=== PATIENT | male | born 1945 | race Caucasian/White ===

== ENCOUNTER 2017-12-23 10:40 | Emergency (ER) | payer OTHER ==
[2017-12-23 11:23] VITALS: RESP 18; TEMP 98; O2SAT 98
--- NOTE | 2017-12-23 11:43 | C.PDOC ---
History Of Present Illness 72 y/o male with history of Alzheimer and Dementia brought to ED by brother for evaluation of rash to back developed last night. Patient states he was unable to sleep secondary to rash and denies fever, chills, sob, chest pain, nausea, vomiting or any other complaints at this time. Time Seen by Provider: 12/23/17 11:00 Chief Complaint (Nursing): Abnormal Skin Integrity History Per: Patient History/Exam Limitations: no limitations Onset/Duration Of Symptoms: Days Current Symptoms Are (Timing): Still Present Past Medical History Vital Signs: Last Vital Signs Temp 98 F 12/23/17 10:53 Pulse 110 H 12/23/17 10:53 Resp 18 12/23/17 10:53 BP 119/77 12/23/17 10:53 Pulse Ox 98 12/23/17 10:53 - Medical History PMH: Alzheimer's Disease, CHF (?more than 20 yrs ago), Emphysema Denies: Chronic Kidney Disease Family History: States: Unknown Family Hx - Social History Hx Alcohol Use: No Hx Substance Use: No - Immunization History Hx Tetanus Toxoid Vaccination: No Hx Influenza Vaccination: No Hx Pneumococcal Vaccination: No Review Of Systems Constitutional: Negative for: Fever, Chills Gastrointestinal: Negative for: Nausea, Vomiting Skin: Positive for: Rash Neurological: Negative for: Weakness, Numbness Physical Exam - Physical Exam Appears: Non-toxic, No Acute Distress Skin: Warm, Dry, Rash (large hives and urticarial rash to back) Head: Atraumatic, Normacephalic Eye(s): bilateral: Normal Inspection Tongue: Normal Appearing, No Swelling Lips: Normal Appearing, No Swelling Throat: Normal, No Erythema, No Exudate Neck: Supple Cardiovascular: Rhythm Regular Respiratory: Normal Breath Sounds, No Rales, No Wheezing Gastrointestinal/Abdominal: Soft, No Tenderness, No Guarding, No Rebound Extremity: Normal ROM, Capillary Refill (<2 seconds), No Deformity Neurological/Psych: Oriented x3, Normal Speech, Normal Cognition, Normal Motor, Normal Sensation ED Course And Treatment O2 Sat by Pulse Oximetry: 98 (RA) Pulse Ox Interpretation: Normal Disposition - Disposition Referrals: Ina Malagon MD [Medical Doctor] - Disposition: HOME/ ROUTINE Disposition Time: 12:52 Condition: STABLE Additional Instructions: Follow up with the medical doctor within 1-2 days without fail. return if worsened. 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 - Scribe Statement The provider has reviewed the documentation as recorded by the Scribphill Olmso All medical record entries made by the Elizabethibphill were at my direction and personally dictated by me. I have reviewed the chart and agree that the record accurately reflects my personal performance of the history, physical exam, medical decision making, and the department course for this patient. I have also personally directed, reviewed, and agree with the discharge instructions and disposition.
[2017-12-23 12:31] VITALS: BP 136/72; PULSE 96
== END 2017-12-23 13:10 | disposition home or self-care (01) ==
LOC: C.ER 10:40
DX: L50.9 Urticaria, unspecified (principal)

== ENCOUNTER 2018-02-05 15:37 | Emergency (ER) | payer OTHER ==
[2018-02-05 15:46] VITALS: RESP 16; O2SAT 95
--- NOTE | 2018-02-05 15:58 | C.PDOC ---
History Of Present Illness 72 yo male c/o "a pill is stuck in my throat." Pt states that he took advil 45 min ago and feels that it is stuck in his throat. Denies chest pain, sob, lip or tongue swelling, difficulty breathing, abdominal pain, vomiting, fever, or rash. Time Seen by Provider: 02/05/18 15:51 Chief Complaint (Nursing): ENT Problem History Per: Patient, Family (brother) History/Exam Limitations: no limitations Onset/Duration Of Symptoms: Mins (45 min) Current Symptoms Are (Timing): Still Present Past Medical History Vital Signs: Last Vital Signs Temp 97.7 F 02/05/18 15:45 Pulse 108 H 02/05/18 15:45 Resp 16 02/05/18 15:45 BP 113/79 02/05/18 15:45 Pulse Ox 95 02/05/18 15:45 - Medical History PMH: Alzheimer's Disease, CHF (?more than 20 yrs ago), Emphysema Denies: Chronic Kidney Disease Family History: States: Unknown Family Hx - Social History Hx Alcohol Use: No (Ex Drinker) Hx Substance Use: No - Immunization History Hx Tetanus Toxoid Vaccination: No Hx Influenza Vaccination: No Hx Pneumococcal Vaccination: No Review Of Systems Except As Marked, All Systems Reviewed And Found Negative. ENT: Positive for: Other (FB sensation in throat) Physical Exam - Physical Exam Appears: Well, Non-toxic, No Acute Distress, Chronically Ill Skin: Normal Color, Warm, Dry Head: Atraumatic, Normacephalic Eye(s): bilateral: Normal Inspection, EOMI Nose: Normal Oral Mucosa: Moist Throat: Normal, No Erythema, No Exudate, No Drooling Neck: Normal, Normal ROM, Supple Chest: Symmetrical Cardiovascular: Rhythm Regular Respiratory: Normal Breath Sounds Gastrointestinal/Abdominal: Normal Exam, Soft, No Tenderness Back: Normal Inspection Extremity: Normal ROM Neurological/Psych: Oriented x3 ED Course And Treatment O2 Sat by Pulse Oximetry: 95 Progress Note: Pt was given water and with the first sip he states that he felt the pill go down and it is not stuck anymore. He drank the rest of the water without difficulty. He states he feels much better and has no complaints. Disposition - Disposition Disposition: HOME/ ROUTINE Disposition Time: 15:55 Condition: STABLE Additional Instructions: Follow up with your doctor in 1 -2 days. Return to ER if symptoms persist or worsen Instructions: Sore Throat, Adult (DC) Forms: [employer] (Singaporean) Print Language: DANISH - Clinical Impression Clinical Impression: Sensation of foreign body in esophagus
[2018-02-05 16:11] VITALS: BP 107/73; PULSE 102; TEMP 97.8
== END 2018-02-05 16:23 | disposition home or self-care (01) ==
LOC: C.ER 15:37
DX: R19.8 Other specified symptoms and signs involving the digestive system and abdomen (principal); G30.9 Alzheimer's disease, unspecified; I50.9 Heart failure, unspecified

== ENCOUNTER 2018-02-12 20:35 | Inpatient (IN) | payer OTHER ==
[2018-02-12] MEDS ORDERED: Iohexol 240 (50 ml) PO STA (22:15)
[2018-02-12] MEDS ORDERED: Iohexol 240 (50 ml) ONE (22:40)
[2018-02-12 22:55] LABS: BASO % 0.2 % (0.0-2.0); EOS % 0.1 % (0.0-4.0); HEMOGLOBIN 13.8 g/dL (12.0-18.0); LYMPH # 0.6 K/uL (1.0-4.3); LYMPH % 4.3 % (20.0-40.0); MEAN CELL VOLUME 89.3 fL (80.0-94.0); MEAN CORPUSCULAR HEMOGLOBIN 29.6 pg (27.0-31.0); MEAN CORPUSCULAR HGB CONC 33.1 g/dL (33.0-37.0); MEAN PLATELET VOLUME 7.6 fL (7.2-11.7); MONO # 0.7 K/uL (0.0-0.8); MONO % 4.7 % (0.0-10.0); NEUT # 13.4 K/uL (1.8-7.0); NEUT % 90.7 % (50.0-75.0); NRBC % 0.1 % (0.0-2.0); PLATELET COUNT 302 K/uL (130-400); RBC 4.69 Mil/uL (4.40-5.90); RED CELL DISTRIBUTION WIDTH 14.9 % (11.5-14.5); WHITE BLOOD COUNT 14.7 K/uL (4.8-10.8)
[2018-02-12] MEDS ORDERED: Piperacillin/Tazobact 3.375 gm 100 ML IV STA (23:00)
--- NOTE | 2018-02-12 23:07 | C.PDOC ---
History Of Present Illness 72 year old male presents to the ER with a complaint of lower abdominal pain for the past 3 days associated with nausea. Patient states the symptoms were initially intermittent but have now worsened. Denies fever, vomiting, change in bowel habits, or difficulty urinating. Time Seen by Provider: 02/12/18 21:57 Chief Complaint (Nursing): Abdominal Pain History Per: Patient History/Exam Limitations: no limitations Onset/Duration Of Symptoms: Days (3), Intermittent Episodes Current Symptoms Are (Timing): Worse Location Of Pain/Discomfort: Other (Lower) Quality Of Discomfort: Unable To Describe Associated Symptoms: Nausea. denies: Fever, Vomiting, Diarrhea, Constipation, Urinary Symptoms Exacerbating Factors: None Alleviating Factors: None Recent travel outside of the [place]: No Past Medical History Reviewed: Historical Data, Nursing Documentation, Vital Signs Vital Signs: Last Vital Signs Temp 97.9 F 02/12/18 21:32 Pulse 113 H 02/12/18 21:32 Resp 19 02/12/18 21:32 BP 102/63 02/12/18 21:32 Pulse Ox 100 02/12/18 21:32 - Medical History PMH: Alzheimer's Disease, CHF (?more than 20 yrs ago), Emphysema Denies: Chronic Kidney Disease Family History: States: Unknown Family Hx - Social History Hx Alcohol Use: No (Ex Drinker) Hx Substance Use: No - Immunization History Hx Tetanus Toxoid Vaccination: No Hx Influenza Vaccination: No Hx Pneumococcal Vaccination: No Review Of Systems Constitutional: Negative for: Fever, Chills Cardiovascular: Negative for: Chest Pain, Palpitations Respiratory: Negative for: Cough, Shortness of Breath Gastrointestinal: Positive for: Nausea, Abdominal Pain. Negative for: Vomiting, Diarrhea, Constipation Genitourinary: Negative for: Other (Difficulty urinating) Neurological: Negative for: Weakness, Numbness Physical Exam - Physical Exam Appears: Non-toxic Skin: Normal Color, Warm, Dry Head: Atraumatic, Normacephalic Eye(s): bilateral: Normal Inspection Oral Mucosa: Moist Neck: Normal, Supple Chest: Symmetrical, No Tenderness Cardiovascular: Rhythm Regular Respiratory: Normal Breath Sounds, No Rales, No Rhonchi, No Wheezing Gastrointestinal/Abdominal: Soft, Tenderness (Lower, mostly midline), No Guarding, No Rebound Back: No CVA Tenderness Neurological/Psych: Oriented x3, Normal Speech ED Course And Treatment - Laboratory Results Result Diagrams: 02/12/18 22:50 02/12/18 22:50 Lab Interpretation: Abnormal (WBC 14.7 with left shift, Na 129, Cl 90, Bili 1.9 Lipase 12) O2 Sat by Pulse Oximetry: 100 (room air) Pulse Ox Interpretation: Normal Progress Note: CT abd/pel, blood work, and urinalysis ordered. Morphine, Zosyn, and Zofran ordered. Disposition - Disposition Disposition Time: 00:42 Condition: STABLE Forms: [employer] (Kittitian) - Clinical Impression Clinical Impression: Abdominal pain - Scribe Statement The provider has reviewed the documentation as recorded by the Scribe Ramírez Lozano All medical record entries made by the Scribe were at my direction and personally dictated by me. I have reviewed the chart and agree that the record accurately reflects my personal performance of the history, physical exam, medical decision making, and the department course for this patient. I have also personally directed, reviewed, and agree with the discharge instructions and disposition. Physician Patient Turnover Patient Signed Over To: Tutu Keen Handoff Comments: Pending CT
[2018-02-12 23:09] LABS: BLOOD UREA NITROGEN 6 mg/dL (9-20); CALCIUM 8.1 mg/dl (8.6-10.4); GFR NON-AFRICAN AMERICAN > 60; LIPASE 12 U/L (23-300)
[2018-02-12 23:11] LABS: ALB/GLOB RATIO 0.8 (1.0-2.1); ALT/SGPT 12 U/L (21-72); AST/SGOT 44 U/L (17-59)
[2018-02-12 23:15] LABS: LYMPHOCYTE 5 % (20-40); MONOCYTE 3 % (0-10); NEUTROPHIL 92 % (50-75); TOTAL CELLS COUNTED 100
[2018-02-12 23:16] LABS: PLATELET ESTIMATE NORMAL (NORMAL)
[2018-02-12] MEDS ORDERED: Iodixanol 320 MG/ML 100 ML BOTTLE IV ONE (23:43)
[2018-02-12 23:47] LABS: SQUAMOUS EPITHIAL < 1 /hpf (0-5); URINE AMORPHOUS SEDIMENT FEW /ul (<OCC); URINE BACTERIA RARE (<OCC); URINE BILIRUBIN NEGATIVE (NEGATIVE); URINE BLOOD NEGATIVE (NEGATIVE); URINE CLARITY Hazy (Clear); URINE COLOR Yellow (YELLOW); URINE GLUCOSE (UA) NORMAL (Normal); URINE LEUKOCYTE ESTERASE NEG Leu/uL (Negative); URINE PROTEIN 1+ mg/dL (NEGATIVE); URINE UROBILINOGEN NORMAL mg/dL (0.2-1.0)
[2018-02-12] MEDS ORDERED: Piperacillin/Tazobact 3.375 gm 100 ML IVPB ONE (23:59)
[2018-02-13] MEDS ORDERED: HYDROmorphone 1 mg/ml ISec IVP PRN (02:42)
[2018-02-13] MEDS ORDERED: Dextrose 5%/0.45% NS 1,000 ML IV SCH (02:45)
[2018-02-13] MEDS ORDERED: Dextrose 5%-0.225% NS 1,000 ML IV ONE (02:59)
--- NOTE | 2018-02-13 05:56 | CP.PCM.CON ---
History of Present Illness - History of Present Illness History of Present Illness: General surgery consult note for Dr. Boothe Consulted for possible cholecystitis HPI limited--patient poor historian Pt is a 72M with PMH of alzheimers and "prostate problem" with 3 days of lower abdominal pain who presented to the ED yesterday. Patient states pain is not associated with eating food. Did not improve with pepto-bismol. Also reports back pain. Denies any nausea, vomiting, diarrhea, fevers, chills, melena, hematochezia, dysuria, hematuria last BM was 2 days ago and was normal in color and caliber, is passing gas. PMH: alzheimers, "prostate problem", emphysema PSH: left shoulder surgery ALL: NKDA Review of Systems - Review of Systems All systems: reviewed and no additional remarkable complaints except (as per HPI) Past Patient History - Past Medical History & Family History Past Medical History?: Yes - Past Social History Smoking Status: Former Smoker - CARDIAC Hx Congestive Heart Failure: Yes (?more than 20 yrs ago) - PULMONARY Hx Emphysema: Yes - NEUROLOGICAL Hx Alzheimer's Disease: Yes - HEENT Hx HEENT Problems: No - RENAL Hx Chronic Kidney Disease: No - ENDOCRINE/METABOLIC Hx Endocrine Disorders: No - HEMATOLOGICAL/ONCOLOGICAL Hx Blood Disorders: No - INTEGUMENTARY Hx Dermatological Problems: No - MUSCULOSKELETAL/RHEUMATOLOGICAL Hx Musculoskeletal Disorders: Yes Hx Falls: Yes Hx Unsteady Gait: Yes - GASTROINTESTINAL Hx Gastrointestinal Disorders: No - GENITOURINARY/GYNECOLOGICAL Hx Genitourinary Disorders: No - PSYCHIATRIC Hx Substance Use: No - SURGICAL HISTORY Hx Surgeries: Yes Hx Orthopedic Surgery: Yes (LEFT ARM) - ANESTHESIA Hx Anesthesia: Yes Hx Anesthesia Reactions: No Hx Malignant Hyperthermia: No Meds Allergies/Adverse Reactions: Allergies Allergy/AdvReac Type Severity Reaction Status Date / Time No Known Allergies Allergy Verified 02/12/18 21:31 - Medications Medications: Current Medications Hydromorphone HCl (Dilaudid) 1 mg IVP Q4H PRN PRN Reason: Pain, moderate (4-7) Last Admin: 02/13/18 05:42 Dose: 1 mg Ceftriaxone Sodium 1 gm/ (Dextrose) 100 mls @ 50 mls/30 min IVPB DAILY VELMA; Protocol Dextrose/Sodium Chloride (Dextrose 5%/0.45% Ns 1000 Ml) 1,000 mls @ 100 mls/hr IV .Q10H VELMA Last Admin: 02/13/18 03:00 Dose: 100 mls/hr Physical Exam - Constitutional Appears: Well, Non-toxic, Agitated - Head Exam Head Exam: ATRAUMATIC, NORMOCEPHALIC - Eye Exam Eye Exam: Normal appearance. absent: Conjunctival injection, Scleral icterus - ENT Exam ENT Exam: Mucous Membranes Moist, Normal Oropharynx - Respiratory Exam Respiratory Exam: NORMAL BREATHING PATTERN. absent: Accessory Muscle Use, Respiratory Distress - Cardiovascular Exam Cardiovascular Exam: RRR - GI/Abdominal Exam GI & Abdominal Exam: Soft, Tenderness (mild tenderness to R and left of umbilicus). absent: Distended, Rebound - Extremities Exam Extremities exam: Negative for: calf tenderness, pedal edema, pedal pulses prese nt - Neurological Exam Neurological exam: Alert, Oriented x3 - Psychiatric Exam Psychiatric exam: Normal Affect, Normal Mood - Skin Skin Exam: Dry, Normal Color, Warm Results - Vital Signs Recent Vital Signs: Last Vital Signs Temp 97.9 F 02/12/18 21:32 Pulse 86 02/13/18 05:01 Resp 30 H 02/13/18 05:01 BP 105/67 02/13/18 05:01 Pulse Ox 100 02/13/18 05:01 - Labs Result Diagrams: 02/13/18 07:18 02/12/18 22:50 Labs: Laboratory Results - last 24 hr 02/12/18 02/12/18 02/12/18 22:15 22:50 22:50 WBC 14.7 H D RBC 4.69 Hgb 13.8 Hct 41.8 MCV 89.3 D MCH 29.6 MCHC 33.1 RDW 14.9 H Plt Count 302 MPV 7.6 Neut % (Auto) 90.7 H Lymph % (Auto) 4.3 L [place] % (Auto) 4.7 Eos % (Auto) 0.1 Baso % (Auto) 0.2 Neut # (Auto) 13.4 H Lymph # (Auto) 0.6 L [place] # (Auto) 0.7 Eos # (Auto) 0.0 Baso # (Auto) 0.0 Neutrophils % (Manual) 92 H Lymphocytes % (Manual) 5 L Monocytes % (Manual) 3 Platelet Estimate Normal RBC Morphology Normal Sodium 129 L Potassium 5.0 Chloride 90 L Carbon Dioxide 27 Anion Gap 16 BUN 6 L Creatinine 0.4 L Est GFR ( Amer) > 60 Est GFR (Non-Af Amer) > 60 Random Glucose 135 H Calcium 8.1 L Total Bilirubin 1.9 H AST 44 ALT 12 L D Alkaline Phosphatase 116 Total Protein 8.8 H Albumin 4.0 Globulin 4.8 H Albumin/Globulin Ratio 0.8 L Lipase 12 L Urine Color Yellow Urine Clarity Hazy Urine pH 7.0 Ur Specific [place] 1.014 Urine Protein 1+ H Urine Glucose (UA) Normal Urine Ketones Negative Urine Blood Negative Urine Nitrate Negative Urine Bilirubin Negative Urine Urobilinogen Normal Ur Leukocyte Esterase Neg Urine WBC (Auto) 3 Urine RBC (Auto) 4 H Ur Squamous Epith Cells < 1 Amorphous Sediment Few H Urine Bacteria Rare Assessment & Plan - Assessment and Plan (Free Text) Assessment: 72M with abdominal pain and cholelithiasis, possible choledocholithiasis Plan: F/U US and MRCP Trend CBC and CMP stool softeners Recommend a GI consult for possible choledocholithiasis further recommendations pending results of tests Encourage ambulation Discussed with Dr. Boothe, who agrees with above Susi Bills, PGY2
[2018-02-13 07:27] LABS: BASO # 0.1 K/uL (0.0-0.2); BASO % 0.8 % (0.0-2.0); EOS % 0.1 % (0.0-4.0); HEMOGLOBIN 12.6 g/dL (12.0-18.0); LYMPH # 0.6 K/uL (1.0-4.3); LYMPH % 4.9 % (20.0-40.0); MEAN CORPUSCULAR HEMOGLOBIN 30.3 pg (27.0-31.0); MEAN CORPUSCULAR HGB CONC 34.1 g/dL (33.0-37.0); MEAN PLATELET VOLUME 7.6 fL (7.2-11.7); MONO # 0.7 K/uL (0.0-0.8); MONO % 5.4 % (0.0-10.0); NEUT % 88.8 % (50.0-75.0); PLATELET COUNT 259 K/uL (130-400); RBC 4.14 Mil/uL (4.40-5.90); RED CELL DISTRIBUTION WIDTH 14.6 % (11.5-14.5); WHITE BLOOD COUNT 12.4 K/uL (4.8-10.8)
[2018-02-13 08:14] LABS: ALB/GLOB RATIO 0.8 (1.0-2.1); ALBUMIN 3.4 g/dL (3.5-5.0); ALT/SGPT 33 U/L (21-72); AST/SGOT 66 U/L (17-59); BILIRUBIN,DIRECT 0.4 mg/dL (0.0-0.4); BLOOD UREA NITROGEN 9 mg/dL (9-20); CALCIUM 7.8 mg/dl (8.6-10.4); GFR NON-AFRICAN AMERICAN > 60
[2018-02-13] MEDS: Sodium Chloride 0.9% 1,000 ML IV SCH ×2 (08:21→21:27)
[2018-02-13 09:12] LABS: BANDS 1 % (0-2); LYMPHOCYTE 6 % (20-40); MONOCYTE 3 % (0-10); NEUTROPHIL 90 % (50-75); PLATELET ESTIMATE NORMAL (NORMAL); TOTAL CELLS COUNTED 100
[2018-02-13] MEDS: POLYETHYLENE GLYCOL 3350 17 GM/Dose PACKET PO SCH (09:15)
[2018-02-13] MEDS ORDERED: cefTRIAXone IV 1 gm in Dextros 1 GM in Dextrose 5% In Water 50 ML IVPB SCH (10:00)
--- NOTE | 2018-02-13 11:00 | US ---
Date of service: 02/13/2018 HISTORY: abdominal pain, cholelithiasis, dilated CBD COMPARISON: No prior ultrasound available for direct comparison. TECHNIQUE: Sonographic evaluation of the right upper quadrant of the abdomen. FINDINGS: Examination markedly limited, technically difficult study. LIVER: Measures 11.8 cm in length. Echogenic liver may be seen in setting of hepatic parenchymal disease or fatty infiltration. No focal hepatic mass identified. The main portal vein appears patent with normal directional flow. No intrahepatic bile duct dilatation. GALLBLADDER: Gallstones. No gallbladder wall thickening or pericholecystic edema. Negative sonographic Lee's sign as assessed by the grid trimmer. COMMON BILE DUCT: Measures 4 mm. PANCREAS: Not well-visualized. RIGHT KIDNEY: Measures approximately 10.1 x 4.6 x 5.0 cm. No obstructing calculus or hydronephrosis identified. AORTA: Not well-visualized. IVC: Not well-visualized. OTHER FINDINGS: None . IMPRESSION: Markedly limited study. Echogenic liver may be seen in setting of hepatic parenchymal disease or fatty infiltration. Cholelithiasis.
--- NOTE | 2018-02-13 11:40 | CT ---
Date of service: 02/13/2018 PROCEDURE: CT Abdomen and Pelvis HISTORY: Abdominal pain. COMPARISON: None. TECHNIQUE: Contiguous axial images of the abdomen and pelvis performed following oral and intravenous injection of approximately 100 cc Visipaque 320. Additional 2D sagittal and coronal reformats generated. Radiation dose: Total exam DLP = 532.01 mGy-cm. This CT exam was performed using one or more of the following dose reduction techniques: Automated exposure control, adjustment of the mA and/or kV according to patient size, and/or use of iterative reconstruction technique. FINDINGS: LOWER THORAX: There are patchy ground-glass opacities and probably some concomitant atelectasis seen in both lung bases including the lingular region. Probable fibrosis and or scarring in the right middle lobe with what appears represent some paraseptal cystic changes; rule out paraseptal emphysema. No evidence of basilar pneumothorax. No significant effusion. Heart size is mildly enlarged. No significant pericardial effusion. Ascending thoracic aorta measures approximately 3.5 cm and descending thoracic aorta measures approximately 2.6 cm. Pulmonary trunk measures approximately 3.0 cm There is a small hiatal hernia with slight wall thickening of distal esophagus likely due to protrusion gastric mucosa. LIVER: Liver exhibits normal size of with mild fatty hepatic infiltration. No obvious masses collections or calcifications. GALLBLADDER AND BILE DUCTS: Gallbladder is moderately distended. Multiple intraluminal gallbladder calculi. There is dilatation of the common bile duct with what appears to represent a very tiny nonobstructing calculus at the junction of the common bile duct and pancreatic duct. PANCREAS: The pancreas is atrophic. Pancreatic duct is visible though does not appear significantly dilated. There is a small approximately 9.8 x 4.3 mm elliptical shaped low-attenuation focus within the posterior inferior aspect of the mid body of the pancreas which is partially exophytic best seen on axial series 3, image number 72 through 75. Hounsfield units in the negative low 30s suggesting fat however the possibility of volume a small cystic lesion with adjacent volume averaging not excluded. Consider follow-up pre and post-contrast MRI of the pancreas could be performed to exclude the possibility of an underlying cyst or possibly cystic neoplasm (benign and/or malignant) which cannot be excluded on this study. SPLEEN: The spleen exhibits normal size and attenuation pattern without mass collection or calcification. Suspect small splenule adjacent to the anterior inferior margin of the main body of the spleen.. ADRENALS: No adrenal lesions. KIDNEYS AND URETERS: The kidneys demonstrate symmetric nephrograms. No evidence of nephrolithiasis or hydronephrosis. No obvious renal masses or collections BLADDER: Urinary bladder is incompletely distended which in part accounts for thick-walled appearance. Muscular hypertrophy presumably contributes. Correlation with urinalysis to exclude cystitis or other intrinsic wall lesion. REPRODUCTIVE: Prostate gland measures approximately 3.3 cm in transverse dimension. APPENDIX: Normal-appearing appendix best seen on coronal sequence image number [id number] and axial series 3 image number [id number]. No periappendiceal inflammatory changes. BOWEL: Evaluation of the bowel is somewhat limited due to incomplete opacification. The stomach is distended with oral contrast material small amount of food debris and moderate amount of air. Visualized loops of small bowel exhibit relatively normal contour and caliber. No evidence of acute mechanical small bowel obstruction. Moderate amount of stool seen within the cecum and proximal ascending colon with moderate amount of air seen throughout the remaining colon. No definitive evidence of abnormal mural wall thickening. 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 PERITONEUM: Unremarkable. No fluid collection. No free air. LYMPH NODES: No significant/bulky adenopathy. VASCULATURE: Unremarkable. No aortic aneurysm. Mild aortic atherosclerotic calcification or mural plaque present. BONES: Diffuse demineralization. Chronic appearing anterior wedge buckling of the posterior cortex. Mild multilevel degenerative spondylosis of the lower thoracic and lumbar spine. OTHER FINDINGS: None. IMPRESSION: Cholelithiasis with dilatation of the common bile duct and what appears represent least 1 nonobstructing tiny calculus within the region of the junction of the common bile duct and pancreatic duct. Gallbladder is distended. Small elliptical shaped low-attenuation focus posterior inferior margin mid body of the atrophic pancreas which exhibits Hounsfield units in the -30 suggesting fat however possibility of a small cystic lesion (benign and/or malignant with surrounding volume averaging artifact cannot be completely excluded. Consider follow-up of pre and post-contrast MRI of the pancreas. The mild fatty hepatic infiltration. Moderate amount of stool seen within the cecum and proximal ascending colon suggesting mild constipation.. Ground-glass opacities and atelectasis both lung bases. Note that this report was placed in PA review folder for follow
[2018-02-13] MEDS ORDERED: Cefepime IV 1 gm in Dextrose 1 GM/50 ML BAG IVPB SCH (14:30)
--- NOTE | 2018-02-13 14:30 | CP.PCM.HP ---
History of Present Illness - History of Present Illness History of Present Illness: COMPREHENSIVE CONSULT HPI Patient is admitted for emergency room complaining of abdominal pain mostly on the lower side. In the emergency room patient had abdominal CT which showed gallstones with no evidence of cholecystitis. The ER physician also informed me that there was a CAT scan done of the chest which showed bronchopneumonia. Currently I cannot locate this study. Patient history of Alzheimers disease and full detailed history is and past history is not available apparently patient has a history of prostate problems. Patient has been having abdominal pain for the last 3 days which is increased in intensity or severity there is no definite nausea vomiting diarrhea or hematemesis or melena PAST HIST. PERSONAL HIST: Smoking. N Alcohol. N Allergy N Travel_- . FAMILY HIST : ROS : Constitutional: Negative for weight change, chills, night sweats, fatigue and usage of assist device. Eyes: Negative for redness, swelling, itching, discharge, vision changes, blurry vision, double vision, glaucoma, cataracts, Ears: Negative for hearing loss, ringing, , tinnitus, vertigo Nose: Negative for rhinorrhea, stuffiness, sniffing, itching, postnasal drip, discoloration, nasal congestion and epistaxis. Throat: Negative for throat clearing, sore throat, hoarseness, difficulty swallowing and difficulty speaking. Respiratory: Negative for cough, , sputum production, chest tightness, wheezing, pleuritic chest pain ,daytime somnolence, chronic cough, hemoptysis, snoring at night, Cardiovascular: Negative for chest pain, palpitations, orthopnea, PND, Edema of legs, leg cramps, angina, claudication, , irregular heartbeat, Neurology: Negative for irritability, muscle weakness, numbness and tingling, seizures, tremors, migraines, slurred speech, syncope, memory loss, mood changes, recurrent headaches Gastrointestinal: Negative for difficulty swallowing, diarrhea, constipation, black stools, rectal bleeding, nausea, flatulence, reflux, poor appetite, changes in bowel habits, Genitourinary: Negative for frequent urination, hematuria, discharge, incontinence, urinary retention, frequent UTI, Psychiatric: Negative for depression, anxiety/panic, suicidal tendencies, Musculoskeletal: Negative for swollen joints, back pain, , neck pain, morning stiffness of joints, . Skin: Negative for rash, ulcers, itching, dry skin and pigmented lesions. P/E: Constitutional: Appears stated age and in no apparent distress. Head: Normocephalic. Ears: External ear canals patent without inflammation. Tympanic membranes intact with normal light reflex and landmark. Eyes: Pupils are central, bilaterally equal, symmetrical and reacts to light with normal movements and no icterus or pallor. Nose: External nares are patent. Mucosa is pink Mouth-Throat: Good general appearance and condition. No post-pharyngeal/oropharyngeal erythema and tonsillar hypertrophy. Good dental hygiene. Neck-Lymphatic: Neck is supple with normal ROM, no thyromegaly, lymph nodes or masses. JVD is normal with no carotid bruit. Lungs: Clear to percussion and auscultation with bilateral normal air entry. Cardiovascular: S1 and S2 are normal with no murmurs, gallops and rub. GI Exam: No hepatomegaly. Abdomen is soft and non-tender. No Organomegaly , masses or hernias are evident and bowel sounds are normal and active. Neurology: Higher function and all cranial nerves intact, with no gross motor or sensory deficit. Superficial and deep reflexes are normal with downwards planters. No cerebellar deficit with normal gait. Musculoskeletal: No tender spots with normal curvature of the spine with no swelling or restricted ROM of the small and large joints. Extremities: Homans sign absent. Intact pulses with no pitting edema, calf tenderness or skin color changes. Skin: No rash, eruptions or abnormal skin pigmentation LAB/RADIOLOGY: ASSESMENT : Acute on chronic gallbladder disease COPD with possible respiratory infection Dementia with Alzheimers PLAN: See orders. Present on Admission - Present on Admission Any Indicators Present on Admission: No Past Patient History - Past Medical History & Family History Past Medical History?: Yes - Past Social History Smoking Status: Former Smoker - CARDIAC Hx Congestive Heart Failure: Yes (?more than 20 yrs ago) - PULMONARY Hx Emphysema: Yes - NEUROLOGICAL Hx Alzheimer's Disease: Yes - HEENT Hx HEENT Problems: No - RENAL Hx Chronic Kidney Disease: No - ENDOCRINE/METABOLIC Hx Endocrine Disorders: No - HEMATOLOGICAL/ONCOLOGICAL Hx Blood Disorders: No - INTEGUMENTARY Hx Dermatological Problems: No - MUSCULOSKELETAL/RHEUMATOLOGICAL Hx Musculoskeletal Disorders: Yes Hx Falls: Yes Hx Unsteady Gait: Yes - GASTROINTESTINAL Hx Gastrointestinal Disorders: No - GENITOURINARY/GYNECOLOGICAL Hx Genitourinary Disorders: No - PSYCHIATRIC Hx Substance Use: No - SURGICAL HISTORY Hx Surgeries: Yes Hx Orthopedic Surgery: Yes (LEFT ARM) - ANESTHESIA Hx Anesthesia: Yes Hx Anesthesia Reactions: No Hx Malignant Hyperthermia: No Meds Allergies/Adverse Reactions: Allergies Allergy/AdvReac Type Severity Reaction Status Date / Time No Known Allergies Allergy Verified 02/12/18 21:31 Results - Vital Signs Recent Vital Signs: Last Vital Signs Temp 98.4 F 02/13/18 08:30 Pulse 89 02/13/18 08:30 Resp 20 02/13/18 08:30 BP 121/72 02/13/18 08:30 Pulse Ox 96 02/13/18 08:30 - Labs Result Diagrams: 02/13/18 07:18 02/13/18 11:30 Labs: Laboratory Results - last 24 hr 02/12/18 02/12/18 02/12/18 22:15 22:50 22:50 WBC 14.7 H D RBC 4.69 Hgb 13.8 Hct 41.8 MCV 89.3 D MCH 29.6 MCHC 33.1 RDW 14.9 H Plt Count 302 MPV 7.6 Neut % (Auto) 90.7 H Lymph % (Auto) 4.3 L [place] % (Auto) 4.7 Eos % (Auto) 0.1 Baso % (Auto) 0.2 Neut # (Auto) 13.4 H Lymph # (Auto) 0.6 L [place] # (Auto) 0.7 Eos # (Auto) 0.0 Baso # (Auto) 0.0 Neutrophils % (Manual) 92 H Band Neutrophils % Lymphocytes % (Manual) 5 L Monocytes % (Manual) 3 Platelet Estimate Normal RBC Morphology Normal Sodium 129 L Potassium 5.0 Chloride 90 L Carbon Dioxide 27 Anion Gap 16 BUN 6 L Creatinine 0.4 L Est GFR ( Amer) > 60 Est GFR (Non-Af Amer) > 60 Random Glucose 135 H Calcium 8.1 L Magnesium Total Bilirubin 1.9 H Direct Bilirubin AST 44 ALT 12 L D Alkaline Phosphatase 116 Total Protein 8.8 H Albumin 4.0 Globulin 4.8 H Albumin/Globulin Ratio 0.8 L Lipase 12 L Urine Color Yellow Urine Clarity Hazy Urine pH 7.0 Ur Specific [place] 1.014 Urine Protein 1+ H Urine Glucose (UA) Normal Urine Ketones Negative Urine Blood Negative Urine Nitrate Negative Urine Bilirubin Negative Urine Urobilinogen Normal Ur Leukocyte Esterase Neg Urine WBC (Auto) 3 Urine RBC (Auto) 4 H Ur Squamous Epith Cells < 1 Amorphous Sediment Few H Urine Bacteria Rare 02/13/18 02/13/18 02/13/18 07:18 07:18 11:30 WBC 12.4 H RBC 4.14 L Hgb 12.6 Hct 36.8 MCV 89.0 MCH 30.3 MCHC 34.1 RDW 14.6 H Plt Count 259 MPV 7.6 Neut % (Auto) 88.8 H Lymph % (Auto) 4.9 L [place] % (Auto) 5.4 Eos % (Auto) 0.1 Baso % (Auto) 0.8 Neut # (Auto) 11.0 H Lymph # (Auto) 0.6 L [place] # (Auto) 0.7 Eos # (Auto) 0.0 Baso # (Auto) 0.1 Neutrophils % (Manual) 90 H Band Neutrophils % 1 Lymphocytes % (Manual) 6 L Monocytes % (Manual) 3 Platelet Estimate Normal RBC Morphology Sodium 127 L Potassium 3.4 L 3.5 L Chloride 89 L Carbon Dioxide 31 H Anion Gap 10 BUN 9 Creatinine 0.4 L Est GFR ( Amer) > 60 Est GFR (Non-Af Amer) > 60 Random Glucose 138 H Calcium 7.8 L Magnesium 1.6 Total Bilirubin 1.9 H Direct Bilirubin 0.4 AST 66 H D ALT 33 Alkaline Phosphatase 156 H D Total Protein 7.4 Albumin 3.4 L Globulin 4.0 H Albumin/Globulin Ratio 0.8 L Lipase Urine Color Urine Clarity Urine pH Ur Specific [place] Urine Protein Urine Glucose (UA) Urine Ketones Urine Blood Urine Nitrate Urine Bilirubin Urine Urobilinogen Ur Leukocyte Esterase Urine WBC (Auto) Urine RBC (Auto) Ur Squamous Epith Cells Amorphous Sediment Urine Bacteria
--- NOTE | 2018-02-13 14:33 | CP.PCM.CON ---
History of Present Illness - History of Present Illness History of Present Illness: HPI: Pt is a 72M with PMH of COPD, alzheimers and "prostate problem" with 3 days of lower abdominal pain who presented to the ED on02/13/18. Patient states pain is not associated with eating food. Did not improve with pepto-bismol. Also reports back pain. Denies any nausea, vomiting, diarrhea, fevers, chills, melena, hematochezia, dysuria, hematuria last BM was 2 days ago and was normal in color and caliber, is passing gas. Patient had leukocytosis on admission with WBC count of more than 14,000. Patient was also noted to have elevated liver function tests . On repeat testing today AST has increased to 66 with ALT of 33 and alkaline phosphatase of 156. Bilirubin is 1.9 unchanged. Patient underwent ultrasound of the gallbladder which showed fatty infiltration of the liver with cholelithiasis. CT scan of the abdomen and pelvis showed gallstones, common bile duct dilated with small stone in the distal common bile duct, possible cystic pancreatic lesion. Infectious disease consultation requested by PMD as CT scan also showed some groundglass opacities and infiltrates. Chest x-ray obtained today shows left middle lobe and left lower lobe alveolar infiltrates with small bilateral pleural effusions. Patient was empirically placed on ceftriaxone 1 g once a day. PATIENT PRESENTLY RESTING IN BED. C/O INTERMITTENT COUGH WITH NO EXPECTORATION. PATIENT DENIES ANY PREVIOUS HISTORY TB. PATIENT DENIES ANY RECENT TRAVEL. PATIENT IS VERY VAGUE ABOUT HIS HISTORY.CONTINUES TO COMPLAIN OF LOWER ABDOMINAL PAIN, MAINLY RLQ/SUPRAPUBIC. PATIENT DENIES ANY DYSURIA OR HEMATURIA. pATIENT IS VOIDING ON HIS OWN SMALL AMOUNTS OF URINE. PMH: alzheimers, "prostate problem", emphysema PSH: left shoulder surgery ALL: NKDA Review of Systems - Constitutional Constitutional: absent: Chills, Fever, Night Sweats - EENT Nose/Mouth/Throat: absent: Nasal Discharge, Mouth Lesions, Sore Throat, Neck P ain - Cardiovascular Cardiovascular: absent: Chest Pain - Respiratory Respiratory: Cough (DRY COUGH INTERMITTENTLY.), Dyspnea on Exertion. absent: Hemoptysis - Gastrointestinal Gastrointestinal: Abdominal Pain (RIGHT LOW QUADRANT AND SUPRAPUBIC.). absent: Constipation, Diarrhea, Nausea, Vomiting - Genitourinary Genitourinary: Voiding Freq/Small Amts. absent: Dysuria - Neurological Neurological: Memory Loss. absent: Headaches - Hematologic/Lymphatic Hematologic: As Per HPI. absent: Lymphadenopathy Past Patient History - Past Medical History & Family History Past Medical History?: Yes - Past Social History Smoking Status: Former Smoker - CARDIAC Hx Congestive Heart Failure: Yes (?more than 20 yrs ago) - PULMONARY Hx Emphysema: Yes - NEUROLOGICAL Hx Alzheimer's Disease: Yes - HEENT Hx HEENT Problems: No - RENAL Hx Chronic Kidney Disease: No - ENDOCRINE/METABOLIC Hx Endocrine Disorders: No - HEMATOLOGICAL/ONCOLOGICAL Hx Blood Disorders: No - INTEGUMENTARY Hx Dermatological Problems: No - MUSCULOSKELETAL/RHEUMATOLOGICAL Hx Musculoskeletal Disorders: Yes Hx Falls: Yes Hx Unsteady Gait: Yes - GASTROINTESTINAL Hx Gastrointestinal Disorders: No - GENITOURINARY/GYNECOLOGICAL Hx Genitourinary Disorders: No - PSYCHIATRIC Hx Substance Use: No - SURGICAL HISTORY Hx Surgeries: Yes Hx Orthopedic Surgery: Yes (LEFT ARM) - ANESTHESIA Hx Anesthesia: Yes Hx Anesthesia Reactions: No Hx Malignant Hyperthermia: No Meds Allergies/Adverse Reactions: Allergies Allergy/AdvReac Type Severity Reaction Status Date / Time No Known Allergies Allergy Verified 02/12/18 21:31 - Medications Medications: Current Medications Docusate Sodium (Colace) 100 mg PO BID [facility] Last Admin: 02/13/18 09:15 Dose: Not Given Sodium Chloride (Sodium Chloride 0.9%) 1,000 mls @ 100 mls/hr IV .Q10H [facility] Last Admin: 02/13/18 08:21 Dose: 100 mls/hr Potassium Chloride (Potassium Chloride 20 Meq/100 Ml) 20 meq in 100 mls @ 50 mls/hr IVPB ONCE ONE Stop: 02/13/18 15:29 Last Admin: 02/13/18 14:00 Dose: 50 mls/hr Cefepime HCl (Maxipime Iv 1 Gm Premix) 1 gm in 50 mls @ 100 mls/hr IVPB Q12H [facility]; Protocol Azithromycin 500 mg/ Sodium (Chloride) 250 mls @ 250 mls/hr IVPB DAILY [facility]; Protocol Influenza Virus Vaccine (Fluzone Quad [id number]) 60 mcg IM .ONCE ONE Stop: 02/15/18 10:01 Pneumococcal Polyvalent Vaccine (Pneumovax 23 Vaccine) 0.5 ml IM .ONCE ONE Stop: 02/15/18 10:01 Polyethylene Glycol (Miralax) 17 gm PO DAILY [facility] Last Admin: 02/13/18 09:15 Dose: Not Given Physical Exam - Constitutional Appears: No Acute Distress, Older Than Stated Age, Cachectic - Head Exam Head Exam: NORMAL INSPECTION - Eye Exam Eye Exam: EOMI, PERRL, Scleral icterus - ENT Exam ENT Exam: Normal Oropharynx - Neck Exam Neck exam: Positive for: Normal Inspection. Negative for: Lymphadenopathy - Respiratory Exam Respiratory Exam: Rhonchi (BILATERAL RHONCHI LEFT-SIDED > LEFT.), NORMAL BREATHING PATTERN - Cardiovascular Exam Cardiovascular Exam: Tachycardia, REGULAR RHYTHM, +S1, +S2 - GI/Abdominal Exam GI & Abdominal Exam: Normal Bowel Sounds, Soft (RIGHT LOW QUADRANT AND SUPR APUBIC REGION.), Tenderness. absent: Guarding (FOX SIGN ABSENT.), Mass - Extremities Exam Extremities exam: Positive for: pedal pulses present. Negative for: calf tenderness, pedal edema - Neurological Exam Neurological exam: Alert, CN II-XII Intact, Oriented x3, Reflexes Normal - Psychiatric Exam Psychiatric exam: Normal Mood - Skin Skin Exam: Normal Color, Warm Results - Vital Signs Recent Vital Signs: Last Vital Signs Temp 98.4 F 02/13/18 08:30 Pulse 89 02/13/18 08:30 Resp 20 02/13/18 08:30 BP 121/72 02/13/18 08:30 Pulse Ox 96 02/13/18 08:30 - Labs Result Diagrams: 02/13/18 07:18 02/13/18 18:36 Labs: Laboratory Results - last 24 hr 02/12/18 02/12/18 02/12/18 22:15 22:50 22:50 WBC 14.7 H D RBC 4.69 Hgb 13.8 Hct 41.8 MCV 89.3 D MCH 29.6 MCHC 33.1 RDW 14.9 H Plt Count 302 MPV 7.6 Neut % (Auto) 90.7 H Lymph % (Auto) 4.3 L [place] % (Auto) 4.7 Eos % (Auto) 0.1 Baso % (Auto) 0.2 Neut # (Auto) 13.4 H Lymph # (Auto) 0.6 L [place] # (Auto) 0.7 Eos # (Auto) 0.0 Baso # (Auto) 0.0 Neutrophils % (Manual) 92 H Band Neutrophils % Lymphocytes % (Manual) 5 L Monocytes % (Manual) 3 Platelet Estimate Normal RBC Morphology Normal Sodium 129 L Potassium 5.0 Chloride 90 L Carbon Dioxide 27 Anion Gap 16 BUN 6 L Creatinine 0.4 L Est GFR ( Amer) > 60 Est GFR (Non-Af Amer) > 60 Random Glucose 135 H Calcium 8.1 L Magnesium Total Bilirubin 1.9 H Direct Bilirubin AST 44 ALT 12 L D Alkaline Phosphatase 116 Total Protein 8.8 H Albumin 4.0 Globulin 4.8 H Albumin/Globulin Ratio 0.8 L Lipase 12 L Urine Color Yellow Urine Clarity Hazy Urine pH 7.0 Ur Specific [place] 1.014 Urine Protein 1+ H Urine Glucose (UA) Normal Urine Ketones Negative Urine Blood Negative Urine Nitrate Negative Urine Bilirubin Negative Urine Urobilinogen Normal Ur Leukocyte Esterase Neg Urine WBC (Auto) 3 Urine RBC (Auto) 4 H Ur Squamous Epith Cells < 1 Amorphous Sediment Few H Urine Bacteria Rare 02/13/18 02/13/18 02/13/18 07:18 07:18 11:30 WBC 12.4 H RBC 4.14 L Hgb 12.6 Hct 36.8 MCV 89.0 MCH 30.3 MCHC 34.1 RDW 14.6 H Plt Count 259 MPV 7.6 Neut % (Auto) 88.8 H Lymph % (Auto) 4.9 L [place] % (Auto) 5.4 Eos % (Auto) 0.1 Baso % (Auto) 0.8 Neut # (Auto) 11.0 H Lymph # (Auto) 0.6 L [place] # (Auto) 0.7 Eos # (Auto) 0.0 Baso # (Auto) 0.1 Neutrophils % (Manual) 90 H Band Neutrophils % 1 Lymphocytes % (Manual) 6 L Monocytes % (Manual) 3 Platelet Estimate Normal RBC Morphology Sodium 127 L Potassium 3.4 L 3.5 L Chloride 89 L Carbon Dioxide 31 H Anion Gap 10 BUN 9 Creatinine 0.4 L Est GFR ( Amer) > 60 Est GFR (Non-Af Amer) > 60 Random Glucose 138 H Calcium 7.8 L Magnesium 1.6 Total Bilirubin 1.9 H Direct Bilirubin 0.4 AST 66 H D ALT 33 Alkaline Phosphatase 156 H D Total Protein 7.4 Albumin 3.4 L Globulin 4.0 H Albumin/Globulin Ratio 0.8 L Lipase Urine Color Urine Clarity Urine pH Ur Specific [place] Urine Protein Urine Glucose (UA) Urine Ketones Urine Blood Urine Nitrate Urine Bilirubin Urine Urobilinogen Ur Leukocyte Esterase Urine WBC (Auto) Urine RBC (Auto) Ur Squamous Epith Cells Amorphous Sediment Urine Bacteria - Imaging and Cardiology Chest x-ray Status: Report reviewed by me (see report) Assessment & Plan (1) Pneumonia Status: Acute (2) Abdominal pain Status: Acute (3) COPD exacerbation Status: Acute (4) Cachexia Status: Acute (5) Cholelithiases Status: Acute (6) Alzheimer disease Status: Acute - Assessment and Plan (Free Text) Plan: PLAN; PANCULTURE. DC IV CEFTRIAXONE. START iv CEFEPIME 1 G EVERY 12 HOURLY 02/13/18. START iv zITHROMAX 500 MG ONCE A DAY DAILY 02/13/18 MRSA SCREEN. ATYPICAL TITERS fOLLOW-UP lftS. GIWORKUP IN PROGRESS. PULMONARY CONSULT CASE DISCUSSED WITH THE STAFF AT LENGTH. SEE ORDERS
--- NOTE | 2018-02-13 14:45 | CP.PCM.CON ---
History of Present Illness - History of Present Illness History of Present Illness: This is a 72 year old man with abdominal pain. Patient was admitted today with a three day history of LLQ pain. The pain was accompanied by nausea but not by vomiting. The pain was unrelated to meals and was not relieved with Pepto-Bismol. He further denies having diarrhea, constipation, melena and rectal bleeding. On evaluationin the ER, he was afebrile and tachycardic (HR 113). There was tenderness to palpation in the lower abdomen in the midline. The WBC count was elevated to 14,700. Liver enzymes were as follows: AST 44 (repeat 66), ALT 12 (33), ALKP 116 (156), and TBILI 1.9 (unchanged). Sonogram showed gallstones. CT scan showed gallstones, dilated CBC, small stone in the distal CBD, possible cystic pancreatic lesion. Patient had colonoscopy 03/07/2017, and two adenomatous polyps were found in the cecum. Review of Systems - Review of Systems All systems: reviewed and no additional remarkable complaints except - Constitutional Constitutional: absent: Chills, Fever - Cardiovascular Cardiovascular: absent: Chest Pain, Palpitations - Respiratory Respiratory: absent: Cough, Dyspnea - Gastrointestinal Gastrointestinal: Abdominal Pain, Nausea. absent: Constipation, Diarrhea, Dysphagia, Heartburn, Hematochezia, Melena, Vomiting - Genitourinary Genitourinary: absent: Difficulty Urinating - Neurological Neurological: absent: Numbness, Weakness Past Patient History - Past Medical History & Family History Past Medical History?: Yes - Past Social History Smoking Status: Former Smoker - CARDIAC Hx Congestive Heart Failure: Yes (?more than 20 yrs ago) - PULMONARY Hx Emphysema: Yes - NEUROLOGICAL Hx Alzheimer's Disease: Yes - HEENT Hx HEENT Problems: No - RENAL Hx Chronic Kidney Disease: No - ENDOCRINE/METABOLIC Hx Endocrine Disorders: No - HEMATOLOGICAL/ONCOLOGICAL Hx Blood Disorders: No - INTEGUMENTARY Hx Dermatological Problems: No - MUSCULOSKELETAL/RHEUMATOLOGICAL Hx Musculoskeletal Disorders: Yes Hx Falls: Yes Hx Unsteady Gait: Yes - GASTROINTESTINAL Hx Gastrointestinal Disorders: No - GENITOURINARY/GYNECOLOGICAL Hx Genitourinary Disorders: No - PSYCHIATRIC Hx Substance Use: No - SURGICAL HISTORY Hx Surgeries: Yes Hx Orthopedic Surgery: Yes (LEFT ARM) - ANESTHESIA Hx Anesthesia: Yes Hx Anesthesia Reactions: No Hx Malignant Hyperthermia: No Meds Allergies/Adverse Reactions: Allergies Allergy/AdvReac Type Severity Reaction Status Date / Time No Known Allergies Allergy Verified 02/12/18 21:31 - Medications Medications: Current Medications Docusate Sodium (Colace) 100 mg PO BID [facility] Last Admin: 02/13/18 09:15 Dose: Not Given Sodium Chloride (Sodium Chloride 0.9%) 1,000 mls @ 100 mls/hr IV .Q10H [facility] Last Admin: 02/13/18 08:21 Dose: 100 mls/hr Potassium Chloride (Potassium Chloride 20 Meq/100 Ml) 20 meq in 100 mls @ 50 mls/hr IVPB ONCE ONE Stop: 02/13/18 15:29 Last Admin: 02/13/18 14:00 Dose: 50 mls/hr Cefepime HCl (Maxipime Iv 1 Gm Premix) 1 gm in 50 mls @ 100 mls/hr IVPB Q12H [facility]; Protocol Azithromycin 500 mg/ Sodium (Chloride) 250 mls @ 250 mls/hr IVPB DAILY [facility]; Protocol Influenza Virus Vaccine (Fluzone Quad [id number]) 60 mcg IM .ONCE ONE Stop: 02/15/18 10:01 Pneumococcal Polyvalent Vaccine (Pneumovax 23 Vaccine) 0.5 ml IM .ONCE ONE Stop: 02/15/18 10:01 Polyethylene Glycol (Miralax) 17 gm PO DAILY [facility] Last Admin: 02/13/18 09:15 Dose: Not Given Physical Exam - Head Exam Head Exam: ATRAUMATIC, NORMOCEPHALIC - Eye Exam Eye Exam: EOMI, PERRL - Neck Exam Neck exam: Negative for: Lymphadenopathy, Thyromegaly - Respiratory Exam Respiratory Exam: NORMAL BREATHING PATTERN. absent: Rales, Rhonchi, Wheezes - Cardiovascular Exam Cardiovascular Exam: REGULAR RHYTHM, +S1, +S2. absent: Gallop, Rubs, Systolic Murmur - GI/Abdominal Exam GI & Abdominal Exam: Normal Bowel Sounds, Soft, Tenderness. absent: Mass, Organomegaly Additional comments: Mild tenderness to palpation in LLQ - Rectal Exam Rectal Exam: Deferred - Extremities Exam Extremities exam: Negative for: calf tenderness Results - Vital Signs Recent Vital Signs: Last Vital Signs Temp 98.4 F 02/13/18 08:30 Pulse 89 02/13/18 08:30 Resp 20 02/13/18 08:30 BP 121/72 02/13/18 08:30 Pulse Ox 96 02/13/18 08:30 - Labs Result Diagrams: 02/13/18 07:18 02/13/18 11:30 Labs: Laboratory Results - last 24 hr 02/12/18 02/12/18 02/12/18 22:15 22:50 22:50 WBC 14.7 H D RBC 4.69 Hgb 13.8 Hct 41.8 MCV 89.3 D MCH 29.6 MCHC 33.1 RDW 14.9 H Plt Count 302 MPV 7.6 Neut % (Auto) 90.7 H Lymph % (Auto) 4.3 L [place] % (Auto) 4.7 Eos % (Auto) 0.1 Baso % (Auto) 0.2 Neut # (Auto) 13.4 H Lymph # (Auto) 0.6 L [place] # (Auto) 0.7 Eos # (Auto) 0.0 Baso # (Auto) 0.0 Neutrophils % (Manual) 92 H Band Neutrophils % Lymphocytes % (Manual) 5 L Monocytes % (Manual) 3 Platelet Estimate Normal RBC Morphology Normal Sodium 129 L Potassium 5.0 Chloride 90 L Carbon Dioxide 27 Anion Gap 16 BUN 6 L Creatinine 0.4 L Est GFR ( Amer) > 60 Est GFR (Non-Af Amer) > 60 Random Glucose 135 H Calcium 8.1 L Magnesium Total Bilirubin 1.9 H Direct Bilirubin AST 44 ALT 12 L D Alkaline Phosphatase 116 Total Protein 8.8 H Albumin 4.0 Globulin 4.8 H Albumin/Globulin Ratio 0.8 L Lipase 12 L Urine Color Yellow Urine Clarity Hazy Urine pH 7.0 Ur Specific [place] 1.014 Urine Protein 1+ H Urine Glucose (UA) Normal Urine Ketones Negative Urine Blood Negative Urine Nitrate Negative Urine Bilirubin Negative Urine Urobilinogen Normal Ur Leukocyte Esterase Neg Urine WBC (Auto) 3 Urine RBC (Auto) 4 H Ur Squamous Epith Cells < 1 Amorphous Sediment Few H Urine Bacteria Rare 02/13/18 02/13/18 02/13/18 07:18 07:18 11:30 WBC 12.4 H RBC 4.14 L Hgb 12.6 Hct 36.8 MCV 89.0 MCH 30.3 MCHC 34.1 RDW 14.6 H Plt Count 259 MPV 7.6 Neut % (Auto) 88.8 H Lymph % (Auto) 4.9 L [place] % (Auto) 5.4 Eos % (Auto) 0.1 Baso % (Auto) 0.8 Neut # (Auto) 11.0 H Lymph # (Auto) 0.6 L [place] # (Auto) 0.7 Eos # (Auto) 0.0 Baso # (Auto) 0.1 Neutrophils % (Manual) 90 H Band Neutrophils % 1 Lymphocytes % (Manual) 6 L Monocytes % (Manual) 3 Platelet Estimate Normal RBC Morphology Sodium 127 L Potassium 3.4 L 3.5 L Chloride 89 L Carbon Dioxide 31 H Anion Gap 10 BUN 9 Creatinine 0.4 L Est GFR ( Amer) > 60 Est GFR (Non-Af Amer) > 60 Random Glucose 138 H Calcium 7.8 L Magnesium 1.6 Total Bilirubin 1.9 H Direct Bilirubin 0.4 AST 66 H D ALT 33 Alkaline Phosphatase 156 H D Total Protein 7.4 Albumin 3.4 L Globulin 4.0 H Albumin/Globulin Ratio 0.8 L Lipase Urine Color Urine Clarity Urine pH Ur Specific [place] Urine Protein Urine Glucose (UA) Urine Ketones Urine Blood Urine Nitrate Urine Bilirubin Urine Urobilinogen Ur Leukocyte Esterase Urine WBC (Auto) Urine RBC (Auto) Ur Squamous Epith Cells Amorphous Sediment Urine Bacteria Assessment & Plan (1) Abdominal pain Assessment and Plan: Patient clearly localizes pain to the LLQ. However, CT scan does not reveal any pathology in this area. He does have findings in the RUQ: gallstones, dilated CBD, small CBD stone, pancreatic cystic lesion. Agree with plans for MRCP. Follow liver enzymes. Will request a second opinion from the interventional endoscopist a r collections rep, Dr. Ch. Status: Acute
--- NOTE | 2018-02-13 16:14 | RAD ---
Date of service: 02/13/2018 HISTORY: pneumonia COMPARISON: 04/30/2015. TECHNIQUE: Chest PA and lateral FINDINGS: LUNGS: Chronic appearing right lower lobe atelectasis. There are also patchy interstitial infiltrate and probably alveolar-type infiltrates in the left mid to lower lung field the latter of which appear more confluent in the lower lung field. Questionable small bilateral effusions and/or pleural thickening PLEURA: As above. No pneumothorax apparent. CARDIOVASCULAR: Mild aortic atherosclerotic calcification present. Normal cardiac size. OSSEOUS STRUCTURES: No significant abnormalities. VISUALIZED UPPER ABDOMEN: Normal. OTHER FINDINGS: None. IMPRESSION: Chronic appearing right lower lobe atelectasis. There are also patchy interstitial infiltrate and probably alveolar-type infiltrates in the left mid to lower lung field the latter of which appear more confluent in the lower lung field. Questionable small bilateral effusions and/or pleural thickening
[2018-02-13] MEDS: Cefepime IV 1 gm in Dextrose 1 GM/50 ML BAG IVPB SCH (17:56)
[2018-02-13 19:02] LABS: ALB/GLOB RATIO 0.9 (1.0-2.1); ALBUMIN 3.5 g/dL (3.5-5.0); ALT/SGPT 30 U/L (21-72); AST/SGOT 47 U/L (17-59); BLOOD UREA NITROGEN 9 mg/dL (9-20); GFR NON-AFRICAN AMERICAN > 60
[2018-02-13 19:05] LABS: PROTHROMBIN TIME 21.9 SECONDS (9.7-12.2)
--- NOTE | 2018-02-13 19:15 | CP.PCM.CON ---
History of Present Illness - History of Present Illness History of Present Illness: CHART REVIEWED. PT SEEN AND EXAMINED. 72 YO HISP MALE WITH A HX COPD, DEMENTIA, ADM 02/13/18 WITH INCREASING MOD INTERMITT. LOWER ABD PAIN X 3 DAYS., +NAUSEA NO VOMITING, NO DIARRHEA. NO COUGH NO SOB. QUIT SMOKING YRS AGO. NO INHALERS. PT NONAMBULATORY. NO FURTHER HX AVAILABLE. PT CONFUSED. Review of Systems - Review of Systems All systems: reviewed and no additional remarkable complaints except - Constitutional Constitutional: Malaise - EENT Eyes: absent: Change in Vision Nose/Mouth/Throat: absent: Nasal Congestion - Cardiovascular Cardiovascular: absent: Chest Pain - Respiratory Respiratory: absent: Cough, Dyspnea - Gastrointestinal Gastrointestinal: Abdominal Pain, Nausea - Genitourinary Genitourinary: absent: Difficulty Urinating - Musculoskeletal Musculoskeletal: Atrophy - Integumentary Integumentary: absent: Rash - Neurological Neurological: Confusion - Psychiatric Psychiatric: Confusion - Endocrine Endocrine: absent: Change in Body Appearance - Hematologic/Lymphatic Hematologic: absent: Easy Bleeding Past Patient History - Past Medical History & Family History Past Medical History?: Yes Past Family History: Reviewed and not pertinent - Past Social History Smoking Status: Former Smoker Alcohol: None - CARDIAC Hx Congestive Heart Failure: Yes (?more than 20 yrs ago) - PULMONARY Hx Emphysema: Yes - NEUROLOGICAL Hx Alzheimer's Disease: Yes - HEENT Hx HEENT Problems: No - RENAL Hx Chronic Kidney Disease: No - ENDOCRINE/METABOLIC Hx Endocrine Disorders: No - HEMATOLOGICAL/ONCOLOGICAL Hx Blood Disorders: No - INTEGUMENTARY Hx Dermatological Problems: No - MUSCULOSKELETAL/RHEUMATOLOGICAL Hx Musculoskeletal Disorders: Yes Hx Falls: Yes Hx Unsteady Gait: Yes - GASTROINTESTINAL Hx Gastrointestinal Disorders: No - GENITOURINARY/GYNECOLOGICAL Hx Genitourinary Disorders: No - PSYCHIATRIC Hx Substance Use: No - SURGICAL HISTORY Hx Surgeries: Yes Hx Orthopedic Surgery: Yes (LEFT ARM) - ANESTHESIA Hx Anesthesia: Yes Hx Anesthesia Reactions: No Hx Malignant Hyperthermia: No Meds Allergies/Adverse Reactions: Allergies Allergy/AdvReac Type Severity Reaction Status Date / Time No Known Allergies Allergy Verified 02/12/18 21:31 - Medications Medications: Current Medications Docusate Sodium (Colace) 100 mg PO BID [facility] Last Admin: 02/13/18 17:12 Dose: Not Given Sodium Chloride (Sodium Chloride 0.9%) 1,000 mls @ 100 mls/hr IV .Q10H [facility] Last Admin: 02/13/18 08:21 Dose: 100 mls/hr Azithromycin 500 mg/ Sodium (Chloride) 250 mls @ 250 mls/hr IVPB DAILY [facility]; Protocol Cefepime HCl (Maxipime Iv 1 Gm Premix) 1 gm in 50 mls @ 100 mls/hr IVPB 0400,1600 [facility]; Protocol Last Admin: 02/13/18 17:56 Dose: 100 mls/hr Influenza Virus Vaccine (Fluzone Quad [id number]) 60 mcg IM .ONCE ONE Stop: 02/15/18 10:01 Morphine Sulfate (Morphine) 2 mg IVP Q6 PRN PRN Reason: Pain, severe (8-10) Last Admin: 02/13/18 17:10 Dose: 2 mg Pneumococcal Polyvalent Vaccine (Pneumovax 23 Vaccine) 0.5 ml IM .ONCE ONE Stop: 02/15/18 10:01 Polyethylene Glycol (Miralax) 17 gm PO DAILY [facility] Last Admin: 02/13/18 09:15 Dose: Not Given Physical Exam - Constitutional Appears: Cachectic, Chronically Ill - Head Exam Head Exam: ATRAUMATIC, NORMOCEPHALIC - Eye Exam Eye Exam: EOMI, Normal appearance - ENT Exam ENT Exam: Mucous Membranes Dry - Neck Exam Neck exam: Positive for: Normal Inspection - Respiratory Exam Respiratory Exam: Decreased Breath Sounds. absent: Wheezes, Respiratory D istress - Cardiovascular Exam Cardiovascular Exam: RRR, +S1, +S2 - GI/Abdominal Exam GI & Abdominal Exam: Soft - Rectal Exam Rectal Exam: Deferred - Extremities Exam Extremities exam: Negative for: calf tenderness - Back Exam Back exam: absent: CVA tenderness (L), CVA tenderness (R) - Neurological Exam Neurological exam: Alert, CN II-XII Intact Additional comments: CONFUSED. - Psychiatric Exam Psychiatric exam: Normal Mood Results - Vital Signs Recent Vital Signs: Last Vital Signs Temp 99.4 F 02/13/18 16:00 Pulse 94 H 02/13/18 16:00 Resp 20 02/13/18 16:00 BP 116/78 02/13/18 16:00 Pulse Ox 98 02/13/18 16:00 - Labs Result Diagrams: 02/24/18 06:24 02/24/18 06:24 Labs: Laboratory Results - last 24 hr 11/02/12/18 02/12/18 22:15 22:50 22:50 WBC 14.7 H D RBC 4.69 Hgb 13.8 Hct 41.8 MCV 89.3 D MCH 29.6 MCHC 33.1 RDW 14.9 H Plt Count 302 MPV 7.6 Neut % (Auto) 90.7 H Lymph % (Auto) 4.3 L [place] % (Auto) 4.7 Eos % (Auto) 0.1 Baso % (Auto) 0.2 Neut # (Auto) 13.4 H Lymph # (Auto) 0.6 L Mobile # (Auto) 0.7 Eos # (Auto) 0.0 Baso # (Auto) 0.0 Neutrophils % (Manual) 92 H Band Neutrophils % Lymphocytes % (Manual) 5 L Monocytes % (Manual) 3 Platelet Estimate Normal RBC Morphology Normal PT INR APTT Sodium 129 L Potassium 5.0 Chloride 90 L Carbon Dioxide 27 Anion Gap 16 BUN 6 L Creatinine 0.4 L Est GFR ( Amer) > 60 Est GFR (Non-Af Amer) > 60 Random Glucose 135 H Calcium 8.1 L Magnesium Total Bilirubin 1.9 H Direct Bilirubin AST 44 ALT 12 L D Alkaline Phosphatase 116 Total Protein 8.8 H Albumin 4.0 Globulin 4.8 H Albumin/Globulin Ratio 0.8 L Lipase 12 L Urine Color Yellow Urine Clarity Hazy Urine pH 7.0 Ur Specific [place] 1.014 Urine Protein 1+ H Urine Glucose (UA) Normal Urine Ketones Negative Urine Blood Negative Urine Nitrate Negative Urine Bilirubin Negative Urine Urobilinogen Normal Ur Leukocyte Esterase Neg Urine WBC (Auto) 3 Urine RBC (Auto) 4 H Ur Squamous Epith Cells < 1 Amorphous Sediment Few H Urine Bacteria Rare 02/13/18 02/13/18 02/13/18 07:18 07:18 11:30 WBC 12.4 H RBC 4.14 L Hgb 12.6 Hct 36.8 MCV 89.0 MCH 30.3 MCHC 34.1 RDW 14.6 H Plt Count 259 MPV 7.6 Neut % (Auto) 88.8 H Lymph % (Auto) 4.9 L [place] % (Auto) 5.4 Eos % (Auto) 0.1 Baso % (Auto) 0.8 Neut # (Auto) 11.0 H Lymph # (Auto) 0.6 L Mobile # (Auto) 0.7 Eos # (Auto) 0.0 Baso # (Auto) 0.1 Neutrophils % (Manual) 90 H Band Neutrophils % 1 Lymphocytes % (Manual) 6 L Monocytes % (Manual) 3 Platelet Estimate Normal RBC Morphology PT INR APTT Sodium 127 L Potassium 3.4 L 3.5 L Chloride 89 L Carbon Dioxide 31 H Anion Gap 10 BUN 9 Creatinine 0.4 L Est GFR ( Amer) > 60 Est GFR (Non-Af Amer) > 60 Random Glucose 138 H Calcium 7.8 L Magnesium 1.6 Total Bilirubin 1.9 H Direct Bilirubin 0.4 AST 66 H D ALT 33 Alkaline Phosphatase 156 H D Total Protein 7.4 Albumin 3.4 L Globulin 4.0 H Albumin/Globulin Ratio 0.8 L Lipase Urine Color Urine Clarity Urine pH Ur Specific [place] Urine Protein Urine Glucose (UA) Urine Ketones Urine Blood Urine Nitrate Urine Bilirubin Urine Urobilinogen Ur Leukocyte Esterase Urine WBC (Auto) Urine RBC (Auto) Ur Squamous Epith Cells Amorphous Sediment Urine Bacteria 02/13/18 02/13/18 18:36 18:36 WBC RBC Hgb Hct MCV MCH MCHC RDW Plt Count MPV Neut % (Auto) Lymph % (Auto) Mobile % (Auto) Eos % (Auto) Baso % (Auto) Neut # (Auto) Lymph # (Auto) Mobile # (Auto) Eos # (Auto) Baso # (Auto) Neutrophils % (Manual) Band Neutrophils % Lymphocytes % (Manual) Monocytes % (Manual) Platelet Estimate RBC Morphology PT 21.9 H INR 2.0 APTT 44 H Sodium 127 L Potassium 4.5 Chloride 89 L Carbon Dioxide 32 H Anion Gap 11 BUN 9 Creatinine 0.5 L Est GFR ( Amer) > 60 Est GFR (Non-Af Amer) > 60 Random Glucose 104 Calcium 8.0 L Magnesium Total Bilirubin 2.0 H Direct Bilirubin AST 47 ALT 30 Alkaline Phosphatase 155 H Total Protein 7.7 Albumin 3.5 Globulin 4.1 H Albumin/Globulin Ratio 0.9 L Lipase Urine Color Urine Clarity Urine pH Ur Specific [place] Urine Protein Urine Glucose (UA) Urine Ketones Urine Blood Urine Nitrate Urine Bilirubin Urine Urobilinogen Ur Leukocyte Esterase Urine WBC (Auto) Urine RBC (Auto) Ur Squamous Epith Cells Amorphous Sediment Urine Bacteria Assessment & Plan (1) Alzheimer disease Status: Acute (2) Cholelithiases Status: Acute (3) COPD exacerbation Status: Acute (4) Abdominal pain Status: Acute (5) Pneumonia Status: Acute (6) Cachexia Status: Acute - Assessment and Plan (Free Text) Assessment: 72 YO MALE WITH A HX MULT MED PROBS ADM WITH ABDOM PAIN +CHOLELITHIASIS NOTED, +CBD STONE,. +LEFT PNA. R/O SEPSIS. CXR REVIEWED. CONT EMPIRIC AB. PULM TOILET WITH NEB BD., MONITOR O2 SAT. GI W/U IN PROGRESS. GI/DVT PROPHYLAXIS. PROG POOR. DISCUSSED WITH STAFF AT LENGTH.
[2018-02-13] MEDS: Albuterol-Ipratrop 3 mg / 0.5 (3 ml) UD INH SCH (21:28)
[2018-02-14] MEDS: Albuterol-Ipratrop 3 mg / 0.5 (3 ml) UD INH SCH ×4 (01:44→20:23)
[2018-02-14] MEDS: Cefepime IV 1 gm in Dextrose 1 GM/50 ML BAG IVPB SCH ×2 (03:10→16:59)
[2018-02-14 07:20] LABS: BASO # 0.1 K/uL (0.0-0.2); BASO % 0.6 % (0.0-2.0); EOS % 0.1 % (0.0-4.0); HEMOGLOBIN 12.2 g/dL (12.0-18.0); LYMPH # 0.6 K/uL (1.0-4.3); LYMPH % 4.2 % (20.0-40.0); MEAN CELL VOLUME 89.2 fL (80.0-94.0); MEAN CORPUSCULAR HEMOGLOBIN 29.8 pg (27.0-31.0); MEAN CORPUSCULAR HGB CONC 33.4 g/dL (33.0-37.0); MONO # 0.9 K/uL (0.0-0.8); MONO % 6.2 % (0.0-10.0); NEUT # 13.4 K/uL (1.8-7.0); NEUT % 88.9 % (50.0-75.0); PLATELET COUNT 264 K/uL (130-400); RED CELL DISTRIBUTION WIDTH 14.7 % (11.5-14.5)
[2018-02-14 07:51] LABS: ALB/GLOB RATIO 0.7 (1.0-2.1); ALT/SGPT 29 U/L (21-72); AST/SGOT 36 U/L (17-59); BILIRUBIN,DIRECT 0.3 mg/dL (0.0-0.4); BLOOD UREA NITROGEN 8 mg/dL (9-20); CALCIUM 7.6 mg/dl (8.6-10.4); GFR NON-AFRICAN AMERICAN > 60
[2018-02-14 08:39] LABS: LYMPHOCYTE 7 % (20-40); MONOCYTE 6 % (0-10); NEUTROPHIL 87 % (50-75); PLATELET ESTIMATE NORMAL (NORMAL); TOTAL CELLS COUNTED 100
[2018-02-14] MEDS: Sodium Chloride 0.9% 1,000 ML IV SCH ×2 (09:00→14:00)
[2018-02-14 09:54] LABS: ERYTHROCYTE SEDIMENTATION RATE 95 mm/hr (0-15)
[2018-02-14] MEDS: POLYETHYLENE GLYCOL 3350 17 GM/Dose PACKET PO SCH (10:20)
[2018-02-14] MEDS: Azithromycin 500 MG in Sodium Chloride 0.9% 250 ML IVPB SCH (10:28)
--- NOTE | 2018-02-14 11:12 | CP.PCM.PN ---
Subjective - Date & Time of Evaluation Date of Evaluation: 02/14/18 Time of Evaluation: 09:00 - Subjective Subjective: Surgery: Dr. Boothe Pt seen and examined. No acute overnight events. Pt states he feels ok, denies abdominal pain at this time. Denies any episode of nausea/vomiting. Denies fevers/chills. Objective - Vital Signs/Intake and Output Vital Signs (last 24 hours): Temp Pulse Resp BP Pulse Ox 98.9 F 101 H 20 114/72 96 02/13/18 23:24 02/13/18 23:24 02/13/18 23:24 02/13/18 23:24 02/13/18 23:24 Intake and Output: 02/14/18 02/14/18 06:59 18:59 Intake Total 1650 Output Total 600 Balance 1050 - Medications Medications: Current Medications Albuterol/Ipratropium (Duoneb 3 Mg/0.5 Mg (3 Ml) Ud) 3 ml INH RQ6 [facility] Last Admin: 02/14/18 09:33 Dose: Not Given Docusate Sodium (Colace) 100 mg PO BID [facility] Last Admin: 02/13/18 17:12 Dose: Not Given Sodium Chloride (Sodium Chloride 0.9%) 1,000 mls @ 100 mls/hr IV .Q10H [facility] Last Admin: 02/13/18 21:27 Dose: 100 mls/hr Azithromycin 500 mg/ Sodium (Chloride) 250 mls @ 250 mls/hr IVPB DAILY [facility]; Protocol Last Admin: 02/14/18 10:28 Dose: 250 mls/hr Cefepime HCl (Maxipime Iv 1 Gm Premix) 1 gm in 50 mls @ 100 mls/hr IVPB 0400,1600 [facility]; Protocol Last Admin: 02/14/18 03:10 Dose: 100 mls/hr Influenza Virus Vaccine (Fluzone Quad [id number]) 60 mcg IM .ONCE ONE Stop: 02/15/18 10:01 Morphine Sulfate (Morphine) 2 mg IVP Q6 PRN PRN Reason: Pain, severe (8-10) Last Admin: 02/14/18 02:55 Dose: 2 mg Pneumococcal Polyvalent Vaccine (Pneumovax 23 Vaccine) 0.5 ml IM .ONCE ONE Stop: 02/15/18 10:01 Polyethylene Glycol (Miralax) 17 gm PO DAILY [facility] Last Admin: 02/13/18 09:15 Dose: Not Given - Labs Labs: 02/14/18 07:11 02/14/18 07:11 PT 21.9 SECONDS (9.7-12.2) H 02/13/18 18:36 INR 2.0 02/13/18 18:36 APTT 44 SECONDS (21-34) H 02/13/18 18:36 - Constitutional Appears: Well, No Acute Distress - Head Exam Head Exam: ATRAUMATIC, NORMOCEPHALIC - ENT Exam ENT Exam: Mucous Membranes Moist - Respiratory Exam Respiratory Exam: NORMAL BREATHING PATTERN - Cardiovascular Exam Cardiovascular Exam: RRR - GI/Abdominal Exam GI & Abdominal Exam: Soft. absent: Distended, Tenderness - Neurological Exam Neurological Exam: Alert, Awake - Skin Skin Exam: Dry, Warm Assessment and Plan - Assessment and Plan (Free Text) Assessment: 72M with cholecystitis; r/o choledocholithiasis Plan: - pt unable to tolerate MRCP & a HIDA was obtained instead - will f/u HIDA - cont to trend Tbili and other liver enzymes - plan for OR next week once choledocholithiasis ruled out - d/w Dr. Shyann Le
--- NOTE | 2018-02-14 12:43 | NM ---
Date of service: 02/14/2018 PROCEDURE: Nuclear Medicine Hepatobiliary Scan HISTORY: Gallstones, cystic duct obstruction COMPARISON: February 13, 2018. Abdominal ultrasound TECHNIQUE: 6.1 mCi of technetium 99m Mebrofenin was administered intravenously. Planar images of the abdomen were obtained at 5 min intervals to 60 mins. Delayed images were also obtained. FINDINGS: LIVER: Timely and homogeneous COMMON BILE DUCT: identified at 10 mins. GALLBLADDER: Not visible at 03:00 hours. SMALL BOWEL: Identified at 25 mins. IMPRESSION: Abnormal hepatobiliary Scan. The cystic duct is occluded, presumptive evidence for acute cholecystitis.
--- NOTE | 2018-02-14 14:17 | CP.PCM.PN ---
Subjective - Date & Time of Evaluation Date of Evaluation: 02/14/18 Time of Evaluation: 14:15 - Subjective Subjective: Patient has periods of confusion and disorientation. Patient is afebrile and vital signs are stable Review of system was not possible HIDA scan shows no gallbladder visualization suggesting acute cholecystitis. We will reach out to surgical service for further evaluation and surgery. Continue IV antibiotics for pneumonia Objective - Vital Signs/Intake and Output Vital Signs (last 24 hours): Temp Pulse Resp BP Pulse Ox 98.9 F 101 H 20 114/72 96 02/13/18 23:24 02/13/18 23:24 02/13/18 23:24 02/13/18 23:24 02/13/18 23:24 Intake and Output: 02/14/18 02/14/18 11:59 23:59 Intake Total 800 Balance 800 - Medications Medications: Current Medications Albuterol/Ipratropium (Duoneb 3 Mg/0.5 Mg (3 Ml) Ud) 3 ml INH RQ6 [facility] Last Admin: 02/14/18 09:33 Dose: Not Given Docusate Sodium (Colace) 100 mg PO BID [facility] Last Admin: 02/14/18 10:20 Dose: 100 mg Sodium Chloride (Sodium Chloride 0.9%) 1,000 mls @ 100 mls/hr IV .Q10H [facility] Last Admin: 02/14/18 09:00 Dose: 100 mls/hr Azithromycin 500 mg/ Sodium (Chloride) 250 mls @ 250 mls/hr IVPB DAILY [facility]; Protocol Last Admin: 02/14/18 10:28 Dose: 250 mls/hr Cefepime HCl (Maxipime Iv 1 Gm Premix) 1 gm in 50 mls @ 100 mls/hr IVPB 0400,1600 [facility]; Protocol Last Admin: 02/14/18 03:10 Dose: 100 mls/hr Influenza Virus Vaccine (Fluzone Quad [id number]) 60 mcg IM .ONCE ONE Stop: 02/15/18 10:01 Morphine Sulfate (Morphine) 2 mg IVP Q6 PRN PRN Reason: Pain, severe (8-10) Last Admin: 02/14/18 02:55 Dose: 2 mg Pantoprazole Sodium (Protonix Inj) 40 mg IVP DAILY [facility] Pneumococcal Polyvalent Vaccine (Pneumovax 23 Vaccine) 0.5 ml IM .ONCE ONE Stop: 02/15/18 10:01 Polyethylene Glycol (Miralax) 17 gm PO DAILY [facility] Last Admin: 02/14/18 10:20 Dose: 17 gm - Labs Labs: 02/14/18 07:11 02/14/18 07:11 PT 21.9 SECONDS (9.7-12.2) H 02/13/18 18:36 INR 2.0 02/13/18 18:36 APTT 44 SECONDS (21-34) H 02/13/18 18:36
--- NOTE | 2018-02-14 14:26 | CP.PCM.PN ---
Subjective - Date & Time of Evaluation Date of Evaluation: 02/14/18 Time of Evaluation: 14:26 - Subjective Subjective: AFEBRILE, AWAKE, FEELING BETTER. DENIES COUGH/OR SOB. STATES ABDOMINAL PAIN IS IMPROVED. HIDA SCAN NOTED -ACUTE CHOLYCYSTITIS ALL CULTURES -VE TO DATE Objective - Vital Signs/Intake and Output Vital Signs (last 24 hours): Temp Pulse Resp BP Pulse Ox 98.9 F 101 H 20 114/72 96 02/13/18 23:24 02/13/18 23:24 02/13/18 23:24 02/13/18 23:24 02/13/18 23:24 Intake and Output: 02/14/18 02/14/18 06:59 18:59 Intake Total 1650 Output Total 600 Balance 1050 - Medications Medications: Current Medications Albuterol/Ipratropium (Duoneb 3 Mg/0.5 Mg (3 Ml) Ud) 3 ml INH RQ6 [facility] Last Admin: 02/14/18 09:33 Dose: Not Given Docusate Sodium (Colace) 100 mg PO BID [facility] Last Admin: 02/14/18 10:20 Dose: 100 mg Sodium Chloride (Sodium Chloride 0.9%) 1,000 mls @ 100 mls/hr IV .Q10H [facility] Last Admin: 02/14/18 09:00 Dose: 100 mls/hr Azithromycin 500 mg/ Sodium (Chloride) 250 mls @ 250 mls/hr IVPB DAILY [facility]; Protocol Last Admin: 02/14/18 10:28 Dose: 250 mls/hr Cefepime HCl (Maxipime Iv 1 Gm Premix) 1 gm in 50 mls @ 100 mls/hr IVPB 0400,1600 [facility]; Protocol Last Admin: 02/14/18 03:10 Dose: 100 mls/hr Influenza Virus Vaccine (Fluzone Quad [id number]) 60 mcg IM .ONCE ONE Stop: 02/15/18 10:01 Morphine Sulfate (Morphine) 2 mg IVP Q6 PRN PRN Reason: Pain, severe (8-10) Last Admin: 02/14/18 02:55 Dose: 2 mg Pantoprazole Sodium (Protonix Inj) 40 mg IVP DAILY [facility] Pneumococcal Polyvalent Vaccine (Pneumovax 23 Vaccine) 0.5 ml IM .ONCE ONE Stop: 02/15/18 10:01 Polyethylene Glycol (Miralax) 17 gm PO DAILY [facility] Last Admin: 02/14/18 10:20 Dose: 17 gm - Labs Labs: 02/14/18 07:11 02/14/18 07:11 PT 21.9 SECONDS (9.7-12.2) H 02/13/18 18:36 INR 2.0 02/13/18 18:36 APTT 44 SECONDS (21-34) H 02/13/18 18:36 - Constitutional Appears: No Acute Distress, Cachectic, Chronically Ill - Head Exam Head Exam: NORMAL INSPECTION - Eye Exam Eye Exam: EOMI, PERRL - ENT Exam ENT Exam: Normal Oropharynx - Neck Exam Neck Exam: Normal Inspection - Respiratory Exam Respiratory Exam: Decreased Breath Sounds, NORMAL BREATHING PATTERN - Cardiovascular Exam Cardiovascular Exam: REGULAR RHYTHM, +S1, +S2 - GI/Abdominal Exam GI & Abdominal Exam: Soft, Tenderness (MILD TENDERNESS ON RUQ ON PALPATION.), Normal Bowel Sounds. absent: Distended, Rebound - Extremities Exam Extremities Exam: Pedal Edema (1+). absent: Calf Tenderness - Neurological Exam Neurological Exam: Alert, Awake, CN II-XII Intact, Reflexes Normal - Psychiatric Exam Psychiatric exam: Normal Mood - Skin Skin Exam: Normal Color, Warm Assessment and Plan (1) Pneumonia Status: Acute (2) Abdominal pain Status: Acute (3) COPD exacerbation Status: Acute (4) Cachexia Status: Acute (5) Cholelithiases Status: Acute (6) Alzheimer disease Status: Acute - Assessment and Plan (Free Text) Plan: CONTINUE iv CEFEPIME 1 G EVERY 12 HOURLY 02/13/18. CONTINUE iv ZITHROMAX 500 MG ONCE A DAY DAILY 02/13/18. CONTINUE PULMONARY TOILET. PER GI/SURGERY.
--- NOTE | 2018-02-14 15:12 | CP.PCM.PN ---
Subjective - Date & Time of Evaluation Date of Evaluation: 02/14/18 Time of Evaluation: 15:09 - Subjective Subjective: PT ALERT, NO DISTRESS. ROS; OTHERWISE NEG Objective - Vital Signs/Intake and Output Vital Signs (last 24 hours): Temp Pulse Resp BP Pulse Ox 98.9 F 101 H 20 114/72 96 02/13/18 23:24 02/13/18 23:24 02/13/18 23:24 02/13/18 23:24 02/13/18 23:24 Intake and Output: 02/14/18 02/14/18 06:59 18:59 Intake Total 1650 Output Total 600 Balance 1050 - Medications Medications: Current Medications Albuterol/Ipratropium (Duoneb 3 Mg/0.5 Mg (3 Ml) Ud) 3 ml INH RQ6 [facility] Last Admin: 02/14/18 09:33 Dose: Not Given Docusate Sodium (Colace) 100 mg PO BID [facility] Last Admin: 02/14/18 10:20 Dose: 100 mg Sodium Chloride (Sodium Chloride 0.9%) 1,000 mls @ 100 mls/hr IV .Q10H [facility] Last Admin: 02/14/18 14:00 Dose: Not Given Azithromycin 500 mg/ Sodium (Chloride) 250 mls @ 250 mls/hr IVPB DAILY [facility]; Protocol Last Admin: 02/14/18 10:28 Dose: 250 mls/hr Cefepime HCl (Maxipime Iv 1 Gm Premix) 1 gm in 50 mls @ 100 mls/hr IVPB 0400,1600 [facility]; Protocol Last Admin: 02/14/18 03:10 Dose: 100 mls/hr Magnesium Sulfate/Dextrose (Magnesium Sulfate 1 Gm/100 Ml D5w) 1 gm in 100 mls @ 300 mls/hr IVPB Q30M [facility] Stop: 02/14/18 15:49 Influenza Virus Vaccine (Fluzone Quad [id number]) 60 mcg IM .ONCE ONE Stop: 02/15/18 10:01 Morphine Sulfate (Morphine) 2 mg IVP Q6 PRN PRN Reason: Pain, severe (8-10) Last Admin: 02/14/18 02:55 Dose: 2 mg Pantoprazole Sodium (Protonix Inj) 40 mg IVP DAILY [facility] Last Admin: 02/14/18 14:56 Dose: 40 mg Pneumococcal Polyvalent Vaccine (Pneumovax 23 Vaccine) 0.5 ml IM .ONCE ONE Stop: 02/15/18 10:01 Polyethylene Glycol (Miralax) 17 gm PO DAILY [facility] Last Admin: 02/14/18 10:20 Dose: 17 gm - Labs Labs: 02/14/18 07:11 02/14/18 07:11 PT 21.9 SECONDS (9.7-12.2) H 02/13/18 18:36 INR 2.0 02/13/18 18:36 APTT 44 SECONDS (21-34) H 02/13/18 18:36 - Constitutional Appears: No Acute Distress, Chronically Ill - Head Exam Head Exam: ATRAUMATIC, NORMOCEPHALIC - Eye Exam Eye Exam: EOMI, Normal appearance - ENT Exam ENT Exam: Mucous Membranes Moist - Respiratory Exam Respiratory Exam: Decreased Breath Sounds. absent: Accessory Muscle Use, Wheezes - Cardiovascular Exam Cardiovascular Exam: RRR, +S1, +S2 - GI/Abdominal Exam GI & Abdominal Exam: Soft - Rectal Exam Rectal Exam: Deferred - Extremities Exam Extremities Exam: absent: Calf Tenderness, Pedal Edema - Back Exam Back Exam: absent: CVA tenderness (L), CVA tenderness (R) - Neurological Exam Neurological Exam: Alert, Awake, CN II-XII Intact Assessment and Plan (1) Alzheimer disease Status: Acute (2) Cholelithiases Status: Acute (3) COPD exacerbation Status: Acute (4) Abdominal pain Status: Acute (5) Pneumonia Status: Acute (6) Cachexia Status: Acute - Assessment and Plan (Free Text) Assessment: RESP STATUS NO SIG CHANGE., CONT PULM TOILET., NEB BD., CXR REVIEWED. MONITOR O2 SAT. CONT AB. HIDA+ NOTED, FOR SURG EVAL. ON TELEMONITOR. PROG GUARDED. DISCUSSED WITH STAFF AT LENGTH.
[2018-02-14] MEDS: Magnesium Sulfate 1 gm in D5W 1 GM/100 ML BAG IVPB SCH ×2 (16:00→16:57)
--- NOTE | 2018-02-14 18:09 | CP.PCM.PN ---
Subjective - Date & Time of Evaluation Date of Evaluation: 02/14/18 Time of Evaluation: 18:05 - Subjective Subjective: Patient denies having abdominal pain. He offers no new complaints. Objective - Vital Signs/Intake and Output Vital Signs (last 24 hours): Temp Pulse Resp BP Pulse Ox 100.0 F H 101 H 20 99/64 L 97 02/14/18 16:10 02/14/18 16:10 02/14/18 16:10 02/14/18 16:10 02/14/18 16:10 Intake and Output: 02/14/18 02/14/18 06:59 18:59 Intake Total 1650 1130 Output Total 600 Balance 1050 1130 - Medications Medications: Current Medications Albuterol/Ipratropium (Duoneb 3 Mg/0.5 Mg (3 Ml) Ud) 3 ml INH RQ6 [facility] Last Admin: 02/14/18 15:16 Dose: Not Given Docusate Sodium (Colace) 100 mg PO BID [facility] Last Admin: 02/14/18 17:00 Dose: 100 mg Sodium Chloride (Sodium Chloride 0.9%) 1,000 mls @ 100 mls/hr IV .Q10H [facility] Last Admin: 02/14/18 14:00 Dose: Not Given Azithromycin 500 mg/ Sodium (Chloride) 250 mls @ 250 mls/hr IVPB DAILY [facility]; Protocol Last Admin: 02/14/18 10:28 Dose: 250 mls/hr Cefepime HCl (Maxipime Iv 1 Gm Premix) 1 gm in 50 mls @ 100 mls/hr IVPB 0400,1 600 [facility]; Protocol Last Admin: 02/14/18 16:59 Dose: 100 mls/hr Influenza Virus Vaccine (Fluzone Quad [id number]) 60 mcg IM .ONCE ONE Stop: 02/15/18 10:01 Morphine Sulfate (Morphine) 2 mg IVP Q6 PRN PRN Reason: Pain, severe (8-10) Last Admin: 02/14/18 02:55 Dose: 2 mg Pantoprazole Sodium (Protonix Inj) 40 mg IVP DAILY [facility] Last Admin: 02/14/18 14:56 Dose: 40 mg Pneumococcal Polyvalent Vaccine (Pneumovax 23 Vaccine) 0.5 ml IM .ONCE ONE Stop: 02/15/18 10:01 Polyethylene Glycol (Miralax) 17 gm PO DAILY [facility] Last Admin: 02/14/18 10:20 Dose: 17 gm - Labs Labs: 02/14/18 07:11 02/14/18 07:11 PT 21.9 SECONDS (9.7-12.2) H 02/13/18 18:36 INR 2.0 02/13/18 18:36 APTT 44 SECONDS (21-34) H 02/13/18 18:36 - Constitutional Appears: No Acute Distress - Head Exam Head Exam: ATRAUMATIC, NORMOCEPHALIC - Eye Exam Eye Exam: EOMI, PERRL - Neck Exam Neck Exam: absent: Lymphadenopathy, Thyromegaly - Respiratory Exam Respiratory Exam: NORMAL BREATHING PATTERN. absent: Rales, Rhonchi, Wheezes - Cardiovascular Exam Cardiovascular Exam: REGULAR RHYTHM, +S1, +S2. absent: Gallop, Rubs, Murmur - GI/Abdominal Exam GI & Abdominal Exam: Soft, Normal Bowel Sounds. absent: Tenderness, Mass, Organomegaly - Rectal Exam Rectal Exam: Deferred - Extremities Exam Extremities Exam: absent: Calf Tenderness, Pedal Edema Assessment and Plan (1) Abdominal pain Assessment & Plan: Patient in no longer complaining of abdominal pain. The HIDA scan showed prompt excretion of the isotope into the CBD, and it reached the SB within 25 minutes; however, the GB was not visualized. LFTs are now within normal limits, except for the TBILI: TBILI 1.9, AST 36, ALT 29, ALKP 113. Agree with plans for cholecystectomy. Patient was not able to lie flat for MRCP, so an int raoperative cholangiogram would be helpful in documenting a CBD stone. Status: Acute
[2018-02-15] MEDS: Cefepime IV 1 gm in Dextrose 1 GM/50 ML BAG IVPB SCH ×2 (03:08→16:33)
[2018-02-15] MEDS: Sodium Chloride 0.9% 1,000 ML IV SCH ×2 (04:52→12:50)
[2018-02-15 06:37] LABS: BASO # 0.1 K/uL (0.0-0.2); BASO % 0.6 % (0.0-2.0); EOS # 0.1 K/uL (0.0-0.7); EOS % 0.8 % (0.0-4.0); HEMOGLOBIN 11.1 g/dL (12.0-18.0); LYMPH # 0.5 K/uL (1.0-4.3); MEAN CELL VOLUME 89.2 fL (80.0-94.0); MEAN CORPUSCULAR HEMOGLOBIN 29.9 pg (27.0-31.0); MEAN CORPUSCULAR HGB CONC 33.5 g/dL (33.0-37.0); MEAN PLATELET VOLUME 7.7 fL (7.2-11.7); MONO # 0.7 K/uL (0.0-0.8); MONO % 6.8 % (0.0-10.0); NEUT # 9.1 K/uL (1.8-7.0); NEUT % 86.8 % (50.0-75.0); PLATELET COUNT 258 K/uL (130-400); RBC 3.72 Mil/uL (4.40-5.90); RED CELL DISTRIBUTION WIDTH 14.6 % (11.5-14.5); WHITE BLOOD COUNT 10.5 K/uL (4.8-10.8)
[2018-02-15 07:32] LABS: ALB/GLOB RATIO 0.7 (1.0-2.1); ALBUMIN 2.6 g/dL (3.5-5.0); ALT/SGPT 22 U/L (21-72); AST/SGOT 21 U/L (17-59); BLOOD UREA NITROGEN 5 mg/dL (9-20); CALCIUM 7.4 mg/dl (8.6-10.4); GFR NON-AFRICAN AMERICAN > 60
[2018-02-15] MEDS: Albuterol-Ipratrop 3 mg / 0.5 (3 ml) UD INH SCH ×3 (07:37→22:05)
--- NOTE | 2018-02-15 08:00 | CP.PCM.PN ---
Subjective - Date & Time of Evaluation Date of Evaluation: 02/15/18 Time of Evaluation: 07:49 - Subjective Subjective: Surgery: Dr. Boothe Pt seen and examined. No acute overnight events. Pt states he feels ok and admits to some pain in his RUQ. States he's tolerating liquids, denies nausea/vomiting. Denies fevers/chills. Objective - Vital Signs/Intake and Output Vital Signs (last 24 hours): Temp Pulse Resp BP Pulse Ox 98 F 99 H 20 114/62 96 02/15/18 00:00 02/15/18 00:00 02/15/18 00:00 02/15/18 00:00 02/15/18 00:00 - Medications Medications: Current Medications Albuterol/Ipratropium (Duoneb 3 Mg/0.5 Mg (3 Ml) Ud) 3 ml INH RQ6 [facility] Last Admin: 02/15/18 07:37 Dose: Not Given Docusate Sodium (Colace) 100 mg PO BID [facility] Last Admin: 02/14/18 17:00 Dose: 100 mg Sodium Chloride (Sodium Chloride 0.9%) 1,000 mls @ 100 mls/hr IV .Q10H [facility] Last Admin: 02/15/18 04:52 Dose: 100 mls/hr Azithromycin 500 mg/ Sodium (Chloride) 250 mls @ 250 mls/hr IVPB DAILY [facility]; Protocol Last Admin: 02/14/18 10:28 Dose: 250 mls/hr Cefepime HCl (Maxipime Iv 1 Gm Premix) 1 gm in 50 mls @ 100 mls/hr IVPB 0400,1600 [facility]; Protocol Last Admin: 02/15/18 03:08 Dose: 100 mls/hr Influenza Virus Vaccine (Fluzone Quad [id number]) 60 mcg IM .ONCE ONE Stop: 02/15/18 10:01 Morphine Sulfate (Morphine) 2 mg IVP Q6 PRN PRN Reason: Pain, severe (8-10) Last Admin: 02/15/18 05:31 Dose: 2 mg Mupirocin (Bactroban Ointment) 0.25 gm TOP BID [facility] Stop: 02/22/18 10:01 Pantoprazole Sodium (Protonix Inj) 40 mg IVP DAILY [facility] Last Admin: 02/14/18 14:56 Dose: 40 mg Pneumococcal Polyvalent Vaccine (Pneumovax 23 Vaccine) 0.5 ml IM .ONCE ONE Stop: 02/15/18 10:01 Polyethylene Glycol (Miralax) 17 gm PO DAILY [facility] Last Admin: 02/14/18 10:20 Dose: 17 gm - Labs Labs: 02/15/18 06:28 02/15/18 06:28 PT 21.9 SECONDS (9.7-12.2) H 02/13/18 18:36 INR 2.0 02/13/18 18:36 APTT 44 SECONDS (21-34) H 02/13/18 18:36 - Constitutional Appears: Well, No Acute Distress - ENT Exam ENT Exam: Mucous Membranes Moist - Respiratory Exam Respiratory Exam: NORMAL BREATHING PATTERN - Cardiovascular Exam Cardiovascular Exam: Tachycardia - GI/Abdominal Exam GI & Abdominal Exam: Soft, Tenderness (RUQ). absent: Distended, Rebound - Neurological Exam Neurological Exam: Alert, Awake, Oriented x3 - Skin Skin Exam: Dry, Warm Assessment and Plan - Assessment and Plan (Free Text) Assessment: 72M with cholecystitis Plan: - plan for OR on Saturday - pt needs to be medically optimized with cardiac risk stratification - f/u nephro recs regarding hyponatremia - cont IV ABX - d/w Dr. Shyann Le
[2018-02-15 09:14] LABS: EOSINOPHIL 1 % (0-4); LYMPHOCYTE 5 % (20-40); MONOCYTE 6 % (0-10); NEUTROPHIL 88 % (50-75); TOTAL CELLS COUNTED 100
[2018-02-15 09:15] LABS: ANISOCYTOSIS SLIGHT; HYPOCHROMIC SLIGHT; LARGE PLATELETS PRESENT; PLATELET ESTIMATE NORMAL (NORMAL); POLYCHROMIC SLIGHT; TOXIC GRANULATION PRESENT
[2018-02-15] MEDS ORDERED: Pneumococcal 23-Valent Vaccine IM ONE (10:00)
[2018-02-15] MEDS ORDERED: Influenza Vaccine 60 MCG/0.5 ML SYR (3 yr & up) IM ONE (10:00)
--- NOTE | 2018-02-15 10:54 | CP.PCM.CON ---
History of Present Illness - History of Present Illness History of Present Illness: Patient seen and examined consult dictated hyponatremia multifactorial considerations include pain,abd liver path and possible volume depletion need to know home meds to obtain urine and serum studies would reduce iv saline for now Past Patient History - Past Medical History & Family History Past Medical History?: Yes - Past Social History Smoking Status: Former Smoker - CARDIAC Hx Congestive Heart Failure: Yes (?more than 20 yrs ago) - PULMONARY Hx Emphysema: Yes - NEUROLOGICAL Hx Alzheimer's Disease: Yes - HEENT Hx HEENT Problems: No - RENAL Hx Chronic Kidney Disease: No - ENDOCRINE/METABOLIC Hx Endocrine Disorders: No - HEMATOLOGICAL/ONCOLOGICAL Hx Blood Disorders: No - INTEGUMENTARY Hx Dermatological Problems: No - MUSCULOSKELETAL/RHEUMATOLOGICAL Hx Arthritis: Yes (L SH; BACK) - GASTROINTESTINAL Hx Gastrointestinal Disorders: No - GENITOURINARY/GYNECOLOGICAL Hx Genitourinary Disorders: No - PSYCHIATRIC Hx Substance Use: No - SURGICAL HISTORY Hx Surgeries: Yes Hx Orthopedic Surgery: Yes (LEFT ARM) - ANESTHESIA Hx Anesthesia: Yes Hx Anesthesia Reactions: No Hx Malignant Hyperthermia: No Meds Allergies/Adverse Reactions: Allergies Allergy/AdvReac Type Severity Reaction Status Date / Time No Known Allergies Allergy Verified 02/12/18 21:31 - Medications Medications: Current Medications Albuterol/Ipratropium (Duoneb 3 Mg/0.5 Mg (3 Ml) Ud) 3 ml INH RQ6 [facility] Last Admin: 02/15/18 07:37 Dose: Not Given Docusate Sodium (Colace) 100 mg PO BID [facility] Last Admin: 02/14/18 17:00 Dose: 100 mg Azithromycin 500 mg/ Sodium (Chloride) 250 mls @ 250 mls/hr IVPB DAILY [facility]; Protocol Last Admin: 02/14/18 10:28 Dose: 250 mls/hr Cefepime HCl (Maxipime Iv 1 Gm Premix) 1 gm in 50 mls @ 100 mls/hr IVPB 0 400,1600 [facility]; Protocol Last Admin: 02/15/18 03:08 Dose: 100 mls/hr Sodium Chloride (Sodium Chloride 0.9%) 1,000 mls @ 50 mls/hr IV .Q20H [facility] Morphine Sulfate (Morphine) 2 mg IVP Q6 PRN PRN Reason: Pain, severe (8-10) Last Admin: 02/15/18 05:31 Dose: 2 mg Mupirocin (Bactroban Ointment) 0.25 gm TOP BID [facility] Stop: 02/22/18 10:01 Pantoprazole Sodium (Protonix Inj) 40 mg IVP DAILY [facility] Last Admin: 02/14/18 14:56 Dose: 40 mg Polyethylene Glycol (Miralax) 17 gm PO DAILY [facility] Last Admin: 02/14/18 10:20 Dose: 17 gm Potassium Chloride (Potassium Chloride Oral Soln) 20 meq PO DAILY [facility] Results - Vital Signs Recent Vital Signs: Last Vital Signs Temp 98.2 F 02/15/18 08:00 Pulse 82 02/15/18 08:00 Resp 20 02/15/18 08:00 BP 105/65 02/15/18 08:00 Pulse Ox 99 02/15/18 08:00 - Labs Result Diagrams: 02/15/18 06:28 02/15/18 06:28 Labs: Laboratory Results - last 24 hr 02/14/18 02/15/18 02/15/18 06:51 06:28 06:28 WBC 10.5 RBC 3.72 L Hgb 11.1 L Hct 33.2 L MCV 89.2 MCH 29.9 MCHC 33.5 RDW 14.6 H Plt Count 258 MPV 7.7 Neut % (Auto) 86.8 H Lymph % (Auto) 5.0 L [place] % (Auto) 6.8 Eos % (Auto) 0.8 Baso % (Auto) 0.6 Neut # (Auto) 9.1 H Lymph # (Auto) 0.5 L [place] # (Auto) 0.7 Eos # (Auto) 0.1 Baso # (Auto) 0.1 Neutrophils % (Manual) 88 H Lymphocytes % (Manual) 5 L Monocytes % (Manual) 6 Eosinophils % (Manual) 1 Toxic Granulation Present Platelet Estimate Normal Large Platelets Present Polychromasia Slight Hypochromasia (manual) Slight Anisocytosis (manual) Slight Sodium 128 L Potassium 3.1 L Chloride 91 L Carbon Dioxide 28 Anion Gap 12 BUN 5 L Creatinine 0.4 L Est GFR ( Amer) > 60 Est GFR (Non-Af Amer) > 60 Random Glucose 82 Calcium 7.4 L Phosphorus 2.1 L Magnesium 1.8 Total Bilirubin 1.3 AST 21 ALT 22 Alkaline Phosphatase 96 Total Protein 6.3 Albumin 2.6 L Globulin 3.7 Albumin/Globulin Ratio 0.7 L Ur L.pneumophila Ag Negative
--- NOTE | 2018-02-15 10:58 | CP.PCM.PN ---
Subjective - Date & Time of Evaluation Date of Evaluation: 02/15/18 Time of Evaluation: 10:56 - Subjective Subjective: PT ALERT, NO SOB, NO SBD PAIN. ROS; OTHERWISE NEG Objective - Vital Signs/Intake and Output Vital Signs (last 24 hours): Temp Pulse Resp BP Pulse Ox 98.2 F 82 20 105/65 99 02/15/18 08:00 02/15/18 08:00 02/15/18 08:00 02/15/18 08:00 02/15/18 08:00 Intake and Output: 02/15/18 02/15/18 06:59 18:59 Intake Total 800 Balance 800 - Medications Medications: Current Medications Albuterol/Ipratropium (Duoneb 3 Mg/0.5 Mg (3 Ml) Ud) 3 ml INH RQ6 [facility] Last Admin: 02/15/18 07:37 Dose: Not Given Docusate Sodium (Colace) 100 mg PO BID [facility] Last Admin: 02/14/18 17:00 Dose: 100 mg Azithromycin 500 mg/ Sodium (Chloride) 250 mls @ 250 mls/hr IVPB DAILY [facility]; Protocol Last Admin: 02/14/18 10:28 Dose: 250 mls/hr Cefepime HCl (Maxipime Iv 1 Gm Premix) 1 gm in 50 mls @ 100 mls/hr IVPB 0400,1600 [facility]; Protocol Last Admin: 02/15/18 03:08 Dose: 100 mls/hr Sodium Chloride (Sodium Chloride 0.9%) 1,000 mls @ 50 mls/hr IV .Q20H [facility] Morphine Sulfate (Morphine) 2 mg IVP Q6 PRN PRN Reason: Pain, severe (8-10) Last Admin: 02/15/18 05:31 Dose: 2 mg Mupirocin (Bactroban Ointment) 0.25 gm TOP BID [facility] Stop: 02/22/18 10:01 Pantoprazole Sodium (Protonix Inj) 40 mg IVP DAILY [facility] Last Admin: 02/14/18 14:56 Dose: 40 mg Polyethylene Glycol (Miralax) 17 gm PO DAILY [facility] Last Admin: 02/14/18 10:20 Dose: 17 gm Potassium Chloride (Potassium Chloride Oral Soln) 20 meq PO DAILY [facility] - Labs Labs: 02/15/18 06:28 02/15/18 06:28 PT 21.9 SECONDS (9.7-12.2) H 02/13/18 18:36 INR 2.0 02/13/18 18:36 APTT 44 SECONDS (21-34) H 02/13/18 18:36 - Constitutional Appears: No Acute Distress, Chronically Ill - Head Exam Head Exam: ATRAUMATIC, NORMOCEPHALIC - Eye Exam Eye Exam: EOMI, Normal appearance - ENT Exam ENT Exam: Mucous Membranes Moist - Neck Exam Neck Exam: Normal Inspection - Respiratory Exam Respiratory Exam: Decreased Breath Sounds. absent: Respiratory Distress - Cardiovascular Exam Cardiovascular Exam: RRR, +S1, +S2 - GI/Abdominal Exam GI & Abdominal Exam: Soft. absent: Tenderness - Rectal Exam Rectal Exam: Deferred - Extremities Exam Extremities Exam: absent: Calf Tenderness, Pedal Edema - Back Exam Back Exam: absent: CVA tenderness (L), CVA tenderness (R) - Neurological Exam Neurological Exam: Alert, Awake, CN II-XII Intact. absent: Oriented x3 - Psychiatric Exam Psychiatric exam: Normal Mood - Skin Skin Exam: absent: Rash Assessment and Plan (1) Alzheimer disease Status: Acute (2) Cholelithiases Status: Acute (3) COPD exacerbation Status: Acute (4) Abdominal pain Status: Acute (5) Pneumonia Status: Acute (6) Cachexia Status: Acute - Assessment and Plan (Free Text) Assessment: RESP STATUS NO SIG CHANGE. CONT PULM TOILET., NEB BD, MONITOR O2 SAT. AFEBRILE ON AB. CXR REVIEWED. FOR POSS OR PER SURG. PROG GUARDED. DISCUSSED WITH STAFF AT LENGTH.
[2018-02-15] MEDS: Potassium Chloride 20 mEq/15 ml LIQ UD PO SCH ×2 (11:23→13:05)
[2018-02-15] MEDS: POLYETHYLENE GLYCOL 3350 17 GM/Dose PACKET PO SCH ×2 (11:23→13:04)
[2018-02-15] MEDS: Azithromycin 500 MG in Sodium Chloride 0.9% 250 ML IVPB SCH (12:48)
--- NOTE | 2018-02-15 14:32 | CP.PCM.PN ---
Subjective - Date & Time of Evaluation Date of Evaluation: 02/15/18 Time of Evaluation: 14:30 - Subjective Subjective: CHIEF COMPLAINTS TODAY : Patient is more alert and awake history obtained with patients relative Patient has less abdominal pain no nausea or vomiting ROS. HEENT : N. Resp : No cough, wheezing ,pleuritic CP ,or hemoptysis Cardio : No anginal CP, PND, orthopnea, palpitation GI : No abd.pain, n/v ,diarrhea or GI bleeding . [employer] : No headache, vertigo, focal deficit. Musculoskel : No joint swelling , Derm : No rash Psych : Normal affect. Ext : No swelling ,calf pain PE. Pt. is alert awake in no distress. V.S As noted in the chart Head ,ear nose,throat and eyes : Normal. Neck : Supple with normal carotids. Lungs: Clear air entry. Heart : S1 & S2 normal with S4. No murmur. Abd : Soft non tender with normal bowel sounds. Neuro : Moves all ext. with no localized deficit. Ext : No edema with intact pulses.Non tender calves Derm : No rashes or decubitus ulcer. LABS/RADIOLOGY: ASSESSMENT/PLAN : Persistent hyponatremia nephrology on board. Patient had an echocardiogram done March 2017 which showed normal left ejection fraction. Currently patient has no evidence of any CHF or any cardiac decompensation. Continue IV antibiotics and possible OR on Saturday Objective - Vital Signs/Intake and Output Vital Signs (last 24 hours): Temp Pulse Resp BP Pulse Ox 98.2 F 82 20 105/65 99 02/15/18 08:00 02/15/18 08:00 02/15/18 08:00 02/15/18 08:00 02/15/18 08:00 Intake and Output: 02/15/18 02/15/18 11:59 23:59 Intake Total 800 Balance 800 - Medications Medications: Current Medications Albuterol/Ipratropium (Duoneb 3 Mg/0.5 Mg (3 Ml) Ud) 3 ml INH RQ6 [facility] Last Admin: 02/15/18 13:18 Dose: Not Given Docusate Sodium (Colace) 100 mg PO BID [facility] Last Admin: 02/15/18 13:03 Dose: Not Given Azithromycin 500 mg/ Sodium (Chloride) 250 mls @ 250 mls/hr IVPB DAILY [facility]; Protocol Last Admin: 02/15/18 12:48 Dose: 250 mls/hr Cefepime HCl (Maxipime Iv 1 Gm Premix) 1 gm in 50 mls @ 100 mls/hr IVPB 0400,1600 [facility]; Protocol Last Admin: 02/15/18 03:08 Dose: 100 mls/hr Sodium Chloride (Sodium Chloride 0.9%) 1,000 mls @ 50 mls/hr IV .Q20H [facility] Last Admin: 02/15/18 12:50 Dose: 50 mls/hr Morphine Sulfate (Morphine) 2 mg IVP Q6 PRN PRN Reason: Pain, severe (8-10) Last Admin: 02/15/18 12:45 Dose: 2 mg Mupirocin (Bactroban Ointment) 0.25 gm TOP BID [facility] Stop: 02/22/18 10:01 Pantoprazole Sodium (Protonix Inj) 40 mg IVP DAILY [facility] Last Admin: 02/15/18 13:04 Dose: 40 mg Polyethylene Glycol (Miralax) 17 gm PO DAILY [facility] Last Admin: 02/15/18 13:04 Dose: Not Given Potassium Chloride (Potassium Chloride Oral Soln) 20 meq PO DAILY [facility] Last Admin: 02/15/18 13:05 Dose: Not Given - Labs Labs: 02/15/18 06:28 02/15/18 06:28 PT 21.9 SECONDS (9.7-12.2) H 02/13/18 18:36 INR 2.0 02/13/18 18:36 APTT 44 SECONDS (21-34) H 02/13/18 18:36
--- NOTE | 2018-02-15 14:40 | CP.PCM.PN ---
Subjective - Date & Time of Evaluation Date of Evaluation: 02/15/18 Time of Evaluation: 14:40 - Subjective Subjective: AFEBRILE, AWAKE, FEELING BETTER. DENIES COUGH/OR SOB. MILD ABDOMINAL PAIN +VE RUQ. TOLERATING LIQUIDS ROS ; UNREMARKABLE Objective - Vital Signs/Intake and Output Vital Signs (last 24 hours): Temp Pulse Resp BP Pulse Ox 98.2 F 82 20 105/65 99 02/15/18 08:00 02/15/18 08:00 02/15/18 08:00 02/15/18 08:00 02/15/18 08:00 Intake and Output: 02/15/18 02/15/18 06:59 18:59 Intake Total 800 Balance 800 - Medications Medications: Current Medications Albuterol/Ipratropium (Duoneb 3 Mg/0.5 Mg (3 Ml) Ud) 3 ml INH RQ6 [facility] Last Admin: 02/15/18 13:18 Dose: Not Given Docusate Sodium (Colace) 100 mg PO BID [facility] Last Admin: 02/15/18 13:03 Dose: Not Given Azithromycin 500 mg/ Sodium (Chloride) 250 mls @ 250 mls/hr IVPB DAILY [facility]; Protocol Last Admin: 02/15/18 12:48 Dose: 250 mls/hr Cefepime HCl (Maxipime Iv 1 Gm Premix) 1 gm in 50 mls @ 100 mls/hr IVPB 0400 ,1600 [facility]; Protocol Last Admin: 02/15/18 03:08 Dose: 100 mls/hr Sodium Chloride (Sodium Chloride 0.9%) 1,000 mls @ 50 mls/hr IV .Q20H [facility] Last Admin: 02/15/18 12:50 Dose: 50 mls/hr Morphine Sulfate (Morphine) 2 mg IVP Q6 PRN PRN Reason: Pain, severe (8-10) Last Admin: 02/15/18 12:45 Dose: 2 mg Mupirocin (Bactroban Ointment) 0.25 gm TOP BID [facility] Stop: 02/22/18 10:01 Pantoprazole Sodium (Protonix Inj) 40 mg IVP DAILY [facility] Last Admin: 02/15/18 13:04 Dose: 40 mg Polyethylene Glycol (Miralax) 17 gm PO DAILY [facility] Last Admin: 02/15/18 13:04 Dose: Not Given Potassium Chloride (Potassium Chloride Oral Soln) 20 meq PO DAILY [facility] Last Admin: 02/15/18 13:05 Dose: Not Given - Labs Labs: 02/15/18 06:28 02/15/18 06:28 PT 21.9 SECONDS (9.7-12.2) H 02/13/18 18:36 INR 2.0 02/13/18 18:36 APTT 44 SECONDS (21-34) H 02/13/18 18:36 - Constitutional Appears: No Acute Distress, Cachectic, Chronically Ill - Head Exam Head Exam: NORMAL INSPECTION - Eye Exam Eye Exam: EOMI, PERRL - ENT Exam ENT Exam: Normal Oropharynx - Neck Exam Neck Exam: Normal Inspection - Respiratory Exam Respiratory Exam: Decreased Breath Sounds, NORMAL BREATHING PATTERN - Cardiovascular Exam Cardiovascular Exam: REGULAR RHYTHM, +S1, +S2 - GI/Abdominal Exam GI & Abdominal Exam: Soft, Tenderness (MILD ON DEEP PALPATION RT FLANK.), Normal Bowel Sounds. absent: Rebound - Extremities Exam Extremities Exam: Normal Capillary Refill, Pedal Edema (1+). absent: Calf Tenderness - Neurological Exam Neurological Exam: Alert, Awake, CN II-XII Intact, Reflexes Normal - Psychiatric Exam Psychiatric exam: Normal Mood - Skin Skin Exam: Normal Color, Warm Assessment and Plan (1) Pneumonia Status: Acute (2) Abdominal pain Status: Acute (3) COPD exacerbation Status: Acute (4) Cachexia Status: Acute (5) Cholelithiases Status: Acute (6) Alzheimer disease Status: Acute - Assessment and Plan (Free Text) Plan: CONTINUE iv CEFEPIME 1 G EVERY 12 HOURLY 02/13/18. CONTINUE iv ZITHROMAX 500 MG ONCE A DAY DAILY 02/13/18. SEEN BY RENAL FOR CORRECTION OF HYPONATREMIA. CONTINUE PULMONARY TOILET. PER GI/SURGERY.
[2018-02-15 18:14] LABS: BLOOD UREA NITROGEN 5 mg/dL (9-20); CALCIUM 7.4 mg/dl (8.6-10.4); GFR NON-AFRICAN AMERICAN > 60
--- NOTE | 2018-02-15 21:39 | CON ---
DATE: 02/15/2018 ATTENDING PHYSICIAN: Cornelia Mancera MD HISTORY OF PRESENT ILLNESS: Mr. Lawler is a 72-year-old male who is being seen for hyponatremia. Mr. Lawler does not speak [place]ian and carries a diagnosis of dementia and the history is obtained both from the patient and the records. Mr. Lawler came to the emergency room on 02/13/2018 complaining of abdominal pain. A chest x-ray showed pleural effusions. The chest x-ray showed chronic-appearing left lower lobe atelectasis. There were also patchy interstitial infiltrates and probably alveolar type infiltrate in the left mid to lower lung [place] and questionable small bilateral pleural effusions. He underwent an abdominal CAT scan with contrast, which showed symmetric nephrograms with no evidence of nephrolithiasis or hydronephrosis. He did have multiple gallstones with a nonobstructing stone in the common bile duct and pancreatic duct. On 02/13/2018, his white count was 12,400, his hemoglobin 12.6, and hematocrit 36.8. His sodium was 127, potassium 3.4, chloride 89, CO2 31, BUN 9, creatinine 0.4, glucose 138, total bilirubin 1.9, AST of 66, ALT of 33, alkaline phosphatase of 156, total protein 7.4, albumin 3.4. He was treated with intravenous fluids and antibiotics. Today, his white count is 10,500. His hemoglobin is 11.1. Sodium 128, potassium 3.1, chloride 91, CO2 28, BUN 5, creatinine 0.4, calcium 7.4, phosphorus 2.1, albumin 2.6, bilirubin was 1.3. PAST MEDICAL HISTORY: His past history is not available other than he has a history of prostate problems and Alzheimer's. MEDICATIONS: There was no medication list available. PREVIOUS HOSPITALIZATIONS: Not known. ALLERGIES: THERE IS NO RECORD OF ALLERGIES. FAMILY HISTORY: Not available. SOCIAL HISTORY: He denies alcohol ingestion or smoking, although this is not confirmed. REVIEW OF SYSTEMS: At present, he denied headache, chest pain, cough, or hemoptysis. He continues to have abdominal pain. There is a question of vomiting. He denied diarrhea. He denied dysuria or gross hematuria. PHYSICAL EXAMINATION: GENERAL: He was a cachectic male, in no acute distress. VITAL SIGNS: His temperature was 98.2, it was as high as 100 last evening. His pulse was 82. His blood pressure was 105/65. NECK: There was no jugular venous distention at 30 degrees. LUNGS: The lungs revealed coarse sounds, prolonged inspiration and expiration. HEART: The heart rhythm is regular. ABDOMEN: Soft, not overly distended, with diffuse tenderness. There was no definite palpable bladder. There was no CVA tenderness or presacral edema. EXTREMITIES: He moved all his extremities on command. IMPRESSION AND PLAN: Acute cholelithiasis, interstitial pneumonia, hyponatremia; multifactorial. Considerations include both abdominal and lung pathology. Do not know his medications, although certain classes of medications can contribute to hyponatremia. Pain can also induce hyponatremia as can volume depletion. Agree with intravenous fluids, would reduce rate. Urinalysis; urine for protein, creatinine, sodium, and serum osmolality. We will continue to try to obtain further history as well as home medications and serial chemistries. Thank you for your kind referral. We will continue to follow with you. Sincerely, Lauri Montano MD
[2018-02-16] MEDS: Sodium Chloride 0.9% 1,000 ML IV SCH ×2 (00:40→06:45)
[2018-02-16] MEDS: Albuterol-Ipratrop 3 mg / 0.5 (3 ml) UD INH SCH ×4 (01:38→21:11)
[2018-02-16] MEDS: Cefepime IV 1 gm in Dextrose 1 GM/50 ML BAG IVPB SCH ×2 (04:02→16:00)
[2018-02-16 07:19] LABS: BASO % 0.3 % (0.0-2.0); EOS # 0.2 K/uL (0.0-0.7); EOS % 1.7 % (0.0-4.0); HEMOGLOBIN 11.5 g/dL (12.0-18.0); LYMPH # 0.6 K/uL (1.0-4.3); LYMPH % 6.2 % (20.0-40.0); MEAN CELL VOLUME 88.5 fL (80.0-94.0); MEAN CORPUSCULAR HEMOGLOBIN 29.5 pg (27.0-31.0); MEAN CORPUSCULAR HGB CONC 33.3 g/dL (33.0-37.0); MEAN PLATELET VOLUME 7.2 fL (7.2-11.7); MONO # 0.6 K/uL (0.0-0.8); MONO % 6.9 % (0.0-10.0); NEUT # 7.7 K/uL (1.8-7.0); NEUT % 84.9 % (50.0-75.0); PLATELET COUNT 277 K/uL (130-400); RBC 3.89 Mil/uL (4.40-5.90); RED CELL DISTRIBUTION WIDTH 14.2 % (11.5-14.5); WHITE BLOOD COUNT 9.1 K/uL (4.8-10.8)
[2018-02-16 07:50] LABS: ALB/GLOB RATIO 0.7 (1.0-2.1); ALBUMIN 2.8 g/dL (3.5-5.0); AST/SGOT 24 U/L (17-59); BLOOD UREA NITROGEN 3 mg/dL (9-20); CALCIUM 7.7 mg/dl (8.6-10.4); GFR NON-AFRICAN AMERICAN > 60
[2018-02-16 07:51] LABS: ALT/SGPT 21 U/L (21-72)
--- NOTE | 2018-02-16 08:31 | CP.PCM.PN ---
Subjective - Date & Time of Evaluation Date of Evaluation: 02/16/18 Time of Evaluation: 07:55 - Subjective Subjective: General Surgery Pt seen and examined. No acute overnight events. Feels ok but admits to mild pain in his RUQ. Tolerating liquids. Denies nausea/vomiting, fevers/chills. Objective - Vital Signs/Intake and Output Vital Signs (last 24 hours): Temp Pulse Resp BP Pulse Ox 99.7 F H 92 H 20 111/73 98 02/16/18 00:00 02/16/18 00:00 02/16/18 00:00 02/16/18 00:00 02/16/18 00:00 Intake and Output: 02/16/18 02/16/18 06:59 18:59 Intake Total 400 Output Total 350 Balance 50 - Medications Medications: Current Medications Albuterol/Ipratropium (Duoneb 3 Mg/0.5 Mg (3 Ml) Ud) 3 ml INH RQ6 [facility] Last Admin: 02/16/18 01:38 Dose: Not Given Docusate Sodium (Colace) 100 mg PO BID [facility] Last Admin: 02/15/18 17:40 Dose: Not Given Azithromycin 500 mg/ Sodium (Chloride) 250 mls @ 250 mls/hr IVPB DAILY [facility]; Protocol Last Admin: 02/15/18 12:48 Dose: 250 mls/hr Cefepime HCl (Maxipime Iv 1 Gm Premix) 1 gm in 50 mls @ 100 mls/hr IVPB 0400,1600 [facility]; Protocol Last Admin: 02/16/18 04:02 Dose: 100 mls/hr Sodium Chloride (Sodium Chloride 0.9%) 1,000 mls @ 50 mls/hr IV .Q20H [facility] Last Admin: 02/16/18 06:45 Dose: Not Given Morphine Sulfate (Morphine) 2 mg IVP Q6 PRN PRN Reason: Pain, severe (8-10) Last Admin: 02/16/18 07:40 Dose: 2 mg Mupirocin (Bactroban Ointment) 0.25 gm TOP BID [facility] Stop: 02/22/18 10:01 Last Admin: 02/15/18 18:00 Dose: 1 applic Pantoprazole Sodium (Protonix Inj) 40 mg IVP DAILY [facility] Last Admin: 02/15/18 13:04 Dose: 40 mg Polyethylene Glycol (Miralax) 17 gm PO DAILY [facility] Last Admin: 02/15/18 13:04 Dose: Not Given Potassium Chloride (Potassium Chloride Oral Soln) 20 meq PO DAILY [facility] Last Admin: 02/15/18 13:05 Dose: Not Given - Labs Labs: 02/16/18 07:05 02/16/18 07:06 PT 21.9 SECONDS (9.7-12.2) H 02/13/18 18:36 INR 2.0 02/13/18 18:36 APTT 44 SECONDS (21-34) H 02/13/18 18:36 - Constitutional Appears: Non-toxic, No Acute Distress - Head Exam Head Exam: ATRAUMATIC, NORMOCEPHALIC - Eye Exam Eye Exam: EOMI. absent: Scleral icterus - Respiratory Exam Respiratory Exam: NORMAL BREATHING PATTERN. absent: Respiratory Distress - Cardiovascular Exam Cardiovascular Exam: +S1, +S2. absent: Tachycardia - GI/Abdominal Exam GI & Abdominal Exam: Soft, Tenderness (mild in RUQ). absent: Distended, Firm, Guarding, Rigid, Rebound - Extremities Exam Extremities Exam: Normal Capillary Refill. absent: Calf Tenderness - Neurological Exam Neurological Exam: Alert, Awake - Skin Skin Exam: Dry, Warm Assessment and Plan - Assessment and Plan (Free Text) Assessment: 72M with cholecystitis Plan: - OR on Saturday - pt needs to be medically optimized with cardiac risk stratification - Nephro working up hyponatremia - Replete electrolytes PRN - cont IV ABX D/W Dr. Shyann Garcia PGY4
[2018-02-16 08:42] LABS: EOSINOPHIL 1 % (0-4); LYMPHOCYTE 6 % (20-40); MONOCYTE 6 % (0-10); NEUTROPHIL 87 % (50-75); TOTAL CELLS COUNTED 100
[2018-02-16 08:43] LABS: ANISOCYTOSIS SLIGHT; LARGE PLATELETS PRESENT; PLATELET ESTIMATE NORMAL (NORMAL)
[2018-02-16 08:44] LABS: TOXIC GRANULATION PRESENT
[2018-02-16 09:14] LABS: CREATININE, RANDOM URINE 29.1 mg/dL
[2018-02-16] MEDS ORDERED: Magnesium Sulfate 1 gm in D5W 1 GM/100 ML BAG IVPB ONE (10:07)
[2018-02-16] MEDS ORDERED: Potassium Phosphate 15 MMOLE in Sodium Chloride 0.9% 250 ML IV ONE (10:07)
[2018-02-16] MEDS: POLYETHYLENE GLYCOL 3350 17 GM/Dose PACKET PO SCH (10:47)
[2018-02-16] MEDS: Azithromycin 500 MG in Sodium Chloride 0.9% 250 ML IVPB SCH (10:54)
[2018-02-16] MEDS: Potassium Chloride 20 mEq/15 ml LIQ UD PO SCH (10:58)
--- NOTE | 2018-02-16 15:52 | CP.PCM.PN ---
Subjective - Date & Time of Evaluation Date of Evaluation: 02/16/18 Time of Evaluation: 15:51 - Subjective Subjective: Patient is still hyponatremia at 126. Urine sodium is elevated serum osmolality is low and urine also at his normal. Etiology of hyponatremia is unclear. Potassium is low by mouth potassium given. Tentative OR in a.m. if the sodium gets corrected. Objective - Vital Signs/Intake and Output Vital Signs (last 24 hours): Temp Pulse Resp BP Pulse Ox 99.1 F 86 20 96/60 L 100 02/16/18 08:29 02/16/18 08:29 02/16/18 08:29 02/16/18 08:29 02/16/18 08:29 Intake and Output: 02/16/18 02/16/18 11:59 23:59 Intake Total 400 Output Total 350 Balance 50 - Medications Medications: Current Medications Albuterol/Ipratropium (Duoneb 3 Mg/0.5 Mg (3 Ml) Ud) 3 ml INH RQ6 [facility] Last Admin: 02/16/18 13:05 Dose: Not Given Docusate Sodium (Colace) 100 mg PO BID [facility] Last Admin: 02/16/18 10:47 Dose: Not Given Azithromycin 500 mg/ Sodium (Chloride) 250 mls @ 250 mls/hr IVPB DAILY [facility]; Protocol Last Admin: 02/16/18 10:54 Dose: 250 mls/hr Cefepime HCl (Maxipime Iv 1 Gm Premix) 1 gm in 50 mls @ 100 mls/hr IVPB 0400,1600 [facility]; Protocol Last Admin: 02/16/18 04:02 Dose: 100 mls/hr Sodium Chloride (Sodium Chloride 0.9%) 1,000 mls @ 50 mls/hr IV .Q20H [facility] Last Admin: 02/16/18 06:45 Dose: Not Given Morphine Sulfate (Morphine) 2 mg IVP Q6 PRN PRN Reason: Pain, severe (8-10) Last Admin: 02/16/18 07:40 Dose: 2 mg Mupirocin (Bactroban Ointment) 0.25 gm TOP BID [facility] Stop: 02/22/18 10:01 Last Admin: 02/16/18 13:13 Dose: 1 applic Pantoprazole Sodium (Protonix Inj) 40 mg IVP DAILY [facility] Last Admin: 02/16/18 10:53 Dose: 40 mg Polyethylene Glycol (Miralax) 17 gm PO DAILY [facility] Last Admin: 02/16/18 10:47 Dose: Not Given Potassium Chloride (Potassium Chloride Oral Soln) 40 meq PO DAILY [facility] Last Admin: 02/16/18 10:58 Dose: 40 meq - Labs Labs: 02/16/18 07:05 02/16/18 07:06 PT 21.9 SECONDS (9.7-12.2) H 02/13/18 18:36 INR 2.0 02/13/18 18:36 APTT 44 SECONDS (21-34) H 02/13/18 18:36
--- NOTE | 2018-02-16 16:22 | CP.PCM.PN ---
Subjective - Date & Time of Evaluation Date of Evaluation: 02/16/18 Time of Evaluation: 16:20 - Subjective Subjective: PT ALERT, NO COUGH., NO SOB. ROS; OTHERWISE NEG. Objective - Vital Signs/Intake and Output Vital Signs (last 24 hours): Temp Pulse Resp BP Pulse Ox 98.3 F 92 H 20 107/70 98 02/16/18 16:00 02/16/18 16:00 02/16/18 16:00 02/16/18 16:00 02/16/18 16:00 Intake and Output: 02/16/18 02/16/18 06:59 18:59 Intake Total 400 Output Total 350 Balance 50 - Medications Medications: Current Medications Albuterol/Ipratropium (Duoneb 3 Mg/0.5 Mg (3 Ml) Ud) 3 ml INH RQ6 [facility] Last Admin: 02/16/18 13:05 Dose: Not Given Docusate Sodium (Colace) 100 mg PO BID [facility] Last Admin: 02/16/18 10:47 Dose: Not Given Azithromycin 500 mg/ Sodium (Chloride) 250 mls @ 250 mls/hr IVPB DAILY [facility]; Protocol Last Admin: 02/16/18 10:54 Dose: 250 mls/hr Cefepime HCl (Maxipime Iv 1 Gm Premix) 1 gm in 50 mls @ 100 mls/hr IVPB 0400,1600 [facility]; Protocol Last Admin: 02/16/18 04:02 Dose: 100 mls/hr Sodium Chloride (Sodium Chloride 0.9%) 1,000 mls @ 50 mls/hr IV .Q20H [facility] Last Admin: 02/16/18 06:45 Dose: Not Given Morphine Sulfate (Morphine) 2 mg IVP Q6 PRN PRN Reason: Pain, severe (8-10) Last Admin: 02/16/18 07:40 Dose: 2 mg Mupirocin (Bactroban Ointment) 0.25 gm TOP BID [facility] Stop: 02/22/18 10:01 Last Admin: 02/16/18 13:13 Dose: 1 applic Pantoprazole Sodium (Protonix Inj) 40 mg IVP DAILY [facility] Last Admin: 02/16/18 10:53 Dose: 40 mg Polyethylene Glycol (Miralax) 17 gm PO DAILY [facility] Last Admin: 02/16/18 10:47 Dose: Not Given Potassium Chloride (Potassium Chloride Oral Soln) 40 meq PO DAILY [facility] Last Admin: 02/16/18 10:58 Dose: 40 meq - Labs Labs: 02/16/18 07:05 02/16/18 07:06 PT 21.9 SECONDS (9.7-12.2) H 02/13/18 18:36 INR 2.0 02/13/18 18:36 APTT 44 SECONDS (21-34) H 02/13/18 18:36 - Constitutional Appears: No Acute Distress, Chronically Ill - Head Exam Head Exam: ATRAUMATIC, NORMOCEPHALIC - Eye Exam Eye Exam: EOMI, Normal appearance - ENT Exam ENT Exam: Mucous Membranes Moist - Neck Exam Neck Exam: Normal Inspection - Respiratory Exam Respiratory Exam: Decreased Breath Sounds. absent: Accessory Muscle Use, Respiratory Distress - Cardiovascular Exam Cardiovascular Exam: RRR, +S1, +S2 - GI/Abdominal Exam GI & Abdominal Exam: Soft - Rectal Exam Rectal Exam: Deferred - Extremities Exam Extremities Exam: absent: Calf Tenderness, Pedal Edema - Back Exam Back Exam: absent: CVA tenderness (L), CVA tenderness (R) - Neurological Exam Neurological Exam: Alert, Awake, CN II-XII Intact - Psychiatric Exam Psychiatric exam: Normal Mood - Skin Skin Exam: absent: Rash Assessment and Plan (1) Alzheimer disease Status: Acute (2) Cholelithiases Status: Acute (3) COPD exacerbation Status: Acute (4) Abdominal pain Status: Acute (5) Pneumonia Status: Acute (6) Cachexia Status: Acute - Assessment and Plan (Free Text) Assessment: RESP STATUS UNLABORED., CONT PULM TOILET., NEB BD., MONITOR O2 SAT. CHECK ABG PRE-OP. CXR REVIEWED. CONT AB PER ID. PROG GUARDED. DISCUSSED WITH STAFF.
[2018-02-16 17:19] LABS: ABG ALLEN TEST POS; ARTERIAL BLOOD GAS HCO3 31.5 mmol/L (21-28); ARTERIAL BLOOD GAS O2 SAT 98.9 % (95-98); ARTERIAL BLOOD GAS PCO2 58 mm/Hg (35-45); ARTERIAL BLOOD GAS PH 7.39 (7.35-7.45); ARTERIAL BLOOD GAS PO2 92 mm/Hg (80-100); ARTERIAL BLOOD GAS TCO2 36.9 mmol/L (22-28)
[2018-02-17] MEDS: Albuterol-Ipratrop 3 mg / 0.5 (3 ml) UD INH SCH ×4 (01:09→19:25)
[2018-02-17] MEDS: Sodium Chloride 0.9% 1,000 ML IV SCH ×2 (02:40→23:45)
[2018-02-17] MEDS: Cefepime IV 1 gm in Dextrose 1 GM/50 ML BAG IVPB SCH ×2 (03:58→16:25)
[2018-02-17 07:27] LABS: BASO # 0.1 K/uL (0.0-0.2); BASO % 0.8 % (0.0-2.0); EOS # 0.2 K/uL (0.0-0.7); EOS % 2.2 % (0.0-4.0); HEMOGLOBIN 11.9 g/dL (12.0-18.0); LYMPH # 0.6 K/uL (1.0-4.3); LYMPH % 7.5 % (20.0-40.0); MEAN CELL VOLUME 88.9 fL (80.0-94.0); MEAN CORPUSCULAR HEMOGLOBIN 30.1 pg (27.0-31.0); MEAN CORPUSCULAR HGB CONC 33.8 g/dL (33.0-37.0); MEAN PLATELET VOLUME 7.4 fL (7.2-11.7); MONO # 0.5 K/uL (0.0-0.8); MONO % 6.5 % (0.0-10.0); NEUT # 6.6 K/uL (1.8-7.0); NRBC % 0.2 % (0.0-2.0); PLATELET COUNT 306 K/uL (130-400); RBC 3.97 Mil/uL (4.40-5.90); RED CELL DISTRIBUTION WIDTH 13.9 % (11.5-14.5)
--- NOTE | 2018-02-17 07:45 | CON ---
DATE: 02/14/[address] Rebolledo to Dr. Mancera. SECOND OPINION CONSULTATION I was called for a second opinion consultation by Dr. Ivan. The patient is seen and fully examined on 02/14/2018. The entire chart is reviewed including but not limited to the most recent lab and radiology study results, current and the previous medication list, current and the previous medical events, allergy to medication list as well as all the available current and the previous medical records. Case discussed with the staff at length. A short handwritten consultation sheet is left in the chart at the time of my GI consultation. HISTORY OF PRESENT ILLNESS: This is a 72-year-old male who was admitted to the hospital initially with a main complaint of abdominal pain mainly in the left lower quadrant area with some discomfort of the right upper quadrant area associated with period of nausea but no reported vomiting. No reported active GI bleeding, chest pain, palpitation, chills or fever at that time. No reported active GI bleeding. With initial blood workup indicative of normal ALT, AST and alkaline phosphatase, but elevated total bilirubin to 1.9 which had been elevated since. Initial radiology study results including abdominal ultrasound and CT scan of the abdomen showed cholelithiasis, dilated common bile duct and choledocholithiasis most likely inducing mildly dilated common bile duct. The patient admitted with darker color of the urine than usual. PAST MEDICAL HISTORY: Including but not limited to hypertension, congestive heart failure, Alzheimer's disease with reported peptic ulcer disease by family statement. CURRENT MEDICATIONS: Post admission medication lists were reviewed. SOCIAL HISTORY: No known recent history of alcohol intake or cigarette smoking. FAMILY HISTORY Unknown. ALLERGY TO MEDICATION: UNKNOWN. Initial blood workup at the time of the admission showed leukocytosis of 16.7 which subsequently dropped to 12.4 after initiation of IV antibiotics.. Hemoglobin and hematocrit as well as platelet count remained normal. Creatinine was 0.4. Blood glucose level 135, calcium 8.21 with total protein , and changed it, total protein 8.8 with lipase 12 with subsequent drop of sodium and potassium. Sodium initially was 129. PHYSICAL EXAMINATION: GENERAL: A 72-year-old male, somewhat cooperative, seen with the staff in the floor, afebrile at the time he was seen by me with pulse of 106, respiratory rate 20-22, blood pressure 106/66. HEENT: Showed mildly dry oral mucoid membrane. Bilateral icteric sclerae, nasal cannula at that time. LYMPH NODE: No lymphadenitis or lymphadenopathy. LUNGS: Scattered bilateral crepitation with decreased air entry at bases. HEART: Positive S1 and S2 with increased rate. ABDOMEN: Soft with mild generalized tenderness. No mass or organomegaly. No rebound, tenderness or guarding. There is specific tenderness in the left lower quadrant area with mild tenderness on the right upper quadrant area. RECTAL: The patient refused. EXTREMITIES: Without significant edema, clubbing or cyanosis. NEUROLOGIC: No reported new neurological deficits, no new reported focal deficits. IMPRESSION: 1. Cholelithiasis. 2. Choledocholithiasis. 3. Cholecystitis with possible early stage of ascending cholangitis, less likely in this setting. 4. Past medical history as mentioned above. SUGGESTIONS: 1. Agree with your plan, agree with Dr. Ivan workup plan. 2. The patient will need initially MRCP, then, as indicated, ERCP only if the patient is stable clinically. Otherwise, lap cholecystectomy with intraoperative cholangiogram. 3. Rehydration. 4. Proton pump inhibitors IV. 5. Repeat liver function tests as well as lipase, amylase level. 6. Further recommendation to follow as per Dr. Ivan. 7. I will follow up with you only p.r.n. Thank you for letting me participate in your patient's case management. Jim Rebolledo MD
[2018-02-17 08:11] LABS: ALB/GLOB RATIO 0.8 (1.0-2.1); ALBUMIN 3.1 g/dL (3.5-5.0); ALT/SGPT 20 U/L (21-72); AST/SGOT 26 U/L (17-59); BLOOD UREA NITROGEN 3 mg/dL (9-20); CALCIUM 7.7 mg/dl (8.6-10.4); GFR NON-AFRICAN AMERICAN > 60
--- NOTE | 2018-02-17 08:30 | CP.PCM.PN ---
Subjective - Date & Time of Evaluation Date of Evaluation: 02/17/18 Time of Evaluation: 06:30 - Subjective Subjective: General Surgery Pt seen and examined. No acute events overnight. Still Hyponatremic, Still unable to reach family for consent for OR. Objective - Vital Signs/Intake and Output Vital Signs (last 24 hours): Temp Pulse Resp BP Pulse Ox 99.4 F 86 20 103/68 98 02/17/18 01:00 02/17/18 01:00 02/17/18 01:00 02/17/18 01:00 02/17/18 01:00 Intake and Output: 02/17/18 02/17/18 06:59 18:59 Intake Total 850 Output Total 300 Balance 550 - Medications Medications: Current Medications Albuterol/Ipratropium (Duoneb 3 Mg/0.5 Mg (3 Ml) Ud) 3 ml INH RQ6 [facility] Last Admin: 02/17/18 07:26 Dose: Not Given Docusate Sodium (Colace) 100 mg PO BID [facility] Last Admin: 02/16/18 18:00 Dose: Not Given Azithromycin 500 mg/ Sodium (Chloride) 250 mls @ 250 mls/hr IVPB DAILY [facility]; Protocol Last Admin: 02/16/18 10:54 Dose: 250 mls/hr Cefepime HCl (Maxipime Iv 1 Gm Premix) 1 gm in 50 mls @ 100 mls/hr IVPB 0400,1600 [facility]; Protocol Last Admin: 02/17/18 03:58 Dose: 100 mls/hr Sodium Chloride (Sodium Chloride 0.9%) 1,000 mls @ 50 mls/hr IV .Q20H [facility] Last Admin: 02/17/18 02:40 Dose: 50 mls/hr Morphine Sulfate (Morphine) 2 mg IVP Q6 PRN PRN Reason: Pain, severe (8-10) Last Admin: 02/16/18 07:40 Dose: 2 mg Mupirocin (Bactroban Ointment) 0.25 gm TOP BID [facility] Stop: 02/22/18 10:01 Last Admin: 02/16/18 18:00 Dose: 1 applic Pantoprazole Sodium (Protonix Inj) 40 mg IVP DAILY [facility] Last Admin: 02/16/18 10:53 Dose: 40 mg Polyethylene Glycol (Miralax) 17 gm PO DAILY [facility] Last Admin: 02/16/18 10:47 Dose: Not Given Potassium Chloride (Potassium Chloride Oral Soln) 40 meq PO DAILY [facility] Last Admin: 02/16/18 10:58 Dose: 40 meq - Labs Labs: 02/17/18 07:11 02/17/18 07:11 PT 21.9 SECONDS (9.7-12.2) H 02/13/18 18:36 INR 2.0 02/13/18 18:36 APTT 44 SECONDS (21-34) H 02/13/18 18:36 - Constitutional Appears: Non-toxic, No Acute Distress - Head Exam Head Exam: ATRAUMATIC, NORMOCEPHALIC - Eye Exam Eye Exam: EOMI. absent: Scleral icterus - Respiratory Exam Respiratory Exam: NORMAL BREATHING PATTERN. absent: Respiratory Distress - GI/Abdominal Exam GI & Abdominal Exam: Soft. absent: Distended, Firm, Guarding, Rigid, Tenderness, Rebound - Neurological Exam Neurological Exam: Alert, Awake - Skin Skin Exam: Dry, Warm Assessment and Plan - Assessment and Plan (Free Text) Assessment: 72M with cholecystitis Plan: - OR postponed - pt needs to be medically optimized - Nephro working on hyponatremia - Replete electrolytes PRN - cont IV ABX - Need to speak to family for consent D/W Dr. Shyann Garcia PGY4
[2018-02-17 09:10] LABS: EOSINOPHIL 4 % (0-4); LYMPHOCYTE 8 % (20-40); MONOCYTE 4 % (0-10); NEUTROPHIL 84 % (50-75); TOTAL CELLS COUNTED 100
[2018-02-17 09:11] LABS: PLATELET ESTIMATE NORMAL (NORMAL)
[2018-02-17] MEDS: POLYETHYLENE GLYCOL 3350 17 GM/Dose PACKET PO SCH (10:14)
[2018-02-17] MEDS: Azithromycin 500 MG in Sodium Chloride 0.9% 250 ML IVPB SCH (10:14)
[2018-02-17] MEDS: Potassium Chloride 20 mEq/15 ml LIQ UD PO SCH (10:55)
--- NOTE | 2018-02-17 11:48 | CP.PCM.PN ---
Subjective - Date & Time of Evaluation Date of Evaluation: 02/17/18 Time of Evaluation: 11:45 - Subjective Subjective: Same confusional state biliary scan shows possible obstruction Urine parameters consistent with SIADH Na 126 Objective - Vital Signs/Intake and Output Vital Signs (last 24 hours): Temp Pulse Resp BP Pulse Ox 98.3 F 73 20 126/79 95 02/17/18 07:00 02/17/18 07:00 02/17/18 07:00 02/17/18 07:00 02/17/18 07:00 Intake and Output: 02/17/18 02/17/18 06:59 18:59 Intake Total 850 Output Total 300 Balance 550 - Medications Medications: Current Medications Albuterol/Ipratropium (Duoneb 3 Mg/0.5 Mg (3 Ml) Ud) 3 ml INH RQ6 [facility] Last Admin: 02/17/18 07:26 Dose: Not Given Docusate Sodium (Colace) 100 mg PO BID [facility] Last Admin: 02/17/18 10:14 Dose: Not Given Azithromycin 500 mg/ Sodium (Chloride) 250 mls @ 250 mls/hr IVPB DAILY [facility]; Protocol Last Admin: 02/17/18 10:14 Dose: 250 mls/hr Cefepime HCl (Maxipime Iv 1 Gm Premix) 1 gm in 50 mls @ 100 mls/hr IVPB 0400,1600 [facility]; Protocol Last Admin: 02/17/18 03:58 Dose: 100 mls/hr Sodium Chloride (Sodium Chloride 0.9%) 1,000 mls @ 50 mls/hr IV .Q20H [facility] Last Admin: 02/17/18 02:40 Dose: 50 mls/hr Morphine Sulfate (Morphine) 2 mg IVP Q6 PRN PRN Reason: Pain, severe (8-10) Last Admin: 02/16/18 07:40 Dose: 2 mg Mupirocin (Bactroban Ointment) 0.25 gm TOP BID [facility] Stop: 02/22/18 10:01 Last Admin: 02/17/18 10:54 Dose: 1 applic Pantoprazole Sodium (Protonix Inj) 40 mg IVP DAILY [facility] Last Admin: 02/17/18 10:54 Dose: 40 mg Polyethylene Glycol (Miralax) 17 gm PO DAILY [facility] Last Admin: 02/17/18 10:14 Dose: Not Given Potassium Chloride (Potassium Chloride Oral Soln) 40 meq PO DAILY [facility] Last Admin: 02/17/18 10:55 Dose: Not Given - Labs Labs: 02/17/18 07:11 02/17/18 07:11 PT 21.9 SECONDS (9.7-12.2) H 02/13/18 18:36 INR 2.0 02/13/18 18:36 APTT 44 SECONDS (21-34) H 02/13/18 18:36 - Constitutional Appears: No Acute Distress, Chronically Ill - Head Exam Head Exam: ATRAUMATIC, NORMAL INSPECTION - Eye Exam Eye Exam: EOMI, Normal appearance - Neck Exam Neck Exam: Tenderness. absent: Normal Inspection - Cardiovascular Exam Cardiovascular Exam: REGULAR RHYTHM, +S1 - GI/Abdominal Exam GI & Abdominal Exam: Soft. absent: Tenderness - Extremities Exam Extremities Exam: Normal Inspection. absent: Tenderness - Neurological Exam Neurological Exam: Altered - Skin Skin Exam: Dry, Warm Assessment and Plan (1) Hyponatremia Status: Acute (2) Alzheimer disease Status: Acute (3) COPD exacerbation Status: Acute - Assessment and Plan (Free Text) Plan: Repeat parameters for SIADH If na drops can give tovalptan
--- NOTE | 2018-02-17 13:19 | CP.PCM.PN ---
Subjective - Date & Time of Evaluation Date of Evaluation: 02/17/18 Time of Evaluation: 13:17 - Subjective Subjective: CHIEF COMPLAINTS TODAY : Patient is more alert and awake history obtained with patients relative Patient has less abdominal pain no nausea or vomiting ROS. HEENT : N. Resp : No cough, wheezing ,pleuritic CP ,or hemoptysis Cardio : No anginal CP, PND, orthopnea, palpitation GI : No abd.pain, n/v ,diarrhea or GI bleeding . [employer] : No headache, vertigo, focal deficit. Musculoskel : No joint swelling , Derm : No rash Psych : Normal affect. Ext : No swelling ,calf pain PE. Pt. is alert awake in no distress. V.S As noted in the chart Head ,ear nose,throat and eyes : Normal. Neck : Supple with normal carotids. Lungs: Clear air entry. Heart : S1 & S2 normal with S4. No murmur. Abd : Soft non tender with normal bowel sounds. Neuro : Moves all ext. with no localized deficit. Ext : No edema with intact pulses.Non tender calves Derm : No rashes or decubitus ulcer. 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 Objective - Vital Signs/Intake and Output Vital Signs (last 24 hours): Temp Pulse Resp BP Pulse Ox 98.3 F 73 20 126/79 95 02/17/18 07:00 02/17/18 07:00 02/17/18 07:00 02/17/18 07:00 02/17/18 07:00 Intake and Output: 02/17/18 02/17/18 11:59 23:59 Intake Total 400 Output Total 300 Balance 100 - Medications Medications: Current Medications Albuterol/Ipratropium (Duoneb 3 Mg/0.5 Mg (3 Ml) Ud) 3 ml INH RQ6 [facility] Last Admin: 02/17/18 13:13 Dose: Not Given Docusate Sodium (Colace) 100 mg PO BID [facility] Last Admin: 02/17/18 10:14 Dose: Not Given Azithromycin 500 mg/ Sodium (Chloride) 250 mls @ 250 mls/hr IVPB DAILY [facility]; Protocol Last Admin: 02/17/18 10:14 Dose: 250 mls/hr Cefepime HCl (Maxipime Iv 1 Gm Premix) 1 gm in 50 mls @ 100 mls/hr IVPB 0400,1600 [facility]; Protocol Last Admin: 02/17/18 03:58 Dose: 100 mls/hr Sodium Chloride (Sodium Chloride 0.9%) 1,000 mls @ 50 mls/hr IV .Q20H [facility] Last Admin: 02/17/18 02:40 Dose: 50 mls/hr Morphine Sulfate (Morphine) 2 mg IVP Q6 PRN PRN Reason: Pain, severe (8-10) Last Admin: 02/16/18 07:40 Dose: 2 mg Mupirocin (Bactroban Ointment) 0.25 gm TOP BID [facility] Stop: 02/22/18 10:01 Last Admin: 02/17/18 10:54 Dose: 1 applic Pantoprazole Sodium (Protonix Inj) 40 mg IVP DAILY [facility] Last Admin: 02/17/18 10:54 Dose: 40 mg Polyethylene Glycol (Miralax) 17 gm PO DAILY [facility] Last Admin: 02/17/18 10:14 Dose: Not Given Potassium Chloride (Potassium Chloride Oral Soln) 40 meq PO DAILY [facility] Last Admin: 02/17/18 10:55 Dose: Not Given - Labs Labs: 02/17/18 07:11 02/17/18 07:11 PT 21.9 SECONDS (9.7-12.2) H 02/13/18 18:36 INR 2.0 02/13/18 18:36 APTT 44 SECONDS (21-34) H 02/13/18 18:36
--- NOTE | 2018-02-17 13:53 | CP.PCM.PN ---
Subjective - Date & Time of Evaluation Date of Evaluation: 02/17/18 Time of Evaluation: 13:53 - Subjective Subjective: AFEBRILE, AWAKE, FEELING BETTER. DENIES COUGH/OR SOB. MILD ABDOMINAL PAIN +VE RUQ. TOLERATING LIQUIDS ROS ; UNREMARKABLE SEEN BY RENAL AND EVENTS NOTED. SURGERY POSTPONED BECAUSE OF HYPONATREMIA Objective - Vital Signs/Intake and Output Vital Signs (last 24 hours): Temp Pulse Resp BP Pulse Ox 98.3 F 73 20 126/79 95 02/17/18 07:00 02/17/18 07:00 02/17/18 07:00 02/17/18 07:00 02/17/18 07:00 Intake and Output: 02/17/18 02/17/18 06:59 18:59 Intake Total 850 Output Total 300 Balance 550 - Medications Medications: Current Medications Albuterol/Ipratropium (Duoneb 3 Mg/0.5 Mg (3 Ml) Ud) 3 ml INH RQ6 [facility] Last Admin: 02/17/18 13:13 Dose: Not Given Docusate Sodium (Colace) 100 mg PO BID [facility] Last Admin: 02/17/18 10:14 Dose: Not Given Azithromycin 500 mg/ Sodium (Chloride) 250 mls @ 250 mls/hr IVPB DAILY [facility]; Protocol Last Admin: 02/17/18 10:14 Dose: 250 mls/hr Cefepime HCl (Maxipime Iv 1 Gm Premix) 1 gm in 50 mls @ 100 mls/hr IVPB 0400,1600 [facility]; Protocol Last Admin: 02/17/18 03:58 Dose: 100 mls/hr Sodium Chloride (Sodium Chloride 0.9%) 1,000 mls @ 50 mls/hr IV .Q20H [facility] Last Admin: 02/17/18 02:40 Dose: 50 mls/hr Morphine Sulfate (Morphine) 2 mg IVP Q6 PRN PRN Reason: Pain, severe (8-10) Last Admin: 02/16/18 07:40 Dose: 2 mg Mupirocin (Bactroban Ointment) 0.25 gm TOP BID [facility] Stop: 02/22/18 10:01 Last Admin: 02/17/18 10:54 Dose: 1 applic Pantoprazole Sodium (Protonix Inj) 40 mg IVP DAILY [facility] Last Admin: 02/17/18 10:54 Dose: 40 mg Polyethylene Glycol (Miralax) 17 gm PO DAILY [facility] Last Admin: 02/17/18 10:14 Dose: Not Given Potassium Chloride (Potassium Chloride Oral Soln) 40 meq PO DAILY [facility] Last Admin: 02/17/18 10:55 Dose: Not Given - Labs Labs: 02/17/18 07:11 02/17/18 07:11 PT 21.9 SECONDS (9.7-12.2) H 02/13/18 18:36 INR 2.0 02/13/18 18:36 APTT 44 SECONDS (21-34) H 02/13/18 18:36 - Constitutional Appears: No Acute Distress, Cachectic, Chronically Ill - Head Exam Head Exam: NORMAL INSPECTION - Eye Exam Eye Exam: EOMI, PERRL - ENT Exam ENT Exam: Normal Oropharynx - Neck Exam Neck Exam: Normal Inspection - Respiratory Exam Respiratory Exam: Rhonchi (B/L), NORMAL BREATHING PATTERN - Cardiovascular Exam Cardiovascular Exam: Irregular Rhythm, +S1, +S2 - GI/Abdominal Exam GI & Abdominal Exam: Soft, Tenderness (RUQ .), Normal Bowel Sounds. absent: Guarding, Rebound - Extremities Exam Extremities Exam: Normal Capillary Refill, Pedal Edema. absent: Calf Tenderness - Neurological Exam Neurological Exam: Alert, Awake, CN II-XII Intact, Oriented x3, Reflexes Normal - Psychiatric Exam Psychiatric exam: Normal Mood - Skin Skin Exam: Normal Color, Warm Assessment and Plan (1) Pneumonia Status: Acute (2) Abdominal pain Status: Acute (3) COPD exacerbation Status: Acute (4) Cachexia Status: Acute (5) Cholelithiases Status: Acute (6) Alzheimer disease Status: Acute - Assessment and Plan (Free Text) Plan: CONTINUE iv CEFEPIME 1 G EVERY 12 HOURLY 02/13/18. CONTINUE iv ZITHROMAX 500 MG ONCE A DAY DAILY 02/13/18. SEEN BY RENAL FOR CORRECTION OF HYPONATREMIA. AWAITING SURGERY AFTER MEDICAL STABILIZATION. CHECK 2D ECHO ORDERED BY PMD CONTINUE PULMONARY TOILET. PER GI/SURGERY.
--- NOTE | 2018-02-17 14:28 | CARD ---
APPROVED REPORT Date of service: 02/17/2018 EXAM: Two-dimensional and M-mode echocardiogram with Doppler and color Doppler. Other Information Quality : GoodRhythm : INDICATION LV Function: bradycardia 2D DIMENSIONS IVSd1.0 (0.7-1.1cm)LVDd3.8 (3.9-5.9cm) PWd1.1 (0.7-1.1cm)LA Nbdpte64 (18-58mL) LVDs2.1 (2.5-4.0cm)FS (%) 44.9 % LVEF (%)77.0 (>50%)LVEF (Galvez's)64.10 % M-Mode DIMENSIONS Left Atrium (MM)3.15 (2.5-4.0cm)IVSd1.08 (0.7-1.1cm) Aortic Root3.76 (2.2-3.7cm)LVDd3.89 (4.0-5.6cm) Aortic Cusp Exc.2.31 (1.5-2.0cm)PWd0.90 (0.7-1.1cm) FS (%) 45 %LVDs2.15 (2.0-3.8cm) LVEF (%)77 (>50%) Mitral Valve MV E Vwreqgbl17.8cm/sMV A Cqlfkgtk54.7cm/sE/A ratio0.5 TDI Lateral E' Peak V8.90cm/sMedial E' Peak V5.20cm/sE/Lateral E'5.0 E/Medial E'8.6 Tricuspid Valve TR Peak Djbqirbt888tn/sTR Peak Gr.[id number] LEFT VENTRICLE The left ventricle is normal size. There is normal left ventricular wall thickness. The left ventricular function is normal. The left ventricular ejection fraction is within the normal range. No regional wall motion abnormalities noted. The left ventricular diastolic function is normal. No left ventricle thrombus noted on this study. There is no ventricular septal defect visualized. There is no left ventricular aneurysm. There is no mass noted in the left ventricle. RIGHT VENTRICLE The right ventricle is normal size. There is normal right ventricular wall thickness. The right ventricular systolic function is normal. ATRIA The left atrium size is normal. The right atrium size is normal. The interatrial septum is intact with no evidence for an atrial septal defect. AORTIC VALVE The aortic valve is normal in structure and function. No aortic regurgitation is present. There is no aortic valvular stenosis. There is no aortic valvular vegetation. MITRAL VALVE The mitral valve is normal in structure and function. There is no evidence of mitral valve prolapse. There is no mitral valve stenosis. There is no mitral valve regurgitation noted. TRICUSPID VALVE The tricuspid valve is normal in structure and function. There is moderate tricuspid regurgitation. Right ventricular systolic pressure is estimated at 50-60 mmHg. There is no tricuspid valve prolapse or vegetation. There is no tricuspid valve stenosis. PULMONIC VALVE The pulmonary valve is normal in structure and function. There is no pulmonic valvular regurgitation. There is no pulmonic valvular stenosis. GREAT VESSELS The aortic root is normal in size. The ascending aorta is normal in size. The pulmonary artery is normal. The IVC is normal in size and collapses >50% with inspiration. PERICARDIAL EFFUSION The pericardium appears normal. There is no pleural effusion. <Conclusion> The left ventricular function is normal. The left ventricular ejection fraction is within the normal range. There is moderate tricuspid regurgitation. Right ventricular systolic pressure is estimated at 50-60 mmHg.
--- NOTE | 2018-02-17 16:50 | CP.PCM.PN ---
Subjective - Date & Time of Evaluation Date of Evaluation: 02/17/18 Time of Evaluation: 16:46 - Subjective Subjective: PT AWAKE,. WEAK., NO SOB. NO COUGH. ROS; OTHERWISE NEG. Objective - Vital Signs/Intake and Output Vital Signs (last 24 hours): Temp Pulse Resp BP Pulse Ox 97.1 F L 101 H 20 100/65 96 02/17/18 15:30 02/17/18 15:30 02/17/18 15:30 02/17/18 15:30 02/17/18 15:30 Intake and Output: 02/17/18 02/17/18 06:59 18:59 Intake Total 850 1030 Output Total 300 500 Balance 550 530 - Medications Medications: Current Medications Albuterol/Ipratropium (Duoneb 3 Mg/0.5 Mg (3 Ml) Ud) 3 ml INH RQ6 [facility] Last Admin: 02/17/18 13:13 Dose: Not Given Docusate Sodium (Colace) 100 mg PO BID [facility] Last Admin: 02/17/18 10:14 Dose: Not Given Azithromycin 500 mg/ Sodium (Chloride) 250 mls @ 250 mls/hr IVPB DAILY [facility]; Protocol Last Admin: 02/17/18 10:14 Dose: 250 mls/hr Cefepime HCl (Maxipime Iv 1 Gm Premix) 1 gm in 50 mls @ 100 mls/hr IVPB 0400,1600 [facility]; Protocol Last Admin: 02/17/18 16:25 Dose: 100 mls/hr Sodium Chloride (Sodium Chloride 0.9%) 1,000 mls @ 50 mls/hr IV .Q20H [facility] Last Admin: 02/17/18 02:40 Dose: 50 mls/hr Mupirocin (Bactroban Ointment) 0.25 gm TOP BID [facility] Stop: 02/22/18 10:01 Last Admin: 02/17/18 10:54 Dose: 1 applic Pantoprazole Sodium (Protonix Inj) 40 mg IVP DAILY [facility] Last Admin: 02/17/18 10:54 Dose: 40 mg Polyethylene Glycol (Miralax) 17 gm PO DAILY [facility] Last Admin: 02/17/18 10:14 Dose: Not Given Potassium Chloride (Potassium Chloride Oral Soln) 40 meq PO DAILY [facility] Last Admin: 02/17/18 10:55 Dose: Not Given - Labs Labs: 02/17/18 07:11 02/17/18 07:11 PT 21.9 SECONDS (9.7-12.2) H 02/13/18 18:36 INR 2.0 02/13/18 18:36 APTT 44 SECONDS (21-34) H 02/13/18 18:36 - Constitutional Appears: No Acute Distress, Confused, Chronically Ill - Head Exam Head Exam: ATRAUMATIC, NORMOCEPHALIC - Eye Exam Eye Exam: EOMI, Normal appearance - ENT Exam ENT Exam: Mucous Membranes Moist - Neck Exam Neck Exam: Normal Inspection - Respiratory Exam Respiratory Exam: Decreased Breath Sounds. absent: Accessory Muscle Use, Respiratory Distress - Cardiovascular Exam Cardiovascular Exam: RRR, +S1, +S2 - GI/Abdominal Exam GI & Abdominal Exam: Soft. absent: Tenderness - Rectal Exam Rectal Exam: Deferred - Extremities Exam Extremities Exam: absent: Calf Tenderness, Pedal Edema - Back Exam Back Exam: absent: CVA tenderness (L), CVA tenderness (R) - Neurological Exam Neurological Exam: Awake, CN II-XII Intact. absent: Oriented x3 - Psychiatric Exam Psychiatric exam: Normal Mood - Skin Skin Exam: absent: Rash Assessment and Plan (1) Alzheimer disease Status: Acute (2) Cholelithiases Status: Acute (3) COPD exacerbation Status: Acute (4) Abdominal pain Status: Acute (5) Pneumonia Status: Acute (6) Cachexia Status: Acute - Assessment and Plan (Free Text) Assessment: RESP STATUS UNLABORED., CONT PULM TOILET., AND NEB BD. ABG NOTED +CO2 RETENTION NOTED., DECREASE FIO2. MONITOR O2 SAT. CXR REVIEWED. CONT AB PER ID. GI AND SURG F/U NOTED. PROG POOR. DISCUSSED WITH STAFF AT LENGTH.
[2018-02-18] MEDS: Albuterol-Ipratrop 3 mg / 0.5 (3 ml) UD INH SCH ×4 (01:13→19:53)
[2018-02-18] MEDS: Cefepime IV 1 gm in Dextrose 1 GM/50 ML BAG IVPB SCH ×2 (04:45→16:13)
[2018-02-18] MEDS: Sodium Chloride 0.9% 1,000 ML IV SCH (04:51)
[2018-02-18 07:47] LABS: BASO # 0.1 K/uL (0.0-0.2); BASO % 1.2 % (0.0-2.0); EOS # 0.3 K/uL (0.0-0.7); HEMOGLOBIN 12.1 g/dL (12.0-18.0); LYMPH # 0.5 K/uL (1.0-4.3); MEAN CELL VOLUME 87.5 fL (80.0-94.0); MEAN CORPUSCULAR HEMOGLOBIN 29.8 pg (27.0-31.0); MEAN PLATELET VOLUME 6.9 fL (7.2-11.7); MONO # 0.5 K/uL (0.0-0.8); MONO % 6.9 % (0.0-10.0); NEUT # 5.5 K/uL (1.8-7.0); NEUT % 79.9 % (50.0-75.0); PLATELET COUNT 319 K/uL (130-400); RBC 4.05 Mil/uL (4.40-5.90); WHITE BLOOD COUNT 6.8 K/uL (4.8-10.8)
[2018-02-18 08:25] LABS: ALB/GLOB RATIO 0.8 (1.0-2.1); ALBUMIN 3.3 g/dL (3.5-5.0); ALT/SGPT 14 U/L (21-72); AST/SGOT 21 U/L (17-59); BLOOD UREA NITROGEN 3 mg/dL (9-20); CALCIUM 7.6 mg/dl (8.6-10.4); GFR NON-AFRICAN AMERICAN > 60; URIC ACID 4.5 mg/dL (3.5-8.5)
[2018-02-18 08:39] LABS: BANDS 2 % (0-2); LYMPHOCYTE 5 % (20-40); MONOCYTE 7 % (0-10); NEUTROPHIL 86 % (50-75); TOTAL CELLS COUNTED 100
--- NOTE | 2018-02-18 08:39 | CP.PCM.PN ---
Subjective - Date & Time of Evaluation Date of Evaluation: 02/18/18 Time of Evaluation: 08:25 - Subjective Subjective: General Surgery Progress Note for Dr. Boothe This 72M was seen and examined this AM at bedside. No acute events overnight. He he still complains of abdominal pain. Denies any chest pain or SOB. No fevers chills chest pain. No new complaints at this time. Objective - Vital Signs/Intake and Output Vital Signs (last 24 hours): Temp Pulse Resp BP Pulse Ox 97.3 F L 107 H 20 121/78 94 L 02/18/18 00:00 02/18/18 00:00 02/18/18 00:00 02/18/18 00:00 02/18/18 00:00 Intake and Output: 02/18/18 02/18/18 06:59 18:59 Intake Total 925 Output Total 400 Balance 525 - Medications Medications: Current Medications Albuterol/Ipratropium (Duoneb 3 Mg/0.5 Mg (3 Ml) Ud) 3 ml INH RQ6 [facility] Last Admin: 02/18/18 01:13 Dose: Not Given Docusate Sodium (Colace) 100 mg PO BID [facility] Last Admin: 02/17/18 18:24 Dose: 100 mg Azithromycin 500 mg/ Sodium (Chloride) 250 mls @ 250 mls/hr IVPB DAILY [facility]; Protocol Last Admin: 02/17/18 10:14 Dose: 250 mls/hr Cefepime HCl (Maxipime Iv 1 Gm Premix) 1 gm in 50 mls @ 100 mls/hr IVPB 0400,1600 [facility]; Protocol Last Admin: 02/18/18 04:45 Dose: 100 mls/hr Sodium Chloride (Sodium Chloride 0.9%) 1,000 mls @ 50 mls/hr IV .Q20H [facility] Last Admin: 02/18/18 04:51 Dose: 50 mls/hr Morphine Sulfate (Morphine) 2 mg IVP Q6H PRN PRN Reason: Pain, severe (8-10) Last Admin: 02/18/18 08:09 Dose: 2 mg Mupirocin (Bactroban Ointment) 0.25 gm TOP BID [facility] Stop: 02/22/18 10:01 Last Admin: 02/17/18 18:23 Dose: 1 applic Pantoprazole Sodium (Protonix Ec Tab) 40 mg PO DAILY [facility] Polyethylene Glycol (Miralax) 17 gm PO DAILY [facility] Last Admin: 02/17/18 10:14 Dose: Not Given Potassium Chloride (Potassium Chloride Oral Soln) 40 meq PO DAILY [facility] Last Admin: 02/17/18 10:55 Dose: Not Given - Labs Labs: 02/18/18 07:39 02/18/18 07:39 PT 21.9 SECONDS (9.7-12.2) H 02/13/18 18:36 INR 2.0 02/13/18 18:36 APTT 44 SECONDS (21-34) H 02/13/18 18:36 - Constitutional Appears: Non-toxic, No Acute Distress - Head Exam Head Exam: NORMAL INSPECTION - Eye Exam Eye Exam: EOMI - ENT Exam ENT Exam: Mucous Membranes Moist - Respiratory Exam Respiratory Exam: NORMAL BREATHING PATTERN - Cardiovascular Exam Cardiovascular Exam: +S1, +S2 - GI/Abdominal Exam GI & Abdominal Exam: Soft, Tenderness. absent: Guarding, Rigid - Neurological Exam Neurological Exam: Alert, Awake - Psychiatric Exam Psychiatric exam: Normal Affect, Normal Mood - Skin Skin Exam: Dry, Intact Assessment and Plan - Assessment and Plan (Free Text) Assessment: 72M with cholecystitis Plan: - OR consented - Follow up CMP - Nephro working on hyponatremia - Replete electrolytes PRN - cont IV ABX D/W Dr. Shyann Locke PGY3
[2018-02-18 08:40] LABS: PLATELET ESTIMATE NORMAL (NORMAL)
--- NOTE | 2018-02-18 08:58 | CP.PCM.PN ---
Subjective - Date & Time of Evaluation Date of Evaluation: 02/18/18 Time of Evaluation: 08:55 - Subjective Subjective: PT ALERT, NO COUGH. WEAK. ROS; OTHERWISE NEG Objective - Vital Signs/Intake and Output Vital Signs (last 24 hours): Temp Pulse Resp BP Pulse Ox 97.3 F L 107 H 20 121/78 94 L 02/18/18 00:00 02/18/18 00:00 02/18/18 00:00 02/18/18 00:00 02/18/18 00:00 Intake and Output: 02/18/18 02/18/18 06:59 18:59 Intake Total 925 Output Total 400 Balance 525 - Medications Medications: Current Medications Albuterol/Ipratropium (Duoneb 3 Mg/0.5 Mg (3 Ml) Ud) 3 ml INH RQ6 [facility] Last Admin: 02/18/18 01:13 Dose: Not Given Docusate Sodium (Colace) 100 mg PO BID [facility] Last Admin: 02/17/18 18:24 Dose: 100 mg Azithromycin 500 mg/ Sodium (Chloride) 250 mls @ 250 mls/hr IVPB DAILY [facility]; Protocol Last Admin: 02/17/18 10:14 Dose: 250 mls/hr Cefepime HCl (Maxipime Iv 1 Gm Premix) 1 gm in 50 mls @ 100 mls/hr IVPB 0400,1600 [facility]; Protocol Last Admin: 02/18/18 04:45 Dose: 100 mls/hr Sodium Chloride (Sodium Chloride 0.9%) 1,000 mls @ 50 mls/hr IV .Q20H [facility] Last Admin: 02/18/18 04:51 Dose: 50 mls/hr Morphine Sulfate (Morphine) 2 mg IVP Q6H PRN PRN Reason: Pain, severe (8-10) Last Admin: 02/18/18 08:09 Dose: 2 mg Mupirocin (Bactroban Ointment) 0.25 gm TOP BID [facility] Stop: 02/22/18 10:01 Last Admin: 02/17/18 18:23 Dose: 1 applic Pantoprazole Sodium (Protonix Ec Tab) 40 mg PO DAILY [facility] Polyethylene Glycol (Miralax) 17 gm PO DAILY [facility] Last Admin: 02/17/18 10:14 Dose: Not Given Potassium Chloride (Potassium Chloride Oral Soln) 40 meq PO DAILY [facility] Last Admin: 02/17/18 10:55 Dose: Not Given - Labs Labs: 02/18/18 07:39 02/18/18 07:39 PT 21.9 SECONDS (9.7-12.2) H 02/13/18 18:36 INR 2.0 02/13/18 18:36 APTT 44 SECONDS (21-34) H 02/13/18 18:36 - Constitutional Appears: No Acute Distress, Chronically Ill - Head Exam Head Exam: ATRAUMATIC, NORMOCEPHALIC - Eye Exam Eye Exam: EOMI, Normal appearance. absent: Scleral icterus - ENT Exam ENT Exam: Mucous Membranes Moist - Neck Exam Neck Exam: Normal Inspection - Respiratory Exam Respiratory Exam: Decreased Breath Sounds. absent: Accessory Muscle Use, Wheezes, Respiratory Distress - Cardiovascular Exam Cardiovascular Exam: RRR, +S1, +S2 - GI/Abdominal Exam GI & Abdominal Exam: Soft. absent: Tenderness - Rectal Exam Rectal Exam: Deferred - Extremities Exam Extremities Exam: absent: Calf Tenderness, Pedal Edema - Back Exam Back Exam: absent: CVA tenderness (L), CVA tenderness (R) - Neurological Exam Neurological Exam: Alert, Awake, CN II-XII Intact. absent: Oriented x3 - Skin Skin Exam: absent: Rash Assessment and Plan (1) Alzheimer disease Status: Acute (2) Cholelithiases Status: Acute (3) COPD exacerbation Status: Acute (4) Abdominal pain Status: Acute (5) Pneumonia Status: Acute (6) Cachexia Status: Acute - Assessment and Plan (Free Text) Assessment: RESP STATUS NO SIG CHANGE. CONT PULM TOILET., NEB BD., MONITOR O2 SAT, TAPER FIO 2. CXR REVIEWED. AFEBRILE ON AB. ON TELEMONITOR. PROG POOR. DISCUSSED WITH STAFF.
[2018-02-18] MEDS: Pantoprazole 40 mg EC Tab PO SCH (09:38)
[2018-02-18] MEDS: Potassium Chloride 20 mEq/15 ml LIQ UD PO SCH (09:38)
[2018-02-18] MEDS: Azithromycin 500 MG in Sodium Chloride 0.9% 250 ML IVPB SCH (09:39)
[2018-02-18] MEDS: POLYETHYLENE GLYCOL 3350 17 GM/Dose PACKET PO SCH (09:45)
[2018-02-18] MEDS ORDERED: Tolvaptan 15 MG TAB PO ONE (13:09)
--- NOTE | 2018-02-18 13:10 | CP.PCM.PN ---
Subjective - Date & Time of Evaluation Date of Evaluation: 02/18/18 Time of Evaluation: 13:09 - Subjective Subjective: plan for cholecystectomy noted, na 125 comfortable no n/v/d afebrile Objective - Vital Signs/Intake and Output Vital Signs (last 24 hours): Temp Pulse Resp BP Pulse Ox 97.3 F L 107 H 20 121/78 94 L 02/18/18 00:00 02/18/18 00:00 02/18/18 00:00 02/18/18 00:00 02/18/18 00:00 Intake and Output: 02/18/18 02/18/18 06:59 18:59 Intake Total 925 Output Total 400 Balance 525 - Medications Medications: Current Medications Albuterol/Ipratropium (Duoneb 3 Mg/0.5 Mg (3 Ml) Ud) 3 ml INH RQ6 [facility] Last Admin: 02/18/18 08:00 Dose: Not Given Docusate Sodium (Colace) 100 mg PO BID [facility] Last Admin: 02/18/18 09:44 Dose: Not Given Azithromycin 500 mg/ Sodium (Chloride) 250 mls @ 250 mls/hr IVPB DAILY [facility]; Protocol Last Admin: 02/18/18 09:39 Dose: 250 mls/hr Cefepime HCl (Maxipime Iv 1 Gm Premix) 1 gm in 50 mls @ 100 mls/hr IVPB 0400,1600 [facility]; Protocol Last Admin: 02/18/18 04:45 Dose: 100 mls/hr Morphine Sulfate (Morphine) 2 mg IVP Q6H PRN PRN Reason: Pain, severe (8-10) Last Admin: 02/18/18 08:09 Dose: 2 mg Mupirocin (Bactroban Ointment) 0.25 gm TOP BID [facility] Stop: 02/22/18 10:01 Last Admin: 02/18/18 09:41 Dose: 1 applic Pantoprazole Sodium (Protonix Ec Tab) 40 mg PO DAILY [facility] Last Admin: 02/18/18 09:38 Dose: 40 mg Polyethylene Glycol (Miralax) 17 gm PO DAILY [facility] Last Admin: 02/18/18 09:45 Dose: Not Given Potassium Chloride (Potassium Chloride Oral Soln) 40 meq PO DAILY [facility] Last Admin: 02/18/18 09:38 Dose: 40 meq Tolvaptan (Samsca) 15 mg PO ONCE ONE Stop: 02/18/18 13:10 - Labs Labs: 02/18/18 07:39 02/18/18 07:39 PT 21.9 SECONDS (9.7-12.2) H 02/13/18 18:36 INR 2.0 02/13/18 18:36 APTT 44 SECONDS (21-34) H 02/13/18 18:36 - Constitutional Appears: Non-toxic, No Acute Distress, Cachectic, Chronically Ill - Head Exam Head Exam: NORMAL INSPECTION - Eye Exam Eye Exam: Normal appearance, PERRL - ENT Exam ENT Exam: Mucous Membranes Moist, Normal Exam - Neck Exam Neck Exam: Full ROM, Normal Inspection - Respiratory Exam Respiratory Exam: Clear to Ausculation Bilateral, NORMAL BREATHING PATTERN - Cardiovascular Exam Cardiovascular Exam: REGULAR RHYTHM, RRR - GI/Abdominal Exam GI & Abdominal Exam: Distended, Soft - Extremities Exam Extremities Exam: Full ROM, Normal Inspection - Neurological Exam Neurological Exam: Alert, Awake - Psychiatric Exam Psychiatric exam: Normal Affect, Normal Mood - Skin Skin Exam: Dry, Intact Assessment and Plan (1) Abdominal pain Status: Acute (2) Cholecystitis Status: Acute (3) Hyponatremia Status: Acute - Assessment and Plan (Free Text) Assessment: siadh dc iv saline one dose of tolvaptan today repeat chem sara am
--- NOTE | 2018-02-18 14:01 | PQF ---
PROVIDER RESPONSE TEXT: Provider was unable to determine a response for this query. REVIEWER QUERY TEXT: Clarification of Clinical Diagnostic Findings Please clarify documentation or clinical relevance for the clinical / diagnostic findings or whether those are insignificant or unable to be further specified. The patient's Clinical Indicators include: Na 129?127 IV Fluids .9 ns @100 cc/hr Query created by: Jazz Hensley on 02/14/2018 4:27 PM Electronically signed by: Cornelia Mancera MD 02/18/2018 1:59 PM
--- NOTE | 2018-02-18 14:07 | CP.PCM.PN ---
Subjective - Date & Time of Evaluation Date of Evaluation: 02/18/18 Time of Evaluation: 14:06 - Subjective Subjective: CHIEF COMPLAINTS TODAY : Patient has less abdominal pain no nausea or vomiting ROS. HEENT : N. Resp : No cough, wheezing ,pleuritic CP ,or hemoptysis Cardio : No anginal CP, PND, orthopnea, palpitation GI : No abd.pain, n/v ,diarrhea or GI bleeding . 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 Musculoskel : No joint swelling , Derm : No rash Psych : Normal affect. Ext : No swelling ,calf pain PE. Pt. is alert awake in no distress. V.S As noted in the chart Head ,ear nose,throat and eyes : Normal. Neck : Supple with normal carotids. Lungs: Clear air entry. Heart : S1 & S2 normal with S4. No murmur. Abd : Soft non tender with normal bowel sounds. Neuro : Moves all ext. with no localized deficit. Ext : No edema with intact pulses.Non tender calves Derm : No rashes or decubitus ulcer. 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, fluid restriction Tolvaptan added as the sodium is still low Objective - Vital Signs/Intake and Output Vital Signs (last 24 hours): Temp Pulse Resp BP Pulse Ox 97.3 F L 107 H 20 121/78 94 L 02/18/18 00:00 02/18/18 00:00 02/18/18 00:00 02/18/18 00:00 02/18/18 00:00 - Medications Medications: Current Medications Albuterol/Ipratropium (Duoneb 3 Mg/0.5 Mg (3 Ml) Ud) 3 ml INH RQ6 [facility] Last Admin: 02/18/18 13:28 Dose: Not Given Docusate Sodium (Colace) 100 mg PO BID [facility] Last Admin: 02/18/18 09:44 Dose: Not Given Azithromycin 500 mg/ Sodium (Chloride) 250 mls @ 250 mls/hr IVPB DAILY [facility]; Protocol Last Admin: 02/18/18 09:39 Dose: 250 mls/hr Cefepime HCl (Maxipime Iv 1 Gm Premix) 1 gm in 50 mls @ 100 mls/hr IVPB 0400,1600 [facility]; Protocol Last Admin: 02/18/18 04:45 Dose: 100 mls/hr Morphine Sulfate (Morphine) 2 mg IVP Q6H PRN PRN Reason: Pain, severe (8-10) Last Admin: 02/18/18 08:09 Dose: 2 mg Mupirocin (Bactroban Ointment) 0.25 gm TOP BID [facility] Stop: 02/22/18 10:01 Last Admin: 02/18/18 09:41 Dose: 1 applic Pantoprazole Sodium (Protonix Ec Tab) 40 mg PO DAILY [facility] Last Admin: 02/18/18 09:38 Dose: 40 mg Polyethylene Glycol (Miralax) 17 gm PO DAILY [facility] Last Admin: 02/18/18 09:45 Dose: Not Given Potassium Chloride (Potassium Chloride Oral Soln) 40 meq PO DAILY [facility] Last Admin: 02/18/18 09:38 Dose: 40 meq - Labs Labs: 02/18/18 07:39 02/18/18 07:39 PT 21.9 SECONDS (9.7-12.2) H 02/13/18 18:36 INR 2.0 02/13/18 18:36 APTT 44 SECONDS (21-34) H 02/13/18 18:36
--- NOTE | 2018-02-18 23:49 | CP.PCM.PN ---
Subjective - Date & Time of Evaluation Date of Evaluation: 02/18/18 Time of Evaluation: 23:49 - Subjective Subjective: AFEBRILE, AWAKE, DENIES COUGH/OR SOB. MILD ABDOMINAL PAIN +VE RUQ. TOLERATING LIQUIDS ROS ; UNREMARKABLE labs ; hyponatremic NA 125 SEC SIADH TOLVAPTIN ADDED BY NEPHROLOGY. Objective - Vital Signs/Intake and Output Vital Signs (last 24 hours): Temp Pulse Resp BP Pulse Ox 97.4 F L 61 20 101/63 95 02/18/18 16:00 02/18/18 16:00 02/18/18 16:00 02/18/18 16:00 02/18/18 16:00 Intake and Output: 02/18/18 02/19/18 18:59 06:59 Intake Total 400 550 Output Total 550 Balance 400 0 - Medications Medications: Current Medications Albuterol/Ipratropium (Duoneb 3 Mg/0.5 Mg (3 Ml) Ud) 3 ml INH RQ6 [facility] Last Admin: 02/18/18 19:53 Dose: Not Given Docusate Sodium (Colace) 100 mg PO BID [facility] Last Admin: 02/18/18 17:55 Dose: 100 mg Azithromycin 500 mg/ Sodium (Chloride) 250 mls @ 250 mls/hr IVPB DAILY [facility]; Protocol Last Admin: 02/18/18 09:39 Dose: 250 mls/hr Cefepime HCl (Maxipime Iv 1 Gm Premix) 1 gm in 50 mls @ 100 mls/hr IVPB 0400,1600 [facility]; Protocol Last Admin: 02/18/18 16:13 Dose: 100 mls/hr Morphine Sulfate (Morphine) 2 mg IVP Q6H PRN PRN Reason: Pain, severe (8-10) Last Admin: 02/18/18 08:09 Dose: 2 mg Mupirocin (Bactroban Ointment) 0.25 gm TOP BID [facility] Stop: 02/22/18 10:01 Last Admin: 02/18/18 17:55 Dose: 1 applic Pantoprazole Sodium (Protonix Ec Tab) 40 mg PO DAILY [facility] Last Admin: 02/18/18 09:38 Dose: 40 mg Polyethylene Glycol (Miralax) 17 gm PO DAILY [facility] Last Admin: 02/18/18 09:45 Dose: Not Given Potassium Chloride (Potassium Chloride Oral Soln) 40 meq PO DAILY [facility] Last Admin: 02/18/18 09:38 Dose: 40 meq - Labs Labs: 02/18/18 07:39 02/18/18 07:39 PT 21.9 SECONDS (9.7-12.2) H 02/13/18 18:36 INR 2.0 02/13/18 18:36 APTT 44 SECONDS (21-34) H 02/13/18 18:36 - Constitutional Appears: No Acute Distress, Cachectic, Chronically Ill - Head Exam Head Exam: NORMAL INSPECTION, NORMOCEPHALIC - Eye Exam Eye Exam: EOMI, PERRL - ENT Exam ENT Exam: Normal Oropharynx - Neck Exam Neck Exam: Normal Inspection - Respiratory Exam Respiratory Exam: Decreased Breath Sounds - Cardiovascular Exam Cardiovascular Exam: Irregular Rhythm, +S1, +S2 - GI/Abdominal Exam GI & Abdominal Exam: Soft, Tenderness (MILD TENDERNESS ON PALPATION RUQ.), Normal Bowel Sounds - Extremities Exam Extremities Exam: Normal Capillary Refill, Pedal Edema. absent: Calf Tenderness - Neurological Exam Neurological Exam: Awake, CN II-XII Intact, Oriented x3, Reflexes Normal - Psychiatric Exam Psychiatric exam: Normal Mood - Skin Skin Exam: Normal Color, Warm Assessment and Plan (1) Pneumonia Status: Acute (2) Abdominal pain Status: Acute (3) COPD exacerbation Status: Acute (4) Cachexia Status: Acute (5) Cholelithiases Status: Acute (6) Alzheimer disease Status: Acute - Assessment and Plan (Free Text) Plan: CONTINUE iv CEFEPIME 1 G EVERY 12 HOURLY 02/13/18. CONTINUE iv ZITHROMAX 500 MG ONCE A DAY DAILY 02/13/18. SEEN BY RENAL FOR CORRECTION OF HYPONATREMIA. AWAITING SURGERY AFTER MEDICAL STABILIZATION. CONTINUE PULMONARY TOILET. PER GI/SURGERY.
[2018-02-19] MEDS: Cefepime IV 1 gm in Dextrose 1 GM/50 ML BAG IVPB SCH ×2 (04:59→17:00)
[2018-02-19] MEDS: Albuterol-Ipratrop 3 mg / 0.5 (3 ml) UD INH SCH ×3 (07:10→19:54)
[2018-02-19 07:32] LABS: BASO # 0.1 K/uL (0.0-0.2); BASO % 1.1 % (0.0-2.0); EOS # 0.2 K/uL (0.0-0.7); EOS % 2.6 % (0.0-4.0); HEMOGLOBIN 13.1 g/dL (12.0-18.0); LYMPH # 0.6 K/uL (1.0-4.3); LYMPH % 7.9 % (20.0-40.0); MEAN CELL VOLUME 88.2 fL (80.0-94.0); MEAN CORPUSCULAR HEMOGLOBIN 29.6 pg (27.0-31.0); MEAN CORPUSCULAR HGB CONC 33.6 g/dL (33.0-37.0); MEAN PLATELET VOLUME 7.2 fL (7.2-11.7); MONO # 0.5 K/uL (0.0-0.8); MONO % 6.6 % (0.0-10.0); NEUT # 5.9 K/uL (1.8-7.0); NEUT % 81.8 % (50.0-75.0); PLATELET COUNT 343 K/uL (130-400); RBC 4.44 Mil/uL (4.40-5.90); RED CELL DISTRIBUTION WIDTH 14.4 % (11.5-14.5); WHITE BLOOD COUNT 7.2 K/uL (4.8-10.8)
[2018-02-19 07:52] LABS: ALB/GLOB RATIO 0.7 (1.0-2.1); ALBUMIN 3.2 g/dL (3.5-5.0); ALT/SGPT 18 U/L (21-72); AST/SGOT 21 U/L (17-59); BLOOD UREA NITROGEN 6 mg/dL (9-20); GFR NON-AFRICAN AMERICAN > 60
[2018-02-19 08:40] LABS: EOSINOPHIL 3 % (0-4); LYMPHOCYTE 9 % (20-40); MONOCYTE 7 % (0-10); NEUTROPHIL 81 % (50-75); TOTAL CELLS COUNTED 100
[2018-02-19 08:41] LABS: PLATELET ESTIMATE NORMAL (NORMAL)
[2018-02-19] MEDS: Azithromycin 500 MG in Sodium Chloride 0.9% 250 ML IVPB SCH (09:22)
[2018-02-19] MEDS: Pantoprazole 40 mg EC Tab PO SCH (09:23)
[2018-02-19] MEDS: Potassium Chloride 20 mEq/15 ml LIQ UD PO SCH (09:27)
[2018-02-19] MEDS: POLYETHYLENE GLYCOL 3350 17 GM/Dose PACKET PO SCH (09:27)
--- NOTE | 2018-02-19 09:46 | CP.PCM.PN ---
<Alo Reyes - Last Filed: 02/19/18 09:43> Subjective - Date & Time of Evaluation Date of Evaluation: 02/19/18 Time of Evaluation: 09:43 - Subjective Subjective: PT AWAKE., NO COUGH. ROS; OTHERWISE NEG. Objective - Vital Signs/Intake and Output Vital Signs (last 24 hours): Temp Pulse Resp BP Pulse Ox 97.7 F 106 H 20 98/64 L 96 02/19/18 07:47 02/19/18 07:47 02/19/18 07:47 02/19/18 07:47 02/19/18 07:47 Intake and Output: 02/19/18 02/19/18 06:59 18:59 Intake Total 550 Output Total 550 Balance 0 - Medications Medications: Current Medications Albuterol/Ipratropium (Duoneb 3 Mg/0.5 Mg (3 Ml) Ud) 3 ml INH RQ6 [facility] Last Admin: 02/18/18 19:53 Dose: Not Given Docusate Sodium (Colace) 100 mg PO BID [facility] Last Admin: 02/19/18 09:23 Dose: 100 mg Azithromycin 500 mg/ Sodium (Chloride) 250 mls @ 250 mls/hr IVPB DAILY [facility]; Protocol Last Admin: 02/19/18 09:22 Dose: 250 mls/hr Cefepime HCl (Maxipime Iv 1 Gm Premix) 1 gm in 50 mls @ 100 mls/hr IVPB 0400,1600 [facility]; Protocol Last Admin: 02/19/18 04:59 Dose: 100 mls/hr Morphine Sulfate (Morphine) 2 mg IVP Q6H PRN PRN Reason: Pain, severe (8-10) Last Admin: 02/18/18 08:09 Dose: 2 mg Mupirocin (Bactroban Ointment) 0.25 gm TOP BID [facility] Stop: 02/22/18 10:01 Last Admin: 02/19/18 09:27 Dose: Not Given Pantoprazole Sodium (Protonix Ec Tab) 40 mg PO DAILY [facility] Last Admin: 02/19/18 09:23 Dose: 40 mg Polyethylene Glycol (Miralax) 17 gm PO DAILY [facility] Last Admin: 02/19/18 09:27 Dose: Not Given Potassium Chloride (Potassium Chloride Oral Soln) 40 meq PO DAILY [facility] Last Admin: 02/19/18 09:27 Dose: Not Given - Labs Labs: 02/19/18 07:23 02/19/18 07:23 PT 21.9 SECONDS (9.7-12.2) H 02/13/18 18:36 INR 2.0 02/13/18 18:36 APTT 44 SECONDS (21-34) H 02/13/18 18:36 - Constitutional Appears: No Acute Distress, Confused, Chronically Ill - Head Exam Head Exam: ATRAUMATIC, NORMOCEPHALIC - Eye Exam Eye Exam: EOMI, Normal appearance - ENT Exam ENT Exam: Mucous Membranes Dry - Neck Exam Neck Exam: Normal Inspection - Respiratory Exam Respiratory Exam: Decreased Breath Sounds. absent: Accessory Muscle Use, Respiratory Distress - Cardiovascular Exam Cardiovascular Exam: RRR, +S1, +S2 - GI/Abdominal Exam GI & Abdominal Exam: Soft - Rectal Exam Rectal Exam: Deferred - Extremities Exam Extremities Exam: absent: Calf Tenderness, Pedal Edema - Back Exam Back Exam: absent: CVA tenderness (L), CVA tenderness (R) - Neurological Exam Neurological Exam: Alert, Awake, CN II-XII Intact. absent: Oriented x3 - Skin Skin Exam: absent: Rash Assessment and Plan (1) Alzheimer disease Status: Acute (2) Cholelithiases Status: Acute (3) COPD exacerbation Status: Acute (4) Abdominal pain Status: Acute (5) Pneumonia Status: Acute (6) Cachexia Status: Acute - Assessment and Plan (Free Text) Assessment: RESP STATUS NO SIG CHANGE., CONT PULM TOILET., NEB BD., MONITOR O2 SAT. CXR REVIEWED. TOLERATING PO LIQ. RENAL F/U NOTED. PROG POOR. DISCUSSED WITH STAFF. <Rehan Dasilva - Last Filed: 02/19/18 23:56> Objective - Vital Signs/Intake and Output Vital Signs (last 24 hours): Temp Pulse Resp BP Pulse Ox 97.6 F 101 H 20 99/56 L 95 02/19/18 16:00 02/19/18 16:00 02/19/18 16:00 02/19/18 16:00 02/19/18 16:00 Intake and Output: 02/19/18 02/20/18 18:59 06:59 Intake Total 600 Output Total 450 Balance 150 - Medications Medications: Current Medications Albuterol/Ipratropium (Duoneb 3 Mg/0.5 Mg (3 Ml) Ud) 3 ml INH RQ6 [facility] Last Admin: 02/19/18 19:54 Dose: Not Given Docusate Sodium (Colace) 100 mg PO BID [facility] Last Admin: 02/19/18 18:03 Dose: Not Given Azithromycin 500 mg/ Sodium (Chloride) 250 mls @ 250 mls/hr IVPB DAILY [facility]; Protocol Last Admin: 02/19/18 09:22 Dose: 250 mls/hr Cefepime HCl (Maxipime Iv 1 Gm Premix) 1 gm in 50 mls @ 100 mls/hr IVPB 0400,1600 [facility]; Protocol Last Admin: 02/19/18 17:00 Dose: 100 mls/hr Morphine Sulfate (Morphine) 2 mg IVP Q6H PRN PRN Reason: Pain, severe (8-10) Last Admin: 02/18/18 08:09 Dose: 2 mg Mupirocin (Bactroban Ointment) 0.25 gm TOP BID [facility] Stop: 02/22/18 10:01 Last Admin: 02/19/18 18:02 Dose: Not Given Pantoprazole Sodium (Protonix Ec Tab) 40 mg PO DAILY [facility] Last Admin: 02/19/18 09:23 Dose: 40 mg Polyethylene Glycol (Miralax) 17 gm PO DAILY [facility] Last Admin: 02/19/18 09:27 Dose: Not Given Potassium Chloride (Potassium Chloride Oral Soln) 40 meq PO DAILY [facility] Last Admin: 02/19/18 09:27 Dose: Not Given - Labs Labs: 02/19/18 07:23 02/19/18 07:23 PT 21.9 SECONDS (9.7-12.2) H 02/13/18 18:36 INR 2.0 02/13/18 18:36 APTT 44 SECONDS (21-34) H 02/13/18 18:36 Assessment and Plan (1) Pneumonia Status: Acute (2) Abdominal pain Status: Acute (3) COPD exacerbation Status: Acute (4) Cachexia Status: Acute (5) Cholelithiases Status: Acute (6) Alzheimer disease Status: Acute
[2018-02-19] MEDS ORDERED: Tolvaptan 15 MG TAB PO ONE (13:35)
--- NOTE | 2018-02-19 13:35 | CP.PCM.PN ---
Subjective - Date & Time of Evaluation Date of Evaluation: 02/19/18 Time of Evaluation: 13:32 - Subjective Subjective: no acute distress uncooperative with questions wants to go home ROS cannot be obtained due to clinical condition Objective - Vital Signs/Intake and Output Vital Signs (last 24 hours): Temp Pulse Resp BP Pulse Ox 97.7 F 106 H 20 98/64 L 96 02/19/18 07:47 02/19/18 07:47 02/19/18 07:47 02/19/18 07:47 02/19/18 07:47 Intake and Output: 02/19/18 02/19/18 06:59 18:59 Intake Total 550 Output Total 550 Balance 0 - Medications Medications: Current Medications Albuterol/Ipratropium (Duoneb 3 Mg/0.5 Mg (3 Ml) Ud) 3 ml INH RQ6 [facility] Last Admin: 02/19/18 07:10 Dose: Not Given Docusate Sodium (Colace) 100 mg PO BID [facility] Last Admin: 02/19/18 09:23 Dose: 100 mg Azithromycin 500 mg/ Sodium (Chloride) 250 mls @ 250 mls/hr IVPB DAILY [facility]; Protocol Last Admin: 02/19/18 09:22 Dose: 250 mls/hr Cefepime HCl (Maxipime Iv 1 Gm Premix) 1 gm in 50 mls @ 100 mls/hr IVPB 0400,1600 [facility]; Protocol Last Admin: 02/19/18 04:59 Dose: 100 mls/hr Morphine Sulfate (Morphine) 2 mg IVP Q6H PRN PRN Reason: Pain, severe (8-10) Last Admin: 02/18/18 08:09 Dose: 2 mg Mupirocin (Bactroban Ointment) 0.25 gm TOP BID [facility] Stop: 02/22/18 10:01 Last Admin: 02/19/18 09:27 Dose: Not Given Pantoprazole Sodium (Protonix Ec Tab) 40 mg PO DAILY [facility] Last Admin: 02/19/18 09:23 Dose: 40 mg Polyethylene Glycol (Miralax) 17 gm PO DAILY [facility] Last Admin: 02/19/18 09:27 Dose: Not Given Potassium Chloride (Potassium Chloride Oral Soln) 40 meq PO DAILY [facility] Last Admin: 02/19/18 09:27 Dose: Not Given - Labs Labs: 02/19/18 07:23 02/19/18 07:23 PT 21.9 SECONDS (9.7-12.2) H 02/13/18 18:36 INR 2.0 02/13/18 18:36 APTT 44 SECONDS (21-34) H 02/13/18 18:36 - Constitutional Appears: Confused, Chronically Ill - Head Exam Head Exam: ATRAUMATIC - Eye Exam Eye Exam: EOMI - ENT Exam ENT Exam: Mucous Membranes Moist - Neck Exam Neck Exam: Full ROM. absent: Lymphadenopathy - Respiratory Exam Respiratory Exam: NORMAL BREATHING PATTERN. absent: Accessory Muscle Use - Cardiovascular Exam Cardiovascular Exam: REGULAR RHYTHM. absent: Rubs - GI/Abdominal Exam GI & Abdominal Exam: Tenderness. absent: Rebound - Neurological Exam Neurological Exam: Alert. absent: Oriented x3 Assessment and Plan - Assessment and Plan (Free Text) Assessment: chronic hyponatremia, some improvement with tolvaptan for possible cholecystectomy tomorrow will redose tolvaptan in attempt to medically optimize for surgery
--- NOTE | 2018-02-19 14:15 | CP.PCM.PN ---
Subjective - Date & Time of Evaluation Date of Evaluation: 02/19/18 Time of Evaluation: 14:15 - Subjective Subjective: CHIEF COMPLAINTS TODAY : Patient has less abdominal pain no nausea or vomiting ROS. HEENT : N. Resp : No cough, wheezing ,pleuritic CP ,or hemoptysis Cardio : No anginal CP, PND, orthopnea, palpitation GI : No abd.pain, n/v ,diarrhea or GI bleeding . [employer] : No headache, vertigo, focal deficit. Musculoskel : No joint swelling , Derm : No rash Psych : Normal affect. Ext : No swelling ,calf pain PE. Pt. is alert awake in no distress. V.S As noted in the chart Head ,ear nose,throat and eyes : Normal. Neck : Supple with normal carotids. Lungs: Clear air entry. Heart : S1 & S2 normal with S4. No murmur. Abd : Soft non tender with normal bowel sounds. Neuro : Moves all ext. with no localized deficit. Ext : No edema with intact pulses.Non tender calves Derm : No rashes or decubitus ulcer. 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, fluid restriction Tolvaptan added as the sodium is still low Objective - Vital Signs/Intake and Output Vital Signs (last 24 hours): Temp Pulse Resp BP Pulse Ox 97.7 F 106 H 20 98/64 L 96 02/19/18 07:47 02/19/18 07:47 02/19/18 07:47 02/19/18 07:47 02/19/18 07:47 - Medications Medications: Current Medications Albuterol/Ipratropium (Duoneb 3 Mg/0.5 Mg (3 Ml) Ud) 3 ml INH RQ6 [facility] Last Admin: 02/19/18 07:10 Dose: Not Given Docusate Sodium (Colace) 100 mg PO BID [facility] Last Admin: 02/19/18 09:23 Dose: 100 mg Azithromycin 500 mg/ Sodium (Chloride) 250 mls @ 250 mls/hr IVPB DAILY [facility]; Protocol Last Admin: 02/19/18 09:22 Dose: 250 mls/hr Cefepime HCl (Maxipime Iv 1 Gm Premix) 1 gm in 50 mls @ 100 mls/hr IVPB 0400,1600 [facility]; Protocol Last Admin: 02/19/18 04:59 Dose: 100 mls/hr Morphine Sulfate (Morphine) 2 mg IVP Q6H PRN PRN Reason: Pain, severe (8-10) Last Admin: 02/18/18 08:09 Dose: 2 mg Mupirocin (Bactroban Ointment) 0.25 gm TOP BID [facility] Stop: 02/22/18 10:01 Last Admin: 02/19/18 09:27 Dose: Not Given Pantoprazole Sodium (Protonix Ec Tab) 40 mg PO DAILY [facility] Last Admin: 02/19/18 09:23 Dose: 40 mg Polyethylene Glycol (Miralax) 17 gm PO DAILY [facility] Last Admin: 02/19/18 09:27 Dose: Not Given Potassium Chloride (Potassium Chloride Oral Soln) 40 meq PO DAILY [facility] Last Admin: 02/19/18 09:27 Dose: Not Given - Labs Labs: 02/19/18 07:23 02/19/18 07:23 PT 21.9 SECONDS (9.7-12.2) H 02/13/18 18:36 INR 2.0 02/13/18 18:36 APTT 44 SECONDS (21-34) H 02/13/18 18:36
--- NOTE | 2018-02-19 14:21 | CP.PCM.PN ---
Subjective - Date & Time of Evaluation Date of Evaluation: 02/19/18 Time of Evaluation: 09:55 - Subjective Subjective: General Surgery Pt seen and examined. NAEO. Hyponatremia with some improvement. Planning for OR tomorrow. Objective - Vital Signs/Intake and Output Vital Signs (last 24 hours): Temp Pulse Resp BP Pulse Ox 97.7 F 106 H 20 98/64 L 96 02/19/18 07:47 02/19/18 07:47 02/19/18 07:47 02/19/18 07:47 02/19/18 07:47 Intake and Output: 02/19/18 02/19/18 06:59 18:59 Intake Total 550 Output Total 550 Balance 0 - Medications Medications: Current Medications Albuterol/Ipratropium (Duoneb 3 Mg/0.5 Mg (3 Ml) Ud) 3 ml INH RQ6 [facility] Last Admin: 02/19/18 07:10 Dose: Not Given Docusate Sodium (Colace) 100 mg PO BID [facility] Last Admin: 02/19/18 09:23 Dose: 100 mg Azithromycin 500 mg/ Sodium (Chloride) 250 mls @ 250 mls/hr IVPB DAILY [facility]; Protocol Last Admin: 02/19/18 09:22 Dose: 250 mls/hr Cefepime HCl (Maxipime Iv 1 Gm Premix) 1 gm in 50 mls @ 100 mls/hr IVPB 040 0,1600 [facility]; Protocol Last Admin: 02/19/18 04:59 Dose: 100 mls/hr Morphine Sulfate (Morphine) 2 mg IVP Q6H PRN PRN Reason: Pain, severe (8-10) Last Admin: 02/18/18 08:09 Dose: 2 mg Mupirocin (Bactroban Ointment) 0.25 gm TOP BID [facility] Stop: 02/22/18 10:01 Last Admin: 02/19/18 09:27 Dose: Not Given Pantoprazole Sodium (Protonix Ec Tab) 40 mg PO DAILY [facility] Last Admin: 02/19/18 09:23 Dose: 40 mg Polyethylene Glycol (Miralax) 17 gm PO DAILY [facility] Last Admin: 02/19/18 09:27 Dose: Not Given Potassium Chloride (Potassium Chloride Oral Soln) 40 meq PO DAILY [facility] Last Admin: 02/19/18 09:27 Dose: Not Given - Labs Labs: 02/19/18 07:23 02/19/18 07:23 PT 21.9 SECONDS (9.7-12.2) H 02/13/18 18:36 INR 2.0 02/13/18 18:36 APTT 44 SECONDS (21-34) H 02/13/18 18:36 - Constitutional Appears: Non-toxic, No Acute Distress - Head Exam Head Exam: ATRAUMATIC, NORMOCEPHALIC - Eye Exam Eye Exam: EOMI. absent: Scleral icterus - Respiratory Exam Respiratory Exam: NORMAL BREATHING PATTERN. absent: Respiratory Distress - GI/Abdominal Exam GI & Abdominal Exam: Soft. absent: Distended, Firm, Guarding, Rigid, Tenderness, Rebound - Extremities Exam Extremities Exam: absent: Calf Tenderness, Pedal Edema - Neurological Exam Neurological Exam: Alert, Awake - Skin Skin Exam: Dry, Warm Assessment and Plan - Assessment and Plan (Free Text) Assessment: 72M with cholecystitis Plan: - OR 12:30. Consented - Follow up CMP - Nephro working on hyponatremia - Replete electrolytes PRN - cont IV ABX D/W Dr. Shyann Garcia PGY4
--- NOTE | 2018-02-19 22:45 | CP.PCM.PN ---
Subjective - Date & Time of Evaluation Date of Evaluation: 02/19/18 Time of Evaluation: 22:45 - Subjective Subjective: AFERILE, NO ACUTE EVENTS OVERNIGHT DENIES COUGH OR SHORTNESS OF BREATH. TOLERATING iv ANTIBIOTICS. PATIENT TENTATIVELY SCHEDULED FOR SURGERY IF CLEARED BY RENAL/ AND MEDICALLY OPTIMIZED. Objective - Vital Signs/Intake and Output Vital Signs (last 24 hours): Temp Pulse Resp BP Pulse Ox 97.6 F 101 H 20 99/56 L 95 02/19/18 16:00 02/19/18 16:00 02/19/18 16:00 02/19/18 16:00 02/19/18 16:00 - Medications Medications: Current Medications Albuterol/Ipratropium (Duoneb 3 Mg/0.5 Mg (3 Ml) Ud) 3 ml INH RQ6 [facility] Last Admin: 02/19/18 19:54 Dose: Not Given Docusate Sodium (Colace) 100 mg PO BID [facility] Last Admin: 02/19/18 18:03 Dose: Not Given Azithromycin 500 mg/ Sodium (Chloride) 250 mls @ 250 mls/hr IVPB DAILY [facility]; Protocol Last Admin: 02/19/18 09:22 Dose: 250 mls/hr Cefepime HCl (Maxipime Iv 1 Gm Premix) 1 gm in 50 mls @ 100 mls/hr IVPB 0400,1600 [facility]; Protocol Last Admin: 02/19/18 17:00 Dose: 100 mls/hr Morphine Sulfate (Morphine) 2 mg IVP Q6H PRN PRN Reason: Pain, severe (8-10) Last Admin: 02/18/18 08:09 Dose: 2 mg Mupirocin (Bactroban Ointment) 0.25 gm TOP BID [facility] Stop: 02/22/18 10:01 Last Admin: 02/19/18 18:02 Dose: Not Given Pantoprazole Sodium (Protonix Ec Tab) 40 mg PO DAILY [facility] Last Admin: 02/19/18 09:23 Dose: 40 mg Polyethylene Glycol (Miralax) 17 gm PO DAILY [facility] Last Admin: 02/19/18 09:27 Dose: Not Given Potassium Chloride (Potassium Chloride Oral Soln) 40 meq PO DAILY [facility] Last Admin: 02/19/18 09:27 Dose: Not Given - Labs Labs: 02/19/18 07:23 12/05/18 07:23 PT 21.9 SECONDS (9.7-12.2) H 02/13/18 18:36 INR 2.0 02/13/18 18:36 APTT 44 SECONDS (21-34) H 02/13/18 18:36 - Constitutional Appears: No Acute Distress, Cachectic, Chronically Ill - Head Exam Head Exam: NORMAL INSPECTION - Eye Exam Eye Exam: EOMI, PERRL - ENT Exam ENT Exam: Normal Oropharynx - Neck Exam Neck Exam: Normal Inspection - Respiratory Exam Respiratory Exam: Decreased Breath Sounds, Rhonchi (OCCASIONAL RHONCHI BILATERALLY.), NORMAL BREATHING PATTERN - Cardiovascular Exam Cardiovascular Exam: REGULAR RHYTHM, +S1, +S2 - GI/Abdominal Exam GI & Abdominal Exam: Soft, Normal Bowel Sounds. absent: Guarding - Extremities Exam Extremities Exam: Normal Capillary Refill. absent: Calf Tenderness, Pedal Edema - Neurological Exam Neurological Exam: Awake (CONFUSED AT TIMES, DOES NOT VERBALIZE MUCH ? DEMENTIA.), CN II-XII Intact - Psychiatric Exam Psychiatric exam: Normal Mood - Skin Skin Exam: Dry, Normal Color, Warm Assessment and Plan (1) Abdominal pain Status: Acute (2) Pneumonia Status: Acute (3) COPD exacerbation Status: Acute (4) Cholelithiases Status: Acute (5) Cachexia Status: Acute (6) Alzheimer disease Status: Acute - Assessment and Plan (Free Text) Plan: CONTINUE iv CEFEPIME 1 G EVERY 12 HOURLY 02/13/18. CONTINUE iv ZITHROMAX 500 MG ONCE A DAY DAILY 02/13/18. SEEN BY RENAL FOR CORRECTION OF HYPONATREMIA. AWAITING SURGERY AFTER MEDICAL STABILIZATION. CONTINUE PULMONARY TOILET. CASE DISCUSSED WITH CAMI/ AND STAFF.
[2018-02-20] MEDS: Albuterol-Ipratrop 3 mg / 0.5 (3 ml) UD INH SCH ×3 (01:20→14:10)
[2018-02-20] MEDS: Cefepime IV 1 gm in Dextrose 1 GM/50 ML BAG IVPB SCH ×2 (04:30→19:03)
[2018-02-20 07:12] LABS: BASO # 0.1 K/uL (0.0-0.2); BASO % 0.7 % (0.0-2.0); EOS # 0.2 K/uL (0.0-0.7); EOS % 2.7 % (0.0-4.0); HEMOGLOBIN 13.5 g/dL (12.0-18.0); LYMPH # 0.8 K/uL (1.0-4.3); LYMPH % 10.9 % (20.0-40.0); MEAN CORPUSCULAR HEMOGLOBIN 30.5 pg (27.0-31.0); MEAN CORPUSCULAR HGB CONC 33.7 g/dL (33.0-37.0); MEAN PLATELET VOLUME 7.1 fL (7.2-11.7); MONO # 0.5 K/uL (0.0-0.8); MONO % 6.8 % (0.0-10.0); NEUT # 5.6 K/uL (1.8-7.0); NEUT % 78.9 % (50.0-75.0); RBC 4.42 Mil/uL (4.40-5.90); RED CELL DISTRIBUTION WIDTH 14.3 % (11.5-14.5)
[2018-02-20 07:25] LABS: MEAN CELL VOLUME 90.6 fL (80.0-94.0)
[2018-02-20 07:53] LABS: ALB/GLOB RATIO 0.7 (1.0-2.1); ALBUMIN 3.2 g/dL (3.5-5.0); ALT/SGPT 17 U/L (21-72); AST/SGOT 26 U/L (17-59); BLOOD UREA NITROGEN 5 mg/dL (9-20); CALCIUM 8.3 mg/dl (8.6-10.4); GFR NON-AFRICAN AMERICAN > 60
--- NOTE | 2018-02-20 09:37 | CP.PCM.PN ---
Subjective - Date & Time of Evaluation Date of Evaluation: 02/20/18 Time of Evaluation: 09:34 - Subjective Subjective: For choleycystectomy soon Given tovalptan- Na increased to 132 lytes acceptable for OR Same confusional state Would continue relative po fluid restriction post surgery Objective - Vital Signs/Intake and Output Vital Signs (last 24 hours): Temp Pulse Resp BP Pulse Ox 98.1 F 106 H 20 108/75 93 L 02/20/18 07:00 02/20/18 07:00 02/20/18 07:00 02/20/18 07:00 02/20/18 07:00 Intake and Output: 02/20/18 02/20/18 06:59 18:59 Intake Total 600 Output Total 450 Balance 150 - Medications Medications: Current Medications Albuterol/Ipratropium (Duoneb 3 Mg/0.5 Mg (3 Ml) Ud) 3 ml INH RQ6 [facility] Last Admin: 02/20/18 08:25 Dose: Not Given Docusate Sodium (Colace) 100 mg PO BID [facility] Last Admin: 02/19/18 18:03 Dose: Not Given Azithromycin 500 mg/ Sodium (Chloride) 250 mls @ 250 mls/hr IVPB DAILY [facility]; Protocol Last Admin: 02/19/18 09:22 Dose: 250 mls/hr Cefepime HCl (Maxipime Iv 1 Gm Premix) 1 gm in 50 mls @ 100 mls/hr IVPB 0400,1600 [facility]; Protocol Last Admin: 02/20/18 04:30 Dose: 100 mls/hr Morphine Sulfate (Morphine) 2 mg IVP Q6H PRN PRN Reason: Pain, severe (8-10) Last Admin: 02/20/18 02:15 Dose: 2 mg Mupirocin (Bactroban Ointment) 0.25 gm TOP BID [facility] Stop: 02/22/18 10:01 Last Admin: 02/19/18 18:02 Dose: Not Given Pantoprazole Sodium (Protonix Ec Tab) 40 mg PO DAILY [facility] Last Admin: 02/19/18 09:23 Dose: 40 mg Polyethylene Glycol (Miralax) 17 gm PO DAILY [facility] Last Admin: 02/19/18 09:27 Dose: Not Given Potassium Chloride (Potassium Chloride Oral Soln) 40 meq PO DAILY [facility] Last Admin: 02/19/18 09:27 Dose: Not Given - Labs Labs: 02/20/18 06:58 02/20/18 06:58 PT 21.9 SECONDS (9.7-12.2) H 02/13/18 18:36 INR 2.0 02/13/18 18:36 APTT 44 SECONDS (21-34) H 02/13/18 18:36 - Constitutional Appears: No Acute Distress, Confused, Chronically Ill - Head Exam Head Exam: ATRAUMATIC, NORMAL INSPECTION - Eye Exam Eye Exam: EOMI, Normal appearance - Neck Exam Neck Exam: Normal Inspection. absent: Tenderness - Respiratory Exam Respiratory Exam: Clear to Ausculation Bilateral, NORMAL BREATHING PATTERN - Cardiovascular Exam Cardiovascular Exam: REGULAR RHYTHM, +S1 - GI/Abdominal Exam GI & Abdominal Exam: Soft. absent: Tenderness - Extremities Exam Extremities Exam: Normal Inspection. absent: Tenderness - Neurological Exam Neurological Exam: Awake, CN II-XII Intact - Skin Skin Exam: Dry, Warm Assessment and Plan (1) Hyponatremia Status: Acute (2) Alzheimer disease Status: Acute (3) COPD exacerbation Status: Acute (4) SIADH (syndrome of inappropriate ADH production) Status: Acute - Assessment and Plan (Free Text) Assessment: Na improved Renal status stable for choleycystectomy Plan: Follow up lytes post OR For choleycystectomy today
[2018-02-20] MEDS: POLYETHYLENE GLYCOL 3350 17 GM/Dose PACKET PO SCH (10:11)
[2018-02-20] MEDS: Pantoprazole 40 mg EC Tab PO SCH (10:12)
[2018-02-20] MEDS: Potassium Chloride 20 mEq/15 ml LIQ UD PO SCH (10:12)
[2018-02-20] MEDS: Azithromycin 500 MG in Sodium Chloride 0.9% 250 ML IVPB SCH (10:37)
[2018-02-20] MEDS ORDERED: Bupivacaine-Epi 0.5%-1:200,000 PF Inj ONE (12:34)
[2018-02-20] MEDS ORDERED: Iohexol 240 (50 ml) ONE (12:34)
--- NOTE | 2018-02-20 13:43 | CP.PCM.PN ---
Subjective - Date & Time of Evaluation Date of Evaluation: 02/20/18 Time of Evaluation: 13:40 - Subjective Subjective: General Surgery Progress Note for Dr. Boothe Pt seen and examined this AM at bedside. No acute events overnight. No new complaints. Clinically no change from before. Patient taken to OR for lap phill on the table he was tachypnic saturating in low 90's on room air. ABG was drawn showed PCO2 48 PO2 50 was determined unsafe to undergo anesthesia. The case was canceled. Objective - Vital Signs/Intake and Output Vital Signs (last 24 hours): Temp Pulse Resp BP Pulse Ox 98.1 F 106 H 20 108/75 93 L 02/20/18 07:00 02/20/18 07:00 02/20/18 07:00 02/20/18 07:00 02/20/18 07:00 Intake and Output: 02/20/18 02/20/18 06:59 18:59 Intake Total 600 Output Total 450 Balance 150 - Medications Medications: Current Medications Albuterol/Ipratropium (Duoneb 3 Mg/0.5 Mg (3 Ml) Ud) 3 ml INH RQ6 [facility] Last Admin: 02/20/18 08:25 Dose: Not Given Docusate Sodium (Colace) 100 mg PO BID [facility] Last Admin: 02/20/18 10:12 Dose: Not Given Azithromycin 500 mg/ Sodium (Chloride) 250 mls @ 250 mls/hr IVPB DAILY [facility]; Protocol Last Admin: 02/20/18 10:37 Dose: 250 mls/hr Cefepime HCl (Maxipime Iv 1 Gm Premix) 1 gm in 50 mls @ 100 mls/hr IVPB 0400,1600 [facility]; Protocol Last Admin: 02/20/18 04:30 Dose: 100 mls/hr Morphine Sulfate (Morphine) 2 mg IVP Q6H PRN PRN Reason: Pain, severe (8-10) Last Admin: 02/20/18 02:15 Dose: 2 mg Mupirocin (Bactroban Ointment) 0.25 gm TOP BID [facility] Stop: 02/22/18 10:01 Last Admin: 02/20/18 10:11 Dose: Not Given Pantoprazole Sodium (Protonix Ec Tab) 40 mg PO DAILY [facility] Last Admin: 02/20/18 10:12 Dose: Not Given Polyethylene Glycol (Miralax) 17 gm PO DAILY [facility] Last Admin: 02/20/18 10:11 Dose: Not Given Potassium Chloride (Potassium Chloride Oral Soln) 40 meq PO DAILY [facility] Last Admin: 02/20/18 10:12 Dose: Not Given - Labs Labs: 02/20/18 06:58 02/20/18 06:58 PT 21.9 SECONDS (9.7-12.2) H 02/13/18 18:36 INR 2.0 02/13/18 18:36 APTT 44 SECONDS (21-34) H 02/13/18 18:36 - Constitutional Appears: Non-toxic, No Acute Distress - Head Exam Head Exam: ATRAUMATIC, NORMOCEPHALIC - Eye Exam Eye Exam: EOMI - ENT Exam ENT Exam: Mucous Membranes Dry - Respiratory Exam Respiratory Exam: absent: Respiratory Distress - Cardiovascular Exam Cardiovascular Exam: Tachycardia - GI/Abdominal Exam GI & Abdominal Exam: Soft, Tenderness. absent: Firm, Guarding, Rigid - Neurological Exam Neurological Exam: Alert, Awake - Psychiatric Exam Psychiatric exam: Normal Affect, Normal Mood - Skin Skin Exam: Dry, Intact Assessment and Plan - Assessment and Plan (Free Text) Assessment: 72M with acute cholecystitis with CHF, Emphysema Patient unstable for OR Recommend IR cholecystostomy tube Recommend continued medical management If patient requires further surgical evaluation please call the surgical attendant call pager D/W Dr. Boothe [phone]
--- NOTE | 2018-02-20 13:52 | CP.PCM.PN ---
Subjective - Date & Time of Evaluation Date of Evaluation: 02/20/18 Time of Evaluation: 13:51 - Subjective Subjective: Patient is scheduled for OR for cholecystectomy today. Sodium is normalized to 132. Patient is medically cleared with acceptable risk. Objective - Vital Signs/Intake and Output Vital Signs (last 24 hours): Temp Pulse Resp BP Pulse Ox 98.1 F 106 H 20 108/75 93 L 02/20/18 07:00 02/20/18 07:00 02/20/18 07:00 02/20/18 07:00 02/20/18 07:00 Intake and Output: 02/20/18 02/20/18 11:59 23:59 Intake Total 100 Balance 100 - Medications Medications: Current Medications Albuterol/Ipratropium (Duoneb 3 Mg/0.5 Mg (3 Ml) Ud) 3 ml INH RQ6 [facility] Last Admin: 02/20/18 08:25 Dose: Not Given Docusate Sodium (Colace) 100 mg PO BID [facility] Last Admin: 02/20/18 10:12 Dose: Not Given Azithromycin 500 mg/ Sodium (Chloride) 250 mls @ 250 mls/hr IVPB DAILY [facility]; Protocol Last Admin: 02/20/18 10:37 Dose: 250 mls/hr Cefepime HCl (Maxipime Iv 1 Gm Premix) 1 gm in 50 mls @ 100 mls/hr IVPB 0400,1600 [facility]; Protocol Last Admin: 02/20/18 04:30 Dose: 100 mls/hr Morphine Sulfate (Morphine) 2 mg IVP Q6H PRN PRN Reason: Pain, severe (8-10) Last Admin: 02/20/18 02:15 Dose: 2 mg Mupirocin (Bactroban Ointment) 0.25 gm TOP BID [facility] Stop: 02/22/18 10:01 Last Admin: 02/20/18 10:11 Dose: Not Given Pantoprazole Sodium (Protonix Ec Tab) 40 mg PO DAILY [facility] Last Admin: 02/20/18 10:12 Dose: Not Given Polyethylene Glycol (Miralax) 17 gm PO DAILY [facility] Last Admin: 02/20/18 10:11 Dose: Not Given Potassium Chloride (Potassium Chloride Oral Soln) 40 meq PO DAILY [facility] Last Admin: 02/20/18 10:12 Dose: Not Given - Labs Labs: 02/20/18 06:58 02/20/18 06:58 PT 21.9 SECONDS (9.7-12.2) H 02/13/18 18:36 INR 2.0 02/13/18 18:36 APTT 44 SECONDS (21-34) H 02/13/18 18:36
--- NOTE | 2018-02-20 14:23 | CP.PCM.PN ---
Subjective - Date & Time of Evaluation Date of Evaluation: 02/20/18 Time of Evaluation: 14:00 - Subjective Subjective: 72 yom with multiple medical problems, was brought to the OR for a lap phill. It was noticed that patient was tachypneic and appeared to be in respiratory distress, room air saturation was 90, tachycardic as well to 116. Patient has CXR findings of pneumonia has been getting iv antibiotics for it, ABG was drawn, worsening from previous one. Case was discussed with Dr Boothe if it is an emergency we will do it and leave patient intubated postop. As per Dr Boothe patient is improving from the surgical perspective, LFTs are going down. Call was given to Dr Mancera who suggested to call Dr Reyes, case discussed Dr Reyes agrees with postponing the case because of worsening pulmonary function/hypoxia. Patient will be placed in ICU overnight, start on BIPAP in Pacu 02/20 , Dr Reyes, ID, Dr Boothe and PMD will follow the patient. Objective - Vital Signs/Intake and Output Vital Signs (last 24 hours): Temp Pulse Resp BP Pulse Ox 98.1 F 106 H 20 108/75 93 L 02/20/18 07:00 02/20/18 07:00 02/20/18 07:00 02/20/18 07:00 02/20/18 07:00 Intake and Output: 02/20/18 02/20/18 06:59 18:59 Intake Total 600 100 Output Total 450 Balance 150 100 - Medications Medications: Current Medications Albuterol/Ipratropium (Duoneb 3 Mg/0.5 Mg (3 Ml) Ud) 3 ml INH RQ6 [facility] Last Admin: 02/20/18 08:25 Dose: Not Given Docusate Sodium (Colace) 100 mg PO BID [facility] Last Admin: 02/20/18 10:12 Dose: Not Given Azithromycin 500 mg/ Sodium (Chloride) 250 mls @ 250 mls/hr IVPB DAILY [facility]; Protocol Last Admin: 02/20/18 10:37 Dose: 250 mls/hr Cefepime HCl (Maxipime Iv 1 Gm Premix) 1 gm in 50 mls @ 100 mls/hr IVPB 0400,1600 [facility]; Protocol Last Admin: 02/20/18 04:30 Dose: 100 mls/hr Morphine Sulfate (Morphine) 2 mg IVP Q6H PRN PRN Reason: Pain, severe (8-10) Last Admin: 02/20/18 02:15 Dose: 2 mg Mupirocin (Bactroban Ointment) 0.25 gm TOP BID [facility] Stop: 02/22/18 10:01 Last Admin: 02/20/18 10:11 Dose: Not Given Pantoprazole Sodium (Protonix Ec Tab) 40 mg PO DAILY [facility] Last Admin: 02/20/18 10:12 Dose: Not Given Polyethylene Glycol (Miralax) 17 gm PO DAILY [facility] Last Admin: 02/20/18 10:11 Dose: Not Given Potassium Chloride (Potassium Chloride Oral Soln) 40 meq PO DAILY [facility] Last Admin: 02/20/18 10:12 Dose: Not Given - Labs Labs: 02/20/18 06:58 02/20/18 06:58 PT 21.9 SECONDS (9.7-12.2) H 02/13/18 18:36 INR 2.0 02/13/18 18:36 APTT 44 SECONDS (21-34) H 02/13/18 18:36
[2018-02-20 16:47] LABS: B-TYPE NATRIURETIC PEPTIDE 158 pg/mL (0-900)
--- NOTE | 2018-02-20 17:29 | CT ---
Date of service: 02/20/2018 PROCEDURE: CT Chest without contrast HISTORY: aspiration ? nodules COMPARISON: 02/13/2018 two-view chest 04/30/2015 single-view chest TECHNIQUE: Contiguous axial images were obtained through the chest without intravenous contrast enhancement. Sagittal and coronal reconstructions were performed. Radiation dose: Total exam DLP = 418.7 mGy-cm. This CT exam was performed using one or more of the following dose reduction techniques: Automated exposure control, adjustment of the mA and/or kV according to patient size, and/or use of iterative reconstruction technique. FINDINGS: LUNGS: Underlying interstitial lung disease a finding seen on prior study chest radiographs Alveolar changes basilar segment right lower lobe. Airspace disease primarily affecting the left lower lobe and lingula. MEDIASTINUM: Aneurysmal dilatation of the ascending aorta 3.5 cm. Non aneurysmal, tortuous descending thoracic aorta. Atherosclerotic calcifications identified primarily aortic arch. Cardiomegaly. No evidence of acute, significant cardiovascular disease. Dilated main pulmonary artery consistent with pulmonary arterial hypertension. No lymphadenopathy. No aortic atherosclerotic calcification. PLEURA: No pleural fluid. No pneumothorax. BONES: No fracture. No destructive lesion. UPPER ABDOMEN: Cholelithiasis without CT evidence of acute cholecystitis. OTHER FINDINGS: None. IMPRESSION: Bilateral infiltrates primarily affecting lower lobes left greater than right. Additional benign and/or incidental findings described above.
--- NOTE | 2018-02-20 17:51 | CP.PCM.CON ---
<Art Braxton - Last Filed: 02/20/18 18:35> History of Present Illness - History of Present Illness History of Present Illness: PGY-1 ICU Consult note for Dr. Gian Amaya Patient is a 72M with PMHx of alzheimers and "prostate problem" presenting with lower abdominal pain. Patient was diagnosed with cholecystitis and was scheduled for a lap phill on 02/20. Patient was brought into the OR and was tachypneic and appeared to be in respiratory distress with O2 saturation of 90% and tachycardic . Patient has CXR findings of pneumonia has been getting iv antibiotics for it, ABG was drawn, worsening from previous one. Patient admitted to ICU for worsening pulmonary function and hypoxia. PMHx: alzheimers, "prostate problem", emphysema PSHx: left shoulder surgery ALL: NKDA Review of Systems - Review of Systems All systems: reviewed and no additional remarkable complaints except Past Patient History - Past Medical History & Family History Past Medical History?: Yes - Past Social History Smoking Status: Former Smoker - CARDIAC Hx Congestive Heart Failure: Yes (?more than 20 yrs ago) - PULMONARY Hx Emphysema: Yes - NEUROLOGICAL Hx Alzheimer's Disease: Yes - HEENT Hx HEENT Problems: No - RENAL Hx Chronic Kidney Disease: No - ENDOCRINE/METABOLIC Hx Endocrine Disorders: No - HEMATOLOGICAL/ONCOLOGICAL Hx Blood Disorders: No - INTEGUMENTARY Hx Dermatological Problems: No - MUSCULOSKELETAL/RHEUMATOLOGICAL Hx Arthritis: Yes (L SH; BACK) - GASTROINTESTINAL Hx Gastrointestinal Disorders: No - GENITOURINARY/GYNECOLOGICAL Hx Genitourinary Disorders: No - PSYCHIATRIC Hx Substance Use: No - SURGICAL HISTORY Hx Surgeries: Yes Hx Orthopedic Surgery: Yes (LEFT ARM) - ANESTHESIA Hx Anesthesia: Yes Hx Anesthesia Reactions: No Hx Malignant Hyperthermia: No Meds Allergies/Adverse Reactions: Allergies Allergy/AdvReac Type Severity Reaction Status Date / Time No Known Allergies Allergy Verified 02/12/18 21:31 - Medications Medications: Current Medications Albuterol/Ipratropium (Duoneb 3 Mg/0.5 Mg (3 Ml) Ud) 3 ml INH RQ6 [facility] Last Admin: 02/20/18 14:10 Dose: 3 ml Docusate Sodium (Colace) 100 mg PO BID [facility] Last Admin: 02/20/18 10:12 Dose: Not Given Azithromycin 500 mg/ Sodium (Chloride) 250 mls @ 250 mls/hr IVPB DAILY [facility]; Protocol Last Admin: 02/20/18 10:37 Dose: 250 mls/hr Cefepime HCl (Maxipime Iv 1 Gm Premix) 1 gm in 50 mls @ 100 mls/hr IVPB 0400,1600 [facility]; Protocol Last Admin: 02/20/18 04:30 Dose: 100 mls/hr Mupirocin (Bactroban Ointment) 0.25 gm TOP BID [facility] Stop: 02/22/18 10:01 Last Admin: 02/20/18 10:11 Dose: Not Given Pantoprazole Sodium (Protonix Ec Tab) 40 mg PO DAILY [facility] Last Admin: 02/20/18 10:12 Dose: Not Given Polyethylene Glycol (Miralax) 17 gm PO DAILY [facility] Last Admin: 02/20/18 10:11 Dose: Not Given Potassium Chloride (Potassium Chloride Oral Soln) 40 meq PO DAILY [facility] Last Admin: 02/20/18 10:12 Dose: Not Given Physical Exam - Constitutional Appears: Non-toxic, No Acute Distress - Head Exam Head Exam: ATRAUMATIC, NORMOCEPHALIC - Eye Exam Eye Exam: EOMI, Normal appearance - ENT Exam ENT Exam: Mucous Membranes Dry - Respiratory Exam Respiratory Exam: Rhonchi. absent: Accessory Muscle Use, Decreased Breath Sounds, Rales, Wheezes, Respiratory Distress - Cardiovascular Exam Cardiovascular Exam: Tachycardia, +S1, +S2. absent: Gallop, Rubs, Systolic Murmur - GI/Abdominal Exam GI & Abdominal Exam: Normal Bowel Sounds, Soft. absent: Tenderness - Extremities Exam Extremities exam: Positive for: normal inspection. Negative for: calf tenderness - Neurological Exam Neurological exam: Alert, CN II-XII Intact, Oriented x3 - Psychiatric Exam Psychiatric exam: Normal Affect, Normal Mood - Skin Skin Exam: Dry, Intact, Normal Color, Warm Results - Vital Signs Recent Vital Signs: Last Vital Signs Temp 97.6 F 02/20/18 15:30 Pulse 117 H 02/20/18 15:30 Resp 22 02/20/18 15:30 BP 103/70 02/20/18 15:30 Pulse Ox 93 L 02/20/18 15:30 - Labs Result Diagrams: 02/20/18 06:58 02/20/18 06:58 Labs: Laboratory Results - last 24 hr 02/20/18 02/20/18 02/20/18 06:58 06:58 06:58 WBC 7.0 RBC 4.42 Hgb 13.5 Hct 40.1 MCV 90.6 D MCH 30.5 MCHC 33.7 RDW 14.3 Plt Count 356 MPV 7.1 L Neut % (Auto) 78.9 H Lymph % (Auto) 10.9 L Bowie % (Auto) 6.8 Eos % (Auto) 2.7 Baso % (Auto) 0.7 Neut # (Auto) 5.6 Lymph # (Auto) 0.8 L Bowie # (Auto) 0.5 Eos # (Auto) 0.2 Baso # (Auto) 0.1 Sodium 132 Potassium 4.0 Chloride 88 L Carbon Dioxide 34 H Anion Gap 13 BUN 5 L Creatinine 0.4 L Est GFR ( Amer) > 60 Est GFR (Non-Af Amer) > 60 Random Glucose 115 H Calcium 8.3 L Total Bilirubin 0.5 AST 26 ALT 17 L Alkaline Phosphatase 89 Troponin I NT-Pro-B Natriuret Pep Total Protein 7.6 Albumin 3.2 L Globulin 4.4 H Albumin/Globulin Ratio 0.7 L Procalcitonin Blood Type O POSITIVE Antibody Screen Negative 02/20/18 02/20/18 15:49 15:49 WBC RBC Hgb Hct MCV MCH MCHC RDW Plt Count MPV Neut % (Auto) Lymph % (Auto) Bowie % (Auto) Eos % (Auto) Baso % (Auto) Neut # (Auto) Lymph # (Auto) Bowie # (Auto) Eos # (Auto) Baso # (Auto) Sodium Potassium Chloride Carbon Dioxide Anion Gap BUN Creatinine Est GFR ( Amer) Est GFR (Non-Af Amer) Random Glucose Calcium Total Bilirubin AST ALT Alkaline Phosphatase Troponin I < 0.0120 NT-Pro-B Natriuret Pep 158 Total Protein Albumin Globulin Albumin/Globulin Ratio Procalcitonin 0.14 L Blood Type Antibody Screen Assessment & Plan - Assessment and Plan (Free Text) Assessment: Patient is a 72M with PMHx of alzheimers and "prostate problem" presenting with cholecystitis. Patient admitted to ICU for worsening pulmonary function and hypoxia. Plan: Neuro: - Patient is AAO X 3 Cardiovascular: - Echo (02/17): LVEF 77%, LV with normal function - No acute issues Pulm: Respiratory distress - CXR (02/13): Chronic appearing right lower lobe atelectasis. There are also patchy interstitial infiltrate and probably alveolar-type infiltrates in the left mid to lower lung field the latter of which appear more confluent in the lower lung field. Questionable small bilateral effusions and/or pleural thickening. - Chest CT (02/20): Bilateral infiltrates primarily affecting lower lobes left greater than right. - Pulmonology consulted, Dr. Reyes - Torri Q6 Possible PNA - Azithromycin 500mg IV QD (Started on 02/14) - Cefepime 1g IV Q12 (Started on 02/13) - Procalcitonin: 0.14 - M. pneumoniae IgM: WNL GI: Cholecystitis - CT Abd/pelvis (02/13): Cholelithiasis with dilatation of the common bile duct and what appears represent least 1 nonobstructing tiny calculus within the region of the junction of the common bile duct and pancreatic duct. Gallbladder is distended. - HIDA scan showed scute cholecystitis - Abd ultrasound (02/13): Echogenic liver may be seen in setting of hepatic parenchymal disease or fatty infiltration. - GI consulted, Dr. Ch - Surgery consulted, Dr. Boothe Constipation: - Colace 100mg PO BID - Miralax daily Renal: Hyponatremia - Improving - Nephrology consulted, Dr. Ewing - Continue to monitor Hypokalemia - Potassium chloride 40mEq PO QD - Continue to monitor Prophylaxis: - Heparin 5000 units SC Q8 - Protonix 40mg PO QD Case discussed with Dr. Gian Braxton, PGY-1 <Hailey Amaya - Last Filed: 02/21/18 16:25> Meds - Medications Medications: Current Medications Al Hydrox/Mg Hydrox/Simethicone (Maalox Plus 30 Ml) 30 ml PO Q6H PRN PRN Reason: Indigestion / Heartburn Albuterol/Ipratropium (Duoneb 3 Mg/0.5 Mg (3 Ml) Ud) 3 ml INH RQ6 [facility] Last Admin: 02/21/18 13:35 Dose: Not Given Docusate Sodium (Colace) 100 mg PO BID [facility] Last Admin: 02/21/18 10:30 Dose: 100 mg Heparin Sodium (Porcine) (Heparin) 5,000 units SC Q8 [facility] Last Admin: 02/21/18 05:14 Dose: 5,000 units Azithromycin 500 mg/ Sodium (Chloride) 250 mls @ 250 mls/hr IVPB DAILY [facility]; Protocol Last Admin: 02/21/18 10:30 Dose: 250 mls/hr Cefepime HCl (Maxipime Iv 1 Gm Premix) 1 gm in 50 mls @ 100 mls/hr IVPB 0400,1600 [facility]; Protocol Last Admin: 02/21/18 04:30 Dose: 100 mls/hr Mupirocin (Bactroban Ointment) 0.25 gm TOP BID [facility] Stop: 02/22/18 10:01 Last Admin: 02/21/18 10:30 Dose: 1 applic Pantoprazole Sodium (Protonix Ec Tab) 40 mg PO DAILY [facility] Last Admin: 02/21/18 10:30 Dose: 40 mg Polyethylene Glycol (Miralax) 17 gm PO DAILY [facility] Last Admin: 02/21/18 10:30 Dose: 17 gm Potassium Chloride (Potassium Chloride Oral Soln) 40 meq PO DAILY [facility] Last Admin: 02/21/18 10:30 Dose: 40 meq Results - Vital Signs Recent Vital Signs: Last Vital Signs Temp 98.9 F 02/21/18 04:00 Pulse 94 H 02/21/18 13:30 Resp 26 H 02/21/18 13:30 BP 127/71 02/21/18 08:21 Pulse Ox 95 02/21/18 12:20 - Labs Result Diagrams: 02/21/18 06:22 02/21/18 06:22 Labs: Laboratory Results - last 24 hr 02/20/18 02/20/18 02/21/18 15:49 15:49 06:22 WBC 8.0 RBC 4.55 Hgb 13.6 Hct 41.0 MCV 90.0 MCH 29.9 MCHC 33.3 RDW 14.1 Plt Count 414 H MPV 7.1 L Neut % (Auto) 80.5 H Lymph % (Auto) 10.6 L Bowie % (Auto) 7.2 Eos % (Auto) 1.2 Baso % (Auto) 0.5 Neut # (Auto) 6.4 Lymph # (Auto) 0.8 L Bowie # (Auto) 0.6 Eos # (Auto) 0.1 Baso # (Auto) 0.0 Sodium Potassium Chloride Carbon Dioxide Anion Gap BUN Creatinine Est GFR ( Amer) Est GFR (Non-Af Amer) Random Glucose Calcium Phosphorus Magnesium Total Bilirubin AST ALT Alkaline Phosphatase Troponin I < 0.0120 NT-Pro-B Natriuret Pep 158 Total Protein Albumin Globulin Albumin/Globulin Ratio Procalcitonin 0.14 L 02/21/18 06:22 WBC RBC Hgb Hct MCV MCH MCHC RDW Plt Count MPV Neut % (Auto) Lymph % (Auto) Bowie % (Auto) Eos % (Auto) Baso % (Auto) Neut # (Auto) Lymph # (Auto) Bowie # (Auto) Eos # (Auto) Baso # (Auto) Sodium 129 L Potassium 4.4 Chloride 85 L Carbon Dioxide 36 H Anion Gap 12 BUN 6 L Creatinine 0.4 L Est GFR ( Amer) > 60 Est GFR (Non-Af Amer) > 60 Random Glucose 106 Calcium 8.2 L Phosphorus 3.0 Magnesium 1.8 Total Bilirubin 0.6 AST 26 ALT 16 L Alkaline Phosphatase 115 Troponin I NT-Pro-B Natriuret Pep Total Protein 8.1 Albumin 3.5 Globulin 4.6 H Albumin/Globulin Ratio 0.7 L Procalcitonin Assessment & Plan - Assessment and Plan (Free Text) Plan: Patient seen and examined at bedside. Patient has underlying lung disease with chronic CO2 retention. Patient saturating 93% on room air. Patient denies any abdominal pain. PAtient wants to eat food and would like to be discharged home. -ICU consulted for underlying chronic lung disorder. -Avoid fluid overloaded -continue to monitor Oxygenation -Pulmonary physical therapy -PAtient will benefit from Bi-pap at night; however, patient has refused. -PAtient has underlying pulmonary HTN: avoid fluid loverloaded states and oxygen supplementaation to keep spo2 >(2 -abdominal pain: resolved, tolerating oral diet-transient billary disorder resovled, no increase in T.billis -Patient at risk of CAD, continue antiplatelet, asa and statins to help reduce risk of CAD. Patient remains hemodynamically stable and good mentation and chronic underlying pulompnary insufficieny - Date & Time Date: 02/20/18 Time: 19:00
[2018-02-20] MEDS ORDERED: Alum-Mag Hydrox-Simethicone Susp (30 mL) PO PRN (17:57)
--- NOTE | 2018-02-20 19:25 | CP.PCM.PN ---
Subjective - Date & Time of Evaluation Date of Evaluation: 02/20/18 Time of Evaluation: 19:22 - Subjective Subjective: PT ALERT, NO DISTRESS. DENIES SOB. REFUSING BIPAP. S/P EPISODE RESP DISTRESS AND HYPOXIA IN OR, CASE CANCELLED. ROS; OTHERWISE NEG. Objective - Vital Signs/Intake and Output Vital Signs (last 24 hours): Temp Pulse Resp BP Pulse Ox 98.6 F 119 H 32 H 103/70 95 02/20/18 17:55 02/20/18 18:40 02/20/18 18:40 02/20/18 15:30 02/20/18 18:40 Intake and Output: 02/20/18 02/21/18 18:59 06:59 Intake Total 400 Output Total 200 Balance 200 - Medications Medications: Current Medications Al Hydrox/Mg Hydrox/Simethicone (Maalox Plus 30 Ml) 30 ml PO Q6H PRN PRN Reason: Indigestion / Heartburn Albuterol/Ipratropium (Duoneb 3 Mg/0.5 Mg (3 Ml) Ud) 3 ml INH RQ6 [facility] Last Admin: 02/20/18 14:10 Dose: 3 ml Docusate Sodium (Colace) 100 mg PO BID [facility] Last Admin: 02/20/18 19:02 Dose: 100 mg Heparin Sodium (Porcine) (Heparin) 5,000 units SC Q8 [facility] Azithromycin 500 mg/ Sodium (Chloride) 250 mls @ 250 mls/hr IVPB DAILY [facility]; Protocol Last Admin: 02/20/18 10:37 Dose: 250 mls/hr Cefepime HCl (Maxipime Iv 1 Gm Premix) 1 gm in 50 mls @ 100 mls/hr IVPB 0400,1600 [facility]; Protocol Last Admin: 02/20/18 19:03 Dose: Not Given Mupirocin (Bactroban Ointment) 0.25 gm TOP BID [facility] Stop: 02/22/18 10:01 Last Admin: 02/20/18 19:02 Dose: 1 applic Pantoprazole Sodium (Protonix Ec Tab) 40 mg PO DAILY [facility] Last Admin: 02/20/18 10:12 Dose: Not Given Polyethylene Glycol (Miralax) 17 gm PO DAILY [facility] Last Admin: 02/20/18 10:11 Dose: Not Given Potassium Chloride (Potassium Chloride Oral Soln) 40 meq PO DAILY [facility] Last Admin: 02/20/18 10:12 Dose: Not Given - Labs Labs: 02/20/18 06:58 02/20/18 06:58 PT 21.9 SECONDS (9.7-12.2) H 02/13/18 18:36 INR 2.0 02/13/18 18:36 APTT 44 SECONDS (21-34) H 02/13/18 18:36 - Constitutional Appears: No Acute Distress, Chronically Ill - Head Exam Head Exam: ATRAUMATIC, NORMOCEPHALIC - Eye Exam Eye Exam: EOMI, Normal appearance - ENT Exam ENT Exam: Mucous Membranes Moist - Neck Exam Neck Exam: Normal Inspection - Respiratory Exam Respiratory Exam: Decreased Breath Sounds, Rhonchi. absent: Respiratory Distress - Cardiovascular Exam Cardiovascular Exam: RRR, +S1, +S2 - GI/Abdominal Exam GI & Abdominal Exam: Soft, Tenderness - Rectal Exam Rectal Exam: Deferred - Extremities Exam Extremities Exam: absent: Calf Tenderness, Pedal Edema - Back Exam Back Exam: absent: CVA tenderness (L), CVA tenderness (R) - Neurological Exam Neurological Exam: Alert, Awake, CN II-XII Intact. absent: Oriented x3 - Skin Skin Exam: absent: Rash Assessment and Plan (1) Alzheimer disease Status: Acute (2) Cholelithiases Status: Acute (3) COPD exacerbation Status: Acute (4) Abdominal pain Status: Acute (5) Pneumonia Status: Acute (6) Cachexia Status: Acute (7) Respiratory failure Status: Acute - Assessment and Plan (Free Text) Assessment: RESP STATUS IMPROVING, ABG NOTED, WORSENING HYPOXIA IN OR PRE-OP, CASE CANCELLED. CONT NEB BD., BIPAP SUPPORT., CT CHEST REVIEWED. CONT AB PER ID. PO DIET PER SURG. PROG POOR. DISCUSSED WITH STAFF AT LENGTH AND ANESTHESIOLOGIST.
--- NOTE | 2018-02-20 20:31 | CP.PCM.PN ---
Subjective - Date & Time of Evaluation Date of Evaluation: 02/20/18 Time of Evaluation: 20:31 - Subjective Subjective: AFEBRILE, SOME CONFUSIONAL STATE. TACHYPNEIC/AND TACHY TODAY THIS AM. SURGERY CANCELLED DUE TO ABOVE . RENAL AND PULMONARY F/U NOTED. PT FOR CT CHEST TODAY LABS REVIEWED. NA-132 IMPROVED. Objective - Vital Signs/Intake and Output Vital Signs (last 24 hours): Temp Pulse Resp BP Pulse Ox 98.6 F 126 H 35 H 138/72 92 L 02/20/18 17:55 02/20/18 20:21 02/20/18 20:21 02/20/18 20:21 02/20/18 20:21 Intake and Output: 02/20/18 02/21/18 18:59 06:59 Intake Total 400 120 Output Total 200 100 Balance 200 20 - Medications Medications: Current Medications Al Hydrox/Mg Hydrox/Simethicone (Maalox Plus 30 Ml) 30 ml PO Q6H PRN PRN Reason: Indigestion / Heartburn Albuterol/Ipratropium (Duoneb 3 Mg/0.5 Mg (3 Ml) Ud) 3 ml INH RQ6 [facility] Last Admin: 02/20/18 14:10 Dose: 3 ml Docusate Sodium (Colace) 100 mg PO BID [facility] Last Admin: 02/20/18 19:02 Dose: 100 mg Heparin Sodium (Porcine) (Heparin) 5,000 units SC Q8 [facility] Azithromycin 500 mg/ Sodium (Chloride) 250 mls @ 250 mls/hr IVPB DAILY [facility]; Protocol Last Admin: 02/20/18 10:37 Dose: 250 mls/hr Cefepime HCl (Maxipime Iv 1 Gm Premix) 1 gm in 50 mls @ 100 mls/hr IVPB 0400,1600 [facility]; Protocol Last Admin: 02/20/18 19:03 Dose: Not Given Mupirocin (Bactroban Ointment) 0.25 gm TOP BID [facility] Stop: 02/22/18 10:01 Last Admin: 02/20/18 19:02 Dose: 1 applic Pantoprazole Sodium (Protonix Ec Tab) 40 mg PO DAILY [facility] Last Admin: 02/20/18 10:12 Dose: Not Given Polyethylene Glycol (Miralax) 17 gm PO DAILY [facility] Last Admin: 12/06/18 10:11 Dose: Not Given Potassium Chloride (Potassium Chloride Oral Soln) 40 meq PO DAILY [facility] Last Admin: 02/20/18 10:12 Dose: Not Given - Labs Labs: 02/20/18 06:58 02/20/18 06:58 PT 21.9 SECONDS (9.7-12.2) H 02/13/18 18:36 INR 2.0 02/13/18 18:36 APTT 44 SECONDS (21-34) H 02/13/18 18:36 - Constitutional Appears: No Acute Distress, Confused, Chronically Ill - Head Exam Head Exam: NORMAL INSPECTION - Eye Exam Eye Exam: EOMI, PERRL - ENT Exam ENT Exam: Normal Oropharynx - Neck Exam Neck Exam: Normal Inspection - Respiratory Exam Respiratory Exam: Rhonchi - Cardiovascular Exam Cardiovascular Exam: Tachycardia, Irregular Rhythm, +S1, +S2 - GI/Abdominal Exam GI & Abdominal Exam: Soft, Normal Bowel Sounds. absent: Distended, Guarding, Tenderness - Extremities Exam Extremities Exam: Normal Capillary Refill. absent: Calf Tenderness, Pedal Edema - Neurological Exam Neurological Exam: Awake, CN II-XII Intact, Reflexes Normal - Psychiatric Exam Psychiatric exam: Flat Affect - Skin Skin Exam: Normal Color, Warm Assessment and Plan (1) Abdominal pain Status: Acute (2) Pneumonia Status: Acute (3) COPD exacerbation Status: Acute (4) Cholelithiases Status: Acute (5) Cachexia Status: Acute (6) Alzheimer disease Status: Acute - Assessment and Plan (Free Text) Plan: CT CHEST W/O CONTRAST REVIEWED.02/20/18. bilateral infiltrates primarily affecting lower lobes L>R . ? CHRONIC INTERSTITIAL LUNG DISEASE. PATIENT DENIES COUGH OR EXPECTORANT. PROBABLE EXACERBATION OF COPD. CONTINUE NEBULISER /AND BIPAP PER PULMONARY. [id number] LOW-nOTED. PATIENT ON IV ANTIBIOTICS FOR LAST 1WEEK CONTINUE iv CEFEPIME 1 G EVERY 12 HOURLY 02/13/18. CONTINUE iv ZITHROMAX 500 MG ONCE A DAY DAILY 02/13/18. WILL REPEAT MRSA SCREEN AWAITING SURGERY AFTER MEDICAL STABILIZATION.
[2018-02-21] MEDS: Albuterol-Ipratrop 3 mg / 0.5 (3 ml) UD INH SCH ×4 (01:06→20:01)
[2018-02-21] MEDS: Cefepime IV 1 gm in Dextrose 1 GM/50 ML BAG IVPB SCH ×2 (04:30→16:20)
[2018-02-21 06:36] LABS: BASO % 0.5 % (0.0-2.0); EOS # 0.1 K/uL (0.0-0.7); EOS % 1.2 % (0.0-4.0); HEMOGLOBIN 13.6 g/dL (12.0-18.0); LYMPH # 0.8 K/uL (1.0-4.3); LYMPH % 10.6 % (20.0-40.0); MEAN CORPUSCULAR HEMOGLOBIN 29.9 pg (27.0-31.0); MEAN CORPUSCULAR HGB CONC 33.3 g/dL (33.0-37.0); MEAN PLATELET VOLUME 7.1 fL (7.2-11.7); MONO # 0.6 K/uL (0.0-0.8); MONO % 7.2 % (0.0-10.0); NEUT # 6.4 K/uL (1.8-7.0); NEUT % 80.5 % (50.0-75.0); RBC 4.55 Mil/uL (4.40-5.90); RED CELL DISTRIBUTION WIDTH 14.1 % (11.5-14.5)
[2018-02-21 07:02] LABS: ALB/GLOB RATIO 0.7 (1.0-2.1); ALBUMIN 3.5 g/dL (3.5-5.0); ALT/SGPT 16 U/L (21-72); AST/SGOT 26 U/L (17-59); BLOOD UREA NITROGEN 6 mg/dL (9-20); CALCIUM 8.2 mg/dl (8.6-10.4); GFR NON-AFRICAN AMERICAN > 60
--- NOTE | 2018-02-21 07:42 | CP.CCUPN ---
<Art Braxton - Last Filed: 02/21/18 10:40> CCU Subjective - Physician Review Subjective (Free Text): 02/21/18 08:41 Patient seen and examined at bedside. No acute events overnight. Patient has no complaints and is stable to transfer to telemetry. Critical Care Time Spent (in minutes): 35 CCU Objective - Vital Signs / Intake & Output Vital Signs (Last 4 hours): Vital Signs Temp Pulse Resp BP Pulse Ox 02/21/18 07:30 104 H 28 H 97 02/21/18 07:20 104 H 26 H 121/79 98 02/21/18 07:10 103 H 28 H 97 02/21/18 07:00 104 H 26 H 97 02/21/18 06:50 104 H 28 H 98 02/21/18 06:20 104 H 26 H 109/76 97 02/21/18 05:20 117 H 27 H 108/74 92 L 02/21/18 04:20 111 H 28 H 112/71 93 L 02/21/18 04:00 98.9 F 99 Intake and Output (Last 8hrs): Intake & Output 02/20/18 02/21/18 02/21/18 22:59 06:59 14:59 Intake Total 560 410 0 Output Total 150 50 0 Balance 410 360 0 Intake: Intake, IV Amount 200 50 Right Forearm 200 50 Oral 360 360 0 Output: Urine 150 50 0 Urine, Voided 150 50 0 - Physical Exam Other physical findings (Free Text): - Constitutional Appears: Non-toxic, No Acute Distress - Head Exam Head Exam: ATRAUMATIC, NORMOCEPHALIC - Eye Exam Eye Exam: EOMI, Normal appearance - ENT Exam ENT Exam: Mucous Membranes Dry - Respiratory Exam Respiratory Exam: Rhonchi and wheezes heard throughout. absent: Accessory Muscle Use, Decreased Breath Sounds, Rales, Respiratory Distress - Cardiovascular Exam Cardiovascular Exam: Tachycardia, +S1, +S2. absent: Gallop, Rubs, Systolic Murmur - GI/Abdominal Exam GI & Abdominal Exam: Normal Bowel Sounds, Soft. absent: Tenderness - Extremities Exam Extremities exam: Positive for: normal inspection. Negative for: calf tenderness - Neurological Exam Neurological exam: Alert, CN II-XII Intact, Oriented x3 - Psychiatric Exam Psychiatric exam: Normal Affect, Normal Mood - Skin Skin Exam: Dry, Intact, Normal Color, Warm - Medications Active Medications: Active Medications Generic Name Dose Route Start Last Admin Trade Name Freq PRN Reason Stop Dose Admin Al Hydrox/Mg Hydrox/Simethicone 30 ml 02/20/18 17:57 Maalox Plus 30 Ml PO Q6H PRN Indigestion / Heartburn Albuterol/Ipratropium 3 ml 02/13/18 20:00 02/21/18 01:06 Duoneb 3 Mg/0.5 Mg (3 Ml) Ud INH Not Given RQ6 VELMA Docusate Sodium 100 mg 02/13/18 10:00 02/20/18 19:02 Colace PO 100 mg BID VELMA Administration Heparin Sodium (Porcine) 5,000 units 02/20/18 22:00 02/21/18 05:14 Heparin SC 5,000 units Q8 VELMA Administration Azithromycin 500 mg/ Sodium 250 mls @ 250 mls/hr 02/14/18 10:00 02/20/18 10:37 Chloride IVPB 250 mls/hr DAILY VELMA Administration Protocol Cefepime HCl 1 gm in 50 mls @ 100 mls/hr 02/13/18 16:00 02/21/18 04:30 Maxipime Iv 1 Gm Premix IVPB 100 mls/hr 0400,1600 VELMA Administration Protocol Mupirocin 0.25 gm 02/15/18 10:00 02/20/18 19:02 Bactroban Ointment TOP 02/22/18 10:01 1 applic BID VELMA Administration Pantoprazole Sodium 40 mg 02/18/18 10:00 02/20/18 10:12 Protonix Ec Tab PO Not Given DAILY VELMA Polyethylene Glycol 17 gm 02/13/18 10:00 02/20/18 10:11 Miralax PO Not Given DAILY VELMA Potassium Chloride 40 meq 02/16/18 08:31 02/20/18 10:12 Potassium Chloride Oral Soln PO Not Given DAILY VELMA - Patient Studies Lab Studies: Lab Studies 02/21/18 02/21/18 02/20/18 Range/Units 06:22 06:22 15:49 WBC 8.0 (4.8-10.8) K/uL RBC 4.55 (4.40-5.90) Mil/uL Hgb 13.6 (12.0-18.0) g/dL Hct 41.0 (35.0-51.0) % MCV 90.0 (80.0-94.0) fL MCH 29.9 (27.0-31.0) pg MCHC 33.3 (33.0-37.0) g/dL RDW 14.1 (11.5-14.5) % Plt Count 414 H (130-400) K/uL MPV 7.1 L (7.2-11.7) fL Neut % (Auto) 80.5 H (50.0-75.0) % Lymph % (Auto) 10.6 L (20.0-40.0) % [place] % (Auto) 7.2 (0.0-10.0) % Eos % (Auto) 1.2 (0.0-4.0) % Baso % (Auto) 0.5 (0.0-2.0) % Neut # (Auto) 6.4 (1.8-7.0) K/uL Lymph # (Auto) 0.8 L (1.0-4.3) K/uL [place] # (Auto) 0.6 (0.0-0.8) K/uL Eos # (Auto) 0.1 (0.0-0.7) K/uL Baso # (Auto) 0.0 (0.0-0.2) K/uL Sodium 129 L (132-148) mmol/L Potassium 4.4 (3.6-5.2) mmol/L Chloride 85 L (98-107) mmol/L Carbon Dioxide 36 H (22-30) mmol/L Anion Gap 12 (10-20) BUN 6 L (9-20) mg/dL Creatinine 0.4 L (0.8-1.5) mg/dL Est GFR ( Amer) > 60 Est GFR (Non-Af Amer) > 60 Random Glucose 106 (75-110) mg/dL Calcium 8.2 L (8.6-10.4) mg/dl Phosphorus 3.0 (2.5-4.5) mg/dL Magnesium 1.8 (1.6-2.3) mg/dL Total Bilirubin 0.6 (0.2-1.3) mg/dL AST 26 (17-59) U/L ALT 16 L (21-72) U/L Alkaline Phosphatase 115 (38-126) U/L Troponin I < 0.0120 (0.00-0.120) ng/mL NT-Pro-B Natriuret Pep 158 (0-900) pg/mL Total Protein 8.1 (6.3-8.3) g/dL Albumin 3.5 (3.5-5.0) g/dL Globulin 4.6 H (2.2-3.9) gm/dL Albumin/Globulin Ratio 0.7 L (1.0-2.1) Procalcitonin (0.19-0.49) NG/ML Blood Type Antibody Screen 02/20/18 02/20/18 02/20/18 Range/Units 15:49 06:58 06:58 WBC (4.8-10.8) K/uL RBC (4.40-5.90) Mil/uL Hgb (12.0-18.0) g/dL Hct (35.0-51.0) % MCV (80.0-94.0) fL MCH (27.0-31.0) pg MCHC (33.0-37.0) g/dL RDW (11.5-14.5) % Plt Count (130-400) K/uL MPV (7.2-11.7) fL Neut % (Auto) (50.0-75.0) % Lymph % (Auto) (20.0-40.0) % [place] % (Auto) (0.0-10.0) % Eos % (Auto) (0.0-4.0) % Baso % (Auto) (0.0-2.0) % Neut # (Auto) (1.8-7.0) K/uL Lymph # (Auto) (1.0-4.3) K/uL [place] # (Auto) (0.0-0.8) K/uL Eos # (Auto) (0.0-0.7) K/uL Baso # (Auto) (0.0-0.2) K/uL Sodium 132 (132-148) mmol/L Potassium 4.0 (3.6-5.2) mmol/L Chloride 88 L (98-107) mmol/L Carbon Dioxide 34 H (22-30) mmol/L Anion Gap 13 (10-20) BUN 5 L (9-20) mg/dL Creatinine 0.4 L (0.8-1.5) mg/dL Est GFR ( Amer) > 60 Est GFR (Non-Af Amer) > 60 Random Glucose 115 H (75-110) mg/dL Calcium 8.3 L (8.6-10.4) mg/dl Phosphorus (2.5-4.5) mg/dL Magnesium (1.6-2.3) mg/dL Total Bilirubin 0.5 (0.2-1.3) mg/dL AST 26 (17-59) U/L ALT 17 L (21-72) U/L Alkaline Phosphatase 89 (38-126) U/L Troponin I (0.00-0.120) ng/mL NT-Pro-B Natriuret Pep (0-900) pg/mL Total Protein 7.6 (6.3-8.3) g/dL Albumin 3.2 L (3.5-5.0) g/dL Globulin 4.4 H (2.2-3.9) gm/dL Albumin/Globulin Ratio 0.7 L (1.0-2.1) Procalcitonin 0.14 L (0.19-0.49) NG/ML Blood Type O POSITIVE Antibody Screen Negative Laboratory Results - last 24 hr 02/20/18 02/20/18 02/20/18 06:58 06:58 15:49 WBC RBC Hgb Hct MCV MCH MCHC RDW Plt Count MPV Neut % (Auto) Lymph % (Auto) [place] % (Auto) Eos % (Auto) Baso % (Auto) Neut # (Auto) Lymph # (Auto) [place] # (Auto) Eos # (Auto) Baso # (Auto) Sodium 132 Potassium 4.0 Chloride 88 L Carbon Dioxide 34 H Anion Gap 13 BUN 5 L Creatinine 0.4 L Est GFR ( Amer) > 60 Est GFR (Non-Af Amer) > 60 Random Glucose 115 H Calcium 8.3 L Phosphorus Magnesium Total Bilirubin 0.5 AST 26 ALT 17 L Alkaline Phosphatase 89 Troponin I NT-Pro-B Natriuret Pep Total Protein 7.6 Albumin 3.2 L Globulin 4.4 H Albumin/Globulin Ratio 0.7 L Procalcitonin 0.14 L Blood Type O POSITIVE Antibody Screen Negative 02/20/18 02/21/18 02/21/18 15:49 06:22 06:22 WBC 8.0 RBC 4.55 Hgb 13.6 Hct 41.0 MCV 90.0 MCH 29.9 MCHC 33.3 RDW 14.1 Plt Count 414 H MPV 7.1 L Neut % (Auto) 80.5 H Lymph % (Auto) 10.6 L [place] % (Auto) 7.2 Eos % (Auto) 1.2 Baso % (Auto) 0.5 Neut # (Auto) 6.4 Lymph # (Auto) 0.8 L [place] # (Auto) 0.6 Eos # (Auto) 0.1 Baso # (Auto) 0.0 Sodium 129 L Potassium 4.4 Chloride 85 L Carbon Dioxide 36 H Anion Gap 12 BUN 6 L Creatinine 0.4 L Est GFR ( Amer) > 60 Est GFR (Non-Af Amer) > 60 Random Glucose 106 Calcium 8.2 L Phosphorus 3.0 Magnesium 1.8 Total Bilirubin 0.6 AST 26 ALT 16 L Alkaline Phosphatase 115 Troponin I < 0.0120 NT-Pro-B Natriuret Pep 158 Total Protein 8.1 Albumin 3.5 Globulin 4.6 H Albumin/Globulin Ratio 0.7 L Procalcitonin Blood Type Antibody Screen Critical Care Progress Note - Nutrition Nutrition: Nutrition Category Date Time Status Liquid Diet [DIET] Diets 02/20/18 Lunch Active Assessment/Plan - Assessment and Plan (Free Text) Assessment: Patient is a 72M with PMHx of alzheimers and "prostate problem" presenting with cholecystitis. Patient admitted to ICU for worsening pulmonary function and hypoxia. Plan: Neuro: - Patient is AAO X 3 Cardiovascular: - Echo (02/17): LVEF 77%, LV with normal function - No acute issues Pulm: Respiratory distress - CXR (02/13): Chronic appearing right lower lobe atelectasis. There are also patchy interstitial infiltrate and probably alveolar-type infiltrates in the lef t mid to lower lung field the latter of which appear more confluent in the lower lung field. Questionable small bilateral effusions and/or pleural thickening. - Chest CT (02/20): Bilateral infiltrates primarily affecting lower lobes left greater than right. - Pulmonology consulted, Dr. Eric Wild Q6 Possible PNA - Azithromycin 500mg IV QD (Started on 02/14) - Cefepime 1g IV Q12 (Started on 02/13) - Procalcitonin: 0.14 - M. pneumoniae IgM: WNL GI: Cholecystitis - CT Abd/pelvis (02/13): Cholelithiasis with dilatation of the common bile duct and what appears represent least 1 nonobstructing tiny calculus within the region of the junction of the common bile duct and pancreatic duct. Gallbladder is distended. - HIDA scan showed scute cholecystitis - Abd ultrasound (02/13): Echogenic liver may be seen in setting of hepatic parenchymal disease or fatty infiltration. - GI consulted, Dr. Ch - Surgery consulted, Dr. Boothe Constipation: - Colace 100mg PO BID - Miralax daily Renal: Hyponatremia - Improving - Nephrology consulted, Dr. Ewing - Continue to monitor Hypokalemia - Potassium chloride 40mEq PO QD - Continue to monitor Prophylaxis: - Heparin 5000 units SC Q8 - Protonix 40mg PO QD Case discussed with Dr. Gian Braxton, PGY-1 <Hailey Amaya - Last Filed: 02/21/18 16:30> CCU Objective - Vital Signs / Intake & Output Vital Signs (Last 4 hours): Vital Signs Pulse Resp 02/21/18 13:30 94 H 26 H 02/21/18 13:20 97 H 26 H 02/21/18 13:10 95 H 28 H 02/21/18 13:00 100 H 31 H 02/21/18 12:50 104 H 24 02/21/18 12:40 107 H 21 02/21/18 12:30 109 H 28 H Intake and Output (Last 8hrs): Intake & Output 02/21/18 02/21/18 02/21/18 06:59 14:59 22:59 Intake Total 410 0 Output Total 50 0 Balance 360 0 Intake: Intake, IV Amount 50 Right Forearm 50 Oral 360 0 Output: Urine 50 0 Urine, Voided 50 0 - Medications Active Medications: Active Medications Generic Name Dose Route Start Last Admin Trade Name Freq PRN Reason Stop Dose Admin Al Hydrox/Mg Hydrox/Simethicone 30 ml 02/20/18 17:57 Maalox Plus 30 Ml PO Q6H PRN Indigestion / Heartburn Albuterol/Ipratropium 3 ml 02/13/18 20:00 02/21/18 13:35 Duoneb 3 Mg/0.5 Mg (3 Ml) Ud INH Not Given RQ6 VELMA Docusate Sodium 100 mg 02/13/18 10:00 02/21/18 10:30 Colace PO 100 mg BID VELMA Administration Heparin Sodium (Porcine) 5,000 units 02/20/18 22:00 02/21/18 05:14 Heparin SC 5,000 units Q8 VELMA Administration Azithromycin 500 mg/ Sodium 250 mls @ 250 mls/hr 02/14/18 10:00 02/21/18 10:30 Chloride IVPB 250 mls/hr DAILY VELMA Administration Protocol Cefepime HCl 1 gm in 50 mls @ 100 mls/hr 02/13/18 16:00 02/21/18 04:30 Maxipime Iv 1 Gm Premix IVPB 100 mls/hr 0400,1600 VELMA Administration Protocol Mupirocin 0.25 gm 02/15/18 10:00 02/21/18 10:30 Bactroban Ointment TOP 02/22/18 10:01 1 applic BID VELMA Administration Pantoprazole Sodium 40 mg 02/18/18 10:00 02/21/18 10:30 Protonix Ec Tab PO 40 mg DAILY VELMA Administration Polyethylene Glycol 17 gm 02/13/18 10:00 02/21/18 10:30 Miralax PO 17 gm DAILY VELMA Administration Potassium Chloride 40 meq 02/16/18 08:31 02/21/18 10:30 Potassium Chloride Oral Soln PO 40 meq DAILY VELMA Administration - Patient Studies Lab Studies: Lab Studies 02/21/18 02/21/18 02/20/18 Range/Units 06:22 06:22 15:49 WBC 8.0 (4.8-10.8) K/uL RBC 4.55 (4.40-5.90) Mil/uL Hgb 13.6 (12.0-18.0) g/dL Hct 41.0 (35.0-51.0) % MCV 90.0 (80.0-94.0) fL MCH 29.9 (27.0-31.0) pg MCHC 33.3 (33.0-37.0) g/dL RDW 14.1 (11.5-14.5) % Plt Count 414 H (130-400) K/uL MPV 7.1 L (7.2-11.7) fL Neut % (Auto) 80.5 H (50.0-75.0) % Lymph % (Auto) 10.6 L (20.0-40.0) % [place] % (Auto) 7.2 (0.0-10.0) % Eos % (Auto) 1.2 (0.0-4.0) % Baso % (Auto) 0.5 (0.0-2.0) % Neut # (Auto) 6.4 (1.8-7.0) K/uL Lymph # (Auto) 0.8 L (1.0-4.3) K/uL [place] # (Auto) 0.6 (0.0-0.8) K/uL Eos # (Auto) 0.1 (0.0-0.7) K/uL Baso # (Auto) 0.0 (0.0-0.2) K/uL Sodium 129 L (132-148) mmol/L Potassium 4.4 (3.6-5.2) mmol/L Chloride 85 L (98-107) mmol/L Carbon Dioxide 36 H (22-30) mmol/L Anion Gap 12 (10-20) BUN 6 L (9-20) mg/dL Creatinine 0.4 L (0.8-1.5) mg/dL Est GFR ( Amer) > 60 Est GFR (Non-Af Amer) > 60 Random Glucose 106 (75-110) mg/dL Calcium 8.2 L (8.6-10.4) mg/dl Phosphorus 3.0 (2.5-4.5) mg/dL Magnesium 1.8 (1.6-2.3) mg/dL Total Bilirubin 0.6 (0.2-1.3) mg/dL AST 26 (17-59) U/L ALT 16 L (21-72) U/L Alkaline Phosphatase 115 (38-126) U/L Troponin I < 0.0120 (0.00-0.120) ng/mL NT-Pro-B Natriuret Pep 158 (0-900) pg/mL Total Protein 8.1 (6.3-8.3) g/dL Albumin 3.5 (3.5-5.0) g/dL Globulin 4.6 H (2.2-3.9) gm/dL Albumin/Globulin Ratio 0.7 L (1.0-2.1) Procalcitonin (0.19-0.49) NG/ML 02/20/18 Range/Units 15:49 WBC (4.8-10.8) K/uL RBC (4.40-5.90) Mil/uL Hgb (12.0-18.0) g/dL Hct (35.0-51.0) % MCV (80.0-94.0) fL MCH (27.0-31.0) pg MCHC (33.0-37.0) g/dL RDW (11.5-14.5) % Plt Count (130-400) K/uL MPV (7.2-11.7) fL Neut % (Auto) (50.0-75.0) % Lymph % (Auto) (20.0-40.0) % [place] % (Auto) (0.0-10.0) % Eos % (Auto) (0.0-4.0) % Baso % (Auto) (0.0-2.0) % Neut # (Auto) (1.8-7.0) K/uL Lymph # (Auto) (1.0-4.3) K/uL [place] # (Auto) (0.0-0.8) K/uL Eos # (Auto) (0.0-0.7) K/uL Baso # (Auto) (0.0-0.2) K/uL Sodium (132-148) mmol/L Potassium (3.6-5.2) mmol/L Chloride (98-107) mmol/L Carbon Dioxide (22-30) mmol/L Anion Gap (10-20) BUN (9-20) mg/dL Creatinine (0.8-1.5) mg/dL Est GFR ( Amer) Est GFR (Non-Af Amer) Random Glucose (75-110) mg/dL Calcium (8.6-10.4) mg/dl Phosphorus (2.5-4.5) mg/dL Magnesium (1.6-2.3) mg/dL Total Bilirubin (0.2-1.3) mg/dL AST (17-59) U/L ALT (21-72) U/L Alkaline Phosphatase (38-126) U/L Troponin I (0.00-0.120) ng/mL NT-Pro-B Natriuret Pep (0-900) pg/mL Total Protein (6.3-8.3) g/dL Albumin (3.5-5.0) g/dL Globulin (2.2-3.9) gm/dL Albumin/Globulin Ratio (1.0-2.1) Procalcitonin 0.14 L (0.19-0.49) NG/ML Laboratory Results - last 24 hr 02/20/18 02/20/18 02/21/18 15:49 15:49 06:22 WBC 8.0 RBC 4.55 Hgb 13.6 Hct 41.0 MCV 90.0 MCH 29.9 MCHC 33.3 RDW 14.1 Plt Count 414 H MPV 7.1 L Neut % (Auto) 80.5 H Lymph % (Auto) 10.6 L [place] % (Auto) 7.2 Eos % (Auto) 1.2 Baso % (Auto) 0.5 Neut # (Auto) 6.4 Lymph # (Auto) 0.8 L [place] # (Auto) 0.6 Eos # (Auto) 0.1 Baso # (Auto) 0.0 Sodium Potassium Chloride Carbon Dioxide Anion Gap BUN Creatinine Est GFR ( Amer) Est GFR (Non-Af Amer) Random Glucose Calcium Phosphorus Magnesium Total Bilirubin AST ALT Alkaline Phosphatase Troponin I < 0.0120 NT-Pro-B Natriuret Pep 158 Total Protein Albumin Globulin Albumin/Globulin Ratio Procalcitonin 0.14 L 02/21/18 06:22 WBC RBC Hgb Hct MCV MCH MCHC RDW Plt Count MPV Neut % (Auto) Lymph % (Auto) [place] % (Auto) Eos % (Auto) Baso % (Auto) Neut # (Auto) Lymph # (Auto) [place] # (Auto) Eos # (Auto) Baso # (Auto) Sodium 129 L Potassium 4.4 Chloride 85 L Carbon Dioxide 36 H Anion Gap 12 BUN 6 L Creatinine 0.4 L Est GFR ( Amer) > 60 Est GFR (Non-Af Amer) > 60 Random Glucose 106 Calcium 8.2 L Phosphorus 3.0 Magnesium 1.8 Total Bilirubin 0.6 AST 26 ALT 16 L Alkaline Phosphatase 115 Troponin I NT-Pro-B Natriuret Pep Total Protein 8.1 Albumin 3.5 Globulin 4.6 H Albumin/Globulin Ratio 0.7 L Procalcitonin Critical Care Progress Note - Nutrition Nutrition: Nutrition Category Date Time Status Liquid Diet [DIET] Diets 02/20/18 Lunch Active Assessment/Plan - Assessment and Plan (Free Text) Plan: Patient seen and examined at bedside. Patient has underlying lung disease with chronic CO2 retention. Patient saturating 93% on room air. Patient denies any abdominal pain. PAtient wants to eat food and would like to be discharged home. -Patient refuses bi-pap PRN -risks, benefits and alertnatives of refusing bi-pap explained. -Patient remains hemodynamically stable. -continue management as per primary team. - Date & Time Date: 02/21/18 Time: 16:30
--- NOTE | 2018-02-21 09:20 | CP.PCM.PN ---
Subjective - Date & Time of Evaluation Date of Evaluation: 02/21/18 Time of Evaluation: 09:17 - Subjective Subjective: OR cancelled as patient was tachypneic, tachy Appears at [place] now; in NAD Na 129- acceptable post tovalptan use Continue po fluid restriction for now Objective - Vital Signs/Intake and Output Vital Signs (last 24 hours): Temp Pulse Resp BP Pulse Ox 98.9 F 104 H 28 H 121/79 97 02/21/18 04:00 02/21/18 07:30 02/21/18 07:30 02/21/18 07:20 02/21/18 07:30 Intake and Output: 02/21/18 02/21/18 06:59 18:59 Intake Total 770 0 Output Total 200 0 Balance 570 0 - Medications Medications: Current Medications Al Hydrox/Mg Hydrox/Simethicone (Maalox Plus 30 Ml) 30 ml PO Q6H PRN PRN Reason: Indigestion / Heartburn Albuterol/Ipratropium (Duoneb 3 Mg/0.5 Mg (3 Ml) Ud) 3 ml INH RQ6 VELMA Last Admin: 02/21/18 08:19 Dose: Not Given Docusate Sodium (Colace) 100 mg PO BID VELMA Last Admin: 02/20/18 19:02 Dose: 100 mg Heparin Sodium (Porcine) (Heparin) 5,000 units SC Q8 VELMA Last Admin: 02/21/18 05:14 Dose: 5,000 units Azithromycin 500 mg/ Sodium (Chloride) 250 mls @ 250 mls/hr IVPB DAILY VELMA; Protocol Last Admin: 02/20/18 10:37 Dose: 250 mls/hr Cefepime HCl (Maxipime Iv 1 Gm Premix) 1 gm in 50 mls @ 100 mls/hr IVPB 0400,1600 VELMA; Protocol Last Admin: 02/21/18 04:30 Dose: 100 mls/hr Mupirocin (Bactroban Ointment) 0.25 gm TOP BID VELMA Stop: 02/22/18 10:01 Last Admin: 02/20/18 19:02 Dose: 1 applic Pantoprazole Sodium (Protonix Ec Tab) 40 mg PO DAILY VELMA Last Admin: 02/20/18 10:12 Dose: Not Given Polyethylene Glycol (Miralax) 17 gm PO DAILY VELMA Last Admin: 02/20/18 10:11 Dose: Not Given Potassium Chloride (Potassium Chloride Oral Soln) 40 meq PO DAILY VELMA Last Admin: 02/20/18 10:12 Dose: Not Given - Labs Labs: 02/21/18 06:22 02/21/18 06:22 PT 21.9 SECONDS (9.7-12.2) H 02/13/18 18:36 INR 2.0 02/13/18 18:36 APTT 44 SECONDS (21-34) H 02/13/18 18:36 - Constitutional Appears: No Acute Distress, Chronically Ill - Head Exam Head Exam: ATRAUMATIC, NORMAL INSPECTION - Eye Exam Eye Exam: EOMI, Normal appearance - Neck Exam Neck Exam: Normal Inspection. absent: Tenderness - Respiratory Exam Respiratory Exam: Clear to Ausculation Bilateral, NORMAL BREATHING PATTERN - Cardiovascular Exam Cardiovascular Exam: Tachycardia, +S1 - GI/Abdominal Exam GI & Abdominal Exam: Soft. absent: Tenderness - Extremities Exam Extremities Exam: Normal Inspection. 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
[2018-02-21] MEDS: Azithromycin 500 MG in Sodium Chloride 0.9% 250 ML IVPB SCH (10:30)
[2018-02-21] MEDS: POLYETHYLENE GLYCOL 3350 17 GM/Dose PACKET PO SCH (10:30)
[2018-02-21] MEDS: Pantoprazole 40 mg EC Tab PO SCH (10:30)
[2018-02-21] MEDS: Potassium Chloride 20 mEq/15 ml LIQ UD PO SCH (10:30)
--- NOTE | 2018-02-21 14:03 | CP.PCM.PN ---
Subjective - Date & Time of Evaluation Date of Evaluation: 02/21/18 Time of Evaluation: 14:01 - Subjective Subjective: Yesterday patient in the OR became tachypneic and tachycardic with low saturation. Chest x-ray showed bilateral infiltrates. The surgery was postponed and was patient was transferred to ICU. CAT scan of the chest showed left more than right basal infiltrates. After nebulizer and steroids patient's condition has improved and currently saturating well. Patient is still disoriented and confused. Continue pulmonary therapy and optimized for surgery probably next week. Sodium is 129. Objective - Vital Signs/Intake and Output Vital Signs (last 24 hours): Temp Pulse Resp BP Pulse Ox 98.9 F 94 H 26 H 127/71 95 02/21/18 04:00 02/21/18 13:30 02/21/18 13:30 02/21/18 08:21 02/21/18 12:20 Intake and Output: 02/21/18 02/21/18 11:59 23:59 Intake Total 410 Output Total 50 Balance 360 - Medications Medications: Current Medications Al Hydrox/Mg Hydrox/Simethicone (Maalox Plus 30 Ml) 30 ml PO Q6H PRN PRN Reason: Indigestion / Heartburn Albuterol/Ipratropium (Duoneb 3 Mg/0.5 Mg (3 Ml) Ud) 3 ml INH RQ6 VELMA Last Admin: 02/21/18 13:35 Dose: Not Given Docusate Sodium (Colace) 100 mg PO BID [facility] Last Admin: 02/21/18 10:30 Dose: 100 mg Heparin Sodium (Porcine) (Heparin) 5,000 units SC Q8 [facility] Last Admin: 02/21/18 05:14 Dose: 5,000 units Azithromycin 500 mg/ Sodium (Chloride) 250 mls @ 250 mls/hr IVPB DAILY [facility]; Protocol Last Admin: 02/21/18 10:30 Dose: 250 mls/hr Cefepime HCl (Maxipime Iv 1 Gm Premix) 1 gm in 50 mls @ 100 mls/hr IVPB 0400,1600 VELMA; Protocol Last Admin: 02/21/18 04:30 Dose: 100 mls/hr Mupirocin (Bactroban Ointment) 0.25 gm TOP BID [facility] Stop: 02/22/18 10:01 Last Admin: 02/21/18 10:30 Dose: 1 applic Pantoprazole Sodium (Protonix Ec Tab) 40 mg PO DAILY VELMA Last Admin: 02/21/18 10:30 Dose: 40 mg Polyethylene Glycol (Miralax) 17 gm PO DAILY VELMA Last Admin: 02/21/18 10:30 Dose: 17 gm Potassium Chloride (Potassium Chloride Oral Soln) 40 meq PO DAILY VELMA Last Admin: 02/21/18 10:30 Dose: 40 meq - Labs Labs: 02/21/18 06:22 02/21/18 06:22 PT 21.9 SECONDS (9.7-12.2) H 02/13/18 18:36 INR 2.0 02/13/18 18:36 APTT 44 SECONDS (21-34) H 02/13/18 18:36
--- NOTE | 2018-02-21 15:27 | CP.PCM.PN ---
Subjective - Date & Time of Evaluation Date of Evaluation: 02/21/18 Time of Evaluation: 15:24 - Subjective Subjective: PT ALERT, NO DISTRESS. NO SOB . NO COUGH. ROS ; OTHERWISE NEG. Objective - Vital Signs/Intake and Output Vital Signs (last 24 hours): Temp Pulse Resp BP Pulse Ox 98.9 F 94 H 26 H 127/71 95 02/21/18 04:00 02/21/18 13:30 02/21/18 13:30 02/21/18 08:21 02/21/18 12:20 Intake and Output: 02/21/18 02/21/18 06:59 18:59 Intake Total 770 0 Output Total 200 0 Balance 570 0 - Medications Medications: Current Medications Al Hydrox/Mg Hydrox/Simethicone (Maalox Plus 30 Ml) 30 ml PO Q6H PRN PRN Reason: Indigestion / Heartburn Albuterol/Ipratropium (Duoneb 3 Mg/0.5 Mg (3 Ml) Ud) 3 ml INH RQ6 [facility] Last Admin: 02/21/18 13:35 Dose: Not Given Docusate Sodium (Colace) 100 mg PO BID [facility] Last Admin: 02/21/18 10:30 Dose: 100 mg Heparin Sodium (Porcine) (Heparin) 5,000 units SC Q8 [facility] Last Admin: 02/21/18 05:14 Dose: 5,000 units Azithromycin 500 mg/ Sodium (Chloride) 250 mls @ 250 mls/hr IVPB DAILY [facility]; Protocol Last Admin: 02/21/18 10:30 Dose: 250 mls/hr Cefepime HCl (Maxipime Iv 1 Gm Premix) 1 gm in 50 mls @ 100 mls/hr IVPB 0400,1600 [facility]; Protocol Last Admin: 02/21/18 04:30 Dose: 100 mls/hr Mupirocin (Bactroban Ointment) 0.25 gm TOP BID [facility] Stop: 02/22/18 10:01 Last Admin: 02/21/18 10:30 Dose: 1 applic Pantoprazole Sodium (Protonix Ec Tab) 40 mg PO DAILY [facility] Last Admin: 02/21/18 10:30 Dose: 40 mg Polyethylene Glycol (Miralax) 17 gm PO DAILY [facility] Last Admin: 02/21/18 10:30 Dose: 17 gm Potassium Chloride (Potassium Chloride Oral Soln) 40 meq PO DAILY [facility] Last Admin: 02/21/18 10:30 Dose: 40 meq - Labs Labs: 02/21/18 06:22 02/21/18 06:22 PT 21.9 SECONDS (9.7-12.2) H 02/13/18 18:36 INR 2.0 02/13/18 18:36 APTT 44 SECONDS (21-34) H 02/13/18 18:36 - Constitutional Appears: No Acute Distress, Confused, Cachectic, Chronically Ill - Head Exam Head Exam: ATRAUMATIC, NORMOCEPHALIC - Eye Exam Eye Exam: EOMI, Normal appearance - ENT Exam ENT Exam: Mucous Membranes Moist - Neck Exam Neck Exam: Normal Inspection - Respiratory Exam Respiratory Exam: Decreased Breath Sounds. absent: Respiratory Distress - Cardiovascular Exam Cardiovascular Exam: RRR, +S1, +S2 - GI/Abdominal Exam GI & Abdominal Exam: Soft - Rectal Exam Rectal Exam: Deferred - Extremities Exam Extremities Exam: absent: Calf Tenderness, Pedal Edema - Back Exam Back Exam: absent: CVA tenderness (L), CVA tenderness (R) - Neurological Exam Neurological Exam: Alert. absent: Awake, CN II-XII Intact, Oriented x3 - Skin Skin Exam: absent: Rash Assessment and Plan (1) Alzheimer disease Status: Acute (2) Cholelithiases Status: Acute (3) COPD exacerbation Status: Acute (4) Abdominal pain Status: Acute (5) Pneumonia Status: Acute (6) Cachexia Status: Acute (7) Respiratory failure Status: Acute - Assessment and Plan (Free Text) Assessment: RESP STATUS UNLABORED. CONT PULM TOILET., MONITOR O2 SAT. CT CHEST REVIEWED. CONT AB. TOLERATING PO DIET. PROG POOR. DISCUSSED WITH STAFF AT LENGTH.
--- NOTE | 2018-02-21 20:14 | CP.PCM.PN ---
Subjective - Date & Time of Evaluation Date of Evaluation: 02/21/18 Time of Evaluation: 20:14 - Subjective Subjective: AFEBRILE, AWAKE,RESPONSIVE. IN NO RESPIRATORY DISTRESS. OFFERS NO NEW COMPLAINTS. STILL TACHYCARDIAC Objective - Vital Signs/Intake and Output Vital Signs (last 24 hours): Temp Pulse Resp BP Pulse Ox 97.4 F L 104 H 28 H 111/65 96 02/21/18 20:00 02/21/18 20:00 02/21/18 20:00 02/21/18 20:00 02/21/18 20:00 Intake and Output: 02/21/18 02/22/18 18:59 06:59 Intake Total 150 Output Total 500 Balance -350 - Medications Medications: Current Medications Al Hydrox/Mg Hydrox/Simethicone (Maalox Plus 30 Ml) 30 ml PO Q6H PRN PRN Reason: Indigestion / Heartburn Albuterol/Ipratropium (Duoneb 3 Mg/0.5 Mg (3 Ml) Ud) 3 ml INH RQ6 [facility] Last Admin: 02/21/18 20:01 Dose: Not Given Alprazolam (Xanax) 0.25 mg PO BID PRN PRN Reason: Anxiety Stop: 02/28/18 19:37 Docusate Sodium (Colace) 100 mg PO BID [facility] Last Admin: 02/21/18 18:50 Dose: 100 mg Heparin Sodium (Porcine) (Heparin) 5,000 units SC Q8 [facility] Last Admin: 02/21/18 14:25 Dose: 5,000 units Azithromycin 500 mg/ Sodium (Chloride) 250 mls @ 250 mls/hr IVPB DAILY [facility]; Protocol Last Admin: 02/21/18 10:30 Dose: 250 mls/hr Cefepime HCl (Maxipime Iv 1 Gm Premix) 1 gm in 50 mls @ 100 mls/hr IVPB 0400,1 600 [facility]; Protocol Last Admin: 02/21/18 16:20 Dose: 100 mls/hr Mupirocin (Bactroban Ointment) 0.25 gm TOP BID [facility] Stop: 02/22/18 10:01 Last Admin: 02/21/18 18:49 Dose: 1 applic Pantoprazole Sodium (Protonix Ec Tab) 40 mg PO DAILY [facility] Last Admin: 02/21/18 10:30 Dose: 40 mg Polyethylene Glycol (Miralax) 17 gm PO DAILY [facility] Last Admin: 02/21/18 10:30 Dose: 17 gm Potassium Chloride (Potassium Chloride Oral Soln) 40 meq PO DAILY [facility] Last Admin: 02/21/18 10:30 Dose: 40 meq - Labs Labs: 02/21/18 06:22 02/21/18 06:22 PT 21.9 SECONDS (9.7-12.2) H 02/13/18 18:36 INR 2.0 02/13/18 18:36 APTT 44 SECONDS (21-34) H 02/13/18 18:36 - Constitutional Appears: No Acute Distress, Cachectic, Chronically Ill - Head Exam Head Exam: NORMAL INSPECTION - Eye Exam Eye Exam: EOMI, PERRL - ENT Exam ENT Exam: Normal Oropharynx - Neck Exam Neck Exam: Normal Inspection - Respiratory Exam Respiratory Exam: Decreased Breath Sounds, NORMAL BREATHING PATTERN - Cardiovascular Exam Cardiovascular Exam: Tachycardia, REGULAR RHYTHM, +S1, +S2 - GI/Abdominal Exam GI & Abdominal Exam: Soft, Normal Bowel Sounds. absent: Distended, Guarding, Tenderness - Extremities Exam Extremities Exam: Normal Capillary Refill. absent: Calf Tenderness, Pedal Edema - Neurological Exam Neurological Exam: Awake, CN II-XII Intact, Reflexes Normal - Psychiatric Exam Psychiatric exam: Normal Mood - Skin Skin Exam: Normal Color, Warm Assessment and Plan (1) Abdominal pain Assessment & Plan: IMPROVED. PER SURGERY. Status: Acute (2) Pneumonia Assessment & Plan: ON IV ABX . PULMONARY TOILET. CONTINUE iv CEFEPIME 1 G EVERY 12 HOURLY 02/13/18. CONTINUE iv ZITHROMAX 500 MG ONCE A DAY DAILY 02/13/18. MRSA SCREEN-REPEAT -VE. DC CONTACT ISOLATION. Status: Acute (3) COPD exacerbation Status: Acute (4) Cholelithiases Status: Acute (5) Cachexia Status: Acute (6) Alzheimer disease Status: Acute
[2018-02-22] MEDS: Albuterol-Ipratrop 3 mg / 0.5 (3 ml) UD INH SCH ×4 (01:13→19:03)
[2018-02-22] MEDS: Cefepime IV 1 gm in Dextrose 1 GM/50 ML BAG IVPB SCH ×2 (03:06→16:19)
[2018-02-22 05:42] LABS: BASO % 0.6 % (0.0-2.0); EOS # 0.1 K/uL (0.0-0.7); EOS % 1.8 % (0.0-4.0); HEMOGLOBIN 12.8 g/dL (12.0-18.0); LYMPH % 13.6 % (20.0-40.0); MEAN CELL VOLUME 88.9 fL (80.0-94.0); MEAN CORPUSCULAR HEMOGLOBIN 29.1 pg (27.0-31.0); MEAN CORPUSCULAR HGB CONC 32.7 g/dL (33.0-37.0); MEAN PLATELET VOLUME 7.1 fL (7.2-11.7); MONO # 0.6 K/uL (0.0-0.8); MONO % 7.3 % (0.0-10.0); NEUT # 5.9 K/uL (1.8-7.0); NEUT % 76.7 % (50.0-75.0); RBC 4.4 Mil/uL (4.40-5.90); RED CELL DISTRIBUTION WIDTH 14.3 % (11.5-14.5); WHITE BLOOD COUNT 7.7 K/uL (4.8-10.8)
[2018-02-22 06:38] LABS: ALB/GLOB RATIO 0.7 (1.0-2.1); ALBUMIN 3.2 g/dL (3.5-5.0); ALT/SGPT 18 U/L (21-72); AST/SGOT 22 U/L (17-59); BLOOD UREA NITROGEN 6 mg/dL (9-20); CALCIUM 8.2 mg/dl (8.6-10.4); GFR NON-AFRICAN AMERICAN > 60
--- NOTE | 2018-02-22 10:11 | CP.PCM.PN ---
Subjective - Date & Time of Evaluation Date of Evaluation: 02/22/18 Time of Evaluation: 10:08 - Subjective Subjective: Notes reviewed OOB in chair in icu Remains confused, unable to provide any history Video monitor at bedside No distress ROS unobtainable due to ams Objective - Vital Signs/Intake and Output Vital Signs (last 24 hours): Temp Pulse Resp BP Pulse Ox 97.6 F 95 H 26 H 111/68 99 02/22/18 08:00 02/22/18 08:00 02/22/18 08:00 02/22/18 07:50 02/22/18 08:00 Intake and Output: 02/22/18 02/22/18 06:59 18:59 Intake Total 290 Output Total 800 Balance -510 - Medications Medications: Current Medications Al Hydrox/Mg Hydrox/Simethicone (Maalox Plus 30 Ml) 30 ml PO Q6H PRN PRN Reason: Indigestion / Heartburn Albuterol/Ipratropium (Duoneb 3 Mg/0.5 Mg (3 Ml) Ud) 3 ml INH RQ6 [facility] Last Admin: 02/22/18 08:11 Dose: Not Given Alprazolam (Xanax) 0.25 mg PO BID PRN PRN Reason: Anxiety Stop: 02/28/18 19:37 Last Admin: 02/21/18 20:59 Dose: 0.25 mg Docusate Sodium (Colace) 100 mg PO BID [facility] Last Admin: 02/21/18 18:50 Dose: 100 mg Heparin Sodium (Porcine) (Heparin) 5,000 units SC Q8 [facility] Last Admin: 02/22/18 05:24 Dose: 5,000 units Azithromycin 500 mg/ Sodium (Chloride) 250 mls @ 250 mls/hr IVPB DAILY [facility]; Protocol Last Admin: 02/21/18 10:30 Dose: 250 mls/hr Cefepime HCl (Maxipime Iv 1 Gm Premix) 1 gm in 50 mls @ 100 mls/hr IVPB 0400,1600 [facility]; Protocol Last Admin: 02/22/18 03:06 Dose: 100 mls/hr Pantoprazole Sodium (Protonix Ec Tab) 40 mg PO DAILY [facility] Last Admin: 02/21/18 10:30 Dose: 40 mg Polyethylene Glycol (Miralax) 17 gm PO DAILY [facility] Last Admin: 02/21/18 10:30 Dose: 17 gm Potassium Chloride (Potassium Chloride Oral Soln) 40 meq PO DAILY [facility] Last Admin: 02/21/18 10:30 Dose: 40 meq - Labs Labs: 02/22/18 05:34 02/22/18 05:34 PT 21.9 SECONDS (9.7-12.2) H 02/13/18 18:36 INR 2.0 02/13/18 18:36 APTT 44 SECONDS (21-34) H 02/13/18 18:36 - Constitutional Appears: Non-toxic, Unkempt, Cachectic, Chronically Ill - Eye Exam Eye Exam: EOMI, Normal appearance - ENT Exam ENT Exam: Mucous Membranes Dry - Neck Exam Neck Exam: absent: Lymphadenopathy, Thyromegaly - Respiratory Exam Respiratory Exam: absent: Rales, Rhonchi - Cardiovascular Exam Cardiovascular Exam: +S1, +S2. absent: JVD - GI/Abdominal Exam GI & Abdominal Exam: Soft, Normal Bowel Sounds - Extremities Exam Extremities Exam: absent: Joint Swelling, Pedal Edema - Neurological Exam Neurological Exam: Awake. 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
[2018-02-22] MEDS: Potassium Chloride 20 mEq/15 ml LIQ UD PO SCH (10:29)
[2018-02-22] MEDS: POLYETHYLENE GLYCOL 3350 17 GM/Dose PACKET PO SCH (10:30)
[2018-02-22] MEDS: Azithromycin 500 MG in Sodium Chloride 0.9% 250 ML IVPB SCH (10:30)
[2018-02-22] MEDS: Pantoprazole 40 mg EC Tab PO SCH (10:30)
--- NOTE | 2018-02-22 12:12 | CP.PCM.PN ---
Subjective - Date & Time of Evaluation Date of Evaluation: 02/22/18 Time of Evaluation: 12:11 - Subjective Subjective: PT ALERT, READING NEWSPAPER., NO SOB. WANTS TO GO HOME. ROS; OTHERWISE NEG. Objective - Vital Signs/Intake and Output Vital Signs (last 24 hours): Temp Pulse Resp BP Pulse Ox 97.6 F 95 H 26 H 111/68 99 02/22/18 08:00 02/22/18 08:00 02/22/18 08:00 02/22/18 07:50 02/22/18 08:00 Intake and Output: 02/22/18 02/22/18 06:59 18:59 Intake Total 290 Output Total 800 Balance -510 - Medications Medications: Current Medications Al Hydrox/Mg Hydrox/Simethicone (Maalox Plus 30 Ml) 30 ml PO Q6H PRN PRN Reason: Indigestion / Heartburn Albuterol/Ipratropium (Duoneb 3 Mg/0.5 Mg (3 Ml) Ud) 3 ml INH RQ6 [facility] Last Admin: 02/22/18 08:11 Dose: Not Given Alprazolam (Xanax) 0.25 mg PO BID PRN PRN Reason: Anxiety Stop: 02/28/18 19:37 Last Admin: 02/21/18 20:59 Dose: 0.25 mg Docusate Sodium (Colace) 100 mg PO BID [facility] Last Admin: 02/22/18 10:30 Dose: 100 mg Heparin Sodium (Porcine) (Heparin) 5,000 units SC Q8 [facility] Last Admin: 02/22/18 05:24 Dose: 5,000 units Azithromycin 500 mg/ Sodium (Chloride) 250 mls @ 250 mls/hr IVPB DAILY [facility]; Protocol Last Admin: 02/22/18 10:30 Dose: 250 mls/hr Cefepime HCl (Maxipime Iv 1 Gm Premix) 1 gm in 50 mls @ 100 mls/hr IVPB 0400,1600 [facility]; Protocol Last Admin: 02/22/18 03:06 Dose: 100 mls/hr Pantoprazole Sodium (Protonix Ec Tab) 40 mg PO DAILY [facility] Last Admin: 02/22/18 10:30 Dose: 40 mg Polyethylene Glycol (Miralax) 17 gm PO DAILY [facility] Last Admin: 02/22/18 10:30 Dose: 17 gm Potassium Chloride (Potassium Chloride Oral Soln) 40 meq PO DAILY [facility] Last Admin: 02/22/18 10:29 Dose: 40 meq - Labs Labs: 02/22/18 05:34 02/22/18 05:34 PT 21.9 SECONDS (9.7-12.2) H 02/13/18 18:36 INR 2.0 02/13/18 18:36 APTT 44 SECONDS (21-34) H 02/13/18 18:36 - Constitutional Appears: No Acute Distress, Cachectic, Chronically Ill - Head Exam Head Exam: ATRAUMATIC, NORMOCEPHALIC - Eye Exam Eye Exam: EOMI, Normal appearance - ENT Exam ENT Exam: Mucous Membranes Moist - Neck Exam Neck Exam: Normal Inspection - Respiratory Exam Respiratory Exam: Decreased Breath Sounds. absent: Accessory Muscle Use, Respiratory Distress - Cardiovascular Exam Cardiovascular Exam: RRR, +S1, +S2 - GI/Abdominal Exam GI & Abdominal Exam: Soft. absent: Tenderness - Rectal Exam Rectal Exam: Deferred - Extremities Exam Extremities Exam: absent: Calf Tenderness, Pedal Edema - Back Exam Back Exam: absent: CVA tenderness (L), CVA tenderness (R) - Neurological Exam Neurological Exam: Alert, Awake, CN II-XII Intact. absent: Oriented x3 - Psychiatric Exam Psychiatric exam: absent: Agitated - Skin Skin Exam: Rash Assessment and Plan (1) Alzheimer disease Status: Acute (2) Cholelithiases Status: Acute (3) COPD exacerbation Status: Acute (4) Abdominal pain Status: Acute (5) Pneumonia Status: Acute (6) Cachexia Status: Acute (7) Respiratory failure Status: Acute - Assessment and Plan (Free Text) Assessment: RESP STATUS IMPROVING., CONT PULM TOILET., MONITOR O2 SAT. NEB BD., AFEBRILE ON AB. CXR REVIEWED., PROG POOR. DISCUSSED WITH STAFF.
--- NOTE | 2018-02-22 14:26 | CP.PCM.PN ---
Subjective - Date & Time of Evaluation Date of Evaluation: 02/22/18 Time of Evaluation: 14:26 - Subjective Subjective: afebrile, awake, offers no complaints. answers infrequently. Objective - Vital Signs/Intake and Output Vital Signs (last 24 hours): Temp Pulse Resp BP Pulse Ox 97.6 F 95 H 26 H 111/68 99 02/22/18 08:00 02/22/18 08:00 02/22/18 08:00 02/22/18 07:50 02/22/18 08:00 Intake and Output: 02/22/18 02/22/18 06:59 18:59 Intake Total 290 Output Total 800 Balance -510 - Medications Medications: Current Medications Al Hydrox/Mg Hydrox/Simethicone (Maalox Plus 30 Ml) 30 ml PO Q6H PRN PRN Reason: Indigestion / Heartburn Albuterol/Ipratropium (Duoneb 3 Mg/0.5 Mg (3 Ml) Ud) 3 ml INH RQ6 [facility] Last Admin: 02/22/18 13:49 Dose: Not Given Alprazolam (Xanax) 0.25 mg PO BID PRN PRN Reason: Anxiety Stop: 02/28/18 19:37 Last Admin: 02/21/18 20:59 Dose: 0.25 mg Docusate Sodium (Colace) 100 mg PO BID [facility] Last Admin: 02/22/18 10:30 Dose: 100 mg Heparin Sodium (Porcine) (Heparin) 5,000 units SC Q8 [facility] Last Admin: 02/22/18 13:46 Dose: 5,000 units Azithromycin 500 mg/ Sodium (Chloride) 250 mls @ 250 mls/hr IVPB DAILY [facility]; Protocol Last Admin: 02/22/18 10:30 Dose: 250 mls/hr Cefepime HCl (Maxipime Iv 1 Gm Premix) 1 gm in 50 mls @ 100 mls/hr IVPB 0400,1600 [facility]; Protocol Last Admin: 02/22/18 03:06 Dose: 100 mls/hr Pantoprazole Sodium (Protonix Ec Tab) 40 mg PO DAILY [facility] Last Admin: 02/22/18 10:30 Dose: 40 mg Polyethylene Glycol (Miralax) 17 gm PO DAILY [facility] Last Admin: 02/22/18 10:30 Dose: 17 gm Potassium Chloride (Potassium Chloride Oral Soln) 40 meq PO DAILY [facility] Last Admin: 02/22/18 10:29 Dose: 40 meq - Labs Labs: 02/22/18 05:34 02/22/18 05:34 PT 21.9 SECONDS (9.7-12.2) H 02/13/18 18:36 INR 2.0 02/13/18 18:36 APTT 44 SECONDS (21-34) H 02/13/18 18:36 - Constitutional Appears: No Acute Distress, Confused (at times), Cachectic, Chronically Ill - Head Exam Head Exam: NORMAL INSPECTION - Eye Exam Eye Exam: EOMI, PERRL - ENT Exam ENT Exam: Normal Oropharynx - Neck Exam Neck Exam: Normal Inspection - Cardiovascular Exam Cardiovascular Exam: Tachycardia, +S1, +S2 - GI/Abdominal Exam GI & Abdominal Exam: Soft, Normal Bowel Sounds. absent: Distended, Tenderness - Extremities Exam Extremities Exam: Normal Capillary Refill. absent: Calf Tenderness, Pedal Edema - Neurological Exam Neurological Exam: Alert, Awake, CN II-XII Intact, Reflexes Normal - Skin Skin Exam: Normal Color, Warm Assessment and Plan (1) Abdominal pain Assessment & Plan: RESOLVED. PER SURGERY. Status: Acute (2) Pneumonia Assessment & Plan: IMPROVING. ON IV ABX . PULMONARY TOILET. CONTINUE iv CEFEPIME 1 G EVERY 12 HOURLY 02/13/18. CONTINUE iv ZITHROMAX 500 MG ONCE A DAY DAILY 02/13/18. MRSA SCREEN-REPEAT -VE. F/U CXR SATURDAY. ?MISA FOR DECONDITIONING Status: Acute (3) COPD exacerbation Assessment & Plan: RESPIRATORY STATUS IMROVING. CONSIDER PT AT BEDSIDE Status: Acute (4) Cholelithiases Assessment & Plan: STABLE. NO N/V SURGERY CANCELLED . Status: Acute (5) Cachexia Status: Acute (6) Alzheimer disease Status: Acute
--- NOTE | 2018-02-22 15:00 | CP.PCM.PN ---
Subjective - Date & Time of Evaluation Date of Evaluation: 02/22/18 Time of Evaluation: 14:58 - Subjective Subjective: CLINICALLY IMPROVING VS STABLE [facility] SERVICE CANCELLED THE OR PT IS IMPROVING AND DUE TO UNSTABLE RESP. STATUS NA BETTER FOR SHORT TERM REHAB Objective - Vital Signs/Intake and Output Vital Signs (last 24 hours): Temp Pulse Resp BP Pulse Ox 97.6 F 95 H 26 H 111/68 99 02/22/18 08:00 02/22/18 08:00 02/22/18 08:00 02/22/18 07:50 02/22/18 08:00 Intake and Output: 02/22/18 02/22/18 11:59 23:59 Intake Total 290 Output Total 800 Balance -510 - Medications Medications: Current Medications Al Hydrox/Mg Hydrox/Simethicone (Maalox Plus 30 Ml) 30 ml PO Q6H PRN PRN Reason: Indigestion / Heartburn Albuterol/Ipratropium (Duoneb 3 Mg/0.5 Mg (3 Ml) Ud) 3 ml INH RQ6 [facility] Last Admin: 02/22/18 13:49 Dose: Not Given Alprazolam (Xanax) 0.25 mg PO BID PRN PRN Reason: Anxiety Stop: 02/28/18 19:37 Last Admin: 02/21/18 20:59 Dose: 0.25 mg Docusate Sodium (Colace) 100 mg PO BID [facility] Last Admin: 02/22/18 10:30 Dose: 100 mg Heparin Sodium (Porcine) (Heparin) 5,000 units SC Q8 [facility] Last Admin: 02/22/18 13:46 Dose: 5,000 units Azithromycin 500 mg/ Sodium (Chloride) 250 mls @ 250 mls/hr IVPB DAILY [facility]; Protocol Last Admin: 02/22/18 10:30 Dose: 250 mls/hr Cefepime HCl (Maxipime Iv 1 Gm Premix) 1 gm in 50 mls @ 100 mls/hr IVPB 0400,1600 [facility]; Protocol Last Admin: 02/22/18 03:06 Dose: 100 mls/hr Pantoprazole Sodium (Protonix Ec Tab) 40 mg PO DAILY [facility] Last Admin: 02/22/18 10:30 Dose: 40 mg Polyethylene Glycol (Miralax) 17 gm PO DAILY [facility] Last Admin: 02/22/18 10:30 Dose: 17 gm Potassium Chloride (Potassium Chloride Oral Soln) 40 meq PO DAILY [facility] Last Admin: 02/22/18 10:29 Dose: 40 meq - Labs Labs: 02/22/18 05:34 02/22/18 05:34 PT 21.9 SECONDS (9.7-12.2) H 02/13/18 18:36 INR 2.0 02/13/18 18:36 APTT 44 SECONDS (21-34) H 02/13/18 18:36
[2018-02-23] MEDS: Albuterol-Ipratrop 3 mg / 0.5 (3 ml) UD INH SCH ×2 (01:13→07:58)
[2018-02-23] MEDS: Cefepime IV 1 gm in Dextrose 1 GM/50 ML BAG IVPB SCH ×2 (03:05→15:44)
[2018-02-23 05:47] LABS: BASO # 0.1 K/uL (0.0-0.2); BASO % 0.9 % (0.0-2.0); EOS # 0.2 K/uL (0.0-0.7); EOS % 2.4 % (0.0-4.0); HEMOGLOBIN 12.5 g/dL (12.0-18.0); LYMPH # 1.5 K/uL (1.0-4.3); LYMPH % 18.5 % (20.0-40.0); MEAN CELL VOLUME 88.3 fL (80.0-94.0); MEAN CORPUSCULAR HEMOGLOBIN 29.2 pg (27.0-31.0); MEAN CORPUSCULAR HGB CONC 33.1 g/dL (33.0-37.0); MONO # 0.6 K/uL (0.0-0.8); MONO % 7.8 % (0.0-10.0); NEUT # 5.6 K/uL (1.8-7.0); NEUT % 70.4 % (50.0-75.0); RBC 4.26 Mil/uL (4.40-5.90); RED CELL DISTRIBUTION WIDTH 14.4 % (11.5-14.5); WHITE BLOOD COUNT 7.9 K/uL (4.8-10.8)
[2018-02-23 06:06] LABS: ALB/GLOB RATIO 0.7 (1.0-2.1); ALBUMIN 3.1 g/dL (3.5-5.0); ALT/SGPT 12 U/L (21-72); AST/SGOT 20 U/L (17-59); BLOOD UREA NITROGEN 5 mg/dL (9-20); CALCIUM 8.1 mg/dl (8.6-10.4); GFR NON-AFRICAN AMERICAN > 60
[2018-02-23] MEDS: Potassium Chloride 20 mEq/15 ml LIQ UD PO SCH (10:14)
[2018-02-23] MEDS: Azithromycin 500 MG in Sodium Chloride 0.9% 250 ML IVPB SCH (10:18)
[2018-02-23] MEDS: Pantoprazole 40 mg EC Tab PO SCH (10:19)
[2018-02-23] MEDS: POLYETHYLENE GLYCOL 3350 17 GM/Dose PACKET PO SCH (10:19)
--- NOTE | 2018-02-23 13:56 | CP.PCM.PN ---
Subjective - Date & Time of Evaluation Date of Evaluation: 02/23/18 Time of Evaluation: 13:54 - Subjective Subjective: PT AWAKE., NO DISTRESS. ROS; OTHERWISE NEG. Objective - Vital Signs/Intake and Output Vital Signs (last 24 hours): Temp Pulse Resp BP Pulse Ox 98.2 F 108 H 27 H 95/62 L 99 02/23/18 04:00 02/23/18 13:06 02/23/18 13:06 02/23/18 13:06 02/23/18 13:06 Intake and Output: 02/23/18 02/23/18 06:59 18:59 Intake Total 290 Output Total 900 Balance -610 - Medications Medications: Current Medications Al Hydrox/Mg Hydrox/Simethicone (Maalox Plus 30 Ml) 30 ml PO Q6H PRN PRN Reason: Indigestion / Heartburn Alprazolam (Xanax) 0.25 mg PO BID PRN PRN Reason: Anxiety Stop: 02/28/18 19:37 Last Admin: 02/22/18 21:05 Dose: 0.25 mg Docusate Sodium (Colace) 100 mg PO BID [facility] Last Admin: 02/23/18 10:24 Dose: Not Given Heparin Sodium (Porcine) (Heparin) 5,000 units SC Q8 [facility] Last Admin: 02/23/18 13:10 Dose: Not Given Azithromycin 500 mg/ Sodium (Chloride) 250 mls @ 250 mls/hr IVPB DAILY [facility]; Protocol Last Admin: 02/23/18 10:18 Dose: 250 mls/hr Cefepime HCl (Maxipime Iv 1 Gm Premix) 1 gm in 50 mls @ 100 mls/hr IVPB 0400,1600 [facility]; Protocol Last Admin: 02/23/18 03:05 Dose: 100 mls/hr Pantoprazole Sodium (Protonix Ec Tab) 40 mg PO DAILY [facility] Last Admin: 02/23/18 10:19 Dose: 40 mg Polyethylene Glycol (Miralax) 17 gm PO DAILY [facility] Last Admin: 02/23/18 10:19 Dose: 17 gm Potassium Chloride (Potassium Chloride Oral Soln) 40 meq PO DAILY [facility] Last Admin: 02/23/18 10:14 Dose: Not Given - Labs Labs: 02/23/18 05:40 02/23/18 05:40 PT 21.9 SECONDS (9.7-12.2) H 11/29/18 18:36 INR 2.0 02/13/18 18:36 APTT 44 SECONDS (21-34) H 02/13/18 18:36 - Constitutional Appears: No Acute Distress, Cachectic, Chronically Ill - Head Exam Head Exam: ATRAUMATIC, NORMOCEPHALIC - Eye Exam Eye Exam: EOMI, Normal appearance - ENT Exam ENT Exam: Mucous Membranes Dry - Neck Exam Neck Exam: Normal Inspection - Respiratory Exam Respiratory Exam: Decreased Breath Sounds. absent: Accessory Muscle Use, Wheezes, Respiratory Distress - Cardiovascular Exam Cardiovascular Exam: RRR, +S1, +S2 - GI/Abdominal Exam GI & Abdominal Exam: Soft. absent: Tenderness - Rectal Exam Rectal Exam: Deferred - Extremities Exam Extremities Exam: absent: Calf Tenderness, Pedal Edema - Back Exam Back Exam: absent: CVA tenderness (L), CVA tenderness (R) - Neurological Exam Neurological Exam: Alert, Awake. absent: CN II-XII Intact, Oriented x3 - Skin Skin Exam: absent: Rash Assessment and Plan (1) Alzheimer disease Status: Acute (2) Cholelithiases Status: Acute (3) COPD exacerbation Status: Acute (4) Abdominal pain Status: Acute (5) Pneumonia Status: Acute (6) Cachexia Status: Acute (7) Respiratory failure Status: Acute - Assessment and Plan (Free Text) Assessment: RESP STATUS UNLABORED., CONT PULM TOILET., MONITOR O2 SAT ON 3L., CXR REVIEWED., AFEBRILE ON AB. INCREASE OOB. FOR ABD U/S. PROG POOR . DISCUSSED WITH STAFF AT LENGTH.
--- NOTE | 2018-02-23 16:14 | CP.PCM.PN ---
Subjective - Date & Time of Evaluation Date of Evaluation: 02/23/18 Time of Evaluation: 16:14 - Subjective Subjective: CLINICALLY IMPROVING VS STABLE [facility]ICE CANCELLED THE OR PT IS IMPROVING AND DUE TO UNSTABLE RESP. STATUS NA BETTER FOR SHORT TERM REHAB Objective - Vital Signs/Intake and Output Vital Signs (last 24 hours): Temp Pulse Resp BP Pulse Ox 98.2 F 108 H 27 H 95/62 L 99 02/23/18 04:00 02/23/18 13:06 02/23/18 13:06 02/23/18 13:06 02/23/18 13:06 Intake and Output: 02/23/18 02/23/18 11:59 23:59 Intake Total 50 Output Total 900 Balance -850 - Medications Medications: Current Medications Al Hydrox/Mg Hydrox/Simethicone (Maalox Plus 30 Ml) 30 ml PO Q6H PRN PRN Reason: Indigestion / Heartburn Alprazolam (Xanax) 0.25 mg PO BID PRN PRN Reason: Anxiety Stop: 02/28/18 19:37 Last Admin: 02/22/18 21:05 Dose: 0.25 mg Docusate Sodium (Colace) 100 mg PO BID [facility] Last Admin: 02/23/18 10:24 Dose: Not Given Heparin Sodium (Porcine) (Heparin) 5,000 units SC Q8 [facility] Last Admin: 02/23/18 13:10 Dose: Not Given Azithromycin 500 mg/ Sodium (Chloride) 250 mls @ 250 mls/hr IVPB DAILY [facility]; Protocol Last Admin: 02/23/18 10:18 Dose: 250 mls/hr Cefepime HCl (Maxipime Iv 1 Gm Premix) 1 gm in 50 mls @ 100 mls/hr IVPB 0400,1600 [facility]; Protocol Last Admin: 02/23/18 15:44 Dose: 100 mls/hr Pantoprazole Sodium (Protonix Ec Tab) 40 mg PO DAILY [facility] Last Admin: 02/23/18 10:19 Dose: 40 mg Polyethylene Glycol (Miralax) 17 gm PO DAILY [facility] Last Admin: 02/23/18 10:19 Dose: 17 gm Potassium Chloride (Potassium Chloride Oral Soln) 40 meq PO DAILY [facility] Last Admin: 02/23/18 10:14 Dose: Not Given - Labs Labs: 02/23/18 05:40 02/23/18 05:40 PT 21.9 SECONDS (9.7-12.2) H 02/13/18 18:36 INR 2.0 02/13/18 18:36 APTT 44 SECONDS (21-34) H 02/13/18 18:36
[2018-02-24] MEDS: Cefepime IV 1 gm in Dextrose 1 GM/50 ML BAG IVPB SCH ×2 (04:30→17:00)
[2018-02-24 06:32] LABS: BASO # 0.1 K/uL (0.0-0.2); BASO % 0.9 % (0.0-2.0); EOS # 0.2 K/uL (0.0-0.7); EOS % 2.4 % (0.0-4.0); HEMOGLOBIN 12.8 g/dL (12.0-18.0); LYMPH # 1.1 K/uL (1.0-4.3); LYMPH % 11.5 % (20.0-40.0); MEAN CELL VOLUME 88.5 fL (80.0-94.0); MEAN CORPUSCULAR HEMOGLOBIN 29.6 pg (27.0-31.0); MEAN CORPUSCULAR HGB CONC 33.5 g/dL (33.0-37.0); MEAN PLATELET VOLUME 7.1 fL (7.2-11.7); MONO # 0.7 K/uL (0.0-0.8); MONO % 6.8 % (0.0-10.0); NEUT # 7.7 K/uL (1.8-7.0); NEUT % 78.4 % (50.0-75.0); RBC 4.31 Mil/uL (4.40-5.90); RED CELL DISTRIBUTION WIDTH 14.4 % (11.5-14.5); WHITE BLOOD COUNT 9.9 K/uL (4.8-10.8)
[2018-02-24 06:53] LABS: ALB/GLOB RATIO 0.7 (1.0-2.1); ALBUMIN 3.1 g/dL (3.5-5.0); ALT/SGPT 15 U/L (21-72); AST/SGOT 23 U/L (17-59); BLOOD UREA NITROGEN 5 mg/dL (9-20); CALCIUM 8.2 mg/dl (8.6-10.4); GFR NON-AFRICAN AMERICAN > 60
--- NOTE | 2018-02-24 09:11 | CP.PCM.PN ---
Subjective - Date & Time of Evaluation Date of Evaluation: 02/24/18 Time of Evaluation: 09:08 - Subjective Subjective: PT AWAKE. OFF O2. NO DISTRESS. ROS ; OTHERWISE NEG Objective - Vital Signs/Intake and Output Vital Signs (last 24 hours): Temp Pulse Resp BP Pulse Ox 97.4 F L 102 H 44 H 95/65 L 93 L 02/24/18 04:00 02/24/18 07:00 02/24/18 07:00 02/24/18 06:30 02/24/18 07:00 Intake and Output: 02/24/18 02/24/18 06:59 18:59 Intake Total 360 Output Total 120 Balance 240 - Medications Medications: Current Medications Al Hydrox/Mg Hydrox/Simethicone (Maalox Plus 30 Ml) 30 ml PO Q6H PRN PRN Reason: Indigestion / Heartburn Alprazolam (Xanax) 0.25 mg PO BID PRN PRN Reason: Anxiety Stop: 02/28/18 19:37 Last Admin: 02/22/18 21:05 Dose: 0.25 mg Docusate Sodium (Colace) 100 mg PO BID [facility] Last Admin: 02/23/18 18:30 Dose: Not Given Heparin Sodium (Porcine) (Heparin) 5,000 units SC Q8 [facility] Last Admin: 02/24/18 05:44 Dose: 5,000 units Azithromycin 500 mg/ Sodium (Chloride) 250 mls @ 250 mls/hr IVPB DAILY [facility]; Protocol Last Admin: 02/23/18 10:18 Dose: 250 mls/hr Cefepime HCl (Maxipime Iv 1 Gm Premix) 1 gm in 50 mls @ 100 mls/hr IVPB 0400,1600 [facility]; Protocol Last Admin: 02/24/18 04:30 Dose: 100 mls/hr Pantoprazole Sodium (Protonix Ec Tab) 40 mg PO DAILY [facility] Last Admin: 02/23/18 10:19 Dose: 40 mg Polyethylene Glycol (Miralax) 17 gm PO DAILY [facility] Last Admin: 02/23/18 10:19 Dose: 17 gm Potassium Chloride (Potassium Chloride Oral Soln) 40 meq PO DAILY [facility] Last Admin: 02/23/18 10:14 Dose: Not Given - Labs Labs: 02/24/18 06:24 02/24/18 06:24 PT 21.9 SECONDS (9.7-12.2) H 02/13/18 18:36 INR 2.0 02/13/18 18:36 APTT 44 SECONDS (21-34) H 02/13/18 18:36 - Constitutional Appears: No Acute Distress, Chronically Ill - Head Exam Head Exam: ATRAUMATIC, NORMOCEPHALIC - Eye Exam Eye Exam: EOMI, Normal appearance - ENT Exam ENT Exam: Mucous Membranes Moist - Neck Exam Neck Exam: Normal Inspection - Respiratory Exam Respiratory Exam: Decreased Breath Sounds. absent: Accessory Muscle Use, Wheezes, Respiratory Distress - Cardiovascular Exam Cardiovascular Exam: RRR, +S1, +S2 - GI/Abdominal Exam GI & Abdominal Exam: Soft. absent: Tenderness - Rectal Exam Rectal Exam: Deferred - Extremities Exam Extremities Exam: absent: Calf Tenderness, Pedal Edema - Back Exam Back Exam: absent: CVA tenderness (L), CVA tenderness (R) - Neurological Exam Neurological Exam: Alert, Awake, CN II-XII Intact. absent: Oriented x3 - Psychiatric Exam Psychiatric exam: Normal Affect - Skin Skin Exam: absent: Rash Assessment and Plan (1) Alzheimer disease Status: Acute (2) Cholelithiases Status: Acute (3) COPD exacerbation Status: Acute (4) Abdominal pain Status: Acute (5) Pneumonia Status: Acute (6) Cachexia Status: Acute (7) Respiratory failure Status: Acute - Assessment and Plan (Free Text) Assessment: RESP STATUS IMPROVING, O2 SAT 93% ON ROOM AIR NOW., CONT AGGRESSIVE PULM TOILET.,NEB BD., MONITOR O2 SAT. CXR REVIEWED. AFEBRILE ON AB. INCREASE OOB., FOR POSS REHAB. PROG POOR. DISCUSSED WITH STAFF.
[2018-02-24] MEDS: Pantoprazole 40 mg EC Tab PO SCH (09:12)
[2018-02-24] MEDS: POLYETHYLENE GLYCOL 3350 17 GM/Dose PACKET PO SCH (09:13)
[2018-02-24] MEDS: Potassium Chloride 20 mEq/15 ml LIQ UD PO SCH (09:13)
[2018-02-24] MEDS: Azithromycin 500 MG in Sodium Chloride 0.9% 250 ML IVPB SCH (09:14)
--- NOTE | 2018-02-24 10:48 | CP.PCM.PN ---
Subjective - Date & Time of Evaluation Date of Evaluation: 02/24/18 Time of Evaluation: 10:47 - Subjective Subjective: on floor lap phill postponed labs noted wants to go home, says he feels fine, "just need my glasses" upset at answering further questions Objective - Vital Signs/Intake and Output Vital Signs (last 24 hours): Temp Pulse Resp BP Pulse Ox 97.7 F 106 H 22 106/60 96 02/24/18 08:00 02/24/18 10:00 02/24/18 10:00 02/24/18 10:00 02/24/18 10:00 Intake and Output: 02/24/18 02/24/18 06:59 18:59 Intake Total 360 450 Output Total 120 250 Balance 240 200 - Medications Medications: Current Medications Al Hydrox/Mg Hydrox/Simethicone (Maalox Plus 30 Ml) 30 ml PO Q6H PRN PRN Reason: Indigestion / Heartburn Alprazolam (Xanax) 0.25 mg PO BID PRN PRN Reason: Anxiety Stop: 02/28/18 19:37 Last Admin: 02/22/18 21:05 Dose: 0.25 mg Docusate Sodium (Colace) 100 mg PO BID [facility] Last Admin: 02/24/18 09:13 Dose: Not Given Heparin Sodium (Porcine) (Heparin) 5,000 units SC Q8 [facility] Last Admin: 02/24/18 05:44 Dose: 5,000 units Azithromycin 500 mg/ Sodium (Chloride) 250 mls @ 250 mls/hr IVPB DAILY [facility]; Protocol Last Admin: 02/24/18 09:14 Dose: 250 mls/hr Cefepime HCl (Maxipime Iv 1 Gm Premix) 1 gm in 50 mls @ 100 mls/hr IVPB 0400,1600 [facility]; Protocol Last Admin: 02/24/18 04:30 Dose: 100 mls/hr Pantoprazole Sodium (Protonix Ec Tab) 40 mg PO DAILY [facility] Last Admin: 02/24/18 09:12 Dose: 40 mg Polyethylene Glycol (Miralax) 17 gm PO DAILY [facility] Last Admin: 02/24/18 09:13 Dose: Not Given Potassium Chloride (Potassium Chloride Oral Soln) 40 meq PO DAILY [facility] Last Admin: 02/24/18 09:13 Dose: Not Given - Labs Labs: 02/24/18 06:24 02/24/18 06:24 PT 21.9 SECONDS (9.7-12.2) H 02/13/18 18:36 INR 2.0 02/13/18 18:36 APTT 44 SECONDS (21-34) H 02/13/18 18:36 - Constitutional Appears: Non-toxic, No Acute Distress, Chronically Ill - Head Exam Head Exam: NORMAL INSPECTION, NORMOCEPHALIC - Eye Exam Eye Exam: Normal appearance, PERRL - ENT Exam ENT Exam: Mucous Membranes Dry - Neck Exam Neck Exam: Full ROM, Normal Inspection - Respiratory Exam Respiratory Exam: Clear to Ausculation Bilateral, NORMAL BREATHING PATTERN - Cardiovascular Exam Cardiovascular Exam: REGULAR RHYTHM, RRR - GI/Abdominal Exam GI & Abdominal Exam: Distended, Soft - Extremities Exam Extremities Exam: Full ROM, Normal Inspection - Neurological Exam Neurological Exam: Alert, Awake, Oriented x3 - Psychiatric Exam Psychiatric exam: Agitated - Skin Skin Exam: Dry, Intact Assessment and Plan (1) Abdominal pain Status: Acute (2) Cholecystitis Status: Acute (3) Hyponatremia Status: Acute - Assessment and Plan (Free Text) Assessment: stable na, on liquid diet recommend fluid restriction 1L/day dc k supplement stable chems, check daily
--- NOTE | 2018-02-24 14:08 | CP.PCM.PN ---
Subjective - Date & Time of Evaluation Date of Evaluation: 02/24/18 Time of Evaluation: 14:08 - Subjective Subjective: afebrile, awake, IN NO RESP. DISTRESS. dENIES ANY ABDOMINAL PAIN, nAUSEA VOMITING. SURGERY CANCELLED NOTED Objective - Vital Signs/Intake and Output Vital Signs (last 24 hours): Temp Pulse Resp BP Pulse Ox 97.7 F 106 H 22 106/60 96 02/24/18 08:00 02/24/18 10:00 02/24/18 10:00 02/24/18 10:00 02/24/18 10:00 Intake and Output: 02/24/18 02/24/18 06:59 18:59 Intake Total 360 450 Output Total 120 250 Balance 240 200 - Medications Medications: Current Medications Al Hydrox/Mg Hydrox/Simethicone (Maalox Plus 30 Ml) 30 ml PO Q6H PRN PRN Reason: Indigestion / Heartburn Alprazolam (Xanax) 0.25 mg PO BID PRN PRN Reason: Anxiety Stop: 02/28/18 19:37 Last Admin: 02/22/18 21:05 Dose: 0.25 mg Docusate Sodium (Colace) 100 mg PO BID [facility] Last Admin: 02/24/18 09:13 Dose: Not Given Heparin Sodium (Porcine) (Heparin) 5,000 units SC Q8 [facility] Last Admin: 02/24/18 13:57 Dose: 5,000 units Azithromycin 500 mg/ Sodium (Chloride) 250 mls @ 250 mls/hr IVPB DAILY [facility]; Protocol Last Admin: 02/24/18 09:14 Dose: 250 mls/hr Cefepime HCl (Maxipime Iv 1 Gm Premix) 1 gm in 50 mls @ 100 mls/hr IVPB 0400,1600 [facility]; Protocol Last Admin: 02/24/18 04:30 Dose: 100 mls/hr Pantoprazole Sodium (Protonix Ec Tab) 40 mg PO DAILY [facility] Last Admin: 02/24/18 09:12 Dose: 40 mg Polyethylene Glycol (Miralax) 17 gm PO DAILY [facility] Last Admin: 02/24/18 09:13 Dose: Not Given - Labs Labs: 02/24/18 06:24 02/24/18 06:24 PT 21.9 SECONDS (9.7-12.2) H 02/13/18 18:36 INR 2.0 11/29/18 18:36 APTT 44 SECONDS (21-34) H 02/13/18 18:36 - Constitutional Appears: No Acute Distress, Cachectic, Chronically Ill - Head Exam Head Exam: NORMAL INSPECTION - Eye Exam Eye Exam: EOMI, Normal appearance, PERRL - ENT Exam ENT Exam: Normal Oropharynx - Neck Exam Neck Exam: Normal Inspection - Respiratory Exam Respiratory Exam: Decreased Breath Sounds, NORMAL BREATHING PATTERN - Cardiovascular Exam Cardiovascular Exam: REGULAR RHYTHM, +S1, +S2 - GI/Abdominal Exam GI & Abdominal Exam: Soft, Normal Bowel Sounds. absent: Distended, Tenderness - Extremities Exam Extremities Exam: Normal Capillary Refill. absent: Calf Tenderness, Pedal Edema - Neurological Exam Neurological Exam: Alert, Awake, CN II-XII Intact - Psychiatric Exam Psychiatric exam: Normal Mood - Skin Skin Exam: Normal Color, Warm Assessment and Plan (1) Abdominal pain Status: Acute (2) Pneumonia Assessment & Plan: IMPROVING. ON IV ABX . PULMONARY TOILET. CONTINUE iv CEFEPIME 1 G EVERY 12 HOURLY 02/13/18.-12 DAYS CONTINUE iv ZITHROMAX 500 MG ONCE A DAY DAILY 02/13/18.-12 DAYS MYCOPLASMA IGG +VE -PROBABLE MYCOPLASMA PNEUMONIA. MRSA SCREEN-REPEAT -VE. F/U CXR AM ?MISA FOR DECONDITIONING Status: Acute (3) COPD exacerbation Assessment & Plan: RESPIRATORY STATUS IMROVING. CONSIDER PT AT BEDSIDE Status: Acute (4) Cholelithiases Assessment & Plan: ASYMPOTOMATIC . SURGERY CANCELLED PT IMPROVED ON ABX . Status: Acute (5) Cachexia Status: Acute (6) Alzheimer disease Status: Acute
--- NOTE | 2018-02-24 14:19 | CP.PCM.PN ---
Subjective - Date & Time of Evaluation Date of Evaluation: 02/24/18 Time of Evaluation: 14:18 - Subjective Subjective: [facility] OR PT IS IMPROVING AND DUE TO UNSTABLE RESP. STATUS NA BETTER FOR SHORT TERM REHAB Objective - Vital Signs/Intake and Output Vital Signs (last 24 hours): Temp Pulse Resp BP Pulse Ox 97.7 F 106 H 22 106/60 96 02/24/18 08:00 02/24/18 10:00 02/24/18 10:00 02/24/18 10:00 02/24/18 10:00 Intake and Output: 02/24/18 02/24/18 11:59 23:59 Intake Total 810 Output Total 370 Balance 440 - Medications Medications: Current Medications Al Hydrox/Mg Hydrox/Simethicone (Maalox Plus 30 Ml) 30 ml PO Q6H PRN PRN Reason: Indigestion / Heartburn Alprazolam (Xanax) 0.25 mg PO BID PRN PRN Reason: Anxiety Stop: 02/28/18 19:37 Last Admin: 02/22/18 21:05 Dose: 0.25 mg Docusate Sodium (Colace) 100 mg PO BID [facility] Last Admin: 02/24/18 09:13 Dose: Not Given Heparin Sodium (Porcine) (Heparin) 5,000 units SC Q8 [facility] Last Admin: 02/24/18 13:57 Dose: 5,000 units Azithromycin 500 mg/ Sodium (Chloride) 250 mls @ 250 mls/hr IVPB DAILY [facility]; Protocol Last Admin: 02/24/18 09:14 Dose: 250 mls/hr Cefepime HCl (Maxipime Iv 1 Gm Premix) 1 gm in 50 mls @ 100 mls/hr IVPB 0400,1600 [facility]; Protocol Last Admin: 02/24/18 04:30 Dose: 100 mls/hr Pantoprazole Sodium (Protonix Ec Tab) 40 mg PO DAILY [facility] Last Admin: 02/24/18 09:12 Dose: 40 mg Polyethylene Glycol (Miralax) 17 gm PO DAILY [facility] Last Admin: 02/24/18 09:13 Dose: Not Given - Labs Labs: 02/24/18 06:24 02/24/18 06:24 PT 21.9 SECONDS (9.7-12.2) H 02/13/18 18:36 INR 2.0 11/29/18 18:36 APTT 44 SECONDS (21-34) H 02/13/18 18:36
[2018-02-24 18:40] LABS: TOTAL PSA 0.4 ng/mL (< or = 4.0)
[2018-02-25] MEDS: Cefepime IV 1 gm in Dextrose 1 GM/50 ML BAG IVPB SCH ×2 (04:45→17:23)
--- NOTE | 2018-02-25 10:28 | CP.PCM.PN ---
Subjective - Date & Time of Evaluation Date of Evaluation: 02/25/18 Time of Evaluation: 10:26 - Subjective Subjective: PT ALERT, ON PO LIQ. NO DISTRESS. NO SOB. ROS; OTHERWISE NEG. Objective - Vital Signs/Intake and Output Vital Signs (last 24 hours): Temp Pulse Resp BP Pulse Ox 97.8 F 108 H 18 109/65 96 02/25/18 07:00 02/25/18 08:15 02/25/18 07:00 02/25/18 07:00 02/25/18 07:00 Intake and Output: 02/25/18 02/25/18 06:59 18:59 Intake Total 390 Output Total 450 Balance -60 - Medications Medications: Current Medications Al Hydrox/Mg Hydrox/Simethicone (Maalox Plus 30 Ml) 30 ml PO Q6H PRN PRN Reason: Indigestion / Heartburn Alprazolam (Xanax) 0.25 mg PO BID PRN PRN Reason: Anxiety Stop: 02/28/18 19:37 Last Admin: 02/22/18 21:05 Dose: 0.25 mg Docusate Sodium (Colace) 100 mg PO BID [facility] Last Admin: 02/24/18 18:28 Dose: Not Given Heparin Sodium (Porcine) (Heparin) 5,000 units SC Q8 [facility] Last Admin: 02/25/18 05:40 Dose: 5,000 units Azithromycin 500 mg/ Sodium (Chloride) 250 mls @ 250 mls/hr IVPB DAILY [facility]; Protocol Last Admin: 02/24/18 09:14 Dose: 250 mls/hr Cefepime HCl (Maxipime Iv 1 Gm Premix) 1 gm in 50 mls @ 100 mls/hr IVPB 0400,1600 [facility]; Protocol Last Admin: 02/25/18 04:45 Dose: 100 mls/hr Pantoprazole Sodium (Protonix Ec Tab) 40 mg PO DAILY [facility] Last Admin: 02/24/18 09:12 Dose: 40 mg Polyethylene Glycol (Miralax) 17 gm PO DAILY [facility] Last Admin: 02/24/18 09:13 Dose: Not Given - Labs Labs: 02/24/18 06:24 02/24/18 06:24 PT 21.9 SECONDS (9.7-12.2) H 02/13/18 18:36 INR 2.0 02/13/18 18:36 APTT 44 SECONDS (21-34) H 02/13/18 18:36 - Constitutional Appears: Non-toxic, No Acute Distress, Cachectic, Chronically Ill - Head Exam Head Exam: ATRAUMATIC, NORMOCEPHALIC - Eye Exam Eye Exam: EOMI, Normal appearance - ENT Exam ENT Exam: Mucous Membranes Moist - Neck Exam Neck Exam: Normal Inspection - Respiratory Exam Respiratory Exam: Decreased Breath Sounds. absent: Accessory Muscle Use, Wheezes, Respiratory Distress - Cardiovascular Exam Cardiovascular Exam: RRR, +S1, +S2 - GI/Abdominal Exam GI & Abdominal Exam: Soft. absent: Tenderness - Rectal Exam Rectal Exam: Deferred - Extremities Exam Extremities Exam: absent: Calf Tenderness, Pedal Edema - Back Exam Back Exam: absent: CVA tenderness (L), CVA tenderness (R) - Neurological Exam Neurological Exam: Alert, Awake, CN II-XII Intact. absent: Oriented x3 - Psychiatric Exam Psychiatric exam: Normal Affect - Skin Skin Exam: absent: Rash Assessment and Plan (1) Alzheimer disease Status: Acute (2) Cholelithiases Status: Acute (3) COPD exacerbation Status: Acute (4) Abdominal pain Status: Acute (5) Pneumonia Status: Acute (6) Cachexia Status: Acute (7) Respiratory failure Status: Acute - Assessment and Plan (Free Text) Assessment: RESP STATUS COMFORTABLE., CONT PULM TOILET., NEB BD., MONITOR O2 SAT. CXR REVIEWED, F/U REPEAT. CONT AB PER ID., PO DIET PER GI. INCREASE OOB. FOR PT. PROG POOR. DISCUSSED WITH STAFF AT LENGTH.
[2018-02-25] MEDS: Azithromycin 500 MG in Sodium Chloride 0.9% 250 ML IVPB SCH (10:30)
[2018-02-25] MEDS: POLYETHYLENE GLYCOL 3350 17 GM/Dose PACKET PO SCH (10:30)
[2018-02-25] MEDS: Pantoprazole 40 mg EC Tab PO SCH (10:30)
--- NOTE | 2018-02-25 13:56 | CP.PCM.PN ---
Subjective - Date & Time of Evaluation Date of Evaluation: 02/25/18 Time of Evaluation: 13:54 - Subjective Subjective: Patient has no specific complaints. No abdominal pain nausea vomiting. Occasional shortness of breath with desaturation. Vital signs are stable afebrile. Physical findings. Alert awake in no distress. Lungs shows poor air entry with rhonchi Heart S1-S2 normal. Abdomen is soft nontender. Extremities are normal Plan Cholecystectomy has been canceled as patient is clinically improving and patient is also a risk for surgery because of desaturation. Discussed with the family patient for short-term rehab. Objective - Vital Signs/Intake and Output Vital Signs (last 24 hours): Temp Pulse Resp BP Pulse Ox 97.8 F 108 H 18 109/65 96 02/25/18 07:00 02/25/18 08:15 02/25/18 07:00 02/25/18 07:00 02/25/18 07:00 Intake and Output: 02/25/18 02/25/18 11:59 23:59 Intake Total 290 Output Total 450 Balance -160 - Medications Medications: Current Medications Al Hydrox/Mg Hydrox/Simethicone (Maalox Plus 30 Ml) 30 ml PO Q6H PRN PRN Reason: Indigestion / Heartburn Alprazolam (Xanax) 0.25 mg PO BID PRN PRN Reason: Anxiety Stop: 02/28/18 19:37 Last Admin: 02/22/18 21:05 Dose: 0.25 mg Docusate Sodium (Colace) 100 mg PO BID [facility] Last Admin: 02/25/18 10:30 Dose: Not Given Heparin Sodium (Porcine) (Heparin) 5,000 units SC Q8 [facility] Last Admin: 02/25/18 05:40 Dose: 5,000 units Azithromycin 500 mg/ Sodium (Chloride) 250 mls @ 250 mls/hr IVPB DAILY [facility]; Protocol Last Admin: 02/25/18 10:30 Dose: 250 mls/hr Cefepime HCl (Maxipime Iv 1 Gm Premix) 1 gm in 50 mls @ 100 mls/hr IVPB 0400,1600 [facility]; Protocol Last Admin: 02/25/18 04:45 Dose: 100 mls/hr Pantoprazole Sodium (Protonix Ec Tab) 40 mg PO DAILY [facility] Last Admin: 02/25/18 10:30 Dose: Not Given Polyethylene Glycol (Miralax) 17 gm PO DAILY [facility] Last Admin: 02/25/18 10:30 Dose: Not Given - Labs Labs: 02/24/18 06:24 02/24/18 06:24 PT 21.9 SECONDS (9.7-12.2) H 02/13/18 18:36 INR 2.0 02/13/18 18:36 APTT 44 SECONDS (21-34) H 02/13/18 18:36
--- NOTE | 2018-02-25 15:35 | RAD ---
Date of service: 02/25/2018 HISTORY: PNEUMONIA COMPARISON: 02/13/2018 FINDINGS: LUNGS: The coalescent interstitial lesser alveolar type opacities in the mid left lung zone is similar. The right infrahilar linear discoid atelectasis and/or scarring is similar. The prior asymmetrically elevated right hemidiaphragm appears less now than before. Right superolateral pleural thickening-as before. PLEURA: No significant pleural effusion identified, no pneumothorax apparent. CARDIOVASCULAR: Trauma, fracture suspected Probable minimal cardiomegaly. Concomitant mild pulmonary venous congestion along with the abnormal interstitial lung markings is possible. OSSEOUS STRUCTURES: Bilateral shoulder orthopedic hardware present. Generalized osteopenia, thoracic spondylosis. VISUALIZED UPPER ABDOMEN: Normal. OTHER FINDINGS: None. IMPRESSION: The prior left mid lung zone coalescent interstitial and lesser airspace opacity pathology is similar. The right medial lower lobe coalescent linear opacities of probably relating to fibrosis and/or scarring with or without concomitant bronchiectasis here are similar in appearance Background interstitial lung disease inferred. Right superolateral pleural thickening-similar.
--- NOTE | 2018-02-25 20:34 | CP.PCM.PN ---
Subjective - Date & Time of Evaluation Date of Evaluation: 02/25/18 Time of Evaluation: 20:34 - Subjective Subjective: afebrile, awake,NO SPECIFIC COMPLAINTS IN NO RESP. DISTRESS. DENIES ANY ABDOMINAL PAIN, NAUSEA VOMITING. SURGERY CANCELLED NOTED LABS; CXR 02/25/18--Left mid lung zone coalescent interstitial/lesser airspace opacity pathology is similar. Right mid lower lobe coalescent linear opacities ? Fibrosis or scarring with or without on concomitant bronchiectasis. Background interstitial lung disease Objective - Vital Signs/Intake and Output Vital Signs (last 24 hours): Temp Pulse Resp BP Pulse Ox 98.5 F 105 H 18 112/73 96 02/25/18 15:00 02/25/18 15:00 02/25/18 15:00 02/25/18 15:00 02/25/18 15:00 Intake and Output: 02/25/18 02/26/18 18:59 06:59 Intake Total 750 Output Total 500 Balance 250 - Medications Medications: Current Medications Al Hydrox/Mg Hydrox/Simethicone (Maalox Plus 30 Ml) 30 ml PO Q6H PRN PRN Reason: Indigestion / Heartburn Alprazolam (Xanax) 0.25 mg PO BID PRN PRN Reason: Anxiety Stop: 02/28/18 19:37 Last Admin: 02/22/18 21:05 Dose: 0.25 mg Docusate Sodium (Colace) 100 mg PO BID [facility] Last Admin: 02/25/18 17:27 Dose: Not Given Heparin Sodium (Porcine) (Heparin) 5,000 units SC Q8 [facility] Last Admin: 02/25/18 14:02 Dose: Not Given Azithromycin 500 mg/ Sodium (Chloride) 250 mls @ 250 mls/hr IVPB DAILY [facility]; Protocol Last Admin: 02/25/18 10:30 Dose: 250 mls/hr Cefepime HCl (Maxipime Iv 1 Gm Premix) 1 gm in 50 mls @ 100 mls/hr IVPB 0400,1600 [facility]; Protocol Last Admin: 02/25/18 17:23 Dose: 100 mls/hr Pantoprazole Sodium (Protonix Ec Tab) 40 mg PO DAILY [facility] Last Admin: 02/25/18 10:30 Dose: Not Given Polyethylene Glycol (Miralax) 17 gm PO DAILY [facility] Last Admin: 02/25/18 10:30 Dose: Not Given - Labs Labs: 02/24/18 06:24 02/24/18 06:24 PT 21.9 SECONDS (9.7-12.2) H 02/13/18 18:36 INR 2.0 02/13/18 18:36 APTT 44 SECONDS (21-34) H 02/13/18 18:36 - Constitutional Appears: No Acute Distress, Cachectic, Chronically Ill - Head Exam Head Exam: NORMAL INSPECTION - Eye Exam Eye Exam: EOMI, PERRL - ENT Exam ENT Exam: Normal Oropharynx - Neck Exam Neck Exam: Normal Inspection - Respiratory Exam Respiratory Exam: Decreased Breath Sounds, Rhonchi (FEW SCATTERED RHONCHI B/L L > RT SIDE.) - GI/Abdominal Exam GI & Abdominal Exam: Soft, Normal Bowel Sounds. absent: Tenderness - Neurological Exam Neurological Exam: Alert, Awake, CN II-XII Intact - Psychiatric Exam Psychiatric exam: Normal Mood - Skin Skin Exam: Normal Color, Warm Assessment and Plan (1) Abdominal pain Assessment & Plan: resolved. Surgery canceled. Patient tolerating soft diet Status: Acute (2) Pneumonia Assessment & Plan: ON IV ABX . PULMONARY TOILET. CONTINUE iv CEFEPIME 1 G EVERY 12 HOURLY 02/13/18.-13 DAYS CONTINUE iv ZITHROMAX 500 MG ONCE A DAY DAILY 02/13/18.-13 DAYS MYCOPLASMA IGG +VE -PROBABLE MYCOPLASMA PNEUMONIA. CONTINUE iv ANTIBIOTICS FOR ONE MORE WEEK.TILL 03/05/18 MRSA SCREEN-REPEAT -VE. TRANSFER to subacute rehabilitation WHEN BED AVAILABLE. CASE DISCUSSED WITH pmd AND STAFF. Status: Acute (3) COPD exacerbation Assessment & Plan: as per pulmonary. Status: Acute (4) Cholelithiases Assessment & Plan: PATIENT PRESENTLY ASYMPTOMATIC. SURGERY CANCELED IN VIEW OF HIS RESPIRATORY INSUFFICIENCY/AND POOR MEDICAL CONDITION. Status: Acute (5) Cachexia Status: Acute (6) Alzheimer disease Status: Acute
[2018-02-26] MEDS: Cefepime IV 1 gm in Dextrose 1 GM/50 ML BAG IVPB SCH ×2 (03:34→17:51)
--- NOTE | 2018-02-26 10:07 | CP.PCM.PN ---
Subjective - Date & Time of Evaluation Date of Evaluation: 02/26/18 Time of Evaluation: 10:05 - Subjective Subjective: PT ALERT, NO SOB AT REST. ROS; OTHERWISE NEG Objective - Vital Signs/Intake and Output Vital Signs (last 24 hours): Temp Pulse Resp BP Pulse Ox 98.3 F 111 H 20 103/62 93 L 02/26/18 07:20 02/26/18 07:20 02/26/18 07:20 02/26/18 07:20 02/26/18 07:20 - Medications Medications: Current Medications Al Hydrox/Mg Hydrox/Simethicone (Maalox Plus 30 Ml) 30 ml PO Q6H PRN PRN Reason: Indigestion / Heartburn Alprazolam (Xanax) 0.25 mg PO BID PRN PRN Reason: Anxiety Stop: 02/28/18 19:37 Last Admin: 02/22/18 21:05 Dose: 0.25 mg Docusate Sodium (Colace) 100 mg PO BID [facility] Last Admin: 02/25/18 17:27 Dose: Not Given Heparin Sodium (Porcine) (Heparin) 5,000 units SC Q8 [facility] Last Admin: 02/26/18 05:54 Dose: 5,000 units Azithromycin 500 mg/ Sodium (Chloride) 250 mls @ 250 mls/hr IVPB DAILY [facility]; Protocol Last Admin: 02/25/18 10:30 Dose: 250 mls/hr Cefepime HCl (Maxipime Iv 1 Gm Premix) 1 gm in 50 mls @ 100 mls/hr IVPB 0400,1600 [facility]; Protocol Last Admin: 02/26/18 03:34 Dose: 100 mls/hr Pantoprazole Sodium (Protonix Ec Tab) 40 mg PO DAILY [facility] Last Admin: 02/25/18 10:30 Dose: Not Given Polyethylene Glycol (Miralax) 17 gm PO DAILY [facility] Last Admin: 02/25/18 10:30 Dose: Not Given - Labs Labs: 02/24/18 06:24 02/24/18 06:24 PT 21.9 SECONDS (9.7-12.2) H 02/13/18 18:36 INR 2.0 02/13/18 18:36 APTT 44 SECONDS (21-34) H 02/13/18 18:36 - Constitutional Appears: No Acute Distress, Cachectic, Chronically Ill - Head Exam Head Exam: ATRAUMATIC, NORMOCEPHALIC - Eye Exam Eye Exam: EOMI, Normal appearance - ENT Exam ENT Exam: Mucous Membranes Moist - Neck Exam Neck Exam: Normal Inspection - Respiratory Exam Respiratory Exam: Decreased Breath Sounds. absent: Wheezes, Respiratory Distress - Cardiovascular Exam Cardiovascular Exam: RRR, +S1, +S2 - Rectal Exam Rectal Exam: Deferred - Extremities Exam Extremities Exam: absent: Calf Tenderness, Pedal Edema - Back Exam Back Exam: absent: CVA tenderness (L), CVA tenderness (R) - Neurological Exam Neurological Exam: Alert, Awake, CN II-XII Intact. absent: Oriented x3 - Psychiatric Exam Psychiatric exam: Normal Mood - Skin Skin Exam: absent: Rash Assessment and Plan (1) Alzheimer disease Status: Acute (2) Cholelithiases Status: Acute (3) COPD exacerbation Status: Acute (4) Abdominal pain Status: Acute (5) Pneumonia Status: Acute (6) Cachexia Status: Acute (7) Respiratory failure Status: Acute - Assessment and Plan (Free Text) Assessment: RESP STATUS NO SIG CHANGE., CONT PULM TOILET., NEB BD., MONITOR O2 SAT. CXR REVIEWED. AFEBRILE ON AB +MYCOPLASMA PNA. PO DIET PER SURG. INCREASE OOB., FOR REHAB. PROG POOR. DISCUSSED WITH STAFF.
[2018-02-26] MEDS: Pantoprazole 40 mg EC Tab PO SCH ×2 (11:38→11:42)
[2018-02-26] MEDS: Azithromycin 500 MG in Sodium Chloride 0.9% 250 ML IVPB SCH (11:38)
[2018-02-26] MEDS: POLYETHYLENE GLYCOL 3350 17 GM/Dose PACKET PO SCH (11:39)
--- NOTE | 2018-02-26 14:01 | CP.PCM.PN ---
Subjective - Date & Time of Evaluation Date of Evaluation: 02/26/18 Time of Evaluation: 14:01 - Subjective Subjective: AFEBRILE, C/O ABDOMINAL PAIN TODAY. NO SOB OR CHEST PAIN . LABS rEVIEWED. PLAN; CHECK LIMITED ABDOMINAL ULTRASOUND TO EVALUATE FOR CHOLECYSTITIS.. CONTINUE iv ANTIBIOTICS PER RN PATIENT NOT TAKING ORAL MEDICATIONS. IF ULTRASOUND NEGATIVE, AND NO MORE ABDOMINAL PAINS , WILL SWITCH TO BY MOUTH ANTIBIOTICS. PATIENT REFUSING REHABILITATION. Objective - Vital Signs/Intake and Output Vital Signs (last 24 hours): Temp Pulse Resp BP Pulse Ox 98.3 F 111 H 20 103/62 93 L 02/26/18 07:20 02/26/18 07:20 02/26/18 07:20 02/26/18 07:20 02/26/18 07:20 - Medications Medications: Current Medications Acetaminophen (Tylenol 325mg Tab) 650 mg PO Q6 PRN PRN Reason: Pain, moderate (4-7) Al Hydrox/Mg Hydrox/Simethicone (Maalox Plus 30 Ml) 30 ml PO Q6H PRN PRN Reason: Indigestion / Heartburn Alprazolam (Xanax) 0.25 mg PO BID PRN PRN Reason: Anxiety Stop: 02/28/18 19:37 Last Admin: 02/22/18 21:05 Dose: 0.25 mg Docusate Sodium (Colace) 100 mg PO BID [facility] Last Admin: 02/26/18 11:39 Dose: Not Given Heparin Sodium (Porcine) (Heparin) 5,000 units SC Q8 [facility] Last Admin: 02/26/18 05:54 Dose: 5,000 units Azithromycin 500 mg/ Sodium (Chloride) 250 mls @ 250 mls/hr IVPB DAILY [facility]; Protocol Last Admin: 02/26/18 11:38 Dose: 250 mls/hr Cefepime HCl (Maxipime Iv 1 Gm Premix) 1 gm in 50 mls @ 100 mls/hr IVPB 0400,1600 [facility]; Protocol Last Admin: 02/26/18 03:34 Dose: 100 mls/hr Pantoprazole Sodium (Protonix Ec Tab) 40 mg PO DAILY [facility] Last Admin: 02/26/18 11:42 Dose: Not Given Polyethylene Glycol (Miralax) 17 gm PO DAILY [facility] Last Admin: 02/26/18 11:39 Dose: Not Given - Labs Labs: 02/24/18 06:24 02/24/18 06:24 PT 21.9 SECONDS (9.7-12.2) H 02/13/18 18:36 INR 2.0 02/13/18 18:36 APTT 44 SECONDS (21-34) H 02/13/18 18:36 - Constitutional Appears: No Acute Distress, Cachectic, Chronically Ill - Head Exam Head Exam: NORMAL INSPECTION, NORMOCEPHALIC - Eye Exam Eye Exam: EOMI, PERRL - ENT Exam ENT Exam: Normal Oropharynx - Neck Exam Neck Exam: Normal Inspection - Cardiovascular Exam Cardiovascular Exam: REGULAR RHYTHM, +S1, +S2 - GI/Abdominal Exam GI & Abdominal Exam: Soft, Normal Bowel Sounds. absent: Tenderness - Extremities Exam Extremities Exam: absent: Calf Tenderness, Pedal Edema - Neurological Exam Neurological Exam: Awake, CN II-XII Intact - Psychiatric Exam Psychiatric exam: Normal Mood - Skin Skin Exam: Normal Color, Warm Assessment and Plan (1) Abdominal pain Assessment & Plan: CONTINUE iv CEFEPIME 1 G EVERY 12 HOURLY 02/13/18.-13 DAYS CONTINUE iv ZITHROMAX 500 MG ONCE A DAY DAILY 02/13/18.-13 DAYS MYCOPLASMA IGG +VE -PROBABLE MYCOPLASMA PNEUMONIA. CONTINUE iv ANTIBIOTICS FOR NOW. CASE DISCUSSED WITH pmd AND STAFF/AND DIELECTRIC TESTER.. Status: Acute (2) Pneumonia Status: Acute (3) COPD exacerbation Status: Acute (4) Cholelithiases Assessment & Plan: HX GALLSTONES. C/O ABDOMINAL PAIN TODAY WILL GET LIMITED ULTRASOUND ABDOMEN TO EVALUATE GALLSTONES/GALLBLADDER AND COMMON BILE DUCT. PER SURGERY Status: Acute (5) Cachexia Status: Acute (6) Alzheimer disease Status: Acute
--- NOTE | 2018-02-26 14:20 | CP.PCM.PN ---
Subjective - Date & Time of Evaluation Date of Evaluation: 02/26/18 Time of Evaluation: 14:20 - Subjective Subjective: Patient is complaining of abdominal pain and nauseous feeling no vomiting. We will repeat another ultrasound to see the progression of gallbladder. Will discuss with the family for rehab Physical examination remain same Objective - Vital Signs/Intake and Output Vital Signs (last 24 hours): Temp Pulse Resp BP Pulse Ox 98.3 F 111 H 20 103/62 93 L 02/26/18 07:20 02/26/18 07:20 02/26/18 07:20 02/26/18 07:20 02/26/18 07:20 - Medications Medications: Current Medications Acetaminophen (Tylenol 325mg Tab) 650 mg PO Q6 PRN PRN Reason: Pain, moderate (4-7) Al Hydrox/Mg Hydrox/Simethicone (Maalox Plus 30 Ml) 30 ml PO Q6H PRN PRN Reason: Indigestion / Heartburn Alprazolam (Xanax) 0.25 mg PO BID PRN PRN Reason: Anxiety Stop: 02/28/18 19:37 Last Admin: 02/22/18 21:05 Dose: 0.25 mg Docusate Sodium (Colace) 100 mg PO BID [facility] Last Admin: 02/26/18 11:39 Dose: Not Given Heparin Sodium (Porcine) (Heparin) 5,000 units SC Q8 [facility] Last Admin: 02/26/18 14:14 Dose: 5,000 units Azithromycin 500 mg/ Sodium (Chloride) 250 mls @ 250 mls/hr IVPB DAILY [facility]; Protocol Last Admin: 02/26/18 11:38 Dose: 250 mls/hr Cefepime HCl (Maxipime Iv 1 Gm Premix) 1 gm in 50 mls @ 100 mls/hr IVPB 0400,1600 [facility]; Protocol Last Admin: 02/26/18 03:34 Dose: 100 mls/hr Pantoprazole Sodium (Protonix Ec Tab) 40 mg PO DAILY [facility] Last Admin: 02/26/18 11:42 Dose: Not Given Polyethylene Glycol (Miralax) 17 gm PO DAILY [facility] Last Admin: 02/26/18 11:39 Dose: Not Given - Labs Labs: 02/24/18 06:24 02/24/18 06:24 PT 21.9 SECONDS (9.7-12.2) H 02/13/18 18:36 INR 2.0 02/13/18 18:36 APTT 44 SECONDS (21-34) H 02/13/18 18:36
--- NOTE | 2018-02-26 16:32 | US ---
Date of service: 02/26/2018 HISTORY: Cholecystitis COMPARISON: Limited abdominal ultrasound performed 02/13/18 TECHNIQUE: Sonographic evaluation of the right upper quadrant of the abdomen. FINDINGS: Examination limited by patient condition as well as habitus. LIVER: Suboptimal evaluation of the liver, particularly the left hepatic lobe. Measures 13.2 cm in length. Echogenic liver may be seen in setting of hepatic parenchymal disease or fatty infiltration. No focal hepatic mass identified. Suboptimal evaluation of the main portal vein. No intrahepatic bile duct dilatation. GALLBLADDER: Cholelithiasis. Gallbladder sludge. No definite gallbladder wall thickening or pericholecystic edema. Negative sonographic Lee's sign as assessed by the auctioneer automobile. COMMON BILE DUCT: Measures 6 mm. PANCREAS: Not well-visualized. RIGHT KIDNEY: Poorly visualized. Measures approximately 10.6 x 5.1 x 5.7 cm. No obstructing calculus or hydronephrosis. AORTA: Limited visualization appears grossly unremarkable. IVC: Limited visualization appears grossly unremarkable. OTHER FINDINGS: None . IMPRESSION: Markedly limited study. Cholelithiasis. Gallbladder sludge. Negative sonographic Lee's sign as assessed by the auctioneer automobile. Correlate clinically. Echogenic liver may be seen in setting of hepatic parenchymal disease or fatty infiltration.
[2018-02-27] MEDS: Cefepime IV 1 gm in Dextrose 1 GM/50 ML BAG IVPB SCH ×2 (03:54→16:30)
[2018-02-27] MEDS: Azithromycin 500 MG in Sodium Chloride 0.9% 250 ML IVPB SCH (10:32)
[2018-02-27] MEDS: Pantoprazole 40 mg EC Tab PO SCH (10:34)
[2018-02-27] MEDS: POLYETHYLENE GLYCOL 3350 17 GM/Dose PACKET PO SCH (10:34)
--- NOTE | 2018-02-27 14:02 | CP.PCM.PN ---
Subjective - Date & Time of Evaluation Date of Evaluation: 02/27/18 Time of Evaluation: 14:00 - Subjective Subjective: Patient has less abdominal pain no nausea or vomiting. Vital signs are stable. Abdomen is soft mild tenderness right upper quadrant. Repeat ultrasound shows essentially no change from the previous one but there is no distention of the gallbladder. Currently the family is refusing short-term rehab. We will discuss with ID for antibiotics. Objective - Vital Signs/Intake and Output Vital Signs (last 24 hours): Temp Pulse Resp BP Pulse Ox 97.4 F L 111 H 20 119/80 92 L 02/27/18 07:30 02/27/18 07:30 02/27/18 07:30 02/27/18 07:30 02/27/18 07:30 - Medications Medications: Current Medications Acetaminophen (Tylenol 325mg Tab) 650 mg PO Q6 PRN PRN Reason: Pain, moderate (4-7) Al Hydrox/Mg Hydrox/Simethicone (Maalox Plus 30 Ml) 30 ml PO Q6H PRN PRN Reason: Indigestion / Heartburn Alprazolam (Xanax) 0.25 mg PO BID PRN PRN Reason: Anxiety Stop: 02/28/18 19:37 Last Admin: 02/22/18 21:05 Dose: 0.25 mg Docusate Sodium (Colace) 100 mg PO BID [facility] Last Admin: 02/27/18 10:34 Dose: Not Given Heparin Sodium (Porcine) (Heparin) 5,000 units SC Q8 [facility] Azithromycin 500 mg/ Sodium (Chloride) 250 mls @ 250 mls/hr IVPB DAILY [facility]; Protocol Last Admin: 02/27/18 10:32 Dose: 250 mls/hr Cefepime HCl (Maxipime Iv 1 Gm Premix) 1 gm in 50 mls @ 100 mls/hr IVPB 0400,1600 [facility]; Protocol Last Admin: 02/27/18 03:54 Dose: 100 mls/hr Pantoprazole Sodium (Protonix Ec Tab) 40 mg PO DAILY [facility] Last Admin: 02/27/18 10:34 Dose: Not Given Polyethylene Glycol (Miralax) 17 gm PO DAILY [facility] Last Admin: 02/27/18 10:34 Dose: Not Given - Labs Labs: 02/24/18 06:24 02/24/18 06:24 PT 21.9 SECONDS (9.7-12.2) H 02/13/18 18:36 INR 2.0 02/13/18 18:36 APTT 44 SECONDS (21-34) H 02/13/18 18:36
--- NOTE | 2018-02-27 14:22 | CP.PCM.PN ---
Subjective - Date & Time of Evaluation Date of Evaluation: 02/27/18 Time of Evaluation: 14:22 - Subjective Subjective: AFEBRILE, C/O LESS ABDOMINAL PAIN. PT SLIGHTLY CONGESTED. DOES NOT WANT TO WEAR O2. LABS/RADIOLOGY Reviewed. ABD. US NOTED -NO CHANGE .CBD 6MM NO DISTENSION OF GALL BLADDER. PLANS; CONSIDER PICC LINE PATIENT WANTS TO GO HOME AND ANTIBIOTICS GIVEN BY FAMILY MEMBERS. CONTINUE iv CEFEPIME 1 G EVERY 12 HOURLY FOR 7 DAYS. CHANGE zITHROMAX TO BY MOUTH 250 MG ONCE A DAY DAILY FOR 5 DAYS. SPOKE TO NURSE PRACTITIONER MS ZULETA/ RN MEDIA CENTER ASSISTANT. CASE DISCUSSED WITH PMD. wILL DISCUSS WITH FAMILY. Objective - Vital Signs/Intake and Output Vital Signs (last 24 hours): Temp Pulse Resp BP Pulse Ox 97.4 F L 111 H 20 119/80 92 L 02/27/18 07:30 02/27/18 07:30 02/27/18 07:30 02/27/18 07:30 02/27/18 07:30 - Medications Medications: Current Medications Acetaminophen (Tylenol 325mg Tab) 650 mg PO Q6 PRN PRN Reason: Pain, moderate (4-7) Al Hydrox/Mg Hydrox/Simethicone (Maalox Plus 30 Ml) 30 ml PO Q6H PRN PRN Reason: Indigestion / Heartburn Alprazolam (Xanax) 0.25 mg PO BID PRN PRN Reason: Anxiety Stop: 02/28/18 19:37 Last Admin: 02/22/18 21:05 Dose: 0.25 mg Docusate Sodium (Colace) 100 mg PO BID [facility] Last Admin: 02/27/18 10:34 Dose: Not Given Heparin Sodium (Porcine) (Heparin) 5,000 units SC Q8 [facility] Last Admin: 02/27/18 14:04 Dose: 5,000 units Azithromycin 500 mg/ Sodium (Chloride) 250 mls @ 250 mls/hr IVPB DAILY [facility]; Protocol Last Admin: 02/27/18 10:32 Dose: 250 mls/hr Cefepime HCl (Maxipime Iv 1 Gm Premix) 1 gm in 50 mls @ 100 mls/hr IVPB 0400,1600 [facility]; Protocol Last Admin: 02/27/18 03:54 Dose: 100 mls/hr Pantoprazole Sodium (Protonix Ec Tab) 40 mg PO DAILY [facility] Last Admin: 02/27/18 10:34 Dose: Not Given Polyethylene Glycol (Miralax) 17 gm PO DAILY [facility] Last Admin: 02/27/18 10:34 Dose: Not Given - Labs Labs: 02/24/18 06:24 02/24/18 06:24 PT 21.9 SECONDS (9.7-12.2) H 02/13/18 18:36 INR 2.0 02/13/18 18:36 APTT 44 SECONDS (21-34) H 02/13/18 18:36 - Constitutional Appears: No Acute Distress, Cachectic, Chronically Ill - Eye Exam Eye Exam: EOMI, PERRL. absent: Scleral icterus - ENT Exam ENT Exam: Normal Oropharynx - Neck Exam Neck Exam: Normal Inspection - Respiratory Exam Respiratory Exam: Decreased Breath Sounds, Rhonchi (FEW SCATTERED RHONCHI.), NORMAL BREATHING PATTERN - Cardiovascular Exam Cardiovascular Exam: REGULAR RHYTHM, +S1, +S2 - GI/Abdominal Exam GI & Abdominal Exam: Soft, Normal Bowel Sounds. absent: Tenderness - Extremities Exam Extremities Exam: Normal Capillary Refill. absent: Calf Tenderness, Pedal Edema - Neurological Exam Neurological Exam: Alert, Awake, CN II-XII Intact - Psychiatric Exam Psychiatric exam: Normal Mood - Skin Skin Exam: Normal Color, Warm Assessment and Plan (1) Abdominal pain Status: Acute (2) Pneumonia Status: Acute (3) COPD exacerbation Status: Acute (4) Cholelithiases Status: Acute (5) Cachexia Status: Acute (6) Alzheimer disease Status: Acute - Assessment and Plan (Free Text) Plan: CONTINUE iv CEFEPIME 1 G EVERY 12 HOURLY 02/13/18.-15 DAYS X 1WEEK MORE CONTINUE iv ZITHROMAX 500 MG ONCE A DAY DAILY 02/13/18.-15 DAYS --CHANGE TO PO ZITHROMAX 250MG PO OD X 5 DAYS MORE. FLORSTAR 250MG PO HS DAILY X 10 DAYS MYCOPLASMA IGG +VE -PROBABLE MYCOPLASMA PNEUMONIA. PT . VERY NON COMPLIANT. KEEPS TAKING OFF OXYGEN. PROGNOSIS GUARDED. FOR F/U OPD CXR AFTER COMPLETION OF RX.
--- NOTE | 2018-02-27 17:11 | RAD ---
Date of service: 02/27/2018 HISTORY: veriify right PICC COMPARISON: 02/26/2008 FINDINGS: LUNGS: The prior coalescent airspace opacities an abnormal appearing interstitial lung markings in the mid lung zone are similar to perhaps slightly increased. Left lateral pleural parenchymal blending opacity is similar. The right infrahilar discoid atelectasis and/or scarring appear similar. The prior asymmetrically elevated right hemidiaphragm is similar. The right superolateral pleural thickening is similar. An interval right-sided PICC line has been inserted the tip is in the right atrium. PLEURA: No significant pleural effusion identified, no pneumothorax apparent. CARDIOVASCULAR: There is presence of aortic atherosclerotic calcification on x-ray. Mild cardiomegaly-similar probable mild pulmonary venous congestion along with the abnormal similar-appearing interstitial abnormal lung markings. Chronic underlying interstitial lung disease inferred. OSSEOUS STRUCTURES: Left orthopedic hardware similar. VISUALIZED UPPER ABDOMEN: Normal. OTHER FINDINGS: None. IMPRESSION: Interval insertion right PICC line tip right atrium. No pneumothorax seen. Most of the other after mentioned findings are similar in appearance with note of some slight interval increase in the coalescence and extent of the blending interstitial and alveolar type opacities in the left mid lung zone. Areas are prior left and right pleural parenchymal thickening reaction appear fairly similar.
--- NOTE | 2018-02-27 18:28 | CP.PCM.PN ---
Subjective - Date & Time of Evaluation Date of Evaluation: 02/27/18 Time of Evaluation: 18:25 - Subjective Subjective: PT ALERT, REFUSED NEB TX EARLIER, +UPPER AIRWAY CONGESTION. ROS ; OTHERWISE NEG. Objective - Vital Signs/Intake and Output Vital Signs (last 24 hours): Temp Pulse Resp BP Pulse Ox 97.8 F 110 H 18 99/59 L 95 02/27/18 15:00 02/27/18 15:00 02/27/18 15:00 02/27/18 15:00 02/27/18 15:00 - Medications Medications: Current Medications Acetaminophen (Tylenol 325mg Tab) 650 mg PO Q6 PRN PRN Reason: Pain, moderate (4-7) Al Hydrox/Mg Hydrox/Simethicone (Maalox Plus 30 Ml) 30 ml PO Q6H PRN PRN Reason: Indigestion / Heartburn Alprazolam (Xanax) 0.25 mg PO BID PRN PRN Reason: Anxiety Stop: 02/28/18 19:37 Last Admin: 02/22/18 21:05 Dose: 0.25 mg Azithromycin (Zithromax) 250 mg PO DAILY [facility]; Protocol Docusate Sodium (Colace) 100 mg PO BID [facility] Last Admin: 02/27/18 17:55 Dose: Not Given Heparin Sodium (Porcine) (Heparin) 5,000 units SC Q8 [facility] Last Admin: 02/27/18 14:04 Dose: 5,000 units Cefepime HCl (Maxipime Iv 1 Gm Premix) 1 gm in 50 mls @ 100 mls/hr IVPB 0400,1600 [facility]; Protocol Last Admin: 02/27/18 16:30 Dose: 100 mls/hr Pantoprazole Sodium (Protonix Ec Tab) 40 mg PO DAILY [facility] Last Admin: 02/27/18 10:34 Dose: Not Given Polyethylene Glycol (Miralax) 17 gm PO DAILY [facility] Last Admin: 02/27/18 10:34 Dose: Not Given - Labs Labs: 02/24/18 06:24 02/24/18 06:24 PT 21.9 SECONDS (9.7-12.2) H 02/13/18 18:36 INR 2.0 02/13/18 18:36 APTT 44 SECONDS (21-34) H 02/13/18 18:36 - Constitutional Appears: Cachectic, Chronically Ill - Head Exam Head Exam: ATRAUMATIC, NORMOCEPHALIC - Eye Exam Eye Exam: EOMI, Normal appearance - ENT Exam ENT Exam: Mucous Membranes Dry - Neck Exam Neck Exam: Normal Inspection - Respiratory Exam Respiratory Exam: Decreased Breath Sounds, Rhonchi. absent: Accessory Muscle Use, Respiratory Distress - Cardiovascular Exam Cardiovascular Exam: RRR, +S1, +S2 - GI/Abdominal Exam GI & Abdominal Exam: Soft - Rectal Exam Rectal Exam: Deferred - Extremities Exam Extremities Exam: absent: Calf Tenderness, Pedal Edema - Back Exam Back Exam: absent: CVA tenderness (L), CVA tenderness (R) - Neurological Exam Neurological Exam: Alert, Awake, CN II-XII Intact. absent: Oriented x3 - Skin Skin Exam: absent: Rash Assessment and Plan (1) Alzheimer disease Status: Acute (2) Cholelithiases Status: Acute (3) COPD exacerbation Status: Acute (4) Abdominal pain Status: Acute (5) Pneumonia Status: Acute (6) Cachexia Status: Acute (7) Respiratory failure Status: Acute - Assessment and Plan (Free Text) Assessment: RESP STATUS WITH INCREASED CONGESTION NOW., DUE FOR NEB BD., ENCOURAGE COMPLIANCE WITH TX. CONT AGGRESSIVE PULM TOILET., MONITOR O2 SAT., ADEQ OXYGENATION ON 2L., NONCOMPLIANT WITH O2. CXR REVIEWED. AFEBRILE ON AB. PROG POOR. DISCUSSED WITH STAFF AT LENGTH.
[2018-02-28] MEDS: Cefepime IV 1 gm in Dextrose 1 GM/50 ML BAG IVPB SCH ×2 (04:33→16:14)
[2018-02-28 06:35] LABS: BASO % 0.7 % (0.0-2.0); EOS % 0.1 % (0.0-4.0); HEMOGLOBIN 12.5 g/dL (12.0-18.0); LYMPH % 4.5 % (20.0-40.0); MEAN CELL VOLUME 89.5 fL (80.0-94.0); MEAN CORPUSCULAR HGB CONC 33.5 g/dL (33.0-37.0); MEAN PLATELET VOLUME 7.2 fL (7.2-11.7); MONO % 6.3 % (0.0-10.0); NEUT # 13.3 K/uL (1.8-7.0); NEUT % 88.4 % (50.0-75.0); NRBC % 0.1 % (0.0-2.0); PLATELET COUNT 497 K/uL (130-400); RBC 4.17 Mil/uL (4.40-5.90); RED CELL DISTRIBUTION WIDTH 14.4 % (11.5-14.5)
[2018-02-28 06:36] LABS: BASO # 0.1 K/uL (0.0-0.2); LYMPH # 0.7 K/uL (1.0-4.3); MONO # 0.9 K/uL (0.0-0.8)
[2018-02-28 06:48] LABS: BLOOD UREA NITROGEN 15 mg/dL (9-20); CALCIUM 8.2 mg/dl (8.6-10.4); GFR NON-AFRICAN AMERICAN > 60
[2018-02-28 07:27] VITALS: RESP 18
[2018-02-28 08:31] LABS: LYMPHOCYTE 4 % (20-40); MONOCYTE 5 % (0-10); NEUTROPHIL 91 % (50-75); TOTAL CELLS COUNTED 100
[2018-02-28 08:32] LABS: PLATELET ESTIMATE SLIGHTLY INCREASED (NORMAL)
[2018-02-28] MEDS: Pantoprazole 40 mg EC Tab PO SCH (11:45)
[2018-02-28] MEDS: POLYETHYLENE GLYCOL 3350 17 GM/Dose PACKET PO SCH (11:46)
--- NOTE | 2018-02-28 12:33 | CP.PCM.PN ---
Subjective - Date & Time of Evaluation Date of Evaluation: 02/28/18 Time of Evaluation: 12:29 - Subjective Subjective: PT ALERT, FEELS BETTER. NO COUGH. ROS; OTHERWISE NEG. Objective - Vital Signs/Intake and Output Vital Signs (last 24 hours): Temp Pulse Resp BP Pulse Ox 99.2 F 115 H 18 104/59 L 95 02/28/18 07:00 02/28/18 07:00 02/28/18 07:00 02/28/18 07:00 02/28/18 07:00 - Medications Medications: Current Medications Acetaminophen (Tylenol 325mg Tab) 650 mg PO Q6 PRN PRN Reason: Pain, moderate (4-7) Al Hydrox/Mg Hydrox/Simethicone (Maalox Plus 30 Ml) 30 ml PO Q6H PRN PRN Reason: Indigestion / Heartburn Alprazolam (Xanax) 0.25 mg PO BID PRN PRN Reason: Anxiety Stop: 02/28/18 19:37 Last Admin: 02/22/18 21:05 Dose: 0.25 mg Docusate Sodium (Colace) 100 mg PO BID [facility] Last Admin: 02/28/18 11:45 Dose: 100 mg Heparin Sodium (Porcine) (Heparin) 5,000 units SC Q8 [facility] Last Admin: 02/28/18 05:38 Dose: Not Given Cefepime HCl (Maxipime Iv 1 Gm Premix) 1 gm in 50 mls @ 100 mls/hr IVPB 0400,1600 [facility]; Protocol Last Admin: 02/28/18 04:33 Dose: 100 mls/hr Azithromycin 500 mg/ Sodium (Chloride) 250 mls @ 250 mls/hr IVPB DAILY [facility]; Protocol Pantoprazole Sodium (Protonix Ec Tab) 40 mg PO DAILY [facility] Last Admin: 02/28/18 11:45 Dose: 40 mg Polyethylene Glycol (Miralax) 17 gm PO DAILY [facility] Last Admin: 02/28/18 11:46 Dose: Not Given - Labs Labs: 02/28/18 06:28 02/28/18 06:28 PT 21.9 SECONDS (9.7-12.2) H 02/13/18 18:36 INR 2.0 02/13/18 18:36 APTT 44 SECONDS (21-34) H 02/13/18 18:36 - Constitutional Appears: No Acute Distress, Cachectic, Chronically Ill - Head Exam Head Exam: ATRAUMATIC, NORMOCEPHALIC - Eye Exam Eye Exam: EOMI, Normal appearance - Neck Exam Neck Exam: Normal Inspection - Respiratory Exam Respiratory Exam: Decreased Breath Sounds. absent: Accessory Muscle Use, Wheezes, Respiratory Distress - Cardiovascular Exam Cardiovascular Exam: RRR, +S1, +S2 - GI/Abdominal Exam GI & Abdominal Exam: Soft - Rectal Exam Rectal Exam: Deferred - Extremities Exam Extremities Exam: absent: Calf Tenderness, Pedal Edema - Back Exam Back Exam: absent: CVA tenderness (L), CVA tenderness (R) - Neurological Exam Neurological Exam: Alert, Awake, CN II-XII Intact - Psychiatric Exam Psychiatric exam: Normal Mood - Skin Skin Exam: absent: Rash Assessment and Plan (1) Alzheimer disease Status: Acute (2) Cholelithiases Status: Acute (3) COPD exacerbation Status: Acute (4) Abdominal pain Status: Acute (5) Pneumonia Status: Acute (6) Cachexia Status: Acute (7) Respiratory failure Status: Acute - Assessment and Plan (Free Text) Assessment: RESP STATUS MORE COMFORTABLE. CONT PULM TOILET., NEB BD. MONITOR O2 SAT ON 2L. CXR REVIEWED. CONT AB. PO DIET TOLERATED. PROG POOR. DISCUSSED WITH STAFF AT LENGTH.
--- NOTE | 2018-02-28 13:46 | CP.PCM.PN ---
Subjective - Date & Time of Evaluation Date of Evaluation: 02/28/18 Time of Evaluation: 13:44 - Subjective Subjective: Patient without oxygen is desaturating to 83%. Patient's white count has gone up to 15,000. Currently patient is unstable to go home on by mouth antibiotics or without oxygen. Discussed with discharge planning to arrange for home oxygen and will discuss with ID concerning high white count. Objective - Vital Signs/Intake and Output Vital Signs (last 24 hours): Temp Pulse Resp BP Pulse Ox 99.2 F 115 H 18 104/59 L 95 02/28/18 07:00 02/28/18 07:00 02/28/18 07:00 02/28/18 07:00 02/28/18 07:00 - Medications Medications: Current Medications Acetaminophen (Tylenol 325mg Tab) 650 mg PO Q6 PRN PRN Reason: Pain, moderate (4-7) Al Hydrox/Mg Hydrox/Simethicone (Maalox Plus 30 Ml) 30 ml PO Q6H PRN PRN Reason: Indigestion / Heartburn Alprazolam (Xanax) 0.25 mg PO BID PRN PRN Reason: Anxiety Stop: 02/28/18 19:37 Last Admin: 02/22/18 21:05 Dose: 0.25 mg Docusate Sodium (Colace) 100 mg PO BID [facility] Last Admin: 02/28/18 11:45 Dose: 100 mg Heparin Sodium (Porcine) (Heparin) 5,000 units SC Q8 VELMA Last Admin: 02/28/18 05:38 Dose: Not Given Cefepime HCl (Maxipime Iv 1 Gm Premix) 1 gm in 50 mls @ 100 mls/hr IVPB 0400,1600 VELMA; Protocol Last Admin: 02/28/18 04:33 Dose: 100 mls/hr Azithromycin 500 mg/ Sodium (Chloride) 250 mls @ 250 mls/hr IVPB DAILY [facility]; Protocol Pantoprazole Sodium (Protonix Ec Tab) 40 mg PO DAILY VELMA Last Admin: 02/28/18 11:45 Dose: 40 mg Polyethylene Glycol (Miralax) 17 gm PO DAILY [facility] Last Admin: 02/28/18 11:46 Dose: Not Given - Labs Labs: 02/28/18 06:28 02/28/18 06:28 PT 21.9 SECONDS (9.7-12.2) H 02/13/18 18:36 INR 2.0 02/13/18 18:36 APTT 44 SECONDS (21-34) H 02/13/18 18:36
[2018-02-28 16:38] VITALS: BP 110/74; TEMP 98.6; O2SAT 93
[2018-02-28 16:40] VITALS: PULSE 70
--- NOTE | 2018-02-28 21:59 | PN ---
DATE: 02/28/2018 LOCATION: 656, bed B. SUBJECTIVE: This is a 72-year-old male, seen and examined in rounds without significant clinical changes but with periods of tachycardia early this morning without reported chest pain or palpitation but intermittent period of mild shortness of breath. The entire chart is reviewed including but not limited to the most recent lab and radiology study results, current and the previous medication list, current and the previous medical events. LABORATORY DATA: Today's lab results showed leukocytosis of 15 with normal hemoglobin and hematocrit with thrombocytosis of 497, with CO2 content of 36 indicative of respiratory alkalosis, creatinine of 0.5, calcium 8.2. The patient still has low albumin 3.1. Most recently chest x-ray, done yesterday, report is seen. PHYSICAL EXAMINATION: GENERAL: A 72-year-old male, afebrile. VITAL SIGNS: Pulse of 114, respiratory rate of 20 to 22, blood pressure of 116/72. HEENT: Showed pale dry mucoid membrane mildly, nonicteric sclerae. LUNGS: Few scattered crepitation. Decreased air entry at bases. HEART: Positive S1 and S2. ABDOMEN: Soft with mild generalized tenderness. No mass or organomegaly. No rebound tenderness or guarding. EXTREMITIES: Without significant clubbing, cyanosis or edema. NEUROLOGIC: No reported new neurological deficits, sensory or motor. The patient is status post upper endoscopy with biopsy. Biopsy report is still pending. IMPRESSION: 1. Re-exacerbation of peptic ulcer disease. 2. Cholelithiasis. 3. Re-exacerbation of chronic obstructive pulmonary disease with pneumonia. 4. Alzheimer's disease by history. 5. Leukocytosis with respiratory insufficiency secondary to above. SUGGESTIONS: 1. Continue current management. 2. Antireflux measure. 3. Further recommendation to follow. Jim Rebolledo MD
[2018-03-01] MEDS ORDERED: Azithromycin 500 MG in Sodium Chloride 0.9% 250 ML IVPB SCH (10:00)
--- NOTE | 2018-03-02 15:20 | CP.PCM.DIS ---
Provider - Provider Date of Admission: 02/13/18 02:26 Attending physician: Cornelia Mancera MD Consults: 02/13/18 06:04 Nursing Referral for Palliative Care Routine Comment: Physician Instructions: Reason For Exam: Palliative care checklist score of 4 02/13/18 08:00 General Surgery Consult Routine Comment: cholecystitis Consulting Provider: Roby Boothe Consulting Physician: Roby Boothe Reason for Consult: cholecystitis 02/13/18 13:35 Physician Consult Routine Comment: Consulting Provider: Rehan Dasilva Consulting Physician: Rehan Dasilva Reason for Consult: leukocytosis Physician Consult Routine Comment: Consulting Provider: Jhonny Ivan Consulting Physician: Jhonny Ivan Reason for Consult: abdominal pain 02/13/18 15:12 Gastroenterology Consult Routine Comment: CBD stone Consulting Provider: Jim Ch Consulting Physician: Jim Ch Reason for Consult: CBD stone 02/13/18 16:50 Pulmonology Consult Routine Comment: Consulting Provider: Alo Reyes Consulting Physician: Alo Reyes Reason for Consult: left lower lobe infiltrate 02/14/18 15:17 Physician Consult Routine Comment: Consulting Provider: Reji Ewing Consulting Physician: Reji Ewing Reason for Consult: hyponatremia 02/20/18 13:38 Critical Care Consult Routine Comment: hypoxia,tachypnea,low sat, tachycardia Consulting Provider: Hailey Amaya Consulting Physician: Hailey Amaya Reason for Consult: see above 02/20/18 13:46 Pulmonology Consult Routine Comment: hypoxia,low pO2 Consulting Provider: Alo Reyes Consulting Physician: Alo Reyes Reason for Consult: worsening abg, tachypnea,tachycardia, low pO2 02/24/18 14:19 Discharge Planning [Case Management Referral] Routine Comment: Physician Instructions: Reason For Exam: MISA Reason for Referral: Discharge Planning 02/25/18 06:18 Nursing Referral for Wound Care Routine Comment: Physician Instructions: Reason For Exam: redness on sacral area Time Spent in preparation of Discharge (in minutes): 36 Hospital Course - Lab Results Lab Results: Micro Results 02/24/18 10:27 Nose MRSA Culture - Final MRSA NOT DETECTED 02/20/18 18:15 Naris MRSA Culture (Admit) - Final MRSA NOT DETECTED 02/13/18 03:27 Blood-Venous Blood Culture - Final NO GROWTH AFTER 5 DAYS 02/13/18 03:27 Blood-Venous Gram Stain - Final TEST NOT PERFORMED 02/13/18 03:10 Blood-Venous Blood Culture - Final NO GROWTH AFTER 5 DAYS 02/13/18 03:10 Blood-Venous Gram Stain - Final TEST NOT PERFORMED 02/13/18 21:55 Naris MRSA Culture (Admit) - Final MRSA DETECTED 02/13/18 21:55 Urine Urine Culture - Final No Growth (<1,000 CFU/ML) Most Recent Lab Values WBC 15.0 K/uL (4.8-10.8) H D 02/28/18 06:28 RBC 4.17 Mil/uL (4.40-5.90) L 02/28/18 06:28 Hgb 12.5 g/dL (12.0-18.0) 02/28/18 06:28 Hct 37.3 % (35.0-51.0) 02/28/18 06:28 MCV 89.5 fL (80.0-94.0) 02/28/18 06:28 MCH 30.0 pg (27.0-31.0) 02/28/18 06:28 MCHC 33.5 g/dL (33.0-37.0) 02/28/18 06:28 RDW 14.4 % (11.5-14.5) 02/28/18 06:28 Plt Count 497 K/uL (130-400) H 02/28/18 06:28 MPV 7.2 fL (7.2-11.7) 02/28/18 06:28 Neut % (Auto) 88.4 % (50.0-75.0) H 02/28/18 06:28 Lymph % (Auto) 4.5 % (20.0-40.0) L 02/28/18 06:28 Brooke % (Auto) 6.3 % (0.0-10.0) 02/28/18 06:28 Eos % (Auto) 0.1 % (0.0-4.0) 02/28/18 06:28 Baso % (Auto) 0.7 % (0.0-2.0) 02/28/18 06:28 Neut # (Auto) 13.3 K/uL (1.8-7.0) H 02/28/18 06:28 Lymph # (Auto) 0.7 K/uL (1.0-4.3) L 02/28/18 06:28 Brooke # (Auto) 0.9 K/uL (0.0-0.8) H 02/28/18 06:28 Eos # (Auto) 0.0 K/uL (0.0-0.7) 02/28/18 06:28 Baso # (Auto) 0.1 K/uL (0.0-0.2) 02/28/18 06:28 Neutrophils % (Manual) 91 % (50-75) H 02/28/18 06:28 Band Neutrophils % 2 % (0-2) 02/18/18 07:39 Lymphocytes % (Manual) 4 % (20-40) L 02/28/18 06:28 Monocytes % (Manual) 5 % (0-10) 02/28/18 06:28 Eosinophils % (Manual) 3 % (0-4) 02/19/18 07:23 Toxic Granulation Present 02/16/18 07:05 Platelet Estimate Slightly increased (NORMAL) H 02/28/18 06:28 Large Platelets Present 02/16/18 07:05 RBC Morphology Normal 02/28/18 06:28 Polychromasia Slight 02/15/18 06:28 Hypochromasia (manual) Slight 02/15/18 06:28 Anisocytosis (manual) Slight 02/16/18 07:05 ESR 95 mm/hr (0-15) H 02/14/18 07:11 PT 21.9 SECONDS (9.7-12.2) H 02/13/18 18:36 INR 2.0 02/13/18 18:36 APTT 44 SECONDS (21-34) H 02/13/18 18:36 Puncture Site Rb 02/16/18 17:16 pCO2 58 mm/Hg (35-45) H 02/16/18 17:16 pO2 92 mm/Hg (80-100) 02/16/18 17:16 HCO3 31.5 mmol/L (21-28) H 02/16/18 17:16 ABG pH 7.39 (7.35-7.45) 02/16/18 17:16 ABG Total CO2 36.9 mmol/L (22-28) H 02/16/18 17:16 ABG O2 Saturation 98.9 % (95-98) H 02/16/18 17:16 ABG Base Excess 8.5 mmol/L (-2.0-3.0) H 02/16/18 17:16 ABG Hemoglobin 11.0 g/dL (11.7-17.4) L 02/16/18 17:16 ABG Carboxyhemoglobin 2.0 % (0.5-1.5) H 02/16/18 17:16 POC ABG HHb (Measured) 1.1 % (0.0-5.0) 02/16/18 17:16 ABG Methemoglobin 1.0 % (0.0-3.0) 02/16/18 17:16 Bereket Test Pos 02/16/18 17:16 A-a O2 Difference 49.0 mm/Hg 02/16/18 17:16 Respiratory Index 0.5 02/16/18 17:16 Hgb O2 Saturation 95.8 % (95.0-98.0) 02/16/18 17:16 Liter Flow 2.5 02/16/18 17:16 FiO2 30.0 % 02/16/18 17:16 Sodium 133 mmol/L (132-148) 02/28/18 06:28 Potassium 4.0 mmol/L (3.6-5.2) 02/28/18 06:28 Chloride 89 mmol/L (98-107) L 02/28/18 06:28 Carbon Dioxide 36 mmol/L (22-30) H 02/28/18 06:28 Anion Gap 12 (10-20) 02/28/18 06:28 BUN 15 mg/dL (9-20) 02/28/18 06:28 Creatinine 0.5 mg/dL (0.8-1.5) L 02/28/18 06:28 Est GFR ( Amer) > 60 02/28/18 06:28 Est GFR (Non-Af Amer) > 60 02/28/18 06:28 POC Glucose (mg/dL) 132 mg/dL (65-110) H 02/15/18 15:51 Random Glucose 103 mg/dL (75-110) 02/28/18 06:28 Serum Osmolality 270 mosm/kg (272-300) L 02/15/18 17:51 Uric Acid 4.5 mg/dL (3.5-8.5) 02/18/18 07:39 Calcium 8.2 mg/dl (8.6-10.4) L 02/28/18 06:28 Phosphorus 3.3 mg/dL (2.5-4.5) 02/24/18 06:24 Magnesium 1.7 mg/dL (1.6-2.3) 02/24/18 06:24 Total Bilirubin 0.6 mg/dL (0.2-1.3) 02/24/18 06:24 Direct Bilirubin 0.3 mg/dL (0.0-0.4) 02/14/18 07:11 AST 23 U/L (17-59) 02/24/18 06:24 ALT 15 U/L (21-72) L D 02/24/18 06:24 Alkaline Phosphatase 109 U/L (38-126) 02/24/18 06:24 Troponin I < 0.0120 ng/mL (0.00-0.120) 02/20/18 15:49 C-React Prot High Sens > 15.00 mg/L (1.00-3.00) H 02/14/18 07:11 NT-Pro-B Natriuret Pep 158 pg/mL (0-900) 02/20/18 15:49 Total Protein 7.7 g/dL (6.3-8.3) 02/24/18 06:24 Albumin 3.1 g/dL (3.5-5.0) L 02/24/18 06:24 Globulin 4.5 gm/dL (2.2-3.9) H 02/24/18 06:24 Albumin/Globulin Ratio 0.7 (1.0-2.1) L 02/24/18 06:24 Lipase 12 U/L (23-300) L 02/12/18 22:50 Free PSA 0.1 ng/mL 02/20/18 15:49 % Free PSA 25 % (calc) (>25) L 02/20/18 15:49 Total PSA 0.4 ng/mL (< or = 4.0) 02/20/18 15:49 Procalcitonin 0.14 NG/ML (0.19-0.49) L 02/20/18 15:49 Urine Color Yellow (YELLOW) 02/12/18 22:15 Urine Clarity Hazy (Clear) 02/12/18 22:15 Urine pH 7.0 (5.0-8.0) 02/12/18 22:15 Ur Specific [place] 1.014 (1.003-1.030) 02/12/18 22:15 Urine Protein 1+ mg/dL (NEGATIVE) H 02/12/18 22:15 Urine Glucose (UA) Normal mg/dL (Normal) 02/12/18 22:15 Urine Ketones Negative mg/dL (NEGATIVE) 02/12/18 22:15 Urine Blood Negative (NEGATIVE) 02/12/18 22:15 Urine Nitrate Negative (NEGATIVE) 02/12/18 22:15 Urine Bilirubin Negative (NEGATIVE) 02/12/18 22:15 Urine Urobilinogen Normal mg/dL (0.2-1.0) 02/12/18 22:15 Ur Leukocyte Esterase Neg Mehrdad/uL (Negative) 02/12/18 22:15 Urine WBC (Auto) 3 /hpf (0-5) 02/12/18 22:15 Urine RBC (Auto) 4 /hpf (0-3) H 02/12/18 22:15 Ur Squamous Epith Cells < 1 /hpf (0-5) 02/12/18 22:15 Amorphous Sediment Few /ul (<OCC) H 02/12/18 22:15 Urine Bacteria Rare (<OCC) 02/12/18 22:15 Urine Osmolality 455 mosm/kg (300-1000) 02/18/18 07:39 Ur Random Creatinine 29.1 mg/dL 02/16/18 08:23 U Random Total Protein 22.0 mg/dL (0.0-12.0) H 02/18/18 09:59 Ur Random Sodium 189 mmol/L 02/16/18 08:23 Ur L.pneumophila Ag Negative (NEGATIVE) 02/14/18 06:51 Mycoplasma pneumon IgG 2.39 (<=0.90) H 02/14/18 07:11 Mycoplasma pneumon IgM 341 U/mL (<770) 02/14/18 07:11 Blood Type O POSITIVE 02/20/18 06:58 Antibody Screen Negative 02/20/18 06:58 - Hospital Course Hospital Course: Patient is admitted for emergency room complaining of abdominal pain mostly on the lower side. In the emergency room patient had abdominal CT which showed gallstones with no evidence of cholecystitis. The ER physician also informed me that there was a CAT scan done of the chest which showed bronchopneumonia. Currently I cannot locate this study. Patient history of Alzheimers disease and full detailed history is and past history is not available apparently patient has a history of prostate problems. Patient has been having abdominal pain for the last 3 days which is increased in intensity or severity there is no definite nausea vomiting diarrhea or hematemesis or melena Patient was admitted to the telemetry. ID pulmonary and nephrology and surgical were consulted. On the day of surgery for acute cholecystitis patient had a mild desaturation. Surgery was canceled as per the surgery department patient is improving and does not need any further surgery. The repeat ultrasound showed no distended gallbladder but gallstones Patient continued IV antibiotics and bronchodilators. Patient was stable in the hospital with saturation more than 90% on nasal cannula oxygen. Patient had a PICC line and was discharged home on IV antibiotics and home oxygen therapy. Patient was instructed through the to report back if patient has any shortness of breath or change of mental status. 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), Cefepime, Cholecystitis (GEN) Additional Instructions: HOME OXYGEN ARRANGED CEFEPIME 1GM IV Q12H VIA PICC LINE PER DR Shelby WRIGHTMAX 250 PO DAILY X5 DAYS HOME CARE/VISITING NURSES/HOME PHYSICAL THERAPY FOLLOW UP WITH PRIMARY MEDICAL DOCTOR IN 1 WEEK nicio oxigenado CEFEPIME 1GM IV Q12H A TRAVS DE LA LNEA PICC SEGN DR Shelby WRIGHTMAX 250 PO DIARIO X5 WADE CUIDADO EN CASA / ENFERMERAS DE VISITACIN / TERAPIA FSICA EN EL HOGAR SEGUIMIENTO CON EL MDICO PRIMARIO EN 1 SEMANA Referrals: Reji Ewing MD [Staff Provider] - Jim Ch [Staff Provider] - Cornelia Mancera MD [Staff Provider] - Alo Reyes MD [Staff Provider] - Jhonny Ivan MD [Staff Provider] -
== END 2018-02-28 17:19 | disposition home health service (06) | DRG 444 ==
LOC: C.ER 20:35 → C.9E 02-13 02:26 → C.3T 02-13 03:19 → C.9I 02-20 16:19 → C.5S 02-24 10:29
PROVIDERS: ADMIT Internal Medicine Cardiovascular Disease; ATTEND Internal Medicine Cardiovascular Disease
PROC: 02H633Z Insertion of Infusion Device into Right Atrium, Percutaneous Approach (ICD-10-PCS; principal; 2018-02-27)
PROC: B244ZZZ Ultrasonography of Right Heart (ICD-10-PCS; 2018-02-27)
DX: K80.62 Calculus of gallbladder and bile duct with acute cholecystitis without obstruction (principal); J96.91 Respiratory failure, unspecified with hypoxia; J18.0 Bronchopneumonia, unspecified organism; J44.0 Chronic obstructive pulmonary disease with (acute) lower respiratory infection; J44.1 Chronic obstructive pulmonary disease with (acute) exacerbation; R64 Cachexia; E22.2 Syndrome of inappropriate secretion of antidiuretic hormone; J84.9 Interstitial pulmonary disease, unspecified; J98.11 Atelectasis; F02.80 Dementia in other diseases classified elsewhere, unspecified severity, without behavioral disturbance, psychotic disturbance, mood disturbance, and anxiety; G30.9 Alzheimer's disease, unspecified; I50.9 Heart failure, unspecified; R06.82 Tachypnea, not elsewhere classified; E86.9 Volume depletion, unspecified; K27.9 Peptic ulcer, site unspecified, unspecified as acute or chronic, without hemorrhage or perforation; Z53.8 Procedure and treatment not carried out for other reasons; K76.0 Fatty (change of) liver, not elsewhere classified; Z87.891 Personal history of nicotine dependence

== ENCOUNTER 2018-03-01 18:35 | Inpatient (IN) | payer OTHER ==
[2018-03-01] MEDS ORDERED: Sodium Chloride 0.9% 1,000 ML IV ONE ×4 (19:00→21:47)
[2018-03-01 19:13] LABS: BASO # 0.1 K/uL (0.0-0.2); BASO % 0.5 % (0.0-2.0); HEMOGLOBIN 11.9 g/dL (12.0-18.0); LYMPH # 0.3 K/uL (1.0-4.3); LYMPH % 1.4 % (20.0-40.0); MEAN CELL VOLUME 90.8 fL (80.0-94.0); MEAN CORPUSCULAR HEMOGLOBIN 29.3 pg (27.0-31.0); MEAN CORPUSCULAR HGB CONC 32.3 g/dL (33.0-37.0); MEAN PLATELET VOLUME 7.3 fL (7.2-11.7); MONO # 0.9 K/uL (0.0-0.8); MONO % 4.9 % (0.0-10.0); NEUT # 17.8 K/uL (1.8-7.0); NEUT % 93.2 % (50.0-75.0); PLATELET COUNT 423 K/uL (130-400); RBC 4.06 Mil/uL (4.40-5.90); RED CELL DISTRIBUTION WIDTH 14.9 % (11.5-14.5); WHITE BLOOD COUNT 19.1 K/uL (4.8-10.8)
[2018-03-01 19:13] LABS: ABG ALLEN TEST NEG; ARTERIAL BLOOD GAS HCO3 24.8 mmol/L (21-28); ARTERIAL BLOOD GAS O2 SAT 100.4 % (95-98); ARTERIAL BLOOD GAS PCO2 55 mm/Hg (35-45); ARTERIAL BLOOD GAS PO2 432 mm/Hg (80-100); ARTERIAL BLOOD GAS TCO2 28.8 mmol/L (22-28)
[2018-03-01 19:32] LABS: BANDS 6 % (0-2); LYMPHOCYTE 1 % (20-40); MONOCYTE 8 % (0-10); NEUTROPHIL 85 % (50-75); PLATELET ESTIMATE SLIGHTLY INCREASED (NORMAL); TOTAL CELLS COUNTED 100
[2018-03-01 19:33] LABS: ALB/GLOB RATIO 0.6 (1.0-2.1); ALBUMIN 3.1 g/dL (3.5-5.0); ALT/SGPT 10 U/L (21-72); ANISOCYTOSIS SLIGHT; AST/SGOT 19 U/L (17-59); BLOOD UREA NITROGEN 22 mg/dL (9-20); CALCIUM 8.2 mg/dl (8.6-10.4); GFR NON-AFRICAN AMERICAN > 60; TOXIC GRANULATION PRESENT
[2018-03-01 19:34] LABS: HYPOCHROMIC SLIGHT
[2018-03-01 19:35] LABS: LARGE PLATELETS PRESENT
--- NOTE | 2018-03-01 19:38 | C.PDOC ---
History Of Present Illness 72 y/o male, recently admitted to the hospital for abdominal pain and diagnosed with cholelithiasis. While in the hospital, patient was found to have pneumonia and was treated with antibiotics. Patients pulmonary condition continued to be concerning and he became hypoxic resulting in an ICU transfer. According to Dr. Mancera, patient improved and he was discharged home yesterday with home infusions of antibiotics (Cefepime) via PICC and home O2. As per , patient seemed fine yesterday, and was walking around, eating and drinking a small amount. He had his infusion of antibiotic this morning. After breakfast, patient was tired, sat in a chair in living room, took a nap, and a few hours later when the tried to wake him up, she had difficulty arousing him and he was not responsive. called 911 and the medics found him with altered mental status in respiratory distress with low pulse ox and did RSI with Rocuronium and Ketamine and intubated him. On arrival in ED he is tachycardic, hypotensive and unresponsive. Time Seen by Provider: 03/01/18 18:40 Chief Complaint (Nursing): Respiratory Distress History Per: Patient History/Exam Limitations: no limitations Onset/Duration Of Symptoms: Hrs Current Symptoms Are (Timing): Still Present Past Medical History Reviewed: Historical Data, Nursing Documentation, Vital Signs Vital Signs: Last Vital Signs Temp 100.5 F H 03/01/18 18:38 Pulse 100 H 03/01/18 19:22 Resp 20 03/01/18 19:22 BP 90/59 L 03/01/18 19:22 Pulse Ox 100 03/01/18 19:22 - Medical History PMH: Alzheimer's Disease, Arthritis (L SH; BACK), CHF (?more than 20 yrs ago), Emphysema Denies: Chronic Kidney Disease Family History: States: No Known Family Hx - Social History Hx Alcohol Use: No Hx Substance Use: No - Immunization History Hx Tetanus Toxoid Vaccination: No Hx Influenza Vaccination: No Hx Pneumococcal Vaccination: No Review Of Systems Constitutional: Positive for: Weakness, Malaise. Negative for: Fever, Chills Cardiovascular: Negative for: Chest Pain Respiratory: Positive for: SOB with Excertion Gastrointestinal: Negative for: Nausea, Vomiting, Abdominal Pain Neurological: Positive for: Weakness, Altered Mental Status Physical Exam - Physical Exam Appears: Chronically Ill, Other (Obtundant; unresponsive) Skin: Warm, Dry, Other (Stage 1 sacral decubitus over sacrum) Head: Atraumatic, Normacephalic Eye(s): left: Abnormal Pupil (constricted bilaterally) Oral Mucosa: Moist Neck: Supple Chest: Symmetrical Cardiovascular: Rhythm Regular (tachycardic), No Murmur Respiratory: No Normal Breath Sounds, No Rales, Rhonchi (coarse rhonci bilaterally), No Wheezing Gastrointestinal/Abdominal: Soft Extremity: Bilateral: Atraumatic, Normal Color And Temperature, Normal ROM Neurological/Psych: No Response To Commands Pain Response: No Response To Pain ED Course And Treatment - Laboratory Results Result Diagrams: 03/01/18 19:09 03/01/18 19:09 Lab Interpretation: Abnormal (WBC 19.1 with left shift, BUN 22, Cr 0.8, Lactate 1.1) ECG: Interpreted By Me ECG Rhythm: Sinus Tachycardia ECG Interpretation: Abnormal O2 Sat by Pulse Oximetry: 100 (Intubated on 40% O2) Pulse Ox Interpretation: Normal - Radiology CXR: Interpreted by Me CXR Interpretation: Yes: Other (bilateral infiltrates, markedly dilated bowel) - Physician Consult Information Outcome Of Conversation: Case discussed with Dr Mancera. Patient to be admitted to ICU. Dr Vega will evaluated in ED. Medical Decision Making Medical Decision Making: Plan: --ABG --EKG --Labs --Chest X-Ray --IV Fluids --Levophed Disposition - Disposition Disposition: HOSPITALIZED Disposition Time: 20:34 Condition: CRITICAL - POA Present On Arrival: None Core Measure Indicators: Code Sepsis, Pneumonia - Clinical Impression Clinical Impression: Pneumonia, Respiratory failure requiring intubation, Altered mental status - Scribe Statement The provider has reviewed the documentation as recorded by the John Carias Provider Attestation: All medical record entries made by the Elizabethibphill were at my direction and personally dictated by me. I have reviewed the chart and agree that the record accurately reflects my personal performance of the history, physical exam, medical decision making, and the department course for this patient. I have also personally directed, reviewed, and agree with the discharge instructions and disposition.
[2018-03-01] MEDS ORDERED: Vancomycin 1 GM 1 GM/250 ML BAG IV STA (19:46)
[2018-03-01] MEDS ORDERED: Vancomycin 1 GM 1 GM/250 ML BAG IVPB ONE (19:52)
--- NOTE | 2018-03-01 19:52 | CP.PCM.HP ---
History of Present Illness - History of Present Illness History of Present Illness: 72 years old male readmitted after respiratory failure. 72-year-old male originally was admitted in [facility] for acute cholecystitis and bronchopneumonia. Patient was treated with IV antibiotics b ronchodilators and surgical ID and pulmonary consults were obtained. Patient improved on the therapy and surgical team was not able to do any surgical intervention because of the patient's poor respiratory status. Surgical opinion was that the patient is improving and does not need any further surgical intervention. Patient was treated with IV antibiotic bronchodilators and oxygen and improved on this therapy. The family refused rehab on advising them on multiple occasions. Patient was stable and was discharged home with PICC line for IV antibiotic home oxygen therapy visiting nurse and homemaker. As per the patient had a peaceful night with no complaints. In the morning patient had his breakfast and have was not in apparently any distress. Patient was evaluated by the visiting nurse and the IV infusion therapy personnel. Patient was not any acute distress. 2 hours prior to admission patient became lethargic and not responding and called the paramedics. Patient was i ntubated on the field and given ketamine. Patient was brought to the emergency room chest x-ray showed unchanged pneumonia. Patient was also not responding to painful stimuli. Currently patient is to be transferred to ICU for further management. Review of systems was not possible. Physical finding. Patient not responding to painful stimuli blood pressure is 102/80 mmHg pulse is 112. Patient is on a respirator. The lung shows bilateral wheezing with wet rales Heart S1-S2 normal tachycardia. Abdomen is soft no distention. Extremities shows no edema. Assessment Progression of the bronchopulmonary pneumonia with sepsis. Plan ICU management ID and pulmonary evaluation. Discussed extensively with the patient's prognosis and the events of the day. Present on Admission - Present on Admission Any Indicators Present on Admission: No Past Patient History - Past Medical History & Family History Past Medical History?: Yes - Past Social History Smoking Status: Former Smoker - CARDIAC Hx Congestive Heart Failure: Yes (?more than 20 yrs ago) - PULMONARY Hx Emphysema: Yes - NEUROLOGICAL Hx Alzheimer's Disease: Yes - HEENT Hx HEENT Problems: No - RENAL Hx Chronic Kidney Disease: No - ENDOCRINE/METABOLIC Hx Endocrine Disorders: No - HEMATOLOGICAL/ONCOLOGICAL Hx Blood Disorders: No - INTEGUMENTARY Hx Dermatological Problems: No - MUSCULOSKELETAL/RHEUMATOLOGICAL Hx Arthritis: Yes (L JOHNSON; BACK) - GASTROINTESTINAL Hx Gastrointestinal Disorders: No - GENITOURINARY/GYNECOLOGICAL Hx Genitourinary Disorders: No - PSYCHIATRIC Hx Substance Use: No - SURGICAL HISTORY Hx Surgeries: Yes Hx Orthopedic Surgery: Yes (LEFT ARM) - ANESTHESIA Hx Anesthesia: Yes Hx Anesthesia Reactions: No Hx Malignant Hyperthermia: No Meds Allergies/Adverse Reactions: Allergies Allergy/AdvReac Type Severity Reaction Status Date / Time No Known Allergies Allergy Verified 03/01/18 18:48 Results - Vital Signs Recent Vital Signs: Last Vital Signs Temp 100.5 F H 03/01/18 18:38 Pulse 101 H 03/01/18 19:45 Resp 20 03/01/18 19:45 BP 111/74 03/01/18 19:45 Pulse Ox 100 03/01/18 19:45 - Labs Result Diagrams: 03/02/18 06:17 03/02/18 06:17 Labs: Laboratory Results - last 24 hr 03/01/18 03/01/18 03/01/18 19:09 19:09 19:10 WBC 19.1 H RBC 4.06 L Hgb 11.9 L Hct 36.8 MCV 90.8 MCH 29.3 MCHC 32.3 L RDW 14.9 H Plt Count 423 H MPV 7.3 Neut % (Auto) 93.2 H Lymph % (Auto) 1.4 L [place] % (Auto) 4.9 Eos % (Auto) 0.0 Baso % (Auto) 0.5 Neut # (Auto) 17.8 H Lymph # (Auto) 0.3 L [place] # (Auto) 0.9 H Eos # (Auto) 0.0 Baso # (Auto) 0.1 Neutrophils % (Manual) 85 H Band Neutrophils % 6 H Lymphocytes % (Manual) 1 L Monocytes % (Manual) 8 Toxic Granulation Present Platelet Estimate Slightly increased H Large Platelets Present Hypochromasia (manual) Slight Anisocytosis (manual) Slight Puncture Site Rfemoral pCO2 55 H pO2 432 H HCO3 24.8 ABG pH 7.30 L ABG Total CO2 28.8 H ABG O2 Saturation 100.4 H ABG Base Excess -0.3 Bereket Test Neg ABG Potassium 2.9 L A-a O2 Difference 212.0 Respiratory Index 0.5 Glucose 103 Lactate 1.1 Vent Mode Prvc Mechanical Rate 20 FiO2 100.0 Tidal Volume 450 PEEP 5 Sodium 137 140.0 Potassium 4.6 Chloride 95 L 112.0 H Carbon Dioxide 35 H Anion Gap 12 BUN 22 H Creatinine 0.8 Est GFR ( Amer) > 60 Est GFR (Non-Af Amer) > 60 Random Glucose 140 H Calcium 8.2 L Total Bilirubin 0.9 AST 19 ALT 10 L D Alkaline Phosphatase 127 H Total Protein 7.9 Albumin 3.1 L Globulin 4.9 H Albumin/Globulin Ratio 0.6 L Arterial Blood Potassium 2.9 L
--- NOTE | 2018-03-01 20:06 | CP.PCM.CON ---
History of Present Illness - History of Present Illness History of Present Illness: INFECTIOUS DISEASE CONSULT; HPI 72 y/o male, recently admitted to the hospital for abdominal pain and diagnosed with cholelithiasis. While in the hospital, patient was found to have pneumonia and was treated with antibiotics. Patients pulmonary condition continued to be concerning and he became hypoxic resulting in an ICU transfer. According to Dr. Mancera, patient improved and he was discharged home yesterday with home infusions of antibiotics (Cefepime) via PICC and home O2. As per , patient seemed fine yesterday, and was walking around, eating and drinking a small amount. He had his infusion of antibiotic this morning. After breakfast, patient was tired, sat in a chair in living room, took a nap, and a few hours later when the tried to wake him up, she had difficulty arousing him and he was not responsive. called 911 and the medics found him with altered mental status in respiratory distress with low pulse ox and did RSI with Rocuronium and Ketamine and intubated him. On arrival in ED he is tachycardic, hypotensive and unresponsive. HX OBTAINED FROM AND STAFF. PT INTUBATED AND UNRESPONSIVE. PT FOUND TO HAVE LEUKOCYTOSIS AND GIVEN A DOSE OF IV VANCOMYCIN 1GM TODAY. ASKED BY PMD FOR INFECTIOUS DISEASE CONSULT. PT WELL KNOWN TO ME FROM RECENT HOSPITALZATION PMH: alzheimers, "prostate problem", emphysema,CHOLELITHIASIS RECENTLY DX BUT BECAME ASYMPTOMATIC AND SURGERY WAS CANCELLED. PSH: left shoulder surgery ALL: NKDA Family History: States: No Known Family Hx - Social History Hx Alcohol Use: No Hx Substance Use: No - Immunization History Hx Tetanus Toxoid Vaccination: No Hx Influenza Vaccination: No Hx Pneumococcal Vaccination: No Review of Systems - Review of Systems Systems not reviewed;Unavailable: Altered Mental Status, Intubated Past Patient History - Past Medical History & Family History Past Medical History?: Yes - Past Social History Smoking Status: Former Smoker - CARDIAC Hx Congestive Heart Failure: Yes (?more than 20 yrs ago) - PULMONARY Hx Emphysema: Yes - NEUROLOGICAL Hx Alzheimer's Disease: Yes - HEENT Hx HEENT Problems: No - RENAL Hx Chronic Kidney Disease: No - ENDOCRINE/METABOLIC Hx Endocrine Disorders: No - HEMATOLOGICAL/ONCOLOGICAL Hx Blood Disorders: No - INTEGUMENTARY Hx Dermatological Problems: No - MUSCULOSKELETAL/RHEUMATOLOGICAL Hx Arthritis: Yes (L SH; BACK) - GASTROINTESTINAL Hx Gastrointestinal Disorders: No - GENITOURINARY/GYNECOLOGICAL Hx Genitourinary Disorders: No - PSYCHIATRIC Hx Substance Use: No - SURGICAL HISTORY Hx Surgeries: Yes Hx Orthopedic Surgery: Yes (LEFT ARM) - ANESTHESIA Hx Anesthesia: Yes Hx Anesthesia Reactions: No Hx Malignant Hyperthermia: No Meds Allergies/Adverse Reactions: Allergies Allergy/AdvReac Type Severity Reaction Status Date / Time No Known Allergies Allergy Verified 03/01/18 18:48 - Medications Medications: Current Medications Norepinephrine Bitartrate 4 mg (/ Sodium Chloride) 254 mls @ 15.24 mls/hr IV .[id number] PRN; Protocol PRN Reason: TITRATE PER MD ORDER Vancomycin HCl (Vancomycin 1gm In Normal Saline Addvantage) 1 gm in 250 mls @ 166.667 mls/hr IV STAT STA; Protocol Stop: 03/01/18 21:15 Last Admin: 03/01/18 20:00 Dose: 166.667 mls/hr Physical Exam - Constitutional Appears: Cachectic, Chronically Ill - Head Exam Head Exam: NORMAL INSPECTION - Eye Exam Pupil Exam: Irregular - ENT Exam ENT Exam: Normal Oropharynx - Neck Exam Neck exam: Positive for: Normal Inspection - Respiratory Exam Respiratory Exam: Rhonchi, Wheezes - Cardiovascular Exam Cardiovascular Exam: Tachycardia, REGULAR RHYTHM, +S1, +S2 - GI/Abdominal Exam GI & Abdominal Exam: Normal Bowel Sounds, Soft. absent: Tenderness - Extremities Exam Extremities exam: Positive for: pedal pulses present. Negative for: calf tenderness, pedal edema - Neurological Exam Neurological exam: Altered - Skin Skin Exam: Dry, Normal Color, Warm Results - Vital Signs Recent Vital Signs: Last Vital Signs Temp 100.5 F H 03/01/18 18:38 Pulse 101 H 03/01/18 19:45 Resp 20 03/01/18 19:45 BP 111/74 03/01/18 19:45 Pulse Ox 100 03/01/18 19:45 - Labs Result Diagrams: 03/02/18 06:17 03/02/18 06:17 Labs: Laboratory Results - last 24 hr 03/01/18 03/01/18 03/01/18 19:09 19:09 19:10 WBC 19.1 H RBC 4.06 L Hgb 11.9 L Hct 36.8 MCV 90.8 MCH 29.3 MCHC 32.3 L RDW 14.9 H Plt Count 423 H MPV 7.3 Neut % (Auto) 93.2 H Lymph % (Auto) 1.4 L [place] % (Auto) 4.9 Eos % (Auto) 0.0 Baso % (Auto) 0.5 Neut # (Auto) 17.8 H Lymph # (Auto) 0.3 L [place] # (Auto) 0.9 H Eos # (Auto) 0.0 Baso # (Auto) 0.1 Neutrophils % (Manual) 85 H Band Neutrophils % 6 H Lymphocytes % (Manual) 1 L Monocytes % (Manual) 8 Toxic Granulation Present Platelet Estimate Slightly increased H Large Platelets Present Hypochromasia (manual) Slight Anisocytosis (manual) Slight Puncture Site Rfemoral pCO2 55 H pO2 432 H HCO3 24.8 ABG pH 7.30 L ABG Total CO2 28.8 H ABG O2 Saturation 100.4 H ABG Base Excess -0.3 [place]re[place] Test Neg ABG Potassium 2.9 L A-a O2 Difference 212.0 Respiratory Index 0.5 Glucose 103 Lactate 1.1 Vent Mode Prvc Mechanical Rate 20 FiO2 100.0 Tidal Volume 450 PEEP 5 Sodium 137 140.0 Potassium 4.6 Chloride 95 L 112.0 H Carbon Dioxide 35 H Anion Gap 12 BUN 22 H Creatinine 0.8 Est GFR ( Amer) > 60 Est GFR (Non-Af Amer) > 60 Random Glucose 140 H Calcium 8.2 L Total Bilirubin 0.9 AST 19 ALT 10 L D Alkaline Phosphatase 127 H Total Protein 7.9 Albumin 3.1 L Globulin 4.9 H Albumin/Globulin Ratio 0.6 L Arterial Blood Potassium 2.9 L Assessment & Plan (1) Respiratory failure requiring intubation Status: Acute (2) Altered mental status Status: Acute (3) Pneumonia Status: Acute (4) Sepsis associated hypotension Status: Acute (5) Cholelithiases Status: Acute - Assessment and Plan (Free Text) Plan: PLAN; PANCULTURE MRSA SCREEN UA/URINE CULTURE SPUTUM GRAM STAIN CULTURE START IV ZOSYN 3.375GM IVPB Q 8HRLY 03/01/18. CONTINUE IV VANCOMYCIN 1GM IVPB [id number] 03/01/18. VANCO TROUGH PRIOR TO 4TH DOSE AND KEEP BETWEEN 10-20MG/DL. F/U CT HEAD PROGNOSIS GUARDED. CASE DISCUSSED WIT STAFF AND FAMILY.
[2018-03-01 20:57] LABS: GRANULAR CAST 4 /lpf (0-1); SQUAMOUS EPITHIAL < 1 /hpf (0-5); URINE BACTERIA RARE (<OCC); URINE BILIRUBIN NEGATIVE (NEGATIVE); URINE BLOOD 1+ (NEGATIVE); URINE CLARITY Clear (Clear); URINE COLOR Straw (YELLOW); URINE GLUCOSE (UA) NORMAL (Normal); URINE LEUKOCYTE ESTERASE NEG Leu/uL (Negative); URINE PROTEIN NEGATIVE (NEGATIVE); URINE UROBILINOGEN NORMAL mg/dL (0.2-1.0)
--- NOTE | 2018-03-01 21:03 | CP.PCM.CON ---
History of Present Illness - History of Present Illness History of Present Illness: CCM 72 yo male with hx COPD /Alzheimers /CHF /Arthritis recently hospitalized at for abdomenal pain /Cholelithiasis /PNA. Pt went home on Ab. Today became poorly responsive sitting in chair at home. Pt with resp distress intubated in field by EMS with Ketamine and [place]. In ED pt was hypotensive which imroved with IV fluid. Pt unable to give hx. ROS- as noted All- NKDA [id number]/ no etoh or drugs Meds- reviewed FH- Unknown PE T- 100.9 P100 R-20 BP90/59 Intubated, unresponsive Pupils constricted Neck- no jvd lungs- bilat coarse bs Heart-rr aBd- bs+, soft Ext- no edema Neuro- no movement to pain Labs, EKG [id number] A&P Acute Hypercapneic Resp Failure PNA Sepsis COPD Cholelithiasis Alzheimers Admit to ICU cont IV fluid Broad Ab ID eval check cultures Optimize vent support CT Brain maintain optimal lytes f/u labs DVT & GI prophylaxis Past Patient History - Past Medical History & Family History Past Medical History?: Yes - Past Social History Smoking Status: Former Smoker - CARDIAC Hx Congestive Heart Failure: Yes (?more than 20 yrs ago) - PULMONARY Hx Emphysema: Yes - NEUROLOGICAL Hx Alzheimer's Disease: Yes - HEENT Hx HEENT Problems: No - RENAL Hx Chronic Kidney Disease: No - ENDOCRINE/METABOLIC Hx Endocrine Disorders: No - HEMATOLOGICAL/ONCOLOGICAL Hx Blood Disorders: No - INTEGUMENTARY Hx Dermatological Problems: No - MUSCULOSKELETAL/RHEUMATOLOGICAL Hx Arthritis: Yes (L SH; BACK) - GASTROINTESTINAL Hx Gastrointestinal Disorders: No - GENITOURINARY/GYNECOLOGICAL Hx Genitourinary Disorders: No - PSYCHIATRIC Hx Substance Use: No - SURGICAL HISTORY Hx Surgeries: Yes Hx Orthopedic Surgery: Yes (LEFT ARM) - ANESTHESIA Hx Anesthesia: Yes Hx Anesthesia Reactions: No Hx Malignant Hyperthermia: No Meds Allergies/Adverse Reactions: Allergies Allergy/AdvReac Type Severity Reaction Status Date / Time No Known Allergies Allergy Verified 03/01/18 18:48 - Medications Medications: Current Medications Norepinephrine Bitartrate 4 mg (/ Sodium Chloride) 254 mls @ 15.24 mls/hr IV .[id number] PRN; Protocol PRN Reason: TITRATE PER MD ORDER Vancomycin HCl (Vancomycin 1gm In Normal Saline Addvantage) 1 gm in 250 mls @ 166.667 mls/hr IV STAT STA; Protocol Stop: 03/01/18 21:15 Last Admin: 03/01/18 20:00 Dose: 166.667 mls/hr Piperacillin Sod/Tazobactam Sod (Zosyn 3.375 Gm Iv Premix) 3.375 gm in 50 mls @ 100 mls/hr IVPB Q8H VELMA; Protocol Vancomycin HCl 1 gm/ Sodium (Chloride) 250 mls @ 166.7 mls/hr IVPB Q24H VELMA; Protocol Results - Vital Signs Recent Vital Signs: Last Vital Signs Temp 100.5 F H 03/01/18 18:38 Pulse 101 H 03/01/18 19:45 Resp 20 03/01/18 19:45 BP 111/74 03/01/18 19:45 Pulse Ox 100 03/01/18 20:35 - Labs Result Diagrams: 03/01/18 19:09 03/01/18 19:09 Labs: Laboratory Results - last 24 hr 03/01/18 03/01/18 03/01/18 19:09 19:09 19:10 WBC 19.1 H RBC 4.06 L Hgb 11.9 L Hct 36.8 MCV 90.8 MCH 29.3 MCHC 32.3 L RDW 14.9 H Plt Count 423 H MPV 7.3 Neut % (Auto) 93.2 H Lymph % (Auto) 1.4 L [place] % (Auto) 4.9 Eos % (Auto) 0.0 Baso % (Auto) 0.5 Neut # (Auto) 17.8 H Lymph # (Auto) 0.3 L [place] # (Auto) 0.9 H Eos # (Auto) 0.0 Baso # (Auto) 0.1 Neutrophils % (Manual) 85 H Band Neutrophils % 6 H Lymphocytes % (Manual) 1 L Monocytes % (Manual) 8 Toxic Granulation Present Platelet Estimate Slightly increased H Large Platelets Present Hypochromasia (manual) Slight Anisocytosis (manual) Slight Puncture Site Rfemoral pCO2 55 H pO2 432 H HCO3 24.8 ABG pH 7.30 L ABG Total CO2 28.8 H ABG O2 Saturation 100.4 H ABG Base Excess -0.3 Bereket Test Neg ABG Potassium 2.9 L A-a O2 Difference 212.0 Respiratory Index 0.5 Glucose 103 Lactate 1.1 Vent Mode Prvc Mechanical Rate 20 FiO2 100.0 Tidal Volume 450 PEEP 5 Sodium 137 140.0 Potassium 4.6 Chloride 95 L 112.0 H Carbon Dioxide 35 H Anion Gap 12 BUN 22 H Creatinine 0.8 Est GFR ( Amer) > 60 Est GFR (Non-Af Amer) > 60 Random Glucose 140 H Calcium 8.2 L Total Bilirubin 0.9 AST 19 ALT 10 L D Alkaline Phosphatase 127 H Total Protein 7.9 Albumin 3.1 L Globulin 4.9 H Albumin/Globulin Ratio 0.6 L Arterial Blood Potassium 2.9 L Assessment & Plan (1) Respiratory failure requiring intubation Status: Acute (2) Pneumonia Status: Acute (3) Alzheimer disease Status: Chronic (4) Sepsis associated hypotension Status: Acute
[2018-03-01] MEDS ORDERED: Sodium Chloride 0.9% 1,000 ML IV SCH (21:30)
[2018-03-01] MEDS: Piperacill/Tazo 3.375gm in Dex 3.375 GM/50 ML BAG IVPB SCH (21:48)
[2018-03-01 22:49] LABS: ARTERIAL BLOOD GAS HCO3 26.9 mmol/L (21-28); ARTERIAL BLOOD GAS HEMOGLOBIN 10.8 g/dL (11.7-17.4); ARTERIAL BLOOD GAS O2 SAT 97.5 % (95-98); ARTERIAL BLOOD GAS PCO2 51 mm/Hg (35-45); ARTERIAL BLOOD GAS PH 7.36 (7.35-7.45); ARTERIAL BLOOD GAS PO2 75 mm/Hg (80-100); ARTERIAL BLOOD GAS TCO2 30.4 mmol/L (22-28)
[2018-03-02 04:33] LABS: ARTERIAL BLOOD GAS HCO3 27.1 mmol/L (21-28); ARTERIAL BLOOD GAS HEMOGLOBIN 13.8 g/dL (11.7-17.4); ARTERIAL BLOOD GAS PCO2 56 mm/Hg (35-45); ARTERIAL BLOOD GAS PH 7.34 (7.35-7.45); ARTERIAL BLOOD GAS PO2 66 mm/Hg (80-100); ARTERIAL BLOOD GAS TCO2 31.9 mmol/L (22-28)
[2018-03-02] MEDS: Piperacill/Tazo 3.375gm in Dex 3.375 GM/50 ML BAG IVPB SCH ×3 (05:11→20:45)
[2018-03-02 05:16] VITALS: BMI 18.7
[2018-03-02] MEDS ORDERED: Sodium Chloride 0.9% 1,000 ML IV SCH (06:24)
[2018-03-02 06:41] LABS: BASO % 0.1 % (0.0-2.0); HEMOGLOBIN 10.9 g/dL (12.0-18.0); LYMPH # 0.3 K/uL (1.0-4.3); LYMPH % 1.4 % (20.0-40.0); MEAN CORPUSCULAR HEMOGLOBIN 29.9 pg (27.0-31.0); MEAN CORPUSCULAR HGB CONC 32.5 g/dL (33.0-37.0); MEAN PLATELET VOLUME 7.6 fL (7.2-11.7); MONO # 0.6 K/uL (0.0-0.8); MONO % 2.9 % (0.0-10.0); NEUT # 19.4 K/uL (1.8-7.0); NEUT % 95.6 % (50.0-75.0); PLATELET COUNT 357 K/uL (130-400); RBC 3.64 Mil/uL (4.40-5.90); RED CELL DISTRIBUTION WIDTH 14.6 % (11.5-14.5); WHITE BLOOD COUNT 20.4 K/uL (4.8-10.8)
[2018-03-02 06:49] LABS: ALB/GLOB RATIO 0.6 (1.0-2.1); ALBUMIN 2.5 g/dL (3.5-5.0); ALT/SGPT 12 U/L (21-72); AST/SGOT 27 U/L (17-59); BLOOD UREA NITROGEN 12 mg/dL (9-20); CALCIUM 7.2 mg/dl (8.6-10.4); GFR NON-AFRICAN AMERICAN > 60
[2018-03-02] MEDS: Acetaminophen 650mg/20.3ml solution UD NG PRN (07:53)
--- NOTE | 2018-03-02 08:45 | RAD ---
Date of service: 03/01/2018 PROCEDURE: CHEST RADIOGRAPH, 1 VIEW HISTORY: Pneumonia COMPARISON: Comparison is made with 02/27/2018 FINDINGS: LUNGS: Heterogeneous opacities at the left lung is again noted. Diffuse reticular opacities in the lungs and pleural thickening are again noted. The ET tube is seen at appropriate position. PLEURA: Small bilateral pleural effusion and blunting of the costophrenic angle are noted left more than right CARDIOVASCULAR: No aortic atherosclerotic calcification present. Normal. OSSEOUS STRUCTURES: No significant abnormalities. VISUALIZED UPPER ABDOMEN: Mildly dilated air-filled bowel loops are seen in the abdomen. OTHER FINDINGS: None. IMPRESSION: No significant interval changes noted since the previous exam. The ET tube is seen at appropriate position.
[2018-03-02 08:52] LABS: BANDS 15 % (0-2); LYMPHOCYTE 1 % (20-40); MONOCYTE 3 % (0-10); NEUTROPHIL 81 % (50-75); PLATELET ESTIMATE NORMAL (NORMAL); TOTAL CELLS COUNTED 100
[2018-03-02 08:53] LABS: ANISOCYTOSIS SLIGHT
[2018-03-02 08:54] LABS: HYPOCHROMIC SLIGHT; LARGE PLATELETS PRESENT; POLYCHROMIC SLIGHT
[2018-03-02 08:55] LABS: GIANT PLATELETS PRESENT; TOXIC GRANULATION PRESENT
[2018-03-02] MEDS: Lactated Ringer's 1,000 ML IV SCH ×2 (09:18→17:39)
--- NOTE | 2018-03-02 09:39 | CT ---
Date of service: 03/01/2018 PROCEDURE: CT HEAD WITHOUT CONTRAST. HISTORY: altered mental status COMPARISON: None available. TECHNIQUE: Axial computed tomography images were obtained through the head/brain without intravenous contrast. Radiation dose: Total exam DLP = 1186.61 mGy-cm. This CT exam was performed using one or more of the following dose reduction techniques: Automated exposure control, adjustment of the mA and/or kV according to patient size, and/or use of iterative reconstruction technique. FINDINGS: HEMORRHAGE: No intracranial hemorrhage. BRAIN: No mass effect or edema. Moderate atrophy and moderate white matter changes suggestive but nonspecific for chronic microvascular ischemic disease. VENTRICLES: Unremarkable. No hydrocephalus. CALVARIUM: Unremarkable. PARANASAL SINUSES: Mucosal thickening in the ethmoid sinuses noted. MASTOID AIR CELLS: Unremarkable as visualized. No inflammatory changes. OTHER FINDINGS: None. IMPRESSION: No evidence of acute intracranial hemorrhage intracranial collection mass effect or midline shift. Moderate atrophy and moderate chronic microvascular white matter ischemic disease. Preliminary report was submitted by [facility] Radiology contains concordant findings.
[2018-03-02] MEDS ORDERED: Potassium Chloride 20 mEq ER Tab PO ONE (13:45)
[2018-03-02] MEDS ORDERED: Potassium Chloride 20 mEq/15 ml LIQ UD PO ONE ×2 (13:46→13:48)
[2018-03-02] MEDS ORDERED: Magnesium Sulfate 1 gm in D5W 1 GM/100 ML BAG IVPB ONE (14:00)
[2018-03-02] MEDS ORDERED: Potassium Phosphate 15 MMOLE in Dextrose 5% In Water 250 ML IVPB ONE (14:30)
[2018-03-02] MEDS: Albuterol-Ipratrop 3 mg / 0.5 (3 ml) UD INH SCH ×2 (14:30→20:17)
--- NOTE | 2018-03-02 15:16 | CP.PCM.PN ---
Subjective - Date & Time of Evaluation Date of Evaluation: 03/02/18 Time of Evaluation: 15:16 - Subjective Subjective: the Objective - Vital Signs/Intake and Output Vital Signs (last 24 hours): Temp Pulse Resp BP Pulse Ox 100.0 F H 91 H 20 83/39 L 100 03/02/18 12:00 03/02/18 14:58 03/02/18 14:58 03/02/18 14:59 03/02/18 14:58 Intake and Output: 03/02/18 03/02/18 11:59 23:59 Intake Total 2174.3 872.3 Output Total 1810 400 Balance 364.3 472.3 - Medications Medications: Current Medications Acetaminophen (Tylenol 650mg/20.3ml Solution Ud) 650 mg NG Q6 PRN PRN Reason: Fever >100.4 F Last Admin: 03/02/18 07:53 Dose: 650 mg Albuterol/Ipratropium (Duoneb 3 Mg/0.5 Mg (3 Ml) Ud) 3 ml INH RQ6 [facility]ELMA Famotidine (Pepcid) 20 mg IVP Q12 [facility]MA Last Admin: 03/02/18 09:18 Dose: 20 mg Heparin Sodium (Porcine) (Heparin) 5,000 units SC Q8 VELMA Last Admin: 03/02/18 13:55 Dose: 5,000 units Hydrocortisone Sodium Succinate (Solu-Cortef) 100 mg IV Q8H [facility] Last Admin: 03/02/18 12:14 Dose: 100 mg Norepinephrine Bitartrate 4 mg (/ Sodium Chloride) 254 mls @ 15.24 mls/hr IV .[id number] PRN; Protocol PRN Reason: TITRATE PER MD ORDER Last Titration: 03/02/18 13:13 Dose: 16 mcg/min, 60.96 mls/hr Piperacillin Sod/Tazobactam Sod (Zosyn 3.375 Gm Iv Premix) 3.375 gm in 50 mls @ 100 mls/hr IVPB Q8H VELMA; Protocol Last Admin: 03/02/18 12:13 Dose: 100 mls/hr Vancomycin HCl 1 gm/ Sodium (Chloride) 250 mls @ 166.7 mls/hr IVPB Q24H [facility]ELMA; Protocol Fentanyl Citrate 2,500 mcg/ (Sodium Chloride) 250 mls @ 6.8 mls/hr IV .Q24H VELMA; Protocol Last Admin: 03/02/18 09:20 Dose: 1 mcg/kg/hr, 6.8 mls/hr Lactated Ringer's (Lactated Ringer's) 1,000 mls @ 150 mls/hr IV .Q6H40M [facility] Last Admin: 03/02/18 09:18 Dose: 150 mls/hr Potassium Phosphate 15 mmole/ (Dextrose) 255 mls @ 42.5 mls/hr IVPB ONCE ONE Stop: 03/02/18 20:29 - Labs Labs: 03/02/18 06:17 03/02/18 06:17
--- NOTE | 2018-03-02 15:46 | RAD ---
Date of service: 03/02/2018 HISTORY: intubated, dx. Resp. Failure,pneumonia COMPARISON: Is made with 03/01/2018 FINDINGS: LUNGS: Interval mild improvement in the previously seen patchy heterogeneous opacity at the left lung since the previous exam. The ET tube is seen at appropriate position. Diffuse reticular opacities in the lungs are again noted. PLEURA: Blunting of both costophrenic angle is noted. CARDIOVASCULAR: No aortic atherosclerotic calcification present. Normal cardiac size. No pulmonary vascular congestion. OSSEOUS STRUCTURES: Internal fixation at the left humerus is again noted. VISUALIZED UPPER ABDOMEN: Normal. OTHER FINDINGS: The NG tube seen extending to the abdomen. IMPRESSION: Interval slight improvement in the left lung heterogeneous opacity since the previous exam. Appropriate position of the support devices.
--- NOTE | 2018-03-02 16:58 | CP.PCM.CON ---
History of Present Illness - History of Present Illness History of Present Illness: CHART REVIEWED. 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 PT FOUND UNRESPONSIVE AT HOME , EMS CALLED , PT INTUBATED IN FIELD. NO FURTHER HX AVAILABLE. Review of Systems - Review of Systems Systems not reviewed;Unavailable: Intubated All systems: reviewed and no additional remarkable complaints except Past Patient History - Past Medical History & Family History Past Medical History?: Yes Past Family History: Reviewed and not pertinent - Past Social History Smoking Status: Former Smoker - CARDIAC Hx Congestive Heart Failure: Yes (?more than 20 yrs ago) - PULMONARY Hx Emphysema: Yes Hx Pneumonia: Yes - NEUROLOGICAL Hx Alzheimer's Disease: Yes - HEENT Hx HEENT Problems: No - RENAL Hx Chronic Kidney Disease: No - ENDOCRINE/METABOLIC Hx Endocrine Disorders: No - HEMATOLOGICAL/ONCOLOGICAL Hx Blood Disorders: No - INTEGUMENTARY Hx Dermatological Problems: No - MUSCULOSKELETAL/RHEUMATOLOGICAL Hx Arthritis: Yes (L SH; BACK) - GASTROINTESTINAL Hx Gastrointestinal Disorders: No Hx Gall Bladder Disease: Yes - GENITOURINARY/GYNECOLOGICAL Hx Genitourinary Disorders: No - PSYCHIATRIC Hx Substance Use: No - SURGICAL HISTORY Hx Surgeries: Yes Hx Orthopedic Surgery: Yes (LEFT ARM) - ANESTHESIA Hx Anesthesia: Yes Hx Anesthesia Reactions: No Hx Malignant Hyperthermia: No Meds Allergies/Adverse Reactions: Allergies Allergy/AdvReac Type Severity Reaction Status Date / Time No Known Allergies Allergy Verified 03/01/18 18:48 - Medications Medications: Current Medications Acetaminophen (Tylenol 650mg/20.3ml Solution Ud) 650 mg NG Q6 PRN PRN Reason: Fever >100.4 F Last Admin: 03/02/18 07:53 Dose: 650 mg Albuterol/Ipratropium (Duoneb 3 Mg/0.5 Mg (3 Ml) Ud) 3 ml INH RQ6 VELMA Famotidine (Pepcid) 20 mg IVP Q12 VELMA Last Admin: 03/02/18 09:18 Dose: 20 mg Heparin Sodium (Porcine) (Heparin) 5,000 units SC Q8 VELMA Last Admin: 03/02/18 13:55 Dose: 5,000 units Hydrocortisone Sodium Succinate (Solu-Cortef) 100 mg IV Q8H VELMA Last Admin: 03/02/18 12:14 Dose: 100 mg Norepinephrine Bitartrate 4 mg (/ Sodium Chloride) 254 mls @ 15.24 mls/hr IV .[id number] PRN; Protocol PRN Reason: TITRATE PER MD ORDER Last Admin: 03/02/18 16:48 Dose: 16 mcg/min, 60.96 mls/hr Piperacillin Sod/Tazobactam Sod (Zosyn 3.375 Gm Iv Premix) 3.375 gm in 50 mls @ 100 mls/hr IVPB Q8H VELMA; Protocol Last Admin: 03/02/18 12:13 Dose: 100 mls/hr Vancomycin HCl 1 gm/ Sodium (Chloride) 250 mls @ 166.7 mls/hr IVPB Q24H VELMA; Protocol Fentanyl Citrate 2,500 mcg/ (Sodium Chloride) 250 mls @ 6.8 mls/hr IV .Q24H VELMA; Protocol Last Titration: 03/02/18 13:00 Dose: 2 mcg/kg/hr, 13.61 mls/hr Lactated Ringer's (Lactated Ringer's) 1,000 mls @ 150 mls/hr IV .Q6H40M VELMA Last Admin: 03/02/18 09:18 Dose: 150 mls/hr Potassium Phosphate 15 mmole/ (Dextrose) 255 mls @ 42.5 mls/hr IVPB ONCE ONE Stop: 03/02/18 20:29 Last Admin: 03/02/18 15:33 Dose: 42.5 mls/hr Physical Exam - Constitutional Appears: Cachectic, Chronically Ill - Head Exam Head Exam: ATRAUMATIC, NORMOCEPHALIC - Eye Exam Eye Exam: Normal appearance - ENT Exam Additional comments: +ORAL ETT #7.5 - Neck Exam Neck exam: Positive for: Normal Inspection - Respiratory Exam Respiratory Exam: Rhonchi - Cardiovascular Exam Cardiovascular Exam: RRR, +S1, +S2 - GI/Abdominal Exam GI & Abdominal Exam: Soft - Rectal Exam Rectal Exam: Deferred - Extremities Exam Extremities exam: Negative for: pedal edema - Neurological Exam Additional comments: SEDATED Results - Vital Signs Recent Vital Signs: Last Vital Signs Temp 99.0 F 03/02/18 16:00 Pulse 91 H 03/02/18 16:15 Resp 20 03/02/18 16:15 BP 96/48 L 03/02/18 16:48 Pulse Ox 100 03/02/18 16:15 - Labs Result Diagrams: 03/02/18 06:17 03/02/18 06:17 Labs: Laboratory Results - last 24 hr 03/01/18 03/01/18 03/01/18 19:09 19:09 19:10 WBC 19.1 H RBC 4.06 L Hgb 11.9 L Hct 36.8 MCV 90.8 MCH 29.3 MCHC 32.3 L RDW 14.9 H Plt Count 423 H MPV 7.3 Neut % (Auto) 93.2 H Lymph % (Auto) 1.4 L Morrison % (Auto) 4.9 Eos % (Auto) 0.0 Baso % (Auto) 0.5 Neut # (Auto) 17.8 H Lymph # (Auto) 0.3 L Morrison # (Auto) 0.9 H Eos # (Auto) 0.0 Baso # (Auto) 0.1 Neutrophils % (Manual) 85 H Band Neutrophils % 6 H Lymphocytes % (Manual) 1 L Monocytes % (Manual) 8 Toxic Granulation Present Platelet Estimate Slightly increased H Large Platelets Present Giant Platelets Polychromasia Hypochromasia (manual) Slight Anisocytosis (manual) Slight Puncture Site Rfemoral pCO2 55 H pO2 432 H HCO3 24.8 ABG pH 7.30 L ABG Total CO2 28.8 H ABG O2 Saturation 100.4 H ABG Base Excess -0.3 ABG Hemoglobin ABG Carboxyhemoglobin POC ABG HHb (Measured) ABG Methemoglobin [place]reket Test Neg ABG Potassium 2.9 L A-a O2 Difference 212.0 Respiratory Index 0.5 Hgb O2 Saturation Glucose 103 Lactate 1.1 Vent Mode Prvc Mechanical Rate 20 FiO2 100.0 Tidal Volume 450 PEEP 5 Sodium 137 140.0 Potassium 4.6 Chloride 95 L 112.0 H Carbon Dioxide 35 H Anion Gap 12 BUN 22 H Creatinine 0.8 Est GFR ( Amer) > 60 Est GFR (Non-Af Amer) > 60 Random Glucose 140 H Lactic Acid Calcium 8.2 L Phosphorus Magnesium Total Bilirubin 0.9 AST 19 ALT 10 L D Alkaline Phosphatase 127 H Total Protein 7.9 Albumin 3.1 L Globulin 4.9 H Albumin/Globulin Ratio 0.6 L Arterial Blood Potassium 2.9 L Urine Color Urine Clarity Urine pH Ur Specific [place] Urine Protein Urine Glucose (UA) Urine Ketones Urine Blood Urine Nitrate Urine Bilirubin Urine Urobilinogen Ur Leukocyte Esterase Urine WBC (Auto) Urine RBC (Auto) Ur Squamous Epith Cells Urine Bacteria Granular Casts (Auto) Influenza Typ A,B (EIA) 03/01/18 03/01/18 03/02/18 20:39 22:46 00:21 WBC RBC Hgb Hct MCV MCH MCHC RDW Plt Count MPV Neut % (Auto) Lymph % (Auto) Morrison % (Auto) Eos % (Auto) Baso % (Auto) Neut # (Auto) Lymph # (Auto) Morrison # (Auto) Eos # (Auto) Baso # (Auto) Neutrophils % (Manual) Band Neutrophils % Lymphocytes % (Manual) Monocytes % (Manual) Toxic Granulation Platelet Estimate Large Platelets Giant Platelets Polychromasia Hypochromasia (manual) Anisocytosis (manual) Puncture Site Lb pCO2 51 H pO2 75 L HCO3 26.9 ABG pH 7.36 ABG Total CO2 30.4 H ABG O2 Saturation 97.5 ABG Base Excess 2.6 ABG Hemoglobin 10.8 L ABG Carboxyhemoglobin 2.3 H POC ABG HHb (Measured) 2.4 ABG Methemoglobin 1.2 [place]reket Test Na ABG Potassium A-a O2 Difference 146.0 Respiratory Index 1.9 Hgb O2 Saturation 94.1 L Glucose Lactate Vent Mode Prvc Mechanical Rate 20 FiO2 40.0 Tidal Volume 450 PEEP 5 Sodium Potassium Chloride Carbon Dioxide Anion Gap BUN Creatinine Est GFR ( Amer) Est GFR (Non-Af Amer) Random Glucose Lactic Acid 1.3 Calcium Phosphorus Magnesium Total Bilirubin AST ALT Alkaline Phosphatase Total Protein Albumin Globulin Albumin/Globulin Ratio Arterial Blood Potassium Urine Color Straw Urine Clarity Clear Urine pH 7.0 Ur Specific [place] 1.006 Urine Protein Negative Urine Glucose (UA) Normal Urine Ketones Negative Urine Blood 1+ H Urine Nitrate Negative Urine Bilirubin Negative Urine Urobilinogen Normal Ur Leukocyte Esterase Neg Urine WBC (Auto) 3 Urine RBC (Auto) 7 H Ur Squamous Epith Cells < 1 Urine Bacteria Rare Granular Casts (Auto) 4 Influenza Typ A,B (EIA) 03/02/18 03/02/18 03/02/18 00:25 04:20 06:17 WBC 20.4 H RBC 3.64 L Hgb 10.9 L Hct 33.5 L MCV 92.0 MCH 29.9 MCHC 32.5 L RDW 14.6 H Plt Count 357 MPV 7.6 Neut % (Auto) 95.6 H Lymph % (Auto) 1.4 L Morrison % (Auto) 2.9 Eos % (Auto) 0.0 Baso % (Auto) 0.1 Neut # (Auto) 19.4 H Lymph # (Auto) 0.3 L Morrison # (Auto) 0.6 Eos # (Auto) 0.0 Baso # (Auto) 0.0 Neutrophils % (Manual) 81 H Band Neutrophils % 15 H* Lymphocytes % (Manual) 1 L Monocytes % (Manual) 3 Toxic Granulation Present Platelet Estimate Normal Large Platelets Present Giant Platelets Present Polychromasia Slight Hypochromasia (manual) Slight Anisocytosis (manual) Slight Puncture Site Lb pCO2 56 H pO2 66 L HCO3 27.1 ABG pH 7.34 L ABG Total CO2 31.9 H ABG O2 Saturation 96.0 ABG Base Excess 3.0 ABG Hemoglobin 13.8 ABG Carboxyhemoglobin 2.4 H POC ABG HHb (Measured) 3.9 ABG Methemoglobin 1.1 [place] Test Na ABG Potassium A-a O2 Difference 149.0 Respiratory Index 2.3 Hgb O2 Saturation 92.6 L Glucose Lactate Vent Mode Prvc Mechanical Rate 20 FiO2 40.0 Tidal Volume 450 PEEP 5 Sodium Potassium Chloride Carbon Dioxide Anion Gap BUN Creatinine Est GFR ( Amer) Est GFR (Non-Af Amer) Random Glucose Lactic Acid Calcium Phosphorus Magnesium Total Bilirubin AST ALT Alkaline Phosphatase Total Protein Albumin Globulin Albumin/Globulin Ratio Arterial Blood Potassium Urine Color Urine Clarity Urine pH Ur Specific [place] Urine Protein Urine Glucose (UA) Urine Ketones Urine Blood Urine Nitrate Urine Bilirubin Urine Urobilinogen Ur Leukocyte Esterase Urine WBC (Auto) Urine RBC (Auto) Ur Squamous Epith Cells Urine Bacteria Granular Casts (Auto) Influenza Typ A,B (EIA) Negative for flu a/b 03/02/18 06:17 WBC RBC Hgb Hct MCV MCH MCHC RDW Plt Count MPV Neut % (Auto) Lymph % (Auto) [place] % (Auto) Eos % (Auto) Baso % (Auto) Neut # (Auto) Lymph # (Auto) [place] # (Auto) Eos # (Auto) Baso # (Auto) Neutrophils % (Manual) Band Neutrophils % Lymphocytes % (Manual) Monocytes % (Manual) Toxic Granulation Platelet Estimate Large Platelets Giant Platelets Polychromasia Hypochromasia (manual) Anisocytosis (manual) Puncture Site pCO2 pO2 HCO3 ABG pH ABG Total CO2 ABG O2 Saturation ABG Base Excess ABG Hemoglobin ABG Carboxyhemoglobin POC ABG HHb (Measured) ABG Methemoglobin Bereket Test ABG Potassium A-a O2 Difference Respiratory Index Hgb O2 Saturation Glucose Lactate Vent Mode Mechanical Rate FiO2 Tidal Volume PEEP Sodium 135 Potassium 2.9 L Chloride 101 Carbon Dioxide 28 Anion Gap 10 BUN 12 Creatinine 0.4 L Est GFR ( Amer) > 60 Est GFR (Non-Af Amer) > 60 Random Glucose 73 L Lactic Acid Calcium 7.2 L Phosphorus 2.1 L Magnesium 1.5 L Total Bilirubin 1.1 AST 27 ALT 12 L Alkaline Phosphatase 111 Total Protein 6.5 Albumin 2.5 L Globulin 4.0 H Albumin/Globulin Ratio 0.6 L Arterial Blood Potassium Urine Color Urine Clarity Urine pH Ur Specific [place] Urine Protein Urine Glucose (UA) Urine Ketones Urine Blood Urine Nitrate Urine Bilirubin Urine Urobilinogen Ur Leukocyte Esterase Urine WBC (Auto) Urine RBC (Auto) Ur Squamous Epith Cells Urine Bacteria Granular Casts (Auto) Influenza Typ A,B (EIA) Assessment & Plan (1) Septic shock Status: Acute (2) Altered mental status Status: Acute (3) Pneumonia Status: Acute (4) Respiratory failure requiring intubation Status: Acute (5) COPD exacerbation Status: Acute (6) Cachexia Status: Acute (7) Cholelithiases Status: Acute (8) Alzheimer disease Status: Chronic - Assessment and Plan (Free Text) Assessment: 72 YO MALE WITH A HX MULT MED PROBS, ADM S/P RECENT ACUTE CHOLECYSTITIS, WITH A CUTE ON CHRONIC RESP FAILURE REQUIRING INTUBATION., +BILAT PNA ?ASP. ON IV LEVO TAPER TOLERATED. CONT AC SUPPORT, TAPER FIO2 TOLERATED., CONT PULM TOILET., NEB BD., MONITOR O2 SAT. CONT AB PER ID. CXR REVIEWED. GI/DVT PROPHYLAXIS. PROG GRIM. DISCUSSED WITH STAFF AT LENGTH AND FAMILY AT BEDSIDE.
--- NOTE | 2018-03-02 17:04 | CP.CCUPN ---
CCU Subjective - Physician Review Events Since Last Encounter (Free Text): 03/02/18 16:58 72yo M. PMHx COPD, Alzheimer's, CHF, arthritis. recent hospitalizaion for cholelithiasis and pneumonia. Discharged home receiving IV abx. presents back with worsening pneumonia, and progression into septic shock. Intubated in field at home. alert on vent. CCU Objective - Vital Signs / Intake & Output Vital Signs (Last 4 hours): Vital Signs Temp Pulse Resp BP Pulse Ox 03/02/18 16:48 96/48 L 03/02/18 16:15 91 H 20 100 03/02/18 16:00 99.0 F 93 H 20 100 03/02/18 15:58 90 20 93/48 L 100 03/02/18 15:45 88 20 100 03/02/18 15:30 89 20 100 03/02/18 15:28 88 20 90/45 L 100 03/02/18 15:15 88 20 100 03/02/18 15:00 89 20 100 03/02/18 14:59 90 20 83/39 L 100 03/02/18 14:58 91 H 20 100 03/02/18 14:45 99 H 20 100 03/02/18 14:30 99 H 20 100 03/02/18 14:28 100 H 20 100/59 L 100 03/02/18 14:15 101 H 20 100 03/02/18 14:00 103 H 22 100 03/02/18 13:58 124 H 21 98/60 L 100 03/02/18 13:30 105 H 20 100 03/02/18 13:28 104 H 15 107/61 100 03/02/18 13:15 105 H 21 100 03/02/18 13:00 102 H 20 100 Intake and Output (Last 8hrs): Intake & Output 03/02/18 03/02/18 03/02/18 06:59 14:59 22:59 Intake Total 1915.8 2080.9 805.6 Output Total 1575 680 175 Balance 340.8 1400.9 630.6 Weight 119 lb 7.849 oz Intake: IV 4 404 240 Intake, IV Amount 1911.8 1676.9 565.6 R UA PICC 211.8 427.8 120 Right Forearm 450 300 Right Forearm 2 124 Right PICC 49.1 21.6 right arm PICC 1700 750 Oral 0 0 Output: Urine 1575 680 175 Urethral (Sebastian) 1575 680 175 Other: # Bowel Movements 0 0 - Physical Exam Head: Positive for: Atraumatic, Normocephalic Pupils: Positive for: PERRL Extroacular Muscles: Positive for: EOMI Conjunctiva: Positive for: Normal Ears: Positive for: Normal Mouth: Positive for: Moist Mucous Membranes Neck: Positive for: Normal Range of Motion Respiratory/Chest: Positive for: Good Air Exchange, Rhonchi Cardiovascular: Positive for: Regular Rate and Rhythm Abdomen: Positive for: Normal Bowel Sounds. Negative for: Tenderness, Distention Psychiatric: Positive for: Alert - Medications Active Medications: Active Medications Generic Name Dose Route Start Last Admin Trade Name Freq PRN Reason Stop Dose Admin Acetaminophen 650 mg 03/01/18 21:09 03/02/18 07:53 Tylenol 650mg/20.3ml Solution Ud NG 650 mg Q6 PRN Administration Fever >100.4 F Albuterol/Ipratropium 3 ml 03/02/18 14:00 Duoneb 3 Mg/0.5 Mg (3 Ml) Ud INH RQ6 VELMA Famotidine 20 mg 03/01/18 22:15 03/02/18 09:18 Pepcid IVP 20 mg Q12 VELMA Administration Heparin Sodium (Porcine) 5,000 units 03/01/18 22:00 03/02/18 13:55 Heparin SC 5,000 units Q8 VELMA Administration Hydrocortisone Sodium Succinate 100 mg 03/02/18 10:15 03/02/18 12:14 Solu-Cortef IV 100 mg Q8H VELMA Administration Norepinephrine Bitartrate 4 mg 254 mls @ 15.24 mls/hr 03/01/18 19:08 03/02/18 16:48 / Sodium Chloride IV 16 mcg/min .[id number] PRN 60.96 mls/hr TITRATE PER MD ORDER Administration Protocol 4 MCG/MIN Piperacillin Sod/Tazobactam Sod 3.375 gm in 50 mls @ 100 mls/hr 03/01/18 20:30 03/02/18 12:13 Zosyn 3.375 Gm Iv Premix IVPB 100 mls/hr Q8H VELMA Administration Protocol Vancomycin HCl 1 gm/ Sodium 250 mls @ 166.7 mls/hr 03/02/18 18:00 Chloride IVPB Q24H VELMA Protocol Fentanyl Citrate 2,500 mcg/ 250 mls @ 6.8 mls/hr 03/02/18 05:30 03/02/18 13:00 Sodium Chloride IV 2 mcg/kg/hr .Q24H VELMA 13.61 mls/hr Titration Protocol 1 MCG/KG/HR Lactated Ringer's 1,000 mls @ 150 mls/hr 03/02/18 08:30 03/02/18 09:18 Lactated Ringer's IV 150 mls/hr .[id number] VELMA Administration Potassium Phosphate 15 mmole/ 255 mls @ 42.5 mls/hr 03/02/18 14:30 03/02/18 15:33 Dextrose IVPB 03/02/18 20:29 42.5 mls/hr ONCE ONE Administration - Patient Studies Lab Studies: Microbiology Studies 03/02/18 00:20 Gram Stain - Final Sputum Lab Studies 03/02/18 03/02/18 03/02/18 Range/Units 06:17 06:17 04:20 WBC 20.4 H (4.8-10.8) K/uL RBC 3.64 L (4.40-5.90) Mil/uL Hgb 10.9 L (12.0-18.0) g/dL Hct 33.5 L (35.0-51.0) % MCV 92.0 (80.0-94.0) fL MCH 29.9 (27.0-31.0) pg MCHC 32.5 L (33.0-37.0) g/dL RDW 14.6 H (11.5-14.5) % Plt Count 357 (130-400) K/uL MPV 7.6 (7.2-11.7) fL Neut % (Auto) 95.6 H (50.0-75.0) % Lymph % (Auto) 1.4 L (20.0-40.0) % [place] % (Auto) 2.9 (0.0-10.0) % Eos % (Auto) 0.0 (0.0-4.0) % Baso % (Auto) 0.1 (0.0-2.0) % Neut # (Auto) 19.4 H (1.8-7.0) K/uL Lymph # (Auto) 0.3 L (1.0-4.3) K/uL [place] # (Auto) 0.6 (0.0-0.8) K/uL Eos # (Auto) 0.0 (0.0-0.7) K/uL Baso # (Auto) 0.0 (0.0-0.2) K/uL Neutrophils % (Manual) 81 H (50-75) % Band Neutrophils % 15 H* (0-2) % Lymphocytes % (Manual) 1 L (20-40) % Monocytes % (Manual) 3 (0-10) % Toxic Granulation Present Platelet Estimate Normal (NORMAL) Large Platelets Present Giant Platelets Present Polychromasia Slight Hypochromasia (manual) Slight Anisocytosis (manual) Slight Puncture Site Lb pCO2 56 H (35-45) mm/Hg pO2 66 L (80-100) mm/Hg HCO3 27.1 (21-28) mmol/L ABG pH 7.34 L (7.35-7.45) ABG Total CO2 31.9 H (22-28) mmol/L ABG O2 Saturation 96.0 (95-98) % ABG Base Excess 3.0 (-2.0-3.0) mmol/L ABG Hemoglobin 13.8 (11.7-17.4) g/dL ABG Carboxyhemoglobin 2.4 H (0.5-1.5) % POC ABG HHb (Measured) 3.9 (0.0-5.0) % ABG Methemoglobin 1.1 (0.0-3.0) % [place] Test Na ABG Potassium (3.6-5.2) mmol/L A-a O2 Difference 149.0 mm/Hg Respiratory Index 2.3 Hgb O2 Saturation 92.6 L (95.0-98.0) % Glucose (75-110) mg/dl Lactate (0.7-2.1) mmol/L Vent Mode Prvc Mechanical Rate 20 FiO2 40.0 % Tidal Volume 450 PEEP 5 Sodium 135 (132-148) mmol/L Potassium 2.9 L (3.6-5.2) mmol/L Chloride 101 (98-107) mmol/L Carbon Dioxide 28 (22-30) mmol/L Anion Gap 10 (10-20) BUN 12 (9-20) mg/dL Creatinine 0.4 L (0.8-1.5) mg/dL Est GFR ( Amer) > 60 Est GFR (Non-Af Amer) > 60 Random Glucose 73 L (75-110) mg/dL Lactic Acid (0.7-2.1) mmol/L Calcium 7.2 L (8.6-10.4) mg/dl Phosphorus 2.1 L (2.5-4.5) mg/dL Magnesium 1.5 L (1.6-2.3) mg/dL Total Bilirubin 1.1 (0.2-1.3) mg/dL AST 27 (17-59) U/L ALT 12 L (21-72) U/L Alkaline Phosphatase 111 (38-126) U/L Total Protein 6.5 (6.3-8.3) g/dL Albumin 2.5 L (3.5-5.0) g/dL Globulin 4.0 H (2.2-3.9) gm/dL Albumin/Globulin Ratio 0.6 L (1.0-2.1) Arterial Blood Potassium (3.6-5.2) mmol/L Urine Color (YELLOW) Urine Clarity (Clear) Urine pH (5.0-8.0) Ur Specific [place] (1.003-1.030) Urine Protein (NEGATIVE) mg/dL Urine Glucose (UA) (Normal) mg/dL Urine Ketones (NEGATIVE) mg/dL Urine Blood (NEGATIVE) Urine Nitrate (NEGATIVE) Urine Bilirubin (NEGATIVE) Urine Urobilinogen (0.2-1.0) mg/dL Ur Leukocyte Esterase (Negative) Mehrdad/uL Urine WBC (Auto) (0-5) /hpf Urine RBC (Auto) (0-3) /hpf Ur Squamous Epith Cells (0-5) /hpf Urine Bacteria (<OCC) Granular Casts (Auto) (0-1) /lpf Influenza Typ A,B (EIA) (NEGATIVE) 03/02/18 03/02/18 03/01/18 Range/Units 00:25 00:21 22:46 WBC (4.8-10.8) K/uL RBC (4.40-5.90) Mil/uL Hgb (12.0-18.0) g/dL Hct (35.0-51.0) % MCV (80.0-94.0) fL MCH (27.0-31.0) pg MCHC (33.0-37.0) g/dL RDW (11.5-14.5) % Plt Count (130-400) K/uL MPV (7.2-11.7) fL Neut % (Auto) (50.0-75.0) % Lymph % (Auto) (20.0-40.0) % [place] % (Auto) (0.0-10.0) % Eos % (Auto) (0.0-4.0) % Baso % (Auto) (0.0-2.0) % Neut # (Auto) (1.8-7.0) K/uL Lymph # (Auto) (1.0-4.3) K/uL [place] # (Auto) (0.0-0.8) K/uL Eos # (Auto) (0.0-0.7) K/uL Baso # (Auto) (0.0-0.2) K/uL Neutrophils % (Manual) (50-75) % Band Neutrophils % (0-2) % Lymphocytes % (Manual) (20-40) % Monocytes % (Manual) (0-10) % Toxic Granulation Platelet Estimate (NORMAL) Large Platelets Giant Platelets Polychromasia Hypochromasia (manual) Anisocytosis (manual) Puncture Site Lb pCO2 51 H (35-45) mm/Hg pO2 75 L (80-100) mm/Hg HCO3 26.9 (21-28) mmol/L ABG pH 7.36 (7.35-7.45) ABG Total CO2 30.4 H (22-28) mmol/L ABG O2 Saturation 97.5 (95-98) % ABG Base Excess 2.6 (-2.0-3.0) mmol/L ABG Hemoglobin 10.8 L (11.7-17.4) g/dL ABG Carboxyhemoglobin 2.3 H (0.5-1.5) % POC ABG HHb (Measured) 2.4 (0.0-5.0) % ABG Methemoglobin 1.2 (0.0-3.0) % [place] Test Na ABG Potassium (3.6-5.2) mmol/L A-a O2 Difference 146.0 mm/Hg Respiratory Index 1.9 Hgb O2 Saturation 94.1 L (95.0-98.0) % Glucose (75-110) mg/dl Lactate (0.7-2.1) mmol/L Vent Mode Prvc Mechanical Rate 20 FiO2 40.0 % Tidal Volume 450 PEEP 5 Sodium (132-148) mmol/L Potassium (3.6-5.2) mmol/L Chloride (98-107) mmol/L Carbon Dioxide (22-30) mmol/L Anion Gap (10-20) BUN (9-20) mg/dL Creatinine (0.8-1.5) mg/dL Est GFR ( Amer) Est GFR (Non-Af Amer) Random Glucose (75-110) mg/dL Lactic Acid 1.3 (0.7-2.1) mmol/L Calcium (8.6-10.4) mg/dl Phosphorus (2.5-4.5) mg/dL Magnesium (1.6-2.3) mg/dL Total Bilirubin (0.2-1.3) mg/dL AST (17-59) U/L ALT (21-72) U/L Alkaline Phosphatase (38-126) U/L Total Protein (6.3-8.3) g/dL Albumin (3.5-5.0) g/dL Globulin (2.2-3.9) gm/dL Albumin/Globulin Ratio (1.0-2.1) Arterial Blood Potassium (3.6-5.2) mmol/L Urine Color (YELLOW) Urine Clarity (Clear) Urine pH (5.0-8.0) Ur Specific [place] (1.003-1.030) Urine Protein (NEGATIVE) mg/dL Urine Glucose (UA) (Normal) mg/dL Urine Ketones (NEGATIVE) mg/dL Urine Blood (NEGATIVE) Urine Nitrate (NEGATIVE) Urine Bilirubin (NEGATIVE) Urine Urobilinogen (0.2-1.0) mg/dL Ur Leukocyte Esterase (Negative) Mehrdad/uL Urine WBC (Auto) (0-5) /hpf Urine RBC (Auto) (0-3) /hpf Ur Squamous Epith Cells (0-5) /hpf Urine Bacteria (<OCC) Granular Casts (Auto) (0-1) /lpf Influenza Typ A,B (EIA) Negative for flu a/b (NEGATIVE) 03/01/18 03/01/18 03/01/18 Range/Units 20:39 19:10 19:09 WBC (4.8-10.8) K/uL RBC (4.40-5.90) Mil/uL Hgb (12.0-18.0) g/dL Hct (35.0-51.0) % MCV (80.0-94.0) fL MCH (27.0-31.0) pg MCHC (33.0-37.0) g/dL RDW (11.5-14.5) % Plt Count (130-400) K/uL MPV (7.2-11.7) fL Neut % (Auto) (50.0-75.0) % Lymph % (Auto) (20.0-40.0) % [place] % (Auto) (0.0-10.0) % Eos % (Auto) (0.0-4.0) % Baso % (Auto) (0.0-2.0) % Neut # (Auto) (1.8-7.0) K/uL Lymph # (Auto) (1.0-4.3) K/uL [place] # (Auto) (0.0-0.8) K/uL Eos # (Auto) (0.0-0.7) K/uL Baso # (Auto) (0.0-0.2) K/uL Neutrophils % (Manual) (50-75) % Band Neutrophils % (0-2) % Lymphocytes % (Manual) (20-40) % Monocytes % (Manual) (0-10) % Toxic Granulation Platelet Estimate (NORMAL) Large Platelets Giant Platelets Polychromasia Hypochromasia (manual) Anisocytosis (manual) Puncture Site Rfemoral pCO2 55 H (35-45) mm/Hg pO2 432 H (80-100) mm/Hg HCO3 24.8 (21-28) mmol/L ABG pH 7.30 L (7.35-7.45) ABG Total CO2 28.8 H (22-28) mmol/L ABG O2 Saturation 100.4 H (95-98) % ABG Base Excess -0.3 (-2.0-3.0) mmol/L ABG Hemoglobin (11.7-17.4) g/dL ABG Carboxyhemoglobin (0.5-1.5) % POC ABG HHb (Measured) (0.0-5.0) % ABG Methemoglobin (0.0-3.0) % [place] Test Neg ABG Potassium 2.9 L (3.6-5.2) mmol/L A-a O2 Difference 212.0 mm/Hg Respiratory Index 0.5 Hgb O2 Saturation (95.0-98.0) % Glucose 103 (75-110) mg/dl Lactate 1.1 (0.7-2.1) mmol/L Vent Mode Prvc Mechanical Rate 20 FiO2 100.0 % Tidal Volume 450 PEEP 5 Sodium 140.0 137 (132-148) mmol/L Potassium 4.6 (3.6-5.2) mmol/L Chloride 112.0 H 95 L (98-107) mmol/L Carbon Dioxide 35 H (22-30) mmol/L Anion Gap 12 (10-20) BUN 22 H (9-20) mg/dL Creatinine 0.8 (0.8-1.5) mg/dL Est GFR ( Amer) > 60 Est GFR (Non-Af Amer) > 60 Random Glucose 140 H (75-110) mg/dL Lactic Acid (0.7-2.1) mmol/L Calcium 8.2 L (8.6-10.4) mg/dl Phosphorus (2.5-4.5) mg/dL Magnesium (1.6-2.3) mg/dL Total Bilirubin 0.9 (0.2-1.3) mg/dL AST 19 (17-59) U/L ALT 10 L D (21-72) U/L Alkaline Phosphatase 127 H (38-126) U/L Total Protein 7.9 (6.3-8.3) g/dL Albumin 3.1 L (3.5-5.0) g/dL Globulin 4.9 H (2.2-3.9) gm/dL Albumin/Globulin Ratio 0.6 L (1.0-2.1) Arterial Blood Potassium 2.9 L (3.6-5.2) mmol/L Urine Color Straw (YELLOW) Urine Clarity Clear (Clear) Urine pH 7.0 (5.0-8.0) Ur Specific [place] 1.006 (1.003-1.030) Urine Protein Negative (NEGATIVE) mg/dL Urine Glucose (UA) Normal (Normal) mg/dL Urine Ketones Negative (NEGATIVE) mg/dL Urine Blood 1+ H (NEGATIVE) Urine Nitrate Negative (NEGATIVE) Urine Bilirubin Negative (NEGATIVE) Urine Urobilinogen Normal (0.2-1.0) mg/dL Ur Leukocyte Esterase Neg (Negative) Mehrdad/uL Urine WBC (Auto) 3 (0-5) /hpf Urine RBC (Auto) 7 H (0-3) /hpf Ur Squamous Epith Cells < 1 (0-5) /hpf Urine Bacteria Rare (<OCC) Granular Casts (Auto) 4 (0-1) /lpf Influenza Typ A,B (EIA) (NEGATIVE) 03/01/18 Range/Units 19:09 WBC 19.1 H (4.8-10.8) K/uL RBC 4.06 L (4.40-5.90) Mil/uL Hgb 11.9 L (12.0-18.0) g/dL Hct 36.8 (35.0-51.0) % MCV 90.8 (80.0-94.0) fL MCH 29.3 (27.0-31.0) pg MCHC 32.3 L (33.0-37.0) g/dL RDW 14.9 H (11.5-14.5) % Plt Count 423 H (130-400) K/uL MPV 7.3 (7.2-11.7) fL Neut % (Auto) 93.2 H (50.0-75.0) % Lymph % (Auto) 1.4 L (20.0-40.0) % [place] % (Auto) 4.9 (0.0-10.0) % Eos % (Auto) 0.0 (0.0-4.0) % Baso % (Auto) 0.5 (0.0-2.0) % Neut # (Auto) 17.8 H (1.8-7.0) K/uL Lymph # (Auto) 0.3 L (1.0-4.3) K/uL [place] # (Auto) 0.9 H (0.0-0.8) K/uL Eos # (Auto) 0.0 (0.0-0.7) K/uL Baso # (Auto) 0.1 (0.0-0.2) K/uL Neutrophils % (Manual) 85 H (50-75) % Band Neutrophils % 6 H (0-2) % Lymphocytes % (Manual) 1 L (20-40) % Monocytes % (Manual) 8 (0-10) % Toxic Granulation Present Platelet Estimate Slightly increased H (NORMAL) Large Platelets Present Giant Platelets Polychromasia Hypochromasia (manual) Slight Anisocytosis (manual) Slight Puncture Site pCO2 (35-45) mm/Hg pO2 (80-100) mm/Hg HCO3 (21-28) mmol/L ABG pH (7.35-7.45) ABG Total CO2 (22-28) mmol/L ABG O2 Saturation (95-98) % ABG Base Excess (-2.0-3.0) mmol/L ABG Hemoglobin (11.7-17.4) g/dL ABG Carboxyhemoglobin (0.5-1.5) % POC ABG HHb (Measured) (0.0-5.0) % ABG Methemoglobin (0.0-3.0) % [place] Test ABG Potassium (3.6-5.2) mmol/L A-a O2 Difference mm/Hg Respiratory Index Hgb O2 Saturation (95.0-98.0) % Glucose (75-110) mg/dl Lactate (0.7-2.1) mmol/L Vent Mode Mechanical Rate FiO2 % Tidal Volume PEEP Sodium (132-148) mmol/L Potassium (3.6-5.2) mmol/L Chloride (98-107) mmol/L Carbon Dioxide (22-30) mmol/L Anion Gap (10-20) BUN (9-20) mg/dL Creatinine (0.8-1.5) mg/dL Est GFR ( Amer) Est GFR (Non-Af Amer) Random Glucose (75-110) mg/dL Lactic Acid (0.7-2.1) mmol/L Calcium (8.6-10.4) mg/dl Phosphorus (2.5-4.5) mg/dL Magnesium (1.6-2.3) mg/dL Total Bilirubin (0.2-1.3) mg/dL AST (17-59) U/L ALT (21-72) U/L Alkaline Phosphatase (38-126) U/L Total Protein (6.3-8.3) g/dL Albumin (3.5-5.0) g/dL Globulin (2.2-3.9) gm/dL Albumin/Globulin Ratio (1.0-2.1) Arterial Blood Potassium (3.6-5.2) mmol/L Urine Color (YELLOW) Urine Clarity (Clear) Urine pH (5.0-8.0) Ur Specific [place] (1.003-1.030) Urine Protein (NEGATIVE) mg/dL Urine Glucose (UA) (Normal) mg/dL Urine Ketones (NEGATIVE) mg/dL Urine Blood (NEGATIVE) Urine Nitrate (NEGATIVE) Urine Bilirubin (NEGATIVE) Urine Urobilinogen (0.2-1.0) mg/dL Ur Leukocyte Esterase (Negative) Mehrdad/uL Urine WBC (Auto) (0-5) /hpf Urine RBC (Auto) (0-3) /hpf Ur Squamous Epith Cells (0-5) /hpf Urine Bacteria (<OCC) Granular Casts (Auto) (0-1) /lpf Influenza Typ A,B (EIA) (NEGATIVE) Laboratory Results - last 24 hr 03/01/18 03/01/18 03/01/18 19:09 19:09 19:10 WBC 19.1 H RBC 4.06 L Hgb 11.9 L Hct 36.8 MCV 90.8 MCH 29.3 MCHC 32.3 L RDW 14.9 H Plt Count 423 H MPV 7.3 Neut % (Auto) 93.2 H Lymph % (Auto) 1.4 L [place] % (Auto) 4.9 Eos % (Auto) 0.0 Baso % (Auto) 0.5 Neut # (Auto) 17.8 H Lymph # (Auto) 0.3 L [place] # (Auto) 0.9 H Eos # (Auto) 0.0 Baso # (Auto) 0.1 Neutrophils % (Manual) 85 H Band Neutrophils % 6 H Lymphocytes % (Manual) 1 L Monocytes % (Manual) 8 Toxic Granulation Present Platelet Estimate Slightly increased H Large Platelets Present Giant Platelets Polychromasia Hypochromasia (manual) Slight Anisocytosis (manual) Slight Puncture Site Rfemoral pCO2 55 H pO2 432 H HCO3 24.8 ABG pH 7.30 L ABG Total CO2 28.8 H ABG O2 Saturation 100.4 H ABG Base Excess -0.3 ABG Hemoglobin ABG Carboxyhemoglobin POC ABG HHb (Measured) ABG Methemoglobin [place] Test Neg ABG Potassium 2.9 L A-a O2 Difference 212.0 Respiratory Index 0.5 Hgb O2 Saturation Glucose 103 Lactate 1.1 Vent Mode Prvc Mechanical Rate 20 FiO2 100.0 Tidal Volume 450 PEEP 5 Sodium 137 140.0 Potassium 4.6 Chloride 95 L 112.0 H Carbon Dioxide 35 H Anion Gap 12 BUN 22 H Creatinine 0.8 Est GFR ( Amer) > 60 Est GFR (Non-Af Amer) > 60 Random Glucose 140 H Lactic Acid Calcium 8.2 L Phosphorus Magnesium Total Bilirubin 0.9 AST 19 ALT 10 L D Alkaline Phosphatase 127 H Total Protein 7.9 Albumin 3.1 L Globulin 4.9 H Albumin/Globulin Ratio 0.6 L Arterial Blood Potassium 2.9 L Urine Color Urine Clarity Urine pH Ur Specific [place] Urine Protein Urine Glucose (UA) Urine Ketones Urine Blood Urine Nitrate Urine Bilirubin Urine Urobilinogen Ur Leukocyte Esterase Urine WBC (Auto) Urine RBC (Auto) Ur Squamous Epith Cells Urine Bacteria Granular Casts (Auto) Influenza Typ A,B (EIA) 03/01/18 03/01/18 03/02/18 20:39 22:46 00:21 WBC RBC Hgb Hct MCV MCH MCHC RDW Plt Count MPV Neut % (Auto) Lymph % (Auto) [place] % (Auto) Eos % (Auto) Baso % (Auto) Neut # (Auto) Lymph # (Auto) [place] # (Auto) Eos # (Auto) Baso # (Auto) Neutrophils % (Manual) Band Neutrophils % Lymphocytes % (Manual) Monocytes % (Manual) Toxic Granulation Platelet Estimate Large Platelets Giant Platelets Polychromasia Hypochromasia (manual) Anisocytosis (manual) Puncture Site Lb pCO2 51 H pO2 75 L HCO3 26.9 ABG pH 7.36 ABG Total CO2 30.4 H ABG O2 Saturation 97.5 ABG Base Excess 2.6 ABG Hemoglobin 10.8 L ABG Carboxyhemoglobin 2.3 H POC ABG HHb (Measured) 2.4 ABG Methemoglobin 1.2 [place] Test Na ABG Potassium A-a O2 Difference 146.0 Respiratory Index 1.9 Hgb O2 Saturation 94.1 L Glucose Lactate Vent Mode Prvc Mechanical Rate 20 FiO2 40.0 Tidal Volume 450 PEEP 5 Sodium Potassium Chloride Carbon Dioxide Anion Gap BUN Creatinine Est GFR ( Amer) Est GFR (Non-Af Amer) Random Glucose Lactic Acid 1.3 Calcium Phosphorus Magnesium Total Bilirubin AST ALT Alkaline Phosphatase Total Protein Albumin Globulin Albumin/Globulin Ratio Arterial Blood Potassium Urine Color Straw Urine Clarity Clear Urine pH 7.0 Ur Specific [place] 1.006 Urine Protein Negative Urine Glucose (UA) Normal Urine Ketones Negative Urine Blood 1+ H Urine Nitrate Negative Urine Bilirubin Negative Urine Urobilinogen Normal Ur Leukocyte Esterase Neg Urine WBC (Auto) 3 Urine RBC (Auto) 7 H Ur Squamous Epith Cells < 1 Urine Bacteria Rare Granular Casts (Auto) 4 Influenza Typ A,B (EIA) 03/02/18 03/02/18 03/02/18 00:25 04:20 06:17 WBC 20.4 H RBC 3.64 L Hgb 10.9 L Hct 33.5 L MCV 92.0 MCH 29.9 MCHC 32.5 L RDW 14.6 H Plt Count 357 MPV 7.6 Neut % (Auto) 95.6 H Lymph % (Auto) 1.4 L [place] % (Auto) 2.9 Eos % (Auto) 0.0 Baso % (Auto) 0.1 Neut # (Auto) 19.4 H Lymph # (Auto) 0.3 L [place] # (Auto) 0.6 Eos # (Auto) 0.0 Baso # (Auto) 0.0 Neutrophils % (Manual) 81 H Band Neutrophils % 15 H* Lymphocytes % (Manual) 1 L Monocytes % (Manual) 3 Toxic Granulation Present Platelet Estimate Normal Large Platelets Present Giant Platelets Present Polychromasia Slight Hypochromasia (manual) Slight Anisocytosis (manual) Slight Puncture Site Lb pCO2 56 H pO2 66 L HCO3 27.1 ABG pH 7.34 L ABG Total CO2 31.9 H ABG O2 Saturation 96.0 ABG Base Excess 3.0 ABG Hemoglobin 13.8 ABG Carboxyhemoglobin 2.4 H POC ABG HHb (Measured) 3.9 ABG Methemoglobin 1.1 [place] Test Na ABG Potassium A-a O2 Difference 149.0 Respiratory Index 2.3 Hgb O2 Saturation 92.6 L Glucose Lactate Vent Mode Prvc Mechanical Rate 20 FiO2 40.0 Tidal Volume 450 PEEP 5 Sodium Potassium Chloride Carbon Dioxide Anion Gap BUN Creatinine Est GFR ( Amer) Est GFR (Non-Af Amer) Random Glucose Lactic Acid Calcium Phosphorus Magnesium Total Bilirubin AST ALT Alkaline Phosphatase Total Protein Albumin Globulin Albumin/Globulin Ratio Arterial Blood Potassium Urine Color Urine Clarity Urine pH Ur Specific [place] Urine Protein Urine Glucose (UA) Urine Ketones Urine Blood Urine Nitrate Urine Bilirubin Urine Urobilinogen Ur Leukocyte Esterase Urine WBC (Auto) Urine RBC (Auto) Ur Squamous Epith Cells Urine Bacteria Granular Casts (Auto) Influenza Typ A,B (EIA) Negative for flu a/b 03/02/18 06:17 WBC RBC Hgb Hct MCV MCH MCHC RDW Plt Count MPV Neut % (Auto) Lymph % (Auto) [place] % (Auto) Eos % (Auto) Baso % (Auto) Neut # (Auto) Lymph # (Auto) [place] # (Auto) Eos # (Auto) Baso # (Auto) Neutrophils % (Manual) Band Neutrophils % Lymphocytes % (Manual) Monocytes % (Manual) Toxic Granulation Platelet Estimate Large Platelets Giant Platelets Polychromasia Hypochromasia (manual) Anisocytosis (manual) Puncture Site pCO2 pO2 HCO3 ABG pH ABG Total CO2 ABG O2 Saturation ABG Base Excess ABG Hemoglobin ABG Carboxyhemoglobin POC ABG HHb (Measured) ABG Methemoglobin [place] Test ABG Potassium A-a O2 Difference Respiratory Index Hgb O2 Saturation Glucose Lactate Vent Mode Mechanical Rate FiO2 Tidal Volume PEEP Sodium 135 Potassium 2.9 L Chloride 101 Carbon Dioxide 28 Anion Gap 10 BUN 12 Creatinine 0.4 L Est GFR ( Amer) > 60 Est GFR (Non-Af Amer) > 60 Random Glucose 73 L Lactic Acid Calcium 7.2 L Phosphorus 2.1 L Magnesium 1.5 L Total Bilirubin 1.1 AST 27 ALT 12 L Alkaline Phosphatase 111 Total Protein 6.5 Albumin 2.5 L Globulin 4.0 H Albumin/Globulin Ratio 0.6 L Arterial Blood Potassium Urine Color Urine Clarity Urine pH Ur Specific [place] Urine Protein Urine Glucose (UA) Urine Ketones Urine Blood Urine Nitrate Urine Bilirubin Urine Urobilinogen Ur Leukocyte Esterase Urine WBC (Auto) Urine RBC (Auto) Ur Squamous Epith Cells Urine Bacteria Granular Casts (Auto) Influenza Typ A,B (EIA) Radiology Impressions: Radiology Impressions Chest X-Ray 03/01/18 18:59 IMPRESSION: No significant interval changes noted since the previous exam. The ET tube is seen at appropriate position. Head CT 03/01/18 19:47 IMPRESSION: No evidence of acute intracranial hemorrhage intracranial collection mass effect or midline shift. Moderate atrophy and moderate chronic microvascular white matter ischemic disease. Preliminary report was submitted by [facility] Radiology contains concordant findings. Chest X-Ray 03/02/18 07:00 IMPRESSION: Interval slight improvement in the left lung heterogeneous opacity since the previous exam. Appropriate position of the support devices. EKG/Cardiology Studies: Cardiology / EKG Studies 03/01/18 18:59 ELECTROCARDIOGRAM Stat Comment: Mode Of Transportation: BED Reason For Exam: Pneumonia Review of Systems - Review of Systems Systems not reviewed;Unavailable: Intubated Critical Care Progress Note - Ventilator Checklist Head of Bed 30 Degrees: Yes Daily Sedation Vacation: Yes Daily Assessment of Readiness to Wean: Yes Daily Spontaneous Breathing Trial: Yes PUD Prophalyxis: Yes DVT Prophylaxis: Yes Oral Care with Chlorhexidine Gluconate {CHG}: Yes - Nutrition Nutrition: Nutrition Category Date Time Status NPO Diet [DIET] Diets 03/02/18 Breakfast Active Assessment/Plan - Assessment and Plan (Free Text) Assessment: 72yo M. PMHx COPD, Alzheimer's, CHF, arthritis. recent hospitalizaion for cholelithiasis and pneumonia. Discharged home receiving IV abx. presents back with worsening pneumonia, and progression into septic shock. Intubated in field at home. Neuro: sedated with fentanyl gtt, patient still alert and cooperative. Pulm: acute respiratory failure with pneumonia and pulmonary edema. duonebs, steroids, abx. CV: septic shock on levophed, started stress dose steroids. Hem: no acute issues Renal: urine output wnl, LR@150. Will eventually need diuresis, for CHF exacerbation. Endo: no acute issues GI: NPO, tube feedings, pulmocare ID: septic shock from pneumonia, Zosyn and Vancomycin. DVT proph - heparin sq GI proph - pepcid sebastian for strict I/O's during acute illness Code status - full code Critical Care Time spent 35 minutes Multi-disciplinary rounds were performed with house staff, nursing, speech therapy, respiratory therapy, pharmacy and nutrition with integrated input from the primary team/attending and other consulting services. The documented time is cumulative and includes review of patient data/exams/labs/chart review and examination of the patient on rounds and throughout the day; time is exclusive of any procedures or teaching time.
--- NOTE | 2018-03-02 23:44 | CP.PCM.PN ---
Subjective - Date & Time of Evaluation Date of Evaluation: 03/02/18 Time of Evaluation: 23:44 - Subjective Subjective: tmax 100 ON VENTILATOR. SEEN BY PULMONARY. CT HEAD REVIEWED - NO ICH / OR INFARCT LABS: REVIEWED Objective - Vital Signs/Intake and Output Vital Signs (last 24 hours): Temp Pulse Resp BP Pulse Ox 98.5 F 88 20 94/52 L 100 03/02/18 20:00 03/02/18 22:39 03/02/18 22:39 03/02/18 22:39 03/02/18 22:39 Intake and Output: 03/02/18 03/03/18 18:59 06:59 Intake Total 3552.1 1209.7 Output Total 1255 400 Balance 2297.1 809.7 - Medications Medications: Current Medications Acetaminophen (Tylenol 650mg/20.3ml Solution Ud) 650 mg NG Q6 PRN PRN Reason: Fever >100.4 F Last Admin: 03/02/18 07:53 Dose: 650 mg Albuterol/Ipratropium (Duoneb 3 Mg/0.5 Mg (3 Ml) Ud) 3 ml INH RQ6 VELMA Last Admin: 03/02/18 20:17 Dose: 3 ml Famotidine (Pepcid) 20 mg IVP Q12 VELMA Last Admin: 03/02/18 21:14 Dose: 20 mg Heparin Sodium (Porcine) (Heparin) 5,000 units SC Q8 VELMA Last Admin: 03/02/18 21:14 Dose: 5,000 units Hydrocortisone Sodium Succinate (Solu-Cortef) 100 mg IV Q8H VELMA Last Admin: 03/02/18 17:15 Dose: 100 mg Norepinephrine Bitartrate 4 mg (/ Sodium Chloride) 254 mls @ 15.24 mls/hr IV .[id number] PRN; Protocol PRN Reason: TITRATE PER MD ORDER Last Admin: 03/02/18 21:19 Dose: 16 mcg/min, 60.96 mls/hr Piperacillin Sod/Tazobactam Sod (Zosyn 3.375 Gm Iv Premix) 3.375 gm in 50 mls @ 100 mls/hr IVPB Q8H VELMA; Protocol Last Admin: 03/02/18 20:45 Dose: 100 mls/hr Vancomycin HCl 1 gm/ Sodium (Chloride) 250 mls @ 166.7 mls/hr IVPB Q24H [facility]; Protocol Last Admin: 03/02/18 17:14 Dose: 166.7 mls/hr Fentanyl Citrate 2,500 mcg/ (Sodium Chloride) 250 mls @ 6.8 mls/hr IV .Q24H VELMA; Protocol Last Titration: 03/02/18 13:00 Dose: 2 mcg/kg/hr, 13.61 mls/hr Lactated Ringer's (Lactated Ringer's) 1,000 mls @ 150 mls/hr IV .[id number] [facility] Last Admin: 03/02/18 17:39 Dose: 150 mls/hr - Labs Labs: 03/02/18 06:17 03/02/18 06:17 - Constitutional Appears: No Acute Distress, Confused, Cachectic, Chronically Ill - Head Exam Head Exam: NORMAL INSPECTION - Eye Exam Eye Exam: PERRL - ENT Exam ENT Exam: Mucous Membranes Dry - Neck Exam Neck Exam: Normal Inspection - Respiratory Exam Respiratory Exam: Prolonged Expiratory Phase (RT> LEFT), Rhonchi - Cardiovascular Exam Cardiovascular Exam: Tachycardia, REGULAR RHYTHM, +S1, +S2 - GI/Abdominal Exam GI & Abdominal Exam: Soft, Normal Bowel Sounds. absent: Tenderness - Extremities Exam Extremities Exam: Normal Capillary Refill. absent: Calf Tenderness, Pedal Edema - Neurological Exam Neurological Exam: Altered, Awake - Psychiatric Exam Psychiatric exam: Flat Affect - Skin Skin Exam: Warm Assessment and Plan (1) Respiratory failure requiring intubation Status: Acute (2) Altered mental status Status: Acute (3) Pneumonia Status: Acute (4) Sepsis associated hypotension Status: Acute (5) Cholelithiases Status: Acute - Assessment and Plan (Free Text) Plan: CONTINUE IV ZOSYN 3.375GM IVPB Q 8HRLY 03/01/18. CONTINUE IV VANCOMYCIN 1GM IVPB [id number] 03/01/18. VANCO TROUGH PRIOR TO 4TH DOSE AND KEEP BETWEEN 10-20MG/DL. PROGNOSIS GUARDED. CASE DISCUSSED WITH STAFF.
[2018-03-03] MEDS: Albuterol-Ipratrop 3 mg / 0.5 (3 ml) UD INH SCH ×3 (01:21→19:58)
[2018-03-03] MEDS: Lactated Ringer's 1,000 ML IV SCH ×2 (01:23→02:30)
[2018-03-03] MEDS: Piperacill/Tazo 3.375gm in Dex 3.375 GM/50 ML BAG IVPB SCH ×3 (04:07→21:09)
[2018-03-03 04:45] LABS: ARTERIAL BLOOD GAS HCO3 31.6 mmol/L (21-28); ARTERIAL BLOOD GAS HEMOGLOBIN 13.8 g/dL (11.7-17.4); ARTERIAL BLOOD GAS O2 SAT 100.1 % (95-98); ARTERIAL BLOOD GAS PCO2 46 mm/Hg (35-45); ARTERIAL BLOOD GAS PH 7.47 (7.35-7.45); ARTERIAL BLOOD GAS PO2 210 mm/Hg (80-100); ARTERIAL BLOOD GAS TCO2 34.9 mmol/L (22-28)
[2018-03-03 05:43] LABS: BASO % 0.1 % (0.0-2.0); LYMPH # 0.3 K/uL (1.0-4.3); LYMPH % 1.6 % (20.0-40.0); MEAN CELL VOLUME 89.1 fL (80.0-94.0); MEAN CORPUSCULAR HEMOGLOBIN 29.5 pg (27.0-31.0); MEAN CORPUSCULAR HGB CONC 33.1 g/dL (33.0-37.0); MEAN PLATELET VOLUME 7.3 fL (7.2-11.7); MONO # 0.6 K/uL (0.0-0.8); MONO % 2.7 % (0.0-10.0); NEUT % 95.6 % (50.0-75.0); PLATELET COUNT 336 K/uL (130-400); RBC 3.39 Mil/uL (4.40-5.90); RED CELL DISTRIBUTION WIDTH 14.7 % (11.5-14.5); WHITE BLOOD COUNT 21.9 K/uL (4.8-10.8)
[2018-03-03 06:09] LABS: ALB/GLOB RATIO 0.6 (1.0-2.1); ALBUMIN 2.1 g/dL (3.5-5.0); ALT/SGPT 14 U/L (21-72); AST/SGOT 24 U/L (17-59); BLOOD UREA NITROGEN 7 mg/dL (9-20); CALCIUM 6.6 mg/dl (8.6-10.4); GFR NON-AFRICAN AMERICAN > 60
[2018-03-03] MEDS: Magnesium Sulfate 1 gm in D5W 1 GM/100 ML BAG IVPB SCH ×2 (07:59→08:47)
[2018-03-03] MEDS: Dexmedetomidine Hydrochloride 200 MCG in Sodium Chloride 0.9% 48 ML IV PRN ×4 (08:33→23:41)
[2018-03-03 09:00] LABS: LYMPHOCYTE 2 % (20-40); MONOCYTE 2 % (0-10); NEUTROPHIL 96 % (50-75); PLATELET ESTIMATE NORMAL (NORMAL); TOTAL CELLS COUNTED 100
[2018-03-03] MEDS ORDERED: Potassium Phosphate 15 MMOLE in Dextrose 5% In Water 250 ML IVPB ONE (09:00)
[2018-03-03 09:03] LABS: ANISOCYTOSIS SLIGHT; HYPOCHROMIC SLIGHT; POIKILOCYTOSIS SLIGHT
--- NOTE | 2018-03-03 10:03 | CP.CCUPN ---
CCU Subjective - Physician Review Subjective (Free Text): 03/03/18 10:02 Critical Care Progress Note for Dr. Galarza's service Patient seen and examined at bedside. 12 point ROS limited 2/2 patient clinical condition. VSS stable. Critical Care Time Spent (in minutes): 35 CCU Objective - Vital Signs / Intake & Output Vital Signs (Last 4 hours): Vital Signs Temp Pulse Resp BP Pulse Ox 03/03/18 09:16 91 H 20 77/49 L 100 03/03/18 09:00 93 H 20 99 03/03/18 08:39 92 H 20 102/58 L 100 03/03/18 08:16 88 20 79/42 L 99 03/03/18 08:00 968.7 F H 88 20 96 03/03/18 07:58 89 20 76/43 L 95 03/03/18 07:25 88 20 104/54 L 100 03/03/18 07:00 104 H 23 100 03/03/18 06:59 106 H 30 H 119/71 100 Intake and Output (Last 8hrs): Intake & Output 03/02/18 03/03/18 03/03/18 22:59 06:59 14:59 Intake Total 2790.9 2449.2 269.6 Output Total 1045 930 Balance 1745.9 1519.2 269.6 Weight 122 lb 4.8 oz Intake: IV 604 508 105 Intake, IV Amount 2126.9 1681.2 164.6 R UA PICC 442.5 234.0 3.8 Right Forearm 1300 1350 150 Right Forearm 2 298 0 Right PICC 86.4 97.2 10.8 Tube Feeding 60 180 Other 80 Output: Urine 1045 930 Urethral (Simmons) 1045 930 - Physical Exam Head: Positive for: Atraumatic, Normocephalic Pupils: Positive for: PERRL Extroacular Muscles: Positive for: EOMI Conjunctiva: Positive for: Normal Ears: Positive for: Normal Mouth: Positive for: Moist Mucous Membranes Neck: Positive for: Normal Range of Motion Respiratory/Chest: Positive for: Good Air Exchange, Rhonchi Cardiovascular: Positive for: Regular Rate and Rhythm Abdomen: Positive for: Normal Bowel Sounds. Negative for: Tenderness, Distention Psychiatric: Positive for: Alert - Medications Active Medications: Active Medications Generic Name Dose Route Start Last Admin Trade Name Freq PRN Reason Stop Dose Admin Acetaminophen 650 mg 03/01/18 21:09 03/02/18 07:53 Tylenol 650mg/20.3ml Solution Ud NG 650 mg Q6 PRN Administration Fever >100.4 F Albuterol/Ipratropium 3 ml 03/02/18 14:00 03/03/18 08:13 Duoneb 3 Mg/0.5 Mg (3 Ml) Ud INH 3 ml RQ6 VELMA Administration Famotidine 20 mg 03/01/18 22:15 03/03/18 09:22 Pepcid IVP 20 mg Q12 VELMA Administration Heparin Sodium (Porcine) 5,000 units 03/01/18 22:00 03/03/18 05:02 Heparin SC 5,000 units Q8 VELMA Administration Norepinephrine Bitartrate 4 mg 254 mls @ 15.24 mls/hr 03/01/18 19:08 03/03/18 09:40 / Sodium Chloride IV 3 mcg/min .[id number] PRN 11.43 mls/hr TITRATE PER MD ORDER Titration Protocol 4 MCG/MIN Piperacillin Sod/Tazobactam Sod 3.375 gm in 50 mls @ 100 mls/hr 03/01/18 20:30 03/03/18 04:07 Zosyn 3.375 Gm Iv Premix IVPB 100 mls/hr Q8H VELMA Administration Protocol Vancomycin HCl 1 gm/ Sodium 250 mls @ 166.7 mls/hr 03/02/18 18:00 03/02/18 17:14 Chloride IVPB 166.7 mls/hr Q24H VELMA Administration Protocol Potassium Chloride 20 meq in 100 mls @ 50 mls/hr 03/03/18 08:00 03/03/18 08:02 Potassium Chloride 20 Meq/100 Ml IVPB 03/03/18 11:59 50 mls/hr Q2 VELMA Administration Potassium Phosphate 15 mmole/ 255 mls @ 42.5 mls/hr 03/03/18 09:00 03/03/18 08:40 Dextrose IVPB 03/03/18 14:59 42.5 mls/hr ONCE ONE Administration Potassium Chloride 40 meq/ 1,020 mls @ 40 mls/hr 03/03/18 08:00 03/03/18 08:30 Sodium Chloride IV 40 mls/hr .Q24H VELMA Administration Dexmedetomidine HCl 200 mcg/ 50 mls @ 2.77 mls/hr 03/03/18 07:40 03/03/18 09:41 Sodium Chloride IV 0.5 mcg/kg/hr TITR PRN 6.93 mls/hr Agitation Titration Protocol 0.2 MCG/KG/HR - Patient Studies Lab Studies: Microbiology Studies 03/01/18 19:09 Blood Culture - Preliminary Blood NO GROWTH AFTER 24 HOURS 03/01/18 19:09 Blood Culture - Preliminary Blood NO GROWTH AFTER 24 HOURS 03/02/18 00:20 Gram Stain - Final Sputum Lab Studies 03/03/18 03/03/18 03/03/18 Range/Units 05:39 05:39 04:30 WBC 21.9 H (4.8-10.8) K/uL RBC 3.39 L (4.40-5.90) Mil/uL Hgb 10.0 L (12.0-18.0) g/dL Hct 30.2 L (35.0-51.0) % MCV 89.1 D (80.0-94.0) fL MCH 29.5 (27.0-31.0) pg MCHC 33.1 (33.0-37.0) g/dL RDW 14.7 H (11.5-14.5) % Plt Count 336 (130-400) K/uL MPV 7.3 (7.2-11.7) fL Neut % (Auto) 95.6 H (50.0-75.0) % Lymph % (Auto) 1.6 L (20.0-40.0) % Garland % (Auto) 2.7 (0.0-10.0) % Eos % (Auto) 0.0 (0.0-4.0) % Baso % (Auto) 0.1 (0.0-2.0) % Neut # (Auto) 21.0 H (1.8-7.0) K/uL Lymph # (Auto) 0.3 L (1.0-4.3) K/uL Garland # (Auto) 0.6 (0.0-0.8) K/uL Eos # (Auto) 0.0 (0.0-0.7) K/uL Baso # (Auto) 0.0 (0.0-0.2) K/uL Neutrophils % (Manual) 96 H (50-75) % Lymphocytes % (Manual) 2 L (20-40) % Monocytes % (Manual) 2 (0-10) % Platelet Estimate Normal (NORMAL) Hypochromasia (manual) Slight Poikilocytosis (manual Slight Anisocytosis (manual) Slight Puncture Site Lb pCO2 46 H (35-45) mm/Hg pO2 210 H (80-100) mm/Hg HCO3 31.6 H (21-28) mmol/L ABG pH 7.47 H (7.35-7.45) ABG Total CO2 34.9 H (22-28) mmol/L ABG O2 Saturation 100.1 H (95-98) % ABG Base Excess 8.6 H (-2.0-3.0) mmol/L ABG Hemoglobin 13.8 (11.7-17.4) g/dL ABG Carboxyhemoglobin 1.4 (0.5-1.5) % POC ABG HHb (Measured) -0.1 L (0.0-5.0) % ABG Methemoglobin 1.5 (0.0-3.0) % Bereket Test Na A-a O2 Difference 160.0 mm/Hg Respiratory Index 0.8 Hgb O2 Saturation 97.2 (95.0-98.0) % Vent Mode Prvc Mechanical Rate 20 FiO2 60.0 % Tidal Volume 450 PEEP 5 Sodium 131 L (132-148) mmol/L Potassium 2.5 L* (3.6-5.2) mmol/L Chloride 93 L (98-107) mmol/L Carbon Dioxide 32 H (22-30) mmol/L Anion Gap 8 L (10-20) BUN 7 L (9-20) mg/dL Creatinine 0.4 L (0.8-1.5) mg/dL Est GFR ( Amer) > 60 Est GFR (Non-Af Amer) > 60 Random Glucose 124 H (75-110) mg/dL Calcium 6.6 L (8.6-10.4) mg/dl Phosphorus 2.0 L (2.5-4.5) mg/dL Magnesium 1.4 L (1.6-2.3) mg/dL Total Bilirubin 0.7 (0.2-1.3) mg/dL AST 24 (17-59) U/L ALT 14 L (21-72) U/L Alkaline Phosphatase 109 (38-126) U/L Total Protein 5.8 L (6.3-8.3) g/dL Albumin 2.1 L (3.5-5.0) g/dL Globulin 3.7 (2.2-3.9) gm/dL Albumin/Globulin Ratio 0.6 L (1.0-2.1) Laboratory Results - last 24 hr 03/03/18 03/03/18 03/03/18 04:30 05:39 05:39 WBC 21.9 H RBC 3.39 L Hgb 10.0 L Hct 30.2 L MCV 89.1 D MCH 29.5 MCHC 33.1 RDW 14.7 H Plt Count 336 MPV 7.3 Neut % (Auto) 95.6 H Lymph % (Auto) 1.6 L Garland % (Auto) 2.7 Eos % (Auto) 0.0 Baso % (Auto) 0.1 Neut # (Auto) 21.0 H Lymph # (Auto) 0.3 L Garland # (Auto) 0.6 Eos # (Auto) 0.0 Baso # (Auto) 0.0 Neutrophils % (Manual) 96 H Lymphocytes % (Manual) 2 L Monocytes % (Manual) 2 Platelet Estimate Normal Hypochromasia (manual) Slight Poikilocytosis (manual Slight Anisocytosis (manual) Slight Puncture Site Lb pCO2 46 H pO2 210 H HCO3 31.6 H ABG pH 7.47 H ABG Total CO2 34.9 H ABG O2 Saturation 100.1 H ABG Base Excess 8.6 H ABG Hemoglobin 13.8 ABG Carboxyhemoglobin 1.4 POC ABG HHb (Measured) -0.1 L ABG Methemoglobin 1.5 Bereket Test Na A-a O2 Difference 160.0 Respiratory Index 0.8 Hgb O2 Saturation 97.2 Vent Mode Prvc Mechanical Rate 20 FiO2 60.0 Tidal Volume 450 PEEP 5 Sodium 131 L Potassium 2.5 L* Chloride 93 L Carbon Dioxide 32 H Anion Gap 8 L BUN 7 L Creatinine 0.4 L Est GFR ( Amer) > 60 Est GFR (Non-Af Amer) > 60 Random Glucose 124 H Calcium 6.6 L Phosphorus 2.0 L Magnesium 1.4 L Total Bilirubin 0.7 AST 24 ALT 14 L Alkaline Phosphatase 109 Total Protein 5.8 L Albumin 2.1 L Globulin 3.7 Albumin/Globulin Ratio 0.6 L Radiology Impressions: Radiology Impressions Chest X-Ray 03/02/18 07:00 IMPRESSION: Interval slight improvement in the left lung heterogeneous opacity since the previous exam. Appropriate position of the support devices. Review of Systems - Review of Systems Systems not reviewed;Unavailable: Intubated Critical Care Progress Note - Ventilator Checklist Head of Bed 30 Degrees: Yes Daily Sedation Vacation: Yes Daily Assessment of Readiness to Wean: Yes Daily Spontaneous Breathing Trial: Yes PUD Prophalyxis: Yes DVT Prophylaxis: Yes Oral Care with Chlorhexidine Gluconate {CHG}: Yes - Vent Settings MODE:: PRVC TIDAL VOLUME:: 450 RESP RATE:: 20 FIO2:: 50 PEEP:: 5 - Extremities/Vascular Does the Patient need a Simmons Catheter?: Yes Catheter Insertion Criteria: Need for accurate measurement of output in critically ill patient - Prophylaxis GI Prophylaxis GI: Pepsid - Prophylaxis DVT Prophylaxis DVT: Heparin SQ Assessment/Plan - Assessment and Plan (Free Text) Assessment: 72yo M. PMHx COPD, Alzheimer's, CHF, arthritis. recent hospitalizaion for cholelithiasis and pneumonia. Discharged home receiving IV abx. presents back with worsening pneumonia, and progression into septic shock. Intubated in field at home. On ABG found to have hypercanpeic resp failure with leukocytosis Neuro: Intubated / Sedated; Precedex 200 mcg in NS; patient alert Pulm: Respiratory failure 2/2 PNA and pulm edema; On vent (20/50/450/5); Duonebs, Vanc/Zosyn CV: septic shock; Continue levophed 4mcg/min Heme: No acute issues Renal: NS fluids; Input- 7321; Output 2655 (positive balance of 4666); will need diuresis with lasix likely tomorrow Endo: No acute issues GI: NPO, tube feedings (pulmocare) ID: Septic shock 2/2 PNA; Zosyn/Vanc DVT ppx - heparin sq GI ppx - pepcid Simmons for strict I/O's during acute illness
--- NOTE | 2018-03-03 10:33 | RAD ---
Date of service: 03/03/2018 HISTORY: ETT COMPARISON: 03/02/2018 FINDINGS: LUNGS: The endotracheal tube and nasogastric tube are in satisfactory position. No significant change in vascular congestion and perihilar infiltrates left greater than right. PLEURA: No significant pleural effusion identified, no pneumothorax apparent. CARDIOVASCULAR: No aortic atherosclerotic calcification present. Normal cardiac size. No pulmonary vascular congestion. OSSEOUS STRUCTURES: No significant abnormalities. VISUALIZED UPPER ABDOMEN: Normal. OTHER FINDINGS: None. IMPRESSION: The endotracheal tube and nasogastric tube are in satisfactory position. No significant change in vascular congestion and perihilar infiltrates left greater than right.
--- NOTE | 2018-03-03 14:41 | CP.PCM.PN ---
Subjective - Date & Time of Evaluation Date of Evaluation: 03/03/18 Time of Evaluation: 14:38 - Subjective Subjective: Patient is intubated on ventilator. Blood pressure is on 70s-80s on Levophed Intake and output shows a positive balance of 4 L. Patient is hypotensive Lasix is on hold. Assessment Probably aspiration pneumonia and septic shock. Continue IV antibiotics and ICU protocol treatment Objective - Vital Signs/Intake and Output Vital Signs (last 24 hours): Temp Pulse Resp BP Pulse Ox 97.8 F 92 H 23 86/52 L 97 03/03/18 12:00 03/03/18 12:01 03/03/18 12:01 03/03/18 12:01 03/03/18 12:01 Intake and Output: 03/03/18 03/03/18 11:59 23:59 Intake Total 3250.5 204.4 Output Total 1110 40 Balance 2140.5 164.4 - Medications Medications: Current Medications Acetaminophen (Tylenol 650mg/20.3ml Solution Ud) 650 mg NG Q6 PRN PRN Reason: Fever >100.4 F Last Admin: 03/02/18 07:53 Dose: 650 mg Albuterol/Ipratropium (Duoneb 3 Mg/0.5 Mg (3 Ml) Ud) 3 ml INH RQ6 VELMA Last Admin: 03/03/18 08:13 Dose: 3 ml Famotidine (Pepcid) 20 mg IVP Q12 VELMA Last Admin: 03/03/18 09:22 Dose: 20 mg Heparin Sodium (Porcine) (Heparin) 5,000 units SC Q8 VELMA Last Admin: 03/03/18 13:41 Dose: 5,000 units Norepinephrine Bitartrate 4 mg (/ Sodium Chloride) 254 mls @ 15.24 mls/hr IV .[id number] PRN; Protocol PRN Reason: TITRATE PER MD ORDER Last Titration: 03/03/18 14:13 Dose: 6 mcg/min, 22.86 mls/hr Piperacillin Sod/Tazobactam Sod (Zosyn 3.375 Gm Iv Premix) 3.375 gm in 50 mls @ 100 mls/hr IVPB Q8H [facility]ELMA; Protocol Last Admin: 03/03/18 11:52 Dose: 100 mls/hr Vancomycin HCl 1 gm/ Sodium (Chloride) 250 mls @ 166.7 mls/hr IVPB Q24H [facility]ELMA; Protocol Last Admin: 03/02/18 17:14 Dose: 166.7 mls/hr Potassium Phosphate 15 mmole/ (Dextrose) 255 mls @ 42.5 mls/hr IVPB ONCE ONE Stop: 03/03/18 14:59 Last Admin: 03/03/18 08:40 Dose: 42.5 mls/hr Potassium Chloride 40 meq/ (Sodium Chloride) 1,020 mls @ 40 mls/hr IV .Q24H VELMA Last Admin: 03/03/18 08:30 Dose: 40 mls/hr Dexmedetomidine HCl 200 mcg/ (Sodium Chloride) 50 mls @ 2.77 mls/hr IV TITR PRN; Protocol PRN Reason: Agitation Last Admin: 03/03/18 14:12 Dose: 0.8 mcg/kg/hr, 11.09 mls/hr - Labs Labs: 03/03/18 05:39 03/03/18 05:39
--- NOTE | 2018-03-03 17:42 | CARD ---
APPROVED REPORT Date of service: 03/01/2018 EKG Measurement Heart [id number] [id number] <Conclusion> Sinus tachycardia Nonspecific ST abnormality Low voltage in precordial leads Abnormal ECG
[2018-03-03 18:15] LABS: BLOOD UREA NITROGEN 7 mg/dL (9-20); CALCIUM 6.6 mg/dl (8.6-10.4); GFR NON-AFRICAN AMERICAN > 60
[2018-03-03] MEDS ORDERED: Potassium Phosphate 15 MMOLE in Sodium Chloride 0.9% 250 ML IVPB ONE (19:00)
--- NOTE | 2018-03-03 19:12 | CP.PCM.PN ---
Subjective - Date & Time of Evaluation Date of Evaluation: 03/03/18 Time of Evaluation: 19:09 - Subjective Subjective: PT INTUBATED. ROS; UNOBTAINABLE. Objective - Vital Signs/Intake and Output Vital Signs (last 24 hours): Temp Pulse Resp BP Pulse Ox 98.2 F 88 20 96/52 L 98 03/03/18 16:00 03/03/18 18:01 03/03/18 18:01 03/03/18 18:01 03/03/18 18:01 Intake and Output: 03/03/18 03/04/18 18:59 06:59 Intake Total 2095.3 Output Total 1460 Balance 635.3 - Medications Medications: Current Medications Acetaminophen (Tylenol 650mg/20.3ml Solution Ud) 650 mg NG Q6 PRN PRN Reason: Fever >100.4 F Last Admin: 03/02/18 07:53 Dose: 650 mg Albuterol/Ipratropium (Duoneb 3 Mg/0.5 Mg (3 Ml) Ud) 3 ml INH RQ6 VELMA Last Admin: 03/03/18 08:13 Dose: 3 ml Famotidine (Pepcid) 20 mg IVP Q12 VELMA Last Admin: 03/03/18 09:22 Dose: 20 mg Heparin Sodium (Porcine) (Heparin) 5,000 units SC Q8 VELMA Last Admin: 03/03/18 13:41 Dose: 5,000 units Norepinephrine Bitartrate 4 mg (/ Sodium Chloride) 254 mls @ 15.24 mls/hr IV .[id number] PRN; Protocol PRN Reason: TITRATE PER MD ORDER Last Titration: 03/03/18 17:28 Dose: 4 mcg/min, 15.24 mls/hr Piperacillin Sod/Tazobactam Sod (Zosyn 3.375 Gm Iv Premix) 3.375 gm in 50 mls @ 100 mls/hr IVPB Q8H VELMA; Protocol Last Admin: 03/03/18 11:52 Dose: 100 mls/hr Vancomycin HCl 1 gm/ Sodium (Chloride) 250 mls @ 166.7 mls/hr IVPB Q24H [facility]ELMA; Protocol Last Admin: 03/03/18 18:45 Dose: 166.7 mls/hr Potassium Chloride 40 meq/ (Sodium Chloride) 1,020 mls @ 40 mls/hr IV .Q24H VELMA Last Admin: 03/03/18 08:30 Dose: 40 mls/hr Dexmedetomidine HCl 200 mcg/ (Sodium Chloride) 50 mls @ 2.77 mls/hr IV TITR PRN; Protocol PRN Reason: Agitation Last Admin: 03/03/18 18:43 Dose: 0.9 mcg/kg/hr, 12.48 mls/hr Potassium Chloride (Potassium Chloride 10 Meq/100 Ml) 10 meq in 100 mls @ 100 mls/hr IVPB Q1H VELMA Stop: 03/03/18 20:29 Last Admin: 03/03/18 18:36 Dose: 100 mls/hr Potassium Phosphate 15 mmole/ (Sodium Chloride) 255 mls @ 42.5 mls/hr IVPB ONCE ONE Stop: 03/04/18 00:59 Last Admin: 03/03/18 19:08 Dose: 42.5 mls/hr - Labs Labs: 03/03/18 05:39 03/03/18 17:45 - Constitutional Appears: Cachectic, Chronically Ill - Head Exam Head Exam: ATRAUMATIC, NORMOCEPHALIC - Eye Exam Eye Exam: Normal appearance - ENT Exam Additional comments: ORAL ETT - Neck Exam Neck Exam: Normal Inspection - Respiratory Exam Respiratory Exam: Rhonchi - Cardiovascular Exam Cardiovascular Exam: RRR, +S1, +S2 - GI/Abdominal Exam GI & Abdominal Exam: Soft - Rectal Exam Rectal Exam: Deferred - Extremities Exam Extremities Exam: absent: Pedal Edema - Neurological Exam Additional comments: SEDATED - Skin Skin Exam: absent: Rash Assessment and Plan (1) Septic shock Status: Acute (2) Altered mental status Status: Acute (3) Pneumonia Status: Acute (4) Respiratory failure requiring intubation Status: Acute (5) COPD exacerbation Status: Acute (6) Cachexia Status: Acute (7) Cholelithiases Status: Acute (8) Alzheimer disease Status: Chronic - Assessment and Plan (Free Text) Assessment: RESP STATUS NO SIG CHANGE., CONT AC SUPPORT, TAPER FIO2, BETTER OXYGENATION., CONT PULM TOILET., NEB BD, CXR REVIEWED. CONT IV AB. ON NGT FEEDINGS., SUPP K. ON IV LEVO TAPER TOLERATED. PROG GRIM . DISCUSSED WITH STAFF AT LENGTH AND FAMILY AT BEDSIDE.
--- NOTE | 2018-03-03 20:55 | CP.PCM.PN ---
Subjective - Date & Time of Evaluation Date of Evaluation: 03/03/18 Time of Evaluation: 20:55 - Subjective Subjective: AFEBRILE HYPOTENSIVE, INTUBATED. POORLY RESPONSIVE. FAMILY AT BEDSIDE SPUTUM +VE GNR/YEAST SP. WBC 21.0 INCREASING CXR 03/03/18 -NO CHANGE PVC, B/L INFILTRATES L>RT. Objective - Vital Signs/Intake and Output Vital Signs (last 24 hours): Temp Pulse Resp BP Pulse Ox 98.2 F 83 20 87/52 L 100 03/03/18 20:00 03/03/18 20:00 03/03/18 20:00 03/03/18 20:00 03/03/18 20:00 Intake and Output: 03/03/18 03/04/18 18:59 06:59 Intake Total 2095.3 568.8 Output Total 1460 450 Balance 635.3 118.8 - Medications Medications: Current Medications Acetaminophen (Tylenol 650mg/20.3ml Solution Ud) 650 mg NG Q6 PRN PRN Reason: Fever >100.4 F Last Admin: 03/02/18 07:53 Dose: 650 mg Albuterol/Ipratropium (Duoneb 3 Mg/0.5 Mg (3 Ml) Ud) 3 ml INH RQ6 VELMA Last Admin: 03/03/18 08:13 Dose: 3 ml Famotidine (Pepcid) 20 mg IVP Q12 VELMA Last Admin: 03/03/18 09:22 Dose: 20 mg Heparin Sodium (Porcine) (Heparin) 5,000 units SC Q8 VELMA Last Admin: 03/03/18 13:41 Dose: 5,000 units Norepinephrine Bitartrate 4 mg (/ Sodium Chloride) 254 mls @ 15.24 mls/hr IV .[id number] PRN; Protocol PRN Reason: TITRATE PER MD ORDER Last Titration: 03/03/18 17:28 Dose: 4 mcg/min, 15.24 mls/hr Piperacillin Sod/Tazobactam Sod (Zosyn 3.375 Gm Iv Premix) 3.375 gm in 50 mls @ 100 mls/hr IVPB Q8H VELMA; Protocol Last Admin: 03/03/18 11:52 Dose: 100 mls/hr Vancomycin HCl 1 gm/ Sodium (Chloride) 250 mls @ 166.7 mls/hr IVPB Q24H VELMA; Protocol Last Admin: 03/03/18 18:45 Dose: 166.7 mls/hr Potassium Chloride 40 meq/ (Sodium Chloride) 1,020 mls @ 40 mls/hr IV .Q24H VELMA Last Admin: 03/03/18 08:30 Dose: 40 mls/hr Dexmedetomidine HCl 200 mcg/ (Sodium Chloride) 50 mls @ 2.77 mls/hr IV TITR PRN; Protocol PRN Reason: Agitation Last Admin: 03/03/18 18:43 Dose: 0.9 mcg/kg/hr, 12.48 mls/hr Potassium Phosphate 15 mmole/ (Sodium Chloride) 255 mls @ 42.5 mls/hr IVPB ONCE ONE Stop: 03/04/18 00:59 Last Admin: 03/03/18 19:08 Dose: 42.5 mls/hr - Labs Labs: 03/03/18 05:39 03/03/18 17:45 - Constitutional Appears: No Acute Distress, Cachectic, Chronically Ill - Head Exam Head Exam: NORMAL INSPECTION - Eye Exam Eye Exam: PERRL - ENT Exam ENT Exam: Mucous Membranes Dry, Normal Oropharynx - Neck Exam Neck Exam: Normal Inspection - Respiratory Exam Respiratory Exam: Rhonchi (LT > RT), NORMAL BREATHING PATTERN - Cardiovascular Exam Cardiovascular Exam: REGULAR RHYTHM, +S1, +S2 - GI/Abdominal Exam GI & Abdominal Exam: Soft, Tenderness (MID ABDOMEN ,WINCES ON PALPATION.), Hypoactive Bowel Sounds - Extremities Exam Extremities Exam: absent: Calf Tenderness, Pedal Edema - Neurological Exam Neurological Exam: Altered - Psychiatric Exam Psychiatric exam: Flat Affect - Skin Skin Exam: Normal Color, Warm Assessment and Plan (1) Sepsis associated hypotension Status: Acute (2) Respiratory failure requiring intubation Status: Acute (3) Altered mental status Status: Acute (4) Pneumonia Status: Acute (5) Cholelithiases Status: Acute - Assessment and Plan (Free Text) Plan: ON VASOPRESSORS FOR HYPOTENSION DC IV ZOSYN 3.375GM IVPB Q 8HRLY 03/01/18. BLOOD CULTURE X2SETS 15 MIN APART FROM PICC LINE.03/04/18 START IV MERREM 500MG IVPB Q8HRLY 03/04/18 CONTINUE IV VANCOMYCIN 1GM IVPB [id number] 03/01/18. VANCO TROUGH PRIOR TO 4TH DOSE AND KEEP BETWEEN 10-20MG/DL. ADD IV MYCAFUNGIN 100MG IV PB Q 24 HRLY 03/04/18 PROGNOSIS GUARDED. CASE DISCUSSED WITH STAFF
[2018-03-03] MEDS ORDERED: Sodium Chloride 0.9% 500 ML IV ONE (22:54)
[2018-03-04] MEDS: Meropenem 500 MG in Sodium Chloride 0.9% 100 ML IVPB SCH ×3 (01:35→17:06)
[2018-03-04] MEDS: Albuterol-Ipratrop 3 mg / 0.5 (3 ml) UD INH SCH ×4 (01:55→20:55)
[2018-03-04] MEDS: Micafungin 100 MG in Sodium Chloride 0.9% 100 ML IV SCH (02:00)
[2018-03-04] MEDS: Dexmedetomidine Hydrochloride 200 MCG in Sodium Chloride 0.9% 48 ML IV PRN ×5 (04:41→21:17)
[2018-03-04 05:31] LABS: ABG ALLEN TEST POS; ARTERIAL BLOOD GAS HCO3 35.2 mmol/L (21-28); ARTERIAL BLOOD GAS HEMOGLOBIN 19.5 g/dL (11.7-17.4); ARTERIAL BLOOD GAS O2 SAT 99.2 % (95-98); ARTERIAL BLOOD GAS PCO2 46 mm/Hg (35-45); ARTERIAL BLOOD GAS PH 7.53 (7.35-7.45); ARTERIAL BLOOD GAS PO2 94 mm/Hg (80-100); ARTERIAL BLOOD GAS TCO2 39.8 mmol/L (22-28)
[2018-03-04 05:56] LABS: BASO % 0.1 % (0.0-2.0); EOS % 0.1 % (0.0-4.0); HEMOGLOBIN 10.2 g/dL (12.0-18.0); LYMPH # 0.9 K/uL (1.0-4.3); MEAN CELL VOLUME 88.7 fL (80.0-94.0); MEAN CORPUSCULAR HEMOGLOBIN 29.2 pg (27.0-31.0); MEAN CORPUSCULAR HGB CONC 32.9 g/dL (33.0-37.0); MEAN PLATELET VOLUME 7.8 fL (7.2-11.7); MONO # 0.7 K/uL (0.0-0.8); NEUT % 92.8 % (50.0-75.0); PLATELET COUNT 300 K/uL (130-400); RED CELL DISTRIBUTION WIDTH 14.4 % (11.5-14.5); WHITE BLOOD COUNT 21.5 K/uL (4.8-10.8)
[2018-03-04 06:27] LABS: ALB/GLOB RATIO 0.6 (1.0-2.1); ALBUMIN 2.2 g/dL (3.5-5.0); ALT/SGPT 16 U/L (21-72); AST/SGOT 26 U/L (17-59); BLOOD UREA NITROGEN 6 mg/dL (9-20); CALCIUM 6.1 mg/dl (8.6-10.4); GFR NON-AFRICAN AMERICAN > 60
[2018-03-04 08:18] LABS: BANDS 2 % (0-2); LYMPHOCYTE 3 % (20-40); MONOCYTE 3 % (0-10); NEUTROPHIL 92 % (50-75); PLATELET ESTIMATE NORMAL (NORMAL); TOTAL CELLS COUNTED 100
[2018-03-04 08:19] LABS: ANISOCYTOSIS SLIGHT; HYPOCHROMIC SLIGHT; POIKILOCYTOSIS SLIGHT; TARGET CELLS SLIGHT
[2018-03-04] MEDS: Magnesium Sulfate 1 gm in D5W 1 GM/100 ML BAG IVPB SCH ×2 (08:40→09:21)
[2018-03-04] MEDS ORDERED: Potassium Phosphate 30 MMOLE in Sodium Chloride 0.9% 250 ML IV ONE (09:35)
[2018-03-04] MEDS ORDERED: Sodium Chloride 0.9% 1,000 ML IV ONE (09:39)
[2018-03-04] MEDS ORDERED: Potassium Chloride 20 mEq ER Tab PO SCH (10:00)
--- NOTE | 2018-03-04 10:07 | RAD ---
Date of service: 03/04/2018 HISTORY: intubated COMPARISON: 03/03/2018 FINDINGS: LUNGS: The coalescent patchy airspace opacities projecting over the left 1/2 to 2/3 inferior hemithorax is similar in appearance coalescent infiltrate here is inferred. No change appreciated. Endotracheal tube tip approximately 3.5 cm cephalad to the mandie. Patchy and bandlike airspace opacities and linear opacities right lung base coalescent subsegmental atelectasis with the trace right inferolateral pleural thickening with or without patchy residual infiltrate here is compatible with this appearance no change here is perceived. More extensive pleural thickening in the mid to right upper lung zone is similar. PLEURA: Small bilateral pleural effusions probable. No interval change here perceived. No pneumothorax CARDIOVASCULAR: There is presence of aortic atherosclerotic calcification on x-ray. Mild cardiomegaly-similar concomitant pulmonary venous congestion/interstitial lung disease and/or interstitial pulmonary edema are compatible with this appearance no change in this pulmonary vasculature/interstitial lung pattern appreciated. OSSEOUS STRUCTURES: Bilateral orthopedic hardware over each proximal humerus. Generalized osteopenia. Thoraco lumbar spondylosis. VISUALIZED UPPER ABDOMEN: NG tube tip in stomach. OTHER FINDINGS: None. IMPRESSION: No interval pathology noted. Similar bilateral patchy airspace over infiltrates in addition to diffuse interstitial lung disease and/or interstitial pulmonary edema presence. The pathology in the left lung regarding coalescent airspace opacities infiltrates is greater than that on the right and this is a similar status to before. Other findings as above.
[2018-03-04] MEDS: Potassium Chloride 20 mEq/15 ml LIQ UD PO SCH ×2 (10:17→11:18)
[2018-03-04] MEDS ORDERED: Midazolam 2 MG/2 ML VIAL IVP ONE (10:35)
[2018-03-04] MEDS ORDERED: Propofol 10 mg/ml Inj (20 ML) IV ONE (10:48)
[2018-03-04] MEDS ORDERED: Propofol 10 mg/ml Inj (20 ML) ONE (10:52)
--- NOTE | 2018-03-04 11:08 | CP.PCM.PN ---
Subjective - Date & Time of Evaluation Date of Evaluation: 03/04/18 Time of Evaluation: 11:05 - Subjective Subjective: PT INTUBATED., ROS; UNOBTAINABLE Objective - Vital Signs/Intake and Output Vital Signs (last 24 hours): Temp Pulse Resp BP Pulse Ox 98.4 F 74 22 109/51 L 100 03/04/18 08:00 03/04/18 08:00 03/04/18 08:00 03/04/18 08:00 03/04/18 08:00 Intake and Output: 03/04/18 03/04/18 06:59 18:59 Intake Total 2827.0 530.6 Output Total 2575 300 Balance 252.0 230.6 - Medications Medications: Current Medications Acetaminophen (Tylenol 650mg/20.3ml Solution Ud) 650 mg NG Q6 PRN PRN Reason: Fever >100.4 F Last Admin: 03/02/18 07:53 Dose: 650 mg Albuterol/Ipratropium (Duoneb 3 Mg/0.5 Mg (3 Ml) Ud) 3 ml INH RQ6 VELMA Last Admin: 03/04/18 08:06 Dose: 3 ml Famotidine (Pepcid) 20 mg IVP Q12 VELMA Last Admin: 03/04/18 10:13 Dose: 20 mg Heparin Sodium (Porcine) (Heparin) 5,000 units SC Q8 VELMA Last Admin: 03/03/18 21:12 Dose: 5,000 units Norepinephrine Bitartrate 4 mg (/ Sodium Chloride) 254 mls @ 15.24 mls/hr IV .[id number] PRN; Protocol PRN Reason: TITRATE PER MD ORDER Last Titration: 03/04/18 10:00 Dose: 7 mcg/min, 26.67 mls/hr Vancomycin HCl 1 gm/ Sodium (Chloride) 250 mls @ 166.7 mls/hr IVPB Q24H VELMA; Protocol Last Admin: 03/03/18 18:45 Dose: 166.7 mls/hr Potassium Chloride 40 meq/ (Sodium Chloride) 1,020 mls @ 40 mls/hr IV .Q24H VELMA Last Admin: 03/04/18 08:15 Dose: 40 mls/hr Dexmedetomidine HCl 200 mcg/ (Sodium Chloride) 50 mls @ 2.77 mls/hr IV TITR PRN; Protocol PRN Reason: Agitation Last Admin: 03/04/18 09:14 Dose: 0.9 mcg/kg/hr, 12.48 mls/hr Micafungin Sodium 100 mg/ (Sodium Chloride) 100 mls @ 100 mls/hr IV Q24H VELMA; Protocol Last Admin: 03/04/18 02:00 Dose: 100 mls/hr Meropenem 500 mg/ Sodium (Chloride) 100 mls @ 100 mls/hr IVPB Q8H VELMA; Protocol Last Admin: 03/04/18 09:22 Dose: 100 mls/hr Potassium Chloride (Potassium Chloride 10 Meq/100 Ml) 10 meq in 100 mls @ 100 mls/hr IVPB Q1H VELMA Stop: 03/04/18 12:59 Last Admin: 03/04/18 10:12 Dose: 100 mls/hr Potassium Phosphate 30 mmole/ (Sodium Chloride) 260 mls @ 63 mls/hr IV ONCE ONE Stop: 03/04/18 13:33 - Labs Labs: 03/04/18 05:51 03/04/18 05:51 - Constitutional Appears: Cachectic, Chronically Ill - Head Exam Head Exam: ATRAUMATIC, NORMOCEPHALIC - Eye Exam Eye Exam: Normal appearance - ENT Exam Additional comments: ORAL ETT - Neck Exam Neck Exam: Normal Inspection - Cardiovascular Exam Cardiovascular Exam: RRR, +S1, +S2 - GI/Abdominal Exam GI & Abdominal Exam: Soft - Rectal Exam Rectal Exam: Deferred - Extremities Exam Extremities Exam: absent: Pedal Edema - Neurological Exam Additional comments: SEDATED, AROUSABLE. - Skin Skin Exam: absent: Rash Assessment and Plan (1) Septic shock Status: Acute (2) Altered mental status Status: Acute (3) Pneumonia Status: Acute (4) Respiratory failure requiring intubation Status: Acute (5) COPD exacerbation Status: Acute (6) Cachexia Status: Acute (7) Cholelithiases Status: Acute (8) Alzheimer disease Status: Chronic - Assessment and Plan (Free Text) Assessment: ON IV LEVO TAPER 7UG NOW, CONT AC SUPPORT., TAPER FIO2 TOLERATED., PULM TOILET., NEB BD. CXR REVIEWED. CONT AB. NGT FEEDINGS. SUPP K. PROG GRAVE, DISCUSSED WITH STAFF AT LENGTH.
--- NOTE | 2018-03-04 11:50 | CP.CCUPN ---
<Merry Farias - Last Filed: 03/04/18 11:47> CCU Subjective - Physician Review Subjective (Free Text): 03/03/18 10:02 Critical Care Progress Note for Dr. Jara's service Patient seen and examined at bedside. 12 point ROS limited 2/2 patient clinical condition. Central catheter was inserted for blood pressure management. 03/04/18 11:47 03/04/18 11:54 CCU Objective - Vital Signs / Intake & Output Vital Signs (Last 4 hours): Vital Signs Temp Pulse Resp BP Pulse Ox 03/04/18 08:00 98.4 F 69 20 94/52 L 98 Intake and Output (Last 8hrs): Intake & Output 03/03/18 03/04/18 03/04/18 22:59 06:59 14:59 Intake Total 1644.4 1809.8 530.6 Output Total 1950 1425 300 Balance -305.6 384.8 230.6 Weight 127 lb 2 oz Intake: IV 172 124 153 Intake, IV Amount 1102.4 1365.8 327.6 Left Antecubital 375.1 366.8 40 Left Forearm 100 P/B left forarm 100 R UA PICC 143.8 79.0 22.6 Right Forearm 99.5 100.0 25.0 Right PICC 442 320 40 right arm PICC 42 500 Tube Feeding 320 320 50 Other 50 Output: Urine 1950 1425 300 Urethral (Simmons) 1950 1425 300 Other: # Bowel Movements 0 0 - Physical Exam Head: Positive for: Atraumatic, Normocephalic Pupils: Positive for: PERRL Extroacular Muscles: Positive for: EOMI Conjunctiva: Positive for: Normal Ears: Positive for: Normal Mouth: Positive for: Moist Mucous Membranes Neck: Positive for: Normal Range of Motion Respiratory/Chest: Positive for: Good Air Exchange, Rhonchi. Negative for: Respiratory Distress Cardiovascular: Positive for: Regular Rate and Rhythm Abdomen: Positive for: Normal Bowel Sounds. Negative for: Tenderness, Distention Upper Extremity: Positive for: Normal Inspection. Negative for: Cyanosis, Edema Lower Extremity: Positive for: Normal Inspection. Negative for: Edema Skin: Positive for: Dry, Normal Color Psychiatric: Positive for: Alert - Medications Active Medications: Active Medications Generic Name Dose Route Start Last Admin Trade Name Freq PRN Reason Stop Dose Admin Acetaminophen 650 mg 03/01/18 21:09 03/02/18 07:53 Tylenol 650mg/20.3ml Solution Ud NG 650 mg Q6 PRN Administration Fever >100.4 F Albuterol/Ipratropium 3 ml 03/02/18 14:00 03/04/18 08:06 Duoneb 3 Mg/0.5 Mg (3 Ml) Ud INH 3 ml RQ6 VELMA Administration Famotidine 20 mg 03/01/18 22:15 03/04/18 10:13 Pepcid IVP 20 mg Q12 VELMA Administration Heparin Sodium (Porcine) 5,000 units 03/01/18 22:00 03/03/18 21:12 Heparin SC 5,000 units Q8 VELMA Administration Norepinephrine Bitartrate 4 mg 254 mls @ 15.24 mls/hr 03/01/18 19:08 03/04/18 10:00 / Sodium Chloride IV 7 mcg/min .[id number] PRN 26.67 mls/hr TITRATE PER MD ORDER Titration Protocol 4 MCG/MIN Vancomycin HCl 1 gm/ Sodium 250 mls @ 166.7 mls/hr 03/02/18 18:00 03/03/18 18:45 Chloride IVPB 166.7 mls/hr Q24H VELMA Administration Protocol Potassium Chloride 40 meq/ 1,020 mls @ 40 mls/hr 03/03/18 08:00 03/04/18 08:15 Sodium Chloride IV 40 mls/hr .Q24H VELMA Administration Dexmedetomidine HCl 200 mcg/ 50 mls @ 2.77 mls/hr 03/03/18 07:40 03/04/18 09:14 Sodium Chloride IV 0.9 mcg/kg/hr TITR PRN 12.48 mls/hr Agitation Administration Protocol 0.2 MCG/KG/HR Micafungin Sodium 100 mg/ 100 mls @ 100 mls/hr 03/04/18 01:00 03/04/18 02:00 Sodium Chloride IV 100 mls/hr Q24H VELMA Administration Protocol Meropenem 500 mg/ Sodium 100 mls @ 100 mls/hr 03/04/18 01:15 03/04/18 09:22 Chloride IVPB 100 mls/hr Q8H VELMA Administration Protocol Potassium Chloride 10 meq in 100 mls @ 100 mls/hr 03/04/18 07:00 03/04/18 11:10 Potassium Chloride 10 Meq/100 Ml IVPB 03/04/18 12:59 100 mls/hr Q1H VELMA Administration Potassium Phosphate 30 mmole/ 260 mls @ 63 mls/hr 03/04/18 09:35 03/04/18 11:16 Sodium Chloride IV 03/04/18 13:33 63 mls/hr ONCE ONE Administration - Patient Studies Lab Studies: Microbiology Studies 03/01/18 19:09 Blood Culture - Preliminary Blood NO GROWTH AFTER 48 HOURS 03/01/18 19:09 Blood Culture - Preliminary Blood NO GROWTH AFTER 48 HOURS 03/02/18 00:19 MRSA Culture (Admit) - Final Naris MRSA NOT DETECTED 03/02/18 00:20 Gram Stain - Final Sputum Sputum Culture - Preliminary Gram Negative Simone Yeast Species 03/01/18 20:39 Urine Culture - Final Urine,Catheterized No Growth (<1,000 CFU/ML) Lab Studies 03/04/18 03/04/18 03/04/18 Range/Units 05:51 05:51 05:11 WBC 21.5 H (4.8-10.8) K/uL RBC 3.50 L (4.40-5.90) Mil/uL Hgb 10.2 L (12.0-18.0) g/dL Hct 31.0 L (35.0-51.0) % MCV 88.7 (80.0-94.0) fL MCH 29.2 (27.0-31.0) pg MCHC 32.9 L (33.0-37.0) g/dL RDW 14.4 (11.5-14.5) % Plt Count 300 (130-400) K/uL MPV 7.8 (7.2-11.7) fL Neut % (Auto) 92.8 H (50.0-75.0) % Lymph % (Auto) 4.0 L (20.0-40.0) % Mingo % (Auto) 3.0 (0.0-10.0) % Eos % (Auto) 0.1 (0.0-4.0) % Baso % (Auto) 0.1 (0.0-2.0) % Neut # (Auto) 20.0 H (1.8-7.0) K/uL Lymph # (Auto) 0.9 L (1.0-4.3) K/uL Mingo # (Auto) 0.7 (0.0-0.8) K/uL Eos # (Auto) 0.0 (0.0-0.7) K/uL Baso # (Auto) 0.0 (0.0-0.2) K/uL Neutrophils % (Manual) 92 H (50-75) % Band Neutrophils % 2 (0-2) % Lymphocytes % (Manual) 3 L (20-40) % Monocytes % (Manual) 3 (0-10) % Platelet Estimate Normal (NORMAL) Hypochromasia (manual) Slight Poikilocytosis (manual Slight Anisocytosis (manual) Slight Target Cells Slight Puncture Site Lrad pCO2 46 H (35-45) mm/Hg pO2 94 (80-100) mm/Hg HCO3 35.2 H (21-28) mmol/L ABG pH 7.53 H (7.35-7.45) ABG Total CO2 39.8 H (22-28) mmol/L ABG O2 Saturation 99.2 H (95-98) % ABG Base Excess 13.3 H (-2.0-3.0) mmol/L ABG Hemoglobin 19.5 H (11.7-17.4) g/dL ABG Carboxyhemoglobin 1.4 (0.5-1.5) % POC ABG HHb (Measured) 0.8 (0.0-5.0) % ABG Methemoglobin 1.4 (0.0-3.0) % [place] Test Pos A-a O2 Difference 205.0 mm/Hg Respiratory Index 2.2 Hgb O2 Saturation 96.4 (95.0-98.0) % Vent Mode Prvc Mechanical Rate 20 FiO2 50.0 % Tidal Volume 450 PEEP 5 Sodium 131 L (132-148) mmol/L Potassium 2.1 L* (3.6-5.2) mmol/L Chloride 89 L (98-107) mmol/L Carbon Dioxide 39 H (22-30) mmol/L Anion Gap 6 L (10-20) BUN 6 L (9-20) mg/dL Creatinine 0.3 L (0.8-1.5) mg/dL Est GFR ( Amer) > 60 Est GFR (Non-Af Amer) > 60 Random Glucose 133 H (75-110) mg/dL Calcium 6.1 L (8.6-10.4) mg/dl Phosphorus 1.4 L (2.5-4.5) mg/dL Magnesium 1.5 L (1.6-2.3) mg/dL Total Bilirubin 0.6 (0.2-1.3) mg/dL AST 26 (17-59) U/L ALT 16 L (21-72) U/L Alkaline Phosphatase 112 (38-126) U/L Total Protein 6.1 L (6.3-8.3) g/dL Albumin 2.2 L (3.5-5.0) g/dL Globulin 3.9 (2.2-3.9) gm/dL Albumin/Globulin Ratio 0.6 L (1.0-2.1) / Range/Units 17:45 WBC (4.8-10.8) K/uL RBC (4.40-5.90) Mil/uL Hgb (12.0-18.0) g/dL Hct (35.0-51.0) % MCV (80.0-94.0) fL MCH (27.0-31.0) pg MCHC (33.0-37.0) g/dL RDW (11.5-14.5) % Plt Count (130-400) K/uL MPV (7.2-11.7) fL Neut % (Auto) (50.0-75.0) % Lymph % (Auto) (20.0-40.0) % Mingo % (Auto) (0.0-10.0) % Eos % (Auto) (0.0-4.0) % Baso % (Auto) (0.0-2.0) % Neut # (Auto) (1.8-7.0) K/uL Lymph # (Auto) (1.0-4.3) K/uL Mingo # (Auto) (0.0-0.8) K/uL Eos # (Auto) (0.0-0.7) K/uL Baso # (Auto) (0.0-0.2) K/uL Neutrophils % (Manual) (50-75) % Band Neutrophils % (0-2) % Lymphocytes % (Manual) (20-40) % Monocytes % (Manual) (0-10) % Platelet Estimate (NORMAL) Hypochromasia (manual) Poikilocytosis (manual Anisocytosis (manual) Target Cells Puncture Site pCO2 (35-45) mm/Hg pO2 (80-100) mm/Hg HCO3 (21-28) mmol/L ABG pH (7.35-7.45) ABG Total CO2 (22-28) mmol/L ABG O2 Saturation (95-98) % ABG Base Excess (-2.0-3.0) mmol/L ABG Hemoglobin (11.7-17.4) g/dL ABG Carboxyhemoglobin (0.5-1.5) % POC ABG HHb (Measured) (0.0-5.0) % ABG Methemoglobin (0.0-3.0) % [place] Test A-a O2 Difference mm/Hg Respiratory Index Hgb O2 Saturation (95.0-98.0) % Vent Mode Mechanical Rate FiO2 % Tidal Volume PEEP Sodium 129 L (132-148) mmol/L Potassium 2.1 L* (3.6-5.2) mmol/L Chloride 89 L (98-107) mmol/L Carbon Dioxide 34 H (22-30) mmol/L Anion Gap 9 L (10-20) BUN 7 L (9-20) mg/dL Creatinine 0.3 L (0.8-1.5) mg/dL Est GFR ( Amer) > 60 Est GFR (Non-Af Amer) > 60 Random Glucose 155 H (75-110) mg/dL Calcium 6.6 L (8.6-10.4) mg/dl Phosphorus 1.2 L (2.5-4.5) mg/dL Magnesium 1.8 (1.6-2.3) mg/dL Total Bilirubin (0.2-1.3) mg/dL AST (17-59) U/L ALT (21-72) U/L Alkaline Phosphatase (38-126) U/L Total Protein (6.3-8.3) g/dL Albumin (3.5-5.0) g/dL Globulin (2.2-3.9) gm/dL Albumin/Globulin Ratio (1.0-2.1) Laboratory Results - last 24 hr 03/03/18 03/04/18 03/04/18 17:45 05:11 05:51 WBC 21.5 H RBC 3.50 L Hgb 10.2 L Hct 31.0 L MCV 88.7 MCH 29.2 MCHC 32.9 L RDW 14.4 Plt Count 300 MPV 7.8 Neut % (Auto) 92.8 H Lymph % (Auto) 4.0 L Mingo % (Auto) 3.0 Eos % (Auto) 0.1 Baso % (Auto) 0.1 Neut # (Auto) 20.0 H Lymph # (Auto) 0.9 L [place] # (Auto) 0.7 Eos # (Auto) 0.0 Baso # (Auto) 0.0 Neutrophils % (Manual) 92 H Band Neutrophils % 2 Lymphocytes % (Manual) 3 L Monocytes % (Manual) 3 Platelet Estimate Normal Hypochromasia (manual) Slight Poikilocytosis (manual Slight Anisocytosis (manual) Slight Target Cells Slight Puncture Site Lrad pCO2 46 H pO2 94 HCO3 35.2 H ABG pH 7.53 H ABG Total CO2 39.8 H ABG O2 Saturation 99.2 H ABG Base Excess 13.3 H ABG Hemoglobin 19.5 H ABG Carboxyhemoglobin 1.4 POC ABG HHb (Measured) 0.8 ABG Methemoglobin 1.4 [place] Test Pos A-a O2 Difference 205.0 Respiratory Index 2.2 Hgb O2 Saturation 96.4 Vent Mode Prvc Mechanical Rate 20 FiO2 50.0 Tidal Volume 450 PEEP 5 Sodium 129 L Potassium 2.1 L* Chloride 89 L Carbon Dioxide 34 H Anion Gap 9 L BUN 7 L Creatinine 0.3 L Est GFR ( Amer) > 60 Est GFR (Non-Af Amer) > 60 Random Glucose 155 H Calcium 6.6 L Phosphorus 1.2 L Magnesium 1.8 Total Bilirubin AST ALT Alkaline Phosphatase Total Protein Albumin Globulin Albumin/Globulin Ratio 03/04/18 05:51 WBC RBC Hgb Hct MCV MCH MCHC RDW Plt Count MPV Neut % (Auto) Lymph % (Auto) Mingo % (Auto) Eos % (Auto) Baso % (Auto) Neut # (Auto) Lymph # (Auto) Mingo # (Auto) Eos # (Auto) Baso # (Auto) Neutrophils % (Manual) Band Neutrophils % Lymphocytes % (Manual) Monocytes % (Manual) Platelet Estimate Hypochromasia (manual) Poikilocytosis (manual Anisocytosis (manual) Target Cells Puncture Site pCO2 pO2 HCO3 ABG pH ABG Total CO2 ABG O2 Saturation ABG Base Excess ABG Hemoglobin ABG Carboxyhemoglobin POC ABG HHb (Measured) ABG Methemoglobin [place] Test A-a O2 Difference Respiratory Index Hgb O2 Saturation Vent Mode Mechanical Rate FiO2 Tidal Volume PEEP Sodium 131 L Potassium 2.1 L* Chloride 89 L Carbon Dioxide 39 H Anion Gap 6 L BUN 6 L Creatinine 0.3 L Est GFR ( Amer) > 60 Est GFR (Non-Af Amer) > 60 Random Glucose 133 H Calcium 6.1 L Phosphorus 1.4 L Magnesium 1.5 L Total Bilirubin 0.6 AST 26 ALT 16 L Alkaline Phosphatase 112 Total Protein 6.1 L Albumin 2.2 L Globulin 3.9 Albumin/Globulin Ratio 0.6 L Radiology Impressions: Radiology Impressions Chest X-Ray 03/04/18 04:00 IMPRESSION: No interval pathology noted. Similar bilateral patchy airspace over infiltrates in addition to diffuse interstitial lung disease and/or interstitial pulmonary edema presence. The pathology in the left lung regarding coalescent airspace opacities infiltrates is greater than that on the right and this is a similar status to before. Other findings as above. Results Reviewed to Date: Yes Review of Systems - Review of Systems Systems not reviewed;Unavailable: Intubated Critical Care Progress Note - Ventilator Checklist Head of Bed 30 Degrees: Yes Daily Sedation Vacation: Yes Daily Assessment of Readiness to Wean: Yes Daily Spontaneous Breathing Trial: Yes PUD Prophalyxis: Yes DVT Prophylaxis: Yes Oral Care with Chlorhexidine Gluconate {CHG}: Yes - Vent Settings MODE:: PRVC TIDAL VOLUME:: 450 RESP RATE:: 20 FIO2:: 50 PEEP:: 5 - Extremities/Vascular Does the Patient have a Central Venous Catheter?: Yes Does the Patient need a Central Venous Catheter?: Yes (hypotension) Does the Patient have a Simmons Catheter?: Yes Does the Patient need a Simmons Catheter?: Yes (strict is/os) Catheter Insertion Criteria: Need for accurate measurement of output in critically ill patient - Restraints Justification for Restraints: High risk for self extubation, High risk for removing IV access - Prophylaxis DVT Prophylaxis DVT: Heparin SQ Assessment/Plan - Assessment and Plan (Free Text) Assessment: 72yo M. PMHx COPD, Alzheimer's, CHF, arthritis. recent hospitalizaion for cholelithiasis and pneumonia. Discharged home receiving IV abx. presents back with worsening pneumonia, and progression into septic shock. Intubated in field at home. On ABG found to have hypercanpeic resp failure with leukocytosis Neuro: Intubated / Sedated; Precedex 200 mcg in NS; patient alert Pulm: Respiratory failure 2/2 PNA and pulm edema; On vent (20/50/450/5); Duonebs, Vanc/Meropenem/Micafungin CV: septic shock; Levophed drip; Central line inserted today Heme: No acute issues Renal: KCl in NS (40meq) @ 40mls/hr; KCl 10meq* 6 bags; KPhos 30mmol in NS x 1; will repeat bmp after infusions Endo: No acute issues GI: NPO, tube feedings (pulmocare) ID: Septic shock 2/2 PNA; Vanc/Meropenem/Micafungin; Vanc trough after 4th dose DVT ppx - heparin sq GI ppx - pepcid Tylenol solution prn for fever Simmons for strict I/O's during acute illness PGY-1 Merry Farias Case d/w Dr. Jara <Nino Jara S - Last Filed: 03/04/18 18:13> CCU Subjective - Physician Review Critical Care Time Spent (in minutes): 45 CCU Objective - Vital Signs / Intake & Output Vital Signs (Last 4 hours): Vital Signs Pulse Resp BP Pulse Ox 03/04/18 15:00 87 25 H 104/59 L 100 Intake and Output (Last 8hrs): Intake & Output 03/04/18 03/04/18 03/04/18 06:59 14:59 22:59 Intake Total 1809.8 1840.4 73.8 Output Total 1425 1780 Balance 384.8 60.4 73.8 Weight 127 lb 2 oz Intake: IV 124 280 50 Intake, IV Amount 1365.8 1310.4 23.8 Left Antecubital 366.8 160 Left Forearm 600 P/B left forarm 200 Proximal port IJ 120 R UA PICC 79.0 90.4 11.3 Right Forearm 100.0 100.0 12.5 Right PICC 320 40 right arm PICC 500 Tube Feeding 320 250 Output: Urine 1425 1780 Urethral (Simmons) 1425 1780 Stool 0 Other: # Bowel Movements 0 - Medications Active Medications: Active Medications Generic Name Dose Route Start Last Admin Trade Name Freq PRN Reason Stop Dose Admin Acetaminophen 650 mg 03/01/18 21:09 03/02/18 07:53 Tylenol 650mg/20.3ml Solution Ud NG 650 mg Q6 PRN Administration Fever >100.4 F Albuterol/Ipratropium 3 ml 03/02/18 14:00 03/04/18 13:26 Duoneb 3 Mg/0.5 Mg (3 Ml) Ud INH 3 ml RQ6 VELMA Administration Famotidine 20 mg 03/01/18 22:15 03/04/18 10:13 Pepcid IVP 20 mg Q12 VELMA Administration Heparin Sodium (Porcine) 5,000 units 03/01/18 22:00 03/03/18 21:12 Heparin SC 5,000 units Q8 VELMA Administration Norepinephrine Bitartrate 4 mg 254 mls @ 15.24 mls/hr 03/01/18 19:08 03/04/18 11:14 / Sodium Chloride IV 10 mcg/min .[id number] PRN 38.1 mls/hr TITRATE PER MD ORDER Administration Protocol 4 MCG/MIN Vancomycin HCl 1 gm/ Sodium 250 mls @ 166.7 mls/hr 03/02/18 18:00 03/04/18 17:17 Chloride IVPB 166.7 mls/hr Q24H VELMA Administration Protocol Potassium Chloride 40 meq/ 1,020 mls @ 40 mls/hr 03/03/18 08:00 03/04/18 08:15 Sodium Chloride IV 40 mls/hr .Q24H VELMA Administration Dexmedetomidine HCl 200 mcg/ 50 mls @ 2.77 mls/hr 03/03/18 07:40 03/04/18 17:08 Sodium Chloride IV 0.9 mcg/kg/hr TITR PRN 12.48 mls/hr Agitation Administration Protocol 0.2 MCG/KG/HR Micafungin Sodium 100 mg/ 100 mls @ 100 mls/hr 03/04/18 01:00 03/04/18 02:00 Sodium Chloride IV 100 mls/hr Q24H VELMA Administration Protocol Meropenem 500 mg/ Sodium 100 mls @ 100 mls/hr 03/04/18 01:15 03/04/18 17:06 Chloride IVPB 100 mls/hr Q8H VELMA Administration Protocol - Patient Studies Lab Studies: Microbiology Studies 03/02/18 00:20 Gram Stain - Final Sputum Sputum Culture - Final Escherichia Coli Yeast Species 03/01/18 19:09 Blood Culture - Preliminary Blood NO GROWTH AFTER 48 HOURS 03/01/18 19:09 Blood Culture - Preliminary Blood NO GROWTH AFTER 48 HOURS 03/02/18 00:19 MRSA Culture (Admit) - Final Naris MRSA NOT DETECTED Lab Studies 03/04/18 03/04/18 03/04/18 Range/Units 14:50 05:51 05:51 WBC 21.5 H (4.8-10.8) K/uL RBC 3.50 L (4.40-5.90) Mil/uL Hgb 10.2 L (12.0-18.0) g/dL Hct 31.0 L (35.0-51.0) % MCV 88.7 (80.0-94.0) fL MCH 29.2 (27.0-31.0) pg MCHC 32.9 L (33.0-37.0) g/dL RDW 14.4 (11.5-14.5) % Plt Count 300 (130-400) K/uL MPV 7.8 (7.2-11.7) fL Neut % (Auto) 92.8 H (50.0-75.0) % Lymph % (Auto) 4.0 L (20.0-40.0) % Mingo % (Auto) 3.0 (0.0-10.0) % Eos % (Auto) 0.1 (0.0-4.0) % Baso % (Auto) 0.1 (0.0-2.0) % Neut # (Auto) 20.0 H (1.8-7.0) K/uL Lymph # (Auto) 0.9 L (1.0-4.3) K/uL Mingo # (Auto) 0.7 (0.0-0.8) K/uL Eos # (Auto) 0.0 (0.0-0.7) K/uL Baso # (Auto) 0.0 (0.0-0.2) K/uL Neutrophils % (Manual) 92 H (50-75) % Band Neutrophils % 2 (0-2) % Lymphocytes % (Manual) 3 L (20-40) % Monocytes % (Manual) 3 (0-10) % Platelet Estimate Normal (NORMAL) Hypochromasia (manual) Slight Poikilocytosis (manual Slight Anisocytosis (manual) Slight Target Cells Slight Puncture Site pCO2 (35-45) mm/Hg pO2 (80-100) mm/Hg HCO3 (21-28) mmol/L ABG pH (7.35-7.45) ABG Total CO2 (22-28) mmol/L ABG O2 Saturation (95-98) % ABG Base Excess (-2.0-3.0) mmol/L ABG Hemoglobin (11.7-17.4) g/dL ABG Carboxyhemoglobin (0.5-1.5) % POC ABG HHb (Measured) (0.0-5.0) % ABG Methemoglobin (0.0-3.0) % [place] Test A-a O2 Difference mm/Hg Respiratory Index Hgb O2 Saturation (95.0-98.0) % Vent Mode Mechanical Rate FiO2 % Tidal Volume PEEP Sodium 133 131 L (132-148) mmol/L Potassium 3.8 2.1 L* (3.6-5.2) mmol/L Chloride 92 L 89 L (98-107) mmol/L Carbon Dioxide 38 H 39 H (22-30) mmol/L Anion Gap 7 L 6 L (10-20) BUN 5 L 6 L (9-20) mg/dL Creatinine 0.3 L 0.3 L (0.8-1.5) mg/dL Est GFR ( Amer) > 60 > 60 Est GFR (Non-Af Amer) > 60 > 60 Random Glucose 157 H 133 H (75-110) mg/dL Calcium 6.2 L 6.1 L (8.6-10.4) mg/dl Phosphorus 2.7 1.4 L (2.5-4.5) mg/dL Magnesium 1.8 1.5 L (1.6-2.3) mg/dL Total Bilirubin 0.6 (0.2-1.3) mg/dL AST 26 (17-59) U/L ALT 16 L (21-72) U/L Alkaline Phosphatase 112 (38-126) U/L Total Protein 6.1 L (6.3-8.3) g/dL Albumin 2.2 L (3.5-5.0) g/dL Globulin 3.9 (2.2-3.9) gm/dL Albumin/Globulin Ratio 0.6 L (1.0-2.1) 03/04/18 03/03/18 Range/Units 05:11 17:45 WBC (4.8-10.8) K/uL RBC (4.40-5.90) Mil/uL Hgb (12.0-18.0) g/dL Hct (35.0-51.0) % MCV (80.0-94.0) fL MCH (27.0-31.0) pg MCHC (33.0-37.0) g/dL RDW (11.5-14.5) % Plt Count (130-400) K/uL MPV (7.2-11.7) fL Neut % (Auto) (50.0-75.0) % Lymph % (Auto) (20.0-40.0) % Mingo % (Auto) (0.0-10.0) % Eos % (Auto) (0.0-4.0) % Baso % (Auto) (0.0-2.0) % Neut # (Auto) (1.8-7.0) K/uL Lymph # (Auto) (1.0-4.3) K/uL Mingo # (Auto) (0.0-0.8) K/uL Eos # (Auto) (0.0-0.7) K/uL Baso # (Auto) (0.0-0.2) K/uL Neutrophils % (Manual) (50-75) % Band Neutrophils % (0-2) % Lymphocytes % (Manual) (20-40) % Monocytes % (Manual) (0-10) % Platelet Estimate (NORMAL) Hypochromasia (manual) Poikilocytosis (manual Anisocytosis (manual) Target Cells Puncture Site Lrad pCO2 46 H (35-45) mm/Hg pO2 94 (80-100) mm/Hg HCO3 35.2 H (21-28) mmol/L ABG pH 7.53 H (7.35-7.45) ABG Total CO2 39.8 H (22-28) mmol/L ABG O2 Saturation 99.2 H (95-98) % ABG Base Excess 13.3 H (-2.0-3.0) mmol/L ABG Hemoglobin 19.5 H (11.7-17.4) g/dL ABG Carboxyhemoglobin 1.4 (0.5-1.5) % POC ABG HHb (Measured) 0.8 (0.0-5.0) % ABG Methemoglobin 1.4 (0.0-3.0) % [place] Test Pos A-a O2 Difference 205.0 mm/Hg Respiratory Index 2.2 Hgb O2 Saturation 96.4 (95.0-98.0) % Vent Mode Prvc Mechanical Rate 20 FiO2 50.0 % Tidal Volume 450 PEEP 5 Sodium 129 L (132-148) mmol/L Potassium 2.1 L* (3.6-5.2) mmol/L Chloride 89 L (98-107) mmol/L Carbon Dioxide 34 H (22-30) mmol/L Anion Gap 9 L (10-20) BUN 7 L (9-20) mg/dL Creatinine 0.3 L (0.8-1.5) mg/dL Est GFR ( Amer) > 60 Est GFR (Non-Af Amer) > 60 Random Glucose 155 H (75-110) mg/dL Calcium 6.6 L (8.6-10.4) mg/dl Phosphorus 1.2 L (2.5-4.5) mg/dL Magnesium 1.8 (1.6-2.3) mg/dL Total Bilirubin (0.2-1.3) mg/dL AST (17-59) U/L ALT (21-72) U/L Alkaline Phosphatase (38-126) U/L Total Protein (6.3-8.3) g/dL Albumin (3.5-5.0) g/dL Globulin (2.2-3.9) gm/dL Albumin/Globulin Ratio (1.0-2.1) Laboratory Results - last 24 hr 03/03/18 03/04/18 03/04/18 17:45 05:11 05:51 WBC 21.5 H RBC 3.50 L Hgb 10.2 L Hct 31.0 L MCV 88.7 MCH 29.2 MCHC 32.9 L RDW 14.4 Plt Count 300 MPV 7.8 Neut % (Auto) 92.8 H Lymph % (Auto) 4.0 L [place] % (Auto) 3.0 Eos % (Auto) 0.1 Baso % (Auto) 0.1 Neut # (Auto) 20.0 H Lymph # (Auto) 0.9 L [place] # (Auto) 0.7 Eos # (Auto) 0.0 Baso # (Auto) 0.0 Neutrophils % (Manual) 92 H Band Neutrophils % 2 Lymphocytes % (Manual) 3 L Monocytes % (Manual) 3 Platelet Estimate Normal Hypochromasia (manual) Slight Poikilocytosis (manual Slight Anisocytosis (manual) Slight Target Cells Slight Puncture Site Lrad pCO2 46 H pO2 94 HCO3 35.2 H ABG pH 7.53 H ABG Total CO2 39.8 H ABG O2 Saturation 99.2 H ABG Base Excess 13.3 H ABG Hemoglobin 19.5 H ABG Carboxyhemoglobin 1.4 POC ABG HHb (Measured) 0.8 ABG Methemoglobin 1.4 [place] Test Pos A-a O2 Difference 205.0 Respiratory Index 2.2 Hgb O2 Saturation 96.4 Vent Mode Prvc Mechanical Rate 20 FiO2 50.0 Tidal Volume 450 PEEP 5 Sodium 129 L Potassium 2.1 L* Chloride 89 L Carbon Dioxide 34 H Anion Gap 9 L BUN 7 L Creatinine 0.3 L Est GFR ( Amer) > 60 Est GFR (Non-Af Amer) > 60 Random Glucose 155 H Calcium 6.6 L Phosphorus 1.2 L Magnesium 1.8 Total Bilirubin AST ALT Alkaline Phosphatase Total Protein Albumin Globulin Albumin/Globulin Ratio 03/04/18 03/04/18 05:51 14:50 WBC RBC Hgb Hct MCV MCH MCHC RDW Plt Count MPV Neut % (Auto) Lymph % (Auto) [place] % (Auto) Eos % (Auto) Baso % (Auto) Neut # (Auto) Lymph # (Auto) [place] # (Auto) Eos # (Auto) Baso # (Auto) Neutrophils % (Manual) Band Neutrophils % Lymphocytes % (Manual) Monocytes % (Manual) Platelet Estimate Hypochromasia (manual) Poikilocytosis (manual Anisocytosis (manual) Target Cells Puncture Site pCO2 pO2 HCO3 ABG pH ABG Total CO2 ABG O2 Saturation ABG Base Excess ABG Hemoglobin ABG Carboxyhemoglobin POC ABG HHb (Measured) ABG Methemoglobin [place] Test A-a O2 Difference Respiratory Index Hgb O2 Saturation Vent Mode Mechanical Rate FiO2 Tidal Volume PEEP Sodium 131 L 133 Potassium 2.1 L* 3.8 Chloride 89 L 92 L Carbon Dioxide 39 H 38 H Anion Gap 6 L 7 L BUN 6 L 5 L Creatinine 0.3 L 0.3 L Est GFR ( Amer) > 60 > 60 Est GFR (Non-Af Amer) > 60 > 60 Random Glucose 133 H 157 H Calcium 6.1 L 6.2 L Phosphorus 1.4 L 2.7 Magnesium 1.5 L 1.8 Total Bilirubin 0.6 AST 26 ALT 16 L Alkaline Phosphatase 112 Total Protein 6.1 L Albumin 2.2 L Globulin 3.9 Albumin/Globulin Ratio 0.6 L Radiology Impressions: Radiology Impressions Chest X-Ray 03/04/18 04:00 IMPRESSION: No interval pathology noted. Similar bilateral patchy airspace over infiltrates in addition to diffuse interstitial lung disease and/or interstitial pulmonary edema presence. The pathology in the left lung regarding coalescent airspace opacities infiltrates is greater than that on the right and this is a similar status to before. Other findings as above. Chest X-Ray 03/04/18 11:11 IMPRESSION: Insertion left central internal jugular venous catheter with tip in central innominate-correlate clinically. No pneumothorax. The other extensive airspace opacities most extensive throughout the left hemithorax and to lesser extent the right lung base and medial right lung base appears similar with slight increased air bronchograms increasing consolidation suggested in these locations. Background interstitial lung disease process and/or interstitial pulmonary edema is suspect. Cardiomegaly and pulmonary venous congestion-similar Endotracheal tube, NG tube tips are similar appear satisfactory in position.. Attending/Attestation - Attestation I have personally seen and examined this patient.: Yes I have fully participated in the care of the patient.: Yes I have reviewed all pertinent clinical information: Yes Notes (Text): 03/04/18 18:12 patient seen and examined in the intensive care unit. triple-lumen catheter inserted and left internal jugular vein Continue pressors Continue antibiotics Follow-up chest x-ray IV sedation replete Potassium, magnesium and phosphorus NG tube feeding Monitor intake and output
--- NOTE | 2018-03-04 12:45 | RAD ---
Date of service: 03/04/2018 HISTORY: central line placement COMPARISON: 03/04/2018 FINDINGS: LUNGS: The extensive coalescing airspace and interstitial opacities obscuring the inferior to inferior 2/3 left hemithorax appears similar. There is some left perihilar medial right infrahilar air bronchograms more conspicuous compatible with areas of greater consolidation at these, are similar. moderate right superolateral pleural thickening reaction is as before. The background interstitial lung disease and/or interstitial pulmonary edema process is similar Endotracheal tube tip approximately 4 cm cephalad to mandie. All findings above are similar. PLEURA: The small bilateral pleural effusions effusions and the moderate right superolateral pleural thickening all appear similar. No pneumothorax seen. CARDIOVASCULAR: There is presence of aortic atherosclerotic calcification on x-ray. Cardiomegaly as before . Similar pulmonary venous congestion Interval left internal jugular vein central venous catheter tip over central innominate. OSSEOUS STRUCTURES: Partially visualized orthopedic hardware over both proximal humeri Generalized osteopenia. Cervical-thoracic spondylosis. VISUALIZED UPPER ABDOMEN: NG tube tip in stomach. OTHER FINDINGS: None. IMPRESSION: Insertion left central internal jugular venous catheter with tip in central innominate-correlate clinically. No pneumothorax. The other extensive airspace opacities most extensive throughout the left hemithorax and to lesser extent the right lung base and medial right lung base appears similar with slight increased air bronchograms increasing consolidation suggested in these locations. Background interstitial lung disease process and/or interstitial pulmonary edema is suspect. Cardiomegaly and pulmonary venous congestion-similar Endotracheal tube, NG tube tips are similar appear satisfactory in position..
--- NOTE | 2018-03-04 14:24 | CP.PCM.PN ---
Subjective - Date & Time of Evaluation Date of Evaluation: 03/04/18 Time of Evaluation: 14:22 - Subjective Subjective: Patient remains intubated on a respirator with IV sedation. Patient arousable with eye contact Vital signs, blood pressure is fluctuating from 79-130 systolic. Urine output has increased to 4 L Chest x-ray shows airspace disease with CHF Sputum shows E. coli ESBL Discussed extensively with the family of patient's conditions and prognosis. If the blood pressure remained stable we will administer IV Lasix. Objective - Vital Signs/Intake and Output Vital Signs (last 24 hours): Temp Pulse Resp BP Pulse Ox 97.6 F 83 21 114/68 100 03/04/18 12:00 03/04/18 12:09 03/04/18 12:09 03/04/18 12:09 03/04/18 12:09 Intake and Output: 03/04/18 03/04/18 11:59 23:59 Intake Total 2433.1 130 Output Total 2110 275 Balance 323.1 -145 - Medications Medications: Current Medications Acetaminophen (Tylenol 650mg/20.3ml Solution Ud) 650 mg NG Q6 PRN PRN Reason: Fever >100.4 F Last Admin: 03/02/18 07:53 Dose: 650 mg Albuterol/Ipratropium (Duoneb 3 Mg/0.5 Mg (3 Ml) Ud) 3 ml INH RQ6 VELMA Last Admin: 03/04/18 13:26 Dose: 3 ml Famotidine (Pepcid) 20 mg IVP Q12 VELAM Last Admin: 03/04/18 10:13 Dose: 20 mg Heparin Sodium (Porcine) (Heparin) 5,000 units SC Q8 VELMA Last Admin: 03/03/18 21:12 Dose: 5,000 units Norepinephrine Bitartrate 4 mg (/ Sodium Chloride) 254 mls @ 15.24 mls/hr IV .[id number] PRN; Protocol PRN Reason: TITRATE PER MD ORDER Last Admin: 03/04/18 11:14 Dose: 10 mcg/min, 38.1 mls/hr Vancomycin HCl 1 gm/ Sodium (Chloride) 250 mls @ 166.7 mls/hr IVPB Q24H VELMA; Protocol Last Admin: 03/03/18 18:45 Dose: 166.7 mls/hr Potassium Chloride 40 meq/ (Sodium Chloride) 1,020 mls @ 40 mls/hr IV .Q24H VELMA Last Admin: 03/04/18 08:15 Dose: 40 mls/hr Dexmedetomidine HCl 200 mcg/ (Sodium Chloride) 50 mls @ 2.77 mls/hr IV TITR PRN; Protocol PRN Reason: Agitation Last Admin: 03/04/18 13:13 Dose: 0.9 mcg/kg/hr, 12.48 mls/hr Micafungin Sodium 100 mg/ (Sodium Chloride) 100 mls @ 100 mls/hr IV Q24H VELMA; Protocol Last Admin: 03/04/18 02:00 Dose: 100 mls/hr Meropenem 500 mg/ Sodium (Chloride) 100 mls @ 100 mls/hr IVPB Q8H VELMA; Protocol Last Admin: 03/04/18 09:22 Dose: 100 mls/hr - Labs Labs: 03/04/18 05:51 03/04/18 05:51
[2018-03-04 15:17] LABS: BLOOD UREA NITROGEN 5 mg/dL (9-20); CALCIUM 6.2 mg/dl (8.6-10.4); GFR NON-AFRICAN AMERICAN > 60
[2018-03-04] MEDS ORDERED: Vasopressin 20 Units/ml Inj SC ONE (22:04)
--- NOTE | 2018-03-04 22:12 | CP.PCM.PN ---
Subjective - Date & Time of Evaluation Date of Evaluation: 03/04/18 Time of Evaluation: 22:12 - Subjective Subjective: AFEBRILE more awake INTUBATED.+VE NGT FAMILY AT BEDSIDE SPUTUM +VE esbl+ve E.COLI S- MERREM /YEAST SP. WBC 21.5 CXR 03/04/18 -NO CHANGE PVC, B/L INFILTRATES L>RT. Objective - Vital Signs/Intake and Output Vital Signs (last 24 hours): Temp Pulse Resp BP Pulse Ox 98.2 F 106 H 37 H 78/48 L 99 03/04/18 20:00 03/04/18 21:04 03/04/18 21:04 03/04/18 21:04 03/04/18 21:04 Intake and Output: 03/04/18 03/05/18 18:59 06:59 Intake Total 2750.4 616.5 Output Total 1780 2150 Balance 970.4 -1533.5 - Medications Medications: Current Medications Acetaminophen (Tylenol 650mg/20.3ml Solution Ud) 650 mg NG Q6 PRN PRN Reason: Fever >100.4 F Last Admin: 03/02/18 07:53 Dose: 650 mg Albuterol/Ipratropium (Duoneb 3 Mg/0.5 Mg (3 Ml) Ud) 3 ml INH RQ6 VELMA Last Admin: 03/04/18 20:55 Dose: 3 ml Famotidine (Pepcid) 20 mg IVP Q12 VELMA Last Admin: 03/04/18 21:23 Dose: 20 mg Norepinephrine Bitartrate 4 mg (/ Sodium Chloride) 254 mls @ 15.24 mls/hr IV .[id number] PRN; Protocol PRN Reason: TITRATE PER MD ORDER Last Titration: 03/04/18 21:16 Dose: 12 mcg/min, 45.72 mls/hr Vancomycin HCl 1 gm/ Sodium (Chloride) 250 mls @ 166.7 mls/hr IVPB Q24H VELMA; Protocol Last Admin: 03/04/18 17:17 Dose: 166.7 mls/hr Potassium Chloride 40 meq/ (Sodium Chloride) 1,020 mls @ 40 mls/hr IV .Q24H VELMA Last Admin: 03/04/18 08:15 Dose: 40 mls/hr Dexmedetomidine HCl 200 mcg/ (Sodium Chloride) 50 mls @ 2.77 mls/hr IV TITR PRN; Protocol PRN Reason: Agitation Last Titration: 03/04/18 21:59 Dose: 1.4 mcg/kg/hr, 19.42 mls/hr Micafungin Sodium 100 mg/ (Sodium Chloride) 100 mls @ 100 mls/hr IV Q24H VELMA; Protocol Last Admin: 03/04/18 02:00 Dose: 100 mls/hr Meropenem 500 mg/ Sodium (Chloride) 100 mls @ 100 mls/hr IVPB Q8H VELMA; Protocol Last Admin: 03/04/18 17:06 Dose: 100 mls/hr - Labs Labs: 03/04/18 05:51 03/04/18 14:50 - Constitutional Appears: No Acute Distress, Cachectic, Chronically Ill - Head Exam Head Exam: NORMAL INSPECTION - Eye Exam Eye Exam: EOMI, PERRL - ENT Exam ENT Exam: Mucous Membranes Moist - Neck Exam Neck Exam: Normal Inspection - Respiratory Exam Respiratory Exam: Rales (B/L), Rhonchi - Cardiovascular Exam Cardiovascular Exam: Tachycardia, REGULAR RHYTHM, +S1, +S2 - GI/Abdominal Exam GI & Abdominal Exam: Soft, Tenderness (ON PALPATIONMID ABDOMEN.), Normal Bowel Sounds - Extremities Exam Extremities Exam: absent: Calf Tenderness, Pedal Edema - Neurological Exam Neurological Exam: Awake, CN II-XII Intact - Psychiatric Exam Psychiatric exam: Flat Affect - Skin Skin Exam: Normal Color, Warm Assessment and Plan (1) Sepsis associated hypotension Status: Acute (2) Respiratory failure requiring intubation Status: Acute (3) Altered mental status Status: Acute (4) Pneumonia Status: Acute (5) Abdominal pain Status: Acute (6) Cholelithiases Status: Acute - Assessment and Plan (Free Text) Plan: CONTINUE IV MERREM 500MG IVPB Q8HRLY 03/04/18 CONTINUE IV VANCOMYCIN 1GM IVPB [id number] 03/01/18. VANCO TROUGH PRIOR TO 4TH DOSE AND KEEP BETWEEN 10-20MG/DL. CONTINUE IV MYCAFUNGIN 100MG IV PB Q 24 HRLY 03/04/18 ADD IV FLAGYL 500MG IV [id number] FOR ANAEROBIC COVERAGE 03/05/18 PROGNOSIS GUARDED. CASE DISCUSSED WITH STAFF
[2018-03-05] MEDS: Meropenem 500 MG in Sodium Chloride 0.9% 100 ML IVPB SCH ×3 (00:29→18:00)
[2018-03-05] MEDS: Micafungin 100 MG in Sodium Chloride 0.9% 100 ML IV SCH (00:29)
[2018-03-05] MEDS: metroNIDAZOLE IV 500 mg/100 ml 500 MG/100 ML BAG IVPB SCH ×2 (02:36→14:44)
[2018-03-05] MEDS: Albuterol-Ipratrop 3 mg / 0.5 (3 ml) UD INH SCH ×4 (02:45→19:39)
[2018-03-05] MEDS: Dexmedetomidine Hydrochloride 200 MCG in Sodium Chloride 0.9% 48 ML IV PRN ×6 (03:54→22:23)
[2018-03-05 05:02] LABS: ARTERIAL BLOOD GAS HCO3 34.1 mmol/L (21-28); ARTERIAL BLOOD GAS O2 SAT 98.7 % (95-98); ARTERIAL BLOOD GAS PCO2 43 mm/Hg (35-45); ARTERIAL BLOOD GAS PH 7.53 (7.35-7.45); ARTERIAL BLOOD GAS PO2 86 mm/Hg (80-100); ARTERIAL BLOOD GAS TCO2 37.2 mmol/L (22-28)
[2018-03-05 05:43] LABS: BASO # 0.1 K/uL (0.0-0.2); BASO % 0.4 % (0.0-2.0); EOS % 0.1 % (0.0-4.0); HEMOGLOBIN 10.9 g/dL (12.0-18.0); MEAN CELL VOLUME 88.9 fL (80.0-94.0); MEAN CORPUSCULAR HEMOGLOBIN 29.5 pg (27.0-31.0); MEAN CORPUSCULAR HGB CONC 33.2 g/dL (33.0-37.0); MEAN PLATELET VOLUME 7.9 fL (7.2-11.7); MONO # 0.9 K/uL (0.0-0.8); NEUT # 15.5 K/uL (1.8-7.0); NEUT % 88.5 % (50.0-75.0); PLATELET COUNT 296 K/uL (130-400); RBC 3.68 Mil/uL (4.40-5.90); RED CELL DISTRIBUTION WIDTH 14.8 % (11.5-14.5); WHITE BLOOD COUNT 17.5 K/uL (4.8-10.8)
[2018-03-05 06:02] LABS: ALB/GLOB RATIO 0.7 (1.0-2.1); ALBUMIN 2.7 g/dL (3.5-5.0); ALT/SGPT 19 U/L (21-72); AST/SGOT 24 U/L (17-59); BLOOD UREA NITROGEN 4 mg/dL (9-20); CALCIUM 6.1 mg/dl (8.6-10.4); GFR NON-AFRICAN AMERICAN > 60
[2018-03-05] MEDS ORDERED: Sodium Chloride 0.9% 500 ML IV ONE (06:11)
[2018-03-05] MEDS ORDERED: Potassium Chloride 20 mEq 100 ML ONE (06:32)
[2018-03-05] MEDS ORDERED: Sodium Chloride 0.9% 1,000 ML IV SCH ×3 (07:17→11:25)
[2018-03-05 08:14] LABS: ANISOCYTOSIS SLIGHT; BANDS 1 % (0-2); HYPOCHROMIC SLIGHT; LYMPHOCYTE 3 % (20-40); MONOCYTE 4 % (0-10); NEUTROPHIL 92 % (50-75); PLATELET ESTIMATE NORMAL (NORMAL); POIKILOCYTOSIS SLIGHT; TOTAL CELLS COUNTED 100
[2018-03-05 08:15] LABS: LARGE PLATELETS PRESENT; OVALOCYTES SLIGHT
--- NOTE | 2018-03-05 10:14 | RAD ---
Date of service: 03/05/2018 HISTORY: intubated COMPARISON: 03/04/2018 FINDINGS: Endotracheal tube terminates in the mid trachea. The nasogastric tube terminates in the stomach. The left IJV line terminates in the brachiocephalic vein. LUNGS: Again seen is diffuse interstitial thickening in the peripheral lungs. There is patchy airspace disease in the right lower lobe, lingula and left lower lobe. PLEURA: No pleural effusions or pneumothorax. The right lateral pleural thickening. CARDIOVASCULAR: The heart is normal in size. No aortic atherosclerotic calcification present. OSSEOUS STRUCTURES: Within normal limits for the patient's age. VISUALIZED UPPER ABDOMEN: Normal. OTHER FINDINGS: None. IMPRESSION: Little interval change in multifocal airspace disease in the right lower lobe and in the left lung. Background of interstitial pulmonary disease. Stable position of support line and tubes.
[2018-03-05] MEDS: Sodium Chloride 0.9% 1,000 ML IV SCH ×9 (12:15→22:34)
--- NOTE | 2018-03-05 12:27 | CP.CCUPN ---
<Merry Farias - Last Filed: 03/05/18 12:25> CCU Subjective - Physician Review Events Since Last Encounter (Free Text): 03/05/18 12:27 Overnight patient became tachycardic with decreased blood pressure. Levophed was increased to 10mcg/kg/min and 1 x dose of Cardizem 10mg was given. Heart rate went down to 120s and BP was at 102/66. Likely 2/2 electrolyte abnormalities. Subjective (Free Text): 03/03/18 10:02 Critical Care Progress Note for Dr. Jara's service Patient seen and examined at bedside. 12 point ROS limited 2/2 patient clinical condition. Central catheter was inserted for blood pressure management. Clinically unchanged from prior interview. CCU Objective - Vital Signs / Intake & Output Intake and Output (Last 8hrs): Intake & Output 03/04/18 03/05/18 03/05/18 22:59 06:59 14:59 Intake Total 1630.9 2131.7 2010.1 Output Total 2700 2725 2100 Balance -1069.1 -593.3 -89.9 Weight 119 lb Intake: IV 264 244 250 Intake, IV Amount 1046.9 1567.7 1600.1 Left Distal Port 800 200 Left Forearm 300 Left Hand 1000 Proximal port IJ 320 320 160 R UA PICC 307.5 292.5 150.0 Right Forearm 119.4 155.2 90.1 Tube Feeding 320 320 160 Output: Urine 2700 2725 2100 Urethral (Simmons) 2700 2725 2100 Stool 0 Other: # Bowel Movements 0 0 0 - Physical Exam Physical Exam Limitations: Positive for: Clinical Condition Head: Positive for: Atraumatic, Normocephalic Conjunctiva: Positive for: Normal Ears: Positive for: Normal Mouth: Positive for: Dry Neck: Negative for: JVD Respiratory/Chest: Positive for: Good Air Exchange, Rhonchi. Negative for: Respiratory Distress Cardiovascular: Positive for: Regular Rate and Rhythm, Normal S1, S2. Negative for: Murmurs, Irregular Rhythm, Tachycardic, Bradycardic Abdomen: Positive for: Normal Bowel Sounds. Negative for: Tenderness, Distention, Peritoneal Signs Upper Extremity: Positive for: Normal Inspection. Negative for: Cyanosis, Edema Lower Extremity: Positive for: Normal Inspection. Negative for: Edema Skin: Positive for: Dry, Normal Color - Medications Active Medications: Active Medications Generic Name Dose Route Start Last Admin Trade Name Freq PRN Reason Stop Dose Admin Acetaminophen 650 mg 03/01/18 21:09 03/02/18 07:53 Tylenol 650mg/20.3ml Solution Ud NG 650 mg Q6 PRN Administration Fever >100.4 F Albuterol/Ipratropium 3 ml 03/02/18 14:00 03/05/18 07:58 Duoneb 3 Mg/0.5 Mg (3 Ml) Ud INH 3 ml RQ6 VELMA Administration Famotidine 20 mg 03/01/18 22:15 03/05/18 10:28 Pepcid IVP 20 mg Q12 VELMA Administration Norepinephrine Bitartrate 4 mg 254 mls @ 15.24 mls/hr 03/01/18 19:08 03/05/18 07:44 / Sodium Chloride IV 10 mcg/min .[id number] PRN 38.1 mls/hr TITRATE PER MD ORDER Administration Protocol 4 MCG/MIN Vancomycin HCl 1 gm/ Sodium 250 mls @ 166.7 mls/hr 03/02/18 18:00 03/04/18 17:17 Chloride IVPB 166.7 mls/hr Q24H VELMA Administration Protocol Dexmedetomidine HCl 200 mcg/ 50 mls @ 2.77 mls/hr 03/03/18 07:40 03/05/18 09:37 Sodium Chloride IV 1.4 mcg/kg/hr TITR PRN 19.42 mls/hr Agitation Administration Protocol 0.2 MCG/KG/HR Micafungin Sodium 100 mg/ 100 mls @ 100 mls/hr 03/04/18 01:00 03/05/18 00:29 Sodium Chloride IV 100 mls/hr Q24H VELMA Administration Protocol Meropenem 500 mg/ Sodium 100 mls @ 100 mls/hr 03/04/18 01:15 03/05/18 08:19 Chloride IVPB 100 mls/hr Q8H VELMA Administration Protocol Metronidazole 500 mg in 100 mls @ 100 mls/hr 03/05/18 01:30 03/05/18 02:36 Flagyl IVPB 100 mls/hr Q12H VELMA Administration Protocol Desmopressin Acetate 2 mcg/ 50.5 mls @ 100 mls/hr 03/05/18 10:00 12/19/18 10:25 Sodium Chloride IV 100 mls/hr Q12 VELMA Administration Potassium Chloride 40 meq/ 1,020 mls @ 1 mls/hr 03/05/18 09:20 03/05/18 10:00 Sodium Chloride IV 1 mls/hr .Q24H VELMA Administration Sodium Chloride 1,000 mls @ 0 mls/hr 03/05/18 11:45 03/05/18 12:15 Sodium Chloride 0.9% IV 225 mls/hr .Q0M VELMA Administration UD Magnesium Sulfate/Dextrose 1 gm in 100 mls @ 200 mls/hr 03/05/18 12:16 Magnesium Sulfate 1 Gm/100 Ml D5w IVPB 03/05/18 12:45 ONCE ONE - Patient Studies Lab Studies: Microbiology Studies 03/04/18 05:50 Blood Culture - Preliminary Blood-Thru Central Line NO GROWTH AFTER 24 HOURS 03/04/18 05:50 Blood Culture - Preliminary Blood-Thru Central Line NO GROWTH AFTER 24 HOURS 03/01/18 19:09 Blood Culture - Preliminary Blood NO GROWTH AFTER 3 DAYS 03/01/18 19:09 Blood Culture - Preliminary Blood NO GROWTH AFTER 3 DAYS 03/02/18 00:20 Gram Stain - Final Sputum Sputum Culture - Final Escherichia Coli Yeast Species Lab Studies 03/05/18 03/05/18 03/05/18 Range/Units 05:37 05:35 04:55 WBC 17.5 H (4.8-10.8) K/uL RBC 3.68 L (4.40-5.90) Mil/uL Hgb 10.9 L (12.0-18.0) g/dL Hct 32.7 L (35.0-51.0) % MCV 88.9 (80.0-94.0) fL MCH 29.5 (27.0-31.0) pg MCHC 33.2 (33.0-37.0) g/dL RDW 14.8 H (11.5-14.5) % Plt Count 296 (130-400) K/uL MPV 7.9 (7.2-11.7) fL Neut % (Auto) 88.5 H (50.0-75.0) % Lymph % (Auto) 6.0 L (20.0-40.0) % Rusk % (Auto) 5.0 (0.0-10.0) % Eos % (Auto) 0.1 (0.0-4.0) % Baso % (Auto) 0.4 (0.0-2.0) % Neut # (Auto) 15.5 H (1.8-7.0) K/uL Lymph # (Auto) 1.0 (1.0-4.3) K/uL Rusk # (Auto) 0.9 H (0.0-0.8) K/uL Eos # (Auto) 0.0 (0.0-0.7) K/uL Baso # (Auto) 0.1 (0.0-0.2) K/uL Neutrophils % (Manual) 92 H (50-75) % Band Neutrophils % 1 (0-2) % Lymphocytes % (Manual) 3 L (20-40) % Monocytes % (Manual) 4 (0-10) % Platelet Estimate Normal (NORMAL) Large Platelets Present Hypochromasia (manual) Slight Poikilocytosis (manual Slight Anisocytosis (manual) Slight Ovalocytes Slight Puncture Site Lb pCO2 43 (35-45) mm/Hg pO2 86 (80-100) mm/Hg HCO3 34.1 H (21-28) mmol/L ABG pH 7.53 H (7.35-7.45) ABG Total CO2 37.2 H (22-28) mmol/L ABG O2 Saturation 98.7 H (95-98) % ABG Base Excess 11.8 H (-2.0-3.0) mmol/L Bereket Test Na ABG Potassium 2.4 L* (3.6-5.2) mmol/L A-a O2 Difference 217.0 mm/Hg Respiratory Index 2.5 Glucose 135 H (75-110) mg/dl Lactate 1.2 (0.7-2.1) mmol/L Vent Mode Prvc Mechanical Rate 20 FiO2 50.0 % Tidal Volume 450 PEEP 5 Crit Value Called To Isaías rn Crit Value Called By Vikram barrow instructor knitting Crit Value Read Back Y Blood Gas Notified Time 502 Sodium 130 L 135.0 (132-148) mmol/L Potassium 2.7 L (3.6-5.2) mmol/L Chloride 89 L 95.0 L (98-107) mmol/L Carbon Dioxide 36 H (22-30) mmol/L Anion Gap 8 L (10-20) BUN 4 L (9-20) mg/dL Creatinine 0.2 L (0.8-1.5) mg/dL Est GFR ( Amer) > 60 Est GFR (Non-Af Amer) > 60 Random Glucose 138 H (75-110) mg/dL Calcium 6.1 L (8.6-10.4) mg/dl Phosphorus 2.0 L (2.5-4.5) mg/dL Magnesium 1.4 L (1.6-2.3) mg/dL Total Bilirubin 0.7 (0.2-1.3) mg/dL AST 24 (17-59) U/L ALT 19 L (21-72) U/L Alkaline Phosphatase 120 (38-126) U/L Total Protein 6.8 (6.3-8.3) g/dL Albumin 2.7 L D (3.5-5.0) g/dL Globulin 4.1 H (2.2-3.9) gm/dL Albumin/Globulin Ratio 0.7 L (1.0-2.1) Arterial Blood Potassium 2.4 L* (3.6-5.2) mmol/L 03/04/18 Range/Units 14:50 WBC (4.8-10.8) K/uL RBC (4.40-5.90) Mil/uL Hgb (12.0-18.0) g/dL Hct (35.0-51.0) % MCV (80.0-94.0) fL MCH (27.0-31.0) pg MCHC (33.0-37.0) g/dL RDW (11.5-14.5) % Plt Count (130-400) K/uL MPV (7.2-11.7) fL Neut % (Auto) (50.0-75.0) % Lymph % (Auto) (20.0-40.0) % Rusk % (Auto) (0.0-10.0) % Eos % (Auto) (0.0-4.0) % Baso % (Auto) (0.0-2.0) % Neut # (Auto) (1.8-7.0) K/uL Lymph # (Auto) (1.0-4.3) K/uL Rusk # (Auto) (0.0-0.8) K/uL Eos # (Auto) (0.0-0.7) K/uL Baso # (Auto) (0.0-0.2) K/uL Neutrophils % (Manual) (50-75) % Band Neutrophils % (0-2) % Lymphocytes % (Manual) (20-40) % Monocytes % (Manual) (0-10) % Platelet Estimate (NORMAL) Large Platelets Hypochromasia (manual) Poikilocytosis (manual Anisocytosis (manual) Ovalocytes Puncture Site pCO2 (35-45) mm/Hg pO2 (80-100) mm/Hg HCO3 (21-28) mmol/L ABG pH (7.35-7.45) ABG Total CO2 (22-28) mmol/L ABG O2 Saturation (95-98) % ABG Base Excess (-2.0-3.0) mmol/L Bereket Test ABG Potassium (3.6-5.2) mmol/L A-a O2 Difference mm/Hg Respiratory Index Glucose (75-110) mg/dl Lactate (0.7-2.1) mmol/L Vent Mode Mechanical Rate FiO2 % Tidal Volume PEEP Crit Value Called To Crit Value Called By Crit Value Read Back Blood Gas Notified Time Sodium 133 (132-148) mmol/L Potassium 3.8 (3.6-5.2) mmol/L Chloride 92 L (98-107) mmol/L Carbon Dioxide 38 H (22-30) mmol/L Anion Gap 7 L (10-20) BUN 5 L (9-20) mg/dL Creatinine 0.3 L (0.8-1.5) mg/dL Est GFR ( Amer) > 60 Est GFR (Non-Af Amer) > 60 Random Glucose 157 H (75-110) mg/dL Calcium 6.2 L (8.6-10.4) mg/dl Phosphorus 2.7 (2.5-4.5) mg/dL Magnesium 1.8 (1.6-2.3) mg/dL Total Bilirubin (0.2-1.3) mg/dL AST (17-59) U/L ALT (21-72) U/L Alkaline Phosphatase (38-126) U/L Total Protein (6.3-8.3) g/dL Albumin (3.5-5.0) g/dL Globulin (2.2-3.9) gm/dL Albumin/Globulin Ratio (1.0-2.1) Arterial Blood Potassium (3.6-5.2) mmol/L Laboratory Results - last 24 hr 03/04/18 03/05/18 03/05/18 14:50 04:55 05:35 WBC RBC Hgb Hct MCV MCH MCHC RDW Plt Count MPV Neut % (Auto) Lymph % (Auto) Rusk % (Auto) Eos % (Auto) Baso % (Auto) Neut # (Auto) Lymph # (Auto) Rusk # (Auto) Eos # (Auto) Baso # (Auto) Neutrophils % (Manual) Band Neutrophils % Lymphocytes % (Manual) Monocytes % (Manual) Platelet Estimate Large Platelets Hypochromasia (manual) Poikilocytosis (manual Anisocytosis (manual) Ovalocytes Puncture Site Lb pCO2 43 pO2 86 HCO3 34.1 H ABG pH 7.53 H ABG Total CO2 37.2 H ABG O2 Saturation 98.7 H ABG Base Excess 11.8 H Bereket Test Na ABG Potassium 2.4 L* A-a O2 Difference 217.0 Respiratory Index 2.5 Glucose 135 H Lactate 1.2 Vent Mode Prvc Mechanical Rate 20 FiO2 50.0 Tidal Volume 450 PEEP 5 Crit Value Called To Isaías rn Crit Value Called By Vikram barrow instructor knitting Crit Value Read Back Y Blood Gas Notified Time 502 Sodium 133 135.0 130 L Potassium 3.8 2.7 L Chloride 92 L 95.0 L 89 L Carbon Dioxide 38 H 36 H Anion Gap 7 L 8 L BUN 5 L 4 L Creatinine 0.3 L 0.2 L Est GFR ( Amer) > 60 > 60 Est GFR (Non-Af Amer) > 60 > 60 Random Glucose 157 H 138 H Calcium 6.2 L 6.1 L Phosphorus 2.7 2.0 L Magnesium 1.8 1.4 L Total Bilirubin 0.7 AST 24 ALT 19 L Alkaline Phosphatase 120 Total Protein 6.8 Albumin 2.7 L D Globulin 4.1 H Albumin/Globulin Ratio 0.7 L Arterial Blood Potassium 2.4 L* 03/05/18 05:37 WBC 17.5 H RBC 3.68 L Hgb 10.9 L Hct 32.7 L MCV 88.9 MCH 29.5 MCHC 33.2 RDW 14.8 H Plt Count 296 MPV 7.9 Neut % (Auto) 88.5 H Lymph % (Auto) 6.0 L Rusk % (Auto) 5.0 Eos % (Auto) 0.1 Baso % (Auto) 0.4 Neut # (Auto) 15.5 H Lymph # (Auto) 1.0 Rusk # (Auto) 0.9 H Eos # (Auto) 0.0 Baso # (Auto) 0.1 Neutrophils % (Manual) 92 H Band Neutrophils % 1 Lymphocytes % (Manual) 3 L Monocytes % (Manual) 4 Platelet Estimate Normal Large Platelets Present Hypochromasia (manual) Slight Poikilocytosis (manual Slight Anisocytosis (manual) Slight Ovalocytes Slight Puncture Site pCO2 pO2 HCO3 ABG pH ABG Total CO2 ABG O2 Saturation ABG Base Excess Bereket Test ABG Potassium A-a O2 Difference Respiratory Index Glucose Lactate Vent Mode Mechanical Rate FiO2 Tidal Volume PEEP Crit Value Called To Crit Value Called By Crit Value Read Back Blood Gas Notified Time Sodium Potassium Chloride Carbon Dioxide Anion Gap BUN Creatinine Est GFR ( Amer) Est GFR (Non-Af Amer) Random Glucose Calcium Phosphorus Magnesium Total Bilirubin AST ALT Alkaline Phosphatase Total Protein Albumin Globulin Albumin/Globulin Ratio Arterial Blood Potassium Radiology Impressions: Radiology Impressions Chest X-Ray 03/04/18 11:11 IMPRESSION: Insertion left central internal jugular venous catheter with tip in central innominate-correlate clinically. No pneumothorax. The other extensive airspace opacities most extensive throughout the left hemithorax and to lesser extent the right lung base and medial right lung base appears similar with slight increased air bronchograms increasing consolidation suggested in these locations. Background interstitial lung disease process and/or interstitial pulmonary edema is suspect. Cardiomegaly and pulmonary venous congestion-similar Endotracheal tube, NG tube tips are similar appear satisfactory in position.. Chest X-Ray 03/05/18 07:00 IMPRESSION: Little interval change in multifocal airspace disease in the right lower lobe and in the left lung. Background of interstitial pulmonary disease. Stable position of support line and tubes. Review of Systems - Review of Systems Systems not reviewed;Unavailable: Intubated Critical Care Progress Note - Ventilator Checklist Head of Bed 30 Degrees: Yes Daily Sedation Vacation: Yes Daily Assessment of Readiness to Wean: Yes Daily Spontaneous Breathing Trial: Yes PUD Prophalyxis: Yes DVT Prophylaxis: Yes - Vent Settings MODE:: PRVC - Extremities/Vascular Does the Patient have a Central Venous Catheter?: Yes Insertion Site: Internal Jugular Vein Does the Patient need a Central Venous Catheter?: Yes (hypotension) Does the Patient have a Simmons Catheter?: Yes Does the Patient need a Simmons Catheter?: Yes (Is/Os) Catheter Insertion Criteria: Need for accurate measurement of output in critically ill patient - Restraints Justification for Restraints: High risk for self extubation, High risk for removing IV access - Prophylaxis GI Prophylaxis GI: Pepsid - Prophylaxis DVT Prophylaxis DVT: SCDs Assessment/Plan - Assessment and Plan (Free Text) Assessment: 72yo M. PMHx COPD, Alzheimer's, CHF, arthritis. recent hospitalizaion for cholelithiasis and pneumonia. Discharged home receiving IV abx. presents back with worsening pneumonia, and progression into septic shock. Intubated in field at home. On ABG found to have hypercanpeic resp failure with leukocytosis Neuro: Intubated / Sedated; Precedex 200 mcg in NS; patient alert Pulm: Respiratory failure 2/2 PNA and pulm edema; On vent (20/50/450/5); Duonebs, Vanc/Meropenem/Micafungin/Flagyl CV: septic shock; Levophed drip; Central line inserted today Heme: No acute issues Renal: Electrolyte abnormalities; Repleted as ordered via KCl riders and 40meq via TLC, Kphos x 1, Mag Sulfate x 1; NS @ 40mls/hr; Ddavp 2mcg; Vanc trough pending; Repeat BMP pending Endo: No acute issues GI: NPO, tube feedings (pulmocare) ID: Septic shock 2/2 PNA; Vanc/Meropenem/Micafungin/Flagyl; Vanc trough pending; leukocytosis trending down DVT ppx - heparin sq GI ppx - pepcid Tylenol solution prn for fever Simmons for strict I/O's during acute illness PGY-1 Merry Mendoza d/w Dr. Jara <Nino Jara - Last Filed: 03/05/18 17:33> CCU Subjective - Physician Review Critical Care Time Spent (in minutes): 45 CCU Objective - Vital Signs / Intake & Output Vital Signs (Last 4 hours): Vital Signs Temp Pulse Resp BP Pulse Ox 03/05/18 16:25 96 H 46 H 118/74 100 03/05/18 16:21 97 H 47 H 112/71 100 03/05/18 16:17 97 H 43 H 92/58 L 100 03/05/18 16:15 97 H 41 H 75/46 L 99 03/05/18 16:13 94 H 24 77/46 L 100 03/05/18 16:11 95 H 33 H 72/45 L 99 03/05/18 16:00 97.9 F 93 H 23 79/50 L 100 03/05/18 15:02 94 H 25 H 119/74 100 03/05/18 15:00 94 H 25 H 119/74 100 03/05/18 14:00 110 H 29 H 95/63 L 100 Intake and Output (Last 8hrs): Intake & Output 03/05/18 03/05/18 03/05/18 06:59 14:59 22:59 Intake Total 2131.7 3854.1 609.6 Output Total 2725 3075 100 Balance -593.3 779.1 509.6 Weight 119 lb Intake: IV 244 554 119 Intake, IV Amount 1567.7 2980.1 450.6 Left Distal Port 800 500 Left Forearm 100 Left Hand 1000 Proximal port IJ 320 825 400 R UA PICC 292.5 300.0 37.5 Right Forearm 155.2 155.1 13.1 Right Forearm 2 100 Tube Feeding 320 320 40 Output: Urine 2725 3075 100 Urethral (Simmons) 2725 3075 100 Other: # Bowel Movements 0 0 0 - Medications Active Medications: Active Medications Generic Name Dose Route Start Last Admin Trade Name Freq PRN Reason Stop Dose Admin Acetaminophen 650 mg 03/01/18 21:09 03/02/18 07:53 Tylenol 650mg/20.3ml Solution Ud NG 650 mg Q6 PRN Administration Fever >100.4 F Albuterol/Ipratropium 3 ml 03/02/18 14:00 03/05/18 13:38 Duoneb 3 Mg/0.5 Mg (3 Ml) Ud INH 3 ml RQ6 VELMA Administration Famotidine 20 mg 03/01/18 22:15 03/05/18 10:28 Pepcid IVP 20 mg Q12 VELMA Administration Heparin Sodium (Porcine) 5,000 units 03/05/18 17:30 Heparin SC Q8 VELMA Norepinephrine Bitartrate 4 mg 254 mls @ 15.24 mls/hr 03/01/18 19:08 03/05/18 16:15 / Sodium Chloride IV 15 mcg/min .[id number] PRN 57.15 mls/hr TITRATE PER MD ORDER Titration Protocol 4 MCG/MIN Vancomycin HCl 1 gm/ Sodium 250 mls @ 166.7 mls/hr 03/02/18 18:00 03/04/18 17:17 Chloride IVPB 166.7 mls/hr Q24H VELMA Administration Protocol Dexmedetomidine HCl 200 mcg/ 50 mls @ 2.77 mls/hr 03/03/18 07:40 03/05/18 16:15 Sodium Chloride IV 0.7 mcg/kg/hr TITR PRN 9.71 mls/hr Agitation Titration Protocol 0.2 MCG/KG/HR Micafungin Sodium 100 mg/ 100 mls @ 100 mls/hr 03/04/18 01:00 03/05/18 00:29 Sodium Chloride IV 100 mls/hr Q24H VELMA Administration Protocol Meropenem 500 mg/ Sodium 100 mls @ 100 mls/hr 03/04/18 01:15 03/05/18 08:19 Chloride IVPB 100 mls/hr Q8H VELMA Administration Protocol Metronidazole 500 mg in 100 mls @ 100 mls/hr 03/05/18 01:30 03/05/18 14:44 Flagyl IVPB 100 mls/hr Q12H VELMA Administration Protocol Desmopressin Acetate 2 mcg/ 50.5 mls @ 100 mls/hr 03/05/18 10:00 03/05/18 10:25 Sodium Chloride IV 100 mls/hr Q12 VELMA Administration Sodium Chloride 1,000 mls @ 0 mls/hr 03/05/18 11:45 03/05/18 16:07 Sodium Chloride 0.9% IV 300 mls/hr .Q0M VELMA Administration UD Potassium Phosphate 15 mmole/ 255 mls @ 42.5 mls/hr 03/05/18 13:00 03/05/18 13:13 Sodium Chloride IVPB 03/05/18 18:59 42.5 mls/hr ONCE ONE Administration - Patient Studies Lab Studies: Microbiology Studies 03/04/18 05:50 Blood Culture - Preliminary Blood-Thru Central Line NO GROWTH AFTER 24 HOURS 03/04/18 05:50 Blood Culture - Preliminary Blood-Thru Central Line NO GROWTH AFTER 24 HOURS 03/01/18 19:09 Blood Culture - Preliminary Blood NO GROWTH AFTER 3 DAYS 03/01/18 19:09 Blood Culture - Preliminary Blood NO GROWTH AFTER 3 DAYS Lab Studies 03/05/18 03/05/18 03/05/18 Range/Units 14:22 13:55 13:00 WBC (4.8-10.8) K/uL RBC (4.40-5.90) Mil/uL Hgb (12.0-18.0) g/dL Hct (35.0-51.0) % MCV (80.0-94.0) fL MCH (27.0-31.0) pg MCHC (33.0-37.0) g/dL RDW (11.5-14.5) % Plt Count (130-400) K/uL MPV (7.2-11.7) fL Neut % (Auto) (50.0-75.0) % Lymph % (Auto) (20.0-40.0) % Rusk % (Auto) (0.0-10.0) % Eos % (Auto) (0.0-4.0) % Baso % (Auto) (0.0-2.0) % Neut # (Auto) (1.8-7.0) K/uL Lymph # (Auto) (1.0-4.3) K/uL Rusk # (Auto) (0.0-0.8) K/uL Eos # (Auto) (0.0-0.7) K/uL Baso # (Auto) (0.0-0.2) K/uL Neutrophils % (Manual) (50-75) % Band Neutrophils % (0-2) % Lymphocytes % (Manual) (20-40) % Monocytes % (Manual) (0-10) % Platelet Estimate (NORMAL) Large Platelets Hypochromasia (manual) Poikilocytosis (manual Anisocytosis (manual) Ovalocytes Puncture Site pCO2 (35-45) mm/Hg pO2 (80-100) mm/Hg HCO3 (21-28) mmol/L ABG pH (7.35-7.45) ABG Total CO2 (22-28) mmol/L ABG O2 Saturation (95-98) % ABG Base Excess (-2.0-3.0) mmol/L Bereket Test ABG Potassium (3.6-5.2) mmol/L A-a O2 Difference mm/Hg Respiratory Index Sodium (132-148) mmol/l Chloride (98-107) mmol/L Glucose (75-110) mg/dl Lactate (0.7-2.1) mmol/L Vent Mode Mechanical Rate FiO2 % Tidal Volume PEEP Crit Value Called To Crit Value Called By Crit Value Read Back Blood Gas Notified Time Potassium (3.6-5.2) mmol/L Carbon Dioxide (22-30) mmol/L Anion Gap (10-20) BUN (9-20) mg/dL Creatinine (0.8-1.5) mg/dL Est GFR ( Amer) Est GFR (Non-Af Amer) Random Glucose (75-110) mg/dL Serum Osmolality 288 (272-300) mosm/kg Calcium (8.6-10.4) mg/dl Phosphorus (2.5-4.5) mg/dL Magnesium (1.6-2.3) mg/dL Total Bilirubin (0.2-1.3) mg/dL AST (17-59) U/L ALT (21-72) U/L Alkaline Phosphatase (38-126) U/L Total Protein (6.3-8.3) g/dL Albumin (3.5-5.0) g/dL Globulin (2.2-3.9) gm/dL Albumin/Globulin Ratio (1.0-2.1) Arterial Blood Potassium (3.6-5.2) mmol/L Urine Osmolality 425 (300-1000) mosm/kg Ur Random Creatinine 7.7 mg/dL Ur Random Sodium 183 mmol/L Ur Random Phosphorus < 5.5 mg/dL Ur Random Glucose < 20 mg/dL Vancomycin Trough < 5.0 L (5.0-10.0) ug/mL 03/05/18 03/05/18 03/05/18 Range/Units 05:37 05:35 04:55 WBC 17.5 H (4.8-10.8) K/uL RBC 3.68 L (4.40-5.90) Mil/uL Hgb 10.9 L (12.0-18.0) g/dL Hct 32.7 L (35.0-51.0) % MCV 88.9 (80.0-94.0) fL MCH 29.5 (27.0-31.0) pg MCHC 33.2 (33.0-37.0) g/dL RDW 14.8 H (11.5-14.5) % Plt Count 296 (130-400) K/uL MPV 7.9 (7.2-11.7) fL Neut % (Auto) 88.5 H (50.0-75.0) % Lymph % (Auto) 6.0 L (20.0-40.0) % Rusk % (Auto) 5.0 (0.0-10.0) % Eos % (Auto) 0.1 (0.0-4.0) % Baso % (Auto) 0.4 (0.0-2.0) % Neut # (Auto) 15.5 H (1.8-7.0) K/uL Lymph # (Auto) 1.0 (1.0-4.3) K/uL Rusk # (Auto) 0.9 H (0.0-0.8) K/uL Eos # (Auto) 0.0 (0.0-0.7) K/uL Baso # (Auto) 0.1 (0.0-0.2) K/uL Neutrophils % (Manual) 92 H (50-75) % Band Neutrophils % 1 (0-2) % Lymphocytes % (Manual) 3 L (20-40) % Monocytes % (Manual) 4 (0-10) % Platelet Estimate Normal (NORMAL) Large Platelets Present Hypochromasia (manual) Slight Poikilocytosis (manual Slight Anisocytosis (manual) Slight Ovalocytes Slight Puncture Site Lb pCO2 43 (35-45) mm/Hg pO2 86 (80-100) mm/Hg HCO3 34.1 H (21-28) mmol/L ABG pH 7.53 H (7.35-7.45) ABG Total CO2 37.2 H (22-28) mmol/L ABG O2 Saturation 98.7 H (95-98) % ABG Base Excess 11.8 H (-2.0-3.0) mmol/L Bereket Test Na ABG Potassium 2.4 L* (3.6-5.2) mmol/L A-a O2 Difference 217.0 mm/Hg Respiratory Index 2.5 Sodium 130 L 135.0 (132-148) mmol/l Chloride 89 L 95.0 L (98-107) mmol/L Glucose 135 H (75-110) mg/dl Lactate 1.2 (0.7-2.1) mmol/L Vent Mode Prvc Mechanical Rate 20 FiO2 50.0 % Tidal Volume 450 PEEP 5 Crit Value Called To Isaías rn Crit Value Called By Vikram barrow instructor knitting Crit Value Read Back Y Blood Gas Notified Time 502 Potassium 2.7 L (3.6-5.2) mmol/L Carbon Dioxide 36 H (22-30) mmol/L Anion Gap 8 L (10-20) BUN 4 L (9-20) mg/dL Creatinine 0.2 L (0.8-1.5) mg/dL Est GFR ( Amer) > 60 Est GFR (Non-Af Amer) > 60 Random Glucose 138 H (75-110) mg/dL Serum Osmolality (272-300) mosm/kg Calcium 6.1 L (8.6-10.4) mg/dl Phosphorus 2.0 L (2.5-4.5) mg/dL Magnesium 1.4 L (1.6-2.3) mg/dL Total Bilirubin 0.7 (0.2-1.3) mg/dL AST 24 (17-59) U/L ALT 19 L (21-72) U/L Alkaline Phosphatase 120 (38-126) U/L Total Protein 6.8 (6.3-8.3) g/dL Albumin 2.7 L D (3.5-5.0) g/dL Globulin 4.1 H (2.2-3.9) gm/dL Albumin/Globulin Ratio 0.7 L (1.0-2.1) Arterial Blood Potassium 2.4 L* (3.6-5.2) mmol/L Urine Osmolality (300-1000) mosm/kg Ur Random Creatinine mg/dL Ur Random Sodium mmol/L Ur Random Phosphorus mg/dL Ur Random Glucose mg/dL Vancomycin Trough (5.0-10.0) ug/mL Laboratory Results - last 24 hr 03/05/18 03/05/18 03/05/18 04:55 05:35 05:37 WBC 17.5 H RBC 3.68 L Hgb 10.9 L Hct 32.7 L MCV 88.9 MCH 29.5 MCHC 33.2 RDW 14.8 H Plt Count 296 MPV 7.9 Neut % (Auto) 88.5 H Lymph % (Auto) 6.0 L [place] % (Auto) 5.0 Eos % (Auto) 0.1 Baso % (Auto) 0.4 Neut # (Auto) 15.5 H Lymph # (Auto) 1.0 [place] # (Auto) 0.9 H Eos # (Auto) 0.0 Baso # (Auto) 0.1 Neutrophils % (Manual) 92 H Band Neutrophils % 1 Lymphocytes % (Manual) 3 L Monocytes % (Manual) 4 Platelet Estimate Normal Large Platelets Present Hypochromasia (manual) Slight Poikilocytosis (manual Slight Anisocytosis (manual) Slight Ovalocytes Slight Puncture Site Lb pCO2 43 pO2 86 HCO3 34.1 H ABG pH 7.53 H ABG Total CO2 37.2 H ABG O2 Saturation 98.7 H ABG Base Excess 11.8 H Bereket Test Na ABG Potassium 2.4 L* A-a O2 Difference 217.0 Respiratory Index 2.5 Sodium 135.0 130 L Chloride 95.0 L 89 L Glucose 135 H Lactate 1.2 Vent Mode Prvc Mechanical Rate 20 FiO2 50.0 Tidal Volume 450 PEEP 5 Crit Value Called To Isaías rn Crit Value Called By Vikram barrow instructor knitting Crit Value Read Back Y Blood Gas Notified Time 502 Potassium 2.7 L Carbon Dioxide 36 H Anion Gap 8 L BUN 4 L Creatinine 0.2 L Est GFR ( Amer) > 60 Est GFR (Non-Af Amer) > 60 Random Glucose 138 H Serum Osmolality Calcium 6.1 L Phosphorus 2.0 L Magnesium 1.4 L Total Bilirubin 0.7 AST 24 ALT 19 L Alkaline Phosphatase 120 Total Protein 6.8 Albumin 2.7 L D Globulin 4.1 H Albumin/Globulin Ratio 0.7 L Arterial Blood Potassium 2.4 L* Urine Osmolality Ur Random Creatinine Ur Random Sodium Ur Random Phosphorus Ur Random Glucose Vancomycin Trough 03/05/18 03/05/18 03/05/18 13:00 13:55 14:22 WBC RBC Hgb Hct MCV MCH MCHC RDW Plt Count MPV Neut % (Auto) Lymph % (Auto) [place] % (Auto) Eos % (Auto) Baso % (Auto) Neut # (Auto) Lymph # (Auto) [place] # (Auto) Eos # (Auto) Baso # (Auto) Neutrophils % (Manual) Band Neutrophils % Lymphocytes % (Manual) Monocytes % (Manual) Platelet Estimate Large Platelets Hypochromasia (manual) Poikilocytosis (manual Anisocytosis (manual) Ovalocytes Puncture Site pCO2 pO2 HCO3 ABG pH ABG Total CO2 ABG O2 Saturation ABG Base Excess Bereket Test ABG Potassium A-a O2 Difference Respiratory Index Sodium Chloride Glucose Lactate Vent Mode Mechanical Rate FiO2 Tidal Volume PEEP Crit Value Called To Crit Value Called By Crit Value Read Back Blood Gas Notified Time Potassium Carbon Dioxide Anion Gap BUN Creatinine Est GFR ( Amer) Est GFR (Non-Af Amer) Random Glucose Serum Osmolality 288 Calcium Phosphorus Magnesium Total Bilirubin AST ALT Alkaline Phosphatase Total Protein Albumin Globulin Albumin/Globulin Ratio Arterial Blood Potassium Urine Osmolality 425 Ur Random Creatinine 7.7 Ur Random Sodium 183 Ur Random Phosphorus < 5.5 Ur Random Glucose < 20 Vancomycin Trough < 5.0 L Radiology Impressions: Radiology Impressions Chest X-Ray 03/05/18 07:00 IMPRESSION: Little interval change in multifocal airspace disease in the right lower lobe and in the left lung. Background of interstitial pulmonary disease. Stable position of support line and tubes. Attending/Attestation - Attestation I have personally seen and examined this patient.: Yes I have fully participated in the care of the patient.: Yes I have reviewed all pertinent clinical information: Yes Notes (Text): 03/05/18 17:31 patient seen and examined in the intensive care unit. Remained intubated on ventilatory support Increased urine output and workup in progress to rule out DI Started on DDAVP Replete potassium, magnesium and phosphate continue antibiotics for pneumonia Spontaneous awakening trial CPAP trial Continue feeding Nephrology evaluation
[2018-03-05] MEDS ORDERED: Magnesium Sulfate 1 gm in D5W 1 GM/100 ML BAG IVPB ONE (13:00)
[2018-03-05] MEDS ORDERED: Potassium Phosphate 15 MMOLE in Sodium Chloride 0.9% 250 ML IVPB ONE (13:00)
--- NOTE | 2018-03-05 13:58 | CP.PCM.PN ---
Subjective - Date & Time of Evaluation Date of Evaluation: 03/05/18 Time of Evaluation: 13:57 - Subjective Subjective: Patient is still on a respirator. Patient is alert awake responds to verbal stimuli Blood pressure is still low on Levophed. Patient had a heart rate of 140 which required 1 dose of Cardizem. After IV Lasix patient's urine output is now 8.6 L. Patient is now in the -2.2 L balance. Chest x-ray shows no improvement in the air space disease Renal functions are normal. Objective - Vital Signs/Intake and Output Vital Signs (last 24 hours): Temp Pulse Resp BP Pulse Ox 99.5 F 102 H 29 H 97/64 L 100 03/05/18 07:51 03/05/18 12:00 03/05/18 12:00 03/05/18 12:00 03/05/18 12:00 Intake and Output: 03/05/18 03/05/18 11:59 23:59 Intake Total 4134.3 471.9 Output Total 4675 225 Balance -540.7 246.9 - Medications Medications: Current Medications Acetaminophen (Tylenol 650mg/20.3ml Solution Ud) 650 mg NG Q6 PRN PRN Reason: Fever >100.4 F Last Admin: 03/02/18 07:53 Dose: 650 mg Albuterol/Ipratropium (Duoneb 3 Mg/0.5 Mg (3 Ml) Ud) 3 ml INH RQ6 VELMA Last Admin: 03/05/18 13:38 Dose: 3 ml Famotidine (Pepcid) 20 mg IVP Q12 VELMA Last Admin: 03/05/18 10:28 Dose: 20 mg Norepinephrine Bitartrate 4 mg (/ Sodium Chloride) 254 mls @ 15.24 mls/hr IV .[id number] PRN; Protocol PRN Reason: TITRATE PER MD ORDER Last Admin: 03/05/18 07:44 Dose: 10 mcg/min, 38.1 mls/hr Vancomycin HCl 1 gm/ Sodium (Chloride) 250 mls @ 166.7 mls/hr IVPB Q24H VELMA; Protocol Last Admin: 03/04/18 17:17 Dose: 166.7 mls/hr Dexmedetomidine HCl 200 mcg/ (Sodium Chloride) 50 mls @ 2.77 mls/hr IV TITR PRN; Protocol PRN Reason: Agitation Last Admin: 03/05/18 12:32 Dose: 1 mcg/kg/hr, 13.87 mls/hr Micafungin Sodium 100 mg/ (Sodium Chloride) 100 mls @ 100 mls/hr IV Q24H VELMA; Protocol Last Admin: 03/05/18 00:29 Dose: 100 mls/hr Meropenem 500 mg/ Sodium (Chloride) 100 mls @ 100 mls/hr IVPB Q8H VELMA; Protocol Last Admin: 03/05/18 08:19 Dose: 100 mls/hr Metronidazole (Flagyl) 500 mg in 100 mls @ 100 mls/hr IVPB Q12H VELMA; Protocol Last Admin: 03/05/18 02:36 Dose: 100 mls/hr Desmopressin Acetate 2 mcg/ (Sodium Chloride) 50.5 mls @ 100 mls/hr IV Q12 VELMA Last Admin: 03/05/18 10:25 Dose: 100 mls/hr Sodium Chloride (Sodium Chloride 0.9%) 1,000 mls @ 0 mls/hr IV .Q0M VELMA Last Admin: 03/05/18 13:00 Dose: 100 mls/hr Potassium Phosphate 15 mmole/ (Sodium Chloride) 255 mls @ 42.5 mls/hr IVPB ONCE ONE Stop: 03/05/18 18:59 Last Admin: 03/05/18 13:13 Dose: 42.5 mls/hr - Labs Labs: 03/05/18 05:37 03/05/18 05:35
[2018-03-05 14:33] LABS: OSMOLALITY,URINE 425 mosm/kg (300-1000)
--- NOTE | 2018-03-05 14:36 | CP.PCM.PN ---
Subjective - Date & Time of Evaluation Date of Evaluation: 03/05/18 Time of Evaluation: 14:35 - Subjective Subjective: AFEBRILE TMAX 99.6 more awake INTUBATED.+VE NGT FAMILY AT BEDSIDE. ON IV ABX LABS NOTED: WBC 17.5 IMPROVING. VANCO TROUGH <5.0 03/05/18 Objective - Vital Signs/Intake and Output Vital Signs (last 24 hours): Temp Pulse Resp BP Pulse Ox 99.5 F 102 H 29 H 97/64 L 100 03/05/18 07:51 03/05/18 12:00 03/05/18 12:00 03/05/18 12:00 03/05/18 12:00 Intake and Output: 03/05/18 03/05/18 06:59 18:59 Intake Total 2892.6 3400.1 Output Total 5425 3075 Balance -2532.4 325.1 - Medications Medications: Current Medications Acetaminophen (Tylenol 650mg/20.3ml Solution Ud) 650 mg NG Q6 PRN PRN Reason: Fever >100.4 F Last Admin: 03/02/18 07:53 Dose: 650 mg Albuterol/Ipratropium (Duoneb 3 Mg/0.5 Mg (3 Ml) Ud) 3 ml INH RQ6 VELMA Last Admin: 03/05/18 13:38 Dose: 3 ml Famotidine (Pepcid) 20 mg IVP Q12 VELMA Last Admin: 03/05/18 10:28 Dose: 20 mg Norepinephrine Bitartrate 4 mg (/ Sodium Chloride) 254 mls @ 15.24 mls/hr IV .[id number] PRN; Protocol PRN Reason: TITRATE PER MD ORDER Last Admin: 03/05/18 07:44 Dose: 10 mcg/min, 38.1 mls/hr Vancomycin HCl 1 gm/ Sodium (Chloride) 250 mls @ 166.7 mls/hr IVPB Q24H VELMA; Protocol Last Admin: 03/04/18 17:17 Dose: 166.7 mls/hr Dexmedetomidine HCl 200 mcg/ (Sodium Chloride) 50 mls @ 2.77 mls/hr IV TITR PRN; Protocol PRN Reason: Agitation Last Admin: 03/05/18 12:32 Dose: 1 mcg/kg/hr, 13.87 mls/hr Micafungin Sodium 100 mg/ (Sodium Chloride) 100 mls @ 100 mls/hr IV Q24H VELMA; Protocol Last Admin: 03/05/18 00:29 Dose: 100 mls/hr Meropenem 500 mg/ Sodium (Chloride) 100 mls @ 100 mls/hr IVPB Q8H VELMA; Protocol Last Admin: 03/05/18 08:19 Dose: 100 mls/hr Metronidazole (Flagyl) 500 mg in 100 mls @ 100 mls/hr IVPB Q12H VELMA; Protocol Last Admin: 03/05/18 02:36 Dose: 100 mls/hr Desmopressin Acetate 2 mcg/ (Sodium Chloride) 50.5 mls @ 100 mls/hr IV Q12 VELMA Last Admin: 03/05/18 10:25 Dose: 100 mls/hr Sodium Chloride (Sodium Chloride 0.9%) 1,000 mls @ 0 mls/hr IV .Q0M VELMA Last Admin: 03/05/18 13:59 Dose: 300 mls/hr Potassium Phosphate 15 mmole/ (Sodium Chloride) 255 mls @ 42.5 mls/hr IVPB ONCE ONE Stop: 03/05/18 18:59 Last Admin: 03/05/18 13:13 Dose: 42.5 mls/hr - Labs Labs: 03/05/18 05:37 03/05/18 05:35 - Constitutional Appears: No Acute Distress, Cachectic, Chronically Ill - Head Exam Head Exam: NORMAL INSPECTION - Eye Exam Eye Exam: PERRL - ENT Exam ENT Exam: Mucous Membranes Dry, Normal Oropharynx - Neck Exam Neck Exam: Normal Inspection - Respiratory Exam Respiratory Exam: Rales (B/L), Rhonchi, NORMAL BREATHING PATTERN - Cardiovascular Exam Cardiovascular Exam: REGULAR RHYTHM, +S1, +S2 - GI/Abdominal Exam GI & Abdominal Exam: Soft, Normal Bowel Sounds - Extremities Exam Extremities Exam: Normal Capillary Refill, Pedal Edema. absent: Calf Tenderness - Neurological Exam Neurological Exam: Awake - Psychiatric Exam Psychiatric exam: Flat Affect - Skin Skin Exam: Normal Color, Warm Assessment and Plan (1) Sepsis associated hypotension Status: Acute (2) Respiratory failure requiring intubation Status: Acute (3) Altered mental status Status: Acute (4) Pneumonia Status: Acute (5) Abdominal pain Status: Acute (6) Cholelithiases Status: Acute - Assessment and Plan (Free Text) Plan: CONTINUE IV MERREM 500MG IVPB Q8HRLY 03/04/18 INCREASE IV VANCOMYCIN 1GM IVPB Q 12 HRLY (03/05) VANCO TROUGH PRIOR TO 4TH DOSE AND KEEP BETWEEN 10-20MG/DL. MONITOR RENAL FUNCTION CONTINUE IV MYCAFUNGIN 100MG IV PB Q 24 HRLY 03/04/18 ADD IV FLAGYL 500MG IV [id number] FOR ANAEROBIC COVERAGE 03/05/18 PROGNOSIS GUARDED.
[2018-03-05 14:54] LABS: CREATININE, RANDOM URINE 7.7 mg/dL
[2018-03-05] MEDS: Phenylephrine 30 MG in Sodium Chloride 0.9% 250 ML IV PRN ×2 (18:13→22:28)
[2018-03-05 18:42] LABS: ALB/GLOB RATIO 0.6 (1.0-2.1); ALBUMIN 2.3 g/dL (3.5-5.0); ALT/SGPT 13 U/L (21-72); AST/SGOT 39 U/L (17-59); BLOOD UREA NITROGEN 6 mg/dL (9-20); CALCIUM 6.3 mg/dl (8.6-10.4); GFR NON-AFRICAN AMERICAN > 60
--- NOTE | 2018-03-05 18:44 | CP.PCM.PN ---
Subjective - Date & Time of Evaluation Date of Evaluation: 03/05/18 Time of Evaluation: 18:39 - Subjective Subjective: PT INTUBATED. ROS; UNOBTAINABLE Objective - Vital Signs/Intake and Output Vital Signs (last 24 hours): Temp Pulse Resp BP Pulse Ox 97.9 F 147 H 28 H 89/66 L 100 03/05/18 16:00 03/05/18 18:13 03/05/18 18:13 03/05/18 18:13 03/05/18 18:13 Intake and Output: 03/05/18 03/05/18 06:59 18:59 Intake Total 2892.6 4540.7 Output Total 5425 3175 Balance -2532.4 1365.7 - Medications Medications: Current Medications Acetaminophen (Tylenol 650mg/20.3ml Solution Ud) 650 mg NG Q6 PRN PRN Reason: Fever >100.4 F Last Admin: 03/02/18 07:53 Dose: 650 mg Albuterol/Ipratropium (Duoneb 3 Mg/0.5 Mg (3 Ml) Ud) 3 ml INH RQ6 VELMA Last Admin: 03/05/18 13:38 Dose: 3 ml Famotidine (Pepcid) 20 mg IVP Q12 VELMA Last Admin: 03/05/18 10:28 Dose: 20 mg Heparin Sodium (Porcine) (Heparin) 5,000 units SC Q8 VELMA Last Admin: 03/05/18 18:05 Dose: 5,000 units Norepinephrine Bitartrate 4 mg (/ Sodium Chloride) 254 mls @ 15.24 mls/hr IV .[id number] PRN; Protocol PRN Reason: TITRATE PER MD ORDER Last Titration: 03/05/18 18:18 Dose: 10 mcg/min, 38.1 mls/hr Vancomycin HCl 1 gm/ Sodium (Chloride) 250 mls @ 166.7 mls/hr IVPB Q24H VELMA; Protocol Last Admin: 03/05/18 18:06 Dose: 166.7 mls/hr Dexmedetomidine HCl 200 mcg/ (Sodium Chloride) 50 mls @ 2.77 mls/hr IV TITR PRN; Protocol PRN Reason: Agitation Last Titration: 03/05/18 16:15 Dose: 0.7 mcg/kg/hr, 9.71 mls/hr Micafungin Sodium 100 mg/ (Sodium Chloride) 100 mls @ 100 mls/hr IV Q24H VELMA; Protocol Last Admin: 03/05/18 00:29 Dose: 100 mls/hr Meropenem 500 mg/ Sodium (Chloride) 100 mls @ 100 mls/hr IVPB Q8H VELMA; Protocol Last Admin: 03/05/18 18:00 Dose: 100 mls/hr Metronidazole (Flagyl) 500 mg in 100 mls @ 100 mls/hr IVPB Q12H VELMA; Protocol Last Admin: 03/05/18 14:44 Dose: 100 mls/hr Desmopressin Acetate 2 mcg/ (Sodium Chloride) 50.5 mls @ 100 mls/hr IV Q12 VELMA Last Admin: 03/05/18 10:25 Dose: 100 mls/hr Sodium Chloride (Sodium Chloride 0.9%) 1,000 mls @ 0 mls/hr IV .Q0M VELMA Last Admin: 03/05/18 18:03 Dose: 225 mls/hr Potassium Phosphate 15 mmole/ (Sodium Chloride) 255 mls @ 42.5 mls/hr IVPB ONCE ONE Stop: 03/05/18 18:59 Last Admin: 03/05/18 13:13 Dose: 42.5 mls/hr Phenylephrine HCl 30 mg/ (Sodium Chloride) 253 mls @ 10.12 mls/hr IV .Q24H PRN; Protocol PRN Reason: TITRATE PER MD ORDER Last Admin: 03/05/18 18:13 Dose: 40 mcg/min, 20.24 mls/hr - Labs Labs: 03/05/18 05:37 03/05/18 05:35 - Constitutional Appears: Toxic, Cachectic, Chronically Ill - Head Exam Head Exam: ATRAUMATIC, NORMOCEPHALIC - Eye Exam Eye Exam: Normal appearance - ENT Exam Additional comments: ORAL ETT+ - Neck Exam Neck Exam: Normal Inspection - Respiratory Exam Respiratory Exam: Rhonchi - Cardiovascular Exam Cardiovascular Exam: Tachycardia - GI/Abdominal Exam GI & Abdominal Exam: Soft - Rectal Exam Rectal Exam: Deferred - Extremities Exam Extremities Exam: absent: Pedal Edema - Neurological Exam Additional comments: SEDATED - Skin Skin Exam: absent: Rash Assessment and Plan (1) Septic shock Status: Acute (2) Altered mental status Status: Acute (3) Pneumonia Status: Acute (4) Respiratory failure requiring intubation Status: Acute (5) COPD exacerbation Status: Acute (6) Cachexia Status: Acute (7) Cholelithiases Status: Acute (8) Alzheimer disease Status: Chronic - Assessment and Plan (Free Text) Assessment: HEMODYNAM UNSTABLE ON IV LEVO AND IV VASO ADDED, TACHYCARDIC, GIVEN CARDIZEM. RESP STATUS NO SIG CHANGE. CONT AC SUPPORT. PULM TOILET. CXR REVIEWED. RENAL EVAL +ELECTROLYTE DISTURBANCES AND POLYURIA NOW. CONT AB. PROG GRIM. DISCUSSED WITH STAFF AT LENGTH AND FAMILY AT BEDSIDE.
--- NOTE | 2018-03-05 19:18 | CP.PCM.CON ---
History of Present Illness - History of Present Illness History of Present Illness: pt is seen and examined, full consult is dictated #[id number] 1. polyuria sec to osmatic diursis sec to electrolyte induced sec to constant NS infusion(electrolytes are contributing for > 86 % of osmolality) no evidence of central DI or Nephrogenic DI please d/c NS ivf High protein diet d/c desmopressin 2. s/p hypokalemia and hypocalcemeia sec to hypomagnesemia agree with supplement of k,mg, po4, check vit. d level 3. resp. failure 4.pneumonia c/w iv abx a sper ID Past Patient History - Past Medical History & Family History Past Medical History?: Yes Past Family History: Reviewed and not pertinent - Past Social History Smoking Status: Former Smoker - CARDIAC Hx Congestive Heart Failure: Yes (?more than 20 yrs ago) - PULMONARY Hx Emphysema: Yes Hx Pneumonia: Yes - NEUROLOGICAL Hx Alzheimer's Disease: Yes - HEENT Hx HEENT Problems: No - RENAL Hx Chronic Kidney Disease: No - ENDOCRINE/METABOLIC Hx Endocrine Disorders: No - HEMATOLOGICAL/ONCOLOGICAL Hx Blood Disorders: No - INTEGUMENTARY Hx Dermatological Problems: No - MUSCULOSKELETAL/RHEUMATOLOGICAL Hx Arthritis: Yes (L SH; BACK) - GASTROINTESTINAL Hx Gastrointestinal Disorders: No Hx Gall Bladder Disease: Yes - GENITOURINARY/GYNECOLOGICAL Hx Genitourinary Disorders: No - PSYCHIATRIC Hx Substance Use: No - SURGICAL HISTORY Hx Surgeries: Yes Hx Orthopedic Surgery: Yes (LEFT ARM) - ANESTHESIA Hx Anesthesia: Yes Hx Anesthesia Reactions: No Hx Malignant Hyperthermia: No Meds Allergies/Adverse Reactions: Allergies Allergy/AdvReac Type Severity Reaction Status Date / Time No Known Allergies Allergy Verified 03/01/18 18:48 - Medications Medications: Current Medications Acetaminophen (Tylenol 650mg/20.3ml Solution Ud) 650 mg NG Q6 PRN PRN Reason: Fever >100.4 F Last Admin: 03/02/18 07:53 Dose: 650 mg Albuterol/Ipratropium (Duoneb 3 Mg/0.5 Mg (3 Ml) Ud) 3 ml INH RQ6 VELMA Last Admin: 03/05/18 13:38 Dose: 3 ml Famotidine (Pepcid) 20 mg IVP Q12 VELMA Last Admin: 03/05/18 10:28 Dose: 20 mg Heparin Sodium (Porcine) (Heparin) 5,000 units SC Q8 VELMA Last Admin: 03/05/18 18:05 Dose: 5,000 units Norepinephrine Bitartrate 4 mg (/ Sodium Chloride) 254 mls @ 15.24 mls/hr IV .[id number] PRN; Protocol PRN Reason: TITRATE PER MD ORDER Last Titration: 03/05/18 18:30 Dose: 8 mcg/min, 30.48 mls/hr Vancomycin HCl 1 gm/ Sodium (Chloride) 250 mls @ 166.7 mls/hr IVPB Q24H VELMA; Protocol Last Admin: 03/05/18 18:06 Dose: 166.7 mls/hr Dexmedetomidine HCl 200 mcg/ (Sodium Chloride) 50 mls @ 2.77 mls/hr IV TITR PRN; Protocol PRN Reason: Agitation Last Titration: 03/05/18 16:15 Dose: 0.7 mcg/kg/hr, 9.71 mls/hr Micafungin Sodium 100 mg/ (Sodium Chloride) 100 mls @ 100 mls/hr IV Q24H VELMA; Protocol Last Admin: 03/05/18 00:29 Dose: 100 mls/hr Meropenem 500 mg/ Sodium (Chloride) 100 mls @ 100 mls/hr IVPB Q8H VELMA; Protocol Last Admin: 03/05/18 18:00 Dose: 100 mls/hr Metronidazole (Flagyl) 500 mg in 100 mls @ 100 mls/hr IVPB Q12H VELMA; Protocol Last Admin: 03/05/18 14:44 Dose: 100 mls/hr Desmopressin Acetate 2 mcg/ (Sodium Chloride) 50.5 mls @ 100 mls/hr IV Q12 VELMA Last Admin: 03/05/18 10:25 Dose: 100 mls/hr Sodium Chloride (Sodium Chloride 0.9%) 1,000 mls @ 0 mls/hr IV .Q0M VELMA Last Admin: 03/05/18 19:00 Dose: 350 mls/hr Phenylephrine HCl 30 mg/ (Sodium Chloride) 253 mls @ 10.12 mls/hr IV .Q24H PRN; Protocol PRN Reason: TITRATE PER MD ORDER Last Titration: 03/05/18 18:30 Dose: 80 mcg/min, 40.48 mls/hr Results - Vital Signs Recent Vital Signs: Last Vital Signs Temp 97.9 F 03/05/18 16:00 Pulse 143 H 03/05/18 18:43 Resp 29 H 03/05/18 18:43 BP 113/76 03/05/18 18:43 Pulse Ox 100 03/05/18 18:43 - Labs Result Diagrams: 03/05/18 05:37 03/05/18 18:03 Labs: Laboratory Results - last 24 hr 03/05/18 03/05/18 03/05/18 04:55 05:35 05:37 WBC 17.5 H RBC 3.68 L Hgb 10.9 L Hct 32.7 L MCV 88.9 MCH 29.5 MCHC 33.2 RDW 14.8 H Plt Count 296 MPV 7.9 Neut % (Auto) 88.5 H Lymph % (Auto) 6.0 L [place] % (Auto) 5.0 Eos % (Auto) 0.1 Baso % (Auto) 0.4 Neut # (Auto) 15.5 H Lymph # (Auto) 1.0 [place] # (Auto) 0.9 H Eos # (Auto) 0.0 Baso # (Auto) 0.1 Neutrophils % (Manual) 92 H Band Neutrophils % 1 Lymphocytes % (Manual) 3 L Monocytes % (Manual) 4 Platelet Estimate Normal Large Platelets Present Hypochromasia (manual) Slight Poikilocytosis (manual Slight Anisocytosis (manual) Slight Ovalocytes Slight Puncture Site Lb pCO2 43 pO2 86 HCO3 34.1 H ABG pH 7.53 H ABG Total CO2 37.2 H ABG O2 Saturation 98.7 H ABG Base Excess 11.8 H Bereket Test Na ABG Potassium 2.4 L* A-a O2 Difference 217.0 Respiratory Index 2.5 Sodium 135.0 130 L Chloride 95.0 L 89 L Glucose 135 H Lactate 1.2 Vent Mode Prvc Mechanical Rate 20 FiO2 50.0 Tidal Volume 450 PEEP 5 Crit Value Called To Isaías rn Crit Value Called By Vikram barrow java consultant Crit Value Read Back Y Blood Gas Notified Time 502 Potassium 2.7 L Carbon Dioxide 36 H Anion Gap 8 L BUN 4 L Creatinine 0.2 L Est GFR ( Amer) > 60 Est GFR (Non-Af Amer) > 60 Random Glucose 138 H Serum Osmolality Calcium 6.1 L Phosphorus 2.0 L Magnesium 1.4 L Total Bilirubin 0.7 AST 24 ALT 19 L Alkaline Phosphatase 120 Total Protein 6.8 Albumin 2.7 L D Globulin 4.1 H Albumin/Globulin Ratio 0.7 L Arterial Blood Potassium 2.4 L* Urine Osmolality Ur Random Creatinine Ur Random Sodium Ur Random Phosphorus Ur Random Glucose Vancomycin Trough 03/05/18 03/05/18 03/05/18 13:00 13:55 14:22 WBC RBC Hgb Hct MCV MCH MCHC RDW Plt Count MPV Neut % (Auto) Lymph % (Auto) [place] % (Auto) Eos % (Auto) Baso % (Auto) Neut # (Auto) Lymph # (Auto) [place] # (Auto) Eos # (Auto) Baso # (Auto) Neutrophils % (Manual) Band Neutrophils % Lymphocytes % (Manual) Monocytes % (Manual) Platelet Estimate Large Platelets Hypochromasia (manual) Poikilocytosis (manual Anisocytosis (manual) Ovalocytes Puncture Site pCO2 pO2 HCO3 ABG pH ABG Total CO2 ABG O2 Saturation ABG Base Excess Bereket Test ABG Potassium A-a O2 Difference Respiratory Index Sodium Chloride Glucose Lactate Vent Mode Mechanical Rate FiO2 Tidal Volume PEEP Crit Value Called To Crit Value Called By Crit Value Read Back Blood Gas Notified Time Potassium Carbon Dioxide Anion Gap BUN Creatinine Est GFR ( Amer) Est GFR (Non-Af Amer) Random Glucose Serum Osmolality 288 Calcium Phosphorus Magnesium Total Bilirubin AST ALT Alkaline Phosphatase Total Protein Albumin Globulin Albumin/Globulin Ratio Arterial Blood Potassium Urine Osmolality 425 Ur Random Creatinine 7.7 Ur Random Sodium 183 Ur Random Phosphorus < 5.5 Ur Random Glucose < 20 Vancomycin Trough < 5.0 L 03/05/18 18:03 WBC RBC Hgb Hct MCV MCH MCHC RDW Plt Count MPV Neut % (Auto) Lymph % (Auto) [place] % (Auto) Eos % (Auto) Baso % (Auto) Neut # (Auto) Lymph # (Auto) [place] # (Auto) Eos # (Auto) Baso # (Auto) Neutrophils % (Manual) Band Neutrophils % Lymphocytes % (Manual) Monocytes % (Manual) Platelet Estimate Large Platelets Hypochromasia (manual) Poikilocytosis (manual Anisocytosis (manual) Ovalocytes Puncture Site pCO2 pO2 HCO3 ABG pH ABG Total CO2 ABG O2 Saturation ABG Base Excess Bereket Test ABG Potassium A-a O2 Difference Respiratory Index Sodium 133 Chloride 97 L Glucose Lactate Vent Mode Mechanical Rate FiO2 Tidal Volume PEEP Crit Value Called To Crit Value Called By Crit Value Read Back Blood Gas Notified Time Potassium 3.6 Carbon Dioxide 32 H Anion Gap 8 L BUN 6 L Creatinine 0.3 L Est GFR ( Amer) > 60 Est GFR (Non-Af Amer) > 60 Random Glucose 131 H Serum Osmolality Calcium 6.3 L Phosphorus 3.4 Magnesium 1.7 Total Bilirubin 0.7 AST 39 ALT 13 L D Alkaline Phosphatase 140 H Total Protein 6.5 Albumin 2.3 L Globulin 4.1 H Albumin/Globulin Ratio 0.6 L Arterial Blood Potassium Urine Osmolality Ur Random Creatinine Ur Random Sodium Ur Random Phosphorus Ur Random Glucose Vancomycin Trough
[2018-03-05] MEDS: Acetaminophen 650mg/20.3ml solution UD NG PRN (21:23)
[2018-03-06] MEDS: Meropenem 500 MG in Sodium Chloride 0.9% 100 ML IVPB SCH ×3 (00:32→16:26)
[2018-03-06] MEDS: Micafungin 100 MG in Sodium Chloride 0.9% 100 ML IV SCH (00:59)
[2018-03-06] MEDS: metroNIDAZOLE IV 500 mg/100 ml 500 MG/100 ML BAG IVPB SCH ×2 (01:00→12:50)
[2018-03-06] MEDS: Sodium Chloride 0.9% 1,000 ML IV SCH ×2 (01:00→07:00)
[2018-03-06] MEDS: Albuterol-Ipratrop 3 mg / 0.5 (3 ml) UD INH SCH ×4 (04:06→19:42)
[2018-03-06] MEDS: Dexmedetomidine Hydrochloride 200 MCG in Sodium Chloride 0.9% 48 ML IV PRN ×4 (04:13→23:06)
[2018-03-06] MEDS: Phenylephrine 30 MG in Sodium Chloride 0.9% 250 ML IV PRN ×5 (04:16→22:40)
--- NOTE | 2018-03-06 05:54 | CON ---
DATE: 03/05/2018 LOCATION: ICU, bed 8. REQUESTED BY: Cornelia Mancera MD REASON FOR RENAL CONSULTATION: Electrolyte imbalance. HISTORY OF PRESENT ILLNESS: Mr. Lawler is a 72-year-old elderly male with past medical history significant Alzheimer's dementia, arthritis, CHF and emphysema who was recently discharged from the hospital and the patient was brought back to the hospital on 03/01/2018 and was admitted for possible pneumonia and started on IV antibiotic. The patient's pulmonary condition continued to be concerning and he became hypoxic resulting in ICU transfer. The patient was initially discharged home with IV antibiotic and PICC line and after discharge, one day the patient was fine and was walking around, eating and drinking small amount and after few hours, the patient's was not able to wake him up and difficulty in arousing him and was not responding and his called 911 and the patient was brought to the hospital with altered mental status and respiratory distress with low pulse ox and then the patient was intubated. On arrival to the ED, the patient was tachycardic, hypotensive, and unresponsive. The patient is in ICU, on the ventilator, not following commands. Renal consult was requested for polyuria, electrolyte imbalance, hypokalemia, hypomagnesemia, hypophosphatemia. PAST MEDICAL HISTORY: Significant for Alzheimer's dementia, arthritis, emphysema. PAST SURGICAL HISTORY: None. ALLERGIES: NO KNOWN DRUG ALLERGIES. SOCIAL HISTORY: No smoking. No alcohol. No drugs. FAMILY HISTORY: Not significant. CURRENT MEDICATIONS: Desmopressin 2 mg IV every 12 hours, Precedex 200 mcg at 0.2 mcg per/kg/hr, DuoNeb inhaler, Flagyl, subcu heparin 5000 units every 8 hours, meropenem 500 mg IV every 8 hours, micafungin 100 mg IV every 24 hours, norepinephrine 4 mcg per minute, Pepcid 20 mg IV every 12 hours, phenylephrine, IV fluids normal saline, Tylenol, and vancomycin 1 g every 24 hours. REVIEW OF SYSTEMS: Significant for altered mental status and pneumonia and polyuria. All other review of systems are reviewed and are negative. PHYSICAL EXAMINATION: VITAL SIGNS: Blood pressure 112/71, pulse 102, respirations 28, saturation 100%, and temperature 98.5. Height is 5 feet 7 inches, weight is 119 pounds. GENERAL: Mr. Lawler is a 72-year-old elderly male, on ventilator under sedation. HEENT: Pupils normal and reactive to light and accommodation. Conjunctivae pink. Sclerae anicteric. No thyroid enlargement. LUNGS: Symmetric on both sides. Bilateral breath sounds present. CVS: [place] at the fifth intercostal space, midclavicular area. S1 and S2 audible. Tachycardic. ABDOMEN: Normal in appearance. Soft, tympanic. No guarding. No hepatosplenomegaly. TECHNICAL SUPPORT PROFESSIONAL: On the ventilator under sedation. EXTREMITIES: No cyanosis. No clubbing. No edema. LABORATORY DATA: Lab data include as follows as of 03/05/2018, WBC 17.5, hemoglobin 10.9, hematocrit 32.7, platelets 296, neutrophils 92, bands 1, lymphs 3 and monos 4. ABG; pH 7.53, pCO2 of 43, pO2 86, bicarb 34.1 and saturation 98.7. Sodium 130, potassium 2.7, chloride 89, CO2 of 36, BUN 4, creatinine 0.2, glucose 138, calcium 6.1, phosphorus 2.0, magnesium 1.4, and total bili 0.7, AST 24, ALT 19, alkaline phos 120, total protein 6.8, albumin 2.7 and corrected calcium is about 7.5. Urine osmolality 425, urine creatinine is 7.7, urine sodium is 183, urine phosphorus is 5.5 and urine glucose is less than 20 and vancomycin trough level is less than 5. Twenty-four hour intake and output as of 03/02/2018, intake is 2115 output is 2375 and negative 359. As of 03/03/2018, intake is 7321 and output is 2655, positive about 4.6 liters. As of 03/04/2018 intake is 4922 and output is 4035 and positive about 887 mL and total positive in three days was about 5 liters as of 03/05/2018. Twenty-four hour urine volume is 7200 and his intake is 5643 and total positive is about 3 liters. As of 03/01/2018, WBC 19.1, hemoglobin 11.9, hematocrit 36.8, platelets 423. Sodium 137, potassium 4.6, chloride 95, CO2 of 35, BUN 22, creatinine 0.8, glucose 140 and calcium 8.2. Total bili 0.9, AST 19, ALT 10, alkaline phosphatase 127, total protein 7.9, albumin is 3.1. Urinalysis as of 03/01/2018, straw colored, clear, pH 7, specific gravity 1.006, protein negative, glucose normal, ketones negative, blood 1+, nitrites negative, bilirubin negative, urobilinogen normal, leukocyte esterase negative, wbc 3, rbc 7. Urine culture as of 03/01/2018 negative and blood culture x2 negative as of 03/01/2018. MRSA screening was negative and as of 03/04/2018, blood culture x2 is negative. The other reports as of 03/01/2018, impression, no significant interval change noted since the previous exam. The ET tube is seen at appropriate position. Lungs, heterogenous opacity in the left lung is again noted and diffuse reticular opacities in the lungs and pleural thickening are again noted. ET tube is seen in appropriate position. As of 03/05/2018 chest x-ray, limited interval change in the multifocal air-space disease in the right lower lobe and in the left lung, background of interstitial pulmonary disease, stable position of supportive lines and tubes. IMPRESSION: 1. In summary again, Mr. Lawler is a 72-year-old elderly male with a history of Alzheimer's dementia; arthritis; emphysema; was admitted with respiratory failure, bilateral infiltrates, on ventilator, polyuria. 1.Polyuria is consistent with osmotic-induced diuresis secondary to continuous infusion of normal saline at 100-150 mL/hour. Picture is not consistent with nephrogenic diabetes insipidus or central diabetes insipidus . It is osmotic diuresis secondary to electrolyte induced, secondary to normal saline infusion. 2. Respiratory failure secondary to bilateral pneumonia. 3. Dementia. PLAN. Continue IV antibiotics as per ID recommendations, meropenem, vancomycin and micafungin. Continue vent support and continue DVT prophylaxis and also GI prophylaxis. DC desmopressin and DC normal saline IV fluids. Continue pressor support. We will follow with you. Thank you for allowing me to participate in your patient's care and continue to monitor magnesium and phosphorus. I agree with appropriate supplement for the magnesium, phosphorus and potassium. Overall prognosis is guarded Edwige Sanchez MD MTDD
[2018-03-06 06:05] LABS: ARTERIAL BLOOD GAS HCO3 29.9 mmol/L (21-28); ARTERIAL BLOOD GAS PCO2 48 mm/Hg (35-45); ARTERIAL BLOOD GAS PH 7.43 (7.35-7.45); ARTERIAL BLOOD GAS PO2 106 mm/Hg (80-100); ARTERIAL BLOOD GAS TCO2 33.4 mmol/L (22-28)
[2018-03-06 06:18] LABS: BASO # 0.1 K/uL (0.0-0.2); BASO % 0.5 % (0.0-2.0); EOS # 0.1 K/uL (0.0-0.7); EOS % 0.7 % (0.0-4.0); HEMOGLOBIN 11.2 g/dL (12.0-18.0); LYMPH # 1.4 K/uL (1.0-4.3); LYMPH % 7.3 % (20.0-40.0); MEAN CELL VOLUME 90.9 fL (80.0-94.0); MEAN CORPUSCULAR HEMOGLOBIN 29.9 pg (27.0-31.0); MEAN CORPUSCULAR HGB CONC 32.9 g/dL (33.0-37.0); MEAN PLATELET VOLUME 8.1 fL (7.2-11.7); MONO # 0.9 K/uL (0.0-0.8); MONO % 4.9 % (0.0-10.0); NEUT # 16.4 K/uL (1.8-7.0); NEUT % 86.6 % (50.0-75.0); PLATELET COUNT 270 K/uL (130-400); RBC 3.76 Mil/uL (4.40-5.90); RED CELL DISTRIBUTION WIDTH 14.9 % (11.5-14.5)
[2018-03-06 06:41] LABS: ALB/GLOB RATIO 0.6 (1.0-2.1); ALBUMIN 2.6 g/dL (3.5-5.0); ALT/SGPT 18 U/L (21-72); AST/SGOT 28 U/L (17-59); BLOOD UREA NITROGEN 6 mg/dL (9-20); GFR NON-AFRICAN AMERICAN > 60
[2018-03-06] MEDS ORDERED: Magnesium Sulfate 1 gm in D5W 1 GM/100 ML BAG IVPB ONE (08:00)
[2018-03-06 08:30] LABS: ANISOCYTOSIS SLIGHT; LYMPHOCYTE 9 % (20-40); MONOCYTE 9 % (0-10); MYELOCYTE 1 % (0-0); NEUTROPHIL 81 % (50-75); PLATELET ESTIMATE NORMAL (NORMAL); POIKILOCYTOSIS SLIGHT; TOTAL CELLS COUNTED 100
[2018-03-06] MEDS ORDERED: Potassium Phosphate 15 MMOLE in Dextrose 5% In Water 250 ML IVPB ONE (08:30)
[2018-03-06 08:31] LABS: GIANT PLATELETS PRESENT; HYPOCHROMIC SLIGHT; LARGE PLATELETS PRESENT
--- NOTE | 2018-03-06 10:59 | CP.PCM.PN ---
Subjective - Date & Time of Evaluation Date of Evaluation: 03/06/18 Time of Evaluation: 16:03 - Subjective Subjective: PT INTUBATED. ROS; UNOBTAINABLE Objective - Vital Signs/Intake and Output Vital Signs (last 24 hours): Temp Pulse Resp BP Pulse Ox 98.9 F 85 21 106/65 100 03/06/18 08:00 03/06/18 10:41 03/06/18 10:41 03/06/18 10:41 03/06/18 10:41 Intake and Output: 03/06/18 03/06/18 06:59 18:59 Intake Total 7244.1 1353.9 Output Total 4700 915 Balance 2544.1 438.9 - Medications Medications: Current Medications Acetaminophen (Tylenol 650mg/20.3ml Solution Ud) 650 mg NG Q6 PRN PRN Reason: Fever >100.4 F Last Admin: 03/05/18 21:23 Dose: 650 mg Albuterol/Ipratropium (Duoneb 3 Mg/0.5 Mg (3 Ml) Ud) 3 ml INH RQ6 VELMA Last Admin: 03/06/18 07:46 Dose: 3 ml Famotidine (Pepcid) 20 mg IVP Q12 VELMA Last Admin: 03/06/18 09:05 Dose: 20 mg Heparin Sodium (Porcine) (Heparin) 5,000 units SC Q8 VELMA Last Admin: 03/06/18 05:24 Dose: 5,000 units Norepinephrine Bitartrate 4 mg (/ Sodium Chloride) 254 mls @ 15.24 mls/hr IV .[id number] PRN; Protocol PRN Reason: TITRATE PER MD ORDER Last Titration: 03/05/18 19:00 Dose: 0 mcg/min, 0 mls/hr Dexmedetomidine HCl 200 mcg/ (Sodium Chloride) 50 mls @ 2.77 mls/hr IV TITR PRN; Protocol PRN Reason: Agitation Last Admin: 03/06/18 09:52 Dose: 0.7 mcg/kg/hr, 9.71 mls/hr Micafungin Sodium 100 mg/ (Sodium Chloride) 100 mls @ 100 mls/hr IV Q24H VELMA; Protocol Last Admin: 03/06/18 00:59 Dose: 100 mls/hr Meropenem 500 mg/ Sodium (Chloride) 100 mls @ 100 mls/hr IVPB Q8H VELMA; Protocol Last Admin: 03/06/18 08:26 Dose: 100 mls/hr Metronidazole (Flagyl) 500 mg in 100 mls @ 100 mls/hr IVPB Q12H VELMA; Protocol Last Admin: 03/06/18 01:00 Dose: 100 mls/hr Desmopressin Acetate 2 mcg/ (Sodium Chloride) 50.5 mls @ 100 mls/hr IV Q12 VELMA Last Admin: 03/05/18 21:26 Dose: 100 mls/hr Sodium Chloride (Sodium Chloride 0.9%) 1,000 mls @ 0 mls/hr IV .Q0M VELMA Last Admin: 03/06/18 07:00 Dose: 175 mls/hr Phenylephrine HCl 30 mg/ (Sodium Chloride) 253 mls @ 10.12 mls/hr IV .Q24H PRN; Protocol PRN Reason: TITRATE PER MD ORDER Last Admin: 03/06/18 09:50 Dose: 120 mcg/min, 60.72 mls/hr Vancomycin HCl 1,000 mg/ (Sodium Chloride) 250 mls @ 166.6 mls/hr IVPB Q12H VELMA; Protocol Last Admin: 03/06/18 03:57 Dose: 166.6 mls/hr Potassium Phosphate 15 mmole/ (Dextrose) 255 mls @ 42.5 mls/hr IVPB ONCE ONE Stop: 03/06/18 14:29 Last Admin: 03/06/18 08:44 Dose: 42.5 mls/hr Calcium Gluconate 2,000 mg/ (Sodium Chloride) 270 mls @ 0 mls/hr IVPB ONCE ONE Stop: 03/06/18 11:31 - Labs Labs: 03/06/18 06:11 03/06/18 06:09 - Constitutional Appears: Toxic, Cachectic, Chronically Ill - Head Exam Head Exam: ATRAUMATIC, NORMOCEPHALIC - Eye Exam Eye Exam: Normal appearance - ENT Exam Additional comments: ORAL ETT+ - Neck Exam Neck Exam: Normal Inspection - Respiratory Exam Respiratory Exam: Rhonchi - Cardiovascular Exam Cardiovascular Exam: RRR, +S1, +S2 - GI/Abdominal Exam GI & Abdominal Exam: Soft - Rectal Exam Rectal Exam: Deferred - Extremities Exam Extremities Exam: absent: Pedal Edema - Neurological Exam Additional comments: SEDATED - Skin Skin Exam: absent: Rash Assessment and Plan (1) Septic shock Status: Acute (2) Altered mental status Status: Acute (3) Pneumonia Status: Acute (4) Respiratory failure requiring intubation Status: Acute (5) COPD exacerbation Status: Acute (6) Cachexia Status: Acute (7) Cholelithiases Status: Acute (8) Alzheimer disease Status: Chronic - Assessment and Plan (Free Text) Assessment: TAPERED OFF IV LEVO, STILL HYPOTENSIVE ON IV VASO. HR BETTER CONTROLLED. CONT AC SUPPORT, TAPER FIO2 TOLERATED. ABG NOTED., BETTER OXYGENATION. CONT PULM TOILET. CXR REVIEWED. CONT IV AB. OFF IVF PER RENAL, CORRECT ELECTROLYTES. PROG GAVE. DISCUSSED WITH STAFF AT LENGTH. TIME SPENT 1HR.,
--- NOTE | 2018-03-06 12:25 | CARD ---
APPROVED REPORT Date of service: 03/06/2018 EKG Measurement Heart [id number] <Conclusion> Normal sinus rhythm ST & T wave abnormality, consider anterior ischemia Prolonged QT Abnormal ECG
--- NOTE | 2018-03-06 13:12 | RAD ---
HISTORY: intubated COMPARISON: Chest x-ray performed 03/05/18 TECHNIQUE: Chest, one view. FINDINGS: Endotracheal tube terminates approximately 2 cm above the mandie. Nasogastric tube extends expected location of the stomach. Left-sided central venous catheter extends to the brachiocephalic vein near the SVC junction. Numerous external wires and leads obscure evaluation of the underlying parenchyma. LUNGS: Again seen is diffuse interstitial thickening in the peripheral lungs. There is patchy airspace disease in the right lower lobe, lingula and left lower lobe. PLEURA: Right apical pleural thickening or fluid. No definite pneumothorax . CARDIOVASCULAR: Cardiomegaly. Atherosclerotic calcification present. OSSEOUS STRUCTURES: Osseous demineralization. Degenerative changes. Partially imaged metallic fixation bilateral humeri. VISUALIZED UPPER ABDOMEN: Unremarkable. OTHER FINDINGS: None. IMPRESSION: Endotracheal tube terminates approximately 2 cm above the mandie. Nasogastric tube extends expected location of the stomach. Left-sided central venous catheter extends to the brachiocephalic vein near the SVC junction. Cardiomegaly. Little interval change in multifocal airspace disease in the right lower lobe and in the left lung. Background of interstitial pulmonary disease.
--- NOTE | 2018-03-06 13:55 | CP.PCM.PN ---
Subjective - Date & Time of Evaluation Date of Evaluation: 03/06/18 Time of Evaluation: 13:53 - Subjective Subjective: Currently patient is intubated on a respirator. Blood pressure is now stable in the range of 707853 systolic. Chest x-ray remains unchanged. Patient had excess urine output of 7.8 L with hypokalemia. IV fluids and electrolytes adjusted. Continue IV antibiotics. Objective - Vital Signs/Intake and Output Vital Signs (last 24 hours): Temp Pulse Resp BP Pulse Ox 99.0 F 86 20 130/76 100 03/06/18 12:00 03/06/18 12:27 03/06/18 12:27 03/06/18 12:27 03/06/18 12:27 Intake and Output: 03/06/18 03/06/18 11:59 23:59 Intake Total 5445.7 480.9 Output Total 3435 160 Balance 2010.7 320.9 - Medications Medications: Current Medications Acetaminophen (Tylenol 650mg/20.3ml Solution Ud) 650 mg NG Q6 PRN PRN Reason: Fever >100.4 F Last Admin: 03/05/18 21:23 Dose: 650 mg Albuterol/Ipratropium (Duoneb 3 Mg/0.5 Mg (3 Ml) Ud) 3 ml INH RQ6 VELMA Last Admin: 03/06/18 13:33 Dose: 3 ml Famotidine (Pepcid) 20 mg IVP Q12 VELMA Last Admin: 03/06/18 09:05 Dose: 20 mg Heparin Sodium (Porcine) (Heparin) 5,000 units SC Q8 VELMA Last Admin: 03/06/18 13:47 Dose: 5,000 units Norepinephrine Bitartrate 4 mg (/ Sodium Chloride) 254 mls @ 15.24 mls/hr IV .[id number] PRN; Protocol PRN Reason: TITRATE PER MD ORDER Last Titration: 03/05/18 19:00 Dose: 0 mcg/min, 0 mls/hr Dexmedetomidine HCl 200 mcg/ (Sodium Chloride) 50 mls @ 2.77 mls/hr IV TITR PRN; Protocol PRN Reason: Agitation Last Admin: 03/06/18 09:52 Dose: 0.7 mcg/kg/hr, 9.71 mls/hr Micafungin Sodium 100 mg/ (Sodium Chloride) 100 mls @ 100 mls/hr IV Q24H VELMA; Protocol Last Admin: 03/06/18 00:59 Dose: 100 mls/hr Meropenem 500 mg/ Sodium (Chloride) 100 mls @ 100 mls/hr IVPB Q8H VELMA; Protocol Last Admin: 03/06/18 08:26 Dose: 100 mls/hr Metronidazole (Flagyl) 500 mg in 100 mls @ 100 mls/hr IVPB Q12H VELMA; Protocol Last Admin: 03/06/18 12:50 Dose: 100 mls/hr Desmopressin Acetate 2 mcg/ (Sodium Chloride) 50.5 mls @ 100 mls/hr IV Q12 VELMA Last Admin: 03/05/18 21:26 Dose: 100 mls/hr Sodium Chloride (Sodium Chloride 0.9%) 1,000 mls @ 0 mls/hr IV .Q0M VELMA Last Admin: 03/06/18 07:00 Dose: 175 mls/hr Phenylephrine HCl 30 mg/ (Sodium Chloride) 253 mls @ 10.12 mls/hr IV .Q24H PRN; Protocol PRN Reason: TITRATE PER MD ORDER Last Titration: 03/06/18 13:30 Dose: 90 mcg/min, 45.54 mls/hr Vancomycin HCl 1,000 mg/ (Sodium Chloride) 250 mls @ 166.6 mls/hr IVPB Q12H VELMA; Protocol Last Admin: 03/06/18 03:57 Dose: 166.6 mls/hr Potassium Phosphate 15 mmole/ (Dextrose) 255 mls @ 42.5 mls/hr IVPB ONCE ONE Stop: 03/06/18 14:29 Last Admin: 03/06/18 08:44 Dose: 42.5 mls/hr - Labs Labs: 03/06/18 06:11 03/06/18 06:09
--- NOTE | 2018-03-06 14:30 | CP.CCUPN ---
CCU Subjective - Physician Review Subjective (Free Text): Critical Care Progress Note for Dr. Anderson's service Patient seen and examined at bedside. 12 point ROS limited 2/2 patient clinical condition. Critical Care Time Spent (in minutes): 35 CCU Objective - Vital Signs / Intake & Output Vital Signs (Last 4 hours): Vital Signs Temp Pulse Resp BP Pulse Ox 03/06/18 14:00 80 23 100 03/06/18 13:57 84 22 138/69 100 03/06/18 13:27 78 22 136/72 100 03/06/18 13:00 78 20 100 03/06/18 12:57 80 20 117/65 100 03/06/18 12:27 86 20 130/76 100 03/06/18 12:00 99.0 F 85 20 121/72 100 03/06/18 11:57 85 20 121/72 100 03/06/18 11:27 86 20 118/70 100 03/06/18 11:00 91 H 21 100 03/06/18 10:57 86 20 128/73 100 03/06/18 10:41 85 21 106/65 100 03/06/18 10:30 87 22 80/52 L 100 Intake and Output (Last 8hrs): Intake & Output 03/05/18 03/06/18 03/06/18 22:59 06:59 14:59 Intake Total 4727.5 4453.6 2503.2 Output Total 2925 2750 1695 Balance 1802.5 1703.6 808.2 Weight 122 lb 1 oz Intake: IV 507 356 433 Intake, IV Amount 3860.5 3777.6 1690.2 Left Distal Port 550 Left Forearm 300 100 Left Medial Port Internal 412.5 Jugular Proximal port IJ 2925 2750 712 R UA PICC 225.1 Right Forearm 100.4 77.6 77.6 Right PICC 240 400 388.1 right arm PICC 70 Oral 60 Tube Feeding 360 320 320 Output: Urine 2925 2750 1695 Urethral (Simmons) 2925 2750 1695 Other: # Bowel Movements 0 0 0 - Physical Exam Physical Exam Limitations: Positive for: Clinical Condition Head: Positive for: Atraumatic, Normocephalic Pupils: Positive for: PERRL Extroacular Muscles: Positive for: EOMI Conjunctiva: Positive for: Normal Ears: Positive for: Normal Mouth: Positive for: Dry, Other (ORAL ETT) Neck: Negative for: JVD Respiratory/Chest: Positive for: Good Air Exchange, Rhonchi. Negative for: Respiratory Distress Cardiovascular: Positive for: Normal S1, S2. Negative for: Murmurs, Irregular Rhythm, Tachycardic, Bradycardic Abdomen: Positive for: Normal Bowel Sounds. Negative for: Tenderness, Distention, Peritoneal Signs Upper Extremity: Positive for: Normal Inspection. Negative for: Cyanosis, Edema Lower Extremity: Positive for: Normal Inspection. Negative for: Edema Skin: Positive for: Dry, Normal Color Psychiatric: Positive for: Alert - Medications Active Medications: Active Medications Generic Name Dose Route Start Last Admin Trade Name Freq PRN Reason Stop Dose Admin Acetaminophen 650 mg 03/01/18 21:09 03/05/18 21:23 Tylenol 650mg/20.3ml Solution Ud NG 650 mg Q6 PRN Administration Fever >100.4 F Albuterol/Ipratropium 3 ml 03/02/18 14:00 03/06/18 13:33 Duoneb 3 Mg/0.5 Mg (3 Ml) Ud INH 3 ml RQ6 VELMA Administration Famotidine 20 mg 03/01/18 22:15 03/06/18 09:05 Pepcid IVP 20 mg Q12 VELMA Administration Heparin Sodium (Porcine) 5,000 units 03/05/18 17:30 03/06/18 13:47 Heparin SC 5,000 units Q8 VELMA Administration Norepinephrine Bitartrate 4 mg 254 mls @ 15.24 mls/hr 03/01/18 19:08 03/05/18 19:00 / Sodium Chloride IV 0 mcg/min .[id number] PRN 0 mls/hr TITRATE PER MD ORDER Titration Protocol 4 MCG/MIN Dexmedetomidine HCl 200 mcg/ 50 mls @ 2.77 mls/hr 03/03/18 07:40 03/06/18 09:52 Sodium Chloride IV 0.7 mcg/kg/hr TITR PRN 9.71 mls/hr Agitation Administration Protocol 0.2 MCG/KG/HR Micafungin Sodium 100 mg/ 100 mls @ 100 mls/hr 03/04/18 01:00 03/06/18 00:59 Sodium Chloride IV 100 mls/hr Q24H VELMA Administration Protocol Meropenem 500 mg/ Sodium 100 mls @ 100 mls/hr 03/04/18 01:15 03/06/18 08:26 Chloride IVPB 100 mls/hr Q8H VELMA Administration Protocol Metronidazole 500 mg in 100 mls @ 100 mls/hr 03/05/18 01:30 03/06/18 12:50 Flagyl IVPB 100 mls/hr Q12H VELMA Administration Protocol Desmopressin Acetate 2 mcg/ 50.5 mls @ 100 mls/hr 03/05/18 10:00 03/05/18 21:26 Sodium Chloride IV 100 mls/hr Q12 VELMA Administration Sodium Chloride 1,000 mls @ 0 mls/hr 03/05/18 11:45 03/06/18 07:00 Sodium Chloride 0.9% IV 175 mls/hr .Q0M VELMA Administration UD Phenylephrine HCl 30 mg/ 253 mls @ 10.12 mls/hr 03/05/18 17:42 03/06/18 14:12 Sodium Chloride IV 80 mcg/min .Q24H PRN 40.48 mls/hr TITRATE PER MD ORDER Titration Protocol 20 MCG/MIN Vancomycin HCl 1,000 mg/ 250 mls @ 166.6 mls/hr 03/06/18 04:00 03/06/18 03:57 Sodium Chloride IVPB 166.6 mls/hr Q12H VELMA Administration Protocol Potassium Phosphate 15 mmole/ 255 mls @ 42.5 mls/hr 03/06/18 08:30 03/06/18 08:44 Dextrose IVPB 03/06/18 14:29 42.5 mls/hr ONCE ONE Administration - Patient Studies Lab Studies: Microbiology Studies 03/04/18 05:50 Blood Culture - Preliminary Blood-Thru Central Line NO GROWTH AFTER 48 HOURS 03/04/18 05:50 Blood Culture - Preliminary Blood-Thru Central Line NO GROWTH AFTER 48 HOURS 03/01/18 19:09 Blood Culture - Preliminary Blood NO GROWTH AFTER 4 DAYS 03/01/18 19:09 Blood Culture - Preliminary Blood NO GROWTH AFTER 4 DAYS Lab Studies 03/06/18 03/06/18 03/06/18 Range/Units 06:11 06:09 05:31 WBC 19.0 H (4.8-10.8) K/uL RBC 3.76 L (4.40-5.90) Mil/uL Hgb 11.2 L (12.0-18.0) g/dL Hct 34.2 L (35.0-51.0) % MCV 90.9 D (80.0-94.0) fL MCH 29.9 (27.0-31.0) pg MCHC 32.9 L (33.0-37.0) g/dL RDW 14.9 H (11.5-14.5) % Plt Count 270 (130-400) K/uL MPV 8.1 (7.2-11.7) fL Neut % (Auto) 86.6 H (50.0-75.0) % Lymph % (Auto) 7.3 L (20.0-40.0) % Hardee % (Auto) 4.9 (0.0-10.0) % Eos % (Auto) 0.7 (0.0-4.0) % Baso % (Auto) 0.5 (0.0-2.0) % Neut # (Auto) 16.4 H (1.8-7.0) K/uL Lymph # (Auto) 1.4 (1.0-4.3) K/uL Hardee # (Auto) 0.9 H (0.0-0.8) K/uL Eos # (Auto) 0.1 (0.0-0.7) K/uL Baso # (Auto) 0.1 (0.0-0.2) K/uL Neutrophils % (Manual) 81 H (50-75) % Lymphocytes % (Manual) 9 L (20-40) % Monocytes % (Manual) 9 (0-10) % Myelocytes % 1 H (0-0) % Platelet Estimate Normal (NORMAL) Large Platelets Present Giant Platelets Present Hypochromasia (manual) Slight Poikilocytosis (manual Slight Anisocytosis (manual) Slight Puncture Site Lbra pCO2 48 H (35-45) mm/Hg pO2 106 H (80-100) mm/Hg HCO3 29.9 H (21-28) mmol/L ABG pH 7.43 (7.35-7.45) ABG Total CO2 33.4 H (22-28) mmol/L ABG O2 Saturation 99.0 H (95-98) % ABG Base Excess 6.4 H (-2.0-3.0) mmol/L Bereket Test Na ABG Potassium 2.1 L* (3.6-5.2) mmol/L A-a O2 Difference 191.0 mm/Hg Respiratory Index 1.8 Glucose 113 H (75-110) mg/dl Lactate 0.9 (0.7-2.1) mmol/L Vent Mode Prvc Mechanical Rate 20 FiO2 50.0 % Tidal Volume 450 PEEP 5 Crit Value Called To Kerline mendoza rn Crit Value Called By Thelma cloud rt Crit Value Read Back Y Blood Gas Notified Time 604 Sodium 134 135.0 (132-148) mmol/L Potassium 2.5 L* D (3.6-5.2) mmol/L Chloride 94 L 100.0 (98-107) mmol/L Carbon Dioxide 32 H (22-30) mmol/L Anion Gap 10 (10-20) BUN 6 L (9-20) mg/dL Creatinine 0.3 L (0.8-1.5) mg/dL Est GFR ( Amer) > 60 Est GFR (Non-Af Amer) > 60 Random Glucose 102 D (75-110) mg/dL Calcium 6.0 L* (8.6-10.4) mg/dl Phosphorus 2.4 L (2.5-4.5) mg/dL Magnesium 1.3 L (1.6-2.3) mg/dL Total Bilirubin 0.7 (0.2-1.3) mg/dL AST 28 (17-59) U/L ALT 18 L D (21-72) U/L Alkaline Phosphatase 154 H (38-126) U/L Total Protein 6.6 (6.3-8.3) g/dL Albumin 2.6 L (3.5-5.0) g/dL Globulin 4.1 H (2.2-3.9) gm/dL Albumin/Globulin Ratio 0.6 L (1.0-2.1) Arterial Blood Potassium 2.1 L* (3.6-5.2) mmol/L Urine Osmolality (300-1000) mosm/kg Ur Random Creatinine mg/dL Ur Random Sodium mmol/L Ur Random Phosphorus mg/dL Ur Random Glucose mg/dL 03/05/18 03/05/18 Range/Units 18:03 14:22 WBC (4.8-10.8) K/uL RBC (4.40-5.90) Mil/uL Hgb (12.0-18.0) g/dL Hct (35.0-51.0) % MCV (80.0-94.0) fL MCH (27.0-31.0) pg MCHC (33.0-37.0) g/dL RDW (11.5-14.5) % Plt Count (130-400) K/uL MPV (7.2-11.7) fL Neut % (Auto) (50.0-75.0) % Lymph % (Auto) (20.0-40.0) % Hardee % (Auto) (0.0-10.0) % Eos % (Auto) (0.0-4.0) % Baso % (Auto) (0.0-2.0) % Neut # (Auto) (1.8-7.0) K/uL Lymph # (Auto) (1.0-4.3) K/uL Hardee # (Auto) (0.0-0.8) K/uL Eos # (Auto) (0.0-0.7) K/uL Baso # (Auto) (0.0-0.2) K/uL Neutrophils % (Manual) (50-75) % Lymphocytes % (Manual) (20-40) % Monocytes % (Manual) (0-10) % Myelocytes % (0-0) % Platelet Estimate (NORMAL) Large Platelets Giant Platelets Hypochromasia (manual) Poikilocytosis (manual Anisocytosis (manual) Puncture Site pCO2 (35-45) mm/Hg pO2 (80-100) mm/Hg HCO3 (21-28) mmol/L ABG pH (7.35-7.45) ABG Total CO2 (22-28) mmol/L ABG O2 Saturation (95-98) % ABG Base Excess (-2.0-3.0) mmol/L Bereket Test ABG Potassium (3.6-5.2) mmol/L A-a O2 Difference mm/Hg Respiratory Index Glucose (75-110) mg/dl Lactate (0.7-2.1) mmol/L Vent Mode Mechanical Rate FiO2 % Tidal Volume PEEP Crit Value Called To Crit Value Called By Crit Value Read Back Blood Gas Notified Time Sodium 133 (132-148) mmol/L Potassium 3.6 (3.6-5.2) mmol/L Chloride 97 L (98-107) mmol/L Carbon Dioxide 32 H (22-30) mmol/L Anion Gap 8 L (10-20) BUN 6 L (9-20) mg/dL Creatinine 0.3 L (0.8-1.5) mg/dL Est GFR ( Amer) > 60 Est GFR (Non-Af Amer) > 60 Random Glucose 131 H (75-110) mg/dL Calcium 6.3 L (8.6-10.4) mg/dl Phosphorus 3.4 (2.5-4.5) mg/dL Magnesium 1.7 (1.6-2.3) mg/dL Total Bilirubin 0.7 (0.2-1.3) mg/dL AST 39 (17-59) U/L ALT 13 L D (21-72) U/L Alkaline Phosphatase 140 H (38-126) U/L Total Protein 6.5 (6.3-8.3) g/dL Albumin 2.3 L (3.5-5.0) g/dL Globulin 4.1 H (2.2-3.9) gm/dL Albumin/Globulin Ratio 0.6 L (1.0-2.1) Arterial Blood Potassium (3.6-5.2) mmol/L Urine Osmolality 425 (300-1000) mosm/kg Ur Random Creatinine 7.7 mg/dL Ur Random Sodium 183 mmol/L Ur Random Phosphorus < 5.5 mg/dL Ur Random Glucose < 20 mg/dL Laboratory Results - last 24 hr 03/05/18 03/05/18 03/06/18 14:22 18:03 05:31 WBC RBC Hgb Hct MCV MCH MCHC RDW Plt Count MPV Neut % (Auto) Lymph % (Auto) Hardee % (Auto) Eos % (Auto) Baso % (Auto) Neut # (Auto) Lymph # (Auto) Hardee # (Auto) Eos # (Auto) Baso # (Auto) Neutrophils % (Manual) Lymphocytes % (Manual) Monocytes % (Manual) Myelocytes % Platelet Estimate Large Platelets Giant Platelets Hypochromasia (manual) Poikilocytosis (manual Anisocytosis (manual) Puncture Site Lbra pCO2 48 H pO2 106 H HCO3 29.9 H ABG pH 7.43 ABG Total CO2 33.4 H ABG O2 Saturation 99.0 H ABG Base Excess 6.4 H Bereket Test Na ABG Potassium 2.1 L* A-a O2 Difference 191.0 Respiratory Index 1.8 Glucose 113 H Lactate 0.9 Vent Mode Prvc Mechanical Rate 20 FiO2 50.0 Tidal Volume 450 PEEP 5 Crit Value 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 Crit Value Called By Thelma cloud rt Crit Value Read Back Y Blood Gas Notified Time 604 Sodium 133 135.0 Potassium 3.6 Chloride 97 L 100.0 Carbon Dioxide 32 H Anion Gap 8 L BUN 6 L Creatinine 0.3 L Est GFR ( Amer) > 60 Est GFR (Non-Af Amer) > 60 Random Glucose 131 H Calcium 6.3 L Phosphorus 3.4 Magnesium 1.7 Total Bilirubin 0.7 AST 39 ALT 13 L D Alkaline Phosphatase 140 H Total Protein 6.5 Albumin 2.3 L Globulin 4.1 H Albumin/Globulin Ratio 0.6 L Arterial Blood Potassium 2.1 L* Urine Osmolality 425 Ur Random Creatinine 7.7 Ur Random Sodium 183 Ur Random Phosphorus < 5.5 Ur Random Glucose < 20 03/06/18 03/06/18 06:09 06:11 WBC 19.0 H RBC 3.76 L Hgb 11.2 L Hct 34.2 L MCV 90.9 D MCH 29.9 MCHC 32.9 L RDW 14.9 H Plt Count 270 MPV 8.1 Neut % (Auto) 86.6 H Lymph % (Auto) 7.3 L Hardee % (Auto) 4.9 Eos % (Auto) 0.7 Baso % (Auto) 0.5 Neut # (Auto) 16.4 H Lymph # (Auto) 1.4 Hardee # (Auto) 0.9 H Eos # (Auto) 0.1 Baso # (Auto) 0.1 Neutrophils % (Manual) 81 H Lymphocytes % (Manual) 9 L Monocytes % (Manual) 9 Myelocytes % 1 H Platelet Estimate Normal Large Platelets Present Giant Platelets Present Hypochromasia (manual) Slight Poikilocytosis (manual Slight Anisocytosis (manual) Slight Puncture Site pCO2 pO2 HCO3 ABG pH ABG Total CO2 ABG O2 Saturation ABG Base Excess Bereket Test ABG Potassium A-a O2 Difference Respiratory Index Glucose Lactate Vent Mode Mechanical Rate FiO2 Tidal Volume PEEP Crit Value Called To Crit Value Called By Crit Value Read Back Blood Gas Notified Time Sodium 134 Potassium 2.5 L* D Chloride 94 L Carbon Dioxide 32 H Anion Gap 10 BUN 6 L Creatinine 0.3 L Est GFR ( Amer) > 60 Est GFR (Non-Af Amer) > 60 Random Glucose 102 D Calcium 6.0 L* Phosphorus 2.4 L Magnesium 1.3 L Total Bilirubin 0.7 AST 28 ALT 18 L D Alkaline Phosphatase 154 H Total Protein 6.6 Albumin 2.6 L Globulin 4.1 H Albumin/Globulin Ratio 0.6 L Arterial Blood Potassium Urine Osmolality Ur Random Creatinine Ur Random Sodium Ur Random Phosphorus Ur Random Glucose Radiology Impressions: Radiology Impressions Chest X-Ray 03/06/18 07:00 IMPRESSION: Endotracheal tube terminates approximately 2 cm above the mandie. Nasogastric tube extends expected location of the stomach. Left-sided central venous catheter extends to the brachiocephalic vein near the SVC junction. Cardiomegaly. Little interval change in multifocal airspace disease in the right lower lobe and in the left lung. Background of interstitial pulmonary disease. EKG/Cardiology Studies: Cardiology / EKG Studies 03/06/18 10:16 EKG [ELECTROCARDIOGRAM] Routine Comment: Mode Of Transportation: Reason For Exam: hypokalemia, hypocalcemia Isolation: Contact Review of Systems - Review of Systems Systems not reviewed;Unavailable: Intubated Critical Care Progress Note - Ventilator Checklist Head of Bed 30 Degrees: Yes Daily Sedation Vacation: Yes Daily Assessment of Readiness to Wean: Yes Daily Spontaneous Breathing Trial: Yes PUD Prophalyxis: Yes DVT Prophylaxis: Yes Oral Care with Chlorhexidine Gluconate {CHG}: Yes - Vent Settings MODE:: PRVC TIDAL VOLUME:: 450 RESP RATE:: 20 FIO2:: 50 PEEP:: 5 - Extremities/Vascular Does the Patient have a Central Venous Catheter?: Yes Insertion Site: Internal Jugular Vein Does the Patient need a Central Venous Catheter?: Yes Does the Patient have a Simmons Catheter?: Yes Does the Patient need a Simmons Catheter?: Yes Catheter Insertion Criteria: Need for accurate measurement of output in critically ill patient - Restraints Justification for Restraints: High risk for self extubation, High risk for removing IV access - Prophylaxis GI Prophylaxis GI: Pepsid - Prophylaxis DVT Prophylaxis DVT: Heparin SQ Assessment/Plan - Assessment and Plan (Free Text) Assessment: 72yo M. PMHx COPD, Alzheimer's, CHF, arthritis. recent hospitalizaion for cholelithiasis and pneumonia. Discharged home receiving IV abx. presents back with worsening pneumonia, and progression into septic shock. Intubated in field at home. On ABG found to have hypercanpeic resp failure with leukocytosis Neuro: Intubated / Sedated; Precedex 200 mcg in NS; patient alert Pulm: Respiratory failure 2/2 PNA and pulm edema; On vent (20/50/450/5); Duonebs, Vanc/Meropenem/Micafungin/Flagyl CV: septic shock; Levo dc'ed on Phenylephrine; Central line inserted today Heme: No acute issues Renal: Electrolyte abnormalities; Repleting Potassium, Phosphorus, Calcium, Magnesium with KCl 20 meq, KPhos, Calcium gluconate, and Mag Sulfate; Nephro consulted: DC fluids, DC desmopressin; Vanc trough below; Repeat BMP Endo: No acute issues GI: NPO, tube feedings (pulmocare) ID: Septic shock 2/2 PNA; Vanc/Meropenem/Micafungin/Flagyl; increase in WBC from yesterday DVT ppx - heparin sq GI ppx - pepcid Tylenol solution prn for fever Iris for strict I/O's during acute illness PGY-1 Merry Mendoza d/w Dr. Anderson
[2018-03-06 16:38] LABS: ALB/GLOB RATIO 0.6 (1.0-2.1); ALBUMIN 2.3 g/dL (3.5-5.0); ALT/SGPT 12 U/L (21-72); AST/SGOT 22 U/L (17-59); BLOOD UREA NITROGEN 7 mg/dL (9-20); CALCIUM 6.5 mg/dl (8.6-10.4); GFR NON-AFRICAN AMERICAN > 60
[2018-03-06] MEDS: Acetaminophen 650mg/20.3ml solution UD NG PRN ×2 (16:43→21:21)
[2018-03-06] MEDS ORDERED: Sodium Chloride 0.9% 500 ML IV SCH ×3 (17:30→18:25)
[2018-03-06] MEDS: Magnesium Sulfate 1 gm in D5W 1 GM/100 ML BAG IVPB SCH ×2 (17:41→18:06)
[2018-03-06] MEDS ORDERED: Potassium Chloride 20 mEq/15 ml LIQ UD PO ONE (17:45)
[2018-03-06] MEDS ORDERED: Potassium Chl 40 mEq in D5-1/2 1,000 ML IV SCH (17:45)
[2018-03-06] MEDS ORDERED: Sodium Chloride 0.9% 500 ML IV ONE ×2 (18:13→22:18)
--- NOTE | 2018-03-06 18:43 | CP.PCM.PN ---
Subjective - Date & Time of Evaluation Date of Evaluation: 03/06/18 Time of Evaluation: 18:42 - Subjective Subjective: pt is seen and examined, follow up consult is dictated #[id number] Objective - Vital Signs/Intake and Output Vital Signs (last 24 hours): Temp Pulse Resp BP Pulse Ox 99.2 F 126 H 31 H 74/38 L 92 L 03/06/18 17:43 03/06/18 18:12 03/06/18 18:12 03/06/18 18:13 03/06/18 18:12 Intake and Output: 03/06/18 03/06/18 06:59 18:59 Intake Total 7244.1 3254.4 Output Total 4700 2305 Balance 2544.1 949.4 - Medications Medications: Current Medications Acetaminophen (Tylenol 650mg/20.3ml Solution Ud) 650 mg NG Q6 PRN PRN Reason: Fever >100.4 F Last Admin: 03/06/18 16:43 Dose: 650 mg Albuterol/Ipratropium (Duoneb 3 Mg/0.5 Mg (3 Ml) Ud) 3 ml INH RQ6 VELMA Last Admin: 03/06/18 13:33 Dose: 3 ml Famotidine (Pepcid) 20 mg IVP Q12 VELMA Last Admin: 03/06/18 09:05 Dose: 20 mg Heparin Sodium (Porcine) (Heparin) 5,000 units SC Q8 VELMA Last Admin: 03/06/18 13:47 Dose: 5,000 units Dexmedetomidine HCl 200 mcg/ (Sodium Chloride) 50 mls @ 2.77 mls/hr IV TITR PRN; Protocol PRN Reason: Agitation Last Admin: 03/06/18 15:18 Dose: 0.7 mcg/kg/hr, 9.71 mls/hr Micafungin Sodium 100 mg/ (Sodium Chloride) 100 mls @ 100 mls/hr IV Q24H VELMA; Protocol Last Admin: 03/06/18 00:59 Dose: 100 mls/hr Meropenem 500 mg/ Sodium (Chloride) 100 mls @ 100 mls/hr IVPB Q8H VELMA; Protocol Last Admin: 03/06/18 16:26 Dose: 100 mls/hr Metronidazole (Flagyl) 500 mg in 100 mls @ 100 mls/hr IVPB Q12H VELMA; Protocol Last Admin: 03/06/18 12:50 Dose: 100 mls/hr Desmopressin Acetate 2 mcg/ (Sodium Chloride) 50.5 mls @ 100 mls/hr IV Q12 VELMA Last Admin: 03/05/18 21:26 Dose: 100 mls/hr Sodium Chloride (Sodium Chloride 0.9%) 1,000 mls @ 0 mls/hr IV .Q0M VELMA Last Admin: 03/06/18 07:00 Dose: 175 mls/hr Phenylephrine HCl 30 mg/ (Sodium Chloride) 253 mls @ 10.12 mls/hr IV .Q24H PRN; Protocol PRN Reason: TITRATE PER MD ORDER Last Titration: 03/06/18 17:48 Dose: 180 mcg/min, 91.08 mls/hr Vancomycin HCl 1,000 mg/ (Sodium Chloride) 250 mls @ 166.6 mls/hr IVPB Q12H VELMA; Protocol Last Admin: 03/06/18 15:05 Dose: 166.6 mls/hr Potassium Chloride (Potassium Chloride 20 Meq/100 Ml) 20 meq in 100 mls @ 50 mls/hr IVPB Q1H COUNT INCLUDES THE [facility] Stop: 03/06/18 19:29 Last Admin: 03/06/18 17:40 Dose: 50 mls/hr Norepinephrine Bitartrate 4 mg (/ Dextrose) 254 mls @ 15.24 mls/hr IV .[id number] PRN; Protocol PRN Reason: TITRATE PER MD ORDER Last Admin: 03/06/18 18:08 Dose: 4 mcg/min, 15.24 mls/hr - Labs Labs: 03/06/18 06:11 03/06/18 16:20
[2018-03-06] MEDS: Albumin Human 25% (12.5 gm/50 ml) IV SCH (19:39)
--- NOTE | 2018-03-06 19:57 | CP.PCM.PN ---
Subjective - Date & Time of Evaluation Date of Evaluation: 03/06/18 Time of Evaluation: 19:57 - Subjective Subjective: TMAX 99.4 ON VASOPRESSERS. INTUBATED. AWAKE . ON NGT FEEDS ROS: NA LABS; REVIEWED. CXR 03/06/18.: LITTLE CHANGE MULTIFOCAL AIRSPACE DISEASE RLL/LEFT LUNG BACKGROUND INTERSTITIAL DISEASE SPUTUM +VE E.COLI +VE ESBL +VE YEAST, Objective - Vital Signs/Intake and Output Vital Signs (last 24 hours): Temp Pulse Resp BP Pulse Ox 99.2 F 104 H 28 H 86/46 L 100 03/06/18 17:43 03/06/18 19:41 03/06/18 19:41 03/06/18 19:41 03/06/18 19:41 Intake and Output: 03/06/18 03/07/18 18:59 06:59 Intake Total 4970.7 34 Output Total 2575 Balance 2395.7 34 - Medications Medications: Current Medications Acetaminophen (Tylenol 650mg/20.3ml Solution Ud) 650 mg NG Q6 PRN PRN Reason: Fever >100.4 F Last Admin: 03/06/18 16:43 Dose: 650 mg Albumin Human (Albumin Human 25% (12.5 Gm/50 Ml)) 12.5 gm IV Q8H VELMA Stop: 03/08/18 19:16 Last Admin: 03/06/18 19:39 Dose: 12.5 gm Albuterol/Ipratropium (Duoneb 3 Mg/0.5 Mg (3 Ml) Ud) 3 ml INH RQ6 VELMA Last Admin: 03/06/18 19:42 Dose: 3 ml Famotidine (Pepcid) 20 mg IVP Q12 VELMA Last Admin: 03/06/18 09:05 Dose: 20 mg Heparin Sodium (Porcine) (Heparin) 5,000 units SC Q8 VELMA Last Admin: 03/06/18 13:47 Dose: 5,000 units Dexmedetomidine HCl 200 mcg/ (Sodium Chloride) 50 mls @ 2.77 mls/hr IV TITR PRN; Protocol PRN Reason: Agitation Last Admin: 03/06/18 15:18 Dose: 0.7 mcg/kg/hr, 9.71 mls/hr Micafungin Sodium 100 mg/ (Sodium Chloride) 100 mls @ 100 mls/hr IV Q24H VELMA; Protocol Last Admin: 03/06/18 00:59 Dose: 100 mls/hr Meropenem 500 mg/ Sodium (Chloride) 100 mls @ 100 mls/hr IVPB Q8H VELMA; Protocol Last Admin: 03/06/18 16:26 Dose: 100 mls/hr Metronidazole (Flagyl) 500 mg in 100 mls @ 100 mls/hr IVPB Q12H VELMA; Protocol Last Admin: 03/06/18 12:50 Dose: 100 mls/hr Desmopressin Acetate 2 mcg/ (Sodium Chloride) 50.5 mls @ 100 mls/hr IV Q12 VELMA Last Admin: 03/05/18 21:26 Dose: 100 mls/hr Sodium Chloride (Sodium Chloride 0.9%) 1,000 mls @ 0 mls/hr IV .Q0M VELMA Last Admin: 03/06/18 07:00 Dose: 175 mls/hr Phenylephrine HCl 30 mg/ (Sodium Chloride) 253 mls @ 10.12 mls/hr IV .Q24H PRN; Protocol PRN Reason: TITRATE PER MD ORDER Last Admin: 03/06/18 19:41 Dose: 180 mcg/min, 91.08 mls/hr Vancomycin HCl 1,000 mg/ (Sodium Chloride) 250 mls @ 166.6 mls/hr IVPB Q12H VELMA; Protocol Last Admin: 03/06/18 15:05 Dose: 166.6 mls/hr Norepinephrine Bitartrate 4 mg (/ Dextrose) 254 mls @ 15.24 mls/hr IV .[id number] PRN; Protocol PRN Reason: TITRATE PER MD ORDER Last Titration: 03/06/18 19:00 Dose: 3.93 mcg/min, 15 mls/hr - Labs Labs: 03/06/18 06:11 03/06/18 16:20 - Constitutional Appears: No Acute Distress, Cachectic, Chronically Ill - Head Exam Head Exam: NORMAL INSPECTION - Eye Exam Eye Exam: PERRL. absent: Scleral icterus - ENT Exam ENT Exam: Normal Oropharynx - Neck Exam Neck Exam: Normal Inspection - Respiratory Exam Respiratory Exam: Rales (B/L RT>LT), Rhonchi - Cardiovascular Exam Cardiovascular Exam: Tachycardia, REGULAR RHYTHM, +S1, +S2 - GI/Abdominal Exam GI & Abdominal Exam: Soft, Normal Bowel Sounds - Extremities Exam Extremities Exam: Normal Capillary Refill. absent: Calf Tenderness, Pedal Edema - Neurological Exam Neurological Exam: Altered, CN II-XII Intact - Psychiatric Exam Psychiatric exam: Flat Affect - Skin Skin Exam: Normal Color, Warm Assessment and Plan (1) Sepsis associated hypotension Status: Acute (2) Respiratory failure requiring intubation Status: Acute (3) Altered mental status Status: Acute (4) Pneumonia Status: Acute (5) Abdominal pain Status: Acute (6) Cholelithiases Status: Acute - Assessment and Plan (Free Text) Plan: CONTINUE IV MERREM 500MG IVPB Q8HRLY 03/04/18 INCREASE IV VANCOMYCIN 1GM IVPB Q 12 HRLY (03/05) VANCO TROUGH PRIOR TO 4TH DOSE AND KEEP BETWEEN 10-20MG/DL. MONITOR RENAL FUNCTION CONTINUE IV MYCAFUNGIN 100MG IV PB Q 24 HRLY 03/04/18 CONTINUE IV FLAGYL 500MG IV [id number] FOR ANAEROBIC COVERAGE 03/05/18 PULMONARY TOILET. K+/MG +SUPPLEMENTED PER DIGESTER COOK TEAM. PROGNOSIS GUARDED. CASE DISCUSSED WITH STAFF/PMD.
[2018-03-06] MEDS ORDERED: Albumin Human 25% (12.5 gm/50 ml) IV ONE (22:17)
[2018-03-07] MEDS: Meropenem 500 MG in Sodium Chloride 0.9% 100 ML IVPB SCH ×3 (00:31→17:25)
[2018-03-07] MEDS: Micafungin 100 MG in Sodium Chloride 0.9% 100 ML IV SCH (00:32)
[2018-03-07] MEDS: metroNIDAZOLE IV 500 mg/100 ml 500 MG/100 ML BAG IVPB SCH (00:33)
[2018-03-07] MEDS: Albuterol-Ipratrop 3 mg / 0.5 (3 ml) UD INH SCH ×4 (01:34→19:08)
[2018-03-07] MEDS: Phenylephrine 30 MG in Sodium Chloride 0.9% 250 ML IV PRN ×3 (02:30→11:30)
[2018-03-07] MEDS: Albumin Human 25% (12.5 gm/50 ml) IV SCH ×4 (03:06→21:37)
--- NOTE | 2018-03-07 04:04 | PN ---
DATE: 03/06/2018 FOLLOWUP RENAL CONSULTATION REQUESTED BY: Dr. Mancera REASON FOR FOLLOWUP: Polyuria and for further evaluation and electrolyte imbalance. SUBJECTIVE: Mr. Lawler is a 72-year-old male with a past medical history significant for emphysema, Alzheimer's dementia, congestive heart failure, ex-smoker who was initially admitted to [facility] for acute cholecystitis and bronchial pneumonia. The patient was treated with IV antibiotics and bronchodilators, and the patient was discharged home with IV antibiotic due to poor respiratory status. The patient was admitted again with altered mental status and respiratory failure. The patient was intubated on ventilator. Renal consult was requested initially for polyuria. The patient remains intubated, not following commands. The patient's family at bedside. PHYSICAL EXAMINATION: GENERAL: Mr. Lawler is a 72-year-old elderly male, cachectic, on ventilator, not in distress. VITAL SIGNS: As follows: Blood pressure 107/65, pulse 145 to 158, respirations about 32, saturation 100% and temperature 98.9, and T-max is 104. Height 5 feet 7 inches. Weight is 122 pounds. HEENT: Pupils are normal and reactive to light and accommodation. Conjunctivae pink. Sclerae anicteric. LUNGS: Symmetric on both sides. Bilateral breath sounds present. No crackles. CARDIOVASCULAR SYSTEM: [place] at the fifth intercostal space, midclavicular line. S1 and S2 audible. Tachycardic. ABDOMEN: Normal in appearance. Soft, tympanitic. No guarding. No rigidity. No hepatosplenomegaly. CENTRAL NERVOUS SYSTEM: The patient is on ventilator. EXTREMITIES: No cyanosis. No clubbing. No edema. CURRENT MEDICATIONS: Include as follows: Precedex, DuoNeb inhaler, Flagyl 500 mg IV every 12 hours, subcutaneous heparin 5000 units every 8 hours, meropenem, micafungin, norepinephrine, Pepcid, phenylephrine, IV fluids, normal saline p.r.n., and vancomycin 1 g every 12 hours. His sputum cultures as of 03/02/2018, positive for E. coli and yeast. Blood culture as of 03/04/2018 is negative day-two x2. His I's and O's in the [place] 24 [place] [address] [place], output is 8750 mL, and positive about 4280 mL. LABORATORY DATA: Include as follows as of 03/06/2018: WBC 19, hemoglobin 11.2, hematocrit is 34.2, platelets 270, neutrophils 81, lymphs 9, monos 9, myelocyte 1. ABG: The pH is 7.43, pCO2 is 48, pO2 is 106, bicarb is 29.9, and saturation is 99% with the vent setting AC 20, tidal volume 450, FiO2 is 50%, PEEP of 5. His current laboratory data: Sodium 129, potassium is 3, chloride 92, CO2 of 31, BUN 7, creatinine 0.3, glucose of 109, calcium 6.5, phosphorus 3.4, magnesium 1.3. Total bili 0.6, AST 22, ALT 12, alkaline phosphatase is 125, total protein 6.1, albumin is 2.3. ASSESSMENT: In summary, Mr. Lawler is a 72-year-old elderly male with a history of Alzheimer's dementia, emphysema, ex-smoker, congestive heart failure, now was admitted with respiratory failure and altered mental status, on ventilator. 1. Polyuria, most likely secondary to normal saline infusion continuously. 2. Respiratory failure. 3. Bilateral pneumonia. 4. Urinary tract infection. PLAN: Continue IV antibiotics as per ID recommendation. Adjust as per the culture and sensitivity and start albumin 25% 50 mL every 8 hours x2 days and also continue IV fluids as needed. Case was discussed with ICU attending in rounds and also with the resident. Hyponatremia is most likely secondary to free water retention with desmopressin, and supplement magnesium and phosphorus and potassium as needed. Case discussed with the ICU resident in rounds. Edwige Sanchez MD [id number]
[2018-03-07] MEDS: Dexmedetomidine Hydrochloride 200 MCG in Sodium Chloride 0.9% 48 ML IV PRN ×3 (04:49→19:30)
[2018-03-07] MEDS: Acetaminophen 650mg/20.3ml solution UD NG PRN (05:29)
[2018-03-07 05:42] LABS: ARTERIAL BLOOD GAS HCO3 25.5 mmol/L (21-28); ARTERIAL BLOOD GAS O2 SAT 105.5 % (95-98); ARTERIAL BLOOD GAS PCO2 40 mm/Hg (35-45); ARTERIAL BLOOD GAS PH 7.41 (7.35-7.45); ARTERIAL BLOOD GAS PO2 105 mm/Hg (80-100); ARTERIAL BLOOD GAS TCO2 26.6 mmol/L (22-28)
[2018-03-07 06:30] LABS: BASO # 0.1 K/uL (0.0-0.2); BASO % 0.5 % (0.0-2.0); EOS # 0.1 K/uL (0.0-0.7); EOS % 0.6 % (0.0-4.0); HEMOGLOBIN 9.5 g/dL (12.0-18.0); LYMPH # 1.1 K/uL (1.0-4.3); LYMPH % 7.2 % (20.0-40.0); MEAN CELL VOLUME 89.4 fL (80.0-94.0); MEAN CORPUSCULAR HEMOGLOBIN 29.3 pg (27.0-31.0); MEAN CORPUSCULAR HGB CONC 32.7 g/dL (33.0-37.0); MEAN PLATELET VOLUME 8.5 fL (7.2-11.7); MONO # 0.9 K/uL (0.0-0.8); MONO % 5.8 % (0.0-10.0); NEUT # 13.4 K/uL (1.8-7.0); NEUT % 85.9 % (50.0-75.0); PLATELET COUNT 300 K/uL (130-400); RBC 3.25 Mil/uL (4.40-5.90); WHITE BLOOD COUNT 15.5 K/uL (4.8-10.8)
[2018-03-07 06:57] LABS: T4 4.99 ug/dL (5.5-11.0)
[2018-03-07 07:11] LABS: T3 1.09 nmol/L (1.49-2.60)
[2018-03-07 07:16] LABS: ALB/GLOB RATIO 0.9 (1.0-2.1); ALBUMIN 3.1 g/dL (3.5-5.0); ALT/SGPT 12 U/L (21-72); AST/SGOT 22 U/L (17-59); BLOOD UREA NITROGEN 7 mg/dL (9-20); CALCIUM 6.6 mg/dl (8.6-10.4); GFR NON-AFRICAN AMERICAN > 60
--- NOTE | 2018-03-07 07:51 | CP.PCM.PN ---
Subjective - Date & Time of Evaluation Date of Evaluation: 03/07/18 Time of Evaluation: 07:48 - Subjective Subjective: PT INTUBATED. ROS ; UNOBTAINABLE. Objective - Vital Signs/Intake and Output Vital Signs (last 24 hours): Temp Pulse Resp BP Pulse Ox 101.4 F H 106 H 26 H 102/64 100 03/07/18 05:34 03/07/18 06:00 03/07/18 06:00 03/07/18 05:58 03/07/18 06:00 Intake and Output: 03/07/18 03/07/18 06:59 18:59 Intake Total 4191.8 78 Output Total 2550 Balance 1641.8 78 - Medications Medications: Current Medications Acetaminophen (Tylenol 650mg/20.3ml Solution Ud) 650 mg NG Q6 PRN PRN Reason: Fever >100.4 F Last Admin: 03/07/18 05:29 Dose: 650 mg Albumin Human (Albumin Human 25% (12.5 Gm/50 Ml)) 12.5 gm IV Q8H VELMA Stop: 03/08/18 19:16 Last Admin: 03/07/18 03:06 Dose: 12.5 gm Albuterol/Ipratropium (Duoneb 3 Mg/0.5 Mg (3 Ml) Ud) 3 ml INH RQ6 VELMA Last Admin: 03/07/18 01:34 Dose: 3 ml Famotidine (Pepcid) 20 mg IVP Q12 VELMA Last Admin: 03/06/18 21:07 Dose: 20 mg Heparin Sodium (Porcine) (Heparin) 5,000 units SC Q8 VELMA Last Admin: 03/07/18 05:35 Dose: 5,000 units Dexmedetomidine HCl 200 mcg/ (Sodium Chloride) 50 mls @ 2.77 mls/hr IV TITR PRN; Protocol PRN Reason: Agitation Last Admin: 03/07/18 04:49 Dose: 0.69 mcg/kg/hr, 9.7 mls/hr Micafungin Sodium 100 mg/ (Sodium Chloride) 100 mls @ 100 mls/hr IV Q24H VELMA; Protocol Last Admin: 03/07/18 00:32 Dose: 100 mls/hr Meropenem 500 mg/ Sodium (Chloride) 100 mls @ 100 mls/hr IVPB Q8H VELMA; Protocol Last Admin: 03/07/18 00:31 Dose: 100 mls/hr Metronidazole (Flagyl) 500 mg in 100 mls @ 100 mls/hr IVPB Q12H VELMA; Protocol Last Admin: 03/07/18 00:33 Dose: 100 mls/hr Desmopressin Acetate 2 mcg/ (Sodium Chloride) 50.5 mls @ 100 mls/hr IV Q12 VELMA Last Admin: 03/05/18 21:26 Dose: 100 mls/hr Sodium Chloride (Sodium Chloride 0.9%) 1,000 mls @ 0 mls/hr IV .Q0M VELMA Last Admin: 03/06/18 07:00 Dose: 175 mls/hr Phenylephrine HCl 30 mg/ (Sodium Chloride) 253 mls @ 10.12 mls/hr IV .Q24H PRN; Protocol PRN Reason: TITRATE PER MD ORDER Last Titration: 03/07/18 07:15 Dose: 118.57 mcg/min, 60 mls/hr Vancomycin HCl 1,000 mg/ (Sodium Chloride) 250 mls @ 166.6 mls/hr IVPB Q12H VELMA; Protocol Last Admin: 03/07/18 03:07 Dose: 166.6 mls/hr Norepinephrine Bitartrate 4 mg (/ Dextrose) 254 mls @ 15.24 mls/hr IV .[id number] PRN; Protocol PRN Reason: TITRATE PER MD ORDER Last Titration: 03/07/18 07:15 Dose: 3 mcg/min, 11.43 mls/hr Potassium Chloride (Potassium Chloride 20 Meq/100 Ml) 20 meq in 100 mls @ 50 mls/hr IVPB ONCE ONE Stop: 03/07/18 09:39 - Labs Labs: 03/07/18 06:21 03/07/18 06:21 - Constitutional Appears: Toxic, Cachectic, Chronically Ill - Head Exam Head Exam: ATRAUMATIC, NORMOCEPHALIC - Eye Exam Eye Exam: Normal appearance - ENT Exam Additional comments: ORALL +ETT - Neck Exam Neck Exam: Normal Inspection - Respiratory Exam Respiratory Exam: Rhonchi - Cardiovascular Exam Cardiovascular Exam: RRR, +S1, +S2 - GI/Abdominal Exam GI & Abdominal Exam: Soft - Rectal Exam Rectal Exam: Deferred - Extremities Exam Extremities Exam: absent: Pedal Edema - Neurological Exam Additional comments: SEDATED Assessment and Plan (1) Septic shock Status: Acute (2) Altered mental status Status: Acute (3) Pneumonia Status: Acute (4) Respiratory failure requiring intubation Status: Acute (5) COPD exacerbation Status: Acute (6) Cachexia Status: Acute (7) Cholelithiases Status: Acute (8) Alzheimer disease Status: Chronic - Assessment and Plan (Free Text) Assessment: HYPOTENSIVE REQUIRING IV LEVO AND IV VASO, TAPER TOLERATED. CONT AC SUPPORT. PULM TOILET., MONITOR O2 SAT. ABG NOTED. CXR REVIEWED. CONT IV AB PER ID. RENAL F/U NOTED. PROG GRIM . DISCUSSED WITH STAFF AT LENGTH. TIME SPENT 1HR. DR GARCIA WILL BE COVERING [place] 03/08- 03/15/18.
[2018-03-07 08:51] LABS: ANISOCYTOSIS SLIGHT; HYPOCHROMIC SLIGHT; LYMPHOCYTE 11 % (20-40); MONOCYTE 3 % (0-10); NEUTROPHIL 86 % (50-75); PLATELET ESTIMATE NORMAL (NORMAL); POIKILOCYTOSIS SLIGHT; TOTAL CELLS COUNTED 100
[2018-03-07 08:52] LABS: TARGET CELLS SLIGHT
[2018-03-07 08:53] LABS: LARGE PLATELETS PRESENT
--- NOTE | 2018-03-07 10:04 | RAD ---
Date of service: 03/07/2018 HISTORY: intubated and PNA COMPARISON: 03/06/2018 FINDINGS: Endotracheal tube terminates 5.5 cm proximal to the mandie. The left IJV line terminates in the brachiocephalic vein. The right PICC line terminates in the SVC. Nasogastric tube terminates in the stomach. LUNGS: The lungs are hyperinflated and there is peribronchial thickening with chronic changes in both lungs. There is redemonstration of consolidation in the left lower lobe, worse since the prior examination. There is also moderate pulmonary venous congestion. PLEURA: Persistent right lateral pleural thickening. Suspect bilateral effusions. No pneumothorax. CARDIOVASCULAR: The heart is normal in size. No aortic atherosclerotic calcification present. OSSEOUS STRUCTURES: Within normal limits for the patient's age. VISUALIZED UPPER ABDOMEN: Normal. OTHER FINDINGS: None. IMPRESSION: 1. Worsening left lower lobe consolidation. 2. Stable position of support lines and tubes.
--- NOTE | 2018-03-07 10:08 | RAD ---
Date of service: 03/06/2018 HISTORY: sob COMPARISON: 03/06/2018 FINDINGS: Endotracheal tube terminates in the mid trachea. The left IJV line terminates in the brachiocephalic vein. The right PICC line terminates in the SVC. The nasogastric tube terminates in the stomach. LUNGS: The lungs are hyperinflated and there is peribronchial thickening with chronic changes in both lungs. There is redemonstration of consolidation in the left lower lobe. There is a background of interstitial thickening. PLEURA: Persistent small effusions. Again seen is right lateral pleural thickening. No pneumothorax. CARDIOVASCULAR: The heart is normal in size. No aortic atherosclerotic calcification present. OSSEOUS STRUCTURES: Stable. VISUALIZED UPPER ABDOMEN: Normal. OTHER FINDINGS: None. IMPRESSION: Redemonstration of left lower lobe consolidation and small effusions. Background of COPD and interstitial fibrosis. Stable position of support lines and tubes.
--- NOTE | 2018-03-07 11:03 | CP.PCM.PN ---
Subjective - Date & Time of Evaluation Date of Evaluation: 03/07/18 Time of Evaluation: 11:01 - Subjective Subjective: pt is seen and examined, follow up consult is dictated #[id number] Objective - Vital Signs/Intake and Output Vital Signs (last 24 hours): Temp Pulse Resp BP Pulse Ox 101.4 F H 106 H 26 H 102/64 100 03/07/18 05:34 03/07/18 06:00 03/07/18 06:00 03/07/18 05:58 03/07/18 06:00 Intake and Output: 03/07/18 03/07/18 06:59 18:59 Intake Total 4191.8 278 Output Total 2550 Balance 1641.8 278 - Medications Medications: Current Medications Acetaminophen (Tylenol 650mg/20.3ml Solution Ud) 650 mg NG Q6 PRN PRN Reason: Fever >100.4 F Last Admin: 03/07/18 05:29 Dose: 650 mg Albumin Human (Albumin Human 25% (12.5 Gm/50 Ml)) 25 gm IV Q8 VELMA Stop: 03/08/18 11:01 Albuterol/Ipratropium (Duoneb 3 Mg/0.5 Mg (3 Ml) Ud) 3 ml INH RQ6 VELMA Last Admin: 03/07/18 07:30 Dose: 3 ml Enoxaparin Sodium (Lovenox) 30 mg SC DAILY VELMA Guaifenesin (Robitussin) 100 mg PO BID VELMA Dexmedetomidine HCl 200 mcg/ (Sodium Chloride) 50 mls @ 2.77 mls/hr IV TITR PRN; Protocol PRN Reason: Agitation Last Admin: 03/07/18 09:52 Dose: 0.9 mcg/kg/hr, 12.48 mls/hr Micafungin Sodium 100 mg/ (Sodium Chloride) 100 mls @ 100 mls/hr IV Q24H VELMA; Protocol Last Admin: 03/07/18 00:32 Dose: 100 mls/hr Meropenem 500 mg/ Sodium (Chloride) 100 mls @ 100 mls/hr IVPB Q8H VELMA; Protocol Last Admin: 03/07/18 09:52 Dose: 100 mls/hr Metronidazole (Flagyl) 500 mg in 100 mls @ 100 mls/hr IVPB Q12H VELMA; Protocol Last Admin: 03/07/18 00:33 Dose: 100 mls/hr Desmopressin Acetate 2 mcg/ (Sodium Chloride) 50.5 mls @ 100 mls/hr IV Q12 VELMA Last Admin: 03/05/18 21:26 Dose: 100 mls/hr Sodium Chloride (Sodium Chloride 0.9%) 1,000 mls @ 0 mls/hr IV .Q0M VELMA Last Admin: 03/06/18 07:00 Dose: 175 mls/hr Phenylephrine HCl 30 mg/ (Sodium Chloride) 253 mls @ 10.12 mls/hr IV .Q24H PRN; Protocol PRN Reason: TITRATE PER MD ORDER Last Titration: 03/07/18 10:00 Dose: 60 mcg/min, 30.36 mls/hr Vancomycin HCl 1,000 mg/ (Sodium Chloride) 250 mls @ 166.6 mls/hr IVPB Q12H VELMA; Protocol Last Admin: 03/07/18 03:07 Dose: 166.6 mls/hr Norepinephrine Bitartrate 4 mg (/ Dextrose) 254 mls @ 15.24 mls/hr IV .[id number] PRN; Protocol PRN Reason: TITRATE PER MD ORDER Last Titration: 03/07/18 07:15 Dose: 3 mcg/min, 11.43 mls/hr Magnesium Sulfate/Dextrose (Magnesium Sulfate 1 Gm/100 Ml D5w) 1 gm in 100 mls @ 300 mls/hr IVPB Q30M [facility] Stop: 03/07/18 11:49 Pantoprazole Sodium (Protonix Susp) 40 mg PO 0600 VELMA - Labs Labs: 03/07/18 06:21 03/07/18 06:21
[2018-03-07] MEDS: Magnesium Sulfate 1 gm in D5W 1 GM/100 ML BAG IVPB SCH ×2 (11:19→11:58)
[2018-03-07] MEDS: Enoxaparin 30 mg Syringe SC SCH (11:19)
[2018-03-07] MEDS: guaiFENesin 100 mg/5 ml Syrup UD PO SCH ×2 (11:19→17:58)
--- NOTE | 2018-03-07 12:59 | CP.CCUPN ---
<Merry Farias - Last Filed: 03/07/18 14:43> CCU Subjective - Physician Review Subjective (Free Text): Critical Care Progress Note for Dr. Dominguez's service Patient seen and examined at bedside. 12 point ROS limited 2/2 patient clinical condition. Critical Care Time Spent (in minutes): 35 CCU Objective - Vital Signs / Intake & Output Vital Signs (Last 4 hours): Vital Signs Pulse Resp BP Pulse Ox 03/07/18 11:00 93 H 23 100 03/07/18 10:45 92 H 20 100 03/07/18 10:38 91 H 20 110/71 100 03/07/18 10:30 95 H 22 100 03/07/18 10:15 94 H 23 100 03/07/18 10:08 96 H 23 112/66 03/07/18 10:00 96 H 25 H 100 03/07/18 09:45 93 H 20 100 03/07/18 09:38 94 H 21 117/81 03/07/18 09:30 93 H 20 100 03/07/18 09:15 98 H 25 H 100 03/07/18 09:09 97 H 24 100/64 100 03/07/18 09:00 93 H 20 100 Intake and Output (Last 8hrs): Intake & Output 03/06/18 03/07/18 03/07/18 22:59 06:59 14:59 Intake Total 3901.6 2757.7 1151.2 Output Total 1755 1675 495 Balance 2146.6 1082.7 656.2 Weight 129 lb 6 oz Intake: IV 810 780 298 Intake, IV Amount 2721.6 1607.7 613.2 Left Forearm 0 Left Medial Port Internal 1792.5 700 Jugular Proximal port IJ 283 180.1 75.0 Right Forearm 77.6 77.6 58.2 Right PICC 568.5 650 480 Oral 130 Tube Feeding 240 320 240 Other 50 Output: Urine 1755 1675 495 Urethral (Simmons) 1755 1675 495 Other: # Bowel Movements 0 0 0 - Physical Exam Physical Exam Limitations: Positive for: Clinical Condition Head: Positive for: Atraumatic, Normocephalic Pupils: Positive for: PERRL Extroacular Muscles: Positive for: EOMI Conjunctiva: Positive for: Normal Ears: Positive for: Normal Mouth: Positive for: Dry, Other (ORAL ETT) Neck: Negative for: JVD Respiratory/Chest: Positive for: Good Air Exchange, Rhonchi. Negative for: Respiratory Distress Cardiovascular: Positive for: Normal S1, S2. Negative for: Murmurs, Irregular Rhythm, Tachycardic, Bradycardic Abdomen: Positive for: Normal Bowel Sounds. Negative for: Tenderness, Distention, Peritoneal Signs Upper Extremity: Positive for: Normal Inspection. Negative for: Cyanosis, Edema Lower Extremity: Positive for: Normal Inspection. Negative for: Edema Skin: Positive for: Dry, Normal Color. Negative for: Erythematous - Medications Active Medications: Active Medications Generic Name Dose Route Start Last Admin Trade Name Freq PRN Reason Stop Dose Admin Acetaminophen 650 mg 03/01/18 21:09 03/07/18 05:29 Tylenol 650mg/20.3ml Solution Ud NG 650 mg Q6 PRN Administration Fever >100.4 F Albumin Human 25 gm 03/07/18 11:00 03/07/18 11:56 Albumin Human 25% (12.5 Gm/50 Ml) IV 03/08/18 11:01 25 gm Q8 VELMA Administration Albuterol/Ipratropium 3 ml 03/02/18 14:00 03/07/18 07:30 Duoneb 3 Mg/0.5 Mg (3 Ml) Ud INH 3 ml RQ6 VELMA Administration Enoxaparin Sodium 30 mg 03/07/18 11:00 03/07/18 11:19 Lovenox SC 30 mg DAILY VELMA Administration Guaifenesin 100 mg 03/07/18 10:30 03/07/18 11:19 Robitussin PO 100 mg BID VELMA Administration Dexmedetomidine HCl 200 mcg/ 50 mls @ 2.77 mls/hr 03/03/18 07:40 03/07/18 09:52 Sodium Chloride IV 0.9 mcg/kg/hr TITR PRN 12.48 mls/hr Agitation Administration Protocol 0.2 MCG/KG/HR Micafungin Sodium 100 mg/ 100 mls @ 100 mls/hr 03/04/18 01:00 03/07/18 00:32 Sodium Chloride IV 100 mls/hr Q24H VELMA Administration Protocol Meropenem 500 mg/ Sodium 100 mls @ 100 mls/hr 03/04/18 01:15 03/07/18 09:52 Chloride IVPB 100 mls/hr Q8H VELMA Administration Protocol Desmopressin Acetate 2 mcg/ 50.5 mls @ 100 mls/hr 03/05/18 10:00 03/05/18 21:26 Sodium Chloride IV 100 mls/hr Q12 VELMA Administration Phenylephrine HCl 30 mg/ 253 mls @ 10.12 mls/hr 03/05/18 17:42 03/07/18 11:00 Sodium Chloride IV 40 mcg/min .Q24H PRN 20.24 mls/hr TITRATE PER MD ORDER Titration Protocol 20 MCG/MIN Vancomycin HCl 1,000 mg/ 250 mls @ 166.6 mls/hr 03/06/18 04:00 03/07/18 03:07 Sodium Chloride IVPB 166.6 mls/hr Q12H VELMA Administration Protocol Norepinephrine Bitartrate 4 mg 254 mls @ 15.24 mls/hr 03/06/18 17:55 03/07/18 07:15 / Dextrose IV 3 mcg/min .[id number] PRN 11.43 mls/hr TITRATE PER MD ORDER Titration Protocol 4 MCG/MIN Pantoprazole Sodium 40 mg 03/08/18 06:00 Protonix Susp PO 0600 VELMA - Patient Studies Lab Studies: Microbiology Studies 03/04/18 05:50 Blood Culture - Preliminary Blood-Thru Central Line NO GROWTH AFTER 3 DAYS 03/04/18 05:50 Blood Culture - Preliminary Blood-Thru Central Line NO GROWTH AFTER 3 DAYS 03/01/18 19:09 Blood Culture - Final Blood NO GROWTH AFTER 5 DAYS Gram Stain - Final TEST NOT PERFORMED 03/01/18 19:09 Blood Culture - Final Blood NO GROWTH AFTER 5 DAYS Gram Stain - Final TEST NOT PERFORMED Lab Studies 03/07/18 03/07/18 03/07/18 Range/Units 06:21 06:21 06:21 WBC 15.5 H (4.8-10.8) K/uL RBC 3.25 L (4.40-5.90) Mil/uL Hgb 9.5 L (12.0-18.0) g/dL Hct 29.1 L (35.0-51.0) % MCV 89.4 (80.0-94.0) fL MCH 29.3 (27.0-31.0) pg MCHC 32.7 L (33.0-37.0) g/dL RDW 15.0 H (11.5-14.5) % Plt Count 300 (130-400) K/uL MPV 8.5 (7.2-11.7) fL Neut % (Auto) 85.9 H (50.0-75.0) % Lymph % (Auto) 7.2 L (20.0-40.0) % [place] % (Auto) 5.8 (0.0-10.0) % Eos % (Auto) 0.6 (0.0-4.0) % Baso % (Auto) 0.5 (0.0-2.0) % Neut # (Auto) 13.4 H (1.8-7.0) K/uL Lymph # (Auto) 1.1 (1.0-4.3) K/uL [place] # (Auto) 0.9 H (0.0-0.8) K/uL Eos # (Auto) 0.1 (0.0-0.7) K/uL Baso # (Auto) 0.1 (0.0-0.2) K/uL Neutrophils % (Manual) 86 H (50-75) % Lymphocytes % (Manual) 11 L (20-40) % Monocytes % (Manual) 3 (0-10) % Platelet Estimate Normal (NORMAL) Large Platelets Present Hypochromasia (manual) Slight Poikilocytosis (manual Slight Anisocytosis (manual) Slight Target Cells Slight Puncture Site pCO2 (35-45) mm/Hg pO2 (80-100) mm/Hg HCO3 (21-28) mmol/L ABG pH (7.35-7.45) ABG Total CO2 (22-28) mmol/L ABG O2 Saturation (95-98) % ABG Base Excess (-2.0-3.0) mmol/L ABG Hemoglobin (11.7-17.4) g/dL ABG Carboxyhemoglobin (0.5-1.5) % POC ABG HHb (Measured) (0.0-5.0) % ABG Methemoglobin (0.0-3.0) % [place] Test A-a O2 Difference mm/Hg Respiratory Index Hgb O2 Saturation (95.0-98.0) % Vent Mode Mechanical Rate FiO2 % Tidal Volume PEEP Sodium 133 (132-148) mmol/L Potassium 3.2 L (3.6-5.2) mmol/L Chloride 99 (98-107) mmol/L Carbon Dioxide 26 (22-30) mmol/L Anion Gap 12 (10-20) BUN 7 L (9-20) mg/dL Creatinine 0.3 L (0.8-1.5) mg/dL Est GFR ( Amer) > 60 Est GFR (Non-Af Amer) > 60 POC Glucose (mg/dL) (65-110) mg/dL Random Glucose 129 H (75-110) mg/dL Calcium 6.6 L (8.6-10.4) mg/dl Phosphorus 2.7 (2.5-4.5) mg/dL Magnesium 1.7 (1.6-2.3) mg/dL Total Bilirubin 0.7 (0.2-1.3) mg/dL AST 22 (17-59) U/L ALT 12 L (21-72) U/L Alkaline Phosphatase 120 (38-126) U/L Total Protein 6.7 (6.3-8.3) g/dL Albumin 3.1 L D (3.5-5.0) g/dL Globulin 3.5 (2.2-3.9) gm/dL Albumin/Globulin Ratio 0.9 L (1.0-2.1) Thyroxine (T4) 4.99 L (5.5-11.0) ug/dL Total T3 1.09 L (1.49-2.60) nmol/L TSH 3rd Generation 0.72 (0.46-4.68) mIU/L Cortisol AM Sample 12.2 (4.46-22.7) ug/dL 03/07/18 03/06/18 03/06/18 Range/Units 05:15 17:07 16:20 WBC (4.8-10.8) K/uL RBC (4.40-5.90) Mil/uL Hgb (12.0-18.0) g/dL Hct (35.0-51.0) % MCV (80.0-94.0) fL MCH (27.0-31.0) pg MCHC (33.0-37.0) g/dL RDW (11.5-14.5) % Plt Count (130-400) K/uL MPV (7.2-11.7) fL Neut % (Auto) (50.0-75.0) % Lymph % (Auto) (20.0-40.0) % [place] % (Auto) (0.0-10.0) % Eos % (Auto) (0.0-4.0) % Baso % (Auto) (0.0-2.0) % Neut # (Auto) (1.8-7.0) K/uL Lymph # (Auto) (1.0-4.3) K/uL [place] # (Auto) (0.0-0.8) K/uL Eos # (Auto) (0.0-0.7) K/uL Baso # (Auto) (0.0-0.2) K/uL Neutrophils % (Manual) (50-75) % Lymphocytes % (Manual) (20-40) % Monocytes % (Manual) (0-10) % Platelet Estimate (NORMAL) Large Platelets Hypochromasia (manual) Poikilocytosis (manual Anisocytosis (manual) Target Cells Puncture Site L bra pCO2 40 (35-45) mm/Hg pO2 105 H (80-100) mm/Hg HCO3 25.5 (21-28) mmol/L ABG pH 7.41 (7.35-7.45) ABG Total CO2 26.6 (22-28) mmol/L ABG O2 Saturation 105.5 H (95-98) % ABG Base Excess 0.7 (-2.0-3.0) mmol/L ABG Hemoglobin 12.0 (11.7-17.4) g/dL ABG Carboxyhemoglobin 6.0 H (0.5-1.5) % POC ABG HHb (Measured) -5.1 L (0.0-5.0) % ABG Methemoglobin 1.2 (0.0-3.0) % [place] Test Na A-a O2 Difference 202.0 mm/Hg Respiratory Index 1.9 Hgb O2 Saturation 97.9 (95.0-98.0) % Vent Mode Prvc Mechanical Rate 20 FiO2 50.0 % Tidal Volume 450 PEEP 5 Sodium 129 L (132-148) mmol/L Potassium 3.0 L (3.6-5.2) mmol/L Chloride 92 L (98-107) mmol/L Carbon Dioxide 31 H (22-30) mmol/L Anion Gap 9 L (10-20) BUN 7 L (9-20) mg/dL Creatinine 0.3 L (0.8-1.5) mg/dL Est GFR ( Amer) > 60 Est GFR (Non-Af Amer) > 60 POC Glucose (mg/dL) 109 (65-110) mg/dL Random Glucose 109 (75-110) mg/dL Calcium 6.5 L (8.6-10.4) mg/dl Phosphorus 3.4 (2.5-4.5) mg/dL Magnesium 1.3 L (1.6-2.3) mg/dL Total Bilirubin 0.6 (0.2-1.3) mg/dL AST 22 (17-59) U/L ALT 12 L D (21-72) U/L Alkaline Phosphatase 135 H (38-126) U/L Total Protein 6.1 L (6.3-8.3) g/dL Albumin 2.3 L (3.5-5.0) g/dL Globulin 3.8 (2.2-3.9) gm/dL Albumin/Globulin Ratio 0.6 L (1.0-2.1) Thyroxine (T4) (5.5-11.0) ug/dL Total T3 (1.49-2.60) nmol/L TSH 3rd Generation (0.46-4.68) mIU/L Cortisol AM Sample (4.46-22.7) ug/dL Laboratory Results - last 24 hr 03/06/18 03/06/18 03/07/18 16:20 17:07 05:15 WBC RBC Hgb Hct MCV MCH MCHC RDW Plt Count MPV Neut % (Auto) Lymph % (Auto) [place] % (Auto) Eos % (Auto) Baso % (Auto) Neut # (Auto) Lymph # (Auto) [place] # (Auto) Eos # (Auto) Baso # (Auto) Neutrophils % (Manual) Lymphocytes % (Manual) Monocytes % (Manual) Platelet Estimate Large Platelets Hypochromasia (manual) Poikilocytosis (manual Anisocytosis (manual) Target Cells Puncture Site L bra pCO2 40 pO2 105 H HCO3 25.5 ABG pH 7.41 ABG Total CO2 26.6 ABG O2 Saturation 105.5 H ABG Base Excess 0.7 ABG Hemoglobin 12.0 ABG Carboxyhemoglobin 6.0 H POC ABG HHb (Measured) -5.1 L ABG Methemoglobin 1.2 [place] Test Na A-a O2 Difference 202.0 Respiratory Index 1.9 Hgb O2 Saturation 97.9 Vent Mode Prvc Mechanical Rate 20 FiO2 50.0 Tidal Volume 450 PEEP 5 Sodium 129 L Potassium 3.0 L Chloride 92 L Carbon Dioxide 31 H Anion Gap 9 L BUN 7 L Creatinine 0.3 L Est GFR ( Amer) > 60 Est GFR (Non-Af Amer) > 60 POC Glucose (mg/dL) 109 Random Glucose 109 Calcium 6.5 L Phosphorus 3.4 Magnesium 1.3 L Total Bilirubin 0.6 AST 22 ALT 12 L D Alkaline Phosphatase 135 H Total Protein 6.1 L Albumin 2.3 L Globulin 3.8 Albumin/Globulin Ratio 0.6 L Thyroxine (T4) Total T3 TSH 3rd Generation Cortisol AM Sample 03/07/18 03/07/18 03/07/18 06:21 06:21 06:21 WBC 15.5 H RBC 3.25 L Hgb 9.5 L Hct 29.1 L MCV 89.4 MCH 29.3 MCHC 32.7 L RDW 15.0 H Plt Count 300 MPV 8.5 Neut % (Auto) 85.9 H Lymph % (Auto) 7.2 L [place] % (Auto) 5.8 Eos % (Auto) 0.6 Baso % (Auto) 0.5 Neut # (Auto) 13.4 H Lymph # (Auto) 1.1 [place] # (Auto) 0.9 H Eos # (Auto) 0.1 Baso # (Auto) 0.1 Neutrophils % (Manual) 86 H Lymphocytes % (Manual) 11 L Monocytes % (Manual) 3 Platelet Estimate Normal Large Platelets Present Hypochromasia (manual) Slight Poikilocytosis (manual Slight Anisocytosis (manual) Slight Target Cells Slight Puncture Site pCO2 pO2 HCO3 ABG pH ABG Total CO2 ABG O2 Saturation ABG Base Excess ABG Hemoglobin ABG Carboxyhemoglobin POC ABG HHb (Measured) ABG Methemoglobin [place] Test A-a O2 Difference Respiratory Index Hgb O2 Saturation Vent Mode Mechanical Rate FiO2 Tidal Volume PEEP Sodium 133 Potassium 3.2 L Chloride 99 Carbon Dioxide 26 Anion Gap 12 BUN 7 L Creatinine 0.3 L Est GFR ( Amer) > 60 Est GFR (Non-Af Amer) > 60 POC Glucose (mg/dL) Random Glucose 129 H Calcium 6.6 L Phosphorus 2.7 Magnesium 1.7 Total Bilirubin 0.7 AST 22 ALT 12 L Alkaline Phosphatase 120 Total Protein 6.7 Albumin 3.1 L D Globulin 3.5 Albumin/Globulin Ratio 0.9 L Thyroxine (T4) 4.99 L Total T3 1.09 L TSH 3rd Generation 0.72 Cortisol AM Sample 12.2 Radiology Impressions: Radiology Impressions Chest X-Ray 03/06/18 07:00 IMPRESSION: Endotracheal tube terminates approximately 2 cm above the mandie. Nasogastric tube extends expected location of the stomach. Left-sided central venous catheter extends to the brachiocephalic vein near the SVC junction. Cardiomegaly. Little interval change in multifocal airspace disease in the right lower lobe and in the left lung. Background of interstitial pulmonary disease. Chest X-Ray 03/06/18 21:48 IMPRESSION: Redemonstration of left lower lobe consolidation and small effusions. Background of COPD and interstitial fibrosis. Stable position of support lines and tubes. Chest X-Ray 03/07/18 07:00 IMPRESSION: 1. Worsening left lower lobe consolidation. 2. Stable position of support lines and tubes. Review of Systems - Review of Systems Systems not reviewed;Unavailable: Intubated Critical Care Progress Note - Ventilator Checklist Head of Bed 30 Degrees: Yes Daily Sedation Vacation: Yes Daily Assessment of Readiness to Wean: Yes Daily Spontaneous Breathing Trial: Yes PUD Prophalyxis: Yes DVT Prophylaxis: Yes Oral Care with Chlorhexidine Gluconate {CHG}: Yes - Vent Settings MODE:: PRVC TIDAL VOLUME:: 450 RESP RATE:: 20 FIO2:: 50 PEEP:: 5 - Extremities/Vascular Does the Patient have a Central Venous Catheter?: Yes Insertion Site: Internal Jugular Vein Does the Patient need a Central Venous Catheter?: Yes Does the Patient have a Simmons Catheter?: Yes Does the Patient need a Simmons Catheter?: Yes Catheter Insertion Criteria: Need for accurate measurement of output in critically ill patient - Restraints Justification for Restraints: High risk for self extubation, High risk for removing IV access - Prophylaxis GI Prophylaxis GI: PPI - Prophylaxis DVT Prophylaxis DVT: Lovenox Assessment/Plan - Assessment and Plan (Free Text) Assessment: 72yo M. PMHx COPD, Alzheimer's, CHF, arthritis. recent hospitalizaion for cholelithiasis and pneumonia. Discharged home receiving IV abx. presents back with worsening pneumonia, and progression into septic shock. Intubated in field at home. 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 As per Renal increased diuresis due to continuous fluid infusion; DO NOT REPLETE urine output with NS fluids; Can use boluses of 250 or 500 if necessary; Albumin IVPB of 4 total doses continued; Hypokalemia repleted with KCL 20 meq Endo: No acute issues GI: NPO, tube feedings (pulmocare) ID: Septic shock 2/2 PNA; Vanc/Meropenem/Micafungin; WBC trending down DVT ppx - Lovenox 30mg sc qd GI ppx - Protonix suspension 40mg Tylenol solution prn for fever Simmons for strict I/O's during acute illness PGY-1 Merry Farias Case d/w Dr. Dominguez <Emiliano Dominguez - Last Filed: 03/07/18 17:25> CCU Objective - Vital Signs / Intake & Output Intake and Output (Last 8hrs): Intake & Output 03/07/18 03/07/18 03/07/18 06:59 14:59 22:59 Intake Total 2757.7 1361.9 Output Total 1675 565 Balance 1082.7 796.9 Weight 129 lb 6 oz Intake: IV 780 361 Intake, IV Amount 1607.7 720.9 Left Medial Port Internal 700 Jugular Proximal port IJ 180.1 93.0 Right Forearm 77.6 67.9 Right PICC 650 560 Tube Feeding 320 280 Other 50 Output: Urine 1675 565 Urethral (Simmons) 1675 565 Other: # Bowel Movements 0 0 - Medications Active Medications: Active Medications Generic Name Dose Route Start Last Admin Trade Name Freq PRN Reason Stop Dose Admin Acetaminophen 650 mg 03/01/18 21:09 03/07/18 05:29 Tylenol 650mg/20.3ml Solution Ud NG 650 mg Q6 PRN Administration Fever >100.4 F Albumin Human 25 gm 03/07/18 11:00 03/07/18 11:56 Albumin Human 25% (12.5 Gm/50 Ml) IV 03/08/18 11:01 25 gm Q8 VELMA Administration Albuterol/Ipratropium 3 ml 03/02/18 14:00 03/07/18 13:34 Duoneb 3 Mg/0.5 Mg (3 Ml) Ud INH 3 ml RQ6 VELMA Administration Enoxaparin Sodium 30 mg 03/07/18 11:00 03/07/18 11:19 Lovenox SC 30 mg DAILY VELMA Administration Guaifenesin 100 mg 03/07/18 10:30 03/07/18 11:19 Robitussin PO 100 mg BID VELMA Administration Dexmedetomidine HCl 200 mcg/ 50 mls @ 2.77 mls/hr 03/03/18 07:40 03/07/18 09:52 Sodium Chloride IV 0.9 mcg/kg/hr TITR PRN 12.48 mls/hr Agitation Administration Protocol 0.2 MCG/KG/HR Micafungin Sodium 100 mg/ 100 mls @ 100 mls/hr 03/04/18 01:00 03/07/18 00:32 Sodium Chloride IV 100 mls/hr Q24H VELMA Administration Protocol Meropenem 500 mg/ Sodium 100 mls @ 100 mls/hr 03/04/18 01:15 03/07/18 09:52 Chloride IVPB 100 mls/hr Q8H VELMA Administration Protocol Desmopressin Acetate 2 mcg/ 50.5 mls @ 100 mls/hr 03/05/18 10:00 03/05/18 21:26 Sodium Chloride IV 100 mls/hr Q12 VELMA Administration Phenylephrine HCl 30 mg/ 253 mls @ 10.12 mls/hr 03/05/18 17:42 03/07/18 12:00 Sodium Chloride IV 30 mcg/min .Q24H PRN 15.18 mls/hr TITRATE PER MD ORDER Titration Protocol 20 MCG/MIN Vancomycin HCl 1,000 mg/ 250 mls @ 166.6 mls/hr 03/06/18 04:00 03/07/18 03:07 Sodium Chloride IVPB 166.6 mls/hr Q12H VELMA Administration Protocol Norepinephrine Bitartrate 4 mg 254 mls @ 15.24 mls/hr 03/06/18 17:55 03/07/18 07:15 / Dextrose IV 3 mcg/min .[id number] PRN 11.43 mls/hr TITRATE PER ORDER Titration Protocol 4 MCG/MIN Pantoprazole Sodium 40 mg 03/08/18 06:00 Protonix Susp PO 0600 [facility] - Patient Studies Lab Studies: Microbiology Studies 03/04/18 05:50 Blood Culture - Preliminary Blood-Thru Central Line NO GROWTH AFTER 3 DAYS 03/04/18 05:50 Blood Culture - Preliminary Blood-Thru Central Line NO GROWTH AFTER 3 DAYS 03/01/18 19:09 Blood Culture - Final Blood NO GROWTH AFTER 5 DAYS Gram Stain - Final TEST NOT PERFORMED 03/01/18 19:09 Blood Culture - Final Blood NO GROWTH AFTER 5 DAYS Gram Stain - Final TEST NOT PERFORMED Lab Studies 03/07/18 03/07/18 03/07/18 Range/Units 06:21 06:21 06:21 WBC 15.5 H (4.8-10.8) K/uL RBC 3.25 L (4.40-5.90) Mil/uL Hgb 9.5 L (12.0-18.0) g/dL Hct 29.1 L (35.0-51.0) % MCV 89.4 (80.0-94.0) fL MCH 29.3 (27.0-31.0) pg MCHC 32.7 L (33.0-37.0) g/dL RDW 15.0 H (11.5-14.5) % Plt Count 300 (130-400) K/uL MPV 8.5 (7.2-11.7) fL Neut % (Auto) 85.9 H (50.0-75.0) % Lymph % (Auto) 7.2 L (20.0-40.0) % [place] % (Auto) 5.8 (0.0-10.0) % Eos % (Auto) 0.6 (0.0-4.0) % Baso % (Auto) 0.5 (0.0-2.0) % Neut # (Auto) 13.4 H (1.8-7.0) K/uL Lymph # (Auto) 1.1 (1.0-4.3) K/uL [place] # (Auto) 0.9 H (0.0-0.8) K/uL Eos # (Auto) 0.1 (0.0-0.7) K/uL Baso # (Auto) 0.1 (0.0-0.2) K/uL Neutrophils % (Manual) 86 H (50-75) % Lymphocytes % (Manual) 11 L (20-40) % Monocytes % (Manual) 3 (0-10) % Platelet Estimate Normal (NORMAL) Large Platelets Present Hypochromasia (manual) Slight Poikilocytosis (manual Slight Anisocytosis (manual) Slight Target Cells Slight Puncture Site pCO2 (35-45) mm/Hg pO2 (80-100) mm/Hg HCO3 (21-28) mmol/L ABG pH (7.35-7.45) ABG Total CO2 (22-28) mmol/L ABG O2 Saturation (95-98) % ABG Base Excess (-2.0-3.0) mmol/L ABG Hemoglobin (11.7-17.4) g/dL ABG Carboxyhemoglobin (0.5-1.5) % POC ABG HHb (Measured) (0.0-5.0) % ABG Methemoglobin (0.0-3.0) % [place] Test A-a O2 Difference mm/Hg Respiratory Index Hgb O2 Saturation (95.0-98.0) % Vent Mode Mechanical Rate FiO2 % Tidal Volume PEEP Sodium 133 (132-148) mmol/L Potassium 3.2 L (3.6-5.2) mmol/L Chloride 99 (98-107) mmol/L Carbon Dioxide 26 (22-30) mmol/L Anion Gap 12 (10-20) BUN 7 L (9-20) mg/dL Creatinine 0.3 L (0.8-1.5) mg/dL Est GFR ( Amer) > 60 Est GFR (Non-Af Amer) > 60 POC Glucose (mg/dL) (65-110) mg/dL Random Glucose 129 H (75-110) mg/dL Calcium 6.6 L (8.6-10.4) mg/dl Phosphorus 2.7 (2.5-4.5) mg/dL Magnesium 1.7 (1.6-2.3) mg/dL Total Bilirubin 0.7 (0.2-1.3) mg/dL AST 22 (17-59) U/L ALT 12 L (21-72) U/L Alkaline Phosphatase 120 (38-126) U/L Total Protein 6.7 (6.3-8.3) g/dL Albumin 3.1 L D (3.5-5.0) g/dL Globulin 3.5 (2.2-3.9) gm/dL Albumin/Globulin Ratio 0.9 L (1.0-2.1) Thyroxine (T4) 4.99 L (5.5-11.0) ug/dL Total T3 1.09 L (1.49-2.60) nmol/L TSH 3rd Generation 0.72 (0.46-4.68) mIU/L Cortisol AM Sample 12.2 (4.46-22.7) ug/dL 03/07/18 03/06/18 Range/Units 05:15 17:07 WBC (4.8-10.8) K/uL RBC (4.40-5.90) Mil/uL Hgb (12.0-18.0) g/dL Hct (35.0-51.0) % MCV (80.0-94.0) fL MCH (27.0-31.0) pg MCHC (33.0-37.0) g/dL RDW (11.5-14.5) % Plt Count (130-400) K/uL MPV (7.2-11.7) fL Neut % (Auto) (50.0-75.0) % Lymph % (Auto) (20.0-40.0) % [place] % (Auto) (0.0-10.0) % Eos % (Auto) (0.0-4.0) % Baso % (Auto) (0.0-2.0) % Neut # (Auto) (1.8-7.0) K/uL Lymph # (Auto) (1.0-4.3) K/uL [place] # (Auto) (0.0-0.8) K/uL Eos # (Auto) (0.0-0.7) K/uL Baso # (Auto) (0.0-0.2) K/uL Neutrophils % (Manual) (50-75) % Lymphocytes % (Manual) (20-40) % Monocytes % (Manual) (0-10) % Platelet Estimate (NORMAL) Large Platelets Hypochromasia (manual) Poikilocytosis (manual Anisocytosis (manual) Target Cells Puncture Site L bra pCO2 40 (35-45) mm/Hg pO2 105 H (80-100) mm/Hg HCO3 25.5 (21-28) mmol/L ABG pH 7.41 (7.35-7.45) ABG Total CO2 26.6 (22-28) mmol/L ABG O2 Saturation 105.5 H (95-98) % ABG Base Excess 0.7 (-2.0-3.0) mmol/L ABG Hemoglobin 12.0 (11.7-17.4) g/dL ABG Carboxyhemoglobin 6.0 H (0.5-1.5) % POC ABG HHb (Measured) -5.1 L (0.0-5.0) % ABG Methemoglobin 1.2 (0.0-3.0) % [place] Test Na A-a O2 Difference 202.0 mm/Hg Respiratory Index 1.9 Hgb O2 Saturation 97.9 (95.0-98.0) % Vent Mode Prvc Mechanical Rate 20 FiO2 50.0 % Tidal Volume 450 PEEP 5 Sodium (132-148) mmol/L Potassium (3.6-5.2) mmol/L Chloride (98-107) mmol/L Carbon Dioxide (22-30) mmol/L Anion Gap (10-20) BUN (9-20) mg/dL Creatinine (0.8-1.5) mg/dL Est GFR ( Amer) Est GFR (Non-Af Amer) POC Glucose (mg/dL) 109 (65-110) mg/dL Random Glucose (75-110) mg/dL Calcium (8.6-10.4) mg/dl Phosphorus (2.5-4.5) mg/dL Magnesium (1.6-2.3) mg/dL Total Bilirubin (0.2-1.3) mg/dL AST (17-59) U/L ALT (21-72) U/L Alkaline Phosphatase (38-126) U/L Total Protein (6.3-8.3) g/dL Albumin (3.5-5.0) g/dL Globulin (2.2-3.9) gm/dL Albumin/Globulin Ratio (1.0-2.1) Thyroxine (T4) (5.5-11.0) ug/dL Total T3 (1.49-2.60) nmol/L TSH 3rd Generation (0.46-4.68) mIU/L Cortisol AM Sample (4.46-22.7) ug/dL Laboratory Results - last 24 hr 03/06/18 03/07/18 03/07/18 17:07 05:15 06:21 WBC 15.5 H RBC 3.25 L Hgb 9.5 L Hct 29.1 L MCV 89.4 MCH 29.3 MCHC 32.7 L RDW 15.0 H Plt Count 300 MPV 8.5 Neut % (Auto) 85.9 H Lymph % (Auto) 7.2 L [place] % (Auto) 5.8 Eos % (Auto) 0.6 Baso % (Auto) 0.5 Neut # (Auto) 13.4 H Lymph # (Auto) 1.1 [place] # (Auto) 0.9 H Eos # (Auto) 0.1 Baso # (Auto) 0.1 Neutrophils % (Manual) 86 H Lymphocytes % (Manual) 11 L Monocytes % (Manual) 3 Platelet Estimate Normal Large Platelets Present Hypochromasia (manual) Slight Poikilocytosis (manual Slight Anisocytosis (manual) Slight Target Cells Slight Puncture Site L bra pCO2 40 pO2 105 H HCO3 25.5 ABG pH 7.41 ABG Total CO2 26.6 ABG O2 Saturation 105.5 H ABG Base Excess 0.7 ABG Hemoglobin 12.0 ABG Carboxyhemoglobin 6.0 H POC ABG HHb (Measured) -5.1 L ABG Methemoglobin 1.2 [place] Test Na A-a O2 Difference 202.0 Respiratory Index 1.9 Hgb O2 Saturation 97.9 Vent Mode Prvc Mechanical Rate 20 FiO2 50.0 Tidal Volume 450 PEEP 5 Sodium Potassium Chloride Carbon Dioxide Anion Gap BUN Creatinine Est GFR ( Amer) Est GFR (Non-Af Amer) POC Glucose (mg/dL) 109 Random Glucose Calcium Phosphorus Magnesium Total Bilirubin AST ALT Alkaline Phosphatase Total Protein Albumin Globulin Albumin/Globulin Ratio Thyroxine (T4) Total T3 TSH 3rd Generation Cortisol AM Sample 03/07/18 03/07/18 06:21 06:21 WBC RBC Hgb Hct MCV MCH MCHC RDW Plt Count MPV Neut % (Auto) Lymph % (Auto) [place] % (Auto) Eos % (Auto) Baso % (Auto) Neut # (Auto) Lymph # (Auto) [place] # (Auto) Eos # (Auto) Baso # (Auto) Neutrophils % (Manual) Lymphocytes % (Manual) Monocytes % (Manual) Platelet Estimate Large Platelets Hypochromasia (manual) Poikilocytosis (manual Anisocytosis (manual) Target Cells Puncture Site pCO2 pO2 HCO3 ABG pH ABG Total CO2 ABG O2 Saturation ABG Base Excess ABG Hemoglobin ABG Carboxyhemoglobin POC ABG HHb (Measured) ABG Methemoglobin [place] Test A-a O2 Difference Respiratory Index Hgb O2 Saturation Vent Mode Mechanical Rate FiO2 Tidal Volume PEEP Sodium 133 Potassium 3.2 L Chloride 99 Carbon Dioxide 26 Anion Gap 12 BUN 7 L Creatinine 0.3 L Est GFR ( Amer) > 60 Est GFR (Non-Af Amer) > 60 POC Glucose (mg/dL) Random Glucose 129 H Calcium 6.6 L Phosphorus 2.7 Magnesium 1.7 Total Bilirubin 0.7 AST 22 ALT 12 L Alkaline Phosphatase 120 Total Protein 6.7 Albumin 3.1 L D Globulin 3.5 Albumin/Globulin Ratio 0.9 L Thyroxine (T4) 4.99 L Total T3 1.09 L TSH 3rd Generation 0.72 Cortisol AM Sample 12.2 Radiology Impressions: Radiology Impressions Chest X-Ray 03/06/18 21:48 IMPRESSION: Redemonstration of left lower lobe consolidation and small effusions. Background of COPD and interstitial fibrosis. Stable position of support lines and tubes. Chest X-Ray 03/07/18 07:00 IMPRESSION: 1. Worsening left lower lobe consolidation. 2. Stable position of support lines and tubes. Attending/Attestation - Attestation I have personally seen and examined this patient.: Yes I have fully participated in the care of the patient.: Yes I have reviewed all pertinent clinical information: Yes Notes (Text): 03/07/18 17:10 I have seen and examined the patient. Medical records, lab studies, and imaging were reviewed by me and a management plan was formulated on multidisciplinary rounds with resident Dr. Farias. I agree with their documented assessment and plan. Septic Shock from severe pneumonia, on two pressors. Titrating pressors down. Patient is having an osmotic diuresis, no further fluid bolusing, allow for auto-diuresis. On multiple antibiotics but not improving. Mortality risk is high. Critical Care Time 35 minutes. Multi-disciplinary rounds were performed with house staff, nursing, speech therapy, respiratory therapy, pharmacy and nutrition with integrated input from the primary team/attending and other consulting services. The documented time is cumulative and includes review of patient data/exams/labs/chart review and examination of the patient on rounds and throughout the day; time is exclusive of any procedures or teaching time.
--- NOTE | 2018-03-07 13:04 | CP.PCM.PN ---
Subjective - Date & Time of Evaluation Date of Evaluation: 03/07/18 Time of Evaluation: 13:04 - Subjective Subjective: FEBRILE , TMAX 101.2 INTUBATED.WEAK OPENS EYES TO NAME. ROS; UNOBTAINABLE. INTUBATED Objective - Vital Signs/Intake and Output Vital Signs (last 24 hours): Temp Pulse Resp BP Pulse Ox 101.4 F H 93 H 23 110/71 100 03/07/18 05:34 03/07/18 11:00 03/07/18 11:00 03/07/18 10:38 03/07/18 11:00 Intake and Output: 03/07/18 03/07/18 06:59 18:59 Intake Total 4191.8 1151.2 Output Total 2550 495 Balance 1641.8 656.2 - Medications Medications: Current Medications Acetaminophen (Tylenol 650mg/20.3ml Solution Ud) 650 mg NG Q6 PRN PRN Reason: Fever >100.4 F Last Admin: 03/07/18 05:29 Dose: 650 mg Albumin Human (Albumin Human 25% (12.5 Gm/50 Ml)) 25 gm IV Q8 VELMA Stop: 03/08/18 11:01 Last Admin: 03/07/18 11:56 Dose: 25 gm Albuterol/Ipratropium (Duoneb 3 Mg/0.5 Mg (3 Ml) Ud) 3 ml INH RQ6 VELMA Last Admin: 03/07/18 07:30 Dose: 3 ml Enoxaparin Sodium (Lovenox) 30 mg SC DAILY VELMA Last Admin: 03/07/18 11:19 Dose: 30 mg Guaifenesin (Robitussin) 100 mg PO BID VELMA Last Admin: 03/07/18 11:19 Dose: 100 mg Dexmedetomidine HCl 200 mcg/ (Sodium Chloride) 50 mls @ 2.77 mls/hr IV TITR PRN; Protocol PRN Reason: Agitation Last Admin: 03/07/18 09:52 Dose: 0.9 mcg/kg/hr, 12.48 mls/hr Micafungin Sodium 100 mg/ (Sodium Chloride) 100 mls @ 100 mls/hr IV Q24H VELMA; Protocol Last Admin: 03/07/18 00:32 Dose: 100 mls/hr Meropenem 500 mg/ Sodium (Chloride) 100 mls @ 100 mls/hr IVPB Q8H VELMA; Protocol Last Admin: 03/07/18 09:52 Dose: 100 mls/hr Desmopressin Acetate 2 mcg/ (Sodium Chloride) 50.5 mls @ 100 mls/hr IV Q12 VELMA Last Admin: 03/05/18 21:26 Dose: 100 mls/hr Phenylephrine HCl 30 mg/ (Sodium Chloride) 253 mls @ 10.12 mls/hr IV .Q24H PRN; Protocol PRN Reason: TITRATE PER MD ORDER Last Titration: 03/07/18 11:00 Dose: 40 mcg/min, 20.24 mls/hr Vancomycin HCl 1,000 mg/ (Sodium Chloride) 250 mls @ 166.6 mls/hr IVPB Q12H VELMA; Protocol Last Admin: 03/07/18 03:07 Dose: 166.6 mls/hr Norepinephrine Bitartrate 4 mg (/ Dextrose) 254 mls @ 15.24 mls/hr IV .[id number] PRN; Protocol PRN Reason: TITRATE PER MD ORDER Last Titration: 03/07/18 07:15 Dose: 3 mcg/min, 11.43 mls/hr Pantoprazole Sodium (Protonix Susp) 40 mg PO 0600 [facility] - Labs Labs: 03/07/18 06:21 03/07/18 06:21 - Constitutional Appears: No Acute Distress, Cachectic, Chronically Ill - Head Exam Head Exam: NORMAL INSPECTION - Eye Exam Eye Exam: PERRL. absent: Scleral icterus - ENT Exam ENT Exam: Mucous Membranes Dry - Neck Exam Neck Exam: Normal Inspection - Respiratory Exam Respiratory Exam: Decreased Breath Sounds, Rhonchi (B/L), NORMAL BREATHING PATTERN - Cardiovascular Exam Cardiovascular Exam: Tachycardia, REGULAR RHYTHM, +S1, +S2 - GI/Abdominal Exam GI & Abdominal Exam: Soft, Normal Bowel Sounds - Extremities Exam Extremities Exam: Normal Capillary Refill. absent: Calf Tenderness, Pedal Edema - Neurological Exam Neurological Exam: Awake - Psychiatric Exam Psychiatric exam: Flat Affect - Skin Skin Exam: Normal Color, Warm Assessment and Plan (1) Sepsis associated hypotension Status: Acute (2) Respiratory failure requiring intubation Status: Acute (3) Altered mental status Status: Acute (4) Pneumonia Status: Acute (5) Abdominal pain Status: Acute (6) Cholelithiases Status: Acute - Assessment and Plan (Free Text) Plan: CONTINUE IV MERREM 500MG IVPB Q8HRLY 03/04/18 INCREASE IV VANCOMYCIN 1GM IVPB Q 12 HRLY (03/05) VANCO TROUGH PRIOR TO 4TH DOSE AND KEEP BETWEEN 10-20MG/DL. MONITOR RENAL FUNCTION CONTINUE IV MYCAFUNGIN 100MG IV PB Q 24 HRLY 03/04/18 DC IV FLAGYL PULMONARY TOILET. K+/MG +SUPPLEMENTED PER FLAGSETTER TEAM. PROGNOSIS GUARDED. CASE DISCUSSED WITH STAFF/PMD.
--- NOTE | 2018-03-07 13:56 | CP.PCM.PN ---
Subjective - Date & Time of Evaluation Date of Evaluation: 03/07/18 Time of Evaluation: 13:55 - Subjective Subjective: Currently patient is intubated on a respirator. Blood pressure is now stable in the range of 354590 systolic. Chest x-ray remains unchanged. Patient had excess urine output of 4.5 L with hypokalemia. IV fluids and electrolytes adjusted. Continue IV antibiotics. Objective - Vital Signs/Intake and Output Vital Signs (last 24 hours): Temp Pulse Resp BP Pulse Ox 99.2 F 93 H 21 97/57 L 100 03/07/18 12:00 03/07/18 13:00 03/07/18 13:00 03/07/18 12:57 03/07/18 13:00 Intake and Output: 03/07/18 03/07/18 11:59 23:59 Intake Total 3473.5 328.4 Output Total 1975 140 Balance 1498.5 188.4 - Medications Medications: Current Medications Acetaminophen (Tylenol 650mg/20.3ml Solution Ud) 650 mg NG Q6 PRN PRN Reason: Fever >100.4 F Last Admin: 03/07/18 05:29 Dose: 650 mg Albumin Human (Albumin Human 25% (12.5 Gm/50 Ml)) 25 gm IV Q8 VELMA Stop: 03/08/18 11:01 Last Admin: 03/07/18 11:56 Dose: 25 gm Albuterol/Ipratropium (Duoneb 3 Mg/0.5 Mg (3 Ml) Ud) 3 ml INH RQ6 VELMA Last Admin: 03/07/18 13:34 Dose: 3 ml Enoxaparin Sodium (Lovenox) 30 mg SC DAILY VELMA Last Admin: 03/07/18 11:19 Dose: 30 mg Guaifenesin (Robitussin) 100 mg PO BID VELMA Last Admin: 03/07/18 11:19 Dose: 100 mg Dexmedetomidine HCl 200 mcg/ (Sodium Chloride) 50 mls @ 2.77 mls/hr IV TITR PRN; Protocol PRN Reason: Agitation Last Admin: 03/07/18 09:52 Dose: 0.9 mcg/kg/hr, 12.48 mls/hr Micafungin Sodium 100 mg/ (Sodium Chloride) 100 mls @ 100 mls/hr IV Q24H VELMA; Protocol Last Admin: 03/07/18 00:32 Dose: 100 mls/hr Meropenem 500 mg/ Sodium (Chloride) 100 mls @ 100 mls/hr IVPB Q8H VELMA; Protocol Last Admin: 03/07/18 09:52 Dose: 100 mls/hr Desmopressin Acetate 2 mcg/ (Sodium Chloride) 50.5 mls @ 100 mls/hr IV Q12 VELMA Last Admin: 03/05/18 21:26 Dose: 100 mls/hr Phenylephrine HCl 30 mg/ (Sodium Chloride) 253 mls @ 10.12 mls/hr IV .Q24H PRN; Protocol PRN Reason: TITRATE PER MD ORDER Last Titration: 03/07/18 12:00 Dose: 30 mcg/min, 15.18 mls/hr Vancomycin HCl 1,000 mg/ (Sodium Chloride) 250 mls @ 166.6 mls/hr IVPB Q12H VELMA; Protocol Last Admin: 03/07/18 03:07 Dose: 166.6 mls/hr Norepinephrine Bitartrate 4 mg (/ Dextrose) 254 mls @ 15.24 mls/hr IV .[id number] PRN; Protocol PRN Reason: TITRATE PER MD ORDER Last Titration: 03/07/18 07:15 Dose: 3 mcg/min, 11.43 mls/hr Pantoprazole Sodium (Protonix Susp) 40 mg PO 0600 VELMA - Labs Labs: 03/07/18 06:21 03/07/18 06:21
[2018-03-08] MEDS: Meropenem 500 MG in Sodium Chloride 0.9% 100 ML IVPB SCH ×3 (01:00→16:14)
[2018-03-08] MEDS: Albuterol-Ipratrop 3 mg / 0.5 (3 ml) UD INH SCH ×4 (01:14→19:25)
--- NOTE | 2018-03-08 01:59 | PN ---
DATE: 03/07/2018 FOLLOWUP RENAL CONSULTATION LOCATION: The patient is located in ICU, bed 8. REQUESTED BY: Cornelia Mancera MD REASON FOR FOLLOWUP: Polyuria, electrolyte imbalance and respiratory failure. SUBJECTIVE: Mr. Lawler is a 72-year-old elderly male with a past medical history significant for acute cholecystitis and bronchial pneumonia who was admitted to [facility] on 02/13/2018 and discharged home on 02/28/2018. The patient came back on 03/01/2018 with altered mental status. The patient remains intubated on pressors and also on IV fluids. The patient is awake and following commands appropriately, not in acute distress. PHYSICAL EXAMINATION: GENERAL: Mr. Lawler is a 72-year-old elderly male, on ventilator, not in distress, thin built. VITAL SIGNS: As follows: Blood pressure this morning around 117/81, pulse 93, respirations 20, temperature is 100, T max is 101.4, and saturation 100%. Height 5 feet 7 inches. Weight is 129 pounds. HEENT: Pupils are normal and reactive to light and accommodation. Conjunctivae pink. Sclerae anicteric. On ventilator. No thyroid enlargement. LUNGS: Symmetric on both sides. Decreased breath sounds on the left base. No crackles. CARDIOVASCULAR SYSTEM: [place] in the fifth intercostal space, mid clavicular line. S1 and S2 audible. No murmur or gallop. ABDOMEN: Normal in appearance. Soft, tympanitic. No guarding. No rigidity. No hepatosplenomegaly. CENTRAL NERVOUS SYSTEM: The patient is on ventilator, following commands appropriately. EXTREMITIES: No cyanosis. No clubbing. No edema. MEDICATIONS: Current medications include as follows: Albumin 25 g IV every 8 hours, Precedex, DuoNeb inhaler, Lovenox, meropenem 500 mg daily, micafungin 100 mg daily, norepinephrine, Protonix, Robitussin 100 mg p.o. b.i.d., Tylenol, vancomycin 1 g every 12 hours. INTAKE AND OUTPUT: As of this morning his I's and O's as of 03/06/2018: Intake is 13,035 mL and output is 8750 mL urine output. As of 03/07/2018 I's and O's: Intake is 9162 mL and output is 5125 mL. Last 12 hours: Intake is 3367 mL and output is 2380 mL. LABORATORY DATA: Include as follows: As of 03/07/2018: WBC 15.5, hemoglobin 9.5, hematocrit is 29.1, platelets 300. ABG: The pH of 7.41 ,pCO2 of 40, pO2 of 105, bicarb is 25.5, saturation is 105.5 and vent setting AC 20, tidal volume 450, FiO2 40% and PEEP of 5. Serum sodium is 133, potassium 3.2, chloride 99, CO2 of 26, BUN 7, creatinine 0.3, glucose 129, calcium 6.6, phosphorus 2.7, magnesium 1.7. Total bili 0.2, AST 22, ALT 12, alkaline phosphatase 120, total protein 6.7, albumin is 3.1. Thyroxine is 4.99, total T3 is 1.09, TSH 0.72, and serum cortisol level is 12.2. Sputum cultures as of 03/02/2018 positive for E. coli and yeast. Other laboratory data: Chest x-ray as of 03/07/2018, impression, worsening left lower lobe consolidation, stable position of supportive lines and tubes. ASSESSMENT AND PLAN: In summary, Mr. Lawler is a 72-year-old elderly male with a past medical history significant for dementia, arthritis, congestive heart failure, emphysema, ex-smoker who was admitted initially with fever, altered mental status, and intubated, being treated for possible aspiration pneumonia with polyuria. 1. Polyuria secondary to osmotic diuresis, electrolyte induced secondary to constant infusion of normal saline intravenous fluids made to balance urine output by intensive care unit team. 2. Electrolyte imbalance, hypomagnesemia, hypokalemia, most likely secondary to hypomagnesemia. Continue to supplement magnesium and potassium as needed. Discussed with intensive care unit team and tried now to correct the urine output with infusion of normal saline. If the patient becomes hypotensive, can be given normal saline bolus 250 to 500 if necessary. No need further desmopressin also at this time. Thank you for allowing me to participate in your patient's care. 3. Respiratory failure secondary to left lung pneumonia. Consider bronchoscopy and bronchoalveolar lavage. We will follow with you. Thank you for allowing me to participate in your patient's care. Edwige Sanchez MD [facility] # [id number]
[2018-03-08 04:47] LABS: ARTERIAL BLOOD GAS HCO3 32.1 mmol/L (21-28); ARTERIAL BLOOD GAS HEMOGLOBIN 13.2 g/dL (11.7-17.4); ARTERIAL BLOOD GAS O2 SAT 99.8 % (95-98); ARTERIAL BLOOD GAS PCO2 47 mm/Hg (35-45); ARTERIAL BLOOD GAS PH 7.47 (7.35-7.45); ARTERIAL BLOOD GAS PO2 123 mm/Hg (80-100); ARTERIAL BLOOD GAS TCO2 35.6 mmol/L (22-28)
[2018-03-08] MEDS: Albumin Human 25% (12.5 gm/50 ml) IV SCH (05:30)
[2018-03-08] MEDS: Pantoprazole 40 mg Susp UD PO SCH (05:43)
[2018-03-08 06:28] LABS: BASO # 0.1 K/uL (0.0-0.2); BASO % 0.4 % (0.0-2.0); EOS # 0.3 K/uL (0.0-0.7); EOS % 1.8 % (0.0-4.0); HEMOGLOBIN 9.1 g/dL (12.0-18.0); LYMPH # 1.1 K/uL (1.0-4.3); LYMPH % 8.1 % (20.0-40.0); MEAN CELL VOLUME 88.6 fL (80.0-94.0); MEAN CORPUSCULAR HEMOGLOBIN 29.1 pg (27.0-31.0); MEAN CORPUSCULAR HGB CONC 32.8 g/dL (33.0-37.0); MEAN PLATELET VOLUME 8.3 fL (7.2-11.7); MONO # 0.7 K/uL (0.0-0.8); MONO % 5.2 % (0.0-10.0); NEUT # 11.8 K/uL (1.8-7.0); NEUT % 84.5 % (50.0-75.0); NRBC % 0.1 % (0.0-2.0); PLATELET COUNT 321 K/uL (130-400); RBC 3.11 Mil/uL (4.40-5.90); WHITE BLOOD COUNT 13.9 K/uL (4.8-10.8)
[2018-03-08 06:58] LABS: ALB/GLOB RATIO 0.9 (1.0-2.1); ALBUMIN 3.2 g/dL (3.5-5.0); ALT/SGPT 16 U/L (21-72); AST/SGOT 24 U/L (17-59); BLOOD UREA NITROGEN 6 mg/dL (9-20); CALCIUM 7.3 mg/dl (8.6-10.4); GFR NON-AFRICAN AMERICAN > 60
--- NOTE | 2018-03-08 08:44 | CP.CCUPN ---
CCU Subjective - Physician Review Events Since Last Encounter (Free Text): 03/08/18 08:43 The patient still on ventilator. Unable to wean the patient yet. He is on currently norepinephrine drip. Low-grade fever noted. Vital signs otherwise stable. Mild tachycardia Hypotension noted. Positive balance noted in the intake and output. Also currently receiving tube feedings. On examination: Vital signs tachycardia 110 bpm 100% saturation noted. Blood pressure 108/68 Respirations 17 Chest bilateral wheezing and rales noted regular heart sounds. Abdomen soft. Edema generalized noted. Labs reviewed Mild elevation of the WBC better now. Blood gas analysis pH of 7.47 p.o. 02/15/2023 PCO2 47 noted Chemistry nonspecific renal functions is normal now So for the microbiology positive for E. coli in the sputum Chest x-ray showing diffuse pulmonary fibrotic changes noted slight worsening Assessment and recommendation: Patient is a 72-year-old male with a history of COPD dementia CHF arthritis admitted with acute respiratory failure hypotension and sepsis. Patient is currently on ventilator. Lung fibrotic changes noted. We will try to maintain the negative balance. And possible weaning once tolerated. Continue with the tube feedings. Supportive care. DVT GI prophylaxis. Low-dose corticosteroid. And will follow the patient CCU Objective - Vital Signs / Intake & Output Vital Signs (Last 4 hours): Vital Signs Temp Pulse Resp BP Pulse Ox 03/08/18 07:30 114/67 03/08/18 06:42 108 H 22 125/73 100 03/08/18 06:39 84/55 L 03/08/18 06:03 100 H 26 H 93/56 L 03/08/18 06:00 101 H 21 100 03/08/18 05:34 111 H 20 132/74 100 03/08/18 05:03 99 H 20 106/64 100 03/08/18 05:00 98.9 F 100 Intake and Output (Last 8hrs): Intake & Output 03/07/18 03/08/18 03/08/18 22:59 06:59 14:59 Intake Total 3347.0 3766.0 680.5 Output Total 1530 1000 100 Balance 1817.0 2766.0 580.5 Weight 127 lb 8 oz Intake: IV 138 254 254 Intake, IV Amount 2999.0 3092.0 386.5 Left Medial Port Internal 250 Jugular Proximal port IJ 2693 3048 381 Right Forearm 27.6 Right PICC 5 proximal IJ Y port 23.4 44.0 5.5 Tube Feeding 160 320 40 Other 50 100 0 Output: Urine 1530 1000 100 Urethral (Simmons) 1530 1000 100 - Physical Exam Head: Positive for: Atraumatic, Normocephalic Pupils: Positive for: PERRL Extroacular Muscles: Positive for: EOMI Conjunctiva: Positive for: Normal Ears: Positive for: Normal Mouth: Positive for: Dry, Other (ORAL ETT) Neck: Negative for: JVD Respiratory/Chest: Positive for: Good Air Exchange, Rhonchi. Negative for: Respiratory Distress Cardiovascular: Positive for: Normal S1, S2. Negative for: Murmurs, Irregular Rhythm, Tachycardic, Bradycardic Abdomen: Positive for: Normal Bowel Sounds. Negative for: Tenderness, Distention, Peritoneal Signs Upper Extremity: Positive for: Normal Inspection. Negative for: Cyanosis, Edema Lower Extremity: Positive for: Normal Inspection. Negative for: Edema Skin: Positive for: Dry, Normal Color. Negative for: Erythematous Psychiatric: Positive for: Alert - Medications Active Medications: Active Medications Generic Name Dose Route Start Last Admin Trade Name Freq PRN Reason Stop Dose Admin Acetaminophen 650 mg 03/01/18 21:09 03/07/18 05:29 Tylenol 650mg/20.3ml Solution Ud NG 650 mg Q6 PRN Administration Fever >100.4 F Albumin Human 25 gm 03/07/18 11:00 03/08/18 05:30 Albumin Human 25% (12.5 Gm/50 Ml) IV 03/08/18 11:01 25 gm Q8 VELMA Administration Albuterol/Ipratropium 3 ml 03/02/18 14:00 03/08/18 07:36 Duoneb 3 Mg/0.5 Mg (3 Ml) Ud INH 3 ml RQ6 VELMA Administration Enoxaparin Sodium 30 mg 03/07/18 11:00 03/07/18 11:19 Lovenox SC 30 mg DAILY VELMA Administration Dexmedetomidine HCl 200 mcg/ 50 mls @ 2.77 mls/hr 03/03/18 07:40 03/07/18 19:30 Sodium Chloride IV 0.4 mcg/kg/hr TITR PRN 5.55 mls/hr Agitation Administration Protocol 0.2 MCG/KG/HR Micafungin Sodium 100 mg/ 100 mls @ 100 mls/hr 03/04/18 01:00 03/08/18 00:00 Sodium Chloride IV 100 mls/hr Q24H VELMA Administration Protocol Meropenem 500 mg/ Sodium 100 mls @ 100 mls/hr 03/04/18 01:15 03/08/18 01:00 Chloride IVPB 100 mls/hr Q8H VELMA Administration Protocol Desmopressin Acetate 2 mcg/ 50.5 mls @ 100 mls/hr 03/05/18 10:00 03/05/18 21:26 Sodium Chloride IV 100 mls/hr Q12 VELMA Administration Vancomycin HCl 1,000 mg/ 250 mls @ 166.6 mls/hr 03/06/18 04:00 03/08/18 03:30 Sodium Chloride IVPB 166.6 mls/hr Q12H VELMA Administration Protocol Norepinephrine Bitartrate 4 mg 254 mls @ 15.24 mls/hr 03/06/18 17:55 03/08/18 07:30 / Dextrose IV 10 mcg/min .[id number] PRN 38.1 mls/hr TITRATE PER MD ORDER Administration Protocol 4 MCG/MIN Pantoprazole Sodium 40 mg 03/08/18 06:00 03/08/18 05:43 Protonix Susp PO 40 mg 0600 VELMA Administration - Patient Studies Lab Studies: Microbiology Studies 03/04/18 05:50 Blood Culture - Preliminary Blood-Thru Central Line NO GROWTH AFTER 4 DAYS 03/04/18 05:50 Blood Culture - Preliminary Blood-Thru Central Line NO GROWTH AFTER 4 DAYS Lab Studies 03/08/18 03/08/18 03/08/18 Range/Units 06:21 06:19 04:35 WBC 13.9 H (4.8-10.8) K/uL RBC 3.11 L (4.40-5.90) Mil/uL Hgb 9.1 L (12.0-18.0) g/dL Hct 27.6 L (35.0-51.0) % MCV 88.6 (80.0-94.0) fL MCH 29.1 (27.0-31.0) pg MCHC 32.8 L (33.0-37.0) g/dL RDW 15.0 H (11.5-14.5) % Plt Count 321 (130-400) K/uL MPV 8.3 (7.2-11.7) fL Neut % (Auto) 84.5 H (50.0-75.0) % Lymph % (Auto) 8.1 L (20.0-40.0) % Collin % (Auto) 5.2 (0.0-10.0) % Eos % (Auto) 1.8 (0.0-4.0) % Baso % (Auto) 0.4 (0.0-2.0) % Neut # (Auto) 11.8 H (1.8-7.0) K/uL Lymph # (Auto) 1.1 (1.0-4.3) K/uL Collin # (Auto) 0.7 (0.0-0.8) K/uL Eos # (Auto) 0.3 (0.0-0.7) K/uL Baso # (Auto) 0.1 (0.0-0.2) K/uL Neutrophils % (Manual) (50-75) % Lymphocytes % (Manual) (20-40) % Monocytes % (Manual) (0-10) % Platelet Estimate (NORMAL) Large Platelets Hypochromasia (manual) Poikilocytosis (manual Anisocytosis (manual) Target Cells Puncture Site Lb pCO2 47 H (35-45) mm/Hg pO2 123 H (80-100) mm/Hg HCO3 32.1 H (21-28) mmol/L ABG pH 7.47 H (7.35-7.45) ABG Total CO2 35.6 H (22-28) mmol/L ABG O2 Saturation 99.8 H (95-98) % ABG Base Excess 9.2 H (-2.0-3.0) mmol/L ABG Hemoglobin 13.2 (11.7-17.4) g/dL ABG Carboxyhemoglobin 2.0 H (0.5-1.5) % POC ABG HHb (Measured) 0.2 (0.0-5.0) % ABG Methemoglobin 1.2 (0.0-3.0) % [place] Test Na A-a O2 Difference 175.0 mm/Hg Respiratory Index 1.4 Hgb O2 Saturation 96.6 (95.0-98.0) % Vent Mode Prvc Mechanical Rate 20 FiO2 50.0 % Tidal Volume 450 PEEP 5 Sodium 131 L (132-148) mmol/L Potassium 3.1 L (3.6-5.2) mmol/L Chloride 90 L (98-107) mmol/L Carbon Dioxide 33 H (22-30) mmol/L Anion Gap 11 (10-20) BUN 6 L (9-20) mg/dL Creatinine 0.3 L (0.8-1.5) mg/dL Est GFR ( Amer) > 60 Est GFR (Non-Af Amer) > 60 Random Glucose 119 H (75-110) mg/dL Calcium 7.3 L (8.6-10.4) mg/dl Phosphorus 1.8 L (2.5-4.5) mg/dL Magnesium 1.6 (1.6-2.3) mg/dL Total Bilirubin 0.9 (0.2-1.3) mg/dL AST 24 (17-59) U/L ALT 16 L D (21-72) U/L Alkaline Phosphatase 134 H (38-126) U/L Total Protein 6.6 (6.3-8.3) g/dL Albumin 3.2 L (3.5-5.0) g/dL Globulin 3.4 (2.2-3.9) gm/dL Albumin/Globulin Ratio 0.9 L (1.0-2.1) 03/07/18 Range/Units 06:21 WBC (4.8-10.8) K/uL RBC (4.40-5.90) Mil/uL Hgb (12.0-18.0) g/dL Hct (35.0-51.0) % MCV (80.0-94.0) fL MCH (27.0-31.0) pg MCHC (33.0-37.0) g/dL RDW (11.5-14.5) % Plt Count (130-400) K/uL MPV (7.2-11.7) fL Neut % (Auto) (50.0-75.0) % Lymph % (Auto) (20.0-40.0) % [place]lin % (Auto) (0.0-10.0) % Eos % (Auto) (0.0-4.0) % Baso % (Auto) (0.0-2.0) % Neut # (Auto) (1.8-7.0) K/uL Lymph # (Auto) (1.0-4.3) K/uL [place]lin # (Auto) (0.0-0.8) K/uL Eos # (Auto) (0.0-0.7) K/uL Baso # (Auto) (0.0-0.2) K/uL Neutrophils % (Manual) 86 H (50-75) % Lymphocytes % (Manual) 11 L (20-40) % Monocytes % (Manual) 3 (0-10) % Platelet Estimate Normal (NORMAL) Large Platelets Present Hypochromasia (manual) Slight Poikilocytosis (manual Slight Anisocytosis (manual) Slight Target Cells Slight Puncture Site pCO2 (35-45) mm/Hg pO2 (80-100) mm/Hg HCO3 (21-28) mmol/L ABG pH (7.35-7.45) ABG Total CO2 (22-28) mmol/L ABG O2 Saturation (95-98) % ABG Base Excess (-2.0-3.0) mmol/L ABG Hemoglobin (11.7-17.4) g/dL ABG Carboxyhemoglobin (0.5-1.5) % POC ABG HHb (Measured) (0.0-5.0) % ABG Methemoglobin (0.0-3.0) % [place] Test A-a O2 Difference mm/Hg Respiratory Index Hgb O2 Saturation (95.0-98.0) % Vent Mode Mechanical Rate FiO2 % Tidal Volume PEEP Sodium (132-148) mmol/L Potassium (3.6-5.2) mmol/L Chloride (98-107) mmol/L Carbon Dioxide (22-30) mmol/L Anion Gap (10-20) BUN (9-20) mg/dL Creatinine (0.8-1.5) mg/dL Est GFR ( Amer) Est GFR (Non-Af Amer) Random Glucose (75-110) mg/dL Calcium (8.6-10.4) mg/dl Phosphorus (2.5-4.5) mg/dL Magnesium (1.6-2.3) mg/dL Total Bilirubin (0.2-1.3) mg/dL AST (17-59) U/L ALT (21-72) U/L Alkaline Phosphatase (38-126) U/L Total Protein (6.3-8.3) g/dL Albumin (3.5-5.0) g/dL Globulin (2.2-3.9) gm/dL Albumin/Globulin Ratio (1.0-2.1) Laboratory Results - last 24 hr 03/07/18 03/08/18 03/08/18 06:21 04:35 06:19 WBC RBC Hgb Hct MCV MCH MCHC RDW Plt Count MPV Neut % (Auto) Lymph % (Auto) Collin % (Auto) Eos % (Auto) Baso % (Auto) Neut # (Auto) Lymph # (Auto) Collin # (Auto) Eos # (Auto) Baso # (Auto) Neutrophils % (Manual) 86 H Lymphocytes % (Manual) 11 L Monocytes % (Manual) 3 Platelet Estimate Normal Large Platelets Present Hypochromasia (manual) Slight Poikilocytosis (manual Slight Anisocytosis (manual) Slight Target Cells Slight Puncture Site Lb pCO2 47 H pO2 123 H HCO3 32.1 H ABG pH 7.47 H ABG Total CO2 35.6 H ABG O2 Saturation 99.8 H ABG Base Excess 9.2 H ABG Hemoglobin 13.2 ABG Carboxyhemoglobin 2.0 H POC ABG HHb (Measured) 0.2 ABG Methemoglobin 1.2 [place] Test Na A-a O2 Difference 175.0 Respiratory Index 1.4 Hgb O2 Saturation 96.6 Vent Mode Prvc Mechanical Rate 20 FiO2 50.0 Tidal Volume 450 PEEP 5 Sodium 131 L Potassium 3.1 L Chloride 90 L Carbon Dioxide 33 H Anion Gap 11 BUN 6 L Creatinine 0.3 L Est GFR ( Amer) > 60 Est GFR (Non-Af Amer) > 60 Random Glucose 119 H Calcium 7.3 L Phosphorus 1.8 L Magnesium 1.6 Total Bilirubin 0.9 AST 24 ALT 16 L D Alkaline Phosphatase 134 H Total Protein 6.6 Albumin 3.2 L Globulin 3.4 Albumin/Globulin Ratio 0.9 L 03/08/18 06:21 WBC 13.9 H RBC 3.11 L Hgb 9.1 L Hct 27.6 L MCV 88.6 MCH 29.1 MCHC 32.8 L RDW 15.0 H Plt Count 321 MPV 8.3 Neut % (Auto) 84.5 H Lymph % (Auto) 8.1 L Collin % (Auto) 5.2 Eos % (Auto) 1.8 Baso % (Auto) 0.4 Neut # (Auto) 11.8 H Lymph # (Auto) 1.1 Collin # (Auto) 0.7 Eos # (Auto) 0.3 Baso # (Auto) 0.1 Neutrophils % (Manual) Lymphocytes % (Manual) Monocytes % (Manual) Platelet Estimate Large Platelets Hypochromasia (manual) Poikilocytosis (manual Anisocytosis (manual) Target Cells Puncture Site pCO2 pO2 HCO3 ABG pH ABG Total CO2 ABG O2 Saturation ABG Base Excess ABG Hemoglobin ABG Carboxyhemoglobin POC ABG HHb (Measured) ABG Methemoglobin Bereket Test A-a O2 Difference Respiratory Index Hgb O2 Saturation Vent Mode Mechanical Rate FiO2 Tidal Volume PEEP Sodium Potassium Chloride Carbon Dioxide Anion Gap BUN Creatinine Est GFR ( Amer) Est GFR (Non-Af Amer) Random Glucose Calcium Phosphorus Magnesium Total Bilirubin AST ALT Alkaline Phosphatase Total Protein Albumin Globulin Albumin/Globulin Ratio Radiology Impressions: Radiology Impressions Chest X-Ray 03/06/18 21:48 IMPRESSION: Redemonstration of left lower lobe consolidation and small effusions. Background of COPD and interstitial fibrosis. Stable position of support lines and tubes. Chest X-Ray 03/07/18 07:00 IMPRESSION: 1. Worsening left lower lobe consolidation. 2. Stable position of support lines and tubes.
[2018-03-08] MEDS ORDERED: Potassium Phosphate 15 MMOLE in Dextrose 5% In Water 250 ML IVPB ONE (08:54)
[2018-03-08] MEDS: Enoxaparin 30 mg Syringe SC SCH (10:20)
[2018-03-08] MEDS: MethylPREDNISolone 40 mg Vial IVP SCH (10:21)
[2018-03-08 10:30] LABS: BANDS 4 % (0-2); EOSINOPHIL 1 % (0-4); LYMPHOCYTE 6 % (20-40); MONOCYTE 5 % (0-10); NEUTROPHIL 84 % (50-75); PLATELET ESTIMATE NORMAL (NORMAL); TOTAL CELLS COUNTED 100
[2018-03-08 10:32] LABS: ANISOCYTOSIS SLIGHT; LARGE PLATELETS PRESENT; TOXIC GRANULATION PRESENT
[2018-03-08 10:33] LABS: GIANT PLATELETS PRESENT; HYPOCHROMIC SLIGHT; POLYCHROMIC SLIGHT
--- NOTE | 2018-03-08 10:44 | RAD ---
Date of service: 03/08/2018 HISTORY: intubated COMPARISON: 03/07/2018 FINDINGS: LUNGS: Extensive left-sided diffuse opacity. Lesser opacity at right base, grossly unchanged. No new opacity. PLEURA: No definite pleural effusion. Left costophrenic angle is obscured by infiltrate and cardiac silhouette. No pneumothorax. There is pleural thickening seen along the upper lateral right chest wall. This is unchanged. CARDIOVASCULAR: No aortic atherosclerotic calcification present. Normal cardiac size. No congestive change. ET tube, NG tube and left IJ central venous catheter are unchanged. Right PICC catheter unchanged. OSSEOUS STRUCTURES: Status post ORIF proximal left humerus. VISUALIZED UPPER ABDOMEN: Normal. OTHER FINDINGS: None. IMPRESSION: No significant change. Bilateral infiltrates, left greater than right. Lines and tubes unchanged.
--- NOTE | 2018-03-08 14:13 | CP.PCM.PN ---
Subjective - Date & Time of Evaluation Date of Evaluation: 03/08/18 Time of Evaluation: 14:13 Objective - Vital Signs/Intake and Output Vital Signs (last 24 hours): Temp Pulse Resp BP Pulse Ox 97.7 F 104 H 26 H 101/59 L 100 03/08/18 12:00 03/08/18 12:09 03/08/18 12:09 03/08/18 12:09 03/08/18 12:09 Intake and Output: 03/08/18 03/08/18 06:59 18:59 Intake Total 5551.4 1299.0 Output Total 1630 1175 Balance 3921.4 124.0 - Medications Medications: Current Medications Acetaminophen (Tylenol 650mg/20.3ml Solution Ud) 650 mg NG Q6 PRN PRN Reason: Fever >100.4 F Last Admin: 03/07/18 05:29 Dose: 650 mg Albuterol/Ipratropium (Duoneb 3 Mg/0.5 Mg (3 Ml) Ud) 3 ml INH RQ6 [facility] Last Admin: 03/08/18 13:51 Dose: 3 ml Enoxaparin Sodium (Lovenox) 30 mg SC DAILY [facility] Last Admin: 03/08/18 10:20 Dose: 30 mg Dexmedetomidine HCl 200 mcg/ (Sodium Chloride) 50 mls @ 2.77 mls/hr IV TITR PRN; Protocol PRN Reason: Agitation Last Titration: 03/08/18 08:50 Dose: 0 mcg/kg/hr, 0 mls/hr Micafungin Sodium 100 mg/ (Sodium Chloride) 100 mls @ 100 mls/hr IV Q24H [facility]; Protocol Last Admin: 03/08/18 00:00 Dose: 100 mls/hr Meropenem 500 mg/ Sodium (Chloride) 100 mls @ 100 mls/hr IVPB Q8H [facility]; Protocol Last Admin: 03/08/18 10:15 Dose: 100 mls/hr Vancomycin HCl 1,000 mg/ (Sodium Chloride) 250 mls @ 166.6 mls/hr IVPB Q12H [facility]; Protocol Last Admin: 03/08/18 03:30 Dose: 166.6 mls/hr Norepinephrine Bitartrate 4 mg (/ Dextrose) 254 mls @ 15.24 mls/hr IV .[id number] PRN; Protocol PRN Reason: TITRATE PER MD ORDER Last Admin: 03/08/18 07:30 Dose: 10 mcg/min, 38.1 mls/hr Potassium Phosphate 15 mmole/ (Dextrose) 255 mls @ 42.5 mls/hr IVPB ONCE ONE Stop: 03/08/18 14:53 Last Admin: 03/08/18 10:16 Dose: 42.5 mls/hr Methylprednisolone (Solu-Medrol) 40 mg IVP DAILY [facility] Last Admin: 03/08/18 10:21 Dose: 40 mg Pantoprazole Sodium (Protonix Susp) 40 mg PO 0600 [facility] Last Admin: 03/08/18 05:43 Dose: 40 mg - Labs Labs: 03/08/18 06:21 03/08/18 06:19
--- NOTE | 2018-03-08 14:54 | CP.PCM.PN ---
Subjective - Date & Time of Evaluation Date of Evaluation: 03/08/18 Time of Evaluation: 14:43 - Subjective Subjective: pt. is on vent. Blood pressure is 112 systolic on Levophed Chest x-ray remains same Patient currently is on 4 L of positive balance, nephrology on board. Discussed with the family Objective - Vital Signs/Intake and Output Vital Signs (last 24 hours): Temp Pulse Resp BP Pulse Ox 97.7 F 104 H 26 H 101/59 L 100 03/08/18 12:00 03/08/18 12:09 03/08/18 12:09 03/08/18 12:09 03/08/18 12:09 Intake and Output: 03/08/18 03/08/18 11:59 23:59 Intake Total 4302.0 82.5 Output Total 1855 200 Balance 2447.0 -117.5 - Medications Medications: Current Medications Acetaminophen (Tylenol 650mg/20.3ml Solution Ud) 650 mg NG Q6 PRN PRN Reason: Fever >100.4 F Last Admin: 03/07/18 05:29 Dose: 650 mg Albuterol/Ipratropium (Duoneb 3 Mg/0.5 Mg (3 Ml) Ud) 3 ml INH RQ6 [facility] Last Admin: 03/08/18 13:51 Dose: 3 ml Enoxaparin Sodium (Lovenox) 30 mg SC DAILY [facility] Last Admin: 03/08/18 10:20 Dose: 30 mg Dexmedetomidine HCl 200 mcg/ (Sodium Chloride) 50 mls @ 2.77 mls/hr IV TITR PRN; Protocol PRN Reason: Agitation Last Titration: 03/08/18 08:50 Dose: 0 mcg/kg/hr, 0 mls/hr Micafungin Sodium 100 mg/ (Sodium Chloride) 100 mls @ 100 mls/hr IV Q24H [facility]; Protocol Last Admin: 03/08/18 00:00 Dose: 100 mls/hr Meropenem 500 mg/ Sodium (Chloride) 100 mls @ 100 mls/hr IVPB Q8H [facility]; Protocol Last Admin: 03/08/18 10:15 Dose: 100 mls/hr Vancomycin HCl 1,000 mg/ (Sodium Chloride) 250 mls @ 166.6 mls/hr IVPB Q12H [facility]; Protocol Last Admin: 03/08/18 03:30 Dose: 166.6 mls/hr Norepinephrine Bitartrate 4 mg (/ Dextrose) 254 mls @ 15.24 mls/hr IV .[id number] PRN; Protocol PRN Reason: TITRATE PER MD ORDER Last Admin: 03/08/18 07:30 Dose: 10 mcg/min, 38.1 mls/hr Potassium Phosphate 15 mmole/ (Dextrose) 255 mls @ 42.5 mls/hr IVPB ONCE ONE Stop: 03/08/18 14:53 Last Admin: 03/08/18 10:16 Dose: 42.5 mls/hr Methylprednisolone (Solu-Medrol) 40 mg IVP DAILY [facility] Last Admin: 03/08/18 10:21 Dose: 40 mg Pantoprazole Sodium (Protonix Susp) 40 mg PO 0600 [facility] Last Admin: 03/08/18 05:43 Dose: 40 mg - Labs Labs: 03/08/18 06:21 03/08/18 06:19
--- NOTE | 2018-03-08 15:01 | CP.PCM.PN ---
Subjective - Date & Time of Evaluation Date of Evaluation: 03/08/18 Time of Evaluation: 15:01 - Subjective Subjective: low-grade temperature On ventilator. On vasopressors due to hypotension. Mild tachycardia. ON NGT FEEDS. ROS; NA. LABS ; WBC IMPROVING BLOOD CULTURES 03/04/18 -VE GROWTH TO DATE. Objective - Vital Signs/Intake and Output Vital Signs (last 24 hours): Temp Pulse Resp BP Pulse Ox 97.7 F 103 H 24 121/71 100 03/08/18 12:00 03/08/18 14:47 03/08/18 14:47 03/08/18 14:47 03/08/18 14:47 Intake and Output: 03/08/18 03/08/18 06:59 18:59 Intake Total 5551.4 1772.0 Output Total 1630 1175 Balance 3921.4 597.0 - Medications Medications: Current Medications Acetaminophen (Tylenol 650mg/20.3ml Solution Ud) 650 mg NG Q6 PRN PRN Reason: Fever >100.4 F Last Admin: 03/07/18 05:29 Dose: 650 mg Albuterol/Ipratropium (Duoneb 3 Mg/0.5 Mg (3 Ml) Ud) 3 ml INH RQ6 [facility] Last Admin: 03/08/18 13:51 Dose: 3 ml Enoxaparin Sodium (Lovenox) 30 mg SC DAILY [facility] Last Admin: 03/08/18 10:20 Dose: 30 mg Dexmedetomidine HCl 200 mcg/ (Sodium Chloride) 50 mls @ 2.77 mls/hr IV TITR PRN; Protocol PRN Reason: Agitation Last Titration: 03/08/18 08:50 Dose: 0 mcg/kg/hr, 0 mls/hr Micafungin Sodium 100 mg/ (Sodium Chloride) 100 mls @ 100 mls/hr IV Q24H [facility]; Protocol Last Admin: 03/08/18 00:00 Dose: 100 mls/hr Meropenem 500 mg/ Sodium (Chloride) 100 mls @ 100 mls/hr IVPB Q8H [facility]; Protocol Last Admin: 03/08/18 10:15 Dose: 100 mls/hr Vancomycin HCl 1,000 mg/ (Sodium Chloride) 250 mls @ 166.6 mls/hr IVPB Q12H [facility]; Protocol Last Admin: 03/08/18 03:30 Dose: 166.6 mls/hr Norepinephrine Bitartrate 4 mg (/ Dextrose) 254 mls @ 15.24 mls/hr IV .[id number] PRN; Protocol PRN Reason: TITRATE PER MD ORDER Last Admin: 03/08/18 14:47 Dose: 9 mcg/min, 34.29 mls/hr Methylprednisolone (Solu-Medrol) 40 mg IVP DAILY [facility] Last Admin: 03/08/18 10:21 Dose: 40 mg Pantoprazole Sodium (Protonix Susp) 40 mg PO 0600 [facility] Last Admin: 03/08/18 05:43 Dose: 40 mg - Labs Labs: 03/08/18 06:21 03/08/18 06:19 - Constitutional Appears: No Acute Distress, Confused, Cachectic, Chronically Ill - Head Exam Head Exam: NORMAL INSPECTION - Eye Exam Eye Exam: PERRL - ENT Exam ENT Exam: Mucous Membranes Moist - Respiratory Exam Respiratory Exam: Decreased Breath Sounds, Rhonchi (B/L), NORMAL BREATHING PATTERN - Cardiovascular Exam Cardiovascular Exam: Tachycardia, REGULAR RHYTHM, +S1, +S2 - GI/Abdominal Exam GI & Abdominal Exam: Soft, Normal Bowel Sounds - Extremities Exam Extremities Exam: Normal Capillary Refill. absent: Calf Tenderness, Pedal Edema - Neurological Exam Neurological Exam: Altered (INTUBATED.) - Psychiatric Exam Psychiatric exam: Flat Affect - Skin Skin Exam: Normal Color, Warm Assessment and Plan (1) Sepsis associated hypotension Status: Acute (2) Respiratory failure requiring intubation Status: Acute (3) Altered mental status Status: Acute (4) Pneumonia Status: Acute (5) Abdominal pain Status: Acute (6) Cholelithiases Status: Acute - Assessment and Plan (Free Text) Plan: CONTINUE IV MERREM 500MG IVPB Q8HRLY 03/04/18 CONTINUE IV VANCOMYCIN 1GM IVPB Q 12 HRLY (03/05) VANCO TROUGH PRIOR TO 4TH DOSE AND KEEP BETWEEN 10-20MG/DL. MONITOR RENAL FUNCTION CONTINUE IV MYCAFUNGIN 100MG IV PB Q 24 HRLY 03/04/18. PULMONARY TOILET. PROGNOSIS GUARDED.
--- NOTE | 2018-03-08 16:29 | CP.PCM.PN ---
Subjective - Date & Time of Evaluation Date of Evaluation: 03/08/18 Time of Evaluation: 16:29 - Subjective Subjective: pt is seen and examined, follow up consult is dictated #[id number] Objective - Vital Signs/Intake and Output Vital Signs (last 24 hours): Temp Pulse Resp BP Pulse Ox 97.7 F 105 H 26 H 113/74 100 03/08/18 12:00 03/08/18 16:09 03/08/18 16:09 03/08/18 16:09 03/08/18 16:09 Intake and Output: 03/08/18 03/08/18 06:59 18:59 Intake Total 5551.4 2241.5 Output Total 1630 1900 Balance 3921.4 341.5 - Medications Medications: Current Medications Acetaminophen (Tylenol 650mg/20.3ml Solution Ud) 650 mg NG Q6 PRN PRN Reason: Fever >100.4 F Last Admin: 03/07/18 05:29 Dose: 650 mg Albuterol/Ipratropium (Duoneb 3 Mg/0.5 Mg (3 Ml) Ud) 3 ml INH RQ6 [facility] Last Admin: 03/08/18 13:51 Dose: 3 ml Enoxaparin Sodium (Lovenox) 30 mg SC DAILY [facility] Last Admin: 03/08/18 10:20 Dose: 30 mg Dexmedetomidine HCl 200 mcg/ (Sodium Chloride) 50 mls @ 2.77 mls/hr IV TITR PRN; Protocol PRN Reason: Agitation Last Titration: 03/08/18 08:50 Dose: 0 mcg/kg/hr, 0 mls/hr Micafungin Sodium 100 mg/ (Sodium Chloride) 100 mls @ 100 mls/hr IV Q24H [facility]; Protocol Last Admin: 03/08/18 00:00 Dose: 100 mls/hr Meropenem 500 mg/ Sodium (Chloride) 100 mls @ 100 mls/hr IVPB Q8H [facility]; Protocol Last Admin: 03/08/18 16:14 Dose: 100 mls/hr Vancomycin HCl 1,000 mg/ (Sodium Chloride) 250 mls @ 166.6 mls/hr IVPB Q12H [facility]; Protocol Last Admin: 03/08/18 15:10 Dose: 166.6 mls/hr Norepinephrine Bitartrate 4 mg (/ Dextrose) 254 mls @ 15.24 mls/hr IV .[id number] PRN; Protocol PRN Reason: TITRATE PER MD ORDER Last Admin: 03/08/18 14:47 Dose: 9 mcg/min, 34.29 mls/hr Methylprednisolone (Solu-Medrol) 40 mg IVP DAILY [facility] Last Admin: 03/08/18 10:21 Dose: 40 mg Pantoprazole Sodium (Protonix Susp) 40 mg PO 0600 [facility] Last Admin: 03/08/18 05:43 Dose: 40 mg - Labs Labs: 03/08/18 06:21 03/08/18 06:19
[2018-03-08] MEDS: Micafungin 100 MG in Sodium Chloride 0.9% 100 ML IV SCH ×2 (23:59)
[2018-03-09] MEDS: Meropenem 500 MG in Sodium Chloride 0.9% 100 ML IVPB SCH ×3 (01:07→17:00)
[2018-03-09] MEDS: Dexmedetomidine Hydrochloride 200 MCG in Sodium Chloride 0.9% 48 ML IV PRN ×3 (01:30→21:31)
[2018-03-09] MEDS: Albuterol-Ipratrop 3 mg / 0.5 (3 ml) UD INH SCH ×4 (02:34→19:53)
--- NOTE | 2018-03-09 02:48 | PN ---
DATE: 03/08/2018 FOLLOWUP RENAL CONSULTATION LOCATION: The patient is located in ICU, bed 8. REQUESTED BY: Cornelia Mancera MD REASON FOR FOLLOWUP: Polyuria and electrolyte imbalance. SUBJECTIVE: Mr. Lawler is a 72-year-old elderly male with a history of cholecystitis, bronchial pneumonia, emphysema, ex-smoker who was admitted with altered mental status and respiratory failure, intubated. The patient is awake and following commands appropriately. The patient remains intubated. PHYSICAL EXAMINATION: VITAL SIGNS: As follows: This afternoon, blood pressure 126/71, pulse 101, respirations about 26, saturation 100%. Height 5 feet 7 inches. Weight is 127 pounds. His temperature is 98.6. GENERAL: Mr. Lawler is a 72-year-old elderly male, moderately built, moderately nourished, not in acute distress, on ventilator. HEENT: Pupils are normal and reactive to light and accommodation. Conjunctivae pink. Sclerae anicteric. Tongue is moist. Trachea is midline. LUNGS: Symmetric on both sides. Decreased breath sounds on the left. CARDIOVASCULAR SYSTEM: Good[place] at the fifth intercostal space, midclavicular line. S1 and S2 audible. Tachycardic. ABDOMEN: Soft, tympanitic. No guarding. No rigidity. No hepatosplenomegaly. CENTRAL NERVOUS SYSTEM: The patient is on ventilator, awake, following commands. EXTREMITIES: No cyanosis, no clubbing, no edema. CURRENT MEDICATIONS: Include as follows: Precedex, DuoNeb inhaler, Lovenox, meropenem 500 mg every 8 hours, micafungin 100 mg IV daily, norepinephrine, Protonix, Solu-Medrol 40 mg IV daily, Tylenol, and vancomycin 1 g every 12 hours. INPUT AND OUTPUT: His I's and O's last 24 hours: Intake is 8890 and output is 410. LABORATORY DATA: Include as follows as of 03/08/2018: WBC 13.9, hemoglobin 9.1, hematocrit is 27.6, platelets 321, neutrophils 84, bands 4, lymphs 6, monos 5, . ABG: The pH is 7.47, pCO2 is 47, pO2 is 123, bicarb is 32.1, and saturation 99.8 with vent setting AC 20, tidal volume 450, FiO2 of 50%, PEEP of 5. Sodium 131, potassium 3.1, chloride 92, CO2 of 33, BUN 6, creatinine 0.3, glucose 119, calcium 7.3, phosphorus 1.8, magnesium 1.6. Total bili is 0.9, AST is 24, ALT is 16, alkaline phos is 134, total protein is 6.6, and albumin is 3.2. Blood culture x2 negative as of 03/04/2018, day 4. ASSESSMENT AND PLAN: In summary, Mr. Lawler is a 72-year-old elderly male with a history of emphysema, ex-smoker, acute cholecystitis and bronchial pneumonia who was admitted with altered mental status and respiratory failure, intubated with left lung pneumonia and electrolyte imbalance and polyuria. 1. Polyuria secondary to osmotic diuresis secondary to electrolyte induced. 2. Left lung pneumonia. 3. Hypokalemia, hypophosphatemia, hypomagnesemia. Continue supplement potassium via nasogastric. Continue magnesium and phosphorus as needed. We will follow with you. Thank you for allowing me to participate in your patient's care. We will try not to balance urine output unless the patient is hypotensive. Edwige Sanchez MD MTDD
[2018-03-09] MEDS: Pantoprazole 40 mg Susp UD PO SCH (05:14)
[2018-03-09 05:51] LABS: ARTERIAL BLOOD GAS HCO3 37.2 mmol/L (21-28); ARTERIAL BLOOD GAS HEMOGLOBIN 9.7 g/dL (11.7-17.4); ARTERIAL BLOOD GAS O2 SAT 99.4 % (95-98); ARTERIAL BLOOD GAS PCO2 51 mm/Hg (35-45); ARTERIAL BLOOD GAS PH 7.51 (7.35-7.45); ARTERIAL BLOOD GAS PO2 94 mm/Hg (80-100); ARTERIAL BLOOD GAS TCO2 42.3 mmol/L (22-28)
[2018-03-09 06:21] LABS: BASO # 0.1 K/uL (0.0-0.2); BASO % 0.5 % (0.0-2.0); HEMOGLOBIN 9.6 g/dL (12.0-18.0); LYMPH # 0.4 K/uL (1.0-4.3); LYMPH % 3.3 % (20.0-40.0); MEAN CELL VOLUME 88.5 fL (80.0-94.0); MEAN CORPUSCULAR HEMOGLOBIN 30.1 pg (27.0-31.0); MEAN CORPUSCULAR HGB CONC 33.9 g/dL (33.0-37.0); MEAN PLATELET VOLUME 8.1 fL (7.2-11.7); MONO # 0.5 K/uL (0.0-0.8); MONO % 4.6 % (0.0-10.0); NEUT # 9.8 K/uL (1.8-7.0); NEUT % 91.6 % (50.0-75.0); PLATELET COUNT 402 K/uL (130-400); RBC 3.19 Mil/uL (4.40-5.90); RED CELL DISTRIBUTION WIDTH 14.9 % (11.5-14.5); WHITE BLOOD COUNT 10.7 K/uL (4.8-10.8)
[2018-03-09 06:35] LABS: ALB/GLOB RATIO 0.9 (1.0-2.1); ALBUMIN 3.3 g/dL (3.5-5.0); ALT/SGPT 21 U/L (21-72); AST/SGOT 26 U/L (17-59); BLOOD UREA NITROGEN 10 mg/dL (9-20); CALCIUM 7.6 mg/dl (8.6-10.4); GFR NON-AFRICAN AMERICAN > 60
--- NOTE | 2018-03-09 08:39 | CP.CCUPN ---
CCU Subjective - Physician Review Events Since Last Encounter (Free Text): 03/09/18 08:38 The patient still on ventilator. Unable to wean the patient yet. Patient is still on Levophed, on ventilator. Unable to wean the patient yet. Unstable now at this time. Hypertension noted. Polyuria noted. No chest pain. Patient is awake and responding. Clear urine noted Vital signs otherwise stable. Mild tachycardia Hypotension noted. Positive balance noted in the intake and output. Also currently receiving tube feedings. On examination: Vital signs tachycardia 84 bpm 100% saturation Blood pressure is maintained with Levophed Chest bilateral wheezing and rales noted regular heart sounds. Abdomen soft. Edema generalized noted. Labs reviewed Patient's labs reviewed Low potassium level noted. Supplementation Chest x-ray bilateral infiltrate noted. Assessment and recommendation: Patient is a 72-year-old male with a history of COPD dementia CHF arthritis admitted with acute respiratory failure hypotension and sepsis. Patient is currently on ventilator. Lung fibrotic changes noted. We will try to maintain the negative balance. And possible weaning once tolerated. Continue with the tube feedings. Supportive care. DVT GI prophylaxis. Low-dose corticosteroid. And will follow the patient CCU Objective - Vital Signs / Intake & Output Vital Signs (Last 4 hours): Vital Signs Pulse Resp BP Pulse Ox 03/09/18 08:15 89 21 100 03/09/18 08:09 87 21 142/79 100 03/09/18 08:00 84 20 100 03/09/18 07:45 82 16 100 03/09/18 07:30 83 20 100 03/09/18 07:15 84 20 100 03/09/18 07:10 80 20 136/82 100 03/09/18 07:00 83 17 100 03/09/18 06:45 83 20 100 03/09/18 06:30 84 19 100 03/09/18 06:15 87 16 100 03/09/18 06:11 95 H 116/63 100 03/09/18 06:00 88 21 100 03/09/18 05:45 94 H 24 100 03/09/18 05:30 92 H 21 100 03/09/18 05:15 88 24 100 03/09/18 05:10 91 H 23 138/91 H 100 03/09/18 05:00 99 H 23 100 03/09/18 04:45 92 H 21 100 Intake and Output (Last 8hrs): Intake & Output 03/08/18 03/09/18 03/09/18 22:59 06:59 14:59 Intake Total 914.9 1311.4 Output Total 1130 1095 Balance -215.1 216.4 Weight 115 lb 15.41 oz Intake: IV 104 181 Intake, IV Amount 490.9 710.4 Left Forearm 200.0 Right Forearm 450 Right PICC 242.9 210.4 Right PICC #2 42.5 rt picc y port 5.5 50.0 Tube Feeding 320 320 Other 100 Output: Urine 1130 1095 Urethral (Simmons) 1130 1095 Other: # Bowel Movements 1 1 - Physical Exam Head: Positive for: Atraumatic, Normocephalic Pupils: Positive for: PERRL Extroacular Muscles: Positive for: EOMI Conjunctiva: Positive for: Normal Ears: Positive for: Normal Mouth: Positive for: Dry, Other (ORAL ETT) Neck: Negative for: JVD Respiratory/Chest: Positive for: Good Air Exchange, Rhonchi. Negative for: Respiratory Distress Cardiovascular: Positive for: Normal S1, S2. Negative for: Murmurs, Irregular Rhythm, Tachycardic, Bradycardic Abdomen: Positive for: Normal Bowel Sounds. Negative for: Tenderness, Dist ention, Peritoneal Signs Upper Extremity: Positive for: Normal Inspection. Negative for: Cyanosis, Edema Lower Extremity: Positive for: Normal Inspection. Negative for: Edema Skin: Positive for: Dry, Normal Color. Negative for: Erythematous Psychiatric: Positive for: Alert - Medications Active Medications: Active Medications Generic Name Dose Route Start Last Admin Trade Name Freq PRN Reason Stop Dose Admin Acetaminophen 650 mg 03/01/18 21:09 03/07/18 05:29 Tylenol 650mg/20.3ml Solution Ud NG 650 mg Q6 PRN Administration Fever >100.4 F Albuterol/Ipratropium 3 ml 03/02/18 14:00 03/09/18 07:36 Duoneb 3 Mg/0.5 Mg (3 Ml) Ud INH 3 ml RQ6 VELMA Administration Enoxaparin Sodium 30 mg 03/07/18 11:00 03/08/18 10:20 Lovenox SC 30 mg DAILY VELMA Administration Dexmedetomidine HCl 200 mcg/ 50 mls @ 2.77 mls/hr 03/03/18 07:40 03/09/18 03:59 Sodium Chloride IV 0.39 mcg/kg/hr TITR PRN 5.5 mls/hr Agitation Titration Protocol 0.2 MCG/KG/HR Micafungin Sodium 100 mg/ 100 mls @ 100 mls/hr 03/04/18 01:00 03/08/18 23:59 Sodium Chloride IV 100 mls/hr Q24H VELMA Administration Protocol Meropenem 500 mg/ Sodium 100 mls @ 100 mls/hr 03/04/18 01:15 03/09/18 01:07 Chloride IVPB 100 mls/hr Q8H VELMA Administration Protocol Vancomycin HCl 1,000 mg/ 250 mls @ 166.6 mls/hr 03/06/18 04:00 03/09/18 04:03 Sodium Chloride IVPB 166.6 mls/hr Q12H VELMA Administration Protocol Norepinephrine Bitartrate 4 mg 254 mls @ 15.24 mls/hr 03/06/18 17:55 03/09/18 00:06 / Dextrose IV 6.9 mcg/min .[id number] PRN 26.3 mls/hr TITRATE PER MD ORDER Administration Protocol 4 MCG/MIN Potassium Chloride 20 meq in 100 mls @ 50 mls/hr 03/09/18 10:00 Potassium Chloride 20 Meq/100 Ml IVPB 03/09/18 13:59 Q2 VELMA Methylprednisolone 40 mg 03/08/18 10:00 03/08/18 10:21 Solu-Medrol IVP 40 mg DAILY VELMA Administration Pantoprazole Sodium 40 mg 03/08/18 06:00 03/09/18 05:14 Protonix Susp PO 40 mg 0600 VELMA Administration Potassium Chloride 40 meq 03/09/18 12:00 Potassium Chloride Oral Soln PO 03/09/18 20:01 Q4 VELMA - Patient Studies Lab Studies: Microbiology Studies 03/04/18 05:50 Blood Culture - Final Blood-Thru Central Line NO GROWTH AFTER 5 DAYS Gram Stain - Final TEST NOT PERFORMED 03/04/18 05:50 Blood Culture - Final Blood-Thru Central Line NO GROWTH AFTER 5 DAYS Gram Stain - Final TEST NOT PERFORMED Lab Studies 03/09/18 03/09/18 03/09/18 Range/Units 06:10 06:10 05:18 WBC 10.7 (4.8-10.8) K/uL RBC 3.19 L (4.40-5.90) Mil/uL Hgb 9.6 L (12.0-18.0) g/dL Hct 28.3 L (35.0-51.0) % MCV 88.5 (80.0-94.0) fL MCH 30.1 (27.0-31.0) pg MCHC 33.9 (33.0-37.0) g/dL RDW 14.9 H (11.5-14.5) % Plt Count 402 H (130-400) K/uL MPV 8.1 (7.2-11.7) fL Neut % (Auto) 91.6 H (50.0-75.0) % Lymph % (Auto) 3.3 L (20.0-40.0) % Lares % (Auto) 4.6 (0.0-10.0) % Eos % (Auto) 0.0 (0.0-4.0) % Baso % (Auto) 0.5 (0.0-2.0) % Neut # (Auto) 9.8 H (1.8-7.0) K/uL Lymph # (Auto) 0.4 L (1.0-4.3) K/uL Lares # (Auto) 0.5 (0.0-0.8) K/uL Eos # (Auto) 0.0 (0.0-0.7) K/uL Baso # (Auto) 0.1 (0.0-0.2) K/uL Neutrophils % (Manual) (50-75) % Band Neutrophils % (0-2) % Lymphocytes % (Manual) (20-40) % Monocytes % (Manual) (0-10) % Eosinophils % (Manual) (0-4) % Toxic Granulation Platelet Estimate (NORMAL) Large Platelets Giant Platelets Polychromasia Hypochromasia (manual) Anisocytosis (manual) Puncture Site Lb pCO2 51 H (35-45) mm/Hg pO2 94 (80-100) mm/Hg HCO3 37.2 H (21-28) mmol/L ABG pH 7.51 H (7.35-7.45) ABG Total CO2 42.3 H (22-28) mmol/L ABG O2 Saturation 99.4 H (95-98) % ABG Base Excess 15.8 H (-2.0-3.0) mmol/L ABG Hemoglobin 9.7 L (11.7-17.4) g/dL ABG Carboxyhemoglobin 2.3 H (0.5-1.5) % POC ABG HHb (Measured) 0.6 (0.0-5.0) % ABG Methemoglobin 1.3 (0.0-3.0) % Bereket Test Na A-a O2 Difference 199.0 mm/Hg Respiratory Index 2.1 Hgb O2 Saturation 95.8 (95.0-98.0) % Vent Mode Prvc Mechanical Rate 20 FiO2 50.0 % Tidal Volume 450 PEEP 5 Sodium 133 (132-148) mmol/L Potassium 2.6 L (3.6-5.2) mmol/L Chloride 86 L (98-107) mmol/L Carbon Dioxide 39 H (22-30) mmol/L Anion Gap 9 L (10-20) BUN 10 (9-20) mg/dL Creatinine 0.3 L (0.8-1.5) mg/dL Est GFR ( Amer) > 60 Est GFR (Non-Af Amer) > 60 POC Glucose (mg/dL) (65-110) mg/dL Random Glucose 157 H D (75-110) mg/dL Calcium 7.6 L (8.6-10.4) mg/dl Phosphorus 2.3 L (2.5-4.5) mg/dL Magnesium 1.7 (1.6-2.3) mg/dL Total Bilirubin 0.8 (0.2-1.3) mg/dL AST 26 (17-59) U/L ALT 21 D (21-72) U/L Alkaline Phosphatase 139 H (38-126) U/L Total Protein 7.0 (6.3-8.3) g/dL Albumin 3.3 L (3.5-5.0) g/dL Globulin 3.7 (2.2-3.9) gm/dL Albumin/Globulin Ratio 0.9 L (1.0-2.1) 03/08/18 03/08/18 03/08/18 Range/Units 23:32 18:16 12:55 WBC (4.8-10.8) K/uL RBC (4.40-5.90) Mil/uL Hgb (12.0-18.0) g/dL Hct (35.0-51.0) % MCV (80.0-94.0) fL MCH (27.0-31.0) pg MCHC (33.0-37.0) g/dL RDW (11.5-14.5) % Plt Count (130-400) K/uL MPV (7.2-11.7) fL Neut % (Auto) (50.0-75.0) % Lymph % (Auto) (20.0-40.0) % Lares % (Auto) (0.0-10.0) % Eos % (Auto) (0.0-4.0) % Baso % (Auto) (0.0-2.0) % Neut # (Auto) (1.8-7.0) K/uL Lymph # (Auto) (1.0-4.3) K/uL Lares # (Auto) (0.0-0.8) K/uL Eos # (Auto) (0.0-0.7) K/uL Baso # (Auto) (0.0-0.2) K/uL Neutrophils % (Manual) (50-75) % Band Neutrophils % (0-2) % Lymphocytes % (Manual) (20-40) % Monocytes % (Manual) (0-10) % Eosinophils % (Manual) (0-4) % Toxic Granulation Platelet Estimate (NORMAL) Large Platelets Giant Platelets Polychromasia Hypochromasia (manual) Anisocytosis (manual) Puncture Site pCO2 (35-45) mm/Hg pO2 (80-100) mm/Hg HCO3 (21-28) mmol/L ABG pH (7.35-7.45) ABG Total CO2 (22-28) mmol/L ABG O2 Saturation (95-98) % ABG Base Excess (-2.0-3.0) mmol/L ABG Hemoglobin (11.7-17.4) g/dL ABG Carboxyhemoglobin (0.5-1.5) % POC ABG HHb (Measured) (0.0-5.0) % ABG Methemoglobin (0.0-3.0) % [place]reket Test A-a O2 Difference mm/Hg Respiratory Index Hgb O2 Saturation (95.0-98.0) % Vent Mode Mechanical Rate FiO2 % Tidal Volume PEEP Sodium (132-148) mmol/L Potassium (3.6-5.2) mmol/L Chloride (98-107) mmol/L Carbon Dioxide (22-30) mmol/L Anion Gap (10-20) BUN (9-20) mg/dL Creatinine (0.8-1.5) mg/dL Est GFR ( Amer) Est GFR (Non-Af Amer) POC Glucose (mg/dL) 160 H 157 H 144 H (65-110) mg/dL Random Glucose (75-110) mg/dL Calcium (8.6-10.4) mg/dl Phosphorus (2.5-4.5) mg/dL Magnesium (1.6-2.3) mg/dL Total Bilirubin (0.2-1.3) mg/dL AST (17-59) U/L ALT (21-72) U/L Alkaline Phosphatase (38-126) U/L Total Protein (6.3-8.3) g/dL Albumin (3.5-5.0) g/dL Globulin (2.2-3.9) gm/dL Albumin/Globulin Ratio (1.0-2.1) 03/08/18 Range/Units 06:21 WBC (4.8-10.8) K/uL RBC (4.40-5.90) Mil/uL Hgb (12.0-18.0) g/dL Hct (35.0-51.0) % MCV (80.0-94.0) fL MCH (27.0-31.0) pg MCHC (33.0-37.0) g/dL RDW (11.5-14.5) % Plt Count (130-400) K/uL MPV (7.2-11.7) fL Neut % (Auto) (50.0-75.0) % Lymph % (Auto) (20.0-40.0) % Lares % (Auto) (0.0-10.0) % Eos % (Auto) (0.0-4.0) % Baso % (Auto) (0.0-2.0) % Neut # (Auto) (1.8-7.0) K/uL Lymph # (Auto) (1.0-4.3) K/uL Lares # (Auto) (0.0-0.8) K/uL Eos # (Auto) (0.0-0.7) K/uL Baso # (Auto) (0.0-0.2) K/uL Neutrophils % (Manual) 84 H (50-75) % Band Neutrophils % 4 H (0-2) % Lymphocytes % (Manual) 6 L (20-40) % Monocytes % (Manual) 5 (0-10) % Eosinophils % (Manual) 1 (0-4) % Toxic Granulation Present Platelet Estimate Normal (NORMAL) Large Platelets Present Giant Platelets Present Polychromasia Slight Hypochromasia (manual) Slight Anisocytosis (manual) Slight Puncture Site pCO2 (35-45) mm/Hg pO2 (80-100) mm/Hg HCO3 (21-28) mmol/L ABG pH (7.35-7.45) ABG Total CO2 (22-28) mmol/L ABG O2 Saturation (95-98) % ABG Base Excess (-2.0-3.0) mmol/L ABG Hemoglobin (11.7-17.4) g/dL ABG Carboxyhemoglobin (0.5-1.5) % POC ABG HHb (Measured) (0.0-5.0) % ABG Methemoglobin (0.0-3.0) % [place]reket Test A-a O2 Difference mm/Hg Respiratory Index Hgb O2 Saturation (95.0-98.0) % Vent Mode Mechanical Rate FiO2 % Tidal Volume PEEP Sodium (132-148) mmol/L Potassium (3.6-5.2) mmol/L Chloride (98-107) mmol/L Carbon Dioxide (22-30) mmol/L Anion Gap (10-20) BUN (9-20) mg/dL Creatinine (0.8-1.5) mg/dL Est GFR ( Amer) Est GFR (Non-Af Amer) POC Glucose (mg/dL) (65-110) mg/dL Random Glucose (75-110) mg/dL Calcium (8.6-10.4) mg/dl Phosphorus (2.5-4.5) mg/dL Magnesium (1.6-2.3) mg/dL Total Bilirubin (0.2-1.3) mg/dL AST (17-59) U/L ALT (21-72) U/L Alkaline Phosphatase (38-126) U/L Total Protein (6.3-8.3) g/dL Albumin (3.5-5.0) g/dL Globulin (2.2-3.9) gm/dL Albumin/Globulin Ratio (1.0-2.1) Laboratory Results - last 24 hr 03/08/18 03/08/18 03/08/18 06:21 12:55 18:16 WBC RBC Hgb Hct MCV MCH MCHC RDW Plt Count MPV Neut % (Auto) Lymph % (Auto) Lares % (Auto) Eos % (Auto) Baso % (Auto) Neut # (Auto) Lymph # (Auto) Lares # (Auto) Eos # (Auto) Baso # (Auto) Neutrophils % (Manual) 84 H Band Neutrophils % 4 H Lymphocytes % (Manual) 6 L Monocytes % (Manual) 5 Eosinophils % (Manual) 1 Toxic Granulation Present Platelet Estimate Normal Large Platelets Present Giant Platelets Present Polychromasia Slight Hypochromasia (manual) Slight Anisocytosis (manual) Slight Puncture Site pCO2 pO2 HCO3 ABG pH ABG Total CO2 ABG O2 Saturation ABG Base Excess ABG Hemoglobin ABG Carboxyhemoglobin POC ABG HHb (Measured) ABG Methemoglobin Bereket Test A-a O2 Difference Respiratory Index Hgb O2 Saturation Vent Mode Mechanical Rate FiO2 Tidal Volume PEEP Sodium Potassium Chloride Carbon Dioxide Anion Gap BUN Creatinine Est GFR ( Amer) Est GFR (Non-Af Amer) POC Glucose (mg/dL) 144 H 157 H Random Glucose Calcium Phosphorus Magnesium Total Bilirubin AST ALT Alkaline Phosphatase Total Protein Albumin Globulin Albumin/Globulin Ratio 03/08/18 03/09/18 03/09/18 23:32 05:18 06:10 WBC 10.7 RBC 3.19 L Hgb 9.6 L Hct 28.3 L MCV 88.5 MCH 30.1 MCHC 33.9 RDW 14.9 H Plt Count 402 H MPV 8.1 Neut % (Auto) 91.6 H Lymph % (Auto) 3.3 L Lares % (Auto) 4.6 Eos % (Auto) 0.0 Baso % (Auto) 0.5 Neut # (Auto) 9.8 H Lymph # (Auto) 0.4 L Lares # (Auto) 0.5 Eos # (Auto) 0.0 Baso # (Auto) 0.1 Neutrophils % (Manual) Band Neutrophils % Lymphocytes % (Manual) Monocytes % (Manual) Eosinophils % (Manual) Toxic Granulation Platelet Estimate Large Platelets Giant Platelets Polychromasia Hypochromasia (manual) Anisocytosis (manual) Puncture Site Lb pCO2 51 H pO2 94 HCO3 37.2 H ABG pH 7.51 H ABG Total CO2 42.3 H ABG O2 Saturation 99.4 H ABG Base Excess 15.8 H ABG Hemoglobin 9.7 L ABG Carboxyhemoglobin 2.3 H POC ABG HHb (Measured) 0.6 ABG Methemoglobin 1.3 Bereket Test Na A-a O2 Difference 199.0 Respiratory Index 2.1 Hgb O2 Saturation 95.8 Vent Mode Prvc Mechanical Rate 20 FiO2 50.0 Tidal Volume 450 PEEP 5 Sodium Potassium Chloride Carbon Dioxide Anion Gap BUN Creatinine Est GFR ( Amer) Est GFR (Non-Af Amer) POC Glucose (mg/dL) 160 H Random Glucose Calcium Phosphorus Magnesium Total Bilirubin AST ALT Alkaline Phosphatase Total Protein Albumin Globulin Albumin/Globulin Ratio 03/09/18 06:10 WBC RBC Hgb Hct MCV MCH MCHC RDW Plt Count MPV Neut % (Auto) Lymph % (Auto) Lares % (Auto) Eos % (Auto) Baso % (Auto) Neut # (Auto) Lymph # (Auto) Lares # (Auto) Eos # (Auto) Baso # (Auto) Neutrophils % (Manual) Band Neutrophils % Lymphocytes % (Manual) Monocytes % (Manual) Eosinophils % (Manual) Toxic Granulation Platelet Estimate Large Platelets Giant Platelets Polychromasia Hypochromasia (manual) Anisocytosis (manual) Puncture Site pCO2 pO2 HCO3 ABG pH ABG Total CO2 ABG O2 Saturation ABG Base Excess ABG Hemoglobin ABG Carboxyhemoglobin POC ABG HHb (Measured) ABG Methemoglobin Bereket Test A-a O2 Difference Respiratory Index Hgb O2 Saturation Vent Mode Mechanical Rate FiO2 Tidal Volume PEEP Sodium 133 Potassium 2.6 L Chloride 86 L Carbon Dioxide 39 H Anion Gap 9 L BUN 10 Creatinine 0.3 L Est GFR ( Amer) > 60 Est GFR (Non-Af Amer) > 60 POC Glucose (mg/dL) Random Glucose 157 H D Calcium 7.6 L Phosphorus 2.3 L Magnesium 1.7 Total Bilirubin 0.8 AST 26 ALT 21 D Alkaline Phosphatase 139 H Total Protein 7.0 Albumin 3.3 L Globulin 3.7 Albumin/Globulin Ratio 0.9 L Radiology Impressions: Radiology Impressions Chest X-Ray 03/08/18 07:00 IMPRESSION: No significant change. Bilateral infiltrates, left greater than right. Lines and tubes unchanged.
[2018-03-09 09:23] LABS: BANDS 6 % (0-2); LYMPHOCYTE 2 % (20-40); MONOCYTE 5 % (0-10); NEUTROPHIL 87 % (50-75); TOTAL CELLS COUNTED 100
[2018-03-09 09:26] LABS: ANISOCYTOSIS SLIGHT; HYPOCHROMIC SLIGHT; PLATELET ESTIMATE SLIGHTLY INCREASED (NORMAL); POLYCHROMIC SLIGHT; TOXIC GRANULATION PRESENT
[2018-03-09 09:27] LABS: LARGE PLATELETS PRESENT
[2018-03-09] MEDS: Enoxaparin 30 mg Syringe SC SCH (09:47)
[2018-03-09] MEDS: MethylPREDNISolone 40 mg Vial IVP SCH (09:47)
--- NOTE | 2018-03-09 11:38 | RAD ---
Date of service: 03/09/2018 HISTORY: vent/ff up COMPARISON: 03/08/2018 FINDINGS: LUNGS: Persistent bibasilar opacity, left greater than right. No significant change. PLEURA: No significant pleural effusion identified, no pneumothorax apparent. CARDIOVASCULAR: No aortic atherosclerotic calcification present. Normal cardiac size. No congestive change. ET tube, NG tube and right PICC catheter are all grossly unchanged. OSSEOUS STRUCTURES: No significant abnormalities. VISUALIZED UPPER ABDOMEN: Normal. OTHER FINDINGS: None. IMPRESSION: Persistent bibasilar opacity, left greater than right. Lines and tubes unchanged.
[2018-03-09] MEDS: Potassium Chloride 20 mEq/15 ml LIQ UD PO SCH ×3 (12:00→19:53)
--- NOTE | 2018-03-09 15:32 | CP.PCM.PN ---
Subjective - Date & Time of Evaluation Date of Evaluation: 03/09/18 Time of Evaluation: 15:32 Objective - Vital Signs/Intake and Output Vital Signs (last 24 hours): Temp Pulse Resp BP Pulse Ox 97.6 F 85 20 113/71 100 03/09/18 08:00 03/09/18 14:15 03/09/18 14:15 03/09/18 14:10 03/09/18 14:15 Intake and Output: 03/09/18 03/09/18 06:59 18:59 Intake Total 1689.8 1672.2 Output Total 1475 1400 Balance 214.8 272.2 - Medications Medications: Current Medications Acetaminophen (Tylenol 650mg/20.3ml Solution Ud) 650 mg NG Q6 PRN PRN Reason: Fever >100.4 F Last Admin: 03/07/18 05:29 Dose: 650 mg Albuterol/Ipratropium (Duoneb 3 Mg/0.5 Mg (3 Ml) Ud) 3 ml INH RQ6 VELMA Last Admin: 03/09/18 13:42 Dose: 3 ml Enoxaparin Sodium (Lovenox) 30 mg SC DAILY VELMA Last Admin: 03/09/18 09:47 Dose: 30 mg Dexmedetomidine HCl 200 mcg/ (Sodium Chloride) 50 mls @ 2.77 mls/hr IV TITR PRN; Protocol PRN Reason: Agitation Last Admin: 03/09/18 10:18 Dose: 0.5 mcg/kg/hr, 6.93 mls/hr Micafungin Sodium 100 mg/ (Sodium Chloride) 100 mls @ 100 mls/hr IV Q24H VELMA; Protocol Last Admin: 03/08/18 23:59 Dose: 100 mls/hr Meropenem 500 mg/ Sodium (Chloride) 100 mls @ 100 mls/hr IVPB Q8H VELMA; Protocol Last Admin: 03/09/18 09:00 Dose: 100 mls/hr Vancomycin HCl 1,000 mg/ (Sodium Chloride) 250 mls @ 166.6 mls/hr IVPB Q12H VELMA; Protocol Last Admin: 03/09/18 04:03 Dose: 166.6 mls/hr Norepinephrine Bitartrate 4 mg (/ Dextrose) 254 mls @ 15.24 mls/hr IV .[id number] PRN; Protocol PRN Reason: TITRATE PER MD ORDER Last Admin: 03/09/18 10:18 Dose: 6.9 mcg/min, 26.3 mls/hr Methylprednisolone (Solu-Medrol) 40 mg IVP DAILY [facility] Last Admin: 03/09/18 09:47 Dose: 40 mg Pantoprazole Sodium (Protonix Susp) 40 mg PO 0600 [facility] Last Admin: 03/09/18 05:14 Dose: 40 mg Potassium Chloride (Potassium Chloride Oral Soln) 40 meq PO Q4 VELMA Stop: 03/09/18 20:01 Last Admin: 03/09/18 12:00 Dose: 40 meq - Labs Labs: 03/09/18 06:10 03/09/18 06:10
--- NOTE | 2018-03-09 16:31 | CP.PCM.PN ---
Subjective - Date & Time of Evaluation Date of Evaluation: 03/09/18 Time of Evaluation: 16:30 - Subjective Subjective: THE Objective - Vital Signs/Intake and Output Vital Signs (last 24 hours): Temp Pulse Resp BP Pulse Ox 97.5 F L 79 20 136/84 100 03/09/18 16:00 03/09/18 16:15 03/09/18 16:15 03/09/18 16:10 03/09/18 16:15 Intake and Output: 03/09/18 03/09/18 11:59 23:59 Intake Total 2392.2 974.2 Output Total 1785 850 Balance 607.2 124.2 - Medications Medications: Current Medications Acetaminophen (Tylenol 650mg/20.3ml Solution Ud) 650 mg NG Q6 PRN PRN Reason: Fever >100.4 F Last Admin: 03/07/18 05:29 Dose: 650 mg Albuterol/Ipratropium (Duoneb 3 Mg/0.5 Mg (3 Ml) Ud) 3 ml INH RQ6 VELMA Last Admin: 03/09/18 13:42 Dose: 3 ml Enoxaparin Sodium (Lovenox) 30 mg SC DAILY [facility] Last Admin: 03/09/18 09:47 Dose: 30 mg Dexmedetomidine HCl 200 mcg/ (Sodium Chloride) 50 mls @ 2.77 mls/hr IV TITR PRN; Protocol PRN Reason: Agitation Last Admin: 03/09/18 10:18 Dose: 0.5 mcg/kg/hr, 6.93 mls/hr Micafungin Sodium 100 mg/ (Sodium Chloride) 100 mls @ 100 mls/hr IV Q24H [facility]ELMA; Protocol Last Admin: 03/08/18 23:59 Dose: 100 mls/hr Meropenem 500 mg/ Sodium (Chloride) 100 mls @ 100 mls/hr IVPB Q8H [facility]ELMA; Protocol Last Admin: 03/09/18 09:00 Dose: 100 mls/hr Vancomycin HCl 1,000 mg/ (Sodium Chloride) 250 mls @ 166.6 mls/hr IVPB Q12H [facility]ELMA; Protocol Last Admin: 03/09/18 04:03 Dose: 166.6 mls/hr Norepinephrine Bitartrate 4 mg (/ Dextrose) 254 mls @ 15.24 mls/hr IV .[id number] PRN; Protocol PRN Reason: TITRATE PER MD ORDER Last Titration: 03/09/18 15:00 Dose: 5 mcg/min, 19.05 mls/hr Methylprednisolone (Solu-Medrol) 40 mg IVP DAILY [facility] Last Admin: 03/09/18 09:47 Dose: 40 mg Pantoprazole Sodium (Protonix Susp) 40 mg PO 0600 [facility] Last Admin: 03/09/18 05:14 Dose: 40 mg Potassium Chloride (Potassium Chloride Oral Soln) 40 meq PO Q4 [facility] Stop: 03/09/18 20:01 Last Admin: 03/09/18 12:00 Dose: 40 meq - Labs Labs: 03/09/18 06:10 03/09/18 06:10
--- NOTE | 2018-03-09 17:21 | CP.PCM.PN ---
Subjective - Date & Time of Evaluation Date of Evaluation: 03/09/18 Time of Evaluation: 17:21 - Subjective Subjective: pt is seen and examined, follow up consult is dictated #[id number] Objective - Vital Signs/Intake and Output Vital Signs (last 24 hours): Temp Pulse Resp BP Pulse Ox 97.5 F L 79 20 136/84 100 03/09/18 16:00 03/09/18 16:15 03/09/18 16:15 03/09/18 16:10 03/09/18 16:15 Intake and Output: 03/09/18 03/09/18 06:59 18:59 Intake Total 1689.8 2134.8 Output Total 1475 1600 Balance 214.8 534.8 - Medications Medications: Current Medications Acetaminophen (Tylenol 650mg/20.3ml Solution Ud) 650 mg NG Q6 PRN PRN Reason: Fever >100.4 F Last Admin: 03/07/18 05:29 Dose: 650 mg Albuterol/Ipratropium (Duoneb 3 Mg/0.5 Mg (3 Ml) Ud) 3 ml INH RQ6 [facility] Last Admin: 03/09/18 13:42 Dose: 3 ml Enoxaparin Sodium (Lovenox) 30 mg SC DAILY [facility] Last Admin: 03/09/18 09:47 Dose: 30 mg Dexmedetomidine HCl 200 mcg/ (Sodium Chloride) 50 mls @ 2.77 mls/hr IV TITR PRN; Protocol PRN Reason: Agitation Last Admin: 03/09/18 10:18 Dose: 0.5 mcg/kg/hr, 6.93 mls/hr Micafungin Sodium 100 mg/ (Sodium Chloride) 100 mls @ 100 mls/hr IV Q24H [facility]; Protocol Last Admin: 03/08/18 23:59 Dose: 100 mls/hr Meropenem 500 mg/ Sodium (Chloride) 100 mls @ 100 mls/hr IVPB Q8H [facility]; Protocol Last Admin: 03/09/18 17:00 Dose: 100 mls/hr Vancomycin HCl 1,000 mg/ (Sodium Chloride) 250 mls @ 166.6 mls/hr IVPB Q12H VELMA; Protocol Last Admin: 03/09/18 16:00 Dose: 166.6 mls/hr Norepinephrine Bitartrate 4 mg (/ Dextrose) 254 mls @ 15.24 mls/hr IV .[id number] PRN; Protocol PRN Reason: TITRATE PER MD ORDER Last Titration: 03/09/18 17:00 Dose: 4 mcg/min, 15.24 mls/hr Methylprednisolone (Solu-Medrol) 40 mg IVP DAILY ON LICENSE OF [facility] Last Admin: 03/09/18 09:47 Dose: 40 mg Pantoprazole Sodium (Protonix Susp) 40 mg PO 0600 VELMA Last Admin: 03/09/18 05:14 Dose: 40 mg Potassium Chloride (Potassium Chloride Oral Soln) 40 meq PO Q4 VELMA Stop: 03/09/18 20:01 Last Admin: 03/09/18 16:00 Dose: 40 meq - Labs Labs: 03/09/18 06:10 03/09/18 06:10
[2018-03-10] MEDS: Micafungin 100 MG in Sodium Chloride 0.9% 100 ML IV SCH (00:10)
[2018-03-10] MEDS: Albuterol-Ipratrop 3 mg / 0.5 (3 ml) UD INH SCH ×4 (01:51→20:00)
[2018-03-10] MEDS: Meropenem 500 MG in Sodium Chloride 0.9% 100 ML IVPB SCH ×3 (02:03→17:00)
--- NOTE | 2018-03-10 04:27 | PN ---
DATE: 03/09/2018 FOLLOWUP RENAL CONSULTATION LOCATION: The patient is located in ICU, bed 8. REQUESTED BY: Cornelia Mancera MD REASON FOR FOLLOWUP: Polyuria, electrolyte imbalance. HISTORY OF PRESENT ILLNESS: Mr. Lawler is a 72-year-old elderly male with history of smoking, emphysema, acute cholecystitis, and bronchopneumonia, who was recently discharged and came back within 24 hours on 03/01/2018 with altered mental status and respiratory failure and intubated. The patient remains intubated. The patient is being treated for left lung pneumonia and also polyuria. The patient is alert, awake, following simple commands appropriately, wants to be extubated. The patient is not in distress, on ventilator. PHYSICAL EXAMINATION VITAL SIGNS: As follows, blood pressure 128/82, pulse 75, respirations 20, temperature 97.5. Height 5 feet 7 inches, weight is 115 pounds. GENERAL: Mr. Lawler is a 72-year-old elderly male, thin built and not in acute distress. HEENT: Pupils are normal and reactive to light and accommodation. Conjunctivae pink. Sclerae anicteric. On ventilator. No thyroid enlargement. LUNGS: Symmetric on both sides. Decreased breath sounds in the left base. Right side is not clear. CARDIOVASCULAR SYSTEM: Blak[place] at the fifth intercostal space, midclavicular line. S1 and S2 audible. No murmur or gallop. ABDOMEN: Normal in appearance, soft, tympanitic. No guarding. No rigidity. No hepatosplenomegaly. CENTRAL NERVOUS SYSTEM: The patient is on ventilator, awake, following commands appropriately. EXTREMITIES: No cyanosis, no clubbing, no edema. His I's and O's in the last 24 hours: Intake is 4078 and output is 3775. LABORATORY DATA: Include as follows: As of 03/09/2018, WBC 10.7, hemoglobin 9.6, hematocrit is 28.3, platelets 402, neutrophils 87, bands 6, lymphs 2, monos 5. ABG: pH is 7.51, pCO2 of 51, pO2 is 94, bicarb is 37.2, and saturation 99.4. Sodium 133, potassium 2.6, chloride 86, CO2 of 39, BUN 10, creatinine 0.3, glucose 157, calcium is 7.6, phosphorus 2.3, magnesium 1.7. Total bili 0.8, AST 26, ALT 21, alkaline phos 129, total protein is 7, and albumin is 3.3. Chest x-ray as of on 03/09/2018, persistent bibasilar opacity left greater than the right, lines and tubes are unchanged. ASSESSMENT: In summary, Mr. Lawler is a 72-year-old elderly male with history of emphysema, respiratory failure with bilateral pneumonia left greater than the right, on ventilator with vent settings AC 20, tidal volume 450, FiO2 of 50%, PEEP of 5 with polyuria. 1. Polyuria, most likely secondary to osmatic diuresis secondary to electrolyte induced. No evidence of diabetes insipidus at this time. 2. Electrolyte imbalance and hypokalemia. Hypocalcemia secondary to hypomagnesemia and hypophosphatemia. Continue supplement potassium, magnesium, and continue to monitor BMP in a.m. and try to keep magnesium level more than 2.5. We will follow with you. Thank you for allowing me to participate in your patient's care. Edwige Sanchez MD
[2018-03-10] MEDS: Dexmedetomidine Hydrochloride 200 MCG in Sodium Chloride 0.9% 48 ML IV PRN ×2 (05:08→19:24)
[2018-03-10] MEDS: Pantoprazole 40 mg Susp UD PO SCH (05:09)
[2018-03-10 05:44] LABS: BASO % 0.2 % (0.0-2.0); HEMOGLOBIN 9.4 g/dL (12.0-18.0); LYMPH # 0.4 K/uL (1.0-4.3); LYMPH % 3.2 % (20.0-40.0); MEAN CELL VOLUME 90.9 fL (80.0-94.0); MEAN CORPUSCULAR HEMOGLOBIN 29.7 pg (27.0-31.0); MEAN CORPUSCULAR HGB CONC 32.6 g/dL (33.0-37.0); MEAN PLATELET VOLUME 8.2 fL (7.2-11.7); MONO # 0.7 K/uL (0.0-0.8); MONO % 5.9 % (0.0-10.0); NEUT # 11.2 K/uL (1.8-7.0); NEUT % 90.7 % (50.0-75.0); PLATELET COUNT 476 K/uL (130-400); RBC 3.16 Mil/uL (4.40-5.90); WHITE BLOOD COUNT 12.4 K/uL (4.8-10.8)
[2018-03-10 06:00] LABS: ARTERIAL BLOOD GAS HCO3 33.3 mmol/L (21-28); ARTERIAL BLOOD GAS HEMOGLOBIN 9.5 g/dL (11.7-17.4); ARTERIAL BLOOD GAS O2 SAT 99.4 % (95-98); ARTERIAL BLOOD GAS PCO2 49 mm/Hg (35-45); ARTERIAL BLOOD GAS PH 7.47 (7.35-7.45); ARTERIAL BLOOD GAS PO2 178 mm/Hg (80-100); ARTERIAL BLOOD GAS TCO2 37.2 mmol/L (22-28)
[2018-03-10 06:22] LABS: ALBUMIN 3.4 g/dL (3.5-5.0)
[2018-03-10 07:01] LABS: ALB/GLOB RATIO 0.9 (1.0-2.1); ALT/SGPT 25 U/L (21-72); AST/SGOT 32 U/L (17-59); BLOOD UREA NITROGEN 17 mg/dL (9-20); GFR NON-AFRICAN AMERICAN > 60
[2018-03-10 08:26] LABS: LYMPHOCYTE 3 % (20-40); MONOCYTE 5 % (0-10); NEUTROPHIL 92 % (50-75); PLATELET ESTIMATE SLIGHTLY INCREASED (NORMAL); TOTAL CELLS COUNTED 100
[2018-03-10 08:27] LABS: ANISOCYTOSIS SLIGHT; HYPOCHROMIC SLIGHT; POIKILOCYTOSIS SLIGHT
--- NOTE | 2018-03-10 08:53 | RAD ---
Date of service: 03/10/2018 HISTORY: vent/ff-up COMPARISON: 03/09/2018 FINDINGS: LUNGS: Extensive opacity lower half of left lung. Minimal opacity at right base, possible subsegmental atelectasis. No new infiltrate. PLEURA: No significant pleural effusion identified, no pneumothorax apparent. CARDIOVASCULAR: ETT, NG tube and right PICC catheter are all grossly unchanged. Please note that the lung apices are partially obscured by the patient's mandible. Normal cardiac size. No pulmonary vascular congestion. OSSEOUS STRUCTURES: No significant abnormalities. VISUALIZED UPPER ABDOMEN: Normal. OTHER FINDINGS: None. IMPRESSION: Persistent opacity at left base. Improving opacity at right base. Possible subsegmental atelectasis at right base. Small bilateral pleural effusion. Lines and tubes unchanged.
[2018-03-10] MEDS: MethylPREDNISolone 40 mg Vial IVP SCH ×2 (09:15→10:50)
[2018-03-10] MEDS: Enoxaparin 30 mg Syringe SC SCH (09:15)
[2018-03-10] MEDS ORDERED: Albumin Human 25% (12.5 gm/50 ml) IV STA (11:04)
--- NOTE | 2018-03-10 12:53 | CP.PCM.PN ---
Subjective - Date & Time of Evaluation Date of Evaluation: 03/10/18 Time of Evaluation: 12:53 - Subjective Subjective: pt is seen and examined, follow up consult is dictated #[id number] Objective - Vital Signs/Intake and Output Vital Signs (last 24 hours): Temp Pulse Resp BP Pulse Ox 97.6 F 85 39 H 73/38 L 100 03/10/18 07:48 03/10/18 10:23 03/10/18 10:23 03/10/18 10:23 03/10/18 10:23 Intake and Output: 03/10/18 03/10/18 06:59 18:59 Intake Total 1118.9 668.9 Output Total 1145 500 Balance -26.1 168.9 - Medications Medications: Current Medications Acetaminophen (Tylenol 650mg/20.3ml Solution Ud) 650 mg NG Q6 PRN PRN Reason: Fever >100.4 F Last Admin: 03/07/18 05:29 Dose: 650 mg Albuterol/Ipratropium (Duoneb 3 Mg/0.5 Mg (3 Ml) Ud) 3 ml INH RQ6 [facility] Last Admin: 03/10/18 08:15 Dose: 3 ml Enoxaparin Sodium (Lovenox) 30 mg SC DAILY [facility] Last Admin: 03/10/18 09:15 Dose: 30 mg Fludrocortisone Acetate (Florinef) 0.1 mg PO DAILY [facility] Last Admin: 03/10/18 11:35 Dose: 0.1 mg Dexmedetomidine HCl 200 mcg/ (Sodium Chloride) 50 mls @ 2.77 mls/hr IV TITR PRN; Protocol PRN Reason: Agitation Last Titration: 03/10/18 07:30 Dose: 0 mcg/kg/hr, 0 mls/hr Micafungin Sodium 100 mg/ (Sodium Chloride) 100 mls @ 100 mls/hr IV Q24H [facility]; Protocol Last Admin: 03/10/18 00:10 Dose: 100 mls/hr Meropenem 500 mg/ Sodium (Chloride) 100 mls @ 100 mls/hr IVPB Q8H [facility]MA; Protocol Last Admin: 03/10/18 09:00 Dose: 100 mls/hr Norepinephrine Bitartrate 4 mg (/ Dextrose) 254 mls @ 15.24 mls/hr IV .[id number] PRN; Protocol PRN Reason: TITRATE PER MD ORDER Last Titration: 03/10/18 08:00 Dose: 0 mcg/min, 0 mls/hr Methylprednisolone (Solu-Medrol) 20 mg IVP DAILY [facility] Last Admin: 03/10/18 10:50 Dose: Not Given Midodrine (Proamatine) 5 mg PO TID PRN PRN Reason: Low Blood Pressure Pantoprazole Sodium (Protonix Susp) 40 mg PO 0600 [facility] Last Admin: 03/10/18 05:09 Dose: 40 mg - Labs Labs: 03/10/18 05:35 03/10/18 05:35
--- NOTE | 2018-03-10 13:47 | CP.PCM.PN ---
Subjective - Date & Time of Evaluation Date of Evaluation: 03/10/18 Time of Evaluation: 13:47 Objective - Vital Signs/Intake and Output Vital Signs (last 24 hours): Temp Pulse Resp BP Pulse Ox 97.6 F 85 39 H 73/38 L 100 03/10/18 07:48 03/10/18 10:23 03/10/18 10:23 03/10/18 10:23 03/10/18 10:23 Intake and Output: 03/10/18 03/10/18 06:59 18:59 Intake Total 1118.9 668.9 Output Total 1145 500 Balance -26.1 168.9 - Medications Medications: Current Medications Acetaminophen (Tylenol 650mg/20.3ml Solution Ud) 650 mg NG Q6 PRN PRN Reason: Fever >100.4 F Last Admin: 03/07/18 05:29 Dose: 650 mg Albuterol/Ipratropium (Duoneb 3 Mg/0.5 Mg (3 Ml) Ud) 3 ml INH RQ6 [facility]ELMA Last Admin: 03/10/18 13:46 Dose: 3 ml Enoxaparin Sodium (Lovenox) 30 mg SC DAILY [facility] Last Admin: 03/10/18 09:15 Dose: 30 mg Fludrocortisone Acetate (Florinef) 0.1 mg PO DAILY [facility] Last Admin: 03/10/18 11:35 Dose: 0.1 mg Dexmedetomidine HCl 200 mcg/ (Sodium Chloride) 50 mls @ 2.77 mls/hr IV TITR PRN; Protocol PRN Reason: Agitation Last Titration: 03/10/18 07:30 Dose: 0 mcg/kg/hr, 0 mls/hr Micafungin Sodium 100 mg/ (Sodium Chloride) 100 mls @ 100 mls/hr IV Q24H [facility]; Protocol Last Admin: 03/10/18 00:10 Dose: 100 mls/hr Meropenem 500 mg/ Sodium (Chloride) 100 mls @ 100 mls/hr IVPB Q8H [facility]; Protocol Last Admin: 03/10/18 09:00 Dose: 100 mls/hr Norepinephrine Bitartrate 4 mg (/ Dextrose) 254 mls @ 15.24 mls/hr IV .[id number] PRN; Protocol PRN Reason: TITRATE PER MD ORDER Last Titration: 03/10/18 08:00 Dose: 0 mcg/min, 0 mls/hr Methylprednisolone (Solu-Medrol) 20 mg IVP DAILY [facility] Last Admin: 03/10/18 10:50 Dose: Not Given Midodrine (Proamatine) 5 mg PO TID PRN PRN Reason: Low Blood Pressure Pantoprazole Sodium (Protonix Susp) 40 mg PO 0600 [facility] Last Admin: 03/10/18 05:09 Dose: 40 mg - Labs Labs: 03/10/18 05:35 03/10/18 05:35
--- NOTE | 2018-03-10 14:33 | CP.PCM.PN ---
Subjective - Date & Time of Evaluation Date of Evaluation: 03/10/18 Time of Evaluation: 14:32 - Subjective Subjective: Levophed was turned off patient blood pressure still remains low. Patient intubated on a respirator difficult to wean off. Chest x-ray remains same on IV antibiotics. Continue present management. We will discuss with the family about tracheostomy. Objective - Vital Signs/Intake and Output Vital Signs (last 24 hours): Temp Pulse Resp BP Pulse Ox 97.6 F 85 39 H 73/38 L 100 03/10/18 07:48 03/10/18 10:23 03/10/18 10:23 03/10/18 10:23 03/10/18 10:23 Intake and Output: 03/10/18 03/10/18 11:59 23:59 Intake Total 1282.2 Output Total 1175 Balance 107.2 - Medications Medications: Current Medications Acetaminophen (Tylenol 650mg/20.3ml Solution Ud) 650 mg NG Q6 PRN PRN Reason: Fever >100.4 F Last Admin: 03/07/18 05:29 Dose: 650 mg Albuterol/Ipratropium (Duoneb 3 Mg/0.5 Mg (3 Ml) Ud) 3 ml INH RQ6 [facility] Last Admin: 03/10/18 13:46 Dose: 3 ml Enoxaparin Sodium (Lovenox) 30 mg SC DAILY [facility] Last Admin: 03/10/18 09:15 Dose: 30 mg Fludrocortisone Acetate (Florinef) 0.1 mg PO DAILY [facility] Last Admin: 03/10/18 11:35 Dose: 0.1 mg Dexmedetomidine HCl 200 mcg/ (Sodium Chloride) 50 mls @ 2.77 mls/hr IV TITR PRN; Protocol PRN Reason: Agitation Last Titration: 03/10/18 07:30 Dose: 0 mcg/kg/hr, 0 mls/hr Micafungin Sodium 100 mg/ (Sodium Chloride) 100 mls @ 100 mls/hr IV Q24H [facility]; Protocol Last Admin: 03/10/18 00:10 Dose: 100 mls/hr Meropenem 500 mg/ Sodium (Chloride) 100 mls @ 100 mls/hr IVPB Q8H [facility]; Protocol Last Admin: 03/10/18 09:00 Dose: 100 mls/hr Norepinephrine Bitartrate 4 mg (/ Dextrose) 254 mls @ 15.24 mls/hr IV .[id number] PRN; Protocol PRN Reason: TITRATE PER MD ORDER Last Titration: 03/10/18 08:00 Dose: 0 mcg/min, 0 mls/hr Methylprednisolone (Solu-Medrol) 20 mg IVP DAILY [facility] Last Admin: 03/10/18 10:50 Dose: Not Given Midodrine (Proamatine) 5 mg PO TID PRN PRN Reason: Low Blood Pressure Pantoprazole Sodium (Protonix Susp) 40 mg PO 0600 [facility] Last Admin: 03/10/18 05:09 Dose: 40 mg - Labs Labs: 03/10/18 05:35 03/10/18 05:35
--- NOTE | 2018-03-10 15:53 | CP.CCUPN ---
CCU Subjective - Physician Review Subjective (Free Text): Critical Care Progress Note for Dr. Galarza's service Patient seen and examined at bedside. 12 point ROS limited 2/2 patient clinical condition. Critical Care Time Spent (in minutes): 35 CCU Objective - Vital Signs / Intake & Output Intake and Output (Last 8hrs): Intake & Output 03/10/18 03/10/18 03/10/18 06:59 14:59 22:59 Intake Total 720.2 668.9 Output Total 750 500 Balance -29.8 168.9 Weight 119 lb 14.903 oz Intake: IV 125 87 Intake, IV Amount 175.2 21.9 RIGHT PICC Y PORT 55.2 6.9 RIGHT PICC Y PORT #2 120 15 Tube Feeding 320 160 Other 100 400 Output: Urine 750 500 Urethral (Simmons) 750 500 - Physical Exam Head: Positive for: Atraumatic, Normocephalic Pupils: Positive for: PERRL Extroacular Muscles: Positive for: EOMI Conjunctiva: Positive for: Normal Ears: Positive for: Normal Mouth: Positive for: Dry, Other (ORAL ETT) Neck: Negative for: JVD Respiratory/Chest: Positive for: Good Air Exchange, Rhonchi. Negative for: Respiratory Distress Cardiovascular: Positive for: Normal S1, S2. Negative for: Murmurs, Irregular Rhythm, Tachycardic, Bradycardic Abdomen: Positive for: Normal Bowel Sounds. Negative for: Tenderness, Distention, Peritoneal Signs Upper Extremity: Positive for: Normal Inspection. Negative for: Cyanosis, Edema Lower Extremity: Positive for: Normal Inspection. Negative for: Edema Skin: Positive for: Dry, Normal Color. Negative for: Erythematous Psychiatric: Positive for: Alert - Medications Active Medications: Active Medications Generic Name Dose Route Start Last Admin Trade Name Freq PRN Reason Stop Dose Admin Acetaminophen 650 mg 03/01/18 21:09 03/07/18 05:29 Tylenol 650mg/20.3ml Solution Ud NG 650 mg Q6 PRN Administration Fever >100.4 F Albuterol/Ipratropium 3 ml 03/02/18 14:00 03/10/18 13:46 Duoneb 3 Mg/0.5 Mg (3 Ml) Ud INH 3 ml RQ6 VELMA Administration Enoxaparin Sodium 30 mg 03/07/18 11:00 03/10/18 09:15 Lovenox SC 30 mg DAILY [facility]MA Administration Fludrocortisone Acetate 0.1 mg 03/10/18 11:15 03/10/18 11:35 Florinef PO 0.1 mg DAILY [facility]MA Administration Dexmedetomidine HCl 200 mcg/ 50 mls @ 2.77 mls/hr 03/03/18 07:40 03/10/18 07:30 Sodium Chloride IV 0 mcg/kg/hr TITR PRN 0 mls/hr Agitation Titration Protocol 0.2 MCG/KG/HR Micafungin Sodium 100 mg/ 100 mls @ 100 mls/hr 03/04/18 01:00 03/10/18 00:10 Sodium Chloride IV 100 mls/hr Q24H VELMA Administration Protocol Meropenem 500 mg/ Sodium 100 mls @ 100 mls/hr 03/04/18 01:15 03/10/18 09:00 Chloride IVPB 100 mls/hr Q8H [facility]ELMA Administration Protocol Norepinephrine Bitartrate 4 mg 254 mls @ 15.24 mls/hr 03/06/18 17:55 03/10/18 08:00 / Dextrose IV 0 mcg/min .[id number] PRN 0 mls/hr TITRATE PER MD ORDER Titration Protocol 4 MCG/MIN Methylprednisolone 20 mg 03/10/18 10:30 03/10/18 10:50 Solu-Medrol IVP Not Given DAILY [facility] Midodrine 5 mg 03/10/18 10:39 Proamatine PO TID PRN Low Blood Pressure Pantoprazole Sodium 40 mg 03/08/18 06:00 03/10/18 05:09 Protonix Susp PO 40 mg 0600 [facility] Administration - Patient Studies Lab Studies: Lab Studies 03/10/18 03/10/18 03/10/18 Range/Units 12:49 05:35 05:35 WBC 12.4 H (4.8-10.8) K/uL RBC 3.16 L (4.40-5.90) Mil/uL Hgb 9.4 L (12.0-18.0) g/dL Hct 28.7 L (35.0-51.0) % MCV 90.9 D (80.0-94.0) fL MCH 29.7 (27.0-31.0) pg MCHC 32.6 L (33.0-37.0) g/dL RDW 15.0 H (11.5-14.5) % Plt Count 476 H (130-400) K/uL MPV 8.2 (7.2-11.7) fL Neut % (Auto) 90.7 H (50.0-75.0) % Lymph % (Auto) 3.2 L (20.0-40.0) % Cooper % (Auto) 5.9 (0.0-10.0) % Eos % (Auto) 0.0 (0.0-4.0) % Baso % (Auto) 0.2 (0.0-2.0) % Neut # (Auto) 11.2 H (1.8-7.0) K/uL Lymph # (Auto) 0.4 L (1.0-4.3) K/uL Cooper # (Auto) 0.7 (0.0-0.8) K/uL Eos # (Auto) 0.0 (0.0-0.7) K/uL Baso # (Auto) 0.0 (0.0-0.2) K/uL Neutrophils % (Manual) 92 H (50-75) % Lymphocytes % (Manual) 3 L (20-40) % Monocytes % (Manual) 5 (0-10) % Platelet Estimate Slightly increased H (NORMAL) Hypochromasia (manual) Slight Poikilocytosis (manual Slight Anisocytosis (manual) Slight Puncture Site pCO2 (35-45) mm/Hg pO2 (80-100) mm/Hg HCO3 (21-28) mmol/L ABG pH (7.35-7.45) ABG Total CO2 (22-28) mmol/L ABG O2 Saturation (95-98) % ABG Base Excess (-2.0-3.0) mmol/L ABG Hemoglobin (11.7-17.4) g/dL ABG Carboxyhemoglobin (0.5-1.5) % POC ABG HHb (Measured) (0.0-5.0) % ABG Methemoglobin (0.0-3.0) % Bereket Test A-a O2 Difference mm/Hg Respiratory Index Hgb O2 Saturation (95.0-98.0) % Vent Mode Mechanical Rate FiO2 % Tidal Volume PEEP Sodium 138 (132-148) mmol/L Potassium 4.7 (3.6-5.2) mmol/L Chloride 98 (98-107) mmol/L Carbon Dioxide 30 (22-30) mmol/L Anion Gap 12 (10-20) BUN 17 (9-20) mg/dL Creatinine 0.3 L (0.8-1.5) mg/dL Est GFR ( Amer) > 60 Est GFR (Non-Af Amer) > 60 POC Glucose (mg/dL) 113 H (65-110) mg/dL Random Glucose 139 H (75-110) mg/dL Calcium 8.0 L (8.6-10.4) mg/dl Phosphorus 2.2 L (2.5-4.5) mg/dL Magnesium 1.9 (1.6-2.3) mg/dL Total Bilirubin 0.5 (0.2-1.3) mg/dL AST 32 (17-59) U/L ALT 25 (21-72) U/L Alkaline Phosphatase 129 H (38-126) U/L Total Protein 7.1 (6.3-8.3) g/dL Albumin 3.4 L (3.5-5.0) g/dL Globulin 3.8 (2.2-3.9) gm/dL Albumin/Globulin Ratio 0.9 L (1.0-2.1) 03/10/18 03/10/18 03/10/18 Range/Units 05:20 05:03 00:04 WBC (4.8-10.8) K/uL RBC (4.40-5.90) Mil/uL Hgb (12.0-18.0) g/dL Hct (35.0-51.0) % MCV (80.0-94.0) fL MCH (27.0-31.0) pg MCHC (33.0-37.0) g/dL RDW (11.5-14.5) % Plt Count (130-400) K/uL MPV (7.2-11.7) fL Neut % (Auto) (50.0-75.0) % Lymph % (Auto) (20.0-40.0) % Cooper % (Auto) (0.0-10.0) % Eos % (Auto) (0.0-4.0) % Baso % (Auto) (0.0-2.0) % Neut # (Auto) (1.8-7.0) K/uL Lymph # (Auto) (1.0-4.3) K/uL Cooper # (Auto) (0.0-0.8) K/uL Eos # (Auto) (0.0-0.7) K/uL Baso # (Auto) (0.0-0.2) K/uL Neutrophils % (Manual) (50-75) % Lymphocytes % (Manual) (20-40) % Monocytes % (Manual) (0-10) % Platelet Estimate (NORMAL) Hypochromasia (manual) Poikilocytosis (manual Anisocytosis (manual) Puncture Site Lbrac pCO2 49 H (35-45) mm/Hg pO2 178 H (80-100) mm/Hg HCO3 33.3 H (21-28) mmol/L ABG pH 7.47 H (7.35-7.45) ABG Total CO2 37.2 H (22-28) mmol/L ABG O2 Saturation 99.4 H (95-98) % ABG Base Excess 10.7 H (-2.0-3.0) mmol/L ABG Hemoglobin 9.5 L (11.7-17.4) g/dL ABG Carboxyhemoglobin 1.7 H (0.5-1.5) % POC ABG HHb (Measured) 0.6 (0.0-5.0) % ABG Methemoglobin 1.6 (0.0-3.0) % Bereket Test Na A-a O2 Difference 117.0 mm/Hg Respiratory Index 0.7 Hgb O2 Saturation 96.0 (95.0-98.0) % Vent Mode Prvc Mechanical Rate 20 FiO2 50.0 % Tidal Volume 450 PEEP 5 Sodium (132-148) mmol/L Potassium (3.6-5.2) mmol/L Chloride (98-107) mmol/L Carbon Dioxide (22-30) mmol/L Anion Gap (10-20) BUN (9-20) mg/dL Creatinine (0.8-1.5) mg/dL Est GFR ( Amer) Est GFR (Non-Af Amer) POC Glucose (mg/dL) 140 H 135 H (65-110) mg/dL Random Glucose (75-110) mg/dL Calcium (8.6-10.4) mg/dl Phosphorus (2.5-4.5) mg/dL Magnesium (1.6-2.3) mg/dL Total Bilirubin (0.2-1.3) mg/dL AST (17-59) U/L ALT (21-72) U/L Alkaline Phosphatase (38-126) U/L Total Protein (6.3-8.3) g/dL Albumin (3.5-5.0) g/dL Globulin (2.2-3.9) gm/dL Albumin/Globulin Ratio (1.0-2.1) 03/09/18 03/09/18 Range/Units 17:55 11:15 WBC (4.8-10.8) K/uL RBC (4.40-5.90) Mil/uL Hgb (12.0-18.0) g/dL Hct (35.0-51.0) % MCV (80.0-94.0) fL MCH (27.0-31.0) pg MCHC (33.0-37.0) g/dL RDW (11.5-14.5) % Plt Count (130-400) K/uL MPV (7.2-11.7) fL Neut % (Auto) (50.0-75.0) % Lymph % (Auto) (20.0-40.0) % Cooper % (Auto) (0.0-10.0) % Eos % (Auto) (0.0-4.0) % Baso % (Auto) (0.0-2.0) % Neut # (Auto) (1.8-7.0) K/uL Lymph # (Auto) (1.0-4.3) K/uL Cooper # (Auto) (0.0-0.8) K/uL Eos # (Auto) (0.0-0.7) K/uL Baso # (Auto) (0.0-0.2) K/uL Neutrophils % (Manual) (50-75) % Lymphocytes % (Manual) (20-40) % Monocytes % (Manual) (0-10) % Platelet Estimate (NORMAL) Hypochromasia (manual) Poikilocytosis (manual Anisocytosis (manual) Puncture Site pCO2 (35-45) mm/Hg pO2 (80-100) mm/Hg HCO3 (21-28) mmol/L ABG pH (7.35-7.45) ABG Total CO2 (22-28) mmol/L ABG O2 Saturation (95-98) % ABG Base Excess (-2.0-3.0) mmol/L ABG Hemoglobin (11.7-17.4) g/dL ABG Carboxyhemoglobin (0.5-1.5) % POC ABG HHb (Measured) (0.0-5.0) % ABG Methemoglobin (0.0-3.0) % [place]reket Test A-a O2 Difference mm/Hg Respiratory Index Hgb O2 Saturation (95.0-98.0) % Vent Mode Mechanical Rate FiO2 % Tidal Volume PEEP Sodium (132-148) mmol/L Potassium (3.6-5.2) mmol/L Chloride (98-107) mmol/L Carbon Dioxide (22-30) mmol/L Anion Gap (10-20) BUN (9-20) mg/dL Creatinine (0.8-1.5) mg/dL Est GFR ( Amer) Est GFR (Non-Af Amer) POC Glucose (mg/dL) 190 H 137 H (65-110) mg/dL Random Glucose (75-110) mg/dL Calcium (8.6-10.4) mg/dl Phosphorus (2.5-4.5) mg/dL Magnesium (1.6-2.3) mg/dL Total Bilirubin (0.2-1.3) mg/dL AST (17-59) U/L ALT (21-72) U/L Alkaline Phosphatase (38-126) U/L Total Protein (6.3-8.3) g/dL Albumin (3.5-5.0) g/dL Globulin (2.2-3.9) gm/dL Albumin/Globulin Ratio (1.0-2.1) Laboratory Results - last 24 hr 03/09/18 03/09/18 03/10/18 11:15 17:55 00:04 WBC RBC Hgb Hct MCV MCH MCHC RDW Plt Count MPV Neut % (Auto) Lymph % (Auto) Cooper % (Auto) Eos % (Auto) Baso % (Auto) Neut # (Auto) Lymph # (Auto) Cooper # (Auto) Eos # (Auto) Baso # (Auto) Neutrophils % (Manual) Lymphocytes % (Manual) Monocytes % (Manual) Platelet Estimate Hypochromasia (manual) Poikilocytosis (manual Anisocytosis (manual) Puncture Site pCO2 pO2 HCO3 ABG pH ABG Total CO2 ABG O2 Saturation ABG Base Excess ABG Hemoglobin ABG Carboxyhemoglobin POC ABG HHb (Measured) ABG Methemoglobin Bereket Test A-a O2 Difference Respiratory Index Hgb O2 Saturation Vent Mode Mechanical Rate FiO2 Tidal Volume PEEP Sodium Potassium Chloride Carbon Dioxide Anion Gap BUN Creatinine Est GFR ( Amer) Est GFR (Non-Af Amer) POC Glucose (mg/dL) 137 H 190 H 135 H Random Glucose Calcium Phosphorus Magnesium Total Bilirubin AST ALT Alkaline Phosphatase Total Protein Albumin Globulin Albumin/Globulin Ratio 03/10/18 03/10/18 03/10/18 05:03 05:20 05:35 WBC 12.4 H RBC 3.16 L Hgb 9.4 L Hct 28.7 L MCV 90.9 D MCH 29.7 MCHC 32.6 L RDW 15.0 H Plt Count 476 H MPV 8.2 Neut % (Auto) 90.7 H Lymph % (Auto) 3.2 L Cooper % (Auto) 5.9 Eos % (Auto) 0.0 Baso % (Auto) 0.2 Neut # (Auto) 11.2 H Lymph # (Auto) 0.4 L Cooper # (Auto) 0.7 Eos # (Auto) 0.0 Baso # (Auto) 0.0 Neutrophils % (Manual) 92 H Lymphocytes % (Manual) 3 L Monocytes % (Manual) 5 Platelet Estimate Slightly increased H Hypochromasia (manual) Slight Poikilocytosis (manual Slight Anisocytosis (manual) Slight Puncture Site Lbrac pCO2 49 H pO2 178 H HCO3 33.3 H ABG pH 7.47 H ABG Total CO2 37.2 H ABG O2 Saturation 99.4 H ABG Base Excess 10.7 H ABG Hemoglobin 9.5 L ABG Carboxyhemoglobin 1.7 H POC ABG HHb (Measured) 0.6 ABG Methemoglobin 1.6 Bereket Test Na A-a O2 Difference 117.0 Respiratory Index 0.7 Hgb O2 Saturation 96.0 Vent Mode Prvc Mechanical Rate 20 FiO2 50.0 Tidal Volume 450 PEEP 5 Sodium Potassium Chloride Carbon Dioxide Anion Gap BUN Creatinine Est GFR ( Amer) Est GFR (Non-Af Amer) POC Glucose (mg/dL) 140 H Random Glucose Calcium Phosphorus Magnesium Total Bilirubin AST ALT Alkaline Phosphatase Total Protein Albumin Globulin Albumin/Globulin Ratio 03/10/18 03/10/18 05:35 12:49 WBC RBC Hgb Hct MCV MCH MCHC RDW Plt Count MPV Neut % (Auto) Lymph % (Auto) Cooper % (Auto) Eos % (Auto) Baso % (Auto) Neut # (Auto) Lymph # (Auto) Cooper # (Auto) Eos # (Auto) Baso # (Auto) Neutrophils % (Manual) Lymphocytes % (Manual) Monocytes % (Manual) Platelet Estimate Hypochromasia (manual) Poikilocytosis (manual Anisocytosis (manual) Puncture Site pCO2 pO2 HCO3 ABG pH ABG Total CO2 ABG O2 Saturation ABG Base Excess ABG Hemoglobin ABG Carboxyhemoglobin POC ABG HHb (Measured) ABG Methemoglobin Bereket Test A-a O2 Difference Respiratory Index Hgb O2 Saturation Vent Mode Mechanical Rate FiO2 Tidal Volume PEEP Sodium 138 Potassium 4.7 Chloride 98 Carbon Dioxide 30 Anion Gap 12 BUN 17 Creatinine 0.3 L Est GFR ( Amer) > 60 Est GFR (Non-Af Amer) > 60 POC Glucose (mg/dL) 113 H Random Glucose 139 H Calcium 8.0 L Phosphorus 2.2 L Magnesium 1.9 Total Bilirubin 0.5 AST 32 ALT 25 Alkaline Phosphatase 129 H Total Protein 7.1 Albumin 3.4 L Globulin 3.8 Albumin/Globulin Ratio 0.9 L Radiology Impressions: Radiology Impressions Chest X-Ray 03/10/18 06:00 IMPRESSION: Persistent opacity at left base. Improving opacity at right base. Possible subsegmental atelectasis at right base. Small bilateral pleural effusion. Lines and tubes unchanged. Fingerstick Blood Sugar Results: 140 Results Reviewed to Date: Yes Review of Systems - Review of Systems Systems not reviewed;Unavailable: Intubated Critical Care Progress Note - Ventilator Checklist Head of Bed 30 Degrees: Yes Daily Sedation Vacation: Yes Daily Assessment of Readiness to Wean: Yes Daily Spontaneous Breathing Trial: Yes PUD Prophalyxis: Yes DVT Prophylaxis: Yes Oral Care with Chlorhexidine Gluconate {CHG}: Yes - Vent Settings TIDAL VOLUME:: 450 RESP RATE:: 20 FIO2:: 50 PEEP:: 5 - Extremities/Vascular Does the Patient have a Central Venous Catheter?: Yes Insertion Site: Internal Jugular Vein Does the Patient need a Central Venous Catheter?: Yes Does the Patient have a Simmons Catheter?: Yes Does the Patient need a Simmons Catheter?: Yes Catheter Insertion Criteria: Need for accurate measurement of output in critically ill patient - Restraints Justification for Restraints: High risk for self extubation, High risk for removing IV access - Prophylaxis GI Prophylaxis GI: PPI - Prophylaxis DVT Prophylaxis DVT: Lovenox Assessment/Plan - Assessment and Plan (Free Text) Assessment: 72yo M. PMHx COPD, Alzheimer's, CHF, arthritis. recent hospitalizaion for cholelithiasis and pneumonia. Discharged home receiving IV abx. presents back with worsening pneumonia, and progression into septic shock. Intubated in field at home. On ABG found to have hypercanpeic resp failure with leukocytosis. Neuro: On precedex drip; Alert and responsive to verbal and tactile stimuli CV: on levo drip, 1 x midodrine; midodrine prn Pulm: ET tube; Vent settings (450/20/5/50%); Duoneb; Methylprednisolone GI: On tube feeds (pulmocare) Renal: Fludrocortisone; Albumin x 1; Electrolytes stable ID: Micafungin/Meropenem (+ESBL and yeast species) DVT ppx: Lovenox GI ppx: Protonix On tube feeds PGY-1 [facility] d/w Dr. Galarza
[2018-03-10 17:58] LABS: OSMOLALITY,URINE 320 mosm/kg (300-1000)
--- NOTE | 2018-03-10 19:46 | CP.PCM.PN ---
Subjective - Date & Time of Evaluation Date of Evaluation: 03/10/18 Time of Evaluation: 19:45 - Subjective Subjective: On ventilator. on vasopressors ON FLORINEF LESS TACHYCARDIA ON NGT FEEDS. ROS; NA. LABS ; WBC IMPROVING BLOOD CULTURES 03/04/18 -VE GROWTH TO DATE. CXR 03/10/18-extensive opacity lower half the left long. Minimal obesity right base possible subsequent atelectasis. No new infiltrate. Objective - Vital Signs/Intake and Output Vital Signs (last 24 hours): Temp Pulse Resp BP Pulse Ox 97.8 F 69 20 123/69 100 03/10/18 16:00 03/10/18 19:00 03/10/18 19:00 03/10/18 18:09 03/10/18 19:00 Intake and Output: 03/10/18 03/11/18 18:59 06:59 Intake Total 1846.5 35 Output Total 1300 Balance 546.5 35 - Medications Medications: Current Medications Acetaminophen (Tylenol 650mg/20.3ml Solution Ud) 650 mg NG Q6 PRN PRN Reason: Fever >100.4 F Last Admin: 03/07/18 05:29 Dose: 650 mg Albuterol/Ipratropium (Duoneb 3 Mg/0.5 Mg (3 Ml) Ud) 3 ml INH RQ6 VELMA Last Admin: 03/10/18 13:46 Dose: 3 ml Enoxaparin Sodium (Lovenox) 30 mg SC DAILY VELMA Last Admin: 03/10/18 09:15 Dose: 30 mg Fludrocortisone Acetate (Florinef) 0.1 mg PO DAILY VELMA Last Admin: 03/10/18 11:35 Dose: 0.1 mg Dexmedetomidine HCl 200 mcg/ (Sodium Chloride) 50 mls @ 2.77 mls/hr IV TITR PRN; Protocol PRN Reason: Agitation Last Admin: 03/10/18 19:24 Dose: 0.49 mcg/kg/hr, 6.9 mls/hr Micafungin Sodium 100 mg/ (Sodium Chloride) 100 mls @ 100 mls/hr IV Q24H VELMA; Protocol Last Admin: 03/10/18 00:10 Dose: 100 mls/hr Meropenem 500 mg/ Sodium (Chloride) 100 mls @ 100 mls/hr IVPB Q8H VELMA; Protocol Last Admin: 03/10/18 17:00 Dose: 100 mls/hr Norepinephrine Bitartrate 4 mg (/ Dextrose) 254 mls @ 15.24 mls/hr IV .[id number] PRN; Protocol PRN Reason: TITRATE PER MD ORDER Last Titration: 03/10/18 15:00 Dose: 2 mcg/min, 7.62 mls/hr Methylprednisolone (Solu-Medrol) 20 mg IVP DAILY [facility] Last Admin: 03/10/18 10:50 Dose: Not Given Midodrine (Proamatine) 5 mg PO TID PRN PRN Reason: Low Blood Pressure Pantoprazole Sodium (Protonix Susp) 40 mg PO 0600 [facility] Last Admin: 03/10/18 05:09 Dose: 40 mg - Labs Labs: 03/10/18 05:35 03/10/18 05:35 - Constitutional Appears: No Acute Distress, Cachectic, Chronically Ill - Head Exam Head Exam: NORMAL INSPECTION - Eye Exam Eye Exam: PERRL - ENT Exam ENT Exam: Normal Oropharynx - Neck Exam Neck Exam: Normal Inspection - Respiratory Exam Respiratory Exam: Decreased Breath Sounds, Rhonchi (B/L) - Cardiovascular Exam Cardiovascular Exam: Tachycardia, REGULAR RHYTHM, +S1, +S2 - GI/Abdominal Exam GI & Abdominal Exam: Soft, Normal Bowel Sounds - Extremities Exam Extremities Exam: absent: Calf Tenderness, Pedal Edema - Neurological Exam Neurological Exam: Awake, CN II-XII Intact - Psychiatric Exam Psychiatric exam: Flat Affect - Skin Skin Exam: Normal Color, Warm Assessment and Plan (1) Sepsis associated hypotension Status: Acute (2) Respiratory failure requiring intubation Status: Acute (3) Altered mental status Status: Acute (4) Pneumonia Status: Acute (5) Abdominal pain Status: Acute (6) Cholelithiases Status: Acute - Assessment and Plan (Free Text) Plan: CONTINUE IV MERREM 500MG IVPB Q8HRLY 03/04/18 CONTINUE IV MYCAFUNGIN 100MG IV PB Q 24 HRLY 03/04/18. PULMONARY TOILET. OFF IV VANCOMYCIN . MONITOR RENAL FUNCTION PER PULMONARY. PROGNOSIS GUARDED.
[2018-03-11] MEDS: Micafungin 100 MG in Sodium Chloride 0.9% 100 ML IV SCH (00:58)
[2018-03-11] MEDS: Meropenem 500 MG in Sodium Chloride 0.9% 100 ML IVPB SCH ×3 (00:59→17:53)
[2018-03-11] MEDS: Dexmedetomidine Hydrochloride 200 MCG in Sodium Chloride 0.9% 48 ML IV PRN ×3 (01:01→17:53)
--- NOTE | 2018-03-11 01:07 | PN ---
DATE: 03/10/2018 FOLLOWUP RENAL CONSULTATION LOCATION: The patient is located in ICU bed 8. REASON FOR FOLLOWUP: Polyuria, electrolyte imbalance, respiratory failure, and pneumonia. SUBJECTIVE: Mr. Carlos Lawler is a 72-year-old elderly male with a history of emphysema, ex-smoker, acute cholecystitis and bronchial pneumonia who was recently discharged home and came back the next day with altered mental status and respiratory failure, intubated. The patient is being treated for bilateral pneumonia, left more than the right. The patient is more alert, awake, and on ventilator, want to extubate but able to tolerate CPAP as per the RN this morning after two to three hours. Also, the patient became hypotensive after holding Levophed. The patient was placed back on Levophed about 4 mcg per minute. The patient is stable this morning during my rounds and following commands, awake, on ventilator, not in distress. PHYSICAL EXAMINATION: VITAL SIGNS: This morning, blood pressure 118/64, pulse 77, respirations about 34, saturation 100%, and temperature is 97.5. Height 5 feet 7 inches. Weight is 119 pounds. GENERAL: Mr. Lawler is a 72-year-old elderly male, moderately built, moderately nourished, not in acute distress. HEENT: Pupils are normal and reactive to light and accommodation. Conjunctivae pink. Sclerae anicteric. Tongue is moist. Trachea is midline. No thyroid enlargement. Intubated, on ventilator. LUNGS: Symmetric on both sides. Bilateral breath sounds present. Decreased breath sounds on the left base. CARDIOVASCULAR SYSTEM: [place] at the fifth intercostal space, midclavicular line. S1 and S2 audible. No murmur or gallop. ABDOMEN: Normal in appearance. Soft, tympanitic. No guarding. No rigidity. No hepatosplenomegaly. CENTRAL NERVOUS SYSTEM: The patient is alert, awake, oriented x2. Sensory and motor system is within normal limits. EXTREMITIES: No cyanosis, no clubbing, no edema. I's and O's in the last 24 hours: Intake is 3611 mL and output is 2265 and positive 1.34 L. In the last 12 hours, intake is 2044 and output is 1630 mL. LABORATORY DATA: Include as follows as of 03/10/2018: WBC 12.4, hemoglobin 9.4, hematocrit is 28.7, platelets 476, neutrophils 97, lymph is 3, and monos 5. ABG: The pH of 7.47, pCO2 of 49, pO2 of 178, bicarb is 33.3, and saturation 99.4. Vent settings, AC 20, tidal volume 450, FiO2 of 50%, PEEP of 5. Sodium 138, potassium 4.7, chloride 98, CO2 of 30, BUN 17, creatinine 0.3, glucose 139, calcium is 8, phosphorus is 2.2, and magnesium 1.9. Total bili 0.5, AST 32, ALT 25, alkaline phosphatase 129, total protein 7.1, albumin 3.4. His urine osmolality 320 mL, urine sodium is 75, urine potassium is 28.7, urine glucose is less than 20, urine urea is 280 mg/dL. ASSESSMENT AND PLAN: In summary, Mr. Lawler is a 72-year-old elderly male with history of emphysema, ex-smoker and is status post acute cholecystitis, is being treated for respiratory failure, bilateral pneumonia, polyuria, and electrolyte imbalance. 1. Polyuria secondary to osmotic diuresis, initially electrolyte in juice and now with mixed electrolyte and nonelectrolyte. 2. Electrolyte imbalance. Continue to supplement magnesium, phosphorus and potassium as needed. 3. Bilateral pneumonia. 4. Respiratory failure. Continue intravenous antibiotics as per Infectious Disease recommendations. Case discussed with escalator service mechanic, Dr. Desmond Galarza, regarding polyuria. Continue his current medications, Precedex, DuoNeb inhaler, Florinef, Lovenox, also meropenem, micafungin, norepinephrine, midodrine, Protonix, Solu-Medrol, and Tylenol. The urine output is improving. We will follow with you. Thank you for allowing me to participate in your patient's care. Edwige Sanchez MD
[2018-03-11] MEDS: Albuterol-Ipratrop 3 mg / 0.5 (3 ml) UD INH SCH ×4 (02:56→19:58)
[2018-03-11] MEDS: Pantoprazole 40 mg Susp UD PO SCH (05:52)
[2018-03-11 06:22] LABS: BASO % 0.1 % (0.0-2.0); HEMOGLOBIN 9.1 g/dL (12.0-18.0); LYMPH # 0.4 K/uL (1.0-4.3); LYMPH % 3.9 % (20.0-40.0); MEAN CELL VOLUME 89.6 fL (80.0-94.0); MEAN CORPUSCULAR HEMOGLOBIN 29.9 pg (27.0-31.0); MEAN CORPUSCULAR HGB CONC 33.4 g/dL (33.0-37.0); MEAN PLATELET VOLUME 8.1 fL (7.2-11.7); MONO # 0.6 K/uL (0.0-0.8); MONO % 6.4 % (0.0-10.0); NEUT # 8.4 K/uL (1.8-7.0); NEUT % 89.6 % (50.0-75.0); PLATELET COUNT 474 K/uL (130-400); RBC 3.03 Mil/uL (4.40-5.90); RED CELL DISTRIBUTION WIDTH 14.9 % (11.5-14.5); WHITE BLOOD COUNT 9.4 K/uL (4.8-10.8)
[2018-03-11 06:38] LABS: ARTERIAL BLOOD GAS HCO3 33.1 mmol/L (21-28); ARTERIAL BLOOD GAS HEMOGLOBIN 8.7 g/dL (11.7-17.4); ARTERIAL BLOOD GAS O2 SAT 100.8 % (95-98); ARTERIAL BLOOD GAS PCO2 47 mm/Hg (35-45); ARTERIAL BLOOD GAS PH 7.48 (7.35-7.45); ARTERIAL BLOOD GAS PO2 169 mm/Hg (80-100); ARTERIAL BLOOD GAS TCO2 36.4 mmol/L (22-28)
[2018-03-11 06:44] LABS: ALB/GLOB RATIO 0.9 (1.0-2.1); ALBUMIN 3.3 g/dL (3.5-5.0); ALT/SGPT 36 U/L (21-72); AST/SGOT 73 U/L (17-59); BLOOD UREA NITROGEN 24 mg/dL (9-20); CALCIUM 8.4 mg/dl (8.6-10.4); GFR NON-AFRICAN AMERICAN > 60
--- NOTE | 2018-03-11 08:28 | RAD ---
Date of service: 03/11/2018 HISTORY: intubated COMPARISON: Portable chest 03/10/2018. FINDINGS: LUNGS: Endotracheal and nasogastric tubes are not significantly changed in position as well as right PICC. Mild increase in mid to inferior left-sided pulmonary infiltrate. Diffuse underlying interstitial pulmonary disease again identified with no definite right-sided infiltrate appreciable. Trace fluid minor fissure. Borderline left pleural effusion question. No pneumothorax bilaterally. PLEURA: As above. CARDIOVASCULAR: No aortic atherosclerotic calcification present. Normal cardiac size. No pulmonary vascular congestion. OSSEOUS STRUCTURES: Status post ORIF proximal bilateral humeri reiterated. VISUALIZED UPPER ABDOMEN: Normal. OTHER FINDINGS: None. IMPRESSION: Limited increase in mid to inferior left-sided pulmonary infiltrate with remaining lung [place] 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
[2018-03-11 08:41] LABS: LYMPHOCYTE 3 % (20-40); MONOCYTE 3 % (0-10); NEUTROPHIL 93 % (50-75); PLATELET ESTIMATE INCREASED (NORMAL); REACTIVE LYMPHOCYTES 1 % (0-0); TOTAL CELLS COUNTED 100
[2018-03-11 08:42] LABS: ANISOCYTOSIS SLIGHT; HYPOCHROMIC SLIGHT; POLYCHROMIC SLIGHT; TOXIC GRANULATION PRESENT
[2018-03-11 08:46] LABS: LARGE PLATELETS PRESENT
[2018-03-11] MEDS: MethylPREDNISolone 40 mg Vial IVP SCH (09:50)
[2018-03-11] MEDS: Enoxaparin 30 mg Syringe SC SCH (09:51)
[2018-03-11] MEDS ORDERED: Potassium Chloride 20 mEq/15 ml LIQ UD PO ONE (10:31)
--- NOTE | 2018-03-11 14:21 | CP.CCUPN ---
<Lizzie Jernigan - Last Filed: 03/11/18 14:27> CCU Subjective - Physician Review Subjective (Free Text): 03/11/18 14:20 ICU Progress Note for Dr. Jara Patient seen and examined at bedside this morning. Due to patient's condition ROS unable to be obtained. CCU Objective - Vital Signs / Intake & Output Intake and Output (Last 8hrs): Intake & Output 03/10/18 03/11/18 03/11/18 22:59 06:59 14:59 Intake Total 952.5 577.8 213.8 Output Total 830 370 90 Balance 122.5 207.8 123.8 Weight 108 lb 14.534 oz Intake: IV 121 76 120 Intake, IV Amount 111.5 81.8 13.8 RIGHT PICC Y PORT 55.2 55.2 13.8 RIGHT PICC Y PORT #2 56.3 26.6 Tube Feeding 320 320 80 Other 400 100 Output: Urine 830 370 90 Urethral (Simmons) 830 370 90 - Physical Exam Physical Exam Limitations: Positive for: Other (Intubated) Head: Positive for: Atraumatic, Normocephalic Pupils: Positive for: PERRL Extroacular Muscles: Positive for: EOMI Conjunctiva: Positive for: Normal Ears: Positive for: Normal Mouth: Positive for: Dry, Other (ORAL ETT) Neck: Negative for: JVD Respiratory/Chest: Positive for: Good Air Exchange, Rhonchi. Negative for: Respiratory Distress Cardiovascular: Positive for: Normal S1, S2. Negative for: Murmurs, Irregular Rhythm, Tachycardic, Bradycardic Abdomen: Positive for: Normal Bowel Sounds. Negative for: Tenderness, Distention, Peritoneal Signs Upper Extremity: Positive for: Normal Inspection. Negative for: Cyanosis, Edema Lower Extremity: Positive for: Normal Inspection. Negative for: Edema Skin: Positive for: Dry, Normal Color. Negative for: Erythematous Psychiatric: Positive for: Alert - Medications Active Medications: Active Medications Generic Name Dose Route Start Last Admin Trade Name Freq PRN Reason Stop Dose Admin Acetaminophen 650 mg 03/01/18 21:09 03/07/18 05:29 Tylenol 650mg/20.3ml Solution Ud NG 650 mg Q6 PRN Administration Fever >100.4 F Albuterol/Ipratropium 3 ml 03/02/18 14:00 03/11/18 13:43 Duoneb 3 Mg/0.5 Mg (3 Ml) Ud INH 3 ml RQ6 VELMA Administration Enoxaparin Sodium 30 mg 03/07/18 11:00 03/11/18 09:51 Lovenox SC 30 mg DAILY VELMA Administration Fludrocortisone Acetate 0.1 mg 03/10/18 11:15 03/11/18 09:57 Florinef PO 0.1 mg DAILY VELMA Administration Dexmedetomidine HCl 200 mcg/ 50 mls @ 2.77 mls/hr 03/03/18 07:40 03/11/18 09:40 Sodium Chloride IV 0.49 mcg/kg/hr TITR PRN 6.9 mls/hr Agitation Administration Protocol 0.2 MCG/KG/HR Micafungin Sodium 100 mg/ 100 mls @ 100 mls/hr 03/04/18 01:00 03/11/18 00:58 Sodium Chloride IV 100 mls/hr Q24H VELMA Administration Protocol Meropenem 500 mg/ Sodium 100 mls @ 100 mls/hr 03/04/18 01:15 03/11/18 09:51 Chloride IVPB 100 mls/hr Q8H VELMA Administration Protocol Norepinephrine Bitartrate 4 mg 254 mls @ 15.24 mls/hr 03/06/18 17:55 03/11/18 09:57 / Dextrose IV 1 mcg/min .[id number] PRN 3.81 mls/hr TITRATE PER MD ORDER Administration Protocol 4 MCG/MIN Methylprednisolone 20 mg 03/10/18 10:30 03/11/18 09:50 Solu-Medrol IVP 20 mg DAILY VELMA Administration Midodrine 5 mg 03/10/18 10:39 Proamatine PO TID PRN Low Blood Pressure Midodrine 5 mg 03/11/18 14:00 03/11/18 11:10 Proamatine PO 5 mg TID VELMA Administration Pantoprazole Sodium 40 mg 03/08/18 06:00 03/11/18 05:52 Protonix Susp PO 40 mg 0600 VELMA Administration - Patient Studies Lab Studies: Lab Studies 03/11/18 03/11/18 03/11/18 Range/Units 06:17 06:17 05:34 WBC 9.4 (4.8-10.8) K/uL RBC 3.03 L (4.40-5.90) Mil/uL Hgb 9.1 L (12.0-18.0) g/dL Hct 27.2 L (35.0-51.0) % MCV 89.6 (80.0-94.0) fL MCH 29.9 (27.0-31.0) pg MCHC 33.4 (33.0-37.0) g/dL RDW 14.9 H (11.5-14.5) % Plt Count 474 H (130-400) K/uL MPV 8.1 (7.2-11.7) fL Neut % (Auto) 89.6 H (50.0-75.0) % Lymph % (Auto) 3.9 L (20.0-40.0) % [place] % (Auto) 6.4 (0.0-10.0) % Eos % (Auto) 0.0 (0.0-4.0) % Baso % (Auto) 0.1 (0.0-2.0) % Neut # (Auto) 8.4 H (1.8-7.0) K/uL Lymph # (Auto) 0.4 L (1.0-4.3) K/uL [place] # (Auto) 0.6 (0.0-0.8) K/uL Eos # (Auto) 0.0 (0.0-0.7) K/uL Baso # (Auto) 0.0 (0.0-0.2) K/uL Neutrophils % (Manual) 93 H (50-75) % Lymphocytes % (Manual) 3 L (20-40) % Reactive Lymphs % 1 H (0-0) % Monocytes % (Manual) 3 (0-10) % Toxic Granulation Present Platelet Estimate Increased H (NORMAL) Large Platelets Present Polychromasia Slight Hypochromasia (manual) Slight Anisocytosis (manual) Slight Puncture Site pCO2 (35-45) mm/Hg pO2 (80-100) mm/Hg HCO3 (21-28) mmol/L ABG pH (7.35-7.45) ABG Total CO2 (22-28) mmol/L ABG O2 Saturation (95-98) % ABG Base Excess (-2.0-3.0) mmol/L ABG Hemoglobin (11.7-17.4) g/dL ABG Carboxyhemoglobin (0.5-1.5) % POC ABG HHb (Measured) (0.0-5.0) % ABG Methemoglobin (0.0-3.0) % [place] Test A-a O2 Difference mm/Hg Respiratory Index Hgb O2 Saturation (95.0-98.0) % Vent Mode Mechanical Rate FiO2 % Tidal Volume PEEP Sodium 135 (132-148) mmol/L Potassium 3.7 (3.6-5.2) mmol/L Chloride 94 L (98-107) mmol/L Carbon Dioxide 36 H (22-30) mmol/L Anion Gap 9 L (10-20) BUN 24 H (9-20) mg/dL Creatinine 0.3 L (0.8-1.5) mg/dL Est GFR ( Amer) > 60 Est GFR (Non-Af Amer) > 60 POC Glucose (mg/dL) 122 H (65-110) mg/dL Random Glucose 122 H (75-110) mg/dL Serum Osmolality (272-300) mosm/kg Calcium 8.4 L (8.6-10.4) mg/dl Phosphorus 2.7 (2.5-4.5) mg/dL Magnesium 1.9 (1.6-2.3) mg/dL Total Bilirubin 0.6 (0.2-1.3) mg/dL AST 73 H D (17-59) U/L ALT 36 (21-72) U/L Alkaline Phosphatase 128 H (38-126) U/L Total Protein 6.8 (6.3-8.3) g/dL Albumin 3.3 L (3.5-5.0) g/dL Globulin 3.6 (2.2-3.9) gm/dL Albumin/Globulin Ratio 0.9 L (1.0-2.1) Urine Osmolality (300-1000) mosm/kg Ur Random Sodium mmol/L Ur Random Potassium mmol/L Ur Random Urea Nitrogn mg/dL Ur Random Glucose mg/dL 03/11/18 03/11/18 03/10/18 Range/Units 05:28 00:05 17:50 WBC (4.8-10.8) K/uL RBC (4.40-5.90) Mil/uL Hgb (12.0-18.0) g/dL Hct (35.0-51.0) % MCV (80.0-94.0) fL MCH (27.0-31.0) pg MCHC (33.0-37.0) g/dL RDW (11.5-14.5) % Plt Count (130-400) K/uL MPV (7.2-11.7) fL Neut % (Auto) (50.0-75.0) % Lymph % (Auto) (20.0-40.0) % [place] % (Auto) (0.0-10.0) % Eos % (Auto) (0.0-4.0) % Baso % (Auto) (0.0-2.0) % Neut # (Auto) (1.8-7.0) K/uL Lymph # (Auto) (1.0-4.3) K/uL [place] # (Auto) (0.0-0.8) K/uL Eos # (Auto) (0.0-0.7) K/uL Baso # (Auto) (0.0-0.2) K/uL Neutrophils % (Manual) (50-75) % Lymphocytes % (Manual) (20-40) % Reactive Lymphs % (0-0) % Monocytes % (Manual) (0-10) % Toxic Granulation Platelet Estimate (NORMAL) Large Platelets Polychromasia Hypochromasia (manual) Anisocytosis (manual) Puncture Site L brac pCO2 47 H (35-45) mm/Hg pO2 169 H (80-100) mm/Hg HCO3 33.1 H (21-28) mmol/L ABG pH 7.48 H (7.35-7.45) ABG Total CO2 36.4 H (22-28) mmol/L ABG O2 Saturation 100.8 H (95-98) % ABG Base Excess 10.4 H (-2.0-3.0) mmol/L ABG Hemoglobin 8.7 L (11.7-17.4) g/dL ABG Carboxyhemoglobin 2.5 H (0.5-1.5) % POC ABG HHb (Measured) -0.8 L (0.0-5.0) % ABG Methemoglobin 0.1 (0.0-3.0) % [place] Test Na A-a O2 Difference 129.0 mm/Hg Respiratory Index 0.8 Hgb O2 Saturation 98.2 H (95.0-98.0) % Vent Mode Cpap Mechanical Rate 20 FiO2 50.0 % Tidal Volume 450 PEEP 5 Sodium (132-148) mmol/L Potassium (3.6-5.2) mmol/L Chloride (98-107) mmol/L Carbon Dioxide (22-30) mmol/L Anion Gap (10-20) BUN (9-20) mg/dL Creatinine (0.8-1.5) mg/dL Est GFR ( Amer) Est GFR (Non-Af Amer) POC Glucose (mg/dL) 131 H 119 H (65-110) mg/dL Random Glucose (75-110) mg/dL Serum Osmolality (272-300) mosm/kg Calcium (8.6-10.4) mg/dl Phosphorus (2.5-4.5) mg/dL Magnesium (1.6-2.3) mg/dL Total Bilirubin (0.2-1.3) mg/dL AST (17-59) U/L ALT (21-72) U/L Alkaline Phosphatase (38-126) U/L Total Protein (6.3-8.3) g/dL Albumin (3.5-5.0) g/dL Globulin (2.2-3.9) gm/dL Albumin/Globulin Ratio (1.0-2.1) Urine Osmolality (300-1000) mosm/kg Ur Random Sodium mmol/L Ur Random Potassium mmol/L Ur Random Urea Nitrogn mg/dL Ur Random Glucose mg/dL 03/10/18 03/10/18 Range/Units 17:05 17:05 WBC (4.8-10.8) K/uL RBC (4.40-5.90) Mil/uL Hgb (12.0-18.0) g/dL Hct (35.0-51.0) % MCV (80.0-94.0) fL MCH (27.0-31.0) pg MCHC (33.0-37.0) g/dL RDW (11.5-14.5) % Plt Count (130-400) K/uL MPV (7.2-11.7) fL Neut % (Auto) (50.0-75.0) % Lymph % (Auto) (20.0-40.0) % [place] % (Auto) (0.0-10.0) % Eos % (Auto) (0.0-4.0) % Baso % (Auto) (0.0-2.0) % Neut # (Auto) (1.8-7.0) K/uL Lymph # (Auto) (1.0-4.3) K/uL [place] # (Auto) (0.0-0.8) K/uL Eos # (Auto) (0.0-0.7) K/uL Baso # (Auto) (0.0-0.2) K/uL Neutrophils % (Manual) (50-75) % Lymphocytes % (Manual) (20-40) % Reactive Lymphs % (0-0) % Monocytes % (Manual) (0-10) % Toxic Granulation Platelet Estimate (NORMAL) Large Platelets Polychromasia Hypochromasia (manual) Anisocytosis (manual) Puncture Site pCO2 (35-45) mm/Hg pO2 (80-100) mm/Hg HCO3 (21-28) mmol/L ABG pH (7.35-7.45) ABG Total CO2 (22-28) mmol/L ABG O2 Saturation (95-98) % ABG Base Excess (-2.0-3.0) mmol/L ABG Hemoglobin (11.7-17.4) g/dL ABG Carboxyhemoglobin (0.5-1.5) % POC ABG HHb (Measured) (0.0-5.0) % ABG Methemoglobin (0.0-3.0) % [place] Test A-a O2 Difference mm/Hg Respiratory Index Hgb O2 Saturation (95.0-98.0) % Vent Mode Mechanical Rate FiO2 % Tidal Volume PEEP Sodium (132-148) mmol/L Potassium (3.6-5.2) mmol/L Chloride (98-107) mmol/L Carbon Dioxide (22-30) mmol/L Anion Gap (10-20) BUN (9-20) mg/dL Creatinine (0.8-1.5) mg/dL Est GFR ( Amer) Est GFR (Non-Af Amer) POC Glucose (mg/dL) (65-110) mg/dL Random Glucose (75-110) mg/dL Serum Osmolality 292 (272-300) mosm/kg Calcium (8.6-10.4) mg/dl Phosphorus (2.5-4.5) mg/dL Magnesium (1.6-2.3) mg/dL Total Bilirubin (0.2-1.3) mg/dL AST (17-59) U/L ALT (21-72) U/L Alkaline Phosphatase (38-126) U/L Total Protein (6.3-8.3) g/dL Albumin (3.5-5.0) g/dL Globulin (2.2-3.9) gm/dL Albumin/Globulin Ratio (1.0-2.1) Urine Osmolality 320 (300-1000) mosm/kg Ur Random Sodium 75 mmol/L Ur Random Potassium 28.7 mmol/L Ur Random Urea Nitrogn 280 mg/dL Ur Random Glucose < 20 mg/dL Laboratory Results - last 24 hr 03/10/18 03/10/18 03/10/18 17:05 17:05 17:50 WBC RBC Hgb Hct MCV MCH MCHC RDW Plt Count MPV Neut % (Auto) Lymph % (Auto) [place] % (Auto) Eos % (Auto) Baso % (Auto) Neut # (Auto) Lymph # (Auto) [place] # (Auto) Eos # (Auto) Baso # (Auto) Neutrophils % (Manual) Lymphocytes % (Manual) Reactive Lymphs % Monocytes % (Manual) Toxic Granulation Platelet Estimate Large Platelets Polychromasia Hypochromasia (manual) Anisocytosis (manual) Puncture Site pCO2 pO2 HCO3 ABG pH ABG Total CO2 ABG O2 Saturation ABG Base Excess ABG Hemoglobin ABG Carboxyhemoglobin POC ABG HHb (Measured) ABG Methemoglobin [place] Test A-a O2 Difference Respiratory Index Hgb O2 Saturation Vent Mode Mechanical Rate FiO2 Tidal Volume PEEP Sodium Potassium Chloride Carbon Dioxide Anion Gap BUN Creatinine Est GFR ( Amer) Est GFR (Non-Af Amer) POC Glucose (mg/dL) 119 H Random Glucose Serum Osmolality 292 Calcium Phosphorus Magnesium Total Bilirubin AST ALT Alkaline Phosphatase Total Protein Albumin Globulin Albumin/Globulin Ratio Urine Osmolality 320 Ur Random Sodium 75 Ur Random Potassium 28.7 Ur Random Urea Nitrogn 280 Ur Random Glucose < 20 03/11/18 03/11/18 03/11/18 00:05 05:28 05:34 WBC RBC Hgb Hct MCV MCH MCHC RDW Plt Count MPV Neut % (Auto) Lymph % (Auto) [place] % (Auto) Eos % (Auto) Baso % (Auto) Neut # (Auto) Lymph # (Auto) [place] # (Auto) Eos # (Auto) Baso # (Auto) Neutrophils % (Manual) Lymphocytes % (Manual) Reactive Lymphs % Monocytes % (Manual) Toxic Granulation Platelet Estimate Large Platelets Polychromasia Hypochromasia (manual) Anisocytosis (manual) Puncture Site L brac pCO2 47 H pO2 169 H HCO3 33.1 H ABG pH 7.48 H ABG Total CO2 36.4 H ABG O2 Saturation 100.8 H ABG Base Excess 10.4 H ABG Hemoglobin 8.7 L ABG Carboxyhemoglobin 2.5 H POC ABG HHb (Measured) -0.8 L ABG Methemoglobin 0.1 [place] Test Na A-a O2 Difference 129.0 Respiratory Index 0.8 Hgb O2 Saturation 98.2 H Vent Mode Cpap Mechanical Rate 20 FiO2 50.0 Tidal Volume 450 PEEP 5 Sodium Potassium Chloride Carbon Dioxide Anion Gap BUN Creatinine Est GFR ( Amer) Est GFR (Non-Af Amer) POC Glucose (mg/dL) 131 H 122 H Random Glucose Serum Osmolality Calcium Phosphorus Magnesium Total Bilirubin AST ALT Alkaline Phosphatase Total Protein Albumin Globulin Albumin/Globulin Ratio Urine Osmolality Ur Random Sodium Ur Random Potassium Ur Random Urea Nitrogn Ur Random Glucose 03/11/18 03/11/18 06:17 06:17 WBC 9.4 RBC 3.03 L Hgb 9.1 L Hct 27.2 L MCV 89.6 MCH 29.9 MCHC 33.4 RDW 14.9 H Plt Count 474 H MPV 8.1 Neut % (Auto) 89.6 H Lymph % (Auto) 3.9 L [place] % (Auto) 6.4 Eos % (Auto) 0.0 Baso % (Auto) 0.1 Neut # (Auto) 8.4 H Lymph # (Auto) 0.4 L [place] # (Auto) 0.6 Eos # (Auto) 0.0 Baso # (Auto) 0.0 Neutrophils % (Manual) 93 H Lymphocytes % (Manual) 3 L Reactive Lymphs % 1 H Monocytes % (Manual) 3 Toxic Granulation Present Platelet Estimate Increased H Large Platelets Present Polychromasia Slight Hypochromasia (manual) Slight Anisocytosis (manual) Slight Puncture Site pCO2 pO2 HCO3 ABG pH ABG Total CO2 ABG O2 Saturation ABG Base Excess ABG Hemoglobin ABG Carboxyhemoglobin POC ABG HHb (Measured) ABG Methemoglobin [place] Test A-a O2 Difference Respiratory Index Hgb O2 Saturation Vent Mode Mechanical Rate FiO2 Tidal Volume PEEP Sodium 135 Potassium 3.7 Chloride 94 L Carbon Dioxide 36 H Anion Gap 9 L BUN 24 H Creatinine 0.3 L Est GFR ( Amer) > 60 Est GFR (Non-Af Amer) > 60 POC Glucose (mg/dL) Random Glucose 122 H Serum Osmolality Calcium 8.4 L Phosphorus 2.7 Magnesium 1.9 Total Bilirubin 0.6 AST 73 H D ALT 36 Alkaline Phosphatase 128 H Total Protein 6.8 Albumin 3.3 L Globulin 3.6 Albumin/Globulin Ratio 0.9 L Urine Osmolality Ur Random Sodium Ur Random Potassium Ur Random Urea Nitrogn Ur Random Glucose Radiology Impressions: Radiology Impressions Chest X-Ray 03/11/18 07:00 IMPRESSION: Limited increase in mid to inferior left-sided pulmonary infiltrate with remaining lung thornton 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 Fingerstick Blood Sugar Results: 122 Review of Systems - Review of Systems Systems not reviewed;Unavailable: Intubated Assessment/Plan - Assessment and Plan (Free Text) Assessment: 72yo male w/ PMHx COPD, Alzheimer's, CHF, arthritis had hospitalizaion for chol elithiasis and pneumonia. Discharged home receiving IV abx. Presents back with worsening pneumonia, and progression into septic shock. Intubated at home. On ABG found to have hypercanpeic resp failure with leukocytosis. Neuro: -alert, awake -on precedex drip CV: -on levo drip -midodrine drip PRN Pulm: -ET tube; Vent settings (450/20/5/50%); -scheduled Duonebs -solumedrol 20 mg IV daily scheduled GI: -tube feeds (pulmocare) -no acute issues Renal: -Fludrocortisone -Albumin x 1 -Electrolytes stable; trend CMP qAM daily -Urine osmolality within normal limits -nephrology Dr. Garber following, appreciate recs ID: -Micafungin started 03/04 (+yeast species) -Meropenem started 03/04 (+ESBL) -tylenol NG PRN for fever >100.4 -Dr. Dasilva, ID following, appreciate recs DVT ppx: Protonix 40 mg PO daily GI ppx: Lovenox 30 mg sq daily Diet: pulmocare tube feeds case discussed with Dr. Marek Jernigan PGY1 <Nino Jara S - Last Filed: 03/11/18 17:03> CCU Subjective - Physician Review Critical Care Time Spent (in minutes): 40 CCU Objective - Vital Signs / Intake & Output Intake and Output (Last 8hrs): Intake & Output 03/11/18 03/11/18 03/11/18 06:59 14:59 22:59 Intake Total 577.8 213.8 30 Output Total 370 90 Balance 207.8 123.8 30 Weight 108 lb 14.534 oz Intake: IV 76 120 30 Intake, IV Amount 81.8 13.8 RIGHT PICC Y PORT 55.2 13.8 RIGHT PICC Y PORT #2 26.6 Tube Feeding 320 80 Other 100 Output: Urine 370 90 Urethral (Simmons) 370 90 - Medications Active Medications: Active Medications Generic Name Dose Route Start Last Admin Trade Name Freq PRN Reason Stop Dose Admin Acetaminophen 650 mg 03/01/18 21:09 03/07/18 05:29 Tylenol 650mg/20.3ml Solution Ud NG 650 mg Q6 PRN Administration Fever >100.4 F Albuterol/Ipratropium 3 ml 03/02/18 14:00 03/11/18 13:43 Duoneb 3 Mg/0.5 Mg (3 Ml) Ud INH 3 ml RQ6 VELAM Administration Enoxaparin Sodium 30 mg 03/07/18 11:00 03/11/18 09:51 Lovenox SC 30 mg DAILY VELMA Administration Fludrocortisone Acetate 0.1 mg 03/10/18 11:15 03/11/18 09:57 Florinef PO 0.1 mg DAILY VELMA Administration Dexmedetomidine HCl 200 mcg/ 50 mls @ 2.77 mls/hr 03/03/18 07:40 03/11/18 09:40 Sodium Chloride IV 0.49 mcg/kg/hr TITR PRN 6.9 mls/hr Agitation Administration Protocol 0.2 MCG/KG/HR Micafungin Sodium 100 mg/ 100 mls @ 100 mls/hr 03/04/18 01:00 03/11/18 00:58 Sodium Chloride IV 100 mls/hr Q24H VELMA Administration Protocol Meropenem 500 mg/ Sodium 100 mls @ 100 mls/hr 03/04/18 01:15 03/11/18 09:51 Chloride IVPB 100 mls/hr Q8H VELMA Administration Protocol Norepinephrine Bitartrate 4 mg 254 mls @ 15.24 mls/hr 03/06/18 17:55 03/11/18 15:01 / Dextrose IV 1.5 mcg/min .[id number] PRN 5.72 mls/hr TITRATE PER MD ORDER Titration Protocol 4 MCG/MIN Methylprednisolone 20 mg 03/10/18 10:30 03/11/18 09:50 Solu-Medrol IVP 20 mg DAILY VELMA Administration Midodrine 5 mg 03/11/18 14:00 03/11/18 14:56 Proamatine PO 5 mg TID VELMA Administration Pantoprazole Sodium 40 mg 03/08/18 06:00 03/11/18 05:52 Protonix Susp PO 40 mg 0600 VELMA Administration - Patient Studies Lab Studies: Lab Studies 03/11/18 03/11/18 03/11/18 Range/Units 06:17 06:17 05:34 WBC 9.4 (4.8-10.8) K/uL RBC 3.03 L (4.40-5.90) Mil/uL Hgb 9.1 L (12.0-18.0) g/dL Hct 27.2 L (35.0-51.0) % MCV 89.6 (80.0-94.0) fL MCH 29.9 (27.0-31.0) pg MCHC 33.4 (33.0-37.0) g/dL RDW 14.9 H (11.5-14.5) % Plt Count 474 H (130-400) K/uL MPV 8.1 (7.2-11.7) fL Neut % (Auto) 89.6 H (50.0-75.0) % Lymph % (Auto) 3.9 L (20.0-40.0) % [place] % (Auto) 6.4 (0.0-10.0) % Eos % (Auto) 0.0 (0.0-4.0) % Baso % (Auto) 0.1 (0.0-2.0) % Neut # (Auto) 8.4 H (1.8-7.0) K/uL Lymph # (Auto) 0.4 L (1.0-4.3) K/uL [place] # (Auto) 0.6 (0.0-0.8) K/uL Eos # (Auto) 0.0 (0.0-0.7) K/uL Baso # (Auto) 0.0 (0.0-0.2) K/uL Neutrophils % (Manual) 93 H (50-75) % Lymphocytes % (Manual) 3 L (20-40) % Reactive Lymphs % 1 H (0-0) % Monocytes % (Manual) 3 (0-10) % Toxic Granulation Present Platelet Estimate Increased H (NORMAL) Large Platelets Present Polychromasia Slight Hypochromasia (manual) Slight Anisocytosis (manual) Slight Puncture Site pCO2 (35-45) mm/Hg pO2 (80-100) mm/Hg HCO3 (21-28) mmol/L ABG pH (7.35-7.45) ABG Total CO2 (22-28) mmol/L ABG O2 Saturation (95-98) % ABG Base Excess (-2.0-3.0) mmol/L ABG Hemoglobin (11.7-17.4) g/dL ABG Carboxyhemoglobin (0.5-1.5) % POC ABG HHb (Measured) (0.0-5.0) % ABG Methemoglobin (0.0-3.0) % [place] Test A-a O2 Difference mm/Hg Respiratory Index Hgb O2 Saturation (95.0-98.0) % Vent Mode Mechanical Rate FiO2 % Tidal Volume PEEP Sodium 135 (132-148) mmol/L Potassium 3.7 (3.6-5.2) mmol/L Chloride 94 L (98-107) mmol/L Carbon Dioxide 36 H (22-30) mmol/L Anion Gap 9 L (10-20) BUN 24 H (9-20) mg/dL Creatinine 0.3 L (0.8-1.5) mg/dL Est GFR ( Amer) > 60 Est GFR (Non-Af Amer) > 60 POC Glucose (mg/dL) 122 H (65-110) mg/dL Random Glucose 122 H (75-110) mg/dL Serum Osmolality (272-300) mosm/kg Calcium 8.4 L (8.6-10.4) mg/dl Phosphorus 2.7 (2.5-4.5) mg/dL Magnesium 1.9 (1.6-2.3) mg/dL Total Bilirubin 0.6 (0.2-1.3) mg/dL AST 73 H D (17-59) U/L ALT 36 (21-72) U/L Alkaline Phosphatase 128 H (38-126) U/L Total Protein 6.8 (6.3-8.3) g/dL Albumin 3.3 L (3.5-5.0) g/dL Globulin 3.6 (2.2-3.9) gm/dL Albumin/Globulin Ratio 0.9 L (1.0-2.1) Urine Osmolality (300-1000) mosm/kg Ur Random Sodium mmol/L Ur Random Potassium mmol/L Ur Random Urea Nitrogn mg/dL Ur Random Glucose mg/dL 03/11/18 03/11/18 03/10/18 Range/Units 05:28 00:05 17:50 WBC (4.8-10.8) K/uL RBC (4.40-5.90) Mil/uL Hgb (12.0-18.0) g/dL Hct (35.0-51.0) % MCV (80.0-94.0) fL MCH (27.0-31.0) pg MCHC (33.0-37.0) g/dL RDW (11.5-14.5) % Plt Count (130-400) K/uL MPV (7.2-11.7) fL Neut % (Auto) (50.0-75.0) % Lymph % (Auto) (20.0-40.0) % [place] % (Auto) (0.0-10.0) % Eos % (Auto) (0.0-4.0) % Baso % (Auto) (0.0-2.0) % Neut # (Auto) (1.8-7.0) K/uL Lymph # (Auto) (1.0-4.3) K/uL [place] # (Auto) (0.0-0.8) K/uL Eos # (Auto) (0.0-0.7) K/uL Baso # (Auto) (0.0-0.2) K/uL Neutrophils % (Manual) (50-75) % Lymphocytes % (Manual) (20-40) % Reactive Lymphs % (0-0) % Monocytes % (Manual) (0-10) % Toxic Granulation Platelet Estimate (NORMAL) Large Platelets Polychromasia Hypochromasia (manual) Anisocytosis (manual) Puncture Site L brac pCO2 47 H (35-45) mm/Hg pO2 169 H (80-100) mm/Hg HCO3 33.1 H (21-28) mmol/L ABG pH 7.48 H (7.35-7.45) ABG Total CO2 36.4 H (22-28) mmol/L ABG O2 Saturation 100.8 H (95-98) % ABG Base Excess 10.4 H (-2.0-3.0) mmol/L ABG Hemoglobin 8.7 L (11.7-17.4) g/dL ABG Carboxyhemoglobin 2.5 H (0.5-1.5) % POC ABG HHb (Measured) -0.8 L (0.0-5.0) % ABG Methemoglobin 0.1 (0.0-3.0) % [place] Test Na A-a O2 Difference 129.0 mm/Hg Respiratory Index 0.8 Hgb O2 Saturation 98.2 H (95.0-98.0) % Vent Mode Cpap Mechanical Rate 20 FiO2 50.0 % Tidal Volume 450 PEEP 5 Sodium (132-148) mmol/L Potassium (3.6-5.2) mmol/L Chloride (98-107) mmol/L Carbon Dioxide (22-30) mmol/L Anion Gap (10-20) BUN (9-20) mg/dL Creatinine (0.8-1.5) mg/dL Est GFR ( Amer) Est GFR (Non-Af Amer) POC Glucose (mg/dL) 131 H 119 H (65-110) mg/dL Random Glucose (75-110) mg/dL Serum Osmolality (272-300) mosm/kg Calcium (8.6-10.4) mg/dl Phosphorus (2.5-4.5) mg/dL Magnesium (1.6-2.3) mg/dL Total Bilirubin (0.2-1.3) mg/dL AST (17-59) U/L ALT (21-72) U/L Alkaline Phosphatase (38-126) U/L Total Protein (6.3-8.3) g/dL Albumin (3.5-5.0) g/dL Globulin (2.2-3.9) gm/dL Albumin/Globulin Ratio (1.0-2.1) Urine Osmolality (300-1000) mosm/kg Ur Random Sodium mmol/L Ur Random Potassium mmol/L Ur Random Urea Nitrogn mg/dL Ur Random Glucose mg/dL 03/10/18 03/10/18 Range/Units 17:05 17:05 WBC (4.8-10.8) K/uL RBC (4.40-5.90) Mil/uL Hgb (12.0-18.0) g/dL Hct (35.0-51.0) % MCV (80.0-94.0) fL MCH (27.0-31.0) pg MCHC (33.0-37.0) g/dL RDW (11.5-14.5) % Plt Count (130-400) K/uL MPV (7.2-11.7) fL Neut % (Auto) (50.0-75.0) % Lymph % (Auto) (20.0-40.0) % [place] % (Auto) (0.0-10.0) % Eos % (Auto) (0.0-4.0) % Baso % (Auto) (0.0-2.0) % Neut # (Auto) (1.8-7.0) K/uL Lymph # (Auto) (1.0-4.3) K/uL [place] # (Auto) (0.0-0.8) K/uL Eos # (Auto) (0.0-0.7) K/uL Baso # (Auto) (0.0-0.2) K/uL Neutrophils % (Manual) (50-75) % Lymphocytes % (Manual) (20-40) % Reactive Lymphs % (0-0) % Monocytes % (Manual) (0-10) % Toxic Granulation Platelet Estimate (NORMAL) Large Platelets Polychromasia Hypochromasia (manual) Anisocytosis (manual) Puncture Site pCO2 (35-45) mm/Hg pO2 (80-100) mm/Hg HCO3 (21-28) mmol/L ABG pH (7.35-7.45) ABG Total CO2 (22-28) mmol/L ABG O2 Saturation (95-98) % ABG Base Excess (-2.0-3.0) mmol/L ABG Hemoglobin (11.7-17.4) g/dL ABG Carboxyhemoglobin (0.5-1.5) % POC ABG HHb (Measured) (0.0-5.0) % ABG Methemoglobin (0.0-3.0) % [place] Test A-a O2 Difference mm/Hg Respiratory Index Hgb O2 Saturation (95.0-98.0) % Vent Mode Mechanical Rate FiO2 % Tidal Volume PEEP Sodium (132-148) mmol/L Potassium (3.6-5.2) mmol/L Chloride (98-107) mmol/L Carbon Dioxide (22-30) mmol/L Anion Gap (10-20) BUN (9-20) mg/dL Creatinine (0.8-1.5) mg/dL Est GFR ( Amer) Est GFR (Non-Af Amer) POC Glucose (mg/dL) (65-110) mg/dL Random Glucose (75-110) mg/dL Serum Osmolality 292 (272-300) mosm/kg Calcium (8.6-10.4) mg/dl Phosphorus (2.5-4.5) mg/dL Magnesium (1.6-2.3) mg/dL Total Bilirubin (0.2-1.3) mg/dL AST (17-59) U/L ALT (21-72) U/L Alkaline Phosphatase (38-126) U/L Total Protein (6.3-8.3) g/dL Albumin (3.5-5.0) g/dL Globulin (2.2-3.9) gm/dL Albumin/Globulin Ratio (1.0-2.1) Urine Osmolality 320 (300-1000) mosm/kg Ur Random Sodium 75 mmol/L Ur Random Potassium 28.7 mmol/L Ur Random Urea Nitrogn 280 mg/dL Ur Random Glucose < 20 mg/dL Laboratory Results - last 24 hr 03/10/18 03/10/18 03/10/18 17:05 17:05 17:50 WBC RBC Hgb Hct MCV MCH MCHC RDW Plt Count MPV Neut % (Auto) Lymph % (Auto) [place] % (Auto) Eos % (Auto) Baso % (Auto) Neut # (Auto) Lymph # (Auto) [place] # (Auto) Eos # (Auto) Baso # (Auto) Neutrophils % (Manual) Lymphocytes % (Manual) Reactive Lymphs % Monocytes % (Manual) Toxic Granulation Platelet Estimate Large Platelets Polychromasia Hypochromasia (manual) Anisocytosis (manual) Puncture Site pCO2 pO2 HCO3 ABG pH ABG Total CO2 ABG O2 Saturation ABG Base Excess ABG Hemoglobin ABG Carboxyhemoglobin POC ABG HHb (Measured) ABG Methemoglobin [place] Test A-a O2 Difference Respiratory Index Hgb O2 Saturation Vent Mode Mechanical Rate FiO2 Tidal Volume PEEP Sodium Potassium Chloride Carbon Dioxide Anion Gap BUN Creatinine Est GFR ( Amer) Est GFR (Non-Af Amer) POC Glucose (mg/dL) 119 H Random Glucose Serum Osmolality 292 Calcium Phosphorus Magnesium Total Bilirubin AST ALT Alkaline Phosphatase Total Protein Albumin Globulin Albumin/Globulin Ratio Urine Osmolality 320 Ur Random Sodium 75 Ur Random Potassium 28.7 Ur Random Urea Nitrogn 280 Ur Random Glucose < 20 03/11/18 03/11/18 03/11/18 00:05 05:28 05:34 WBC RBC Hgb Hct MCV MCH MCHC RDW Plt Count MPV Neut % (Auto) Lymph % (Auto) [place] % (Auto) Eos % (Auto) Baso % (Auto) Neut # (Auto) Lymph # (Auto) [place] # (Auto) Eos # (Auto) Baso # (Auto) Neutrophils % (Manual) Lymphocytes % (Manual) Reactive Lymphs % Monocytes % (Manual) Toxic Granulation Platelet Estimate Large Platelets Polychromasia Hypochromasia (manual) Anisocytosis (manual) Puncture Site L brac pCO2 47 H pO2 169 H HCO3 33.1 H ABG pH 7.48 H ABG Total CO2 36.4 H ABG O2 Saturation 100.8 H ABG Base Excess 10.4 H ABG Hemoglobin 8.7 L ABG Carboxyhemoglobin 2.5 H POC ABG HHb (Measured) -0.8 L ABG Methemoglobin 0.1 [place] Test Na A-a O2 Difference 129.0 Respiratory Index 0.8 Hgb O2 Saturation 98.2 H Vent Mode Cpap Mechanical Rate 20 FiO2 50.0 Tidal Volume 450 PEEP 5 Sodium Potassium Chloride Carbon Dioxide Anion Gap BUN Creatinine Est GFR ( Amer) Est GFR (Non-Af Amer) POC Glucose (mg/dL) 131 H 122 H Random Glucose Serum Osmolality Calcium Phosphorus Magnesium Total Bilirubin AST ALT Alkaline Phosphatase Total Protein Albumin Globulin Albumin/Globulin Ratio Urine Osmolality Ur Random Sodium Ur Random Potassium Ur Random Urea Nitrogn Ur Random Glucose 03/11/18 03/11/18 06:17 06:17 WBC 9.4 RBC 3.03 L Hgb 9.1 L Hct 27.2 L MCV 89.6 MCH 29.9 MCHC 33.4 RDW 14.9 H Plt Count 474 H MPV 8.1 Neut % (Auto) 89.6 H Lymph % (Auto) 3.9 L [place] % (Auto) 6.4 Eos % (Auto) 0.0 Baso % (Auto) 0.1 Neut # (Auto) 8.4 H Lymph # (Auto) 0.4 L [place] # (Auto) 0.6 Eos # (Auto) 0.0 Baso # (Auto) 0.0 Neutrophils % (Manual) 93 H Lymphocytes % (Manual) 3 L Reactive Lymphs % 1 H Monocytes % (Manual) 3 Toxic Granulation Present Platelet Estimate Increased H Large Platelets Present Polychromasia Slight Hypochromasia (manual) Slight Anisocytosis (manual) Slight Puncture Site pCO2 pO2 HCO3 ABG pH ABG Total CO2 ABG O2 Saturation ABG Base Excess ABG Hemoglobin ABG Carboxyhemoglobin POC ABG HHb (Measured) ABG Methemoglobin [place] Test A-a O2 Difference Respiratory Index Hgb O2 Saturation Vent Mode Mechanical Rate FiO2 Tidal Volume PEEP Sodium 135 Potassium 3.7 Chloride 94 L Carbon Dioxide 36 H Anion Gap 9 L BUN 24 H Creatinine 0.3 L Est GFR ( Amer) > 60 Est GFR (Non-Af Amer) > 60 POC Glucose (mg/dL) Random Glucose 122 H Serum Osmolality Calcium 8.4 L Phosphorus 2.7 Magnesium 1.9 Total Bilirubin 0.6 AST 73 H D ALT 36 Alkaline Phosphatase 128 H Total Protein 6.8 Albumin 3.3 L Globulin 3.6 Albumin/Globulin Ratio 0.9 L Urine Osmolality Ur Random Sodium Ur Random Potassium Ur Random Urea Nitrogn Ur Random Glucose Radiology Impressions: Radiology Impressions Chest X-Ray 03/11/18 07:00 IMPRESSION: Limited increase in mid to inferior left-sided pulmonary infiltrate with remaining lung [place] 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 Attending/Attestation - Attestation I have personally seen and examined this patient.: Yes I have fully participated in the care of the patient.: Yes I have reviewed all pertinent clinical information: Yes Notes (Text): 03/11/18 17:02 patient seen and examined Intubated on ventilatory support Patient is awake and responsive Started on Levophed for hypotension Not tolerating weaning Continue present care
--- NOTE | 2018-03-11 15:06 | CP.PCM.PN ---
Subjective - Date & Time of Evaluation Date of Evaluation: 03/11/18 Time of Evaluation: 15:05 - Subjective Subjective: tPatient currently remains intubated on a respirator. Blood pressure is in the low side on vasopressin Urine output is adequate Chest x-ray shows chronic persistent infiltrate questionable chronic Continue ICU protocol management Objective - Vital Signs/Intake and Output Vital Signs (last 24 hours): Temp Pulse Resp BP Pulse Ox 97.4 F L 84 22 76/43 L 100 03/11/18 08:00 03/11/18 08:15 03/11/18 08:15 03/11/18 09:57 03/11/18 08:15 Intake and Output: 03/11/18 03/11/18 11:59 23:59 Intake Total 740.9 30 Output Total 360 Balance 380.9 30 - Medications Medications: Current Medications Acetaminophen (Tylenol 650mg/20.3ml Solution Ud) 650 mg NG Q6 PRN PRN Reason: Fever >100.4 F Last Admin: 03/07/18 05:29 Dose: 650 mg Albuterol/Ipratropium (Duoneb 3 Mg/0.5 Mg (3 Ml) Ud) 3 ml INH RQ6 [facility]MA Last Admin: 03/11/18 13:43 Dose: 3 ml Enoxaparin Sodium (Lovenox) 30 mg SC DAILY [facility]MA Last Admin: 03/11/18 09:51 Dose: 30 mg Fludrocortisone Acetate (Florinef) 0.1 mg PO DAILY [facility] Last Admin: 03/11/18 09:57 Dose: 0.1 mg Dexmedetomidine HCl 200 mcg/ (Sodium Chloride) 50 mls @ 2.77 mls/hr IV TITR PRN; Protocol PRN Reason: Agitation Last Admin: 03/11/18 09:40 Dose: 0.49 mcg/kg/hr, 6.9 mls/hr Micafungin Sodium 100 mg/ (Sodium Chloride) 100 mls @ 100 mls/hr IV Q24H [facility]MA; Protocol Last Admin: 03/11/18 00:58 Dose: 100 mls/hr Meropenem 500 mg/ Sodium (Chloride) 100 mls @ 100 mls/hr IVPB Q8H [facility]MA; Protocol Last Admin: 03/11/18 09:51 Dose: 100 mls/hr Norepinephrine Bitartrate 4 mg (/ Dextrose) 254 mls @ 15.24 mls/hr IV .[id number] PRN; Protocol PRN Reason: TITRATE PER MD ORDER Last Titration: 03/11/18 15:01 Dose: 1.5 mcg/min, 5.72 mls/hr Methylprednisolone (Solu-Medrol) 20 mg IVP DAILY [facility] Last Admin: 03/11/18 09:50 Dose: 20 mg Midodrine (Proamatine) 5 mg PO TID [facility] Last Admin: 03/11/18 14:56 Dose: 5 mg Pantoprazole Sodium (Protonix Susp) 40 mg PO 0600 [facility] Last Admin: 03/11/18 05:52 Dose: 40 mg - Labs Labs: 03/11/18 06:17 03/11/18 06:17
[2018-03-12] MEDS: Dexmedetomidine Hydrochloride 200 MCG in Sodium Chloride 0.9% 48 ML IV PRN (00:18)
[2018-03-12] MEDS: Micafungin 100 MG in Sodium Chloride 0.9% 100 ML IV SCH (00:19)
[2018-03-12] MEDS: Albuterol-Ipratrop 3 mg / 0.5 (3 ml) UD INH SCH ×2 (01:09→07:53)
[2018-03-12] MEDS: Meropenem 500 MG in Sodium Chloride 0.9% 100 ML IVPB SCH ×3 (01:28→18:26)
[2018-03-12] MEDS: Pantoprazole 40 mg Susp UD PO SCH (05:05)
[2018-03-12 06:09] LABS: ARTERIAL BLOOD GAS HCO3 33.8 mmol/L (21-28); ARTERIAL BLOOD GAS O2 SAT 97.4 % (95-98); ARTERIAL BLOOD GAS PCO2 45 mm/Hg (35-45); ARTERIAL BLOOD GAS PH 7.51 (7.35-7.45); ARTERIAL BLOOD GAS PO2 68 mm/Hg (80-100); ARTERIAL BLOOD GAS TCO2 37.3 mmol/L (22-28)
[2018-03-12 06:19] LABS: BASO % 0.1 % (0.0-2.0); HEMOGLOBIN 8.9 g/dL (12.0-18.0); LYMPH # 0.8 K/uL (1.0-4.3); MEAN CELL VOLUME 89.5 fL (80.0-94.0); MEAN CORPUSCULAR HEMOGLOBIN 29.9 pg (27.0-31.0); MEAN CORPUSCULAR HGB CONC 33.4 g/dL (33.0-37.0); MEAN PLATELET VOLUME 7.9 fL (7.2-11.7); MONO # 0.8 K/uL (0.0-0.8); MONO % 7.2 % (0.0-10.0); NEUT # 9.9 K/uL (1.8-7.0); NEUT % 85.7 % (50.0-75.0); PLATELET COUNT 536 K/uL (130-400); RBC 2.99 Mil/uL (4.40-5.90); RED CELL DISTRIBUTION WIDTH 15.1 % (11.5-14.5); WHITE BLOOD COUNT 11.6 K/uL (4.8-10.8)
[2018-03-12 06:36] LABS: ALB/GLOB RATIO 0.9 (1.0-2.1); ALBUMIN 3.2 g/dL (3.5-5.0); ALT/SGPT 44 U/L (21-72); AST/SGOT 49 U/L (17-59); BLOOD UREA NITROGEN 25 mg/dL (9-20); CALCIUM 8.1 mg/dl (8.6-10.4); GFR NON-AFRICAN AMERICAN > 60
[2018-03-12] MEDS ORDERED: Potassium Chloride 20 mEq/15 ml LIQ UD PO ONE (07:50)
[2018-03-12 08:55] LABS: ANISOCYTOSIS SLIGHT; HYPOCHROMIC SLIGHT; LYMPHOCYTE 7 % (20-40); MONOCYTE 9 % (0-10); NEUTROPHIL 84 % (50-75); PLATELET ESTIMATE INCREASED (NORMAL); POIKILOCYTOSIS SLIGHT; TOTAL CELLS COUNTED 100
[2018-03-12 08:56] LABS: LARGE PLATELETS PRESENT; TARGET CELLS SLIGHT
[2018-03-12] MEDS: Enoxaparin 30 mg Syringe SC SCH (10:40)
[2018-03-12] MEDS: MethylPREDNISolone 40 mg Vial IVP SCH (10:41)
--- NOTE | 2018-03-12 11:01 | CP.CCUPN ---
<Merry Farias - Last Filed: 03/12/18 10:58> CCU Subjective - Physician Review Subjective (Free Text): Critical Care Progress Note for Dr. Jara's service Patient seen and examined at bedside. Patient extubated today. Patient wants to eat/drink food pending swallow eval. Patient denies fevers, chills, chest pain, sob, n/v, constipation or diarrhea, and dysuria. Critical Care Time Spent (in minutes): 35 CCU Objective - Vital Signs / Intake & Output Intake and Output (Last 8hrs): Intake & Output 03/11/18 03/12/18 03/12/18 22:59 06:59 14:59 Intake Total 673.4 583.3 174 Output Total 310 470 Balance 363.4 113.3 174 Weight 121 lb 4.068 oz Intake: IV 119 50 174 Intake, IV Amount 204.4 113.3 Left Forearm 100 RIGHT PICC Y PORT 55.2 55.2 RIGHT PICC Y PORT #2 49.2 58.1 Tube Feeding 320 320 Other 30 100 Output: Urine 310 470 Urethral (Simmons) 310 470 - Physical Exam Head: Positive for: Atraumatic, Normocephalic Pupils: Positive for: PERRL Extroacular Muscles: Positive for: EOMI Conjunctiva: Positive for: Normal Ears: Positive for: Normal Mouth: Positive for: Dry, Other (ORAL ETT) Neck: Negative for: JVD Respiratory/Chest: Positive for: Clear to Auscultation, Good Air Exchange. Negative for: Respiratory Distress, Accessory Muscle Use Cardiovascular: Positive for: Normal S1, S2, Tachycardic. Negative for: Murmurs, Irregular Rhythm, Bradycardic Abdomen: Positive for: Normal Bowel Sounds. Negative for: Tenderness, Distention, Peritoneal Signs Upper Extremity: Positive for: Normal Inspection. Negative for: Cyanosis, Edema Lower Extremity: Positive for: Normal Inspection. Negative for: Edema Neurological: Positive for: GCS=15 Skin: Positive for: Dry, Normal Color. Negative for: Erythematous Psychiatric: Positive for: Alert - Medications Active Medications: Active Medications Generic Name Dose Route Start Last Admin Trade Name Freq PRN Reason Stop Dose Admin Acetaminophen 650 mg 03/01/18 21:09 03/07/18 05:29 Tylenol 650mg/20.3ml Solution Ud NG 650 mg Q6 PRN Administration Fever >100.4 F Enoxaparin Sodium 30 mg 03/07/18 11:00 03/12/18 10:40 Lovenox SC 30 mg DAILY VELMA Administration Fludrocortisone Acetate 0.1 mg 03/10/18 11:15 03/12/18 10:43 Florinef PO 0.1 mg DAILY VELMA Administration Dexmedetomidine HCl 200 mcg/ 50 mls @ 2.77 mls/hr 03/03/18 07:40 03/12/18 10:42 Sodium Chloride IV 0 mcg/kg/hr TITR PRN 0 mls/hr Agitation Titration Protocol 0.2 MCG/KG/HR Micafungin Sodium 100 mg/ 100 mls @ 100 mls/hr 03/04/18 01:00 03/12/18 00:19 Sodium Chloride IV 100 mls/hr Q24H VELMA Administration Protocol Meropenem 500 mg/ Sodium 100 mls @ 100 mls/hr 03/04/18 01:15 03/12/18 10:15 Chloride IVPB 100 mls/hr Q8H VELMA Administration Protocol Norepinephrine Bitartrate 4 mg 254 mls @ 15.24 mls/hr 03/06/18 17:55 03/12/18 09:00 / Dextrose IV 0 mcg/min .[id number] PRN 0 mls/hr TITRATE PER MD ORDER Titration Protocol 4 MCG/MIN Methylprednisolone 20 mg 03/10/18 10:30 03/12/18 10:41 Solu-Medrol IVP 20 mg DAILY VELMA Administration Midodrine 5 mg 03/11/18 14:00 03/12/18 10:40 Proamatine PO 5 mg TID VELMA Administration Pantoprazole Sodium 40 mg 03/08/18 06:00 03/12/18 05:05 Protonix Susp PO 40 mg 0600 VELMA Administration - Patient Studies Lab Studies: Lab Studies 03/12/18 03/12/18 03/12/18 Range/Units 06:13 06:13 05:26 WBC 11.6 H (4.8-10.8) K/uL RBC 2.99 L (4.40-5.90) Mil/uL Hgb 8.9 L (12.0-18.0) g/dL Hct 26.8 L (35.0-51.0) % MCV 89.5 (80.0-94.0) fL MCH 29.9 (27.0-31.0) pg MCHC 33.4 (33.0-37.0) g/dL RDW 15.1 H (11.5-14.5) % Plt Count 536 H (130-400) K/uL MPV 7.9 (7.2-11.7) fL Neut % (Auto) 85.7 H (50.0-75.0) % Lymph % (Auto) 7.0 L (20.0-40.0) % [place] % (Auto) 7.2 (0.0-10.0) % Eos % (Auto) 0.0 (0.0-4.0) % Baso % (Auto) 0.1 (0.0-2.0) % Neut # (Auto) 9.9 H (1.8-7.0) K/uL Lymph # (Auto) 0.8 L (1.0-4.3) K/uL [place] # (Auto) 0.8 (0.0-0.8) K/uL Eos # (Auto) 0.0 (0.0-0.7) K/uL Baso # (Auto) 0.0 (0.0-0.2) K/uL Neutrophils % (Manual) 84 H (50-75) % Lymphocytes % (Manual) 7 L (20-40) % Monocytes % (Manual) 9 (0-10) % Platelet Estimate Increased H (NORMAL) Large Platelets Present Hypochromasia (manual) Slight Poikilocytosis (manual Slight Anisocytosis (manual) Slight Target Cells Slight Puncture Site L brac pCO2 45 (35-45) mm/Hg pO2 68 L (80-100) mm/Hg HCO3 33.8 H (21-28) mmol/L ABG pH 7.51 H (7.35-7.45) ABG Total CO2 37.3 H (22-28) mmol/L ABG O2 Saturation 97.4 (95-98) % ABG Base Excess 11.4 H (-2.0-3.0) mmol/L [place] Test Na ABG Potassium 3.4 L (3.6-5.2) mmol/L A-a O2 Difference 90.0 mm/Hg Respiratory Index 1.3 Sodium 134 139.0 (132-148) mmol/l Chloride 95 L 102.0 (98-107) mmol/L Glucose 102 (75-110) mg/dl Lactate 1.9 (0.7-2.1) mmol/L Vent Mode Prvc Mechanical Rate 15 FiO2 30.0 % Tidal Volume 450 PEEP 5 Potassium 3.4 L (3.6-5.2) mmol/L Carbon Dioxide 33 H (22-30) mmol/L Anion Gap 10 (10-20) BUN 25 H (9-20) mg/dL Creatinine 0.3 L (0.8-1.5) mg/dL Est GFR ( Amer) > 60 Est GFR (Non-Af Amer) > 60 Random Glucose 111 H (75-110) mg/dL Calcium 8.1 L (8.6-10.4) mg/dl Phosphorus 2.6 (2.5-4.5) mg/dL Magnesium 1.9 (1.6-2.3) mg/dL Total Bilirubin 0.6 (0.2-1.3) mg/dL AST 49 (17-59) U/L ALT 44 (21-72) U/L Alkaline Phosphatase 166 H D (38-126) U/L Total Protein 6.7 (6.3-8.3) g/dL Albumin 3.2 L (3.5-5.0) g/dL Globulin 3.5 (2.2-3.9) gm/dL Albumin/Globulin Ratio 0.9 L (1.0-2.1) Arterial Blood Potassium 3.4 L (3.6-5.2) mmol/L Laboratory Results - last 24 hr 03/12/18 03/12/18 03/12/18 05:26 06:13 06:13 WBC 11.6 H RBC 2.99 L Hgb 8.9 L Hct 26.8 L MCV 89.5 MCH 29.9 MCHC 33.4 RDW 15.1 H Plt Count 536 H MPV 7.9 Neut % (Auto) 85.7 H Lymph % (Auto) 7.0 L [place] % (Auto) 7.2 Eos % (Auto) 0.0 Baso % (Auto) 0.1 Neut # (Auto) 9.9 H Lymph # (Auto) 0.8 L [place] # (Auto) 0.8 Eos # (Auto) 0.0 Baso # (Auto) 0.0 Neutrophils % (Manual) 84 H Lymphocytes % (Manual) 7 L Monocytes % (Manual) 9 Platelet Estimate Increased H Large Platelets Present Hypochromasia (manual) Slight Poikilocytosis (manual Slight Anisocytosis (manual) Slight Target Cells Slight Puncture Site L brac pCO2 45 pO2 68 L HCO3 33.8 H ABG pH 7.51 H ABG Total CO2 37.3 H ABG O2 Saturation 97.4 ABG Base Excess 11.4 H [place] Test Na ABG Potassium 3.4 L A-a O2 Difference 90.0 Respiratory Index 1.3 Sodium 139.0 134 Chloride 102.0 95 L Glucose 102 Lactate 1.9 Vent Mode Prvc Mechanical Rate 15 FiO2 30.0 Tidal Volume 450 PEEP 5 Potassium 3.4 L Carbon Dioxide 33 H Anion Gap 10 BUN 25 H Creatinine 0.3 L Est GFR ( Amer) > 60 Est GFR (Non-Af Amer) > 60 Random Glucose 111 H Calcium 8.1 L Phosphorus 2.6 Magnesium 1.9 Total Bilirubin 0.6 AST 49 ALT 44 Alkaline Phosphatase 166 H D Total Protein 6.7 Albumin 3.2 L Globulin 3.5 Albumin/Globulin Ratio 0.9 L Arterial Blood Potassium 3.4 L Fingerstick Blood Sugar Results: 114 Review of Systems - Review of Systems Review of Systems: 12 point ROS obtained and noted in HPI Critical Care Progress Note - Restraints Justification for Restraints: High risk for removing IV access - Prophylaxis GI Prophylaxis GI: PPI - Prophylaxis DVT Prophylaxis DVT: Lovenox Assessment/Plan - Assessment and Plan (Free Text) Assessment: Patient is a 72 yo male w/PMH of Alzheimer, COPD, CHF, and arthritis admitted for hypercapnic resp failure. Intubated by EMS in field. Treated for PNA and hypercapnic respiratory failure. Positive cx for ESBL and yeast species. Extubated on 03/12 after 11 days of intubation. Neuro Awake alert, responsive to questions; Precedex not given Pulm + trach asp cx for ESBL, yeast species; [place] + Micafungin Solumedrol Extubated Swallowing eval pending CV Levophed not given Midodrine GI no active issues Protonix Endo Fludricortisone Renal KCl 20meq oral soln ID Meropenem Micafungin DVT ppx: Lovenox GI Ppx: Protonix PGY-1 [facility] Medical Management d/w Dr. Jara <Nino Jara S - Last Filed: 03/12/18 17:23> CCU Objective - Vital Signs / Intake & Output Vital Signs (Last 4 hours): Vital Signs Pulse Resp BP Pulse Ox 03/12/18 15:00 114 H 19 98 03/12/18 14:46 115 H 18 122/72 98 03/12/18 14:00 115 H 21 96 03/12/18 13:46 116 H 43 H 122/68 99 Intake and Output (Last 8hrs): Intake & Output 03/12/18 03/12/18 03/12/18 06:59 14:59 22:59 Intake Total 583.3 232.8 Output Total 470 310 0 Balance 113.3 -77.2 0 Weight 121 lb 4.068 oz Intake: IV 50 174 Intake, IV Amount 113.3 18.8 RIGHT PICC Y PORT 55.2 10.4 RIGHT PICC Y PORT #2 58.1 8.4 Tube Feeding 320 40 Other 100 Output: Urine 470 310 0 Urethral (Simmons) 470 310 Urine, Voided 0 0 - Medications Active Medications: Active Medications Generic Name Dose Route Start Last Admin Trade Name Freq PRN Reason Stop Dose Admin Acetaminophen 650 mg 03/01/18 21:09 03/07/18 05:29 Tylenol 650mg/20.3ml Solution Ud NG 650 mg Q6 PRN Administration Fever >100.4 F Enoxaparin Sodium 30 mg 03/07/18 11:00 03/12/18 10:40 Lovenox SC 30 mg DAILY VELMA Administration Fludrocortisone Acetate 0.1 mg 03/10/18 11:15 03/12/18 10:43 Florinef PO 0.1 mg DAILY VELMA Administration Dexmedetomidine HCl 200 mcg/ 50 mls @ 2.77 mls/hr 03/03/18 07:40 03/12/18 10:42 Sodium Chloride IV 0 mcg/kg/hr TITR PRN 0 mls/hr Agitation Titration Protocol 0.2 MCG/KG/HR Micafungin Sodium 100 mg/ 100 mls @ 100 mls/hr 03/04/18 01:00 03/12/18 00:19 Sodium Chloride IV 100 mls/hr Q24H VELMA Administration Protocol Meropenem 500 mg/ Sodium 100 mls @ 100 mls/hr 03/04/18 01:15 03/12/18 10:15 Chloride IVPB 100 mls/hr Q8H VELMA Administration Protocol Norepinephrine Bitartrate 4 mg 254 mls @ 15.24 mls/hr 03/06/18 17:55 03/12/18 09:00 / Dextrose IV 0 mcg/min .[id number] PRN 0 mls/hr TITRATE PER MD ORDER Titration Protocol 4 MCG/MIN Methylprednisolone 20 mg 03/10/18 10:30 03/12/18 10:41 Solu-Medrol IVP 20 mg DAILY VELMA Administration Midodrine 5 mg 03/11/18 14:00 03/12/18 13:43 Proamatine PO 5 mg TID VELMA Administration Pantoprazole Sodium 40 mg 03/08/18 06:00 03/12/18 05:05 Protonix Susp PO 40 mg 0600 VELMA Administration - Patient Studies Lab Studies: Lab Studies 03/12/18 03/12/18 03/12/18 Range/Units 12:08 06:13 06:13 WBC 11.6 H (4.8-10.8) K/uL RBC 2.99 L (4.40-5.90) Mil/uL Hgb 8.9 L (12.0-18.0) g/dL Hct 26.8 L (35.0-51.0) % MCV 89.5 (80.0-94.0) fL MCH 29.9 (27.0-31.0) pg MCHC 33.4 (33.0-37.0) g/dL RDW 15.1 H (11.5-14.5) % Plt Count 536 H (130-400) K/uL MPV 7.9 (7.2-11.7) fL Neut % (Auto) 85.7 H (50.0-75.0) % Lymph % (Auto) 7.0 L (20.0-40.0) % [place] % (Auto) 7.2 (0.0-10.0) % Eos % (Auto) 0.0 (0.0-4.0) % Baso % (Auto) 0.1 (0.0-2.0) % Neut # (Auto) 9.9 H (1.8-7.0) K/uL Lymph # (Auto) 0.8 L (1.0-4.3) K/uL [place] # (Auto) 0.8 (0.0-0.8) K/uL Eos # (Auto) 0.0 (0.0-0.7) K/uL Baso # (Auto) 0.0 (0.0-0.2) K/uL Neutrophils % (Manual) 84 H (50-75) % Lymphocytes % (Manual) 7 L (20-40) % Monocytes % (Manual) 9 (0-10) % Platelet Estimate Increased H (NORMAL) Large Platelets Present Hypochromasia (manual) Slight Poikilocytosis (manual Slight Anisocytosis (manual) Slight Target Cells Slight Puncture Site pCO2 (35-45) mm/Hg pO2 (80-100) mm/Hg HCO3 (21-28) mmol/L ABG pH (7.35-7.45) ABG Total CO2 (22-28) mmol/L ABG O2 Saturation (95-98) % ABG Base Excess (-2.0-3.0) mmol/L [place] Test ABG Potassium (3.6-5.2) mmol/L A-a O2 Difference mm/Hg Respiratory Index Sodium 134 (132-148) mmol/l Chloride 95 L (98-107) mmol/L Glucose (75-110) mg/dl Lactate (0.7-2.1) mmol/L Vent Mode Mechanical Rate FiO2 % Tidal Volume PEEP Potassium 3.4 L (3.6-5.2) mmol/L Carbon Dioxide 33 H (22-30) mmol/L Anion Gap 10 (10-20) BUN 25 H (9-20) mg/dL Creatinine 0.3 L (0.8-1.5) mg/dL Est GFR ( Amer) > 60 Est GFR (Non-Af Amer) > 60 POC Glucose (mg/dL) 105 (65-110) mg/dL Random Glucose 111 H (75-110) mg/dL Calcium 8.1 L (8.6-10.4) mg/dl Phosphorus 2.6 (2.5-4.5) mg/dL Magnesium 1.9 (1.6-2.3) mg/dL Total Bilirubin 0.6 (0.2-1.3) mg/dL AST 49 (17-59) U/L ALT 44 (21-72) U/L Alkaline Phosphatase 166 H D (38-126) U/L Total Protein 6.7 (6.3-8.3) g/dL Albumin 3.2 L (3.5-5.0) g/dL Globulin 3.5 (2.2-3.9) gm/dL Albumin/Globulin Ratio 0.9 L (1.0-2.1) Arterial Blood Potassium (3.6-5.2) mmol/L 03/12/18 03/12/18 03/11/18 Range/Units 05:26 05:17 23:56 WBC (4.8-10.8) K/uL RBC (4.40-5.90) Mil/uL Hgb (12.0-18.0) g/dL Hct (35.0-51.0) % MCV (80.0-94.0) fL MCH (27.0-31.0) pg MCHC (33.0-37.0) g/dL RDW (11.5-14.5) % Plt Count (130-400) K/uL MPV (7.2-11.7) fL Neut % (Auto) (50.0-75.0) % Lymph % (Auto) (20.0-40.0) % [place] % (Auto) (0.0-10.0) % Eos % (Auto) (0.0-4.0) % Baso % (Auto) (0.0-2.0) % Neut # (Auto) (1.8-7.0) K/uL Lymph # (Auto) (1.0-4.3) K/uL [place] # (Auto) (0.0-0.8) K/uL Eos # (Auto) (0.0-0.7) K/uL Baso # (Auto) (0.0-0.2) K/uL Neutrophils % (Manual) (50-75) % Lymphocytes % (Manual) (20-40) % Monocytes % (Manual) (0-10) % Platelet Estimate (NORMAL) Large Platelets Hypochromasia (manual) Poikilocytosis (manual Anisocytosis (manual) Target Cells Puncture Site L brac pCO2 45 (35-45) mm/Hg pO2 68 L (80-100) mm/Hg HCO3 33.8 H (21-28) mmol/L ABG pH 7.51 H (7.35-7.45) ABG Total CO2 37.3 H (22-28) mmol/L ABG O2 Saturation 97.4 (95-98) % ABG Base Excess 11.4 H (-2.0-3.0) mmol/L [place] Test Na ABG Potassium 3.4 L (3.6-5.2) mmol/L A-a O2 Difference 90.0 mm/Hg Respiratory Index 1.3 Sodium 139.0 (132-148) mmol/l Chloride 102.0 (98-107) mmol/L Glucose 102 (75-110) mg/dl Lactate 1.9 (0.7-2.1) mmol/L Vent Mode Prvc Mechanical Rate 15 FiO2 30.0 % Tidal Volume 450 PEEP 5 Potassium (3.6-5.2) mmol/L Carbon Dioxide (22-30) mmol/L Anion Gap (10-20) BUN (9-20) mg/dL Creatinine (0.8-1.5) mg/dL Est GFR ( Amer) Est GFR (Non-Af Amer) POC Glucose (mg/dL) 110 114 H (65-110) mg/dL Random Glucose (75-110) mg/dL Calcium (8.6-10.4) mg/dl Phosphorus (2.5-4.5) mg/dL Magnesium (1.6-2.3) mg/dL Total Bilirubin (0.2-1.3) mg/dL AST (17-59) U/L ALT (21-72) U/L Alkaline Phosphatase (38-126) U/L Total Protein (6.3-8.3) g/dL Albumin (3.5-5.0) g/dL Globulin (2.2-3.9) gm/dL Albumin/Globulin Ratio (1.0-2.1) Arterial Blood Potassium 3.4 L (3.6-5.2) mmol/L 03/11/18 03/11/18 Range/Units 17:50 11:42 WBC (4.8-10.8) K/uL RBC (4.40-5.90) Mil/uL Hgb (12.0-18.0) g/dL Hct (35.0-51.0) % MCV (80.0-94.0) fL MCH (27.0-31.0) pg MCHC (33.0-37.0) g/dL RDW (11.5-14.5) % Plt Count (130-400) K/uL MPV (7.2-11.7) fL Neut % (Auto) (50.0-75.0) % Lymph % (Auto) (20.0-40.0) % [place] % (Auto) (0.0-10.0) % Eos % (Auto) (0.0-4.0) % Baso % (Auto) (0.0-2.0) % Neut # (Auto) (1.8-7.0) K/uL Lymph # (Auto) (1.0-4.3) K/uL [place] # (Auto) (0.0-0.8) K/uL Eos # (Auto) (0.0-0.7) K/uL Baso # (Auto) (0.0-0.2) K/uL Neutrophils % (Manual) (50-75) % Lymphocytes % (Manual) (20-40) % Monocytes % (Manual) (0-10) % Platelet Estimate (NORMAL) Large Platelets Hypochromasia (manual) Poikilocytosis (manual Anisocytosis (manual) Target Cells Puncture Site pCO2 (35-45) mm/Hg pO2 (80-100) mm/Hg HCO3 (21-28) mmol/L ABG pH (7.35-7.45) ABG Total CO2 (22-28) mmol/L ABG O2 Saturation (95-98) % ABG Base Excess (-2.0-3.0) mmol/L [place] Test ABG Potassium (3.6-5.2) mmol/L A-a O2 Difference mm/Hg Respiratory Index Sodium (132-148) mmol/l Chloride (98-107) mmol/L Glucose (75-110) mg/dl Lactate (0.7-2.1) mmol/L Vent Mode Mechanical Rate FiO2 % Tidal Volume PEEP Potassium (3.6-5.2) mmol/L Carbon Dioxide (22-30) mmol/L Anion Gap (10-20) BUN (9-20) mg/dL Creatinine (0.8-1.5) mg/dL Est GFR ( Amer) Est GFR (Non-Af Amer) POC Glucose (mg/dL) 128 H 113 H (65-110) mg/dL Random Glucose (75-110) mg/dL Calcium (8.6-10.4) mg/dl Phosphorus (2.5-4.5) mg/dL Magnesium (1.6-2.3) mg/dL Total Bilirubin (0.2-1.3) mg/dL AST (17-59) U/L ALT (21-72) U/L Alkaline Phosphatase (38-126) U/L Total Protein (6.3-8.3) g/dL Albumin (3.5-5.0) g/dL Globulin (2.2-3.9) gm/dL Albumin/Globulin Ratio (1.0-2.1) Arterial Blood Potassium (3.6-5.2) mmol/L Laboratory Results - last 24 hr 03/11/18 03/11/18 03/11/18 11:42 17:50 23:56 WBC RBC Hgb Hct MCV MCH MCHC RDW Plt Count MPV Neut % (Auto) Lymph % (Auto) [place] % (Auto) Eos % (Auto) Baso % (Auto) Neut # (Auto) Lymph # (Auto) [place] # (Auto) Eos # (Auto) Baso # (Auto) Neutrophils % (Manual) Lymphocytes % (Manual) Monocytes % (Manual) Platelet Estimate Large Platelets Hypochromasia (manual) Poikilocytosis (manual Anisocytosis (manual) Target Cells Puncture Site pCO2 pO2 HCO3 ABG pH ABG Total CO2 ABG O2 Saturation ABG Base Excess [place] Test ABG Potassium A-a O2 Difference Respiratory Index Sodium Chloride Glucose Lactate Vent Mode Mechanical Rate FiO2 Tidal Volume PEEP Potassium Carbon Dioxide Anion Gap BUN Creatinine Est GFR ( Amer) Est GFR (Non-Af Amer) POC Glucose (mg/dL) 113 H 128 H 114 H Random Glucose Calcium Phosphorus Magnesium Total Bilirubin AST ALT Alkaline Phosphatase Total Protein Albumin Globulin Albumin/Globulin Ratio Arterial Blood Potassium 03/12/18 03/12/18 03/12/18 05:17 05:26 06:13 WBC 11.6 H RBC 2.99 L Hgb 8.9 L Hct 26.8 L MCV 89.5 MCH 29.9 MCHC 33.4 RDW 15.1 H Plt Count 536 H MPV 7.9 Neut % (Auto) 85.7 H Lymph % (Auto) 7.0 L [place] % (Auto) 7.2 Eos % (Auto) 0.0 Baso % (Auto) 0.1 Neut # (Auto) 9.9 H Lymph # (Auto) 0.8 L [place] # (Auto) 0.8 Eos # (Auto) 0.0 Baso # (Auto) 0.0 Neutrophils % (Manual) 84 H Lymphocytes % (Manual) 7 L Monocytes % (Manual) 9 Platelet Estimate Increased H Large Platelets Present Hypochromasia (manual) Slight Poikilocytosis (manual Slight Anisocytosis (manual) Slight Target Cells Slight Puncture Site L brac pCO2 45 pO2 68 L HCO3 33.8 H ABG pH 7.51 H ABG Total CO2 37.3 H ABG O2 Saturation 97.4 ABG Base Excess 11.4 H [place] Test Na ABG Potassium 3.4 L A-a O2 Difference 90.0 Respiratory Index 1.3 Sodium 139.0 Chloride 102.0 Glucose 102 Lactate 1.9 Vent Mode Prvc Mechanical Rate 15 FiO2 30.0 Tidal Volume 450 PEEP 5 Potassium Carbon Dioxide Anion Gap BUN Creatinine Est GFR ( Amer) Est GFR (Non-Af Amer) POC Glucose (mg/dL) 110 Random Glucose Calcium Phosphorus Magnesium Total Bilirubin AST ALT Alkaline Phosphatase Total Protein Albumin Globulin Albumin/Globulin Ratio Arterial Blood Potassium 3.4 L 03/12/18 03/12/18 06:13 12:08 WBC RBC Hgb Hct MCV MCH MCHC RDW Plt Count MPV Neut % (Auto) Lymph % (Auto) [place] % (Auto) Eos % (Auto) Baso % (Auto) Neut # (Auto) Lymph # (Auto) [place] # (Auto) Eos # (Auto) Baso # (Auto) Neutrophils % (Manual) Lymphocytes % (Manual) Monocytes % (Manual) Platelet Estimate Large Platelets Hypochromasia (manual) Poikilocytosis (manual Anisocytosis (manual) Target Cells Puncture Site pCO2 pO2 HCO3 ABG pH ABG Total CO2 ABG O2 Saturation ABG Base Excess [place] Test ABG Potassium A-a O2 Difference Respiratory Index Sodium 134 Chloride 95 L Glucose Lactate Vent Mode Mechanical Rate FiO2 Tidal Volume PEEP Potassium 3.4 L Carbon Dioxide 33 H Anion Gap 10 BUN 25 H Creatinine 0.3 L Est GFR ( Amer) > 60 Est GFR (Non-Af Amer) > 60 POC Glucose (mg/dL) 105 Random Glucose 111 H Calcium 8.1 L Phosphorus 2.6 Magnesium 1.9 Total Bilirubin 0.6 AST 49 ALT 44 Alkaline Phosphatase 166 H D Total Protein 6.7 Albumin 3.2 L Globulin 3.5 Albumin/Globulin Ratio 0.9 L Arterial Blood Potassium Radiology Impressions: Radiology Impressions Chest X-Ray 03/12/18 04:00 IMPRESSION: Persistent extensive consolidation mid and lower left lung. Probable small left pleural effusion. Critical Care Progress Note - Nutrition Nutrition: Nutrition Category Date Time Status Pureed [Dysphagia/Modified Consistency Diet] [DIET] Diets 03/12/18 Breakfast Active Attending/Attestation - Attestation I have personally seen and examined this patient.: Yes I have fully participated in the care of the patient.: Yes I have reviewed all pertinent clinical information: Yes Notes (Text): 03/12/18 17:22 patient seen and examined Extubated after weaning trial Patient is awake and responsive Swallowing evaluation continue present treatment
--- NOTE | 2018-03-12 11:05 | CP.PCM.PN ---
Subjective - Date & Time of Evaluation Date of Evaluation: 03/12/18 Time of Evaluation: 11:05 Objective - Vital Signs/Intake and Output Vital Signs (last 24 hours): Temp Pulse Resp BP Pulse Ox 98 F 89 28 H 141/63 98 03/12/18 04:00 03/12/18 06:00 03/12/18 06:00 03/12/18 05:10 03/12/18 06:00 Intake and Output: 03/12/18 03/12/18 06:59 18:59 Intake Total 836.3 174 Output Total 650 Balance 186.3 174 - Medications Medications: Current Medications Acetaminophen (Tylenol 650mg/20.3ml Solution Ud) 650 mg NG Q6 PRN PRN Reason: Fever >100.4 F Last Admin: 03/07/18 05:29 Dose: 650 mg Enoxaparin Sodium (Lovenox) 30 mg SC DAILY [facility] Last Admin: 03/12/18 10:40 Dose: 30 mg Fludrocortisone Acetate (Florinef) 0.1 mg PO DAILY [facility] Last Admin: 03/12/18 10:43 Dose: 0.1 mg Dexmedetomidine HCl 200 mcg/ (Sodium Chloride) 50 mls @ 2.77 mls/hr IV TITR PRN; Protocol PRN Reason: Agitation Last Titration: 03/12/18 10:42 Dose: 0 mcg/kg/hr, 0 mls/hr Micafungin Sodium 100 mg/ (Sodium Chloride) 100 mls @ 100 mls/hr IV Q24H VELMA; Protocol Last Admin: 03/12/18 00:19 Dose: 100 mls/hr Meropenem 500 mg/ Sodium (Chloride) 100 mls @ 100 mls/hr IVPB Q8H [facility]; Protocol Last Admin: 03/12/18 10:15 Dose: 100 mls/hr Norepinephrine Bitartrate 4 mg (/ Dextrose) 254 mls @ 15.24 mls/hr IV .[id number] PRN; Protocol PRN Reason: TITRATE PER MD ORDER Last Titration: 03/12/18 09:00 Dose: 0 mcg/min, 0 mls/hr Methylprednisolone (Solu-Medrol) 20 mg IVP DAILY [facility] Last Admin: 03/12/18 10:41 Dose: 20 mg Midodrine (Proamatine) 5 mg PO TID [facility] Last Admin: 03/12/18 10:40 Dose: 5 mg Pantoprazole Sodium (Protonix Susp) 40 mg PO 0600 [facility] Last Admin: 03/12/18 05:05 Dose: 40 mg - Labs Labs: 03/12/18 06:13 03/12/18 06:13
--- NOTE | 2018-03-12 11:14 | RAD ---
Date of service: 03/12/2018 HISTORY: intubated COMPARISON: 03/11/2018 FINDINGS: LUNGS: Extensive opacity in mid and lower left lung unchanged. No other opacity elsewhere. PLEURA: Probable small left pleural effusion. No right pleural effusion. No pneumothorax. CARDIOVASCULAR: There is atherosclerotic calcification of the thoracic aorta. Normal heart size. ET tube, NG tube and right PICC catheter unchanged. OSSEOUS STRUCTURES: No significant abnormalities. VISUALIZED UPPER ABDOMEN: Normal. OTHER FINDINGS: None. IMPRESSION: Persistent extensive consolidation mid and lower left lung. Probable small left pleural effusion.
--- NOTE | 2018-03-12 14:15 | CP.PCM.PN ---
Subjective - Date & Time of Evaluation Date of Evaluation: 03/12/18 Time of Evaluation: 14:15 - Subjective Subjective: Patient was extubated today. Vital signs are stable Patient is alert awake in no distress Lungs shows bilateral rhonchi's Heart is S1-S2 normal Extremities no edema. Continue IV antibiotics and bronchodilators. Objective - Vital Signs/Intake and Output Vital Signs (last 24 hours): Temp Pulse Resp BP Pulse Ox 98.6 F 109 H 23 103/58 L 100 03/12/18 12:00 03/12/18 11:00 03/12/18 11:00 03/12/18 10:46 03/12/18 11:00 Intake and Output: 03/12/18 03/12/18 11:59 23:59 Intake Total 761.7 Output Total 640 80 Balance 121.7 -80 - Medications Medications: Current Medications Acetaminophen (Tylenol 650mg/20.3ml Solution Ud) 650 mg NG Q6 PRN PRN Reason: Fever >100.4 F Last Admin: 03/07/18 05:29 Dose: 650 mg Enoxaparin Sodium (Lovenox) 30 mg SC DAILY [facility] Last Admin: 03/12/18 10:40 Dose: 30 mg Fludrocortisone Acetate (Florinef) 0.1 mg PO DAILY [facility] Last Admin: 03/12/18 10:43 Dose: 0.1 mg Dexmedetomidine HCl 200 mcg/ (Sodium Chloride) 50 mls @ 2.77 mls/hr IV TITR PRN; Protocol PRN Reason: Agitation Last Titration: 03/12/18 10:42 Dose: 0 mcg/kg/hr, 0 mls/hr Micafungin Sodium 100 mg/ (Sodium Chloride) 100 mls @ 100 mls/hr IV Q24H [facility]; Protocol Last Admin: 03/12/18 00:19 Dose: 100 mls/hr Meropenem 500 mg/ Sodium (Chloride) 100 mls @ 100 mls/hr IVPB Q8H [facility]; Protocol Last Admin: 03/12/18 10:15 Dose: 100 mls/hr Norepinephrine Bitartrate 4 mg (/ Dextrose) 254 mls @ 15.24 mls/hr IV .[id number] PRN; Protocol PRN Reason: TITRATE PER MD ORDER Last Titration: 03/12/18 09:00 Dose: 0 mcg/min, 0 mls/hr Methylprednisolone (Solu-Medrol) 20 mg IVP DAILY [facility] Last Admin: 03/12/18 10:41 Dose: 20 mg Midodrine (Proamatine) 5 mg PO TID [facility] Last Admin: 03/12/18 13:43 Dose: 5 mg Pantoprazole Sodium (Protonix Susp) 40 mg PO 0600 [facility] Last Admin: 03/12/18 05:05 Dose: 40 mg - Labs Labs: 03/12/18 06:13 03/12/18 06:13
--- NOTE | 2018-03-12 19:32 | CP.PCM.PN ---
Subjective - Date & Time of Evaluation Date of Evaluation: 03/12/18 Time of Evaluation: 19:32 - Subjective Subjective: AFEBRILE, EXTUBATED TODAY COMFORTABLE. ON IV ABX . LABS REVIEWED; Objective - Vital Signs/Intake and Output Vital Signs (last 24 hours): Temp Pulse Resp BP Pulse Ox 98.6 F 114 H 19 122/72 98 03/12/18 12:00 03/12/18 15:00 03/12/18 15:00 03/12/18 14:46 03/12/18 15:00 Intake and Output: 03/12/18 03/13/18 18:59 06:59 Intake Total 232.8 Output Total 310 Balance -77.2 - Medications Medications: Current Medications Acetaminophen (Tylenol 650mg/20.3ml Solution Ud) 650 mg NG Q6 PRN PRN Reason: Fever >100.4 F Last Admin: 03/07/18 05:29 Dose: 650 mg Enoxaparin Sodium (Lovenox) 30 mg SC DAILY [facility] Last Admin: 03/12/18 10:40 Dose: 30 mg Fludrocortisone Acetate (Florinef) 0.1 mg PO DAILY [facility] Last Admin: 03/12/18 10:43 Dose: 0.1 mg Micafungin Sodium 100 mg/ (Sodium Chloride) 100 mls @ 100 mls/hr IV Q24H [facility]; Protocol Last Admin: 03/12/18 00:19 Dose: 100 mls/hr Meropenem 500 mg/ Sodium (Chloride) 100 mls @ 100 mls/hr IVPB Q8H [facility]; Protocol Last Admin: 03/12/18 18:26 Dose: 100 mls/hr Methylprednisolone (Solu-Medrol) 20 mg IVP DAILY [facility] Last Admin: 03/12/18 10:41 Dose: 20 mg Midodrine (Proamatine) 5 mg PO TID [facility] Last Admin: 03/12/18 18:27 Dose: 5 mg Pantoprazole Sodium (Protonix Susp) 40 mg PO 0600 [facility] Last Admin: 03/12/18 05:05 Dose: 40 mg - Labs Labs: 03/12/18 06:13 03/12/18 06:13 - Constitutional Appears: No Acute Distress, Cachectic, Chronically Ill - Head Exam Head Exam: NORMAL INSPECTION - Eye Exam Eye Exam: EOMI, PERRL - ENT Exam ENT Exam: Normal Oropharynx - Neck Exam Neck Exam: Normal Inspection - Respiratory Exam Respiratory Exam: Decreased Breath Sounds, Rhonchi (B/L), NORMAL BREATHING PATTERN - Cardiovascular Exam Cardiovascular Exam: Tachycardia, REGULAR RHYTHM, +S1, +S2 - GI/Abdominal Exam GI & Abdominal Exam: Soft, Normal Bowel Sounds - Extremities Exam Extremities Exam: Normal Capillary Refill, Pedal Edema (1+). absent: Calf Tenderness - Neurological Exam Neurological Exam: Awake, CN II-XII Intact - Psychiatric Exam Psychiatric exam: Normal Mood - Skin Skin Exam: Normal Color, Warm Assessment and Plan (1) Sepsis associated hypotension Status: Acute (2) Respiratory failure requiring intubation Status: Acute (3) Altered mental status Status: Acute (4) Pneumonia Status: Acute (5) Abdominal pain Status: Acute (6) Cholelithiases Status: Acute - Assessment and Plan (Free Text) Assessment: CONTINUE IV MERREM 500MG IVPB Q8HRLY 03/04/18 CONTINUE IV MYCAFUNGIN 100MG IV PB Q 24 HRLY 03/04/18. PULMONARY TOILET. OFF IV VANCOMYCIN . MONITOR RENAL FUNCTION PER PULMONARY.
[2018-03-13] MEDS: Micafungin 100 MG in Sodium Chloride 0.9% 100 ML IV SCH (00:05)
[2018-03-13] MEDS: Meropenem 500 MG in Sodium Chloride 0.9% 100 ML IVPB SCH ×3 (01:10→17:15)
[2018-03-13 06:11] LABS: BASO % 0.1 % (0.0-2.0); EOS % 0.1 % (0.0-4.0); HEMOGLOBIN 9.9 g/dL (12.0-18.0); LYMPH % 9.3 % (20.0-40.0); MEAN CORPUSCULAR HEMOGLOBIN 29.7 pg (27.0-31.0); MEAN CORPUSCULAR HGB CONC 32.6 g/dL (33.0-37.0); MEAN PLATELET VOLUME 7.9 fL (7.2-11.7); MONO # 0.7 K/uL (0.0-0.8); MONO % 6.2 % (0.0-10.0); NEUT # 9.4 K/uL (1.8-7.0); NEUT % 84.3 % (50.0-75.0); PLATELET COUNT 667 K/uL (130-400); RBC 3.33 Mil/uL (4.40-5.90); WHITE BLOOD COUNT 11.1 K/uL (4.8-10.8)
[2018-03-13 06:44] LABS: ALB/GLOB RATIO 0.9 (1.0-2.1); ALBUMIN 3.7 g/dL (3.5-5.0); ALT/SGPT 44 U/L (21-72); AST/SGOT 44 U/L (17-59); BLOOD UREA NITROGEN 15 mg/dL (9-20); CALCIUM 8.6 mg/dl (8.6-10.4); GFR NON-AFRICAN AMERICAN > 60
[2018-03-13 08:18] LABS: ANISOCYTOSIS SLIGHT; BANDS 1 % (0-2); HYPOCHROMIC SLIGHT; LYMPHOCYTE 10 % (20-40); MONOCYTE 5 % (0-10); NEUTROPHIL 84 % (50-75); PLATELET ESTIMATE MARKEDLY INCREASED (NORMAL); POIKILOCYTOSIS SLIGHT; TOTAL CELLS COUNTED 100
[2018-03-13 08:19] LABS: LARGE PLATELETS PRESENT; TARGET CELLS SLIGHT
[2018-03-13] MEDS: Pantoprazole 40 mg EC Tab PO SCH (10:37)
[2018-03-13] MEDS: Enoxaparin 30 mg Syringe SC SCH (10:37)
[2018-03-13] MEDS: MethylPREDNISolone 40 mg Vial IVP SCH ×2 (10:37→19:02)
--- NOTE | 2018-03-13 10:50 | CP.PCM.CON ---
History of Present Illness - History of Present Illness History of Present Illness: Palliative consult requested by Doctor Mancera for goals of care discussion Patient is a 72 yo male admitted on 03/01/18, just 2-3 days after being discharged home. Per record, patient was treated here for abdominal pain and cholelitiasis, when developed Pneuminia and was treated for. Patient was feeling good on discharge, continued his antibiotics at home until got sick again. reports being unable to arouse patient, 911 called and patient intubated on field in acute respiratory distress. Patient recovered well on ICU and was successfully extubated yesterday. The patient had expressed desire against re intubation if it should be a case and wanted to go home and " there". Palliative care was called to discuss goals of care and Code status with patient. PMH: COPD, HTN Soc. Hx: , lives at home Fam. Hx: denied Review of Systems - Review of Systems All systems: reviewed and no additional remarkable complaints except - Constitutional Constitutional: Fatigue, Weakness - EENT Eyes: absent: As Per HPI, Blind Spots, Blurred Vision, Change in Vision, Decr eased Night Vision, Diplopia, Discharge, Dry Eye, Exophthalmos, Floaters, Irritation, Itchy Eyes, Loss of Peripheral Vision, Pain, Photophobia, Requires Corrective Lenses, Sees Flashes, Spots in Vision, Tunnel Vision, Other Visual Disturbances, Loss of Vision, Other Ears: absent: As Per HPI, Decreased Hearing, Ear Discharge, Ear Pain, Tinnitus, Abnormal Hearing, Disequilibrium, Dizziness, Other Nose/Mouth/Throat: Dry Mouth, Hoarsness - Cardiovascular Cardiovascular: Dyspnea on Exertion, Irregular Heart Rhythm, Palpitations, Rapid Heart Rate - Respiratory Respiratory: Dyspnea on Exertion, Excessive Mucous Production - Gastrointestinal Gastrointestinal: absent: As Per HPI, Abdominal Pain, Belching, Bloating, Change in Bowel Habits, Change in Stool Character, Coffee Ground Emesis, Constipation, Cramping, Diarrhea, Dyspepsia, Dysphagia, Early Satiety, Excessive Flatus, Fecal Incontinence, Heartburn, Hematemesis, Hematochezia, Loose Stools, Melena, Nausea, Odynophagia, Temesmus, Vomiting, Other - Genitourinary Genitourinary: absent: As Per HPI, Change in Urinary Stream, Difficulty U rinating, Dysuria, Flank Pain, Hematuria, Pyuria, Nocturia, Urinary Incontinence, Urinary Frequency, Urinary Hesitance, Urinary Urgency, Voiding Freq/Small Amts, Freq UTI, Hx Renal/Bladder Calculi, Hx /Renal Surgery, Bladder Distension, Other - Musculoskeletal Musculoskeletal: Limited Range of Motion, Muscle Weakness - Integumentary Integumentary: absent: As Per HPI, Acne, Alopecia, Bleeding Lesions, Change in Hair, Change in Nails, Change in Pigmentation, Changing Lesions, Dry Skin, Erythema, Furuncle, Hirsutism, Lesions, New Lesions, Non-Healing Lesions, Photosensitivity, Pruritus, Rash, Skin Pain, Skin Ulcer, Sores, Striae, Swelling, Unusual Bruising, Wounds, Jaundice, Other - Neurological Neurological: absent: As Per HPI, Abnormal Gait, Abnormal Hearing, Abnormal Mov ements, Abnormal Speech, Behavioral Changes, Burning Sensations, Confusion, Convulsions, Disequilibrium, Dizziness, Numbness, Focal Weakness, Frequent Falls, Headaches, Lack of Coordination, Loss of Vision, Memory Loss, Paresthesias, Radicular Pain, Restless Legs, Sensory Deficit, Syncope, Tingling, Tremor, Vertigo, Weakness, Other Visual Disturbances, Other - Psychiatric Psychiatric: absent: As Per HPI, Abnormal Sleep Pattern, Anhedonia, Anxiety, Auditory Hallucinations, Behavioral Changes, Change in Appetite, Change in Libido, Confusion, Depression, Difficulty Concentrating, Hallucinations, Homicidal Ideation, Hopelessness, Irritability, Memory Loss, Mood Swings, Panic Attacks, Paranoia, Suicidal Ideation, Visual Hallucinations, Tactile Hallucinations, Other - Endocrine Endocrine: absent: As Per HPI, Change in Body Appearance, Change in Libido, Cold Intolorance, Deepening of Voice, Excessive Sweating, Fatigue, Flushing, Heat Intolorance, Increase in Ring/Shoe/Hat Size, Palpitations, Polydipsia, Polyphagia, Polyuria, Other - Hematologic/Lymphatic Hematologic: absent: As Per HPI, Easy Bleeding, Easy Bruising, Lymphadenopathy, Other Past Patient History - Past Medical History & Family History Past Medical History?: Yes Past Family History: Reviewed and not pertinent - Past Social History Smoking Status: Former Smoker - CARDIAC Hx Congestive Heart Failure: Yes - PULMONARY Hx Emphysema: Yes Hx Pneumonia: Yes - NEUROLOGICAL Hx Alzheimer's Disease: Yes - HEENT Hx HEENT Problems: No - RENAL Hx Chronic Kidney Disease: No - ENDOCRINE/METABOLIC Hx Endocrine Disorders: No - HEMATOLOGICAL/ONCOLOGICAL Hx Blood Disorders: No - INTEGUMENTARY Hx Dermatological Problems: No - MUSCULOSKELETAL/RHEUMATOLOGICAL Hx Arthritis: Yes (L SH; BACK) - GASTROINTESTINAL Hx Gastrointestinal Disorders: No Hx Gall Bladder Disease: Yes - GENITOURINARY/GYNECOLOGICAL Hx Genitourinary Disorders: No - PSYCHIATRIC Hx Substance Use: No - SURGICAL HISTORY Hx Surgeries: Yes Hx Orthopedic Surgery: Yes (LEFT ARM) - ANESTHESIA Hx Anesthesia: Yes Hx Anesthesia Reactions: No Hx Malignant Hyperthermia: No Meds Allergies/Adverse Reactions: Allergies Allergy/AdvReac Type Severity Reaction Status Date / Time No Known Allergies Allergy Verified 03/01/18 18:48 - Medications Medications: Current Medications Acetaminophen (Tylenol 650mg/20.3ml Solution Ud) 650 mg NG Q6 PRN PRN Reason: Fever >100.4 F Last Admin: 03/07/18 05:29 Dose: 650 mg Enoxaparin Sodium (Lovenox) 30 mg SC DAILY [facility] Last Admin: 03/13/18 10:37 Dose: 30 mg Fludrocortisone Acetate (Florinef) 0.1 mg PO DAILY [facility] Last Admin: 03/13/18 10:37 Dose: 0.1 mg Micafungin Sodium 100 mg/ (Sodium Chloride) 100 mls @ 100 mls/hr IV Q24H [facility]; Protocol Last Admin: 03/13/18 00:05 Dose: 100 mls/hr Meropenem 500 mg/ Sodium (Chloride) 100 mls @ 100 mls/hr IVPB Q8H [facility]; Protocol Last Admin: 03/13/18 09:15 Dose: 100 mls/hr Potassium Chloride (Potassium Chloride 20 Meq/100 Ml) 20 meq in 100 mls @ 50 mls/hr IVPB Q2H [facility] Stop: 03/13/18 13:59 Last Admin: 03/13/18 09:36 Dose: 50 mls/hr Methylprednisolone (Solu-Medrol) 40 mg IVP Q8H [facility] Last Admin: 03/13/18 10:37 Dose: 40 mg Nifedipine (Procardia) 30 mg PO Q8H [facility] Last Admin: 03/13/18 10:37 Dose: 30 mg Pantoprazole Sodium (Protonix Ec Tab) 40 mg PO DAILY [facility] Last Admin: 03/13/18 10:37 Dose: 40 mg Physical Exam - Constitutional Appears: In Acute Distress, Chronically Ill - Head Exam Head Exam: ATRAUMATIC, NORMAL INSPECTION, NORMOCEPHALIC - Eye Exam Eye Exam: EOMI, Normal appearance, PERRL Pupil Exam: NORMAL ACCOMODATION, PERRL - ENT Exam ENT Exam: Mucous Membranes Dry - Neck Exam Neck exam: Positive for: Normal Inspection - Respiratory Exam Respiratory Exam: Decreased Breath Sounds, Respiratory Distress - Cardiovascular Exam Cardiovascular Exam: Tachycardia, Irregular Rhythm - GI/Abdominal Exam GI & Abdominal Exam: Hypoactive Bowel Sounds, Soft - Rectal Exam Rectal Exam: Deferred - Exam Additional comments: Simmons - Extremities Exam Extremities exam: Positive for: normal inspection - Back Exam Back exam: NORMAL INSPECTION - Neurological Exam Neurological exam: Alert, Oriented x3 - Psychiatric Exam Psychiatric exam: Anxious - Skin Skin Exam: Dry, Intact, Normal Color, Warm Results - Vital Signs Recent Vital Signs: Last Vital Signs Temp 97.6 F 03/13/18 00:00 Pulse 121 H 03/13/18 06:00 Resp 45 H 03/13/18 06:00 BP 142/81 03/13/18 05:46 Pulse Ox 100 03/13/18 06:00 - Labs Result Diagrams: 03/13/18 06:02 03/13/18 06:02 Labs: Laboratory Results - last 24 hr 03/11/18 03/11/18 03/11/18 11:42 17:50 23:56 WBC RBC Hgb Hct MCV MCH MCHC RDW Plt Count MPV Neut % (Auto) Lymph % (Auto) [place] % (Auto) Eos % (Auto) Baso % (Auto) Neut # (Auto) Lymph # (Auto) [place] # (Auto) Eos # (Auto) Baso # (Auto) Neutrophils % (Manual) Band Neutrophils % Lymphocytes % (Manual) Monocytes % (Manual) Platelet Estimate Large Platelets Hypochromasia (manual) Poikilocytosis (manual Anisocytosis (manual) Target Cells Sodium Potassium Chloride Carbon Dioxide Anion Gap BUN Creatinine Est GFR ( Amer) Est GFR (Non-Af Amer) POC Glucose (mg/dL) 113 H 128 H 114 H Random Glucose Calcium Phosphorus Magnesium Total Bilirubin AST ALT Alkaline Phosphatase Total Protein Albumin Globulin Albumin/Globulin Ratio 03/12/18 03/12/18 03/12/18 05:17 12:08 17:31 WBC RBC Hgb Hct MCV MCH MCHC RDW Plt Count MPV Neut % (Auto) Lymph % (Auto) [place] % (Auto) Eos % (Auto) Baso % (Auto) Neut # (Auto) Lymph # (Auto) [place] # (Auto) Eos # (Auto) Baso # (Auto) Neutrophils % (Manual) Band Neutrophils % Lymphocytes % (Manual) Monocytes % (Manual) Platelet Estimate Large Platelets Hypochromasia (manual) Poikilocytosis (manual Anisocytosis (manual) Target Cells Sodium Potassium Chloride Carbon Dioxide Anion Gap BUN Creatinine Est GFR ( Amer) Est GFR (Non-Af Amer) POC Glucose (mg/dL) 110 105 149 H Random Glucose Calcium Phosphorus Magnesium Total Bilirubin AST ALT Alkaline Phosphatase Total Protein Albumin Globulin Albumin/Globulin Ratio 03/13/18 03/13/18 03/13/18 00:07 06:02 06:02 WBC 11.1 H RBC 3.33 L Hgb 9.9 L Hct 30.3 L MCV 91.0 MCH 29.7 MCHC 32.6 L RDW 15.0 H Plt Count 667 H D MPV 7.9 Neut % (Auto) 84.3 H Lymph % (Auto) 9.3 L [place] % (Auto) 6.2 Eos % (Auto) 0.1 Baso % (Auto) 0.1 Neut # (Auto) 9.4 H Lymph # (Auto) 1.0 [place] # (Auto) 0.7 Eos # (Auto) 0.0 Baso # (Auto) 0.0 Neutrophils % (Manual) 84 H Band Neutrophils % 1 Lymphocytes % (Manual) 10 L Monocytes % (Manual) 5 Platelet Estimate Markedly increased H Large Platelets Present Hypochromasia (manual) Slight Poikilocytosis (manual Slight Anisocytosis (manual) Slight Target Cells Slight Sodium 138 Potassium 3.1 L Chloride 94 L Carbon Dioxide 39 H Anion Gap 9 L BUN 15 Creatinine 0.3 L Est GFR ( Amer) > 60 Est GFR (Non-Af Amer) > 60 POC Glucose (mg/dL) 127 H Random Glucose 99 Calcium 8.6 Phosphorus 4.0 Magnesium 1.9 Total Bilirubin 0.9 AST 44 ALT 44 Alkaline Phosphatase 147 H Total Protein 7.6 Albumin 3.7 Globulin 3.9 Albumin/Globulin Ratio 0.9 L Assessment & Plan - Assessment and Plan (Free Text) Assessment: Palliative consult Full Code, there is no Advance directive on chart, PPS 10% I reviewed medical records, all diagnostic studies, examined patient in the bed, discussed his condition with ICU team Patient is S/P extubation, alert, oriented X 3 in mild respiratory distress. Patient is tachypnic and tachycardic. HR 121, RR 42-45, O2 Sat 98 % with O2 on, drops to low 70' without oxygen. Breathing is shallow and fast. Oral mucousa is dry. Voice id harsh. Patient has difficulties talking, but makes effort to p articipate in discussion. Cough reflex present but weak. Patient unable to bring up sputum and seems that it is preventing normal air flow. All organ systems examined and are WNL. BP 142/81, HR 121, RR 45, O2Sat 98 %. WBC 11.1, Hb 9.9, K 3.1 Mycomine IV, Merrem IV and Solumedrol on board surgical resident is concerned that patient may get tired from breathing labor and get in respiratory distress requiring re entubation. Patient was questioned about this in my presence and with help from RN [place] who translated. Patient verbalized his feelings against re intubation and asking to be allowed to go home and " there". Patient's was called multiple times between me and [place] REYES and voice mails left; so far no calls back . Impression * Acutely ill male, S/P extubation * Tachypnea * Tachycardia * Harsh voice and difficulties speaking * General weakness * Weak cough reflex * Verbalizes against re intubation if it should become needed * Patient's is still unavailable over the phone Suggestions * Would consider mucolitics , humidified O2 and chest PT to assist with expectorations * Oral care * Small sips of liquid until able to cough well * Use ordinary measures to control HR * Hopefully will come in soon to confirm Code status with her * For now, I would consider DNI as per patient's wishes. Palliative care will fallow up with patient and his when available.
--- NOTE | 2018-03-13 14:04 | CP.CCUPN ---
<Merry Burns - Last Filed: 03/13/18 14:05> CCU Subjective - Physician Review Subjective (Free Text): Critical Care Progress Note for Dr. Gibbons's service Patient seen and examined at bedside. POD 1 s/p extubation. Patient states he does not want to be intubated again if his respiratory status declines. Palliative care was consulted. There is a concern due to Alzheimer dementia history if patient mentally competent to make such decision. Patient's has been attempted to be contacted multiple times however unable to do so. Patient admits to sob. Patient denies fevers, chills, chest pain, n/v, constipation or diarrhea, dysuria, and headaches. 03/13/18 14:05 03/13/18 14:06 Critical Care Time Spent (in minutes): 35 CCU Objective - Vital Signs / Intake & Output Vital Signs (Last 4 hours): Vital Signs Pulse Resp BP Pulse Ox 03/13/18 13:28 24 03/13/18 13:00 114 H 44 H 100 03/13/18 12:59 115 H 24 93/59 L 100 03/13/18 12:56 114 H 20 75/45 L 100 03/13/18 12:55 115 H 27 H 80/44 L 100 03/13/18 12:54 111 H 32 H 82/46 L 100 03/13/18 12:52 113 H 34 H 70/46 L 100 03/13/18 12:47 113 H 27 H 262/197 H 100 03/13/18 12:00 113 H 33 H 100 03/13/18 11:47 117 H 31 H 159/99 H 100 03/13/18 11:20 20 03/13/18 11:00 119 H 23 100 03/13/18 10:46 125 H 30 H 120/71 100 Intake and Output (Last 8hrs): Intake & Output 03/12/18 03/13/18 03/13/18 22:59 06:59 14:59 Intake Total 200 230 460 Output Total 550 601 300 Balance -350 -371 160 Intake: Intake, IV Amount 100 200 400 RIGHT PICC Y PORT 100 200 400 Oral 100 30 60 Output: Urine 550 600 300 Urine, Voided 550 600 300 Urine/Stool Mix 1 Other: # Voids Urine, Voided 1 1 1 - Physical Exam Head: Positive for: Atraumatic, Normocephalic Pupils: Positive for: PERRL Extroacular Muscles: Positive for: EOMI Conjunctiva: Positive for: Normal Ears: Positive for: Normal Mouth: Positive for: Dry, Other (ORAL ETT) Neck: Negative for: JVD Respiratory/Chest: Positive for: Clear to Auscultation, Good Air Exchange. Negative for: Respiratory Distress, Accessory Muscle Use Cardiovascular: Positive for: Normal S1, S2, Tachycardic. Negative for: Murmurs, Irregular Rhythm, Bradycardic Abdomen: Positive for: Normal Bowel Sounds. Negative for: Tenderness, Distention, Peritoneal Signs Upper Extremity: Positive for: Normal Inspection. Negative for: Cyanosis, Edema Lower Extremity: Positive for: Normal Inspection. Negative for: Edema Neurological: Positive for: GCS=15 Skin: Positive for: Dry, Normal Color. Negative for: Erythematous Psychiatric: Positive for: Alert, Oriented x 3 - Medications Active Medications: Active Medications Generic Name Dose Route Start Last Admin Trade Name Freq PRN Reason Stop Dose Admin Acetaminophen 650 mg 03/01/18 21:09 03/07/18 05:29 Tylenol 650mg/20.3ml Solution Ud NG 650 mg Q6 PRN Administration Fever >100.4 F Enoxaparin Sodium 30 mg 03/07/18 11:00 03/13/18 10:37 Lovenox SC 30 mg DAILY VELMA Administration Fludrocortisone Acetate 0.1 mg 03/10/18 11:15 03/13/18 10:37 Florinef PO 0.1 mg DAILY VELMA Administration Micafungin Sodium 100 mg/ 100 mls @ 100 mls/hr 03/04/18 01:00 03/13/18 00:05 Sodium Chloride IV 100 mls/hr Q24H VELMA Administration Protocol Meropenem 500 mg/ Sodium 100 mls @ 100 mls/hr 03/04/18 01:15 03/13/18 09:15 Chloride IVPB 100 mls/hr Q8H VELMA Administration Protocol Methylprednisolone 40 mg 03/13/18 10:15 03/13/18 10:37 Solu-Medrol IVP 40 mg Q8H VELMA Administration Nifedipine 30 mg 03/13/18 10:30 03/13/18 10:37 Procardia PO 30 mg Q8H VELMA Administration Pantoprazole Sodium 40 mg 03/13/18 10:00 03/13/18 10:37 Protonix Ec Tab PO 40 mg DAILY VELMA Administration - Patient Studies Lab Studies: Microbiology Studies 03/12/18 12:34 Gram Stain - Final Trachasp Lab Studies 03/13/18 03/13/18 03/13/18 Range/Units 06:02 06:02 00:07 WBC 11.1 H (4.8-10.8) K/uL RBC 3.33 L (4.40-5.90) Mil/uL Hgb 9.9 L (12.0-18.0) g/dL Hct 30.3 L (35.0-51.0) % MCV 91.0 (80.0-94.0) fL MCH 29.7 (27.0-31.0) pg MCHC 32.6 L (33.0-37.0) g/dL RDW 15.0 H (11.5-14.5) % Plt Count 667 H D (130-400) K/uL MPV 7.9 (7.2-11.7) fL Neut % (Auto) 84.3 H (50.0-75.0) % Lymph % (Auto) 9.3 L (20.0-40.0) % Granite % (Auto) 6.2 (0.0-10.0) % Eos % (Auto) 0.1 (0.0-4.0) % Baso % (Auto) 0.1 (0.0-2.0) % Neut # (Auto) 9.4 H (1.8-7.0) K/uL Lymph # (Auto) 1.0 (1.0-4.3) K/uL Granite # (Auto) 0.7 (0.0-0.8) K/uL Eos # (Auto) 0.0 (0.0-0.7) K/uL Baso # (Auto) 0.0 (0.0-0.2) K/uL Neutrophils % (Manual) 84 H (50-75) % Band Neutrophils % 1 (0-2) % Lymphocytes % (Manual) 10 L (20-40) % Monocytes % (Manual) 5 (0-10) % Platelet Estimate Markedly increased H (NORMAL) Large Platelets Present Hypochromasia (manual) Slight Poikilocytosis (manual Slight Anisocytosis (manual) Slight Target Cells Slight Sodium 138 (132-148) mmol/L Potassium 3.1 L (3.6-5.2) mmol/L Chloride 94 L (98-107) mmol/L Carbon Dioxide 39 H (22-30) mmol/L Anion Gap 9 L (10-20) BUN 15 (9-20) mg/dL Creatinine 0.3 L (0.8-1.5) mg/dL Est GFR ( Amer) > 60 Est GFR (Non-Af Amer) > 60 POC Glucose (mg/dL) 127 H (65-110) mg/dL Random Glucose 99 (75-110) mg/dL Calcium 8.6 (8.6-10.4) mg/dl Phosphorus 4.0 (2.5-4.5) mg/dL Magnesium 1.9 (1.6-2.3) mg/dL Total Bilirubin 0.9 (0.2-1.3) mg/dL AST 44 (17-59) U/L ALT 44 (21-72) U/L Alkaline Phosphatase 147 H (38-126) U/L Total Protein 7.6 (6.3-8.3) g/dL Albumin 3.7 (3.5-5.0) g/dL Globulin 3.9 (2.2-3.9) gm/dL Albumin/Globulin Ratio 0.9 L (1.0-2.1) 03/12/18 03/12/18 03/12/18 Range/Units 17:31 12:08 05:17 WBC (4.8-10.8) K/uL RBC (4.40-5.90) Mil/uL Hgb (12.0-18.0) g/dL Hct (35.0-51.0) % MCV (80.0-94.0) fL MCH (27.0-31.0) pg MCHC (33.0-37.0) g/dL RDW (11.5-14.5) % Plt Count (130-400) K/uL MPV (7.2-11.7) fL Neut % (Auto) (50.0-75.0) % Lymph % (Auto) (20.0-40.0) % Granite % (Auto) (0.0-10.0) % Eos % (Auto) (0.0-4.0) % Baso % (Auto) (0.0-2.0) % Neut # (Auto) (1.8-7.0) K/uL Lymph # (Auto) (1.0-4.3) K/uL Granite # (Auto) (0.0-0.8) K/uL Eos # (Auto) (0.0-0.7) K/uL Baso # (Auto) (0.0-0.2) K/uL Neutrophils % (Manual) (50-75) % Band Neutrophils % (0-2) % Lymphocytes % (Manual) (20-40) % Monocytes % (Manual) (0-10) % Platelet Estimate (NORMAL) Large Platelets Hypochromasia (manual) Poikilocytosis (manual Anisocytosis (manual) Target Cells Sodium (132-148) mmol/L Potassium (3.6-5.2) mmol/L Chloride (98-107) mmol/L Carbon Dioxide (22-30) mmol/L Anion Gap (10-20) BUN (9-20) mg/dL Creatinine (0.8-1.5) mg/dL Est GFR ( Amer) Est GFR (Non-Af Amer) POC Glucose (mg/dL) 149 H 105 110 (65-110) mg/dL Random Glucose (75-110) mg/dL Calcium (8.6-10.4) mg/dl Phosphorus (2.5-4.5) mg/dL Magnesium (1.6-2.3) mg/dL Total Bilirubin (0.2-1.3) mg/dL AST (17-59) U/L ALT (21-72) U/L Alkaline Phosphatase (38-126) U/L Total Protein (6.3-8.3) g/dL Albumin (3.5-5.0) g/dL Globulin (2.2-3.9) gm/dL Albumin/Globulin Ratio (1.0-2.1) Laboratory Results - last 24 hr 03/12/18 03/12/18 03/12/18 05:17 12:08 17:31 WBC RBC Hgb Hct MCV MCH MCHC RDW Plt Count MPV Neut % (Auto) Lymph % (Auto) Granite % (Auto) Eos % (Auto) Baso % (Auto) Neut # (Auto) Lymph # (Auto) Granite # (Auto) Eos # (Auto) Baso # (Auto) Neutrophils % (Manual) Band Neutrophils % Lymphocytes % (Manual) Monocytes % (Manual) Platelet Estimate Large Platelets Hypochromasia (manual) Poikilocytosis (manual Anisocytosis (manual) Target Cells Sodium Potassium Chloride Carbon Dioxide Anion Gap BUN Creatinine Est GFR ( Amer) Est GFR (Non-Af Amer) POC Glucose (mg/dL) 110 105 149 H Random Glucose Calcium Phosphorus Magnesium Total Bilirubin AST ALT Alkaline Phosphatase Total Protein Albumin Globulin Albumin/Globulin Ratio 03/13/18 03/13/18 03/13/18 00:07 06:02 06:02 WBC 11.1 H RBC 3.33 L Hgb 9.9 L Hct 30.3 L MCV 91.0 MCH 29.7 MCHC 32.6 L RDW 15.0 H Plt Count 667 H D MPV 7.9 Neut % (Auto) 84.3 H Lymph % (Auto) 9.3 L Granite % (Auto) 6.2 Eos % (Auto) 0.1 Baso % (Auto) 0.1 Neut # (Auto) 9.4 H Lymph # (Auto) 1.0 Granite # (Auto) 0.7 Eos # (Auto) 0.0 Baso # (Auto) 0.0 Neutrophils % (Manual) 84 H Band Neutrophils % 1 Lymphocytes % (Manual) 10 L Monocytes % (Manual) 5 Platelet Estimate Markedly increased H Large Platelets Present Hypochromasia (manual) Slight Poikilocytosis (manual Slight Anisocytosis (manual) Slight Target Cells Slight Sodium 138 Potassium 3.1 L Chloride 94 L Carbon Dioxide 39 H Anion Gap 9 L BUN 15 Creatinine 0.3 L Est GFR ( Amer) > 60 Est GFR (Non-Af Amer) > 60 POC Glucose (mg/dL) 127 H Random Glucose 99 Calcium 8.6 Phosphorus 4.0 Magnesium 1.9 Total Bilirubin 0.9 AST 44 ALT 44 Alkaline Phosphatase 147 H Total Protein 7.6 Albumin 3.7 Globulin 3.9 Albumin/Globulin Ratio 0.9 L Fingerstick Blood Sugar Results: 127 Review of Systems - Review of Systems Review of Systems: 12 point ROS obtained and noted as in HPI Critical Care Progress Note - Nutrition Nutrition: Nutrition Category Date Time Status Pureed [Dysphagia/Modified Consistency Diet] [DIET] Diets 03/12/18 Breakfast Active Assessment/Plan - Assessment and Plan (Free Text) Assessment: Patient is a 72 yo male w/PMH of Alzheimer, COPD, CHF, and arthritis admitted for hypercapnic resp failure. Intubated by EMS in field. Treated for PNA and hypercapnic respiratory failure. Positive cx for ESBL and yeast species. Extubated on 03/12 after 11 days of intubation. S/P day of extubation. Neuro Awake alert, responsive to questions Baseline mental status unknown Patient wishes to be discharged and " at home" Pulm + trach asp cx for ESBL, yeast species; [place] + Micafungin Solumedrol; Duoneb On high flow; Maintain spo2>90% CV Elevated heart rate- Nifedipine GI no active issues Protonix Endo Fludricortisone Renal KCl 20meq x3 bags Repeat CMP ID Meropenem Micafungin DVT ppx: Lovenox GI Ppx: Protonix Patient wants to go home however patient has increased difficulty breathing with out high flow. Even with high flow patient has tachypnea with accessory muscle use. Patient states he does not want to be intubated. Pending conversation for possible DNR/DNI as patient may not be competent due to history of Alzheimer dementia PGY-1 [facility] d/w Dr. Jara <Walter Gibbons M - Last Filed: 03/13/18 18:45> CCU Objective - Vital Signs / Intake & Output Vital Signs (Last 4 hours): Vital Signs Resp 03/13/18 15:56 30 H Intake and Output (Last 8hrs): Intake & Output 03/13/18 03/13/18 03/13/18 06:59 14:59 22:59 Intake Total 230 460 Output Total 601 300 Balance -371 160 Intake: Intake, IV Amount 200 400 RIGHT PICC Y PORT 200 400 Oral 30 60 Output: Urine 600 300 Urine, Voided 600 300 Urine/Stool Mix 1 Other: # Voids Urine, Voided 1 1 - Medications Active Medications: Active Medications Generic Name Dose Route Start Last Admin Trade Name Freq PRN Reason Stop Dose Admin Acetaminophen 650 mg 03/01/18 21:09 03/07/18 05:29 Tylenol 650mg/20.3ml Solution Ud NG 650 mg Q6 PRN Administration Fever >100.4 F Albuterol/Ipratropium 3 ml 03/13/18 20:00 Duoneb 3 Mg/0.5 Mg (3 Ml) Ud INH RQ6 VELMA Enoxaparin Sodium 30 mg 03/07/18 11:00 03/13/18 10:37 Lovenox SC 30 mg DAILY VELMA Administration Fludrocortisone Acetate 0.1 mg 03/10/18 11:15 03/13/18 10:37 Florinef PO 0.1 mg DAILY VELMA Administration Micafungin Sodium 100 mg/ 100 mls @ 100 mls/hr 03/04/18 01:00 03/13/18 00:05 Sodium Chloride IV 100 mls/hr Q24H VELMA Administration Protocol Meropenem 500 mg/ Sodium 100 mls @ 100 mls/hr 03/04/18 01:15 03/13/18 09:15 Chloride IVPB 100 mls/hr Q8H VELMA Administration Protocol Methylprednisolone 40 mg 03/13/18 10:15 03/13/18 10:37 Solu-Medrol IVP 40 mg Q8H VELMA Administration Nifedipine 30 mg 03/13/18 10:30 03/13/18 10:37 Procardia PO 30 mg Q8H VELMA Administration Pantoprazole Sodium 40 mg 03/13/18 10:00 03/13/18 10:37 Protonix Ec Tab PO 40 mg DAILY VELMA Administration - Patient Studies Lab Studies: Microbiology Studies 03/12/18 12:34 Gram Stain - Final Trachasp Lab Studies 03/13/18 03/13/18 03/13/18 Range/Units 11:21 06:02 06:02 WBC 11.1 H (4.8-10.8) K/uL RBC 3.33 L (4.40-5.90) Mil/uL Hgb 9.9 L (12.0-18.0) g/dL Hct 30.3 L (35.0-51.0) % MCV 91.0 (80.0-94.0) fL MCH 29.7 (27.0-31.0) pg MCHC 32.6 L (33.0-37.0) g/dL RDW 15.0 H (11.5-14.5) % Plt Count 667 H D (130-400) K/uL MPV 7.9 (7.2-11.7) fL Neut % (Auto) 84.3 H (50.0-75.0) % Lymph % (Auto) 9.3 L (20.0-40.0) % Granite % (Auto) 6.2 (0.0-10.0) % Eos % (Auto) 0.1 (0.0-4.0) % Baso % (Auto) 0.1 (0.0-2.0) % Neut # (Auto) 9.4 H (1.8-7.0) K/uL Lymph # (Auto) 1.0 (1.0-4.3) K/uL Granite # (Auto) 0.7 (0.0-0.8) K/uL Eos # (Auto) 0.0 (0.0-0.7) K/uL Baso # (Auto) 0.0 (0.0-0.2) K/uL Neutrophils % (Manual) 84 H (50-75) % Band Neutrophils % 1 (0-2) % Lymphocytes % (Manual) 10 L (20-40) % Monocytes % (Manual) 5 (0-10) % Platelet Estimate Markedly increased H (NORMAL) Large Platelets Present Hypochromasia (manual) Slight Poikilocytosis (manual Slight Anisocytosis (manual) Slight Target Cells Slight Sodium 138 (132-148) mmol/L Potassium 3.1 L (3.6-5.2) mmol/L Chloride 94 L (98-107) mmol/L Carbon Dioxide 39 H (22-30) mmol/L Anion Gap 9 L (10-20) BUN 15 (9-20) mg/dL Creatinine 0.3 L (0.8-1.5) mg/dL Est GFR ( Amer) > 60 Est GFR (Non-Af Amer) > 60 POC Glucose (mg/dL) 128 H (65-110) mg/dL Random Glucose 99 (75-110) mg/dL Calcium 8.6 (8.6-10.4) mg/dl Phosphorus 4.0 (2.5-4.5) mg/dL Magnesium 1.9 (1.6-2.3) mg/dL Total Bilirubin 0.9 (0.2-1.3) mg/dL AST 44 (17-59) U/L ALT 44 (21-72) U/L Alkaline Phosphatase 147 H (38-126) U/L Total Protein 7.6 (6.3-8.3) g/dL Albumin 3.7 (3.5-5.0) g/dL Globulin 3.9 (2.2-3.9) gm/dL Albumin/Globulin Ratio 0.9 L (1.0-2.1) 03/13/18 03/12/18 Range/Units 00:07 17:31 WBC (4.8-10.8) K/uL RBC (4.40-5.90) Mil/uL Hgb (12.0-18.0) g/dL Hct (35.0-51.0) % MCV (80.0-94.0) fL MCH (27.0-31.0) pg MCHC (33.0-37.0) g/dL RDW (11.5-14.5) % Plt Count (130-400) K/uL MPV (7.2-11.7) fL Neut % (Auto) (50.0-75.0) % Lymph % (Auto) (20.0-40.0) % Granite % (Auto) (0.0-10.0) % Eos % (Auto) (0.0-4.0) % Baso % (Auto) (0.0-2.0) % Neut # (Auto) (1.8-7.0) K/uL Lymph # (Auto) (1.0-4.3) K/uL Granite # (Auto) (0.0-0.8) K/uL Eos # (Auto) (0.0-0.7) K/uL Baso # (Auto) (0.0-0.2) K/uL Neutrophils % (Manual) (50-75) % Band Neutrophils % (0-2) % Lymphocytes % (Manual) (20-40) % Monocytes % (Manual) (0-10) % Platelet Estimate (NORMAL) Large Platelets Hypochromasia (manual) Poikilocytosis (manual Anisocytosis (manual) Target Cells Sodium (132-148) mmol/L Potassium (3.6-5.2) mmol/L Chloride (98-107) mmol/L Carbon Dioxide (22-30) mmol/L Anion Gap (10-20) BUN (9-20) mg/dL Creatinine (0.8-1.5) mg/dL Est GFR ( Amer) Est GFR (Non-Af Amer) POC Glucose (mg/dL) 127 H 149 H (65-110) mg/dL Random Glucose (75-110) mg/dL Calcium (8.6-10.4) mg/dl Phosphorus (2.5-4.5) mg/dL Magnesium (1.6-2.3) mg/dL Total Bilirubin (0.2-1.3) mg/dL AST (17-59) U/L ALT (21-72) U/L Alkaline Phosphatase (38-126) U/L Total Protein (6.3-8.3) g/dL Albumin (3.5-5.0) g/dL Globulin (2.2-3.9) gm/dL Albumin/Globulin Ratio (1.0-2.1) Laboratory Results - last 24 hr 03/12/18 03/13/18 03/13/18 17:31 00:07 06:02 WBC 11.1 H RBC 3.33 L Hgb 9.9 L Hct 30.3 L MCV 91.0 MCH 29.7 MCHC 32.6 L RDW 15.0 H Plt Count 667 H D MPV 7.9 Neut % (Auto) 84.3 H Lymph % (Auto) 9.3 L Granite % (Auto) 6.2 Eos % (Auto) 0.1 Baso % (Auto) 0.1 Neut # (Auto) 9.4 H Lymph # (Auto) 1.0 Granite # (Auto) 0.7 Eos # (Auto) 0.0 Baso # (Auto) 0.0 Neutrophils % (Manual) 84 H Band Neutrophils % 1 Lymphocytes % (Manual) 10 L Monocytes % (Manual) 5 Platelet Estimate Markedly increased H Large Platelets Present Hypochromasia (manual) Slight Poikilocytosis (manual Slight Anisocytosis (manual) Slight Target Cells Slight Sodium Potassium Chloride Carbon Dioxide Anion Gap BUN Creatinine Est GFR ( Amer) Est GFR (Non-Af Amer) POC Glucose (mg/dL) 149 H 127 H Random Glucose Calcium Phosphorus Magnesium Total Bilirubin AST ALT Alkaline Phosphatase Total Protein Albumin Globulin Albumin/Globulin Ratio 03/13/18 03/13/18 06:02 11:21 WBC RBC Hgb Hct MCV MCH MCHC RDW Plt Count MPV Neut % (Auto) Lymph % (Auto) Granite % (Auto) Eos % (Auto) Baso % (Auto) Neut # (Auto) Lymph # (Auto) Granite # (Auto) Eos # (Auto) Baso # (Auto) Neutrophils % (Manual) Band Neutrophils % Lymphocytes % (Manual) Monocytes % (Manual) Platelet Estimate Large Platelets Hypochromasia (manual) Poikilocytosis (manual Anisocytosis (manual) Target Cells Sodium 138 Potassium 3.1 L Chloride 94 L Carbon Dioxide 39 H Anion Gap 9 L BUN 15 Creatinine 0.3 L Est GFR ( Amer) > 60 Est GFR (Non-Af Amer) > 60 POC Glucose (mg/dL) 128 H Random Glucose 99 Calcium 8.6 Phosphorus 4.0 Magnesium 1.9 Total Bilirubin 0.9 AST 44 ALT 44 Alkaline Phosphatase 147 H Total Protein 7.6 Albumin 3.7 Globulin 3.9 Albumin/Globulin Ratio 0.9 L Critical Care Progress Note - Nutrition Nutrition: Nutrition Category Date Time Status Pureed [Dysphagia/Modified Consistency Diet] [DIET] Diets 03/12/18 Breakfast Active Attending/Attestation - Attestation I have personally seen and examined this patient.: Yes I have fully participated in the care of the patient.: Yes I have reviewed all pertinent clinical information: Yes Notes (Text): 03/13/18 18:45 Today: February The Patient was seen and examined at the bedside, Medical records reviewed, and management issues were discussed and formulated with the house staff. I have reviewed all the relevant clinical, laboratory, hemodynamic, radiographic data and medications Events reviewed Pain issues, skin care, head of the bed elevation, glycemic control were addressed. Agree with above resident's assessment and treatment plans of care as transcribed in Dr. Burns's note. Code Status: Full code Total critical care time 35 minutes
--- NOTE | 2018-03-13 14:08 | CP.PCM.PN ---
Subjective - Date & Time of Evaluation Date of Evaluation: 03/13/18 Time of Evaluation: 14:07 - Subjective Subjective: Currently patient is extubated and appears to be no any acute distress but still has tachypnea. Patient is expressing his wish not to get intubated and to be discharged home. Currently no family members is present to confirm this finding as previously on talking to the family especially the she wanted everything done to keep him alive. Will wait for the family to arrival to confirm the patient's wishes. Currently continue ICU protocol management for COPD and pneumonia. Objective - Vital Signs/Intake and Output Vital Signs (last 24 hours): Temp Pulse Resp BP Pulse Ox 97.6 F 114 H 24 93/59 L 100 03/13/18 00:00 03/13/18 13:00 03/13/18 13:28 03/13/18 12:59 03/13/18 13:00 Intake and Output: 03/13/18 03/13/18 11:59 23:59 Intake Total 590 100 Output Total 801 Balance -211 100 - Medications Medications: Current Medications Acetaminophen (Tylenol 650mg/20.3ml Solution Ud) 650 mg NG Q6 PRN PRN Reason: Fever >100.4 F Last Admin: 03/07/18 05:29 Dose: 650 mg Enoxaparin Sodium (Lovenox) 30 mg SC DAILY [facility] Last Admin: 03/13/18 10:37 Dose: 30 mg Fludrocortisone Acetate (Florinef) 0.1 mg PO DAILY [facility] Last Admin: 03/13/18 10:37 Dose: 0.1 mg Micafungin Sodium 100 mg/ (Sodium Chloride) 100 mls @ 100 mls/hr IV Q24H VELMA; Protocol Last Admin: 03/13/18 00:05 Dose: 100 mls/hr Meropenem 500 mg/ Sodium (Chloride) 100 mls @ 100 mls/hr IVPB Q8H VELMA; Protocol Last Admin: 03/13/18 09:15 Dose: 100 mls/hr Methylprednisolone (Solu-Medrol) 40 mg IVP Q8H VELMA Last Admin: 03/13/18 10:37 Dose: 40 mg Nifedipine (Procardia) 30 mg PO Q8H VELMA Last Admin: 03/13/18 10:37 Dose: 30 mg Pantoprazole Sodium (Protonix Ec Tab) 40 mg PO DAILY [facility] Last Admin: 03/13/18 10:37 Dose: 40 mg - Labs Labs: 03/13/18 06:02 03/13/18 06:02
[2018-03-13] MEDS: Albuterol-Ipratrop 3 mg / 0.5 (3 ml) UD INH SCH (19:35)
--- NOTE | 2018-03-13 20:37 | CP.PCM.PN ---
Subjective - Date & Time of Evaluation Date of Evaluation: 03/13/18 Time of Evaluation: 20:37 - Subjective Subjective: AFEBRILE, REMAINS EXTUBATED. PT REMAINS TACHPNEIC SEEN BY PALLIATIVE CARE EVENTS NOTED. ON IV ABX LABS REVIEWED. Objective - Vital Signs/Intake and Output Vital Signs (last 24 hours): Temp Pulse Resp BP Pulse Ox 97.2 F L 115 H 32 H 105/66 100 03/13/18 20:00 03/13/18 19:00 03/13/18 20:00 03/13/18 18:46 03/13/18 20:00 Intake and Output: 03/13/18 03/14/18 18:59 06:59 Intake Total 710 0 Output Total 300 250 Balance 410 -250 - Medications Medications: Current Medications Acetaminophen (Tylenol 650mg/20.3ml Solution Ud) 650 mg NG Q6 PRN PRN Reason: Fever >100.4 F Last Admin: 03/07/18 05:29 Dose: 650 mg Albuterol/Ipratropium (Duoneb 3 Mg/0.5 Mg (3 Ml) Ud) 3 ml INH RQ6 VELMA Last Admin: 03/13/18 19:35 Dose: 3 ml Enoxaparin Sodium (Lovenox) 30 mg SC DAILY [facility]ELMA Last Admin: 03/13/18 10:37 Dose: 30 mg Fludrocortisone Acetate (Florinef) 0.1 mg PO DAILY [facility] Last Admin: 03/13/18 10:37 Dose: 0.1 mg Micafungin Sodium 100 mg/ (Sodium Chloride) 100 mls @ 100 mls/hr IV Q24H VELMA; Protocol Last Admin: 03/13/18 00:05 Dose: 100 mls/hr Meropenem 500 mg/ Sodium (Chloride) 100 mls @ 100 mls/hr IVPB Q8H VELMA; Protocol Last Admin: 03/13/18 17:15 Dose: 100 mls/hr Methylprednisolone (Solu-Medrol) 40 mg IVP Q8H VELMA Last Admin: 03/13/18 19:02 Dose: 40 mg Nifedipine (Procardia) 30 mg PO Q8H VELMA Last Admin: 03/13/18 19:02 Dose: 30 mg Pantoprazole Sodium (Protonix Ec Tab) 40 mg PO DAILY [facility]MA Last Admin: 03/13/18 10:37 Dose: 40 mg - Labs Labs: 12/27/18 06:02 03/13/18 06:02 - Constitutional Appears: No Acute Distress, Cachectic, Chronically Ill - Head Exam Head Exam: NORMAL INSPECTION - Eye Exam Eye Exam: EOMI, PERRL - ENT Exam ENT Exam: Normal Oropharynx - Neck Exam Neck Exam: Normal Inspection - Respiratory Exam Respiratory Exam: Decreased Breath Sounds, Rhonchi, NORMAL BREATHING PATTERN - Cardiovascular Exam Cardiovascular Exam: Tachycardia, REGULAR RHYTHM, +S1, +S2 - GI/Abdominal Exam GI & Abdominal Exam: Soft, Normal Bowel Sounds - Extremities Exam Extremities Exam: Normal Capillary Refill. absent: Calf Tenderness, Pedal Edema - Neurological Exam Neurological Exam: Alert, Awake, CN II-XII Intact - Psychiatric Exam Psychiatric exam: Flat Affect - Skin Skin Exam: Normal Color, Warm Assessment and Plan (1) Sepsis associated hypotension Status: Acute (2) Respiratory failure requiring intubation Status: Acute (3) Altered mental status Status: Acute (4) Pneumonia Status: Acute (5) Abdominal pain Status: Acute (6) Cholelithiases Status: Acute - Assessment and Plan (Free Text) Plan: CONTINUE IV MERREM 500MG IVPB Q8HRLY 03/04/18 CONTINUE IV MYCAFUNGIN 100MG IV PB Q 24 HRLY 03/04/18. PULMONARY TOILET. PER PT, DOES NOT WANT INTUBATION. DISCUSSIONS ONGOING PER PALLIATIVE CARE-UNABLE TO GET ON PHONE. MONITOR RENAL FUNCTION PER PULMONARY.
[2018-03-14] MEDS: Meropenem 500 MG in Sodium Chloride 0.9% 100 ML IVPB SCH ×3 (00:41→18:47)
[2018-03-14] MEDS: Micafungin 100 MG in Sodium Chloride 0.9% 100 ML IV SCH (00:41)
[2018-03-14] MEDS: Albuterol-Ipratrop 3 mg / 0.5 (3 ml) UD INH SCH ×4 (01:42→19:40)
[2018-03-14] MEDS: MethylPREDNISolone 40 mg Vial IVP SCH ×3 (02:29→18:47)
[2018-03-14 05:59] LABS: ARTERIAL BLOOD GAS HCO3 35.2 mmol/L (21-28); ARTERIAL BLOOD GAS O2 SAT 99.2 % (95-98); ARTERIAL BLOOD GAS PCO2 53 mm/Hg (35-45); ARTERIAL BLOOD GAS PH 7.47 (7.35-7.45); ARTERIAL BLOOD GAS PO2 115 mm/Hg (80-100); ARTERIAL BLOOD GAS TCO2 40.2 mmol/L (22-28)
[2018-03-14 06:24] LABS: BASO % 0.2 % (0.0-2.0); HEMOGLOBIN 10.6 g/dL (12.0-18.0); LYMPH # 0.3 K/uL (1.0-4.3); LYMPH % 3.7 % (20.0-40.0); MEAN CELL VOLUME 90.4 fL (80.0-94.0); MEAN CORPUSCULAR HEMOGLOBIN 29.9 pg (27.0-31.0); MEAN PLATELET VOLUME 7.6 fL (7.2-11.7); MONO # 0.1 K/uL (0.0-0.8); MONO % 1.9 % (0.0-10.0); NEUT # 6.6 K/uL (1.8-7.0); NEUT % 94.2 % (50.0-75.0); PLATELET COUNT 675 K/uL (130-400); RBC 3.56 Mil/uL (4.40-5.90); RED CELL DISTRIBUTION WIDTH 15.7 % (11.5-14.5)
[2018-03-14 06:44] LABS: ALBUMIN 3.9 g/dL (3.5-5.0); ALT/SGPT 40 U/L (21-72); AST/SGOT 34 U/L (17-59); BLOOD UREA NITROGEN 21 mg/dL (9-20); GFR NON-AFRICAN AMERICAN > 60
[2018-03-14 08:32] LABS: BANDS 1 % (0-2); LYMPHOCYTE 5 % (20-40); MONOCYTE 2 % (0-10); NEUTROPHIL 91 % (50-75); PLATELET ESTIMATE INCREASED (NORMAL); REACTIVE LYMPHOCYTES 1 % (0-0); TOTAL CELLS COUNTED 100
[2018-03-14 08:33] LABS: ANISOCYTOSIS SLIGHT; STOMATOCYTES SLIGHT; TARGET CELLS SLIGHT
[2018-03-14] MEDS ORDERED: diltiaZEM 180 mg/24 Hours CD Cap PO SCH (10:00)
[2018-03-14] MEDS: Pantoprazole 40 mg EC Tab PO SCH (10:15)
[2018-03-14] MEDS: Enoxaparin 30 mg Syringe SC SCH (10:15)
--- NOTE | 2018-03-14 10:54 | CP.CCUPN ---
<Merry Burns - Last Filed: 03/14/18 10:51> CCU Subjective - Physician Review Subjective (Free Text): Critical Care Progress Note for Dr. Amaya's service Patient seen and examined at bedside. POD 2 s/p extubation. Patient's sister was at bedside last night. Patient's family spoke with patient and gave updated plan that they would want no DNR/DNI. is currently sick at home. Sister stated she would speak to patient's to update her. Patient denies fevers, chills, chest pain, sob, n/v, constipation or diarrhea, and dysuria. CCU Objective - Vital Signs / Intake & Output Vital Signs (Last 4 hours): Vital Signs Pulse Resp BP Pulse Ox 03/14/18 08:31 36 H 03/14/18 08:00 103 H 36 H 100 03/14/18 07:56 106 H 44 H 117/68 100 03/14/18 07:00 108 H 35 H 100 Intake and Output (Last 8hrs): Intake & Output 03/13/18 03/14/18 03/14/18 22:59 06:59 14:59 Intake Total 260 680 Output Total 250 1000 Balance 10 -320 Weight 123 lb Intake: Intake, IV Amount 110 200 Left Forearm 10 RIGHT PICC Y PORT 100 200 Oral 150 480 Output: Urine 250 1000 Urine, Voided 250 1000 Other: # Voids Urine, Voided 1 1 - Physical Exam Head: Positive for: Atraumatic, Normocephalic Pupils: Positive for: PERRL Extroacular Muscles: Positive for: EOMI Conjunctiva: Positive for: Normal Ears: Positive for: Normal Mouth: Positive for: Dry, Other (ORAL ETT) Neck: Negative for: JVD Respiratory/Chest: Positive for: Clear to Auscultation. Negative for: Respira tory Distress, Accessory Muscle Use Cardiovascular: Positive for: Normal S1, S2, Tachycardic. Negative for: Murmurs, Irregular Rhythm, Bradycardic Abdomen: Positive for: Normal Bowel Sounds. Negative for: Tenderness, Distention, Peritoneal Signs Upper Extremity: Positive for: Normal Inspection. Negative for: Cyanosis, Edema Lower Extremity: Positive for: Normal Inspection. Negative for: Edema Neurological: Positive for: GCS=15 Skin: Positive for: Dry, Normal Color. Negative for: Erythematous Psychiatric: Positive for: Alert, Oriented x 3 - Medications Active Medications: Active Medications Generic Name Dose Route Start Last Admin Trade Name Freq PRN Reason Stop Dose Admin Acetaminophen 650 mg 03/01/18 21:09 03/07/18 05:29 Tylenol 650mg/20.3ml Solution Ud NG 650 mg Q6 PRN Administration Fever >100.4 F Albuterol/Ipratropium 3 ml 03/13/18 20:00 03/14/18 07:52 Duoneb 3 Mg/0.5 Mg (3 Ml) Ud INH 3 ml RQ6 VELMA Administration Diltiazem HCl 180 mg 03/14/18 10:00 03/14/18 10:15 Cardizem Cd PO 180 mg DAILY VELMA Administration Enoxaparin Sodium 30 mg 03/07/18 11:00 03/14/18 10:15 Lovenox SC 30 mg DAILY VELMA Administration Fludrocortisone Acetate 0.1 mg 03/10/18 11:15 03/13/18 10:37 Florinef PO 0.1 mg DAILY VELMA Administration Micafungin Sodium 100 mg/ 100 mls @ 100 mls/hr 03/04/18 01:00 03/14/18 00:41 Sodium Chloride IV 100 mls/hr Q24H VELMA Administration Protocol Meropenem 500 mg/ Sodium 100 mls @ 100 mls/hr 03/04/18 01:15 03/14/18 08:31 Chloride IVPB 100 mls/hr Q8H VELMA Administration Protocol Methylprednisolone 40 mg 03/13/18 10:15 03/14/18 10:16 Solu-Medrol IVP 40 mg Q8H VELMA Administration Pantoprazole Sodium 40 mg 03/13/18 10:00 03/14/18 10:15 Protonix Ec Tab PO 40 mg DAILY VELMA Administration - Patient Studies Lab Studies: Lab Studies 03/14/18 03/14/18 03/14/18 Range/Units 07:20 06:10 06:10 WBC 7.0 (4.8-10.8) K/uL RBC 3.56 L (4.40-5.90) Mil/uL Hgb 10.6 L (12.0-18.0) g/dL Hct 32.2 L (35.0-51.0) % MCV 90.4 (80.0-94.0) fL MCH 29.9 (27.0-31.0) pg MCHC 33.0 (33.0-37.0) g/dL RDW 15.7 H (11.5-14.5) % Plt Count 675 H (130-400) K/uL MPV 7.6 (7.2-11.7) fL Neut % (Auto) 94.2 H (50.0-75.0) % Lymph % (Auto) 3.7 L (20.0-40.0) % [place] % (Auto) 1.9 (0.0-10.0) % Eos % (Auto) 0.0 (0.0-4.0) % Baso % (Auto) 0.2 (0.0-2.0) % Neut # (Auto) 6.6 (1.8-7.0) K/uL Lymph # (Auto) 0.3 L (1.0-4.3) K/uL [place] # (Auto) 0.1 (0.0-0.8) K/uL Eos # (Auto) 0.0 (0.0-0.7) K/uL Baso # (Auto) 0.0 (0.0-0.2) K/uL Neutrophils % (Manual) 91 H (50-75) % Band Neutrophils % 1 (0-2) % Lymphocytes % (Manual) 5 L (20-40) % Reactive Lymphs % 1 H (0-0) % Monocytes % (Manual) 2 (0-10) % Platelet Estimate Increased H (NORMAL) Anisocytosis (manual) Slight Target Cells Slight Stomatocytes Slight Puncture Site pCO2 (35-45) mm/Hg pO2 (80-100) mm/Hg HCO3 (21-28) mmol/L ABG pH (7.35-7.45) ABG Total CO2 (22-28) mmol/L ABG O2 Saturation (95-98) % ABG Base Excess (-2.0-3.0) mmol/L ABG Hemoglobin (11.7-17.4) g/dL ABG Carboxyhemoglobin (0.5-1.5) % POC ABG HHb (Measured) (0.0-5.0) % ABG Methemoglobin (0.0-3.0) % [place] Test A-a O2 Difference mm/Hg Respiratory Index Hgb O2 Saturation (95.0-98.0) % FiO2 % Sodium 137 (132-148) mmol/L Potassium 3.8 (3.6-5.2) mmol/L Chloride 93 L (98-107) mmol/L Carbon Dioxide 39 H (22-30) mmol/L Anion Gap 8 L (10-20) BUN 21 H (9-20) mg/dL Creatinine 0.4 L (0.8-1.5) mg/dL Est GFR ( Amer) > 60 Est GFR (Non-Af Amer) > 60 POC Glucose (mg/dL) 142 H (65-110) mg/dL Random Glucose 127 H D (75-110) mg/dL Calcium 9.0 (8.6-10.4) mg/dl Phosphorus 3.3 (2.5-4.5) mg/dL Magnesium 1.9 (1.6-2.3) mg/dL Total Bilirubin 0.9 (0.2-1.3) mg/dL AST 34 (17-59) U/L ALT 40 (21-72) U/L Alkaline Phosphatase 136 H (38-126) U/L Total Protein 8.0 (6.3-8.3) g/dL Albumin 3.9 (3.5-5.0) g/dL Globulin 4.0 H (2.2-3.9) gm/dL Albumin/Globulin Ratio 1.0 (1.0-2.1) 03/14/18 03/13/18 03/13/18 Range/Units 05:14 22:37 11:21 WBC (4.8-10.8) K/uL RBC (4.40-5.90) Mil/uL Hgb (12.0-18.0) g/dL Hct (35.0-51.0) % MCV (80.0-94.0) fL MCH (27.0-31.0) pg MCHC (33.0-37.0) g/dL RDW (11.5-14.5) % Plt Count (130-400) K/uL MPV (7.2-11.7) fL Neut % (Auto) (50.0-75.0) % Lymph % (Auto) (20.0-40.0) % [place] % (Auto) (0.0-10.0) % Eos % (Auto) (0.0-4.0) % Baso % (Auto) (0.0-2.0) % Neut # (Auto) (1.8-7.0) K/uL Lymph # (Auto) (1.0-4.3) K/uL [place] # (Auto) (0.0-0.8) K/uL Eos # (Auto) (0.0-0.7) K/uL Baso # (Auto) (0.0-0.2) K/uL Neutrophils % (Manual) (50-75) % Band Neutrophils % (0-2) % Lymphocytes % (Manual) (20-40) % Reactive Lymphs % (0-0) % Monocytes % (Manual) (0-10) % Platelet Estimate (NORMAL) Anisocytosis (manual) Target Cells Stomatocytes Puncture Site L brav pCO2 53 H (35-45) mm/Hg pO2 115 H (80-100) mm/Hg HCO3 35.2 H (21-28) mmol/L ABG pH 7.47 H (7.35-7.45) ABG Total CO2 40.2 H (22-28) mmol/L ABG O2 Saturation 99.2 H (95-98) % ABG Base Excess 13.2 H (-2.0-3.0) mmol/L ABG Hemoglobin 10.0 L (11.7-17.4) g/dL ABG Carboxyhemoglobin 2.0 H (0.5-1.5) % POC ABG HHb (Measured) 0.8 (0.0-5.0) % ABG Methemoglobin 1.4 (0.0-3.0) % [place] Test Na A-a O2 Difference 104.0 mm/Hg Respiratory Index 0.9 Hgb O2 Saturation 95.8 (95.0-98.0) % FiO2 40.0 % Sodium (132-148) mmol/L Potassium (3.6-5.2) mmol/L Chloride (98-107) mmol/L Carbon Dioxide (22-30) mmol/L Anion Gap (10-20) BUN (9-20) mg/dL Creatinine (0.8-1.5) mg/dL Est GFR ( Amer) Est GFR (Non-Af Amer) POC Glucose (mg/dL) 155 H 128 H (65-110) mg/dL Random Glucose (75-110) mg/dL Calcium (8.6-10.4) mg/dl Phosphorus (2.5-4.5) mg/dL Magnesium (1.6-2.3) mg/dL Total Bilirubin (0.2-1.3) mg/dL AST (17-59) U/L ALT (21-72) U/L Alkaline Phosphatase (38-126) U/L Total Protein (6.3-8.3) g/dL Albumin (3.5-5.0) g/dL Globulin (2.2-3.9) gm/dL Albumin/Globulin Ratio (1.0-2.1) Laboratory Results - last 24 hr 03/13/18 03/13/18 03/14/18 11:21 22:37 05:14 WBC RBC Hgb Hct MCV MCH MCHC RDW Plt Count MPV Neut % (Auto) Lymph % (Auto) [place] % (Auto) Eos % (Auto) Baso % (Auto) Neut # (Auto) Lymph # (Auto) [place] # (Auto) Eos # (Auto) Baso # (Auto) Neutrophils % (Manual) Band Neutrophils % Lymphocytes % (Manual) Reactive Lymphs % Monocytes % (Manual) Platelet Estimate Anisocytosis (manual) Target Cells Stomatocytes Puncture Site L brav pCO2 53 H pO2 115 H HCO3 35.2 H ABG pH 7.47 H ABG Total CO2 40.2 H ABG O2 Saturation 99.2 H ABG Base Excess 13.2 H ABG Hemoglobin 10.0 L ABG Carboxyhemoglobin 2.0 H POC ABG HHb (Measured) 0.8 ABG Methemoglobin 1.4 [place] Test Na A-a O2 Difference 104.0 Respiratory Index 0.9 Hgb O2 Saturation 95.8 FiO2 40.0 Sodium Potassium Chloride Carbon Dioxide Anion Gap BUN Creatinine Est GFR ( Amer) Est GFR (Non-Af Amer) POC Glucose (mg/dL) 128 H 155 H Random Glucose Calcium Phosphorus Magnesium Total Bilirubin AST ALT Alkaline Phosphatase Total Protein Albumin Globulin Albumin/Globulin Ratio 03/14/18 03/14/18 03/14/18 06:10 06:10 07:20 WBC 7.0 RBC 3.56 L Hgb 10.6 L Hct 32.2 L MCV 90.4 MCH 29.9 MCHC 33.0 RDW 15.7 H Plt Count 675 H MPV 7.6 Neut % (Auto) 94.2 H Lymph % (Auto) 3.[address] [place] % (Auto) 1.9 Eos % (Auto) 0.0 Baso % (Auto) 0.2 Neut # (Auto) 6.6 Lymph # (Auto) 0.[address] [place] # (Auto) 0.1 Eos # (Auto) 0.0 Baso # (Auto) 0.0 Neutrophils % (Manual) 91 H Band Neutrophils % 1 Lymphocytes % (Manual) 5 L Reactive Lymphs % 1 H Monocytes % (Manual) 2 Platelet Estimate Increased H Anisocytosis (manual) Slight Target Cells Slight Stomatocytes Slight Puncture Site pCO2 pO2 HCO3 ABG pH ABG Total CO2 ABG O2 Saturation ABG Base Excess ABG Hemoglobin ABG Carboxyhemoglobin POC ABG HHb (Measured) ABG Methemoglobin [place] Test A-a O2 Difference Respiratory Index Hgb O2 Saturation FiO2 Sodium 137 Potassium 3.8 Chloride 93 L Carbon Dioxide 39 H Anion Gap 8 L BUN 21 H Creatinine 0.4 L Est GFR ( Amer) > 60 Est GFR (Non-Af Amer) > 60 POC Glucose (mg/dL) 142 H Random Glucose 127 H D Calcium 9.0 Phosphorus 3.3 Magnesium 1.9 Total Bilirubin 0.9 AST 34 ALT 40 Alkaline Phosphatase 136 H Total Protein 8.0 Albumin 3.9 Globulin 4.0 H Albumin/Globulin Ratio 1.0 Fingerstick Blood Sugar Results: 142 Review of Systems - Review of Systems Review of Systems: 12 point ROS obtained and noted in HPI Critical Care Progress Note - Extremities/Vascular Does the Patient have a Central Venous Catheter?: Yes Insertion Site: Internal Jugular Vein Does the Patient need a Central Venous Catheter?: Yes Does the Patient have a Simmons Catheter?: No - Prophylaxis GI Prophylaxis GI: PPI - Prophylaxis DVT Prophylaxis DVT: Lovenox - Nutrition Nutrition: Nutrition Category Date Time Status Pureed [Dysphagia/Modified Consistency Diet] [DIET] Diets 03/12/18 Breakfast Active Assessment/Plan - Assessment and Plan (Free Text) Assessment: Patient is a 72 yo male w/PMH of Alzheimer, COPD, CHF, and arthritis admitted for hypercapnic resp failure. Intubated by EMS in field. Treated for PNA and hypercapnic respiratory failure. Positive cx for ESBL and yeast species. Extubated on 03/12 after 11 days of intubation. S/P day 2 of extubation. Neuro Awake alert, responsive to questions Baseline mental status unknown Pulm + trach asp cx for ESBL, yeast species; [place] + Micafungin Solumedrol; Duoneb On high flow; Maintain spo2>90% CV Nifedipine dc'ed , switched to Cardizem for elevated heart rate and blood pressure GI no active issues Protonix Endo No acute issues Renal Fludricortisone Electrolytes normal ID Meropenem Micafungin DVT ppx: Lovenox GI Ppx: Protonix Family spoke with patient and he changed his mind about DNR/DNI. Tolerating hiflow well. Plan to attempt nasal cannula PGY-1 Merry burns Medical Management d/w Dr. Amaya <Hailey Amaya - Last Filed: 03/15/18 10:41> CCU Objective - Vital Signs / Intake & Output Vital Signs (Last 4 hours): Vital Signs Pulse Resp BP Pulse Ox 03/15/18 08:44 98 H 15 123/72 100 03/15/18 08:10 37 H 03/15/18 08:00 89 32 H 100 03/15/18 07:44 90 16 118/64 100 03/15/18 06:45 93 H 37 H 117/69 100 Intake and Output (Last 8hrs): Intake & Output 03/14/18 03/15/18 03/15/18 22:59 06:59 14:59 Intake Total 570 700 Output Total 550 400 Balance 20 300 Weight 116 lb 9.6 oz Intake: Intake, IV Amount 110 200 Left Forearm 10 RIGHT PICC Y PORT 100 200 Oral 460 500 Output: Urine 550 400 Urine, Voided 550 400 Emesis 0 Other: # Bowel Movements 0 - Medications Active Medications: Active Medications Generic Name Dose Route Start Last Admin Trade Name Freq PRN Reason Stop Dose Admin Acetaminophen 650 mg 03/01/18 21:09 03/07/18 05:29 Tylenol 650mg/20.3ml Solution Ud NG 650 mg Q6 PRN Administration Fever >100.4 F Albuterol/Ipratropium 3 ml 03/13/18 20:00 03/15/18 08:10 Duoneb 3 Mg/0.5 Mg (3 Ml) Ud INH 3 ml RQ6 VELMA Administration Diltiazem HCl 240 mg 03/15/18 10:00 Cardizem Cd PO DAILY VELMA Enoxaparin Sodium 30 mg 03/07/18 11:00 03/14/18 10:15 Lovenox SC 30 mg DAILY VELMA Administration Fludrocortisone Acetate 0.1 mg 03/10/18 11:15 03/14/18 11:27 Florinef PO 0.1 mg DAILY VELMA Administration Micafungin Sodium 100 mg/ 100 mls @ 100 mls/hr 03/04/18 01:00 03/15/18 01:11 Sodium Chloride IV 100 mls/hr Q24H VELMA Administration Protocol Meropenem 500 mg/ Sodium 100 mls @ 100 mls/hr 03/04/18 01:15 03/15/18 01:10 Chloride IVPB 100 mls/hr Q8H VELMA Administration Protocol Potassium Chloride 20 meq in 100 mls @ 50 mls/hr 03/15/18 10:00 Potassium Chloride 20 Meq/100 Ml IVPB 03/15/18 15:59 Q2H VELMA Methylprednisolone 40 mg 03/13/18 10:15 03/15/18 01:58 Solu-Medrol IVP 40 mg Q8H VELMA Administration Pantoprazole Sodium 40 mg 03/13/18 10:00 03/14/18 10:15 Protonix Ec Tab PO 40 mg DAILY VELMA Administration - Patient Studies Lab Studies: Microbiology Studies 03/12/18 12:34 Gram Stain - Final Trachasp Sputum Culture - Final Yeast Species Lab Studies 03/15/18 03/15/18 03/15/18 Range/Units 07:54 05:38 05:38 WBC 7.3 (4.8-10.8) K/uL RBC 3.49 L (4.40-5.90) Mil/uL Hgb 10.2 L (12.0-18.0) g/dL Hct 31.3 L (35.0-51.0) % MCV 89.7 (80.0-94.0) fL MCH 29.3 (27.0-31.0) pg MCHC 32.7 L (33.0-37.0) g/dL RDW 15.4 H (11.5-14.5) % Plt Count 719 H (130-400) K/uL MPV 7.4 (7.2-11.7) fL Neut % (Auto) 93.8 H (50.0-75.0) % Lymph % (Auto) 2.9 L (20.0-40.0) % [place] % (Auto) 3.2 (0.0-10.0) % Eos % (Auto) 0.0 (0.0-4.0) % Baso % (Auto) 0.1 (0.0-2.0) % Neut # (Auto) 6.8 (1.8-7.0) K/uL Lymph # (Auto) 0.2 L (1.0-4.3) K/uL [place] # (Auto) 0.2 (0.0-0.8) K/uL Eos # (Auto) 0.0 (0.0-0.7) K/uL Baso # (Auto) 0.0 (0.0-0.2) K/uL Neutrophils % (Manual) 94 H (50-75) % Band Neutrophils % 1 (0-2) % Lymphocytes % (Manual) 3 L (20-40) % Monocytes % (Manual) 2 (0-10) % Platelet Estimate Increased H (NORMAL) Large Platelets Present Polychromasia Slight Hypochromasia (manual) Slight Basophilic Stippling Slight Anisocytosis (manual) Slight Sodium 135 (132-148) mmol/L Potassium 3.2 L (3.6-5.2) mmol/L Chloride 88 L (98-107) mmol/L Carbon Dioxide 40 H* (22-30) mmol/L Anion Gap 10 (10-20) BUN 19 (9-20) mg/dL Creatinine 0.3 L (0.8-1.5) mg/dL Est GFR ( Amer) > 60 Est GFR (Non-Af Amer) > 60 POC Glucose (mg/dL) 148 H (65-110) mg/dL Random Glucose 136 H (75-110) mg/dL Calcium 8.7 (8.6-10.4) mg/dl Phosphorus 3.1 (2.5-4.5) mg/dL Magnesium 1.7 (1.6-2.3) mg/dL Total Bilirubin 1.0 (0.2-1.3) mg/dL AST 29 (17-59) U/L ALT 39 (21-72) U/L Alkaline Phosphatase 112 (38-126) U/L Total Protein 7.5 (6.3-8.3) g/dL Albumin 3.7 (3.5-5.0) g/dL Globulin 3.8 (2.2-3.9) gm/dL Albumin/Globulin Ratio 1.0 (1.0-2.1) 03/14/18 03/14/18 03/14/18 Range/Units 21:21 16:21 11:29 WBC (4.8-10.8) K/uL RBC (4.40-5.90) Mil/uL Hgb (12.0-18.0) g/dL Hct (35.0-51.0) % MCV (80.0-94.0) fL MCH (27.0-31.0) pg MCHC (33.0-37.0) g/dL RDW (11.5-14.5) % Plt Count (130-400) K/uL MPV (7.2-11.7) fL Neut % (Auto) (50.0-75.0) % Lymph % (Auto) (20.0-40.0) % [place] % (Auto) (0.0-10.0) % Eos % (Auto) (0.0-4.0) % Baso % (Auto) (0.0-2.0) % Neut # (Auto) (1.8-7.0) K/uL Lymph # (Auto) (1.0-4.3) K/uL [place] # (Auto) (0.0-0.8) K/uL Eos # (Auto) (0.0-0.7) K/uL Baso # (Auto) (0.0-0.2) K/uL Neutrophils % (Manual) (50-75) % Band Neutrophils % (0-2) % Lymphocytes % (Manual) (20-40) % Monocytes % (Manual) (0-10) % Platelet Estimate (NORMAL) Large Platelets Polychromasia Hypochromasia (manual) Basophilic Stippling Anisocytosis (manual) Sodium (132-148) mmol/L Potassium (3.6-5.2) mmol/L Chloride (98-107) mmol/L Carbon Dioxide (22-30) mmol/L Anion Gap (10-20) BUN (9-20) mg/dL Creatinine (0.8-1.5) mg/dL Est GFR ( Amer) Est GFR (Non-Af Amer) POC Glucose (mg/dL) 206 H 163 H 177 H (65-110) mg/dL Random Glucose (75-110) mg/dL Calcium (8.6-10.4) mg/dl Phosphorus (2.5-4.5) mg/dL Magnesium (1.6-2.3) mg/dL Total Bilirubin (0.2-1.3) mg/dL AST (17-59) U/L ALT (21-72) U/L Alkaline Phosphatase (38-126) U/L Total Protein (6.3-8.3) g/dL Albumin (3.5-5.0) g/dL Globulin (2.2-3.9) gm/dL Albumin/Globulin Ratio (1.0-2.1) Laboratory Results - last 24 hr 03/14/18 03/14/18 03/14/18 11:29 16:21 21:21 WBC RBC Hgb Hct MCV MCH MCHC RDW Plt Count MPV Neut % (Auto) Lymph % (Auto) [place] % (Auto) Eos % (Auto) Baso % (Auto) Neut # (Auto) Lymph # (Auto) [place] # (Auto) Eos # (Auto) Baso # (Auto) Neutrophils % (Manual) Band Neutrophils % Lymphocytes % (Manual) Monocytes % (Manual) Platelet Estimate Large Platelets Polychromasia Hypochromasia (manual) Basophilic Stippling Anisocytosis (manual) Sodium Potassium Chloride Carbon Dioxide Anion Gap BUN Creatinine Est GFR ( Amer) Est GFR (Non-Af Amer) POC Glucose (mg/dL) 177 H 163 H 206 H Random Glucose Calcium Phosphorus Magnesium Total Bilirubin AST ALT Alkaline Phosphatase Total Protein Albumin Globulin Albumin/Globulin Ratio 03/15/18 03/15/18 03/15/18 05:38 05:38 07:54 WBC 7.3 RBC 3.49 L Hgb 10.2 L Hct 31.3 L MCV 89.7 MCH 29.3 MCHC 32.7 L RDW 15.4 H Plt Count 719 H MPV 7.4 Neut % (Auto) 93.8 H Lymph % (Auto) 2.[address] [place] % (Auto) 3.2 Eos % (Auto) 0.0 Baso % (Auto) 0.1 Neut # (Auto) 6.8 Lymph # (Auto) 0.[address] [place] # (Auto) 0.2 Eos # (Auto) 0.0 Baso # (Auto) 0.0 Neutrophils % (Manual) 94 H Band Neutrophils % 1 Lymphocytes % (Manual) 3 L Monocytes % (Manual) 2 Platelet Estimate Increased H Large Platelets Present Polychromasia Slight Hypochromasia (manual) Slight Basophilic Stippling Slight Anisocytosis (manual) Slight Sodium 135 Potassium 3.2 L Chloride 88 L Carbon Dioxide 40 H* Anion Gap 10 BUN 19 Creatinine 0.3 L Est GFR ( Amer) > 60 Est GFR (Non-Af Amer) > 60 POC Glucose (mg/dL) 148 H Random Glucose 136 H Calcium 8.7 Phosphorus 3.1 Magnesium 1.7 Total Bilirubin 1.0 AST 29 ALT 39 Alkaline Phosphatase 112 Total Protein 7.5 Albumin 3.7 Globulin 3.8 Albumin/Globulin Ratio 1.0 Radiology Impressions: Radiology Impressions Chest X-Ray 03/15/18 07:00 IMPRESSION: Little interval change in left lower lobe atelectasis/pneumonia and suspected small left pleural effusion. Suspect interstitial fibrosis in the right lung and right basilar atelectasis/scarring. Critical Care Progress Note - Nutrition Nutrition: Nutrition Category Date Time Status Pureed [Dysphagia/Modified Consistency Diet] [DIET] Diets 03/12/18 Breakfast Active Assessment/Plan - Assessment and Plan (Free Text) Plan: Above patient seen and examined at bedside. Patient remains hemodynamically stable. -tolerating high -flow -tolerating oral diet -continue above management -Patient remains hemodynamically stable. - Date & Time Date: 03/14/18 Time: 19:00
--- NOTE | 2018-03-14 13:40 | CP.PCM.PN ---
Subjective - Date & Time of Evaluation Date of Evaluation: 03/14/18 Time of Evaluation: 13:39 - Subjective Subjective: Currently patient is agitated, as he wants to go home. Patient has periods of tachypnea and tachycardia. has indicated that patient should not have any DNR or DNI and continue all the medical therapy and life support if needed. This was her decision when patient was originally admitted. We will continue the ICU protocol. Objective - Vital Signs/Intake and Output Vital Signs (last 24 hours): Temp Pulse Resp BP Pulse Ox 97.6 F 103 H 32 H 114/66 100 03/14/18 04:00 03/14/18 08:00 03/14/18 13:26 03/14/18 11:50 03/14/18 08:00 Intake and Output: 03/14/18 03/14/18 11:59 23:59 Intake Total 440 Output Total 600 Balance -160 - Medications Medications: Current Medications Acetaminophen (Tylenol 650mg/20.3ml Solution Ud) 650 mg NG Q6 PRN PRN Reason: Fever >100.4 F Last Admin: 03/07/18 05:29 Dose: 650 mg Albuterol/Ipratropium (Duoneb 3 Mg/0.5 Mg (3 Ml) Ud) 3 ml INH RQ6 VELMA Last Admin: 03/14/18 13:24 Dose: 3 ml Diltiazem HCl (Cardizem Cd) 180 mg PO DAILY VELMA Last Admin: 03/14/18 10:15 Dose: 180 mg Enoxaparin Sodium (Lovenox) 30 mg SC DAILY VELMA Last Admin: 03/14/18 10:15 Dose: 30 mg Fludrocortisone Acetate (Florinef) 0.1 mg PO DAILY VELMA Last Admin: 03/14/18 11:27 Dose: 0.1 mg Micafungin Sodium 100 mg/ (Sodium Chloride) 100 mls @ 100 mls/hr IV Q24H VELMA; Protocol Last Admin: 03/14/18 00:41 Dose: 100 mls/hr Meropenem 500 mg/ Sodium (Chloride) 100 mls @ 100 mls/hr IVPB Q8H VELMA; Protocol Last Admin: 03/14/18 08:31 Dose: 100 mls/hr Methylprednisolone (Solu-Medrol) 40 mg IVP Q8H VELMA Last Admin: 03/14/18 10:16 Dose: 40 mg Pantoprazole Sodium (Protonix Ec Tab) 40 mg PO DAILY VELMA Last Admin: 03/14/18 10:15 Dose: 40 mg - Labs Labs: 03/14/18 06:10 03/14/18 06:10
--- NOTE | 2018-03-14 20:43 | CP.PCM.PN ---
Subjective - Date & Time of Evaluation Date of Evaluation: 03/14/18 Time of Evaluation: 20:43 - Subjective Subjective: AFEBRILE, REMAINS EXTUBATED DAY-2 PT REMAINS TACHPNEIC/ TACHCARDIAC LOOKS LETHARGIC. FAMILY WISHES NOTED. LABS REVIEWED: Objective - Vital Signs/Intake and Output Vital Signs (last 24 hours): Temp Pulse Resp BP Pulse Ox 97.8 F 101 H 40 H 92/61 L 98 03/14/18 16:00 03/14/18 19:00 03/14/18 19:00 03/14/18 18:07 03/14/18 19:00 Intake and Output: 03/14/18 03/15/18 18:59 06:59 Intake Total 650 Output Total 1050 0 Balance -400 0 - Medications Medications: Current Medications Acetaminophen (Tylenol 650mg/20.3ml Solution Ud) 650 mg NG Q6 PRN PRN Reason: Fever >100.4 F Last Admin: 03/07/18 05:29 Dose: 650 mg Albuterol/Ipratropium (Duoneb 3 Mg/0.5 Mg (3 Ml) Ud) 3 ml INH RQ6 VELMA Last Admin: 03/14/18 19:40 Dose: Not Given Diltiazem HCl (Cardizem Cd) 180 mg PO DAILY VELMA Last Admin: 03/14/18 10:15 Dose: 180 mg Enoxaparin Sodium (Lovenox) 30 mg SC DAILY VELMA Last Admin: 03/14/18 10:15 Dose: 30 mg Fludrocortisone Acetate (Florinef) 0.1 mg PO DAILY VELMA Last Admin: 03/14/18 11:27 Dose: 0.1 mg Micafungin Sodium 100 mg/ (Sodium Chloride) 100 mls @ 100 mls/hr IV Q24H VELMA; Protocol Last Admin: 03/14/18 00:41 Dose: 100 mls/hr Meropenem 500 mg/ Sodium (Chloride) 100 mls @ 100 mls/hr IVPB Q8H VELMA; Protocol Last Admin: 03/14/18 18:47 Dose: 100 mls/hr Methylprednisolone (Solu-Medrol) 40 mg IVP Q8H VELMA Last Admin: 03/14/18 18:47 Dose: 40 mg Pantoprazole Sodium (Protonix Ec Tab) 40 mg PO DAILY VELMA Last Admin: 03/14/18 10:15 Dose: 40 mg - Labs Labs: 03/14/18 06:10 03/14/18 06:10 - Constitutional Appears: No Acute Distress, Cachectic, Chronically Ill - Head Exam Head Exam: NORMAL INSPECTION - Eye Exam Eye Exam: EOMI, PERRL. absent: Scleral icterus - ENT Exam ENT Exam: Normal Oropharynx - Neck Exam Neck Exam: Normal Inspection - Respiratory Exam Respiratory Exam: Rhonchi, Wheezes - Cardiovascular Exam Cardiovascular Exam: Tachycardia, REGULAR RHYTHM, +S1, +S2 - GI/Abdominal Exam GI & Abdominal Exam: Soft, Normal Bowel Sounds - Extremities Exam Extremities Exam: Normal Capillary Refill, Pedal Edema. absent: Calf Tenderness - Neurological Exam Neurological Exam: Awake, CN II-XII Intact - Psychiatric Exam Psychiatric exam: Normal Mood - Skin Skin Exam: Normal Color, Warm Assessment and Plan (1) Sepsis associated hypotension Status: Acute (2) Respiratory failure requiring intubation Status: Acute (3) Altered mental status Status: Acute (4) Pneumonia Status: Acute (5) Abdominal pain Status: Acute (6) Cholelithiases Status: Acute - Assessment and Plan (Free Text) Plan: CONTINUE IV MERREM 500MG IVPB Q8HRLY 03/04/18 CONTINUE IV MYCAFUNGIN 100MG IV PB Q 24 HRLY 03/04/18. PULMONARY TOILET. PER PTS FAMILY , PT FULL CODE. DISCUSSIONS ONGOING PER PALLIATIVE CARE-UNABLE TO GET ON PHONE. MONITOR RENAL FUNCTION PER PULMONARY.
[2018-03-15] MEDS: Meropenem 500 MG in Sodium Chloride 0.9% 100 ML IVPB SCH ×3 (01:10→17:20)
[2018-03-15] MEDS: Micafungin 100 MG in Sodium Chloride 0.9% 100 ML IV SCH (01:11)
[2018-03-15] MEDS: Albuterol-Ipratrop 3 mg / 0.5 (3 ml) UD INH SCH ×5 (01:33→20:10)
[2018-03-15] MEDS: MethylPREDNISolone 40 mg Vial IVP SCH ×3 (01:58→18:05)
[2018-03-15 05:42] LABS: BASO % 0.1 % (0.0-2.0); HEMOGLOBIN 10.2 g/dL (12.0-18.0); LYMPH # 0.2 K/uL (1.0-4.3); LYMPH % 2.9 % (20.0-40.0); MEAN CELL VOLUME 89.7 fL (80.0-94.0); MEAN CORPUSCULAR HEMOGLOBIN 29.3 pg (27.0-31.0); MEAN CORPUSCULAR HGB CONC 32.7 g/dL (33.0-37.0); MEAN PLATELET VOLUME 7.4 fL (7.2-11.7); MONO # 0.2 K/uL (0.0-0.8); MONO % 3.2 % (0.0-10.0); NEUT # 6.8 K/uL (1.8-7.0); NEUT % 93.8 % (50.0-75.0); NRBC % 0.1 % (0.0-2.0); PLATELET COUNT 719 K/uL (130-400); RBC 3.49 Mil/uL (4.40-5.90); RED CELL DISTRIBUTION WIDTH 15.4 % (11.5-14.5); WHITE BLOOD COUNT 7.3 K/uL (4.8-10.8)
[2018-03-15 05:57] LABS: ALBUMIN 3.7 g/dL (3.5-5.0); ALT/SGPT 39 U/L (21-72); AST/SGOT 29 U/L (17-59); BLOOD UREA NITROGEN 19 mg/dL (9-20); CALCIUM 8.7 mg/dl (8.6-10.4); GFR NON-AFRICAN AMERICAN > 60
[2018-03-15 08:36] LABS: ANISOCYTOSIS SLIGHT; BANDS 1 % (0-2); LARGE PLATELETS PRESENT; LYMPHOCYTE 3 % (20-40); MONOCYTE 2 % (0-10); NEUTROPHIL 94 % (50-75); PLATELET ESTIMATE INCREASED (NORMAL); TOTAL CELLS COUNTED 100
[2018-03-15 08:37] LABS: HYPOCHROMIC SLIGHT; POLYCHROMIC SLIGHT
[2018-03-15] MEDS: Magnesium Sulfate 1 gm in D5W 1 GM/100 ML BAG IVPB SCH ×2 (09:55→10:25)
--- NOTE | 2018-03-15 10:38 | RAD ---
Date of service: 03/15/2018 HISTORY: pna, copd, sob COMPARISON: 03/12/2018. FINDINGS: The right PICC line terminates in the SVC. LUNGS: There are low lung volumes. There is atelectasis/scarring in the right lung base. There is also interstitial thickening in the right lung. There is persistent airspace disease in the left lower lobe and shift of mediastinum to the left. PLEURA: No large right pleural effusion or pneumothorax. There blunting of the left costophrenic angle CARDIOVASCULAR: The heart is normal in size. No aortic atherosclerotic calcification present. OSSEOUS STRUCTURES: Within normal limits for the patient's age. VISUALIZED UPPER ABDOMEN: There is gaseous distention of visualized colon. OTHER FINDINGS: None. IMPRESSION: Little interval change in left lower lobe atelectasis/pneumonia and suspected small left pleural effusion. Suspect interstitial fibrosis in the right lung and right basilar atelectasis/scarring.
[2018-03-15] MEDS: Pantoprazole 40 mg EC Tab PO SCH (10:44)
[2018-03-15] MEDS: Enoxaparin 30 mg Syringe SC SCH (10:45)
[2018-03-15] MEDS: diltiaZEM 240 mg/24 Hours CD Cap PO SCH (10:55)
--- NOTE | 2018-03-15 14:26 | CP.PCM.PN ---
Subjective - Date & Time of Evaluation Date of Evaluation: 03/15/18 Time of Evaluation: 14:25 - Subjective Subjective: Currently patient is in no acute distress. Vital signs are stable input output is stable Chest x-ray shows chronic fibrotic changes Continue nasal cannula oxygen. Transfer to floor. Objective - Vital Signs/Intake and Output Vital Signs (last 24 hours): Temp Pulse Resp BP Pulse Ox 97.9 F 97 H 26 H 120/62 99 03/15/18 12:00 03/15/18 13:44 03/15/18 14:07 03/15/18 13:44 03/15/18 13:44 Intake and Output: 03/15/18 03/15/18 11:59 23:59 Intake Total 1650 600 Output Total 200 Balance 1450 600 - Medications Medications: Current Medications Acetaminophen (Tylenol 650mg/20.3ml Solution Ud) 650 mg NG Q6 PRN PRN Reason: Fever >100.4 F Last Admin: 03/07/18 05:29 Dose: 650 mg Albuterol/Ipratropium (Duoneb 3 Mg/0.5 Mg (3 Ml) Ud) 3 ml INH RQ6 [facility] Last Admin: 03/15/18 08:10 Dose: 3 ml Diltiazem HCl (Cardizem Cd) 240 mg PO DAILY [facility] Last Admin: 03/15/18 10:55 Dose: 240 mg Enoxaparin Sodium (Lovenox) 30 mg SC DAILY [facility] Last Admin: 03/15/18 10:45 Dose: 30 mg Fludrocortisone Acetate (Florinef) 0.1 mg PO DAILY [facility] Last Admin: 03/15/18 10:55 Dose: 0.1 mg Micafungin Sodium 100 mg/ (Sodium Chloride) 100 mls @ 100 mls/hr IV Q24H [facility]; Protocol Last Admin: 03/15/18 01:11 Dose: 100 mls/hr Meropenem 500 mg/ Sodium (Chloride) 100 mls @ 100 mls/hr IVPB Q8H [facility]; Protocol Last Admin: 03/15/18 08:20 Dose: 100 mls/hr Potassium Chloride (Potassium Chloride 20 Meq/100 Ml) 20 meq in 100 mls @ 50 mls/hr IVPB Q2H [facility] Stop: 03/15/18 15:59 Methylprednisolone (Solu-Medrol) 40 mg IVP Q8H [facility] Last Admin: 03/15/18 10:48 Dose: 40 mg Pantoprazole Sodium (Protonix Ec Tab) 40 mg PO DAILY [facility] Last Admin: 03/15/18 10:44 Dose: 40 mg - Labs Labs: 03/15/18 05:38 03/15/18 05:38
--- NOTE | 2018-03-15 20:08 | CP.PCM.PN ---
Subjective - Date & Time of Evaluation Date of Evaluation: 03/15/18 Time of Evaluation: 20:08 - Subjective Subjective: AFEBRILE, REMAINS EXTUBATED DAY-3 LOOKS LETHARGIC. ON IV ABX Objective - Vital Signs/Intake and Output Vital Signs (last 24 hours): Temp Pulse Resp BP Pulse Ox 98.2 F 82 23 116/64 99 03/15/18 16:00 03/15/18 19:00 03/15/18 19:00 03/15/18 18:44 03/15/18 19:00 Intake and Output: 03/15/18 03/16/18 18:59 06:59 Intake Total 2300 Output Total 1400 Balance 900 - Medications Medications: Current Medications Acetaminophen (Tylenol 650mg/20.3ml Solution Ud) 650 mg NG Q6 PRN PRN Reason: Fever >100.4 F Last Admin: 03/07/18 05:29 Dose: 650 mg Albuterol/Ipratropium (Duoneb 3 Mg/0.5 Mg (3 Ml) Ud) 3 ml INH RQ6 [facility] Last Admin: 03/15/18 20:05 Dose: Not Given Diltiazem HCl (Cardizem Cd) 240 mg PO DAILY [facility] Last Admin: 03/15/18 10:55 Dose: 240 mg Enoxaparin Sodium (Lovenox) 30 mg SC DAILY [facility] Last Admin: 03/15/18 10:45 Dose: 30 mg Fludrocortisone Acetate (Florinef) 0.1 mg PO DAILY [facility] Last Admin: 03/15/18 10:55 Dose: 0.1 mg Micafungin Sodium 100 mg/ (Sodium Chloride) 100 mls @ 100 mls/hr IV Q24H [facility]; Protocol Last Admin: 03/15/18 01:11 Dose: 100 mls/hr Meropenem 500 mg/ Sodium (Chloride) 100 mls @ 100 mls/hr IVPB Q8H [facility]; Protocol Last Admin: 03/15/18 17:20 Dose: 100 mls/hr Methylprednisolone (Solu-Medrol) 40 mg IVP Q8H [facility] Last Admin: 03/15/18 18:05 Dose: 40 mg Pantoprazole Sodium (Protonix Ec Tab) 40 mg PO DAILY [facility] Last Admin: 03/15/18 10:44 Dose: 40 mg - Labs Labs: 03/15/18 05:38 03/15/18 05:38 - Constitutional Appears: No Acute Distress, Cachectic, Chronically Ill - Head Exam Head Exam: NORMOCEPHALIC - Eye Exam Eye Exam: EOMI, PERRL - ENT Exam ENT Exam: Normal Oropharynx - Neck Exam Neck Exam: Normal Inspection - Respiratory Exam Respiratory Exam: Decreased Breath Sounds, NORMAL BREATHING PATTERN - Cardiovascular Exam Cardiovascular Exam: REGULAR RHYTHM, +S1, +S2 - GI/Abdominal Exam GI & Abdominal Exam: Soft, Normal Bowel Sounds - Extremities Exam Extremities Exam: Normal Capillary Refill. absent: Calf Tenderness, Pedal Edema - Neurological Exam Neurological Exam: Awake, CN II-XII Intact - Psychiatric Exam Psychiatric exam: Flat Affect - Skin Skin Exam: Normal Color, Warm Assessment and Plan (1) Sepsis associated hypotension Status: Acute (2) Respiratory failure requiring intubation Status: Acute (3) Altered mental status Status: Acute (4) Pneumonia Status: Acute (5) Abdominal pain Status: Acute (6) Cholelithiases Status: Acute - Assessment and Plan (Free Text) Plan: CONTINUE IV MERREM 500MG IVPB Q8HRLY 03/04/18 CONTINUE IV MYCAFUNGIN 100MG IV PB Q 24 HRLY 03/04/18. PULMONARY TOILET. PER PTS FAMILY , PT FULL CODE.
[2018-03-16] MEDS: Meropenem 500 MG in Sodium Chloride 0.9% 100 ML IVPB SCH ×3 (00:34→17:09)
[2018-03-16] MEDS: Micafungin 100 MG in Sodium Chloride 0.9% 100 ML IV SCH (00:34)
[2018-03-16] MEDS: Albuterol-Ipratrop 3 mg / 0.5 (3 ml) UD INH SCH ×3 (01:20→19:44)
[2018-03-16] MEDS: MethylPREDNISolone 40 mg Vial IVP SCH ×3 (02:19→17:14)
[2018-03-16 06:45] LABS: BASO % 0.1 % (0.0-2.0); HEMOGLOBIN 10.6 g/dL (12.0-18.0); LYMPH # 0.2 K/uL (1.0-4.3); MEAN CELL VOLUME 91.6 fL (80.0-94.0); MEAN CORPUSCULAR HEMOGLOBIN 30.5 pg (27.0-31.0); MEAN CORPUSCULAR HGB CONC 33.3 g/dL (33.0-37.0); MEAN PLATELET VOLUME 7.3 fL (7.2-11.7); MONO # 0.4 K/uL (0.0-0.8); NEUT # 4.5 K/uL (1.8-7.0); NEUT % 89.9 % (50.0-75.0); NRBC % 0.1 % (0.0-2.0); PLATELET COUNT 708 K/uL (130-400); RBC 3.49 Mil/uL (4.40-5.90); RED CELL DISTRIBUTION WIDTH 16.1 % (11.5-14.5)
[2018-03-16 07:03] LABS: ALBUMIN 3.7 g/dL (3.5-5.0); ALT/SGPT 49 U/L (21-72); AST/SGOT 33 U/L (17-59); BLOOD UREA NITROGEN 16 mg/dL (9-20); CALCIUM 8.9 mg/dl (8.6-10.4); GFR NON-AFRICAN AMERICAN > 60
[2018-03-16 08:29] LABS: LYMPHOCYTE 3 % (20-40); MONOCYTE 5 % (0-10); NEUTROPHIL 92 % (50-75); TOTAL CELLS COUNTED 100
[2018-03-16 08:30] LABS: ANISOCYTOSIS SLIGHT; PLATELET ESTIMATE INCREASED (NORMAL); TOXIC GRANULATION PRESENT
[2018-03-16 08:31] LABS: HYPOCHROMIC SLIGHT; LARGE PLATELETS PRESENT; POLYCHROMIC SLIGHT
[2018-03-16 08:32] LABS: TARGET CELLS SLIGHT
[2018-03-16] MEDS: Enoxaparin 30 mg Syringe SC SCH (09:42)
[2018-03-16] MEDS: Pantoprazole 40 mg EC Tab PO SCH (09:43)
[2018-03-16] MEDS: diltiaZEM 240 mg/24 Hours CD Cap PO SCH ×2 (09:43→09:55)
[2018-03-16] MEDS: Potassium Chloride 20 mEq/15 ml LIQ UD PO SCH ×4 (09:44→21:52)
--- NOTE | 2018-03-16 16:21 | CP.PCM.PN ---
Subjective - Date & Time of Evaluation Date of Evaluation: 03/16/18 Time of Evaluation: 16:19 - Subjective Subjective: DR GARCIA'S COVERAGE APPRECIATED. CHART REVIEWED. PT AWAKE, ON HIGH FLOW O2. NO DISTRESS. ROS; UNOBTAINABLE. Objective - Vital Signs/Intake and Output Vital Signs (last 24 hours): Temp Pulse Resp BP Pulse Ox 97.8 F 98 H 27 H 137/81 97 03/16/18 16:00 03/16/18 16:00 03/16/18 16:02 03/16/18 15:44 03/16/18 16:00 Intake and Output: 03/16/18 03/16/18 06:59 18:59 Intake Total 590 880 Output Total 1270 350 Balance -680 530 - Medications Medications: Current Medications Acetaminophen (Tylenol 650mg/20.3ml Solution Ud) 650 mg NG Q6 PRN PRN Reason: Fever >100.4 F Last Admin: 03/07/18 05:29 Dose: 650 mg Albuterol/Ipratropium (Duoneb 3 Mg/0.5 Mg (3 Ml) Ud) 3 ml INH RQ6 [facility] Last Admin: 03/16/18 07:20 Dose: 3 ml Diltiazem HCl (Cardizem Cd) 240 mg PO DAILY [facility] Last Admin: 03/16/18 09:55 Dose: Not Given Enoxaparin Sodium (Lovenox) 30 mg SC DAILY [facility] Last Admin: 03/16/18 09:42 Dose: 30 mg Fludrocortisone Acetate (Florinef) 0.1 mg PO DAILY [facility] Last Admin: 03/16/18 09:43 Dose: 0.1 mg Micafungin Sodium 100 mg/ (Sodium Chloride) 100 mls @ 100 mls/hr IV Q24H [facility]; Protocol Last Admin: 03/16/18 00:34 Dose: 100 mls/hr Meropenem 500 mg/ Sodium (Chloride) 100 mls @ 100 mls/hr IVPB Q8H [facility]; Protocol Last Admin: 03/16/18 09:42 Dose: 100 mls/hr Methylprednisolone (Solu-Medrol) 40 mg IVP Q8H [facility] Last Admin: 03/16/18 09:43 Dose: 40 mg Pantoprazole Sodium (Protonix Ec Tab) 40 mg PO DAILY [facility] Last Admin: 03/16/18 09:43 Dose: 40 mg Potassium Chloride (Potassium Chloride Oral Soln) 40 meq PO Q6H [facility] Stop: 03/17/18 03:16 Last Admin: 03/16/18 15:25 Dose: Not Given - Labs Labs: 03/16/18 06:37 03/16/18 06:37 - Constitutional Appears: No Acute Distress, Confused, Cachectic, Chronically Ill - Head Exam Head Exam: ATRAUMATIC, NORMOCEPHALIC - Eye Exam Eye Exam: EOMI, Normal appearance - ENT Exam ENT Exam: Mucous Membranes Moist - Neck Exam Neck Exam: Normal Inspection - Respiratory Exam Respiratory Exam: Rhonchi. absent: Accessory Muscle Use, Respiratory Distress - Cardiovascular Exam Cardiovascular Exam: RRR, +S1, +S2 - GI/Abdominal Exam GI & Abdominal Exam: Soft. absent: Tenderness - Rectal Exam Rectal Exam: Deferred - Extremities Exam Extremities Exam: absent: Calf Tenderness, Pedal Edema - Back Exam Back Exam: absent: CVA tenderness (L), CVA tenderness (R) - Neurological Exam Neurological Exam: Alert, Awake, CN II-XII Intact. absent: Oriented x3 - Psychiatric Exam Psychiatric exam: Normal Mood - Skin Skin Exam: absent: Rash Assessment and Plan (1) Septic shock Status: Acute (2) Altered mental status Status: Acute (3) Pneumonia Status: Acute (4) Respiratory failure requiring intubation Status: Acute (5) COPD exacerbation Status: Acute (6) Cachexia Status: Acute (7) Cholelithiases Status: Acute (8) Alzheimer disease Status: Chronic - Assessment and Plan (Free Text) Assessment: RESP STATUS STABLE S/P EXTUBATION 3 DAYS AGO. ,TOLERATING HIGH FLOW 25% O2 . MONITOR O2 SAT. CONT PULM TOILET, NEB BD., CXR REVIEWED. AB PER ID. ENCOURAGE PO INTAKE. INCREASE OOB. PROG POOR. DISCUSSED WITH STAFF AT LENGTH. TIME SPENT 1 HR.
--- NOTE | 2018-03-16 16:39 | CP.PCM.PN ---
Subjective - Date & Time of Evaluation Date of Evaluation: 03/16/18 Time of Evaluation: 16:38 - Subjective Subjective: Currently patient is in no acute distress. Vital signs are stable input output is stable Chest x-ray shows chronic fibrotic changes Continue nasal cannula oxygen. Transfer to floor. Objective - Vital Signs/Intake and Output Vital Signs (last 24 hours): Temp Pulse Resp BP Pulse Ox 97.8 F 98 H 27 H 137/81 97 03/16/18 16:00 03/16/18 16:00 03/16/18 16:02 03/16/18 15:44 03/16/18 16:00 Intake and Output: 03/16/18 03/16/18 11:59 23:59 Intake Total 1200 220 Output Total 850 350 Balance 350 -130 - Medications Medications: Current Medications Acetaminophen (Tylenol 650mg/20.3ml Solution Ud) 650 mg NG Q6 PRN PRN Reason: Fever >100.4 F Last Admin: 03/07/18 05:29 Dose: 650 mg Albuterol/Ipratropium (Duoneb 3 Mg/0.5 Mg (3 Ml) Ud) 3 ml INH RQ6 [facility] Last Admin: 03/16/18 07:20 Dose: 3 ml Diltiazem HCl (Cardizem Cd) 240 mg PO DAILY [facility] Last Admin: 03/16/18 09:55 Dose: Not Given Enoxaparin Sodium (Lovenox) 30 mg SC DAILY [facility] Last Admin: 03/16/18 09:42 Dose: 30 mg Fludrocortisone Acetate (Florinef) 0.1 mg PO DAILY [facility] Last Admin: 03/16/18 09:43 Dose: 0.1 mg Micafungin Sodium 100 mg/ (Sodium Chloride) 100 mls @ 100 mls/hr IV Q24H [facility]; Protocol Last Admin: 03/16/18 00:34 Dose: 100 mls/hr Meropenem 500 mg/ Sodium (Chloride) 100 mls @ 100 mls/hr IVPB Q8H [facility]; Protocol Last Admin: 03/16/18 09:42 Dose: 100 mls/hr Methylprednisolone (Solu-Medrol) 40 mg IVP Q8H [facility] Last Admin: 03/16/18 09:43 Dose: 40 mg Pantoprazole Sodium (Protonix Ec Tab) 40 mg PO DAILY [facility] Last Admin: 03/16/18 09:43 Dose: 40 mg Potassium Chloride (Potassium Chloride Oral Soln) 40 meq PO Q6H [facility] Stop: 03/17/18 03:16 Last Admin: 03/16/18 15:25 Dose: Not Given - Labs Labs: 03/16/18 06:37 03/16/18 06:37
--- NOTE | 2018-03-16 20:53 | CP.PCM.PN ---
Subjective - Date & Time of Evaluation Date of Evaluation: 03/16/18 Time of Evaluation: 20:53 - Subjective Subjective: AFEBRILE , TACHY/TACHYPNEIC ON NASAL CANNULA O2 3L. NAEO ON IV ABX Objective - Vital Signs/Intake and Output Vital Signs (last 24 hours): Temp Pulse Resp BP Pulse Ox 97.8 F 101 H 32 H 135/80 98 03/16/18 16:00 03/16/18 19:44 03/16/18 19:44 03/16/18 19:44 03/16/18 19:44 Intake and Output: 03/16/18 03/17/18 18:59 06:59 Intake Total 1100 Output Total 350 200 Balance 750 -200 - Medications Medications: Current Medications Acetaminophen (Tylenol 650mg/20.3ml Solution Ud) 650 mg NG Q6 PRN PRN Reason: Fever >100.4 F Last Admin: 03/07/18 05:29 Dose: 650 mg Albuterol/Ipratropium (Duoneb 3 Mg/0.5 Mg (3 Ml) Ud) 3 ml INH RQ6 [facility] Last Admin: 03/16/18 19:44 Dose: 3 ml Diltiazem HCl (Cardizem Cd) 240 mg PO DAILY [facility] Last Admin: 03/16/18 09:55 Dose: Not Given Enoxaparin Sodium (Lovenox) 30 mg SC DAILY [facility] Last Admin: 03/16/18 09:42 Dose: 30 mg Fludrocortisone Acetate (Florinef) 0.1 mg PO DAILY [facility] Last Admin: 03/16/18 09:43 Dose: 0.1 mg Micafungin Sodium 100 mg/ (Sodium Chloride) 100 mls @ 100 mls/hr IV Q24H [facility]; Protocol Last Admin: 03/16/18 00:34 Dose: 100 mls/hr Meropenem 500 mg/ Sodium (Chloride) 100 mls @ 100 mls/hr IVPB Q8H [facility]; Protocol Last Admin: 03/16/18 17:09 Dose: 100 mls/hr Methylprednisolone (Solu-Medrol) 40 mg IVP Q8H [facility] Last Admin: 03/16/18 17:14 Dose: 40 mg Pantoprazole Sodium (Protonix Ec Tab) 40 mg PO DAILY [facility] Last Admin: 03/16/18 09:43 Dose: 40 mg Potassium Chloride (Potassium Chloride Oral Soln) 40 meq PO Q6H [facility] Stop: 03/17/18 03:16 Last Admin: 03/16/18 15:25 Dose: Not Given - Labs Labs: 03/16/18 06:37 03/16/18 06:37 - Constitutional Appears: No Acute Distress, Cachectic, Chronically Ill - Head Exam Head Exam: NORMAL INSPECTION - Eye Exam Eye Exam: EOMI, PERRL - ENT Exam ENT Exam: Normal Oropharynx - Neck Exam Neck Exam: Normal Inspection - Cardiovascular Exam Cardiovascular Exam: Tachycardia, REGULAR RHYTHM, +S1, +S2 - GI/Abdominal Exam GI & Abdominal Exam: Soft, Normal Bowel Sounds - Extremities Exam Extremities Exam: Normal Capillary Refill. absent: Calf Tenderness, Pedal Edema - Neurological Exam Neurological Exam: Awake, CN II-XII Intact, Reflexes Normal - Psychiatric Exam Psychiatric exam: Normal Mood - Skin Skin Exam: Normal Color, Warm Assessment and Plan (1) Sepsis associated hypotension Status: Acute (2) Respiratory failure requiring intubation Status: Acute (3) Altered mental status Status: Acute (4) Pneumonia Status: Acute (5) Abdominal pain Status: Acute (6) Cholelithiases Status: Acute - Assessment and Plan (Free Text) Plan: CONTINUE IV MERREM 500MG IVPB Q8HRLY 03/04/18 CONTINUE IV MYCAFUNGIN 100MG IV PB Q 24 HRLY 03/04/18. PER PTS FAMILY , PT FULL CODE. PULMONARY TOILET.
[2018-03-17] MEDS: Micafungin 100 MG in Sodium Chloride 0.9% 100 ML IV SCH
[2018-03-17] MEDS: Meropenem 500 MG in Sodium Chloride 0.9% 100 ML IVPB SCH ×3 (01:00→17:03)
[2018-03-17] MEDS: Albuterol-Ipratrop 3 mg / 0.5 (3 ml) UD INH SCH ×4 (01:12→19:09)
[2018-03-17] MEDS: MethylPREDNISolone 40 mg Vial IVP SCH ×3 (01:56→21:06)
[2018-03-17] MEDS: Potassium Chloride 20 mEq/15 ml LIQ UD PO SCH (04:00)
[2018-03-17 06:26] LABS: BASO % 0.1 % (0.0-2.0); HEMOGLOBIN 11.9 g/dL (12.0-18.0); LYMPH # 0.1 K/uL (1.0-4.3); LYMPH % 0.9 % (20.0-40.0); MEAN CELL VOLUME 91.4 fL (80.0-94.0); MEAN CORPUSCULAR HEMOGLOBIN 30.1 pg (27.0-31.0); MEAN PLATELET VOLUME 7.5 fL (7.2-11.7); MONO # 0.5 K/uL (0.0-0.8); MONO % 6.9 % (0.0-10.0); NEUT # 7.3 K/uL (1.8-7.0); NEUT % 92.1 % (50.0-75.0); PLATELET COUNT 746 K/uL (130-400); RBC 3.94 Mil/uL (4.40-5.90); RED CELL DISTRIBUTION WIDTH 16.4 % (11.5-14.5); WHITE BLOOD COUNT 7.9 K/uL (4.8-10.8)
[2018-03-17 06:39] LABS: ALBUMIN 4.2 g/dL (3.5-5.0); ALT/SGPT 44 U/L (21-72); AST/SGOT 39 U/L (17-59); BLOOD UREA NITROGEN 21 mg/dL (9-20); CALCIUM 9.2 mg/dl (8.6-10.4); GFR NON-AFRICAN AMERICAN > 60
[2018-03-17 07:40] LABS: BANDS 2 % (0-2); LYMPHOCYTE 1 % (20-40); MONOCYTE 6 % (0-10); NEUTROPHIL 91 % (50-75); PLATELET ESTIMATE INCREASED (NORMAL); TOTAL CELLS COUNTED 100
[2018-03-17 07:41] LABS: ANISOCYTOSIS SLIGHT; TARGET CELLS SLIGHT
[2018-03-17] MEDS: Enoxaparin 30 mg Syringe SC SCH (09:04)
[2018-03-17] MEDS: Pantoprazole 40 mg EC Tab PO SCH (09:04)
[2018-03-17] MEDS: diltiaZEM 240 mg/24 Hours CD Cap PO SCH (09:04)
--- NOTE | 2018-03-17 14:06 | CP.PCM.PN ---
Subjective - Date & Time of Evaluation Date of Evaluation: 03/17/18 Time of Evaluation: 14:06 - Subjective Subjective: Patient remains extubated Patient pulling out nasal cannula and IVs Patient has periods of confusion and agitation Potassium is low on IV KCl Chest x-ray shows chronic changes Continue supportive care. Objective - Vital Signs/Intake and Output Vital Signs (last 24 hours): Temp Pulse Resp BP Pulse Ox 97.4 F L 109 H 29 H 122/78 97 03/17/18 08:00 03/17/18 13:00 03/17/18 13:20 03/17/18 12:27 03/17/18 13:00 Intake and Output: 03/17/18 03/17/18 11:59 23:59 Intake Total 220 Output Total 0 Balance 220 - Medications Medications: Current Medications Albuterol/Ipratropium (Duoneb 3 Mg/0.5 Mg (3 Ml) Ud) 3 ml INH RQ6 [facility] Last Admin: 03/17/18 13:18 Dose: 3 ml Diltiazem HCl (Cardizem Cd) 240 mg PO DAILY [facility] Last Admin: 03/17/18 09:04 Dose: 240 mg Enoxaparin Sodium (Lovenox) 30 mg SC DAILY [facility] Last Admin: 03/17/18 09:04 Dose: 30 mg Fludrocortisone Acetate (Florinef) 0.1 mg PO DAILY [facility] Last Admin: 03/17/18 09:04 Dose: 0.1 mg Micafungin Sodium 100 mg/ (Sodium Chloride) 100 mls @ 100 mls/hr IV Q24H [facility]; Protocol Last Admin: 03/17/18 00:00 Dose: 100 mls/hr Meropenem 500 mg/ Sodium (Chloride) 100 mls @ 100 mls/hr IVPB Q8H [facility]; Protocol Last Admin: 03/17/18 09:04 Dose: 100 mls/hr Potassium Chloride (Potassium Chloride 20 Meq/100 Ml) 20 meq in 100 mls @ 50 mls/hr IVPB Q2 [facility] Stop: 03/17/18 15:59 Last Admin: 03/17/18 13:11 Dose: 50 mls/hr Methylprednisolone (Solu-Medrol) 40 mg IVP Q12 [facility] Pantoprazole Sodium (Protonix Ec Tab) 40 mg PO DAILY [facility] Last Admin: 03/17/18 09:04 Dose: 40 mg - Labs Labs: 12/31/18 06:10 03/17/18 06:09
--- NOTE | 2018-03-17 14:28 | CP.PCM.PN ---
Subjective - Date & Time of Evaluation Date of Evaluation: 03/17/18 Time of Evaluation: 14:26 - Subjective Subjective: PT AWAKE. ON HIGH FLOW. NO DISTRESS. ROS; OTHERWISE NEG. Objective - Vital Signs/Intake and Output Vital Signs (last 24 hours): Temp Pulse Resp BP Pulse Ox 97.4 F L 107 H 28 H 122/78 96 03/17/18 08:00 03/17/18 14:00 03/17/18 14:00 03/17/18 12:27 03/17/18 14:00 Intake and Output: 03/17/18 03/17/18 06:59 18:59 Intake Total 340 Output Total 300 Balance 40 - Medications Medications: Current Medications Albuterol/Ipratropium (Duoneb 3 Mg/0.5 Mg (3 Ml) Ud) 3 ml INH RQ6 [facility] Last Admin: 03/17/18 13:18 Dose: 3 ml Diltiazem HCl (Cardizem Cd) 240 mg PO DAILY [facility] Last Admin: 03/17/18 09:04 Dose: 240 mg Enoxaparin Sodium (Lovenox) 30 mg SC DAILY [facility] Last Admin: 03/17/18 09:04 Dose: 30 mg Fludrocortisone Acetate (Florinef) 0.1 mg PO DAILY [facility] Last Admin: 03/17/18 09:04 Dose: 0.1 mg Micafungin Sodium 100 mg/ (Sodium Chloride) 100 mls @ 100 mls/hr IV Q24H [facility]; Protocol Last Admin: 03/17/18 00:00 Dose: 100 mls/hr Meropenem 500 mg/ Sodium (Chloride) 100 mls @ 100 mls/hr IVPB Q8H [facility]; Protocol Last Admin: 03/17/18 09:04 Dose: 100 mls/hr Potassium Chloride (Potassium Chloride 20 Meq/100 Ml) 20 meq in 100 mls @ 50 mls/hr IVPB Q2 [facility] Stop: 03/17/18 15:59 Last Admin: 03/17/18 13:11 Dose: 50 mls/hr Methylprednisolone (Solu-Medrol) 40 mg IVP Q12 [facility] Pantoprazole Sodium (Protonix Ec Tab) 40 mg PO DAILY [facility] Last Admin: 03/17/18 09:04 Dose: 40 mg - Labs Labs: 03/17/18 06:10 12/31/18 06:09 - Constitutional Appears: No Acute Distress, Cachectic, Chronically Ill - Head Exam Head Exam: ATRAUMATIC, NORMOCEPHALIC - Eye Exam Eye Exam: EOMI, Normal appearance - ENT Exam ENT Exam: Mucous Membranes Moist - Respiratory Exam Respiratory Exam: Rhonchi. absent: Accessory Muscle Use, Wheezes, Respiratory Distress - Cardiovascular Exam Cardiovascular Exam: RRR, +S1, +S2 - GI/Abdominal Exam GI & Abdominal Exam: Soft. absent: Tenderness - Rectal Exam Rectal Exam: Deferred - Extremities Exam Extremities Exam: absent: Calf Tenderness, Pedal Edema - Back Exam Back Exam: absent: CVA tenderness (L), CVA tenderness (R) - Neurological Exam Neurological Exam: Alert, Awake, CN II-XII Intact. absent: Oriented x3 - Skin Skin Exam: absent: Rash Assessment and Plan (1) Septic shock Status: Acute (2) Altered mental status Status: Acute (3) Pneumonia Status: Acute (4) Respiratory failure requiring intubation Status: Acute (5) COPD exacerbation Status: Acute (6) Cachexia Status: Acute (7) Cholelithiases Status: Acute (8) Alzheimer disease Status: Chronic - Assessment and Plan (Free Text) Assessment: RESP STATUS NO SIG CHANGE. TOLERATING HIGH FLOW 25%. CONT PULM TOILET., NEB BD., MONITOR O2 SAT. CXR REVIEWED. AB PER ID. PROG POOR. DISCUSSED WITH STAFF AT LENGTH. TIME SPENT 45 MIN.
--- NOTE | 2018-03-17 19:04 | CP.PCM.PN ---
Subjective - Date & Time of Evaluation Date of Evaluation: 03/17/18 Time of Evaluation: 19:04 - Subjective Subjective: afebrile awake,reading some papers. comfortable. offers no new complaints. Objective - Vital Signs/Intake and Output Vital Signs (last 24 hours): Temp Pulse Resp BP Pulse Ox 98.3 F 114 H 35 H 139/85 100 03/17/18 15:12 03/17/18 17:05 03/17/18 17:00 03/17/18 16:27 03/17/18 17:00 - Medications Medications: Current Medications Albuterol/Ipratropium (Duoneb 3 Mg/0.5 Mg (3 Ml) Ud) 3 ml INH RQ6 [facility] Last Admin: 03/17/18 13:18 Dose: 3 ml Diltiazem HCl (Cardizem Cd) 240 mg PO DAILY [facility]S [facility]CLUDE 234 BEDS AT THE [facility] Last Admin: 03/17/18 09:04 Dose: 240 mg Enoxaparin Sodium (Lovenox) 30 mg SC DAILY [facility] Last Admin: 03/17/18 09:04 Dose: 30 mg Fludrocortisone Acetate (Florinef) 0.1 mg PO DAILY [facility] Last Admin: 03/17/18 09:04 Dose: 0.1 mg Micafungin Sodium 100 mg/ (Sodium Chloride) 100 mls @ 100 mls/hr IV Q24H [facility]; Protocol Last Admin: 03/17/18 00:00 Dose: 100 mls/hr Meropenem 500 mg/ Sodium (Chloride) 100 mls @ 100 mls/hr IVPB Q8H [facility]; Protocol Last Admin: 03/17/18 17:03 Dose: 100 mls/hr Methylprednisolone (Solu-Medrol) 40 mg IVP Q12 [facility] Pantoprazole Sodium (Protonix Ec Tab) 40 mg PO DAILY [facility] Last Admin: 03/17/18 09:04 Dose: 40 mg - Labs Labs: 03/17/18 06:10 03/17/18 06:09 - Constitutional Appears: No Acute Distress, Cachectic, Chronically Ill - Head Exam Head Exam: NORMAL INSPECTION - Eye Exam Eye Exam: EOMI, PERRL - ENT Exam ENT Exam: Normal Oropharynx - Neck Exam Neck Exam: Normal Inspection - Respiratory Exam Respiratory Exam: Rhonchi (B/L), NORMAL BREATHING PATTERN. absent: Accessory Muscle Use, Respiratory Distress - Cardiovascular Exam Cardiovascular Exam: Tachycardia, REGULAR RHYTHM, +S1, +S2 - GI/Abdominal Exam GI & Abdominal Exam: Soft, Normal Bowel Sounds - Extremities Exam Extremities Exam: Normal Capillary Refill. absent: Calf Tenderness, Pedal Edema - Neurological Exam Neurological Exam: Alert, Awake, CN II-XII Intact - Psychiatric Exam Psychiatric exam: Normal Mood - Skin Skin Exam: Normal Color, Warm Assessment and Plan (1) Sepsis associated hypotension Status: Acute (2) Respiratory failure requiring intubation Status: Acute (3) Altered mental status Status: Acute (4) Pneumonia Status: Acute (5) Abdominal pain Status: Acute (6) Cholelithiases Status: Acute - Assessment and Plan (Free Text) Plan: CONTINUE IV MERREM 500MG IVPB Q8HRLY 03/04/18 CONTINUE IV MYCAFUNGIN 100MG IV PB Q 24 HRLY 03/04/18. PER PTS FAMILY , PT FULL CODE. PULMONARY TOILET.
[2018-03-17] MEDS ORDERED: HYDROmorphone 0.5 mg/0.5 ml ISec IVP STA (20:18)
[2018-03-18] MEDS: Micafungin 100 MG in Sodium Chloride 0.9% 100 ML IV SCH (00:53)
[2018-03-18] MEDS: Meropenem 500 MG in Sodium Chloride 0.9% 100 ML IVPB SCH ×3 (01:57→17:18)
[2018-03-18] MEDS: Albuterol-Ipratrop 3 mg / 0.5 (3 ml) UD INH SCH ×3 (02:58→14:04)
[2018-03-18 06:37] LABS: BASO % 0.3 % (0.0-2.0); EOS % 0.1 % (0.0-4.0); HEMOGLOBIN 12.1 g/dL (12.0-18.0); LYMPH # 0.2 K/uL (1.0-4.3); LYMPH % 2.4 % (20.0-40.0); MEAN CELL VOLUME 92.9 fL (80.0-94.0); MEAN CORPUSCULAR HEMOGLOBIN 30.8 pg (27.0-31.0); MEAN CORPUSCULAR HGB CONC 33.2 g/dL (33.0-37.0); MEAN PLATELET VOLUME 7.9 fL (7.2-11.7); MONO # 0.5 K/uL (0.0-0.8); MONO % 6.5 % (0.0-10.0); NEUT # 6.5 K/uL (1.8-7.0); NEUT % 90.7 % (50.0-75.0); PLATELET COUNT 559 K/uL (130-400); RBC 3.93 Mil/uL (4.40-5.90); RED CELL DISTRIBUTION WIDTH 16.5 % (11.5-14.5); WHITE BLOOD COUNT 7.1 K/uL (4.8-10.8)
[2018-03-18 07:14] LABS: ALB/GLOB RATIO 1.1 (1.0-2.1); ALBUMIN 4.2 g/dL (3.5-5.0); ALT/SGPT 44 U/L (21-72); AST/SGOT 54 U/L (17-59); BLOOD UREA NITROGEN 25 mg/dL (9-20); CALCIUM 9.2 mg/dl (8.6-10.4); GFR NON-AFRICAN AMERICAN > 60
[2018-03-18 08:26] LABS: LYMPHOCYTE 2 % (20-40); MONOCYTE 6 % (0-10); NEUTROPHIL 92 % (50-75); PLATELET ESTIMATE INCREASED (NORMAL); TOTAL CELLS COUNTED 100
[2018-03-18 08:27] LABS: ANISOCYTOSIS SLIGHT; HYPOCHROMIC SLIGHT; POLYCHROMIC SLIGHT
[2018-03-18] MEDS: Enoxaparin 30 mg Syringe SC SCH (09:32)
[2018-03-18] MEDS: MethylPREDNISolone 40 mg Vial IVP SCH ×2 (09:32→22:00)
[2018-03-18] MEDS: Pantoprazole 40 mg EC Tab PO SCH (09:32)
[2018-03-18] MEDS: diltiaZEM 240 mg/24 Hours CD Cap PO SCH (09:32)
--- NOTE | 2018-03-18 11:03 | CP.PCM.PN ---
Subjective - Date & Time of Evaluation Date of Evaluation: 03/18/18 Time of Evaluation: 11:00 - Subjective Subjective: PT AWAKE. ON HIGH FLOW., NO DISTRESS. POOR APPETITE. ROS; OTHERWISE NEG. Objective - Vital Signs/Intake and Output Vital Signs (last 24 hours): Temp Pulse Resp BP Pulse Ox 96.4 F L 95 H 28 H 130/76 100 03/18/18 08:00 03/18/18 10:00 03/18/18 10:00 03/18/18 09:50 03/18/18 10:00 Intake and Output: 03/18/18 03/18/18 06:59 18:59 Intake Total 340 Balance 340 - Medications Medications: Current Medications Albuterol/Ipratropium (Duoneb 3 Mg/0.5 Mg (3 Ml) Ud) 3 ml INH RQ6 [facility] Last Admin: 03/18/18 09:10 Dose: Not Given Diltiazem HCl (Cardizem Cd) 240 mg PO DAILY [facility] Last Admin: 03/18/18 09:32 Dose: Not Given Enoxaparin Sodium (Lovenox) 30 mg SC DAILY [facility] Last Admin: 03/18/18 09:32 Dose: Not Given Fludrocortisone Acetate (Florinef) 0.1 mg PO DAILY [facility] Last Admin: 03/18/18 09:32 Dose: Not Given Micafungin Sodium 100 mg/ (Sodium Chloride) 100 mls @ 100 mls/hr IV Q24H [facility]; Protocol Last Admin: 03/18/18 00:53 Dose: 100 mls/hr Meropenem 500 mg/ Sodium (Chloride) 100 mls @ 100 mls/hr IVPB Q8H [facility]; Protocol Last Admin: 03/18/18 09:30 Dose: 100 mls/hr Methylprednisolone (Solu-Medrol) 40 mg IVP Q12 [facility] Last Admin: 03/18/18 09:32 Dose: 40 mg Pantoprazole Sodium (Protonix Ec Tab) 40 mg PO DAILY [facility] Last Admin: 03/18/18 09:32 Dose: Not Given - Labs Labs: 03/18/18 06:25 03/18/18 06:25 - Constitutional Appears: No Acute Distress, Cachectic, Chronically Ill - Head Exam Head Exam: ATRAUMATIC, NORMOCEPHALIC - Eye Exam Eye Exam: EOMI, Normal appearance - ENT Exam ENT Exam: Mucous Membranes Moist - Neck Exam Neck Exam: Normal Inspection - Respiratory Exam Respiratory Exam: Decreased Breath Sounds, Rhonchi - Cardiovascular Exam Cardiovascular Exam: RRR, +S1, +S2 - GI/Abdominal Exam GI & Abdominal Exam: Soft. absent: Tenderness - Rectal Exam Rectal Exam: Deferred - Extremities Exam Extremities Exam: absent: Calf Tenderness, Pedal Edema - Back Exam Back Exam: absent: CVA tenderness (L), CVA tenderness (R) - Neurological Exam Neurological Exam: Alert, Awake, CN II-XII Intact. absent: Oriented x3 - Psychiatric Exam Psychiatric exam: Normal Mood - Skin Skin Exam: absent: Rash Assessment and Plan (1) Septic shock Status: Acute (2) Altered mental status Status: Acute (3) Pneumonia Status: Acute (4) Respiratory failure requiring intubation Status: Acute (5) COPD exacerbation Status: Acute (6) Cachexia Status: Acute (7) Cholelithiases Status: Acute (8) Alzheimer disease Status: Chronic - Assessment and Plan (Free Text) Assessment: RESP STATUS REQUIRING HIGH FLOW 40% NOW.,S/P O2 DESAT LAST NIGHT. MONITOR O2 SAT. CONT PULM TOILET., NEB BD., CXR REVIEWED. CHECK REPEAT. AFEBRILE ON AB. ENCOURAGE PO INTAKE., PROG POOR. DISCUSSED WITH STAFF AT LENGTH. TIME SPENT 1HR.
--- NOTE | 2018-03-18 14:59 | CP.PCM.PN ---
Subjective - Date & Time of Evaluation Date of Evaluation: 03/18/18 Time of Evaluation: 14:59 - Subjective Subjective: Patient remains extubated Patient pulling out nasal cannula and IVs Patient has periods of confusion and agitation Potassium is low on IV KCl Chest x-ray shows chronic changes Continue supportive care Objective - Vital Signs/Intake and Output Vital Signs (last 24 hours): Temp Pulse Resp BP Pulse Ox 98.3 F 104 H 28 H 121/65 100 03/18/18 12:00 03/18/18 14:00 03/18/18 14:00 03/18/18 13:49 03/18/18 14:00 Intake and Output: 03/18/18 03/18/18 11:59 23:59 Intake Total 340 Balance 340 - Medications Medications: Current Medications Albuterol/Ipratropium (Duoneb 3 Mg/0.5 Mg (3 Ml) Ud) 3 ml INH RQ6 [facility] Last Admin: 03/18/18 14:04 Dose: Not Given Diltiazem HCl (Cardizem Cd) 240 mg PO DAILY [facility] Last Admin: 03/18/18 09:32 Dose: Not Given Enoxaparin Sodium (Lovenox) 30 mg SC DAILY [facility] Last Admin: 03/18/18 09:32 Dose: Not Given Fludrocortisone Acetate (Florinef) 0.1 mg PO DAILY [facility] Last Admin: 03/18/18 09:32 Dose: Not Given Micafungin Sodium 100 mg/ (Sodium Chloride) 100 mls @ 100 mls/hr IV Q24H [facility]; Protocol Last Admin: 03/18/18 00:53 Dose: 100 mls/hr Meropenem 500 mg/ Sodium (Chloride) 100 mls @ 100 mls/hr IVPB Q8H [facility]; Protocol Last Admin: 03/18/18 09:30 Dose: 100 mls/hr Methylprednisolone (Solu-Medrol) 40 mg IVP Q12 [facility] Last Admin: 03/18/18 09:32 Dose: 40 mg Pantoprazole Sodium (Protonix Ec Tab) 40 mg PO DAILY [facility] Last Admin: 03/18/18 09:32 Dose: Not Given - Labs Labs: 03/18/18 06:25 03/18/18 06:25
[2018-03-19] MEDS: Albuterol-Ipratrop 3 mg / 0.5 (3 ml) UD INH SCH ×4 (01:27→20:26)
[2018-03-19] MEDS: Meropenem 500 MG in Sodium Chloride 0.9% 100 ML IVPB SCH ×2 (01:34→18:47)
[2018-03-19] MEDS: Micafungin 100 MG in Sodium Chloride 0.9% 100 ML IV SCH (01:36)
[2018-03-19 07:09] LABS: BASO # 0.1 K/uL (0.0-0.2); BASO % 0.5 % (0.0-2.0); HEMOGLOBIN 11.2 g/dL (12.0-18.0); LYMPH # 0.1 K/uL (1.0-4.3); LYMPH % 0.7 % (20.0-40.0); MEAN CELL VOLUME 92.1 fL (80.0-94.0); MEAN CORPUSCULAR HEMOGLOBIN 29.7 pg (27.0-31.0); MEAN CORPUSCULAR HGB CONC 32.2 g/dL (33.0-37.0); MEAN PLATELET VOLUME 7.9 fL (7.2-11.7); MONO # 0.6 K/uL (0.0-0.8); MONO % 3.4 % (0.0-10.0); NEUT # 17.5 K/uL (1.8-7.0); NEUT % 95.4 % (50.0-75.0); PLATELET COUNT 499 K/uL (130-400); RBC 3.77 Mil/uL (4.40-5.90); RED CELL DISTRIBUTION WIDTH 17.4 % (11.5-14.5); WHITE BLOOD COUNT 18.3 K/uL (4.8-10.8)
[2018-03-19 08:31] LABS: ALB/GLOB RATIO 1.1 (1.0-2.1); ALBUMIN 3.8 g/dL (3.5-5.0); ALT/SGPT 52 U/L (21-72); AST/SGOT 43 U/L (17-59); BLOOD UREA NITROGEN 29 mg/dL (9-20); CALCIUM 9.3 mg/dl (8.6-10.4); GFR NON-AFRICAN AMERICAN > 60
[2018-03-19 09:08] LABS: LYMPHOCYTE 1 % (20-40); MONOCYTE 2 % (0-10); NEUTROPHIL 97 % (50-75); TOTAL CELLS COUNTED 100
[2018-03-19 09:09] LABS: ANISOCYTOSIS SLIGHT; HYPOCHROMIC SLIGHT; PLATELET ESTIMATE SLIGHTLY INCREASED (NORMAL); POLYCHROMIC SLIGHT
--- NOTE | 2018-03-19 14:27 | CP.PCM.PN ---
Subjective - Date & Time of Evaluation Date of Evaluation: 03/19/18 Time of Evaluation: 14:25 - Subjective Subjective: PERIODS OF CONFUSION PULLING OUT O2 CAUSING DESATURATION P/E NO CHANGE D/W FAMILY REGARDING PLACEMENT Objective - Vital Signs/Intake and Output Vital Signs (last 24 hours): Temp Pulse Resp BP Pulse Ox 97.2 F L 120 H 20 108/73 97 03/19/18 07:00 03/19/18 07:00 03/19/18 08:40 03/19/18 07:00 03/19/18 07:00 Intake and Output: 03/19/18 03/19/18 11:59 23:59 Intake Total 220 Balance 220 - Medications Medications: Current Medications Albuterol/Ipratropium (Duoneb 3 Mg/0.5 Mg (3 Ml) Ud) 3 ml INH RQ6 [facility] Last Admin: 03/19/18 07:31 Dose: 3 ml Diltiazem HCl (Cardizem Cd) 240 mg PO DAILY [facility] Last Admin: 03/18/18 09:32 Dose: Not Given Enoxaparin Sodium (Lovenox) 30 mg SC DAILY [facility] Last Admin: 03/18/18 09:32 Dose: Not Given Fludrocortisone Acetate (Florinef) 0.1 mg PO DAILY [facility] Last Admin: 03/18/18 09:32 Dose: Not Given Micafungin Sodium 100 mg/ (Sodium Chloride) 100 mls @ 100 mls/hr IV Q24H [facility]; Protocol Last Admin: 03/19/18 01:36 Dose: 100 mls/hr Meropenem 500 mg/ Sodium (Chloride) 100 mls @ 100 mls/hr IVPB Q8H [facility]; Protocol Last Admin: 03/19/18 01:34 Dose: 100 mls/hr Methylprednisolone (Solu-Medrol) 40 mg IVP Q12 [facility] Last Admin: 03/18/18 22:00 Dose: 40 mg Pantoprazole Sodium (Protonix Ec Tab) 40 mg PO DAILY [facility] Last Admin: 03/18/18 09:32 Dose: Not Given - Labs Labs: 03/19/18 06:59 03/19/18 06:59
--- NOTE | 2018-03-19 17:24 | PCM.RRT ---
<Torri Gasca V - Last Filed: 03/19/18 20:26> TRAINING PROGRAM MANAGER Nurses Assessment - Vital Signs at end of TRAINING PROGRAM MANAGER Vital Signs at end of TRAINING PROGRAM MANAGER: Rapid Response End Vital Sign Blood Pressure 139/89 Pulse Rate 128 Attending/Attestation - Attestation I have personally seen and examined this patient.: Yes I have fully participated in the care of the patient.: Yes I have reviewed all pertinent clinical information, including history, physical exam and plan: Yes Notes (Text): Hospitalist note Rapid response initially called for bradycardia and desaturation per nurse became a CODE BLUE following respiratory arrest Patient had removed his high flow patient suddenly became unresponsive per clinical partner at bedside compressions started right away. Patient was intubated by intensive care. Patient administered 1 ampoule of epinephrine. Stigler achieved. Heart rate in the 130s blood pressure following ACLS blood pressure 139/89. Please note secretions apparent upon input in intubation Patient stabilized and brought into the ICU for further monitoring Labs and chest x-ray drawn during post cardiac arrest. Resident has a informed of primary attending Dr. Arias regards to event noted above. Further care per ICU <Jonh Linares - Last Filed: 03/19/18 22:35> TRAINING PROGRAM MANAGER Nurses Assessment - Situation Date: 03/19/18 Time TRAINING PROGRAM MANAGER was called: 16:45 TRAINING PROGRAM MANAGER Responder Arrival Time:: 16:46 TRAINING PROGRAM MANAGER Location:: Med/Surg Room Number: 670B TRAINING PROGRAM MANAGER Reason for Call: Not Responding to Urgent Treatment TRAINING PROGRAM MANAGER Called By: RN - IV IV Inserted during TRAINING PROGRAM MANAGER?: No New IV Insertion Tolerance: Fair - Respiratory TRAINING PROGRAM MANAGER Delivery Method: High-Flow @% Received Nebulizer Treatments: No Was the Patient Ventilated with Bag/Mask 100% O2?: Yes Secretions Suctioned?: Yes Was the Patient Intubated?: Yes Was the Patient Placed on a Ventilator?: No - Ventilator Settings FIO2 (% Oxygen): 40 - Diagnostic Test Ordered EKG: Yes Chest X-Ray: No CT Scan: No CPR started during TRAINING PROGRAM MANAGER?: Yes - Time TRAINING PROGRAM MANAGER Ended Time TRAINING PROGRAM MANAGER Ended: 16:51 - Vital Signs at end of TRAINING PROGRAM MANAGER Vital Signs at end of TRAINING PROGRAM MANAGER: Rapid Response End Vital Sign Blood Pressure 139/89 Pulse Rate 128 - Recommendations Notifications: Attending Physician I.Reason for TRAINING PROGRAM MANAGER - A) Acute Change in Patient: Subjective: House Doctor Note Rapid response initially called for patient at 4:45 PM by floor nurse due to respiratory distress, bradycardia which progressed to CODE BLUE following respiratory arrest. Per nurse, patient removed high flow O2 being used and suddenly became unresponsive and desaturating. Pulse was unattainable and EKG demonstrated PEA. Chest compressions were started immediately, patient was intubated by intensive care team. 1 unit of epinephrine was administered and chest compressions resumed, with ROSC achieved. Vitals upon ROSC: BP 139/89 HR 128 Labs and CXR obtained post-cardiac arrest. Patient was stabilized and transferred to intensive care unit for further monitoring. Patient's primary attending (Dr. Mancera) informed of events. - Respiratory Oxygen Delivery Method: High-Flow @% - Constitutional Appears: In Acute Distress - Respiratory Exam Respiratory Exam: Respiratory Distress - Neurological Exam Neurological Exam: absent: Alert, Awake
--- NOTE | 2018-03-19 17:41 | CP.CCUPN ---
<Merry Farias - Last Filed: 03/19/18 18:39> CCU Subjective - Physician Review Subjective (Free Text): Critical Care Progress Note for Dr. Schwartz's service Patient had CASSANDRA ARCHITECT called for hypoxic respiratory failure. Patient was intubated on medical floors and transferred to ICU. After transfer patient became hypotensive requiring subclavian TLC. Patient was recently evaluated by ICU team. 03/19/18 18:49 CCU Objective - Vital Signs / Intake & Output Vital Signs (Last 4 hours): Vital Signs Temp Pulse Resp BP 03/19/18 14:50 98.3 F 123 H 14 115/73 Intake and Output (Last 8hrs): Intake & Output 03/19/18 03/19/18 03/19/18 06:59 14:59 22:59 Intake Total 220 350 Output Total 100 Balance 120 350 Intake: Intake, IV Amount 220 100 Right Forearm 220 100 Oral 250 Output: Urine 100 Urine, Voided 100 Other: # Voids Urine, Voided 1 - Physical Exam Head: Positive for: Atraumatic, Normocephalic Conjunctiva: Positive for: Normal Mouth: Positive for: Dry, Other (ORAL ETT) Neck: Negative for: JVD Respiratory/Chest: Positive for: Clear to Auscultation. Negative for: Respiratory Distress, Accessory Muscle Use Cardiovascular: Positive for: Normal S1, S2, Tachycardic. Negative for: Murmurs, Irregular Rhythm, Bradycardic Abdomen: Positive for: Normal Bowel Sounds. Negative for: Tenderness, Distention, Peritoneal Signs Genitourinary Male: Positive for: Other (Simmons in place) Upper Extremity: Positive for: Normal Inspection. Negative for: Cyanosis, Edema Lower Extremity: Positive for: Normal Inspection. Negative for: Edema Skin: Positive for: Dry, Normal Color. Negative for: Erythematous - Medications Active Medications: Active Medications Generic Name Dose Route Start Last Admin Trade Name Freq PRN Reason Stop Dose Admin Albuterol/Ipratropium 3 ml 03/18/18 21:15 03/19/18 13:32 Duoneb 3 Mg/0.5 Mg (3 Ml) Ud INH 3 ml RQ6 [facility] Administration Diltiazem HCl 240 mg 03/15/18 10:00 03/18/18 09:32 Cardizem Cd PO Not Given DAILY [facility] Enoxaparin Sodium 30 mg 03/07/18 11:00 03/18/18 09:32 Lovenox SC Not Given DAILY [facility] Fludrocortisone Acetate 0.1 mg 03/10/18 11:15 03/18/18 09:32 Florinef PO Not Given DAILY [facility] Micafungin Sodium 100 mg/ 100 mls @ 100 mls/hr 03/04/18 01:00 03/19/18 01:36 Sodium Chloride IV 100 mls/hr Q24H [facility] Administration Protocol Meropenem 500 mg/ Sodium 100 mls @ 100 mls/hr 03/04/18 01:15 03/19/18 01:34 Chloride IVPB 100 mls/hr Q8H [facility] Administration Protocol Methylprednisolone 40 mg 03/17/18 22:00 03/18/18 22:00 Solu-Medrol IVP 40 mg Q12 [facility] Administration Pantoprazole Sodium 40 mg 03/13/18 10:00 03/18/18 09:32 Protonix Ec Tab PO Not Given DAILY [facility] - Patient Studies Lab Studies: Lab Studies 03/19/18 03/19/18 03/18/18 Range/Units 06:59 06:59 21:51 WBC 18.3 H D (4.8-10.8) K/uL RBC 3.77 L (4.40-5.90) Mil/uL Hgb 11.2 L (12.0-18.0) g/dL Hct 34.8 L (35.0-51.0) % MCV 92.1 (80.0-94.0) fL MCH 29.7 (27.0-31.0) pg MCHC 32.2 L (33.0-37.0) g/dL RDW 17.4 H (11.5-14.5) % Plt Count 499 H (130-400) K/uL MPV 7.9 (7.2-11.7) fL Neut % (Auto) 95.4 H (50.0-75.0) % Lymph % (Auto) 0.7 L (20.0-40.0) % Mccracken % (Auto) 3.4 (0.0-10.0) % Eos % (Auto) 0.0 (0.0-4.0) % Baso % (Auto) 0.5 (0.0-2.0) % Neut # (Auto) 17.5 H (1.8-7.0) K/uL Lymph # (Auto) 0.1 L (1.0-4.3) K/uL Mccracken # (Auto) 0.6 (0.0-0.8) K/uL Eos # (Auto) 0.0 (0.0-0.7) K/uL Baso # (Auto) 0.1 (0.0-0.2) K/uL Neutrophils % (Manual) 97 H (50-75) % Lymphocytes % (Manual) 1 L (20-40) % Monocytes % (Manual) 2 (0-10) % Platelet Estimate Slightly increased H (NORMAL) Polychromasia Slight Hypochromasia (manual) Slight Anisocytosis (manual) Slight Sodium 140 (132-148) mmol/L Potassium 3.7 (3.6-5.2) mmol/L Chloride 94 L (98-107) mmol/L Carbon Dioxide 42 H* (22-30) mmol/L Anion Gap 8 L (10-20) BUN 29 H (9-20) mg/dL Creatinine 0.3 L (0.8-1.5) mg/dL Est GFR ( Amer) > 60 Est GFR (Non-Af Amer) > 60 POC Glucose (mg/dL) 200 H (65-110) mg/dL Random Glucose 156 H (75-110) mg/dL Calcium 9.3 (8.6-10.4) mg/dl Phosphorus 2.9 (2.5-4.5) mg/dL Magnesium 1.9 (1.6-2.3) mg/dL Total Bilirubin 1.3 (0.2-1.3) mg/dL AST 43 (17-59) U/L ALT 52 (21-72) U/L Alkaline Phosphatase 141 H (38-126) U/L Total Protein 7.3 (6.3-8.3) g/dL Albumin 3.8 (3.5-5.0) g/dL Globulin 3.5 (2.2-3.9) gm/dL Albumin/Globulin Ratio 1.1 (1.0-2.1) Laboratory Results - last 24 hr 03/18/18 03/19/18 03/19/18 21:51 06:59 06:59 WBC 18.3 H D RBC 3.77 L Hgb 11.2 L Hct 34.8 L MCV 92.1 MCH 29.7 MCHC 32.2 L RDW 17.4 H Plt Count 499 H MPV 7.9 Neut % (Auto) 95.4 H Lymph % (Auto) 0.7 L Mccracken % (Auto) 3.4 Eos % (Auto) 0.0 Baso % (Auto) 0.5 Neut # (Auto) 17.5 H Lymph # (Auto) 0.1 L Mccracken # (Auto) 0.6 Eos # (Auto) 0.0 Baso # (Auto) 0.1 Neutrophils % (Manual) 97 H Lymphocytes % (Manual) 1 L Monocytes % (Manual) 2 Platelet Estimate Slightly increased H Polychromasia Slight Hypochromasia (manual) Slight Anisocytosis (manual) Slight Sodium 140 Potassium 3.7 Chloride 94 L Carbon Dioxide 42 H* Anion Gap 8 L BUN 29 H Creatinine 0.3 L Est GFR ( Amer) > 60 Est GFR (Non-Af Amer) > 60 POC Glucose (mg/dL) 200 H Random Glucose 156 H Calcium 9.3 Phosphorus 2.9 Magnesium 1.9 Total Bilirubin 1.3 AST 43 ALT 52 Alkaline Phosphatase 141 H Total Protein 7.3 Albumin 3.8 Globulin 3.5 Albumin/Globulin Ratio 1.1 Fingerstick Blood Sugar Results: 171 Review of Systems - Review of Systems Systems not reviewed;Unavailable: Intubated Critical Care Progress Note - Vent Settings TIDAL VOLUME:: 450 RESP RATE:: 16 FIO2:: 100 PEEP:: 5 - Nutrition Nutrition: Nutrition Category Date Time Status Pureed [Dysphagia/Modified Consistency Diet] [DIET] Diets 03/12/18 Breakfast Active Assessment/Plan - Assessment and Plan (Free Text) Assessment: Patient is a 72 yo male w/PMH of Alzheimer, COPD, CHF, and arthritis admitted for hypoxic resp failure. Patient was intubated prior to transfer to ICU on 03-19 with subclavian TLC placed on 03/19 for hypotension. Neuro not awake, alert, oriented; no sedation; AMS likely 2/2 hypoxia Pulm Intubated on Ventilator Duoneb Solumedrol CV Levophed Fludrocortisone Cardizem- will be held in setting of low blood pressure GI no active issues Protonix Renal 1 x bolus of NS (blood pressure did not respond) ID + cx for yeast and e coli on 03/02 + cx for yeast on 03/12 Micafungin/Meropenem DVT ppx: Lovenox GI ppx: Protonix PGY-1 [facility] d/w Dr. Schwratz <Nino Schwartz S - Last Filed: 03/19/18 19:05> CCU Subjective - Physician Review Critical Care Time Spent (in minutes): 55 CCU Objective - Vital Signs / Intake & Output Vital Signs (Last 4 hours): Vital Signs BP 03/19/18 18:14 51/28 L Intake and Output (Last 8hrs): Intake & Output 03/19/18 03/19/18 03/19/18 06:59 14:59 22:59 Intake Total 220 384 Output Total 100 Balance 120 384 Intake: IV 34 Intake, IV Amount 220 100 Right Forearm 220 100 Oral 250 Output: Urine 100 Urine, Voided 100 Other: # Voids Urine, Voided 1 - Medications Active Medications: Active Medications Generic Name Dose Route Start Last Admin Trade Name Freq PRN Reason Stop Dose Admin Albuterol/Ipratropium 3 ml 03/18/18 21:15 03/19/18 13:32 Duoneb 3 Mg/0.5 Mg (3 Ml) Ud INH 3 ml RQ6 [facility] Administration Diltiazem HCl 240 mg 03/15/18 10:00 03/18/18 09:32 Cardizem Cd PO Not Given DAILY [facility] Enoxaparin Sodium 30 mg 03/07/18 11:00 03/18/18 09:32 Lovenox SC Not Given DAILY [facility] Fludrocortisone Acetate 0.1 mg 03/10/18 11:15 03/18/18 09:32 Florinef PO Not Given DAILY [facility] Micafungin Sodium 100 mg/ 100 mls @ 100 mls/hr 03/04/18 01:00 03/19/18 01:36 Sodium Chloride IV 100 mls/hr Q24H [facility] Administration Protocol Meropenem 500 mg/ Sodium 100 mls @ 100 mls/hr 03/04/18 01:15 03/19/18 18:47 Chloride IVPB 100 mls/hr Q8H [facility] Administration Protocol Norepinephrine Bitartrate 4 mg 254 mls @ 15.24 mls/hr 03/19/18 17:44 03/19/18 18:55 / Sodium Chloride IV 10 mcg/min .[id number] PRN 38.1 mls/hr TITRATE PER MD ORDER Titration Protocol 4 MCG/MIN Sodium Chloride 1,000 mls @ 100 mls/hr 03/19/18 19:00 Sodium Chloride 0.9% IV .Q10H [facility] Sodium Chloride 500 mls @ 1,000 mls/hr 03/19/18 18:54 Sodium Chloride 0.9% IV 03/19/18 19:23 .Q30M ONE Methylprednisolone 40 mg 03/17/18 22:00 03/18/18 22:00 Solu-Medrol IVP 40 mg Q12 [facility] Administration Pantoprazole Sodium 40 mg 03/13/18 10:00 03/18/18 09:32 Protonix Ec Tab PO Not Given DAILY [facility] - Patient Studies Lab Studies: Microbiology Studies 03/18/18 20:36 MRSA Culture - Final Naris MRSA NOT DETECTED Lab Studies 03/19/18 03/19/18 03/19/18 Range/Units 18:31 18:00 18:00 WBC 26.9 H (4.8-10.8) K/uL RBC 3.47 L (4.40-5.90) Mil/uL Hgb 10.2 L (12.0-18.0) g/dL Hct 32.7 L (35.0-51.0) % MCV 94.2 H D (80.0-94.0) fL MCH 29.4 (27.0-31.0) pg MCHC 31.2 L (33.0-37.0) g/dL RDW 17.2 H (11.5-14.5) % Plt Count 425 H (130-400) K/uL MPV 8.0 (7.2-11.7) fL Neut % (Auto) 97.5 H (50.0-75.0) % Lymph % (Auto) 0.4 L (20.0-40.0) % Mccracken % (Auto) 1.5 (0.0-10.0) % Eos % (Auto) 0.0 (0.0-4.0) % Baso % (Auto) 0.6 (0.0-2.0) % Neut # (Auto) 26.2 H (1.8-7.0) K/uL Lymph # (Auto) 0.1 L (1.0-4.3) K/uL Mccracken # (Auto) 0.4 (0.0-0.8) K/uL Eos # (Auto) 0.0 (0.0-0.7) K/uL Baso # (Auto) 0.2 (0.0-0.2) K/uL Neutrophils % (Manual) (50-75) % Lymphocytes % (Manual) (20-40) % Monocytes % (Manual) (0-10) % Platelet Estimate (NORMAL) Polychromasia Hypochromasia (manual) Anisocytosis (manual) Puncture Site Rb pCO2 61 H (35-45) mm/Hg pO2 357 H (80-100) mm/Hg HCO3 33.2 H (21-28) mmol/L ABG pH 7.40 (7.35-7.45) ABG Total CO2 39.7 H (22-28) mmol/L ABG O2 Saturation 99.9 H (95-98) % ABG Base Excess 10.5 H (-2.0-3.0) mmol/L [place]reket Test Na ABG Potassium 3.5 L (3.6-5.2) mmol/L A-a O2 Difference 280.0 mm/Hg Respiratory Index 0.8 Glucose 258 H (75-110) mg/dl Lactate 4.0 H* (0.7-2.1) mmol/L Vent Mode Prvc Mechanical Rate 16 FiO2 100.0 % Tidal Volume 450 PEEP 5 Crit Value Called To Dr. schwartz Crit Value Called By Waqas loomis Crit Value Read Back Y Blood Gas Notified Time 1835 Sodium 147.0 142 (132-148) mmol/L Potassium 4.1 (3.6-5.2) mmol/L Chloride 109.0 H 97 L (98-107) mmol/L Carbon Dioxide 40 H* (22-30) mmol/L Anion Gap 9 L (10-20) BUN 34 H (9-20) mg/dL Creatinine 0.7 L (0.8-1.5) mg/dL Est GFR ( Amer) > 60 Est GFR (Non-Af Amer) > 60 POC Glucose (mg/dL) (65-110) mg/dL Random Glucose 293 H D (75-110) mg/dL Calcium 8.4 L (8.6-10.4) mg/dl Phosphorus 5.8 H (2.5-4.5) mg/dL Magnesium 2.1 (1.6-2.3) mg/dL Total Bilirubin 1.1 (0.2-1.3) mg/dL AST 1086 H (17-59) U/L ALT 771 H D (21-72) U/L Alkaline Phosphatase 129 H (38-126) U/L Total Protein 6.1 L (6.3-8.3) g/dL Albumin 3.2 L (3.5-5.0) g/dL Globulin 2.9 (2.2-3.9) gm/dL Albumin/Globulin Ratio 1.1 (1.0-2.1) Arterial Blood Potassium 3.5 L (3.6-5.2) mmol/L 03/19/18 03/19/18 03/18/18 Range/Units 06:59 06:59 21:51 WBC 18.3 H D (4.8-10.8) K/uL RBC 3.77 L (4.40-5.90) Mil/uL Hgb 11.2 L (12.0-18.0) g/dL Hct 34.8 L (35.0-51.0) % MCV 92.1 (80.0-94.0) fL MCH 29.7 (27.0-31.0) pg MCHC 32.2 L (33.0-37.0) g/dL RDW 17.4 H (11.5-14.5) % Plt Count 499 H (130-400) K/uL MPV 7.9 (7.2-11.7) fL Neut % (Auto) 95.4 H (50.0-75.0) % Lymph % (Auto) 0.7 L (20.0-40.0) % Mccracken % (Auto) 3.4 (0.0-10.0) % Eos % (Auto) 0.0 (0.0-4.0) % Baso % (Auto) 0.5 (0.0-2.0) % Neut # (Auto) 17.5 H (1.8-7.0) K/uL Lymph # (Auto) 0.1 L (1.0-4.3) K/uL Mccracken # (Auto) 0.6 (0.0-0.8) K/uL Eos # (Auto) 0.0 (0.0-0.7) K/uL Baso # (Auto) 0.1 (0.0-0.2) K/uL Neutrophils % (Manual) 97 H (50-75) % Lymphocytes % (Manual) 1 L (20-40) % Monocytes % (Manual) 2 (0-10) % Platelet Estimate Slightly increased H (NORMAL) Polychromasia Slight Hypochromasia (manual) Slight Anisocytosis (manual) Slight Puncture Site pCO2 (35-45) mm/Hg pO2 (80-100) mm/Hg HCO3 (21-28) mmol/L ABG pH (7.35-7.45) ABG Total CO2 (22-28) mmol/L ABG O2 Saturation (95-98) % ABG Base Excess (-2.0-3.0) mmol/L [place]reket Test ABG Potassium (3.6-5.2) mmol/L A-a O2 Difference mm/Hg Respiratory Index Glucose (75-110) mg/dl Lactate (0.7-2.1) mmol/L Vent Mode Mechanical Rate FiO2 % Tidal Volume PEEP Crit Value Called To Crit Value Called By Crit Value Read Back Blood Gas Notified Time Sodium 140 (132-148) mmol/L Potassium 3.7 (3.6-5.2) mmol/L Chloride 94 L (98-107) mmol/L Carbon Dioxide 42 H* (22-30) mmol/L Anion Gap 8 L (10-20) BUN 29 H (9-20) mg/dL Creatinine 0.3 L (0.8-1.5) mg/dL Est GFR ( Amer) > 60 Est GFR (Non-Af Amer) > 60 POC Glucose (mg/dL) 200 H (65-110) mg/dL Random Glucose 156 H (75-110) mg/dL Calcium 9.3 (8.6-10.4) mg/dl Phosphorus 2.9 (2.5-4.5) mg/dL Magnesium 1.9 (1.6-2.3) mg/dL Total Bilirubin 1.3 (0.2-1.3) mg/dL AST 43 (17-59) U/L ALT 52 (21-72) U/L Alkaline Phosphatase 141 H (38-126) U/L Total Protein 7.3 (6.3-8.3) g/dL Albumin 3.8 (3.5-5.0) g/dL Globulin 3.5 (2.2-3.9) gm/dL Albumin/Globulin Ratio 1.1 (1.0-2.1) Arterial Blood Potassium (3.6-5.2) mmol/L Laboratory Results - last 24 hr 03/18/18 03/19/18 03/19/18 21:51 06:59 06:59 WBC 18.3 H D RBC 3.77 L Hgb 11.2 L Hct 34.8 L MCV 92.1 MCH 29.7 MCHC 32.2 L RDW 17.4 H Plt Count 499 H MPV 7.9 Neut % (Auto) 95.4 H Lymph % (Auto) 0.7 L Mccracken % (Auto) 3.4 Eos % (Auto) 0.0 Baso % (Auto) 0.5 Neut # (Auto) 17.5 H Lymph # (Auto) 0.1 L Mccracken # (Auto) 0.6 Eos # (Auto) 0.0 Baso # (Auto) 0.1 Neutrophils % (Manual) 97 H Lymphocytes % (Manual) 1 L Monocytes % (Manual) 2 Platelet Estimate Slightly increased H Polychromasia Slight Hypochromasia (manual) Slight Anisocytosis (manual) Slight Puncture Site pCO2 pO2 HCO3 ABG pH ABG Total CO2 ABG O2 Saturation ABG Base Excess Bereket Test ABG Potassium A-a O2 Difference Respiratory Index Glucose Lactate Vent Mode Mechanical Rate FiO2 Tidal Volume PEEP Crit Value Called To Crit Value Called By Crit Value Read Back Blood Gas Notified Time Sodium 140 Potassium 3.7 Chloride 94 L Carbon Dioxide 42 H* Anion Gap 8 L BUN 29 H Creatinine 0.3 L Est GFR ( Amer) > 60 Est GFR (Non-Af Amer) > 60 POC Glucose (mg/dL) 200 H Random Glucose 156 H Calcium 9.3 Phosphorus 2.9 Magnesium 1.9 Total Bilirubin 1.3 AST 43 ALT 52 Alkaline Phosphatase 141 H Total Protein 7.3 Albumin 3.8 Globulin 3.5 Albumin/Globulin Ratio 1.1 Arterial Blood Potassium 03/19/18 03/19/18 03/19/18 18:00 18:00 18:31 WBC 26.9 H RBC 3.47 L Hgb 10.2 L Hct 32.7 L MCV 94.2 H D MCH 29.4 MCHC 31.2 L RDW 17.2 H Plt Count 425 H MPV 8.0 Neut % (Auto) 97.5 H Lymph % (Auto) 0.4 L Mccracken % (Auto) 1.5 Eos % (Auto) 0.0 Baso % (Auto) 0.6 Neut # (Auto) 26.2 H Lymph # (Auto) 0.1 L Mccracken # (Auto) 0.4 Eos # (Auto) 0.0 Baso # (Auto) 0.2 Neutrophils % (Manual) Lymphocytes % (Manual) Monocytes % (Manual) Platelet Estimate Polychromasia Hypochromasia (manual) Anisocytosis (manual) Puncture Site Rb pCO2 61 H pO2 357 H HCO3 33.2 H ABG pH 7.40 ABG Total CO2 39.7 H ABG O2 Saturation 99.9 H ABG Base Excess 10.5 H [place] Test Na ABG Potassium 3.5 L A-a O2 Difference 280.0 Respiratory Index 0.8 Glucose 258 H Lactate 4.0 H* Vent Mode Prvc Mechanical Rate 16 FiO2 100.0 Tidal Volume 450 PEEP 5 Crit Value Called To Dr. schwartz Crit Value Called By Waqas looims Crit Value Read Back Y Blood Gas Notified Time 183 Sodium 142 147.0 Potassium 4.1 Chloride 97 L 109.0 H Carbon Dioxide 40 H* Anion Gap 9 L BUN 34 H Creatinine 0.7 L Est GFR ( Amer) > 60 Est GFR (Non-Af Amer) > 60 POC Glucose (mg/dL) Random Glucose 293 H D Calcium 8.4 L Phosphorus 5.8 H Magnesium 2.1 Total Bilirubin 1.1 AST 1086 H ALT 771 H D Alkaline Phosphatase 129 H Total Protein 6.1 L Albumin 3.2 L Globulin 2.9 Albumin/Globulin Ratio 1.1 Arterial Blood Potassium 3.5 L Critical Care Progress Note - Nutrition Nutrition: Nutrition Category Date Time Status Pureed [Dysphagia/Modified Consistency Diet] [DIET] Diets 03/12/18 Breakfast Active Attending/Attestation - Attestation I have personally seen and examined this patient.: Yes I have fully participated in the care of the patient.: Yes I have reviewed all pertinent clinical information: Yes Notes (Text): 03/19/18 18:57 Patient is a 72 yo male w/PMH of Alzheimer, COPD, CHF, and arthritis admitted for hypoxic resp failure. Patient was intubated prior to transfer to ICU on 03-19 with subclavian TLC placed on 03/19 for hypotension. continue IV antibiotics The patient started on Levophed for hypotension iV fluids patient is hypotensive and started on Levophed/fluid resuscitation and is not a candidate for therapeutic hypothermia at this point
[2018-03-19] MEDS ORDERED: Sodium Chloride 0.9% 1,000 ML IV ONE (17:45)
[2018-03-19 18:06] LABS: BASO # 0.2 K/uL (0.0-0.2); BASO % 0.6 % (0.0-2.0); HEMOGLOBIN 10.2 g/dL (12.0-18.0); LYMPH # 0.1 K/uL (1.0-4.3); LYMPH % 0.4 % (20.0-40.0); MEAN CORPUSCULAR HEMOGLOBIN 29.4 pg (27.0-31.0); MEAN CORPUSCULAR HGB CONC 31.2 g/dL (33.0-37.0); MONO # 0.4 K/uL (0.0-0.8); MONO % 1.5 % (0.0-10.0); NEUT # 26.2 K/uL (1.8-7.0); NEUT % 97.5 % (50.0-75.0); PLATELET COUNT 425 K/uL (130-400); RBC 3.47 Mil/uL (4.40-5.90); RED CELL DISTRIBUTION WIDTH 17.2 % (11.5-14.5); WHITE BLOOD COUNT 26.9 K/uL (4.8-10.8)
--- NOTE | 2018-03-19 18:07 | CP.PCM.PN ---
Subjective - Date & Time of Evaluation Date of Evaluation: 03/19/18 Time of Evaluation: 18:07 - Subjective Subjective: PT INTUBATED. RESPIRATORY DISTRESS ROS: NA Objective - Vital Signs/Intake and Output Vital Signs (last 24 hours): Temp Pulse Resp BP Pulse Ox 98.3 F 123 H 14 115/73 97 03/19/18 14:50 03/19/18 14:50 03/19/18 14:50 03/19/18 14:50 03/19/18 07:00 Intake and Output: 03/19/18 03/19/18 06:59 18:59 Intake Total 220 350 Output Total 100 Balance 120 350 - Medications Medications: Current Medications Albuterol/Ipratropium (Duoneb 3 Mg/0.5 Mg (3 Ml) Ud) 3 ml INH RQ6 [facility] Last Admin: 03/19/18 13:32 Dose: 3 ml Diltiazem HCl (Cardizem Cd) 240 mg PO DAILY [facility] Last Admin: 03/18/18 09:32 Dose: Not Given Enoxaparin Sodium (Lovenox) 30 mg SC DAILY [facility] Last Admin: 03/18/18 09:32 Dose: Not Given Fludrocortisone Acetate (Florinef) 0.1 mg PO DAILY [facility] Last Admin: 03/18/18 09:32 Dose: Not Given Micafungin Sodium 100 mg/ (Sodium Chloride) 100 mls @ 100 mls/hr IV Q24H [facility]; Protocol Last Admin: 03/19/18 01:36 Dose: 100 mls/hr Meropenem 500 mg/ Sodium (Chloride) 100 mls @ 100 mls/hr IVPB Q8H [facility]; Protocol Last Admin: 03/19/18 01:34 Dose: 100 mls/hr Norepinephrine Bitartrate 4 mg (/ Sodium Chloride) 254 mls @ 15.24 mls/hr IV .[id number] PRN; Protocol PRN Reason: TITRATE PER MD ORDER Sodium Chloride (Sodium Chloride 0.9%) 1,000 mls @ 1,000 mls/hr IV .Q1H ONE Stop: 03/19/18 18:44 Methylprednisolone (Solu-Medrol) 40 mg IVP Q12 [facility] Last Admin: 03/18/18 22:00 Dose: 40 mg Pantoprazole Sodium (Protonix Ec Tab) 40 mg PO DAILY [facility] Last Admin: 03/18/18 09:32 Dose: Not Given - Labs Labs: 03/19/18 06:59 03/19/18 06:59 - Constitutional Appears: Cachectic, Chronically Ill - Head Exam Head Exam: NORMAL INSPECTION Additional comments: INTUBATED - Eye Exam Eye Exam: PERRL - ENT Exam ENT Exam: Mucous Membranes Dry - Neck Exam Neck Exam: Normal Inspection - Respiratory Exam Respiratory Exam: Decreased Breath Sounds, Rhonchi, Wheezes - Cardiovascular Exam Cardiovascular Exam: Tachycardia, +S1, +S2 - GI/Abdominal Exam GI & Abdominal Exam: Soft, Normal Bowel Sounds - Extremities Exam Extremities Exam: absent: Calf Tenderness, Pedal Edema - Neurological Exam Neurological Exam: Altered (SEDATED) - Skin Skin Exam: Normal Color, Warm Assessment and Plan (1) Sepsis associated hypotension Status: Acute (2) Respiratory failure requiring intubation Status: Acute (3) Altered mental status Status: Acute (4) Pneumonia Status: Acute (5) Abdominal pain Status: Acute (6) Cholelithiases Status: Acute - Assessment and Plan (Free Text) Plan: CONTINUE IV MERREM 500MG IVPB Q8HRLY 03/04/18 CONTINUE IV MYCAFUNGIN 100MG IV PB Q 24 HRLY 03/04/18. VANCOMYCIN 1GM IVPB X1 DOSE STAT AFTER BLOOD CULTURES 03/20/18 TRACHEAL ASPIRATE FOR CULTURE.- F/U CULTURES TO ADJUST ABX. F/U LFTS IN AM PER PTS FAMILY , PT FULL CODE. PULMONARY TOILET. DISCUSSED WITH STAFF OF ICU PRESENT CONDITION AND LABS AND R/O MEDS.
[2018-03-19 18:09] LABS: MEAN CELL VOLUME 94.2 fL (80.0-94.0)
[2018-03-19 18:29] LABS: ALB/GLOB RATIO 1.1 (1.0-2.1); ALBUMIN 3.2 g/dL (3.5-5.0); ALT/SGPT 771 U/L (21-72); AST/SGOT 1086 U/L (17-59); BLOOD UREA NITROGEN 34 mg/dL (9-20); CALCIUM 8.4 mg/dl (8.6-10.4); GFR NON-AFRICAN AMERICAN > 60
[2018-03-19 18:34] LABS: ARTERIAL BLOOD GAS HCO3 33.2 mmol/L (21-28); ARTERIAL BLOOD GAS O2 SAT 99.9 % (95-98); ARTERIAL BLOOD GAS PCO2 61 mm/Hg (35-45); ARTERIAL BLOOD GAS PO2 357 mm/Hg (80-100); ARTERIAL BLOOD GAS TCO2 39.7 mmol/L (22-28)
[2018-03-19] MEDS ORDERED: Sodium Chloride 0.9% 500 ML IV ONE (18:54)
--- NOTE | 2018-03-19 19:08 | RAD ---
HISTORY: s/p TLC COMPARISON: Chest x-ray performed 03/19/18 at 1701 hr TECHNIQUE: Chest, one view. FINDINGS: Endotracheal tube terminates approximately 3.3 cm above the mandie. Right-sided central venous catheter terminates in the expected location of the proximal right atrium. Nasogastric tube extends expected location of the stomach. At least 2 external defibrillator pads evident. Numerous external wires and leads are noted which obscure evaluation of the underlying parenchyma. LUNGS: Hypoinflation. Interstitial thickening may reflect infection or edema, left greater than right. Biapical pleural thickening extends further laterally on the right. Small bilateral pleural effusions. No definite pneumothorax. CARDIOVASCULAR: Cardiomegaly. OSSEOUS STRUCTURES: Osseous demineralization. Degenerative changes. Partially imaged plate and screw fixation bilateral proximal humeri. VISUALIZED UPPER ABDOMEN: Unremarkable. OTHER FINDINGS: None. IMPRESSION: Support lines and tubes as above. Hypoinflation. Interstitial thickening may reflect infection or edema, left greater than right. Biapical pleural thickening extends further laterally on the right. Small bilateral pleural effusions. Cardiomegaly.
[2018-03-19] MEDS: Sodium Chloride 0.9% 1,000 ML IV SCH (19:29)
--- NOTE | 2018-03-19 19:45 | CP.PCM.PN ---
Subjective - Date & Time of Evaluation Date of Evaluation: 03/19/18 Time of Evaluation: 19:42 - Subjective Subjective: PT INTUBATED. ROS; UNOBTAINABLE. Objective - Vital Signs/Intake and Output Vital Signs (last 24 hours): Temp Pulse Resp BP Pulse Ox 98.3 F 114 H 19 87/60 L 100 03/19/18 14:50 03/19/18 19:01 03/19/18 19:01 03/19/18 19:01 03/19/18 19:01 Intake and Output: 03/19/18 03/20/18 18:59 06:59 Intake Total 384 Balance 384 - Medications Medications: Current Medications Albuterol/Ipratropium (Duoneb 3 Mg/0.5 Mg (3 Ml) Ud) 3 ml INH RQ6 [facility] Last Admin: 03/19/18 13:32 Dose: 3 ml Diltiazem HCl (Cardizem Cd) 240 mg PO DAILY [facility] Last Admin: 03/18/18 09:32 Dose: Not Given Enoxaparin Sodium (Lovenox) 30 mg SC DAILY [facility] Last Admin: 03/18/18 09:32 Dose: Not Given Fludrocortisone Acetate (Florinef) 0.1 mg PO DAILY [facility] Last Admin: 03/18/18 09:32 Dose: Not Given Micafungin Sodium 100 mg/ (Sodium Chloride) 100 mls @ 100 mls/hr IV Q24H [facility]; Protocol Last Admin: 03/19/18 01:36 Dose: 100 mls/hr Meropenem 500 mg/ Sodium (Chloride) 100 mls @ 100 mls/hr IVPB Q8H [facility]; Protocol Last Admin: 03/19/18 18:47 Dose: 100 mls/hr Norepinephrine Bitartrate 4 mg (/ Sodium Chloride) 254 mls @ 15.24 mls/hr IV .[id number] PRN; Protocol PRN Reason: TITRATE PER MD ORDER Last Titration: 03/19/18 18:55 Dose: 10 mcg/min, 38.1 mls/hr Sodium Chloride (Sodium Chloride 0.9%) 1,000 mls @ 100 mls/hr IV .Q10H [facility] Last Admin: 03/19/18 19:29 Dose: 100 mls/hr Methylprednisolone (Solu-Medrol) 40 mg IVP Q12 [facility] Last Admin: 03/18/18 22:00 Dose: 40 mg Pantoprazole Sodium (Protonix Ec Tab) 40 mg PO DAILY [facility] Last Admin: 03/18/18 09:32 Dose: Not Given - Labs Labs: 03/19/18 18:00 03/19/18 18:00 - Constitutional Appears: Cachectic, Chronically Ill - Head Exam Head Exam: ATRAUMATIC, NORMOCEPHALIC - Eye Exam Eye Exam: Normal appearance - ENT Exam Additional comments: ORAL ETT - Neck Exam Neck Exam: Normal Inspection - Respiratory Exam Respiratory Exam: Rhonchi - Cardiovascular Exam Cardiovascular Exam: RRR, +S1, +S2 - GI/Abdominal Exam GI & Abdominal Exam: Soft - Rectal Exam Rectal Exam: Deferred - Extremities Exam Extremities Exam: absent: Pedal Edema - Neurological Exam Additional comments: OPENS EYES. - Skin Skin Exam: absent: Rash Assessment and Plan (1) Septic shock Status: Acute (2) Altered mental status Status: Acute (3) Pneumonia Status: Acute (4) Respiratory failure requiring intubation Status: Acute (5) COPD exacerbation Status: Acute (6) Cachexia Status: Acute (7) Cholelithiases Status: Acute (8) Alzheimer disease Status: Chronic - Assessment and Plan (Free Text) Assessment: RESP FAILURE REQUIRING RE-INTUBATION, S/P ACLS. ON IV LEVO AT 10UG NOW. ABG NOTED, TAPER FIO2. CONT PULM TOILET., NEB BD., CXR REVIEWED. CONT AB PER ID. PROG GRIM., DISCUSSED WITH STAFF AT LENGTH AND FAMILY AT BEDSIDE. TIME SPENT 1HR.
[2018-03-19 19:57] LABS: SQUAMOUS EPITHIAL < 1 /hpf (0-5); URINE BACTERIA RARE (<OCC); URINE BILIRUBIN NEGATIVE (NEGATIVE); URINE BLOOD 1+ (NEGATIVE); URINE CLARITY Hazy (Clear); URINE COLOR Yellow (YELLOW); URINE GLUCOSE (UA) 1+ mg/dL (Normal); URINE LEUKOCYTE ESTERASE NEG Leu/uL (Negative); URINE PROTEIN 2+ mg/dL (NEGATIVE); URINE UROBILINOGEN NORMAL mg/dL (0.2-1.0)
--- NOTE | 2018-03-19 20:02 | PCM.SEPTIC ---
Sepsis Progress Note - Reassessment Type Date of Evaluation: 03/19/18 Time of Evaluation: 19:45 Reassessment Type: Non-invasive reassessment - Non Invasive Reassessment Were the most recent vital sign reviewed: Yes Vital Sign (Latest): Temp Pulse Resp BP Pulse Ox 98.3 F 114 H 19 87/60 L 100 03/19/18 14:50 03/19/18 19:01 03/19/18 19:01 03/19/18 19:01 03/19/18 19:01 Cardiovascular: Yes: Tachycardia Respiratory: Yes: Respiratory Distress Capillary Refill: Normal (Less than 2 sec) Skin: Warm
[2018-03-19 20:03] LABS: BANDS 2 % (0-2); MONOCYTE 1 % (0-10)
[2018-03-19 20:04] LABS: LYMPHOCYTE 1 % (20-40); NEUTROPHIL 96 % (50-75); PLATELET ESTIMATE INCREASED (NORMAL); TOTAL CELLS COUNTED 100
[2018-03-19 21:44] LABS: CK-MB 3.31 ng/mL (0.0-3.38); TROPONIN I 0.316 ng/mL (0.00-0.120)
[2018-03-19] MEDS: MethylPREDNISolone 40 mg Vial IVP SCH (22:38)
[2018-03-20] MEDS: Micafungin 100 MG in Sodium Chloride 0.9% 100 ML IV SCH (01:00)
[2018-03-20] MEDS: Meropenem 500 MG in Sodium Chloride 0.9% 100 ML IVPB SCH ×3 (01:15→16:26)
[2018-03-20] MEDS: Albuterol-Ipratrop 3 mg / 0.5 (3 ml) UD INH SCH ×3 (02:20→19:52)
[2018-03-20] MEDS: Sodium Chloride 0.9% 1,000 ML IV SCH ×2 (05:00→15:20)
[2018-03-20 06:36] LABS: BASO % 0.1 % (0.0-2.0); HEMOGLOBIN 10.1 g/dL (12.0-18.0); LYMPH # 0.2 K/uL (1.0-4.3); LYMPH % 0.7 % (20.0-40.0); MEAN CELL VOLUME 93.4 fL (80.0-94.0); MEAN CORPUSCULAR HEMOGLOBIN 30.1 pg (27.0-31.0); MEAN CORPUSCULAR HGB CONC 32.2 g/dL (33.0-37.0); MEAN PLATELET VOLUME 8.4 fL (7.2-11.7); MONO # 0.2 K/uL (0.0-0.8); MONO % 0.7 % (0.0-10.0); NEUT # 33.4 K/uL (1.8-7.0); NEUT % 98.5 % (50.0-75.0); PLATELET COUNT 279 K/uL (130-400); RBC 3.34 Mil/uL (4.40-5.90); RED CELL DISTRIBUTION WIDTH 16.9 % (11.5-14.5); WHITE BLOOD COUNT 33.9 K/uL (4.8-10.8)
[2018-03-20 07:07] LABS: ALT/SGPT 584 U/L (21-72); AST/SGOT 664 U/L (17-59); BLOOD UREA NITROGEN 23 mg/dL (9-20); CALCIUM 7.6 mg/dl (8.6-10.4); GFR NON-AFRICAN AMERICAN > 60
[2018-03-20] MEDS ORDERED: Potassium Chloride 20 mEq/15 ml LIQ UD PO ONE (07:30)
[2018-03-20] MEDS ORDERED: Potassium Phosphate 15 MMOLE in Sodium Chloride 0.9% 250 ML IVPB ONE (07:30)
--- NOTE | 2018-03-20 08:27 | RAD ---
Date of service: 03/19/2018 HISTORY: s/p intubation COMPARISON: Portable chest 03/15/2018. FINDINGS: LUNGS: Endotracheal tube is identified placed with the tip terminating approximately 4.5 cm above the mandie. External pacemaker obscures mandie somewhat. Improved infiltrate seen the mid to inferior left lung zone with atelectasis favored at the right base rather than infiltrate. Linear atelectasis or trace fluid is seen in the minor fissure. No pleural effusion or pneumothorax bilaterally. Pleural thickening is again seen the upper right lung zone laterally. PLEURA: No significant pleural effusion identified, no pneumothorax apparent. CARDIOVASCULAR: No aortic atherosclerotic calcification present. Normal cardiac size. No pulmonary vascular congestion. OSSEOUS STRUCTURES: Post ORIF bilateral proximal humeri. VISUALIZED UPPER ABDOMEN: Normal. OTHER FINDINGS: None. IMPRESSION: Improved aeration left mid inferior lung zones with significant residual infiltrate remaining. Trace atelectasis is favored over infiltrate right base. ET tube in good apparent position. External pacemaker identified.
[2018-03-20 08:28] LABS: BANDS 8 % (0-2); LYMPHOCYTE 1 % (20-40); NEUTROPHIL 91 % (50-75); TOTAL CELLS COUNTED 100
[2018-03-20 08:29] LABS: ANISOCYTOSIS SLIGHT; PLATELET ESTIMATE NORMAL (NORMAL); TARGET CELLS SLIGHT
[2018-03-20] MEDS ORDERED: Magnesium Sulfate 1 gm in D5W 1 GM/100 ML BAG IVPB ONE (08:30)
[2018-03-20 09:39] LABS: ARTERIAL BLOOD GAS PCO2 54 mm/Hg (35-45)
[2018-03-20] MEDS: MethylPREDNISolone 40 mg Vial IVP SCH ×2 (09:59→22:15)
[2018-03-20] MEDS: Enoxaparin 30 mg Syringe SC SCH (10:01)
[2018-03-20 10:42] LABS: ARTERIAL BLOOD GAS HCO3 36.1 mmol/L (21-28); ARTERIAL BLOOD GAS O2 SAT 99.9 % (95-98); ARTERIAL BLOOD GAS PH 7.48 (7.35-7.45); ARTERIAL BLOOD GAS PO2 176 mm/Hg (80-100); ARTERIAL BLOOD GAS TCO2 41.9 mmol/L (22-28)
--- NOTE | 2018-03-20 11:20 | CP.CCUPN ---
<Merry Farias - Last Filed: 03/20/18 12:04> CCU Subjective - Physician Review Subjective (Free Text): Critical Care Progress Note for Dr. Gibbons's service Patient seen and examined at bedside. 12 point ROS limited as patient intubated and non responsive. Critical Care Time Spent (in minutes): 35 CCU Objective - Vital Signs / Intake & Output Vital Signs (Last 4 hours): Vital Signs Temp Pulse Resp BP Pulse Ox 03/20/18 10:20 95 H 16 106/67 100 03/20/18 09:00 96 H 15 100 03/20/18 08:55 95 H 16 105/69 100 03/20/18 08:00 98.9 F 100 Intake and Output (Last 8hrs): Intake & Output 03/19/18 03/20/18 03/20/18 22:59 06:59 14:59 Intake Total 2457.1 1636.5 1257.5 Output Total 410 1150 650 Balance 2047.1 486.5 607.5 Weight 110 lb 14.28 oz 113 lb 1.554 oz Intake: IV 34 224 250 Intake, IV Amount 2173.1 1412.5 927.5 R subclavian TLC medial 350 277.5 port Right Distal Port 1900 800 500 Subclavian Right Forearm 100 Right Proximal Port 173.1 262.5 150 Subclavian Oral 250 0 80 Output: Urine 410 1150 650 Urethral (Simmons) 410 1150 650 Emesis 0 Other: # Voids Urine, Voided 1 # Bowel Movements 0 0 0 - Physical Exam Physical Exam Limitations: Positive for: Clinical Condition Head: Positive for: Atraumatic, Normocephalic Pupils: Positive for: PERRL Mouth: Positive for: Dry, Other (ORAL ETT) Neck: Negative for: JVD Respiratory/Chest: Positive for: Good Air Exchange. Negative for: Respiratory Distress, Accessory Muscle Use Cardiovascular: Positive for: Regular Rate and Rhythm, Normal S1, S2. Negative for: Murmurs, Irregular Rhythm, Bradycardic Abdomen: Positive for: Normal Bowel Sounds. Negative for: Tenderness, Distention, Peritoneal Signs Genitourinary Male: Positive for: Other (Simmons in place) Upper Extremity: Positive for: Normal Inspection. Negative for: Cyanosis, Edema Lower Extremity: Positive for: Normal Inspection. Negative for: Edema Neurological: Negative for: GCS=15 Skin: Positive for: Dry, Normal Color. Negative for: Erythematous - Medications Active Medications: Active Medications Generic Name Dose Route Start Last Admin Trade Name Freq PRN Reason Stop Dose Admin Albuterol/Ipratropium 3 ml 03/18/18 21:15 03/20/18 07:40 Duoneb 3 Mg/0.5 Mg (3 Ml) Ud INH 3 ml RQ6 VELMA Administration Diltiazem HCl 240 mg 03/15/18 10:00 03/18/18 09:32 Cardizem Cd PO Not Given DAILY VELMA Enoxaparin Sodium 30 mg 03/07/18 11:00 03/20/18 10:01 Lovenox SC 30 mg DAILY VELMA Administration Fludrocortisone Acetate 0.1 mg 03/10/18 11:15 03/20/18 10:20 Florinef PO 0.1 mg DAILY VELMA Administration Micafungin Sodium 100 mg/ 100 mls @ 100 mls/hr 03/04/18 01:00 03/20/18 01:00 Sodium Chloride IV 100 mls/hr Q24H VELMA Administration Protocol Meropenem 500 mg/ Sodium 100 mls @ 100 mls/hr 03/04/18 01:15 03/20/18 09:30 Chloride IVPB 100 mls/hr Q8H VELMA Administration Protocol Norepinephrine Bitartrate 4 mg 254 mls @ 15.24 mls/hr 03/19/18 17:44 03/20/18 10:20 / Sodium Chloride IV 8 mcg/min .[id number] PRN 30.48 mls/hr TITRATE PER MD ORDER Administration Protocol 4 MCG/MIN Potassium Chloride 20 meq in 100 mls @ 50 mls/hr 03/20/18 08:00 03/20/18 10:01 Potassium Chloride 20 Meq/100 Ml IVPB 03/20/18 13:59 50 mls/hr Q2H VELMA Administration Potassium Phosphate 15 mmole/ 255 mls @ 42.5 mls/hr 03/20/18 07:30 03/20/18 07:59 Sodium Chloride IVPB 03/20/18 13:29 42.5 mls/hr ONCE ONE Administration Sodium Chloride 250 mls @ 500 mls/hr 03/20/18 11:00 Sodium Chloride 0.9% IV 03/20/18 11:29 .Q30M ONE Methylprednisolone 40 mg 03/17/18 22:00 03/20/18 09:59 Solu-Medrol IVP 40 mg Q12 VELMA Administration Pantoprazole Sodium 40 mg 03/20/18 10:00 03/20/18 10:00 Protonix Inj IVP 40 mg DAILY VELMA Administration - Patient Studies Lab Studies: Microbiology Studies 03/19/18 20:35 Gram Stain - Final Trachasp 03/18/18 20:36 MRSA Culture - Final Naris MRSA NOT DETECTED Lab Studies 03/20/18 03/20/18 03/20/18 Range/Units 06:26 06:26 05:50 WBC 33.9 H (4.8-10.8) K/uL RBC 3.34 L (4.40-5.90) Mil/uL Hgb 10.1 L (12.0-18.0) g/dL Hct 31.2 L (35.0-51.0) % MCV 93.4 (80.0-94.0) fL MCH 30.1 (27.0-31.0) pg MCHC 32.2 L (33.0-37.0) g/dL RDW 16.9 H (11.5-14.5) % Plt Count 279 D (130-400) K/uL MPV 8.4 (7.2-11.7) fL Neut % (Auto) 98.5 H (50.0-75.0) % Lymph % (Auto) 0.7 L (20.0-40.0) % Brewster % (Auto) 0.7 (0.0-10.0) % Eos % (Auto) 0.0 (0.0-4.0) % Baso % (Auto) 0.1 (0.0-2.0) % Neut # (Auto) 33.4 H (1.8-7.0) K/uL Lymph # (Auto) 0.2 L (1.0-4.3) K/uL Brewster # (Auto) 0.2 (0.0-0.8) K/uL Eos # (Auto) 0.0 (0.0-0.7) K/uL Baso # (Auto) 0.0 (0.0-0.2) K/uL Neutrophils % (Manual) 91 H (50-75) % Band Neutrophils % 8 H (0-2) % Lymphocytes % (Manual) 1 L (20-40) % Monocytes % (Manual) TEST NOT PERFORMED (0-10) % Platelet Estimate Normal (NORMAL) Anisocytosis (manual) Slight Target Cells Slight Puncture Site pCO2 (35-45) mm/Hg pO2 (80-100) mm/Hg HCO3 (21-28) mmol/L ABG pH (7.35-7.45) ABG Total CO2 (22-28) mmol/L ABG O2 Saturation (95-98) % ABG Base Excess (-2.0-3.0) mmol/L [place] Test ABG Potassium (3.6-5.2) mmol/L A-a O2 Difference mm/Hg Respiratory Index Glucose (75-110) mg/dl Lactate (0.7-2.1) mmol/L Vent Mode Mechanical Rate FiO2 % Tidal Volume PEEP Crit Value Called To Crit Value Called By Crit Value Read Back Blood Gas Notified Time Sodium 142 (132-148) mmol/L Potassium 2.3 L* D (3.6-5.2) mmol/L Chloride 98 (98-107) mmol/L Carbon Dioxide 40 H* (22-30) mmol/L Anion Gap 6 L (10-20) BUN 23 H (9-20) mg/dL Creatinine 0.3 L (0.8-1.5) mg/dL Est GFR ( Amer) > 60 Est GFR (Non-Af Amer) > 60 POC Glucose (mg/dL) 160 H (65-110) mg/dL Random Glucose 133 H D (75-110) mg/dL Lactic Acid (0.7-2.1) mmol/L Calcium 7.6 L (8.6-10.4) mg/dl Phosphorus 2.2 L (2.5-4.5) mg/dL Magnesium 1.4 L (1.6-2.3) mg/dL Total Bilirubin 1.7 H (0.2-1.3) mg/dL AST 664 H D (17-59) U/L ALT 584 H D (21-72) U/L Alkaline Phosphatase 116 (38-126) U/L Total Creatine Kinase (55-170) U/L CK-MB (Mass) (0.0-3.38) ng/mL Troponin I 0.2850 H* (0.00-0.120) ng/mL Total Protein 5.9 L (6.3-8.3) g/dL Albumin 3.0 L (3.5-5.0) g/dL Globulin 2.9 (2.2-3.9) gm/dL Albumin/Globulin Ratio 1.0 (1.0-2.1) Procalcitonin (0.19-0.49) NG/ML Arterial Blood Potassium (3.6-5.2) mmol/L Urine Color (YELLOW) Urine Clarity (Clear) Urine pH (5.0-8.0) Ur Specific [place] (1.003-1.030) Urine Protein (NEGATIVE) mg/dL Urine Glucose (UA) (Normal) mg/dL Urine Ketones (NEGATIVE) mg/dL Urine Blood (NEGATIVE) Urine Nitrate (NEGATIVE) Urine Bilirubin (NEGATIVE) Urine Urobilinogen (0.2-1.0) mg/dL Ur Leukocyte Esterase (Negative) Mehrdad/uL Urine WBC (Auto) (0-5) /hpf Urine RBC (Auto) (0-3) /hpf Ur Squamous Epith Cells (0-5) /hpf Urine Bacteria (<OCC) Hyaline Casts (0-2) /lpf 03/20/18 03/20/18 03/20/18 Range/Units 04:25 00:03 00:03 WBC (4.8-10.8) K/uL RBC (4.40-5.90) Mil/uL Hgb (12.0-18.0) g/dL Hct (35.0-51.0) % MCV (80.0-94.0) fL MCH (27.0-31.0) pg MCHC (33.0-37.0) g/dL RDW (11.5-14.5) % Plt Count (130-400) K/uL MPV (7.2-11.7) fL Neut % (Auto) (50.0-75.0) % Lymph % (Auto) (20.0-40.0) % Brew[place] % (Auto) (0.0-10.0) % Eos % (Auto) (0.0-4.0) % Baso % (Auto) (0.0-2.0) % Neut # (Auto) (1.8-7.0) K/uL Lymph # (Auto) (1.0-4.3) K/uL Brewster # (Auto) (0.0-0.8) K/uL Eos # (Auto) (0.0-0.7) K/uL Baso # (Auto) (0.0-0.2) K/uL Neutrophils % (Manual) (50-75) % Band Neutrophils % (0-2) % Lymphocytes % (Manual) (20-40) % Monocytes % (Manual) (0-10) % Platelet Estimate (NORMAL) Anisocytosis (manual) Target Cells Puncture Site Rb pCO2 54 H (35-45) mm/Hg pO2 176 H (80-100) mm/Hg HCO3 36.1 H (21-28) mmol/L ABG pH 7.48 H (7.35-7.45) ABG Total CO2 41.9 H (22-28) mmol/L ABG O2 Saturation 99.9 H (95-98) % ABG Base Excess 14.2 H (-2.0-3.0) mmol/L [place] Test Na ABG Potassium 2.3 L* (3.6-5.2) mmol/L A-a O2 Difference 113.0 mm/Hg Respiratory Index 0.6 Glucose 137 H (75-110) mg/dl Lactate 1.2 (0.7-2.1) mmol/L Vent Mode Prvc Mechanical Rate 16 FiO2 50.0 % Tidal Volume 450 PEEP 5 Crit Value Called To Huyen/rn Crit Value Called By Pawel barnes/rt Crit Value Read Back Y Blood Gas Notified Time 500 Sodium 145.0 (132-148) mmol/L Potassium (3.6-5.2) mmol/L Chloride 103.0 (98-107) mmol/L Carbon Dioxide (22-30) mmol/L Anion Gap (10-20) BUN (9-20) mg/dL Creatinine (0.8-1.5) mg/dL Est GFR ( Amer) Est GFR (Non-Af Amer) POC Glucose (mg/dL) 169 H 169 H (65-110) mg/dL Random Glucose (75-110) mg/dL Lactic Acid (0.7-2.1) mmol/L Calcium (8.6-10.4) mg/dl Phosphorus (2.5-4.5) mg/dL Magnesium (1.6-2.3) mg/dL Total Bilirubin (0.2-1.3) mg/dL AST (17-59) U/L ALT (21-72) U/L Alkaline Phosphatase (38-126) U/L Total Creatine Kinase (55-170) U/L CK-MB (Mass) (0.0-3.38) ng/mL Troponin I (0.00-0.120) ng/mL Total Protein (6.3-8.3) g/dL Albumin (3.5-5.0) g/dL Globulin (2.2-3.9) gm/dL Albumin/Globulin Ratio (1.0-2.1) Procalcitonin (0.19-0.49) NG/ML Arterial Blood Potassium 2.3 L* (3.6-5.2) mmol/L Urine Color (YELLOW) Urine Clarity (Clear) Urine pH (5.0-8.0) Ur Specific [place] (1.003-1.030) Urine Protein (NEGATIVE) mg/dL Urine Glucose (UA) (Normal) mg/dL Urine Ketones (NEGATIVE) mg/dL Urine Blood (NEGATIVE) Urine Nitrate (NEGATIVE) Urine Bilirubin (NEGATIVE) Urine Urobilinogen (0.2-1.0) mg/dL Ur Leukocyte Esterase (Negative) Mehrdad/uL Urine WBC (Auto) (0-5) /hpf Urine RBC (Auto) (0-3) /hpf Ur Squamous Epith Cells (0-5) /hpf Urine Bacteria (<OCC) Hyaline Casts (0-2) /lpf 03/19/18 03/19/18 03/19/18 Range/Units 22:22 21:05 19:26 WBC (4.8-10.8) K/uL RBC (4.40-5.90) Mil/uL Hgb (12.0-18.0) g/dL Hct (35.0-51.0) % MCV (80.0-94.0) fL MCH (27.0-31.0) pg MCHC (33.0-37.0) g/dL RDW (11.5-14.5) % Plt Count (130-400) K/uL MPV (7.2-11.7) fL Neut % (Auto) (50.0-75.0) % Lymph % (Auto) (20.0-40.0) % [place] % (Auto) (0.0-10.0) % Eos % (Auto) (0.0-4.0) % Baso % (Auto) (0.0-2.0) % Neut # (Auto) (1.8-7.0) K/uL Lymph # (Auto) (1.0-4.3) K/uL Brewster # (Auto) (0.0-0.8) K/uL Eos # (Auto) (0.0-0.7) K/uL Baso # (Auto) (0.0-0.2) K/uL Neutrophils % (Manual) (50-75) % Band Neutrophils % (0-2) % Lymphocytes % (Manual) (20-40) % Monocytes % (Manual) (0-10) % Platelet Estimate (NORMAL) Anisocytosis (manual) Target Cells Puncture Site pCO2 (35-45) mm/Hg pO2 (80-100) mm/Hg HCO3 (21-28) mmol/L ABG pH (7.35-7.45) ABG Total CO2 (22-28) mmol/L ABG O2 Saturation (95-98) % ABG Base Excess (-2.0-3.0) mmol/L [place] Test ABG Potassium (3.6-5.2) mmol/L A-a O2 Difference mm/Hg Respiratory Index Glucose (75-110) mg/dl Lactate (0.7-2.1) mmol/L Vent Mode Mechanical Rate FiO2 % Tidal Volume PEEP Crit Value Called To Crit Value Called By Crit Value Read Back Blood Gas Notified Time Sodium (132-148) mmol/L Potassium (3.6-5.2) mmol/L Chloride (98-107) mmol/L Carbon Dioxide (22-30) mmol/L Anion Gap (10-20) BUN (9-20) mg/dL Creatinine (0.8-1.5) mg/dL Est GFR ( Amer) Est GFR (Non-Af Amer) POC Glucose (mg/dL) (65-110) mg/dL Random Glucose (75-110) mg/dL Lactic Acid 1.3 (0.7-2.1) mmol/L Calcium (8.6-10.4) mg/dl Phosphorus (2.5-4.5) mg/dL Magnesium (1.6-2.3) mg/dL Total Bilirubin (0.2-1.3) mg/dL AST (17-59) U/L ALT (21-72) U/L Alkaline Phosphatase (38-126) U/L Total Creatine Kinase 41 L (55-170) U/L CK-MB (Mass) 3.31 (0.0-3.38) ng/mL Troponin I 0.3160 H* (0.00-0.120) ng/mL Total Protein (6.3-8.3) g/dL Albumin (3.5-5.0) g/dL Globulin (2.2-3.9) gm/dL Albumin/Globulin Ratio (1.0-2.1) Procalcitonin (0.19-0.49) NG/ML Arterial Blood Potassium (3.6-5.2) mmol/L Urine Color Yellow (YELLOW) Urine Clarity Hazy (Clear) Urine pH 7.0 (5.0-8.0) Ur Specific [place] 1.012 (1.003-1.030) Urine Protein 2+ H (NEGATIVE) mg/dL Urine Glucose (UA) 1+ H (Normal) mg/dL Urine Ketones Negative (NEGATIVE) mg/dL Urine Blood 1+ H (NEGATIVE) Urine Nitrate Negative (NEGATIVE) Urine Bilirubin Negative (NEGATIVE) Urine Urobilinogen Normal (0.2-1.0) mg/dL Ur Leukocyte Esterase Neg (Negative) Mehrdad/uL Urine WBC (Auto) 5 (0-5) /hpf Urine RBC (Auto) 5 H (0-3) /hpf Ur Squamous Epith Cells < 1 (0-5) /hpf Urine Bacteria Rare (<OCC) Hyaline Casts 3-5 H (0-2) /lpf 03/19/18 03/19/18 03/19/18 Range/Units 18:31 18:00 18:00 WBC (4.8-10.8) K/uL RBC (4.40-5.90) Mil/uL Hgb (12.0-18.0) g/dL Hct (35.0-51.0) % MCV (80.0-94.0) fL MCH (27.0-31.0) pg MCHC (33.0-37.0) g/dL RDW (11.5-14.5) % Plt Count (130-400) K/uL MPV (7.2-11.7) fL Neut % (Auto) (50.0-75.0) % Lymph % (Auto) (20.0-40.0) % [place] % (Auto) (0.0-10.0) % Eos % (Auto) (0.0-4.0) % Baso % (Auto) (0.0-2.0) % Neut # (Auto) (1.8-7.0) K/uL Lymph # (Auto) (1.0-4.3) K/uL [place] # (Auto) (0.0-0.8) K/uL Eos # (Auto) (0.0-0.7) K/uL Baso # (Auto) (0.0-0.2) K/uL Neutrophils % (Manual) (50-75) % Band Neutrophils % (0-2) % Lymphocytes % (Manual) (20-40) % Monocytes % (Manual) (0-10) % Platelet Estimate (NORMAL) Anisocytosis (manual) Target Cells Puncture Site Rb pCO2 61 H (35-45) mm/Hg pO2 357 H (80-100) mm/Hg HCO3 33.2 H (21-28) mmol/L ABG pH 7.40 (7.35-7.45) ABG Total CO2 39.7 H (22-28) mmol/L ABG O2 Saturation 99.9 H (95-98) % ABG Base Excess 10.5 H (-2.0-3.0) mmol/L [place] Test Na ABG Potassium 3.5 L (3.6-5.2) mmol/L A-a O2 Difference 280.0 mm/Hg Respiratory Index 0.8 Glucose 258 H (75-110) mg/dl Lactate 4.0 H* (0.7-2.1) mmol/L Vent Mode Prvc Mechanical Rate 16 FiO2 100.0 % Tidal Volume 450 PEEP 5 Crit Value Called To Dr. schwartz Crit Value Called By Waqas loomis Crit Value Read Back Y Blood Gas Notified Time 1834 Sodium 147.0 142 (132-148) mmol/L Potassium 4.1 (3.6-5.2) mmol/L Chloride 109.0 H 97 L (98-107) mmol/L Carbon Dioxide 40 H* (22-30) mmol/L Anion Gap 9 L (10-20) BUN 34 H (9-20) mg/dL Creatinine 0.7 L (0.8-1.5) mg/dL Est GFR ( Amer) > 60 Est GFR (Non-Af Amer) > 60 POC Glucose (mg/dL) (65-110) mg/dL Random Glucose 293 H D (75-110) mg/dL Lactic Acid (0.7-2.1) mmol/L Calcium 8.4 L (8.6-10.4) mg/dl Phosphorus 5.8 H (2.5-4.5) mg/dL Magnesium 2.1 (1.6-2.3) mg/dL Total Bilirubin 1.1 (0.2-1.3) mg/dL AST 1086 H (17-59) U/L ALT 771 H D (21-72) U/L Alkaline Phosphatase 129 H (38-126) U/L Total Creatine Kinase (55-170) U/L CK-MB (Mass) (0.0-3.38) ng/mL Troponin I (0.00-0.120) ng/mL Total Protein 6.1 L (6.3-8.3) g/dL Albumin 3.2 L (3.5-5.0) g/dL Globulin 2.9 (2.2-3.9) gm/dL Albumin/Globulin Ratio 1.1 (1.0-2.1) Procalcitonin 0.12 L (0.19-0.49) NG/ML Arterial Blood Potassium 3.5 L (3.6-5.2) mmol/L Urine Color (YELLOW) Urine Clarity (Clear) Urine pH (5.0-8.0) Ur Specific [place] (1.003-1.030) Urine Protein (NEGATIVE) mg/dL Urine Glucose (UA) (Normal) mg/dL Urine Ketones (NEGATIVE) mg/dL Urine Blood (NEGATIVE) Urine Nitrate (NEGATIVE) Urine Bilirubin (NEGATIVE) Urine Urobilinogen (0.2-1.0) mg/dL Ur Leukocyte Esterase (Negative) Mehrdad/uL Urine WBC (Auto) (0-5) /hpf Urine RBC (Auto) (0-3) /hpf Ur Squamous Epith Cells (0-5) /hpf Urine Bacteria (<OCC) Hyaline Casts (0-2) /lpf 03/19/18 Range/Units 18:00 WBC 26.9 H (4.8-10.8) K/uL RBC 3.47 L (4.40-5.90) Mil/uL Hgb 10.2 L (12.0-18.0) g/dL Hct 32.7 L (35.0-51.0) % MCV 94.2 H D (80.0-94.0) fL MCH 29.4 (27.0-31.0) pg MCHC 31.2 L (33.0-37.0) g/dL RDW 17.2 H (11.5-14.5) % Plt Count 425 H (130-400) K/uL MPV 8.0 (7.2-11.7) fL Neut % (Auto) 97.5 H (50.0-75.0) % Lymph % (Auto) 0.4 L (20.0-40.0) % [place] % (Auto) 1.5 (0.0-10.0) % Eos % (Auto) 0.0 (0.0-4.0) % Baso % (Auto) 0.6 (0.0-2.0) % Neut # (Auto) 26.2 H (1.8-7.0) K/uL Lymph # (Auto) 0.1 L (1.0-4.3) K/uL [place] # (Auto) 0.4 (0.0-0.8) K/uL Eos # (Auto) 0.0 (0.0-0.7) K/uL Baso # (Auto) 0.2 (0.0-0.2) K/uL Neutrophils % (Manual) 96 H (50-75) % Band Neutrophils % 2 (0-2) % Lymphocytes % (Manual) 1 L (20-40) % Monocytes % (Manual) 1 (0-10) % Platelet Estimate Increased H (NORMAL) Anisocytosis (manual) Target Cells Puncture Site pCO2 (35-45) mm/Hg pO2 (80-100) mm/Hg HCO3 (21-28) mmol/L ABG pH (7.35-7.45) ABG Total CO2 (22-28) mmol/L ABG O2 Saturation (95-98) % ABG Base Excess (-2.0-3.0) mmol/L [place] Test ABG Potassium (3.6-5.2) mmol/L A-a O2 Difference mm/Hg Respiratory Index Glucose (75-110) mg/dl Lactate (0.7-2.1) mmol/L Vent Mode Mechanical Rate FiO2 % Tidal Volume PEEP Crit Value Called To Crit Value Called By Crit Value Read Back Blood Gas Notified Time Sodium (132-148) mmol/L Potassium (3.6-5.2) mmol/L Chloride (98-107) mmol/L Carbon Dioxide (22-30) mmol/L Anion Gap (10-20) BUN (9-20) mg/dL Creatinine (0.8-1.5) mg/dL Est GFR ( Amer) Est GFR (Non-Af Amer) POC Glucose (mg/dL) (65-110) mg/dL Random Glucose (75-110) mg/dL Lactic Acid (0.7-2.1) mmol/L Calcium (8.6-10.4) mg/dl Phosphorus (2.5-4.5) mg/dL Magnesium (1.6-2.3) mg/dL Total Bilirubin (0.2-1.3) mg/dL AST (17-59) U/L ALT (21-72) U/L Alkaline Phosphatase (38-126) U/L Total Creatine Kinase (55-170) U/L CK-MB (Mass) (0.0-3.38) ng/mL Troponin I (0.00-0.120) ng/mL Total Protein (6.3-8.3) g/dL Albumin (3.5-5.0) g/dL Globulin (2.2-3.9) gm/dL Albumin/Globulin Ratio (1.0-2.1) Procalcitonin (0.19-0.49) NG/ML Arterial Blood Potassium (3.6-5.2) mmol/L Urine Color (YELLOW) Urine Clarity (Clear) Urine pH (5.0-8.0) Ur Specific [place] (1.003-1.030) Urine Protein (NEGATIVE) mg/dL Urine Glucose (UA) (Normal) mg/dL Urine Ketones (NEGATIVE) mg/dL Urine Blood (NEGATIVE) Urine Nitrate (NEGATIVE) Urine Bilirubin (NEGATIVE) Urine Urobilinogen (0.2-1.0) mg/dL Ur Leukocyte Esterase (Negative) Mehrdad/uL Urine WBC (Auto) (0-5) /hpf Urine RBC (Auto) (0-3) /hpf Ur Squamous Epith Cells (0-5) /hpf Urine Bacteria (<OCC) Hyaline Casts (0-2) /lpf Laboratory Results - last 24 hr 03/19/18 03/19/18 03/19/18 18:00 18:00 18:00 WBC 26.9 H RBC 3.47 L Hgb 10.2 L Hct 32.7 L MCV 94.2 H D MCH 29.4 MCHC 31.2 L RDW 17.2 H Plt Count 425 H MPV 8.0 Neut % (Auto) 97.5 H Lymph % (Auto) 0.4 L [place] % (Auto) 1.5 Eos % (Auto) 0.0 Baso % (Auto) 0.6 Neut # (Auto) 26.2 H Lymph # (Auto) 0.1 L [place] # (Auto) 0.4 Eos # (Auto) 0.0 Baso # (Auto) 0.2 Neutrophils % (Manual) 96 H Band Neutrophils % 2 Lymphocytes % (Manual) 1 L Monocytes % (Manual) 1 Platelet Estimate Increased H Anisocytosis (manual) Target Cells Puncture Site pCO2 pO2 HCO3 ABG pH ABG Total CO2 ABG O2 Saturation ABG Base Excess [place] Test ABG Potassium A-a O2 Difference Respiratory Index Glucose Lactate Vent Mode Mechanical Rate FiO2 Tidal Volume PEEP Crit Value Called To Crit Value Called By Crit Value Read Back Blood Gas Notified Time Sodium 142 Potassium 4.1 Chloride 97 L Carbon Dioxide 40 H* Anion Gap 9 L BUN 34 H Creatinine 0.7 L Est GFR ( Amer) > 60 Est GFR (Non-Af Amer) > 60 POC Glucose (mg/dL) Random Glucose 293 H D Lactic Acid Calcium 8.4 L Phosphorus 5.8 H Magnesium 2.1 Total Bilirubin 1.1 AST 1086 H ALT 771 H D Alkaline Phosphatase 129 H Total Creatine Kinase CK-MB (Mass) Troponin I Total Protein 6.1 L Albumin 3.2 L Globulin 2.9 Albumin/Globulin Ratio 1.1 Procalcitonin 0.12 L Arterial Blood Potassium Urine Color Urine Clarity Urine pH Ur Specific [place] Urine Protein Urine Glucose (UA) Urine Ketones Urine Blood Urine Nitrate Urine Bilirubin Urine Urobilinogen Ur Leukocyte Esterase Urine WBC (Auto) Urine RBC (Auto) Ur Squamous Epith Cells Urine Bacteria Hyaline Casts 03/19/18 03/19/18 03/19/18 18:31 19:26 21:05 WBC RBC Hgb Hct MCV MCH MCHC RDW Plt Count MPV Neut % (Auto) Lymph % (Auto) [place] % (Auto) Eos % (Auto) Baso % (Auto) Neut # (Auto) Lymph # (Auto) [place] # (Auto) Eos # (Auto) Baso # (Auto) Neutrophils % (Manual) Band Neutrophils % Lymphocytes % (Manual) Monocytes % (Manual) Platelet Estimate Anisocytosis (manual) Target Cells Puncture Site Rb pCO2 61 H pO2 357 H HCO3 33.2 H ABG pH 7.40 ABG Total CO2 39.7 H ABG O2 Saturation 99.9 H ABG Base Excess 10.5 H [place] Test Na ABG Potassium 3.5 L A-a O2 Difference 280.0 Respiratory Index 0.8 Glucose 258 H Lactate 4.0 H* Vent Mode Prvc Mechanical Rate 16 FiO2 100.0 Tidal Volume 450 PEEP 5 Crit Value Called To Dr. schwartz Crit Value Called By Waqas loomis Crit Value Read Back Y Blood Gas Notified Time 1834 Sodium 147.0 Potassium Chloride 109.0 H Carbon Dioxide Anion Gap BUN Creatinine Est GFR ( Amer) Est GFR (Non-Af Amer) POC Glucose (mg/dL) Random Glucose Lactic Acid Calcium Phosphorus Magnesium Total Bilirubin AST ALT Alkaline Phosphatase Total Creatine Kinase 41 L CK-MB (Mass) 3.31 Troponin I 0.3160 H* Total Protein Albumin Globulin Albumin/Globulin Ratio Procalcitonin Arterial Blood Potassium 3.5 L Urine Color Yellow Urine Clarity Hazy Urine pH 7.0 Ur Specific [place] 1.012 Urine Protein 2+ H Urine Glucose (UA) 1+ H Urine Ketones Negative Urine Blood 1+ H Urine Nitrate Negative Urine Bilirubin Negative Urine Urobilinogen Normal Ur Leukocyte Esterase Neg Urine WBC (Auto) 5 Urine RBC (Auto) 5 H Ur Squamous Epith Cells < 1 Urine Bacteria Rare Hyaline Casts 3-5 H 03/19/18 03/20/18 03/20/18 22:22 00:03 00:03 WBC RBC Hgb Hct MCV MCH MCHC RDW Plt Count MPV Neut % (Auto) Lymph % (Auto) [place] % (Auto) Eos % (Auto) Baso % (Auto) Neut # (Auto) Lymph # (Auto) [place] # (Auto) Eos # (Auto) Baso # (Auto) Neutrophils % (Manual) Band Neutrophils % Lymphocytes % (Manual) Monocytes % (Manual) Platelet Estimate Anisocytosis (manual) Target Cells Puncture Site pCO2 pO2 HCO3 ABG pH ABG Total CO2 ABG O2 Saturation ABG Base Excess [place] Test ABG Potassium A-a O2 Difference Respiratory Index Glucose Lactate Vent Mode Mechanical Rate FiO2 Tidal Volume PEEP Crit Value Called To Crit Value Called By Crit Value Read Back Blood Gas Notified Time Sodium Potassium Chloride Carbon Dioxide Anion Gap BUN Creatinine Est GFR ( Amer) Est GFR (Non-Af Amer) POC Glucose (mg/dL) 169 H 169 H Random Glucose Lactic Acid 1.3 Calcium Phosphorus Magnesium Total Bilirubin AST ALT Alkaline Phosphatase Total Creatine Kinase CK-MB (Mass) Troponin I Total Protein Albumin Globulin Albumin/Globulin Ratio Procalcitonin Arterial Blood Potassium Urine Color Urine Clarity Urine pH Ur Specific [place] Urine Protein Urine Glucose (UA) Urine Ketones Urine Blood Urine Nitrate Urine Bilirubin Urine Urobilinogen Ur Leukocyte Esterase Urine WBC (Auto) Urine RBC (Auto) Ur Squamous Epith Cells Urine Bacteria Hyaline Casts 03/20/18 03/20/18 03/20/18 04:25 05:50 06:26 WBC 33.9 H RBC 3.34 L Hgb 10.1 L Hct 31.2 L MCV 93.4 MCH 30.1 MCHC 32.2 L RDW 16.9 H Plt Count 279 D MPV 8.4 Neut % (Auto) 98.5 H Lymph % (Auto) 0.7 L [place] % (Auto) 0.7 Eos % (Auto) 0.0 Baso % (Auto) 0.1 Neut # (Auto) 33.4 H Lymph # (Auto) 0.2 L [place] # (Auto) 0.2 Eos # (Auto) 0.0 Baso # (Auto) 0.0 Neutrophils % (Manual) 91 H Band Neutrophils % 8 H Lymphocytes % (Manual) 1 L Monocytes % (Manual) TEST NOT PERFORMED Platelet Estimate Normal Anisocytosis (manual) Slight Target Cells Slight Puncture Site Rb pCO2 54 H pO2 176 H HCO3 36.1 H ABG pH 7.48 H ABG Total CO2 41.9 H ABG O2 Saturation 99.9 H ABG Base Excess 14.2 H [place] Test Na ABG Potassium 2.3 L* A-a O2 Difference 113.0 Respiratory Index 0.6 Glucose 137 H Lactate 1.2 Vent Mode Prvc Mechanical Rate 16 FiO2 50.0 Tidal Volume 450 PEEP 5 Crit Value Called To Huyen/rn Crit Value Called By Pawel barnes/rt Crit Value Read Back Y Blood Gas Notified Time 500 Sodium 145.0 Potassium Chloride 103.0 Carbon Dioxide Anion Gap BUN Creatinine Est GFR ( Amer) Est GFR (Non-Af Amer) POC Glucose (mg/dL) 160 H Random Glucose Lactic Acid Calcium Phosphorus Magnesium Total Bilirubin AST ALT Alkaline Phosphatase Total Creatine Kinase CK-MB (Mass) Troponin I Total Protein Albumin Globulin Albumin/Globulin Ratio Procalcitonin Arterial Blood Potassium 2.3 L* Urine Color Urine Clarity Urine pH Ur Specific [place] Urine Protein Urine Glucose (UA) Urine Ketones Urine Blood Urine Nitrate Urine Bilirubin Urine Urobilinogen Ur Leukocyte Esterase Urine WBC (Auto) Urine RBC (Auto) Ur Squamous Epith Cells Urine Bacteria Hyaline Casts 03/20/18 06:26 WBC RBC Hgb Hct MCV MCH MCHC RDW Plt Count MPV Neut % (Auto) Lymph % (Auto) [place] % (Auto) Eos % (Auto) Baso % (Auto) Neut # (Auto) Lymph # (Auto) [place] # (Auto) Eos # (Auto) Baso # (Auto) Neutrophils % (Manual) Band Neutrophils % Lymphocytes % (Manual) Monocytes % (Manual) Platelet Estimate Anisocytosis (manual) Target Cells Puncture Site pCO2 pO2 HCO3 ABG pH ABG Total CO2 ABG O2 Saturation ABG Base Excess [place] Test ABG Potassium A-a O2 Difference Respiratory Index Glucose Lactate Vent Mode Mechanical Rate FiO2 Tidal Volume PEEP Crit Value Called To Crit Value Called By Crit Value Read Back Blood Gas Notified Time Sodium 142 Potassium 2.3 L* D Chloride 98 Carbon Dioxide 40 H* Anion Gap 6 L BUN 23 H Creatinine 0.3 L Est GFR ( Amer) > 60 Est GFR (Non-Af Amer) > 60 POC Glucose (mg/dL) Random Glucose 133 H D Lactic Acid Calcium 7.6 L Phosphorus 2.2 L Magnesium 1.4 L Total Bilirubin 1.7 H AST 664 H D ALT 584 H D Alkaline Phosphatase 116 Total Creatine Kinase CK-MB (Mass) Troponin I 0.2850 H* Total Protein 5.9 L Albumin 3.0 L Globulin 2.9 Albumin/Globulin Ratio 1.0 Procalcitonin Arterial Blood Potassium Urine Color Urine Clarity Urine pH Ur Specific [place] Urine Protein Urine Glucose (UA) Urine Ketones Urine Blood Urine Nitrate Urine Bilirubin Urine Urobilinogen Ur Leukocyte Esterase Urine WBC (Auto) Urine RBC (Auto) Ur Squamous Epith Cells Urine Bacteria Hyaline Casts Radiology Impressions: Radiology Impressions Chest X-Ray 03/19/18 16:53 IMPRESSION: Improved aeration left mid inferior lung zones with significant residual infiltrate remaining. Trace atelectasis is favored over infiltrate right base. ET tube in good apparent position. External pacemaker identified. Chest X-Ray 03/19/18 17:41 IMPRESSION: Support lines and tubes as above. Hypoinflation. Interstitial thickening may reflect infection or edema, left greater than right. Biapical pleural thickening extends further laterally on the right. Small bilateral pleural effusions. Cardiomegaly. Fingerstick Blood Sugar Results: 169 Review of Systems - Review of Systems Systems not reviewed;Unavailable: Intubated Critical Care Progress Note - Ventilator Checklist Head of Bed 30 Degrees: Yes Daily Sedation Vacation: Yes Daily Assessment of Readiness to Wean: Yes Daily Spontaneous Breathing Trial: Yes PUD Prophalyxis: Yes DVT Prophylaxis: Yes Oral Care with Chlorhexidine Gluconate {CHG}: Yes - Vent Settings MODE:: PRVC TIDAL VOLUME:: 450 RESP RATE:: 16 FIO2:: 40 PEEP:: 5 - Extremities/Vascular Does the Patient have a Central Venous Catheter?: Yes Insertion Site: Internal Jugular Vein Does the Patient need a Central Venous Catheter?: Yes Does the Patient have a Simmons Catheter?: Yes Does the Patient need a Simmons Catheter?: Yes Catheter Insertion Criteria: Need for accurate measurement of output in critically ill patient - Prophylaxis GI Prophylaxis GI: PPI - Prophylaxis DVT Prophylaxis DVT: Lovenox - Nutrition Nutrition: Nutrition Category Date Time Status Pureed [Dysphagia/Modified Consistency Diet] [DIET] Diets 03/12/18 Breakfast Active Assessment/Plan - Assessment and Plan (Free Text) Assessment: Patient is a 72 yo male w/PMH of Alzheimer, COPD, CHF, and arthritis admitted for hypoxic resp failure. Patient was intubated prior to transfer to ICU on 03-19 with subclavian TLC placed on 03/19 for hypotension. Neuro not awake, alert, oriented; no sedation; AMS likely 2/2 hypoxia respiratory failure Pulm Intubated on Ventilator Duoneb Solumedrol CV Levophed Fludrocortisone Cardizem- will be held in setting of low blood pressure GI no active issues Protonix Renal Phosphorus, Potassium, Magnesium repleted NS bolus 250ml NS @ 100mls/hr ID repeat cx pending + cx for yeast and e coli on 03/02 + cx for yeast on 03/12 Micafungin/Meropenem (started on 03/04 both) DVT ppx: Lovenox GI ppx: Protonix Disposition: poor prognosis as patient requires high levels of oxygenation via high flow however patient has dementia and continues to remove mask causing desaturation and arrest PGY-1 [facility] d/w Dr. Gibbons <Walter Gibbons - Last Filed: 03/20/18 18:11> CCU Objective - Vital Signs / Intake & Output Vital Signs (Last 4 hours): Vital Signs Temp Pulse Resp BP Pulse Ox 03/20/18 18:00 95 H 17 100 03/20/18 17:56 94 H 17 114/69 100 03/20/18 17:55 95 H 17 100 03/20/18 17:00 91 H 16 100 03/20/18 16:56 93 H 16 116/68 100 03/20/18 16:00 99.0 F 96 H 13 100 03/20/18 15:56 94 H 21 133/71 100 03/20/18 15:00 96 H 15 100 03/20/18 14:56 88 16 129/61 100 Intake and Output (Last 8hrs): Intake & Output 03/20/18 03/20/18 03/20/18 06:59 14:59 22:59 Intake Total 1636.5 2039.0 683.3 Output Total 1150 1180 490 Balance 486.5 859.0 193.3 Weight 113 lb 1.554 oz Intake: IV 224 364 60 Intake, IV Amount 1412.5 1595.0 483.3 R subclavian TLC medial 350 555.0 0 port Right Distal Port 800 800 400 Subclavian Right Proximal Port 262.5 240 83.3 Subclavian Oral 0 80 60 Tube Feeding 80 Output: Urine 1150 1180 490 Urethral (Simmons) 1150 1180 490 Other: # Bowel Movements 0 0 0 - Medications Active Medications: Active Medications Generic Name Dose Route Start Last Admin Trade Name Freq PRN Reason Stop Dose Admin Albuterol/Ipratropium 3 ml 03/18/18 21:15 03/20/18 07:40 Duoneb 3 Mg/0.5 Mg (3 Ml) Ud INH 3 ml RQ6 VELMA Administration Diltiazem HCl 240 mg 03/15/18 10:00 03/18/18 09:32 Cardizem Cd PO Not Given DAILY VELMA Enoxaparin Sodium 30 mg 03/07/18 11:00 03/20/18 10:01 Lovenox SC 30 mg DAILY VELMA Administration Fludrocortisone Acetate 0.1 mg 03/10/18 11:15 03/20/18 10:20 Florinef PO 0.1 mg DAILY VELMA Administration Micafungin Sodium 100 mg/ 100 mls @ 100 mls/hr 03/04/18 01:00 03/20/18 01:00 Sodium Chloride IV 100 mls/hr Q24H VELMA Administration Protocol Meropenem 500 mg/ Sodium 100 mls @ 100 mls/hr 03/04/18 01:15 03/20/18 16:26 Chloride IVPB 100 mls/hr Q8H VELMA Administration Protocol Norepinephrine Bitartrate 4 mg 254 mls @ 15.24 mls/hr 03/19/18 17:44 03/20/18 16:15 / Sodium Chloride IV 4 mcg/min .[id number] PRN 15.24 mls/hr TITRATE PER MD ORDER Titration Protocol 4 MCG/MIN Sodium Chloride 1,000 mls @ 100 mls/hr 03/20/18 15:00 03/20/18 15:20 Sodium Chloride 0.9% IV 100 mls/hr .Q10H VELMA Administration Methylprednisolone 40 mg 03/17/18 22:00 03/20/18 09:59 Solu-Medrol IVP 40 mg Q12 VELMA Administration Pantoprazole Sodium 40 mg 03/20/18 10:00 03/20/18 10:00 Protonix Inj IVP 40 mg DAILY VELMA Administration - Patient Studies Lab Studies: Microbiology Studies 03/19/18 19:26 Urine Culture - Final Urine,Catheterized No Growth (<1,000 CFU/ML) 03/19/18 20:35 Gram Stain - Final Trachasp 03/18/18 20:36 MRSA Culture - Final Naris MRSA NOT DETECTED Lab Studies 03/20/18 03/20/18 03/20/18 Range/Units 15:49 11:20 10:51 WBC (4.8-10.8) K/uL RBC (4.40-5.90) Mil/uL Hgb (12.0-18.0) g/dL Hct (35.0-51.0) % MCV (80.0-94.0) fL MCH (27.0-31.0) pg MCHC (33.0-37.0) g/dL RDW (11.5-14.5) % Plt Count (130-400) K/uL MPV (7.2-11.7) fL Neut % (Auto) (50.0-75.0) % Lymph % (Auto) (20.0-40.0) % Brewster % (Auto) (0.0-10.0) % Eos % (Auto) (0.0-4.0) % Baso % (Auto) (0.0-2.0) % Neut # (Auto) (1.8-7.0) K/uL Lymph # (Auto) (1.0-4.3) K/uL Brewster # (Auto) (0.0-0.8) K/uL Eos # (Auto) (0.0-0.7) K/uL Baso # (Auto) (0.0-0.2) K/uL Neutrophils % (Manual) (50-75) % Band Neutrophils % (0-2) % Lymphocytes % (Manual) (20-40) % Monocytes % (Manual) (0-10) % Platelet Estimate (NORMAL) Anisocytosis (manual) Target Cells Puncture Site pCO2 (35-45) mm/Hg pO2 (80-100) mm/Hg HCO3 (21-28) mmol/L ABG pH (7.35-7.45) ABG Total CO2 (22-28) mmol/L ABG O2 Saturation (95-98) % ABG Base Excess (-2.0-3.0) mmol/L [place]re[place] Test ABG Potassium (3.6-5.2) mmol/L A-a O2 Difference mm/Hg Respiratory Index Glucose (75-110) mg/dl Lactate (0.7-2.1) mmol/L Vent Mode Mechanical Rate FiO2 % Tidal Volume PEEP Crit Value Called To Crit Value Called By Crit Value Read Back Blood Gas Notified Time Sodium 141 (132-148) mmol/L Potassium 3.7 (3.6-5.2) mmol/L Chloride 100 (98-107) mmol/L Carbon Dioxide 40 H* (22-30) mmol/L Anion Gap 5 L (10-20) BUN 16 (9-20) mg/dL Creatinine 0.4 L (0.8-1.5) mg/dL Est GFR ( Amer) > 60 Est GFR (Non-Af Amer) > 60 POC Glucose (mg/dL) 205 H (65-110) mg/dL Random Glucose 154 H (75-110) mg/dL Lactic Acid (0.7-2.1) mmol/L Calcium 7.7 L (8.6-10.4) mg/dl Phosphorus 2.9 (2.5-4.5) mg/dL Magnesium 1.7 (1.6-2.3) mg/dL Total Bilirubin 2.2 H (0.2-1.3) mg/dL AST 341 H D (17-59) U/L ALT 466 H D (21-72) U/L Alkaline Phosphatase 104 (38-126) U/L Total Creatine Kinase (55-170) U/L CK-MB (Mass) (0.0-3.38) ng/mL Troponin I 0.1900 H* (0.00-0.120) ng/mL Total Protein 5.9 L (6.3-8.3) g/dL Albumin 2.9 L (3.5-5.0) g/dL Globulin 2.9 (2.2-3.9) gm/dL Albumin/Globulin Ratio 1.0 (1.0-2.1) Procalcitonin (0.19-0.49) NG/ML Arterial Blood Potassium (3.6-5.2) mmol/L Urine Color (YELLOW) Urine Clarity (Clear) Urine pH (5.0-8.0) Ur Specific [place] (1.003-1.030) Urine Protein (NEGATIVE) mg/dL Urine Glucose (UA) (Normal) mg/dL Urine Ketones (NEGATIVE) mg/dL Urine Blood (NEGATIVE) Urine Nitrate (NEGATIVE) Urine Bilirubin (NEGATIVE) Urine Urobilinogen (0.2-1.0) mg/dL Ur Leukocyte Esterase (Negative) Mehrdad/uL Urine WBC (Auto) (0-5) /hpf Urine RBC (Auto) (0-3) /hpf Ur Squamous Epith Cells (0-5) /hpf Urine Bacteria (<OCC) Hyaline Casts (0-2) /lpf 03/20/18 03/20/18 03/20/18 Range/Units 06:26 06:26 05:50 WBC 33.9 H (4.8-10.8) K/uL RBC 3.34 L (4.40-5.90) Mil/uL Hgb 10.1 L (12.0-18.0) g/dL Hct 31.2 L (35.0-51.0) % MCV 93.4 (80.0-94.0) fL MCH 30.1 (27.0-31.0) pg MCHC 32.2 L (33.0-37.0) g/dL RDW 16.9 H (11.5-14.5) % Plt Count 279 D (130-400) K/uL MPV 8.4 (7.2-11.7) fL Neut % (Auto) 98.5 H (50.0-75.0) % Lymph % (Auto) 0.7 L (20.0-40.0) % Brewster % (Auto) 0.7 (0.0-10.0) % Eos % (Auto) 0.0 (0.0-4.0) % Baso % (Auto) 0.1 (0.0-2.0) % Neut # (Auto) 33.4 H (1.8-7.0) K/uL Lymph # (Auto) 0.2 L (1.0-4.3) K/uL Brewster # (Auto) 0.2 (0.0-0.8) K/uL Eos # (Auto) 0.0 (0.0-0.7) K/uL Baso # (Auto) 0.0 (0.0-0.2) K/uL Neutrophils % (Manual) 91 H (50-75) % Band Neutrophils % 8 H (0-2) % Lymphocytes % (Manual) 1 L (20-40) % Monocytes % (Manual) TEST NOT PERFORMED (0-10) % Platelet Estimate Normal (NORMAL) Anisocytosis (manual) Slight Target Cells Slight Puncture Site pCO2 (35-45) mm/Hg pO2 (80-100) mm/Hg HCO3 (21-28) mmol/L ABG pH (7.35-7.45) ABG Total CO2 (22-28) mmol/L ABG O2 Saturation (95-98) % ABG Base Excess (-2.0-3.0) mmol/L [place]re[place] Test ABG Potassium (3.6-5.2) mmol/L A-a O2 Difference mm/Hg Respiratory Index Glucose (75-110) mg/dl Lactate (0.7-2.1) mmol/L Vent Mode Mechanical Rate FiO2 % Tidal Volume PEEP Crit Value Called To Crit Value Called By Crit Value Read Back Blood Gas Notified Time Sodium 142 (132-148) mmol/L Potassium 2.3 L* D (3.6-5.2) mmol/L Chloride 98 (98-107) mmol/L Carbon Dioxide 40 H* (22-30) mmol/L Anion Gap 6 L (10-20) BUN 23 H (9-20) mg/dL Creatinine 0.3 L (0.8-1.5) mg/dL Est GFR ( Amer) > 60 Est GFR (Non-Af Amer) > 60 POC Glucose (mg/dL) 160 H (65-110) mg/dL Random Glucose 133 H D (75-110) mg/dL Lactic Acid (0.7-2.1) mmol/L Calcium 7.6 L (8.6-10.4) mg/dl Phosphorus 2.2 L (2.5-4.5) mg/dL Magnesium 1.4 L (1.6-2.3) mg/dL Total Bilirubin 1.7 H (0.2-1.3) mg/dL AST 664 H D (17-59) U/L ALT 584 H D (21-72) U/L Alkaline Phosphatase 116 (38-126) U/L Total Creatine Kinase (55-170) U/L CK-MB (Mass) (0.0-3.38) ng/mL Troponin I 0.2850 H* (0.00-0.120) ng/mL Total Protein 5.9 L (6.3-8.3) g/dL Albumin 3.0 L (3.5-5.0) g/dL Globulin 2.9 (2.2-3.9) gm/dL Albumin/Globulin Ratio 1.0 (1.0-2.1) Procalcitonin (0.19-0.49) NG/ML Arterial Blood Potassium (3.6-5.2) mmol/L Urine Color (YELLOW) Urine Clarity (Clear) Urine pH (5.0-8.0) Ur Specific [place] (1.003-1.030) Urine Protein (NEGATIVE) mg/dL Urine Glucose (UA) (Normal) mg/dL Urine Ketones (NEGATIVE) mg/dL Urine Blood (NEGATIVE) Urine Nitrate (NEGATIVE) Urine Bilirubin (NEGATIVE) Urine Urobilinogen (0.2-1.0) mg/dL Ur Leukocyte Esterase (Negative) Mehrdad/uL Urine WBC (Auto) (0-5) /hpf Urine RBC (Auto) (0-3) /hpf Ur Squamous Epith Cells (0-5) /hpf Urine Bacteria (<OCC) Hyaline Casts (0-2) /lpf 03/20/18 03/20/18 03/20/18 Range/Units 04:25 00:03 00:03 WBC (4.8-10.8) K/uL RBC (4.40-5.90) Mil/uL Hgb (12.0-18.0) g/dL Hct (35.0-51.0) % MCV (80.0-94.0) fL MCH (27.0-31.0) pg MCHC (33.0-37.0) g/dL RDW (11.5-14.5) % Plt Count (130-400) K/uL MPV (7.2-11.7) fL Neut % (Auto) (50.0-75.0) % Lymph % (Auto) (20.0-40.0) % Brewster % (Auto) (0.0-10.0) % Eos % (Auto) (0.0-4.0) % Baso % (Auto) (0.0-2.0) % Neut # (Auto) (1.8-7.0) K/uL Lymph # (Auto) (1.0-4.3) K/uL Brewster # (Auto) (0.0-0.8) K/uL Eos # (Auto) (0.0-0.7) K/uL Baso # (Auto) (0.0-0.2) K/uL Neutrophils % (Manual) (50-75) % Band Neutrophils % (0-2) % Lymphocytes % (Manual) (20-40) % Monocytes % (Manual) (0-10) % Platelet Estimate (NORMAL) Anisocytosis (manual) Target Cells Puncture Site Rb pCO2 54 H (35-45) mm/Hg pO2 176 H (80-100) mm/Hg HCO3 36.1 H (21-28) mmol/L ABG pH 7.48 H (7.35-7.45) ABG Total CO2 41.9 H (22-28) mmol/L ABG O2 Saturation 99.9 H (95-98) % ABG Base Excess 14.2 H (-2.0-3.0) mmol/L [place] Test Na ABG Potassium 2.3 L* (3.6-5.2) mmol/L A-a O2 Difference 113.0 mm/Hg Respiratory Index 0.6 Glucose 137 H (75-110) mg/dl Lactate 1.2 (0.7-2.1) mmol/L Vent Mode Prvc Mechanical Rate 16 FiO2 50.0 % Tidal Volume 450 PEEP 5 Crit Value Called To Huyen/rn Crit Value Called By Pawel barnes/rt Crit Value Read Back Y Blood Gas Notified Time 500 Sodium 145.0 (132-148) mmol/L Potassium (3.6-5.2) mmol/L Chloride 103.0 (98-107) mmol/L Carbon Dioxide (22-30) mmol/L Anion Gap (10-20) BUN (9-20) mg/dL Creatinine (0.8-1.5) mg/dL Est GFR ( Amer) Est GFR (Non-Af Amer) POC Glucose (mg/dL) 169 H 169 H (65-110) mg/dL Random Glucose (75-110) mg/dL Lactic Acid (0.7-2.1) mmol/L Calcium (8.6-10.4) mg/dl Phosphorus (2.5-4.5) mg/dL Magnesium (1.6-2.3) mg/dL Total Bilirubin (0.2-1.3) mg/dL AST (17-59) U/L ALT (21-72) U/L Alkaline Phosphatase (38-126) U/L Total Creatine Kinase (55-170) U/L CK-MB (Mass) (0.0-3.38) ng/mL Troponin I (0.00-0.120) ng/mL Total Protein (6.3-8.3) g/dL Albumin (3.5-5.0) g/dL Globulin (2.2-3.9) gm/dL Albumin/Globulin Ratio (1.0-2.1) Procalcitonin (0.19-0.49) NG/ML Arterial Blood Potassium 2.3 L* (3.6-5.2) mmol/L Urine Color (YELLOW) Urine Clarity (Clear) Urine pH (5.0-8.0) Ur Specific [place] (1.003-1.030) Urine Protein (NEGATIVE) mg/dL Urine Glucose (UA) (Normal) mg/dL Urine Ketones (NEGATIVE) mg/dL Urine Blood (NEGATIVE) Urine Nitrate (NEGATIVE) Urine Bilirubin (NEGATIVE) Urine Urobilinogen (0.2-1.0) mg/dL Ur Leukocyte Esterase (Negative) Mehrdad/uL Urine WBC (Auto) (0-5) /hpf Urine RBC (Auto) (0-3) /hpf Ur Squamous Epith Cells (0-5) /hpf Urine Bacteria (<OCC) Hyaline Casts (0-2) /lpf 03/19/18 03/19/18 03/19/18 Range/Units 22:22 21:05 19:26 WBC (4.8-10.8) K/uL RBC (4.40-5.90) Mil/uL Hgb (12.0-18.0) g/dL Hct (35.0-51.0) % MCV (80.0-94.0) fL MCH (27.0-31.0) pg MCHC (33.0-37.0) g/dL RDW (11.5-14.5) % Plt Count (130-400) K/uL MPV (7.2-11.7) fL Neut % (Auto) (50.0-75.0) % Lymph % (Auto) (20.0-40.0) % Brewster % (Auto) (0.0-10.0) % Eos % (Auto) (0.0-4.0) % Baso % (Auto) (0.0-2.0) % Neut # (Auto) (1.8-7.0) K/uL Lymph # (Auto) (1.0-4.3) K/uL Brewster # (Auto) (0.0-0.8) K/uL Eos # (Auto) (0.0-0.7) K/uL Baso # (Auto) (0.0-0.2) K/uL Neutrophils % (Manual) (50-75) % Band Neutrophils % (0-2) % Lymphocytes % (Manual) (20-40) % Monocytes % (Manual) (0-10) % Platelet Estimate (NORMAL) Anisocytosis (manual) Target Cells Puncture Site pCO2 (35-45) mm/Hg pO2 (80-100) mm/Hg HCO3 (21-28) mmol/L ABG pH (7.35-7.45) ABG Total CO2 (22-28) mmol/L ABG O2 Saturation (95-98) % ABG Base Excess (-2.0-3.0) mmol/L [place] Test ABG Potassium (3.6-5.2) mmol/L A-a O2 Difference mm/Hg Respiratory Index Glucose (75-110) mg/dl Lactate (0.7-2.1) mmol/L Vent Mode Mechanical Rate FiO2 % Tidal Volume PEEP Crit Value Called To Crit Value Called By Crit Value Read Back Blood Gas Notified Time Sodium (132-148) mmol/L Potassium (3.6-5.2) mmol/L Chloride (98-107) mmol/L Carbon Dioxide (22-30) mmol/L Anion Gap (10-20) BUN (9-20) mg/dL Creatinine (0.8-1.5) mg/dL Est GFR ( Amer) Est GFR (Non-Af Amer) POC Glucose (mg/dL) (65-110) mg/dL Random Glucose (75-110) mg/dL Lactic Acid 1.3 (0.7-2.1) mmol/L Calcium (8.6-10.4) mg/dl Phosphorus (2.5-4.5) mg/dL Magnesium (1.6-2.3) mg/dL Total Bilirubin (0.2-1.3) mg/dL AST (17-59) U/L ALT (21-72) U/L Alkaline Phosphatase (38-126) U/L Total Creatine Kinase 41 L (55-170) U/L CK-MB (Mass) 3.31 (0.0-3.38) ng/mL Troponin I 0.3160 H* (0.00-0.120) ng/mL Total Protein (6.3-8.3) g/dL Albumin (3.5-5.0) g/dL Globulin (2.2-3.9) gm/dL Albumin/Globulin Ratio (1.0-2.1) Procalcitonin (0.19-0.49) NG/ML Arterial Blood Potassium (3.6-5.2) mmol/L Urine Color Yellow (YELLOW) Urine Clarity Hazy (Clear) Urine pH 7.0 (5.0-8.0) Ur Specific [place] 1.012 (1.003-1.030) Urine Protein 2+ H (NEGATIVE) mg/dL Urine Glucose (UA) 1+ H (Normal) mg/dL Urine Ketones Negative (NEGATIVE) mg/dL Urine Blood 1+ H (NEGATIVE) Urine Nitrate Negative (NEGATIVE) Urine Bilirubin Negative (NEGATIVE) Urine Urobilinogen Normal (0.2-1.0) mg/dL Ur Leukocyte Esterase Neg (Negative) Mehrdad/uL Urine WBC (Auto) 5 (0-5) /hpf Urine RBC (Auto) 5 H (0-3) /hpf Ur Squamous Epith Cells < 1 (0-5) /hpf Urine Bacteria Rare (<OCC) Hyaline Casts 3-5 H (0-2) /lpf 03/19/18 03/19/18 03/19/18 Range/Units 18:31 18:00 18:00 WBC (4.8-10.8) K/uL RBC (4.40-5.90) Mil/uL Hgb (12.0-18.0) g/dL Hct (35.0-51.0) % MCV (80.0-94.0) fL MCH (27.0-31.0) pg MCHC (33.0-37.0) g/dL RDW (11.5-14.5) % Plt Count (130-400) K/uL MPV (7.2-11.7) fL Neut % (Auto) (50.0-75.0) % Lymph % (Auto) (20.0-40.0) % Brewster % (Auto) (0.0-10.0) % Eos % (Auto) (0.0-4.0) % Baso % (Auto) (0.0-2.0) % Neut # (Auto) (1.8-7.0) K/uL Lymph # (Auto) (1.0-4.3) K/uL Brewster # (Auto) (0.0-0.8) K/uL Eos # (Auto) (0.0-0.7) K/uL Baso # (Auto) (0.0-0.2) K/uL Neutrophils % (Manual) (50-75) % Band Neutrophils % (0-2) % Lymphocytes % (Manual) (20-40) % Monocytes % (Manual) (0-10) % Platelet Estimate (NORMAL) Anisocytosis (manual) Target Cells Puncture Site Rb pCO2 61 H (35-45) mm/Hg pO2 357 H (80-100) mm/Hg HCO3 33.2 H (21-28) mmol/L ABG pH 7.40 (7.35-7.45) ABG Total CO2 39.7 H (22-28) mmol/L ABG O2 Saturation 99.9 H (95-98) % ABG Base Excess 10.5 H (-2.0-3.0) mmol/L [place] Test Na ABG Potassium 3.5 L (3.6-5.2) mmol/L A-a O2 Difference 280.0 mm/Hg Respiratory Index 0.8 Glucose 258 H (75-110) mg/dl Lactate 4.0 H* (0.7-2.1) mmol/L Vent Mode Prvc Mechanical Rate 16 FiO2 100.0 % Tidal Volume 450 PEEP 5 Crit Value Called To Dr. schwartz Crit Value Called By Waqas loomis Crit Value Read Back Y Blood Gas Notified Time 1833 Sodium 147.0 142 (132-148) mmol/L Potassium 4.1 (3.6-5.2) mmol/L Chloride 109.0 H 97 L (98-107) mmol/L Carbon Dioxide 40 H* (22-30) mmol/L Anion Gap 9 L (10-20) BUN 34 H (9-20) mg/dL Creatinine 0.7 L (0.8-1.5) mg/dL Est GFR ( Amer) > 60 Est GFR (Non-Af Amer) > 60 POC Glucose (mg/dL) (65-110) mg/dL Random Glucose 293 H D (75-110) mg/dL Lactic Acid (0.7-2.1) mmol/L Calcium 8.4 L (8.6-10.4) mg/dl Phosphorus 5.8 H (2.5-4.5) mg/dL Magnesium 2.1 (1.6-2.3) mg/dL Total Bilirubin 1.1 (0.2-1.3) mg/dL AST 1086 H (17-59) U/L ALT 771 H D (21-72) U/L Alkaline Phosphatase 129 H (38-126) U/L Total Creatine Kinase (55-170) U/L CK-MB (Mass) (0.0-3.38) ng/mL Troponin I (0.00-0.120) ng/mL Total Protein 6.1 L (6.3-8.3) g/dL Albumin 3.2 L (3.5-5.0) g/dL Globulin 2.9 (2.2-3.9) gm/dL Albumin/Globulin Ratio 1.1 (1.0-2.1) Procalcitonin 0.12 L (0.19-0.49) NG/ML Arterial Blood Potassium 3.5 L (3.6-5.2) mmol/L Urine Color (YELLOW) Urine Clarity (Clear) Urine pH (5.0-8.0) Ur Specific [place] (1.003-1.030) Urine Protein (NEGATIVE) mg/dL Urine Glucose (UA) (Normal) mg/dL Urine Ketones (NEGATIVE) mg/dL Urine Blood (NEGATIVE) Urine Nitrate (NEGATIVE) Urine Bilirubin (NEGATIVE) Urine Urobilinogen (0.2-1.0) mg/dL Ur Leukocyte Esterase (Negative) Mehrdad/uL Urine WBC (Auto) (0-5) /hpf Urine RBC (Auto) (0-3) /hpf Ur Squamous Epith Cells (0-5) /hpf Urine Bacteria (<OCC) Hyaline Casts (0-2) /lpf 03/19/18 Range/Units 18:00 WBC 26.9 H (4.8-10.8) K/uL RBC 3.47 L (4.40-5.90) Mil/uL Hgb 10.2 L (12.0-18.0) g/dL Hct 32.7 L (35.0-51.0) % MCV 94.2 H D (80.0-94.0) fL MCH 29.4 (27.0-31.0) pg MCHC 31.2 L (33.0-37.0) g/dL RDW 17.2 H (11.5-14.5) % Plt Count 425 H (130-400) K/uL MPV 8.0 (7.2-11.7) fL Neut % (Auto) 97.5 H (50.0-75.0) % Lymph % (Auto) 0.4 L (20.0-40.0) % [place] % (Auto) 1.5 (0.0-10.0) % Eos % (Auto) 0.0 (0.0-4.0) % Baso % (Auto) 0.6 (0.0-2.0) % Neut # (Auto) 26.2 H (1.8-7.0) K/uL Lymph # (Auto) 0.1 L (1.0-4.3) K/uL Brewster # (Auto) 0.4 (0.0-0.8) K/uL Eos # (Auto) 0.0 (0.0-0.7) K/uL Baso # (Auto) 0.2 (0.0-0.2) K/uL Neutrophils % (Manual) 96 H (50-75) % Band Neutrophils % 2 (0-2) % Lymphocytes % (Manual) 1 L (20-40) % Monocytes % (Manual) 1 (0-10) % Platelet Estimate Increased H (NORMAL) Anisocytosis (manual) Target Cells Puncture Site pCO2 (35-45) mm/Hg pO2 (80-100) mm/Hg HCO3 (21-28) mmol/L ABG pH (7.35-7.45) ABG Total CO2 (22-28) mmol/L ABG O2 Saturation (95-98) % ABG Base Excess (-2.0-3.0) mmol/L [place] Test ABG Potassium (3.6-5.2) mmol/L A-a O2 Difference mm/Hg Respiratory Index Glucose (75-110) mg/dl Lactate (0.7-2.1) mmol/L Vent Mode Mechanical Rate FiO2 % Tidal Volume PEEP Crit Value Called To Crit Value Called By Crit Value Read Back Blood Gas Notified Time Sodium (132-148) mmol/L Potassium (3.6-5.2) mmol/L Chloride (98-107) mmol/L Carbon Dioxide (22-30) mmol/L Anion Gap (10-20) BUN (9-20) mg/dL Creatinine (0.8-1.5) mg/dL Est GFR ( Amer) Est GFR (Non-Af Amer) POC Glucose (mg/dL) (65-110) mg/dL Random Glucose (75-110) mg/dL Lactic Acid (0.7-2.1) mmol/L Calcium (8.6-10.4) mg/dl Phosphorus (2.5-4.5) mg/dL Magnesium (1.6-2.3) mg/dL Total Bilirubin (0.2-1.3) mg/dL AST (17-59) U/L ALT (21-72) U/L Alkaline Phosphatase (38-126) U/L Total Creatine Kinase (55-170) U/L CK-MB (Mass) (0.0-3.38) ng/mL Troponin I (0.00-0.120) ng/mL Total Protein (6.3-8.3) g/dL Albumin (3.5-5.0) g/dL Globulin (2.2-3.9) gm/dL Albumin/Globulin Ratio (1.0-2.1) Procalcitonin (0.19-0.49) NG/ML Arterial Blood Potassium (3.6-5.2) mmol/L Urine Color (YELLOW) Urine Clarity (Clear) Urine pH (5.0-8.0) Ur Specific [place] (1.003-1.030) Urine Protein (NEGATIVE) mg/dL Urine Glucose (UA) (Normal) mg/dL Urine Ketones (NEGATIVE) mg/dL Urine Blood (NEGATIVE) Urine Nitrate (NEGATIVE) Urine Bilirubin (NEGATIVE) Urine Urobilinogen (0.2-1.0) mg/dL Ur Leukocyte Esterase (Negative) Mehrdad/uL Urine WBC (Auto) (0-5) /hpf Urine RBC (Auto) (0-3) /hpf Ur Squamous Epith Cells (0-5) /hpf Urine Bacteria (<OCC) Hyaline Casts (0-2) /lpf Laboratory Results - last 24 hr 03/19/18 03/19/18 03/19/18 18:00 18:00 18:00 WBC 26.9 H RBC 3.47 L Hgb 10.2 L Hct 32.7 L MCV 94.2 H D MCH 29.4 MCHC 31.2 L RDW 17.2 H Plt Count 425 H MPV 8.0 Neut % (Auto) 97.5 H Lymph % (Auto) 0.4 L Brewster % (Auto) 1.5 Eos % (Auto) 0.0 Baso % (Auto) 0.6 Neut # (Auto) 26.2 H Lymph # (Auto) 0.1 L Brewster # (Auto) 0.4 Eos # (Auto) 0.0 Baso # (Auto) 0.2 Neutrophils % (Manual) 96 H Band Neutrophils % 2 Lymphocytes % (Manual) 1 L Monocytes % (Manual) 1 Platelet Estimate Increased H Anisocytosis (manual) Target Cells Puncture Site pCO2 pO2 HCO3 ABG pH ABG Total CO2 ABG O2 Saturation ABG Base Excess [place] Test ABG Potassium A-a O2 Difference Respiratory Index Glucose Lactate Vent Mode Mechanical Rate FiO2 Tidal Volume PEEP Crit Value Called To Crit Value Called By Crit Value Read Back Blood Gas Notified Time Sodium 142 Potassium 4.1 Chloride 97 L Carbon Dioxide 40 H* Anion Gap 9 L BUN 34 H Creatinine 0.7 L Est GFR ( Amer) > 60 Est GFR (Non-Af Amer) > 60 POC Glucose (mg/dL) Random Glucose 293 H D Lactic Acid Calcium 8.4 L Phosphorus 5.8 H Magnesium 2.1 Total Bilirubin 1.1 AST 1086 H ALT 771 H D Alkaline Phosphatase 129 H Total Creatine Kinase CK-MB (Mass) Troponin I Total Protein 6.1 L Albumin 3.2 L Globulin 2.9 Albumin/Globulin Ratio 1.1 Procalcitonin 0.12 L Arterial Blood Potassium Urine Color Urine Clarity Urine pH Ur Specific [place] Urine Protein Urine Glucose (UA) Urine Ketones Urine Blood Urine Nitrate Urine Bilirubin Urine Urobilinogen Ur Leukocyte Esterase Urine WBC (Auto) Urine RBC (Auto) Ur Squamous Epith Cells Urine Bacteria Hyaline Casts 03/19/18 03/19/18 03/19/18 18:31 19:26 21:05 WBC RBC Hgb Hct MCV MCH MCHC RDW Plt Count MPV Neut % (Auto) Lymph % (Auto) [place] % (Auto) Eos % (Auto) Baso % (Auto) Neut # (Auto) Lymph # (Auto) [place] # (Auto) Eos # (Auto) Baso # (Auto) Neutrophils % (Manual) Band Neutrophils % Lymphocytes % (Manual) Monocytes % (Manual) Platelet Estimate Anisocytosis (manual) Target Cells Puncture Site Rb pCO2 61 H pO2 357 H HCO3 33.2 H ABG pH 7.40 ABG Total CO2 39.7 H ABG O2 Saturation 99.9 H ABG Base Excess 10.5 H [place]re[place] Test Na ABG Potassium 3.5 L A-a O2 Difference 280.0 Respiratory Index 0.8 Glucose 258 H Lactate 4.0 H* Vent Mode Prvc Mechanical Rate 16 FiO2 100.0 Tidal Volume 450 PEEP 5 Crit Value Called To Dr. schwartz Crit Value Called By Waqas loomis Crit Value Read Back Y Blood Gas Notified Time 1834 Sodium 147.0 Potassium Chloride 109.0 H Carbon Dioxide Anion Gap BUN Creatinine Est GFR ( Amer) Est GFR (Non-Af Amer) POC Glucose (mg/dL) Random Glucose Lactic Acid Calcium Phosphorus Magnesium Total Bilirubin AST ALT Alkaline Phosphatase Total Creatine Kinase 41 L CK-MB (Mass) 3.31 Troponin I 0.3160 H* Total Protein Albumin Globulin Albumin/Globulin Ratio Procalcitonin Arterial Blood Potassium 3.5 L Urine Color Yellow Urine Clarity Hazy Urine pH 7.0 Ur Specific [place] 1.012 Urine Protein 2+ H Urine Glucose (UA) 1+ H Urine Ketones Negative Urine Blood 1+ H Urine Nitrate Negative Urine Bilirubin Negative Urine Urobilinogen Normal Ur Leukocyte Esterase Neg Urine WBC (Auto) 5 Urine RBC (Auto) 5 H Ur Squamous Epith Cells < 1 Urine Bacteria Rare Hyaline Casts 3-5 H 03/19/18 03/20/18 03/20/18 22:22 00:03 00:03 WBC RBC Hgb Hct MCV MCH MCHC RDW Plt Count MPV Neut % (Auto) Lymph % (Auto) Brew[place] % (Auto) Eos % (Auto) Baso % (Auto) Neut # (Auto) Lymph # (Auto) [place] # (Auto) Eos # (Auto) Baso # (Auto) Neutrophils % (Manual) Band Neutrophils % Lymphocytes % (Manual) Monocytes % (Manual) Platelet Estimate Anisocytosis (manual) Target Cells Puncture Site pCO2 pO2 HCO3 ABG pH ABG Total CO2 ABG O2 Saturation ABG Base Excess Bereket Test ABG Potassium A-a O2 Difference Respiratory Index Glucose Lactate Vent Mode Mechanical Rate FiO2 Tidal Volume PEEP Crit Value Called To Crit Value Called By Crit Value Read Back Blood Gas Notified Time Sodium Potassium Chloride Carbon Dioxide Anion Gap BUN Creatinine Est GFR ( Amer) Est GFR (Non-Af Amer) POC Glucose (mg/dL) 169 H 169 H Random Glucose Lactic Acid 1.3 Calcium Phosphorus Magnesium Total Bilirubin AST ALT Alkaline Phosphatase Total Creatine Kinase CK-MB (Mass) Troponin I Total Protein Albumin Globulin Albumin/Globulin Ratio Procalcitonin Arterial Blood Potassium Urine Color Urine Clarity Urine pH Ur Specific [place] Urine Protein Urine Glucose (UA) Urine Ketones Urine Blood Urine Nitrate Urine Bilirubin Urine Urobilinogen Ur Leukocyte Esterase Urine WBC (Auto) Urine RBC (Auto) Ur Squamous Epith Cells Urine Bacteria Hyaline Casts 03/20/18 03/20/18 03/20/18 04:25 05:50 06:26 WBC 33.9 H RBC 3.34 L Hgb 10.1 L Hct 31.2 L MCV 93.4 MCH 30.1 MCHC 32.2 L RDW 16.9 H Plt Count 279 D MPV 8.4 Neut % (Auto) 98.5 H Lymph % (Auto) 0.7 L Brewster % (Auto) 0.7 Eos % (Auto) 0.0 Baso % (Auto) 0.1 Neut # (Auto) 33.4 H Lymph # (Auto) 0.2 L Brewster # (Auto) 0.2 Eos # (Auto) 0.0 Baso # (Auto) 0.0 Neutrophils % (Manual) 91 H Band Neutrophils % 8 H Lymphocytes % (Manual) 1 L Monocytes % (Manual) TEST NOT PERFORMED Platelet Estimate Normal Anisocytosis (manual) Slight Target Cells Slight Puncture Site Rb pCO2 54 H pO2 176 H HCO3 36.1 H ABG pH 7.48 H ABG Total CO2 41.9 H ABG O2 Saturation 99.9 H ABG Base Excess 14.2 H Bereket Test Na ABG Potassium 2.3 L* A-a O2 Difference 113.0 Respiratory Index 0.6 Glucose 137 H Lactate 1.2 Vent Mode Prvc Mechanical Rate 16 FiO2 50.0 Tidal Volume 450 PEEP 5 Crit Value Called To Huyen/rn Crit Value Called By Pawel barnes/rt Crit Value Read Back Y Blood Gas Notified Time 500 Sodium 145.0 Potassium Chloride 103.0 Carbon Dioxide Anion Gap BUN Creatinine Est GFR ( Amer) Est GFR (Non-Af Amer) POC Glucose (mg/dL) 160 H Random Glucose Lactic Acid Calcium Phosphorus Magnesium Total Bilirubin AST ALT Alkaline Phosphatase Total Creatine Kinase CK-MB (Mass) Troponin I Total Protein Albumin Globulin Albumin/Globulin Ratio Procalcitonin Arterial Blood Potassium 2.3 L* Urine Color Urine Clarity Urine pH Ur Specific [place] Urine Protein Urine Glucose (UA) Urine Ketones Urine Blood Urine Nitrate Urine Bilirubin Urine Urobilinogen Ur Leukocyte Esterase Urine WBC (Auto) Urine RBC (Auto) Ur Squamous Epith Cells Urine Bacteria Hyaline Casts 03/20/18 03/20/18 03/20/18 06:26 10:51 11:20 WBC RBC Hgb Hct MCV MCH MCHC RDW Plt Count MPV Neut % (Auto) Lymph % (Auto) [place] % (Auto) Eos % (Auto) Baso % (Auto) Neut # (Auto) Lymph # (Auto) [place] # (Auto) Eos # (Auto) Baso # (Auto) Neutrophils % (Manual) Band Neutrophils % Lymphocytes % (Manual) Monocytes % (Manual) Platelet Estimate Anisocytosis (manual) Target Cells Puncture Site pCO2 pO2 HCO3 ABG pH ABG Total CO2 ABG O2 Saturation ABG Base Excess Bereket Test ABG Potassium A-a O2 Difference Respiratory Index Glucose Lactate Vent Mode Mechanical Rate FiO2 Tidal Volume PEEP Crit Value Called To Crit Value Called By Crit Value Read Back Blood Gas Notified Time Sodium 142 Potassium 2.3 L* D Chloride 98 Carbon Dioxide 40 H* Anion Gap 6 L BUN 23 H Creatinine 0.3 L Est GFR ( Amer) > 60 Est GFR (Non-Af Amer) > 60 POC Glucose (mg/dL) 205 H Random Glucose 133 H D Lactic Acid Calcium 7.6 L Phosphorus 2.2 L Magnesium 1.4 L Total Bilirubin 1.7 H AST 664 H D ALT 584 H D Alkaline Phosphatase 116 Total Creatine Kinase CK-MB (Mass) Troponin I 0.2850 H* 0.1900 H* Total Protein 5.9 L Albumin 3.0 L Globulin 2.9 Albumin/Globulin Ratio 1.0 Procalcitonin Arterial Blood Potassium Urine Color Urine Clarity Urine pH Ur Specific [place] Urine Protein Urine Glucose (UA) Urine Ketones Urine Blood Urine Nitrate Urine Bilirubin Urine Urobilinogen Ur Leukocyte Esterase Urine WBC (Auto) Urine RBC (Auto) Ur Squamous Epith Cells Urine Bacteria Hyaline Casts 03/20/18 15:49 WBC RBC Hgb Hct MCV MCH MCHC RDW Plt Count MPV Neut % (Auto) Lymph % (Auto) [place] % (Auto) Eos % (Auto) Baso % (Auto) Neut # (Auto) Lymph # (Auto) [place] # (Auto) Eos # (Auto) Baso # (Auto) Neutrophils % (Manual) Band Neutrophils % Lymphocytes % (Manual) Monocytes % (Manual) Platelet Estimate Anisocytosis (manual) Target Cells Puncture Site pCO2 pO2 HCO3 ABG pH ABG Total CO2 ABG O2 Saturation ABG Base Excess Bereket Test ABG Potassium A-a O2 Difference Respiratory Index Glucose Lactate Vent Mode Mechanical Rate FiO2 Tidal Volume PEEP Crit Value Called To Crit Value Called By Crit Value Read Back Blood Gas Notified Time Sodium 141 Potassium 3.7 Chloride 100 Carbon Dioxide 40 H* Anion Gap 5 L BUN 16 Creatinine 0.4 L Est GFR ( Amer) > 60 Est GFR (Non-Af Amer) > 60 POC Glucose (mg/dL) Random Glucose 154 H Lactic Acid Calcium 7.7 L Phosphorus 2.9 Magnesium 1.7 Total Bilirubin 2.2 H AST 341 H D ALT 466 H D Alkaline Phosphatase 104 Total Creatine Kinase CK-MB (Mass) Troponin I Total Protein 5.9 L Albumin 2.9 L Globulin 2.9 Albumin/Globulin Ratio 1.0 Procalcitonin Arterial Blood Potassium Urine Color Urine Clarity Urine pH Ur Specific [place] Urine Protein Urine Glucose (UA) Urine Ketones Urine Blood Urine Nitrate Urine Bilirubin Urine Urobilinogen Ur Leukocyte Esterase Urine WBC (Auto) Urine RBC (Auto) Ur Squamous Epith Cells Urine Bacteria Hyaline Casts Radiology Impressions: Radiology Impressions Chest X-Ray 03/19/18 16:53 IMPRESSION: Improved aeration left mid inferior lung zones with significant residual infiltrate remaining. Trace atelectasis is favored over infiltrate right base. ET tube in good apparent position. External pacemaker identified. Chest X-Ray 03/19/18 17:41 IMPRESSION: Support lines and tubes as above. Hypoinflation. Interstitial thickening may reflect infection or edema, left greater than right. Biapical pleural thickening extends further laterally on the right. Small bilateral pleural effusions. Cardiomegaly. Chest X-Ray 03/20/18 07:00 IMPRESSION: Support lines and tubes as above. Cardiomegaly. Interstitial thickening/edema appear stable. Increasing consolidations within the left hemithorax. Biapical pleural thickening. Probable small bilateral pleural effusions. Critical Care Progress Note - Nutrition Nutrition: Nutrition Category Date Time Status Pureed [Dysphagia/Modified Consistency Diet] [DIET] Diets 03/12/18 Breakfast Active Attending/Attestation - Attestation I have personally seen and examined this patient.: Yes I have fully participated in the care of the patient.: Yes I have reviewed all pertinent clinical information: Yes Notes (Text): 03/20/18 18:10 Today: March The Patient was seen and examined at the bedside, Medical records reviewed, and management issues were discussed and formulated with the house staff. I have reviewed all the relevant clinical, laboratory, hemodynamic, radiographic data and medications Events reviewed Pain issues, skin care, head of the bed elevation, glycemic control were addressed. Agree with above resident's assessment and treatment plans of care as transcribed in Dr. Farias's note.
[2018-03-20] MEDS ORDERED: Sodium Chloride 0.9% 250 ML IV ONE (11:30)
--- NOTE | 2018-03-20 11:45 | RAD ---
HISTORY: intubated COMPARISON: Chest x-ray performed 03/19/18 TECHNIQUE: Chest, one view. FINDINGS: Endotracheal tube terminates approximately 4.3 cm above the mandie. Nasogastric tube extends expected location of the stomach. Right-sided central venous catheter extends to the SVC. Two external defibrillator pads are evident. Numerous external wires and leads obscure evaluation of the underlying parenchyma. LUNGS: Interstitial thickening/edema appear stable. Increasing consolidations within the left hemithorax. Biapical pleural thickening. Probable small bilateral pleural effusions. No definite pneumothorax. CARDIOVASCULAR: Cardiomegaly. OSSEOUS STRUCTURES: Degenerative changes. Metallic plate and screw fixation of the right proximal humerus. VISUALIZED UPPER ABDOMEN: Unremarkable. OTHER FINDINGS: None. IMPRESSION: Support lines and tubes as above. Cardiomegaly. Interstitial thickening/edema appear stable. Increasing consolidations within the left hemithorax. Biapical pleural thickening. Probable small bilateral pleural effusions.
--- NOTE | 2018-03-20 14:17 | CP.PCM.PN ---
Subjective - Date & Time of Evaluation Date of Evaluation: 03/20/18 Time of Evaluation: 14:14 - Subjective Subjective: Last evening patient got desaturated on the floor and required intubation and currently patient is on vent in ICU. Patient opens eyes on command but appears confused. Physical examination patient is intubated lungs shows bilateral rhonchi is an heart S1-S2 normal rest of the physical findings normal Liver enzymes and cardiac enzymes are elevated Continue ICU protocol for vent and IV antibiotics. Objective - Vital Signs/Intake and Output Vital Signs (last 24 hours): Temp Pulse Resp BP Pulse Ox 98.5 F 95 H 16 122/71 100 03/20/18 12:00 03/20/18 14:00 03/20/18 14:00 03/20/18 13:56 03/20/18 14:00 Intake and Output: 03/20/18 03/20/18 11:59 23:59 Intake Total 2756.5 781.5 Output Total 1620 530 Balance 1136.5 251.5 - Medications Medications: Current Medications Albuterol/Ipratropium (Duoneb 3 Mg/0.5 Mg (3 Ml) Ud) 3 ml INH RQ6 [facility] Last Admin: 03/20/18 07:40 Dose: 3 ml Diltiazem HCl (Cardizem Cd) 240 mg PO DAILY [facility] Last Admin: 03/18/18 09:32 Dose: Not Given Enoxaparin Sodium (Lovenox) 30 mg SC DAILY [facility] Last Admin: 03/20/18 10:01 Dose: 30 mg Fludrocortisone Acetate (Florinef) 0.1 mg PO DAILY [facility] Last Admin: 03/20/18 10:20 Dose: 0.1 mg Micafungin Sodium 100 mg/ (Sodium Chloride) 100 mls @ 100 mls/hr IV Q24H [facility]; Protocol Last Admin: 03/20/18 01:00 Dose: 100 mls/hr Meropenem 500 mg/ Sodium (Chloride) 100 mls @ 100 mls/hr IVPB Q8H [facility]; Protocol Last Admin: 03/20/18 09:30 Dose: 100 mls/hr Norepinephrine Bitartrate 4 mg (/ Sodium Chloride) 254 mls @ 15.24 mls/hr IV .[id number] PRN; Protocol PRN Reason: TITRATE PER MD ORDER Last Titration: 03/20/18 14:03 Dose: 7 mcg/min, 26.67 mls/hr Methylprednisolone (Solu-Medrol) 40 mg IVP Q12 [facility] Last Admin: 03/20/18 09:59 Dose: 40 mg Pantoprazole Sodium (Protonix Inj) 40 mg IVP DAILY [facility] Last Admin: 03/20/18 10:00 Dose: 40 mg - Labs Labs: 03/20/18 06:26 03/20/18 06:26
--- NOTE | 2018-03-20 14:39 | CP.PCM.PN ---
Subjective - Date & Time of Evaluation Date of Evaluation: 03/20/18 Time of Evaluation: 14:39 - Subjective Subjective: AFEBRILE. INTUBATED ,SEDATED ON PRESSORS ON NGT FEEDINGS. ROS : NA. LABS NOTED: WBC 33.9 H/H 10.1/31.2 K 2.3 CREAT 0.3/BUN 23 LFTS ; IMPROVING +VE TROPINONS URINE CULTURE 03/19/18 -VE GROWTH. BLOOD CULURES 2:2 SETS 04/08/18 -VE TO DATE Objective - Vital Signs/Intake and Output Vital Signs (last 24 hours): Temp Pulse Resp BP Pulse Ox 98.5 F 95 H 16 122/71 100 03/20/18 12:00 03/20/18 14:00 03/20/18 14:00 03/20/18 13:56 03/20/18 14:00 Intake and Output: 03/20/18 03/20/18 06:59 18:59 Intake Total 2687.1 2039.0 Output Total 1560 1180 Balance 1127.1 859.0 - Medications Medications: Current Medications Albuterol/Ipratropium (Duoneb 3 Mg/0.5 Mg (3 Ml) Ud) 3 ml INH RQ6 [facility] Last Admin: 03/20/18 07:40 Dose: 3 ml Diltiazem HCl (Cardizem Cd) 240 mg PO DAILY [facility] Last Admin: 03/18/18 09:32 Dose: Not Given Enoxaparin Sodium (Lovenox) 30 mg SC DAILY [facility] Last Admin: 03/20/18 10:01 Dose: 30 mg Fludrocortisone Acetate (Florinef) 0.1 mg PO DAILY [facility] Last Admin: 03/20/18 10:20 Dose: 0.1 mg Micafungin Sodium 100 mg/ (Sodium Chloride) 100 mls @ 100 mls/hr IV Q24H [facility]; Protocol Last Admin: 03/20/18 01:00 Dose: 100 mls/hr Meropenem 500 mg/ Sodium (Chloride) 100 mls @ 100 mls/hr IVPB Q8H [facility]; Protocol Last Admin: 03/20/18 09:30 Dose: 100 mls/hr Norepinephrine Bitartrate 4 mg (/ Sodium Chloride) 254 mls @ 15.24 mls/hr IV .[id number] PRN; Protocol PRN Reason: TITRATE PER MD ORDER Last Titration: 03/20/18 14:03 Dose: 7 mcg/min, 26.67 mls/hr Methylprednisolone (Solu-Medrol) 40 mg IVP Q12 [facility] Last Admin: 03/20/18 09:59 Dose: 40 mg Pantoprazole Sodium (Protonix Inj) 40 mg IVP DAILY [facility] Last Admin: 03/20/18 10:00 Dose: 40 mg - Labs Labs: 03/20/18 06:26 03/20/18 06:26 - Constitutional Appears: No Acute Distress, Cachectic, Chronically Ill (iNTUBATED.) - Head Exam Head Exam: NORMAL INSPECTION - Eye Exam Eye Exam: PERRL - ENT Exam ENT Exam: Mucous Membranes Dry - Neck Exam Neck Exam: Normal Inspection - Respiratory Exam Respiratory Exam: Decreased Breath Sounds, Prolonged Expiratory Phase - Cardiovascular Exam Cardiovascular Exam: Tachycardia, REGULAR RHYTHM, +S1, +S2 - GI/Abdominal Exam GI & Abdominal Exam: Soft, Normal Bowel Sounds. absent: Organomegaly - Extremities Exam Extremities Exam: absent: Calf Tenderness, Pedal Edema - Neurological Exam Neurological Exam: Altered (SEDATED ON VENTILATOR.) - Psychiatric Exam Additional comments: INTUBATED - Skin Skin Exam: Pallor, Warm - Additional Findings Additional findings: CHEST X-RAY03/20/18. iNCREASING CONSOLIDATION WITHIN THE LEFT HEMITHORAX. sMALL BILATERAL EFFUSIONS. bIAPICAL PLEURAL THICKENING. Assessment and Plan (1) Sepsis associated hypotension Status: Acute (2) Respiratory failure requiring intubation Status: Acute (3) Altered mental status Status: Acute (4) Pneumonia Status: Acute (5) Abdominal pain Status: Acute (6) Cholelithiases Status: Acute - Assessment and Plan (Free Text) Plan: CONTINUE IV MERREM 500MG IVPB Q8HRLY 03/04/18 CONTINUE IV MYCAFUNGIN 100MG IV PB Q 24 HRLY 03/04/18. VANCOMYCIN 1GM IVPB X1 DOSE STAT AFTER BLOOD CULTURES 03/20/18 TRACHEAL ASPIRATE FOR CULTURE.-P F/U CULTURES TO ADJUST ABX. VANCO RANDOM LEVEL STAT AND NOTIFY. F/U LFTS IN AM PER PTS FAMILY , PT FULL CODE. PULMONARY TOILET.
[2018-03-20 16:10] LABS: ALBUMIN 2.9 g/dL (3.5-5.0); ALT/SGPT 466 U/L (21-72); AST/SGOT 341 U/L (17-59); BLOOD UREA NITROGEN 16 mg/dL (9-20); CALCIUM 7.7 mg/dl (8.6-10.4); GFR NON-AFRICAN AMERICAN > 60
--- NOTE | 2018-03-20 17:59 | CP.PCM.PCO ---
Physician Communication Note - Physician Communication Note Physician Communication Note: Elly Soto
--- NOTE | 2018-03-20 18:46 | CP.PCM.PN ---
Subjective - Date & Time of Evaluation Date of Evaluation: 03/20/18 Time of Evaluation: 18:42 - Subjective Subjective: PT INTUBATED. ROS; UNOBTAINABLE Objective - Vital Signs/Intake and Output Vital Signs (last 24 hours): Temp Pulse Resp BP Pulse Ox 99.0 F 95 H 17 114/69 100 03/20/18 16:00 03/20/18 18:00 03/20/18 18:00 03/20/18 17:56 03/20/18 18:00 Intake and Output: 03/20/18 03/20/18 06:59 18:59 Intake Total 2687.1 2722.3 Output Total 1560 1670 Balance 1127.1 1052.3 - Medications Medications: Current Medications Albuterol/Ipratropium (Duoneb 3 Mg/0.5 Mg (3 Ml) Ud) 3 ml INH RQ6 [facility] Last Admin: 03/20/18 07:40 Dose: 3 ml Diltiazem HCl (Cardizem Cd) 240 mg PO DAILY [facility] Last Admin: 03/18/18 09:32 Dose: Not Given Enoxaparin Sodium (Lovenox) 30 mg SC DAILY [facility] Last Admin: 03/20/18 10:01 Dose: 30 mg Fludrocortisone Acetate (Florinef) 0.1 mg PO DAILY [facility] Last Admin: 03/20/18 10:20 Dose: 0.1 mg Micafungin Sodium 100 mg/ (Sodium Chloride) 100 mls @ 100 mls/hr IV Q24H [facility]; Protocol Last Admin: 03/20/18 01:00 Dose: 100 mls/hr Meropenem 500 mg/ Sodium (Chloride) 100 mls @ 100 mls/hr IVPB Q8H [facility]; Protocol Last Admin: 03/20/18 16:26 Dose: 100 mls/hr Norepinephrine Bitartrate 4 mg (/ Sodium Chloride) 254 mls @ 15.24 mls/hr IV .[id number] PRN; Protocol PRN Reason: TITRATE PER MD ORDER Last Titration: 03/20/18 16:15 Dose: 4 mcg/min, 15.24 mls/hr Sodium Chloride (Sodium Chloride 0.9%) 1,000 mls @ 100 mls/hr IV .Q10H [facility] Last Admin: 03/20/18 15:20 Dose: 100 mls/hr Methylprednisolone (Solu-Medrol) 40 mg IVP Q12 [facility] Last Admin: 03/20/18 09:59 Dose: 40 mg Pantoprazole Sodium (Protonix Inj) 40 mg IVP DAILY [facility] Last Admin: 03/20/18 10:00 Dose: 40 mg - Labs Labs: 03/20/18 06:26 03/20/18 15:49 - Constitutional Appears: Cachectic, Chronically Ill - Head Exam Head Exam: ATRAUMATIC, NORMOCEPHALIC - Eye Exam Eye Exam: Normal appearance - ENT Exam Additional comments: ORAL ETT+ - Neck Exam Neck Exam: Normal Inspection - Respiratory Exam Respiratory Exam: Rhonchi - Cardiovascular Exam Cardiovascular Exam: RRR, +S1, +S2 - GI/Abdominal Exam GI & Abdominal Exam: Soft - Rectal Exam Rectal Exam: Deferred - Extremities Exam Extremities Exam: Calf Tenderness. absent: Pedal Edema - Neurological Exam Additional comments: UNRESPONSIVE - Skin Skin Exam: absent: Rash Assessment and Plan (1) Septic shock Status: Acute (2) Altered mental status Status: Acute (3) Pneumonia Status: Acute (4) Respiratory failure requiring intubation Status: Acute (5) COPD exacerbation Status: Acute (6) Cachexia Status: Acute (7) Cholelithiases Status: Acute (8) Alzheimer disease Status: Chronic - Assessment and Plan (Free Text) Assessment: ON IV LEVO TAPER 4UG NOW. CONT AC SUPPORT, TAPER FIO2, ABG NOTED. CONT PULM TOILET., NEB BD., AFEBRILE ON AB. CXR REVIEWED. CONT FEEDINGS, SUPP K. MONITOR H/H. PROG GRAVE. DISCUSSED WITH STAFF AT LENGTH AND FAMILY. TIME SPENT 1HR.
[2018-03-21] MEDS: Micafungin 100 MG in Sodium Chloride 0.9% 100 ML IV SCH (00:32)
[2018-03-21] MEDS: Albuterol-Ipratrop 3 mg / 0.5 (3 ml) UD INH SCH ×3 (01:18→19:59)
[2018-03-21] MEDS: Meropenem 500 MG in Sodium Chloride 0.9% 100 ML IVPB SCH ×3 (02:13→16:33)
[2018-03-21] MEDS: Sodium Chloride 0.9% 1,000 ML IV SCH ×5 (02:41→21:25)
[2018-03-21 04:28] LABS: ARTERIAL BLOOD GAS HCO3 35.4 mmol/L (21-28); ARTERIAL BLOOD GAS O2 SAT 99.7 % (95-98); ARTERIAL BLOOD GAS PCO2 48 mm/Hg (35-45); ARTERIAL BLOOD GAS PH 7.51 (7.35-7.45); ARTERIAL BLOOD GAS PO2 131 mm/Hg (80-100); ARTERIAL BLOOD GAS TCO2 39.8 mmol/L (22-28)
[2018-03-21 07:34] LABS: BASO % 0.1 % (0.0-2.0); LYMPH # 0.2 K/uL (1.0-4.3); LYMPH % 0.9 % (20.0-40.0); MEAN CELL VOLUME 91.9 fL (80.0-94.0); MEAN CORPUSCULAR HEMOGLOBIN 29.7 pg (27.0-31.0); MEAN CORPUSCULAR HGB CONC 32.3 g/dL (33.0-37.0); MEAN PLATELET VOLUME 8.9 fL (7.2-11.7); MONO # 0.3 K/uL (0.0-0.8); MONO % 1.5 % (0.0-10.0); NEUT # 21.7 K/uL (1.8-7.0); NEUT % 97.5 % (50.0-75.0); NRBC % 0.1 % (0.0-2.0); PLATELET COUNT 197 K/uL (130-400); RBC 3.03 Mil/uL (4.40-5.90); RED CELL DISTRIBUTION WIDTH 17.1 % (11.5-14.5); WHITE BLOOD COUNT 22.3 K/uL (4.8-10.8)
[2018-03-21 08:15] LABS: ALBUMIN 2.7 g/dL (3.5-5.0); ALT/SGPT 308 U/L (21-72); AST/SGOT 123 U/L (17-59); BLOOD UREA NITROGEN 18 mg/dL (9-20); CALCIUM 7.7 mg/dl (8.6-10.4); GFR NON-AFRICAN AMERICAN > 60
--- NOTE | 2018-03-21 08:33 | RAD ---
Date of service: 03/21/2018 HISTORY: intubated COMPARISON: 03/20/2018 FINDINGS: Endotracheal tube terminates in the mid trachea. The right subclavian line terminates in the SVC. The nasogastric tube terminates in the stomach. LUNGS: There is redemonstration of diffuse interstitial thickening in the lungs and persistent diffuse haziness in the left lung. No focal consolidation. PLEURA: Suspect small effusions. Redemonstration of asymmetric pleural thickening in the right mid thorax. No pleural effusions or pneumothorax. CARDIOVASCULAR: Persistent mild cardiomegaly. No aortic atherosclerotic calcification present. OSSEOUS STRUCTURES: Within normal limits for the patient's age. VISUALIZED UPPER ABDOMEN: Normal. OTHER FINDINGS: None. IMPRESSION: Little interval change in diffuse interstitial pulmonary disease. No focal consolidation. Diffuse haziness in the left lung could represent layering pleural effusion or alveolar pulmonary edema. Suspect small pleural effusions.
[2018-03-21 08:51] LABS: BANDS 2 % (0-2); MONOCYTE 2 % (0-10); NEUTROPHIL 96 % (50-75); PLATELET ESTIMATE NORMAL (NORMAL); TOTAL CELLS COUNTED 100
[2018-03-21 08:52] LABS: ANISOCYTOSIS SLIGHT; HYPOCHROMIC SLIGHT; LARGE PLATELETS PRESENT; POIKILOCYTOSIS SLIGHT
[2018-03-21] MEDS ORDERED: Magnesium Sulfate 1 gm in D5W 1 GM/100 ML BAG IVPB ONE (09:00)
[2018-03-21] MEDS ORDERED: Potassium Phosphate 15 MMOLE in Sodium Chloride 0.9% 250 ML IVPB ONE (09:30)
[2018-03-21] MEDS: MethylPREDNISolone 40 mg Vial IVP SCH ×2 (10:39→21:24)
[2018-03-21] MEDS: Enoxaparin 30 mg Syringe SC SCH (10:40)
--- NOTE | 2018-03-21 10:47 | CP.CCUPN ---
<Merry Farias - Last Filed: 03/21/18 10:40> CCU Subjective - Physician Review Subjective (Free Text): Critical Care Progress Note for Dr. Gibbons's service Patient seen and examined at bedside. 12 point ROS limited as patient intubated and non responsive. Critical Care Time Spent (in minutes): 35 CCU Objective - Vital Signs / Intake & Output Intake and Output (Last 8hrs): Intake & Output 03/20/18 03/21/18 03/21/18 22:59 06:59 14:59 Intake Total 1008.5 65 Output Total 610 Balance 398.5 65 Intake: IV 140 65 Intake, IV Amount 698.5 R subclavian TLC medial 100 port Right Distal Port 500 Subclavian Right Proximal Port 98.5 Subclavian Oral 60 Tube Feeding 110 Output: Urine 610 Urethral (Simmons) 610 Other: # Bowel Movements 0 - Physical Exam Head: Positive for: Atraumatic, Normocephalic Pupils: Positive for: PERRL Extroacular Muscles: Positive for: EOMI Conjunctiva: Positive for: Normal Ears: Positive for: Normal Mouth: Positive for: Dry, Other (ORAL ETT) Neck: Negative for: JVD Respiratory/Chest: Positive for: Good Air Exchange. Negative for: Respiratory Distress, Accessory Muscle Use Cardiovascular: Positive for: Regular Rate and Rhythm, Normal S1, S2. Negative for: Murmurs, Irregular Rhythm, Bradycardic Abdomen: Positive for: Normal Bowel Sounds. Negative for: Tenderness, Distention, Peritoneal Signs Genitourinary Male: Positive for: Other (Simmons in place) Upper Extremity: Positive for: Normal Inspection. Negative for: Cyanosis, Edema Lower Extremity: Positive for: Normal Inspection. Negative for: Edema Neurological: Negative for: GCS=15 Skin: Positive for: Dry, Normal Color. Negative for: Erythematous Psychiatric: Negative for: Alert, Oriented x 3 - Medications Active Medications: Active Medications Generic Name Dose Route Start Last Admin Trade Name Freq PRN Reason Stop Dose Admin Albuterol/Ipratropium 3 ml 03/18/18 21:15 03/21/18 07:25 Duoneb 3 Mg/0.5 Mg (3 Ml) Ud INH 3 ml RQ6 VELMA Administration Diltiazem HCl 240 mg 03/15/18 10:00 03/18/18 09:32 Cardizem Cd PO Not Given DAILY VELMA Enoxaparin Sodium 30 mg 03/07/18 11:00 03/20/18 10:01 Lovenox SC 30 mg DAILY VELMA Administration Fludrocortisone Acetate 0.1 mg 03/10/18 11:15 03/21/18 10:40 Florinef PO 0.1 mg DAILY VELMA Administration Micafungin Sodium 100 mg/ 100 mls @ 100 mls/hr 03/04/18 01:00 03/21/18 00:32 Sodium Chloride IV 100 mls/hr Q24H VELMA Administration Protocol Meropenem 500 mg/ Sodium 100 mls @ 100 mls/hr 03/04/18 01:15 03/21/18 08:36 Chloride IVPB 100 mls/hr Q8H VELMA Administration Protocol Norepinephrine Bitartrate 4 mg 254 mls @ 15.24 mls/hr 03/19/18 17:44 03/21/18 05:00 / Sodium Chloride IV 2.96 mcg/min .[id number] PRN 11.3 mls/hr TITRATE PER MD ORDER Titration Protocol 4 MCG/MIN Sodium Chloride 1,000 mls @ 100 mls/hr 03/20/18 15:00 03/21/18 07:01 Sodium Chloride 0.9% IV 100 mls/hr .Q10H VELMA Administration Potassium Phosphate 15 mmole/ 255 mls @ 42.5 mls/hr 03/21/18 09:30 Sodium Chloride IVPB 03/21/18 15:29 ONCE ONE Potassium Chloride 20 meq in 100 mls @ 50 mls/hr 03/21/18 10:00 Potassium Chloride 20 Meq/100 Ml IVPB 03/21/18 15:59 Q2H VELMA Methylprednisolone 40 mg 03/17/18 22:00 03/21/18 10:39 Solu-Medrol IVP 40 mg Q12 VELMA Administration Pantoprazole Sodium 40 mg 03/20/18 10:00 03/21/18 10:39 Protonix Inj IVP 40 mg DAILY VELMA Administration - Patient Studies Lab Studies: Microbiology Studies 03/19/18 19:26 MRSA Culture (Admit) - Final Nose MRSA NOT DETECTED 03/19/18 21:05 Blood Culture - Preliminary Blood-Thru Central Line NO GROWTH AFTER 24 HOURS 03/19/18 21:05 Blood Culture - Preliminary Blood-Thru Central Line NO GROWTH AFTER 24 HOURS 03/19/18 19:26 Urine Culture - Final Urine,Catheterized No Growth (<1,000 CFU/ML) Lab Studies 03/21/18 03/21/18 03/21/18 Range/Units 07:29 07:29 07:09 WBC 22.3 H (4.8-10.8) K/uL RBC 3.03 L (4.40-5.90) Mil/uL Hgb 9.0 L (12.0-18.0) g/dL Hct 27.9 L (35.0-51.0) % MCV 91.9 (80.0-94.0) fL MCH 29.7 (27.0-31.0) pg MCHC 32.3 L (33.0-37.0) g/dL RDW 17.1 H (11.5-14.5) % Plt Count 197 (130-400) K/uL MPV 8.9 (7.2-11.7) fL Neut % (Auto) 97.5 H (50.0-75.0) % Lymph % (Auto) 0.9 L (20.0-40.0) % [place] % (Auto) 1.5 (0.0-10.0) % Eos % (Auto) 0.0 (0.0-4.0) % Baso % (Auto) 0.1 (0.0-2.0) % Neut # (Auto) 21.7 H (1.8-7.0) K/uL Lymph # (Auto) 0.2 L (1.0-4.3) K/uL [place] # (Auto) 0.3 (0.0-0.8) K/uL Eos # (Auto) 0.0 (0.0-0.7) K/uL Baso # (Auto) 0.0 (0.0-0.2) K/uL Neutrophils % (Manual) 96 H (50-75) % Band Neutrophils % 2 (0-2) % Lymphocytes % (Manual) TEST NOT PERFORMED Monocytes % (Manual) 2 (0-10) % Platelet Estimate Normal (NORMAL) Large Platelets Present Hypochromasia (manual) Slight Poikilocytosis (manual Slight Anisocytosis (manual) Slight Puncture Site pCO2 (35-45) mm/Hg pO2 (80-100) mm/Hg HCO3 (21-28) mmol/L ABG pH (7.35-7.45) ABG Total CO2 (22-28) mmol/L ABG O2 Saturation (95-98) % ABG Base Excess (-2.0-3.0) mmol/L [place] Test ABG Potassium (3.6-5.2) mmol/L A-a O2 Difference mm/Hg Respiratory Index Glucose (75-110) mg/dl Lactate (0.7-2.1) mmol/L Vent Mode Mechanical Rate FiO2 % Tidal Volume PEEP Crit Value Called To Crit Value Called By Crit Value Read Back Sodium 139 (132-148) mmol/L Potassium 2.7 L (3.6-5.2) mmol/L Chloride 98 (98-107) mmol/L Carbon Dioxide 38 H (22-30) mmol/L Anion Gap 6 L (10-20) BUN 18 (9-20) mg/dL Creatinine 0.3 L (0.8-1.5) mg/dL Est GFR ( Amer) > 60 Est GFR (Non-Af Amer) > 60 POC Glucose (mg/dL) 165 H (65-110) mg/dL Random Glucose 144 H (75-110) mg/dL Calcium 7.7 L (8.6-10.4) mg/dl Phosphorus 1.8 L (2.5-4.5) mg/dL Magnesium 1.6 (1.6-2.3) mg/dL Total Bilirubin 1.2 (0.2-1.3) mg/dL AST 123 H D (17-59) U/L ALT 308 H D (21-72) U/L Alkaline Phosphatase 135 H D (38-126) U/L Troponin I (0.00-0.120) ng/mL Total Protein 5.5 L (6.3-8.3) g/dL Albumin 2.7 L (3.5-5.0) g/dL Globulin 2.8 (2.2-3.9) gm/dL Albumin/Globulin Ratio 1.0 (1.0-2.1) Arterial Blood Potassium (3.6-5.2) mmol/L Random Vancomycin ug/mL 03/21/18 03/20/18 03/20/18 Range/Units 04:20 23:40 22:12 WBC (4.8-10.8) K/uL RBC (4.40-5.90) Mil/uL Hgb (12.0-18.0) g/dL Hct (35.0-51.0) % MCV (80.0-94.0) fL MCH (27.0-31.0) pg MCHC (33.0-37.0) g/dL RDW (11.5-14.5) % Plt Count (130-400) K/uL MPV (7.2-11.7) fL Neut % (Auto) (50.0-75.0) % Lymph % (Auto) (20.0-40.0) % [place] % (Auto) (0.0-10.0) % Eos % (Auto) (0.0-4.0) % Baso % (Auto) (0.0-2.0) % Neut # (Auto) (1.8-7.0) K/uL Lymph # (Auto) (1.0-4.3) K/uL [place] # (Auto) (0.0-0.8) K/uL Eos # (Auto) (0.0-0.7) K/uL Baso # (Auto) (0.0-0.2) K/uL Neutrophils % (Manual) (50-75) % Band Neutrophils % (0-2) % Lymphocytes % (Manual) Monocytes % (Manual) (0-10) % Platelet Estimate (NORMAL) Large Platelets Hypochromasia (manual) Poikilocytosis (manual Anisocytosis (manual) Puncture Site Rb pCO2 48 H (35-45) mm/Hg pO2 131 H (80-100) mm/Hg HCO3 35.4 H (21-28) mmol/L ABG pH 7.51 H (7.35-7.45) ABG Total CO2 39.8 H (22-28) mmol/L ABG O2 Saturation 99.7 H (95-98) % ABG Base Excess 13.3 H (-2.0-3.0) mmol/L [place] Test Na ABG Potassium 2.8 L (3.6-5.2) mmol/L A-a O2 Difference 94.0 mm/Hg Respiratory Index 0.7 Glucose 127 H (75-110) mg/dl Lactate 1.2 (0.7-2.1) mmol/L Vent Mode Prvc Mechanical Rate 16 FiO2 40.0 % Tidal Volume 450 PEEP 5 Crit Value Called To Crit Value Called By Crit Value Read Back Sodium 143.0 (132-148) mmol/L Potassium (3.6-5.2) mmol/L Chloride 106.0 (98-107) mmol/L Carbon Dioxide (22-30) mmol/L Anion Gap (10-20) BUN (9-20) mg/dL Creatinine (0.8-1.5) mg/dL Est GFR ( Amer) Est GFR (Non-Af Amer) POC Glucose (mg/dL) 170 H (65-110) mg/dL Random Glucose (75-110) mg/dL Calcium (8.6-10.4) mg/dl Phosphorus (2.5-4.5) mg/dL Magnesium (1.6-2.3) mg/dL Total Bilirubin (0.2-1.3) mg/dL AST (17-59) U/L ALT (21-72) U/L Alkaline Phosphatase (38-126) U/L Troponin I (0.00-0.120) ng/mL Total Protein (6.3-8.3) g/dL Albumin (3.5-5.0) g/dL Globulin (2.2-3.9) gm/dL Albumin/Globulin Ratio (1.0-2.1) Arterial Blood Potassium 2.8 L (3.6-5.2) mmol/L Random Vancomycin < 5.0 ug/mL 03/20/18 03/20/18 03/20/18 Range/Units 17:36 15:49 11:20 WBC (4.8-10.8) K/uL RBC (4.40-5.90) Mil/uL Hgb (12.0-18.0) g/dL Hct (35.0-51.0) % MCV (80.0-94.0) fL MCH (27.0-31.0) pg MCHC (33.0-37.0) g/dL RDW (11.5-14.5) % Plt Count (130-400) K/uL MPV (7.2-11.7) fL Neut % (Auto) (50.0-75.0) % Lymph % (Auto) (20.0-40.0) % [place] % (Auto) (0.0-10.0) % Eos % (Auto) (0.0-4.0) % Baso % (Auto) (0.0-2.0) % Neut # (Auto) (1.8-7.0) K/uL Lymph # (Auto) (1.0-4.3) K/uL [place] # (Auto) (0.0-0.8) K/uL Eos # (Auto) (0.0-0.7) K/uL Baso # (Auto) (0.0-0.2) K/uL Neutrophils % (Manual) (50-75) % Band Neutrophils % (0-2) % Lymphocytes % (Manual) Monocytes % (Manual) (0-10) % Platelet Estimate (NORMAL) Large Platelets Hypochromasia (manual) Poikilocytosis (manual Anisocytosis (manual) Puncture Site pCO2 (35-45) mm/Hg pO2 (80-100) mm/Hg HCO3 (21-28) mmol/L ABG pH (7.35-7.45) ABG Total CO2 (22-28) mmol/L ABG O2 Saturation (95-98) % ABG Base Excess (-2.0-3.0) mmol/L [place] Test ABG Potassium (3.6-5.2) mmol/L A-a O2 Difference mm/Hg Respiratory Index Glucose (75-110) mg/dl Lactate (0.7-2.1) mmol/L Vent Mode Mechanical Rate FiO2 % Tidal Volume PEEP Crit Value Called To Crit Value Called By Crit Value Read Back Sodium 141 (132-148) mmol/L Potassium 3.7 (3.6-5.2) mmol/L Chloride 100 (98-107) mmol/L Carbon Dioxide 40 H* (22-30) mmol/L Anion Gap 5 L (10-20) BUN 16 (9-20) mg/dL Creatinine 0.4 L (0.8-1.5) mg/dL Est GFR ( Amer) > 60 Est GFR (Non-Af Amer) > 60 POC Glucose (mg/dL) 170 H 205 H (65-110) mg/dL Random Glucose 154 H (75-110) mg/dL Calcium 7.7 L (8.6-10.4) mg/dl Phosphorus 2.9 (2.5-4.5) mg/dL Magnesium 1.7 (1.6-2.3) mg/dL Total Bilirubin 2.2 H (0.2-1.3) mg/dL AST 341 H D (17-59) U/L ALT 466 H D (21-72) U/L Alkaline Phosphatase 104 (38-126) U/L Troponin I (0.00-0.120) ng/mL Total Protein 5.9 L (6.3-8.3) g/dL Albumin 2.9 L (3.5-5.0) g/dL Globulin 2.9 (2.2-3.9) gm/dL Albumin/Globulin Ratio 1.0 (1.0-2.1) Arterial Blood Potassium (3.6-5.2) mmol/L Random Vancomycin ug/mL 03/20/18 03/20/18 Range/Units 10:51 04:25 WBC (4.8-10.8) K/uL RBC (4.40-5.90) Mil/uL Hgb (12.0-18.0) g/dL Hct (35.0-51.0) % MCV (80.0-94.0) fL MCH (27.0-31.0) pg MCHC (33.0-37.0) g/dL RDW (11.5-14.5) % Plt Count (130-400) K/uL MPV (7.2-11.7) fL Neut % (Auto) (50.0-75.0) % Lymph % (Auto) (20.0-40.0) % [place] % (Auto) (0.0-10.0) % Eos % (Auto) (0.0-4.0) % Baso % (Auto) (0.0-2.0) % Neut # (Auto) (1.8-7.0) K/uL Lymph # (Auto) (1.0-4.3) K/uL [place] # (Auto) (0.0-0.8) K/uL Eos # (Auto) (0.0-0.7) K/uL Baso # (Auto) (0.0-0.2) K/uL Neutrophils % (Manual) (50-75) % Band Neutrophils % (0-2) % Lymphocytes % (Manual) Monocytes % (Manual) (0-10) % Platelet Estimate (NORMAL) Large Platelets Hypochromasia (manual) Poikilocytosis (manual Anisocytosis (manual) Puncture Site pCO2 (35-45) mm/Hg pO2 176 H (80-100) mm/Hg HCO3 36.1 H (21-28) mmol/L ABG pH 7.48 H (7.35-7.45) ABG Total CO2 41.9 H (22-28) mmol/L ABG O2 Saturation 99.9 H (95-98) % ABG Base Excess 14.2 H (-2.0-3.0) mmol/L [place] Test ABG Potassium (3.6-5.2) mmol/L A-a O2 Difference 113.0 mm/Hg Respiratory Index Glucose (75-110) mg/dl Lactate (0.7-2.1) mmol/L Vent Mode Mechanical Rate FiO2 50.0 % Tidal Volume PEEP Crit Value Called To Huyen/rn Crit Value Called By Pawel barnes/rt Crit Value Read Back Y Sodium (132-148) mmol/L Potassium (3.6-5.2) mmol/L Chloride (98-107) mmol/L Carbon Dioxide (22-30) mmol/L Anion Gap (10-20) BUN (9-20) mg/dL Creatinine (0.8-1.5) mg/dL Est GFR ( Amer) Est GFR (Non-Af Amer) POC Glucose (mg/dL) (65-110) mg/dL Random Glucose (75-110) mg/dL Calcium (8.6-10.4) mg/dl Phosphorus (2.5-4.5) mg/dL Magnesium (1.6-2.3) mg/dL Total Bilirubin (0.2-1.3) mg/dL AST (17-59) U/L ALT (21-72) U/L Alkaline Phosphatase (38-126) U/L Troponin I 0.1900 H* (0.00-0.120) ng/mL Total Protein (6.3-8.3) g/dL Albumin (3.5-5.0) g/dL Globulin (2.2-3.9) gm/dL Albumin/Globulin Ratio (1.0-2.1) Arterial Blood Potassium (3.6-5.2) mmol/L Random Vancomycin ug/mL Laboratory Results - last 24 hr 03/20/18 03/20/18 03/20/18 04:25 10:51 11:20 WBC RBC Hgb Hct MCV MCH MCHC RDW Plt Count MPV Neut % (Auto) Lymph % (Auto) [place] % (Auto) Eos % (Auto) Baso % (Auto) Neut # (Auto) Lymph # (Auto) [place] # (Auto) Eos # (Auto) Baso # (Auto) Neutrophils % (Manual) Band Neutrophils % Lymphocytes % (Manual) Monocytes % (Manual) Platelet Estimate Large Platelets Hypochromasia (manual) Poikilocytosis (manual Anisocytosis (manual) Puncture Site pCO2 pO2 176 H HCO3 36.1 H ABG pH 7.48 H ABG Total CO2 41.9 H ABG O2 Saturation 99.9 H ABG Base Excess 14.2 H [place] Test ABG Potassium A-a O2 Difference 113.0 Respiratory Index Glucose Lactate Vent Mode Mechanical Rate FiO2 50.0 Tidal Volume PEEP Crit Value Called To Huyen/rn Crit Value Called By Pawel barnes/rt Crit Value Read Back Y Sodium Potassium Chloride Carbon Dioxide Anion Gap BUN Creatinine Est GFR ( Amer) Est GFR (Non-Af Amer) POC Glucose (mg/dL) 205 H Random Glucose Calcium Phosphorus Magnesium Total Bilirubin AST ALT Alkaline Phosphatase Troponin I 0.1900 H* Total Protein Albumin Globulin Albumin/Globulin Ratio Arterial Blood Potassium Random Vancomycin 03/20/18 03/20/18 03/20/18 15:49 17:36 22:12 WBC RBC Hgb Hct MCV MCH MCHC RDW Plt Count MPV Neut % (Auto) Lymph % (Auto) [place] % (Auto) Eos % (Auto) Baso % (Auto) Neut # (Auto) Lymph # (Auto) [place] # (Auto) Eos # (Auto) Baso # (Auto) Neutrophils % (Manual) Band Neutrophils % Lymphocytes % (Manual) Monocytes % (Manual) Platelet Estimate Large Platelets Hypochromasia (manual) Poikilocytosis (manual Anisocytosis (manual) Puncture Site pCO2 pO2 HCO3 ABG pH ABG Total CO2 ABG O2 Saturation ABG Base Excess [place] Test ABG Potassium A-a O2 Difference Respiratory Index Glucose Lactate Vent Mode Mechanical Rate FiO2 Tidal Volume PEEP Crit Value Called To Crit Value Called By Crit Value Read Back Sodium 141 Potassium 3.7 Chloride 100 Carbon Dioxide 40 H* Anion Gap 5 L BUN 16 Creatinine 0.4 L Est GFR ( Amer) > 60 Est GFR (Non-Af Amer) > 60 POC Glucose (mg/dL) 170 H Random Glucose 154 H Calcium 7.7 L Phosphorus 2.9 Magnesium 1.7 Total Bilirubin 2.2 H AST 341 H D ALT 466 H D Alkaline Phosphatase 104 Troponin I Total Protein 5.9 L Albumin 2.9 L Globulin 2.9 Albumin/Globulin Ratio 1.0 Arterial Blood Potassium Random Vancomycin < 5.0 03/20/18 03/21/18 03/21/18 23:40 04:20 07:09 WBC RBC Hgb Hct MCV MCH MCHC RDW Plt Count MPV Neut % (Auto) Lymph % (Auto) [place] % (Auto) Eos % (Auto) Baso % (Auto) Neut # (Auto) Lymph # (Auto) [place] # (Auto) Eos # (Auto) Baso # (Auto) Neutrophils % (Manual) Band Neutrophils % Lymphocytes % (Manual) Monocytes % (Manual) Platelet Estimate Large Platelets Hypochromasia (manual) Poikilocytosis (manual Anisocytosis (manual) Puncture Site Rb pCO2 48 H pO2 131 H HCO3 35.4 H ABG pH 7.51 H ABG Total CO2 39.8 H ABG O2 Saturation 99.7 H ABG Base Excess 13.3 H [place] Test Na ABG Potassium 2.8 L A-a O2 Difference 94.0 Respiratory Index 0.7 Glucose 127 H Lactate 1.2 Vent Mode Prvc Mechanical Rate 16 FiO2 40.0 Tidal Volume 450 PEEP 5 Crit Value Called To Crit Value Called By Crit Value Read Back Sodium 143.0 Potassium Chloride 106.0 Carbon Dioxide Anion Gap BUN Creatinine Est GFR ( Amer) Est GFR (Non-Af Amer) POC Glucose (mg/dL) 170 H 165 H Random Glucose Calcium Phosphorus Magnesium Total Bilirubin AST ALT Alkaline Phosphatase Troponin I Total Protein Albumin Globulin Albumin/Globulin Ratio Arterial Blood Potassium 2.8 L Random Vancomycin 03/21/18 03/21/18 07:29 07:29 WBC 22.3 H RBC 3.03 L Hgb 9.0 L Hct 27.9 L MCV 91.9 MCH 29.7 MCHC 32.3 L RDW 17.1 H Plt Count 197 MPV 8.9 Neut % (Auto) 97.5 H Lymph % (Auto) 0.9 L [place] % (Auto) 1.5 Eos % (Auto) 0.0 Baso % (Auto) 0.1 Neut # (Auto) 21.7 H Lymph # (Auto) 0.2 L [place] # (Auto) 0.3 Eos # (Auto) 0.0 Baso # (Auto) 0.0 Neutrophils % (Manual) 96 H Band Neutrophils % 2 Lymphocytes % (Manual) TEST NOT PERFORMED Monocytes % (Manual) 2 Platelet Estimate Normal Large Platelets Present Hypochromasia (manual) Slight Poikilocytosis (manual Slight Anisocytosis (manual) Slight Puncture Site pCO2 pO2 HCO3 ABG pH ABG Total CO2 ABG O2 Saturation ABG Base Excess [place] Test ABG Potassium A-a O2 Difference Respiratory Index Glucose Lactate Vent Mode Mechanical Rate FiO2 Tidal Volume PEEP Crit Value Called To Crit Value Called By Crit Value Read Back Sodium 139 Potassium 2.7 L Chloride 98 Carbon Dioxide 38 H Anion Gap 6 L BUN 18 Creatinine 0.3 L Est GFR ( Amer) > 60 Est GFR (Non-Af Amer) > 60 POC Glucose (mg/dL) Random Glucose 144 H Calcium 7.7 L Phosphorus 1.8 L Magnesium 1.6 Total Bilirubin 1.2 AST 123 H D ALT 308 H D Alkaline Phosphatase 135 H D Troponin I Total Protein 5.5 L Albumin 2.7 L Globulin 2.8 Albumin/Globulin Ratio 1.0 Arterial Blood Potassium Random Vancomycin Radiology Impressions: Radiology Impressions Chest X-Ray 03/20/18 07:00 IMPRESSION: Support lines and tubes as above. Cardiomegaly. Interstitial thickening/edema appear stable. Increasing consolidations within the left hemithorax. Biapical pleural thickening. Probable small bilateral pleural effusions. Chest X-Ray 03/21/18 07:00 IMPRESSION: Little interval change in diffuse interstitial pulmonary disease. No focal consolidation. Diffuse haziness in the left lung could represent layering pleural effusion or alveolar pulmonary edema. Suspect small pleural effusions. Fingerstick Blood Sugar Results: 170 Review of Systems - Review of Systems Systems not reviewed;Unavailable: Intubated Critical Care Progress Note - Ventilator Checklist Head of Bed 30 Degrees: Yes Daily Sedation Vacation: Yes Daily Assessment of Readiness to Wean: Yes Daily Spontaneous Breathing Trial: Yes PUD Prophalyxis: Yes DVT Prophylaxis: Yes Oral Care with Chlorhexidine Gluconate {CHG}: Yes - Vent Settings MODE:: PRVC TIDAL VOLUME:: 450 RESP RATE:: 16 FIO2:: 40 PEEP:: 5 - Extremities/Vascular Does the Patient have a Central Venous Catheter?: Yes Insertion Site: Internal Jugular Vein Does the Patient need a Central Venous Catheter?: Yes Does the Patient have a Simmons Catheter?: Yes Does the Patient need a Simmons Catheter?: Yes Catheter Insertion Criteria: Need for accurate measurement of output in critically ill patient - Prophylaxis GI Prophylaxis GI: PPI - Prophylaxis DVT Prophylaxis DVT: Lovenox - Nutrition Nutrition: Nutrition Category Date Time Status Pureed [Dysphagia/Modified Consistency Diet] [DIET] Diets 03/12/18 Breakfast Active Assessment/Plan - Assessment and Plan (Free Text) Assessment: Patient is a 72 yo male w/PMH of Alzheimer, COPD, CHF, and arthritis admitted for hypoxic resp failure. Patient was intubated prior to transfer to ICU on 03-19 with subclavian TLC placed on 03/19 for hypotension. Neuro not awake, alert, oriented; no sedation; AMS likely 2/2 hypoxia respiratory failure Pulm Intubated on Ventilator Duoneb Solumedrol CV Levophed Fludrocortisone Cardizem- will be held in setting of low blood pressure GI no active issues Protonix Renal Phosphorus, Potassium, Magnesium repleted ID repeat cx pending + cx for yeast and e coli on 03/02 + cx for yeast on 03/12 Micafungin/Meropenem (started on 03/04 both) DVT ppx: Lovenox GI ppx: Protonix Disposition: poor prognosis; family discussion planned for today in the pm PGY-1 [facility] d/w Dr. Jara <Nino Jara S - Last Filed: 03/21/18 16:24> CCU Objective - Vital Signs / Intake & Output Vital Signs (Last 4 hours): Vital Signs Pulse Resp BP Pulse Ox 03/21/18 15:00 95 H 15 100 03/21/18 14:50 99 H 22 111/61 100 03/21/18 14:20 92 H 17 106/58 L 100 03/21/18 14:00 91 H 19 100 03/21/18 13:50 88 16 95/49 L 100 03/21/18 13:20 91 H 16 118/70 100 03/21/18 13:00 92 H 18 99 03/21/18 12:49 92 H 20 101/54 L 100 Intake and Output (Last 8hrs): Intake & Output 03/21/18 03/21/18 03/21/18 06:59 14:59 22:59 Intake Total 1883.8 1753.6 243.8 Output Total 640 450 70 Balance 1243.8 1303.6 173.8 Weight 115 lb 3.2 oz 113 lb 6.4 oz Intake: IV 65 152 Intake, IV Amount 1208.8 1241.6 203.8 R subclavian TLC medial 200 462.5 92.5 port Right Distal Port 900 700 100 Subclavian Right Proximal Port 108.8 79.1 11.3 Subclavian Oral 80 Tube Feeding 360 280 40 Other 250 Output: Urine 640 450 70 Urethral (Simmons) 640 450 70 Emesis 0 Other: # Bowel Movements 0 0 0 - Medications Active Medications: Active Medications Generic Name Dose Route Start Last Admin Trade Name Freq PRN Reason Stop Dose Admin Albuterol/Ipratropium 3 ml 03/18/18 21:15 03/21/18 07:25 Duoneb 3 Mg/0.5 Mg (3 Ml) Ud INH 3 ml RQ6 VELMA Administration Diltiazem HCl 240 mg 03/15/18 10:00 03/18/18 09:32 Cardizem Cd PO Not Given DAILY VELMA Enoxaparin Sodium 30 mg 03/07/18 11:00 03/21/18 10:40 Lovenox SC 30 mg DAILY VELMA Administration Fludrocortisone Acetate 0.1 mg 03/10/18 11:15 03/21/18 10:40 Florinef PO 0.1 mg DAILY VELMA Administration Micafungin Sodium 100 mg/ 100 mls @ 100 mls/hr 03/04/18 01:00 03/21/18 00:32 Sodium Chloride IV 100 mls/hr Q24H VELMA Administration Protocol Meropenem 500 mg/ Sodium 100 mls @ 100 mls/hr 03/04/18 01:15 03/21/18 08:36 Chloride IVPB 100 mls/hr Q8H VELMA Administration Protocol Norepinephrine Bitartrate 4 mg 254 mls @ 15.24 mls/hr 03/19/18 17:44 03/21/18 14:58 / Sodium Chloride IV 1 mcg/min .[id number] PRN 3.81 mls/hr TITRATE PER MD ORDER Titration Protocol 4 MCG/MIN Sodium Chloride 1,000 mls @ 100 mls/hr 03/20/18 15:00 03/21/18 10:41 Sodium Chloride 0.9% IV Not Given .Q10H VELMA Methylprednisolone 40 mg 03/17/18 22:00 03/21/18 10:39 Solu-Medrol IVP 40 mg Q12 VELMA Administration Pantoprazole Sodium 40 mg 03/20/18 10:00 03/21/18 10:39 Protonix Inj IVP 40 mg DAILY VELMA Administration - Patient Studies Lab Studies: Microbiology Studies 03/19/18 20:35 Gram Stain - Final Trachasp Sputum Culture - Final NORMAL ORAL CHELSY 03/19/18 19:26 MRSA Culture (Admit) - Final Nose MRSA NOT DETECTED 03/19/18 21:05 Blood Culture - Preliminary Blood-Thru Central Line NO GROWTH AFTER 24 HOURS 03/19/18 21:05 Blood Culture - Preliminary Blood-Thru Central Line NO GROWTH AFTER 24 HOURS 03/19/18 19:26 Urine Culture - Final Urine,Catheterized No Growth (<1,000 CFU/ML) Lab Studies 03/21/18 03/21/18 03/21/18 Range/Units 11:36 07:29 07:29 WBC 22.3 H (4.8-10.8) K/uL RBC 3.03 L (4.40-5.90) Mil/uL Hgb 9.0 L (12.0-18.0) g/dL Hct 27.9 L (35.0-51.0) % MCV 91.9 (80.0-94.0) fL MCH 29.7 (27.0-31.0) pg MCHC 32.3 L (33.0-37.0) g/dL RDW 17.1 H (11.5-14.5) % Plt Count 197 (130-400) K/uL MPV 8.9 (7.2-11.7) fL Neut % (Auto) 97.5 H (50.0-75.0) % Lymph % (Auto) 0.9 L (20.0-40.0) % [place] % (Auto) 1.5 (0.0-10.0) % Eos % (Auto) 0.0 (0.0-4.0) % Baso % (Auto) 0.1 (0.0-2.0) % Neut # (Auto) 21.7 H (1.8-7.0) K/uL Lymph # (Auto) 0.2 L (1.0-4.3) K/uL [place] # (Auto) 0.3 (0.0-0.8) K/uL Eos # (Auto) 0.0 (0.0-0.7) K/uL Baso # (Auto) 0.0 (0.0-0.2) K/uL Neutrophils % (Manual) 96 H (50-75) % Band Neutrophils % 2 (0-2) % Lymphocytes % (Manual) TEST NOT PERFORMED Monocytes % (Manual) 2 (0-10) % Platelet Estimate Normal (NORMAL) Large Platelets Present Hypochromasia (manual) Slight Poikilocytosis (manual Slight Anisocytosis (manual) Slight Puncture Site pCO2 (35-45) mm/Hg pO2 (80-100) mm/Hg HCO3 (21-28) mmol/L ABG pH (7.35-7.45) ABG Total CO2 (22-28) mmol/L ABG O2 Saturation (95-98) % ABG Base Excess (-2.0-3.0) mmol/L [place] Test ABG Potassium (3.6-5.2) mmol/L A-a O2 Difference mm/Hg Respiratory Index Sodium 139 (132-148) mmol/l Chloride 98 (98-107) mmol/L Glucose (75-110) mg/dl Lactate (0.7-2.1) mmol/L Vent Mode Mechanical Rate FiO2 % Tidal Volume PEEP Potassium 2.7 L (3.6-5.2) mmol/L Carbon Dioxide 38 H (22-30) mmol/L Anion Gap 6 L (10-20) BUN 18 (9-20) mg/dL Creatinine 0.3 L (0.8-1.5) mg/dL Est GFR ( Amer) > 60 Est GFR (Non-Af Amer) > 60 POC Glucose (mg/dL) 168 H (65-110) mg/dL Random Glucose 144 H (75-110) mg/dL Calcium 7.7 L (8.6-10.4) mg/dl Phosphorus 1.8 L (2.5-4.5) mg/dL Magnesium 1.6 (1.6-2.3) mg/dL Total Bilirubin 1.2 (0.2-1.3) mg/dL AST 123 H D (17-59) U/L ALT 308 H D (21-72) U/L Alkaline Phosphatase 135 H D (38-126) U/L Total Protein 5.5 L (6.3-8.3) g/dL Albumin 2.7 L (3.5-5.0) g/dL Globulin 2.8 (2.2-3.9) gm/dL Albumin/Globulin Ratio 1.0 (1.0-2.1) Arterial Blood Potassium (3.6-5.2) mmol/L Random Vancomycin ug/mL 03/21/18 03/21/18 03/20/18 Range/Units 07:09 04:20 23:40 WBC (4.8-10.8) K/uL RBC (4.40-5.90) Mil/uL Hgb (12.0-18.0) g/dL Hct (35.0-51.0) % MCV (80.0-94.0) fL MCH (27.0-31.0) pg MCHC (33.0-37.0) g/dL RDW (11.5-14.5) % Plt Count (130-400) K/uL MPV (7.2-11.7) fL Neut % (Auto) (50.0-75.0) % Lymph % (Auto) (20.0-40.0) % [place] % (Auto) (0.0-10.0) % Eos % (Auto) (0.0-4.0) % Baso % (Auto) (0.0-2.0) % Neut # (Auto) (1.8-7.0) K/uL Lymph # (Auto) (1.0-4.3) K/uL [place] # (Auto) (0.0-0.8) K/uL Eos # (Auto) (0.0-0.7) K/uL Baso # (Auto) (0.0-0.2) K/uL Neutrophils % (Manual) (50-75) % Band Neutrophils % (0-2) % Lymphocytes % (Manual) Monocytes % (Manual) (0-10) % Platelet Estimate (NORMAL) Large Platelets Hypochromasia (manual) Poikilocytosis (manual Anisocytosis (manual) Puncture Site Rb pCO2 48 H (35-45) mm/Hg pO2 131 H (80-100) mm/Hg HCO3 35.4 H (21-28) mmol/L ABG pH 7.51 H (7.35-7.45) ABG Total CO2 39.8 H (22-28) mmol/L ABG O2 Saturation 99.7 H (95-98) % ABG Base Excess 13.3 H (-2.0-3.0) mmol/L [place] Test Na ABG Potassium 2.8 L (3.6-5.2) mmol/L A-a O2 Difference 94.0 mm/Hg Respiratory Index 0.7 Sodium 143.0 (132-148) mmol/l Chloride 106.0 (98-107) mmol/L Glucose 127 H (75-110) mg/dl Lactate 1.2 (0.7-2.1) mmol/L Vent Mode Prvc Mechanical Rate 16 FiO2 40.0 % Tidal Volume 450 PEEP 5 Potassium (3.6-5.2) mmol/L Carbon Dioxide (22-30) mmol/L Anion Gap (10-20) BUN (9-20) mg/dL Creatinine (0.8-1.5) mg/dL Est GFR ( Amer) Est GFR (Non-Af Amer) POC Glucose (mg/dL) 165 H 170 H (65-110) mg/dL Random Glucose (75-110) mg/dL Calcium (8.6-10.4) mg/dl Phosphorus (2.5-4.5) mg/dL Magnesium (1.6-2.3) mg/dL Total Bilirubin (0.2-1.3) mg/dL AST (17-59) U/L ALT (21-72) U/L Alkaline Phosphatase (38-126) U/L Total Protein (6.3-8.3) g/dL Albumin (3.5-5.0) g/dL Globulin (2.2-3.9) gm/dL Albumin/Globulin Ratio (1.0-2.1) Arterial Blood Potassium 2.8 L (3.6-5.2) mmol/L Random Vancomycin ug/mL 03/20/18 03/20/18 Range/Units 22:12 17:36 WBC (4.8-10.8) K/uL RBC (4.40-5.90) Mil/uL Hgb (12.0-18.0) g/dL Hct (35.0-51.0) % MCV (80.0-94.0) fL MCH (27.0-31.0) pg MCHC (33.0-37.0) g/dL RDW (11.5-14.5) % Plt Count (130-400) K/uL MPV (7.2-11.7) fL Neut % (Auto) (50.0-75.0) % Lymph % (Auto) (20.0-40.0) % [place] % (Auto) (0.0-10.0) % Eos % (Auto) (0.0-4.0) % Baso % (Auto) (0.0-2.0) % Neut # (Auto) (1.8-7.0) K/uL Lymph # (Auto) (1.0-4.3) K/uL [place] # (Auto) (0.0-0.8) K/uL Eos # (Auto) (0.0-0.7) K/uL Baso # (Auto) (0.0-0.2) K/uL Neutrophils % (Manual) (50-75) % Band Neutrophils % (0-2) % Lymphocytes % (Manual) Monocytes % (Manual) (0-10) % Platelet Estimate (NORMAL) Large Platelets Hypochromasia (manual) Poikilocytosis (manual Anisocytosis (manual) Puncture Site pCO2 (35-45) mm/Hg pO2 (80-100) mm/Hg HCO3 (21-28) mmol/L ABG pH (7.35-7.45) ABG Total CO2 (22-28) mmol/L ABG O2 Saturation (95-98) % ABG Base Excess (-2.0-3.0) mmol/L [place] Test ABG Potassium (3.6-5.2) mmol/L A-a O2 Difference mm/Hg Respiratory Index Sodium (132-148) mmol/l Chloride (98-107) mmol/L Glucose (75-110) mg/dl Lactate (0.7-2.1) mmol/L Vent Mode Mechanical Rate FiO2 % Tidal Volume PEEP Potassium (3.6-5.2) mmol/L Carbon Dioxide (22-30) mmol/L Anion Gap (10-20) BUN (9-20) mg/dL Creatinine (0.8-1.5) mg/dL Est GFR ( Amer) Est GFR (Non-Af Amer) POC Glucose (mg/dL) 170 H (65-110) mg/dL Random Glucose (75-110) mg/dL Calcium (8.6-10.4) mg/dl Phosphorus (2.5-4.5) mg/dL Magnesium (1.6-2.3) mg/dL Total Bilirubin (0.2-1.3) mg/dL AST (17-59) U/L ALT (21-72) U/L Alkaline Phosphatase (38-126) U/L Total Protein (6.3-8.3) g/dL Albumin (3.5-5.0) g/dL Globulin (2.2-3.9) gm/dL Albumin/Globulin Ratio (1.0-2.1) Arterial Blood Potassium (3.6-5.2) mmol/L Random Vancomycin < 5.0 ug/mL Laboratory Results - last 24 hr 03/20/18 03/20/18 03/20/18 17:36 22:12 23:40 WBC RBC Hgb Hct MCV MCH MCHC RDW Plt Count MPV Neut % (Auto) Lymph % (Auto) [place] % (Auto) Eos % (Auto) Baso % (Auto) Neut # (Auto) Lymph # (Auto) [place] # (Auto) Eos # (Auto) Baso # (Auto) Neutrophils % (Manual) Band Neutrophils % Lymphocytes % (Manual) Monocytes % (Manual) Platelet Estimate Large Platelets Hypochromasia (manual) Poikilocytosis (manual Anisocytosis (manual) Puncture Site pCO2 pO2 HCO3 ABG pH ABG Total CO2 ABG O2 Saturation ABG Base Excess [place] Test ABG Potassium A-a O2 Difference Respiratory Index Sodium Chloride Glucose Lactate Vent Mode Mechanical Rate FiO2 Tidal Volume PEEP Potassium Carbon Dioxide Anion Gap BUN Creatinine Est GFR ( Amer) Est GFR (Non-Af Amer) POC Glucose (mg/dL) 170 H 170 H Random Glucose Calcium Phosphorus Magnesium Total Bilirubin AST ALT Alkaline Phosphatase Total Protein Albumin Globulin Albumin/Globulin Ratio Arterial Blood Potassium Random Vancomycin < 5.0 03/21/18 03/21/18 03/21/18 04:20 07:09 07:29 WBC 22.3 H RBC 3.03 L Hgb 9.0 L Hct 27.9 L MCV 91.9 MCH 29.7 MCHC 32.3 L RDW 17.1 H Plt Count 197 MPV 8.9 Neut % (Auto) 97.5 H Lymph % (Auto) 0.9 L [place] % (Auto) 1.5 Eos % (Auto) 0.0 Baso % (Auto) 0.1 Neut # (Auto) 21.7 H Lymph # (Auto) 0.2 L [place] # (Auto) 0.3 Eos # (Auto) 0.0 Baso # (Auto) 0.0 Neutrophils % (Manual) 96 H Band Neutrophils % 2 Lymphocytes % (Manual) TEST NOT PERFORMED Monocytes % (Manual) 2 Platelet Estimate Normal Large Platelets Present Hypochromasia (manual) Slight Poikilocytosis (manual Slight Anisocytosis (manual) Slight Puncture Site Rb pCO2 48 H pO2 131 H HCO3 35.4 H ABG pH 7.51 H ABG Total CO2 39.8 H ABG O2 Saturation 99.7 H ABG Base Excess 13.3 H [place] Test Na ABG Potassium 2.8 L A-a O2 Difference 94.0 Respiratory Index 0.7 Sodium 143.0 Chloride 106.0 Glucose 127 H Lactate 1.2 Vent Mode Prvc Mechanical Rate 16 FiO2 40.0 Tidal Volume 450 PEEP 5 Potassium Carbon Dioxide Anion Gap BUN Creatinine Est GFR ( Amer) Est GFR (Non-Af Amer) POC Glucose (mg/dL) 165 H Random Glucose Calcium Phosphorus Magnesium Total Bilirubin AST ALT Alkaline Phosphatase Total Protein Albumin Globulin Albumin/Globulin Ratio Arterial Blood Potassium 2.8 L Random Vancomycin 03/21/18 03/21/18 07:29 11:36 WBC RBC Hgb Hct MCV MCH MCHC RDW Plt Count MPV Neut % (Auto) Lymph % (Auto) [place] % (Auto) Eos % (Auto) Baso % (Auto) Neut # (Auto) Lymph # (Auto) [place] # (Auto) Eos # (Auto) Baso # (Auto) Neutrophils % (Manual) Band Neutrophils % Lymphocytes % (Manual) Monocytes % (Manual) Platelet Estimate Large Platelets Hypochromasia (manual) Poikilocytosis (manual Anisocytosis (manual) Puncture Site pCO2 pO2 HCO3 ABG pH ABG Total CO2 ABG O2 Saturation ABG Base Excess [place] Test ABG Potassium A-a O2 Difference Respiratory Index Sodium 139 Chloride 98 Glucose Lactate Vent Mode Mechanical Rate FiO2 Tidal Volume PEEP Potassium 2.7 L Carbon Dioxide 38 H Anion Gap 6 L BUN 18 Creatinine 0.3 L Est GFR ( Amer) > 60 Est GFR (Non-Af Amer) > 60 POC Glucose (mg/dL) 168 H Random Glucose 144 H Calcium 7.7 L Phosphorus 1.8 L Magnesium 1.6 Total Bilirubin 1.2 AST 123 H D ALT 308 H D Alkaline Phosphatase 135 H D Total Protein 5.5 L Albumin 2.7 L Globulin 2.8 Albumin/Globulin Ratio 1.0 Arterial Blood Potassium Random Vancomycin Radiology Impressions: Radiology Impressions Chest X-Ray 03/21/18 07:00 IMPRESSION: Little interval change in diffuse interstitial pulmonary disease. No focal consolidation. Diffuse haziness in the left lung could represent layering pleural effusion or alveolar pulmonary edema. Suspect small pleural effusions. Attending/Attestation - Attestation I have personally seen and examined this patient.: Yes I have fully participated in the care of the patient.: Yes I have reviewed all pertinent clinical information: Yes Notes (Text): 03/21/18 16:23 Patient seen and examined in the intensive care unit. Case discussed with housestaff in the morning rounds. Patient remained intubated on ventilatory support No response to tactile stimuli Extensive family meeting and opted for tracheostomy and PEG tube insertion Continue present treatment
--- NOTE | 2018-03-21 14:16 | CP.PCM.PN ---
Subjective - Date & Time of Evaluation Date of Evaluation: 03/21/18 Time of Evaluation: 14:16 - Subjective Subjective: Patient opens eyes on command but appears confused. Physical examination patient is intubated lungs shows bilateral rhonchi is an heart S1-S2 normal rest of the physical findings normal Liver enzymes and cardiac enzymes are elevated Continue ICU protocol for vent and IV antibiotics Objective - Vital Signs/Intake and Output Vital Signs (last 24 hours): Temp Pulse Resp BP Pulse Ox 98.0 F 91 H 16 118/70 100 03/21/18 12:00 03/21/18 13:20 03/21/18 13:20 03/21/18 13:20 03/21/18 13:20 Intake and Output: 03/21/18 03/21/18 11:59 23:59 Intake Total 2688.0 487.6 Output Total 810 130 Balance 1878.0 357.6 - Medications Medications: Current Medications Albuterol/Ipratropium (Duoneb 3 Mg/0.5 Mg (3 Ml) Ud) 3 ml INH RQ6 [facility] Last Admin: 03/21/18 07:25 Dose: 3 ml Diltiazem HCl (Cardizem Cd) 240 mg PO DAILY [facility] Last Admin: 03/18/18 09:32 Dose: Not Given Enoxaparin Sodium (Lovenox) 30 mg SC DAILY [facility] Last Admin: 03/21/18 10:40 Dose: 30 mg Fludrocortisone Acetate (Florinef) 0.1 mg PO DAILY [facility] Last Admin: 03/21/18 10:40 Dose: 0.1 mg Micafungin Sodium 100 mg/ (Sodium Chloride) 100 mls @ 100 mls/hr IV Q24H [facility]; Protocol Last Admin: 03/21/18 00:32 Dose: 100 mls/hr Meropenem 500 mg/ Sodium (Chloride) 100 mls @ 100 mls/hr IVPB Q8H [facility]; Protocol Last Admin: 03/21/18 08:36 Dose: 100 mls/hr Norepinephrine Bitartrate 4 mg (/ Sodium Chloride) 254 mls @ 15.24 mls/hr IV .[id number] PRN; Protocol PRN Reason: TITRATE PER MD ORDER Last Titration: 03/21/18 09:50 Dose: 2 mcg/min, 7.62 mls/hr Sodium Chloride (Sodium Chloride 0.9%) 1,000 mls @ 100 mls/hr IV .Q10H [facility] Last Admin: 03/21/18 10:41 Dose: Not Given Potassium Phosphate 15 mmole/ (Sodium Chloride) 255 mls @ 42.5 mls/hr IVPB ONCE ONE Stop: 03/21/18 15:29 Last Admin: 03/21/18 10:00 Dose: 42.5 mls/hr Potassium Chloride (Potassium Chloride 20 Meq/100 Ml) 20 meq in 100 mls @ 50 mls/hr IVPB Q2H [facility] Stop: 03/21/18 15:59 Last Admin: 03/21/18 12:45 Dose: 50 mls/hr Methylprednisolone (Solu-Medrol) 40 mg IVP Q12 [facility] Last Admin: 03/21/18 10:39 Dose: 40 mg Pantoprazole Sodium (Protonix Inj) 40 mg IVP DAILY [facility] Last Admin: 03/21/18 10:39 Dose: 40 mg - Labs Labs: 03/21/18 07:29 03/21/18 07:29
--- NOTE | 2018-03-21 16:40 | CP.PCM.CON ---
History of Present Illness - History of Present Illness History of Present Illness: CT surgery Consult note. Dr. Ritchie. History obtained from chart review and staff due current condition. 72yo male with PMHx of alzhemiers, emphysema who was admitted to the hospital on 03/01 due acute cholecystitis and bronchopulmonary pneumonia. Surgery unable to be performed due to the poor respiratory status. Abd pain any symptoms improved with conservative treatment. Patient returned this hospitalization due to respiratory failure and was in the ICU and was able to be extubated and transferred to the floor. On 03/19/18 while on the hospital gordillo, patient had an episode of confusion and removed his high flow NC O2 therapy. He subsequently became apenic, hypoxic and was re-intubated due to respiratory failure. ACLS was initiated and ROSC achieved. Currently, patient is minimally responsive to painful stimuli and unable to be weaned off the ventilator safely. Surgery consulted for trachestomy and peg tube placement. A complete 12-point ROS unable to be obtained due to current patient status. Current Ventilator settings: PRVC PEEP: 5 Tidal Volume: 450 RR: 16 FiO2% 40 PMHx: Alzheimers, emphysema, HTN, cholelithiasis PSH: arm surgery NKDA Review of Systems - Review of Systems Systems not reviewed;Unavailable: Altered Mental Status, Intubated Past Patient History - Past Medical History & Family History Past Medical History?: Yes Past Family History: Reviewed and not pertinent - Past Social History Smoking Status: Former Smoker - CARDIAC Hx Congestive Heart Failure: Yes - PULMONARY Hx Emphysema: Yes Hx Pneumonia: Yes - NEUROLOGICAL Hx Alzheimer's Disease: Yes - HEENT Hx HEENT Problems: No - RENAL Hx Chronic Kidney Disease: No - ENDOCRINE/METABOLIC Hx Endocrine Disorders: No - HEMATOLOGICAL/ONCOLOGICAL Hx Blood Disorders: No - INTEGUMENTARY Hx Dermatological Problems: No - MUSCULOSKELETAL/RHEUMATOLOGICAL Hx Arthritis: Yes - GASTROINTESTINAL Hx Gastrointestinal Disorders: No Hx Gall Bladder Disease: Yes - GENITOURINARY/GYNECOLOGICAL Hx Genitourinary Disorders: No - PSYCHIATRIC Hx Substance Use: No - SURGICAL HISTORY Hx Surgeries: Yes Hx Orthopedic Surgery: Yes (LEFT ARM) - ANESTHESIA Hx Anesthesia: Yes Hx Anesthesia Reactions: No Hx Malignant Hyperthermia: No Meds Allergies/Adverse Reactions: Allergies Allergy/AdvReac Type Severity Reaction Status Date / Time No Known Allergies Allergy Verified 03/01/18 18:48 - Medications Medications: Current Medications Albuterol/Ipratropium (Duoneb 3 Mg/0.5 Mg (3 Ml) Ud) 3 ml INH RQ6 [facility] Last Admin: 03/21/18 07:25 Dose: 3 ml Diltiazem HCl (Cardizem Cd) 240 mg PO DAILY [facility] Last Admin: 03/18/18 09:32 Dose: Not Given Enoxaparin Sodium (Lovenox) 30 mg SC DAILY [facility] Last Admin: 03/21/18 10:40 Dose: 30 mg Fludrocortisone Acetate (Florinef) 0.1 mg PO DAILY [facility] Last Admin: 03/21/18 10:40 Dose: 0.1 mg Micafungin Sodium 100 mg/ (Sodium Chloride) 100 mls @ 100 mls/hr IV Q24H [facility]; Protocol Last Admin: 03/21/18 00:32 Dose: 100 mls/hr Meropenem 500 mg/ Sodium (Chloride) 100 mls @ 100 mls/hr IVPB Q8H [facility]; Protocol Last Admin: 03/21/18 16:33 Dose: 100 mls/hr Norepinephrine Bitartrate 4 mg (/ Sodium Chloride) 254 mls @ 15.24 mls/hr IV .[id number] PRN; Protocol PRN Reason: TITRATE PER MD ORDER Last Titration: 03/21/18 14:58 Dose: 1 mcg/min, 3.81 mls/hr Sodium Chloride (Sodium Chloride 0.9%) 1,000 mls @ 100 mls/hr IV .Q10H [facility] Last Admin: 03/21/18 10:41 Dose: Not Given Methylprednisolone (Solu-Medrol) 40 mg IVP Q12 [facility] Last Admin: 03/21/18 10:39 Dose: 40 mg Pantoprazole Sodium (Protonix Inj) 40 mg IVP DAILY [facility] Last Admin: 03/21/18 10:39 Dose: 40 mg Physical Exam - Constitutional Appears: Chronically Ill - Head Exam Head Exam: ATRAUMATIC, NORMAL INSPECTION, NORMOCEPHALIC - Eye Exam Additional comments: Intubated and on vent - Cardiovascular Exam Cardiovascular Exam: RRR. absent: JVD - GI/Abdominal Exam GI & Abdominal Exam: Soft. absent: Distended, Firm, Guarding, Rebound, Rigid, Tenderness - Extremities Exam Extremities exam: Positive for: normal inspection - Neurological Exam Additional comments: Only opens his eyes to painful stimuli. No motor response elicited. Does not follow commands. Intubated - Skin Skin Exam: Dry, Intact, Normal Color, Warm Results - Vital Signs Recent Vital Signs: Last Vital Signs Temp 98.0 F 03/21/18 16:00 Pulse 94 H 03/21/18 16:19 Resp 20 03/21/18 16:19 BP 97/51 L 03/21/18 16:19 Pulse Ox 99 03/21/18 16:19 - Labs Result Diagrams: 03/21/18 07:29 03/21/18 07:29 Labs: Laboratory Results - last 24 hr 03/20/18 03/20/18 03/20/18 17:36 22:12 23:40 WBC RBC Hgb Hct MCV MCH MCHC RDW Plt Count MPV Neut % (Auto) Lymph % (Auto) [place] % (Auto) Eos % (Auto) Baso % (Auto) Neut # (Auto) Lymph # (Auto) [place] # (Auto) Eos # (Auto) Baso # (Auto) Neutrophils % (Manual) Band Neutrophils % Lymphocytes % (Manual) Monocytes % (Manual) Platelet Estimate Large Platelets Hypochromasia (manual) Poikilocytosis (manual Anisocytosis (manual) Puncture Site pCO2 pO2 HCO3 ABG pH ABG Total CO2 ABG O2 Saturation ABG Base Excess [place] Test ABG Potassium A-a O2 Difference Respiratory Index Sodium Chloride Glucose Lactate Vent Mode Mechanical Rate FiO2 Tidal Volume PEEP Potassium Carbon Dioxide Anion Gap BUN Creatinine Est GFR ( Amer) Est GFR (Non-Af Amer) POC Glucose (mg/dL) 170 H 170 H Random Glucose Calcium Phosphorus Magnesium Total Bilirubin AST ALT Alkaline Phosphatase Total Protein Albumin Globulin Albumin/Globulin Ratio Arterial Blood Potassium Random Vancomycin < 5.0 03/21/18 03/21/18 03/21/18 04:20 07:09 07:29 WBC 22.3 H RBC 3.03 L Hgb 9.0 L Hct 27.9 L MCV 91.9 MCH 29.7 MCHC 32.3 L RDW 17.1 H Plt Count 197 MPV 8.9 Neut % (Auto) 97.5 H Lymph % (Auto) 0.9 L [place] % (Auto) 1.5 Eos % (Auto) 0.0 Baso % (Auto) 0.1 Neut # (Auto) 21.7 H Lymph # (Auto) 0.2 L [place] # (Auto) 0.3 Eos # (Auto) 0.0 Baso # (Auto) 0.0 Neutrophils % (Manual) 96 H Band Neutrophils % 2 Lymphocytes % (Manual) TEST NOT PERFORMED Monocytes % (Manual) 2 Platelet Estimate Normal Large Platelets Present Hypochromasia (manual) Slight Poikilocytosis (manual Slight Anisocytosis (manual) Slight Puncture Site Rb pCO2 48 H pO2 131 H HCO3 35.4 H ABG pH 7.51 H ABG Total CO2 39.8 H ABG O2 Saturation 99.7 H ABG Base Excess 13.3 H [place] Test Na ABG Potassium 2.8 L A-a O2 Difference 94.0 Respiratory Index 0.7 Sodium 143.0 Chloride 106.0 Glucose 127 H Lactate 1.2 Vent Mode Prvc Mechanical Rate 16 FiO2 40.0 Tidal Volume 450 PEEP 5 Potassium Carbon Dioxide Anion Gap BUN Creatinine Est GFR ( Amer) Est GFR (Non-Af Amer) POC Glucose (mg/dL) 165 H Random Glucose Calcium Phosphorus Magnesium Total Bilirubin AST ALT Alkaline Phosphatase Total Protein Albumin Globulin Albumin/Globulin Ratio Arterial Blood Potassium 2.8 L Random Vancomycin 03/21/18 03/21/18 07:29 11:36 WBC RBC Hgb Hct MCV MCH MCHC RDW Plt Count MPV Neut % (Auto) Lymph % (Auto) [place] % (Auto) Eos % (Auto) Baso % (Auto) Neut # (Auto) Lymph # (Auto) [place] # (Auto) Eos # (Auto) Baso # (Auto) Neutrophils % (Manual) Band Neutrophils % Lymphocytes % (Manual) Monocytes % (Manual) Platelet Estimate Large Platelets Hypochromasia (manual) Poikilocytosis (manual Anisocytosis (manual) Puncture Site pCO2 pO2 HCO3 ABG pH ABG Total CO2 ABG O2 Saturation ABG Base Excess [place] Test ABG Potassium A-a O2 Difference Respiratory Index Sodium 139 Chloride 98 Glucose Lactate Vent Mode Mechanical Rate FiO2 Tidal Volume PEEP Potassium 2.7 L Carbon Dioxide 38 H Anion Gap 6 L BUN 18 Creatinine 0.3 L Est GFR ( Amer) > 60 Est GFR (Non-Af Amer) > 60 POC Glucose (mg/dL) 168 H Random Glucose 144 H Calcium 7.7 L Phosphorus 1.8 L Magnesium 1.6 Total Bilirubin 1.2 AST 123 H D ALT 308 H D Alkaline Phosphatase 135 H D Total Protein 5.5 L Albumin 2.7 L Globulin 2.8 Albumin/Globulin Ratio 1.0 Arterial Blood Potassium Random Vancomycin Assessment & Plan - Assessment and Plan (Free Text) Assessment: 72yo M with ventilator dependent respiratory failure Plan: - Medical maximization as per primary and ICU teams - Will plan for OR for tracheostomy and PEG placement on Saturday AM, 03/25/18 - NPO past midnight 03/24/18 Further recs as per Dr. Vance Martinez PGY2 Surgery
--- NOTE | 2018-03-21 16:47 | CP.PCM.PN ---
Subjective - Date & Time of Evaluation Date of Evaluation: 03/21/18 Time of Evaluation: 16:44 - Subjective Subjective: PT INTUBATED. ROS; UNOBTAINABLE Objective - Vital Signs/Intake and Output Vital Signs (last 24 hours): Temp Pulse Resp BP Pulse Ox 98.0 F 94 H 20 97/51 L 99 03/21/18 16:00 03/21/18 16:19 03/21/18 16:19 03/21/18 16:19 03/21/18 16:19 Intake and Output: 03/21/18 03/21/18 06:59 18:59 Intake Total 2573.8 1997.4 Output Total 1005 520 Balance 1568.8 1477.4 - Medications Medications: Current Medications Albuterol/Ipratropium (Duoneb 3 Mg/0.5 Mg (3 Ml) Ud) 3 ml INH RQ6 [facility] Last Admin: 03/21/18 07:25 Dose: 3 ml Diltiazem HCl (Cardizem Cd) 240 mg PO DAILY [facility] Last Admin: 03/18/18 09:32 Dose: Not Given Enoxaparin Sodium (Lovenox) 30 mg SC DAILY [facility] Last Admin: 03/21/18 10:40 Dose: 30 mg Fludrocortisone Acetate (Florinef) 0.1 mg PO DAILY [facility] Last Admin: 03/21/18 10:40 Dose: 0.1 mg Micafungin Sodium 100 mg/ (Sodium Chloride) 100 mls @ 100 mls/hr IV Q24H [facility]; Protocol Last Admin: 03/21/18 00:32 Dose: 100 mls/hr Meropenem 500 mg/ Sodium (Chloride) 100 mls @ 100 mls/hr IVPB Q8H [facility]; Protocol Last Admin: 03/21/18 16:33 Dose: 100 mls/hr Norepinephrine Bitartrate 4 mg (/ Sodium Chloride) 254 mls @ 15.24 mls/hr IV .[id number] PRN; Protocol PRN Reason: TITRATE PER MD ORDER Last Titration: 03/21/18 14:58 Dose: 1 mcg/min, 3.81 mls/hr Sodium Chloride (Sodium Chloride 0.9%) 1,000 mls @ 100 mls/hr IV .Q10H [facility] Last Admin: 03/21/18 10:41 Dose: Not Given Methylprednisolone (Solu-Medrol) 40 mg IVP Q12 [facility] Last Admin: 03/21/18 10:39 Dose: 40 mg Pantoprazole Sodium (Protonix Inj) 40 mg IVP DAILY [facility] Last Admin: 03/21/18 10:39 Dose: 40 mg - Labs Labs: 03/21/18 07:29 03/21/18 07:29 - Constitutional Appears: Cachectic, Chronically Ill - Head Exam Head Exam: ATRAUMATIC, NORMOCEPHALIC - Eye Exam Eye Exam: Normal appearance - ENT Exam Additional comments: ORAL ETT+ - Neck Exam Neck Exam: Normal Inspection - Respiratory Exam Respiratory Exam: Rhonchi - Cardiovascular Exam Cardiovascular Exam: RRR, +S1, +S2 - GI/Abdominal Exam GI & Abdominal Exam: Soft - Rectal Exam Rectal Exam: Deferred - Extremities Exam Extremities Exam: absent: Pedal Edema - Neurological Exam Additional comments: OPENS EYES NOT FOLLOWING - Skin Skin Exam: absent: Rash Assessment and Plan (1) Septic shock Status: Acute (2) Altered mental status Status: Acute (3) Pneumonia Status: Acute (4) Respiratory failure requiring intubation Status: Acute (5) COPD exacerbation Status: Acute (6) Cachexia Status: Acute (7) Cholelithiases Status: Acute (8) Alzheimer disease Status: Chronic - Assessment and Plan (Free Text) Assessment: HYPOTENSIVE, ON IV LEVO AT 1UG NOW. CONT AC SUPPORT. ABG NOTED. CONT PULM TOILET., MONITOR O2 SAT. CXR REVIEWED. CONT AB. SURG EVAL FOR POSS TRACH AND PEG., PROG POOR. DISCUSSED WITH STAFF AT LENGTH. TIME SPENT 1HR
--- NOTE | 2018-03-21 19:17 | CP.PCM.PN ---
Subjective - Date & Time of Evaluation Date of Evaluation: 03/21/18 Time of Evaluation: 19:17 - Subjective Subjective: INTUBATED ,SEDATED ON PRESSORS ON NGT FEEDINGS. ROS : NA. LABS NOTED: WBC 22.3- IMPROVING H/H 9.0 K 2.7 CREAT 0.3/BUN 23 LFTS ; IMPROVING SPUTUM -N. CHELSY URINE CULTURE 03/19/18 -VE GROWTH. BLOOD CULURES 2:2 SETS 03/19/18 -VE X 48HRS Objective - Vital Signs/Intake and Output Vital Signs (last 24 hours): Temp Pulse Resp BP Pulse Ox 98.0 F 96 H 21 94/53 L 98 03/21/18 16:00 03/21/18 19:00 03/21/18 19:00 03/21/18 18:49 03/21/18 19:00 Intake and Output: 03/21/18 03/22/18 18:59 06:59 Intake Total 2658.3 140 Output Total 1300 50 Balance 1358.3 90 - Medications Medications: Current Medications Albuterol/Ipratropium (Duoneb 3 Mg/0.5 Mg (3 Ml) Ud) 3 ml INH RQ6 [facility] Last Admin: 03/21/18 07:25 Dose: 3 ml Diltiazem HCl (Cardizem Cd) 240 mg PO DAILY [facility] Last Admin: 03/18/18 09:32 Dose: Not Given Enoxaparin Sodium (Lovenox) 30 mg SC DAILY [facility] Last Admin: 03/21/18 10:40 Dose: 30 mg Fludrocortisone Acetate (Florinef) 0.1 mg PO DAILY [facility] Last Admin: 03/21/18 10:40 Dose: 0.1 mg Micafungin Sodium 100 mg/ (Sodium Chloride) 100 mls @ 100 mls/hr IV Q24H [facility]; Protocol Last Admin: 03/21/18 00:32 Dose: 100 mls/hr Meropenem 500 mg/ Sodium (Chloride) 100 mls @ 100 mls/hr IVPB Q8H [facility]; Protocol Last Admin: 03/21/18 16:33 Dose: 100 mls/hr Norepinephrine Bitartrate 4 mg (/ Sodium Chloride) 254 mls @ 15.24 mls/hr IV .[id number] PRN; Protocol PRN Reason: TITRATE PER MD ORDER Last Titration: 03/21/18 17:08 Dose: 0 mcg/min, 0 mls/hr Sodium Chloride (Sodium Chloride 0.9%) 1,000 mls @ 100 mls/hr IV .Q10H [facility] Last Admin: 03/21/18 18:25 Dose: 100 mls/hr Methylprednisolone (Solu-Medrol) 40 mg IVP Q12 [facility] Last Admin: 03/21/18 10:39 Dose: 40 mg Pantoprazole Sodium (Protonix Inj) 40 mg IVP DAILY [facility] Last Admin: 03/21/18 10:39 Dose: 40 mg - Labs Labs: 03/21/18 07:29 03/21/18 07:29 - Constitutional Appears: No Acute Distress, Cachectic, Chronically Ill - Head Exam Head Exam: NORMAL INSPECTION (INTUBATED.) - Eye Exam Eye Exam: PERRL - ENT Exam ENT Exam: Mucous Membranes Moist - Neck Exam Neck Exam: Normal Inspection - Respiratory Exam Respiratory Exam: Decreased Breath Sounds, Rhonchi (ON VENTILATOR) - Cardiovascular Exam Cardiovascular Exam: Tachycardia, REGULAR RHYTHM, +S1, +S2 - GI/Abdominal Exam GI & Abdominal Exam: Soft, Normal Bowel Sounds - Extremities Exam Extremities Exam: Normal Capillary Refill. absent: Calf Tenderness, Pedal Edema - Neurological Exam Neurological Exam: Altered, Awake (DOES NOT FOLLOW COMMANDS. oPENS EYES) - Skin Skin Exam: Normal Color, Warm - Additional Findings Additional findings: CHEST X-RAY 03/21/18- REVIEWED nO FOCAL CONSOLIDATION. dIFFUSE INTERSTITIAL PULMONARY DISEASE UNCHANGED. dIFFUSE HAZINESS LEFT LUNG ? LAYERING PLEURAL EFFUSION VS ALVEOLAR PULMONARY EDEMA. SMaLL PLEURAL EFFUSIONS Assessment and Plan (1) Sepsis associated hypotension Status: Acute (2) Respiratory failure requiring intubation Status: Acute (3) Altered mental status Status: Acute (4) Pneumonia Status: Acute (5) Abdominal pain Status: Acute (6) Cholelithiases Status: Acute - Assessment and Plan (Free Text) Plan: CONTINUE IV MERREM 500MG IVPB Q8HRLY 03/04/18 CONTINUE IV MYCAFUNGIN 100MG IV PB Q 24 HRLY 03/04/18. VANCOMYCIN 1GM IVPB X1 DOSE STAT AFTER BLOOD CULTURES 03/20/18 F/U CULTURES TO ADJUST ABX. PATIENT FOR TRACH AND PEG F/U LFTS IN AM PER PTS FAMILY , PT FULL CODE. PULMONARY TOILET.
[2018-03-21] MEDS ORDERED: HYDROmorphone 0.5 mg/0.5 ml ISec IVP STA (20:32)
[2018-03-21 21:20] LABS: ALBUMIN 2.5 g/dL (3.5-5.0); ALT/SGPT 228 U/L (21-72); AST/SGOT 56 U/L (17-59); BLOOD UREA NITROGEN 18 mg/dL (9-20); CALCIUM 6.8 mg/dl (8.6-10.4); GFR NON-AFRICAN AMERICAN > 60
[2018-03-22] MEDS: Micafungin 100 MG in Sodium Chloride 0.9% 100 ML IV SCH (00:34)
[2018-03-22] MEDS: Albuterol-Ipratrop 3 mg / 0.5 (3 ml) UD INH SCH ×4 (01:14→19:45)
[2018-03-22] MEDS: Meropenem 500 MG in Sodium Chloride 0.9% 100 ML IVPB SCH ×3 (02:00→17:27)
[2018-03-22 05:08] LABS: ARTERIAL BLOOD GAS HCO3 31.9 mmol/L (21-28); ARTERIAL BLOOD GAS HEMOGLOBIN 13.6 g/dL (11.7-17.4); ARTERIAL BLOOD GAS O2 SAT 99.8 % (95-98); ARTERIAL BLOOD GAS PCO2 44 mm/Hg (35-45); ARTERIAL BLOOD GAS PH 7.49 (7.35-7.45); ARTERIAL BLOOD GAS PO2 151 mm/Hg (80-100); ARTERIAL BLOOD GAS TCO2 34.9 mmol/L (22-28)
[2018-03-22 06:01] LABS: BASO % 0.1 % (0.0-2.0); HEMOGLOBIN 8.4 g/dL (12.0-18.0); LYMPH # 0.1 K/uL (1.0-4.3); LYMPH % 0.8 % (20.0-40.0); MEAN CORPUSCULAR HEMOGLOBIN 29.1 pg (27.0-31.0); MEAN CORPUSCULAR HGB CONC 31.6 g/dL (33.0-37.0); MEAN PLATELET VOLUME 9.2 fL (7.2-11.7); MONO # 0.5 K/uL (0.0-0.8); NEUT # 16.5 K/uL (1.8-7.0); NEUT % 96.1 % (50.0-75.0); NRBC % 0.2 % (0.0-2.0); PLATELET COUNT 196 K/uL (130-400); RBC 2.91 Mil/uL (4.40-5.90); RED CELL DISTRIBUTION WIDTH 17.2 % (11.5-14.5); WHITE BLOOD COUNT 17.1 K/uL (4.8-10.8)
[2018-03-22 06:14] LABS: ALB/GLOB RATIO 0.9 (1.0-2.1); ALBUMIN 2.5 g/dL (3.5-5.0); ALT/SGPT 193 U/L (21-72); AST/SGOT 47 U/L (17-59); BLOOD UREA NITROGEN 21 mg/dL (9-20); CALCIUM 7.6 mg/dl (8.6-10.4); GFR NON-AFRICAN AMERICAN > 60
[2018-03-22] MEDS: Sodium Chloride 0.9% 1,000 ML IV SCH (07:06)
[2018-03-22] MEDS ORDERED: Potassium Phosphate 30 MMOLE in Dextrose 5% In Water 250 ML IVPB ONE (08:00)
[2018-03-22 08:19] LABS: BANDS 2 % (0-2); LYMPHOCYTE 2 % (20-40); MONOCYTE 4 % (0-10); NEUTROPHIL 92 % (50-75); TOTAL CELLS COUNTED 100
[2018-03-22 08:20] LABS: ANISOCYTOSIS MODERATE; HYPOCHROMIC SLIGHT; PLATELET ESTIMATE NORMAL (NORMAL); POLYCHROMIC SLIGHT
[2018-03-22 08:21] LABS: LARGE PLATELETS PRESENT; POIKILOCYTOSIS SLIGHT; SCHISTOCYTES SLIGHT; TARGET CELLS SLIGHT
--- NOTE | 2018-03-22 09:33 | RAD ---
HISTORY: R/O infiltrates COMPARISON: Chest x-ray performed 03/21/18 TECHNIQUE: Chest, one view. FINDINGS: Numerous external wires and leads obscure evaluation of the underlying parenchyma. Right-sided central venous catheter extends to the SVC. Endotracheal tube terminates approximately 2.5 cm above the mandie. Nasogastric tube extends expected location of the stomach. LUNGS: Hypoinflation. Diffuse bilateral interstitial thickening and faint haziness throughout the left lung. Biapical pleural thickening. Mild bibasilar atelectasis. PLEURA: No significant pleural effusion identified. No definite pneumothorax . CARDIOVASCULAR: Mild cardiomegaly. Atherosclerotic calcification present. OSSEOUS STRUCTURES: Partially imaged surgical fixation of bilateral humeri. VISUALIZED UPPER ABDOMEN: Unremarkable. OTHER FINDINGS: None. IMPRESSION: Right-sided central venous catheter extends to the SVC. Endotracheal tube terminates approximately 2.5 cm above the mandie. Nasogastric tube extends expected location of the stomach. Diffuse bilateral interstitial thickening and faint haziness throughout the left lung. Biapical pleural thickening. Mild bibasilar atelectasis. Hypoinflation. Osseous demineralization. Degenerative changes.
--- NOTE | 2018-03-22 10:17 | CP.PCM.PN ---
Subjective - Date & Time of Evaluation Date of Evaluation: 03/22/18 Time of Evaluation: 10:14 - Subjective Subjective: PT INTUBATED. ROS; UNOBTAINABLE Objective - Vital Signs/Intake and Output Vital Signs (last 24 hours): Temp Pulse Resp BP Pulse Ox 98.1 F 97 H 21 109/63 100 03/22/18 08:00 03/22/18 08:49 03/22/18 08:49 03/22/18 08:49 03/22/18 08:49 Intake and Output: 03/22/18 03/22/18 06:59 18:59 Intake Total 1736.6 492.5 Output Total 1140 110 Balance 596.6 382.5 - Medications Medications: Current Medications Albuterol/Ipratropium (Duoneb 3 Mg/0.5 Mg (3 Ml) Ud) 3 ml INH RQ6 [facility] Last Admin: 03/22/18 07:29 Dose: 3 ml Diltiazem HCl (Cardizem Cd) 240 mg PO DAILY [facility] Last Admin: 03/18/18 09:32 Dose: Not Given Enoxaparin Sodium (Lovenox) 30 mg SC DAILY [facility] Last Admin: 03/21/18 10:40 Dose: 30 mg Fludrocortisone Acetate (Florinef) 0.1 mg PO DAILY [facility] Last Admin: 03/22/18 09:21 Dose: 0.1 mg Micafungin Sodium 100 mg/ (Sodium Chloride) 100 mls @ 100 mls/hr IV Q24H [facility]; Protocol Last Admin: 03/22/18 00:34 Dose: 100 mls/hr Meropenem 500 mg/ Sodium (Chloride) 100 mls @ 100 mls/hr IVPB Q8H [facility]; Protocol Last Admin: 03/22/18 08:38 Dose: 100 mls/hr Norepinephrine Bitartrate 4 mg (/ Sodium Chloride) 254 mls @ 15.24 mls/hr IV .[id number] PRN; Protocol PRN Reason: TITRATE PER MD ORDER Last Titration: 03/21/18 21:30 Dose: 0.91 mcg/min, 3.5 mls/hr Sodium Chloride (Sodium Chloride 0.9%) 1,000 mls @ 100 mls/hr IV .Q10H [facility] Last Admin: 03/22/18 07:06 Dose: 100 mls/hr Potassium Phosphate 30 mmole/ (Dextrose) 260 mls @ 42.5 mls/hr IVPB ONCE ONE Stop: 03/22/18 14:07 Last Admin: 03/22/18 08:36 Dose: 42.5 mls/hr Methylprednisolone (Solu-Medrol) 40 mg IVP Q12 [facility] Last Admin: 03/21/18 21:24 Dose: 40 mg Pantoprazole Sodium (Protonix Inj) 40 mg IVP DAILY [facility] Last Admin: 03/22/18 09:22 Dose: 40 mg - Labs Labs: 03/22/18 05:52 03/22/18 05:52 - Constitutional Appears: Cachectic, Chronically Ill - Head Exam Head Exam: ATRAUMATIC, NORMOCEPHALIC - Eye Exam Eye Exam: Normal appearance - ENT Exam Additional comments: ORAL ETT+OGT - Neck Exam Neck Exam: Normal Inspection - Respiratory Exam Respiratory Exam: Rhonchi - Cardiovascular Exam Cardiovascular Exam: RRR, +S1, +S2 - GI/Abdominal Exam GI & Abdominal Exam: Soft - Rectal Exam Rectal Exam: Deferred - Extremities Exam Extremities Exam: absent: Pedal Edema - Neurological Exam Additional comments: AROUSABLE. - Skin Skin Exam: absent: Rash Assessment and Plan (1) Septic shock Status: Acute (2) Altered mental status Status: Acute (3) Pneumonia Status: Acute (4) Respiratory failure requiring intubation Status: Acute (5) COPD exacerbation Status: Acute (6) Cachexia Status: Acute (7) Cholelithiases Status: Acute (8) Alzheimer disease Status: Chronic - Assessment and Plan (Free Text) Assessment: TAPERED OFF IV LEVO. CONT AC SUPPORT., ABG NOTED., CONT PULM TOILET., NEB BD., CXR REVIEWED. PLAN FOR TRACH / PEG. CONT AB PER ID., CONT FEEDINGS., CORRECT ELECTROLYTES. PROG POOR. DISCUSSED WITH STAFF AND RT AT LENGTH. TIME SPENT 1HR
[2018-03-22] MEDS: MethylPREDNISolone 40 mg Vial IVP SCH ×3 (10:20→21:43)
[2018-03-22] MEDS: Enoxaparin 30 mg Syringe SC SCH (10:20)
--- NOTE | 2018-03-22 11:14 | CP.CCUPN ---
CCU Subjective - Physician Review Events Since Last Encounter (Free Text): 03/22/18 11:12 Patient is a 72-year-old male admitted initially with the sepsis. He has a lung fibrosis Because of the recurrent respiratory failure and lung fibrosis patient is a candidate for long-term ventilator 2*Fibrosis. Initially admitted with acute respiratory failure extubated. But again patient had an episode of respiratory arrest intubated and brought to the ICU again, scheduled to have a tracheostomy in 2 days. Currently patient is awake and responding. On examination: Vital signs stable otherwise. Chest bilateral wheezing noted. Thick secretions present. He is on currently antibiotic Labs reviewed x-ray reviewed Assessment and Plan: 72-year-old male with a history of lung fibrosis pneumonia admitted with recurrent episode of respiratory insufficiency on ventilator at this time. For tracheostomy. DVT GI prophylaxis. Check PT/INR. Continue the feeding. Prognosis guarded and will follow the patient. CCU Objective - Vital Signs / Intake & Output Vital Signs (Last 4 hours): Vital Signs Temp Pulse Resp BP Pulse Ox 03/22/18 10:00 104 H 18 100 03/22/18 09:49 97 H 19 108/63 100 03/22/18 09:19 96 H 16 104/64 100 03/22/18 09:00 99 H 21 100 03/22/18 08:49 97 H 21 109/63 100 03/22/18 08:19 96 H 16 107/66 100 03/22/18 08:00 98.1 F 97 H 16 100 03/22/18 07:49 100 H 16 108/66 100 03/22/18 07:19 97 H 21 116/64 100 Intake and Output (Last 8hrs): Intake & Output 03/21/18 03/22/18 03/22/18 22:59 06:59 14:59 Intake Total 1498.5 1142.8 775.0 Output Total 760 820 260 Balance 738.5 322.8 515.0 Weight 115 lb 9.6 oz Intake: IV 7 Intake, IV Amount 1111.5 822.8 485.0 R subclavian TLC medial 285.0 0 0 port Right Distal Port 800 800 400 Subclavian Right Proximal Port 26.5 22.8 85.0 Subclavian Oral 30 130 Tube Feeding 320 320 160 Other 30 Output: Urine 760 820 260 Urethral (Simmons) 760 820 260 Emesis 0 0 0 Other: # Bowel Movements 0 0 0 - Physical Exam Head: Positive for: Atraumatic, Normocephalic Pupils: Positive for: PERRL Extroacular Muscles: Positive for: EOMI Conjunctiva: Positive for: Normal Ears: Positive for: Normal Mouth: Positive for: Dry, Other (ORAL ETT) Neck: Negative for: JVD Respiratory/Chest: Positive for: Good Air Exchange. Negative for: Respiratory Distress, Accessory Muscle Use Cardiovascular: Positive for: Regular Rate and Rhythm, Normal S1, S2. Negative for: Murmurs, Irregular Rhythm, Bradycardic Abdomen: Positive for: Normal Bowel Sounds. Negative for: Tenderness, Distention, Peritoneal Signs Genitourinary Male: Positive for: Other (Simmons in place) Upper Extremity: Positive for: Normal Inspection. Negative for: Cyanosis, Edema Lower Extremity: Positive for: Normal Inspection. Negative for: Edema Neurological: Negative for: GCS=15 Skin: Positive for: Dry, Normal Color. Negative for: Erythematous Psychiatric: Negative for: Alert, Oriented x 3 - Medications Active Medications: Active Medications Generic Name Dose Route Start Last Admin Trade Name Freq PRN Reason Stop Dose Admin Albuterol/Ipratropium 3 ml 03/18/18 21:15 03/22/18 07:29 Duoneb 3 Mg/0.5 Mg (3 Ml) Ud INH 3 ml RQ6 [facility] Administration Enoxaparin Sodium 30 mg 03/07/18 11:00 03/21/18 10:40 Lovenox SC 30 mg DAILY [facility] Administration Fludrocortisone Acetate 0.1 mg 03/10/18 11:15 03/22/18 09:21 Florinef PO 0.1 mg DAILY [facility] Administration Micafungin Sodium 100 mg/ 100 mls @ 100 mls/hr 03/04/18 01:00 03/22/18 00:34 Sodium Chloride IV 100 mls/hr Q24H [facility] Administration Protocol Meropenem 500 mg/ Sodium 100 mls @ 100 mls/hr 03/04/18 01:15 03/22/18 08:38 Chloride IVPB 100 mls/hr Q8H [facility] Administration Protocol Potassium Phosphate 30 mmole/ 260 mls @ 42.5 mls/hr 03/22/18 08:00 03/22/18 08:36 Dextrose IVPB 03/22/18 14:07 42.5 mls/hr ONCE ONE Administration Methylprednisolone 40 mg 03/17/18 22:00 03/21/18 21:24 Solu-Medrol IVP 40 mg Q12 [facility] Administration Pantoprazole Sodium 40 mg 03/20/18 10:00 03/22/18 09:22 Protonix Inj IVP 40 mg DAILY [facility] Administration Potassium Phos/Sodium Phos 1 pkt 03/22/18 14:00 Neutra-Phos PO TID [facility] - Patient Studies Lab Studies: Microbiology Studies 03/19/18 21:05 Blood Culture - Preliminary Blood-Thru Central Line NO GROWTH AFTER 48 HOURS 03/19/18 21:05 Blood Culture - Preliminary Blood-Thru Central Line NO GROWTH AFTER 48 HOURS 03/19/18 20:35 Gram Stain - Final Trachasp Sputum Culture - Final NORMAL ORAL CHELSY Lab Studies 03/22/18 03/22/18 03/22/18 Range/Units 05:52 05:52 05:38 WBC 17.1 H (4.8-10.8) K/uL RBC 2.91 L (4.40-5.90) Mil/uL Hgb 8.4 L (12.0-18.0) g/dL Hct 26.7 L (35.0-51.0) % MCV 92.0 (80.0-94.0) fL MCH 29.1 (27.0-31.0) pg MCHC 31.6 L (33.0-37.0) g/dL RDW 17.2 H (11.5-14.5) % Plt Count 196 (130-400) K/uL MPV 9.2 (7.2-11.7) fL Neut % (Auto) 96.1 H (50.0-75.0) % Lymph % (Auto) 0.8 L (20.0-40.0) % [place] % (Auto) 3.0 (0.0-10.0) % Eos % (Auto) 0.0 (0.0-4.0) % Baso % (Auto) 0.1 (0.0-2.0) % Neut # (Auto) 16.5 H (1.8-7.0) K/uL Lymph # (Auto) 0.1 L (1.0-4.3) K/uL Kent # (Auto) 0.5 (0.0-0.8) K/uL Eos # (Auto) 0.0 (0.0-0.7) K/uL Baso # (Auto) 0.0 (0.0-0.2) K/uL Neutrophils % (Manual) 92 H (50-75) % Band Neutrophils % 2 (0-2) % Lymphocytes % (Manual) 2 L (20-40) % Monocytes % (Manual) 4 (0-10) % Platelet Estimate Normal (NORMAL) Large Platelets Present Polychromasia Slight Hypochromasia (manual) Slight Poikilocytosis (manual Slight Anisocytosis (manual) Moderate Target Cells Slight Schistocytes Slight Puncture Site pCO2 (35-45) mm/Hg pO2 (80-100) mm/Hg HCO3 (21-28) mmol/L ABG pH (7.35-7.45) ABG Total CO2 (22-28) mmol/L ABG O2 Saturation (95-98) % ABG Base Excess (-2.0-3.0) mmol/L ABG Hemoglobin (11.7-17.4) g/dL ABG Carboxyhemoglobin (0.5-1.5) % POC ABG HHb (Measured) (0.0-5.0) % ABG Methemoglobin (0.0-3.0) % [place] Test A-a O2 Difference mm/Hg Respiratory Index Hgb O2 Saturation (95.0-98.0) % Vent Mode Mechanical Rate FiO2 % Tidal Volume PEEP Sodium 139 (132-148) mmol/L Potassium 3.4 L (3.6-5.2) mmol/L Chloride 102 (98-107) mmol/L Carbon Dioxide 35 H (22-30) mmol/L Anion Gap 5 L (10-20) BUN 21 H (9-20) mg/dL Creatinine 0.3 L (0.8-1.5) mg/dL Est GFR ( Amer) > 60 Est GFR (Non-Af Amer) > 60 POC Glucose (mg/dL) 163 H (65-110) mg/dL Random Glucose 141 H (75-110) mg/dL Calcium 7.6 L (8.6-10.4) mg/dl Phosphorus 2.0 L (2.5-4.5) mg/dL Magnesium 1.8 (1.6-2.3) mg/dL Total Bilirubin 0.9 (0.2-1.3) mg/dL AST 47 (17-59) U/L ALT 193 H (21-72) U/L Alkaline Phosphatase 139 H (38-126) U/L Total Protein 5.1 L (6.3-8.3) g/dL Albumin 2.5 L (3.5-5.0) g/dL Globulin 2.6 (2.2-3.9) gm/dL Albumin/Globulin Ratio 0.9 L (1.0-2.1) 03/22/18 03/21/18 03/21/18 Range/Units 04:40 23:45 20:57 WBC (4.8-10.8) K/uL RBC (4.40-5.90) Mil/uL Hgb (12.0-18.0) g/dL Hct (35.0-51.0) % MCV (80.0-94.0) fL MCH (27.0-31.0) pg MCHC (33.0-37.0) g/dL RDW (11.5-14.5) % Plt Count (130-400) K/uL MPV (7.2-11.7) fL Neut % (Auto) (50.0-75.0) % Lymph % (Auto) (20.0-40.0) % Kent % (Auto) (0.0-10.0) % Eos % (Auto) (0.0-4.0) % Baso % (Auto) (0.0-2.0) % Neut # (Auto) (1.8-7.0) K/uL Lymph # (Auto) (1.0-4.3) K/uL Kent # (Auto) (0.0-0.8) K/uL Eos # (Auto) (0.0-0.7) K/uL Baso # (Auto) (0.0-0.2) K/uL Neutrophils % (Manual) (50-75) % Band Neutrophils % (0-2) % Lymphocytes % (Manual) (20-40) % Monocytes % (Manual) (0-10) % Platelet Estimate (NORMAL) Large Platelets Polychromasia Hypochromasia (manual) Poikilocytosis (manual Anisocytosis (manual) Target Cells Schistocytes Puncture Site Rb pCO2 44 (35-45) mm/Hg pO2 151 H (80-100) mm/Hg HCO3 31.9 H (21-28) mmol/L ABG pH 7.49 H (7.35-7.45) ABG Total CO2 34.9 H (22-28) mmol/L ABG O2 Saturation 99.8 H (95-98) % ABG Base Excess 9.0 H (-2.0-3.0) mmol/L ABG Hemoglobin 13.6 (11.7-17.4) g/dL ABG Carboxyhemoglobin 1.9 H (0.5-1.5) % POC ABG HHb (Measured) 0.2 (0.0-5.0) % ABG Methemoglobin 1.3 (0.0-3.0) % [place] Test Na A-a O2 Difference 79.0 mm/Hg Respiratory Index 0.5 Hgb O2 Saturation 96.5 (95.0-98.0) % Vent Mode Prvc Mechanical Rate 16 FiO2 40.0 % Tidal Volume 450 PEEP 5 Sodium 139 (132-148) mmol/L Potassium 3.4 L (3.6-5.2) mmol/L Chloride 102 (98-107) mmol/L Carbon Dioxide 34 H (22-30) mmol/L Anion Gap 7 L (10-20) BUN 18 (9-20) mg/dL Creatinine 0.3 L (0.8-1.5) mg/dL Est GFR ( Amer) > 60 Est GFR (Non-Af Amer) > 60 POC Glucose (mg/dL) 157 H (65-110) mg/dL Random Glucose 136 H (75-110) mg/dL Calcium 6.8 L (8.6-10.4) mg/dl Phosphorus 2.6 (2.5-4.5) mg/dL Magnesium 1.8 (1.6-2.3) mg/dL Total Bilirubin 1.0 (0.2-1.3) mg/dL AST 56 (17-59) U/L ALT 228 H D (21-72) U/L Alkaline Phosphatase 127 H (38-126) U/L Total Protein 4.9 L (6.3-8.3) g/dL Albumin 2.5 L (3.5-5.0) g/dL Globulin 2.5 (2.2-3.9) gm/dL Albumin/Globulin Ratio 1.0 (1.0-2.1) 03/21/18 03/21/18 Range/Units 17:29 11:36 WBC (4.8-10.8) K/uL RBC (4.40-5.90) Mil/uL Hgb (12.0-18.0) g/dL Hct (35.0-51.0) % MCV (80.0-94.0) fL MCH (27.0-31.0) pg MCHC (33.0-37.0) g/dL RDW (11.5-14.5) % Plt Count (130-400) K/uL MPV (7.2-11.7) fL Neut % (Auto) (50.0-75.0) % Lymph % (Auto) (20.0-40.0) % Kent % (Auto) (0.0-10.0) % Eos % (Auto) (0.0-4.0) % Baso % (Auto) (0.0-2.0) % Neut # (Auto) (1.8-7.0) K/uL Lymph # (Auto) (1.0-4.3) K/uL Kent # (Auto) (0.0-0.8) K/uL Eos # (Auto) (0.0-0.7) K/uL Baso # (Auto) (0.0-0.2) K/uL Neutrophils % (Manual) (50-75) % Band Neutrophils % (0-2) % Lymphocytes % (Manual) (20-40) % Monocytes % (Manual) (0-10) % Platelet Estimate (NORMAL) Large Platelets Polychromasia Hypochromasia (manual) Poikilocytosis (manual Anisocytosis (manual) Target Cells Schistocytes Puncture Site pCO2 (35-45) mm/Hg pO2 (80-100) mm/Hg HCO3 (21-28) mmol/L ABG pH (7.35-7.45) ABG Total CO2 (22-28) mmol/L ABG O2 Saturation (95-98) % ABG Base Excess (-2.0-3.0) mmol/L ABG Hemoglobin (11.7-17.4) g/dL ABG Carboxyhemoglobin (0.5-1.5) % POC ABG HHb (Measured) (0.0-5.0) % ABG Methemoglobin (0.0-3.0) % [place] Test A-a O2 Difference mm/Hg Respiratory Index Hgb O2 Saturation (95.0-98.0) % Vent Mode Mechanical Rate FiO2 % Tidal Volume PEEP Sodium (132-148) mmol/L Potassium (3.6-5.2) mmol/L Chloride (98-107) mmol/L Carbon Dioxide (22-30) mmol/L Anion Gap (10-20) BUN (9-20) mg/dL Creatinine (0.8-1.5) mg/dL Est GFR ( Amer) Est GFR (Non-Af Amer) POC Glucose (mg/dL) 158 H 168 H (65-110) mg/dL Random Glucose (75-110) mg/dL Calcium (8.6-10.4) mg/dl Phosphorus (2.5-4.5) mg/dL Magnesium (1.6-2.3) mg/dL Total Bilirubin (0.2-1.3) mg/dL AST (17-59) U/L ALT (21-72) U/L Alkaline Phosphatase (38-126) U/L Total Protein (6.3-8.3) g/dL Albumin (3.5-5.0) g/dL Globulin (2.2-3.9) gm/dL Albumin/Globulin Ratio (1.0-2.1) Laboratory Results - last 24 hr 03/21/18 03/21/18 03/21/18 11:36 17:29 20:57 WBC RBC Hgb Hct MCV MCH MCHC RDW Plt Count MPV Neut % (Auto) Lymph % (Auto) Kent % (Auto) Eos % (Auto) Baso % (Auto) Neut # (Auto) Lymph # (Auto) [place] # (Auto) Eos # (Auto) Baso # (Auto) Neutrophils % (Manual) Band Neutrophils % Lymphocytes % (Manual) Monocytes % (Manual) Platelet Estimate Large Platelets Polychromasia Hypochromasia (manual) Poikilocytosis (manual Anisocytosis (manual) Target Cells Schistocytes Puncture Site pCO2 pO2 HCO3 ABG pH ABG Total CO2 ABG O2 Saturation ABG Base Excess ABG Hemoglobin ABG Carboxyhemoglobin POC ABG HHb (Measured) ABG Methemoglobin [place] Test A-a O2 Difference Respiratory Index Hgb O2 Saturation Vent Mode Mechanical Rate FiO2 Tidal Volume PEEP Sodium 139 Potassium 3.4 L Chloride 102 Carbon Dioxide 34 H Anion Gap 7 L BUN 18 Creatinine 0.3 L Est GFR ( Amer) > 60 Est GFR (Non-Af Amer) > 60 POC Glucose (mg/dL) 168 H 158 H Random Glucose 136 H Calcium 6.8 L Phosphorus 2.6 Magnesium 1.8 Total Bilirubin 1.0 AST 56 ALT 228 H D Alkaline Phosphatase 127 H Total Protein 4.9 L Albumin 2.5 L Globulin 2.5 Albumin/Globulin Ratio 1.0 03/21/18 03/22/18 03/22/18 23:45 04:40 05:38 WBC RBC Hgb Hct MCV MCH MCHC RDW Plt Count MPV Neut % (Auto) Lymph % (Auto) Kent % (Auto) Eos % (Auto) Baso % (Auto) Neut # (Auto) Lymph # (Auto) [place] # (Auto) Eos # (Auto) Baso # (Auto) Neutrophils % (Manual) Band Neutrophils % Lymphocytes % (Manual) Monocytes % (Manual) Platelet Estimate Large Platelets Polychromasia Hypochromasia (manual) Poikilocytosis (manual Anisocytosis (manual) Target Cells Schistocytes Puncture Site Rb pCO2 44 pO2 151 H HCO3 31.9 H ABG pH 7.49 H ABG Total CO2 34.9 H ABG O2 Saturation 99.8 H ABG Base Excess 9.0 H ABG Hemoglobin 13.6 ABG Carboxyhemoglobin 1.9 H POC ABG HHb (Measured) 0.2 ABG Methemoglobin 1.3 [place] Test Na A-a O2 Difference 79.0 Respiratory Index 0.5 Hgb O2 Saturation 96.5 Vent Mode Prvc Mechanical Rate 16 FiO2 40.0 Tidal Volume 450 PEEP 5 Sodium Potassium Chloride Carbon Dioxide Anion Gap BUN Creatinine Est GFR ( Amer) Est GFR (Non-Af Amer) POC Glucose (mg/dL) 157 H 163 H Random Glucose Calcium Phosphorus Magnesium Total Bilirubin AST ALT Alkaline Phosphatase Total Protein Albumin Globulin Albumin/Globulin Ratio 03/22/18 03/22/18 05:52 05:52 WBC 17.1 H RBC 2.91 L Hgb 8.4 L Hct 26.7 L MCV 92.0 MCH 29.1 MCHC 31.6 L RDW 17.2 H Plt Count 196 MPV 9.2 Neut % (Auto) 96.1 H Lymph % (Auto) 0.8 L [place] % (Auto) 3.0 Eos % (Auto) 0.0 Baso % (Auto) 0.1 Neut # (Auto) 16.5 H Lymph # (Auto) 0.1 L [place] # (Auto) 0.5 Eos # (Auto) 0.0 Baso # (Auto) 0.0 Neutrophils % (Manual) 92 H Band Neutrophils % 2 Lymphocytes % (Manual) 2 L Monocytes % (Manual) 4 Platelet Estimate Normal Large Platelets Present Polychromasia Slight Hypochromasia (manual) Slight Poikilocytosis (manual Slight Anisocytosis (manual) Moderate Target Cells Slight Schistocytes Slight Puncture Site pCO2 pO2 HCO3 ABG pH ABG Total CO2 ABG O2 Saturation ABG Base Excess ABG Hemoglobin ABG Carboxyhemoglobin POC ABG HHb (Measured) ABG Methemoglobin Bereket Test A-a O2 Difference Respiratory Index Hgb O2 Saturation Vent Mode Mechanical Rate FiO2 Tidal Volume PEEP Sodium 139 Potassium 3.4 L Chloride 102 Carbon Dioxide 35 H Anion Gap 5 L BUN 21 H Creatinine 0.3 L Est GFR ( Amer) > 60 Est GFR (Non-Af Amer) > 60 POC Glucose (mg/dL) Random Glucose 141 H Calcium 7.6 L Phosphorus 2.0 L Magnesium 1.8 Total Bilirubin 0.9 AST 47 ALT 193 H Alkaline Phosphatase 139 H Total Protein 5.1 L Albumin 2.5 L Globulin 2.6 Albumin/Globulin Ratio 0.9 L Radiology Impressions: Radiology Impressions Chest X-Ray 03/22/18 07:00 IMPRESSION: Right-sided central venous catheter extends to the SVC. Endotracheal tube terminates approximately 2.5 cm above the mandie. Nasogastric tube extends expected location of the stomach. Diffuse bilateral interstitial thickening and faint haziness throughout the left lung. Biapical pleural thickening. Mild bibasilar atelectasis. Hypoinflation. Osseous demineralization. Degenerative changes. Fingerstick Blood Sugar Results: 163
[2018-03-22] MEDS: Potassium & Sodium Phosphate PO SCH ×2 (14:20→17:27)
--- NOTE | 2018-03-22 14:41 | CP.PCM.PN ---
Subjective - Date & Time of Evaluation Date of Evaluation: 03/22/18 Time of Evaluation: 14:40 - Subjective Subjective: Patient opens eyes on command but appears confused. Physical examination patient is intubated lungs shows bilateral rhonchi is an heart S1-S2 normal rest of the physical findings normal Liver enzymes and cardiac enzymes are elevated Continue ICU protocol for vent and IV antibiotic 5 has consented to PEG and tracheostomy. Post tracheostomy patient will be transferred to LTAC Objective - Vital Signs/Intake and Output Vital Signs (last 24 hours): Temp Pulse Resp BP Pulse Ox 98.2 F 105 H 21 112/60 99 03/22/18 12:00 03/22/18 12:00 03/22/18 12:00 03/22/18 11:49 03/22/18 12:00 Intake and Output: 03/22/18 03/22/18 11:59 23:59 Intake Total 1956.5 82.5 Output Total 1140 130 Balance 816.5 -47.5 - Medications Medications: Current Medications Albuterol/Ipratropium (Duoneb 3 Mg/0.5 Mg (3 Ml) Ud) 3 ml INH RQ6 [facility] Last Admin: 03/22/18 13:00 Dose: 3 ml Enoxaparin Sodium (Lovenox) 30 mg SC DAILY [facility] Last Admin: 03/22/18 10:20 Dose: 30 mg Fludrocortisone Acetate (Florinef) 0.1 mg PO DAILY [facility] Last Admin: 03/22/18 09:21 Dose: 0.1 mg Micafungin Sodium 100 mg/ (Sodium Chloride) 100 mls @ 100 mls/hr IV Q24H [facility]; Protocol Last Admin: 03/22/18 00:34 Dose: 100 mls/hr Meropenem 500 mg/ Sodium (Chloride) 100 mls @ 100 mls/hr IVPB Q8H [facility]; Protocol Last Admin: 03/22/18 08:38 Dose: 100 mls/hr Methylprednisolone (Solu-Medrol) 40 mg IVP Q12 [facility] Last Admin: 03/22/18 10:20 Dose: 40 mg Pantoprazole Sodium (Protonix Inj) 40 mg IVP DAILY [facility] Last Admin: 03/22/18 09:22 Dose: 40 mg Potassium Phos/Sodium Phos (Neutra-Phos) 1 pkt PO TID [facility] Last Admin: 03/22/18 14:20 Dose: 1 pkt - Labs Labs: 03/22/18 05:52 03/22/18 05:52
[2018-03-22 16:14] LABS: INR 1.5
[2018-03-22 16:27] LABS: ALBUMIN 2.5 g/dL (3.5-5.0); ALT/SGPT 166 U/L (21-72); AST/SGOT 42 U/L (17-59); BLOOD UREA NITROGEN 22 mg/dL (9-20); CALCIUM 7.3 mg/dl (8.6-10.4); GFR NON-AFRICAN AMERICAN > 60
--- NOTE | 2018-03-22 18:36 | CP.PCM.PN ---
Subjective - Date & Time of Evaluation Date of Evaluation: 03/22/18 Time of Evaluation: 18:36 - Subjective Subjective: AFEBRILE, INTUBATED. THICK SECRETIONS NO NEW EVENTS OVER NIGHT. LABS REVIEWED . IMPROVING. CASE DISCUSSED [facility] STAFF. PLAN DC IV MYCFUNGIN. CONTINUE IV MERREM FOR NOW. PT FOR TRACHEOSTOMY/PEG Objective - Vital Signs/Intake and Output Vital Signs (last 24 hours): Temp Pulse Resp BP Pulse Ox 99.5 F 98 H 17 94/56 L 99 03/22/18 16:00 03/22/18 18:00 03/22/18 18:00 03/22/18 17:50 03/22/18 18:00 Intake and Output: 03/22/18 03/22/18 06:59 18:59 Intake Total 1736.6 1665.0 Output Total 1140 1030 Balance 596.6 635.0 - Medications Medications: Current Medications Albuterol/Ipratropium (Duoneb 3 Mg/0.5 Mg (3 Ml) Ud) 3 ml INH RQ6 [facility] Last Admin: 03/22/18 13:00 Dose: 3 ml Enoxaparin Sodium (Lovenox) 30 mg SC DAILY [facility] Last Admin: 03/22/18 10:20 Dose: 30 mg Fludrocortisone Acetate (Florinef) 0.1 mg PO DAILY [facility] Last Admin: 03/22/18 09:21 Dose: 0.1 mg Meropenem 500 mg/ Sodium (Chloride) 100 mls @ 100 mls/hr IVPB Q8H [facility]; Protocol Last Admin: 03/22/18 17:27 Dose: 100 mls/hr Methylprednisolone (Solu-Medrol) 40 mg IVP Q12 [facility] Last Admin: 03/22/18 10:20 Dose: 40 mg Pantoprazole Sodium (Protonix Inj) 40 mg IVP DAILY [facility] Last Admin: 03/22/18 09:22 Dose: 40 mg Potassium Phos/Sodium Phos (Neutra-Phos) 1 pkt PO TID [facility] Last Admin: 03/22/18 17:27 Dose: 1 pkt - Labs Labs: 03/22/18 05:52 03/22/18 16:02 PT 16.0 SECONDS (9.7-12.2) H 03/22/18 16:02 INR 1.5 03/22/18 16:02 APTT 31 SECONDS (21-34) 03/22/18 16:02 - Constitutional Appears: No Acute Distress (ON VENTILATOR), Cachectic, Chronically Ill - Head Exam Head Exam: NORMAL INSPECTION - Eye Exam Eye Exam: PERRL - ENT Exam ENT Exam: Mucous Membranes Dry - Neck Exam Neck Exam: Normal Inspection - Respiratory Exam Respiratory Exam: Prolonged Expiratory Phase, Rhonchi - Cardiovascular Exam Cardiovascular Exam: Tachycardia, REGULAR RHYTHM, +S1, +S2 - GI/Abdominal Exam GI & Abdominal Exam: Soft, Normal Bowel Sounds - Extremities Exam Extremities Exam: Normal Capillary Refill. absent: Calf Tenderness, Pedal Edema - Neurological Exam Neurological Exam: Altered, Awake, CN II-XII Intact - Psychiatric Exam Psychiatric exam: Flat Affect - Skin Skin Exam: Normal Color, Warm Assessment and Plan (1) Sepsis associated hypotension Status: Acute (2) Respiratory failure requiring intubation Status: Acute (3) Altered mental status Status: Acute (4) Pneumonia Status: Acute (5) Abdominal pain Status: Acute (6) Cholelithiases Status: Acute - Assessment and Plan (Free Text) Assessment: CONTINUE IV MERREM 500MG IVPB Q8HRLY 03/04/18 DC IV MYCAFUNGIN 100MG IV PB Q 24 HRLY 03/04/18-TO 03/22/18 PATIENT FOR TRACH AND PEG ON SATURDAY. WILL DC ABX AFTER PEG AND TRACHEOSTOMY IF PT STABLE.
[2018-03-23] MEDS: Albuterol-Ipratrop 3 mg / 0.5 (3 ml) UD INH SCH ×4 (01:13→19:56)
[2018-03-23] MEDS: Meropenem 500 MG in Sodium Chloride 0.9% 100 ML IVPB SCH ×3 (01:15→18:00)
[2018-03-23 05:35] LABS: ARTERIAL BLOOD GAS HCO3 33.5 mmol/L (21-28); ARTERIAL BLOOD GAS HEMOGLOBIN 9.1 g/dL (11.7-17.4); ARTERIAL BLOOD GAS O2 SAT 99.4 % (95-98); ARTERIAL BLOOD GAS PCO2 44 mm/Hg (35-45); ARTERIAL BLOOD GAS PH 7.51 (7.35-7.45); ARTERIAL BLOOD GAS PO2 123 mm/Hg (80-100); ARTERIAL BLOOD GAS TCO2 36.5 mmol/L (22-28)
[2018-03-23 06:18] LABS: BASO % 0.1 % (0.0-2.0); HEMOGLOBIN 9.2 g/dL (12.0-18.0); LYMPH # 0.2 K/uL (1.0-4.3); LYMPH % 1.4 % (20.0-40.0); MEAN CELL VOLUME 92.2 fL (80.0-94.0); MEAN CORPUSCULAR HEMOGLOBIN 30.1 pg (27.0-31.0); MEAN CORPUSCULAR HGB CONC 32.6 g/dL (33.0-37.0); MEAN PLATELET VOLUME 9.8 fL (7.2-11.7); MONO # 0.5 K/uL (0.0-0.8); NEUT % 95.5 % (50.0-75.0); NRBC % 0.3 % (0.0-2.0); PLATELET COUNT 204 K/uL (130-400); RBC 3.07 Mil/uL (4.40-5.90); RED CELL DISTRIBUTION WIDTH 17.2 % (11.5-14.5); WHITE BLOOD COUNT 17.8 K/uL (4.8-10.8)
[2018-03-23 06:39] LABS: ALBUMIN 2.5 g/dL (3.5-5.0); ALT/SGPT 143 U/L (21-72); AST/SGOT 43 U/L (17-59); BLOOD UREA NITROGEN 27 mg/dL (9-20); CALCIUM 7.6 mg/dl (8.6-10.4); GFR NON-AFRICAN AMERICAN > 60
[2018-03-23 08:44] LABS: ANISOCYTOSIS MODERATE; BANDS 1 % (0-2); HYPOCHROMIC SLIGHT; LYMPHOCYTE 1 % (20-40); MONOCYTE 6 % (0-10); NEUTROPHIL 90 % (50-75); NUCLEATED RED BLOOD CELL 1 % (0-0); PLATELET ESTIMATE NORMAL (NORMAL); POLYCHROMIC SLIGHT; REACTIVE LYMPHOCYTES 2 % (0-0); TOTAL CELLS COUNTED 100
[2018-03-23 08:45] LABS: LARGE PLATELETS PRESENT
--- NOTE | 2018-03-23 10:00 | CP.PCM.PN ---
Subjective - Date & Time of Evaluation Date of Evaluation: 03/23/18 Time of Evaluation: 09:57 - Subjective Subjective: PT INTUBATED. ROS; UNOBTAINABLE Objective - Vital Signs/Intake and Output Vital Signs (last 24 hours): Temp Pulse Resp BP Pulse Ox 97.9 F 107 H 16 91/62 L 100 03/23/18 08:00 03/23/18 08:00 03/23/18 08:00 03/23/18 07:19 03/23/18 08:00 Intake and Output: 03/23/18 03/23/18 06:59 18:59 Intake Total 580 110 Output Total 1020 210 Balance -440 -100 - Medications Medications: Current Medications Albuterol/Ipratropium (Duoneb 3 Mg/0.5 Mg (3 Ml) Ud) 3 ml INH RQ6 [facility] Last Admin: 03/23/18 07:35 Dose: 3 ml Enoxaparin Sodium (Lovenox) 30 mg SC DAILY [facility] Last Admin: 03/22/18 10:20 Dose: 30 mg Fludrocortisone Acetate (Florinef) 0.1 mg PO DAILY [facility] Last Admin: 03/22/18 09:21 Dose: 0.1 mg Meropenem 500 mg/ Sodium (Chloride) 100 mls @ 100 mls/hr IVPB Q8H [facility]; Protocol Last Admin: 03/23/18 01:15 Dose: 100 mls/hr Methylprednisolone (Solu-Medrol) 40 mg IVP Q12 [facility] Last Admin: 03/22/18 21:43 Dose: 40 mg Pantoprazole Sodium (Protonix Inj) 40 mg IVP DAILY [facility] Last Admin: 03/22/18 09:22 Dose: 40 mg Potassium Phos/Sodium Phos (Neutra-Phos) 1 pkt PO TID [facility] Last Admin: 03/22/18 17:27 Dose: 1 pkt - Labs Labs: 03/23/18 06:10 03/23/18 06:10 PT 16.0 SECONDS (9.7-12.2) H 03/22/18 16:02 INR 1.5 03/22/18 16:02 APTT 31 SECONDS (21-34) 03/22/18 16:02 - Constitutional Appears: Cachectic, Chronically Ill - Head Exam Head Exam: ATRAUMATIC, NORMOCEPHALIC - Eye Exam Eye Exam: EOMI, Normal appearance - ENT Exam Additional comments: ORAL ETT +OGT - Neck Exam Neck Exam: Normal Inspection - Respiratory Exam Respiratory Exam: Rhonchi - Cardiovascular Exam Cardiovascular Exam: Tachycardia, RRR, +S1, +S2 - GI/Abdominal Exam GI & Abdominal Exam: Soft - Rectal Exam Rectal Exam: Deferred - Extremities Exam Extremities Exam: absent: Pedal Edema - Neurological Exam Neurological Exam: Awake. absent: Oriented x3 - Skin Skin Exam: absent: Rash Assessment and Plan (1) Septic shock Status: Acute (2) Altered mental status Status: Acute (3) Pneumonia Status: Acute (4) Respiratory failure requiring intubation Status: Acute (5) COPD exacerbation Status: Acute (6) Cachexia Status: Acute (7) Cholelithiases Status: Acute (8) Alzheimer disease Status: Chronic - Assessment and Plan (Free Text) Assessment: OFF IV PRESSORS., CONT AC SUPPORT, PULM TOILET., NEB BD., ABG NOTED. NOT TOLERATING WEAN. CXR REVIEWED. PLAN FOR TRACH AND PEG. CONT AB. CONT FEEDINGS. PROG POOR. DISCUSSED WITH STAFF AT LENGTH. TIME SPENT 1HR
[2018-03-23] MEDS: Enoxaparin 30 mg Syringe SC SCH (10:05)
[2018-03-23] MEDS: Potassium & Sodium Phosphate PO SCH ×3 (10:05→18:00)
[2018-03-23] MEDS: MethylPREDNISolone 40 mg Vial IVP SCH ×2 (10:05→21:32)
--- NOTE | 2018-03-23 11:44 | RAD ---
HISTORY: R/o infiltrates COMPARISON: Chest x-ray performed 03/22/18 TECHNIQUE: Chest, one view. FINDINGS: Endotracheal tube terminates approximately 8.3 cm above the mandie. The nasogastric tube extends expected location of the stomach. Right-sided central venous catheter extends to the cavoatrial junction. LUNGS: Hypoinflation. Diffuse bilateral interstitial thickening and faint haziness throughout the left lung. Biapical pleural thickening. Mild bibasilar atelectasis. PLEURA: Small bilateral pleural effusions. No definite pneumothorax . CARDIOVASCULAR: Cardiomegaly. Ectatic aorta. Atherosclerotic calcifications. OSSEOUS STRUCTURES: Postsurgical changes of the left humerus with plate and screw fixation. Degenerative changes. Osseous demineralization. VISUALIZED UPPER ABDOMEN: Unremarkable. OTHER FINDINGS: None. IMPRESSION: Endotracheal tube terminates approximately 8.3 cm above the mandie. The nasogastric tube extends expected location of the stomach. Right-sided central venous catheter extends to the cavoatrial junction. Hypoinflation. Diffuse bilateral interstitial thickening and faint haziness throughout the left lung. Biapical pleural thickening. Mild bibasilar atelectasis. Small bilateral pleural effusions.
[2018-03-23] MEDS ORDERED: Potassium Chloride 20 mEq/15 ml LIQ UD PO STA (12:39)
--- NOTE | 2018-03-23 12:40 | CP.PCM.PN ---
Subjective - Date & Time of Evaluation Date of Evaluation: 03/23/18 Time of Evaluation: 12:34 - Subjective Subjective: No events, patient is arosable, follows commands. Objective - Vital Signs/Intake and Output Vital Signs (last 24 hours): Temp Pulse Resp BP Pulse Ox 98.2 F 110 H 30 H 91/58 L 99 03/23/18 12:00 03/23/18 12:19 03/23/18 12:19 03/23/18 12:19 03/23/18 12:19 Intake and Output: 03/23/18 03/23/18 06:59 18:59 Intake Total 580 520 Output Total 1020 490 Balance -440 30 - Medications Medications: Current Medications Albuterol/Ipratropium (Duoneb 3 Mg/0.5 Mg (3 Ml) Ud) 3 ml INH RQ6 [facility] Last Admin: 03/23/18 07:35 Dose: 3 ml Enoxaparin Sodium (Lovenox) 30 mg SC DAILY [facility] Last Admin: 03/23/18 10:05 Dose: 30 mg Fludrocortisone Acetate (Florinef) 0.1 mg PO DAILY [facility] Last Admin: 03/23/18 10:05 Dose: 0.1 mg Meropenem 500 mg/ Sodium (Chloride) 100 mls @ 100 mls/hr IVPB Q8H [facility]; Protocol Last Admin: 03/23/18 10:06 Dose: 100 mls/hr Methylprednisolone (Solu-Medrol) 40 mg IVP Q12 [facility] Last Admin: 03/23/18 10:05 Dose: 40 mg Pantoprazole Sodium (Protonix Inj) 40 mg IVP DAILY [facility] Last Admin: 03/23/18 10:05 Dose: 40 mg Potassium Chloride (Potassium Chloride Oral Soln) 40 meq PO STAT STA Stop: 03/23/18 12:18 Potassium Phos/Sodium Phos (Neutra-Phos) 1 pkt PO TID [facility] Last Admin: 03/23/18 10:05 Dose: 1 pkt - Labs Labs: 03/23/18 06:10 03/23/18 06:10 PT 16.0 SECONDS (9.7-12.2) H 03/22/18 16:02 INR 1.5 03/22/18 16:02 APTT 31 SECONDS (21-34) 03/22/18 16:02 - Additional Findings Additional findings: * HEENT RADHA * Neck Supple * Chest scattered rales and ronchi * CVS regular * PA soft, scaphoid * Ext no edema * Skin normal turgor * [employer] following commands Assessment and Plan - Assessment and Plan (Free Text) Assessment: * Recurrent resp failure with history of lung fibrosis now on vent, awaiting trache and peg * Cachexia * 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 * Dementia * Supportive care, gi/dvt prohylaxis * See orders for detail.
--- NOTE | 2018-03-23 14:35 | RAD ---
HISTORY: Pt vented COMPARISON: Chest x-ray performed 03/23/19 at 703 hr TECHNIQUE: Chest, one view. FINDINGS: Endotracheal tube terminates approximately 3 above the mandie. Right-sided central venous catheter terminates at the expected location SVC. Nasogastric tube extends to the expected location of the stomach. LUNGS: Hypoinflation. Diffuse bilateral interstitial thickening and faint haziness throughout the left lung. Biapical pleural thickening. Mild bibasilar atelectasis. PLEURA: Small bilateral pleural effusions. No definite pneumothorax . CARDIOVASCULAR: Cardiomegaly. Ectatic aorta. Atherosclerotic calcifications. OSSEOUS STRUCTURES: Osseous demineralization. Degenerative changes. Postsurgical fixation of the right humerus. VISUALIZED UPPER ABDOMEN: Unremarkable. OTHER FINDINGS: None. IMPRESSION: Endotracheal tube terminates approximately 3 above the mandie. Right-sided central venous catheter terminates at the expected location SVC. Nasogastric tube extends to the expected location of the stomach. Bilateral diffuse interstitial thickening in faint haziness persists throughout the left lung. Small bilateral pleural effusions. Bibasilar atelectasis.
--- NOTE | 2018-03-23 15:37 | CP.PCM.PN ---
Subjective - Date & Time of Evaluation Date of Evaluation: 03/23/18 Time of Evaluation: 15:37 - Subjective Subjective: Patient opens eyes on command but appears confused. Physical examination patient is intubated lungs shows bilateral rhonchi is an heart S1-S2 normal rest of the physical findings normal Liver enzymes and cardiac enzymes are elevated Continue ICU protocol for vent and IV antibiotic has consented to PEG and tracheostomy. Post tracheostomy patient will be transferred to LTAC Objective - Vital Signs/Intake and Output Vital Signs (last 24 hours): Temp Pulse Resp BP Pulse Ox 98.2 F 109 H 22 98/54 L 100 03/23/18 12:00 03/23/18 15:20 03/23/18 15:20 03/23/18 15:20 03/23/18 15:20 Intake and Output: 03/23/18 03/23/18 11:59 23:59 Intake Total 860 290 Output Total 1040 250 Balance -180 40 - Medications Medications: Current Medications Albuterol/Ipratropium (Duoneb 3 Mg/0.5 Mg (3 Ml) Ud) 3 ml INH RQ6 [facility] Last Admin: 03/23/18 13:34 Dose: 3 ml Enoxaparin Sodium (Lovenox) 30 mg SC DAILY [facility] Last Admin: 03/23/18 10:05 Dose: 30 mg Fludrocortisone Acetate (Florinef) 0.1 mg PO DAILY [facility] Last Admin: 03/23/18 10:05 Dose: 0.1 mg Meropenem 500 mg/ Sodium (Chloride) 100 mls @ 100 mls/hr IVPB Q8H [facility]; Protocol Last Admin: 03/23/18 10:06 Dose: 100 mls/hr Methylprednisolone (Solu-Medrol) 40 mg IVP Q12 [facility] Last Admin: 03/23/18 10:05 Dose: 40 mg Pantoprazole Sodium (Protonix Inj) 40 mg IVP DAILY [facility] Last Admin: 03/23/18 10:05 Dose: 40 mg Potassium Phos/Sodium Phos (Neutra-Phos) 1 pkt PO TID [facility] Last Admin: 03/23/18 14:50 Dose: 1 pkt - Labs Labs: 03/23/18 06:10 03/23/18 06:10 PT 16.0 SECONDS (9.7-12.2) H 03/22/18 16:02 INR 1.5 03/22/18 16:02 APTT 31 SECONDS (21-34) 03/22/18 16:02
[2018-03-23] MEDS ORDERED: HYDROmorphone 0.5 mg/0.5 ml ISec IVP ONE (21:35)
[2018-03-24] MEDS: Meropenem 500 MG in Sodium Chloride 0.9% 100 ML IVPB SCH ×3 (00:15→19:15)
[2018-03-24] MEDS ORDERED: HYDROmorphone 0.5 mg/0.5 ml ISec IVP STA (02:10)
[2018-03-24 05:20] LABS: ARTERIAL BLOOD GAS HCO3 35.3 mmol/L (21-28); ARTERIAL BLOOD GAS O2 SAT 99.9 % (95-98); ARTERIAL BLOOD GAS PCO2 45 mm/Hg (35-45); ARTERIAL BLOOD GAS PH 7.53 (7.35-7.45); ARTERIAL BLOOD GAS PO2 123 mm/Hg (80-100)
[2018-03-24 06:05] LABS: BASO % 0.1 % (0.0-2.0); HEMOGLOBIN 9.8 g/dL (12.0-18.0); LYMPH # 0.3 K/uL (1.0-4.3); LYMPH % 1.5 % (20.0-40.0); MEAN CELL VOLUME 92.1 fL (80.0-94.0); MEAN CORPUSCULAR HEMOGLOBIN 30.6 pg (27.0-31.0); MEAN CORPUSCULAR HGB CONC 33.2 g/dL (33.0-37.0); MEAN PLATELET VOLUME 9.9 fL (7.2-11.7); MONO # 0.7 K/uL (0.0-0.8); MONO % 3.3 % (0.0-10.0); NEUT # 18.8 K/uL (1.8-7.0); NEUT % 95.1 % (50.0-75.0); NRBC % 0.4 % (0.0-2.0); PLATELET COUNT 215 K/uL (130-400); RBC 3.22 Mil/uL (4.40-5.90); RED CELL DISTRIBUTION WIDTH 17.7 % (11.5-14.5); WHITE BLOOD COUNT 19.7 K/uL (4.8-10.8)
[2018-03-24 06:15] LABS: ALBUMIN 2.6 g/dL (3.5-5.0); ALT/SGPT 106 U/L (21-72); AST/SGOT 41 U/L (17-59); BLOOD UREA NITROGEN 31 mg/dL (9-20); CALCIUM 7.6 mg/dl (8.6-10.4); GFR NON-AFRICAN AMERICAN > 60
[2018-03-24 08:33] LABS: ANISOCYTOSIS SLIGHT; HYPOCHROMIC SLIGHT; LYMPHOCYTE 1 % (20-40); MONOCYTE 7 % (0-10); NEUTROPHIL 92 % (50-75); NUCLEATED RED BLOOD CELL 1 % (0-0); PLATELET ESTIMATE NORMAL (NORMAL); POLYCHROMIC SLIGHT; TOTAL CELLS COUNTED 100
--- NOTE | 2018-03-24 08:42 | CP.PCM.PN ---
Subjective - Date & Time of Evaluation Date of Evaluation: 03/24/18 Time of Evaluation: 08:39 - Subjective Subjective: PT INTUBATED. ROS; UNOBTAINABLE Objective - Vital Signs/Intake and Output Vital Signs (last 24 hours): Temp Pulse Resp BP Pulse Ox 98.5 F 120 H 29 H 102/64 100 03/24/18 08:00 03/24/18 08:00 03/24/18 08:00 03/24/18 08:00 03/24/18 08:00 Intake and Output: 03/24/18 03/24/18 06:59 18:59 Intake Total 635 90 Output Total 1130 100 Balance -495 -10 - Medications Medications: Current Medications Enoxaparin Sodium (Lovenox) 30 mg SC DAILY [facility] Last Admin: 03/23/18 10:05 Dose: 30 mg Fludrocortisone Acetate (Florinef) 0.1 mg PO DAILY [facility] Last Admin: 03/23/18 10:05 Dose: 0.1 mg Meropenem 500 mg/ Sodium (Chloride) 100 mls @ 100 mls/hr IVPB Q8H [facility]; Protocol Last Admin: 03/24/18 00:15 Dose: 100 mls/hr Methylprednisolone (Solu-Medrol) 40 mg IVP Q12 [facility] Last Admin: 03/23/18 21:32 Dose: 40 mg Pantoprazole Sodium (Protonix Inj) 40 mg IVP DAILY [facility] Last Admin: 03/23/18 10:05 Dose: 40 mg Potassium Phos/Sodium Phos (Neutra-Phos) 1 pkt PO TID [facility] Last Admin: 03/23/18 18:00 Dose: 1 pkt - Labs Labs: 03/24/18 05:52 03/24/18 05:52 PT 16.0 SECONDS (9.7-12.2) H 03/22/18 16:02 INR 1.5 03/22/18 16:02 APTT 31 SECONDS (21-34) 03/22/18 16:02 - Constitutional Appears: Cachectic, Chronically Ill - Head Exam Head Exam: ATRAUMATIC, NORMOCEPHALIC - Eye Exam Eye Exam: Normal appearance - ENT Exam Additional comments: ORAL +ETT +OGT - Neck Exam Neck Exam: Normal Inspection - Respiratory Exam Respiratory Exam: Rhonchi. absent: Accessory Muscle Use - Cardiovascular Exam Cardiovascular Exam: Tachycardia, RRR, +S1, +S2 - GI/Abdominal Exam GI & Abdominal Exam: Soft - Rectal Exam Rectal Exam: Deferred - Extremities Exam Extremities Exam: absent: Pedal Edema - Neurological Exam Additional comments: OPENS EYES - Skin Skin Exam: absent: Rash Assessment and Plan (1) Septic shock Status: Acute (2) Altered mental status Status: Acute (3) Pneumonia Status: Acute (4) Respiratory failure requiring intubation Status: Acute (5) COPD exacerbation Status: Acute (6) Cachexia Status: Acute (7) Cholelithiases Status: Acute (8) Alzheimer disease Status: Chronic - Assessment and Plan (Free Text) Assessment: AFEBRILE ON IV AB. CONT AC SUPPORT., PULM TOILET., ABG NOTED. MONITOR O2 SAT. CXR REVIEWED. MONITOR HR. ON FEEDINGS. PLAN FOR TRACH AND PEG PER SURG. PROG POOR. DISCUSSED WITH STAFF AT LENGTH. TIME SPENT 1HR
--- NOTE | 2018-03-24 08:53 | RAD ---
Date of service: 03/24/2018 HISTORY: Intubated COMPARISON: Portable chest 03/23/2018. FINDINGS: LUNGS: Endotracheal and nasogastric tubes do not appear significantly changed in position as well as right central venous line. Chronic interstitial pulmonary changes are again appreciated greater the left and right sides, particularly in the periphery, with potential improving infiltrate at the left base and the remainder chronic. No acute infiltrate right lung or atelectasis. PLEURA: No pneumothorax apparent. Mild left pleural effusion suggested. None is seen at the right. CARDIOVASCULAR: No aortic atherosclerotic calcification present. Normal cardiac size. No pulmonary vascular congestion. OSSEOUS STRUCTURES: No significant abnormalities. VISUALIZED UPPER ABDOMEN: Normal. OTHER FINDINGS: None. IMPRESSION: Mild improvement in medial left basilar infiltrate with resolution of right basilar atelectasis. Underlying chronic interstitial changes are reiterated greater the left and right chest once again with interval mild left pleural effusion evident.
[2018-03-24] MEDS: MethylPREDNISolone 40 mg Vial IVP SCH ×2 (09:11→10:17)
[2018-03-24] MEDS: Potassium & Sodium Phosphate PO SCH ×3 (09:12→17:27)
[2018-03-24] MEDS: Enoxaparin 30 mg Syringe SC SCH (09:12)
--- NOTE | 2018-03-24 11:57 | CP.CCUPN ---
<Merry Farias - Last Filed: 03/24/18 11:49> CCU Subjective - Physician Review Subjective (Free Text): Critical Care Progress Note for Dr. Rodas's service Patient seen and examined at bedside. 12 point ROS limited as patient intubated. Awake and alert CCU Objective - Vital Signs / Intake & Output Vital Signs (Last 4 hours): Vital Signs Temp Pulse Resp BP Pulse Ox 03/24/18 11:01 126 H 30 H 100/71 100 03/24/18 11:00 122 H 19 100 03/24/18 10:00 126 H 31 H 109/71 100 03/24/18 09:00 123 H 27 H 106/74 100 03/24/18 08:00 98.5 F 120 H 29 H 102/64 100 Intake and Output (Last 8hrs): Intake & Output 03/23/18 03/24/18 03/24/18 22:59 06:59 14:59 Intake Total 590 455 380 Output Total 570 780 255 Balance 20 -325 125 Weight 113 lb 6.4 oz Intake: Intake, IV Amount 120 135 120 R subclavian TLC medial 0 0 0 port Right Distal Port 120 135 120 Subclavian Right Proximal Port 0 0 0 Subclavian Oral 150 Tube Feeding 320 320 200 Other 60 Output: Urine 570 780 255 Urethral (Simmons) 570 780 255 Emesis 0 0 0 Other: # Bowel Movements 0 0 0 - Physical Exam Head: Positive for: Atraumatic, Normocephalic Pupils: Positive for: PERRL Extroacular Muscles: Positive for: EOMI Conjunctiva: Positive for: Normal Ears: Positive for: Normal Mouth: Positive for: Dry, Other (ORAL ETT) Neck: Negative for: JVD Respiratory/Chest: Positive for: Good Air Exchange. Negative for: Respiratory Distress, Accessory Muscle Use Cardiovascular: Positive for: Regular Rate and Rhythm, Normal S1, S2. Negative for: Murmurs, Irregular Rhythm, Bradycardic Abdomen: Positive for: Normal Bowel Sounds. Negative for: Tenderness, Distention, Peritoneal Signs Genitourinary Male: Positive for: Other (Simmons in place) Upper Extremity: Positive for: Normal Inspection. Negative for: Cyanosis, Edema Lower Extremity: Positive for: Normal Inspection. Negative for: Edema Neurological: Negative for: GCS=15 Skin: Positive for: Dry, Normal Color. Negative for: Erythematous Psychiatric: Negative for: Alert, Oriented x 3 - Medications Active Medications: Active Medications Generic Name Dose Route Start Last Admin Trade Name Slavaq PRN Reason Stop Dose Admin Enoxaparin Sodium 30 mg 03/07/18 11:00 03/24/18 09:12 Lovenox SC 30 mg DAILY VELMA Administration Fludrocortisone Acetate 0.1 mg 03/10/18 11:15 03/24/18 09:13 Florinef PO 0.1 mg DAILY VELMA Administration Meropenem 500 mg/ Sodium 100 mls @ 100 mls/hr 03/04/18 01:15 03/24/18 09:10 Chloride IVPB 100 mls/hr Q8H VELMA Administration Protocol Methylprednisolone 40 mg 03/24/18 10:00 03/24/18 10:17 Solu-Medrol IVP Not Given DAILY [facility] Pantoprazole Sodium 40 mg 03/25/18 06:00 Protonix Susp PO 0600 VELMA Potassium Phos/Sodium Phos 1 pkt 03/22/18 14:00 03/24/18 09:12 Neutra-Phos PO 1 pkt TID VELMA Administration - Patient Studies Lab Studies: Microbiology Studies 03/19/18 21:05 Blood Culture - Preliminary Blood-Thru Central Line NO GROWTH AFTER 4 DAYS 03/19/18 21:05 Blood Culture - Preliminary Blood-Thru Central Line NO GROWTH AFTER 4 DAYS Lab Studies 03/24/18 03/24/18 03/24/18 Range/Units 11:30 05:52 05:52 WBC 19.7 H (4.8-10.8) K/uL RBC 3.22 L (4.40-5.90) Mil/uL Hgb 9.8 L (12.0-18.0) g/dL Hct 29.6 L (35.0-51.0) % MCV 92.1 (80.0-94.0) fL MCH 30.6 (27.0-31.0) pg MCHC 33.2 (33.0-37.0) g/dL RDW 17.7 H (11.5-14.5) % Plt Count 215 (130-400) K/uL MPV 9.9 (7.2-11.7) fL Neut % (Auto) 95.1 H (50.0-75.0) % Lymph % (Auto) 1.5 L (20.0-40.0) % [place] % (Auto) 3.3 (0.0-10.0) % Eos % (Auto) 0.0 (0.0-4.0) % Baso % (Auto) 0.1 (0.0-2.0) % Neut # (Auto) 18.8 H (1.8-7.0) K/uL Lymph # (Auto) 0.3 L (1.0-4.3) K/uL [place] # (Auto) 0.7 (0.0-0.8) K/uL Eos # (Auto) 0.0 (0.0-0.7) K/uL Baso # (Auto) 0.0 (0.0-0.2) K/uL Neutrophils % (Manual) 92 H (50-75) % Lymphocytes % (Manual) 1 L (20-40) % Monocytes % (Manual) 7 (0-10) % Nucleated RBC % 1 H (0-0) % Platelet Estimate Normal (NORMAL) Polychromasia Slight Hypochromasia (manual) Slight Anisocytosis (manual) Slight Puncture Site pCO2 (35-45) mm/Hg pO2 (80-100) mm/Hg HCO3 (21-28) mmol/L ABG pH (7.35-7.45) ABG Total CO2 (22-28) mmol/L ABG O2 Saturation (95-98) % ABG Base Excess (-2.0-3.0) mmol/L [place] Test ABG Potassium (3.6-5.2) mmol/L A-a O2 Difference mm/Hg Respiratory Index Sodium 143 (132-148) mmol/l Chloride 105 (98-107) mmol/L Glucose (75-110) mg/dl Lactate (0.7-2.1) mmol/L Vent Mode Mechanical Rate FiO2 % Tidal Volume PEEP Potassium 3.9 (3.6-5.2) mmol/L Carbon Dioxide 36 H (22-30) mmol/L Anion Gap 7 L (10-20) BUN 31 H (9-20) mg/dL Creatinine 0.3 L (0.8-1.5) mg/dL Est GFR ( Amer) > 60 Est GFR (Non-Af Amer) > 60 POC Glucose (mg/dL) 190 H (65-110) mg/dL Random Glucose 167 H D (75-110) mg/dL Calcium 7.6 L (8.6-10.4) mg/dl Phosphorus 3.5 (2.5-4.5) mg/dL Magnesium 2.0 (1.6-2.3) mg/dL Total Bilirubin 0.9 (0.2-1.3) mg/dL AST 41 (17-59) U/L ALT 106 H D (21-72) U/L Alkaline Phosphatase 185 H D (38-126) U/L Total Protein 5.2 L (6.3-8.3) g/dL Albumin 2.6 L (3.5-5.0) g/dL Globulin 2.6 (2.2-3.9) gm/dL Albumin/Globulin Ratio 1.0 (1.0-2.1) Arterial Blood Potassium (3.6-5.2) mmol/L 03/24/18 03/24/18 03/23/18 Range/Units 05:14 04:38 23:06 WBC (4.8-10.8) K/uL RBC (4.40-5.90) Mil/uL Hgb (12.0-18.0) g/dL Hct (35.0-51.0) % MCV (80.0-94.0) fL MCH (27.0-31.0) pg MCHC (33.0-37.0) g/dL RDW (11.5-14.5) % Plt Count (130-400) K/uL MPV (7.2-11.7) fL Neut % (Auto) (50.0-75.0) % Lymph % (Auto) (20.0-40.0) % [place] % (Auto) (0.0-10.0) % Eos % (Auto) (0.0-4.0) % Baso % (Auto) (0.0-2.0) % Neut # (Auto) (1.8-7.0) K/uL Lymph # (Auto) (1.0-4.3) K/uL [place] # (Auto) (0.0-0.8) K/uL Eos # (Auto) (0.0-0.7) K/uL Baso # (Auto) (0.0-0.2) K/uL Neutrophils % (Manual) (50-75) % Lymphocytes % (Manual) (20-40) % Monocytes % (Manual) (0-10) % Nucleated RBC % (0-0) % Platelet Estimate (NORMAL) Polychromasia Hypochromasia (manual) Anisocytosis (manual) Puncture Site Rb pCO2 45 (35-45) mm/Hg pO2 123 H (80-100) mm/Hg HCO3 35.3 H (21-28) mmol/L ABG pH 7.53 H (7.35-7.45) ABG Total CO2 39.0 H (22-28) mmol/L ABG O2 Saturation 99.9 H (95-98) % ABG Base Excess 13.2 H (-2.0-3.0) mmol/L [place] Test Na ABG Potassium 3.8 (3.6-5.2) mmol/L A-a O2 Difference 106.0 mm/Hg Respiratory Index 0.9 Sodium 145.0 (132-148) mmol/l Chloride 111.0 H (98-107) mmol/L Glucose 168 H (75-110) mg/dl Lactate 1.1 (0.7-2.1) mmol/L Vent Mode Prvc Mechanical Rate 16 FiO2 40.0 % Tidal Volume 350 PEEP 5 Potassium (3.6-5.2) mmol/L Carbon Dioxide (22-30) mmol/L Anion Gap (10-20) BUN (9-20) mg/dL Creatinine (0.8-1.5) mg/dL Est GFR ( Amer) Est GFR (Non-Af Amer) POC Glucose (mg/dL) 193 H 153 H (65-110) mg/dL Random Glucose (75-110) mg/dL Calcium (8.6-10.4) mg/dl Phosphorus (2.5-4.5) mg/dL Magnesium (1.6-2.3) mg/dL Total Bilirubin (0.2-1.3) mg/dL AST (17-59) U/L ALT (21-72) U/L Alkaline Phosphatase (38-126) U/L Total Protein (6.3-8.3) g/dL Albumin (3.5-5.0) g/dL Globulin (2.2-3.9) gm/dL Albumin/Globulin Ratio (1.0-2.1) Arterial Blood Potassium 3.8 (3.6-5.2) mmol/L 03/23/18 03/23/18 Range/Units 18:06 11:30 WBC (4.8-10.8) K/uL RBC (4.40-5.90) Mil/uL Hgb (12.0-18.0) g/dL Hct (35.0-51.0) % MCV (80.0-94.0) fL MCH (27.0-31.0) pg MCHC (33.0-37.0) g/dL RDW (11.5-14.5) % Plt Count (130-400) K/uL MPV (7.2-11.7) fL Neut % (Auto) (50.0-75.0) % Lymph % (Auto) (20.0-40.0) % [place] % (Auto) (0.0-10.0) % Eos % (Auto) (0.0-4.0) % Baso % (Auto) (0.0-2.0) % Neut # (Auto) (1.8-7.0) K/uL Lymph # (Auto) (1.0-4.3) K/uL [place] # (Auto) (0.0-0.8) K/uL Eos # (Auto) (0.0-0.7) K/uL Baso # (Auto) (0.0-0.2) K/uL Neutrophils % (Manual) (50-75) % Lymphocytes % (Manual) (20-40) % Monocytes % (Manual) (0-10) % Nucleated RBC % (0-0) % Platelet Estimate (NORMAL) Polychromasia Hypochromasia (manual) Anisocytosis (manual) Puncture Site pCO2 (35-45) mm/Hg pO2 (80-100) mm/Hg HCO3 (21-28) mmol/L ABG pH (7.35-7.45) ABG Total CO2 (22-28) mmol/L ABG O2 Saturation (95-98) % ABG Base Excess (-2.0-3.0) mmol/L [place] Test ABG Potassium (3.6-5.2) mmol/L A-a O2 Difference mm/Hg Respiratory Index Sodium (132-148) mmol/l Chloride (98-107) mmol/L Glucose (75-110) mg/dl Lactate (0.7-2.1) mmol/L Vent Mode Mechanical Rate FiO2 % Tidal Volume PEEP Potassium (3.6-5.2) mmol/L Carbon Dioxide (22-30) mmol/L Anion Gap (10-20) BUN (9-20) mg/dL Creatinine (0.8-1.5) mg/dL Est GFR ( Amer) Est GFR (Non-Af Amer) POC Glucose (mg/dL) 155 H 125 H (65-110) mg/dL Random Glucose (75-110) mg/dL Calcium (8.6-10.4) mg/dl Phosphorus (2.5-4.5) mg/dL Magnesium (1.6-2.3) mg/dL Total Bilirubin (0.2-1.3) mg/dL AST (17-59) U/L ALT (21-72) U/L Alkaline Phosphatase (38-126) U/L Total Protein (6.3-8.3) g/dL Albumin (3.5-5.0) g/dL Globulin (2.2-3.9) gm/dL Albumin/Globulin Ratio (1.0-2.1) Arterial Blood Potassium (3.6-5.2) mmol/L Laboratory Results - last 24 hr 03/23/18 03/23/18 03/23/18 11:30 18:06 23:06 WBC RBC Hgb Hct MCV MCH MCHC RDW Plt Count MPV Neut % (Auto) Lymph % (Auto) [place] % (Auto) Eos % (Auto) Baso % (Auto) Neut # (Auto) Lymph # (Auto) [place] # (Auto) Eos # (Auto) Baso # (Auto) Neutrophils % (Manual) Lymphocytes % (Manual) Monocytes % (Manual) Nucleated RBC % Platelet Estimate Polychromasia Hypochromasia (manual) Anisocytosis (manual) Puncture Site pCO2 pO2 HCO3 ABG pH ABG Total CO2 ABG O2 Saturation ABG Base Excess [place] Test ABG Potassium A-a O2 Difference Respiratory Index Sodium Chloride Glucose Lactate Vent Mode Mechanical Rate FiO2 Tidal Volume PEEP Potassium Carbon Dioxide Anion Gap BUN Creatinine Est GFR ( Amer) Est GFR (Non-Af Amer) POC Glucose (mg/dL) 125 H 155 H 153 H Random Glucose Calcium Phosphorus Magnesium Total Bilirubin AST ALT Alkaline Phosphatase Total Protein Albumin Globulin Albumin/Globulin Ratio Arterial Blood Potassium 03/24/18 03/24/18 03/24/18 04:38 05:14 05:52 WBC 19.7 H RBC 3.22 L Hgb 9.8 L Hct 29.6 L MCV 92.1 MCH 30.6 MCHC 33.2 RDW 17.7 H Plt Count 215 MPV 9.9 Neut % (Auto) 95.1 H Lymph % (Auto) 1.5 L [place] % (Auto) 3.3 Eos % (Auto) 0.0 Baso % (Auto) 0.1 Neut # (Auto) 18.8 H Lymph # (Auto) 0.3 L [place] # (Auto) 0.7 Eos # (Auto) 0.0 Baso # (Auto) 0.0 Neutrophils % (Manual) 92 H Lymphocytes % (Manual) 1 L Monocytes % (Manual) 7 Nucleated RBC % 1 H Platelet Estimate Normal Polychromasia Slight Hypochromasia (manual) Slight Anisocytosis (manual) Slight Puncture Site Rb pCO2 45 pO2 123 H HCO3 35.3 H ABG pH 7.53 H ABG Total CO2 39.0 H ABG O2 Saturation 99.9 H ABG Base Excess 13.2 H [place] Test Na ABG Potassium 3.8 A-a O2 Difference 106.0 Respiratory Index 0.9 Sodium 145.0 Chloride 111.0 H Glucose 168 H Lactate 1.1 Vent Mode Prvc Mechanical Rate 16 FiO2 40.0 Tidal Volume 350 PEEP 5 Potassium Carbon Dioxide Anion Gap BUN Creatinine Est GFR ( Amer) Est GFR (Non-Af Amer) POC Glucose (mg/dL) 193 H Random Glucose Calcium Phosphorus Magnesium Total Bilirubin AST ALT Alkaline Phosphatase Total Protein Albumin Globulin Albumin/Globulin Ratio Arterial Blood Potassium 3.8 03/24/18 03/24/18 05:52 11:30 WBC RBC Hgb Hct MCV MCH MCHC RDW Plt Count MPV Neut % (Auto) Lymph % (Auto) [place] % (Auto) Eos % (Auto) Baso % (Auto) Neut # (Auto) Lymph # (Auto) [place] # (Auto) Eos # (Auto) Baso # (Auto) Neutrophils % (Manual) Lymphocytes % (Manual) Monocytes % (Manual) Nucleated RBC % Platelet Estimate Polychromasia Hypochromasia (manual) Anisocytosis (manual) Puncture Site pCO2 pO2 HCO3 ABG pH ABG Total CO2 ABG O2 Saturation ABG Base Excess [place] Test ABG Potassium A-a O2 Difference Respiratory Index Sodium 143 Chloride 105 Glucose Lactate Vent Mode Mechanical Rate FiO2 Tidal Volume PEEP Potassium 3.9 Carbon Dioxide 36 H Anion Gap 7 L BUN 31 H Creatinine 0.3 L Est GFR ( Amer) > 60 Est GFR (Non-Af Amer) > 60 POC Glucose (mg/dL) 190 H Random Glucose 167 H D Calcium 7.6 L Phosphorus 3.5 Magnesium 2.0 Total Bilirubin 0.9 AST 41 ALT 106 H D Alkaline Phosphatase 185 H D Total Protein 5.2 L Albumin 2.6 L Globulin 2.6 Albumin/Globulin Ratio 1.0 Arterial Blood Potassium Radiology Impressions: Radiology Impressions Chest X-Ray 03/23/18 13:18 IMPRESSION: Endotracheal tube terminates approximately 3 above the mandie. Right-sided central venous catheter terminates at the expected location SVC. Nasogastric tube extends to the expected location of the stomach. Bilateral diffuse interstitial thickening in faint haziness persists throughout the left lung. Small bilateral pleural effusions. Bibasilar atelectasis. Chest X-Ray 03/24/18 06:50 IMPRESSION: Mild improvement in medial left basilar infiltrate with resolution of right basilar atelectasis. Underlying chronic interstitial changes are reiterated greater the left and right chest once again with interval mild left pleural effusion evident. Fingerstick Blood Sugar Results: 193 Review of Systems - Review of Systems Systems not reviewed;Unavailable: Intubated Critical Care Progress Note - Ventilator Checklist Head of Bed 30 Degrees: Yes Daily Sedation Vacation: Yes Daily Assessment of Readiness to Wean: Yes Daily Spontaneous Breathing Trial: Yes PUD Prophalyxis: Yes DVT Prophylaxis: Yes Oral Care with Chlorhexidine Gluconate {CHG}: Yes - Vent Settings TIDAL VOLUME:: 350 RESP RATE:: 16 FIO2:: 40 PEEP:: 5 - Prophylaxis GI Prophylaxis GI: PPI - Prophylaxis DVT Prophylaxis DVT: Lovenox Assessment/Plan - Assessment and Plan (Free Text) Assessment: Patient is a 72 yo male w/PMH of Alzheimer, COPD, CHF, and arthritis admitted for hypoxic resp failure. Patient was intubated prior to transfer to ICU on 03-19 with subclavian TLC placed on 03/19 for hypotension. Neuro not awake, alert, oriented; no sedation; AMS likely 2/2 hypoxia respiratory failure Pulm Intubated on Ventilator Solumedrol CV Fludrocortisone Cardizem- will be held in setting of low blood pressure GI no active issues Protonix Renal Neutrophos Repeat CMP in AM ID + cx for yeast and e coli on 03/02 + cx for yeast on 03/1203/19/18 repeat cx negative Meropenem (started on 03/04) DVT ppx: Lovenox-held for procedure in AM GI ppx: Protonix Disposition: Plan for trach and peg tomorrow and then possible downgrade from ICU PGY-1 [facility] d/w Dr. Galarza <Desmond Galarza - Last Filed: 03/24/18 20:34> CCU Subjective - Physician Review Events Since Last Encounter (Free Text): 03/24/18 20:33 The patient is a 72-year-old male with lung fibrosis, sepsis. Admitted now again with respiratory insufficiency. Rounds made in the morning, with the resident. I agree with resident note. For possible tracheostomy and feeding tube tomorrow. Patient is a long-term ventilator dependent. CCU Objective - Vital Signs / Intake & Output Vital Signs (Last 4 hours): Vital Signs Temp Pulse Resp BP Pulse Ox 03/24/18 20:00 97.5 F L 130 H 33 H 101/75 100 03/24/18 19:53 131 H 23 98/73 L 100 03/24/18 19:20 132 H 39 H 114/84 100 03/24/18 19:01 132 H 37 H 102/74 100 03/24/18 18:01 126 H 35 H 99/72 L 100 03/24/18 18:00 124 H 29 H 100 03/24/18 17:01 125 H 33 H 106/75 100 03/24/18 17:00 120 H 30 H 99 Intake and Output (Last 8hrs): Intake & Output 03/24/18 03/24/18 03/24/18 06:59 14:59 22:59 Intake Total 455 575 240 Output Total 780 425 210 Balance -325 150 30 Weight 113 lb 6.4 oz Intake: Intake, IV Amount 135 135 20 R subclavian TLC medial 0 0 port Right Distal Port 135 135 20 Subclavian Right Proximal Port 0 0 Subclavian Tube Feeding 320 320 160 Other 120 60 Output: Urine 780 425 210 Urethral (Simmons) 780 425 210 Emesis 0 0 Other: # Bowel Movements 0 0 1 - Medications Active Medications: Active Medications Generic Name Dose Route Start Last Admin Trade Name Kell PRN Reason Stop Dose Admin Enoxaparin Sodium 30 mg 03/07/18 11:00 03/24/18 09:12 Lovenox SC 30 mg DAILY VELMA Administration Fludrocortisone Acetate 0.1 mg 03/10/18 11:15 03/24/18 09:13 Florinef PO 0.1 mg DAILY VELMA Administration Meropenem 500 mg/ Sodium 100 mls @ 100 mls/hr 03/04/18 01:15 03/24/18 19:15 Chloride IVPB 100 mls/hr Q8H VELMA Administration Protocol Methylprednisolone 40 mg 03/24/18 10:00 03/24/18 10:17 Solu-Medrol IVP Not Given DAILY VELMA Pantoprazole Sodium 40 mg 03/25/18 06:00 Protonix Susp PO 0600 VELMA Potassium Phos/Sodium Phos 1 pkt 03/22/18 14:00 03/24/18 17:27 Neutra-Phos PO 1 pkt TID VELMA Administration - Patient Studies Lab Studies: Microbiology Studies 03/19/18 21:05 Blood Culture - Preliminary Blood-Thru Central Line NO GROWTH AFTER 4 DAYS 03/19/18 21:05 Blood Culture - Preliminary Blood-Thru Central Line NO GROWTH AFTER 4 DAYS Lab Studies 03/24/18 03/24/18 03/24/18 Range/Units 17:47 11:30 05:52 WBC (4.8-10.8) K/uL RBC (4.40-5.90) Mil/uL Hgb (12.0-18.0) g/dL Hct (35.0-51.0) % MCV (80.0-94.0) fL MCH (27.0-31.0) pg MCHC (33.0-37.0) g/dL RDW (11.5-14.5) % Plt Count (130-400) K/uL MPV (7.2-11.7) fL Neut % (Auto) (50.0-75.0) % Lymph % (Auto) (20.0-40.0) % [place] % (Auto) (0.0-10.0) % Eos % (Auto) (0.0-4.0) % Baso % (Auto) (0.0-2.0) % Neut # (Auto) (1.8-7.0) K/uL Lymph # (Auto) (1.0-4.3) K/uL [place] # (Auto) (0.0-0.8) K/uL Eos # (Auto) (0.0-0.7) K/uL Baso # (Auto) (0.0-0.2) K/uL Neutrophils % (Manual) (50-75) % Lymphocytes % (Manual) (20-40) % Monocytes % (Manual) (0-10) % Nucleated RBC % (0-0) % Platelet Estimate (NORMAL) Polychromasia Hypochromasia (manual) Anisocytosis (manual) Puncture Site pCO2 (35-45) mm/Hg pO2 (80-100) mm/Hg HCO3 (21-28) mmol/L ABG pH (7.35-7.45) ABG Total CO2 (22-28) mmol/L ABG O2 Saturation (95-98) % ABG Base Excess (-2.0-3.0) mmol/L [place] Test ABG Potassium (3.6-5.2) mmol/L A-a O2 Difference mm/Hg Respiratory Index Sodium 143 (132-148) mmol/l Chloride 105 (98-107) mmol/L Glucose (75-110) mg/dl Lactate (0.7-2.1) mmol/L Vent Mode Mechanical Rate FiO2 % Tidal Volume PEEP Potassium 3.9 (3.6-5.2) mmol/L Carbon Dioxide 36 H (22-30) mmol/L Anion Gap 7 L (10-20) BUN 31 H (9-20) mg/dL Creatinine 0.3 L (0.8-1.5) mg/dL Est GFR ( Amer) > 60 Est GFR (Non-Af Amer) > 60 POC Glucose (mg/dL) 230 H 190 H (65-110) mg/dL Random Glucose 167 H D (75-110) mg/dL Calcium 7.6 L (8.6-10.4) mg/dl Phosphorus 3.5 (2.5-4.5) mg/dL Magnesium 2.0 (1.6-2.3) mg/dL Total Bilirubin 0.9 (0.2-1.3) mg/dL AST 41 (17-59) U/L ALT 106 H D (21-72) U/L Alkaline Phosphatase 185 H D (38-126) U/L Total Protein 5.2 L (6.3-8.3) g/dL Albumin 2.6 L (3.5-5.0) g/dL Globulin 2.6 (2.2-3.9) gm/dL Albumin/Globulin Ratio 1.0 (1.0-2.1) Arterial Blood Potassium (3.6-5.2) mmol/L 03/24/18 03/24/18 03/24/18 Range/Units 05:52 05:14 04:38 WBC 19.7 H (4.8-10.8) K/uL RBC 3.22 L (4.40-5.90) Mil/uL Hgb 9.8 L (12.0-18.0) g/dL Hct 29.6 L (35.0-51.0) % MCV 92.1 (80.0-94.0) fL MCH 30.6 (27.0-31.0) pg MCHC 33.2 (33.0-37.0) g/dL RDW 17.7 H (11.5-14.5) % Plt Count 215 (130-400) K/uL MPV 9.9 (7.2-11.7) fL Neut % (Auto) 95.1 H (50.0-75.0) % Lymph % (Auto) 1.5 L (20.0-40.0) % [place] % (Auto) 3.3 (0.0-10.0) % Eos % (Auto) 0.0 (0.0-4.0) % Baso % (Auto) 0.1 (0.0-2.0) % Neut # (Auto) 18.8 H (1.8-7.0) K/uL Lymph # (Auto) 0.3 L (1.0-4.3) K/uL [place] # (Auto) 0.7 (0.0-0.8) K/uL Eos # (Auto) 0.0 (0.0-0.7) K/uL Baso # (Auto) 0.0 (0.0-0.2) K/uL Neutrophils % (Manual) 92 H (50-75) % Lymphocytes % (Manual) 1 L (20-40) % Monocytes % (Manual) 7 (0-10) % Nucleated RBC % 1 H (0-0) % Platelet Estimate Normal (NORMAL) Polychromasia Slight Hypochromasia (manual) Slight Anisocytosis (manual) Slight Puncture Site Rb pCO2 45 (35-45) mm/Hg pO2 123 H (80-100) mm/Hg HCO3 35.3 H (21-28) mmol/L ABG pH 7.53 H (7.35-7.45) ABG Total CO2 39.0 H (22-28) mmol/L ABG O2 Saturation 99.9 H (95-98) % ABG Base Excess 13.2 H (-2.0-3.0) mmol/L [place] Test Na ABG Potassium 3.8 (3.6-5.2) mmol/L A-a O2 Difference 106.0 mm/Hg Respiratory Index 0.9 Sodium 145.0 (132-148) mmol/l Chloride 111.0 H (98-107) mmol/L Glucose 168 H (75-110) mg/dl Lactate 1.1 (0.7-2.1) mmol/L Vent Mode Prvc Mechanical Rate 16 FiO2 40.0 % Tidal Volume 350 PEEP 5 Potassium (3.6-5.2) mmol/L Carbon Dioxide (22-30) mmol/L Anion Gap (10-20) BUN (9-20) mg/dL Creatinine (0.8-1.5) mg/dL Est GFR ( Amer) Est GFR (Non-Af Amer) POC Glucose (mg/dL) 193 H (65-110) mg/dL Random Glucose (75-110) mg/dL Calcium (8.6-10.4) mg/dl Phosphorus (2.5-4.5) mg/dL Magnesium (1.6-2.3) mg/dL Total Bilirubin (0.2-1.3) mg/dL AST (17-59) U/L ALT (21-72) U/L Alkaline Phosphatase (38-126) U/L Total Protein (6.3-8.3) g/dL Albumin (3.5-5.0) g/dL Globulin (2.2-3.9) gm/dL Albumin/Globulin Ratio (1.0-2.1) Arterial Blood Potassium 3.8 (3.6-5.2) mmol/L 03/23/18 Range/Units 23:06 WBC (4.8-10.8) K/uL RBC (4.40-5.90) Mil/uL Hgb (12.0-18.0) g/dL Hct (35.0-51.0) % MCV (80.0-94.0) fL MCH (27.0-31.0) pg MCHC (33.0-37.0) g/dL RDW (11.5-14.5) % Plt Count (130-400) K/uL MPV (7.2-11.7) fL Neut % (Auto) (50.0-75.0) % Lymph % (Auto) (20.0-40.0) % [place] % (Auto) (0.0-10.0) % Eos % (Auto) (0.0-4.0) % Baso % (Auto) (0.0-2.0) % Neut # (Auto) (1.8-7.0) K/uL Lymph # (Auto) (1.0-4.3) K/uL [place] # (Auto) (0.0-0.8) K/uL Eos # (Auto) (0.0-0.7) K/uL Baso # (Auto) (0.0-0.2) K/uL Neutrophils % (Manual) (50-75) % Lymphocytes % (Manual) (20-40) % Monocytes % (Manual) (0-10) % Nucleated RBC % (0-0) % Platelet Estimate (NORMAL) Polychromasia Hypochromasia (manual) Anisocytosis (manual) Puncture Site pCO2 (35-45) mm/Hg pO2 (80-100) mm/Hg HCO3 (21-28) mmol/L ABG pH (7.35-7.45) ABG Total CO2 (22-28) mmol/L ABG O2 Saturation (95-98) % ABG Base Excess (-2.0-3.0) mmol/L [place] Test ABG Potassium (3.6-5.2) mmol/L A-a O2 Difference mm/Hg Respiratory Index Sodium (132-148) mmol/l Chloride (98-107) mmol/L Glucose (75-110) mg/dl Lactate (0.7-2.1) mmol/L Vent Mode Mechanical Rate FiO2 % Tidal Volume PEEP Potassium (3.6-5.2) mmol/L Carbon Dioxide (22-30) mmol/L Anion Gap (10-20) BUN (9-20) mg/dL Creatinine (0.8-1.5) mg/dL Est GFR ( Amer) Est GFR (Non-Af Amer) POC Glucose (mg/dL) 153 H (65-110) mg/dL Random Glucose (75-110) mg/dL Calcium (8.6-10.4) mg/dl Phosphorus (2.5-4.5) mg/dL Magnesium (1.6-2.3) mg/dL Total Bilirubin (0.2-1.3) mg/dL AST (17-59) U/L ALT (21-72) U/L Alkaline Phosphatase (38-126) U/L Total Protein (6.3-8.3) g/dL Albumin (3.5-5.0) g/dL Globulin (2.2-3.9) gm/dL Albumin/Globulin Ratio (1.0-2.1) Arterial Blood Potassium (3.6-5.2) mmol/L Laboratory Results - last 24 hr 03/23/18 03/24/18 03/24/18 23:06 04:38 05:14 WBC RBC Hgb Hct MCV MCH MCHC RDW Plt Count MPV Neut % (Auto) Lymph % (Auto) [place] % (Auto) Eos % (Auto) Baso % (Auto) Neut # (Auto) Lymph # (Auto) [place] # (Auto) Eos # (Auto) Baso # (Auto) Neutrophils % (Manual) Lymphocytes % (Manual) Monocytes % (Manual) Nucleated RBC % Platelet Estimate Polychromasia Hypochromasia (manual) Anisocytosis (manual) Puncture Site Rb pCO2 45 pO2 123 H HCO3 35.3 H ABG pH 7.53 H ABG Total CO2 39.0 H ABG O2 Saturation 99.9 H ABG Base Excess 13.2 H [place] Test Na ABG Potassium 3.8 A-a O2 Difference 106.0 Respiratory Index 0.9 Sodium 145.0 Chloride 111.0 H Glucose 168 H Lactate 1.1 Vent Mode Prvc Mechanical Rate 16 FiO2 40.0 Tidal Volume 350 PEEP 5 Potassium Carbon Dioxide Anion Gap BUN Creatinine Est GFR ( Amer) Est GFR (Non-Af Amer) POC Glucose (mg/dL) 153 H 193 H Random Glucose Calcium Phosphorus Magnesium Total Bilirubin AST ALT Alkaline Phosphatase Total Protein Albumin Globulin Albumin/Globulin Ratio Arterial Blood Potassium 3.8 03/24/18 03/24/18 03/24/18 05:52 05:52 11:30 WBC 19.7 H RBC 3.22 L Hgb 9.8 L Hct 29.6 L MCV 92.1 MCH 30.6 MCHC 33.2 RDW 17.7 H Plt Count 215 MPV 9.9 Neut % (Auto) 95.1 H Lymph % (Auto) 1.5 L [place] % (Auto) 3.3 Eos % (Auto) 0.0 Baso % (Auto) 0.1 Neut # (Auto) 18.8 H Lymph # (Auto) 0.3 L [place] # (Auto) 0.7 Eos # (Auto) 0.0 Baso # (Auto) 0.0 Neutrophils % (Manual) 92 H Lymphocytes % (Manual) 1 L Monocytes % (Manual) 7 Nucleated RBC % 1 H Platelet Estimate Normal Polychromasia Slight Hypochromasia (manual) Slight Anisocytosis (manual) Slight Puncture Site pCO2 pO2 HCO3 ABG pH ABG Total CO2 ABG O2 Saturation ABG Base Excess [place] Test ABG Potassium A-a O2 Difference Respiratory Index Sodium 143 Chloride 105 Glucose Lactate Vent Mode Mechanical Rate FiO2 Tidal Volume PEEP Potassium 3.9 Carbon Dioxide 36 H Anion Gap 7 L BUN 31 H Creatinine 0.3 L Est GFR ( Amer) > 60 Est GFR (Non-Af Amer) > 60 POC Glucose (mg/dL) 190 H Random Glucose 167 H D Calcium 7.6 L Phosphorus 3.5 Magnesium 2.0 Total Bilirubin 0.9 AST 41 ALT 106 H D Alkaline Phosphatase 185 H D Total Protein 5.2 L Albumin 2.6 L Globulin 2.6 Albumin/Globulin Ratio 1.0 Arterial Blood Potassium 03/24/18 17:47 WBC RBC Hgb Hct MCV MCH MCHC RDW Plt Count MPV Neut % (Auto) Lymph % (Auto) [place] % (Auto) Eos % (Auto) Baso % (Auto) Neut # (Auto) Lymph # (Auto) [place] # (Auto) Eos # (Auto) Baso # (Auto) Neutrophils % (Manual) Lymphocytes % (Manual) Monocytes % (Manual) Nucleated RBC % Platelet Estimate Polychromasia Hypochromasia (manual) Anisocytosis (manual) Puncture Site pCO2 pO2 HCO3 ABG pH ABG Total CO2 ABG O2 Saturation ABG Base Excess Bereket Test ABG Potassium A-a O2 Difference Respiratory Index Sodium Chloride Glucose Lactate Vent Mode Mechanical Rate FiO2 Tidal Volume PEEP Potassium Carbon Dioxide Anion Gap BUN Creatinine Est GFR ( Amer) Est GFR (Non-Af Amer) POC Glucose (mg/dL) 230 H Random Glucose Calcium Phosphorus Magnesium Total Bilirubin AST ALT Alkaline Phosphatase Total Protein Albumin Globulin Albumin/Globulin Ratio Arterial Blood Potassium Radiology Impressions: Radiology Impressions Chest X-Ray 03/24/18 06:50
--- NOTE | 2018-03-24 14:00 | CP.PCM.PN ---
Subjective - Date & Time of Evaluation Date of Evaluation: 03/24/18 Time of Evaluation: 14:00 - Subjective Subjective: Patient opens eyes on command but appears confused. Physical examination patient is intubated lungs shows bilateral rhonchi is an heart S1-S2 normal rest of the physical findings normal Liver enzymes and cardiac enzymes are elevated Continue ICU protocol for vent and IV antibiotic has consented to PEG and tracheostomy. Post tracheostomy patient will be transferred to LTAC Objective - Vital Signs/Intake and Output Vital Signs (last 24 hours): Temp Pulse Resp BP Pulse Ox 98.5 F 119 H 20 104/69 100 03/24/18 12:00 03/24/18 13:00 03/24/18 13:00 03/24/18 13:00 03/24/18 13:00 Intake and Output: 03/24/18 03/24/18 11:59 23:59 Intake Total 790 150 Output Total 935 120 Balance -145 30 - Medications Medications: Current Medications Enoxaparin Sodium (Lovenox) 30 mg SC DAILY [facility] Last Admin: 03/24/18 09:12 Dose: 30 mg Fludrocortisone Acetate (Florinef) 0.1 mg PO DAILY [facility] Last Admin: 03/24/18 09:13 Dose: 0.1 mg Meropenem 500 mg/ Sodium (Chloride) 100 mls @ 100 mls/hr IVPB Q8H [facility]; Protocol Last Admin: 03/24/18 09:10 Dose: 100 mls/hr Methylprednisolone (Solu-Medrol) 40 mg IVP DAILY [facility] Last Admin: 03/24/18 10:17 Dose: Not Given Pantoprazole Sodium (Protonix Susp) 40 mg PO 0600 [facility] Potassium Phos/Sodium Phos (Neutra-Phos) 1 pkt PO TID [facility] Last Admin: 03/24/18 13:16 Dose: 1 pkt - Labs Labs: 03/24/18 05:52 03/24/18 05:52 PT 16.0 SECONDS (9.7-12.2) H 03/22/18 16:02 INR 1.5 03/22/18 16:02 APTT 31 SECONDS (21-34) 03/22/18 16:02
--- NOTE | 2018-03-24 18:22 | CP.PCM.PN ---
Subjective - Date & Time of Evaluation Date of Evaluation: 03/24/18 Time of Evaluation: 18:22 - Subjective Subjective: AFEBRILE, INTUBATED.OPENS EYES. ROS : NA NO NEW EVENTS OVER NIGHT. CASE DISCUSSED WITH STAFF. PLAN CONTINUE IV MERREM FOR NOW. SUCTION PRN PT FOR TRACHEOSTOMY/PEG IN AM Objective - Vital Signs/Intake and Output Vital Signs (last 24 hours): Temp Pulse Resp BP Pulse Ox 97.5 F L 126 H 35 H 99/72 L 100 03/24/18 16:00 03/24/18 18:01 03/24/18 18:01 03/24/18 18:01 03/24/18 18:01 Intake and Output: 03/24/18 03/24/18 06:59 18:59 Intake Total 635 815 Output Total 1130 635 Balance -495 180 - Medications Medications: Current Medications Enoxaparin Sodium (Lovenox) 30 mg SC DAILY [facility] Last Admin: 03/24/18 09:12 Dose: 30 mg Fludrocortisone Acetate (Florinef) 0.1 mg PO DAILY [facility] Last Admin: 03/24/18 09:13 Dose: 0.1 mg Meropenem 500 mg/ Sodium (Chloride) 100 mls @ 100 mls/hr IVPB Q8H [facility]; Protocol Last Admin: 03/24/18 09:10 Dose: 100 mls/hr Methylprednisolone (Solu-Medrol) 40 mg IVP DAILY [facility] Last Admin: 03/24/18 10:17 Dose: Not Given Pantoprazole Sodium (Protonix Susp) 40 mg PO 0600 [facility] Potassium Phos/Sodium Phos (Neutra-Phos) 1 pkt PO TID [facility] Last Admin: 03/24/18 17:27 Dose: 1 pkt - Labs Labs: 03/24/18 05:52 03/24/18 05:52 PT 16.0 SECONDS (9.7-12.2) H 03/22/18 16:02 INR 1.5 03/22/18 16:02 APTT 31 SECONDS (21-34) 03/22/18 16:02 - Constitutional Appears: No Acute Distress, Cachectic, Chronically Ill - Head Exam Head Exam: NORMAL INSPECTION - Eye Exam Eye Exam: EOMI, PERRL - ENT Exam ENT Exam: Normal Oropharynx - Respiratory Exam Respiratory Exam: Rhonchi (B/L), NORMAL BREATHING PATTERN - Cardiovascular Exam Cardiovascular Exam: REGULAR RHYTHM, +S1, +S2 - GI/Abdominal Exam GI & Abdominal Exam: Soft, Normal Bowel Sounds. absent: Tenderness - Extremities Exam Extremities Exam: Normal Capillary Refill, Pedal Edema. absent: Calf Tenderness - Neurological Exam Neurological Exam: Altered, Awake - Psychiatric Exam Psychiatric exam: Flat Affect - Skin Skin Exam: Normal Color, Warm Assessment and Plan (1) Sepsis associated hypotension Status: Acute (2) Respiratory failure requiring intubation Status: Acute (3) Altered mental status Status: Acute (4) Pneumonia Status: Acute (5) Abdominal pain Status: Acute (6) Cholelithiases Status: Acute - Assessment and Plan (Free Text) Plan: CONTINUE IV MERREM 500MG IVPB Q8HRLY 03/04/18 OFF IV MYCAFUNGIN 100MG IV PB Q 24 HRLY 03/04/18-TO 03/22/18 PATIENT FOR TRACH AND PEG IN AM PER STAFF DISCUSSIONS WILL DC ABX AFTER PEG AND TRACHEOSTOMY IF PT STABLE.
[2018-03-24] MEDS: HYDROmorphone 0.5 mg/0.5 ml ISec IVP PRN (22:37)
[2018-03-24] MEDS ORDERED: Sodium Chloride 0.9% 500 ML IV ONE (23:41)
[2018-03-25] MEDS: Meropenem 500 MG in Sodium Chloride 0.9% 100 ML IVPB SCH ×3 (00:45→18:00)
[2018-03-25] MEDS ORDERED: Sodium Chloride 0.9% 500 ML IV ONE (05:13)
[2018-03-25 05:46] LABS: ARTERIAL BLOOD GAS HCO3 31.8 mmol/L (21-28); ARTERIAL BLOOD GAS O2 SAT 99.6 % (95-98); ARTERIAL BLOOD GAS PCO2 41 mm/Hg (35-45); ARTERIAL BLOOD GAS PH 7.51 (7.35-7.45); ARTERIAL BLOOD GAS PO2 98 mm/Hg (80-100)
[2018-03-25] MEDS: Pantoprazole 40 mg Susp UD PO SCH (05:55)
[2018-03-25 06:25] LABS: BASO % 0.1 % (0.0-2.0); HEMOGLOBIN 9.4 g/dL (12.0-18.0); LYMPH # 1.6 K/uL (1.0-4.3); LYMPH % 6.6 % (20.0-40.0); MEAN CELL VOLUME 93.7 fL (80.0-94.0); MEAN CORPUSCULAR HEMOGLOBIN 29.7 pg (27.0-31.0); MEAN CORPUSCULAR HGB CONC 31.7 g/dL (33.0-37.0); MEAN PLATELET VOLUME 10.3 fL (7.2-11.7); MONO # 0.7 K/uL (0.0-0.8); MONO % 3.2 % (0.0-10.0); NEUT # 21.2 K/uL (1.8-7.0); NEUT % 90.1 % (50.0-75.0); PLATELET COUNT 195 K/uL (130-400); RBC 3.15 Mil/uL (4.40-5.90); RED CELL DISTRIBUTION WIDTH 17.8 % (11.5-14.5); WHITE BLOOD COUNT 23.6 K/uL (4.8-10.8)
[2018-03-25 06:44] LABS: ALBUMIN 2.4 g/dL (3.5-5.0); ALT/SGPT 83 U/L (21-72); AST/SGOT 38 U/L (17-59); BLOOD UREA NITROGEN 39 mg/dL (9-20); CALCIUM 7.7 mg/dl (8.6-10.4); GFR NON-AFRICAN AMERICAN > 60
--- NOTE | 2018-03-25 08:01 | CP.PCM.PN ---
Subjective - Date & Time of Evaluation Date of Evaluation: 03/25/18 Time of Evaluation: 07:30 - Subjective Subjective: Preop Evaluation: Evaluated pt in the morning before scheduled tracheostomy, peg tube insertion. Informed by nurses and residents that pt was acutely hypotensive overnight. Multiple readings including 67/45 at 0442 76/56 at 0311 78/53 at 2247. Pt is also tachycardic w HR in 120s with WBCs in 20s. Would consider septic shock vs hypovolemia. Pt should be optimized and hemodynamically stable before trach and peg placement. Objective - Vital Signs/Intake and Output Vital Signs (last 24 hours): Temp Pulse Resp BP Pulse Ox 97.8 F 113 H 16 89/61 L 100 03/25/18 04:00 03/25/18 07:00 03/25/18 07:00 03/25/18 06:40 03/25/18 07:00 Intake and Output: 03/25/18 03/25/18 06:59 18:59 Intake Total 1420 0 Output Total 585 60 Balance 835 -60 - Medications Medications: Current Medications Enoxaparin Sodium (Lovenox) 30 mg SC DAILY [facility] Last Admin: 03/24/18 09:12 Dose: 30 mg Fludrocortisone Acetate (Florinef) 0.1 mg PO DAILY [facility] Last Admin: 03/24/18 09:13 Dose: 0.1 mg Hydromorphone HCl (Dilaudid) 0.5 mg IVP Q6H PRN PRN Reason: Pain, moderate (4-7) Last Admin: 03/24/18 22:37 Dose: 0.25 mg Meropenem 500 mg/ Sodium (Chloride) 100 mls @ 100 mls/hr IVPB Q8H [facility]; Protocol Last Admin: 03/25/18 00:45 Dose: 100 mls/hr Methylprednisolone (Solu-Medrol) 40 mg IVP DAILY [facility] Last Admin: 03/24/18 10:17 Dose: Not Given Pantoprazole Sodium (Protonix Susp) 40 mg PO 0600 [facility] Last Admin: 03/25/18 05:55 Dose: Not Given Potassium Phos/Sodium Phos (Neutra-Phos) 1 pkt PO TID [facility] Last Admin: 03/24/18 17:27 Dose: 1 pkt - Labs Labs: 03/25/18 06:10 03/25/18 06:10 PT 16.0 SECONDS (9.7-12.2) H 03/22/18 16:02 INR 1.5 03/22/18 16:02 APTT 31 SECONDS (21-34) 03/22/18 16:02
--- NOTE | 2018-03-25 08:09 | CP.PCM.PN ---
Subjective - Date & Time of Evaluation Date of Evaluation: 03/25/18 Time of Evaluation: 08:07 - Subjective Subjective: Surgery Progress Note for Dr. Woodard 72M seen and evaluated at bedside this morning. Patient had episodes of hypotension last night, was given a 500cc bolus and remained SBP 80-90s. Patient continues to be intubated with PEEP5, FiO2 40%. Afebrile. ROS unobtainable secondary to clinical condition. Objective - Vital Signs/Intake and Output Vital Signs (last 24 hours): Temp Pulse Resp BP Pulse Ox 97.8 F 113 H 16 89/61 L 100 03/25/18 04:00 03/25/18 07:00 03/25/18 07:00 03/25/18 06:40 03/25/18 07:00 Intake and Output: 03/25/18 03/25/18 06:59 18:59 Intake Total 1420 0 Output Total 585 60 Balance 835 -60 - Medications Medications: Current Medications Enoxaparin Sodium (Lovenox) 30 mg SC DAILY [facility] Last Admin: 03/24/18 09:12 Dose: 30 mg Fludrocortisone Acetate (Florinef) 0.1 mg PO DAILY [facility] Last Admin: 03/24/18 09:13 Dose: 0.1 mg Hydromorphone HCl (Dilaudid) 0.5 mg IVP Q6H PRN PRN Reason: Pain, moderate (4-7) Last Admin: 03/24/18 22:37 Dose: 0.25 mg Meropenem 500 mg/ Sodium (Chloride) 100 mls @ 100 mls/hr IVPB Q8H [facility]; Protocol Last Admin: 03/25/18 00:45 Dose: 100 mls/hr Potassium Chloride (Potassium Chloride 20 Meq/100 Ml) 20 meq in 100 mls @ 50 mls/hr IVPB Q1H [facility] Stop: 03/25/18 10:14 Methylprednisolone (Solu-Medrol) 40 mg IVP DAILY [facility] Last Admin: 03/24/18 10:17 Dose: Not Given Pantoprazole Sodium (Protonix Susp) 40 mg PO 0600 [facility] Last Admin: 03/25/18 05:55 Dose: Not Given Potassium Phos/Sodium Phos (Neutra-Phos) 1 pkt PO TID [facility] Last Admin: 01/07/19 17:27 Dose: 1 pkt - Labs Labs: 03/25/18 06:10 03/25/18 06:10 PT 16.0 SECONDS (9.7-12.2) H 03/22/18 16:02 INR 1.5 03/22/18 16:02 APTT 31 SECONDS (21-34) 03/22/18 16:02 - Constitutional Appears: Well, Non-toxic, No Acute Distress - Head Exam Head Exam: ATRAUMATIC, NORMAL INSPECTION, NORMOCEPHALIC - Eye Exam Eye Exam: EOMI - ENT Exam ENT Exam: Mucous Membranes Dry - Respiratory Exam Additional comments: intubated - Cardiovascular Exam Cardiovascular Exam: Tachycardia - GI/Abdominal Exam GI & Abdominal Exam: Soft, Normal Bowel Sounds. absent: Tenderness - Neurological Exam Neurological Exam: Awake Assessment and Plan - Assessment and Plan (Free Text) Assessment: 72M w/ respiratory failure, intubated and mechanically ventilated Plan: Patient was scheduled for Trach/PEG this morning however anesthesia cancelled case secondary to hypotensive episodes overnight Will medically optimize and reschedule for 03/27 Continue to monitor vitals and respiratory status D/w Dr. Vance Hernandez PGY1
[2018-03-25 08:32] LABS: BANDS 5 % (0-2); LYMPHOCYTE 10 % (20-40); MONOCYTE 3 % (0-10); MYELOCYTE 1 % (0-0); NEUTROPHIL 81 % (50-75); NUCLEATED RED BLOOD CELL 1 % (0-0); PLATELET ESTIMATE NORMAL (NORMAL); TOTAL CELLS COUNTED 100
[2018-03-25 08:33] LABS: ANISOCYTOSIS SLIGHT; HYPOCHROMIC SLIGHT; POLYCHROMIC SLIGHT
--- NOTE | 2018-03-25 08:37 | CP.CCUPN ---
<Merry Farias - Last Filed: 03/25/18 10:40> CCU Subjective - Physician Review Events Since Last Encounter (Free Text): 03/25/18 08:38 overnight periods of hypotension and tachycardia. Dilaudid given. Patient received boluses of normal saline for low blood pressure Subjective (Free Text): 03/25/18 08:38 Critical Care Progress Note for Dr. Jara's service Patient seen and examined at bedside. Patient awake to verbal and tactile stimuli. Limited ROS as patient intubated. CCU Objective - Vital Signs / Intake & Output Vital Signs (Last 4 hours): Vital Signs Temp Pulse Resp BP Pulse Ox 03/25/18 08:10 118 H 16 82/45 L 100 03/25/18 08:00 97.3 F L 116 H 16 100 03/25/18 07:40 119 H 27 H 93/41 L 100 03/25/18 07:24 117 H 22 80/61 L 100 03/25/18 07:09 118 H 22 83/59 L 100 03/25/18 07:00 113 H 16 100 03/25/18 06:40 119 H 27 H 89/61 L 100 03/25/18 06:09 116 H 27 H 92/52 L 100 03/25/18 05:39 114 H 20 84/59 L 100 03/25/18 05:20 118 H 16 76/45 L 97 03/25/18 04:58 120 H 26 H 95/65 L 03/25/18 04:50 125 H 21 80/45 L 94 L 03/25/18 04:42 119 H 17 67/45 L 95 Intake and Output (Last 8hrs): Intake & Output 03/24/18 03/25/18 03/25/18 22:59 06:59 14:59 Intake Total 450 1210 0 Output Total 355 440 90 Balance 95 770 -90 Weight 121 lb 6.4 oz Intake: Intake, IV Amount 20 1100 R subclavian TLC medial 1100 port Right Distal Port 20 Subclavian Tube Feeding 320 60 0 Other 110 50 Output: Urine 355 440 90 Urethral (Simmons) 355 440 90 Other: # Bowel Movements 0 - Physical Exam Head: Positive for: Atraumatic, Normocephalic Pupils: Positive for: PERRL Extroacular Muscles: Positive for: EOMI Conjunctiva: Positive for: Normal Mouth: Positive for: Dry, Other (ORAL ETT) Neck: Negative for: JVD Respiratory/Chest: Positive for: Good Air Exchange. Negative for: Respiratory Distress, Accessory Muscle Use Cardiovascular: Positive for: Regular Rate and Rhythm, Normal S1, S2. Negative for: Murmurs, Irregular Rhythm, Bradycardic Abdomen: Positive for: Normal Bowel Sounds. Negative for: Tenderness, Distention, Peritoneal Signs Genitourinary Male: Positive for: Other (Simmons in place) Upper Extremity: Positive for: Normal Inspection. Negative for: Cyanosis, Edema Lower Extremity: Positive for: Normal Inspection. Negative for: Edema Neurological: Negative for: GCS=15 Skin: Positive for: Dry, Normal Color. Negative for: Erythematous Psychiatric: Positive for: Alert - Medications Active Medications: Active Medications Generic Name Dose Route Start Last Admin Trade Name Freq PRN Reason Stop Dose Admin Enoxaparin Sodium 30 mg 03/07/18 11:00 03/24/18 09:12 Lovenox SC 30 mg DAILY VELMA Administration Fludrocortisone Acetate 0.1 mg 03/10/18 11:15 03/24/18 09:13 Florinef PO 0.1 mg DAILY VELMA Administration Hydromorphone HCl 0.5 mg 03/24/18 22:16 03/24/18 22:37 Dilaudid IVP 0.25 mg Q6H PRN Administration Pain, moderate (4-7) Meropenem 500 mg/ Sodium 100 mls @ 100 mls/hr 03/04/18 01:15 03/25/18 00:45 Chloride IVPB 100 mls/hr Q8H VELMA Administration Protocol Potassium Chloride 20 meq in 100 mls @ 50 mls/hr 03/25/18 09:00 Potassium Chloride 20 Meq/100 Ml IVPB 03/25/18 10:59 Q1H VELMA Methylprednisolone 40 mg 03/24/18 10:00 03/24/18 10:17 Solu-Medrol IVP Not Given DAILY VELMA Pantoprazole Sodium 40 mg 03/25/18 06:00 03/25/18 05:55 Protonix Susp PO Not Given 0600 VELMA Potassium Phos/Sodium Phos 1 pkt 03/22/18 14:00 03/24/18 17:27 Neutra-Phos PO 1 pkt TID VELMA Administration - Patient Studies Lab Studies: Microbiology Studies 03/19/18 21:05 Blood Culture - Final Blood-Thru Central Line NO GROWTH AFTER 5 DAYS Gram Stain - Final TEST NOT PERFORMED 03/19/18 21:05 Blood Culture - Final Blood-Thru Central Line NO GROWTH AFTER 5 DAYS Gram Stain - Final TEST NOT PERFORMED Lab Studies 03/25/18 03/25/18 03/25/18 Range/Units 06:10 06:10 05:31 WBC 23.6 H (4.8-10.8) K/uL RBC 3.15 L (4.40-5.90) Mil/uL Hgb 9.4 L (12.0-18.0) g/dL Hct 29.5 L (35.0-51.0) % MCV 93.7 (80.0-94.0) fL MCH 29.7 (27.0-31.0) pg MCHC 31.7 L (33.0-37.0) g/dL RDW 17.8 H (11.5-14.5) % Plt Count 195 (130-400) K/uL MPV 10.3 (7.2-11.7) fL Neut % (Auto) 90.1 H (50.0-75.0) % Lymph % (Auto) 6.6 L (20.0-40.0) % [place] % (Auto) 3.2 (0.0-10.0) % Eos % (Auto) 0.0 (0.0-4.0) % Baso % (Auto) 0.1 (0.0-2.0) % Neut # (Auto) 21.2 H (1.8-7.0) K/uL Lymph # (Auto) 1.6 (1.0-4.3) K/uL [place] # (Auto) 0.7 (0.0-0.8) K/uL Eos # (Auto) 0.0 (0.0-0.7) K/uL Baso # (Auto) 0.0 (0.0-0.2) K/uL Neutrophils % (Manual) (50-75) % Lymphocytes % (Manual) (20-40) % Monocytes % (Manual) (0-10) % Nucleated RBC % (0-0) % Platelet Estimate (NORMAL) Polychromasia Hypochromasia (manual) Anisocytosis (manual) Puncture Site pCO2 (35-45) mm/Hg pO2 (80-100) mm/Hg HCO3 (21-28) mmol/L ABG pH (7.35-7.45) ABG Total CO2 (22-28) mmol/L ABG O2 Saturation (95-98) % ABG Base Excess (-2.0-3.0) mmol/L [place] Test ABG Potassium (3.6-5.2) mmol/L A-a O2 Difference mm/Hg Respiratory Index Sodium 144 (132-148) mmol/l Chloride 107 (98-107) mmol/L Glucose (75-110) mg/dl Lactate (0.7-2.1) mmol/L Vent Mode Mechanical Rate FiO2 % Tidal Volume PEEP Potassium 3.4 L (3.6-5.2) mmol/L Carbon Dioxide 35 H (22-30) mmol/L Anion Gap 5 L (10-20) BUN 39 H (9-20) mg/dL Creatinine 0.4 L (0.8-1.5) mg/dL Est GFR ( Amer) > 60 Est GFR (Non-Af Amer) > 60 POC Glucose (mg/dL) 136 H (65-110) mg/dL Random Glucose 121 H D (75-110) mg/dL Calcium 7.7 L (8.6-10.4) mg/dl Phosphorus 3.9 (2.5-4.5) mg/dL Magnesium 2.0 (1.6-2.3) mg/dL Total Bilirubin 1.2 (0.2-1.3) mg/dL AST 38 (17-59) U/L ALT 83 H D (21-72) U/L Alkaline Phosphatase 158 H (38-126) U/L Total Protein 4.8 L (6.3-8.3) g/dL Albumin 2.4 L (3.5-5.0) g/dL Globulin 2.5 (2.2-3.9) gm/dL Albumin/Globulin Ratio 1.0 (1.0-2.1) Arterial Blood Potassium (3.6-5.2) mmol/L 03/25/18 03/24/18 03/24/18 Range/Units 04:58 23:14 17:47 WBC (4.8-10.8) K/uL RBC (4.40-5.90) Mil/uL Hgb (12.0-18.0) g/dL Hct (35.0-51.0) % MCV (80.0-94.0) fL MCH (27.0-31.0) pg MCHC (33.0-37.0) g/dL RDW (11.5-14.5) % Plt Count (130-400) K/uL MPV (7.2-11.7) fL Neut % (Auto) (50.0-75.0) % Lymph % (Auto) (20.0-40.0) % [place] % (Auto) (0.0-10.0) % Eos % (Auto) (0.0-4.0) % Baso % (Auto) (0.0-2.0) % Neut # (Auto) (1.8-7.0) K/uL Lymph # (Auto) (1.0-4.3) K/uL [place] # (Auto) (0.0-0.8) K/uL Eos # (Auto) (0.0-0.7) K/uL Baso # (Auto) (0.0-0.2) K/uL Neutrophils % (Manual) (50-75) % Lymphocytes % (Manual) (20-40) % Monocytes % (Manual) (0-10) % Nucleated RBC % (0-0) % Platelet Estimate (NORMAL) Polychromasia Hypochromasia (manual) Anisocytosis (manual) Puncture Site Rb pCO2 41 (35-45) mm/Hg pO2 98 (80-100) mm/Hg HCO3 31.8 H (21-28) mmol/L ABG pH 7.51 H (7.35-7.45) ABG Total CO2 34.0 H (22-28) mmol/L ABG O2 Saturation 99.6 H (95-98) % ABG Base Excess 8.8 H (-2.0-3.0) mmol/L [place] Test Na ABG Potassium 3.1 L (3.6-5.2) mmol/L A-a O2 Difference 136.0 mm/Hg Respiratory Index 1.4 Sodium 147.0 (132-148) mmol/l Chloride 115.0 H (98-107) mmol/L Glucose 120 H (75-110) mg/dl Lactate 1.2 (0.7-2.1) mmol/L Vent Mode Prvc Mechanical Rate 16 FiO2 40.0 % Tidal Volume 430 PEEP 5 Potassium (3.6-5.2) mmol/L Carbon Dioxide (22-30) mmol/L Anion Gap (10-20) BUN (9-20) mg/dL Creatinine (0.8-1.5) mg/dL Est GFR ( Amer) Est GFR (Non-Af Amer) POC Glucose (mg/dL) 144 H 230 H (65-110) mg/dL Random Glucose (75-110) mg/dL Calcium (8.6-10.4) mg/dl Phosphorus (2.5-4.5) mg/dL Magnesium (1.6-2.3) mg/dL Total Bilirubin (0.2-1.3) mg/dL AST (17-59) U/L ALT (21-72) U/L Alkaline Phosphatase (38-126) U/L Total Protein (6.3-8.3) g/dL Albumin (3.5-5.0) g/dL Globulin (2.2-3.9) gm/dL Albumin/Globulin Ratio (1.0-2.1) Arterial Blood Potassium 3.1 L (3.6-5.2) mmol/L 03/24/18 03/24/18 Range/Units 11:30 05:52 WBC (4.8-10.8) K/uL RBC (4.40-5.90) Mil/uL Hgb (12.0-18.0) g/dL Hct (35.0-51.0) % MCV (80.0-94.0) fL MCH (27.0-31.0) pg MCHC (33.0-37.0) g/dL RDW (11.5-14.5) % Plt Count (130-400) K/uL MPV (7.2-11.7) fL Neut % (Auto) (50.0-75.0) % Lymph % (Auto) (20.0-40.0) % [place] % (Auto) (0.0-10.0) % Eos % (Auto) (0.0-4.0) % Baso % (Auto) (0.0-2.0) % Neut # (Auto) (1.8-7.0) K/uL Lymph # (Auto) (1.0-4.3) K/uL [place] # (Auto) (0.0-0.8) K/uL Eos # (Auto) (0.0-0.7) K/uL Baso # (Auto) (0.0-0.2) K/uL Neutrophils % (Manual) 92 H (50-75) % Lymphocytes % (Manual) 1 L (20-40) % Monocytes % (Manual) 7 (0-10) % Nucleated RBC % 1 H (0-0) % Platelet Estimate Normal (NORMAL) Polychromasia Slight Hypochromasia (manual) Slight Anisocytosis (manual) Slight Puncture Site pCO2 (35-45) mm/Hg pO2 (80-100) mm/Hg HCO3 (21-28) mmol/L ABG pH (7.35-7.45) ABG Total CO2 (22-28) mmol/L ABG O2 Saturation (95-98) % ABG Base Excess (-2.0-3.0) mmol/L [place] Test ABG Potassium (3.6-5.2) mmol/L A-a O2 Difference mm/Hg Respiratory Index Sodium (132-148) mmol/l Chloride (98-107) mmol/L Glucose (75-110) mg/dl Lactate (0.7-2.1) mmol/L Vent Mode Mechanical Rate FiO2 % Tidal Volume PEEP Potassium (3.6-5.2) mmol/L Carbon Dioxide (22-30) mmol/L Anion Gap (10-20) BUN (9-20) mg/dL Creatinine (0.8-1.5) mg/dL Est GFR ( Amer) Est GFR (Non-Af Amer) POC Glucose (mg/dL) 190 H (65-110) mg/dL Random Glucose (75-110) mg/dL Calcium (8.6-10.4) mg/dl Phosphorus (2.5-4.5) mg/dL Magnesium (1.6-2.3) mg/dL Total Bilirubin (0.2-1.3) mg/dL AST (17-59) U/L ALT (21-72) U/L Alkaline Phosphatase (38-126) U/L Total Protein (6.3-8.3) g/dL Albumin (3.5-5.0) g/dL Globulin (2.2-3.9) gm/dL Albumin/Globulin Ratio (1.0-2.1) Arterial Blood Potassium (3.6-5.2) mmol/L Laboratory Results - last 24 hr 03/24/18 03/24/18 03/24/18 05:52 11:30 17:47 WBC RBC Hgb Hct MCV MCH MCHC RDW Plt Count MPV Neut % (Auto) Lymph % (Auto) [place] % (Auto) Eos % (Auto) Baso % (Auto) Neut # (Auto) Lymph # (Auto) [place] # (Auto) Eos # (Auto) Baso # (Auto) Neutrophils % (Manual) 92 H Lymphocytes % (Manual) 1 L Monocytes % (Manual) 7 Nucleated RBC % 1 H Platelet Estimate Normal Polychromasia Slight Hypochromasia (manual) Slight Anisocytosis (manual) Slight Puncture Site pCO2 pO2 HCO3 ABG pH ABG Total CO2 ABG O2 Saturation ABG Base Excess [place] Test ABG Potassium A-a O2 Difference Respiratory Index Sodium Chloride Glucose Lactate Vent Mode Mechanical Rate FiO2 Tidal Volume PEEP Potassium Carbon Dioxide Anion Gap BUN Creatinine Est GFR ( Amer) Est GFR (Non-Af Amer) POC Glucose (mg/dL) 190 H 230 H Random Glucose Calcium Phosphorus Magnesium Total Bilirubin AST ALT Alkaline Phosphatase Total Protein Albumin Globulin Albumin/Globulin Ratio Arterial Blood Potassium 03/24/18 03/25/18 03/25/18 23:14 04:58 05:31 WBC RBC Hgb Hct MCV MCH MCHC RDW Plt Count MPV Neut % (Auto) Lymph % (Auto) [place] % (Auto) Eos % (Auto) Baso % (Auto) Neut # (Auto) Lymph # (Auto) [place] # (Auto) Eos # (Auto) Baso # (Auto) Neutrophils % (Manual) Lymphocytes % (Manual) Monocytes % (Manual) Nucleated RBC % Platelet Estimate Polychromasia Hypochromasia (manual) Anisocytosis (manual) Puncture Site Rb pCO2 41 pO2 98 HCO3 31.8 H ABG pH 7.51 H ABG Total CO2 34.0 H ABG O2 Saturation 99.6 H ABG Base Excess 8.8 H [place] Test Na ABG Potassium 3.1 L A-a O2 Difference 136.0 Respiratory Index 1.4 Sodium 147.0 Chloride 115.0 H Glucose 120 H Lactate 1.2 Vent Mode Prvc Mechanical Rate 16 FiO2 40.0 Tidal Volume 430 PEEP 5 Potassium Carbon Dioxide Anion Gap BUN Creatinine Est GFR ( Amer) Est GFR (Non-Af Amer) POC Glucose (mg/dL) 144 H 136 H Random Glucose Calcium Phosphorus Magnesium Total Bilirubin AST ALT Alkaline Phosphatase Total Protein Albumin Globulin Albumin/Globulin Ratio Arterial Blood Potassium 3.1 L 03/25/18 03/25/18 06:10 06:10 WBC 23.6 H RBC 3.15 L Hgb 9.4 L Hct 29.5 L MCV 93.7 MCH 29.7 MCHC 31.7 L RDW 17.8 H Plt Count 195 MPV 10.3 Neut % (Auto) 90.1 H Lymph % (Auto) 6.6 L [place] % (Auto) 3.2 Eos % (Auto) 0.0 Baso % (Auto) 0.1 Neut # (Auto) 21.2 H Lymph # (Auto) 1.6 [place] # (Auto) 0.7 Eos # (Auto) 0.0 Baso # (Auto) 0.0 Neutrophils % (Manual) Lymphocytes % (Manual) Monocytes % (Manual) Nucleated RBC % Platelet Estimate Polychromasia Hypochromasia (manual) Anisocytosis (manual) Puncture Site pCO2 pO2 HCO3 ABG pH ABG Total CO2 ABG O2 Saturation ABG Base Excess [place] Test ABG Potassium A-a O2 Difference Respiratory Index Sodium 144 Chloride 107 Glucose Lactate Vent Mode Mechanical Rate FiO2 Tidal Volume PEEP Potassium 3.4 L Carbon Dioxide 35 H Anion Gap 5 L BUN 39 H Creatinine 0.4 L Est GFR ( Amer) > 60 Est GFR (Non-Af Amer) > 60 POC Glucose (mg/dL) Random Glucose 121 H D Calcium 7.7 L Phosphorus 3.9 Magnesium 2.0 Total Bilirubin 1.2 AST 38 ALT 83 H D Alkaline Phosphatase 158 H Total Protein 4.8 L Albumin 2.4 L Globulin 2.5 Albumin/Globulin Ratio 1.0 Arterial Blood Potassium Radiology Impressions: Radiology Impressions Chest X-Ray 03/24/18 06:50 IMPRESSION: Mild improvement in medial left basilar infiltrate with resolution of right basilar atelectasis. Underlying chronic interstitial changes are reiterated greater the left and right chest once again with interval mild left pleural effusion evident. Fingerstick Blood Sugar Results: 136 Review of Systems - Review of Systems Systems not reviewed;Unavailable: Intubated Critical Care Progress Note - Ventilator Checklist Head of Bed 30 Degrees: Yes Daily Sedation Vacation: Yes Daily Assessment of Readiness to Wean: Yes Daily Spontaneous Breathing Trial: Yes PUD Prophalyxis: Yes DVT Prophylaxis: Yes Oral Care with Chlorhexidine Gluconate {CHG}: Yes - Vent Settings MODE:: PRVC TIDAL VOLUME:: 350 RESP RATE:: 16 FIO2:: 40 PEEP:: 5 - Extremities/Vascular Does the Patient have a Central Venous Catheter?: Yes Insertion Site: Subclavian Vein Does the Patient need a Central Venous Catheter?: Yes Does the Patient have a Simmons Catheter?: Yes Does the Patient need a Simmons Catheter?: Yes Catheter Insertion Criteria: Need for accurate measurement of output in critically ill patient - Prophylaxis GI Prophylaxis GI: PPI - Prophylaxis DVT Prophylaxis DVT: Lovenox Assessment/Plan - Assessment and Plan (Free Text) Assessment: Patient is a 72 yo male w/PMH of Alzheimer, COPD and arthritis admitted for hypoxic resp failure. Patient was intubated prior to transfer to ICU on 03-19 with subclavian TLC placed on 03/19 for hypotension. Neuro awake, alert; no sedation; baseline mental status ? for dementia Pulm Intubated on Ventilator Solumedrol CV Fludrocortisone Levophed titrate as needed GI no active issues Protonix Renal Neutrophos KCl 20meq x2 Repeat CMP in AM ID + cx for yeast and e coli on 03/02 + cx for yeast on 03/1203/19/18 repeat cx negative Meropenem (started on 03/04) DVT ppx: Lovenox GI ppx: Protonix Disposition: Must be medically optimized prior to trach and peg in terms of hypotension, Surgery trach/peg for 03/27 pending optimization PGY-1 Merry Farias Medical Managment d/w Dr. Jara <Nino Jara S - Last Filed: 03/25/18 16:41> CCU Subjective - Physician Review Critical Care Time Spent (in minutes): 45 CCU Objective - Vital Signs / Intake & Output Vital Signs (Last 4 hours): Vital Signs Temp Pulse Resp BP Pulse Ox 03/25/18 16:02 118 H 17 80/56 L 99 03/25/18 16:00 96.4 F L 118 H 16 99 03/25/18 15:52 121 H 29 H 74/50 L 100 03/25/18 15:43 124 H 22 49/22 L 99 03/25/18 15:12 132 H 30 H 113/71 96 03/25/18 15:00 127 H 24 96 03/25/18 14:40 134 H 27 H 100/76 94 L 03/25/18 14:10 124 H 20 121/70 100 03/25/18 14:00 120 H 17 100 03/25/18 13:40 117 H 16 106/64 100 03/25/18 13:11 128 H 23 119/86 100 03/25/18 13:00 120 H 16 100 Intake and Output (Last 8hrs): Intake & Output 03/25/18 03/25/18 03/25/18 06:59 14:59 22:59 Intake Total 1210 741.5 157.5 Output Total 440 460 125 Balance 770 281.5 32.5 Weight 121 lb 6.4 oz Intake: IV 104 25 Intake, IV Amount 1100 517.5 52.5 R subclavian TLC medial 1100 300 port Right Proximal Port 217.5 52.5 Subclavian Tube Feeding 60 120 80 Other 50 Output: Urine 440 460 125 Urethral (Simmons) 440 460 125 - Medications Active Medications: Active Medications Generic Name Dose Route Start Last Admin Trade Name Slavaq PRN Reason Stop Dose Admin Enoxaparin Sodium 30 mg 03/07/18 11:00 03/24/18 09:12 Lovenox SC 30 mg DAILY VELMA Administration Fludrocortisone Acetate 0.1 mg 03/10/18 11:15 03/25/18 09:17 Florinef PO 0.1 mg DAILY VELMA Administration Hydromorphone HCl 0.5 mg 03/24/18 22:16 03/24/18 22:37 Dilaudid IVP 0.25 mg Q6H PRN Administration Pain, moderate (4-7) Meropenem 500 mg/ Sodium 100 mls @ 100 mls/hr 03/04/18 01:15 03/25/18 09:16 Chloride IVPB 100 mls/hr Q8H VELMA Administration Protocol Norepinephrine Bitartrate 4 mg 254 mls @ 15.24 mls/hr 03/25/18 08:54 03/25/18 15:00 / Sodium Chloride IV 6 mcg/min .[id number] PRN 22.86 mls/hr TITRATE PER MD ORDER Titration Protocol 4 MCG/MIN Sodium Chloride 1,000 mls @ 100 mls/hr 03/25/18 10:00 03/25/18 10:51 Sodium Chloride 0.9% IV 100 mls/hr .Q10H VELMA Administration Methylprednisolone 40 mg 03/24/18 10:00 03/25/18 09:17 Solu-Medrol IVP 40 mg DAILY VELMA Administration Pantoprazole Sodium 40 mg 03/25/18 06:00 03/25/18 05:55 Protonix Susp PO Not Given 0600 VELMA Potassium Phos/Sodium Phos 1 pkt 03/22/18 14:00 03/25/18 15:00 Neutra-Phos PO 1 pkt TID VELMA Administration - Patient Studies Lab Studies: Microbiology Studies 03/19/18 21:05 Blood Culture - Final Blood-Thru Central Line NO GROWTH AFTER 5 DAYS Gram Stain - Final TEST NOT PERFORMED 03/19/18 21:05 Blood Culture - Final Blood-Thru Central Line NO GROWTH AFTER 5 DAYS Gram Stain - Final TEST NOT PERFORMED Lab Studies 03/25/18 03/25/18 03/25/18 Range/Units 11:34 06:10 06:10 WBC 23.6 H (4.8-10.8) K/uL RBC 3.15 L (4.40-5.90) Mil/uL Hgb 9.4 L (12.0-18.0) g/dL Hct 29.5 L (35.0-51.0) % MCV 93.7 (80.0-94.0) fL MCH 29.7 (27.0-31.0) pg MCHC 31.7 L (33.0-37.0) g/dL RDW 17.8 H (11.5-14.5) % Plt Count 195 (130-400) K/uL MPV 10.3 (7.2-11.7) fL Neut % (Auto) 90.1 H (50.0-75.0) % Lymph % (Auto) 6.6 L (20.0-40.0) % [place] % (Auto) 3.2 (0.0-10.0) % Eos % (Auto) 0.0 (0.0-4.0) % Baso % (Auto) 0.1 (0.0-2.0) % Neut # (Auto) 21.2 H (1.8-7.0) K/uL Lymph # (Auto) 1.6 (1.0-4.3) K/uL [place] # (Auto) 0.7 (0.0-0.8) K/uL Eos # (Auto) 0.0 (0.0-0.7) K/uL Baso # (Auto) 0.0 (0.0-0.2) K/uL Neutrophils % (Manual) 81 H (50-75) % Band Neutrophils % 5 H (0-2) % Lymphocytes % (Manual) 10 L (20-40) % Monocytes % (Manual) 3 (0-10) % Myelocytes % 1 H (0-0) % Nucleated RBC % 1 H (0-0) % Platelet Estimate Normal (NORMAL) Polychromasia Slight Hypochromasia (manual) Slight Anisocytosis (manual) Slight Puncture Site pCO2 (35-45) mm/Hg pO2 (80-100) mm/Hg HCO3 (21-28) mmol/L ABG pH (7.35-7.45) ABG Total CO2 (22-28) mmol/L ABG O2 Saturation (95-98) % ABG Base Excess (-2.0-3.0) mmol/L [place] Test ABG Potassium (3.6-5.2) mmol/L A-a O2 Difference mm/Hg Respiratory Index Sodium 144 (132-148) mmol/l Chloride 107 (98-107) mmol/L Glucose (75-110) mg/dl Lactate (0.7-2.1) mmol/L Vent Mode Mechanical Rate FiO2 % Tidal Volume PEEP Potassium 3.4 L (3.6-5.2) mmol/L Carbon Dioxide 35 H (22-30) mmol/L Anion Gap 5 L (10-20) BUN 39 H (9-20) mg/dL Creatinine 0.4 L (0.8-1.5) mg/dL Est GFR ( Amer) > 60 Est GFR (Non-Af Amer) > 60 POC Glucose (mg/dL) 136 H (65-110) mg/dL Random Glucose 121 H D (75-110) mg/dL Calcium 7.7 L (8.6-10.4) mg/dl Phosphorus 3.9 (2.5-4.5) mg/dL Magnesium 2.0 (1.6-2.3) mg/dL Total Bilirubin 1.2 (0.2-1.3) mg/dL AST 38 (17-59) U/L ALT 83 H D (21-72) U/L Alkaline Phosphatase 158 H (38-126) U/L Total Protein 4.8 L (6.3-8.3) g/dL Albumin 2.4 L (3.5-5.0) g/dL Globulin 2.5 (2.2-3.9) gm/dL Albumin/Globulin Ratio 1.0 (1.0-2.1) Arterial Blood Potassium (3.6-5.2) mmol/L 03/25/18 03/25/18 03/24/18 Range/Units 05:31 04:58 23:14 WBC (4.8-10.8) K/uL RBC (4.40-5.90) Mil/uL Hgb (12.0-18.0) g/dL Hct (35.0-51.0) % MCV (80.0-94.0) fL MCH (27.0-31.0) pg MCHC (33.0-37.0) g/dL RDW (11.5-14.5) % Plt Count (130-400) K/uL MPV (7.2-11.7) fL Neut % (Auto) (50.0-75.0) % Lymph % (Auto) (20.0-40.0) % [place] % (Auto) (0.0-10.0) % Eos % (Auto) (0.0-4.0) % Baso % (Auto) (0.0-2.0) % Neut # (Auto) (1.8-7.0) K/uL Lymph # (Auto) (1.0-4.3) K/uL [place] # (Auto) (0.0-0.8) K/uL Eos # (Auto) (0.0-0.7) K/uL Baso # (Auto) (0.0-0.2) K/uL Neutrophils % (Manual) (50-75) % Band Neutrophils % (0-2) % Lymphocytes % (Manual) (20-40) % Monocytes % (Manual) (0-10) % Myelocytes % (0-0) % Nucleated RBC % (0-0) % Platelet Estimate (NORMAL) Polychromasia Hypochromasia (manual) Anisocytosis (manual) Puncture Site Rb pCO2 41 (35-45) mm/Hg pO2 98 (80-100) mm/Hg HCO3 31.8 H (21-28) mmol/L ABG pH 7.51 H (7.35-7.45) ABG Total CO2 34.0 H (22-28) mmol/L ABG O2 Saturation 99.6 H (95-98) % ABG Base Excess 8.8 H (-2.0-3.0) mmol/L [place] Test Na ABG Potassium 3.1 L (3.6-5.2) mmol/L A-a O2 Difference 136.0 mm/Hg Respiratory Index 1.4 Sodium 147.0 (132-148) mmol/l Chloride 115.0 H (98-107) mmol/L Glucose 120 H (75-110) mg/dl Lactate 1.2 (0.7-2.1) mmol/L Vent Mode Prvc Mechanical Rate 16 FiO2 40.0 % Tidal Volume 430 PEEP 5 Potassium (3.6-5.2) mmol/L Carbon Dioxide (22-30) mmol/L Anion Gap (10-20) BUN (9-20) mg/dL Creatinine (0.8-1.5) mg/dL Est GFR ( Amer) Est GFR (Non-Af Amer) POC Glucose (mg/dL) 136 H 144 H (65-110) mg/dL Random Glucose (75-110) mg/dL Calcium (8.6-10.4) mg/dl Phosphorus (2.5-4.5) mg/dL Magnesium (1.6-2.3) mg/dL Total Bilirubin (0.2-1.3) mg/dL AST (17-59) U/L ALT (21-72) U/L Alkaline Phosphatase (38-126) U/L Total Protein (6.3-8.3) g/dL Albumin (3.5-5.0) g/dL Globulin (2.2-3.9) gm/dL Albumin/Globulin Ratio (1.0-2.1) Arterial Blood Potassium 3.1 L (3.6-5.2) mmol/L 03/24/18 Range/Units 17:47 WBC (4.8-10.8) K/uL RBC (4.40-5.90) Mil/uL Hgb (12.0-18.0) g/dL Hct (35.0-51.0) % MCV (80.0-94.0) fL MCH (27.0-31.0) pg MCHC (33.0-37.0) g/dL RDW (11.5-14.5) % Plt Count (130-400) K/uL MPV (7.2-11.7) fL Neut % (Auto) (50.0-75.0) % Lymph % (Auto) (20.0-40.0) % [place] % (Auto) (0.0-10.0) % Eos % (Auto) (0.0-4.0) % Baso % (Auto) (0.0-2.0) % Neut # (Auto) (1.8-7.0) K/uL Lymph # (Auto) (1.0-4.3) K/uL [place] # (Auto) (0.0-0.8) K/uL Eos # (Auto) (0.0-0.7) K/uL Baso # (Auto) (0.0-0.2) K/uL Neutrophils % (Manual) (50-75) % Band Neutrophils % (0-2) % Lymphocytes % (Manual) (20-40) % Monocytes % (Manual) (0-10) % Myelocytes % (0-0) % Nucleated RBC % (0-0) % Platelet Estimate (NORMAL) Polychromasia Hypochromasia (manual) Anisocytosis (manual) Puncture Site pCO2 (35-45) mm/Hg pO2 (80-100) mm/Hg HCO3 (21-28) mmol/L ABG pH (7.35-7.45) ABG Total CO2 (22-28) mmol/L ABG O2 Saturation (95-98) % ABG Base Excess (-2.0-3.0) mmol/L [place] Test ABG Potassium (3.6-5.2) mmol/L A-a O2 Difference mm/Hg Respiratory Index Sodium (132-148) mmol/l Chloride (98-107) mmol/L Glucose (75-110) mg/dl Lactate (0.7-2.1) mmol/L Vent Mode Mechanical Rate FiO2 % Tidal Volume PEEP Potassium (3.6-5.2) mmol/L Carbon Dioxide (22-30) mmol/L Anion Gap (10-20) BUN (9-20) mg/dL Creatinine (0.8-1.5) mg/dL Est GFR ( Amer) Est GFR (Non-Af Amer) POC Glucose (mg/dL) 230 H (65-110) mg/dL Random Glucose (75-110) mg/dL Calcium (8.6-10.4) mg/dl Phosphorus (2.5-4.5) mg/dL Magnesium (1.6-2.3) mg/dL Total Bilirubin (0.2-1.3) mg/dL AST (17-59) U/L ALT (21-72) U/L Alkaline Phosphatase (38-126) U/L Total Protein (6.3-8.3) g/dL Albumin (3.5-5.0) g/dL Globulin (2.2-3.9) gm/dL Albumin/Globulin Ratio (1.0-2.1) Arterial Blood Potassium (3.6-5.2) mmol/L Laboratory Results - last 24 hr 03/24/18 03/24/18 03/25/18 17:47 23:14 04:58 WBC RBC Hgb Hct MCV MCH MCHC RDW Plt Count MPV Neut % (Auto) Lymph % (Auto) [place] % (Auto) Eos % (Auto) Baso % (Auto) Neut # (Auto) Lymph # (Auto) [place] # (Auto) Eos # (Auto) Baso # (Auto) Neutrophils % (Manual) Band Neutrophils % Lymphocytes % (Manual) Monocytes % (Manual) Myelocytes % Nucleated RBC % Platelet Estimate Polychromasia Hypochromasia (manual) Anisocytosis (manual) Puncture Site Rb pCO2 41 pO2 98 HCO3 31.8 H ABG pH 7.51 H ABG Total CO2 34.0 H ABG O2 Saturation 99.6 H ABG Base Excess 8.8 H [place] Test Na ABG Potassium 3.1 L A-a O2 Difference 136.0 Respiratory Index 1.4 Sodium 147.0 Chloride 115.0 H Glucose 120 H Lactate 1.2 Vent Mode Prvc Mechanical Rate 16 FiO2 40.0 Tidal Volume 430 PEEP 5 Potassium Carbon Dioxide Anion Gap BUN Creatinine Est GFR ( Amer) Est GFR (Non-Af Amer) POC Glucose (mg/dL) 230 H 144 H Random Glucose Calcium Phosphorus Magnesium Total Bilirubin AST ALT Alkaline Phosphatase Total Protein Albumin Globulin Albumin/Globulin Ratio Arterial Blood Potassium 3.1 L 03/25/18 03/25/18 03/25/18 05:31 06:10 06:10 WBC 23.6 H RBC 3.15 L Hgb 9.4 L Hct 29.5 L MCV 93.7 MCH 29.7 MCHC 31.7 L RDW 17.8 H Plt Count 195 MPV 10.3 Neut % (Auto) 90.1 H Lymph % (Auto) 6.6 L [place] % (Auto) 3.2 Eos % (Auto) 0.0 Baso % (Auto) 0.1 Neut # (Auto) 21.2 H Lymph # (Auto) 1.6 [place] # (Auto) 0.7 Eos # (Auto) 0.0 Baso # (Auto) 0.0 Neutrophils % (Manual) 81 H Band Neutrophils % 5 H Lymphocytes % (Manual) 10 L Monocytes % (Manual) 3 Myelocytes % 1 H Nucleated RBC % 1 H Platelet Estimate Normal Polychromasia Slight Hypochromasia (manual) Slight Anisocytosis (manual) Slight Puncture Site pCO2 pO2 HCO3 ABG pH ABG Total CO2 ABG O2 Saturation ABG Base Excess Bereket Test ABG Potassium A-a O2 Difference Respiratory Index Sodium 144 Chloride 107 Glucose Lactate Vent Mode Mechanical Rate FiO2 Tidal Volume PEEP Potassium 3.4 L Carbon Dioxide 35 H Anion Gap 5 L BUN 39 H Creatinine 0.4 L Est GFR ( Amer) > 60 Est GFR (Non-Af Amer) > 60 POC Glucose (mg/dL) 136 H Random Glucose 121 H D Calcium 7.7 L Phosphorus 3.9 Magnesium 2.0 Total Bilirubin 1.2 AST 38 ALT 83 H D Alkaline Phosphatase 158 H Total Protein 4.8 L Albumin 2.4 L Globulin 2.5 Albumin/Globulin Ratio 1.0 Arterial Blood Potassium 03/25/18 11:34 WBC RBC Hgb Hct MCV MCH MCHC RDW Plt Count MPV Neut % (Auto) Lymph % (Auto) [place] % (Auto) Eos % (Auto) Baso % (Auto) Neut # (Auto) Lymph # (Auto) [place] # (Auto) Eos # (Auto) Baso # (Auto) Neutrophils % (Manual) Band Neutrophils % Lymphocytes % (Manual) Monocytes % (Manual) Myelocytes % Nucleated RBC % Platelet Estimate Polychromasia Hypochromasia (manual) Anisocytosis (manual) Puncture Site pCO2 pO2 HCO3 ABG pH ABG Total CO2 ABG O2 Saturation ABG Base Excess Bereket Test ABG Potassium A-a O2 Difference Respiratory Index Sodium Chloride Glucose Lactate Vent Mode Mechanical Rate FiO2 Tidal Volume PEEP Potassium Carbon Dioxide Anion Gap BUN Creatinine Est GFR ( Amer) Est GFR (Non-Af Amer) POC Glucose (mg/dL) 136 H Random Glucose Calcium Phosphorus Magnesium Total Bilirubin AST ALT Alkaline Phosphatase Total Protein Albumin Globulin Albumin/Globulin Ratio Arterial Blood Potassium Radiology Impressions: Radiology Impressions Chest X-Ray 03/25/18 06:00 IMPRESSION: Left pneumothorax without tension or mediastinal shift. This is an interval change which was called up to the nurse taking care this patient, Khloe at 3:12 p.m. on 03/25/2018. Other findings as above. Attending/Attestation - Attestation I have personally seen and examined this patient.: Yes I have fully participated in the care of the patient.: Yes I have reviewed all pertinent clinical information: Yes Notes (Text): 03/25/18 16:40 Patient seen and examined in the intensive care unit. Case discussed with housestaff in the morning rounds. Remained intubated on ventilatory support No response to tactile stimuli Small pneumothorax on left side Monitor chest x-ray Continue present treatment for now Trach and PEG canceled due to hypotension
[2018-03-25] MEDS: Potassium & Sodium Phosphate PO SCH ×3 (09:17→18:00)
[2018-03-25] MEDS: MethylPREDNISolone 40 mg Vial IVP SCH (09:17)
--- NOTE | 2018-03-25 10:29 | CP.PCM.PN ---
Subjective - Date & Time of Evaluation Date of Evaluation: 03/25/18 Time of Evaluation: 10:26 - Subjective Subjective: PT INTUBATED. ROS; UNOBTAINABLE. Objective - Vital Signs/Intake and Output Vital Signs (last 24 hours): Temp Pulse Resp BP Pulse Ox 97.3 F L 118 H 16 101/40 L 100 03/25/18 08:00 03/25/18 10:00 03/25/18 10:00 03/25/18 09:40 03/25/18 10:00 Intake and Output: 03/25/18 03/25/18 06:59 18:59 Intake Total 1420 75.0 Output Total 585 110 Balance 835 -35.0 - Medications Medications: Current Medications Enoxaparin Sodium (Lovenox) 30 mg SC DAILY [facility] Last Admin: 03/24/18 09:12 Dose: 30 mg Fludrocortisone Acetate (Florinef) 0.1 mg PO DAILY [facility] Last Admin: 03/25/18 09:17 Dose: 0.1 mg Hydromorphone HCl (Dilaudid) 0.5 mg IVP Q6H PRN PRN Reason: Pain, moderate (4-7) Last Admin: 03/24/18 22:37 Dose: 0.25 mg Meropenem 500 mg/ Sodium (Chloride) 100 mls @ 100 mls/hr IVPB Q8H [facility]; Protocol Last Admin: 03/25/18 09:16 Dose: 100 mls/hr Potassium Chloride (Potassium Chloride 20 Meq/100 Ml) 20 meq in 100 mls @ 50 mls/hr IVPB Q1H [facility] Stop: 03/25/18 10:59 Last Admin: 03/25/18 09:15 Dose: 50 mls/hr Norepinephrine Bitartrate 4 mg (/ Sodium Chloride) 254 mls @ 15.24 mls/hr IV .[id number] PRN; Protocol PRN Reason: TITRATE PER MD ORDER Last Admin: 03/25/18 09:10 Dose: 10 mcg/min, 38.1 mls/hr Sodium Chloride (Sodium Chloride 0.9%) 1,000 mls @ 100 mls/hr IV .Q10H [facility] Methylprednisolone (Solu-Medrol) 40 mg IVP DAILY [facility] Last Admin: 03/25/18 09:17 Dose: 40 mg Pantoprazole Sodium (Protonix Susp) 40 mg PO 0600 [facility] Last Admin: 03/25/18 05:55 Dose: Not Given Potassium Phos/Sodium Phos (Neutra-Phos) 1 pkt PO TID [facility] Last Admin: 03/25/18 09:17 Dose: 1 pkt - Labs Labs: 03/25/18 06:10 03/25/18 06:10 PT 16.0 SECONDS (9.7-12.2) H 03/22/18 16:02 INR 1.5 03/22/18 16:02 APTT 31 SECONDS (21-34) 03/22/18 16:02 - Constitutional Appears: Cachectic, Chronically Ill - Head Exam Head Exam: ATRAUMATIC, NORMOCEPHALIC - Eye Exam Eye Exam: Normal appearance - ENT Exam Additional comments: ORAL ETT+OGT - Neck Exam Neck Exam: Normal Inspection - Respiratory Exam Respiratory Exam: Rhonchi - Cardiovascular Exam Cardiovascular Exam: Tachycardia, RRR, +S1, +S2 - GI/Abdominal Exam GI & Abdominal Exam: Soft - Rectal Exam Rectal Exam: Deferred - Extremities Exam Extremities Exam: absent: Pedal Edema - Neurological Exam Additional comments: LETHARGIC - Skin Skin Exam: absent: Rash Assessment and Plan (1) Septic shock Status: Acute (2) Altered mental status Status: Acute (3) Pneumonia Status: Acute (4) Respiratory failure requiring intubation Status: Acute (5) COPD exacerbation Status: Acute (6) Cachexia Status: Acute (7) Cholelithiases Status: Acute (8) Alzheimer disease Status: Chronic - Assessment and Plan (Free Text) Assessment: HYPOTENSIVE REQUIRING IV LEVO SUPPORT AT 10UG NOW. CONT AC SUPPORT., CONT PULM TOILET., NEB BD., MONITOR O2 SAT. ABG NOTED. CXR REVIEWED. TRACH POSTPONED. CONT AB PER ID. CONT FEEDINGS., PROG POOR. DISCUSSED WITH STAFF AT LENGTH AND ID. TIME SPENT 1HR
[2018-03-25] MEDS: Sodium Chloride 0.9% 1,000 ML IV SCH ×2 (10:51→22:00)
--- NOTE | 2018-03-25 12:31 | CP.PCM.PN ---
Subjective - Date & Time of Evaluation Date of Evaluation: 03/25/18 Time of Evaluation: 12:31 - Subjective Subjective: Patient became hypotensive on Levophed. ON VENTILATOR TRACHEOSTOMY POSTPONED. ON IV ANTIBIOTICS ROS; NA Objective - Vital Signs/Intake and Output Vital Signs (last 24 hours): Temp Pulse Resp BP Pulse Ox 97.3 F L 116 H 16 104/72 100 03/25/18 08:00 03/25/18 11:10 03/25/18 11:10 03/25/18 11:10 03/25/18 11:10 Intake and Output: 03/25/18 03/25/18 06:59 18:59 Intake Total 1420 112.5 Output Total 585 210 Balance 835 -97.5 - Medications Medications: Current Medications Enoxaparin Sodium (Lovenox) 30 mg SC DAILY [facility] Last Admin: 03/24/18 09:12 Dose: 30 mg Fludrocortisone Acetate (Florinef) 0.1 mg PO DAILY [facility] Last Admin: 03/25/18 09:17 Dose: 0.1 mg Hydromorphone HCl (Dilaudid) 0.5 mg IVP Q6H PRN PRN Reason: Pain, moderate (4-7) Last Admin: 03/24/18 22:37 Dose: 0.25 mg Meropenem 500 mg/ Sodium (Chloride) 100 mls @ 100 mls/hr IVPB Q8H [facility]; Protocol Last Admin: 03/25/18 09:16 Dose: 100 mls/hr Norepinephrine Bitartrate 4 mg (/ Sodium Chloride) 254 mls @ 15.24 mls/hr IV .[id number] PRN; Protocol PRN Reason: TITRATE PER MD ORDER Last Admin: 03/25/18 09:10 Dose: 10 mcg/min, 38.1 mls/hr Sodium Chloride (Sodium Chloride 0.9%) 1,000 mls @ 100 mls/hr IV .Q10H [facility] Last Admin: 03/25/18 10:51 Dose: 100 mls/hr Methylprednisolone (Solu-Medrol) 40 mg IVP DAILY [facility] Last Admin: 03/25/18 09:17 Dose: 40 mg Pantoprazole Sodium (Protonix Susp) 40 mg PO 0600 [facility] Last Admin: 03/25/18 05:55 Dose: Not Given Potassium Phos/Sodium Phos (Neutra-Phos) 1 pkt PO TID [facility] Last Admin: 03/25/18 09:17 Dose: 1 pkt - Labs Labs: 03/25/18 06:10 03/25/18 06:10 PT 16.0 SECONDS (9.7-12.2) H 03/22/18 16:02 INR 1.5 03/22/18 16:02 APTT 31 SECONDS (21-34) 03/22/18 16:02 - Constitutional Appears: No Acute Distress - Head Exam Head Exam: NORMAL INSPECTION - Eye Exam Eye Exam: PERRL - ENT Exam ENT Exam: Mucous Membranes Dry - Neck Exam Neck Exam: Normal Inspection - Respiratory Exam Respiratory Exam: Decreased Breath Sounds, NORMAL BREATHING PATTERN - Cardiovascular Exam Cardiovascular Exam: Tachycardia, REGULAR RHYTHM, +S1, +S2 - GI/Abdominal Exam GI & Abdominal Exam: Soft, Normal Bowel Sounds - Extremities Exam Extremities Exam: Normal Capillary Refill. absent: Calf Tenderness, Pedal Edema - Neurological Exam Neurological Exam: Altered - Skin Skin Exam: Normal Color, Warm Assessment and Plan (1) Sepsis associated hypotension Status: Acute (2) Respiratory failure requiring intubation Status: Acute (3) Altered mental status Status: Acute (4) Pneumonia Status: Acute (5) Abdominal pain Status: Acute (6) Cholelithiases Status: Acute - Assessment and Plan (Free Text) Plan: CONTINUE IV MERREM 500MG IVPB Q8HRLY 03/04/18 OFF IV MYCAFUNGIN 100MG IV PB Q 24 HRLY 03/04/18-TO 03/22/18 PATIENT FOR TRACH AND PEG WHEN STABLE. CONTINUE PULMONARY TOILET.
--- NOTE | 2018-03-25 12:33 | CP.PCM.PN ---
Subjective - Date & Time of Evaluation Date of Evaluation: 03/25/18 Time of Evaluation: 12:32 - Subjective Subjective: Patient on vent. Patient became hypertensive on Levophed tracheostomy postponed Continue IV antibiotics and ICU management for respirator and Levophed. Objective - Vital Signs/Intake and Output Vital Signs (last 24 hours): Temp Pulse Resp BP Pulse Ox 97.3 F L 116 H 16 104/72 100 03/25/18 08:00 03/25/18 11:10 03/25/18 11:10 03/25/18 11:10 03/25/18 11:10 Intake and Output: 03/25/18 03/25/18 11:59 23:59 Intake Total 1282.5 Output Total 610 Balance 672.5 - Medications Medications: Current Medications Enoxaparin Sodium (Lovenox) 30 mg SC DAILY [facility] Last Admin: 03/24/18 09:12 Dose: 30 mg Fludrocortisone Acetate (Florinef) 0.1 mg PO DAILY [facility] Last Admin: 03/25/18 09:17 Dose: 0.1 mg Hydromorphone HCl (Dilaudid) 0.5 mg IVP Q6H PRN PRN Reason: Pain, moderate (4-7) Last Admin: 03/24/18 22:37 Dose: 0.25 mg Meropenem 500 mg/ Sodium (Chloride) 100 mls @ 100 mls/hr IVPB Q8H [facility]; Protocol Last Admin: 03/25/18 09:16 Dose: 100 mls/hr Norepinephrine Bitartrate 4 mg (/ Sodium Chloride) 254 mls @ 15.24 mls/hr IV .[id number] PRN; Protocol PRN Reason: TITRATE PER MD ORDER Last Admin: 03/25/18 09:10 Dose: 10 mcg/min, 38.1 mls/hr Sodium Chloride (Sodium Chloride 0.9%) 1,000 mls @ 100 mls/hr IV .Q10H [facility] Last Admin: 03/25/18 10:51 Dose: 100 mls/hr Methylprednisolone (Solu-Medrol) 40 mg IVP DAILY [facility] Last Admin: 03/25/18 09:17 Dose: 40 mg Pantoprazole Sodium (Protonix Susp) 40 mg PO 0600 [facility] Last Admin: 03/25/18 05:55 Dose: Not Given Potassium Phos/Sodium Phos (Neutra-Phos) 1 pkt PO TID [facility] Last Admin: 03/25/18 09:17 Dose: 1 pkt - Labs Labs: 03/25/18 06:10 03/25/18 06:10 PT 16.0 SECONDS (9.7-12.2) H 03/22/18 16:02 INR 1.5 03/22/18 16:02 APTT 31 SECONDS (21-34) 03/22/18 16:02
--- NOTE | 2018-03-25 15:20 | RAD ---
Date of service: 03/25/2018 HISTORY: intubated COMPARISON: 03/24/2018 FINDINGS: LUNGS: Diffuse interstitial lung disease left lung greater than right. Prior blending airspace opacities left perihilar show some partial improved aeration/partial clearing. Left hemidiaphragm obliterated-compatible with left basal infiltrate and/or atelectasis here-interval change. Probable minimal concomitant bronchiectasis right lung base-no significant change here in the abnormal interstitial markings. PLEURA: Chronic left inferolateral pleural thickening reaction possible similar small left pleural effusion. A left pneumothorax is suggested on this exam. CARDIOVASCULAR: There is presence of aortic atherosclerotic calcification on x-ray. Marked cardiomegaly-similar an element of concomitant mild pulmonary venous congestion-grossly similar to prior study is not excluded. No worsening pulmonary venous congestion appreciated. Right PICC line tip cavoatrial junction as before. Endotracheal tube position: 2 cm cephalad to the mandie OSSEOUS STRUCTURES: Left proximal humeral hardware for prior left humeral fracture treatment-similar VISUALIZED UPPER ABDOMEN: NG tube tip in stomach as before. OTHER FINDINGS: None. IMPRESSION: Left pneumothorax without tension or mediastinal shift. This is an interval change which was called up to the nurse taking care this patient, Khloe at 3:12 p.m. on 03/25/2018. Other findings as above.
[2018-03-26] MEDS: Meropenem 500 MG in Sodium Chloride 0.9% 100 ML IVPB SCH ×3 (00:15→17:47)
[2018-03-26] MEDS: Pantoprazole 40 mg Susp UD PO SCH (05:21)
[2018-03-26 05:49] LABS: BASO % 0.1 % (0.0-2.0); EOS % 0.1 % (0.0-4.0); HEMOGLOBIN 8.8 g/dL (12.0-18.0); LYMPH # 1.3 K/uL (1.0-4.3); LYMPH % 5.6 % (20.0-40.0); MEAN CELL VOLUME 93.9 fL (80.0-94.0); MEAN CORPUSCULAR HEMOGLOBIN 30.5 pg (27.0-31.0); MEAN CORPUSCULAR HGB CONC 32.5 g/dL (33.0-37.0); MEAN PLATELET VOLUME 10.2 fL (7.2-11.7); MONO # 0.4 K/uL (0.0-0.8); MONO % 1.9 % (0.0-10.0); NEUT # 20.9 K/uL (1.8-7.0); NEUT % 92.3 % (50.0-75.0); NRBC % 3.2 % (0.0-2.0); PLATELET COUNT 174 K/uL (130-400); RBC 2.89 Mil/uL (4.40-5.90); RED CELL DISTRIBUTION WIDTH 18.5 % (11.5-14.5); WHITE BLOOD COUNT 22.7 K/uL (4.8-10.8)
[2018-03-26 05:51] LABS: ALB/GLOB RATIO 0.9 (1.0-2.1); ALBUMIN 2.4 g/dL (3.5-5.0); ALT/SGPT 64 U/L (21-72); AST/SGOT 41 U/L (17-59); BLOOD UREA NITROGEN 29 mg/dL (9-20); CALCIUM 7.6 mg/dl (8.6-10.4); GFR NON-AFRICAN AMERICAN > 60
[2018-03-26] MEDS: Sodium Chloride 0.9% 1,000 ML IV SCH ×4 (06:00→22:30)
--- NOTE | 2018-03-26 07:48 | RAD ---
Date of service: 03/26/2018 HISTORY: intubated COMPARISON: Portable chest 03/25/2018. FINDINGS: LUNGS: Endotracheal and nasogastric tubes do not appear simply changed in position as well as right central venous line. Mild left pneumothorax is unchanged bilateral pulmonary fibrotic changes are reiterated in the periphery predominantly with scattered infiltrate at the mid to inferior left lung zone again evident. No acute infiltrate right chest. PLEURA: Small pleural effusion not excluded. None is seen the right. Pleural thickening is again seen at the right greater than left chest. No right pneumothorax. CARDIOVASCULAR: Calcific atherosclerotic changes are seen related to the thoracic aorta. Normal cardiac size. No pulmonary vascular congestion. OSSEOUS STRUCTURES: Orthopedic hardware again evident at the bilateral shoulders. VISUALIZED UPPER ABDOMEN: Normal. OTHER FINDINGS: None. IMPRESSION: Stable miles left pneumothorax with into inferior left pulmonary infiltrate reiterated. Advanced bilateral pulmonary interstitial fibrosis again evident as well on a chronic basis. Tubes and catheters unchanged in position.
[2018-03-26 08:05] LABS: ANISOCYTOSIS SLIGHT; HYPOCHROMIC SLIGHT; LYMPHOCYTE 12 % (20-40); MONOCYTE 1 % (0-10); NEUTROPHIL 87 % (50-75); NUCLEATED RED BLOOD CELL 2 % (0-0); PLATELET ESTIMATE NORMAL (NORMAL); TOTAL CELLS COUNTED 100
[2018-03-26 08:06] LABS: POLYCHROMIC SLIGHT
[2018-03-26] MEDS: Enoxaparin 30 mg Syringe SC SCH (09:28)
[2018-03-26] MEDS: Potassium & Sodium Phosphate PO SCH ×3 (09:29→17:47)
[2018-03-26] MEDS: MethylPREDNISolone 40 mg Vial IVP SCH (09:30)
--- NOTE | 2018-03-26 09:43 | CP.PCM.PN ---
Subjective - Date & Time of Evaluation Date of Evaluation: 03/26/18 Time of Evaluation: 09:40 - Subjective Subjective: PT INTUBATED. ROS; UNOBTAINABLE Objective - Vital Signs/Intake and Output Vital Signs (last 24 hours): Temp Pulse Resp BP Pulse Ox 98.3 F 118 H 28 H 92/58 L 100 03/26/18 08:00 03/26/18 09:15 03/26/18 09:15 03/26/18 09:15 03/26/18 09:15 Intake and Output: 03/26/18 03/26/18 06:59 18:59 Intake Total 2347.455 477 Output Total 910 250 Balance 1437.455 227 - Medications Medications: Current Medications Enoxaparin Sodium (Lovenox) 30 mg SC DAILY [facility] Last Admin: 03/26/18 09:28 Dose: 30 mg Fludrocortisone Acetate (Florinef) 0.1 mg PO DAILY [facility] Last Admin: 03/26/18 09:28 Dose: 0.1 mg Hydromorphone HCl (Dilaudid) 0.5 mg IVP Q6H PRN PRN Reason: Pain, moderate (4-7) Last Admin: 03/24/18 22:37 Dose: 0.25 mg Meropenem 500 mg/ Sodium (Chloride) 100 mls @ 100 mls/hr IVPB Q8H [facility]; Protocol Last Admin: 03/26/18 09:30 Dose: 100 mls/hr Norepinephrine Bitartrate 4 mg (/ Sodium Chloride) 254 mls @ 15.24 mls/hr IV .[id number] PRN; Protocol PRN Reason: TITRATE PER MD ORDER Last Titration: 03/26/18 06:15 Dose: 5 mcg/min, 19.05 mls/hr Sodium Chloride (Sodium Chloride 0.9%) 1,000 mls @ 100 mls/hr IV .Q10H [facility] Last Admin: 03/25/18 10:51 Dose: 100 mls/hr Potassium Chloride (Potassium Chloride 20 Meq/100 Ml) 20 meq in 100 mls @ 50 mls/hr IVPB Q1H [facility] Stop: 03/26/18 11:14 Last Admin: 03/26/18 09:29 Dose: 50 mls/hr Lorazepam (Ativan) 1 mg IVP Q4H PRN PRN Reason: Anxiety Last Admin: 03/26/18 08:47 Dose: 1 mg Methylprednisolone (Solu-Medrol) 40 mg IVP DAILY [facility] Last Admin: 03/26/18 09:30 Dose: 40 mg Pantoprazole Sodium (Protonix Susp) 40 mg PO 0600 [facility] Last Admin: 03/26/18 05:21 Dose: 40 mg Potassium Phos/Sodium Phos (Neutra-Phos) 1 pkt PO TID [facility] Last Admin: 03/26/18 09:29 Dose: 1 pkt - Labs Labs: 03/26/18 05:20 03/26/18 05:20 PT 16.0 SECONDS (9.7-12.2) H 03/22/18 16:02 INR 1.5 03/22/18 16:02 APTT 31 SECONDS (21-34) 03/22/18 16:02 - Constitutional Appears: Cachectic, Chronically Ill - Head Exam Head Exam: ATRAUMATIC, NORMOCEPHALIC - Eye Exam Eye Exam: Normal appearance - ENT Exam Additional comments: ORAL ETT+OGT - Neck Exam Neck Exam: Normal Inspection - Respiratory Exam Respiratory Exam: Rhonchi. absent: Accessory Muscle Use, Respiratory Distress - Cardiovascular Exam Cardiovascular Exam: Tachycardia, +S1, +S2 - GI/Abdominal Exam GI & Abdominal Exam: Soft - Rectal Exam Rectal Exam: Deferred - Extremities Exam Extremities Exam: absent: Pedal Edema - Neurological Exam Neurological Exam: absent: Oriented x3 Additional comments: SEDATED - Skin Skin Exam: absent: Rash Assessment and Plan (1) Septic shock Status: Acute (2) Altered mental status Status: Acute (3) Pneumonia Status: Acute (4) Respiratory failure requiring intubation Status: Acute (5) COPD exacerbation Status: Acute (6) Cachexia Status: Acute (7) Cholelithiases Status: Acute (8) Alzheimer disease Status: Chronic - Assessment and Plan (Free Text) Assessment: ON IV LEVO TAPER, NOW 5UG. CONT AC SUPPORT., PULM TOILET., MONITOR O2 SAT. CXR REVIEWED? NEW SMALL LEFT PTX. MONITOR CLOSELY. FOR TRACH PER SURG. CONT AB. TOLERATING FEEDINGS. PROG POOR. DISCUSSED WITH STAFF AND RT AT LENGTH. TIME SPENT 1HR.
[2018-03-26] MEDS ORDERED: Sodium Chloride 0.9% 1,000 ML IV SCH (10:00)
--- NOTE | 2018-03-26 10:43 | CP.CCUPN ---
<Merry Farias - Last Filed: 03/26/18 10:40> CCU Subjective - Physician Review Subjective (Free Text): Critical Care Progress Note for Dr. Jara's service Patient seen and examined at bedside. Patient was agitated in morning. Limited ROS as patient is intubated. Critical Care Time Spent (in minutes): 35 CCU Objective - Vital Signs / Intake & Output Vital Signs (Last 4 hours): Vital Signs Temp Pulse Resp BP Pulse Ox 03/26/18 10:10 123 H 30 H 82/49 L 100 03/26/18 10:00 121 H 29 H 100 03/26/18 09:40 120 H 30 H 92/58 L 100 03/26/18 09:15 118 H 28 H 92/58 L 100 03/26/18 09:11 120 H 28 H 85/61 L 100 03/26/18 09:00 120 H 30 H 100 03/26/18 08:40 123 H 29 H 105/61 100 03/26/18 08:12 127 H 39 H 80/55 L 100 03/26/18 08:11 126 H 35 H 100 03/26/18 08:00 98.3 F 125 H 29 H 100 03/26/18 07:42 125 H 30 H 94/58 L 100 03/26/18 07:10 124 H 33 H 104/71 100 03/26/18 07:00 122 H 28 H 100 Intake and Output (Last 8hrs): Intake & Output 03/25/18 03/26/18 03/26/18 22:59 06:59 14:59 Intake Total 1752.5 1717.455 496 Output Total 540 675 300 Balance 1212.5 1042.455 196 Weight 112 lb 14.4 oz Intake: IV 150 334.01 Intake, IV Amount 1232.5 1013.445 376 R subclavian TLC medial 1000 800 300 port Right Proximal Port 232.5 213.445 76 Subclavian Tube Feeding 320 320 120 Other 50 50 Output: Urine 540 675 300 Urethral (Simmons) 540 675 300 - Physical Exam Head: Positive for: Atraumatic, Normocephalic Pupils: Positive for: PERRL Extroacular Muscles: Positive for: EOMI Conjunctiva: Positive for: Normal Ears: Positive for: Normal Mouth: Positive for: Dry, Other (ORAL ETT) Neck: Negative for: JVD Respiratory/Chest: Positive for: Good Air Exchange. Negative for: Respiratory Distress, Accessory Muscle Use Cardiovascular: Positive for: Regular Rate and Rhythm, Normal S1, S2. Negative for: Murmurs, Irregular Rhythm, Bradycardic Abdomen: Positive for: Normal Bowel Sounds. Negative for: Tenderness, Di stention, Peritoneal Signs Genitourinary Male: Positive for: Other (Simmons in place) Upper Extremity: Positive for: Normal Inspection. Negative for: Cyanosis, Edema Lower Extremity: Positive for: Normal Inspection. Negative for: Edema Neurological: Negative for: GCS=15 Skin: Positive for: Dry, Normal Color. Negative for: Erythematous Psychiatric: Negative for: Oriented x 3, Normal Insight - Medications Active Medications: Active Medications Generic Name Dose Route Start Last Admin Trade Name Freq PRN Reason Stop Dose Admin Enoxaparin Sodium 30 mg 03/07/18 11:00 03/26/18 09:28 Lovenox SC 30 mg DAILY VELMA Administration Fludrocortisone Acetate 0.1 mg 03/10/18 11:15 03/26/18 09:28 Florinef PO 0.1 mg DAILY VELMA Administration Hydromorphone HCl 0.5 mg 03/24/18 22:16 03/24/18 22:37 Dilaudid IVP 0.25 mg Q6H PRN Administration Pain, moderate (4-7) Meropenem 500 mg/ Sodium 100 mls @ 100 mls/hr 03/04/18 01:15 03/26/18 09:30 Chloride IVPB 100 mls/hr Q8H VELMA Administration Protocol Norepinephrine Bitartrate 4 mg 254 mls @ 15.24 mls/hr 03/25/18 08:54 03/26/18 06:15 / Sodium Chloride IV 5 mcg/min .[id number] PRN 19.05 mls/hr TITRATE PER MD ORDER Titration Protocol 4 MCG/MIN Sodium Chloride 1,000 mls @ 100 mls/hr 03/25/18 10:00 03/25/18 10:51 Sodium Chloride 0.9% IV 100 mls/hr .Q10H VELMA Administration Potassium Chloride 20 meq in 100 mls @ 50 mls/hr 03/26/18 08:15 03/26/18 10:20 Potassium Chloride 20 Meq/100 Ml IVPB 03/26/18 11:14 50 mls/hr Q1H VELMA Administration Sodium Chloride 1,000 mls @ 1,000 mls/hr 03/26/18 10:00 03/26/18 10:20 Sodium Chloride 0.9% IV 1,000 mls/hr .Q1H VELMA Administration Lorazepam 1 mg 03/26/18 08:07 03/26/18 08:47 Ativan IVP 1 mg Q4H PRN Administration Anxiety Methylprednisolone 40 mg 03/24/18 10:00 03/26/18 09:30 Solu-Medrol IVP 40 mg DAILY VELMA Administration Pantoprazole Sodium 40 mg 03/25/18 06:00 03/26/18 05:21 Protonix Susp PO 40 mg 0600 VELMA Administration Potassium Phos/Sodium Phos 1 pkt 03/22/18 14:00 03/26/18 09:29 Neutra-Phos PO 1 pkt TID VELMA Administration - Patient Studies Lab Studies: Lab Studies 03/26/18 03/26/18 03/26/18 Range/Units 06:09 05:20 05:20 WBC 22.7 H (4.8-10.8) K/uL RBC 2.89 L (4.40-5.90) Mil/uL Hgb 8.8 L (12.0-18.0) g/dL Hct 27.2 L (35.0-51.0) % MCV 93.9 (80.0-94.0) fL MCH 30.5 (27.0-31.0) pg MCHC 32.5 L (33.0-37.0) g/dL RDW 18.5 H (11.5-14.5) % Plt Count 174 (130-400) K/uL MPV 10.2 (7.2-11.7) fL Neut % (Auto) 92.3 H (50.0-75.0) % Lymph % (Auto) 5.6 L (20.0-40.0) % Amador % (Auto) 1.9 (0.0-10.0) % Eos % (Auto) 0.1 (0.0-4.0) % Baso % (Auto) 0.1 (0.0-2.0) % Neut # (Auto) 20.9 H (1.8-7.0) K/uL Lymph # (Auto) 1.3 (1.0-4.3) K/uL Amador # (Auto) 0.4 (0.0-0.8) K/uL Eos # (Auto) 0.0 (0.0-0.7) K/uL Baso # (Auto) 0.0 (0.0-0.2) K/uL Neutrophils % (Manual) 87 H (50-75) % Lymphocytes % (Manual) 12 L (20-40) % Monocytes % (Manual) 1 (0-10) % Nucleated RBC % 2 H (0-0) % Platelet Estimate Normal (NORMAL) Polychromasia Slight Hypochromasia (manual) Slight Anisocytosis (manual) Slight Sodium 145 (132-148) mmol/L Potassium 3.2 L (3.6-5.2) mmol/L Chloride 109 H (98-107) mmol/L Carbon Dioxide 34 H (22-30) mmol/L Anion Gap 6 L (10-20) BUN 29 H (9-20) mg/dL Creatinine 0.4 L (0.8-1.5) mg/dL Est GFR ( Amer) > 60 Est GFR (Non-Af Amer) > 60 POC Glucose (mg/dL) 135 H (65-110) mg/dL Random Glucose 127 H (75-110) mg/dL Calcium 7.6 L (8.6-10.4) mg/dl Phosphorus 3.5 (2.5-4.5) mg/dL Magnesium 1.8 (1.6-2.3) mg/dL Total Bilirubin 1.0 (0.2-1.3) mg/dL AST 41 (17-59) U/L ALT 64 (21-72) U/L Alkaline Phosphatase 191 H D (38-126) U/L Total Protein 4.9 L (6.3-8.3) g/dL Albumin 2.4 L (3.5-5.0) g/dL Globulin 2.6 (2.2-3.9) gm/dL Albumin/Globulin Ratio 0.9 L (1.0-2.1) 03/25/18 03/25/18 03/25/18 Range/Units 23:37 18:00 11:34 WBC (4.8-10.8) K/uL RBC (4.40-5.90) Mil/uL Hgb (12.0-18.0) g/dL Hct (35.0-51.0) % MCV (80.0-94.0) fL MCH (27.0-31.0) pg MCHC (33.0-37.0) g/dL RDW (11.5-14.5) % Plt Count (130-400) K/uL MPV (7.2-11.7) fL Neut % (Auto) (50.0-75.0) % Lymph % (Auto) (20.0-40.0) % Amador % (Auto) (0.0-10.0) % Eos % (Auto) (0.0-4.0) % Baso % (Auto) (0.0-2.0) % Neut # (Auto) (1.8-7.0) K/uL Lymph # (Auto) (1.0-4.3) K/uL Amador # (Auto) (0.0-0.8) K/uL Eos # (Auto) (0.0-0.7) K/uL Baso # (Auto) (0.0-0.2) K/uL Neutrophils % (Manual) (50-75) % Lymphocytes % (Manual) (20-40) % Monocytes % (Manual) (0-10) % Nucleated RBC % (0-0) % Platelet Estimate (NORMAL) Polychromasia Hypochromasia (manual) Anisocytosis (manual) Sodium (132-148) mmol/L Potassium (3.6-5.2) mmol/L Chloride (98-107) mmol/L Carbon Dioxide (22-30) mmol/L Anion Gap (10-20) BUN (9-20) mg/dL Creatinine (0.8-1.5) mg/dL Est GFR ( Amer) Est GFR (Non-Af Amer) POC Glucose (mg/dL) 145 H 173 H 136 H (65-110) mg/dL Random Glucose (75-110) mg/dL Calcium (8.6-10.4) mg/dl Phosphorus (2.5-4.5) mg/dL Magnesium (1.6-2.3) mg/dL Total Bilirubin (0.2-1.3) mg/dL AST (17-59) U/L ALT (21-72) U/L Alkaline Phosphatase (38-126) U/L Total Protein (6.3-8.3) g/dL Albumin (3.5-5.0) g/dL Globulin (2.2-3.9) gm/dL Albumin/Globulin Ratio (1.0-2.1) Laboratory Results - last 24 hr 03/25/18 03/25/18 03/25/18 11:34 18:00 23:37 WBC RBC Hgb Hct MCV MCH MCHC RDW Plt Count MPV Neut % (Auto) Lymph % (Auto) Amador % (Auto) Eos % (Auto) Baso % (Auto) Neut # (Auto) Lymph # (Auto) Amador # (Auto) Eos # (Auto) Baso # (Auto) Neutrophils % (Manual) Lymphocytes % (Manual) Monocytes % (Manual) Nucleated RBC % Platelet Estimate Polychromasia Hypochromasia (manual) Anisocytosis (manual) Sodium Potassium Chloride Carbon Dioxide Anion Gap BUN Creatinine Est GFR ( Amer) Est GFR (Non-Af Amer) POC Glucose (mg/dL) 136 H 173 H 145 H Random Glucose Calcium Phosphorus Magnesium Total Bilirubin AST ALT Alkaline Phosphatase Total Protein Albumin Globulin Albumin/Globulin Ratio 03/26/18 03/26/18 03/26/18 05:20 05:20 06:09 WBC 22.7 H RBC 2.89 L Hgb 8.8 L Hct 27.2 L MCV 93.9 MCH 30.5 MCHC 32.5 L RDW 18.5 H Plt Count 174 MPV 10.2 Neut % (Auto) 92.3 H Lymph % (Auto) 5.6 L Amador % (Auto) 1.9 Eos % (Auto) 0.1 Baso % (Auto) 0.1 Neut # (Auto) 20.9 H Lymph # (Auto) 1.3 Amador # (Auto) 0.4 Eos # (Auto) 0.0 Baso # (Auto) 0.0 Neutrophils % (Manual) 87 H Lymphocytes % (Manual) 12 L Monocytes % (Manual) 1 Nucleated RBC % 2 H Platelet Estimate Normal Polychromasia Slight Hypochromasia (manual) Slight Anisocytosis (manual) Slight Sodium 145 Potassium 3.2 L Chloride 109 H Carbon Dioxide 34 H Anion Gap 6 L BUN 29 H Creatinine 0.4 L Est GFR ( Amer) > 60 Est GFR (Non-Af Amer) > 60 POC Glucose (mg/dL) 135 H Random Glucose 127 H Calcium 7.6 L Phosphorus 3.5 Magnesium 1.8 Total Bilirubin 1.0 AST 41 ALT 64 Alkaline Phosphatase 191 H D Total Protein 4.9 L Albumin 2.4 L Globulin 2.6 Albumin/Globulin Ratio 0.9 L Radiology Impressions: Radiology Impressions Chest X-Ray 03/25/18 06:00 IMPRESSION: Left pneumothorax without tension or mediastinal shift. This is an interval change which was called up to the nurse taking care this patient, Khloe at 3:12 p.m. on 03/25/2018. Other findings as above. Chest X-Ray 03/26/18 07:00 IMPRESSION: Stable miles left pneumothorax with into inferior left pulmonary infiltrate reiterated. Advanced bilateral pulmonary interstitial fibrosis again evident as well on a chronic basis. Tubes and catheters unchanged in position. Fingerstick Blood Sugar Results: 135 Review of Systems - Review of Systems Systems not reviewed;Unavailable: Intubated Critical Care Progress Note - Ventilator Checklist Head of Bed 30 Degrees: Yes Daily Sedation Vacation: Yes Daily Assessment of Readiness to Wean: Yes Daily Spontaneous Breathing Trial: Yes PUD Prophalyxis: Yes DVT Prophylaxis: Yes Oral Care with Chlorhexidine Gluconate {CHG}: Yes - Vent Settings MODE:: PRVC TIDAL VOLUME:: 400 RESP RATE:: 16 FIO2:: 40 PEEP:: 5 - Extremities/Vascular Does the Patient have a Central Venous Catheter?: Yes Insertion Site: Internal Jugular Vein Does the Patient need a Central Venous Catheter?: Yes Does the Patient have a Simmons Catheter?: Yes Does the Patient need a Simmons Catheter?: Yes Catheter Insertion Criteria: Need for accurate measurement of output in critically ill patient - Prophylaxis GI Prophylaxis GI: PPI - Prophylaxis DVT Prophylaxis DVT: Lovenox Assessment/Plan - Assessment and Plan (Free Text) Assessment: Patient is a 72 yo male w/PMH of Alzheimer, COPD and arthritis admitted for hypoxic resp failure. Patient was intubated prior to transfer to ICU on 03-19 with subclavian TLC placed on 03/19 for hypotension. Neuro awake, alert; no sedation; baseline mental status ? for dementia Ativan PRN, Dilaudid PRN Pulm Intubated on Ventilator Solumedrol CV Fludrocortisone Levophed titrate as needed NS 1L Bolus GI no active issues Protonix Renal Neutrophos KCl 20meq x3 Repeat CMP in AM ID + cx for yeast and e coli on 03/02 + cx for yeast on 03/1203/19/18 repeat cx negative Meropenem (started on 03/04) DVT ppx: Lovenox GI ppx: Protonix Disposition: Must be medically optimized prior to trach and peg in terms of hypotension, Surgery trach/peg for 03/27 pending optimization PGY-1 [facility] d/w Dr. Jara <Nino Jara S - Last Filed: 03/26/18 16:49> CCU Objective - Vital Signs / Intake & Output Vital Signs (Last 4 hours): Vital Signs Temp Pulse Resp BP Pulse Ox 03/26/18 16:00 98.1 F 118 H 32 H 100 03/26/18 15:40 119 H 28 H 118/70 100 03/26/18 15:10 114 H 31 H 95/59 L 100 03/26/18 15:00 117 H 32 H 100 03/26/18 14:40 114 H 18 110/66 100 03/26/18 14:09 116 H 23 103/67 100 03/26/18 14:00 115 H 23 100 03/26/18 13:40 117 H 37 H 94/61 L 100 03/26/18 13:10 118 H 29 H 102/67 100 03/26/18 13:00 120 H 29 H 100 Intake and Output (Last 8hrs): Intake & Output 03/26/18 03/26/18 03/26/18 06:59 14:59 22:59 Intake Total 9749.096 2401.59 262.6 Output Total 675 850 Balance 4971.503 6844.59 262.6 Weight 112 lb 14.4 oz Intake: IV 334.01 123.99 Intake, IV Amount 2078.074 7872.6 222.6 R subclavian TLC medial 800 1700 200 port Right Distal Port 300 Subclavian Right Proximal Port 213.445 117.6 22.6 Subclavian Tube Feeding 320 320 40 Other 50 Output: Urine 675 850 Urethral (Simmons) 675 850 - Medications Active Medications: Active Medications Generic Name Dose Route Start Last Admin Trade Name Freq PRN Reason Stop Dose Admin Enoxaparin Sodium 30 mg 03/07/18 11:00 03/26/18 09:28 Lovenox SC 30 mg DAILY VELMA Administration Fludrocortisone Acetate 0.1 mg 03/10/18 11:15 03/26/18 09:28 Florinef PO 0.1 mg DAILY VELMA Administration Hydromorphone HCl 0.5 mg 03/24/18 22:16 03/24/18 22:37 Dilaudid IVP 0.25 mg Q6H PRN Administration Pain, moderate (4-7) Meropenem 500 mg/ Sodium 100 mls @ 100 mls/hr 03/04/18 01:15 03/26/18 09:30 Chloride IVPB 100 mls/hr Q8H VELMA Administration Protocol Norepinephrine Bitartrate 4 mg 254 mls @ 15.24 mls/hr 03/25/18 08:54 03/26/18 12:15 / Sodium Chloride IV 3 mcg/min .[id number] PRN 11.43 mls/hr TITRATE PER MD ORDER Titration Protocol 4 MCG/MIN Sodium Chloride 1,000 mls @ 100 mls/hr 03/25/18 10:00 03/26/18 11:45 Sodium Chloride 0.9% IV 100 mls/hr .Q10H VELMA Administration Lorazepam 1 mg 03/26/18 08:07 03/26/18 08:47 Ativan IVP 1 mg Q4H PRN Administration Anxiety Methylprednisolone 40 mg 03/24/18 10:00 03/26/18 09:30 Solu-Medrol IVP 40 mg DAILY VELMA Administration Pantoprazole Sodium 40 mg 03/25/18 06:00 03/26/18 05:21 Protonix Susp PO 40 mg 0600 VELMA Administration Potassium Phos/Sodium Phos 1 pkt 03/22/18 14:00 03/26/18 14:34 Neutra-Phos PO 1 pkt TID VELMA Administration - Patient Studies Lab Studies: Lab Studies 03/26/18 03/26/18 03/26/18 Range/Units 11:26 06:09 05:20 WBC (4.8-10.8) K/uL RBC (4.40-5.90) Mil/uL Hgb (12.0-18.0) g/dL Hct (35.0-51.0) % MCV (80.0-94.0) fL MCH (27.0-31.0) pg MCHC (33.0-37.0) g/dL RDW (11.5-14.5) % Plt Count (130-400) K/uL MPV (7.2-11.7) fL Neut % (Auto) (50.0-75.0) % Lymph % (Auto) (20.0-40.0) % Amador % (Auto) (0.0-10.0) % Eos % (Auto) (0.0-4.0) % Baso % (Auto) (0.0-2.0) % Neut # (Auto) (1.8-7.0) K/uL Lymph # (Auto) (1.0-4.3) K/uL Amador # (Auto) (0.0-0.8) K/uL Eos # (Auto) (0.0-0.7) K/uL Baso # (Auto) (0.0-0.2) K/uL Neutrophils % (Manual) (50-75) % Lymphocytes % (Manual) (20-40) % Monocytes % (Manual) (0-10) % Nucleated RBC % (0-0) % Platelet Estimate (NORMAL) Polychromasia Hypochromasia (manual) Anisocytosis (manual) Sodium 145 (132-148) mmol/L Potassium 3.2 L (3.6-5.2) mmol/L Chloride 109 H (98-107) mmol/L Carbon Dioxide 34 H (22-30) mmol/L Anion Gap 6 L (10-20) BUN 29 H (9-20) mg/dL Creatinine 0.4 L (0.8-1.5) mg/dL Est GFR ( Amer) > 60 Est GFR (Non-Af Amer) > 60 POC Glucose (mg/dL) 140 H 135 H (65-110) mg/dL Random Glucose 127 H (75-110) mg/dL Calcium 7.6 L (8.6-10.4) mg/dl Phosphorus 3.5 (2.5-4.5) mg/dL Magnesium 1.8 (1.6-2.3) mg/dL Total Bilirubin 1.0 (0.2-1.3) mg/dL AST 41 (17-59) U/L ALT 64 (21-72) U/L Alkaline Phosphatase 191 H D (38-126) U/L Total Protein 4.9 L (6.3-8.3) g/dL Albumin 2.4 L (3.5-5.0) g/dL Globulin 2.6 (2.2-3.9) gm/dL Albumin/Globulin Ratio 0.9 L (1.0-2.1) 03/26/18 03/25/18 03/25/18 Range/Units 05:20 23:37 18:00 WBC 22.7 H (4.8-10.8) K/uL RBC 2.89 L (4.40-5.90) Mil/uL Hgb 8.8 L (12.0-18.0) g/dL Hct 27.2 L (35.0-51.0) % MCV 93.9 (80.0-94.0) fL MCH 30.5 (27.0-31.0) pg MCHC 32.5 L (33.0-37.0) g/dL RDW 18.5 H (11.5-14.5) % Plt Count 174 (130-400) K/uL MPV 10.2 (7.2-11.7) fL Neut % (Auto) 92.3 H (50.0-75.0) % Lymph % (Auto) 5.6 L (20.0-40.0) % Amador % (Auto) 1.9 (0.0-10.0) % Eos % (Auto) 0.1 (0.0-4.0) % Baso % (Auto) 0.1 (0.0-2.0) % Neut # (Auto) 20.9 H (1.8-7.0) K/uL Lymph # (Auto) 1.3 (1.0-4.3) K/uL Amador # (Auto) 0.4 (0.0-0.8) K/uL Eos # (Auto) 0.0 (0.0-0.7) K/uL Baso # (Auto) 0.0 (0.0-0.2) K/uL Neutrophils % (Manual) 87 H (50-75) % Lymphocytes % (Manual) 12 L (20-40) % Monocytes % (Manual) 1 (0-10) % Nucleated RBC % 2 H (0-0) % Platelet Estimate Normal (NORMAL) Polychromasia Slight Hypochromasia (manual) Slight Anisocytosis (manual) Slight Sodium (132-148) mmol/L Potassium (3.6-5.2) mmol/L Chloride (98-107) mmol/L Carbon Dioxide (22-30) mmol/L Anion Gap (10-20) BUN (9-20) mg/dL Creatinine (0.8-1.5) mg/dL Est GFR ( Amer) Est GFR (Non-Af Amer) POC Glucose (mg/dL) 145 H 173 H (65-110) mg/dL Random Glucose (75-110) mg/dL Calcium (8.6-10.4) mg/dl Phosphorus (2.5-4.5) mg/dL Magnesium (1.6-2.3) mg/dL Total Bilirubin (0.2-1.3) mg/dL AST (17-59) U/L ALT (21-72) U/L Alkaline Phosphatase (38-126) U/L Total Protein (6.3-8.3) g/dL Albumin (3.5-5.0) g/dL Globulin (2.2-3.9) gm/dL Albumin/Globulin Ratio (1.0-2.1) Laboratory Results - last 24 hr 03/25/18 03/25/18 03/26/18 18:00 23:37 05:20 WBC 22.7 H RBC 2.89 L Hgb 8.8 L Hct 27.2 L MCV 93.9 MCH 30.5 MCHC 32.5 L RDW 18.5 H Plt Count 174 MPV 10.2 Neut % (Auto) 92.3 H Lymph % (Auto) 5.6 L Amador % (Auto) 1.9 Eos % (Auto) 0.1 Baso % (Auto) 0.1 Neut # (Auto) 20.9 H Lymph # (Auto) 1.3 Amador # (Auto) 0.4 Eos # (Auto) 0.0 Baso # (Auto) 0.0 Neutrophils % (Manual) 87 H Lymphocytes % (Manual) 12 L Monocytes % (Manual) 1 Nucleated RBC % 2 H Platelet Estimate Normal Polychromasia Slight Hypochromasia (manual) Slight Anisocytosis (manual) Slight Sodium Potassium Chloride Carbon Dioxide Anion Gap BUN Creatinine Est GFR ( Amer) Est GFR (Non-Af Amer) POC Glucose (mg/dL) 173 H 145 H Random Glucose Calcium Phosphorus Magnesium Total Bilirubin AST ALT Alkaline Phosphatase Total Protein Albumin Globulin Albumin/Globulin Ratio 03/26/18 03/26/18 03/26/18 05:20 06:09 11:26 WBC RBC Hgb Hct MCV MCH MCHC RDW Plt Count MPV Neut % (Auto) Lymph % (Auto) Amador % (Auto) Eos % (Auto) Baso % (Auto) Neut # (Auto) Lymph # (Auto) Amador # (Auto) Eos # (Auto) Baso # (Auto) Neutrophils % (Manual) Lymphocytes % (Manual) Monocytes % (Manual) Nucleated RBC % Platelet Estimate Polychromasia Hypochromasia (manual) Anisocytosis (manual) Sodium 145 Potassium 3.2 L Chloride 109 H Carbon Dioxide 34 H Anion Gap 6 L BUN 29 H Creatinine 0.4 L Est GFR ( Amer) > 60 Est GFR (Non-Af Amer) > 60 POC Glucose (mg/dL) 135 H 140 H Random Glucose 127 H Calcium 7.6 L Phosphorus 3.5 Magnesium 1.8 Total Bilirubin 1.0 AST 41 ALT 64 Alkaline Phosphatase 191 H D Total Protein 4.9 L Albumin 2.4 L Globulin 2.6 Albumin/Globulin Ratio 0.9 L Radiology Impressions: Radiology Impressions Chest X-Ray 03/26/18 07:00 IMPRESSION: Stable miles left pneumothorax with into inferior left pulmonary infiltrate reiterated. Advanced bilateral pulmonary interstitial fibrosis again evident as well on a chronic basis. Tubes and catheters unchanged in position. Attending/Attestation - Attestation I have personally seen and examined this patient.: Yes I have fully participated in the care of the patient.: Yes I have reviewed all pertinent clinical information: Yes Notes (Text): 03/26/18 16:48 Patient seen and examined in the intensive care unit. Remained intubated on ventilatory support Possible trach and PEG on Saturday Continue present treatment for now No change in mental status
--- NOTE | 2018-03-26 12:09 | CP.PCM.PN ---
Subjective - Date & Time of Evaluation Date of Evaluation: 03/26/18 Time of Evaluation: 12:08 - Subjective Subjective: Patient currently is on Levophed on a tapered dose blood pressure is maintained. On a respirator. Rest of the physical finding is unchanged Awaiting tracheostomy and PEG insertion. Objective - Vital Signs/Intake and Output Vital Signs (last 24 hours): Temp Pulse Resp BP Pulse Ox 98.3 F 116 H 31 H 113/59 L 100 03/26/18 08:00 03/26/18 12:00 03/26/18 12:00 03/26/18 11:40 03/26/18 12:00 Intake and Output: 03/26/18 03/26/18 11:59 23:59 Intake Total 3423.455 Output Total 930 Balance 2493.455 - Medications Medications: Current Medications Enoxaparin Sodium (Lovenox) 30 mg SC DAILY [facility] Last Admin: 03/26/18 09:28 Dose: 30 mg Fludrocortisone Acetate (Florinef) 0.1 mg PO DAILY [facility] Last Admin: 03/26/18 09:28 Dose: 0.1 mg Hydromorphone HCl (Dilaudid) 0.5 mg IVP Q6H PRN PRN Reason: Pain, moderate (4-7) Last Admin: 03/24/18 22:37 Dose: 0.25 mg Meropenem 500 mg/ Sodium (Chloride) 100 mls @ 100 mls/hr IVPB Q8H VELMA; Protocol Last Admin: 03/26/18 09:30 Dose: 100 mls/hr Norepinephrine Bitartrate 4 mg (/ Sodium Chloride) 254 mls @ 15.24 mls/hr IV .Q 16H40M PRN; Protocol PRN Reason: TITRATE PER MD ORDER Last Titration: 03/26/18 06:15 Dose: 5 mcg/min, 19.05 mls/hr Sodium Chloride (Sodium Chloride 0.9%) 1,000 mls @ 100 mls/hr IV .Q10H VELMA Last Admin: 03/26/18 11:45 Dose: 100 mls/hr Sodium Chloride (Sodium Chloride 0.9%) 1,000 mls @ 1,000 mls/hr IV .Q1H ONE Stop: 03/26/18 13:14 Lorazepam (Ativan) 1 mg IVP Q4H PRN PRN Reason: Anxiety Last Admin: 03/26/18 08:47 Dose: 1 mg Methylprednisolone (Solu-Medrol) 40 mg IVP DAILY [facility] Last Admin: 03/26/18 09:30 Dose: 40 mg Pantoprazole Sodium (Protonix Susp) 40 mg PO 0600 [facility] Last Admin: 03/26/18 05:21 Dose: 40 mg Potassium Phos/Sodium Phos (Neutra-Phos) 1 pkt PO TID [facility] Last Admin: 03/26/18 09:29 Dose: 1 pkt - Labs Labs: 03/26/18 05:20 03/26/18 05:20 PT 16.0 SECONDS (9.7-12.2) H 03/22/18 16:02 INR 1.5 03/22/18 16:02 APTT 31 SECONDS (21-34) 03/22/18 16:02
[2018-03-26] MEDS ORDERED: Sodium Chloride 0.9% 1,000 ML IV ONE (12:15)
--- NOTE | 2018-03-26 15:29 | CP.PCM.PN ---
Subjective - Date & Time of Evaluation Date of Evaluation: 03/26/18 Time of Evaluation: 15:29 - Subjective Subjective: AFEBRILE BP MAINTAINED ON VASOPRESSORS ON VENTILATOR AWAITING TRACHEOSTOMY / AND PEG. ON IV ANTIBIOTICS ROS; NA Objective - Vital Signs/Intake and Output Vital Signs (last 24 hours): Temp Pulse Resp BP Pulse Ox 98.3 F 115 H 23 94/61 L 100 03/26/18 08:00 03/26/18 14:00 03/26/18 14:00 03/26/18 13:40 03/26/18 14:00 Intake and Output: 03/26/18 03/26/18 06:59 18:59 Intake Total 2347.455 2561.59 Output Total 910 850 Balance 7980.640 9504.59 - Medications Medications: Current Medications Enoxaparin Sodium (Lovenox) 30 mg SC DAILY [facility] Last Admin: 03/26/18 09:28 Dose: 30 mg Fludrocortisone Acetate (Florinef) 0.1 mg PO DAILY [facility] Last Admin: 03/26/18 09:28 Dose: 0.1 mg Hydromorphone HCl (Dilaudid) 0.5 mg IVP Q6H PRN PRN Reason: Pain, moderate (4-7) Last Admin: 03/24/18 22:37 Dose: 0.25 mg Meropenem 500 mg/ Sodium (Chloride) 100 mls @ 100 mls/hr IVPB Q8H [facility]; Protocol Last Admin: 03/26/18 09:30 Dose: 100 mls/hr Norepinephrine Bitartrate 4 mg (/ Sodium Chloride) 254 mls @ 15.24 mls/hr IV .[id number] PRN; Protocol PRN Reason: TITRATE PER MD ORDER Last Titration: 03/26/18 12:15 Dose: 3 mcg/min, 11.43 mls/hr Sodium Chloride (Sodium Chloride 0.9%) 1,000 mls @ 100 mls/hr IV .Q10H [facility] Last Admin: 03/26/18 11:45 Dose: 100 mls/hr Lorazepam (Ativan) 1 mg IVP Q4H PRN PRN Reason: Anxiety Last Admin: 03/26/18 08:47 Dose: 1 mg Methylprednisolone (Solu-Medrol) 40 mg IVP DAILY [facility] Last Admin: 03/26/18 09:30 Dose: 40 mg Pantoprazole Sodium (Protonix Susp) 40 mg PO 0600 [facility] Last Admin: 03/26/18 05:21 Dose: 40 mg Potassium Phos/Sodium Phos (Neutra-Phos) 1 pkt PO TID [facility] Last Admin: 03/26/18 14:34 Dose: 1 pkt - Labs Labs: 03/26/18 05:20 03/26/18 05:20 PT 16.0 SECONDS (9.7-12.2) H 03/22/18 16:02 INR 1.5 03/22/18 16:02 APTT 31 SECONDS (21-34) 03/22/18 16:02 - Constitutional Appears: No Acute Distress, Cachectic, Chronically Ill - Head Exam Head Exam: NORMOCEPHALIC - Neck Exam Neck Exam: Normal Inspection Additional comments: ON VENTILATOR - Respiratory Exam Respiratory Exam: Decreased Breath Sounds, Rhonchi - Cardiovascular Exam Cardiovascular Exam: Tachycardia, REGULAR RHYTHM, +S1, +S2 - GI/Abdominal Exam GI & Abdominal Exam: Soft, Normal Bowel Sounds. absent: Tenderness - Extremities Exam Extremities Exam: Normal Capillary Refill. absent: Calf Tenderness, Pedal Edema - Neurological Exam Neurological Exam: Awake - Psychiatric Exam Psychiatric exam: Flat Affect - Skin Skin Exam: Normal Color, Warm Assessment and Plan (1) Sepsis associated hypotension Status: Acute (2) Respiratory failure requiring intubation Status: Acute (3) Altered mental status Status: Acute (4) Pneumonia Status: Acute (5) Abdominal pain Status: Acute (6) Cholelithiases Status: Acute - Assessment and Plan (Free Text) Plan: Plan: CONTINUE IV MERREM 500MG IVPB Q8HRLY 03/04/18 OFF IV MYCAFUNGIN 100MG IV PB Q 24 HRLY 03/04/18-TO 03/22/18 PATIENT FOR TRACH AND PEG WHEN STABLE. CONTINUE PULMONARY TOILET.
[2018-03-27] MEDS: Meropenem 500 MG in Sodium Chloride 0.9% 100 ML IVPB SCH ×3 (01:00→17:19)
[2018-03-27] MEDS: Sodium Chloride 0.9% 1,000 ML IV SCH ×3 (02:00→21:38)
[2018-03-27] MEDS: Pantoprazole 40 mg Susp UD PO SCH (05:43)
[2018-03-27 05:49] LABS: ARTERIAL BLOOD GAS HCO3 31.1 mmol/L (21-28); ARTERIAL BLOOD GAS HEMOGLOBIN 7.9 g/dL (11.7-17.4); ARTERIAL BLOOD GAS O2 SAT 99.6 % (95-98); ARTERIAL BLOOD GAS PCO2 42 mm/Hg (35-45); ARTERIAL BLOOD GAS PH 7.49 (7.35-7.45); ARTERIAL BLOOD GAS PO2 95 mm/Hg (80-100); ARTERIAL BLOOD GAS TCO2 33.3 mmol/L (22-28)
[2018-03-27 06:35] LABS: BASO % 0.1 % (0.0-2.0); EOS % 0.2 % (0.0-4.0); HEMOGLOBIN 7.8 g/dL (12.0-18.0); LYMPH # 0.7 K/uL (1.0-4.3); LYMPH % 4.3 % (20.0-40.0); MEAN CORPUSCULAR HEMOGLOBIN 30.2 pg (27.0-31.0); MEAN CORPUSCULAR HGB CONC 32.1 g/dL (33.0-37.0); MEAN PLATELET VOLUME 9.7 fL (7.2-11.7); MONO # 0.3 K/uL (0.0-0.8); MONO % 1.4 % (0.0-10.0); NEUT # 16.4 K/uL (1.8-7.0); NRBC % 1.5 % (0.0-2.0); PLATELET COUNT 150 K/uL (130-400); RBC 2.58 Mil/uL (4.40-5.90); RED CELL DISTRIBUTION WIDTH 18.4 % (11.5-14.5); WHITE BLOOD COUNT 17.4 K/uL (4.8-10.8)
[2018-03-27 07:01] LABS: ALB/GLOB RATIO 0.9 (1.0-2.1); ALBUMIN 2.2 g/dL (3.5-5.0); ALT/SGPT 56 U/L (21-72); AST/SGOT 43 U/L (17-59); BLOOD UREA NITROGEN 19 mg/dL (9-20); CALCIUM 7.5 mg/dl (8.6-10.4); GFR NON-AFRICAN AMERICAN > 60
[2018-03-27] MEDS ORDERED: Lidocaine/Epinephrine 1% 1:100000 10 ML IJ ONE (08:30)
[2018-03-27 08:33] LABS: BANDS 1 % (0-2); LYMPHOCYTE 5 % (20-40); MONOCYTE 4 % (0-10); MYELOCYTE 2 % (0-0); NEUTROPHIL 88 % (50-75); NUCLEATED RED BLOOD CELL 2 % (0-0); TOTAL CELLS COUNTED 100
[2018-03-27 08:34] LABS: ANISOCYTOSIS SLIGHT; BURR CELLS SLIGHT; HYPOCHROMIC SLIGHT; OVALOCYTES SLIGHT; PLATELET ESTIMATE NORMAL (NORMAL); POIKILOCYTOSIS SLIGHT; POLYCHROMIC SLIGHT
[2018-03-27 08:35] LABS: MICROCYTOSIS SLIGHT
[2018-03-27] MEDS ORDERED: Midazolam 2 MG/2 ML VIAL ONE (08:50)
--- NOTE | 2018-03-27 10:19 | PCM.SURG1 ---
Surgeon's Initial Post Op Note - Surgeon's Notes Surgeon: Dr. Woodard Aircraft Powerplant Repairer: Dr. Garcia PGY4, Dr. 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 Nutritional Deficiency Operative Findings: See operative report Post-Operative Diagnosis: same Operation Performed: Open Tracheostomy, #8. Percutaneous Endoscopic Gastrostomy Placement, 20F. Specimen/Specimens Removed: none Estimated Blood Loss: EBL {In ML}: 3 Blood Products Given: N/A Drains Used: No Drains Post-Op Condition: Fair Date of Surgery/Procedure: 03/27/18 Time of Surgery/Procedure: 10:21
[2018-03-27] MEDS: Potassium & Sodium Phosphate PO SCH ×3 (10:47→17:18)
[2018-03-27] MEDS: MethylPREDNISolone 40 mg Vial IVP SCH (10:49)
--- NOTE | 2018-03-27 11:05 | RAD ---
HISTORY: s/p trach COMPARISON: Chest x-ray performed 03/27/18 TECHNIQUE: Chest, one view. FINDINGS: Tracheostomy tube. Right-sided central venous catheter extends the SVC. Numerous external wires and leads obscure evaluation of the underlying parenchyma. LUNGS: Hypoinflation. Interstitial and fibrotic changes re-identified. Small bilateral pleural effusions. Left-sided pneumothorax measuring approximately 2 cm from pleural edge at the apex. CARDIOVASCULAR: Cardiomegaly. Ectatic aorta. Atherosclerotic calcifications. OSSEOUS STRUCTURES: Osseous demineralization. Degenerative changes. Metallic plate and screw fixation, right shoulder. VISUALIZED UPPER ABDOMEN: Unremarkable. OTHER FINDINGS: None. IMPRESSION: Hypoinflation. Interstitial and fibrotic changes re-identified. Small bilateral pleural effusions. Left-sided pneumothorax measuring approximately 2 cm from pleural edge at the apex. Cardiomegaly. Support lines and tubes as above.
[2018-03-27] MEDS: Enoxaparin 30 mg Syringe SC SCH ×2 (12:19→21:44)
--- NOTE | 2018-03-27 14:33 | CP.PCM.PN ---
Subjective - Date & Time of Evaluation Date of Evaluation: 03/27/18 Time of Evaluation: 14:33 - Subjective Subjective: Patient is status post tracheostomy and gastrostomy tube insertion Patient on vent vital signs are stable When stable will transfer the patient to LT[facility] Objective - Vital Signs/Intake and Output Vital Signs (last 24 hours): Temp Pulse Resp BP Pulse Ox 97.4 F L 95 H 23 120/60 100 03/27/18 13:45 03/27/18 13:45 03/27/18 13:45 03/27/18 13:45 03/27/18 12:15 Intake and Output: 03/27/18 03/27/18 11:59 23:59 Intake Total 1589.2 415 Output Total 890 300 Balance 699.2 115 - Medications Medications: Current Medications Enoxaparin Sodium (Lovenox) 30 mg SC DAILY [facility] Fludrocortisone Acetate (Florinef) 0.1 mg PO DAILY [facility] Last Admin: 03/27/18 10:47 Dose: Not Given Hydromorphone HCl (Dilaudid) 0.5 mg IVP Q6H PRN PRN Reason: Pain, moderate (4-7) Last Admin: 03/24/18 22:37 Dose: 0.25 mg Meropenem 500 mg/ Sodium (Chloride) 100 mls @ 100 mls/hr IVPB Q8H [facility]; Protocol Last Admin: 03/27/18 08:25 Dose: 100 mls/hr Norepinephrine Bitartrate 4 mg (/ Sodium Chloride) 254 mls @ 15.24 mls/hr IV .[id number] PRN; Protocol PRN Reason: TITRATE PER MD ORDER Last Titration: 03/27/18 11:30 Dose: 4 mcg/min, 15.24 mls/hr Sodium Chloride (Sodium Chloride 0.9%) 1,000 mls @ 100 mls/hr IV .Q10H [facility] Last Admin: 03/27/18 02:00 Dose: Not Given Potassium Chloride (Potassium Chloride 20 Meq/100 Ml) 20 meq in 100 mls @ 50 mls/hr IVPB Q2H [facility] Stop: 03/27/18 15:59 Last Admin: 03/27/18 12:24 Dose: 50 mls/hr Lorazepam (Ativan) 1 mg IVP Q4H PRN PRN Reason: Anxiety Last Admin: 03/26/18 08:47 Dose: 1 mg Methylprednisolone (Solu-Medrol) 40 mg IVP DAILY [facility] Last Admin: 03/27/18 10:49 Dose: 40 mg Pantoprazole Sodium (Protonix Susp) 40 mg PO 0600 [facility] Last Admin: 03/27/18 05:43 Dose: Not Given Potassium Phos/Sodium Phos (Neutra-Phos) 1 pkt PO TID [facility] Last Admin: 03/27/18 10:47 Dose: Not Given - Labs Labs: 03/27/18 06:26 03/27/18 06:26 PT 16.0 SECONDS (9.7-12.2) H 03/22/18 16:02 INR 1.5 03/22/18 16:02 APTT 31 SECONDS (21-34) 03/22/18 16:02
--- NOTE | 2018-03-27 15:42 | RAD ---
Date of service: 03/27/2018 HISTORY: intubated COMPARISON: 03/26/2018 FINDINGS: Endotracheal tube terminates 2.7 cm proximal to the mandie the nasogastric tube terminates in the stomach. Right subclavian line terminates in SVC. LUNGS: There is mild pulmonary venous congestion. There is atelectasis/scarring in the right lung base. There is redemonstration of fibrotic changes and interstitial thickening in the left mid lung. There is probable bronchiectasis in the left lower lobe. PLEURA: Worsening left pleural effusion. No pneumothorax with CARDIOVASCULAR: The heart is normal in size. No aortic atherosclerotic calcification present. OSSEOUS STRUCTURES: Within normal limits for the patient's age. Status post open reduction and internal fixation of left proximal humeral fracture. VISUALIZED UPPER ABDOMEN: Normal. OTHER FINDINGS: None. IMPRESSION: Little interval change in right basilar atelectasis/scarring and fibrotic changes in the left lung with presumable bronchiectasis in the left lower lobe. Worsening small left pleural effusion. Stable position of support line and tubes.
--- NOTE | 2018-03-27 15:58 | RAD ---
Date of service: 03/27/2018 HISTORY: PICC Insertion COMPARISON: 03/27/2018 at 10:20 a.m. FINDINGS: Stable position of tracheostomy tube. The right PICC line terminates at the cavoatrial junction. The right subclavian line terminates in the SVC. LUNGS: There is redemonstration of atelectasis/scarring in the right lung base. There is interstitial thickening and fibrotic changes in the left mid and lower lungs. There is biapical pleural thickening. PLEURA: Suspect small effusions. No pneumothorax. CARDIOVASCULAR: The heart is normal in size. No aortic atherosclerotic calcifications present. OSSEOUS STRUCTURES: Stable. VISUALIZED UPPER ABDOMEN: Normal. OTHER FINDINGS: None. IMPRESSION: Right PICC line terminates at the cavoatrial junction. Right subclavian line terminates in the SVC. Stable position of the tracheostomy tube. No significant interval change.
--- NOTE | 2018-03-27 16:24 | CP.CCUPN ---
<Merry Farias - Last Filed: 03/27/18 16:21> CCU Subjective - Physician Review Subjective (Free Text): Critical Care Progress Note for Dr. Gibbons's service Patient seen and examined at bedside. Limited ROS as patient on trach and not awake. s/p trach/peg. pending ltach acceptance. 03/27/18 16:23 CCU Objective - Vital Signs / Intake & Output Vital Signs (Last 4 hours): Vital Signs Temp Pulse Resp BP 03/27/18 13:45 97.4 F L 95 H 23 120/60 03/27/18 13:15 97.5 F L 103 H 21 123/73 03/27/18 12:45 97.8 F 101 H 22 91/61 L 03/27/18 12:30 97.4 F L 104 H 24 102/53 L Intake and Output (Last 8hrs): Intake & Output 03/27/18 03/27/18 03/27/18 06:59 14:59 22:59 Intake Total 917.25 1233.6 Output Total 900 490 Balance 17.25 743.6 Weight 130 lb Intake: IV 19 396 Intake, IV Amount 833.25 537.6 R subclavian TLC medial 800 500 port Right Proximal Port 33.25 37.6 Subclavian Tube Feeding 40 0 Blood Product 300 Red Blood Cells Cpd As1 200 Lr Unit [id number] Other 25 Output: Urine 900 490 Urethral (Simmons) 900 0 Urine, Voided 340 Oral Regurgitation 0 Other: # Bowel Movements 0 - Physical Exam Head: Positive for: Atraumatic, Normocephalic Pupils: Positive for: PERRL Extroacular Muscles: Positive for: EOMI Conjunctiva: Positive for: Normal Ears: Positive for: Normal Mouth: Positive for: Dry Neck: Positive for: Other (tracheostomy). Negative for: JVD Respiratory/Chest: Positive for: Good Air Exchange. Negative for: Respiratory Distress, Accessory Muscle Use Cardiovascular: Positive for: Regular Rate and Rhythm, Normal S1, S2. Negative for: Murmurs, Irregular Rhythm, Bradycardic Abdomen: Positive for: Normal Bowel Sounds. Negative for: Tenderness, Distention, Peritoneal Signs Genitourinary Male: Positive for: Other (Simmons in place) Upper Extremity: Positive for: Normal Inspection. Negative for: Cyanosis, Edema Lower Extremity: Positive for: Normal Inspection. Negative for: Edema Neurological: Negative for: GCS=15 Skin: Positive for: Dry, Normal Color, Other (picc line in right arm, right s ubclav TLC, Peg tube). Negative for: Erythematous Psychiatric: Negative for: Oriented x 3, Normal Insight - Medications Active Medications: Active Medications Generic Name Dose Route Start Last Admin Trade Name Freq PRN Reason Stop Dose Admin Enoxaparin Sodium 30 mg 03/27/18 22:00 Lovenox SC DAILY VELMA Fludrocortisone Acetate 0.1 mg 03/10/18 11:15 03/27/18 10:47 Florinef PO Not Given DAILY VELMA Hydromorphone HCl 0.5 mg 03/24/18 22:16 03/24/18 22:37 Dilaudid IVP 0.25 mg Q6H PRN Administration Pain, moderate (4-7) Meropenem 500 mg/ Sodium 100 mls @ 100 mls/hr 03/04/18 01:15 03/27/18 08:25 Chloride IVPB 100 mls/hr Q8H VELMA Administration Protocol Norepinephrine Bitartrate 4 mg 254 mls @ 15.24 mls/hr 03/25/18 08:54 03/27/18 11:30 / Sodium Chloride IV 4 mcg/min .[id number] PRN 15.24 mls/hr TITRATE PER MD ORDER Titration Protocol 4 MCG/MIN Sodium Chloride 1,000 mls @ 100 mls/hr 03/25/18 10:00 03/27/18 11:15 Sodium Chloride 0.9% IV 100 mls/hr .Q10H VELMA Administration Lorazepam 1 mg 03/26/18 08:07 03/26/18 08:47 Ativan IVP 1 mg Q4H PRN Administration Anxiety Methylprednisolone 40 mg 03/24/18 10:00 03/27/18 10:49 Solu-Medrol IVP 40 mg DAILY VELMA Administration Pantoprazole Sodium 40 mg 03/25/18 06:00 03/27/18 05:43 Protonix Susp PO Not Given 0600 VELMA Potassium Phos/Sodium Phos 1 pkt 03/22/18 14:00 03/27/18 14:00 Neutra-Phos PO Not Given TID VELMA - Patient Studies Lab Studies: Lab Studies 01/01/0303/27/18 03/27/18 Range/Units 11:43 07:19 06:26 WBC (4.8-10.8) K/uL RBC (4.40-5.90) Mil/uL Hgb (12.0-18.0) g/dL Hct (35.0-51.0) % MCV (80.0-94.0) fL MCH (27.0-31.0) pg MCHC (33.0-37.0) g/dL RDW (11.5-14.5) % Plt Count (130-400) K/uL MPV (7.2-11.7) fL Neut % (Auto) (50.0-75.0) % Lymph % (Auto) (20.0-40.0) % [place] % (Auto) (0.0-10.0) % Eos % (Auto) (0.0-4.0) % Baso % (Auto) (0.0-2.0) % Neut # (Auto) (1.8-7.0) K/uL Lymph # (Auto) (1.0-4.3) K/uL [place] # (Auto) (0.0-0.8) K/uL Eos # (Auto) (0.0-0.7) K/uL Baso # (Auto) (0.0-0.2) K/uL Neutrophils % (Manual) (50-75) % Band Neutrophils % (0-2) % Lymphocytes % (Manual) (20-40) % Monocytes % (Manual) (0-10) % Myelocytes % (0-0) % Nucleated RBC % (0-0) % Platelet Estimate (NORMAL) Polychromasia Hypochromasia (manual) Poikilocytosis (manual Anisocytosis (manual) Microcytosis (manual) Macrocytosis (manual) Ovalocytes Jay Cells Puncture Site pCO2 (35-45) mm/Hg pO2 (80-100) mm/Hg HCO3 (21-28) mmol/L ABG pH (7.35-7.45) ABG Total CO2 (22-28) mmol/L ABG O2 Saturation (95-98) % ABG Base Excess (-2.0-3.0) mmol/L ABG Hemoglobin (11.7-17.4) g/dL ABG Carboxyhemoglobin (0.5-1.5) % POC ABG HHb (Measured) (0.0-5.0) % ABG Methemoglobin (0.0-3.0) % [place] Test A-a O2 Difference mm/Hg Respiratory Index Hgb O2 Saturation (95.0-98.0) % Vent Mode Mechanical Rate FiO2 % Tidal Volume PEEP Sodium 140 (132-148) mmol/L Potassium 3.0 L (3.6-5.2) mmol/L Chloride 105 (98-107) mmol/L Carbon Dioxide 34 H (22-30) mmol/L Anion Gap 4 L (10-20) BUN 19 (9-20) mg/dL Creatinine 0.3 L (0.8-1.5) mg/dL Est GFR ( Amer) > 60 Est GFR (Non-Af Amer) > 60 POC Glucose (mg/dL) 98 (65-110) mg/dL Random Glucose 87 D (75-110) mg/dL Calcium 7.5 L (8.6-10.4) mg/dl Phosphorus 3.2 (2.5-4.5) mg/dL Magnesium 1.6 (1.6-2.3) mg/dL Total Bilirubin 1.4 H (0.2-1.3) mg/dL AST 43 (17-59) U/L ALT 56 (21-72) U/L Alkaline Phosphatase 144 H D (38-126) U/L Total Protein 4.8 L (6.3-8.3) g/dL Albumin 2.2 L (3.5-5.0) g/dL Globulin 2.5 (2.2-3.9) gm/dL Albumin/Globulin Ratio 0.9 L (1.0-2.1) Blood Type O POSITIVE Antibody Screen Negative 03/27/18 03/27/18 03/27/18 Range/Units 06:26 05:17 05:10 WBC 17.4 H (4.8-10.8) K/uL RBC 2.58 L (4.40-5.90) Mil/uL Hgb 7.8 L (12.0-18.0) g/dL Hct 24.2 L (35.0-51.0) % MCV 94.0 (80.0-94.0) fL MCH 30.2 (27.0-31.0) pg MCHC 32.1 L (33.0-37.0) g/dL RDW 18.4 H (11.5-14.5) % Plt Count 150 (130-400) K/uL MPV 9.7 (7.2-11.7) fL Neut % (Auto) 94.0 H (50.0-75.0) % Lymph % (Auto) 4.3 L (20.0-40.0) % [place] % (Auto) 1.4 (0.0-10.0) % Eos % (Auto) 0.2 (0.0-4.0) % Baso % (Auto) 0.1 (0.0-2.0) % Neut # (Auto) 16.4 H (1.8-7.0) K/uL Lymph # (Auto) 0.7 L (1.0-4.3) K/uL [place] # (Auto) 0.3 (0.0-0.8) K/uL Eos # (Auto) 0.0 (0.0-0.7) K/uL Baso # (Auto) 0.0 (0.0-0.2) K/uL Neutrophils % (Manual) 88 H (50-75) % Band Neutrophils % 1 (0-2) % Lymphocytes % (Manual) 5 L (20-40) % Monocytes % (Manual) 4 (0-10) % Myelocytes % 2 H (0-0) % Nucleated RBC % 2 H (0-0) % Platelet Estimate Normal (NORMAL) Polychromasia Slight Hypochromasia (manual) Slight Poikilocytosis (manual Slight Anisocytosis (manual) Slight Microcytosis (manual) Slight Macrocytosis (manual) Slight Ovalocytes Slight [place] Cells Slight Puncture Site Rb pCO2 42 (35-45) mm/Hg pO2 95 (80-100) mm/Hg HCO3 31.1 H (21-28) mmol/L ABG pH 7.49 H (7.35-7.45) ABG Total CO2 33.3 H (22-28) mmol/L ABG O2 Saturation 99.6 H (95-98) % ABG Base Excess 7.9 H (-2.0-3.0) mmol/L ABG Hemoglobin 7.9 L (11.7-17.4) g/dL ABG Carboxyhemoglobin 2.5 H (0.5-1.5) % POC ABG HHb (Measured) 0.4 (0.0-5.0) % ABG Methemoglobin 0.8 (0.0-3.0) % [place] Test Na A-a O2 Difference 138.0 mm/Hg Respiratory Index 1.5 Hgb O2 Saturation 96.4 (95.0-98.0) % Vent Mode Prvc Mechanical Rate 16 FiO2 40.0 % Tidal Volume 400 PEEP 5 Sodium (132-148) mmol/L Potassium (3.6-5.2) mmol/L Chloride (98-107) mmol/L Carbon Dioxide (22-30) mmol/L Anion Gap (10-20) BUN (9-20) mg/dL Creatinine (0.8-1.5) mg/dL Est GFR ( Amer) Est GFR (Non-Af Amer) POC Glucose (mg/dL) 89 (65-110) mg/dL Random Glucose (75-110) mg/dL Calcium (8.6-10.4) mg/dl Phosphorus (2.5-4.5) mg/dL Magnesium (1.6-2.3) mg/dL Total Bilirubin (0.2-1.3) mg/dL AST (17-59) U/L ALT (21-72) U/L Alkaline Phosphatase (38-126) U/L Total Protein (6.3-8.3) g/dL Albumin (3.5-5.0) g/dL Globulin (2.2-3.9) gm/dL Albumin/Globulin Ratio (1.0-2.1) Blood Type Antibody Screen 03/27/18 03/26/18 Range/Units 00:07 18:02 WBC (4.8-10.8) K/uL RBC (4.40-5.90) Mil/uL Hgb (12.0-18.0) g/dL Hct (35.0-51.0) % MCV (80.0-94.0) fL MCH (27.0-31.0) pg MCHC (33.0-37.0) g/dL RDW (11.5-14.5) % Plt Count (130-400) K/uL MPV (7.2-11.7) fL Neut % (Auto) (50.0-75.0) % Lymph % (Auto) (20.0-40.0) % [place] % (Auto) (0.0-10.0) % Eos % (Auto) (0.0-4.0) % Baso % (Auto) (0.0-2.0) % Neut # (Auto) (1.8-7.0) K/uL Lymph # (Auto) (1.0-4.3) K/uL [place] # (Auto) (0.0-0.8) K/uL Eos # (Auto) (0.0-0.7) K/uL Baso # (Auto) (0.0-0.2) K/uL Neutrophils % (Manual) (50-75) % Band Neutrophils % (0-2) % Lymphocytes % (Manual) (20-40) % Monocytes % (Manual) (0-10) % Myelocytes % (0-0) % Nucleated RBC % (0-0) % Platelet Estimate (NORMAL) Polychromasia Hypochromasia (manual) Poikilocytosis (manual Anisocytosis (manual) Microcytosis (manual) Macrocytosis (manual) Ovalocytes [place] Cells Puncture Site pCO2 (35-45) mm/Hg pO2 (80-100) mm/Hg HCO3 (21-28) mmol/L ABG pH (7.35-7.45) ABG Total CO2 (22-28) mmol/L ABG O2 Saturation (95-98) % ABG Base Excess (-2.0-3.0) mmol/L ABG Hemoglobin (11.7-17.4) g/dL ABG Carboxyhemoglobin (0.5-1.5) % POC ABG HHb (Measured) (0.0-5.0) % ABG Methemoglobin (0.0-3.0) % [place] Test A-a O2 Difference mm/Hg Respiratory Index Hgb O2 Saturation (95.0-98.0) % Vent Mode Mechanical Rate FiO2 % Tidal Volume PEEP Sodium (132-148) mmol/L Potassium (3.6-5.2) mmol/L Chloride (98-107) mmol/L Carbon Dioxide (22-30) mmol/L Anion Gap (10-20) BUN (9-20) mg/dL Creatinine (0.8-1.5) mg/dL Est GFR ( Amer) Est GFR (Non-Af Amer) POC Glucose (mg/dL) 156 H 157 H (65-110) mg/dL Random Glucose (75-110) mg/dL Calcium (8.6-10.4) mg/dl Phosphorus (2.5-4.5) mg/dL Magnesium (1.6-2.3) mg/dL Total Bilirubin (0.2-1.3) mg/dL AST (17-59) U/L ALT (21-72) U/L Alkaline Phosphatase (38-126) U/L Total Protein (6.3-8.3) g/dL Albumin (3.5-5.0) g/dL Globulin (2.2-3.9) gm/dL Albumin/Globulin Ratio (1.0-2.1) Blood Type Antibody Screen Laboratory Results - last 24 hr 03/26/18 03/27/18 03/27/18 18:02 00:07 05:10 WBC RBC Hgb Hct MCV MCH MCHC RDW Plt Count MPV Neut % (Auto) Lymph % (Auto) [place] % (Auto) Eos % (Auto) Baso % (Auto) Neut # (Auto) Lymph # (Auto) [place] # (Auto) Eos # (Auto) Baso # (Auto) Neutrophils % (Manual) Band Neutrophils % Lymphocytes % (Manual) Monocytes % (Manual) Myelocytes % Nucleated RBC % Platelet Estimate Polychromasia Hypochromasia (manual) Poikilocytosis (manual Anisocytosis (manual) Microcytosis (manual) Macrocytosis (manual) Ovalocytes Jay Cells Puncture Site pCO2 pO2 HCO3 ABG pH ABG Total CO2 ABG O2 Saturation ABG Base Excess ABG Hemoglobin ABG Carboxyhemoglobin POC ABG HHb (Measured) ABG Methemoglobin [place] Test A-a O2 Difference Respiratory Index Hgb O2 Saturation Vent Mode Mechanical Rate FiO2 Tidal Volume PEEP Sodium Potassium Chloride Carbon Dioxide Anion Gap BUN Creatinine Est GFR ( Amer) Est GFR (Non-Af Amer) POC Glucose (mg/dL) 157 H 156 H 89 Random Glucose Calcium Phosphorus Magnesium Total Bilirubin AST ALT Alkaline Phosphatase Total Protein Albumin Globulin Albumin/Globulin Ratio Blood Type Antibody Screen 03/27/18 03/27/18 03/27/18 05:17 06:26 06:26 WBC 17.4 H RBC 2.58 L Hgb 7.8 L Hct 24.2 L MCV 94.0 MCH 30.2 MCHC 32.1 L RDW 18.4 H Plt Count 150 MPV 9.7 Neut % (Auto) 94.0 H Lymph % (Auto) 4.3 L [place] % (Auto) 1.4 Eos % (Auto) 0.2 Baso % (Auto) 0.1 Neut # (Auto) 16.4 H Lymph # (Auto) 0.7 L [place] # (Auto) 0.3 Eos # (Auto) 0.0 Baso # (Auto) 0.0 Neutrophils % (Manual) 88 H Band Neutrophils % 1 Lymphocytes % (Manual) 5 L Monocytes % (Manual) 4 Myelocytes % 2 H Nucleated RBC % 2 H Platelet Estimate Normal Polychromasia Slight Hypochromasia (manual) Slight Poikilocytosis (manual Slight Anisocytosis (manual) Slight Microcytosis (manual) Slight Macrocytosis (manual) Slight Ovalocytes Slight Jay Cells Slight Puncture Site Rb pCO2 42 pO2 95 HCO3 31.1 H ABG pH 7.49 H ABG Total CO2 33.3 H ABG O2 Saturation 99.6 H ABG Base Excess 7.9 H ABG Hemoglobin 7.9 L ABG Carboxyhemoglobin 2.5 H POC ABG HHb (Measured) 0.4 ABG Methemoglobin 0.8 [place] Test Na A-a O2 Difference 138.0 Respiratory Index 1.5 Hgb O2 Saturation 96.4 Vent Mode Prvc Mechanical Rate 16 FiO2 40.0 Tidal Volume 400 PEEP 5 Sodium 140 Potassium 3.0 L Chloride 105 Carbon Dioxide 34 H Anion Gap 4 L BUN 19 Creatinine 0.3 L Est GFR ( Amer) > 60 Est GFR (Non-Af Amer) > 60 POC Glucose (mg/dL) Random Glucose 87 D Calcium 7.5 L Phosphorus 3.2 Magnesium 1.6 Total Bilirubin 1.4 H AST 43 ALT 56 Alkaline Phosphatase 144 H D Total Protein 4.8 L Albumin 2.2 L Globulin 2.5 Albumin/Globulin Ratio 0.9 L Blood Type Antibody Screen 03/27/18 03/27/18 07:19 11:43 WBC RBC Hgb Hct MCV MCH MCHC RDW Plt Count MPV Neut % (Auto) Lymph % (Auto) [place] % (Auto) Eos % (Auto) Baso % (Auto) Neut # (Auto) Lymph # (Auto) [place] # (Auto) Eos # (Auto) Baso # (Auto) Neutrophils % (Manual) Band Neutrophils % Lymphocytes % (Manual) Monocytes % (Manual) Myelocytes % Nucleated RBC % Platelet Estimate Polychromasia Hypochromasia (manual) Poikilocytosis (manual Anisocytosis (manual) Microcytosis (manual) Macrocytosis (manual) Ovalocytes [place] Cells Puncture Site pCO2 pO2 HCO3 ABG pH ABG Total CO2 ABG O2 Saturation ABG Base Excess ABG Hemoglobin ABG Carboxyhemoglobin POC ABG HHb (Measured) ABG Methemoglobin [place] Test A-a O2 Difference Respiratory Index Hgb O2 Saturation Vent Mode Mechanical Rate FiO2 Tidal Volume PEEP Sodium Potassium Chloride Carbon Dioxide Anion Gap BUN Creatinine Est GFR ( Amer) Est GFR (Non-Af Amer) POC Glucose (mg/dL) 98 Random Glucose Calcium Phosphorus Magnesium Total Bilirubin AST ALT Alkaline Phosphatase Total Protein Albumin Globulin Albumin/Globulin Ratio Blood Type O POSITIVE Antibody Screen Negative Radiology Impressions: Radiology Impressions Chest X-Ray 03/27/18 07:00 IMPRESSION: Little interval change in right basilar atelectasis/scarring and fibrotic changes in the left lung with presumable bronchiectasis in the left lower lobe. Worsening small left pleural effusion. Stable position of support line and tubes. Chest X-Ray 03/27/18 10:14 IMPRESSION: Hypoinflation. Interstitial and fibrotic changes re-identified. Small bilateral pleural effusions. Left-sided pneumothorax measuring approximately 2 cm from pleural edge at the apex. Cardiomegaly. Support lines and tubes as above. Chest X-Ray 03/27/18 15:22 IMPRESSION: Right PICC line terminates at the cavoatrial junction. Right subclavian line terminates in the SVC. Stable position of the tracheostomy tube. No significant interval change. Fingerstick Blood Sugar Results: 89 Review of Systems - Review of Systems Systems not reviewed;Unavailable: Acuity of Condition Critical Care Progress Note - Extremities/Vascular Does the Patient have a Central Venous Catheter?: Yes Insertion Site: Internal Jugular Vein Does the Patient need a Central Venous Catheter?: Yes Does the Patient have a Simmons Catheter?: Yes Does the Patient need a Simmons Catheter?: Yes Catheter Insertion Criteria: Need for accurate measurement of output in critically ill patient - Prophylaxis GI Prophylaxis GI: PPI - Prophylaxis DVT Prophylaxis DVT: Lovenox Assessment/Plan - Assessment and Plan (Free Text) Assessment: Patient is a 72 yo male w/PMH of Alzheimer, COPD and arthritis admitted for hypoxic resp failure. Patient was intubated prior to transfer to ICU on 03-19 with subclavian TLC placed on 03/19 for hypotension. Neuro no sedation; Patient not awake Dilaudid PRN; Ativan PRN Pulm trach on ventilator Solumedrol CV Fludrocortisone Levophed titrate as needed GI no active issues Protonix Renal Neutrophos KCl 20meq x3 Repeat CMP in AM ID + cx for yeast and e coli on 03/02 + cx for yeast on 03/1203/19/18 repeat cx negative Meropenem (started on 03/04) DVT ppx: Lovenox GI ppx: Protonix Disposition: s/p trach/peg; Patient pending ltach acceptance PGY-1 [facility] d/w Dr. Gibbons <Walter Gibbons M - Last Filed: 03/27/18 21:13> CCU Objective - Vital Signs / Intake & Output Vital Signs (Last 4 hours): Vital Signs Pulse Resp BP Pulse Ox 03/27/18 19:00 88 16 119/52 L 100 03/27/18 18:45 101 H 12 100 03/27/18 18:30 100 H 22 134/77 88 L 03/27/18 18:15 102 H 14 93 L 03/27/18 18:01 102 H 20 125/69 100 03/27/18 18:00 102 H 17 83 L 03/27/18 17:45 100 H 18 100 03/27/18 17:30 99 H 11 L 141/73 100 03/27/18 17:15 85 17 100 Intake and Output (Last 8hrs): Intake & Output 03/27/18 03/27/18 03/27/18 06:59 14:59 22:59 Intake Total 917.25 1563.6 795 Output Total 381 558 8583 Balance 17.25 1073.6 -205 Weight 130 lb Intake: IV 19 396 Intake, IV Amount 833.25 767.6 575 R subclavian TLC medial 800 700 500 port Right Proximal Port 33.25 67.6 75 Subclavian Tube Feeding 40 0 120 Blood Product 400 25 Red Blood Cells Cpd As1 300 25 Lr Unit [id number] Other 25 75 Red Blood Cells Cpd As1 75 Lr Unit [id number] Output: Urine 939 333 4625 Urethral (Simmons) 900 0 Urine, Voided 340 1000 Emesis 0 Oral Regurgitation 0 0 Other: # Bowel Movements 0 0 - Medications Active Medications: Active Medications Generic Name Dose Route Start Last Admin Trade Name Freq PRN Reason Stop Dose Admin Enoxaparin Sodium 30 mg 03/27/18 22:00 Lovenox SC DAILY VELMA Fludrocortisone Acetate 0.1 mg 03/10/18 11:15 03/27/18 10:47 Florinef PO Not Given DAILY VELMA Hydromorphone HCl 0.5 mg 03/24/18 22:16 03/24/18 22:37 Dilaudid IVP 0.25 mg Q6H PRN Administration Pain, moderate (4-7) Meropenem 500 mg/ Sodium 100 mls @ 100 mls/hr 03/04/18 01:15 03/27/18 17:19 Chloride IVPB 100 mls/hr Q8H VELMA Administration Protocol Norepinephrine Bitartrate 4 mg 254 mls @ 15.24 mls/hr 03/25/18 08:54 03/27/18 11:30 / Sodium Chloride IV 4 mcg/min .[id number] PRN 15.24 mls/hr TITRATE PER MD ORDER Titration Protocol 4 MCG/MIN Sodium Chloride 1,000 mls @ 100 mls/hr 03/25/18 10:00 03/27/18 11:15 Sodium Chloride 0.9% IV 100 mls/hr .Q10H VELMA Administration Lorazepam 1 mg 03/26/18 08:07 03/26/18 08:47 Ativan IVP 1 mg Q4H PRN Administration Anxiety Methylprednisolone 40 mg 03/24/18 10:00 03/27/18 10:49 Solu-Medrol IVP 40 mg DAILY VELMA Administration Pantoprazole Sodium 40 mg 03/25/18 06:00 03/27/18 05:43 Protonix Susp PO Not Given 0600 VELMA Potassium Phos/Sodium Phos 1 pkt 03/22/18 14:00 03/27/18 17:18 Neutra-Phos PO 1 pkt TID VELMA Administration - Patient Studies Lab Studies: Lab Studies 03/27/18 03/27/18 03/27/18 Range/Units 18:10 11:43 07:19 WBC (4.8-10.8) K/uL RBC (4.40-5.90) Mil/uL Hgb (12.0-18.0) g/dL Hct (35.0-51.0) % MCV (80.0-94.0) fL MCH (27.0-31.0) pg MCHC (33.0-37.0) g/dL RDW (11.5-14.5) % Plt Count (130-400) K/uL MPV (7.2-11.7) fL Neut % (Auto) (50.0-75.0) % Lymph % (Auto) (20.0-40.0) % [place] % (Auto) (0.0-10.0) % Eos % (Auto) (0.0-4.0) % Baso % (Auto) (0.0-2.0) % Neut # (Auto) (1.8-7.0) K/uL Lymph # (Auto) (1.0-4.3) K/uL [place] # (Auto) (0.0-0.8) K/uL Eos # (Auto) (0.0-0.7) K/uL Baso # (Auto) (0.0-0.2) K/uL Neutrophils % (Manual) (50-75) % Band Neutrophils % (0-2) % Lymphocytes % (Manual) (20-40) % Monocytes % (Manual) (0-10) % Myelocytes % (0-0) % Nucleated RBC % (0-0) % Platelet Estimate (NORMAL) Polychromasia Hypochromasia (manual) Poikilocytosis (manual Anisocytosis (manual) Microcytosis (manual) Macrocytosis (manual) Ovalocytes Jay Cells Puncture Site pCO2 (35-45) mm/Hg pO2 (80-100) mm/Hg HCO3 (21-28) mmol/L ABG pH (7.35-7.45) ABG Total CO2 (22-28) mmol/L ABG O2 Saturation (95-98) % ABG Base Excess (-2.0-3.0) mmol/L ABG Hemoglobin (11.7-17.4) g/dL ABG Carboxyhemoglobin (0.5-1.5) % POC ABG HHb (Measured) (0.0-5.0) % ABG Methemoglobin (0.0-3.0) % [place] Test A-a O2 Difference mm/Hg Respiratory Index Hgb O2 Saturation (95.0-98.0) % Vent Mode Mechanical Rate FiO2 % Tidal Volume PEEP Sodium (132-148) mmol/L Potassium (3.6-5.2) mmol/L Chloride (98-107) mmol/L Carbon Dioxide (22-30) mmol/L Anion Gap (10-20) BUN (9-20) mg/dL Creatinine (0.8-1.5) mg/dL Est GFR ( Amer) Est GFR (Non-Af Amer) POC Glucose (mg/dL) 136 H 98 (65-110) mg/dL Random Glucose (75-110) mg/dL Calcium (8.6-10.4) mg/dl Phosphorus (2.5-4.5) mg/dL Magnesium (1.6-2.3) mg/dL Total Bilirubin (0.2-1.3) mg/dL AST (17-59) U/L ALT (21-72) U/L Alkaline Phosphatase (38-126) U/L Total Protein (6.3-8.3) g/dL Albumin (3.5-5.0) g/dL Globulin (2.2-3.9) gm/dL Albumin/Globulin Ratio (1.0-2.1) Blood Type O POSITIVE Antibody Screen Negative 03/27/18 03/27/18 03/27/18 Range/Units 06:26 06:26 05:17 WBC 17.4 H (4.8-10.8) K/uL RBC 2.58 L (4.40-5.90) Mil/uL Hgb 7.8 L (12.0-18.0) g/dL Hct 24.2 L (35.0-51.0) % MCV 94.0 (80.0-94.0) fL MCH 30.2 (27.0-31.0) pg MCHC 32.1 L (33.0-37.0) g/dL RDW 18.4 H (11.5-14.5) % Plt Count 150 (130-400) K/uL MPV 9.7 (7.2-11.7) fL Neut % (Auto) 94.0 H (50.0-75.0) % Lymph % (Auto) 4.3 L (20.0-40.0) % [place] % (Auto) 1.4 (0.0-10.0) % Eos % (Auto) 0.2 (0.0-4.0) % Baso % (Auto) 0.1 (0.0-2.0) % Neut # (Auto) 16.4 H (1.8-7.0) K/uL Lymph # (Auto) 0.7 L (1.0-4.3) K/uL [place] # (Auto) 0.3 (0.0-0.8) K/uL Eos # (Auto) 0.0 (0.0-0.7) K/uL Baso # (Auto) 0.0 (0.0-0.2) K/uL Neutrophils % (Manual) 88 H (50-75) % Band Neutrophils % 1 (0-2) % Lymphocytes % (Manual) 5 L (20-40) % Monocytes % (Manual) 4 (0-10) % Myelocytes % 2 H (0-0) % Nucleated RBC % 2 H (0-0) % Platelet Estimate Normal (NORMAL) Polychromasia Slight Hypochromasia (manual) Slight Poikilocytosis (manual Slight Anisocytosis (manual) Slight Microcytosis (manual) Slight Macrocytosis (manual) Slight Ovalocytes Slight Jay Cells Slight Puncture Site Rb pCO2 42 (35-45) mm/Hg pO2 95 (80-100) mm/Hg HCO3 31.1 H (21-28) mmol/L ABG pH 7.49 H (7.35-7.45) ABG Total CO2 33.3 H (22-28) mmol/L ABG O2 Saturation 99.6 H (95-98) % ABG Base Excess 7.9 H (-2.0-3.0) mmol/L ABG Hemoglobin 7.9 L (11.7-17.4) g/dL ABG Carboxyhemoglobin 2.5 H (0.5-1.5) % POC ABG HHb (Measured) 0.4 (0.0-5.0) % ABG Methemoglobin 0.8 (0.0-3.0) % [place] Test Na A-a O2 Difference 138.0 mm/Hg Respiratory Index 1.5 Hgb O2 Saturation 96.4 (95.0-98.0) % Vent Mode Prvc Mechanical Rate 16 FiO2 40.0 % Tidal Volume 400 PEEP 5 Sodium 140 (132-148) mmol/L Potassium 3.0 L (3.6-5.2) mmol/L Chloride 105 (98-107) mmol/L Carbon Dioxide 34 H (22-30) mmol/L Anion Gap 4 L (10-20) BUN 19 (9-20) mg/dL Creatinine 0.3 L (0.8-1.5) mg/dL Est GFR ( Amer) > 60 Est GFR (Non-Af Amer) > 60 POC Glucose (mg/dL) (65-110) mg/dL Random Glucose 87 D (75-110) mg/dL Calcium 7.5 L (8.6-10.4) mg/dl Phosphorus 3.2 (2.5-4.5) mg/dL Magnesium 1.6 (1.6-2.3) mg/dL Total Bilirubin 1.4 H (0.2-1.3) mg/dL AST 43 (17-59) U/L ALT 56 (21-72) U/L Alkaline Phosphatase 144 H D (38-126) U/L Total Protein 4.8 L (6.3-8.3) g/dL Albumin 2.2 L (3.5-5.0) g/dL Globulin 2.5 (2.2-3.9) gm/dL Albumin/Globulin Ratio 0.9 L (1.0-2.1) Blood Type Antibody Screen 03/27/18 03/27/18 Range/Units 05:10 00:07 WBC (4.8-10.8) K/uL RBC (4.40-5.90) Mil/uL Hgb (12.0-18.0) g/dL Hct (35.0-51.0) % MCV (80.0-94.0) fL MCH (27.0-31.0) pg MCHC (33.0-37.0) g/dL RDW (11.5-14.5) % Plt Count (130-400) K/uL MPV (7.2-11.7) fL Neut % (Auto) (50.0-75.0) % Lymph % (Auto) (20.0-40.0) % [place] % (Auto) (0.0-10.0) % Eos % (Auto) (0.0-4.0) % Baso % (Auto) (0.0-2.0) % Neut # (Auto) (1.8-7.0) K/uL Lymph # (Auto) (1.0-4.3) K/uL [place] # (Auto) (0.0-0.8) K/uL Eos # (Auto) (0.0-0.7) K/uL Baso # (Auto) (0.0-0.2) K/uL Neutrophils % (Manual) (50-75) % Band Neutrophils % (0-2) % Lymphocytes % (Manual) (20-40) % Monocytes % (Manual) (0-10) % Myelocytes % (0-0) % Nucleated RBC % (0-0) % Platelet Estimate (NORMAL) Polychromasia Hypochromasia (manual) Poikilocytosis (manual Anisocytosis (manual) Microcytosis (manual) Macrocytosis (manual) Ovalocytes Jay Cells Puncture Site pCO2 (35-45) mm/Hg pO2 (80-100) mm/Hg HCO3 (21-28) mmol/L ABG pH (7.35-7.45) ABG Total CO2 (22-28) mmol/L ABG O2 Saturation (95-98) % ABG Base Excess (-2.0-3.0) mmol/L ABG Hemoglobin (11.7-17.4) g/dL ABG Carboxyhemoglobin (0.5-1.5) % POC ABG HHb (Measured) (0.0-5.0) % ABG Methemoglobin (0.0-3.0) % [place] Test A-a O2 Difference mm/Hg Respiratory Index Hgb O2 Saturation (95.0-98.0) % Vent Mode Mechanical Rate FiO2 % Tidal Volume PEEP Sodium (132-148) mmol/L Potassium (3.6-5.2) mmol/L Chloride (98-107) mmol/L Carbon Dioxide (22-30) mmol/L Anion Gap (10-20) BUN (9-20) mg/dL Creatinine (0.8-1.5) mg/dL Est GFR ( Amer) Est GFR (Non-Af Amer) POC Glucose (mg/dL) 89 156 H (65-110) mg/dL Random Glucose (75-110) mg/dL Calcium (8.6-10.4) mg/dl Phosphorus (2.5-4.5) mg/dL Magnesium (1.6-2.3) mg/dL Total Bilirubin (0.2-1.3) mg/dL AST (17-59) U/L ALT (21-72) U/L Alkaline Phosphatase (38-126) U/L Total Protein (6.3-8.3) g/dL Albumin (3.5-5.0) g/dL Globulin (2.2-3.9) gm/dL Albumin/Globulin Ratio (1.0-2.1) Blood Type Antibody Screen Laboratory Results - last 24 hr 03/27/18 03/27/18 03/27/18 00:07 05:10 05:17 WBC RBC Hgb Hct MCV MCH MCHC RDW Plt Count MPV Neut % (Auto) Lymph % (Auto) [place] % (Auto) Eos % (Auto) Baso % (Auto) Neut # (Auto) Lymph # (Auto) [place] # (Auto) Eos # (Auto) Baso # (Auto) Neutrophils % (Manual) Band Neutrophils % Lymphocytes % (Manual) Monocytes % (Manual) Myelocytes % Nucleated RBC % Platelet Estimate Polychromasia Hypochromasia (manual) Poikilocytosis (manual Anisocytosis (manual) Microcytosis (manual) Macrocytosis (manual) Ovalocytes [place] Cells Puncture Site Rb pCO2 42 pO2 95 HCO3 31.1 H ABG pH 7.49 H ABG Total CO2 33.3 H ABG O2 Saturation 99.6 H ABG Base Excess 7.9 H ABG Hemoglobin 7.9 L ABG Carboxyhemoglobin 2.5 H POC ABG HHb (Measured) 0.4 ABG Methemoglobin 0.8 [place] Test Na A-a O2 Difference 138.0 Respiratory Index 1.5 Hgb O2 Saturation 96.4 Vent Mode Prvc Mechanical Rate 16 FiO2 40.0 Tidal Volume 400 PEEP 5 Sodium Potassium Chloride Carbon Dioxide Anion Gap BUN Creatinine Est GFR ( Amer) Est GFR (Non-Af Amer) POC Glucose (mg/dL) 156 H 89 Random Glucose Calcium Phosphorus Magnesium Total Bilirubin AST ALT Alkaline Phosphatase Total Protein Albumin Globulin Albumin/Globulin Ratio Blood Type Antibody Screen 03/27/18 03/27/18 03/27/18 06:26 06:26 07:19 WBC 17.4 H RBC 2.58 L Hgb 7.8 L Hct 24.2 L MCV 94.0 MCH 30.2 MCHC 32.1 L RDW 18.4 H Plt Count 150 MPV 9.7 Neut % (Auto) 94.0 H Lymph % (Auto) 4.3 L [place] % (Auto) 1.4 Eos % (Auto) 0.2 Baso % (Auto) 0.1 Neut # (Auto) 16.4 H Lymph # (Auto) 0.7 L [place] # (Auto) 0.3 Eos # (Auto) 0.0 Baso # (Auto) 0.0 Neutrophils % (Manual) 88 H Band Neutrophils % 1 Lymphocytes % (Manual) 5 L Monocytes % (Manual) 4 Myelocytes % 2 H Nucleated RBC % 2 H Platelet Estimate Normal Polychromasia Slight Hypochromasia (manual) Slight Poikilocytosis (manual Slight Anisocytosis (manual) Slight Microcytosis (manual) Slight Macrocytosis (manual) Slight Ovalocytes Slight [place] Cells Slight Puncture Site pCO2 pO2 HCO3 ABG pH ABG Total CO2 ABG O2 Saturation ABG Base Excess ABG Hemoglobin ABG Carboxyhemoglobin POC ABG HHb (Measured) ABG Methemoglobin [place] Test A-a O2 Difference Respiratory Index Hgb O2 Saturation Vent Mode Mechanical Rate FiO2 Tidal Volume PEEP Sodium 140 Potassium 3.0 L Chloride 105 Carbon Dioxide 34 H Anion Gap 4 L BUN 19 Creatinine 0.3 L Est GFR ( Amer) > 60 Est GFR (Non-Af Amer) > 60 POC Glucose (mg/dL) Random Glucose 87 D Calcium 7.5 L Phosphorus 3.2 Magnesium 1.6 Total Bilirubin 1.4 H AST 43 ALT 56 Alkaline Phosphatase 144 H D Total Protein 4.8 L Albumin 2.2 L Globulin 2.5 Albumin/Globulin Ratio 0.9 L Blood Type O POSITIVE Antibody Screen Negative 03/27/18 03/27/18 11:43 18:10 WBC RBC Hgb Hct MCV MCH MCHC RDW Plt Count MPV Neut % (Auto) Lymph % (Auto) [place] % (Auto) Eos % (Auto) Baso % (Auto) Neut # (Auto) Lymph # (Auto) [place] # (Auto) Eos # (Auto) Baso # (Auto) Neutrophils % (Manual) Band Neutrophils % Lymphocytes % (Manual) Monocytes % (Manual) Myelocytes % Nucleated RBC % Platelet Estimate Polychromasia Hypochromasia (manual) Poikilocytosis (manual Anisocytosis (manual) Microcytosis (manual) Macrocytosis (manual) Ovalocytes [place] Cells Puncture Site pCO2 pO2 HCO3 ABG pH ABG Total CO2 ABG O2 Saturation ABG Base Excess ABG Hemoglobin ABG Carboxyhemoglobin POC ABG HHb (Measured) ABG Methemoglobin [place] Test A-a O2 Difference Respiratory Index Hgb O2 Saturation Vent Mode Mechanical Rate FiO2 Tidal Volume PEEP Sodium Potassium Chloride Carbon Dioxide Anion Gap BUN Creatinine Est GFR ( Amer) Est GFR (Non-Af Amer) POC Glucose (mg/dL) 98 136 H Random Glucose Calcium Phosphorus Magnesium Total Bilirubin AST ALT Alkaline Phosphatase Total Protein Albumin Globulin Albumin/Globulin Ratio Blood Type Antibody Screen Radiology Impressions: Radiology Impressions Chest X-Ray 03/27/18 07:00 IMPRESSION: Little interval change in right basilar atelectasis/scarring and fibrotic changes in the left lung with presumable bronchiectasis in the left lower lobe. Worsening small left pleural effusion. Stable position of support line and tubes. Chest X-Ray 03/27/18 10:14 IMPRESSION: Hypoinflation. Interstitial and fibrotic changes re-identified. Small bilateral pleural effusions. Left-sided pneumothorax measuring approximately 2 cm from pleural edge at the apex. Cardiomegaly. Support lines and tubes as above. Chest X-Ray 03/27/18 15:22 IMPRESSION: Right PICC line terminates at the cavoatrial junction. Right subclavian line terminates in the SVC. Stable position of the tracheostomy tube. No significant interval change. Attending/Attestation - Attestation I have personally seen and examined this patient.: Yes I have fully participated in the care of the patient.: Yes I have reviewed all pertinent clinical information: Yes Notes (Text): 03/27/18 21:13 Today: March The Patient was seen and examined at the bedside, Medical records reviewed, and management issues were discussed and formulated with the house staff. I have reviewed all the relevant clinical, laboratory, hemodynamic, radiographic data and medications Events reviewed Pain issues, skin care, head of the bed elevation, glycemic control were addressed. Agree with above resident's assessment and treatment plans of care as transcribed in Dr. Farias's note.
--- NOTE | 2018-03-27 19:05 | CP.PCM.PN ---
Subjective - Date & Time of Evaluation Date of Evaluation: 03/27/18 Time of Evaluation: 19:03 - Subjective Subjective: PT ON VENT VIA TRACH. ROS; UNOBTAINABLE Objective - Vital Signs/Intake and Output Vital Signs (last 24 hours): Temp Pulse Resp BP Pulse Ox 97.5 F L 88 16 108/46 L 100 03/27/18 16:00 03/27/18 17:00 03/27/18 17:00 03/27/18 17:00 03/27/18 17:00 Intake and Output: 03/27/18 03/28/18 18:59 06:59 Intake Total 1893.6 Output Total 590 Balance 1303.6 - Medications Medications: Current Medications Enoxaparin Sodium (Lovenox) 30 mg SC DAILY [facility] Fludrocortisone Acetate (Florinef) 0.1 mg PO DAILY [facility] Last Admin: 03/27/18 10:47 Dose: Not Given Hydromorphone HCl (Dilaudid) 0.5 mg IVP Q6H PRN PRN Reason: Pain, moderate (4-7) Last Admin: 03/24/18 22:37 Dose: 0.25 mg Meropenem 500 mg/ Sodium (Chloride) 100 mls @ 100 mls/hr IVPB Q8H [facility]; Protocol Last Admin: 03/27/18 17:19 Dose: 100 mls/hr Norepinephrine Bitartrate 4 mg (/ Sodium Chloride) 254 mls @ 15.24 mls/hr IV .[id number] PRN; Protocol PRN Reason: TITRATE PER MD ORDER Last Titration: 03/27/18 11:30 Dose: 4 mcg/min, 15.24 mls/hr Sodium Chloride (Sodium Chloride 0.9%) 1,000 mls @ 100 mls/hr IV .Q10H [facility] Last Admin: 03/27/18 11:15 Dose: 100 mls/hr Lorazepam (Ativan) 1 mg IVP Q4H PRN PRN Reason: Anxiety Last Admin: 03/26/18 08:47 Dose: 1 mg Methylprednisolone (Solu-Medrol) 40 mg IVP DAILY [facility] Last Admin: 03/27/18 10:49 Dose: 40 mg Pantoprazole Sodium (Protonix Susp) 40 mg PO 0600 [facility] Last Admin: 03/27/18 05:43 Dose: Not Given Potassium Phos/Sodium Phos (Neutra-Phos) 1 pkt PO TID [facility] Last Admin: 03/27/18 17:18 Dose: 1 pkt - Labs Labs: 03/27/18 06:26 03/27/18 06:26 PT 16.0 SECONDS (9.7-12.2) H 03/22/18 16:02 INR 1.5 03/22/18 16:02 APTT 31 SECONDS (21-34) 03/22/18 16:02 - Constitutional Appears: Cachectic, Chronically Ill - Head Exam Head Exam: ATRAUMATIC, NORMOCEPHALIC - Eye Exam Eye Exam: Normal appearance - ENT Exam ENT Exam: Mucous Membranes Moist - Neck Exam Neck Exam: Normal Inspection Additional comments: +TRACH - Respiratory Exam Respiratory Exam: Rhonchi - Cardiovascular Exam Cardiovascular Exam: Tachycardia, RRR, +S1, +S2 - GI/Abdominal Exam GI & Abdominal Exam: Soft Additional comments: PEG+ - Rectal Exam Rectal Exam: Deferred - Extremities Exam Extremities Exam: absent: Pedal Edema - Back Exam Back Exam: absent: rash noted - Neurological Exam Additional comments: SEDATED - Skin Skin Exam: absent: Rash Assessment and Plan (1) Septic shock Status: Acute (2) Altered mental status Status: Acute (3) Pneumonia Status: Acute (4) Respiratory failure requiring intubation Status: Acute (5) COPD exacerbation Status: Acute (6) Cachexia Status: Acute (7) Cholelithiases Status: Acute (8) Alzheimer disease Status: Chronic - Assessment and Plan (Free Text) Assessment: RESP STATUS STABLE S/P TRACH TODAY, CONT AC SUPPORT. PULM TOILET., ON IV LEVO TAPER., F/U H/H POST TRANS PRBC. PEG FEEDINGS PER GI. CXR REVIEWED. CONT AB PER ID. PROG POOR. DISCUSSED WITH STAFF AT LENGTH. TIME SPENT 1HR.
[2018-03-27] MEDS: HYDROmorphone 0.5 mg/0.5 ml ISec IVP PRN ×2 (20:45→21:30)
--- NOTE | 2018-03-27 23:47 | CP.PCM.PN ---
Subjective - Date & Time of Evaluation Date of Evaluation: 03/27/18 Time of Evaluation: 23:47 - Subjective Subjective: PT ON VENTILATOR VIA TRACH VS NOTED S/P Open Tracheostomy, #8. S/P Percutaneous Endoscopic Gastrostomy Placement, 20F. ROS : NA Objective - Vital Signs/Intake and Output Vital Signs (last 24 hours): Temp Pulse Resp BP Pulse Ox 97.5 F L 88 16 119/52 L 100 03/27/18 16:00 03/27/18 19:00 03/27/18 19:00 03/27/18 19:00 03/27/18 19:00 Intake and Output: 03/27/18 03/28/18 18:59 06:59 Intake Total 2203.6 155 Output Total 1490 0 Balance 713.6 155 - Medications Medications: Current Medications Enoxaparin Sodium (Lovenox) 30 mg SC DAILY [facility] B[facility]S AT [facility] Last Admin: 03/27/18 21:44 Dose: 30 mg Fludrocortisone Acetate (Florinef) 0.1 mg PO DAILY [facility] 234 BEDS AT THE [facility] Last Admin: 03/27/18 10:47 Dose: Not Given Hydromorphone HCl (Dilaudid) 0.5 mg IVP Q6H PRN PRN Reason: Pain, moderate (4-7) Last Admin: 03/27/18 20:45 Dose: 0.5 mg Meropenem 500 mg/ Sodium (Chloride) 100 mls @ 100 mls/hr IVPB Q8H COUNTS [facility]CLUDE 234 BEDS AT THE [facility]; Protocol Last Admin: 03/27/18 17:19 Dose: 100 mls/hr Norepinephrine Bitartrate 4 mg (/ Sodium Chloride) 254 mls @ 15.24 mls/hr IV .[id number] PRN; Protocol PRN Reason: TITRATE PER MD ORDER Last Titration: 03/27/18 11:30 Dose: 4 mcg/min, 15.24 mls/hr Sodium Chloride (Sodium Chloride 0.9%) 1,000 mls @ 100 mls/hr IV .Q10H [facility] Last Admin: 03/27/18 21:38 Dose: 100 mls/hr Lorazepam (Ativan) 1 mg IVP Q4H PRN PRN Reason: Anxiety Last Admin: 03/26/18 08:47 Dose: 1 mg Methylprednisolone (Solu-Medrol) 40 mg IVP DAILY [facility] 234 BEDS AT [facility] Last Admin: 03/27/18 10:49 Dose: 40 mg Pantoprazole Sodium (Protonix Susp) 40 mg PO 0600 [facility] 234 BEDS AT THE [facility] Last Admin: 03/27/18 05:43 Dose: Not Given Potassium Phos/Sodium Phos (Neutra-Phos) 1 pkt PO TID [facility]CLUDE 234 BEDS AT THE [facility] Last Admin: 03/27/18 17:18 Dose: 1 pkt - Labs Labs: 03/27/18 06:26 03/27/18 06:26 PT 16.0 SECONDS (9.7-12.2) H 03/22/18 16:02 INR 1.5 03/22/18 16:02 APTT 31 SECONDS (21-34) 03/22/18 16:02 - Constitutional Appears: No Acute Distress, Cachectic, Chronically Ill - Head Exam Head Exam: NORMAL INSPECTION - Eye Exam Eye Exam: Normal appearance - ENT Exam ENT Exam: Mucous Membranes Dry - Neck Exam Neck Exam: Normal Inspection - Respiratory Exam Respiratory Exam: Decreased Breath Sounds, Rhonchi - Cardiovascular Exam Cardiovascular Exam: Tachycardia, REGULAR RHYTHM, +S1, +S2 - GI/Abdominal Exam GI & Abdominal Exam: Soft (+VE GT), Normal Bowel Sounds - Extremities Exam Extremities Exam: absent: Calf Tenderness, Pedal Edema - Neurological Exam Neurological Exam: Altered - Psychiatric Exam Psychiatric exam: Flat Affect - Skin Skin Exam: Normal Color, Warm Assessment and Plan (1) Sepsis associated hypotension Status: Acute (2) Respiratory failure requiring intubation Status: Acute (3) Altered mental status Status: Acute (4) Pneumonia Status: Acute (5) Abdominal pain Status: Acute (6) Cholelithiases Status: Acute - Assessment and Plan (Free Text) Plan: Plan: CONTINUE IV MERREM 500MG IVPB Q8HRLY 03/04/18 FOR NOW . PT ON VASOPRESSORS CONTINUE PULMONARY TOILET.
[2018-03-28] MEDS: Meropenem 500 MG in Sodium Chloride 0.9% 100 ML IVPB SCH ×3 (00:14→17:30)
[2018-03-28] MEDS ORDERED: HYDROmorphone 1 mg/ml ISec IVP STA (00:17)
[2018-03-28] MEDS: HYDROmorphone 0.5 mg/0.5 ml ISec IVP PRN ×2 (01:45→06:00)
[2018-03-28 06:30] LABS: BASO % 0.1 % (0.0-2.0); EOS # 0.1 K/uL (0.0-0.7); EOS % 0.3 % (0.0-4.0); HEMOGLOBIN 8.6 g/dL (12.0-18.0); LYMPH # 0.5 K/uL (1.0-4.3); LYMPH % 3.2 % (20.0-40.0); MEAN CELL VOLUME 90.8 fL (80.0-94.0); MEAN CORPUSCULAR HGB CONC 33.1 g/dL (33.0-37.0); MEAN PLATELET VOLUME 9.2 fL (7.2-11.7); MONO # 0.2 K/uL (0.0-0.8); MONO % 0.9 % (0.0-10.0); NEUT # 15.5 K/uL (1.8-7.0); NEUT % 95.5 % (50.0-75.0); NRBC % 0.8 % (0.0-2.0); PLATELET COUNT 133 K/uL (130-400); RBC 2.85 Mil/uL (4.40-5.90); RED CELL DISTRIBUTION WIDTH 18.6 % (11.5-14.5); WHITE BLOOD COUNT 16.2 K/uL (4.8-10.8)
[2018-03-28] MEDS: Pantoprazole 40 mg Susp UD PO SCH (06:35)
[2018-03-28 06:48] LABS: ALB/GLOB RATIO 0.9 (1.0-2.1); ALBUMIN 2.1 g/dL (3.5-5.0); ALT/SGPT 47 U/L (21-72); AST/SGOT 42 U/L (17-59); BLOOD UREA NITROGEN 17 mg/dL (9-20); GFR NON-AFRICAN AMERICAN > 60
[2018-03-28] MEDS: Sodium Chloride 0.9% 1,000 ML IV SCH (06:59)
[2018-03-28] MEDS ORDERED: Magnesium Sulfate 1 gm in D5W 1 GM/100 ML BAG IVPB ONE (08:00)
--- NOTE | 2018-03-28 08:41 | CP.PCM.PN ---
Subjective - Date & Time of Evaluation Date of Evaluation: 03/28/18 Time of Evaluation: 07:00 - Subjective Subjective: CT surgery progress note. Dr. Woodard Pt seen and examined at bedside this morning. Trach site clean and dry. PEG in tact, feedings started and going in at 40cc/hr this morning. No new complaints. Objective - Vital Signs/Intake and Output Vital Signs (last 24 hours): Temp Pulse Resp BP Pulse Ox 98.5 F 99 H 21 109/59 L 100 03/28/18 07:59 03/28/18 07:59 03/28/18 07:30 03/28/18 07:30 03/28/18 07:59 Intake and Output: 03/28/18 03/28/18 06:59 18:59 Intake Total 349 Output Total 0 Balance 349 - Medications Medications: Current Medications Enoxaparin Sodium (Lovenox) 30 mg SC DAILY [facility] Last Admin: 03/27/18 21:44 Dose: 30 mg Fludrocortisone Acetate (Florinef) 0.1 mg PO DAILY [facility] Last Admin: 03/27/18 10:47 Dose: Not Given Hydromorphone HCl (Dilaudid) 0.5 mg IVP Q4H PRN PRN Reason: Pain, moderate (4-7) Last Admin: 03/28/18 06:00 Dose: 0.5 mg Meropenem 500 mg/ Sodium (Chloride) 100 mls @ 100 mls/hr IVPB Q8H [facility]; Protocol Last Admin: 03/28/18 00:14 Dose: 100 mls/hr Norepinephrine Bitartrate 4 mg (/ Sodium Chloride) 254 mls @ 15.24 mls/hr IV .[id number] PRN; Protocol PRN Reason: TITRATE PER MD ORDER Last Titration: 03/28/18 06:30 Dose: 2 mcg/min, 7.62 mls/hr Sodium Chloride (Sodium Chloride 0.9%) 1,000 mls @ 100 mls/hr IV .Q10H [facility] Last Admin: 03/28/18 06:59 Dose: 100 mls/hr Magnesium Sulfate/Dextrose (Magnesium Sulfate 1 Gm/100 Ml D5w) 1 gm in 100 mls @ 200 mls/hr IVPB ONCE ONE Stop: 03/28/18 08:29 Last Admin: 03/28/18 08:06 Dose: 200 mls/hr Potassium Chloride (Potassium Chloride 20 Meq/100 Ml) 20 meq in 100 mls @ 50 mls/hr IVPB Q2H [facility] Stop: 03/28/18 15:59 Last Admin: 03/28/18 08:12 Dose: 50 mls/hr Lorazepam (Ativan) 1 mg IVP Q4H PRN PRN Reason: Anxiety Last Admin: 03/26/18 08:47 Dose: 1 mg Methylprednisolone (Solu-Medrol) 40 mg IVP DAILY [facility] Last Admin: 03/27/18 10:49 Dose: 40 mg Pantoprazole Sodium (Protonix Susp) 40 mg PO 0600 [facility] Last Admin: 03/28/18 06:35 Dose: 40 mg Potassium Phos/Sodium Phos (Neutra-Phos) 1 pkt PO TID [facility] Last Admin: 03/27/18 17:18 Dose: 1 pkt - Labs Labs: 03/28/18 06:21 03/28/18 06:21 PT 16.0 SECONDS (9.7-12.2) H 03/22/18 16:02 INR 1.5 03/22/18 16:02 APTT 31 SECONDS (21-34) 03/22/18 16:02 - Constitutional Appears: Non-toxic, Chronically Ill - Head Exam Head Exam: ATRAUMATIC, NORMAL INSPECTION, NORMOCEPHALIC - Eye Exam Eye Exam: EOMI, Normal appearance. absent: Scleral icterus - ENT Exam ENT Exam: Mucous Membranes Moist - Respiratory Exam Respiratory Exam: NORMAL BREATHING PATTERN. absent: Accessory Muscle Use, Resp iratory Distress - Cardiovascular Exam Cardiovascular Exam: absent: JVD - GI/Abdominal Exam GI & Abdominal Exam: Soft. absent: Distended, Guarding, Tenderness, Rebound - Neurological Exam Neurological Exam: Alert, Awake, Oriented x3 - Skin Skin Exam: Dry, Intact, Normal Color, Warm Assessment and Plan - Assessment and Plan (Free Text) Assessment: 72yo M s/p Tracheostomy and PEG placement. POD 1 Plan: - Medical management as per ICU - May continue tube feeds via PEG - Suture removal on 04/06 - No further plans from surgery standpoint. Further recs as per Dr. Vance Martinez PGY2 Surgery
[2018-03-28 08:56] LABS: BANDS 3 % (0-2); LYMPHOCYTE 2 % (20-40); MONOCYTE 2 % (0-10); MYELOCYTE 1 % (0-0); NEUTROPHIL 92 % (50-75); NUCLEATED RED BLOOD CELL 3 % (0-0); TOTAL CELLS COUNTED 100
[2018-03-28 08:57] LABS: ANISOCYTOSIS SLIGHT; HYPOCHROMIC SLIGHT; PLATELET ESTIMATE NORMAL (NORMAL); POIKILOCYTOSIS SLIGHT
[2018-03-28 08:58] LABS: TARGET CELLS SLIGHT
[2018-03-28 09:02] LABS: BURR CELLS SLIGHT; GIANT PLATELETS PRESENT; LARGE PLATELETS PRESENT
[2018-03-28 09:03] LABS: OVALOCYTES SLIGHT
[2018-03-28] MEDS: Enoxaparin 30 mg Syringe SC SCH (09:36)
[2018-03-28] MEDS: Potassium & Sodium Phosphate PO SCH ×3 (09:37→17:49)
[2018-03-28] MEDS: MethylPREDNISolone 40 mg Vial IVP SCH ×2 (09:37→17:49)
--- NOTE | 2018-03-28 11:25 | CP.PCM.PN ---
Subjective - Date & Time of Evaluation Date of Evaluation: 03/28/18 Time of Evaluation: 11:24 - Subjective Subjective: Patient is status post tracheostomy and gastrostomy tube insertion Patient on vent vital signs are stable When stable will transfer the patient to LTAC Objective - Vital Signs/Intake and Output Vital Signs (last 24 hours): Temp Pulse Resp BP Pulse Ox 98.5 F 102 H 16 107/53 L 100 03/28/18 07:59 03/28/18 09:00 03/28/18 09:00 03/28/18 09:00 03/28/18 09:00 Intake and Output: 03/27/18 03/28/18 23:59 11:59 Intake Total 2310.6 1446.3 Output Total 1300 1200 Balance 1010.6 246.3 - Medications Medications: Current Medications Albuterol/Ipratropium (Duoneb 3 Mg/0.5 Mg (3 Ml) Ud) 3 ml INH RQ6 [facility] Ascorbic Acid (Vitamin C 500 Mg Tab) 500 mg PO Q12 [facility] Enoxaparin Sodium (Lovenox) 30 mg SC DAILY [facility] Last Admin: 03/28/18 09:36 Dose: 30 mg Fludrocortisone Acetate (Florinef) 0.1 mg PO DAILY [facility] Last Admin: 03/28/18 09:40 Dose: 0.1 mg Hydromorphone HCl (Dilaudid) 0.5 mg IVP Q4H PRN PRN Reason: Pain, moderate (4-7) Last Admin: 03/28/18 06:00 Dose: 0.5 mg Meropenem 500 mg/ Sodium (Chloride) 100 mls @ 100 mls/hr IVPB Q8H [facility]; Protocol Last Admin: 03/28/18 09:44 Dose: 100 mls/hr Norepinephrine Bitartrate 4 mg (/ Sodium Chloride) 254 mls @ 15.24 mls/hr IV .[id number] PRN; Protocol PRN Reason: TITRATE PER MD ORDER Last Titration: 03/28/18 06:30 Dose: 2 mcg/min, 7.62 mls/hr Potassium Chloride (Potassium Chloride 20 Meq/100 Ml) 20 meq in 100 mls @ 50 mls/hr IVPB Q2H [facility] Stop: 03/28/18 15:59 Last Admin: 03/28/18 09:38 Dose: 50 mls/hr Methylprednisolone (Solu-Medrol) 40 mg IVP Q8H [facility] Midodrine (Proamatine) 2.5 mg PO TID [facility] Multivitamins/Vitamin C (Multi-Delyn Liquid) 5 ml PO DAILY [facility] Pantoprazole Sodium (Protonix Susp) 40 mg PO 0600 [facility] Last Admin: 03/28/18 06:35 Dose: 40 mg Potassium Phos/Sodium Phos (Neutra-Phos) 1 pkt PO TID [facility] Last Admin: 03/28/18 09:37 Dose: 1 pkt Zinc Sulfate (Zinc Sulfate 220 Mg Cap) 220 mg PO DAILY [facility] - Labs Labs: 03/28/18 06:21 03/28/18 06:21 PT 16.0 SECONDS (9.7-12.2) H 03/22/18 16:02 INR 1.5 03/22/18 16:02 APTT 31 SECONDS (21-34) 03/22/18 16:02
[2018-03-28] MEDS ORDERED: MethylPREDNISolone 40 mg Vial IVP SCH (11:30)
[2018-03-28] MEDS: Multiple Vitamins Oral Solution PO SCH (12:22)
[2018-03-28] MEDS: Albuterol-Ipratrop 3 mg / 0.5 (3 ml) UD INH SCH ×2 (13:03→19:14)
--- NOTE | 2018-03-28 14:01 | RAD ---
Date of service: 03/28/2018 HISTORY: aspiration precautions COMPARISON: Comparison chest 03/27/[address] chest 02/20/2018 the FINDINGS: In situ tracheostomy tube remains in good position. No change the right-sided PICC line with tip in the SVC/RA junction LUNGS: Chronic appearing interstitial fibrosis-scarring seen throughout both lung thorn[place] most significantly affecting the left mid to lower lung field and right lung base; possibility of superimposed pneumonia not excluded. Tiny bilateral effusions cannot be excluded. PLEURA: As above. No pneumothorax apparent. CARDIOVASCULAR: No discernible patent aortic atherosclerotic calcification present. Heart size is difficult to assess due to silhouetting the left and to a lesser degree right cardiac borders. OSSEOUS STRUCTURES: No change bilateral RI F hardware both humeral heads and proximal humeri VISUALIZED UPPER ABDOMEN: Normal. OTHER FINDINGS: None. IMPRESSION: Chronic appearing interstitial fibrosis-scarring seen throughout both lung thorn[place] most significantly affecting the left mid to lower lung field and right lung base; possibility of superimposed pneumonia not excluded. Tiny bilateral effusions cannot be excluded.
--- NOTE | 2018-03-28 15:34 | CP.PCM.PN ---
Subjective - Date & Time of Evaluation Date of Evaluation: 03/28/18 Time of Evaluation: 15:32 - Subjective Subjective: PT ON VENT. ROS; UNOBTAINABLE Objective - Vital Signs/Intake and Output Vital Signs (last 24 hours): Temp Pulse Resp BP Pulse Ox 99.1 F 101 H 14 100/60 100 03/28/18 11:59 03/28/18 14:00 03/28/18 14:00 03/28/18 14:00 03/28/18 14:00 Intake and Output: 03/28/18 03/28/18 06:59 18:59 Intake Total 2076.9 535.0 Output Total 1200 Balance 876.9 535.0 - Medications Medications: Current Medications Albuterol/Ipratropium (Duoneb 3 Mg/0.5 Mg (3 Ml) Ud) 3 ml INH RQ6 [facility] Last Admin: 03/28/18 13:03 Dose: 3 ml Ascorbic Acid (Vitamin C 500 Mg Tab) 500 mg PO Q12 [facility] Last Admin: 03/28/18 12:22 Dose: 500 mg Enoxaparin Sodium (Lovenox) 30 mg SC DAILY [facility] Last Admin: 03/28/18 09:36 Dose: 30 mg Fludrocortisone Acetate (Florinef) 0.1 mg PO DAILY [facility] Last Admin: 03/28/18 09:40 Dose: 0.1 mg Hydromorphone HCl (Dilaudid) 0.5 mg IVP Q4H PRN PRN Reason: Pain, moderate (4-7) Last Admin: 03/28/18 06:00 Dose: 0.5 mg Meropenem 500 mg/ Sodium (Chloride) 100 mls @ 100 mls/hr IVPB Q8H [facility]; Protocol Last Admin: 03/28/18 09:44 Dose: 100 mls/hr Norepinephrine Bitartrate 4 mg (/ Sodium Chloride) 254 mls @ 15.24 mls/hr IV .[id number] PRN; Protocol PRN Reason: TITRATE PER MD ORDER Last Titration: 03/28/18 06:30 Dose: 2 mcg/min, 7.62 mls/hr Potassium Chloride (Potassium Chloride 20 Meq/100 Ml) 20 meq in 100 mls @ 50 mls/hr IVPB Q2H [facility] Stop: 03/28/18 15:59 Last Admin: 03/28/18 12:19 Dose: 50 mls/hr Methylprednisolone (Solu-Medrol) 40 mg IVP Q8H [facility] Midodrine (Proamatine) 2.5 mg PO TID [facility] Multivitamins/Vitamin C (Multi-Delyn Liquid) 5 ml PO DAILY [facility] Last Admin: 03/28/18 12:22 Dose: 5 ml Pantoprazole Sodium (Protonix Susp) 40 mg PO 0600 [facility] Last Admin: 03/28/18 06:35 Dose: 40 mg Potassium Phos/Sodium Phos (Neutra-Phos) 1 pkt PO TID [facility] Last Admin: 03/28/18 09:37 Dose: 1 pkt Zinc Sulfate (Zinc Sulfate 220 Mg Cap) 220 mg PO DAILY [facility] Last Admin: 03/28/18 12:23 Dose: 220 mg - Labs Labs: 03/28/18 06:21 03/28/18 06:21 PT 16.0 SECONDS (9.7-12.2) H 03/22/18 16:02 INR 1.5 03/22/18 16:02 APTT 31 SECONDS (21-34) 03/22/18 16:02 - Constitutional Appears: Cachectic, Chronically Ill - Head Exam Head Exam: ATRAUMATIC, NORMOCEPHALIC - Eye Exam Eye Exam: Normal appearance - ENT Exam ENT Exam: Mucous Membranes Moist - Neck Exam Additional comments: +TRACH - Respiratory Exam Respiratory Exam: Rhonchi - Cardiovascular Exam Cardiovascular Exam: Tachycardia, RRR, +S1, +S2 - GI/Abdominal Exam GI & Abdominal Exam: Soft Additional comments: PEG - Rectal Exam Rectal Exam: Deferred - Extremities Exam Additional comments: +UE EDEMA BILAT. LEFT >RIGHT - Neurological Exam Additional comments: LETHARGIC. - Skin Skin Exam: absent: Rash Assessment and Plan (1) Septic shock Status: Acute (2) Altered mental status Status: Acute (3) Pneumonia Status: Acute (4) Respiratory failure requiring intubation Status: Acute (5) COPD exacerbation Status: Acute (6) Cachexia Status: Acute (7) Cholelithiases Status: Acute (8) Alzheimer disease Status: Chronic - Assessment and Plan (Free Text) Assessment: RESP STATUS NO SIG CHANGE., CONT AC SUPPORT. CONT PULM TOILET., MONITOR O2 SAT. CXR REVIEWED. ON PEG FEEDINGS. SUPP K. CONT AB PER ID. UE DOPPLER NEG NOTED. ON IV LEVO AT 1UG NOW. PROG POOR. PENDING TRANSFER TO [facility]. DISCUSSED WITH STAFF AT LENGTH AND SHOE DRESSER. TIME SPENT 1HR.
--- NOTE | 2018-03-28 15:34 | CP.CCUPN ---
<Merry Farias - Last Filed: 03/28/18 15:30> CCU Subjective - Physician Review Subjective (Free Text): Critical Care Progress Note for Dr. Amaya's service Patient seen and examined at bedside. Limited ROS as patient on trach and not awake. s/p trach/peg. pending ltach acceptance. Critical Care Time Spent (in minutes): 35 CCU Objective - Vital Signs / Intake & Output Vital Signs (Last 4 hours): Vital Signs Temp Pulse Resp BP Pulse Ox 03/28/18 14:00 101 H 14 100/60 100 03/28/18 13:30 102 H 17 91/59 L 100 03/28/18 13:00 104 H 18 97/49 L 100 03/28/18 12:01 107 H 16 123/42 L 100 03/28/18 12:00 109 H 15 97 03/28/18 11:59 99.1 F 23 100 Intake and Output (Last 8hrs): Intake & Output 03/28/18 03/28/18 03/28/18 06:59 14:59 22:59 Intake Total 1302.6 535.0 Output Total 1200 Balance 102.6 535.0 Weight 127 lb 14.4 oz Intake: IV 36 Intake, IV Amount 886.6 215.0 R UA PICC (purple port) 86.6 15.0 R UA PICC (red port) 800 200 Tube Feeding 320 320 Other 60 Output: Urine 1200 Urine, Voided 1200 Oral Regurgitation 0 Other: # Voids Urine, Voided 1 # Bowel Movements 0 - Physical Exam Head: Positive for: Atraumatic, Normocephalic Pupils: Positive for: PERRL Extroacular Muscles: Positive for: EOMI Conjunctiva: Positive for: Normal Ears: Positive for: Normal Mouth: Positive for: Dry Neck: Positive for: Other (tracheostomy). Negative for: JVD Respiratory/Chest: Positive for: Good Air Exchange. Negative for: Respiratory Distress, Accessory Muscle Use Cardiovascular: Positive for: Regular Rate and Rhythm, Normal S1, S2. Negative for: Murmurs, Irregular Rhythm, Bradycardic Abdomen: Positive for: Normal Bowel Sounds. Negative for: Tenderness, Distention, Peritoneal Signs Genitourinary Male: Positive for: Other (Simmons in place) Upper Extremity: Positive for: Normal Inspection. Negative for: Cyanosis, Edema Lower Extremity: Positive for: Normal Inspection. Negative for: Edema Neurological: Negative for: GCS=15 Skin: Positive for: Dry, Normal Color, Other (picc line in right arm, right subclav TLC, Peg tube). Negative for: Erythematous Psychiatric: Negative for: Oriented x 3, Normal Insight - Medications Active Medications: Active Medications Generic Name Dose Route Start Last Admin Trade Name Freq PRN Reason Stop Dose Admin Albuterol/Ipratropium 3 ml 03/28/18 14:00 03/28/18 13:03 Duoneb 3 Mg/0.5 Mg (3 Ml) Ud INH 3 ml RQ6 VELMA Administration Ascorbic Acid 500 mg 03/28/18 11:00 03/28/18 12:22 Vitamin C 500 Mg Tab PO 500 mg Q12 VELMA Administration Enoxaparin Sodium 30 mg 03/27/18 22:00 03/28/18 09:36 Lovenox SC 30 mg DAILY VELMA Administration Fludrocortisone Acetate 0.1 mg 03/10/18 11:15 03/28/18 09:40 Florinef PO 0.1 mg DAILY VELMA Administration Hydromorphone HCl 0.5 mg 03/28/18 00:58 03/28/18 06:00 Dilaudid IVP 0.5 mg Q4H PRN Administration Pain, moderate (4-7) Meropenem 500 mg/ Sodium 100 mls @ 100 mls/hr 03/04/18 01:15 03/28/18 09:44 Chloride IVPB 100 mls/hr Q8H VELMA Administration Protocol Norepinephrine Bitartrate 4 mg 254 mls @ 15.24 mls/hr 03/25/18 08:54 03/28/18 06:30 / Sodium Chloride IV 2 mcg/min .[id number] PRN 7.62 mls/hr TITRATE PER MD ORDER Titration Protocol 4 MCG/MIN Potassium Chloride 20 meq in 100 mls @ 50 mls/hr 03/28/18 08:00 03/28/18 12:19 Potassium Chloride 20 Meq/100 Ml IVPB 03/28/18 15:59 50 mls/hr Q2H VELMA Administration Methylprednisolone 40 mg 03/28/18 18:00 Solu-Medrol IVP Q8H VELMA Midodrine 2.5 mg 03/28/18 14:00 Proamatine PO TID VELMA Multivitamins/Vitamin C 5 ml 03/28/18 11:00 03/28/18 12:22 Multi-Delyn Liquid PO 5 ml DAILY VELMA Administration Pantoprazole Sodium 40 mg 03/25/18 06:00 03/28/18 06:35 Protonix Susp PO 40 mg 0600 VELMA Administration Potassium Phos/Sodium Phos 1 pkt 03/22/18 14:00 03/28/18 09:37 Neutra-Phos PO 1 pkt TID VELMA Administration Zinc Sulfate 220 mg 03/28/18 11:00 03/28/18 12:23 Zinc Sulfate 220 Mg Cap PO 220 mg DAILY VELMA Administration - Patient Studies Lab Studies: Lab Studies 03/28/18 03/28/18 03/28/18 Range/Units 11:23 06:27 06:25 WBC (4.8-10.8) K/uL RBC (4.40-5.90) Mil/uL Hgb (12.0-18.0) g/dL Hct (35.0-51.0) % MCV (80.0-94.0) fL MCH (27.0-31.0) pg MCHC (33.0-37.0) g/dL RDW (11.5-14.5) % Plt Count (130-400) K/uL MPV (7.2-11.7) fL Neut % (Auto) (50.0-75.0) % Lymph % (Auto) (20.0-40.0) % Cloud % (Auto) (0.0-10.0) % Eos % (Auto) (0.0-4.0) % Baso % (Auto) (0.0-2.0) % Neut # (Auto) (1.8-7.0) K/uL Lymph # (Auto) (1.0-4.3) K/uL Cloud # (Auto) (0.0-0.8) K/uL Eos # (Auto) (0.0-0.7) K/uL Baso # (Auto) (0.0-0.2) K/uL Neutrophils % (Manual) (50-75) % Band Neutrophils % (0-2) % Lymphocytes % (Manual) (20-40) % Monocytes % (Manual) (0-10) % Myelocytes % (0-0) % Nucleated RBC % (0-0) % Platelet Estimate (NORMAL) Large Platelets Giant Platelets Hypochromasia (manual) Poikilocytosis (manual Anisocytosis (manual) Target Cells Ovalocytes Jay Cells Sodium (132-148) mmol/L Potassium (3.6-5.2) mmol/L Chloride (98-107) mmol/L Carbon Dioxide (22-30) mmol/L Anion Gap (10-20) BUN (9-20) mg/dL Creatinine (0.8-1.5) mg/dL Est GFR ( Amer) Est GFR (Non-Af Amer) POC Glucose (mg/dL) 111 H 116 H 182 H (65-110) mg/dL Random Glucose (75-110) mg/dL Calcium (8.6-10.4) mg/dl Phosphorus (2.5-4.5) mg/dL Magnesium (1.6-2.3) mg/dL Total Bilirubin (0.2-1.3) mg/dL AST (17-59) U/L ALT (21-72) U/L Alkaline Phosphatase (38-126) U/L Total Protein (6.3-8.3) g/dL Albumin (3.5-5.0) g/dL Globulin (2.2-3.9) gm/dL Albumin/Globulin Ratio (1.0-2.1) 03/28/18 03/28/18 03/28/18 Range/Units 06:21 06:21 05:52 WBC 16.2 H (4.8-10.8) K/uL RBC 2.85 L (4.40-5.90) Mil/uL Hgb 8.6 L (12.0-18.0) g/dL Hct 25.9 L (35.0-51.0) % MCV 90.8 D (80.0-94.0) fL MCH 30.0 (27.0-31.0) pg MCHC 33.1 (33.0-37.0) g/dL RDW 18.6 H (11.5-14.5) % Plt Count 133 (130-400) K/uL MPV 9.2 (7.2-11.7) fL Neut % (Auto) 95.5 H (50.0-75.0) % Lymph % (Auto) 3.2 L (20.0-40.0) % Cloud % (Auto) 0.9 (0.0-10.0) % Eos % (Auto) 0.3 (0.0-4.0) % Baso % (Auto) 0.1 (0.0-2.0) % Neut # (Auto) 15.5 H (1.8-7.0) K/uL Lymph # (Auto) 0.5 L (1.0-4.3) K/uL Cloud # (Auto) 0.2 (0.0-0.8) K/uL Eos # (Auto) 0.1 (0.0-0.7) K/uL Baso # (Auto) 0.0 (0.0-0.2) K/uL Neutrophils % (Manual) 92 H (50-75) % Band Neutrophils % 3 H (0-2) % Lymphocytes % (Manual) 2 L (20-40) % Monocytes % (Manual) 2 (0-10) % Myelocytes % 1 H (0-0) % Nucleated RBC % 3 H (0-0) % Platelet Estimate Normal (NORMAL) Large Platelets Present Giant Platelets Present Hypochromasia (manual) Slight Poikilocytosis (manual Slight Anisocytosis (manual) Slight Target Cells Slight Ovalocytes Slight Jay Cells Slight Sodium 135 (132-148) mmol/L Potassium 2.9 L (3.6-5.2) mmol/L Chloride 100 (98-107) mmol/L Carbon Dioxide 32 H (22-30) mmol/L Anion Gap 5 L (10-20) BUN 17 (9-20) mg/dL Creatinine 0.3 L (0.8-1.5) mg/dL Est GFR ( Amer) > 60 Est GFR (Non-Af Amer) > 60 POC Glucose (mg/dL) 129 H (65-110) mg/dL Random Glucose 113 H D (75-110) mg/dL Calcium 7.0 L (8.6-10.4) mg/dl Phosphorus 2.8 (2.5-4.5) mg/dL Magnesium 1.5 L (1.6-2.3) mg/dL Total Bilirubin 1.4 H (0.2-1.3) mg/dL AST 42 (17-59) U/L ALT 47 (21-72) U/L Alkaline Phosphatase 153 H (38-126) U/L Total Protein 4.6 L (6.3-8.3) g/dL Albumin 2.1 L (3.5-5.0) g/dL Globulin 2.4 (2.2-3.9) gm/dL Albumin/Globulin Ratio 0.9 L (1.0-2.1) 03/27/18 03/27/18 Range/Units 23:47 18:10 WBC (4.8-10.8) K/uL RBC (4.40-5.90) Mil/uL Hgb (12.0-18.0) g/dL Hct (35.0-51.0) % MCV (80.0-94.0) fL MCH (27.0-31.0) pg MCHC (33.0-37.0) g/dL RDW (11.5-14.5) % Plt Count (130-400) K/uL MPV (7.2-11.7) fL Neut % (Auto) (50.0-75.0) % Lymph % (Auto) (20.0-40.0) % Cloud % (Auto) (0.0-10.0) % Eos % (Auto) (0.0-4.0) % Baso % (Auto) (0.0-2.0) % Neut # (Auto) (1.8-7.0) K/uL Lymph # (Auto) (1.0-4.3) K/uL Cloud # (Auto) (0.0-0.8) K/uL Eos # (Auto) (0.0-0.7) K/uL Baso # (Auto) (0.0-0.2) K/uL Neutrophils % (Manual) (50-75) % Band Neutrophils % (0-2) % Lymphocytes % (Manual) (20-40) % Monocytes % (Manual) (0-10) % Myelocytes % (0-0) % Nucleated RBC % (0-0) % Platelet Estimate (NORMAL) Large Platelets Giant Platelets Hypochromasia (manual) Poikilocytosis (manual Anisocytosis (manual) Target Cells Ovalocytes [place] Cells Sodium (132-148) mmol/L Potassium (3.6-5.2) mmol/L Chloride (98-107) mmol/L Carbon Dioxide (22-30) mmol/L Anion Gap (10-20) BUN (9-20) mg/dL Creatinine (0.8-1.5) mg/dL Est GFR ( Amer) Est GFR (Non-Af Amer) POC Glucose (mg/dL) 109 136 H (65-110) mg/dL Random Glucose (75-110) mg/dL Calcium (8.6-10.4) mg/dl Phosphorus (2.5-4.5) mg/dL Magnesium (1.6-2.3) mg/dL Total Bilirubin (0.2-1.3) mg/dL AST (17-59) U/L ALT (21-72) U/L Alkaline Phosphatase (38-126) U/L Total Protein (6.3-8.3) g/dL Albumin (3.5-5.0) g/dL Globulin (2.2-3.9) gm/dL Albumin/Globulin Ratio (1.0-2.1) Laboratory Results - last 24 hr 03/27/18 03/27/18 03/28/18 18:10 23:47 05:52 WBC RBC Hgb Hct MCV MCH MCHC RDW Plt Count MPV Neut % (Auto) Lymph % (Auto) Cloud % (Auto) Eos % (Auto) Baso % (Auto) Neut # (Auto) Lymph # (Auto) Cloud # (Auto) Eos # (Auto) Baso # (Auto) Neutrophils % (Manual) Band Neutrophils % Lymphocytes % (Manual) Monocytes % (Manual) Myelocytes % Nucleated RBC % Platelet Estimate Large Platelets Giant Platelets Hypochromasia (manual) Poikilocytosis (manual Anisocytosis (manual) Target Cells Ovalocytes Jay Cells Sodium Potassium Chloride Carbon Dioxide Anion Gap BUN Creatinine Est GFR ( Amer) Est GFR (Non-Af Amer) POC Glucose (mg/dL) 136 H 109 129 H Random Glucose Calcium Phosphorus Magnesium Total Bilirubin AST ALT Alkaline Phosphatase Total Protein Albumin Globulin Albumin/Globulin Ratio 03/28/18 03/28/18 03/28/18 06:21 06:21 06:25 WBC 16.2 H RBC 2.85 L Hgb 8.6 L Hct 25.9 L MCV 90.8 D MCH 30.0 MCHC 33.1 RDW 18.6 H Plt Count 133 MPV 9.2 Neut % (Auto) 95.5 H Lymph % (Auto) 3.2 L Cloud % (Auto) 0.9 Eos % (Auto) 0.3 Baso % (Auto) 0.1 Neut # (Auto) 15.5 H Lymph # (Auto) 0.5 L Cloud # (Auto) 0.2 Eos # (Auto) 0.1 Baso # (Auto) 0.0 Neutrophils % (Manual) 92 H Band Neutrophils % 3 H Lymphocytes % (Manual) 2 L Monocytes % (Manual) 2 Myelocytes % 1 H Nucleated RBC % 3 H Platelet Estimate Normal Large Platelets Present Giant Platelets Present Hypochromasia (manual) Slight Poikilocytosis (manual Slight Anisocytosis (manual) Slight Target Cells Slight Ovalocytes Slight Jay Cells Slight Sodium 135 Potassium 2.9 L Chloride 100 Carbon Dioxide 32 H Anion Gap 5 L BUN 17 Creatinine 0.3 L Est GFR ( Amer) > 60 Est GFR (Non-Af Amer) > 60 POC Glucose (mg/dL) 182 H Random Glucose 113 H D Calcium 7.0 L Phosphorus 2.8 Magnesium 1.5 L Total Bilirubin 1.4 H AST 42 ALT 47 Alkaline Phosphatase 153 H Total Protein 4.6 L Albumin 2.1 L Globulin 2.4 Albumin/Globulin Ratio 0.9 L 03/28/18 03/28/18 06:27 11:23 WBC RBC Hgb Hct MCV MCH MCHC RDW Plt Count MPV Neut % (Auto) Lymph % (Auto) Cloud % (Auto) Eos % (Auto) Baso % (Auto) Neut # (Auto) Lymph # (Auto) Cloud # (Auto) Eos # (Auto) Baso # (Auto) Neutrophils % (Manual) Band Neutrophils % Lymphocytes % (Manual) Monocytes % (Manual) Myelocytes % Nucleated RBC % Platelet Estimate Large Platelets Giant Platelets Hypochromasia (manual) Poikilocytosis (manual Anisocytosis (manual) Target Cells Ovalocytes Jay Cells Sodium Potassium Chloride Carbon Dioxide Anion Gap BUN Creatinine Est GFR ( Amer) Est GFR (Non-Af Amer) POC Glucose (mg/dL) 116 H 111 H Random Glucose Calcium Phosphorus Magnesium Total Bilirubin AST ALT Alkaline Phosphatase Total Protein Albumin Globulin Albumin/Globulin Ratio Radiology Impressions: Radiology Impressions Chest X-Ray 03/27/18 07:00 IMPRESSION: Little interval change in right basilar atelectasis/scarring and fibrotic changes in the left lung with presumable bronchiectasis in the left lower lobe. Worsening small left pleural effusion. Stable position of support line and tubes. Chest X-Ray 03/27/18 15:22 IMPRESSION: Right PICC line terminates at the cavoatrial junction. Right subclavian line terminates in the SVC. Stable position of the tracheostomy tube. No significant interval change. Chest X-Ray 03/28/18 10:24 IMPRESSION: Chronic appearing interstitial fibrosis-scarring seen throughout both lung [place]orn[place] most significantly affecting the left mid to lower lung field and right lung base; possibility of superimposed pneumonia not excluded. Tiny bilateral effusions cannot be excluded. Fingerstick Blood Sugar Results: 111 Review of Systems - Review of Systems Review of Systems: Trached; Limited ROS Critical Care Progress Note - Extremities/Vascular Does the Patient have a Simmons Catheter?: Yes Does the Patient need a Simmons Catheter?: Yes Catheter Insertion Criteria: Need for accurate measurement of output in critically ill patient - Prophylaxis GI Prophylaxis GI: PPI - Prophylaxis DVT Prophylaxis DVT: Lovenox Assessment/Plan - Assessment and Plan (Free Text) Assessment: Patient is a 72 yo male w/PMH of Alzheimer, COPD and arthritis admitted for hypoxic resp failure. Patient was intubated prior to transfer to ICU on 03-19 with subclavian TLC placed on 03/19 for hypotension. Neuro no sedation; Awake with verbal or tactile stimulation Dilaudid PRN; Ativan PRN Pulm trach on ventilator Duoneb Solumedrol CV Fludrocortisone Levophed titrate as needed Midodrine GI no active issues Protonix Renal Neutrophos Repleted magnesium and electrolytes as ordered Repeat CMP in AM ID + cx for yeast and e coli on 03/02 + cx for yeast on 03/1203/19/18 repeat cx negative Meropenem (started on 03/04) DVT ppx: Lovenox GI ppx: Protonix Disposition: s/p trach/peg; Patient pending ltach acceptance PGY-1 [facility] d/w Dr. Amaya <Hailey Amaya - Last Filed: 03/28/18 18:23> CCU Objective - Vital Signs / Intake & Output Vital Signs (Last 4 hours): Vital Signs Temp Pulse Resp BP Pulse Ox 03/28/18 16:16 94 H 22 85/46 L 100 03/28/18 16:10 94 H 33 H 79/39 L 100 03/28/18 16:00 98 H 20 100 03/28/18 15:46 102 H 19 82/48 L 100 03/28/18 15:00 97.1 F L 100 H 13 100 Intake and Output (Last 8hrs): Intake & Output 03/28/18 03/28/18 03/28/18 06:59 14:59 22:59 Intake Total 1302.6 535.0 110 Output Total 1200 Balance 102.6 535.0 110 Weight 127 lb 14.4 oz Intake: IV 36 Intake, IV Amount 886.6 215.0 R UA PICC (purple port) 86.6 15.0 R UA PICC (red port) 800 200 Tube Feeding 320 320 80 Other 60 30 Output: Urine 1200 Urine, Voided 1200 Oral Regurgitation 0 Other: # Voids Urine, Voided 1 # Bowel Movements 0 - Medications Active Medications: Active Medications Generic Name Dose Route Start Last Admin Trade Name Freq PRN Reason Stop Dose Admin Albuterol/Ipratropium 3 ml 03/28/18 14:00 03/28/18 13:03 Duoneb 3 Mg/0.5 Mg (3 Ml) Ud INH 3 ml RQ6 VELMA Administration Ascorbic Acid 500 mg 03/28/18 11:00 03/28/18 12:22 Vitamin C 500 Mg Tab PO 500 mg Q12 VELMA Administration Enoxaparin Sodium 30 mg 03/27/18 22:00 03/28/18 09:36 Lovenox SC 30 mg DAILY VELMA Administration Fludrocortisone Acetate 0.1 mg 18 11:15 03/28/18 09:40 Florinef PO 0.1 mg DAILY VELMA Administration Hydrocortisone Sodium Succinate 300 mg 03/28/18 18:21 Solu-Cortef IV 03/28/18 18:22 STAT STA Hydrocortisone Sodium Succinate 100 mg 03/28/18 18:30 Solu-Cortef IV Q8H VELMA Hydromorphone HCl 0.5 mg 03/28/18 00:58 03/28/18 06:00 Dilaudid IVP 0.5 mg Q4H PRN Administration Pain, moderate (4-7) Meropenem 500 mg/ Sodium 100 mls @ 100 mls/hr 03/04/18 01:15 03/28/18 09:44 Chloride IVPB 100 mls/hr Q8H VELMA Administration Protocol Norepinephrine Bitartrate 4 mg 254 mls @ 15.24 mls/hr 03/25/18 08:54 03/28/18 06:30 / Sodium Chloride IV 2 mcg/min .[id number] PRN 7.62 mls/hr TITRATE PER MD ORDER Titration Protocol 4 MCG/MIN Methylprednisolone 40 mg 03/28/18 18:00 03/28/18 17:49 Solu-Medrol IVP 40 mg Q8H VELMA Administration Midodrine 2.5 mg 03/28/18 14:00 03/28/18 16:09 Proamatine PO 2.5 mg TID VELMA Administration Multivitamins/Vitamin C 5 ml 03/28/18 11:00 03/28/18 12:22 Multi-Delyn Liquid PO 5 ml DAILY VELMA Administration Pantoprazole Sodium 40 mg 03/25/18 06:00 03/28/18 06:35 Protonix Susp PO 40 mg 0600 VELMA Administration Potassium Phos/Sodium Phos 1 pkt 03/22/18 14:00 03/28/18 17:49 Neutra-Phos PO 1 pkt TID VELMA Administration Zinc Sulfate 220 mg 03/28/18 11:00 03/28/18 12:23 Zinc Sulfate 220 Mg Cap PO 220 mg DAILY VELMA Administration - Patient Studies Lab Studies: Microbiology Studies 03/28/18 14:22 Gram Stain - Final Trachasp Lab Studies 03/28/18 03/28/18 03/28/18 Range/Units 11:23 06:27 06:25 WBC (4.8-10.8) K/uL RBC (4.40-5.90) Mil/uL Hgb (12.0-18.0) g/dL Hct (35.0-51.0) % MCV (80.0-94.0) fL MCH (27.0-31.0) pg MCHC (33.0-37.0) g/dL RDW (11.5-14.5) % Plt Count (130-400) K/uL MPV (7.2-11.7) fL Neut % (Auto) (50.0-75.0) % Lymph % (Auto) (20.0-40.0) % Cloud % (Auto) (0.0-10.0) % Eos % (Auto) (0.0-4.0) % Baso % (Auto) (0.0-2.0) % Neut # (Auto) (1.8-7.0) K/uL Lymph # (Auto) (1.0-4.3) K/uL Cloud # (Auto) (0.0-0.8) K/uL Eos # (Auto) (0.0-0.7) K/uL Baso # (Auto) (0.0-0.2) K/uL Neutrophils % (Manual) (50-75) % Band Neutrophils % (0-2) % Lymphocytes % (Manual) (20-40) % Monocytes % (Manual) (0-10) % Myelocytes % (0-0) % Nucleated RBC % (0-0) % Platelet Estimate (NORMAL) Large Platelets Giant Platelets Hypochromasia (manual) Poikilocytosis (manual Anisocytosis (manual) Target Cells Ovalocytes Jay Cells Sodium (132-148) mmol/L Potassium (3.6-5.2) mmol/L Chloride (98-107) mmol/L Carbon Dioxide (22-30) mmol/L Anion Gap (10-20) BUN (9-20) mg/dL Creatinine (0.8-1.5) mg/dL Est GFR ( Amer) Est GFR (Non-Af Amer) POC Glucose (mg/dL) 111 H 116 H 182 H (65-110) mg/dL Random Glucose (75-110) mg/dL Calcium (8.6-10.4) mg/dl Phosphorus (2.5-4.5) mg/dL Magnesium (1.6-2.3) mg/dL Total Bilirubin (0.2-1.3) mg/dL AST (17-59) U/L ALT (21-72) U/L Alkaline Phosphatase (38-126) U/L Total Protein (6.3-8.3) g/dL Albumin (3.5-5.0) g/dL Globulin (2.2-3.9) gm/dL Albumin/Globulin Ratio (1.0-2.1) 03/28/18 03/28/1803/28/19 Range/Units 06:21 06:21 05:52 WBC 16.2 H (4.8-10.8) K/uL RBC 2.85 L (4.40-5.90) Mil/uL Hgb 8.6 L (12.0-18.0) g/dL Hct 25.9 L (35.0-51.0) % MCV 90.8 D (80.0-94.0) fL MCH 30.0 (27.0-31.0) pg MCHC 33.1 (33.0-37.0) g/dL RDW 18.6 H (11.5-14.5) % Plt Count 133 (130-400) K/uL MPV 9.2 (7.2-11.7) fL Neut % (Auto) 95.5 H (50.0-75.0) % Lymph % (Auto) 3.2 L (20.0-40.0) % Cloud % (Auto) 0.9 (0.0-10.0) % Eos % (Auto) 0.3 (0.0-4.0) % Baso % (Auto) 0.1 (0.0-2.0) % Neut # (Auto) 15.5 H (1.8-7.0) K/uL Lymph # (Auto) 0.5 L (1.0-4.3) K/uL Cloud # (Auto) 0.2 (0.0-0.8) K/uL Eos # (Auto) 0.1 (0.0-0.7) K/uL Baso # (Auto) 0.0 (0.0-0.2) K/uL Neutrophils % (Manual) 92 H (50-75) % Band Neutrophils % 3 H (0-2) % Lymphocytes % (Manual) 2 L (20-40) % Monocytes % (Manual) 2 (0-10) % Myelocytes % 1 H (0-0) % Nucleated RBC % 3 H (0-0) % Platelet Estimate Normal (NORMAL) Large Platelets Present Giant Platelets Present Hypochromasia (manual) Slight Poikilocytosis (manual Slight Anisocytosis (manual) Slight Target Cells Slight Ovalocytes Slight Jay Cells Slight Sodium 135 (132-148) mmol/L Potassium 2.9 L (3.6-5.2) mmol/L Chloride 100 (98-107) mmol/L Carbon Dioxide 32 H (22-30) mmol/L Anion Gap 5 L (10-20) BUN 17 (9-20) mg/dL Creatinine 0.3 L (0.8-1.5) mg/dL Est GFR ( Amer) > 60 Est GFR (Non-Af Amer) > 60 POC Glucose (mg/dL) 129 H (65-110) mg/dL Random Glucose 113 H D (75-110) mg/dL Calcium 7.0 L (8.6-10.4) mg/dl Phosphorus 2.8 (2.5-4.5) mg/dL Magnesium 1.5 L (1.6-2.3) mg/dL Total Bilirubin 1.4 H (0.2-1.3) mg/dL AST 42 (17-59) U/L ALT 47 (21-72) U/L Alkaline Phosphatase 153 H (38-126) U/L Total Protein 4.6 L (6.3-8.3) g/dL Albumin 2.1 L (3.5-5.0) g/dL Globulin 2.4 (2.2-3.9) gm/dL Albumin/Globulin Ratio 0.9 L (1.0-2.1) 03/27/18 Range/Units 23:47 WBC (4.8-10.8) K/uL RBC (4.40-5.90) Mil/uL Hgb (12.0-18.0) g/dL Hct (35.0-51.0) % MCV (80.0-94.0) fL MCH (27.0-31.0) pg MCHC (33.0-37.0) g/dL RDW (11.5-14.5) % Plt Count (130-400) K/uL MPV (7.2-11.7) fL Neut % (Auto) (50.0-75.0) % Lymph % (Auto) (20.0-40.0) % Cloud % (Auto) (0.0-10.0) % Eos % (Auto) (0.0-4.0) % Baso % (Auto) (0.0-2.0) % Neut # (Auto) (1.8-7.0) K/uL Lymph # (Auto) (1.0-4.3) K/uL Cloud # (Auto) (0.0-0.8) K/uL Eos # (Auto) (0.0-0.7) K/uL Baso # (Auto) (0.0-0.2) K/uL Neutrophils % (Manual) (50-75) % Band Neutrophils % (0-2) % Lymphocytes % (Manual) (20-40) % Monocytes % (Manual) (0-10) % Myelocytes % (0-0) % Nucleated RBC % (0-0) % Platelet Estimate (NORMAL) Large Platelets Giant Platelets Hypochromasia (manual) Poikilocytosis (manual Anisocytosis (manual) Target Cells Ovalocytes [place] Cells Sodium (132-148) mmol/L Potassium (3.6-5.2) mmol/L Chloride (98-107) mmol/L Carbon Dioxide (22-30) mmol/L Anion Gap (10-20) BUN (9-20) mg/dL Creatinine (0.8-1.5) mg/dL Est GFR ( Amer) Est GFR (Non-Af Amer) POC Glucose (mg/dL) 109 (65-110) mg/dL Random Glucose (75-110) mg/dL Calcium (8.6-10.4) mg/dl Phosphorus (2.5-4.5) mg/dL Magnesium (1.6-2.3) mg/dL Total Bilirubin (0.2-1.3) mg/dL AST (17-59) U/L ALT (21-72) U/L Alkaline Phosphatase (38-126) U/L Total Protein (6.3-8.3) g/dL Albumin (3.5-5.0) g/dL Globulin (2.2-3.9) gm/dL Albumin/Globulin Ratio (1.0-2.1) Laboratory Results - last 24 hr 03/27/18 03/28/18 03/28/18 23:47 05:52 06:21 WBC 16.2 H RBC 2.85 L Hgb 8.6 L Hct 25.9 L MCV 90.8 D MCH 30.0 MCHC 33.1 RDW 18.6 H Plt Count 133 MPV 9.2 Neut % (Auto) 95.5 H Lymph % (Auto) 3.2 L Cloud % (Auto) 0.9 Eos % (Auto) 0.3 Baso % (Auto) 0.1 Neut # (Auto) 15.5 H Lymph # (Auto) 0.5 L [place] # (Auto) 0.2 Eos # (Auto) 0.1 Baso # (Auto) 0.0 Neutrophils % (Manual) 92 H Band Neutrophils % 3 H Lymphocytes % (Manual) 2 L Monocytes % (Manual) 2 Myelocytes % 1 H Nucleated RBC % 3 H Platelet Estimate Normal Large Platelets Present Giant Platelets Present Hypochromasia (manual) Slight Poikilocytosis (manual Slight Anisocytosis (manual) Slight Target Cells Slight Ovalocytes Slight [place] Cells Slight Sodium Potassium Chloride Carbon Dioxide Anion Gap BUN Creatinine Est GFR ( Amer) Est GFR (Non-Af Amer) POC Glucose (mg/dL) 109 129 H Random Glucose Calcium Phosphorus Magnesium Total Bilirubin AST ALT Alkaline Phosphatase Total Protein Albumin Globulin Albumin/Globulin Ratio 03/28/18 03/28/18 03/28/18 06:21 06:25 06:27 WBC RBC Hgb Hct MCV MCH MCHC RDW Plt Count MPV Neut % (Auto) Lymph % (Auto) Cloud % (Auto) Eos % (Auto) Baso % (Auto) Neut # (Auto) Lymph # (Auto) Cloud # (Auto) Eos # (Auto) Baso # (Auto) Neutrophils % (Manual) Band Neutrophils % Lymphocytes % (Manual) Monocytes % (Manual) Myelocytes % Nucleated RBC % Platelet Estimate Large Platelets Giant Platelets Hypochromasia (manual) Poikilocytosis (manual Anisocytosis (manual) Target Cells Ovalocytes Jay Cells Sodium 135 Potassium 2.9 L Chloride 100 Carbon Dioxide 32 H Anion Gap 5 L BUN 17 Creatinine 0.3 L Est GFR ( Amer) > 60 Est GFR (Non-Af Amer) > 60 POC Glucose (mg/dL) 182 H 116 H Random Glucose 113 H D Calcium 7.0 L Phosphorus 2.8 Magnesium 1.5 L Total Bilirubin 1.4 H AST 42 ALT 47 Alkaline Phosphatase 153 H Total Protein 4.6 L Albumin 2.1 L Globulin 2.4 Albumin/Globulin Ratio 0.9 L 03/28/18 11:23 WBC RBC Hgb Hct MCV MCH MCHC RDW Plt Count MPV Neut % (Auto) Lymph % (Auto) Cloud % (Auto) Eos % (Auto) Baso % (Auto) Neut # (Auto) Lymph # (Auto) Cloud # (Auto) Eos # (Auto) Baso # (Auto) Neutrophils % (Manual) Band Neutrophils % Lymphocytes % (Manual) Monocytes % (Manual) Myelocytes % Nucleated RBC % Platelet Estimate Large Platelets Giant Platelets Hypochromasia (manual) Poikilocytosis (manual Anisocytosis (manual) Target Cells Ovalocytes [place] Cells Sodium Potassium Chloride Carbon Dioxide Anion Gap BUN Creatinine Est GFR ( Amer) Est GFR (Non-Af Amer) POC Glucose (mg/dL) 111 H Random Glucose Calcium Phosphorus Magnesium Total Bilirubin AST ALT Alkaline Phosphatase Total Protein Albumin Globulin Albumin/Globulin Ratio Radiology Impressions: Radiology Impressions Chest X-Ray 03/28/18 10:24 IMPRESSION: Chronic appearing interstitial fibrosis-scarring seen throughout both lung [place] most significantly affecting the left mid to lower lung field and right lung base; possibility of superimposed pneumonia not excluded. Tiny bilateral effusions cannot be excluded. Assessment/Plan - Assessment and Plan (Free Text) Plan: Patient seen and examined at bedside. PAtient with h/o respiratory failure s/p trach and peg -suspect lobad pneumonia: (+)thick secretions -continue bronchodilaotrs -titrate off pressors -patient still in shock on low dose norepi -add midodrine + solucortef -albumin volume resusitation -continue to resusitate - Date & Time Date: 03/28/18 Time: 18:23
[2018-03-28] MEDS ORDERED: Albumin Human 25% (12.5 gm/50 ml) IV ONE (16:15)
--- NOTE | 2018-03-28 20:22 | CP.PCM.PN ---
Subjective - Date & Time of Evaluation Date of Evaluation: 03/28/18 Time of Evaluation: 20:22 - Subjective Subjective: PT ON VENTILATOR VIA TRACH VS NOTED S/P Open Tracheostomy, #8. S/P Percutaneous Endoscopic Gastrostomy Placement, 20F. ROS : NA PT WITH TRACH Objective - Vital Signs/Intake and Output Vital Signs (last 24 hours): Temp Pulse Resp BP Pulse Ox 97.3 F L 89 20 81/48 L 100 03/28/18 19:00 03/28/18 19:00 03/28/18 19:00 03/28/18 18:55 03/28/18 19:00 Intake and Output: 03/28/18 03/29/18 18:59 06:59 Intake Total 2189.7 Output Total 1200 Balance 989.7 - Medications Medications: Current Medications Albuterol/Ipratropium (Duoneb 3 Mg/0.5 Mg (3 Ml) Ud) 3 ml INH RQ6 [facility] Last Admin: 03/28/18 19:14 Dose: 3 ml Ascorbic Acid (Vitamin C 500 Mg Tab) 500 mg PO Q12 [facility] Last Admin: 03/28/18 12:22 Dose: 500 mg Enoxaparin Sodium (Lovenox) 30 mg SC DAILY [facility] Last Admin: 03/28/18 09:36 Dose: 30 mg Fludrocortisone Acetate (Florinef) 0.1 mg PO DAILY [facility] Last Admin: 03/28/18 09:40 Dose: 0.1 mg Hydrocortisone Sodium Succinate (Solu-Cortef) 100 mg IV Q8H [facility] Last Admin: 03/28/18 19:00 Dose: 100 mg Meropenem 500 mg/ Sodium (Chloride) 100 mls @ 100 mls/hr IVPB Q8H [facility]; Protocol Last Admin: 03/28/18 17:30 Dose: 100 mls/hr Norepinephrine Bitartrate 4 mg (/ Sodium Chloride) 254 mls @ 15.24 mls/hr IV .[id number] PRN; Protocol PRN Reason: TITRATE PER MD ORDER Last Titration: 03/28/18 18:15 Dose: 4 mcg/min, 15.24 mls/hr Methylprednisolone (Solu-Medrol) 40 mg IVP Q8H [facility] Last Admin: 03/28/18 17:49 Dose: 40 mg Midodrine (Proamatine) 2.5 mg PO TID [facility] Last Admin: 03/28/18 19:02 Dose: 2.5 mg Multivitamins/Vitamin C (Multi-Delyn Liquid) 5 ml PO DAILY [facility] Last Admin: 03/28/18 12:22 Dose: 5 ml Pantoprazole Sodium (Protonix Susp) 40 mg PO 0600 [facility] Last Admin: 03/28/18 06:35 Dose: 40 mg Potassium Phos/Sodium Phos (Neutra-Phos) 1 pkt PO TID [facility] Last Admin: 03/28/18 17:49 Dose: 1 pkt Zinc Sulfate (Zinc Sulfate 220 Mg Cap) 220 mg PO DAILY [facility] Last Admin: 03/28/18 12:23 Dose: 220 mg - Labs Labs: 03/28/18 06:21 03/28/18 06:21 PT 16.0 SECONDS (9.7-12.2) H 03/22/18 16:02 INR 1.5 03/22/18 16:02 APTT 31 SECONDS (21-34) 03/22/18 16:02 - Constitutional Appears: No Acute Distress, Cachectic, Chronically Ill - Head Exam Head Exam: NORMOCEPHALIC - Eye Exam Eye Exam: PERRL - ENT Exam ENT Exam: Normal Oropharynx - Neck Exam Neck Exam: Normal Inspection - Respiratory Exam Respiratory Exam: Decreased Breath Sounds - Cardiovascular Exam Cardiovascular Exam: REGULAR RHYTHM, +S1, +S2 - GI/Abdominal Exam GI & Abdominal Exam: Soft, Normal Bowel Sounds (PEG IN PLACE) - Extremities Exam Extremities Exam: Pedal Edema. absent: Calf Tenderness - Neurological Exam Neurological Exam: Altered, Awake - Psychiatric Exam Psychiatric exam: Flat Affect - Skin Skin Exam: Pallor, Warm Assessment and Plan (1) Sepsis associated hypotension Status: Acute (2) Respiratory failure requiring intubation Status: Acute (3) Altered mental status Status: Acute (4) Pneumonia Status: Acute (5) Abdominal pain Status: Acute (6) Cholelithiases Status: Acute - Assessment and Plan (Free Text) Plan: CONTINUE IV MERREM 500MG IVPB Q8HRLY 03/04/18 FOR NOW STILL W LEUKOCYTOSIS. PT ON VASOPRESSORS. AWAITING LTAC TRANSFER/ACCEPTANCE. CONTINUE PULMONARY TOILET.
[2018-03-29] MEDS: Meropenem 500 MG in Sodium Chloride 0.9% 100 ML IVPB SCH ×3 (00:49→16:40)
[2018-03-29] MEDS: MethylPREDNISolone 40 mg Vial IVP SCH (02:13)
[2018-03-29] MEDS: Albuterol-Ipratrop 3 mg / 0.5 (3 ml) UD INH SCH ×4 (02:57→19:42)
[2018-03-29] MEDS: Pantoprazole 40 mg Susp UD PO SCH (05:26)
[2018-03-29 06:47] LABS: BASO % 0.2 % (0.0-2.0); LYMPH # 0.1 K/uL (1.0-4.3); LYMPH % 1.3 % (20.0-40.0); MEAN CELL VOLUME 91.3 fL (80.0-94.0); MEAN CORPUSCULAR HEMOGLOBIN 30.3 pg (27.0-31.0); MEAN CORPUSCULAR HGB CONC 33.2 g/dL (33.0-37.0); MEAN PLATELET VOLUME 9.3 fL (7.2-11.7); MONO # 0.1 K/uL (0.0-0.8); MONO % 0.7 % (0.0-10.0); NEUT # 10.6 K/uL (1.8-7.0); NEUT % 97.8 % (50.0-75.0); PLATELET COUNT 106 K/uL (130-400); RBC 2.33 Mil/uL (4.40-5.90); RED CELL DISTRIBUTION WIDTH 19.1 % (11.5-14.5); WHITE BLOOD COUNT 10.8 K/uL (4.8-10.8)
[2018-03-29 07:19] LABS: ALB/GLOB RATIO 1.2 (1.0-2.1); ALBUMIN 2.7 g/dL (3.5-5.0); ALT/SGPT 40 U/L (21-72); AST/SGOT 34 U/L (17-59); BLOOD UREA NITROGEN 13 mg/dL (9-20); CALCIUM 7.3 mg/dl (8.6-10.4); GFR NON-AFRICAN AMERICAN > 60
[2018-03-29] MEDS: Potassium Chloride 20 mEq/15 ml LIQ UD PO SCH ×3 (08:15→18:54)
[2018-03-29] MEDS: Magnesium Sulfate 1 gm in D5W 1 GM/100 ML BAG IVPB SCH ×2 (08:15→08:20)
[2018-03-29 08:57] LABS: ANISOCYTOSIS SLIGHT; LYMPHOCYTE 5 % (20-40); MONOCYTE 1 % (0-10); NEUTROPHIL 94 % (50-75); PLATELET ESTIMATE DECREASED (NORMAL); TOTAL CELLS COUNTED 100
[2018-03-29 08:58] LABS: HYPOCHROMIC SLIGHT; POLYCHROMIC SLIGHT
[2018-03-29] MEDS: Potassium & Sodium Phosphate PO SCH ×3 (09:33→17:05)
[2018-03-29] MEDS: Enoxaparin 30 mg Syringe SC SCH (09:34)
--- NOTE | 2018-03-29 10:40 | CP.PCM.PN ---
Subjective - Date & Time of Evaluation Date of Evaluation: 03/29/18 Time of Evaluation: 10:36 - Subjective Subjective: PT ON VENT VIA TRACH. ROS; UNOBTAINABLE. Objective - Vital Signs/Intake and Output Vital Signs (last 24 hours): Temp Pulse Resp BP Pulse Ox 97.6 F 89 19 127/58 L 100 03/29/18 00:00 03/29/18 06:09 03/29/18 06:09 03/29/18 06:09 03/29/18 06:09 Intake and Output: 03/29/18 03/29/18 06:59 18:59 Intake Total 1130.2 Output Total 2650 Balance -1519.8 - Medications Medications: Current Medications Albuterol/Ipratropium (Duoneb 3 Mg/0.5 Mg (3 Ml) Ud) 3 ml INH RQ6 [facility] Last Admin: 03/29/18 07:25 Dose: 3 ml Ascorbic Acid (Vitamin C 500 Mg Tab) 500 mg PO Q12 [facility] Last Admin: 03/29/18 09:33 Dose: 500 mg Enoxaparin Sodium (Lovenox) 30 mg SC DAILY [facility] Last Admin: 03/29/18 09:34 Dose: 30 mg Fludrocortisone Acetate (Florinef) 0.1 mg PO DAILY [facility] Last Admin: 03/28/18 09:40 Dose: 0.1 mg Hydrocortisone Sodium Succinate (Solu-Cortef) 100 mg IV Q8H [facility] Last Admin: 03/29/18 09:33 Dose: 100 mg Meropenem 500 mg/ Sodium (Chloride) 100 mls @ 100 mls/hr IVPB Q8H [facility]; Protocol Last Admin: 03/29/18 08:21 Dose: 100 mls/hr Midodrine (Proamatine) 2.5 mg PO TID [facility] Last Admin: 03/29/18 09:33 Dose: 2.5 mg Multivitamins/Vitamin C (Multi-Delyn Liquid) 5 ml PO DAILY [facility] Last Admin: 03/28/18 12:22 Dose: 5 ml Pantoprazole Sodium (Protonix Susp) 40 mg PO 0600 [facility] Last Admin: 03/29/18 05:26 Dose: 40 mg Potassium Chloride (Potassium Chloride Oral Soln) 40 meq PO Q6H [facility] Stop: 03/30/18 01:31 Last Admin: 03/29/18 08:15 Dose: 40 meq Potassium Phos/Sodium Phos (Neutra-Phos) 1 pkt PO TID [facility] Last Admin: 03/29/18 09:33 Dose: 1 pkt Zinc Sulfate (Zinc Sulfate 220 Mg Cap) 220 mg PO DAILY [facility] Last Admin: 03/29/18 09:33 Dose: 220 mg - Labs Labs: 03/29/18 06:20 03/29/18 06:20 PT 16.0 SECONDS (9.7-12.2) H 03/22/18 16:02 INR 1.5 03/22/18 16:02 APTT 31 SECONDS (21-34) 03/22/18 16:02 - Constitutional Appears: Cachectic, Chronically Ill - Head Exam Head Exam: ATRAUMATIC, NORMOCEPHALIC - Eye Exam Eye Exam: EOMI, Normal appearance - ENT Exam ENT Exam: Mucous Membranes Moist - Neck Exam Additional comments: TRACH+ - Respiratory Exam Respiratory Exam: Rhonchi - Cardiovascular Exam Cardiovascular Exam: RRR, +S1, +S2 - GI/Abdominal Exam GI & Abdominal Exam: Soft Additional comments: PEG - Rectal Exam Rectal Exam: Deferred - Extremities Exam Extremities Exam: Pedal Edema Additional comments: BILAT UE / LE EDEMA - Back Exam Back Exam: absent: rash noted - Neurological Exam Additional comments: OPENS EYES , NOT FOLLOWING. - Skin Skin Exam: absent: Rash Assessment and Plan (1) Septic shock Status: Acute (2) Altered mental status Status: Acute (3) Pneumonia Status: Acute (4) Respiratory failure requiring intubation Status: Acute (5) COPD exacerbation Status: Acute (6) Cachexia Status: Acute (7) Cholelithiases Status: Acute (8) Alzheimer disease Status: Chronic - Assessment and Plan (Free Text) Assessment: TAPERED OFF IV LEVO. CONT AC SUPPORT, PULM TOILET. MONITOR O2 SAT. TRACH CARE. CXR REVIEWED. MONITOR H/H, POSS TRANS PRBC. AFEBRILE ON AB. TOLERATING FEEDINGS VIA PEG. DECREASE IVF. SUPP K. PROG POOR. DISCUSSED WITH STAFF AT LENGTH. TIME SPENT 45MIN.
--- NOTE | 2018-03-29 10:46 | CP.PCM.PN ---
Subjective - Date & Time of Evaluation Date of Evaluation: 03/29/18 Time of Evaluation: 10:43 - Subjective Subjective: Patient off pressors for more than 12 hours. Tolerating tube feeds Objective - Vital Signs/Intake and Output Vital Signs (last 24 hours): Temp Pulse Resp BP Pulse Ox 97.6 F 89 19 127/58 L 100 03/29/18 00:00 03/29/18 06:09 03/29/18 06:09 03/29/18 06:09 03/29/18 06:09 Intake and Output: 03/29/18 03/29/18 06:59 18:59 Intake Total 1130.2 Output Total 2650 Balance -1519.8 - Medications Medications: Current Medications Albuterol/Ipratropium (Duoneb 3 Mg/0.5 Mg (3 Ml) Ud) 3 ml INH RQ6 [facility] Last Admin: 03/29/18 07:25 Dose: 3 ml Ascorbic Acid (Vitamin C 500 Mg Tab) 500 mg PO Q12 [facility] Last Admin: 03/29/18 09:33 Dose: 500 mg Enoxaparin Sodium (Lovenox) 30 mg SC DAILY [facility] Last Admin: 03/29/18 09:34 Dose: 30 mg Fludrocortisone Acetate (Florinef) 0.1 mg PO DAILY [facility] Last Admin: 03/28/18 09:40 Dose: 0.1 mg Hydrocortisone Sodium Succinate (Solu-Cortef) 100 mg IV Q8H [facility] Last Admin: 03/29/18 09:33 Dose: 100 mg Meropenem 500 mg/ Sodium (Chloride) 100 mls @ 100 mls/hr IVPB Q8H [facility]; Protocol Last Admin: 03/29/18 08:21 Dose: 100 mls/hr Midodrine (Proamatine) 2.5 mg PO TID [facility] Last Admin: 03/29/18 09:33 Dose: 2.5 mg Multivitamins/Vitamin C (Multi-Delyn Liquid) 5 ml PO DAILY [facility] Last Admin: 03/28/18 12:22 Dose: 5 ml Pantoprazole Sodium (Protonix Susp) 40 mg PO 0600 [facility] Last Admin: 03/29/18 05:26 Dose: 40 mg Potassium Chloride (Potassium Chloride Oral Soln) 40 meq PO Q6H [facility] Stop: 03/30/18 01:31 Last Admin: 03/29/18 08:15 Dose: 40 meq Potassium Phos/Sodium Phos (Neutra-Phos) 1 pkt PO TID [facility] Last Admin: 03/29/18 09:33 Dose: 1 pkt Zinc Sulfate (Zinc Sulfate 220 Mg Cap) 220 mg PO DAILY [facility] Last Admin: 03/29/18 09:33 Dose: 220 mg - Labs Labs: 03/29/18 06:20 03/29/18 06:20 PT 16.0 SECONDS (9.7-12.2) H 03/22/18 16:02 INR 1.5 03/22/18 16:02 APTT 31 SECONDS (21-34) 03/22/18 16:02 - Constitutional Appears: Non-toxic - Head Exam Head Exam: ATRAUMATIC - ENT Exam Additional comments: (+)trach - Respiratory Exam Respiratory Exam: Rhonchi, NORMAL BREATHING PATTERN. absent: Chest Wall Tenderness, Wheezes, Respiratory Distress - Cardiovascular Exam Cardiovascular Exam: +S1, +S2, Murmur - GI/Abdominal Exam GI & Abdominal Exam: Normal Bowel Sounds Additional comments: (+) PEG - Extremities Exam Extremities Exam: Pedal Edema - Neurological Exam Neurological Exam: Altered - Skin Skin Exam: Normal Color, Warm Assessment and Plan - Assessment and Plan (Free Text) Assessment: 72 yo male w/PMH of Alzheimer, COPD and arthritis admitted for hypoxic resp failure, s/p trach and peg -Shock: resolved: off norepi -COPD: continue bronchodilators and steroids -continue abx, afebrile overnight -continue DVT/PUD ppx -PAtient remains hemodynamically stable
[2018-03-29] MEDS: Multiple Vitamins Oral Solution PO SCH (13:02)
--- NOTE | 2018-03-29 14:15 | CP.PCM.PN ---
Subjective - Date & Time of Evaluation Date of Evaluation: 03/29/18 Time of Evaluation: 14:14 - Subjective Subjective: Patient is hemodynamically stable after weaning of Levophed Patient on respirator. 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 Patient should be stable for transfer to LTAC next week Objective - Vital Signs/Intake and Output Vital Signs (last 24 hours): Temp Pulse Resp BP Pulse Ox 98.4 F 87 23 102/71 96 03/29/18 11:00 03/29/18 12:41 03/29/18 12:41 03/29/18 12:41 03/29/18 12:26 Intake and Output: 03/29/18 03/29/18 11:59 23:59 Intake Total 1300 120 Output Total 2650 Balance -1350 120 - Medications Medications: Current Medications Albuterol/Ipratropium (Duoneb 3 Mg/0.5 Mg (3 Ml) Ud) 3 ml INH RQ6 [facility] Last Admin: 03/29/18 13:51 Dose: 3 ml Ascorbic Acid (Vitamin C 500 Mg Tab) 500 mg PO Q12 [facility] Last Admin: 03/29/18 09:33 Dose: 500 mg Enoxaparin Sodium (Lovenox) 30 mg SC DAILY [facility] Last Admin: 03/29/18 09:34 Dose: 30 mg Fludrocortisone Acetate (Florinef) 0.1 mg PO DAILY [facility] Last Admin: 03/29/18 13:02 Dose: 0.1 mg Hydrocortisone Sodium Succinate (Solu-Cortef) 100 mg IV Q8H [facility] Last Admin: 03/29/18 09:33 Dose: 100 mg Meropenem 500 mg/ Sodium (Chloride) 100 mls @ 100 mls/hr IVPB Q8H [facility]; Protocol Last Admin: 03/29/18 08:21 Dose: 100 mls/hr Midodrine (Proamatine) 2.5 mg PO TID [facility] Last Admin: 03/29/18 13:01 Dose: 2.5 mg Multivitamins/Vitamin C (Multi-Delyn Liquid) 5 ml PO DAILY [facility] Last Admin: 03/29/18 13:02 Dose: 5 ml Pantoprazole Sodium (Protonix Susp) 40 mg PO 0600 [facility] Last Admin: 03/29/18 05:26 Dose: 40 mg Potassium Chloride (Potassium Chloride Oral Soln) 40 meq PO Q6H [facility] Stop: 03/30/18 01:31 Last Admin: 03/29/18 13:00 Dose: 40 meq Potassium Phos/Sodium Phos (Neutra-Phos) 1 pkt PO TID [facility] Last Admin: 03/29/18 13:00 Dose: 1 pkt Zinc Sulfate (Zinc Sulfate 220 Mg Cap) 220 mg PO DAILY [facility] Last Admin: 03/29/18 09:33 Dose: 220 mg - Labs Labs: 03/29/18 06:20 03/29/18 06:20 PT 16.0 SECONDS (9.7-12.2) H 03/22/18 16:02 INR 1.5 03/22/18 16:02 APTT 31 SECONDS (21-34) 03/22/18 16:02
--- NOTE | 2018-03-29 22:00 | CP.PCM.PN ---
Subjective - Date & Time of Evaluation Date of Evaluation: 03/29/18 Time of Evaluation: 22:00 - Subjective Subjective: AFEBRILE PT ON VENTILATOR VIA TRACH VS BP 90/49 AFEBRILE OFF VASOPRESSORS S/P Open Tracheostomy, #8. 1 AND S/P Percutaneous Endoscopic Gastrostomy Placement, 20F. 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 LML/LLL AND RLL. ? SUPERIMPOSED PNEUMONIA NOT EXCLUDED. TINY BILATERAL PLEURAL EFFUSIONS. K2.3 LOW WBC 10.8 H/H 7.0/21.2 PLT 106 Objective - Vital Signs/Intake and Output Vital Signs (last 24 hours): Temp Pulse Resp BP Pulse Ox 98.4 F 86 24 99/49 L 95 03/29/18 19:00 03/29/18 20:26 03/29/18 20:26 03/29/18 20:26 03/29/18 20:26 Intake and Output: 03/29/18 03/30/18 18:59 06:59 Intake Total 1710 Output Total 700 Balance 1010 - Medications Medications: Current Medications Albuterol/Ipratropium (Duoneb 3 Mg/0.5 Mg (3 Ml) Ud) 3 ml INH RQ6 [facility] Last Admin: 03/29/18 19:42 Dose: 3 ml Ascorbic Acid (Vitamin C 500 Mg Tab) 500 mg PO Q12 [facility] Last Admin: 03/29/18 21:48 Dose: 500 mg Enoxaparin Sodium (Lovenox) 30 mg SC DAILY [facility] Last Admin: 03/29/18 09:34 Dose: 30 mg Fludrocortisone Acetate (Florinef) 0.1 mg PO DAILY [facility] Last Admin: 03/29/18 13:02 Dose: 0.1 mg Hydrocortisone Sodium Succinate (Solu-Cortef) 100 mg IV Q8H [facility] Last Admin: 03/29/18 17:33 Dose: 100 mg Meropenem 500 mg/ Sodium (Chloride) 100 mls @ 100 mls/hr IVPB Q8H [facility]; Protocol Last Admin: 03/29/18 16:40 Dose: 100 mls/hr Midodrine (Proamatine) 2.5 mg PO TID [facility] Last Admin: 03/29/18 17:05 Dose: 2.5 mg Multivitamins/Vitamin C (Multi-Delyn Liquid) 5 ml PO DAILY [facility] Last Admin: 03/29/18 13:02 Dose: 5 ml Pantoprazole Sodium (Protonix Susp) 40 mg PO 0600 [facility] Last Admin: 03/29/18 05:26 Dose: 40 mg Potassium Chloride (Potassium Chloride Oral Soln) 40 meq PO Q6H [facility] Stop: 03/30/18 01:31 Last Admin: 03/29/18 18:54 Dose: 40 meq Potassium Phos/Sodium Phos (Neutra-Phos) 1 pkt PO TID [facility] Last Admin: 03/29/18 17:05 Dose: 1 pkt Zinc Sulfate (Zinc Sulfate 220 Mg Cap) 220 mg PO DAILY [facility] Last Admin: 03/29/18 09:33 Dose: 220 mg - Labs Labs: 03/29/18 06:20 03/29/18 06:20 PT 16.0 SECONDS (9.7-12.2) H 03/22/18 16:02 INR 1.5 03/22/18 16:02 APTT 31 SECONDS (21-34) 03/22/18 16:02 - Constitutional Appears: No Acute Distress, Cachectic, Chronically Ill - Head Exam Head Exam: NORMAL INSPECTION - Eye Exam Eye Exam: PERRL - ENT Exam ENT Exam: Mucous Membranes Moist - Neck Exam Neck Exam: Normal Inspection - Respiratory Exam Respiratory Exam: Rhonchi (B/L RHONCHI), NORMAL BREATHING PATTERN - Cardiovascular Exam Cardiovascular Exam: REGULAR RHYTHM, +S1, +S2 - GI/Abdominal Exam GI & Abdominal Exam: Soft, Normal Bowel Sounds (PEG IN PLACE, NO LEAK,SITE OK) - Extremities Exam Extremities Exam: absent: Calf Tenderness, Pedal Edema - Neurological Exam Neurological Exam: Altered - Psychiatric Exam Psychiatric exam: Flat Affect - Skin Skin Exam: Pallor, Warm Assessment and Plan (1) Respiratory failure requiring intubation Status: Acute (2) Sepsis associated hypotension Status: Acute (3) Altered mental status Status: Acute (4) Pneumonia Status: Acute (5) Abdominal pain Status: Acute (6) Cholelithiases Status: Acute - Assessment and Plan (Free Text) Plan: Plan: CONTINUE ON IV MERREM 500MG IVPB Q8HRLY 03/04/18 . F/U [facility]UM 03/28/18 --PENDING WATCH H/H. K-SUPPLEMENT PER INTENSIVE CARE TEAM CONTINUE PULMONARY TOILET. PER PMD / AND CONSULTANTS. DISCUSSED WITH STAFF.
[2018-03-30] MEDS: Meropenem 500 MG in Sodium Chloride 0.9% 100 ML IVPB SCH ×3 (00:17→17:35)
[2018-03-30] MEDS: Potassium Chloride 20 mEq/15 ml LIQ UD PO SCH (00:27)
[2018-03-30] MEDS: Pantoprazole 40 mg Susp UD PO SCH (05:19)
[2018-03-30 06:08] LABS: BASO % 0.1 % (0.0-2.0); LYMPH # 0.3 K/uL (1.0-4.3); LYMPH % 1.9 % (20.0-40.0); MEAN CORPUSCULAR HEMOGLOBIN 30.3 pg (27.0-31.0); MEAN CORPUSCULAR HGB CONC 33.2 g/dL (33.0-37.0); MEAN PLATELET VOLUME 9.1 fL (7.2-11.7); MONO # 0.2 K/uL (0.0-0.8); MONO % 1.3 % (0.0-10.0); NEUT # 13.4 K/uL (1.8-7.0); NEUT % 96.7 % (50.0-75.0); NRBC % 0.1 % (0.0-2.0); PLATELET COUNT 116 K/uL (130-400); RBC 2.99 Mil/uL (4.40-5.90); RED CELL DISTRIBUTION WIDTH 18.3 % (11.5-14.5); WHITE BLOOD COUNT 13.8 K/uL (4.8-10.8)
[2018-03-30 06:29] LABS: BLOOD UREA NITROGEN 17 mg/dL (9-20); CALCIUM 7.7 mg/dl (8.6-10.4); GFR NON-AFRICAN AMERICAN > 60
[2018-03-30] MEDS: Albuterol-Ipratrop 3 mg / 0.5 (3 ml) UD INH SCH ×3 (07:30→20:06)
[2018-03-30 08:30] LABS: ANISOCYTOSIS SLIGHT; LYMPHOCYTE 1 % (20-40); MONOCYTE 2 % (0-10); NEUTROPHIL 97 % (50-75); PLATELET ESTIMATE SLIGHTLY DECREASED (NORMAL); TOTAL CELLS COUNTED 100
[2018-03-30 08:31] LABS: HYPOCHROMIC SLIGHT; POLYCHROMIC SLIGHT
--- NOTE | 2018-03-30 09:13 | CP.PCM.PN ---
Subjective - Date & Time of Evaluation Date of Evaluation: 03/30/18 Time of Evaluation: 09:10 - Subjective Subjective: PT ON VENT VIA TRACH. ROS; UNOBTAINABLE Objective - Vital Signs/Intake and Output Vital Signs (last 24 hours): Temp Pulse Resp BP Pulse Ox 98.5 F 84 16 105/48 L 100 03/30/18 03:00 03/30/18 08:00 03/30/18 04:00 03/30/18 02:26 03/30/18 04:00 Intake and Output: 03/30/18 03/30/18 06:59 18:59 Intake Total 680 Output Total 900 Balance -220 - Medications Medications: Current Medications Albuterol/Ipratropium (Duoneb 3 Mg/0.5 Mg (3 Ml) Ud) 3 ml INH RQ6 [facility] Last Admin: 03/30/18 07:30 Dose: 3 ml Ascorbic Acid (Vitamin C 500 Mg Tab) 500 mg PO Q12 [facility] Last Admin: 03/29/18 21:48 Dose: 500 mg Enoxaparin Sodium (Lovenox) 30 mg SC DAILY [facility] Last Admin: 03/29/18 09:34 Dose: 30 mg Fludrocortisone Acetate (Florinef) 0.1 mg PO DAILY [facility] Last Admin: 03/29/18 13:02 Dose: 0.1 mg Hydrocortisone Sodium Succinate (Solu-Cortef) 100 mg IV Q8H [facility] Last Admin: 03/30/18 03:30 Dose: 100 mg Meropenem 500 mg/ Sodium (Chloride) 100 mls @ 100 mls/hr IVPB Q8H [facility]; Protocol Last Admin: 03/30/18 08:21 Dose: 100 mls/hr Midodrine (Proamatine) 2.5 mg PO TID [facility] Last Admin: 03/29/18 17:05 Dose: 2.5 mg Multivitamins/Vitamin C (Multi-Delyn Liquid) 5 ml PO DAILY [facility] Last Admin: 03/29/18 13:02 Dose: 5 ml Pantoprazole Sodium (Protonix Susp) 40 mg PO 0600 [facility] Last Admin: 03/30/18 05:19 Dose: 40 mg Potassium Phos/Sodium Phos (Neutra-Phos) 1 pkt PO TID [facility] Last Admin: 03/29/18 17:05 Dose: 1 pkt Zinc Sulfate (Zinc Sulfate 220 Mg Cap) 220 mg PO DAILY [facility] Last Admin: 03/29/18 09:33 Dose: 220 mg - Labs Labs: 03/30/18 06:05 03/30/18 06:05 PT 16.0 SECONDS (9.7-12.2) H 03/22/18 16:02 INR 1.5 03/22/18 16:02 APTT 31 SECONDS (21-34) 03/22/18 16:02 - Constitutional Appears: Cachectic, Chronically Ill - Head Exam Head Exam: ATRAUMATIC, NORMOCEPHALIC - Eye Exam Eye Exam: EOMI, Normal appearance - ENT Exam ENT Exam: Mucous Membranes Moist - Neck Exam Additional comments: TRACH - Respiratory Exam Respiratory Exam: Rhonchi. absent: Respiratory Distress - Cardiovascular Exam Cardiovascular Exam: RRR, +S1, +S2 - GI/Abdominal Exam GI & Abdominal Exam: Soft Additional comments: PEG - Rectal Exam Rectal Exam: Deferred - Extremities Exam Extremities Exam: Pedal Edema Additional comments: DECREASED EDEMA BILAT - Back Exam Back Exam: absent: rash noted - Neurological Exam Neurological Exam: Awake. absent: Oriented x3 - Skin Skin Exam: absent: Rash Assessment and Plan (1) Septic shock Status: Acute (2) Altered mental status Status: Acute (3) Pneumonia Status: Acute (4) Respiratory failure requiring intubation Status: Acute (5) COPD exacerbation Status: Acute (6) Cachexia Status: Acute (7) Cholelithiases Status: Acute (8) Alzheimer disease Status: Chronic - Assessment and Plan (Free Text) Assessment: OFF PRESSORS., RESP STATUS NO SIG CHANGE. CONT AC SUPPORT., PULM TOILET., NEB BD., CXR REVIEWED. AFEBRILE ON AB. CONT FEEDINGS., SUPP K. MONITOR H/H. FOR PT. PENDING TRANSFER TO [facility]. PROG POOR. DISCUSSED WITH STAFF . TIME SPENT 45MIN.
[2018-03-30] MEDS: Enoxaparin 30 mg Syringe SC SCH (09:20)
[2018-03-30] MEDS: Multiple Vitamins Oral Solution PO SCH (09:22)
[2018-03-30] MEDS: Potassium & Sodium Phosphate PO SCH ×3 (09:23→17:36)
--- NOTE | 2018-03-30 16:13 | CP.PCM.PN ---
Subjective - Date & Time of Evaluation Date of Evaluation: 03/30/18 Time of Evaluation: 16:12 - Subjective Subjective: Patient is hemodynamically stable after weaning of Levophed Patient on respirator. 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 Patient should be stable for transfer to LTAC next week PERSISTENT LOW K Objective - Vital Signs/Intake and Output Vital Signs (last 24 hours): Temp Pulse Resp BP Pulse Ox 98.2 F 80 16 105/48 L 100 03/30/18 08:00 03/30/18 08:00 03/30/18 08:00 03/30/18 02:26 03/30/18 08:00 Intake and Output: 03/30/18 03/30/18 11:59 23:59 Intake Total 680 Output Total 900 Balance -220 - Medications Medications: Current Medications Albuterol/Ipratropium (Duoneb 3 Mg/0.5 Mg (3 Ml) Ud) 3 ml INH RQ6 [facility] Last Admin: 03/30/18 13:14 Dose: 3 ml Ascorbic Acid (Vitamin C 500 Mg Tab) 500 mg PO Q12 [facility] Last Admin: 03/30/18 09:23 Dose: 500 mg Enoxaparin Sodium (Lovenox) 30 mg SC DAILY [facility] Last Admin: 03/30/18 09:20 Dose: 30 mg Fludrocortisone Acetate (Florinef) 0.1 mg PO DAILY [facility] Last Admin: 03/30/18 09:22 Dose: 0.1 mg Hydrocortisone Sodium Succinate (Solu-Cortef) 100 mg IV Q8H [facility] Last Admin: 03/30/18 09:43 Dose: 100 mg Meropenem 500 mg/ Sodium (Chloride) 100 mls @ 100 mls/hr IVPB Q8H [facility]; Protocol Last Admin: 03/30/18 08:21 Dose: 100 mls/hr Potassium Chloride 40 meq/ (Dextrose) 1,020 mls @ 60 mls/hr IV .Q17H [facility] Midodrine (Proamatine) 2.5 mg PO TID [facility] Last Admin: 03/30/18 13:24 Dose: 2.5 mg Multivitamins/Vitamin C (Multi-Delyn Liquid) 5 ml PO DAILY [facility] Last Admin: 03/30/18 09:22 Dose: 5 ml Pantoprazole Sodium (Protonix Susp) 40 mg PO 0600 [facility] Last Admin: 03/30/18 05:19 Dose: 40 mg Potassium Phos/Sodium Phos (Neutra-Phos) 1 pkt PO TID [facility] Last Admin: 03/30/18 13:24 Dose: 1 pkt Zinc Sulfate (Zinc Sulfate 220 Mg Cap) 220 mg PO DAILY [facility] Last Admin: 03/30/18 09:23 Dose: 220 mg - Labs Labs: 03/30/18 06:05 03/30/18 06:05 PT 16.0 SECONDS (9.7-12.2) H 03/22/18 16:02 INR 1.5 03/22/18 16:02 APTT 31 SECONDS (21-34) 03/22/18 16:02
--- NOTE | 2018-03-30 23:09 | CP.PCM.PN ---
Subjective - Date & Time of Evaluation Date of Evaluation: 03/30/18 Time of Evaluation: 23:09 - Subjective Subjective: AFEBRILE, +VE TRACHEOSTOMY. NO NEW EVENTS. ON IV ABX. ON PEG FEEDINGS. ROS : NA. LABS REVIEWED Objective - Vital Signs/Intake and Output Vital Signs (last 24 hours): Temp Pulse Resp BP Pulse Ox 97.6 F 82 16 141/66 100 03/30/18 20:00 03/30/18 16:00 03/30/18 16:00 03/30/18 16:00 03/30/18 20:00 Intake and Output: 03/30/18 03/31/18 18:59 06:59 Intake Total 880 Output Total 2500 Balance -1620 - Medications Medications: Current Medications Albuterol/Ipratropium (Duoneb 3 Mg/0.5 Mg (3 Ml) Ud) 3 ml INH RQ6 [facility] Last Admin: 03/30/18 20:06 Dose: 3 ml Ascorbic Acid (Vitamin C 500 Mg Tab) 500 mg PO Q12 [facility] Last Admin: 03/30/18 23:00 Dose: 500 mg Enoxaparin Sodium (Lovenox) 30 mg SC DAILY [facility] Last Admin: 03/30/18 09:20 Dose: 30 mg Fludrocortisone Acetate (Florinef) 0.1 mg PO DAILY [facility] Last Admin: 03/30/18 09:22 Dose: 0.1 mg Hydrocortisone Sodium Succinate (Solu-Cortef) 100 mg IV Q8H [facility] Last Admin: 03/30/18 17:36 Dose: 100 mg Meropenem 500 mg/ Sodium (Chloride) 100 mls @ 100 mls/hr IVPB Q8H [facility]; Protocol Last Admin: 03/30/18 17:35 Dose: 100 mls/hr Potassium Chloride 40 meq/ (Dextrose) 1,020 mls @ 60 mls/hr IV .Q17H [facility] Last Admin: 03/30/18 16:24 Dose: 60 mls/hr Midodrine (Proamatine) 2.5 mg PO TID [facility] Last Admin: 03/30/18 17:36 Dose: 2.5 mg Multivitamins/Vitamin C (Multi-Delyn Liquid) 5 ml PO DAILY [facility] Last Admin: 03/30/18 09:22 Dose: 5 ml Pantoprazole Sodium (Protonix Susp) 40 mg PO 0600 [facility] Last Admin: 03/30/18 05:19 Dose: 40 mg Potassium Phos/Sodium Phos (Neutra-Phos) 1 pkt PO TID [facility] Last Admin: 03/30/18 17:36 Dose: 1 pkt Zinc Sulfate (Zinc Sulfate 220 Mg Cap) 220 mg PO DAILY [facility] Last Admin: 03/30/18 09:23 Dose: 220 mg - Labs Labs: 03/30/18 06:05 03/30/18 06:05 PT 16.0 SECONDS (9.7-12.2) H 03/22/18 16:02 INR 1.5 03/22/18 16:02 APTT 31 SECONDS (21-34) 03/22/18 16:02 - Constitutional Appears: No Acute Distress, Cachectic, Chronically Ill - Head Exam Head Exam: NORMAL INSPECTION - Eye Exam Eye Exam: PERRL - ENT Exam ENT Exam: Mucous Membranes Moist, Normal Oropharynx - Neck Exam Neck Exam: Normal Inspection - Respiratory Exam Respiratory Exam: Decreased Breath Sounds - Cardiovascular Exam Cardiovascular Exam: REGULAR RHYTHM, +S1, +S2 - GI/Abdominal Exam GI & Abdominal Exam: Soft, Normal Bowel Sounds (PEG IN PLACE.) - Extremities Exam Extremities Exam: Normal Capillary Refill. absent: Calf Tenderness, Pedal Edema - Neurological Exam Neurological Exam: Altered - Psychiatric Exam Psychiatric exam: Flat Affect - Skin Skin Exam: Normal Color, Warm Assessment and Plan (1) Respiratory failure requiring intubation Status: Acute (2) Sepsis associated hypotension Status: Acute (3) Altered mental status Status: Acute (4) Pneumonia Status: Acute (5) Abdominal pain Status: Acute (6) Cholelithiases Status: Acute - Assessment and Plan (Free Text) Plan: Plan: TO CONTINUE IV MERREM 500MG IVPB Q8HRLY 03/04/18 F/U SPUTUM 03/28/18 - PENDING WATCH H/H. K-SUPPLEMENT PER INTENSIVE CARE TEAM CONTINUE PULMONARY TOILET. PER PMD / AND CONSULTANTS.
[2018-03-31] MEDS: Meropenem 500 MG in Sodium Chloride 0.9% 100 ML IVPB SCH ×3 (01:45→17:13)
[2018-03-31] MEDS: Albuterol-Ipratrop 3 mg / 0.5 (3 ml) UD INH SCH ×4 (02:47→19:35)
[2018-03-31] MEDS: Pantoprazole 40 mg Susp UD PO SCH (05:19)
[2018-03-31 06:20] LABS: BASO % 0.1 % (0.0-2.0); EOS % 0.1 % (0.0-4.0); HEMOGLOBIN 9.7 g/dL (12.0-18.0); LYMPH # 0.2 K/uL (1.0-4.3); LYMPH % 1.5 % (20.0-40.0); MEAN CELL VOLUME 91.1 fL (80.0-94.0); MEAN CORPUSCULAR HEMOGLOBIN 30.1 pg (27.0-31.0); MEAN CORPUSCULAR HGB CONC 33.1 g/dL (33.0-37.0); MEAN PLATELET VOLUME 8.8 fL (7.2-11.7); MONO # 0.2 K/uL (0.0-0.8); MONO % 1.7 % (0.0-10.0); NEUT # 10.9 K/uL (1.8-7.0); NEUT % 96.6 % (50.0-75.0); NRBC % 0.1 % (0.0-2.0); PLATELET COUNT 119 K/uL (130-400); RBC 3.22 Mil/uL (4.40-5.90); RED CELL DISTRIBUTION WIDTH 18.3 % (11.5-14.5); WHITE BLOOD COUNT 11.3 K/uL (4.8-10.8)
[2018-03-31 06:39] LABS: ALB/GLOB RATIO 1.1 (1.0-2.1); ALBUMIN 2.7 g/dL (3.5-5.0); ALT/SGPT 44 U/L (21-72); AST/SGOT 47 U/L (17-59); BLOOD UREA NITROGEN 15 mg/dL (9-20); CALCIUM 7.2 mg/dl (8.6-10.4); GFR NON-AFRICAN AMERICAN > 60
[2018-03-31 08:01] LABS: BANDS 3 % (0-2); LYMPHOCYTE 4 % (20-40); MONOCYTE 2 % (0-10); NEUTROPHIL 91 % (50-75); TOTAL CELLS COUNTED 100
[2018-03-31 08:02] LABS: ANISOCYTOSIS SLIGHT; HYPOCHROMIC SLIGHT; PLATELET ESTIMATE SLIGHTLY DECREASED (NORMAL); POIKILOCYTOSIS SLIGHT
[2018-03-31 08:03] LABS: BURR CELLS SLIGHT; TEARDROP CELLS SLIGHT
[2018-03-31] MEDS: Enoxaparin 30 mg Syringe SC SCH (09:24)
[2018-03-31] MEDS: Potassium & Sodium Phosphate PO SCH ×3 (09:24→17:17)
[2018-03-31 09:34] LABS: ARTERIAL BLOOD GAS HCO3 32.4 mmol/L (21-28); ARTERIAL BLOOD GAS O2 SAT 99.1 % (95-98); ARTERIAL BLOOD GAS PCO2 36 mm/Hg (35-45); ARTERIAL BLOOD GAS PH 7.56 (7.35-7.45); ARTERIAL BLOOD GAS PO2 110 mm/Hg (80-100); ARTERIAL BLOOD GAS TCO2 33.3 mmol/L (22-28)
[2018-03-31] MEDS: Multiple Vitamins Oral Solution PO SCH (09:35)
--- NOTE | 2018-03-31 09:53 | VASCLAB ---
Date of service: 03/28/2018 PROCEDURE: Upper Extremity Venous Duplex Exam HISTORY: R/O Acute DVT PRIORS: None. TECHNIQUE: Bilateral upper extremity, internal jugular, subclavian, axillary, brachial, ulnar, radial, basilic and upper cephalic veins were evaluated. Flow was assessed with color Doppler, compressibility, assessment of phasic flow and augmentation response. Report prepared by YENNIFER Crandall FINDINGS: RIGHT: 1. Internal Jugular: 1.1. Compressibility - Fully compressible: Thrombus - None : Flow - Phasic: Augmentation -Normal: Reflux - None. 2. Subclavian: 2.1. Unable to examine, covered area. 3. Axillary: 3.1. Compressibility - Fully compressible: Thrombus - None : Flow - Phasic: Augmentation -Normal: Reflux - None. 4. Brachial: 4.1. Unable to examine, covered area. 5. Ulnar: 5.1. Compressibility - Fully compressible: Thrombus - None: Flow - Phasic: Augmentation -Normal: Reflux - None. 6. Radial: 6.1. Compressibility - Fully compressible: Thrombus - None: Flow - Phasic: Augmentation - Normal: Reflux - None. 7. Cephalic: (forearm) 7.1. Compressibility - Fully compressible: Thrombus - None: Flow - Phasic: Augmentation -Normal: Reflux - None. 8. Basilic: 8.1. Not visualized. LEFT: 1. Internal Jugular: 1.1. Compressibility - Fully compressible: Thrombus - None : Flow - Phasic: Augmentation -Normal: Reflux - None. 2. Subclavian: 2.1. Compressibility - Fully compressible: Thrombus - None : Flow - Phasic: Augmentation -Normal: Reflux - None. 3. Axillary: 3.1. Compressibility - Fully compressible: Thrombus - None : Flow - Phasic: Augmentation -Normal: Reflux - None. 4. Brachial: 4.1. Compressibility - Fully compressible: Thrombus - None: Flow - Phasic: Augmentation -Normal: Reflux - None. 5. Ulnar: 5.1. Unable to image, diminutive caliber. 6. Radial: 6.1. Compressibility - Fully compressible: Thrombus - None: Flow - Phasic: Augmentation - Normal: Reflux - None. 7. Cephalic: 7.1. Not visualized. 8. Basilic: 8.1. Compressibility - Fully compressible: Thrombus - None: Flow - Phasic: Augmentation -Normal: Reflux - None. OTHER FINDINGS: Limited exam due to lines with dressings. IMPRESSION: No evidence of venous thrombosis of bilateral upper extremities, for the examined veins.
--- NOTE | 2018-03-31 10:18 | CP.PCM.PN ---
Subjective - Date & Time of Evaluation Date of Evaluation: 03/31/18 Time of Evaluation: 10:15 - Subjective Subjective: PT ON VENT VIA TRACH. ROS; UNOBTAINABLE. Objective - Vital Signs/Intake and Output Vital Signs (last 24 hours): Temp Pulse Resp BP Pulse Ox 97.8 F 80 16 141/66 100 03/31/18 04:00 03/31/18 01:00 03/30/18 16:00 03/30/18 16:00 03/31/18 04:00 Intake and Output: 03/31/18 03/31/18 06:59 18:59 Intake Total 1240 Output Total 1200 Balance 40 - Medications Medications: Current Medications Albuterol/Ipratropium (Duoneb 3 Mg/0.5 Mg (3 Ml) Ud) 3 ml INH RQ6 [facility] Last Admin: 03/31/18 07:37 Dose: 3 ml Ascorbic Acid (Vitamin C 500 Mg Tab) 500 mg PO Q12 [facility] Last Admin: 03/31/18 09:22 Dose: 500 mg Enoxaparin Sodium (Lovenox) 30 mg SC DAILY [facility] Last Admin: 03/31/18 09:24 Dose: 30 mg Fludrocortisone Acetate (Florinef) 0.1 mg PO DAILY [facility] Last Admin: 03/31/18 09:35 Dose: 0.1 mg Hydrocortisone Sodium Succinate (Solu-Cortef) 100 mg IV Q8H [facility] Last Admin: 03/31/18 09:30 Dose: 100 mg Meropenem 500 mg/ Sodium (Chloride) 100 mls @ 100 mls/hr IVPB Q8H [facility]; Protocol Last Admin: 03/31/18 08:49 Dose: 100 mls/hr Potassium Chloride 40 meq/ (Dextrose) 1,020 mls @ 60 mls/hr IV .Q17H [facility] Last Admin: 03/31/18 09:34 Dose: 60 mls/hr Potassium Chloride (Potassium Chloride 20 Meq/100 Ml) 20 meq in 100 mls @ 50 mls/hr IVPB Q2H [facility] Stop: 03/31/18 11:29 Last Admin: 03/31/18 08:48 Dose: 50 mls/hr Midodrine (Proamatine) 2.5 mg PO TID [facility] Last Admin: 03/31/18 09:24 Dose: 2.5 mg Multivitamins/Vitamin C (Multi-Delyn Liquid) 5 ml PO DAILY [facility] Last Admin: 03/31/18 09:35 Dose: 5 ml Pantoprazole Sodium (Protonix Susp) 40 mg PO 0600 [facility] Last Admin: 03/31/18 05:19 Dose: 40 mg Potassium Phos/Sodium Phos (Neutra-Phos) 1 pkt PO TID [facility] Last Admin: 03/31/18 09:24 Dose: 1 pkt Zinc Sulfate (Zinc Sulfate 220 Mg Cap) 220 mg PO DAILY [facility] Last Admin: 03/31/18 09:24 Dose: 220 mg - Labs Labs: 03/31/18 06:13 03/31/18 06:13 PT 16.0 SECONDS (9.7-12.2) H 03/22/18 16:02 INR 1.5 03/22/18 16:02 APTT 31 SECONDS (21-34) 03/22/18 16:02 - Constitutional Appears: Cachectic, Chronically Ill - Head Exam Head Exam: ATRAUMATIC, NORMOCEPHALIC - Eye Exam Eye Exam: EOMI, Normal appearance - ENT Exam ENT Exam: Mucous Membranes Moist - Neck Exam Additional comments: TRACH - Respiratory Exam Respiratory Exam: Rhonchi. absent: Accessory Muscle Use, Respiratory Distress - Cardiovascular Exam Cardiovascular Exam: RRR, +S1, +S2 - GI/Abdominal Exam GI & Abdominal Exam: Soft Additional comments: PEG - Rectal Exam Rectal Exam: Deferred - Extremities Exam Extremities Exam: Pedal Edema - Back Exam Back Exam: absent: rash noted - Neurological Exam Neurological Exam: Altered, Awake. absent: Oriented x3 - Skin Skin Exam: absent: Rash Assessment and Plan (1) Septic shock Status: Acute (2) Altered mental status Status: Acute (3) Pneumonia Status: Acute (4) Respiratory failure requiring intubation Status: Acute (5) COPD exacerbation Status: Acute (6) Cachexia Status: Acute (7) Cholelithiases Status: Acute (8) Alzheimer disease Status: Chronic - Assessment and Plan (Free Text) Assessment: ON MIDODRINE, FLORINEF. RESP STATUS NO SIG CHANGE., CONT AC SUPPORT., ADEQ. ABG NOTED., CONT PULM TOILET., CXR REVIEWED. AFEBRILE ON AB. CONT PEG FEEDINGS, SUPP K. PROG POOR. PENDING TRANSFER TO [facility]. DISCUSSED WITH STAFF AND RT AT LENGTH. TIME SPENT 1HR.
--- NOTE | 2018-03-31 11:48 | CP.PCM.PN ---
Subjective - Date & Time of Evaluation Date of Evaluation: 03/31/18 Time of Evaluation: 11:48 - Subjective Subjective: Patient is hemodynamically stable after weaning of Levophed Patient on respirator. 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 Patient should be stable for transfer to LTAC next week PERSISTENT LOW K Objective - Vital Signs/Intake and Output Vital Signs (last 24 hours): Temp Pulse Resp BP Pulse Ox 97.8 F 80 16 141/66 100 03/31/18 04:00 03/31/18 01:00 03/30/18 16:00 03/30/18 16:00 03/31/18 04:00 Intake and Output: 03/30/18 03/31/18 23:59 11:59 Intake Total 680 1240 Output Total 2500 1200 Balance -1820 40 - Medications Medications: Current Medications Albuterol/Ipratropium (Duoneb 3 Mg/0.5 Mg (3 Ml) Ud) 3 ml INH RQ6 [facility] Last Admin: 03/31/18 07:37 Dose: 3 ml Ascorbic Acid (Vitamin C 500 Mg Tab) 500 mg PO Q12 [facility] Last Admin: 03/31/18 09:22 Dose: 500 mg Enoxaparin Sodium (Lovenox) 30 mg SC DAILY [facility] Last Admin: 03/31/18 09:24 Dose: 30 mg Fludrocortisone Acetate (Florinef) 0.1 mg PO DAILY [facility] Last Admin: 03/31/18 09:35 Dose: 0.1 mg Hydrocortisone Sodium Succinate (Solu-Cortef) 100 mg IV Q8H [facility] Last Admin: 03/31/18 09:30 Dose: 100 mg Meropenem 500 mg/ Sodium (Chloride) 100 mls @ 100 mls/hr IVPB Q8H [facility]; Protocol Last Admin: 03/31/18 08:49 Dose: 100 mls/hr Potassium Chloride 40 meq/ (Dextrose) 1,020 mls @ 60 mls/hr IV .Q17H [facility] Last Admin: 03/31/18 09:34 Dose: 60 mls/hr Midodrine (Proamatine) 2.5 mg PO TID [facility] Last Admin: 03/31/18 09:24 Dose: 2.5 mg Multivitamins/Vitamin C (Multi-Delyn Liquid) 5 ml PO DAILY [facility] Last Admin: 03/31/18 09:35 Dose: 5 ml Pantoprazole Sodium (Protonix Susp) 40 mg PO 0600 [facility] Last Admin: 03/31/18 05:19 Dose: 40 mg Potassium Phos/Sodium Phos (Neutra-Phos) 1 pkt PO TID [facility] Last Admin: 03/31/18 09:24 Dose: 1 pkt Zinc Sulfate (Zinc Sulfate 220 Mg Cap) 220 mg PO DAILY [facility] Last Admin: 03/31/18 09:24 Dose: 220 mg - Labs Labs: 03/31/18 06:13 03/31/18 06:13 PT 16.0 SECONDS (9.7-12.2) H 03/22/18 16:02 INR 1.5 03/22/18 16:02 APTT 31 SECONDS (21-34) 03/22/18 16:02
[2018-04-01] MEDS: Meropenem 500 MG in Sodium Chloride 0.9% 100 ML IVPB SCH ×2 (01:15→09:31)
[2018-04-01] MEDS: Albuterol-Ipratrop 3 mg / 0.5 (3 ml) UD INH SCH ×4 (02:44→19:49)
[2018-04-01] MEDS: Pantoprazole 40 mg Susp UD PO SCH (06:00)
[2018-04-01 06:12] LABS: BASO % 0.4 % (0.0-2.0); LYMPH # 0.2 K/uL (1.0-4.3); LYMPH % 1.6 % (20.0-40.0); MEAN CELL VOLUME 90.7 fL (80.0-94.0); MEAN CORPUSCULAR HEMOGLOBIN 30.4 pg (27.0-31.0); MEAN CORPUSCULAR HGB CONC 33.5 g/dL (33.0-37.0); MEAN PLATELET VOLUME 9.1 fL (7.2-11.7); MONO # 0.1 K/uL (0.0-0.8); MONO % 1.2 % (0.0-10.0); NEUT # 9.6 K/uL (1.8-7.0); NEUT % 96.8 % (50.0-75.0); PLATELET COUNT 122 K/uL (130-400); RBC 3.29 Mil/uL (4.40-5.90); RED CELL DISTRIBUTION WIDTH 18.1 % (11.5-14.5); WHITE BLOOD COUNT 9.9 K/uL (4.8-10.8)
[2018-04-01 06:44] LABS: ALBUMIN 2.7 g/dL (3.5-5.0); ALT/SGPT 42 U/L (21-72); AST/SGOT 46 U/L (17-59); BLOOD UREA NITROGEN 13 mg/dL (9-20); CALCIUM 7.4 mg/dl (8.6-10.4); GFR NON-AFRICAN AMERICAN > 60
[2018-04-01 08:12] LABS: ANISOCYTOSIS SLIGHT; BANDS 9 % (0-2); LYMPHOCYTE 4 % (20-40); MONOCYTE 1 % (0-10); NEUTROPHIL 86 % (50-75); PLATELET ESTIMATE SLIGHTLY DECREASED (NORMAL); TOTAL CELLS COUNTED 100
[2018-04-01 08:13] LABS: BURR CELLS SLIGHT; HYPOCHROMIC SLIGHT; MICROCYTOSIS SLIGHT
[2018-04-01] MEDS ORDERED: Magnesium Sulfate 1 gm in D5W 1 GM/100 ML BAG IVPB ONE (08:30)
[2018-04-01] MEDS: Enoxaparin 30 mg Syringe SC SCH (09:32)
[2018-04-01] MEDS: Potassium & Sodium Phosphate PO SCH ×3 (09:32→17:43)
[2018-04-01] MEDS: Multiple Vitamins Oral Solution PO SCH (09:34)
--- NOTE | 2018-04-01 09:48 | CP.PCM.PN ---
Subjective - Date & Time of Evaluation Date of Evaluation: 04/01/18 Time of Evaluation: 09:45 - Subjective Subjective: PT ON VENT VIA TRACH . ROS; UNOBTAINABLE Objective - Vital Signs/Intake and Output Vital Signs (last 24 hours): Temp Pulse Resp BP Pulse Ox 98.2 F 85 18 117/68 100 04/01/18 04:00 04/01/18 04:00 04/01/18 04:00 04/01/18 04:00 04/01/18 04:00 Intake and Output: 04/01/18 04/01/18 06:59 18:59 Intake Total 1200 Output Total 800 Balance 400 - Medications Medications: Current Medications Albuterol/Ipratropium (Duoneb 3 Mg/0.5 Mg (3 Ml) Ud) 3 ml INH RQ6 [facility] Last Admin: 04/01/18 07:33 Dose: 3 ml Ascorbic Acid (Vitamin C 500 Mg Tab) 500 mg PO Q12 [facility] Last Admin: 04/01/18 09:32 Dose: 500 mg Enoxaparin Sodium (Lovenox) 30 mg SC DAILY [facility] Last Admin: 04/01/18 09:32 Dose: 30 mg Fludrocortisone Acetate (Florinef) 0.1 mg PO DAILY [facility] Last Admin: 04/01/18 09:34 Dose: 0.1 mg Hydrocortisone Sodium Succinate (Solu-Cortef) 100 mg IV Q8H [facility] Last Admin: 04/01/18 09:39 Dose: 100 mg Meropenem 500 mg/ Sodium (Chloride) 100 mls @ 100 mls/hr IVPB Q8H [facility]; Protocol Last Admin: 04/01/18 09:31 Dose: 100 mls/hr Potassium Chloride 40 meq/ (Dextrose) 1,020 mls @ 60 mls/hr IV .Q17H [facility] Last Admin: 04/01/18 02:23 Dose: 60 mls/hr Potassium Chloride (Potassium Chloride 20 Meq/100 Ml) 20 meq in 100 mls @ 50 mls/hr IVPB TID [facility] Stop: 04/01/18 19:59 Last Admin: 04/01/18 09:31 Dose: 50 mls/hr Midodrine (Proamatine) 2.5 mg PO TID [facility] Last Admin: 04/01/18 09:32 Dose: 2.5 mg Multivitamins/Vitamin C (Multi-Delyn Liquid) 5 ml PO DAILY [facility] Last Admin: 04/01/18 09:34 Dose: 5 ml Pantoprazole Sodium (Protonix Susp) 40 mg PO 0600 [facility] Last Admin: 04/01/18 06:00 Dose: 40 mg Potassium Phos/Sodium Phos (Neutra-Phos) 1 pkt PO TID [facility] Last Admin: 04/01/18 09:32 Dose: 1 pkt Zinc Sulfate (Zinc Sulfate 220 Mg Cap) 220 mg PO DAILY [facility] Last Admin: 04/01/18 09:32 Dose: 220 mg - Labs Labs: 04/01/18 06:05 04/01/18 06:05 PT 16.0 SECONDS (9.7-12.2) H 03/22/18 16:02 INR 1.5 03/22/18 16:02 APTT 31 SECONDS (21-34) 03/22/18 16:02 - Constitutional Appears: Cachectic, Chronically Ill - Head Exam Head Exam: ATRAUMATIC, NORMOCEPHALIC - Eye Exam Eye Exam: Normal appearance - ENT Exam ENT Exam: Mucous Membranes Dry - Neck Exam Additional comments: TRACH - Respiratory Exam Respiratory Exam: Rhonchi. absent: Wheezes, Respiratory Distress - Cardiovascular Exam Cardiovascular Exam: RRR, +S1, +S2 - GI/Abdominal Exam GI & Abdominal Exam: Soft Additional comments: PEG - Rectal Exam Rectal Exam: Deferred - Extremities Exam Extremities Exam: Pedal Edema - Back Exam Back Exam: absent: rash noted - Neurological Exam Neurological Exam: Altered. absent: Oriented x3 - Skin Skin Exam: absent: Rash Assessment and Plan (1) Septic shock Status: Acute (2) Altered mental status Status: Acute (3) Pneumonia Status: Acute (4) Respiratory failure requiring intubation Status: Acute (5) COPD exacerbation Status: Acute (6) Cachexia Status: Acute (7) Cholelithiases Status: Acute (8) Alzheimer disease Status: Chronic - Assessment and Plan (Free Text) Assessment: OFF PRESSORS. AFEBRILE ON AB. CONT AC SUPPORT., PULM TOILET., NEB BD., MONITOR O2 SAT. NOT TOLERATING WEANING TRIALS. CXR REVIEWED. CONT FEEDINGS VIA PEG. SUPP K. CONT PT. PROG POOR. PENDING TRANSFER TO [facility]. DISCUSSED WITH STAFF AND RT AT LENGTH. TIME SPENT 1HR.
--- NOTE | 2018-04-01 13:38 | CP.PCM.PN ---
Subjective - Date & Time of Evaluation Date of Evaluation: 04/01/18 Time of Evaluation: 13:37 - Subjective Subjective: AFEBRILE ON VENT VIA TRACH. AWAKE/ AND FOLLOWS THE VOICE UNABLE TO RESPOND BECAUSE OF TRACH. NO OVERNIGHT EVENTS NOTED. ROS ; NA LABS; REVIEWED SPUTUM N. CHELSY. Objective - Vital Signs/Intake and Output Vital Signs (last 24 hours): Temp Pulse Resp BP Pulse Ox 97.5 F L 94 H 18 144/74 100 04/01/18 12:00 04/01/18 12:00 04/01/18 12:00 04/01/18 12:00 04/01/18 12:00 Intake and Output: 04/01/18 04/01/18 06:59 18:59 Intake Total 1200 Output Total 800 Balance 400 - Medications Medications: Current Medications Albuterol/Ipratropium (Duoneb 3 Mg/0.5 Mg (3 Ml) Ud) 3 ml INH RQ6 [facility] Last Admin: 04/01/18 13:02 Dose: 3 ml Ascorbic Acid (Vitamin C 500 Mg Tab) 500 mg PO Q12 [facility] Last Admin: 04/01/18 09:32 Dose: 500 mg Enoxaparin Sodium (Lovenox) 30 mg SC DAILY [facility] Last Admin: 04/01/18 09:32 Dose: 30 mg Fludrocortisone Acetate (Florinef) 0.1 mg PO DAILY [facility] Last Admin: 04/01/18 09:34 Dose: 0.1 mg Hydrocortisone Sodium Succinate (Solu-Cortef) 100 mg IV Q8H [facility] Last Admin: 04/01/18 09:39 Dose: 100 mg Meropenem 500 mg/ Sodium (Chloride) 100 mls @ 100 mls/hr IVPB Q8H [facility]; Protocol Last Admin: 04/01/18 09:31 Dose: 100 mls/hr Potassium Chloride 40 meq/ (Dextrose) 1,020 mls @ 60 mls/hr IV .Q17H [facility] Last Admin: 04/01/18 02:23 Dose: 60 mls/hr Potassium Chloride (Potassium Chloride 20 Meq/100 Ml) 20 meq in 100 mls @ 50 mls/hr IVPB TID [facility] Stop: 04/01/18 19:59 Last Admin: 04/01/18 09:31 Dose: 50 mls/hr Midodrine (Proamatine) 2.5 mg PO TID [facility] Last Admin: 04/01/18 09:32 Dose: 2.5 mg Multivitamins/Vitamin C (Multi-Delyn Liquid) 5 ml PO DAILY [facility] Last Admin: 04/01/18 09:34 Dose: 5 ml Pantoprazole Sodium (Protonix Susp) 40 mg PO 0600 [facility] Last Admin: 04/01/18 06:00 Dose: 40 mg Potassium Phos/Sodium Phos (Neutra-Phos) 1 pkt PO TID [facility] Last Admin: 04/01/18 09:32 Dose: 1 pkt Zinc Sulfate (Zinc Sulfate 220 Mg Cap) 220 mg PO DAILY [facility] Last Admin: 04/01/18 09:32 Dose: 220 mg - Labs Labs: 04/01/18 06:05 04/01/18 06:05 PT 16.0 SECONDS (9.7-12.2) H 03/22/18 16:02 INR 1.5 03/22/18 16:02 APTT 31 SECONDS (21-34) 03/22/18 16:02 Assessment and Plan (1) Respiratory failure requiring intubation Status: Acute (2) Sepsis associated hypotension Status: Acute (3) Altered mental status Status: Acute (4) Pneumonia Status: Acute (5) Abdominal pain Status: Acute (6) Cholelithiases Status: Acute - Assessment and Plan (Free Text) Plan: Plan: DC IV MERREM 500MG IVPB Q8HRLY 03/04/18-04/01/18 WILL OBSERVE X 24HRS AFTER ABX DISCONTINUATION. WATCH H/H. K-SUPPLEMENT PER INTENSIVE CARE TEAM CONTINUE PULMONARY TOILET. PER PMD / AND CONSULTANTS.
[2018-04-02] MEDS: Albuterol-Ipratrop 3 mg / 0.5 (3 ml) UD INH SCH ×3 (01:17→13:12)
[2018-04-02 06:15] LABS: BASO % 0.1 % (0.0-2.0); HEMOGLOBIN 9.5 g/dL (12.0-18.0); LYMPH # 0.2 K/uL (1.0-4.3); LYMPH % 3.2 % (20.0-40.0); MEAN CELL VOLUME 91.4 fL (80.0-94.0); MEAN CORPUSCULAR HEMOGLOBIN 30.8 pg (27.0-31.0); MEAN CORPUSCULAR HGB CONC 33.7 g/dL (33.0-37.0); MEAN PLATELET VOLUME 8.8 fL (7.2-11.7); MONO # 0.2 K/uL (0.0-0.8); MONO % 2.2 % (0.0-10.0); NEUT # 7.2 K/uL (1.8-7.0); NEUT % 94.5 % (50.0-75.0); PLATELET COUNT 135 K/uL (130-400); RBC 3.09 Mil/uL (4.40-5.90); RED CELL DISTRIBUTION WIDTH 18.4 % (11.5-14.5); WHITE BLOOD COUNT 7.7 K/uL (4.8-10.8)
[2018-04-02 06:20] LABS: ALBUMIN 2.5 g/dL (3.5-5.0); ALT/SGPT 43 U/L (21-72); AST/SGOT 42 U/L (17-59); BLOOD UREA NITROGEN 14 mg/dL (9-20); CALCIUM 7.6 mg/dl (8.6-10.4); GFR NON-AFRICAN AMERICAN > 60
[2018-04-02 09:02] LABS: ANISOCYTOSIS SLIGHT; BANDS 9 % (0-2); HYPOCHROMIC SLIGHT; LYMPHOCYTE 2 % (20-40); MONOCYTE 4 % (0-10); NEUTROPHIL 85 % (50-75); PLATELET ESTIMATE NORMAL (NORMAL); POIKILOCYTOSIS SLIGHT; TOTAL CELLS COUNTED 100
[2018-04-02 09:13] LABS: TEARDROP CELLS SLIGHT
--- NOTE | 2018-04-02 09:25 | CP.PCM.PN ---
Subjective - Date & Time of Evaluation Date of Evaluation: 04/02/18 Time of Evaluation: 09:23 - Subjective Subjective: PT ON VENT VIA TRACH. ROS; UNOBTAINABLE Objective - Vital Signs/Intake and Output Vital Signs (last 24 hours): Temp Pulse Resp BP Pulse Ox 97.1 F L 79 16 113/63 100 04/02/18 08:00 04/02/18 08:00 04/02/18 08:00 04/02/18 08:00 04/02/18 08:00 Intake and Output: 04/02/18 04/02/18 06:59 18:59 Intake Total 480 Output Total 1100 Balance -620 - Medications Medications: Current Medications Albuterol/Ipratropium (Duoneb 3 Mg/0.5 Mg (3 Ml) Ud) 3 ml INH RQ6 [facility] Last Admin: 04/02/18 07:26 Dose: 3 ml Ascorbic Acid (Vitamin C 500 Mg Tab) 500 mg PO Q12 [facility] Last Admin: 04/01/18 21:25 Dose: 500 mg Enoxaparin Sodium (Lovenox) 30 mg SC DAILY [facility] Last Admin: 04/01/18 09:32 Dose: 30 mg Fludrocortisone Acetate (Florinef) 0.1 mg PO DAILY [facility] Last Admin: 04/01/18 09:34 Dose: 0.1 mg Hydrocortisone Sodium Succinate (Solu-Cortef) 100 mg IV Q8H [facility] Last Admin: 04/02/18 03:44 Dose: 100 mg Potassium Chloride 40 meq/ (Dextrose) 1,020 mls @ 60 mls/hr IV .Q17H [facility] Last Admin: 04/01/18 02:23 Dose: 60 mls/hr Midodrine (Proamatine) 2.5 mg PO TID [facility] Last Admin: 04/01/18 17:43 Dose: 2.5 mg Multivitamins/Vitamin C (Multi-Delyn Liquid) 5 ml PO DAILY [facility] Last Admin: 04/01/18 09:34 Dose: 5 ml Pantoprazole Sodium (Protonix Susp) 40 mg PO 0600 [facility] Last Admin: 04/01/18 06:00 Dose: 40 mg Potassium Phos/Sodium Phos (Neutra-Phos) 1 pkt PO TID [facility] Last Admin: 04/01/18 17:43 Dose: 1 pkt Zinc Sulfate (Zinc Sulfate 220 Mg Cap) 220 mg PO DAILY [facility] Last Admin: 04/01/18 09:32 Dose: 220 mg - Labs Labs: 04/02/18 05:47 04/02/18 05:47 PT 16.0 SECONDS (9.7-12.2) H 03/22/18 16:02 INR 1.5 03/22/18 16:02 APTT 31 SECONDS (21-34) 03/22/18 16:02 - Constitutional Appears: Cachectic, Chronically Ill - Head Exam Head Exam: ATRAUMATIC, NORMOCEPHALIC - Eye Exam Eye Exam: EOMI, Normal appearance - ENT Exam ENT Exam: Mucous Membranes Moist - Neck Exam Additional comments: TRACH - Respiratory Exam Respiratory Exam: Rhonchi. absent: Wheezes, Respiratory Distress - Cardiovascular Exam Cardiovascular Exam: RRR, +S1, +S2 - GI/Abdominal Exam GI & Abdominal Exam: Soft Additional comments: PEG - Rectal Exam Rectal Exam: Deferred - Extremities Exam Extremities Exam: Pedal Edema - Back Exam Back Exam: absent: rash noted - Neurological Exam Neurological Exam: Awake - Skin Skin Exam: absent: Rash Assessment and Plan (1) Septic shock Status: Acute (2) Altered mental status Status: Acute (3) Pneumonia Status: Acute (4) Respiratory failure requiring intubation Status: Acute (5) COPD exacerbation Status: Acute (6) Cachexia Status: Acute (7) Cholelithiases Status: Acute (8) Alzheimer disease Status: Chronic - Assessment and Plan (Free Text) Assessment: AFEBRILE, OFF AB NOW PER ID. CONT AC SUPPORT., PULM TOILET., NEB BD., MONITOR O2 SAT. WEANING TRIALS TOLERATED. CXR REVIEWED. CONT FEEDINGS VIA PED, SUPP K. CONT PT. PROG POOR. PENDING TRANSFER TO [facility]. DISCUSSED WITH STAFF. TIME SPENT 45 MIN.
[2018-04-02] MEDS: Pantoprazole 40 mg Susp UD PO SCH (09:30)
[2018-04-02] MEDS: Potassium & Sodium Phosphate PO SCH ×3 (09:31→17:35)
[2018-04-02] MEDS: Enoxaparin 30 mg Syringe SC SCH (09:32)
[2018-04-02] MEDS: Multiple Vitamins Oral Solution PO SCH (09:40)
--- NOTE | 2018-04-02 12:03 | CP.PCM.PN ---
Subjective - Date & Time of Evaluation Date of Evaluation: 04/02/18 Time of Evaluation: 12:03 - Subjective Subjective: Patient is hemodynamically stable after weaning of Levophed Patient on respirator. 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 Patient should be stable for transfer to LTAC next week PERSISTENT LOW K Objective - Vital Signs/Intake and Output Vital Signs (last 24 hours): Temp Pulse Resp BP Pulse Ox 97.1 F L 79 16 113/63 100 04/02/18 08:00 04/02/18 08:00 04/02/18 08:00 04/02/18 08:00 04/02/18 08:00 Intake and Output: 04/02/18 04/02/18 11:59 23:59 Intake Total 1060 Output Total 1100 Balance -40 - Medications Medications: Current Medications Albuterol/Ipratropium (Duoneb 3 Mg/0.5 Mg (3 Ml) Ud) 3 ml INH RQ6 [facility] Last Admin: 04/02/18 07:26 Dose: 3 ml Ascorbic Acid (Vitamin C 500 Mg Tab) 500 mg PO Q12 [facility] Last Admin: 04/02/18 09:31 Dose: 500 mg Enoxaparin Sodium (Lovenox) 30 mg SC DAILY [facility] Last Admin: 04/02/18 09:32 Dose: 30 mg Fludrocortisone Acetate (Florinef) 0.1 mg PO DAILY [facility] Last Admin: 04/02/18 09:32 Dose: 0.1 mg Hydrocortisone Sodium Succinate (Solu-Cortef) 100 mg IV Q8H [facility] Last Admin: 04/02/18 09:30 Dose: 100 mg Potassium Chloride 40 meq/ (Dextrose) 1,020 mls @ 60 mls/hr IV .Q17H [facility] Last Admin: 04/01/18 02:23 Dose: 60 mls/hr Potassium Chloride (Potassium Chloride 20 Meq/100 Ml) 20 meq in 100 mls @ 50 mls/hr IVPB Q1H [facility] Stop: 04/02/18 13:59 Last Admin: 04/02/18 11:26 Dose: 50 mls/hr Midodrine (Proamatine) 2.5 mg PO TID [facility] Last Admin: 04/02/18 09:31 Dose: 2.5 mg Multivitamins/Vitamin C (Multi-Delyn Liquid) 5 ml PO DAILY [facility] Last Admin: 04/02/18 09:40 Dose: 5 ml Pantoprazole Sodium (Protonix Susp) 40 mg PO 0600 [facility] Last Admin: 04/02/18 09:30 Dose: 40 mg Potassium Phos/Sodium Phos (Neutra-Phos) 1 pkt PO TID [facility] Last Admin: 04/02/18 09:31 Dose: 1 pkt Zinc Sulfate (Zinc Sulfate 220 Mg Cap) 220 mg PO DAILY [facility] Last Admin: 04/02/18 09:31 Dose: 220 mg - Labs Labs: 04/02/18 05:47 04/02/18 05:47 PT 16.0 SECONDS (9.7-12.2) H 03/22/18 16:02 INR 1.5 03/22/18 16:02 APTT 31 SECONDS (21-34) 03/22/18 16:02
--- NOTE | 2018-04-02 12:08 | CP.PCM.PN ---
Subjective - Date & Time of Evaluation Date of Evaluation: 04/02/18 Time of Evaluation: 12:08 - Subjective Subjective: AFEBRILE ON VENT VIA TRACH. AWAKE/ AND FOLLOWS THE VOICE UNABLE TO RESPOND BECAUSE OF TRACH. NO OVERNIGHT EVENTS NOTED. ROS ; NA LABS; REVIEWED [facility]. [facility]. Objective - Vital Signs/Intake and Output Vital Signs (last 24 hours): Temp Pulse Resp BP Pulse Ox 97.1 F L 79 16 113/63 100 04/02/18 08:00 04/02/18 08:00 04/02/18 08:00 04/02/18 08:00 04/02/18 08:00 Intake and Output: 04/02/18 04/02/18 06:59 18:59 Intake Total 1060 Output Total 1100 Balance -40 - Medications Medications: Current Medications Albuterol/Ipratropium (Duoneb 3 Mg/0.5 Mg (3 Ml) Ud) 3 ml INH RQ6 [facility] Last Admin: 04/02/18 07:26 Dose: 3 ml Ascorbic Acid (Vitamin C 500 Mg Tab) 500 mg PO Q12 [facility] Last Admin: 04/02/18 09:31 Dose: 500 mg Enoxaparin Sodium (Lovenox) 30 mg SC DAILY [facility] Last Admin: 04/02/18 09:32 Dose: 30 mg Fludrocortisone Acetate (Florinef) 0.1 mg PO DAILY [facility] Last Admin: 04/02/18 09:32 Dose: 0.1 mg Hydrocortisone Sodium Succinate (Solu-Cortef) 100 mg IV Q8H [facility] Last Admin: 04/02/18 09:30 Dose: 100 mg Potassium Chloride 40 meq/ (Dextrose) 1,020 mls @ 60 mls/hr IV .Q17H [facility] Last Admin: 04/01/18 02:23 Dose: 60 mls/hr Potassium Chloride (Potassium Chloride 20 Meq/100 Ml) 20 meq in 100 mls @ 50 mls/hr IVPB Q1H [facility] Stop: 04/02/18 13:59 Last Admin: 04/02/18 11:26 Dose: 50 mls/hr Midodrine (Proamatine) 2.5 mg PO TID [facility] Last Admin: 04/02/18 09:31 Dose: 2.5 mg Multivitamins/Vitamin C (Multi-Delyn Liquid) 5 ml PO DAILY [facility] Last Admin: 04/02/18 09:40 Dose: 5 ml Pantoprazole Sodium (Protonix Susp) 40 mg PO 0600 [facility] Last Admin: 04/02/18 09:30 Dose: 40 mg Potassium Phos/Sodium Phos (Neutra-Phos) 1 pkt PO TID [facility] Last Admin: 04/02/18 09:31 Dose: 1 pkt Zinc Sulfate (Zinc Sulfate 220 Mg Cap) 220 mg PO DAILY [facility] Last Admin: 04/02/18 09:31 Dose: 220 mg - Labs Labs: 04/02/18 05:47 04/02/18 05:47 PT 16.0 SECONDS (9.7-12.2) H 03/22/18 16:02 INR 1.5 03/22/18 16:02 APTT 31 SECONDS (21-34) 03/22/18 16:02 Assessment and Plan (1) Respiratory failure requiring intubation Status: Acute (2) Sepsis associated hypotension Status: Acute (3) Altered mental status Status: Acute (4) Pneumonia Status: Acute (5) Abdominal pain Status: Acute (6) Cholelithiases Status: Acute
[2018-04-03 05:29] LABS: BASO % 0.1 % (0.0-2.0); EOS % 0.1 % (0.0-4.0); LYMPH # 0.3 K/uL (1.0-4.3); LYMPH % 4.3 % (20.0-40.0); MEAN CELL VOLUME 92.3 fL (80.0-94.0); MEAN CORPUSCULAR HEMOGLOBIN 30.7 pg (27.0-31.0); MEAN CORPUSCULAR HGB CONC 33.3 g/dL (33.0-37.0); MEAN PLATELET VOLUME 8.9 fL (7.2-11.7); MONO # 0.1 K/uL (0.0-0.8); MONO % 2.4 % (0.0-10.0); NEUT # 5.6 K/uL (1.8-7.0); NEUT % 93.1 % (50.0-75.0); NRBC % 0.1 % (0.0-2.0); PLATELET COUNT 139 K/uL (130-400); RBC 2.93 Mil/uL (4.40-5.90); RED CELL DISTRIBUTION WIDTH 18.8 % (11.5-14.5)
[2018-04-03] MEDS: Pantoprazole 40 mg Susp UD PO SCH (05:48)
[2018-04-03 05:53] LABS: ALB/GLOB RATIO 0.9 (1.0-2.1); ALBUMIN 2.4 g/dL (3.5-5.0); ALT/SGPT 41 U/L (21-72); AST/SGOT 42 U/L (17-59); BLOOD UREA NITROGEN 17 mg/dL (9-20); CALCIUM 7.6 mg/dl (8.6-10.4); GFR NON-AFRICAN AMERICAN > 60
[2018-04-03 08:31] LABS: BANDS 8 % (0-2); LYMPHOCYTE 6 % (20-40); MONOCYTE 4 % (0-10); NEUTROPHIL 82 % (50-75); PLATELET ESTIMATE NORMAL (NORMAL); TOTAL CELLS COUNTED 100
[2018-04-03 08:32] LABS: ANISOCYTOSIS SLIGHT; HYPOCHROMIC SLIGHT; POIKILOCYTOSIS SLIGHT
--- NOTE | 2018-04-03 09:04 | CP.PCM.PN ---
Subjective - Date & Time of Evaluation Date of Evaluation: 04/03/18 Time of Evaluation: 09:01 - Subjective Subjective: PT ON VENT VIA TRACH. ROS; UNOBTAINABLE Objective - Vital Signs/Intake and Output Vital Signs (last 24 hours): Temp Pulse Resp BP Pulse Ox 96.1 F L 87 16 129/59 L 100 04/03/18 08:00 04/03/18 08:00 04/03/18 08:00 04/03/18 08:00 04/03/18 08:00 Intake and Output: 04/03/18 04/03/18 06:59 18:59 Intake Total 260 Output Total 1100 Balance -840 - Medications Medications: Current Medications Ascorbic Acid (Vitamin C 500 Mg Tab) 500 mg PO Q12 [facility] Last Admin: 04/02/18 21:58 Dose: 500 mg Enoxaparin Sodium (Lovenox) 30 mg SC DAILY [facility] Last Admin: 04/02/18 09:32 Dose: 30 mg Fludrocortisone Acetate (Florinef) 0.1 mg PO DAILY [facility] Last Admin: 04/02/18 09:32 Dose: 0.1 mg Hydrocortisone Sodium Succinate (Solu-Cortef) 100 mg IV Q8H [facility] Last Admin: 04/03/18 02:46 Dose: 100 mg Potassium Chloride 40 meq/ (Dextrose) 1,020 mls @ 60 mls/hr IV .Q17H [facility] Last Admin: 04/03/18 04:49 Dose: 60 mls/hr Midodrine (Proamatine) 2.5 mg PO TID [facility] Last Admin: 04/02/18 17:36 Dose: 2.5 mg Multivitamins/Vitamin C (Multi-Delyn Liquid) 5 ml PO DAILY [facility] Last Admin: 04/02/18 09:40 Dose: 5 ml Pantoprazole Sodium (Protonix Susp) 40 mg PO 0600 [facility] Last Admin: 04/03/18 05:48 Dose: 40 mg Potassium Phos/Sodium Phos (Neutra-Phos) 1 pkt PO TID [facility] Last Admin: 04/02/18 17:35 Dose: 1 pkt Zinc Sulfate (Zinc Sulfate 220 Mg Cap) 220 mg PO DAILY [facility] Last Admin: 04/02/18 09:31 Dose: 220 mg - Labs Labs: 04/03/18 05:18 04/03/18 05:21 PT 16.0 SECONDS (9.7-12.2) H 03/22/18 16:02 INR 1.5 03/22/18 16:02 APTT 31 SECONDS (21-34) 03/22/18 16:02 - Constitutional Appears: Cachectic, Chronically Ill - Head Exam Head Exam: ATRAUMATIC, NORMOCEPHALIC - Eye Exam Eye Exam: EOMI, Normal appearance - ENT Exam ENT Exam: Mucous Membranes Moist - Neck Exam Additional comments: TRACH - Respiratory Exam Respiratory Exam: Rhonchi. absent: Accessory Muscle Use, Respiratory Distress - Cardiovascular Exam Cardiovascular Exam: RRR, +S1, +S2 - GI/Abdominal Exam GI & Abdominal Exam: Soft Additional comments: PEG - Rectal Exam Rectal Exam: Deferred - Extremities Exam Extremities Exam: Pedal Edema - Back Exam Back Exam: absent: rash noted - Neurological Exam Neurological Exam: Awake. absent: Oriented x3 - Skin Skin Exam: absent: Rash Assessment and Plan (1) Septic shock Status: Acute (2) Altered mental status Status: Acute (3) Pneumonia Status: Acute (4) Respiratory failure requiring intubation Status: Acute (5) COPD exacerbation Status: Acute (6) Cachexia Status: Acute (7) Cholelithiases Status: Acute (8) Alzheimer disease Status: Chronic - Assessment and Plan (Free Text) Assessment: RESP STATUS NO SIG CHANGE, CONT AC SUPPORT, PULM TOILET., NEB BD., WEANING TRIALS. CXR REVIEWED. AFEBRILE OFF AB NOW. ON MIDODRINE. TOLERATING FEEDINGS. MONITOR ELECTROLYTES. PROG POOR. DISCUSSED WITH STAFF AT LENGTH. PENDING TRANSFER TO [facility]. TIME SPENT 45 MIN.
[2018-04-03] MEDS: Potassium & Sodium Phosphate PO SCH ×3 (09:18→17:34)
[2018-04-03] MEDS: Enoxaparin 30 mg Syringe SC SCH (09:19)
[2018-04-03] MEDS: Multiple Vitamins Oral Solution PO SCH (09:19)
--- NOTE | 2018-04-03 11:30 | CP.PCM.PN ---
Subjective - Date & Time of Evaluation Date of Evaluation: 04/03/18 Time of Evaluation: 11:29 - Subjective Subjective: Patient is currently intubated through the tracheostomy on a respirator alert awake this morning by eye movements Vital signs are stable afebrile Physical findings remains same with mild inspiratory expiratory wheeze and decreased air entry Potassium is 3.6 Continue vent management Awaiting transfer to [facility] Objective - Vital Signs/Intake and Output Vital Signs (last 24 hours): Temp Pulse Resp BP Pulse Ox 96.1 F L 87 16 129/59 L 100 04/03/18 08:00 04/03/18 10:00 04/03/18 08:00 04/03/18 08:00 04/03/18 08:00 Intake and Output: 04/02/18 04/03/18 23:59 11:59 Intake Total 940 260 Output Total 1400 1100 Balance -460 -840 - Medications Medications: Current Medications Ascorbic Acid (Vitamin C 500 Mg Tab) 500 mg PO Q12 [facility] Last Admin: 04/03/18 09:18 Dose: 500 mg Enoxaparin Sodium (Lovenox) 30 mg SC DAILY [facility] Last Admin: 04/03/18 09:19 Dose: 30 mg Fludrocortisone Acetate (Florinef) 0.1 mg PO DAILY [facility] Last Admin: 04/03/18 09:19 Dose: 0.1 mg Hydrocortisone Sodium Succinate (Solu-Cortef) 100 mg IV Q8H [facility] Last Admin: 04/03/18 09:29 Dose: 100 mg Potassium Chloride 40 meq/ (Dextrose) 1,020 mls @ 60 mls/hr IV .Q17H [facility] Last Admin: 04/03/18 04:49 Dose: 60 mls/hr Midodrine (Proamatine) 2.5 mg PO TID [facility] Last Admin: 04/03/18 09:18 Dose: 2.5 mg Multivitamins/Vitamin C (Multi-Delyn Liquid) 5 ml PO DAILY [facility] Last Admin: 04/03/18 09:19 Dose: 5 ml Pantoprazole Sodium (Protonix Susp) 40 mg PO 0600 [facility] Last Admin: 04/03/18 05:48 Dose: 40 mg Potassium Phos/Sodium Phos (Neutra-Phos) 1 pkt PO TID [facility] Last Admin: 04/03/18 09:18 Dose: 1 pkt Zinc Sulfate (Zinc Sulfate 220 Mg Cap) 220 mg PO DAILY [facility] Last Admin: 04/03/18 09:18 Dose: 220 mg - Labs Labs: 04/03/18 05:18 04/03/18 05:21 PT 16.0 SECONDS (9.7-12.2) H 03/22/18 16:02 INR 1.5 03/22/18 16:02 APTT 31 SECONDS (21-34) 03/22/18 16:02
--- NOTE | 2018-04-03 14:59 | CP.PCM.PN ---
Subjective - Date & Time of Evaluation Date of Evaluation: 04/03/18 Time of Evaluation: 14:58 - Subjective Subjective: AFEBRILE AWAKE. TRACH IN POSITION. ON VENTILATOR. COMFORTABLE. ROS: NA OFF ABX. Objective - Vital Signs/Intake and Output Vital Signs (last 24 hours): Temp Pulse Resp BP Pulse Ox 96.7 F L 93 H 16 123/62 100 04/03/18 12:00 04/03/18 12:00 04/03/18 12:00 04/03/18 12:00 04/03/18 12:00 Intake and Output: 04/03/18 04/03/18 06:59 18:59 Intake Total 260 Output Total 1100 Balance -840 - Medications Medications: Current Medications Ascorbic Acid (Vitamin C 500 Mg Tab) 500 mg PO Q12 [facility] Last Admin: 04/03/18 09:18 Dose: 500 mg Enoxaparin Sodium (Lovenox) 30 mg SC DAILY [facility] Last Admin: 04/03/18 09:19 Dose: 30 mg Fludrocortisone Acetate (Florinef) 0.1 mg PO DAILY [facility] Last Admin: 04/03/18 09:19 Dose: 0.1 mg Hydrocortisone Sodium Succinate (Solu-Cortef) 100 mg IV Q8H [facility] Last Admin: 04/03/18 09:29 Dose: 100 mg Potassium Chloride 40 meq/ (Dextrose) 1,020 mls @ 60 mls/hr IV .Q17H [facility] Last Admin: 04/03/18 13:02 Dose: 60 mls/hr Midodrine (Proamatine) 2.5 mg PO TID [facility] Last Admin: 04/03/18 13:05 Dose: 2.5 mg Multivitamins/Vitamin C (Multi-Delyn Liquid) 5 ml PO DAILY [facility] Last Admin: 04/03/18 09:19 Dose: 5 ml Pantoprazole Sodium (Protonix Susp) 40 mg PO 0600 [facility] Last Admin: 04/03/18 05:48 Dose: 40 mg Potassium Phos/Sodium Phos (Neutra-Phos) 1 pkt PO TID [facility] Last Admin: 04/03/18 13:04 Dose: 1 pkt Zinc Sulfate (Zinc Sulfate 220 Mg Cap) 220 mg PO DAILY [facility] Last Admin: 04/03/18 09:18 Dose: 220 mg - Labs Labs: 04/03/18 05:18 04/03/18 05:21 PT 16.0 SECONDS (9.7-12.2) H 03/22/18 16:02 INR 1.5 03/22/18 16:02 APTT 31 SECONDS (21-34) 03/22/18 16:02 - Constitutional Appears: No Acute Distress, Cachectic, Chronically Ill - Head Exam Head Exam: NORMOCEPHALIC - Eye Exam Eye Exam: EOMI, Normal appearance, PERRL - ENT Exam ENT Exam: Normal Oropharynx - Neck Exam Neck Exam: Normal Inspection - Respiratory Exam Respiratory Exam: Decreased Breath Sounds, NORMAL BREATHING PATTERN - Cardiovascular Exam Cardiovascular Exam: REGULAR RHYTHM, +S1, +S2 - GI/Abdominal Exam GI & Abdominal Exam: Soft, Normal Bowel Sounds - Extremities Exam Extremities Exam: Normal Capillary Refill. absent: Calf Tenderness, Pedal Edema - Neurological Exam Neurological Exam: Awake, CN II-XII Intact - Psychiatric Exam Psychiatric exam: Flat Affect - Skin Skin Exam: Normal Color, Warm Assessment and Plan (1) Respiratory failure requiring intubation Status: Acute (2) Sepsis associated hypotension Status: Acute (3) Altered mental status Status: Acute (4) Pneumonia Status: Acute (5) Abdominal pain Status: Acute (6) Cholelithiases Status: Acute
[2018-04-04] MEDS: Pantoprazole 40 mg Susp UD PO SCH (06:07)
[2018-04-04] MEDS: Potassium & Sodium Phosphate PO SCH ×3 (10:45→18:58)
[2018-04-04] MEDS: Multiple Vitamins Oral Solution PO SCH (11:41)
--- NOTE | 2018-04-04 12:49 | CP.PCM.PN ---
Subjective - Date & Time of Evaluation Date of Evaluation: 04/04/18 Time of Evaluation: 12:47 - Subjective Subjective: PT ON VENT VIA TRACH.. ROS; UNOBTAINABLE. Objective - Vital Signs/Intake and Output Vital Signs (last 24 hours): Temp Pulse Resp BP Pulse Ox 98 F 91 H 18 117/59 L 100 04/04/18 12:00 04/04/18 12:00 04/04/18 12:00 04/04/18 12:00 04/04/18 12:00 Intake and Output: 04/04/18 04/04/18 06:59 18:59 Intake Total 1500 Output Total 1200 Balance 300 - Medications Medications: Current Medications Ascorbic Acid (Vitamin C 500 Mg Tab) 500 mg PO Q12 [facility] Last Admin: 04/04/18 11:38 Dose: 500 mg Fludrocortisone Acetate (Florinef) 0.1 mg PO DAILY [facility] Last Admin: 04/04/18 11:38 Dose: 0.1 mg Hydrocortisone Sodium Succinate (Solu-Cortef) 100 mg IV Q8H [facility] Last Admin: 04/04/18 10:45 Dose: 100 mg Potassium Chloride 40 meq/ (Dextrose) 1,020 mls @ 60 mls/hr IV .Q17H [facility] Last Admin: 04/03/18 21:20 Dose: Not Given Midodrine (Proamatine) 2.5 mg PO TID [facility] Last Admin: 04/04/18 10:30 Dose: 2.5 mg Multivitamins/Vitamin C (Multi-Delyn Liquid) 5 ml PO DAILY [facility] Last Admin: 04/04/18 11:41 Dose: 5 ml Pantoprazole Sodium (Protonix Susp) 40 mg PO 0600 [facility] Last Admin: 04/04/18 06:07 Dose: 40 mg Potassium Phos/Sodium Phos (Neutra-Phos) 1 pkt PO TID [facility] Last Admin: 04/04/18 10:45 Dose: 1 pkt Zinc Sulfate (Zinc Sulfate 220 Mg Cap) 220 mg PO DAILY [facility] Last Admin: 04/04/18 11:38 Dose: 220 mg - Labs Labs: 04/03/18 05:18 04/03/18 05:21 PT 16.0 SECONDS (9.7-12.2) H 03/22/18 16:02 INR 1.5 03/22/18 16:02 APTT 31 SECONDS (21-34) 03/22/18 16:02 - Constitutional Appears: Cachectic, Chronically Ill - Head Exam Head Exam: ATRAUMATIC, NORMOCEPHALIC - Eye Exam Eye Exam: EOMI, Normal appearance - ENT Exam ENT Exam: Mucous Membranes Moist - Neck Exam Additional comments: TRACH - Respiratory Exam Respiratory Exam: Rhonchi. absent: Wheezes, Respiratory Distress - Cardiovascular Exam Cardiovascular Exam: RRR, +S1, +S2 - GI/Abdominal Exam GI & Abdominal Exam: Soft Additional comments: PEG - Rectal Exam Rectal Exam: Deferred - Extremities Exam Extremities Exam: Pedal Edema - Neurological Exam Neurological Exam: Awake. absent: Oriented x3 - Skin Skin Exam: absent: Rash Assessment and Plan (1) Septic shock Status: Acute (2) Altered mental status Status: Acute (3) Pneumonia Status: Acute (4) Respiratory failure requiring intubation Status: Acute (5) COPD exacerbation Status: Acute (6) Cachexia Status: Acute (7) Cholelithiases Status: Acute (8) Alzheimer disease Status: Chronic - Assessment and Plan (Free Text) Assessment: ON MIDODRINE. CONT AC SUPPORT, PULM TOILET., WEANING TRIALS TOLERATED. MONITOR O2 SAT. CXR REVIEWED. AFEBRILE OFF AB. CONT FEEDINGS, SUPP K. PROG POOR. PENDING TRANSFER TO [facility]. DISCUSSED WITH STAFF AT LENGTH. TIME SPENT 45 MIN.
--- NOTE | 2018-04-04 14:38 | CP.PCM.PN ---
Subjective - Date & Time of Evaluation Date of Evaluation: 04/04/18 Time of Evaluation: 14:38 - Subjective Subjective: Patient is currently intubated through the tracheostomy on a respirator alert awake this morning by eye movements Vital signs are stable afebrile Physical findings remains same with mild inspiratory expiratory wheeze and decreased air entry Potassium is 3.6 Continue vent management Awaiting transfer to [facility] Objective - Vital Signs/Intake and Output Vital Signs (last 24 hours): Temp Pulse Resp BP Pulse Ox 98 F 91 H 18 117/59 L 100 04/04/18 12:00 04/04/18 12:00 04/04/18 12:00 04/04/18 12:00 04/04/18 12:00 Intake and Output: 04/04/18 04/04/18 11:59 23:59 Intake Total 2280 Output Total 1880 Balance 400 - Medications Medications: Current Medications Ascorbic Acid (Vitamin C 500 Mg Tab) 500 mg PO Q12 [facility] Last Admin: 04/04/18 11:38 Dose: 500 mg Fludrocortisone Acetate (Florinef) 0.1 mg PO DAILY [facility] Last Admin: 04/04/18 11:38 Dose: 0.1 mg Hydrocortisone Sodium Succinate (Solu-Cortef) 100 mg IV Q8H [facility] Last Admin: 04/04/18 10:45 Dose: 100 mg Potassium Chloride 40 meq/ (Dextrose) 1,020 mls @ 60 mls/hr IV .Q17H [facility] Last Admin: 04/03/18 21:20 Dose: Not Given Midodrine (Proamatine) 2.5 mg PO TID [facility] Last Admin: 04/04/18 10:30 Dose: 2.5 mg Multivitamins/Vitamin C (Multi-Delyn Liquid) 5 ml PO DAILY [facility] Last Admin: 04/04/18 11:41 Dose: 5 ml Pantoprazole Sodium (Protonix Susp) 40 mg PO 0600 [facility] Last Admin: 04/04/18 06:07 Dose: 40 mg Potassium Phos/Sodium Phos (Neutra-Phos) 1 pkt PO TID [facility] Last Admin: 04/04/18 10:45 Dose: 1 pkt Zinc Sulfate (Zinc Sulfate 220 Mg Cap) 220 mg PO DAILY [facility] Last Admin: 04/04/18 11:38 Dose: 220 mg - Labs Labs: 04/03/18 05:18 04/03/18 05:21 PT 16.0 SECONDS (9.7-12.2) H 03/22/18 16:02 INR 1.5 03/22/18 16:02 APTT 31 SECONDS (21-34) 03/22/18 16:02
--- NOTE | 2018-04-04 20:18 | CP.PCM.PN ---
Subjective - Date & Time of Evaluation Date of Evaluation: 04/04/18 Time of Evaluation: 20:18 - Subjective Subjective: afebrile comfortable. awake. +ve tracheostomy. ROS; NA Objective - Vital Signs/Intake and Output Vital Signs (last 24 hours): Temp Pulse Resp BP Pulse Ox 98.1 F 98 H 24 108/51 L 100 04/04/18 20:00 04/04/18 20:00 04/04/18 20:00 04/04/18 20:00 04/04/18 20:00 Intake and Output: 04/04/18 04/05/18 18:59 06:59 Intake Total 780 Output Total 680 Balance 100 - Medications Medications: Current Medications Ascorbic Acid (Vitamin C 500 Mg Tab) 500 mg PO Q12 [facility] Last Admin: 04/04/18 11:38 Dose: 500 mg Fludrocortisone Acetate (Florinef) 0.1 mg PO DAILY [facility] Last Admin: 04/04/18 11:38 Dose: 0.1 mg Hydrocortisone Sodium Succinate (Solu-Cortef) 100 mg IV Q8H [facility] Last Admin: 04/04/18 18:35 Dose: 100 mg Potassium Chloride 40 meq/ (Dextrose) 1,020 mls @ 60 mls/hr IV .Q17H [facility] Last Admin: 04/04/18 14:15 Dose: Not Given Midodrine (Proamatine) 2.5 mg PO TID [facility] Last Admin: 04/04/18 18:58 Dose: 2.5 mg Multivitamins/Vitamin C (Multi-Delyn Liquid) 5 ml PO DAILY [facility] Last Admin: 04/04/18 11:41 Dose: 5 ml Pantoprazole Sodium (Protonix Susp) 40 mg PO 0600 [facility] Last Admin: 04/04/18 06:07 Dose: 40 mg Potassium Phos/Sodium Phos (Neutra-Phos) 1 pkt PO TID [facility] Last Admin: 04/04/18 18:58 Dose: 1 pkt Zinc Sulfate (Zinc Sulfate 220 Mg Cap) 220 mg PO DAILY [facility] Last Admin: 04/04/18 11:38 Dose: 220 mg - Labs Labs: 04/03/18 05:18 04/03/18 05:21 PT 16.0 SECONDS (9.7-12.2) H 03/22/18 16:02 INR 1.5 03/22/18 16:02 APTT 31 SECONDS (21-34) 03/22/18 16:02 - Constitutional Appears: No Acute Distress, Cachectic, Chronically Ill - Head Exam Head Exam: NORMAL INSPECTION - Eye Exam Eye Exam: EOMI, PERRL - ENT Exam ENT Exam: Normal Oropharynx - Neck Exam Neck Exam: Normal Inspection - Respiratory Exam Respiratory Exam: Decreased Breath Sounds, NORMAL BREATHING PATTERN - Cardiovascular Exam Cardiovascular Exam: REGULAR RHYTHM, +S1, +S2 - GI/Abdominal Exam GI & Abdominal Exam: Soft, Normal Bowel Sounds (+VE PEG) - Extremities Exam Extremities Exam: Normal Capillary Refill. absent: Calf Tenderness, Pedal Edema - Neurological Exam Neurological Exam: Awake (LT HEMIPERESIS) - Psychiatric Exam Psychiatric exam: Flat Affect - Skin Skin Exam: Normal Color, Warm Assessment and Plan (1) Respiratory failure requiring intubation Status: Acute (2) Sepsis associated hypotension Status: Acute (3) Altered mental status Status: Acute (4) Pneumonia Status: Acute (5) Abdominal pain Status: Acute (6) Cholelithiases Status: Acute - Assessment and Plan (Free Text) Plan: PLAN; OFF ABX . PULMONARY TOILET
[2018-04-05] MEDS: Pantoprazole 40 mg Susp UD PO SCH (06:00)
--- NOTE | 2018-04-05 09:15 | CP.PCM.PN ---
Subjective - Date & Time of Evaluation Date of Evaluation: 04/05/18 Time of Evaluation: 09:12 - Subjective Subjective: PT ON VENT VIA TRACH. ROS; UNOBTAINABLE. Objective - Vital Signs/Intake and Output Vital Signs (last 24 hours): Temp Pulse Resp BP Pulse Ox 98.6 F 99 H 24 109/60 100 04/05/18 04:00 04/05/18 04:00 04/05/18 04:00 04/05/18 04:00 04/05/18 04:00 Intake and Output: 04/05/18 04/05/18 06:59 18:59 Intake Total 640 Output Total 500 Balance 140 - Medications Medications: Current Medications Ascorbic Acid (Vitamin C 500 Mg Tab) 500 mg PO Q12 [facility] Last Admin: 04/04/18 22:00 Dose: 500 mg Fludrocortisone Acetate (Florinef) 0.1 mg PO DAILY [facility] Last Admin: 04/04/18 11:38 Dose: 0.1 mg Hydrocortisone Sodium Succinate (Solu-Cortef) 100 mg IV Q8H [facility] Last Admin: 04/05/18 02:29 Dose: 100 mg Potassium Chloride 40 meq/ (Dextrose) 1,020 mls @ 60 mls/hr IV .Q17H [facility] Last Admin: 04/05/18 07:15 Dose: Not Given Midodrine (Proamatine) 2.5 mg PO TID [facility] Last Admin: 04/04/18 18:58 Dose: 2.5 mg Multivitamins/Vitamin C (Multi-Delyn Liquid) 5 ml PO DAILY [facility] Last Admin: 04/04/18 11:41 Dose: 5 ml Pantoprazole Sodium (Protonix Susp) 40 mg PO 0600 [facility] Last Admin: 04/05/18 06:00 Dose: 40 mg Potassium Phos/Sodium Phos (Neutra-Phos) 1 pkt PO TID [facility] Last Admin: 04/04/18 18:58 Dose: 1 pkt Zinc Sulfate (Zinc Sulfate 220 Mg Cap) 220 mg PO DAILY [facility] Last Admin: 04/04/18 11:38 Dose: 220 mg - Labs Labs: 04/03/18 05:18 04/03/18 05:21 PT 16.0 SECONDS (9.7-12.2) H 03/22/18 16:02 INR 1.5 03/22/18 16:02 APTT 31 SECONDS (21-34) 03/22/18 16:02 - Constitutional Appears: Cachectic, Chronically Ill - Head Exam Head Exam: ATRAUMATIC, NORMOCEPHALIC - Eye Exam Eye Exam: EOMI, Normal appearance - ENT Exam ENT Exam: Mucous Membranes Moist - Neck Exam Additional comments: TRACH - Respiratory Exam Respiratory Exam: Rhonchi. absent: Accessory Muscle Use, Respiratory Distress - Cardiovascular Exam Cardiovascular Exam: RRR, +S1, +S2 - GI/Abdominal Exam GI & Abdominal Exam: Soft Additional comments: PEG - Rectal Exam Rectal Exam: Deferred - Extremities Exam Extremities Exam: Pedal Edema - Neurological Exam Neurological Exam: Awake. absent: Oriented x3 - Skin Skin Exam: absent: Rash Assessment and Plan (1) Septic shock Status: Acute (2) Altered mental status Status: Acute (3) Pneumonia Status: Acute (4) Respiratory failure requiring intubation Status: Acute (5) COPD exacerbation Status: Acute (6) Cachexia Status: Acute (7) Cholelithiases Status: Acute (8) Alzheimer disease Status: Chronic - Assessment and Plan (Free Text) Assessment: ON MIDODRINE. AFEBRILE OFF AB. CONT AC SUPPORT, . PULM TOILET., MONITOR O2 SAT. NOT TOLERATING WEANING. CXR REVIEWED. CONT PEG FEEDINGS., [facility]TES. [facility]. PENDING TRANSFER TO [facility]. DISCUSSED WITH STAFF AT LENGTH. TIME SPENT 50MIN.
[2018-04-05] MEDS: Multiple Vitamins Oral Solution PO SCH (09:59)
[2018-04-05] MEDS: Potassium & Sodium Phosphate PO SCH ×3 (10:00→17:05)
--- NOTE | 2018-04-05 14:38 | CP.PCM.PN ---
Subjective - Date & Time of Evaluation Date of Evaluation: 04/05/18 Time of Evaluation: 14:38 - Subjective Subjective: Patient is currently intubated through the tracheostomy on a respirator alert awake this morning by eye movements Vital signs are stable afebrile Physical findings remains same with mild inspiratory expiratory wheeze and decreased air entry Potassium is 3.6 Continue vent management Awaiting transfer to AC Objective - Vital Signs/Intake and Output Vital Signs (last 24 hours): Temp Pulse Resp BP Pulse Ox 98.0 F 78 20 112/57 L 100 04/05/18 12:00 04/05/18 12:00 04/05/18 12:00 04/05/18 12:00 04/05/18 12:00 Intake and Output: 04/05/18 04/05/18 11:59 23:59 Intake Total 770 550 Output Total 800 900 Balance -30 -350 - Medications Medications: Current Medications Ascorbic Acid (Vitamin C 500 Mg Tab) 500 mg PO Q12 [facility] Last Admin: 04/05/18 10:00 Dose: 500 mg Fludrocortisone Acetate (Florinef) 0.1 mg PO DAILY [facility] Last Admin: 04/05/18 10:00 Dose: 0.1 mg Hydrocortisone Sodium Succinate (Solu-Cortef) 100 mg IV Q8H [facility] Last Admin: 04/05/18 09:59 Dose: 100 mg Potassium Chloride 40 meq/ (Dextrose) 1,020 mls @ 60 mls/hr IV .Q17H [facility] Last Admin: 04/05/18 07:15 Dose: Not Given Midodrine (Proamatine) 2.5 mg PO TID [facility] Last Admin: 04/05/18 14:19 Dose: 2.5 mg Multivitamins/Vitamin C (Multi-Delyn Liquid) 5 ml PO DAILY [facility] Last Admin: 04/05/18 09:59 Dose: 5 ml Pantoprazole Sodium (Protonix Susp) 40 mg PO 0600 [facility] Last Admin: 04/05/18 06:00 Dose: 40 mg Potassium Phos/Sodium Phos (Neutra-Phos) 1 pkt PO TID [facility] Last Admin: 04/05/18 14:19 Dose: 1 pkt Zinc Sulfate (Zinc Sulfate 220 Mg Cap) 220 mg PO DAILY [facility] Last Admin: 04/05/18 09:59 Dose: 220 mg - Labs Labs: 04/03/18 05:18 04/03/18 05:21 PT 16.0 SECONDS (9.7-12.2) H 03/22/18 16:02 INR 1.5 03/22/18 16:02 APTT 31 SECONDS (21-34) 03/22/18 16:02
--- NOTE | 2018-04-05 22:19 | CP.PCM.PN ---
Subjective - Date & Time of Evaluation Date of Evaluation: 04/05/18 Time of Evaluation: 22:19 - Subjective Subjective: AFEBRILE, NO ACUTE EVENTS OVERNIGHT . PT AWAKE, COMFORTABLE, +VE TRACH +VE PEG. Objective - Vital Signs/Intake and Output Vital Signs (last 24 hours): Temp Pulse Resp BP Pulse Ox 98.2 F 72 17 112/65 100 04/05/18 16:00 04/05/18 16:00 04/05/18 16:00 04/05/18 16:00 04/05/18 16:00 Intake and Output: 04/05/18 04/06/18 18:59 06:59 Intake Total 1180 Output Total 1400 Balance -220 - Medications Medications: Current Medications Ascorbic Acid (Vitamin C 500 Mg Tab) 500 mg PO Q12 [facility] Last Admin: 04/05/18 21:39 Dose: 500 mg Fludrocortisone Acetate (Florinef) 0.1 mg PO DAILY [facility] Last Admin: 04/05/18 10:00 Dose: 0.1 mg Hydrocortisone Sodium Succinate (Solu-Cortef) 100 mg IV Q8H [facility] Last Admin: 04/05/18 17:45 Dose: 100 mg Midodrine (Proamatine) 2.5 mg PO TID [facility] Last Admin: 04/05/18 17:05 Dose: 2.5 mg Multivitamins/Vitamin C (Multi-Delyn Liquid) 5 ml PO DAILY [facility] Last Admin: 04/05/18 09:59 Dose: 5 ml Pantoprazole Sodium (Protonix Susp) 40 mg PO 0600 [facility] Last Admin: 04/05/18 06:00 Dose: 40 mg Potassium Phos/Sodium Phos (Neutra-Phos) 1 pkt PO TID [facility] Last Admin: 04/05/18 17:05 Dose: 1 pkt Zinc Sulfate (Zinc Sulfate 220 Mg Cap) 220 mg PO DAILY [facility] Last Admin: 04/05/18 09:59 Dose: 220 mg - Labs Labs: 04/03/18 05:18 04/03/18 05:21 PT 16.0 SECONDS (9.7-12.2) H 03/22/18 16:02 INR 1.5 03/22/18 16:02 APTT 31 SECONDS (21-34) 03/22/18 16:02 - Constitutional Appears: No Acute Distress, Cachectic, Chronically Ill - Head Exam Head Exam: NORMAL INSPECTION - Eye Exam Eye Exam: EOMI, Normal appearance, PERRL - ENT Exam ENT Exam: Normal Oropharynx Additional comments: +VE TRACH - Neck Exam Neck Exam: Normal Inspection - Respiratory Exam Respiratory Exam: Wheezes (MILD WHEEZE.), NORMAL BREATHING PATTERN - Cardiovascular Exam Cardiovascular Exam: REGULAR RHYTHM, +S1, +S2 - GI/Abdominal Exam GI & Abdominal Exam: Soft, Normal Bowel Sounds (+VE ON PEG FEEDINGS.) - Extremities Exam Extremities Exam: absent: Calf Tenderness, Pedal Edema - Neurological Exam Neurological Exam: Alert, Awake, CN II-XII Intact Neuro motor strength exam: Right Upper Extremity: 2/1 (WEAKNESS), Right Lower Extremity: 2/1 (WEAKNESS) - Psychiatric Exam Psychiatric exam: Normal Affect - Skin Skin Exam: Normal Color, Warm Assessment and Plan (1) Respiratory failure requiring intubation Status: Acute (2) Sepsis associated hypotension Status: Acute (3) Altered mental status Status: Acute (4) Pneumonia Status: Acute (5) Abdominal pain Status: Acute (6) Cholelithiases Status: Acute - Assessment and Plan (Free Text) Plan: CONTINUE TO OBSERVE OFF ABX . PULMONARY TOILET . PER PMD /PULMONARY.
[2018-04-06 06:27] LABS: BASO % 0.2 % (0.0-2.0); EOS % 0.1 % (0.0-4.0); HEMOGLOBIN 9.4 g/dL (12.0-18.0); LYMPH # 0.5 K/uL (1.0-4.3); LYMPH % 9.8 % (20.0-40.0); MEAN CELL VOLUME 91.2 fL (80.0-94.0); MEAN CORPUSCULAR HEMOGLOBIN 29.7 pg (27.0-31.0); MEAN CORPUSCULAR HGB CONC 32.6 g/dL (33.0-37.0); MEAN PLATELET VOLUME 8.6 fL (7.2-11.7); MONO # 0.2 K/uL (0.0-0.8); MONO % 3.5 % (0.0-10.0); NEUT # 4.2 K/uL (1.8-7.0); NEUT % 86.4 % (50.0-75.0); NRBC % 0.1 % (0.0-2.0); PLATELET COUNT 227 K/uL (130-400); RBC 3.17 Mil/uL (4.40-5.90); RED CELL DISTRIBUTION WIDTH 18.4 % (11.5-14.5); WHITE BLOOD COUNT 4.9 K/uL (4.8-10.8)
[2018-04-06] MEDS: Pantoprazole 40 mg Susp UD PO SCH (06:50)
[2018-04-06 06:53] LABS: ALB/GLOB RATIO 0.9 (1.0-2.1); ALBUMIN 2.7 g/dL (3.5-5.0); ALT/SGPT 41 U/L (21-72); AST/SGOT 55 U/L (17-59); BLOOD UREA NITROGEN 15 mg/dL (9-20); CALCIUM 7.5 mg/dl (8.6-10.4); GFR NON-AFRICAN AMERICAN > 60
[2018-04-06] MEDS: Potassium & Sodium Phosphate PO SCH (09:11)
[2018-04-06] MEDS: Multiple Vitamins Oral Solution PO SCH (09:12)
[2018-04-06 09:49] LABS: BANDS 10 % (0-2); LYMPHOCYTE 14 % (20-40); METAMYELOCYTE 1 % (0-0); MONOCYTE 6 % (0-10); NEUTROPHIL 69 % (50-75); PLATELET ESTIMATE NORMAL (NORMAL); TOTAL CELLS COUNTED 100
[2018-04-06 09:50] LABS: ANISOCYTOSIS MODERATE; BURR CELLS SLIGHT; HYPOCHROMIC SLIGHT; LARGE PLATELETS PRESENT; OVALOCYTES SLIGHT; POIKILOCYTOSIS SLIGHT; POLYCHROMIC SLIGHT; SCHISTOCYTES SLIGHT; TOXIC GRANULATION PRESENT
[2018-04-06] MEDS: Potassium Chloride 20 mEq/15 ml LIQ UD GT SCH ×2 (10:46→17:41)
--- NOTE | 2018-04-06 12:43 | CP.PCM.PN ---
Subjective - Date & Time of Evaluation Date of Evaluation: 04/06/18 Time of Evaluation: 12:42 - Subjective Subjective: PERISTENT HYPOKALEMIA ON VENT VIA TRACHEOSTOMY PO AND IV KCL WILL CONFER WITH NEPHROLOGY Objective - Vital Signs/Intake and Output Vital Signs (last 24 hours): Temp Pulse Resp BP Pulse Ox 98.2 F 90 20 114/63 97 04/06/18 12:00 04/06/18 12:00 04/06/18 12:00 04/06/18 12:00 04/06/18 12:00 Intake and Output: 04/06/18 04/06/18 11:59 23:59 Intake Total 1230 400 Output Total 1520 Balance -290 400 - Medications Medications: Current Medications Ascorbic Acid (Vitamin C 500 Mg Tab) 500 mg PO Q12 [facility] Last Admin: 04/06/18 09:11 Dose: 500 mg Fludrocortisone Acetate (Florinef) 0.1 mg PO DAILY [facility] Last Admin: 04/06/18 09:12 Dose: 0.1 mg Hydrocortisone Sodium Succinate (Solu-Cortef) 100 mg IV Q8H [facility] Last Admin: 04/06/18 09:31 Dose: 100 mg Potassium Chloride 40 meq/ (Dextrose) 1,020 mls @ 60 mls/hr IV .Q17H [facility] Midodrine (Proamatine) 2.5 mg PO TID [facility] Last Admin: 04/06/18 09:12 Dose: 2.5 mg Multivitamins/Vitamin C (Multi-Delyn Liquid) 5 ml PO DAILY [facility] Last Admin: 04/06/18 09:12 Dose: 5 ml Pantoprazole Sodium (Protonix Susp) 40 mg PO 0600 [facility] Last Admin: 04/06/18 06:50 Dose: 40 mg Potassium Chloride (Potassium Chloride Oral Soln) 20 meq GT Q8H [facility] Last Admin: 04/06/18 10:46 Dose: 20 meq Potassium Phos/Sodium Phos (Neutra-Phos) 1 pkt GT TID [facility] Zinc Sulfate (Zinc Sulfate 220 Mg Cap) 220 mg PO DAILY [facility] Last Admin: 04/06/18 09:12 Dose: 220 mg - Labs Labs: 04/06/18 06:18 04/06/18 06:18 PT 16.0 SECONDS (9.7-12.2) H 03/22/18 16:02 INR 1.5 03/22/18 16:02 APTT 31 SECONDS (21-34) 03/22/18 16:02
--- NOTE | 2018-04-06 12:50 | CP.PCM.PN ---
Subjective - Date & Time of Evaluation Date of Evaluation: 04/06/18 Time of Evaluation: 12:47 - Subjective Subjective: PT ON VENT VIA TRACH. ROS.; UNOBTAINABLE. Objective - Vital Signs/Intake and Output Vital Signs (last 24 hours): Temp Pulse Resp BP Pulse Ox 98.2 F 90 20 114/63 97 04/06/18 12:00 04/06/18 12:00 04/06/18 12:00 04/06/18 12:00 04/06/18 12:00 Intake and Output: 04/06/18 04/06/18 06:59 18:59 Intake Total 1200 830 Output Total 1220 300 Balance -20 530 - Medications Medications: Current Medications Ascorbic Acid (Vitamin C 500 Mg Tab) 500 mg PO Q12 [facility] Last Admin: 04/06/18 09:11 Dose: 500 mg Fludrocortisone Acetate (Florinef) 0.1 mg PO DAILY [facility] Last Admin: 04/06/18 09:12 Dose: 0.1 mg Hydrocortisone Sodium Succinate (Solu-Cortef) 100 mg IV Q8H [facility] Last Admin: 04/06/18 09:31 Dose: 100 mg Potassium Chloride 40 meq/ (Dextrose) 1,020 mls @ 60 mls/hr IV .Q17H [facility] Midodrine (Proamatine) 2.5 mg PO TID [facility] Last Admin: 04/06/18 09:12 Dose: 2.5 mg Multivitamins/Vitamin C (Multi-Delyn Liquid) 5 ml PO DAILY [facility] Last Admin: 04/06/18 09:12 Dose: 5 ml Pantoprazole Sodium (Protonix Susp) 40 mg PO 0600 [facility] Last Admin: 04/06/18 06:50 Dose: 40 mg Potassium Chloride (Potassium Chloride Oral Soln) 20 meq GT Q8H [facility] Last Admin: 04/06/18 10:46 Dose: 20 meq Potassium Phos/Sodium Phos (Neutra-Phos) 1 pkt GT TID [facility] Zinc Sulfate (Zinc Sulfate 220 Mg Cap) 220 mg PO DAILY [facility] Last Admin: 04/06/18 09:12 Dose: 220 mg - Labs Labs: 04/06/18 06:18 04/06/18 06:18 PT 16.0 SECONDS (9.7-12.2) H 03/22/18 16:02 INR 1.5 03/22/18 16:02 APTT 31 SECONDS (21-34) 03/22/18 16:02 - Constitutional Appears: Cachectic, Chronically Ill - Head Exam Head Exam: ATRAUMATIC, NORMOCEPHALIC - Eye Exam Eye Exam: EOMI, Normal appearance - ENT Exam ENT Exam: Mucous Membranes Moist - Neck Exam Additional comments: TRACH - Respiratory Exam Respiratory Exam: Rhonchi. absent: Accessory Muscle Use, Respiratory Distress - Cardiovascular Exam Cardiovascular Exam: RRR, +S1, +S2 - GI/Abdominal Exam GI & Abdominal Exam: Soft Additional comments: PEG - Rectal Exam Rectal Exam: Deferred - Extremities Exam Extremities Exam: Pedal Edema - Back Exam Back Exam: absent: rash noted - Neurological Exam Neurological Exam: Awake. absent: Oriented x3 - Skin Skin Exam: absent: Rash Assessment and Plan (1) Septic shock Status: Acute (2) Altered mental status Status: Acute (3) Pneumonia Status: Acute (4) Respiratory failure requiring intubation Status: Acute (5) COPD exacerbation Status: Acute (6) Cachexia Status: Acute (7) Cholelithiases Status: Acute (8) Alzheimer disease Status: Chronic - Assessment and Plan (Free Text) Assessment: RESP STATUS NO SIG CHANGE., CONT AC SUPPORT. NOT TOLERATING WEAN. CONT PULM TOILET., NEB BD., CXR REVIEWED. MONITOR O2 SAT. AFEBRILE OFF AB. ON MIDODRINE AND FLORINEF. CONT SUPP K. CONT FEEDINGS VIA TRACH. PROG POOR. DISCUSSED WITH STAFF., TIME SPENT 45 MIN.
[2018-04-06] MEDS: Potassium & Sodium Phosphate GT SCH ×2 (13:16→17:43)
--- NOTE | 2018-04-06 22:47 | CP.PCM.PN ---
Subjective - Date & Time of Evaluation Date of Evaluation: 04/06/18 Time of Evaluation: 22:47 - Subjective Subjective: AFEBRILE, ON VENTILATOR +VE TRACH +VE PEG FEEDINGS LABS REVIEWED; K 2.8 LOW Objective - Vital Signs/Intake and Output Vital Signs (last 24 hours): Temp Pulse Resp BP Pulse Ox 97.6 F 92 H 22 121/73 98 04/06/18 16:00 04/06/18 16:00 04/06/18 16:00 04/06/18 16:00 04/06/18 16:00 Intake and Output: 04/06/18 04/07/18 18:59 06:59 Intake Total 1230 Output Total 500 Balance 730 - Medications Medications: Current Medications Ascorbic Acid (Vitamin C 500 Mg Tab) 500 mg PO Q12 [facility] Last Admin: 04/06/18 22:06 Dose: 500 mg Fludrocortisone Acetate (Florinef) 0.1 mg PO DAILY [facility] Last Admin: 04/06/18 09:12 Dose: 0.1 mg Hydrocortisone Sodium Succinate (Solu-Cortef) 100 mg IV Q8H [facility] Last Admin: 04/06/18 17:42 Dose: 100 mg Potassium Chloride 40 meq/ (Dextrose) 1,020 mls @ 60 mls/hr IV .Q17H [facility] Last Admin: 04/06/18 11:00 Dose: 60 mls/hr Midodrine (Proamatine) 2.5 mg PO TID [facility] Last Admin: 04/06/18 17:42 Dose: 2.5 mg Multivitamins/Vitamin C (Multi-Delyn Liquid) 5 ml PO DAILY [facility] Last Admin: 04/06/18 09:12 Dose: 5 ml Pantoprazole Sodium (Protonix Susp) 40 mg PO 0600 [facility] Last Admin: 04/06/18 06:50 Dose: 40 mg Potassium Chloride (Potassium Chloride Oral Soln) 20 meq GT Q8H [facility] Last Admin: 04/06/18 17:41 Dose: 20 meq Potassium Phos/Sodium Phos (Neutra-Phos) 1 pkt GT TID [facility] Last Admin: 04/06/18 17:43 Dose: 1 pkt Zinc Sulfate (Zinc Sulfate 220 Mg Cap) 220 mg PO DAILY [facility] Last Admin: 04/06/18 09:12 Dose: 220 mg - Labs Labs: 04/06/18 06:18 04/06/18 06:18 PT 16.0 SECONDS (9.7-12.2) H 03/22/18 16:02 INR 1.5 03/22/18 16:02 APTT 31 SECONDS (21-34) 03/22/18 16:02 - Constitutional Appears: No Acute Distress, Cachectic, Chronically Ill - Head Exam Head Exam: NORMAL INSPECTION - Eye Exam Eye Exam: EOMI, PERRL - ENT Exam ENT Exam: Normal Oropharynx - Respiratory Exam Respiratory Exam: Decreased Breath Sounds, NORMAL BREATHING PATTERN - Cardiovascular Exam Cardiovascular Exam: REGULAR RHYTHM, +S1, +S2 - GI/Abdominal Exam GI & Abdominal Exam: Soft, Normal Bowel Sounds (+VE PEG.) - Extremities Exam Extremities Exam: Normal Capillary Refill. absent: Calf Tenderness, Pedal Edema - Neurological Exam Neurological Exam: Awake (RT SIDED HEMIPERESIS) - Psychiatric Exam Psychiatric exam: Flat Affect - Skin Skin Exam: Normal Color, Warm Assessment and Plan (1) Respiratory failure requiring intubation Status: Acute (2) Sepsis associated hypotension Status: Acute (3) Altered mental status Status: Acute (4) Pneumonia Status: Acute (5) Abdominal pain Status: Acute (6) Cholelithiases Status: Acute - Assessment and Plan (Free Text) Plan: K-SUPPLEMENT PER PMD. CONTINUE TO OBSERVE OFF ABX . PULMONARY TOILET . PER PMD /PULMONARY. AWAITING TRANSFER.
[2018-04-07] MEDS: Potassium Chloride 20 mEq/15 ml LIQ UD GT SCH ×3 (02:52→18:02)
[2018-04-07] MEDS: Pantoprazole 40 mg Susp UD PO SCH (06:01)
[2018-04-07 06:36] LABS: ALB/GLOB RATIO 0.9 (1.0-2.1); ALBUMIN 2.5 g/dL (3.5-5.0); ALT/SGPT 42 U/L (21-72); AST/SGOT 51 U/L (17-59); BLOOD UREA NITROGEN 15 mg/dL (9-20); CALCIUM 7.6 mg/dl (8.6-10.4); GFR NON-AFRICAN AMERICAN > 60
[2018-04-07] MEDS: Potassium & Sodium Phosphate GT SCH ×3 (10:08→18:03)
[2018-04-07] MEDS: Multiple Vitamins Oral Solution PO SCH (10:10)
--- NOTE | 2018-04-07 10:50 | CP.PCM.PN ---
Subjective - Date & Time of Evaluation Date of Evaluation: 04/07/18 Time of Evaluation: 10:47 - Subjective Subjective: PT ON VENT VIA TRACH. ROS; UNOBTAINABLE Objective - Vital Signs/Intake and Output Vital Signs (last 24 hours): Temp Pulse Resp BP Pulse Ox 98.1 F 81 17 101/56 L 100 04/07/18 04:00 04/07/18 04:00 04/07/18 04:00 04/07/18 04:00 04/07/18 04:00 Intake and Output: 04/07/18 04/07/18 06:59 18:59 Intake Total 1200 Output Total 950 Balance 250 - Medications Medications: Current Medications Ascorbic Acid (Vitamin C 500 Mg Tab) 500 mg PO Q12 [facility] Last Admin: 04/07/18 10:09 Dose: 500 mg Fludrocortisone Acetate (Florinef) 0.1 mg PO DAILY [facility] Last Admin: 04/07/18 10:09 Dose: 0.1 mg Hydrocortisone Sodium Succinate (Solu-Cortef) 100 mg IV Q8H [facility] Last Admin: 04/07/18 10:08 Dose: 100 mg Potassium Chloride 40 meq/ (Dextrose) 1,020 mls @ 60 mls/hr IV .Q17H [facility] Last Admin: 04/07/18 06:02 Dose: 60 mls/hr Midodrine (Proamatine) 2.5 mg PO TID [facility] Last Admin: 04/07/18 10:08 Dose: 2.5 mg Multivitamins/Vitamin C (Multi-Delyn Liquid) 5 ml PO DAILY [facility] Last Admin: 04/07/18 10:10 Dose: 5 ml Pantoprazole Sodium (Protonix Susp) 40 mg PO 0600 [facility] Last Admin: 04/07/18 06:01 Dose: 40 mg Potassium Chloride (Potassium Chloride Oral Soln) 20 meq GT Q8H [facility] Last Admin: 04/07/18 10:08 Dose: 20 meq Potassium Phos/Sodium Phos (Neutra-Phos) 1 pkt GT TID [facility] Last Admin: 04/07/18 10:08 Dose: 1 pkt Zinc Sulfate (Zinc Sulfate 220 Mg Cap) 220 mg PO DAILY [facility] Last Admin: 04/07/18 10:09 Dose: 220 mg - Labs Labs: 04/06/18 06:18 04/07/18 06:06 PT 16.0 SECONDS (9.7-12.2) H 03/22/18 16:02 INR 1.5 03/22/18 16:02 APTT 31 SECONDS (21-34) 03/22/18 16:02 - Constitutional Appears: No Acute Distress, Cachectic, Chronically Ill - Head Exam Head Exam: ATRAUMATIC, NORMOCEPHALIC - Eye Exam Eye Exam: EOMI, Normal appearance - ENT Exam ENT Exam: Mucous Membranes Moist - Neck Exam Additional comments: TRACH - Respiratory Exam Respiratory Exam: Rhonchi. absent: Respiratory Distress - Cardiovascular Exam Cardiovascular Exam: RRR, +S1, +S2 - GI/Abdominal Exam GI & Abdominal Exam: Soft Additional comments: PEG - Rectal Exam Rectal Exam: Deferred - Extremities Exam Extremities Exam: Pedal Edema - Back Exam Back Exam: absent: rash noted - Neurological Exam Neurological Exam: Awake. absent: Oriented x3 - Skin Skin Exam: absent: Rash Assessment and Plan (1) Septic shock Status: Acute (2) Altered mental status Status: Acute (3) Pneumonia Status: Acute (4) Respiratory failure requiring intubation Status: Acute (5) COPD exacerbation Status: Acute (6) Cachexia Status: Acute (7) Cholelithiases Status: Acute (8) Alzheimer disease Status: Chronic - Assessment and Plan (Free Text) Assessment: RESP STATUS NO SIG CHANGE., REQUIRING AC SUPPORT, CONT PULM TOILET., NEB BD., MONITOR O2 SAT. WEANING TRIALS TOLERATED. CXR REVIEWED. ON MIDODRINE. ON FLORINEF., SUPP K. ON PEG FEEDINGS. AFEBRILE OFF AB. PROG POOR. PENDING TRANSFER TO [facility]. DISCUSSED WITH STAFF AT LENGTH. TIME SPENT 45 MIN.
--- NOTE | 2018-04-07 12:33 | CP.PCM.PN ---
Subjective - Date & Time of Evaluation Date of Evaluation: 04/07/18 Time of Evaluation: 12:32 - Subjective Subjective: Patient on vent through tracheostomy Vital signs are stable Physical examination is unchanged Potassium is now 3.6 as patient is receiving both IV and through PEG potassium supplement Awaiting transfer to [facility] Objective - Vital Signs/Intake and Output Vital Signs (last 24 hours): Temp Pulse Resp BP Pulse Ox 96.0 F L 80 18 101/60 100 04/07/18 08:00 04/07/18 08:00 04/07/18 08:00 04/07/18 08:00 04/07/18 08:00 Intake and Output: 04/07/18 04/07/18 11:59 23:59 Intake Total 1200 Output Total 650 Balance 550 - Medications Medications: Current Medications Ascorbic Acid (Vitamin C 500 Mg Tab) [address] [facility] Last Admin: 04/07/18 10:09 Dose: 500 mg Fludrocortisone Acetate (Florinef) 0.[address] [facility] Last Admin: 04/07/18 10:09 Dose: 0.1 mg Hydrocortisone Sodium Succinate (Solu-Cortef) 100 mg IV Q8H [facility] Last Admin: 04/07/18 10:08 Dose: 100 mg Potassium Chloride 40 meq/ (Dextrose) 1,020 mls @ 60 mls/hr IV .Q17H [facility] Last Admin: 04/07/18 06:02 Dose: 60 mls/hr Midodrine (Proamatine) 2.[address] [facility] Last Admin: 04/07/18 10:08 Dose: 2.5 mg Multivitamins/Vitamin C (Multi-Delyn Liquid) 5 ml PO DAILY [facility] Last Admin: 04/07/18 10:10 Dose: 5 ml Pantoprazole Sodium (Protonix Susp) 40 mg PO 0600 [facility] Last Admin: 04/07/18 06:01 Dose: 40 mg Potassium Chloride (Potassium Chloride Oral Soln) 20 meq GT Q8H [facility] Last Admin: 04/07/18 10:08 Dose: 20 meq Potassium Phos/Sodium Phos (Neutra-Phos) 1 pkt GT TID [facility] Last Admin: 04/07/18 10:08 Dose: 1 pkt Zinc Sulfate (Zinc Sulfate 220 Mg Cap) 220 mg PO DAILY [facility] Last Admin: 04/07/18 10:09 Dose: 220 mg - Labs Labs: 04/06/18 06:18 04/07/18 06:06 PT 16.0 SECONDS (9.7-12.2) H 03/22/18 16:02 INR 1.5 03/22/18 16:02 APTT 31 SECONDS (21-34) 03/22/18 16:02
[2018-04-07] MEDS ORDERED: HYDROmorphone 1 mg/ml ISec IVP ONE (19:30)
[2018-04-08] MEDS: Potassium Chloride 20 mEq/15 ml LIQ UD GT SCH ×3 (01:31→18:14)
[2018-04-08] MEDS ORDERED: HYDROmorphone 1 mg/ml ISec IVP STA (04:14)
[2018-04-08 06:16] LABS: LYMPH # 0.6 K/uL (1.0-4.3); LYMPH % 13.1 % (20.0-40.0); MEAN CELL VOLUME 89.8 fL (80.0-94.0); MEAN CORPUSCULAR HEMOGLOBIN 29.5 pg (27.0-31.0); MEAN CORPUSCULAR HGB CONC 32.8 g/dL (33.0-37.0); MEAN PLATELET VOLUME 8.4 fL (7.2-11.7); MONO # 0.2 K/uL (0.0-0.8); MONO % 4.4 % (0.0-10.0); NEUT # 3.7 K/uL (1.8-7.0); NEUT % 82.5 % (50.0-75.0); NRBC % 0.2 % (0.0-2.0); PLATELET COUNT 292 K/uL (130-400); RBC 3.04 Mil/uL (4.40-5.90); RED CELL DISTRIBUTION WIDTH 18.1 % (11.5-14.5); WHITE BLOOD COUNT 4.4 K/uL (4.8-10.8)
[2018-04-08] MEDS: Pantoprazole 40 mg Susp UD PO SCH (06:18)
[2018-04-08 06:48] LABS: ALB/GLOB RATIO 0.9 (1.0-2.1); ALBUMIN 2.6 g/dL (3.5-5.0); ALT/SGPT 38 U/L (21-72); AST/SGOT 55 U/L (17-59); BLOOD UREA NITROGEN 15 mg/dL (9-20); CALCIUM 7.7 mg/dl (8.6-10.4); GFR NON-AFRICAN AMERICAN > 60
[2018-04-08] MEDS ORDERED: Potassium Chloride 20 mEq/15 ml LIQ UD GT ONE (09:15)
[2018-04-08] MEDS: Potassium & Sodium Phosphate GT SCH ×3 (09:38→18:13)
[2018-04-08] MEDS: Multiple Vitamins Oral Solution PO SCH (09:42)
[2018-04-08 10:42] LABS: BANDS 16 % (0-2); LYMPHOCYTE 10 % (20-40); MONOCYTE 11 % (0-10); MYELOCYTE 1 % (0-0); NEUTROPHIL 61 % (50-75); PLATELET ESTIMATE NORMAL (NORMAL); REACTIVE LYMPHOCYTES 1 % (0-0); TOTAL CELLS COUNTED 100
[2018-04-08 10:43] LABS: ANISOCYTOSIS SLIGHT
--- NOTE | 2018-04-08 11:27 | CP.PCM.PN ---
Subjective - Date & Time of Evaluation Date of Evaluation: 04/08/18 Time of Evaluation: 11:24 - Subjective Subjective: PT ON VENT VIA TRACH. ROS; UNOBTAINABLE. Objective - Vital Signs/Intake and Output Vital Signs (last 24 hours): Temp Pulse Resp BP Pulse Ox 97.1 F L 90 28 H 127/73 98 04/08/18 08:00 04/08/18 08:41 04/08/18 08:00 04/08/18 08:00 04/08/18 08:00 Intake and Output: 04/08/18 04/08/18 06:59 18:59 Intake Total 1600 Output Total 1200 Balance 400 - Medications Medications: Current Medications Ascorbic Acid (Vitamin C 500 Mg Tab) 500 mg PO Q12 [facility] Last Admin: 04/08/18 09:39 Dose: 500 mg Hydrocortisone Sodium Succinate (Solu-Cortef) 100 mg IV Q8H [facility] Last Admin: 04/08/18 09:37 Dose: 100 mg Potassium Chloride 40 meq/ (Dextrose) 1,020 mls @ 60 mls/hr IV .Q17H [facility] Last Admin: 04/07/18 23:52 Dose: 60 mls/hr Midodrine (Proamatine) 2.5 mg PO TID [facility] Last Admin: 04/08/18 09:37 Dose: 2.5 mg Multivitamins/Vitamin C (Multi-Delyn Liquid) 5 ml PO DAILY [facility] Last Admin: 04/08/18 09:42 Dose: 5 ml Pantoprazole Sodium (Protonix Susp) 40 mg PO 0600 [facility] Last Admin: 04/08/18 06:18 Dose: 40 mg Potassium Chloride (Potassium Chloride Oral Soln) 20 meq GT Q8H [facility] Last Admin: 04/08/18 09:38 Dose: 20 meq Potassium Phos/Sodium Phos (Neutra-Phos) 1 pkt GT TID [facility] Last Admin: 04/08/18 09:38 Dose: 1 pkt Zinc Sulfate (Zinc Sulfate 220 Mg Cap) 220 mg PO DAILY [facility] Last Admin: 04/08/18 09:37 Dose: 220 mg - Labs Labs: 04/08/18 06:07 04/08/18 06:07 PT 16.0 SECONDS (9.7-12.2) H 03/22/18 16:02 INR 1.5 03/22/18 16:02 APTT 31 SECONDS (21-34) 03/22/18 16:02 - Constitutional Appears: Cachectic, Chronically Ill - Head Exam Head Exam: ATRAUMATIC, NORMOCEPHALIC - Eye Exam Eye Exam: EOMI, Normal appearance - ENT Exam ENT Exam: Mucous Membranes Moist - Neck Exam Additional comments: TRACH - Respiratory Exam Respiratory Exam: Rhonchi. absent: Accessory Muscle Use, Respiratory Distress - Cardiovascular Exam Cardiovascular Exam: RRR, +S1, +S2 - GI/Abdominal Exam GI & Abdominal Exam: Soft Additional comments: PEG - Rectal Exam Rectal Exam: Deferred - Extremities Exam Extremities Exam: absent: Pedal Edema - Back Exam Back Exam: absent: rash noted - Neurological Exam Neurological Exam: Awake. absent: Oriented x3 - Skin Skin Exam: absent: Rash Assessment and Plan (1) Septic shock Status: Acute (2) Altered mental status Status: Acute (3) Pneumonia Status: Acute (4) Respiratory failure requiring intubation Status: Acute (5) COPD exacerbation Status: Acute (6) Cachexia Status: Acute (7) Cholelithiases Status: Acute (8) Alzheimer disease Status: Chronic - Assessment and Plan (Free Text) Assessment: RESP STATUS NO SIG CHANGE. CONT AC SUPPORT WITH WEANING TRIALS . CONT PULM TOILET., NEB BD., MONITOR O2 SAT. CXR REVIEWED. AFEBRILE OFF AB. ON MIDODRINE. ON FLORINEF. K LEVEL BETTER. CONT FEEDINGS VIA PEG. PROG POOR. PENDING TRANSFER TO [facility]. DISCUSSD [facility] STAFF . TIME SPENT 45 MIN.
--- NOTE | 2018-04-08 11:54 | CP.PCM.PN ---
Subjective - Date & Time of Evaluation Date of Evaluation: 04/08/18 Time of Evaluation: 11:53 - Subjective Subjective: Patient on vent through tracheostomy Vital signs are stable Physical examination is unchanged Potassium is now 3.5 as patient is receiving both IV and through PEG potassium supplement Awaiting transfer to [facility] Objective - Vital Signs/Intake and Output Vital Signs (last 24 hours): Temp Pulse Resp BP Pulse Ox 97.1 F L 90 28 H 127/73 98 04/08/18 08:00 04/08/18 08:41 04/08/18 08:00 04/08/18 08:00 04/08/18 08:00 Intake and Output: 04/07/18 04/08/18 23:59 11:59 Intake Total 1300 1800 Output Total 1200 1400 Balance 100 400 - Medications Medications: Current Medications Ascorbic Acid (Vitamin C 500 Mg Tab) 500 mg PO Q12 ON LICENSE OF [facility] Last Admin: 04/08/18 09:39 Dose: 500 mg Hydrocortisone Sodium Succinate (Solu-Cortef) 100 mg IV Q8H ON LICENSE OF [facility] Last Admin: 04/08/18 09:37 Dose: 100 mg Potassium Chloride 40 meq/ (Dextrose) 1,020 mls @ 60 mls/hr IV .Q17H ON LICENSE OF [facility] Last Admin: 04/07/18 23:52 Dose: 60 mls/hr Midodrine (Proamatine) 2.5 mg PO TID ON LICENSE OF [facility] Last Admin: 04/08/18 09:37 Dose: 2.5 mg Multivitamins/Vitamin C (Multi-Delyn Liquid) 5 ml PO DAILY ON LICENSE OF [facility] Last Admin: 04/08/18 09:42 Dose: 5 ml Pantoprazole Sodium (Protonix Susp) 40 mg PO 0600 VELMA Last Admin: 04/08/18 06:18 Dose: 40 mg Potassium Chloride (Potassium Chloride Oral Soln) 20 meq GT Q8H ON LICENSE OF [facility] Last Admin: 04/08/18 09:38 Dose: 20 meq Potassium Phos/Sodium Phos (Neutra-Phos) 1 pkt GT TID ON LICENSE OF [facility] Last Admin: 04/08/18 09:38 Dose: 1 pkt Zinc Sulfate (Zinc Sulfate 220 Mg Cap) 220 mg PO DAILY ON LICENSE OF [facility] Last Admin: 04/08/18 09:37 Dose: 220 mg - Labs Labs: 04/08/18 06:07 04/08/18 06:07 PT 16.0 SECONDS (9.7-12.2) H 03/22/18 16:02 INR 1.5 03/22/18 16:02 APTT 31 SECONDS (21-34) 03/22/18 16:02
--- NOTE | 2018-04-08 14:03 | CP.PCM.PN ---
Subjective - Date & Time of Evaluation Date of Evaluation: 04/08/18 Time of Evaluation: 14:03 - Subjective Subjective: AFEBRILE, ON VENTILATOR +VE TRACH +VE PEG FEEDINGS LABS REVIEWED; K -ok +ve 16% bandemia notified by RN Objective - Vital Signs/Intake and Output Vital Signs (last 24 hours): Temp Pulse Resp BP Pulse Ox 97.1 F L 90 28 H 127/73 98 04/08/18 08:00 04/08/18 08:41 04/08/18 08:00 04/08/18 08:00 04/08/18 08:00 Intake and Output: 04/08/18 04/08/18 06:59 18:59 Intake Total 1600 600 Output Total 1200 200 Balance 400 400 - Medications Medications: Current Medications Ascorbic Acid (Vitamin C 500 Mg Tab) 500 mg PO Q12 [facility] Last Admin: 04/08/18 09:39 Dose: 500 mg Hydrocortisone Sodium Succinate (Solu-Cortef) 100 mg IV Q8H [facility] Last Admin: 04/08/18 09:37 Dose: 100 mg Potassium Chloride 40 meq/ (Dextrose) 1,020 mls @ 60 mls/hr IV .Q17H [facility] Last Admin: 04/07/18 23:52 Dose: 60 mls/hr Fluconazole (Diflucan Iv 100 Mg/50 Ml Ns) 50 mls @ 100 mls/hr IVPB Q24H [facility]; Protocol Meropenem 500 mg/ Sodium (Chloride) 100 mls @ 100 mls/hr IVPB Q12H [facility]; Protocol Midodrine (Proamatine) 2.5 mg PO TID [facility] Last Admin: 04/08/18 09:37 Dose: 2.5 mg Multivitamins/Vitamin C (Multi-Delyn Liquid) 5 ml PO DAILY [facility] Last Admin: 04/08/18 09:42 Dose: 5 ml Pantoprazole Sodium (Protonix Susp) 40 mg PO 0600 [facility] Last Admin: 04/08/18 06:18 Dose: 40 mg Potassium Chloride (Potassium Chloride Oral Soln) 20 meq GT Q8H [facility] Last Admin: 04/08/18 09:38 Dose: 20 meq Potassium Phos/Sodium Phos (Neutra-Phos) 1 pkt GT TID [facility] Last Admin: 04/08/18 09:38 Dose: 1 pkt Zinc Sulfate (Zinc Sulfate 220 Mg Cap) 220 mg PO DAILY [facility] Last Admin: 04/08/18 09:37 Dose: 220 mg - Labs Labs: 04/08/18 06:07 04/08/18 06:07 PT 16.0 SECONDS (9.7-12.2) H 03/22/18 16:02 INR 1.5 03/22/18 16:02 APTT 31 SECONDS (21-34) 03/22/18 16:02 - Constitutional Appears: No Acute Distress, Cachectic, Chronically Ill - Head Exam Head Exam: NORMAL INSPECTION - Eye Exam Eye Exam: EOMI, PERRL - ENT Exam ENT Exam: Normal Oropharynx Additional comments: +VE TRACH. - Neck Exam Neck Exam: Normal Inspection - Respiratory Exam Respiratory Exam: Decreased Breath Sounds, Rhonchi (BASILAR RHOCHI/RALES) - Cardiovascular Exam Cardiovascular Exam: Tachycardia, REGULAR RHYTHM, +S1, +S2 - GI/Abdominal Exam GI & Abdominal Exam: Soft, Normal Bowel Sounds (+VE PEG) - Extremities Exam Extremities Exam: absent: Calf Tenderness, Pedal Edema - Neurological Exam Neurological Exam: Awake (RT. HEMIPERESIS) - Skin Skin Exam: Dry, Normal Color, Warm Assessment and Plan (1) Respiratory failure requiring intubation Status: Acute (2) Sepsis associated hypotension Status: Acute (3) Altered mental status Status: Acute (4) Pneumonia Status: Acute (5) Abdominal pain Status: Acute (6) Cholelithiases Status: Acute - Assessment and Plan (Free Text) Plan: PLAN SOURCE OF SEPSIS IS NOT CLEAR? /LUNG ? CATHETHER /LRBSI, VS UTI ? FUNGAL IQBAL CULTURE. SPUTUM CULTURE. UA/URINE CULTURE. START IV MERREM 500MG IVPB Q 12HRLY 04/08/18. ADD IV DIFLUCAN 100MG IVPB Q 24HRLY. 04/08/18. F/U CULTURES. CXR REPEAT.R/O VAP VS NOSOCOMIAL PNEUMONIA.
[2018-04-08] MEDS: SODIUM CHLORIDE IVPB SCH (14:55)
[2018-04-08] MEDS: FLUCONAZOLE 100 MG/50 ML IVPB SCH (14:55)
[2018-04-08] MEDS: Meropenem 500 MG in Sodium Chloride 0.9% 100 ML IVPB SCH (15:51)
[2018-04-09] MEDS: Potassium Chloride 20 mEq/15 ml LIQ UD GT SCH ×3 (02:00→17:44)
[2018-04-09] MEDS: Meropenem 500 MG in Sodium Chloride 0.9% 100 ML IVPB SCH ×2 (03:00→14:18)
[2018-04-09] MEDS: Pantoprazole 40 mg Susp UD PO SCH (05:57)
[2018-04-09 06:11] LABS: ALBUMIN 2.7 g/dL (3.5-5.0); ALT/SGPT 43 U/L (21-72); AST/SGOT 56 U/L (17-59); BLOOD UREA NITROGEN 15 mg/dL (9-20); CALCIUM 7.6 mg/dl (8.6-10.4); GFR NON-AFRICAN AMERICAN > 60
--- NOTE | 2018-04-09 08:31 | RAD ---
Date of service: 04/08/2018 HISTORY: R/O PNEUMONIA COMPARISON: Portable chest 03/28/2018. FINDINGS: LUNGS: Endotracheal tube and right PICC are unchanged in position. Increase patchy densities seen at the left base suspicious for interval increase in potential atelectasis or infiltrate. Underlying interstitial pulmonary disease again identified bilaterally, left greater than right lungs. PLEURA: Trace bilateral pleural effusions remain difficult to completely exclude. CARDIOVASCULAR: No aortic atherosclerotic calcification present. Normal cardiac size. No pulmonary vascular congestion. OSSEOUS STRUCTURES: No significant abnormalities. VISUALIZED UPPER ABDOMEN: Gas seen within multiple bowel loops in the upper abdomen with interposed bowel identified between the right hemidiaphragm and the liver. OTHER FINDINGS: Prior ORIF again noted bilateral proximal humeri. IMPRESSION: Increased airspace disease left base with chronic underlying interstitial pulmonary disease again noted bilaterally, left greater than right.
--- NOTE | 2018-04-09 09:48 | CP.PCM.PN ---
Subjective - Date & Time of Evaluation Date of Evaluation: 04/09/18 Time of Evaluation: 09:45 - Subjective Subjective: PT ON VENT VIA TRACH. OOB IN CHAIR., ROS; UNOBTAINABLE Objective - Vital Signs/Intake and Output Vital Signs (last 24 hours): Temp Pulse Resp BP Pulse Ox 98 F 86 18 104/63 100 04/09/18 04:00 04/09/18 04:00 04/09/18 04:00 04/09/18 04:00 04/09/18 04:00 Intake and Output: 04/09/18 04/09/18 06:59 18:59 Intake Total 1540 Output Total 650 Balance 890 - Medications Medications: Current Medications Ascorbic Acid (Vitamin C 500 Mg Tab) 500 mg PO Q12 [facility] Last Admin: 04/08/18 22:26 Dose: 500 mg Hydrocortisone Sodium Succinate (Solu-Cortef) 100 mg IV Q8H [facility] Last Admin: 04/09/18 02:30 Dose: 100 mg Potassium Chloride 40 meq/ (Dextrose) 1,020 mls @ 60 mls/hr IV .Q17H [facility] Last Admin: 04/09/18 06:30 Dose: Not Given Fluconazole (Diflucan Iv 100 Mg/50 Ml Ns) 50 mls @ 100 mls/hr IVPB Q24H [facility]; Protocol Last Admin: 04/08/18 14:55 Dose: 100 mls/hr Meropenem 500 mg/ Sodium (Chloride) 100 mls @ 100 mls/hr IVPB Q12H [facility]; Protocol Last Admin: 04/09/18 03:00 Dose: 100 mls/hr Midodrine (Proamatine) 2.5 mg PO TID [facility] Last Admin: 04/08/18 18:13 Dose: 2.5 mg Multivitamins/Vitamin C (Multi-Delyn Liquid) 5 ml PO DAILY [facility] Last Admin: 04/08/18 09:42 Dose: 5 ml Pantoprazole Sodium (Protonix Susp) 40 mg PO 0600 [facility] Last Admin: 04/09/18 05:57 Dose: 40 mg Potassium Chloride (Potassium Chloride Oral Soln) 20 meq GT Q8H [facility] Last Admin: 04/09/18 02:00 Dose: 20 meq Potassium Phos/Sodium Phos (Neutra-Phos) 1 pkt GT TID [facility] Last Admin: 04/08/18 18:13 Dose: 1 pkt Zinc Sulfate (Zinc Sulfate 220 Mg Cap) 220 mg PO DAILY [facility] Last Admin: 04/08/18 09:37 Dose: 220 mg - Labs Labs: 04/08/18 06:07 04/09/18 05:49 PT 16.0 SECONDS (9.7-12.2) H 03/22/18 16:02 INR 1.5 03/22/18 16:02 APTT 31 SECONDS (21-34) 03/22/18 16:02 - Constitutional Appears: Cachectic, Chronically Ill - Head Exam Head Exam: ATRAUMATIC, NORMOCEPHALIC - Eye Exam Eye Exam: EOMI, Normal appearance - ENT Exam ENT Exam: Mucous Membranes Moist - Neck Exam Additional comments: TRACH - Respiratory Exam Respiratory Exam: Rhonchi. absent: Respiratory Distress - Cardiovascular Exam Cardiovascular Exam: RRR, +S1, +S2 - GI/Abdominal Exam GI & Abdominal Exam: Soft Additional comments: PEG - Rectal Exam Rectal Exam: Deferred - Extremities Exam Extremities Exam: absent: Pedal Edema - Neurological Exam Neurological Exam: Awake. absent: Oriented x3 - Skin Skin Exam: absent: Rash Assessment and Plan (1) Septic shock Status: Acute (2) Altered mental status Status: Acute (3) Pneumonia Status: Acute (4) Respiratory failure requiring intubation Status: Acute (5) COPD exacerbation Status: Acute (6) Cachexia Status: Acute (7) Cholelithiases Status: Acute (8) Alzheimer disease Status: Chronic - Assessment and Plan (Free Text) Assessment: RESP STATUS NO SIG CHANGE. CONT PULM TOILET., ON AC SUPPORT, WEANING TRIALS TOLERATED. MONITOR O2 SAT. CXR REVIEWED, REPEAT CULT PENDING., AB PER ID. CONT PEG FEEDINGS. PROG POOR; PENDING TRANSFER TO [facility]. DISCUSSED WITH STAFF. TIME SPENT 45 MIN.
[2018-04-09] MEDS: Multiple Vitamins Oral Solution PO SCH (10:02)
[2018-04-09] MEDS: Potassium & Sodium Phosphate GT SCH ×3 (10:02→17:43)
--- NOTE | 2018-04-09 14:01 | CP.PCM.PN ---
Subjective - Date & Time of Evaluation Date of Evaluation: 04/09/18 Time of Evaluation: 14:01 - Subjective Subjective: Patient on vent through tracheostomy Vital signs are stable Physical examination is unchanged Potassium is now 3.5 as patient is receiving both IV and through PEG potassium supplement Awaiting transfer to [facility] Objective - Vital Signs/Intake and Output Vital Signs (last 24 hours): Temp Pulse Resp BP Pulse Ox 97.2 F L 105 H 20 137/87 96 04/09/18 12:00 04/09/18 12:00 04/09/18 12:00 04/09/18 12:00 04/09/18 12:00 Intake and Output: 04/09/18 04/09/18 11:59 23:59 Intake Total 1920 200 Output Total 650 Balance 1270 200 - Medications Medications: Current Medications Ascorbic Acid (Vitamin C 500 Mg Tab) 500 mg PO Q12 [facility] Last Admin: 04/09/18 10:04 Dose: 500 mg Hydrocortisone Sodium Succinate (Solu-Cortef) 100 mg IV Q8H [facility] Last Admin: 04/09/18 02:30 Dose: 100 mg Fluconazole (Diflucan Iv 100 Mg/50 Ml Ns) 50 mls @ 100 mls/hr IVPB Q24H [facility]; Protocol Last Admin: 04/08/18 14:55 Dose: 100 mls/hr Meropenem 500 mg/ Sodium (Chloride) 100 mls @ 100 mls/hr IVPB Q12H [facility]; Protocol Last Admin: 04/09/18 03:00 Dose: 100 mls/hr Midodrine (Proamatine) 2.5 mg PO TID [facility] Last Admin: 04/09/18 13:01 Dose: 2.5 mg Multivitamins/Vitamin C (Multi-Delyn Liquid) 5 ml PO DAILY [facility] Last Admin: 04/09/18 10:02 Dose: 5 ml Pantoprazole Sodium (Protonix Susp) 40 mg PO 0600 [facility] Last Admin: 04/09/18 05:57 Dose: 40 mg Potassium Chloride (Potassium Chloride Oral Soln) 20 meq GT Q8H [facility] Last Admin: 04/09/18 10:02 Dose: 20 meq Potassium Phos/Sodium Phos (Neutra-Phos) 1 pkt GT TID [facility] Last Admin: 04/09/18 13:01 Dose: 1 pkt Zinc Sulfate (Zinc Sulfate 220 Mg Cap) 220 mg PO DAILY [facility] Last Admin: 04/09/18 10:04 Dose: 220 mg - Labs Labs: 04/08/18 06:07 04/09/18 05:49 PT 16.0 SECONDS (9.7-12.2) H 03/22/18 16:02 INR 1.5 03/22/18 16:02 APTT 31 SECONDS (21-34) 03/22/18 16:02
[2018-04-09] MEDS: FLUCONAZOLE 100 MG/50 ML IVPB SCH (14:17)
[2018-04-09] MEDS: SODIUM CHLORIDE IVPB SCH (14:17)
--- NOTE | 2018-04-09 15:07 | CP.PCM.PN ---
Subjective - Date & Time of Evaluation Date of Evaluation: 04/09/18 Time of Evaluation: 15:07 - Subjective Subjective: AFEBRILE, ON VENTILATOR TACHY +VE TRACH +VE PEG FEEDINGS LABS REVIEWED; CXR 04/08/18 INCREASING AIRSPACE DISEASE LT. BASE CH INT. LUNG CHANGES B/L LT> RT. K -ok +ve 16% bandemia notified by RN ON 04/08/18 Objective - Vital Signs/Intake and Output Vital Signs (last 24 hours): Temp Pulse Resp BP Pulse Ox 97.2 F L 105 H 20 137/87 96 04/09/18 12:00 04/09/18 12:00 04/09/18 12:00 04/09/18 12:00 04/09/18 12:00 Intake and Output: 04/09/18 04/09/18 06:59 18:59 Intake Total 1540 800 Output Total 650 Balance 890 800 - Medications Medications: Current Medications Ascorbic Acid (Vitamin C 500 Mg Tab) 500 mg PO Q12 [facility] Last Admin: 04/09/18 10:04 Dose: 500 mg Hydrocortisone Sodium Succinate (Solu-Cortef) 100 mg IV Q8H [facility] Last Admin: 04/09/18 02:30 Dose: 100 mg Fluconazole (Diflucan Iv 100 Mg/50 Ml Ns) 50 mls @ 100 mls/hr IVPB Q24H [facility]; Protocol Last Admin: 04/09/18 14:17 Dose: 100 mls/hr Meropenem 500 mg/ Sodium (Chloride) 100 mls @ 100 mls/hr IVPB Q12H [facility]; Protocol Last Admin: 04/09/18 14:18 Dose: 100 mls/hr Midodrine (Proamatine) 2.5 mg PO TID [facility] Last Admin: 04/09/18 13:01 Dose: 2.5 mg Multivitamins/Vitamin C (Multi-Delyn Liquid) 5 ml PO DAILY [facility] Last Admin: 04/09/18 10:02 Dose: 5 ml Pantoprazole Sodium (Protonix Susp) 40 mg PO 0600 [facility] Last Admin: 04/09/18 05:57 Dose: 40 mg Potassium Chloride (Potassium Chloride Oral Soln) 20 meq GT Q8H [facility] Last Admin: 04/09/18 10:02 Dose: 20 meq Potassium Phos/Sodium Phos (Neutra-Phos) 1 pkt GT TID [facility] Last Admin: 04/09/18 13:01 Dose: 1 pkt Zinc Sulfate (Zinc Sulfate 220 Mg Cap) 220 mg PO DAILY [facility] Last Admin: 04/09/18 10:04 Dose: 220 mg - Labs Labs: 04/08/18 06:07 04/09/18 05:49 PT 16.0 SECONDS (9.7-12.2) H 03/22/18 16:02 INR 1.5 03/22/18 16:02 APTT 31 SECONDS (21-34) 03/22/18 16:02 - Constitutional Appears: No Acute Distress, Cachectic, Chronically Ill - Head Exam Head Exam: NORMAL INSPECTION - Eye Exam Eye Exam: EOMI, PERRL - ENT Exam ENT Exam: Normal Oropharynx (+VE TRACH. +VE SECRETIONS) - Neck Exam Neck Exam: Normal Inspection - Respiratory Exam Respiratory Exam: Rhonchi (B/L), NORMAL BREATHING PATTERN - Cardiovascular Exam Cardiovascular Exam: Tachycardia, REGULAR RHYTHM, +S1, +S2 - GI/Abdominal Exam GI & Abdominal Exam: Soft, Normal Bowel Sounds (+VE PEG) - Extremities Exam Extremities Exam: absent: Calf Tenderness, Pedal Edema - Neurological Exam Neurological Exam: Awake, CN II-XII Intact (RT SIDED WEAKNESS) - Psychiatric Exam Psychiatric exam: Flat Affect - Skin Skin Exam: Normal Color, Warm Assessment and Plan (1) Respiratory failure requiring intubation Status: Acute (2) Sepsis associated hypotension Status: Acute (3) Altered mental status Status: Acute (4) Pneumonia Status: Acute (5) Abdominal pain Status: Acute (6) Cholelithiases Status: Acute - Assessment and Plan (Free Text) Plan: CONTINUE IV MERREM 500MG IVPB Q 12HRLY 04/08/18. ON IV DIFLUCAN 100MG IVPB Q 24HRLY. 04/08/18. F/U CULTURES TO ADJUST ABX . PULMONARY ON CASE..
[2018-04-09] MEDS ORDERED: WATER IV SCH (23:15)
[2018-04-09] MEDS ORDERED: D5W IV SCH (23:15)
[2018-04-09] MEDS ORDERED: POTASSIUM CH IV SCH (23:15)
[2018-04-09] MEDS ORDERED: DEXTROSE IV SCH (23:15)
[2018-04-10] MEDS: Potassium Chloride 20 mEq/15 ml LIQ UD GT SCH ×3 (01:13→17:35)
[2018-04-10] MEDS: Meropenem 500 MG in Sodium Chloride 0.9% 100 ML IVPB SCH ×2 (02:30→14:49)
[2018-04-10] MEDS: Pantoprazole 40 mg Susp UD PO SCH (05:40)
[2018-04-10 06:29] LABS: ALB/GLOB RATIO 1.1 (1.0-2.1); ALBUMIN 2.7 g/dL (3.5-5.0); ALT/SGPT 36 U/L (21-72); AST/SGOT 62 U/L (17-59); BLOOD UREA NITROGEN 16 mg/dL (9-20); CALCIUM 7.6 mg/dl (8.6-10.4); GFR NON-AFRICAN AMERICAN > 60
--- NOTE | 2018-04-10 09:15 | CP.PCM.PN ---
Subjective - Date & Time of Evaluation Date of Evaluation: 04/10/18 Time of Evaluation: 09:13 - Subjective Subjective: PT ON VENT VIA TRACH. ROS; UNOBTAINABLE. Objective - Vital Signs/Intake and Output Vital Signs (last 24 hours): Temp Pulse Resp BP Pulse Ox 98.5 F 103 H 19 132/62 98 04/10/18 04:00 04/10/18 04:00 04/10/18 04:00 04/10/18 04:00 04/10/18 04:00 Intake and Output: 04/10/18 04/10/18 06:59 18:59 Intake Total 1120 300 Output Total 450 100 Balance 670 200 - Medications Medications: Current Medications Ascorbic Acid (Vitamin C 500 Mg Tab) 500 mg PO Q12 [facility] Last Admin: 04/09/18 23:25 Dose: 500 mg Hydrocortisone Sodium Succinate (Solu-Cortef) 100 mg IV Q8H [facility] Last Admin: 04/10/18 02:29 Dose: 100 mg Fluconazole (Diflucan Iv 100 Mg/50 Ml Ns) 50 mls @ 100 mls/hr IVPB Q24H [facility]; Protocol Last Admin: 04/09/18 14:17 Dose: 100 mls/hr Meropenem 500 mg/ Sodium (Chloride) 100 mls @ 100 mls/hr IVPB Q12H [facility]; Protocol Last Admin: 04/10/18 02:30 Dose: 100 mls/hr Potassium Chloride 40 meq/ (Dextrose) 1,020 mls @ 60 mls/hr IV .Q17H [facility] Last Admin: 04/10/18 00:10 Dose: 60 mls/hr Midodrine (Proamatine) 2.5 mg PO TID [facility] Last Admin: 04/09/18 17:43 Dose: 2.5 mg Multivitamins/Vitamin C (Multi-Delyn Liquid) 5 ml PO DAILY [facility] Last Admin: 04/09/18 10:02 Dose: 5 ml Pantoprazole Sodium (Protonix Susp) 40 mg PO 0600 [facility] Last Admin: 04/10/18 05:40 Dose: 40 mg Potassium Chloride (Potassium Chloride Oral Soln) 20 meq GT Q8H [facility] Last Admin: 04/10/18 01:13 Dose: 20 meq Potassium Phos/Sodium Phos (Neutra-Phos) 1 pkt GT TID [facility] Last Admin: 04/09/18 17:43 Dose: 1 pkt Zinc Sulfate (Zinc Sulfate 220 Mg Cap) 220 mg PO DAILY [facility] Last Admin: 04/09/18 10:04 Dose: 220 mg - Labs Labs: 04/08/18 06:07 04/10/18 05:42 PT 16.0 SECONDS (9.7-12.2) H 03/22/18 16:02 INR 1.5 03/22/18 16:02 APTT 31 SECONDS (21-34) 03/22/18 16:02 - Constitutional Appears: Cachectic, Chronically Ill - Head Exam Head Exam: ATRAUMATIC, NORMOCEPHALIC - Eye Exam Eye Exam: EOMI, Normal appearance - ENT Exam ENT Exam: Mucous Membranes Moist - Neck Exam Additional comments: TRACH - Respiratory Exam Respiratory Exam: Rhonchi. absent: Respiratory Distress - Cardiovascular Exam Cardiovascular Exam: RRR, +S1, +S2 - GI/Abdominal Exam GI & Abdominal Exam: Soft Additional comments: PEG - Rectal Exam Rectal Exam: Deferred - Extremities Exam Extremities Exam: absent: Pedal Edema - Neurological Exam Neurological Exam: Altered, Awake. absent: Oriented x3 - Skin Skin Exam: absent: Rash Assessment and Plan (1) Septic shock Status: Acute (2) Altered mental status Status: Acute (3) Pneumonia Status: Acute (4) Respiratory failure requiring intubation Status: Acute (5) COPD exacerbation Status: Acute (6) Cachexia Status: Acute (7) Cholelithiases Status: Acute (8) Alzheimer disease Status: Chronic - Assessment and Plan (Free Text) Assessment: RESP STATUS NO SIG CHANGE., CONT AC SUPPORT, PULM TOILET., NEB BD., MONITOR O2 SAT. CXR REVIEWED, ON IV AB PER ID. F/U REPEAT CULT. CONT PEG FEEDINGS. ON MIDODRINE. ON FLORINEF. PROG POOR. PENDING TRANSFER TO [facility]. DISCUSSED WITH STAFF AND RT. TIME SPENT 45 MIN.
[2018-04-10] MEDS: Multiple Vitamins Oral Solution PO SCH (11:56)
[2018-04-10] MEDS: Potassium & Sodium Phosphate GT SCH ×3 (11:56→17:35)
--- NOTE | 2018-04-10 12:06 | CP.PCM.PN ---
Subjective - Date & Time of Evaluation Date of Evaluation: 04/10/18 Time of Evaluation: 12:06 - Subjective Subjective: Patient on vent through tracheostomy Vital signs are stable Physical examination is unchanged Potassium is now 3.5 as patient is receiving both IV and through PEG potassium supplement Awaiting transfer to [facility] Objective - Vital Signs/Intake and Output Vital Signs (last 24 hours): Temp Pulse Resp BP Pulse Ox 98.0 F 88 19 111/58 L 100 04/10/18 08:00 04/10/18 09:16 04/10/18 08:00 04/10/18 08:00 04/10/18 08:00 Intake and Output: 04/10/18 04/10/18 11:59 23:59 Intake Total 1320 Output Total 1050 Balance 270 - Medications Medications: Current Medications Ascorbic Acid (Vitamin C 500 Mg Tab) 500 mg PO Q12 [facility] Last Admin: 04/10/18 11:56 Dose: 500 mg Hydrocortisone Sodium Succinate (Solu-Cortef) 100 mg IV Q8H [facility] Last Admin: 04/10/18 11:55 Dose: 100 mg Fluconazole (Diflucan Iv 100 Mg/50 Ml Ns) 50 mls @ 100 mls/hr IVPB Q24H [facility]; Protocol Last Admin: 04/09/18 14:17 Dose: 100 mls/hr Meropenem 500 mg/ Sodium (Chloride) 100 mls @ 100 mls/hr IVPB Q12H [facility]; Protocol Last Admin: 04/10/18 02:30 Dose: 100 mls/hr Potassium Chloride 40 meq/ (Dextrose) 1,020 mls @ 60 mls/hr IV .Q17H [facility] Last Admin: 04/10/18 00:10 Dose: 60 mls/hr Midodrine (Proamatine) 2.5 mg PO TID [facility] Last Admin: 04/10/18 11:56 Dose: 2.5 mg Multivitamins/Vitamin C (Multi-Delyn Liquid) 5 ml PO DAILY [facility] Last Admin: 04/10/18 11:56 Dose: 5 ml Pantoprazole Sodium (Protonix Susp) 40 mg PO 0600 [facility] Last Admin: 04/10/18 05:40 Dose: 40 mg Potassium Chloride (Potassium Chloride Oral Soln) 20 meq GT Q8H [facility] Last Admin: 04/10/18 11:55 Dose: 20 meq Potassium Phos/Sodium Phos (Neutra-Phos) 1 pkt GT TID [facility] Last Admin: 04/10/18 11:56 Dose: 1 pkt Zinc Sulfate (Zinc Sulfate 220 Mg Cap) 220 mg PO DAILY [facility] Last Admin: 04/10/18 11:56 Dose: 220 mg - Labs Labs: 04/08/18 06:07 04/10/18 05:42 PT 16.0 SECONDS (9.7-12.2) H 03/22/18 16:02 INR 1.5 03/22/18 16:02 APTT 31 SECONDS (21-34) 03/22/18 16:02
[2018-04-10] MEDS: FLUCONAZOLE 100 MG/50 ML IVPB SCH (13:38)
[2018-04-10] MEDS: SODIUM CHLORIDE IVPB SCH (13:38)
--- NOTE | 2018-04-10 14:31 | CP.PCM.PN ---
Subjective - Date & Time of Evaluation Date of Evaluation: 04/10/18 Time of Evaluation: 14:31 - Subjective Subjective: AFEBRILE, ON VENTILATOR TACHY +VE TRACH +VE PEG FEEDINGS . ROS: UNOBTAINABLE. LABS ; BLOOD CULTURE 04/08/18 1:2 SETS +VE GM +VE COCCI IN [facility]ERS Objective - Vital Signs/Intake and Output Vital Signs (last 24 hours): Temp Pulse Resp BP Pulse Ox 98.1 F 98 H 20 101/63 100 04/10/18 12:00 04/10/18 12:00 04/10/18 12:00 04/10/18 12:00 04/10/18 12:00 Intake and Output: 04/10/18 04/10/18 06:59 18:59 Intake Total 1120 750 Output Total 450 600 Balance 670 150 - Medications Medications: Current Medications Ascorbic Acid (Vitamin C 500 Mg Tab) 500 mg PO Q12 [facility] Last Admin: 04/10/18 11:56 Dose: 500 mg Hydrocortisone Sodium Succinate (Solu-Cortef) 100 mg IV Q8H [facility] Last Admin: 04/10/18 11:55 Dose: 100 mg Fluconazole (Diflucan Iv 100 Mg/50 Ml Ns) 50 mls @ 100 mls/hr IVPB Q24H [facility]; Protocol Last Admin: 04/10/18 13:38 Dose: 100 mls/hr Meropenem 500 mg/ Sodium (Chloride) 100 mls @ 100 mls/hr IVPB Q12H [facility]; Protocol Last Admin: 04/10/18 02:30 Dose: 100 mls/hr Potassium Chloride 40 meq/ (Dextrose) 1,020 mls @ 60 mls/hr IV .Q17H [facility] Last Admin: 04/10/18 00:10 Dose: 60 mls/hr Midodrine (Proamatine) 2.5 mg PO TID [facility] Last Admin: 04/10/18 13:38 Dose: 2.5 mg Multivitamins/Vitamin C (Multi-Delyn Liquid) 5 ml PO DAILY [facility] Last Admin: 04/10/18 11:56 Dose: 5 ml Pantoprazole Sodium (Protonix Susp) 40 mg PO 0600 [facility] Last Admin: 04/10/18 05:40 Dose: 40 mg Potassium Chloride (Potassium Chloride Oral Soln) 20 meq GT Q8H [facility] Last Admin: 04/10/18 11:55 Dose: 20 meq Potassium Phos/Sodium Phos (Neutra-Phos) 1 pkt GT TID [facility] Last Admin: 04/10/18 13:38 Dose: 1 pkt Zinc Sulfate (Zinc Sulfate 220 Mg Cap) 220 mg PO DAILY [facility] Last Admin: 04/10/18 11:56 Dose: 220 mg - Labs Labs: 04/08/18 06:07 04/10/18 05:42 PT 16.0 SECONDS (9.7-12.2) H 03/22/18 16:02 INR 1.5 03/22/18 16:02 APTT 31 SECONDS (21-34) 03/22/18 16:02 - Constitutional Appears: No Acute Distress, Confused, Cachectic, Chronically Ill - Head Exam Head Exam: NORMAL INSPECTION - Eye Exam Eye Exam: EOMI, PERRL - ENT Exam ENT Exam: Normal Oropharynx - Respiratory Exam Respiratory Exam: Decreased Breath Sounds, Rhonchi, NORMAL BREATHING PATTERN - Cardiovascular Exam Cardiovascular Exam: Tachycardia, REGULAR RHYTHM, +S1, +S2 - GI/Abdominal Exam GI & Abdominal Exam: Soft, Normal Bowel Sounds (+VE PEG) - Extremities Exam Extremities Exam: Normal Capillary Refill. absent: Calf Tenderness, Pedal Edema - Neurological Exam Neurological Exam: Altered, Awake (R SIDED WEAKNESS) - Psychiatric Exam Psychiatric exam: Flat Affect - Skin Skin Exam: Normal Color, Warm Assessment and Plan (1) Respiratory failure requiring intubation Status: Acute (2) Sepsis associated hypotension Status: Acute (3) Altered mental status Status: Acute (4) Pneumonia Status: Acute (5) Abdominal pain Status: Acute (6) Cholelithiases Status: Acute - Assessment and Plan (Free Text) Plan: CONTINUE IV MERREM 500MG IVPB Q 12HRLY 04/08/18. ON IV DIFLUCAN 100MG IVPB Q 24HRLY. 04/08/18. F/U CULTURES TO ADJUST ABX . F/U BLOOD CULTURE . PULMONARY ON CASE..
[2018-04-11] MEDS: Potassium Chloride 20 mEq/15 ml LIQ UD GT SCH ×3 (02:45→17:50)
[2018-04-11] MEDS: Meropenem 500 MG in Sodium Chloride 0.9% 100 ML IVPB SCH ×2 (02:45→15:18)
[2018-04-11] MEDS: Pantoprazole 40 mg Susp UD PO SCH (05:20)
[2018-04-11 06:20] LABS: ALB/GLOB RATIO 1.1 (1.0-2.1); ALBUMIN 2.9 g/dL (3.5-5.0); ALT/SGPT 39 U/L (21-72); AST/SGOT 78 U/L (17-59); BLOOD UREA NITROGEN 15 mg/dL (9-20); CALCIUM 7.8 mg/dl (8.6-10.4); GFR NON-AFRICAN AMERICAN > 60
[2018-04-11] MEDS: Potassium & Sodium Phosphate GT SCH ×3 (10:34→17:50)
[2018-04-11] MEDS: Multiple Vitamins Oral Solution PO SCH (10:35)
--- NOTE | 2018-04-11 11:20 | CP.PCM.PN ---
Subjective - Date & Time of Evaluation Date of Evaluation: 04/11/18 Time of Evaluation: 11:20 - Subjective Subjective: Patient on vent through tracheostomy Vital signs are stable Physical examination is unchanged Potassium is now 3.5 as patient is receiving both IV and through PEG potassium supplement Awaiting transfer to [facility] Objective - Vital Signs/Intake and Output Vital Signs (last 24 hours): Temp Pulse Resp BP Pulse Ox 96.5 F L 85 24 105/70 100 04/11/18 08:00 04/11/18 08:00 04/11/18 08:00 04/11/18 08:00 04/11/18 08:00 Intake and Output: 04/10/18 04/11/18 23:59 11:59 Intake Total 1160 900 Output Total 100 1200 Balance 1060 -300 - Medications Medications: Current Medications Ascorbic Acid (Vitamin C 500 Mg Tab) 500 mg PO Q12 [facility] Last Admin: 04/11/18 10:33 Dose: 500 mg Hydrocortisone Sodium Succinate (Solu-Cortef) 100 mg IV Q8H [facility] Last Admin: 04/11/18 10:33 Dose: 100 mg Fluconazole (Diflucan Iv 100 Mg/50 Ml Ns) 50 mls @ 100 mls/hr IVPB Q24H [facility]; Protocol Last Admin: 04/10/18 13:38 Dose: 100 mls/hr Meropenem 500 mg/ Sodium (Chloride) 100 mls @ 100 mls/hr IVPB Q12H [facility]; Protocol Last Admin: 04/11/18 02:45 Dose: 100 mls/hr Potassium Chloride 40 meq/ (Dextrose) 1,020 mls @ 60 mls/hr IV .Q17H [facility] Last Admin: 04/11/18 10:36 Dose: 60 mls/hr Midodrine (Proamatine) 2.5 mg PO TID [facility] Last Admin: 04/11/18 10:33 Dose: 2.5 mg Multivitamins/Vitamin C (Multi-Delyn Liquid) 5 ml PO DAILY [facility] Last Admin: 04/11/18 10:35 Dose: 5 ml Pantoprazole Sodium (Protonix Susp) 40 mg PO 0600 [facility] Last Admin: 04/11/18 05:20 Dose: 40 mg Potassium Chloride (Potassium Chloride Oral Soln) 20 meq GT Q8H [facility] Last Admin: 04/11/18 10:33 Dose: 20 meq Potassium Phos/Sodium Phos (Neutra-Phos) 1 pkt GT TID [facility] Last Admin: 04/11/18 10:34 Dose: 1 pkt Zinc Sulfate (Zinc Sulfate 220 Mg Cap) 220 mg PO DAILY [facility] Last Admin: 04/11/18 10:33 Dose: 220 mg - Labs Labs: 04/08/18 06:07 04/11/18 05:55 PT 16.0 SECONDS (9.7-12.2) H 03/22/18 16:02 INR 1.5 03/22/18 16:02 APTT 31 SECONDS (21-34) 03/22/18 16:02
--- NOTE | 2018-04-11 13:04 | CP.PCM.PN ---
Subjective - Date & Time of Evaluation Date of Evaluation: 04/11/18 Time of Evaluation: 13:01 - Subjective Subjective: PT ALERT, ON VENT VIA TRACH. OOB IN CHAIR. ROS; UNOBTAINABLE. Objective - Vital Signs/Intake and Output Vital Signs (last 24 hours): Temp Pulse Resp BP Pulse Ox 96.5 F L 85 24 105/70 100 04/11/18 08:00 04/11/18 08:00 04/11/18 08:00 04/11/18 08:00 04/11/18 08:00 Intake and Output: 04/11/18 04/11/18 06:59 18:59 Intake Total 1260 Output Total 1200 Balance 60 - Medications Medications: Current Medications Ascorbic Acid (Vitamin C 500 Mg Tab) 500 mg PO Q12 [facility] Last Admin: 04/11/18 10:33 Dose: 500 mg Hydrocortisone Sodium Succinate (Solu-Cortef) 100 mg IV Q8H [facility] Last Admin: 04/11/18 10:33 Dose: 100 mg Fluconazole (Diflucan Iv 100 Mg/50 Ml Ns) 50 mls @ 100 mls/hr IVPB Q24H [facility]; Protocol Last Admin: 04/10/18 13:38 Dose: 100 mls/hr Meropenem 500 mg/ Sodium (Chloride) 100 mls @ 100 mls/hr IVPB Q12H [facility]; Protocol Last Admin: 04/11/18 02:45 Dose: 100 mls/hr Potassium Chloride 40 meq/ (Dextrose) 1,020 mls @ 60 mls/hr IV .Q17H [facility] Last Admin: 04/11/18 10:36 Dose: 60 mls/hr Midodrine (Proamatine) 2.5 mg PO TID [facility] Last Admin: 04/11/18 10:33 Dose: 2.5 mg Multivitamins/Vitamin C (Multi-Delyn Liquid) 5 ml PO DAILY [facility] Last Admin: 04/11/18 10:35 Dose: 5 ml Pantoprazole Sodium (Protonix Susp) 40 mg PO 0600 [facility] Last Admin: 04/11/18 05:20 Dose: 40 mg Potassium Chloride (Potassium Chloride Oral Soln) 20 meq GT Q8H [facility] Last Admin: 04/11/18 10:33 Dose: 20 meq Potassium Phos/Sodium Phos (Neutra-Phos) 1 pkt GT TID [facility] Last Admin: 04/11/18 10:34 Dose: 1 pkt Zinc Sulfate (Zinc Sulfate 220 Mg Cap) 220 mg PO DAILY [facility] Last Admin: 04/11/18 10:33 Dose: 220 mg - Labs Labs: 04/08/18 06:07 04/11/18 05:55 PT 16.0 SECONDS (9.7-12.2) H 03/22/18 16:02 INR 1.5 03/22/18 16:02 APTT 31 SECONDS (21-34) 03/22/18 16:02 - Constitutional Appears: No Acute Distress, Cachectic, Chronically Ill - Head Exam Head Exam: ATRAUMATIC, NORMOCEPHALIC - Eye Exam Eye Exam: EOMI, Normal appearance - ENT Exam ENT Exam: Mucous Membranes Moist - Neck Exam Additional comments: TRACH - Respiratory Exam Respiratory Exam: Rhonchi. absent: Respiratory Distress - Cardiovascular Exam Cardiovascular Exam: RRR, +S1, +S2 - GI/Abdominal Exam GI & Abdominal Exam: Soft Additional comments: PEG - Rectal Exam Rectal Exam: Deferred - Extremities Exam Extremities Exam: absent: Calf Tenderness, Pedal Edema - Back Exam Back Exam: absent: rash noted - Neurological Exam Neurological Exam: Alert, Awake. absent: Oriented x3 - Skin Skin Exam: absent: Rash Assessment and Plan (1) Septic shock Status: Acute (2) Altered mental status Status: Acute (3) Pneumonia Status: Acute (4) Respiratory failure requiring intubation Status: Acute (5) COPD exacerbation Status: Acute (6) Cachexia Status: Acute (7) Cholelithiases Status: Acute (8) Alzheimer disease Status: Chronic - Assessment and Plan (Free Text) Assessment: GRAM + BACTEREMIA NOTED, CONT AB PER ID. CONT AC SUPPORT ., PULM TOILET., NEB BD., MONITOR O2SAT. CXR REVIEWED. ON FEEDINGS VIA PEG. CONT PT. PROG POOR. PENDING TRANSFER TO [facility]. DISCUSSED WITH STAFF AT LENGTH., TIME SPENT 45 MIN.
[2018-04-11] MEDS: FLUCONAZOLE 100 MG/50 ML IVPB SCH (15:18)
[2018-04-11] MEDS: SODIUM CHLORIDE IVPB SCH (15:18)
--- NOTE | 2018-04-11 22:56 | CP.PCM.PN ---
Subjective - Date & Time of Evaluation Date of Evaluation: 04/11/18 Time of Evaluation: 22:56 - Subjective Subjective: AFEBRILE, OOB ON CHAIR ON VENTILATOR +VE TRACH +VE PEG FEEDINGS . LABS ; BLOOD CULTURE 04/08/18 sputum N CHESLY 1:2 SETS +VE staph coagulase -ve.? contaminant Objective - Vital Signs/Intake and Output Vital Signs (last 24 hours): Temp Pulse Resp BP Pulse Ox 98.2 F 84 17 106/59 L 100 04/11/18 20:00 04/11/18 20:00 04/11/18 20:00 04/11/18 20:00 04/11/18 20:00 Intake and Output: 04/11/18 04/12/18 18:59 06:59 Intake Total 760 Output Total 1200 Balance -440 - Medications Medications: Current Medications Ascorbic Acid (Vitamin C 500 Mg Tab) 500 mg PO Q12 [facility] Last Admin: 04/11/18 22:20 Dose: 500 mg Hydrocortisone Sodium Succinate (Solu-Cortef) 100 mg IV Q8H [facility] Last Admin: 04/11/18 17:50 Dose: 100 mg Potassium Chloride 40 meq/ (Dextrose) 1,020 mls @ 60 mls/hr IV .Q17H [facility] Last Admin: 04/11/18 10:36 Dose: 60 mls/hr Midodrine (Proamatine) 2.5 mg PO TID [facility] Last Admin: 04/11/18 17:50 Dose: 2.5 mg Multivitamins/Vitamin C (Multi-Delyn Liquid) 5 ml PO DAILY [facility] Last Admin: 04/11/18 10:35 Dose: 5 ml Pantoprazole Sodium (Protonix Susp) 40 mg PO 0600 [facility] Last Admin: 04/11/18 05:20 Dose: 40 mg Potassium Chloride (Potassium Chloride Oral Soln) 20 meq GT Q8H [facility] Last Admin: 04/11/18 17:50 Dose: 20 meq Potassium Phos/Sodium Phos (Neutra-Phos) 1 pkt GT TID [facility] Last Admin: 04/11/18 17:50 Dose: 1 pkt Zinc Sulfate (Zinc Sulfate 220 Mg Cap) 220 mg PO DAILY [facility] Last Admin: 04/11/18 10:33 Dose: 220 mg - Labs Labs: 04/08/18 06:07 04/11/18 05:55 PT 16.0 SECONDS (9.7-12.2) H 03/22/18 16:02 INR 1.5 03/22/18 16:02 APTT 31 SECONDS (21-34) 03/22/18 16:02 - Constitutional Appears: No Acute Distress, Cachectic, Chronically Ill - Head Exam Head Exam: NORMAL INSPECTION - Eye Exam Eye Exam: EOMI, PERRL - ENT Exam ENT Exam: Mucous Membranes Moist - Neck Exam Neck Exam: Normal Inspection - Respiratory Exam Respiratory Exam: Decreased Breath Sounds, Rhonchi - Cardiovascular Exam Cardiovascular Exam: Tachycardia, REGULAR RHYTHM, +S1, +S2 - GI/Abdominal Exam GI & Abdominal Exam: Soft, Normal Bowel Sounds (+ve peg) - Extremities Exam Extremities Exam: absent: Calf Tenderness, Pedal Edema - Neurological Exam Neurological Exam: Awake (rt side weakness) - Psychiatric Exam Psychiatric exam: Normal Mood - Skin Skin Exam: Dry, Normal Color, Warm Assessment and Plan (1) Respiratory failure requiring intubation Status: Acute (2) Sepsis associated hypotension Status: Acute (3) Altered mental status Status: Acute (4) Pneumonia Status: Acute (5) Abdominal pain Status: Acute (6) Cholelithiases Status: Acute - Assessment and Plan (Free Text) Plan: DC IV MERREM 500MG IVPB Q 12HRLY 04/08/18. DC IV DIFLUCAN 100MG IVPB Q 24HRLY. 04/08/18. F/U FEVER CURVE OFF ABX. PULMONARY TOILET.
[2018-04-12] MEDS: Potassium Chloride 20 mEq/15 ml LIQ UD GT SCH ×3 (02:05→17:49)
[2018-04-12] MEDS: Pantoprazole 40 mg Susp UD PO SCH (05:51)
[2018-04-12 06:37] LABS: ALB/GLOB RATIO 1.1 (1.0-2.1); ALBUMIN 2.8 g/dL (3.5-5.0); ALT/SGPT 47 U/L (21-72); AST/SGOT 57 U/L (17-59); BLOOD UREA NITROGEN 11 mg/dL (9-20); CALCIUM 7.8 mg/dl (8.6-10.4); GFR NON-AFRICAN AMERICAN > 60
--- NOTE | 2018-04-12 06:49 | CP.PCM.PN ---
Subjective - Date & Time of Evaluation Date of Evaluation: 04/12/18 Time of Evaluation: 06:46 - Subjective Subjective: PT ON VENT VIA TRACH. ROS; UNOBTAINABLE Objective - Vital Signs/Intake and Output Vital Signs (last 24 hours): Temp Pulse Resp BP Pulse Ox 97.8 F 84 16 114/59 L 100 04/12/18 04:00 04/12/18 04:00 04/12/18 04:00 04/12/18 04:00 04/12/18 04:00 Intake and Output: 04/11/18 04/12/18 18:59 06:59 Intake Total 760 760 Output Total 1200 800 Balance -440 -40 - Medications Medications: Current Medications Ascorbic Acid (Vitamin C 500 Mg Tab) 500 mg PO Q12 [facility] Last Admin: 04/11/18 22:20 Dose: 500 mg Hydrocortisone Sodium Succinate (Solu-Cortef) 100 mg IV Q8H [facility] Last Admin: 04/12/18 02:07 Dose: 100 mg Potassium Chloride 40 meq/ (Dextrose) 1,020 mls @ 60 mls/hr IV .Q17H [facility] Last Admin: 04/12/18 02:07 Dose: 60 mls/hr Midodrine (Proamatine) 2.5 mg PO TID [facility] Last Admin: 04/11/18 17:50 Dose: 2.5 mg Multivitamins/Vitamin C (Multi-Delyn Liquid) 5 ml PO DAILY [facility] Last Admin: 04/11/18 10:35 Dose: 5 ml Pantoprazole Sodium (Protonix Susp) 40 mg PO 0600 [facility] Last Admin: 04/12/18 05:51 Dose: 40 mg Potassium Chloride (Potassium Chloride Oral Soln) 20 meq GT Q8H [facility] Last Admin: 04/12/18 02:05 Dose: 20 meq Potassium Phos/Sodium Phos (Neutra-Phos) 1 pkt GT TID [facility] Last Admin: 04/11/18 17:50 Dose: 1 pkt Zinc Sulfate (Zinc Sulfate 220 Mg Cap) 220 mg PO DAILY [facility] Last Admin: 04/11/18 10:33 Dose: 220 mg - Labs Labs: 04/08/18 06:07 04/12/18 06:07 PT 16.0 SECONDS (9.7-12.2) H 03/22/18 16:02 INR 1.5 03/22/18 16:02 APTT 31 SECONDS (21-34) 03/22/18 16:02 - Constitutional Appears: Cachectic, Chronically Ill - Head Exam Head Exam: ATRAUMATIC, NORMOCEPHALIC - Eye Exam Eye Exam: EOMI, Normal appearance - ENT Exam ENT Exam: Mucous Membranes Moist - Neck Exam Additional comments: TRACH - Respiratory Exam Respiratory Exam: Rhonchi. absent: Accessory Muscle Use, Respiratory Distress - Cardiovascular Exam Cardiovascular Exam: RRR, +S1, +S2 - GI/Abdominal Exam GI & Abdominal Exam: Soft Additional comments: PEG - Rectal Exam Rectal Exam: Deferred - Extremities Exam Extremities Exam: absent: Pedal Edema - Neurological Exam Neurological Exam: Awake. absent: Oriented x3 - Skin Skin Exam: absent: Rash Assessment and Plan (1) Septic shock Status: Acute (2) Altered mental status Status: Acute (3) Pneumonia Status: Acute (4) Respiratory failure requiring intubation Status: Acute (5) COPD exacerbation Status: Acute (6) Cachexia Status: Acute (7) Cholelithiases Status: Acute (8) Alzheimer disease Status: Chronic - Assessment and Plan (Free Text) Assessment: RESP STATUS NO SIG CHANGE. CONT AC SUPPORT, NEB BD., PULM TOILET., MONITOR O2 SAT. PS TRIALS. CXR REVIEWED. AFEBRILE ON AB., +BACTEREMIA, PENDING FINAL RESU LTS. TOLERATING PEG FEEDINGS. PROG POOR. PENDING TRANSFER TO [facility]. DISCUSSED WITH STAFF. TIME SPENT 45 MIN.
[2018-04-12] MEDS: Multiple Vitamins Oral Solution PO SCH (10:31)
[2018-04-12] MEDS: Potassium & Sodium Phosphate GT SCH ×3 (10:31→17:49)
--- NOTE | 2018-04-12 12:28 | CP.PCM.PN ---
Subjective - Date & Time of Evaluation Date of Evaluation: 04/12/18 Time of Evaluation: 12:28 - Subjective Subjective: Patient on vent through tracheostomy Vital signs are stable Physical examination is unchanged Potassium is now 3.5 as patient is receiving both IV and through PEG potassium supplement Awaiting transfer to [facility] Objective - Vital Signs/Intake and Output Vital Signs (last 24 hours): Temp Pulse Resp BP Pulse Ox 97.8 F 84 16 114/59 L 100 04/12/18 04:00 04/12/18 04:00 04/12/18 04:00 04/12/18 04:00 04/12/18 04:00 Intake and Output: 04/12/18 04/12/18 11:59 23:59 Intake Total 2160 Output Total 1800 Balance 360 - Medications Medications: Current Medications Hydrocortisone Sodium Succinate (Solu-Cortef) 100 mg IV Q8H [facility] Last Admin: 04/12/18 10:29 Dose: 100 mg Potassium Chloride 40 meq/ (Dextrose) 1,020 mls @ 60 mls/hr IV .Q17H [facility] Last Admin: 04/12/18 02:07 Dose: 60 mls/hr Midodrine (Proamatine) 2.5 mg PO TID [facility] Last Admin: 04/12/18 10:37 Dose: 2.5 mg Pantoprazole Sodium (Protonix Susp) 40 mg PO 0600 [facility] Last Admin: 04/12/18 05:51 Dose: 40 mg Potassium Chloride (Potassium Chloride Oral Soln) 20 meq GT Q8H [facility] Last Admin: 04/12/18 10:32 Dose: 20 meq Potassium Phos/Sodium Phos (Neutra-Phos) 1 pkt GT TID [facility] Last Admin: 04/12/18 10:31 Dose: 1 pkt - Labs Labs: 04/08/18 06:07 04/12/18 06:07 PT 16.0 SECONDS (9.7-12.2) H 03/22/18 16:02 INR 1.5 03/22/18 16:02 APTT 31 SECONDS (21-34) 03/22/18 16:02
--- NOTE | 2018-04-12 19:25 | CP.PCM.PN ---
Subjective - Date & Time of Evaluation Date of Evaluation: 04/12/18 Time of Evaluation: 19:24 - Subjective Subjective: AFEBRILE, VSS PATIENT ON VENT. +VE TRACHEOSTOMY. OFF ABX SINCE 04/11/18 LABS BLOOD CULTURE 04/08/18 1:2 SETS +VE staph coagulase -ve.? contaminant Sputum 04/08/18 N [facility]LS[facility] Objective - Vital Signs/Intake and Output Vital Signs (last 24 hours): Temp Pulse Resp BP Pulse Ox 98 F 87 20 128/75 98 04/12/18 08:00 04/12/18 08:00 04/12/18 08:00 04/12/18 08:00 04/12/18 08:00 Intake and Output: 04/12/18 04/13/18 18:59 06:59 Intake Total 520 Output Total 1200 Balance -680 - Medications Medications: Current Medications Ascorbic Acid (Vitamin C 500 Mg Tab) 500 mg PO Q12H [facility] Hydrocortisone Sodium Succinate (Solu-Cortef) 100 mg IV Q8H [facility] Last Admin: 04/12/18 17:50 Dose: 100 mg Potassium Chloride 40 meq/ (Dextrose) 1,020 mls @ 60 mls/hr IV .Q17H [facility] Midodrine (Proamatine) 2.5 mg PO TID [facility] Last Admin: 04/12/18 17:49 Dose: 2.5 mg Multivitamins/Vitamin C (Multi-Delyn Liquid) 5 ml PO DAILY [facility] Pantoprazole Sodium (Protonix Susp) 40 mg PO 0600 [facility] Last Admin: 04/12/18 05:51 Dose: 40 mg Potassium Chloride (Potassium Chloride Oral Soln) 20 meq GT Q8H [facility] Last Admin: 04/12/18 17:49 Dose: 20 meq Potassium Phos/Sodium Phos (Neutra-Phos) 1 pkt GT TID [facility] Last Admin: 04/12/18 17:49 Dose: 1 pkt Zinc Sulfate (Zinc Sulfate 220 Mg Cap) 220 mg PO DAILY [facility] - Labs Labs: 04/08/18 06:07 04/12/18 06:07 PT 16.0 SECONDS (9.7-12.2) H 03/22/18 16:02 INR 1.5 03/22/18 16:02 APTT 31 SECONDS (21-34) 03/22/18 16:02 - Constitutional Appears: No Acute Distress, Cachectic, Chronically Ill - Head Exam Head Exam: NORMAL INSPECTION - Eye Exam Eye Exam: EOMI, PERRL - ENT Exam ENT Exam: Mucous Membranes Moist, Normal Oropharynx - Neck Exam Neck Exam: Normal Inspection - Respiratory Exam Respiratory Exam: Rhonchi, NORMAL BREATHING PATTERN - Cardiovascular Exam Cardiovascular Exam: Tachycardia, REGULAR RHYTHM, +S1, +S2 - GI/Abdominal Exam GI & Abdominal Exam: Soft, Normal Bowel Sounds ( +VE PEG) - Extremities Exam Extremities Exam: absent: Calf Tenderness, Pedal Edema - Neurological Exam Neurological Exam: Altered, CN II-XII Intact Additional comments: RT SIDED WEAKNESS - Psychiatric Exam Psychiatric exam: Flat Affect - Skin Skin Exam: Normal Color Assessment and Plan (1) Respiratory failure requiring intubation Status: Acute (2) Sepsis associated hypotension Status: Acute (3) Altered mental status Status: Acute (4) Pneumonia Status: Acute (5) Abdominal pain Status: Acute (6) Cholelithiases Status: Acute - Assessment and Plan (Free Text) Plan: OFF IV MERREM 500MG IVPB Q 12HRLY 04/08/18.-04/11/18 OFF IV DIFLUCAN 100MG IVPB Q 24HRLY. 04/08/18-04/11/18 OBSERVE FEVER CURVE PULMONARY ON CASE.
[2018-04-13] MEDS: Potassium Chloride 20 mEq/15 ml LIQ UD GT SCH ×3 (02:12→17:15)
[2018-04-13] MEDS: Pantoprazole 40 mg Susp UD PO SCH (05:05)
[2018-04-13 06:26] LABS: ALBUMIN 2.8 g/dL (3.5-5.0); ALT/SGPT 43 U/L (21-72); AST/SGOT 56 U/L (17-59); BLOOD UREA NITROGEN 11 mg/dL (9-20); CALCIUM 7.9 mg/dl (8.6-10.4); GFR NON-AFRICAN AMERICAN > 60
[2018-04-13] MEDS: Potassium & Sodium Phosphate GT SCH ×3 (09:26→17:06)
--- NOTE | 2018-04-13 12:13 | CP.PCM.PN ---
Subjective - Date & Time of Evaluation Date of Evaluation: 04/13/18 Time of Evaluation: 12:13 - Subjective Subjective: Patient on vent through tracheostomy Vital signs are stable Physical examination is unchanged Potassium is now 3.5 as patient is receiving both IV and through PEG potassium supplement Awaiting transfer to [facility] Objective - Vital Signs/Intake and Output Vital Signs (last 24 hours): Temp Pulse Resp BP Pulse Ox 97.4 F L 85 16 106/62 100 04/13/18 08:00 04/12/18 22:00 04/12/18 22:00 04/12/18 22:00 04/13/18 06:00 Intake and Output: 04/13/18 04/13/18 11:59 23:59 Intake Total 1300 Output Total 700 Balance 600 - Medications Medications: Current Medications Ascorbic Acid (Vitamin C 500 Mg Tab) 500 mg PO Q12H [facility] Last Admin: 04/13/18 09:27 Dose: 500 mg Hydrocortisone Sodium Succinate (Solu-Cortef) 100 mg IV Q8H [facility] Last Admin: 04/13/18 02:10 Dose: 100 mg Potassium Chloride 40 meq/ (Dextrose) 1,020 mls @ 60 mls/hr IV .Q17H [facility] Last Admin: 04/12/18 23:40 Dose: 60 mls/hr Midodrine (Proamatine) 2.5 mg PO TID [facility] Last Admin: 04/13/18 09:26 Dose: 2.5 mg Multivitamins/Vitamin C (Multi-Delyn Liquid) 5 ml PO DAILY [facility] Pantoprazole Sodium (Protonix Susp) 40 mg PO 0600 [facility] Last Admin: 04/13/18 05:05 Dose: 40 mg Potassium Chloride (Potassium Chloride Oral Soln) 20 meq GT Q8H [facility] Last Admin: 04/13/18 09:31 Dose: 20 meq Potassium Phos/Sodium Phos (Neutra-Phos) 1 pkt GT TID [facility] Last Admin: 04/13/18 09:26 Dose: 1 pkt Zinc Sulfate (Zinc Sulfate 220 Mg Cap) 220 mg PO DAILY [facility] Last Admin: 04/13/18 09:27 Dose: 220 mg - Labs Labs: 04/08/18 06:07 04/13/18 06:10 PT 16.0 SECONDS (9.7-12.2) H 03/22/18 16:02 INR 1.5 03/22/18 16:02 APTT 31 SECONDS (21-34) 03/22/18 16:02
[2018-04-13] MEDS: Multiple Vitamins Oral Solution PO SCH (12:38)
--- NOTE | 2018-04-13 18:59 | CP.PCM.PN ---
Subjective - Date & Time of Evaluation Date of Evaluation: 04/13/18 Time of Evaluation: 18:56 - Subjective Subjective: PT ON VENT. ROS ; UNOBTAINABLE Objective - Vital Signs/Intake and Output Vital Signs (last 24 hours): Temp Pulse Resp BP Pulse Ox 97.2 F L 83 20 127/72 95 04/13/18 16:00 04/13/18 16:00 04/13/18 16:00 04/13/18 16:00 04/13/18 12:00 Intake and Output: 04/13/18 04/13/18 06:59 18:59 Intake Total 1300 1200 Output Total 700 1100 Balance 600 100 - Medications Medications: Current Medications Ascorbic Acid (Vitamin C 500 Mg Tab) 500 mg PO Q12H [facility] Last Admin: 04/13/18 09:27 Dose: 500 mg Hydrocortisone Sodium Succinate (Solu-Cortef) 100 mg IV Q8H [facility] Last Admin: 04/13/18 17:30 Dose: 100 mg Potassium Chloride 40 meq/ (Dextrose) 1,020 mls @ 60 mls/hr IV .Q17H [facility] Last Admin: 04/13/18 17:04 Dose: Not Given Midodrine (Proamatine) 2.5 mg PO TID [facility] Last Admin: 04/13/18 17:07 Dose: 2.5 mg Multivitamins/Vitamin C (Multi-Delyn Liquid) 5 ml PO DAILY [facility] Last Admin: 04/13/18 12:38 Dose: 5 ml Pantoprazole Sodium (Protonix Susp) 40 mg PO 0600 [facility] Last Admin: 04/13/18 05:05 Dose: 40 mg Potassium Chloride (Potassium Chloride Oral Soln) 20 meq GT Q8H [facility] Last Admin: 04/13/18 17:15 Dose: 20 meq Potassium Phos/Sodium Phos (Neutra-Phos) 1 pkt GT TID [facility] Last Admin: 04/13/18 17:06 Dose: 1 pkt Zinc Sulfate (Zinc Sulfate 220 Mg Cap) 220 mg PO DAILY [facility] Last Admin: 04/13/18 09:27 Dose: 220 mg - Labs Labs: 04/08/18 06:07 04/13/18 06:10 PT 16.0 SECONDS (9.7-12.2) H 03/22/18 16:02 INR 1.5 03/22/18 16:02 APTT 31 SECONDS (21-34) 03/22/18 16:02 - Constitutional Appears: Cachectic, Chronically Ill - Head Exam Head Exam: ATRAUMATIC, NORMOCEPHALIC - Eye Exam Eye Exam: EOMI, Normal appearance - ENT Exam ENT Exam: Mucous Membranes Moist - Neck Exam Additional comments: TRACH - Respiratory Exam Respiratory Exam: Rhonchi. absent: Respiratory Distress - Cardiovascular Exam Cardiovascular Exam: RRR, +S1, +S2 - GI/Abdominal Exam GI & Abdominal Exam: Soft Additional comments: PEG - Rectal Exam Rectal Exam: Deferred - Extremities Exam Extremities Exam: absent: Pedal Edema - Neurological Exam Neurological Exam: Awake. absent: Oriented x3 - Skin Skin Exam: absent: Rash Assessment and Plan (1) Septic shock Status: Acute (2) Altered mental status Status: Acute (3) Pneumonia Status: Acute (4) Respiratory failure requiring intubation Status: Acute (5) COPD exacerbation Status: Acute (6) Cachexia Status: Acute (7) Cholelithiases Status: Acute (8) Alzheimer disease Status: Chronic - Assessment and Plan (Free Text) Assessment: RESP STATUS NO SIG CHANGE. CONT AC SUPPORT. PULM TOILE., MONITOR O2 SAT. PS TRIALS. CXR REVIEWED. AFEBRILE ON AB. FEEDINGS VIA PEG. PROG POOR. PENDING TRANSFER TO [facility]. DISCUSSED WITH STAFF AT LENGTH. TIME SPENT 45 MIN.
[2018-04-14] MEDS: Potassium Chloride 20 mEq/15 ml LIQ UD GT SCH ×3 (01:46→18:18)
[2018-04-14] MEDS: Pantoprazole 40 mg Susp UD PO SCH (05:57)
[2018-04-14 06:27] LABS: ALB/GLOB RATIO 1.1 (1.0-2.1); ALBUMIN 2.7 g/dL (3.5-5.0); ALT/SGPT 38 U/L (21-72); AST/SGOT 56 U/L (17-59); BLOOD UREA NITROGEN 12 mg/dL (9-20); CALCIUM 7.5 mg/dl (8.6-10.4); GFR NON-AFRICAN AMERICAN > 60
[2018-04-14] MEDS: Potassium & Sodium Phosphate GT SCH ×3 (10:09→18:17)
[2018-04-14] MEDS: Multiple Vitamins Oral Solution PO SCH (10:10)
--- NOTE | 2018-04-14 11:38 | CP.PCM.PN ---
Subjective - Date & Time of Evaluation Date of Evaluation: 04/14/18 Time of Evaluation: 11:38 - Subjective Subjective: AFEBRILE. NO NEW EVENTS. ON VENT +VE TRACH OFF IV ABX . PT FOR LTAC TODAY ROS; NA. Objective - Vital Signs/Intake and Output Vital Signs (last 24 hours): Temp Pulse Resp BP Pulse Ox 97.2 F L 87 24 110/71 97 04/14/18 08:00 04/14/18 08:00 04/14/18 08:00 04/14/18 08:00 04/14/18 08:00 Intake and Output: 04/14/18 04/14/18 06:59 18:59 Intake Total 1500 Output Total 1140 Balance 360 - Medications Medications: Current Medications Ascorbic Acid (Vitamin C 500 Mg Tab) 500 mg PO Q12H [facility] Last Admin: 04/14/18 10:08 Dose: 500 mg Hydrocortisone Sodium Succinate (Solu-Cortef) 100 mg IV Q8H [facility] Last Admin: 04/14/18 10:10 Dose: 100 mg Potassium Chloride 40 meq/ (Dextrose) 1,020 mls @ 60 mls/hr IV .Q17H [facility] Last Admin: 04/14/18 08:48 Dose: 60 mls/hr Midodrine (Proamatine) 2.5 mg PO TID [facility] Last Admin: 04/14/18 10:08 Dose: 2.5 mg Multivitamins/Vitamin C (Multi-Delyn Liquid) 5 ml PO DAILY [facility] Last Admin: 04/14/18 10:10 Dose: 5 ml Pantoprazole Sodium (Protonix Susp) 40 mg PO 0600 [facility] Last Admin: 04/14/18 05:57 Dose: 40 mg Potassium Chloride (Potassium Chloride Oral Soln) 20 meq GT Q8H [facility] Last Admin: 04/14/18 10:12 Dose: 20 meq Potassium Phos/Sodium Phos (Neutra-Phos) 1 pkt GT TID [facility] Last Admin: 04/14/18 10:09 Dose: 1 pkt Zinc Sulfate (Zinc Sulfate 220 Mg Cap) 220 mg PO DAILY [facility] Last Admin: 04/14/18 10:09 Dose: 220 mg - Labs Labs: 04/08/18 06:07 04/14/18 06:05 PT 16.0 SECONDS (9.7-12.2) H 03/22/18 16:02 INR 1.5 03/22/18 16:02 APTT 31 SECONDS (21-34) 03/22/18 16:02 - Constitutional Appears: No Acute Distress, Cachectic, Chronically Ill - Head Exam Head Exam: NORMAL INSPECTION - Eye Exam Eye Exam: EOMI, PERRL - ENT Exam ENT Exam: Normal Oropharynx Additional comments: ON VENT +VE TRACH - Neck Exam Neck Exam: Normal Inspection - Respiratory Exam Respiratory Exam: Decreased Breath Sounds - Cardiovascular Exam Cardiovascular Exam: REGULAR RHYTHM, +S1, +S2 - GI/Abdominal Exam GI & Abdominal Exam: Soft, Normal Bowel Sounds (+VE PEG.) - Extremities Exam Extremities Exam: Normal Capillary Refill. absent: Calf Tenderness, Pedal Edema - Neurological Exam Neurological Exam: Awake, CN II-XII Intact Additional comments: RT SIDED WEAKNESS - Psychiatric Exam Psychiatric exam: Flat Affect - Skin Skin Exam: Normal Color, Warm Assessment and Plan (1) Respiratory failure requiring intubation Status: Acute (2) Sepsis associated hypotension Status: Acute (3) Altered mental status Status: Acute (4) Pneumonia Status: Acute (5) Abdominal pain Status: Acute (6) Cholelithiases Status: Acute - Assessment and Plan (Free Text) Plan: OFF IV ABX . PT FOR LTAC TODAY.
--- NOTE | 2018-04-14 11:44 | CP.PCM.PN ---
Subjective - Date & Time of Evaluation Date of Evaluation: 04/13/18 Time of Evaluation: 19:00 - Subjective Subjective: Patient on vent through tracheostomy Vital signs are stable Physical examination is unchanged Potassium is now 2.8 as patient is receiving both IV and through PEG potassium supplement Awaiting transfer to [facility] Objective - Vital Signs/Intake and Output Vital Signs (last 24 hours): Temp Pulse Resp BP Pulse Ox 97.2 F L 87 24 110/71 97 04/14/18 08:00 04/14/18 08:00 04/14/18 08:00 04/14/18 08:00 04/14/18 08:00 Intake and Output: 04/13/18 04/14/18 23:59 11:59 Intake Total 1200 1500 Output Total 1100 1140 Balance 100 360 - Medications Medications: Current Medications Ascorbic Acid (Vitamin C 500 Mg Tab) 500 mg PO Q12H [facility] Last Admin: 04/14/18 10:08 Dose: 500 mg Hydrocortisone Sodium Succinate (Solu-Cortef) 100 mg IV Q8H [facility] Last Admin: 04/14/18 10:10 Dose: 100 mg Midodrine (Proamatine) 2.5 mg PO TID [facility] Last Admin: 04/14/18 10:08 Dose: 2.5 mg Multivitamins/Vitamin C (Multi-Delyn Liquid) 5 ml PO DAILY [facility] Last Admin: 04/14/18 10:10 Dose: 5 ml Pantoprazole Sodium (Protonix Susp) 40 mg PO 0600 [facility] [place] Last Admin: 04/14/18 05:57 Dose: 40 mg Potassium Chloride (Potassium Chloride Oral Soln) 20 meq GT Q8H [facility] [place] Last Admin: 04/14/18 10:12 Dose: 20 meq Potassium Phos/Sodium Phos (Neutra-Phos) 1 pkt GT TID [facility] [place] Last Admin: 04/14/18 10:09 Dose: 1 pkt Zinc Sulfate (Zinc Sulfate 220 Mg Cap) 220 mg PO DAILY [facility] [place] Last Admin: 04/14/18 10:09 Dose: 220 mg - Labs Labs: 04/08/18 06:07 04/14/18 06:05 PT 16.0 SECONDS (9.7-12.2) H 03/22/18 16:02 INR 1.5 03/22/18 16:02 APTT 31 SECONDS (21-34) 03/22/18 16:02
[2018-04-14 12:22] VITALS: O2SAT 100
[2018-04-14] MEDS: Magnesium Oxide 400 mg Tab UD PO SCH ×2 (12:32→18:16)
--- NOTE | 2018-04-14 19:21 | CP.PCM.PN ---
Subjective - Date & Time of Evaluation Date of Evaluation: 04/14/18 Time of Evaluation: 19:18 - Subjective Subjective: PT ON VENT VIA TRACH. ROS; UNOBTAINABLE Objective - Vital Signs/Intake and Output Vital Signs (last 24 hours): Temp Pulse Resp BP Pulse Ox 97.4 F L 87 16 99/59 L 100 04/14/18 16:00 04/14/18 16:00 04/14/18 16:00 04/14/18 16:00 04/14/18 16:00 Intake and Output: 04/14/18 04/15/18 18:59 06:59 Intake Total 1300 Output Total 1475 Balance -175 - Medications Medications: Current Medications Ascorbic Acid (Vitamin C 500 Mg Tab) 500 mg PO Q12H [facility] Last Admin: 04/14/18 10:08 Dose: 500 mg Hydrocortisone Sodium Succinate (Solu-Cortef) 100 mg IV Q8H [facility] Last Admin: 04/14/18 18:17 Dose: 100 mg Potassium Chloride 60 meq/ (Dextrose) 1,030 mls @ 60 mls/hr IV .[id number] [facility] Last Admin: 04/14/18 13:24 Dose: 60 mls/hr Magnesium Oxide (Mag-Ox) 400 mg PO BID [facility] Last Admin: 04/14/18 18:16 Dose: 400 mg Midodrine (Proamatine) 2.5 mg PO TID [facility] Last Admin: 04/14/18 18:17 Dose: 2.5 mg Multivitamins/Vitamin C (Multi-Delyn Liquid) 5 ml PO DAILY [facility] Last Admin: 04/14/18 10:10 Dose: 5 ml Pantoprazole Sodium (Protonix Susp) 40 mg PO 0600 [facility] Last Admin: 04/14/18 05:57 Dose: 40 mg Potassium Chloride (Potassium Chloride Oral Soln) 20 meq GT Q8H [facility] Last Admin: 04/14/18 18:18 Dose: 20 meq Potassium Phos/Sodium Phos (Neutra-Phos) 1 pkt GT TID [facility] Last Admin: 04/14/18 18:17 Dose: 1 pkt Zinc Sulfate (Zinc Sulfate 220 Mg Cap) 220 mg PO DAILY [facility] Last Admin: 04/14/18 10:09 Dose: 220 mg - Labs Labs: 04/08/18 06:07 04/14/18 06:05 PT 16.0 SECONDS (9.7-12.2) H 03/22/18 16:02 INR 1.5 03/22/18 16:02 APTT 31 SECONDS (21-34) 03/22/18 16:02 - Constitutional Appears: Cachectic, Chronically Ill - Head Exam Head Exam: ATRAUMATIC, NORMOCEPHALIC - Eye Exam Eye Exam: EOMI, Normal appearance - ENT Exam ENT Exam: Mucous Membranes Moist - Neck Exam Additional comments: TRACH - Respiratory Exam Respiratory Exam: Rhonchi. absent: Respiratory Distress - Cardiovascular Exam Cardiovascular Exam: RRR, +S1, +S2 - GI/Abdominal Exam GI & Abdominal Exam: Soft Additional comments: PEG - Rectal Exam Rectal Exam: Deferred - Extremities Exam Extremities Exam: absent: Pedal Edema - Back Exam Back Exam: absent: rash noted - Neurological Exam Neurological Exam: Awake. absent: Oriented x3 - Skin Skin Exam: absent: Rash Assessment and Plan (1) Septic shock Status: Acute (2) Altered mental status Status: Acute (3) Pneumonia Status: Acute (4) Respiratory failure requiring intubation Status: Acute (5) COPD exacerbation Status: Acute (6) Cachexia Status: Acute (7) Cholelithiases Status: Acute (8) Alzheimer disease Status: Chronic - Assessment and Plan (Free Text) Assessment: RESP STATUS NO SIG CHANGE., CONT AC SUPPORT, PULM TOILET.,MONITOR O2 SAT. WEANING TRIALS. CXR REVIEWED. ON IV STEROIDS. ON MIDODRINE. S/P IV MERREM COURSE. TOLERATING PEG FEEDINGS. PENDING TRANSFER TO [facility] TODAY. PROG POOR. DISCUSSED WITH STAFF AT LENGTH AND FAMILY AT BEDSIDE. TIME SPENT 45 MIN.
[2018-04-14 20:03] VITALS: BP 103/64; PULSE 84; RESP 17; TEMP 98.2
--- NOTE | 2018-04-15 12:14 | CP.PCM.DIS ---
Provider - Provider Date of Admission: 03/01/18 19:47 Attending physician: Cornelia Mancera MD Consults: 03/21/18 15:18 General Surgery Consult Routine Comment: Consulting Provider: Villa Woodard Consulting Physician: Villa Woodard Reason for Consult: tracheostomy and peg tube; END stage COPD 03/31/18 11:49 Discharge Planning [Case Management Referral] Routine Comment: Physician Instructions: Please arrange for transfer to [facility] Reason For Exam: Reason for Referral: Discharge Planning 03/02/18 06:26 Wound Care [Nursing Referral for Wound Care] Routine Comment: Physician Instructions: Reason For Exam: excoriated & reddened buttocks,groin,perineal area 03/02/18 12:35 Infectious Disease Consult Routine Comment: Consulting Provider: Rehan Dasilva Consulting Physician: Rehan Dasilva Reason for Consult: sepsis Pulmonology Consult Routine Comment: Consulting Provider: Alo Reyes Consulting Physician: Alo Reyes Reason for Consult: resp. failure 03/05/18 10:08 Nephrology Consult Routine Comment: Consulting Provider: Edwige Sanchez Consulting Physician: Edwige Sanchez Reason for Consult: renal failure 03/13/18 09:11 Palliative Care Consult Routine Comment: Consulting Provider: Brittany Booker Physician Instructions: Reason For Exam: goals of care Time Spent in preparation of Discharge (in minutes): 45 Hospital Course - Lab Results Lab Results: Micro Results 04/08/18 13:05 Blood-Venous Blood Culture - Final NO GROWTH AFTER 5 DAYS 04/08/18 13:05 Blood-Venous Gram Stain - Final TEST NOT PERFORMED 04/08/18 12:40 Blood-Venous Blood Culture - Final Coagulase Neg Staphylococcus 04/08/18 12:40 Blood-Venous Gram Stain - Final 04/08/18 12:40 Trachasp Gram Stain - Final 04/08/18 12:40 Trachasp Sputum Culture - Final NORMAL ORAL CHELSY 03/04/18 05:50 Blood-Thru Central Line Blood Culture - Final NO GROWTH AFTER 5 DAYS 03/04/18 05:50 Blood-Thru Central Line Blood Culture - Final NO GROWTH AFTER 5 DAYS 03/28/18 14:22 Trachasp Gram Stain - Final 03/28/18 14:22 Trachasp Sputum Culture - Final NORMAL ORAL CHELSY 03/19/18 21:05 Blood-Thru Central Line Blood Culture - Final NO GROWTH AFTER 5 DAYS 03/19/18 21:05 Blood-Thru Central Line Gram Stain - Final TEST NOT PERFORMED 03/19/18 21:05 Blood-Thru Central Line Blood Culture - Final NO GROWTH AFTER 5 DAYS 03/19/18 21:05 Blood-Thru Central Line Gram Stain - Final TEST NOT PERFORMED 03/19/18 20:35 Trachasp Gram Stain - Final 03/19/18 20:35 Trachasp Sputum Culture - Final NORMAL ORAL CHELSY 03/19/18 19:26 Nose MRSA Culture (Admit) - Final MRSA NOT DETECTED 03/19/18 19:26 Urine,Catheterized Urine Culture - Final No Growth (<1,000 CFU/ML) 03/18/18 20:36 Naris MRSA Culture - Final MRSA NOT DETECTED 03/12/18 12:34 Trachasp Gram Stain - Final 03/12/18 12:34 Trachasp Sputum Culture - Final Yeast Species 03/01/18 19:09 Blood Blood Culture - Final NO GROWTH AFTER 5 DAYS 03/01/18 19:09 Blood Gram Stain - Final TEST NOT PERFORMED 03/01/18 19:09 Blood Blood Culture - Final NO GROWTH AFTER 5 DAYS 03/01/18 19:09 Blood Gram Stain - Final TEST NOT PERFORMED 03/02/18 00:20 Sputum Gram Stain - Final 03/02/18 00:20 Sputum Sputum Culture - Final Escherichia Coli Yeast Species 03/02/18 00:19 Naris MRSA Culture (Admit) - Final MRSA NOT DETECTED 03/01/18 20:39 Urine,Catheterized Urine Culture - Final No Growth (<1,000 CFU/ML) Most Recent Lab Values WBC 4.4 K/uL (4.8-10.8) L 04/08/18 06:07 RBC 3.04 Mil/uL (4.40-5.90) L 04/08/18 06:07 Hgb 9.0 g/dL (12.0-18.0) L 04/08/18 06:07 Hct 27.3 % (35.0-51.0) L 04/08/18 06:07 MCV 89.8 fL (80.0-94.0) 04/08/18 06:07 MCH 29.5 pg (27.0-31.0) 04/08/18 06:07 MCHC 32.8 g/dL (33.0-37.0) L 04/08/18 06:07 RDW 18.1 % (11.5-14.5) H 04/08/18 06:07 Plt Count 292 K/uL (130-400) 04/08/18 06:07 MPV 8.4 fL (7.2-11.7) 04/08/18 06:07 Neut % (Auto) 82.5 % (50.0-75.0) H 04/08/18 06:07 Lymph % (Auto) 13.1 % (20.0-40.0) L 04/08/18 06:07 [place] % (Auto) 4.4 % (0.0-10.0) 04/08/18 06:07 Eos % (Auto) 0.0 % (0.0-4.0) 04/08/18 06:07 Baso % (Auto) 0.0 % (0.0-2.0) 04/08/18 06:07 Neut # (Auto) 3.7 K/uL (1.8-7.0) 04/08/18 06:07 Lymph # (Auto) 0.6 K/uL (1.0-4.3) L 04/08/18 06:07 [place] # (Auto) 0.2 K/uL (0.0-0.8) 04/08/18 06:07 Eos # (Auto) 0.0 K/uL (0.0-0.7) 04/08/18 06:07 Baso # (Auto) 0.0 K/uL (0.0-0.2) 04/08/18 06:07 Neutrophils % (Manual) 61 % (50-75) 04/08/18 06:07 Band Neutrophils % 16 % (0-2) H* 04/08/18 06:07 Lymphocytes % (Manual) 10 % (20-40) L 04/08/18 06:07 Reactive Lymphs % 1 % (0-0) H 04/08/18 06:07 Monocytes % (Manual) 11 % (0-10) H 04/08/18 06:07 Eosinophils % (Manual) 1 % (0-4) 03/08/18 06:21 Metamyelocytes % 1 % (0-0) H 04/06/18 06:18 Myelocytes % 1 % (0-0) H 04/08/18 06:07 Nucleated RBC % 3 % (0-0) H 03/28/18 06:21 Toxic Granulation Present 04/06/18 06:18 Platelet Estimate Normal (NORMAL) 04/08/18 06:07 Large Platelets Present 04/06/18 06:18 Giant Platelets Present 03/28/18 06:21 Polychromasia Slight 04/06/18 06:18 Hypochromasia (manual) Slight 04/06/18 06:18 Poikilocytosis (manual Slight 04/06/18 06:18 Basophilic Stippling Slight 03/15/18 05:38 Anisocytosis (manual) Slight 04/08/18 06:07 Microcytosis (manual) Slight 04/01/18 06:05 Macrocytosis (manual) Slight 03/27/18 06:26 Target Cells Slight 03/28/18 06:21 Tear Drop Cells Slight 04/02/18 05:47 Ovalocytes Slight 04/06/18 06:18 Stomatocytes Slight 03/14/18 06:10 Jay Cells Slight 04/06/18 06:18 Schistocytes Slight 04/06/18 06:18 PT 16.0 SECONDS (9.7-12.2) H 03/22/18 16:02 INR 1.5 03/22/18 16:02 APTT 31 SECONDS (21-34) 03/22/18 16:02 Puncture Site Lf 03/31/18 09:28 pCO2 36 mm/Hg (35-45) 03/31/18 09:28 pO2 110 mm/Hg (80-100) H 03/31/18 09:28 HCO3 32.4 mmol/L (21-28) H 03/31/18 09:28 ABG pH 7.56 (7.35-7.45) H 03/31/18 09:28 ABG Total CO2 33.3 mmol/L (22-28) H 03/31/18 09:28 ABG O2 Saturation 99.1 % (95-98) H 03/31/18 09:28 ABG Base Excess 9.5 mmol/L (-2.0-3.0) H 03/31/18 09:28 ABG Hemoglobin 7.9 g/dL (11.7-17.4) L 03/27/18 05:17 ABG Carboxyhemoglobin 2.5 % (0.5-1.5) H 03/27/18 05:17 POC ABG HHb (Measured) 0.4 % (0.0-5.0) 03/27/18 05:17 ABG Methemoglobin 0.8 % (0.0-3.0) 03/27/18 05:17 Bereket Test Na 03/31/18 09:28 ABG Potassium 2.2 mmol/L (3.6-5.2) L* 03/31/18 09:28 A-a O2 Difference 130.0 mm/Hg 03/31/18 09:28 Respiratory Index 1.2 03/31/18 09:28 Hgb O2 Saturation 96.4 % (95.0-98.0) 03/27/18 05:17 Sodium 139.0 mmol/l (132-148) 03/31/18 09:28 Chloride 105.0 mmol/L (98-107) 03/31/18 09:28 Glucose 102 mg/dl (75-110) 03/31/18 09:28 Lactate 1.5 mmol/L (0.7-2.1) 03/31/18 09:28 Vent Mode Prvc 03/27/18 05:17 Mechanical Rate 16 03/31/18 09:28 FiO2 40.0 % 03/31/18 09:28 Tidal Volume 400 03/31/18 09:28 PEEP 5 03/31/18 09:28 Crit Value Called To Dr santiago /kristy wright 03/31/18 09:28 Crit Value Called By Jhonny valenzuela crt 03/31/18 09:28 Crit Value Read Back Y 03/31/18 09:28 Blood Gas Notified Time 935 03/31/18 09:28 Sodium 133 mmol/L (132-148) 04/14/18 06:05 Potassium 2.8 mmol/L (3.6-5.2) L 04/14/18 06:05 Chloride 96 mmol/L (98-107) L 04/14/18 06:05 Carbon Dioxide 33 mmol/L (22-30) H 04/14/18 06:05 Anion Gap 7 (10-20) L 04/14/18 06:05 BUN 12 mg/dL (9-20) 04/14/18 06:05 Creatinine 0.2 mg/dL (0.8-1.5) L 04/14/18 06:05 Est GFR ( Amer) > 60 04/14/18 06:05 Est GFR (Non-Af Amer) > 60 04/14/18 06:05 POC Glucose (mg/dL) 120 mg/dL (65-110) H 04/14/18 17:46 Random Glucose 119 mg/dL (75-110) H 04/14/18 06:05 Serum Osmolality 292 mosm/kg (272-300) 03/10/18 17:05 Lactic Acid 1.3 mmol/L (0.7-2.1) 03/19/18 22:22 Calcium 7.5 mg/dl (8.6-10.4) L 04/14/18 06:05 Phosphorus 3.3 mg/dL (2.5-4.5) 04/06/18 06:18 Magnesium 1.4 mg/dL (1.6-2.3) L 04/14/18 06:05 Total Bilirubin 0.7 mg/dL (0.2-1.3) 04/14/18 06:05 AST 56 U/L (17-59) 04/14/18 06:05 ALT 38 U/L (21-72) 04/14/18 06:05 Alkaline Phosphatase 227 U/L (38-126) H 04/14/18 06:05 Total Creatine Kinase 41 U/L (55-170) L 03/19/18 21:05 CK-MB (Mass) 3.31 ng/mL (0.0-3.38) 03/19/18 21:05 Troponin I 0.1900 ng/mL (0.00-0.120) H* 03/20/18 10:51 Total Protein 5.3 g/dL (6.3-8.3) L 04/14/18 06:05 Albumin 2.7 g/dL (3.5-5.0) L 04/14/18 06:05 Globulin 2.6 gm/dL (2.2-3.9) 04/14/18 06:05 Albumin/Globulin Ratio 1.1 (1.0-2.1) 04/14/18 06:05 25-OH Vitamin D Total 21.2 NG/ML (30.0-100.0) L 04/03/18 05:21 Procalcitonin 0.12 NG/ML (0.19-0.49) L 03/19/18 18:00 Thyroxine (T4) 4.99 ug/dL (5.5-11.0) L 03/07/18 06:21 Total T3 1.09 nmol/L (1.49-2.60) L 03/07/18 06:21 TSH 3rd Generation 0.72 mIU/L (0.46-4.68) 03/07/18 06:21 Cortisol AM Sample 12.2 ug/dL (4.46-22.7) 03/07/18 06:21 Arterial Blood Potassium 2.2 mmol/L (3.6-5.2) L* 03/31/18 09:28 Urine Color Yellow (YELLOW) 03/19/18 19:26 Urine Clarity Hazy (Clear) 03/19/18 19: Urine pH 7.0 (5.0-8.0) 03/19/18 19:26 Ur Specific [place] 1.012 (1.003-1.030) 03/19/18 19:26 Urine Protein 2+ mg/dL (NEGATIVE) H 03/19/18 19:26 Urine Glucose (UA) 1+ mg/dL (Normal) H 03/19/18 19: Urine Ketones Negative mg/dL (NEGATIVE) 03/19/18 19:26 Urine Blood 1+ (NEGATIVE) H 03/19/18 19:26 Urine Nitrate Negative (NEGATIVE) 03/19/18 19: Urine Bilirubin Negative (NEGATIVE) 03/19/18 19:26 Urine Urobilinogen Normal mg/dL (0.2-1.0) 03/19/18 19:26 Ur Leukocyte Esterase Neg Mehrdad/uL (Negative) 03/19/18 19:26 Urine WBC (Auto) 5 /hpf (0-5) 03/19/18 19:26 Urine RBC (Auto) 5 /hpf (0-3) H 03/19/18 19:26 Ur Squamous Epith Cells < 1 /hpf (0-5) 03/19/18 19:26 Urine Bacteria Rare (<OCC) 03/19/18 19:26 Hyaline Casts 3-5 /lpf (0-2) H 03/19/18 19:26 Granular Casts (Auto) 4 /lpf (0-1) 03/01/18 20:39 Urine Osmolality 320 mosm/kg (300-1000) 03/10/18 17:05 Ur Random Creatinine 7.7 mg/dL 03/05/18 14:22 Ur Random Sodium 75 mmol/L 03/10/18 17:05 Ur Random Potassium 28.7 mmol/L 03/10/18 17:05 Ur Random Phosphorus < 5.5 mg/dL 03/05/18 14:22 Ur Random Urea Nitrogn 280 mg/dL 03/10/18 17:05 Ur Random Glucose < 20 mg/dL 03/10/18 17:05 Vancomycin Trough < 5.0 ug/mL (5.0-10.0) L 03/05/18 13:00 Random Vancomycin < 5.0 ug/mL 03/20/18 22:12 Influenza Typ A,B (EIA) Negative for flu a/b (NEGATIVE) 03/02/18 00:25 Blood Type O POSITIVE 03/27/18 07:19 Antibody Screen Negative 03/27/18 07:19 - Hospital Course Hospital Course: 72 years old male readmitted after respiratory failure. 72-year-old male originally was admitted in [facility] for acute cholecystitis and bronchopneumonia. Patient was treated with IV antibiotics bronchodilators and surgical ID and pulmonary consults were obtained. Patient improved on the therapy and surgical team was not able to do any surgical intervention because of the patient's poor respiratory status. Surgical opinion was that the patient is improving and does not need any further surgical intervention. Patient was treated with IV antibiotic bronchodilators and oxygen and improved on this therapy. The family refused rehab on advising them on multiple occasions. Patient was stable and was discharged home with PICC line for IV antibiotic home oxygen therapy visiting nurse and homemaker. As per the patient had a peaceful night with no complaints. In the morning patient had his breakfast and have was not in apparently any distress. Patient was evaluated by the visiting nurse and the IV infusion therapy personnel. Patient was not any acute distress. 2 hours prior to admission patient became lethargic and not responding and called the paramedics. Patient was intubated on the field and given ketamine. Patient was brought to the emergency room chest x-ray showed unchanged pneumonia. Patient was also not responding to painful stimuli. Currently patient is to be transferred to ICU for further management. Review of systems was not possible. Physical finding. Patient not responding to painful stimuli blood pressure is 102/80 mmHg pulse is 112. Patient is on a respirator. The lung shows bilateral wheezing with wet rales Heart S1-S2 normal tachycardia. Abdomen is soft no distention. Extremities shows no edema. Assessment Progression of the bronchopulmonary pneumonia with sepsis. Plan ICU management ID and pulmonary evaluation. Discussed extensively with the patient's prognosis and the events of the day. Patient was admitted in ICU intubated on vent and pulmonary consult was obtained. ID evaluation was also noted Patient was given IV antibiotics and ICU protocol went control. On 2 occasions patient was extubated and reintubated in under 24 hours because the patient is respiratory fatigue. Patient continued to be intubated and on respirator. After discussion with the family patient underwent a tracheostomy and PEG insertion. Patient also had hypokalemia which required by mouth through patent and IV potassium. Patient currently is ventilator dependent through the tracheostomy and was transferred [facility] further treatment. Discharge Exam - Head Exam Head Exam: ATRAUMATIC, NORMOCEPHALIC Discharge Plan - Follow Up Plan Condition: CRITICAL Disposition: [facility] Instructions: Pneumonia, Adult (DC), Respiratory Distress Syndrome, Adult (DC)
== END 2018-04-14 20:05 | DRG 4 ==
LOC: C.ER 18:35 → C.9I 19:47 → C.6T 03-18 19:51 → C.9I 03-19 17:13
PROVIDERS: ADMIT Internal Medicine Cardiovascular Disease; ATTEND Internal Medicine Cardiovascular Disease
PROC: 5A1955Z Respiratory Ventilation, Greater than 96 Consecutive Hours (ICD-10-PCS; 2018-03-01)
PROC: 05H433Z Insertion of Infusion Device into Left Innominate Vein, Percutaneous Approach (ICD-10-PCS; 2018-03-04)
PROC: 0BH17EZ Insertion of Endotracheal Airway into Trachea, Via Natural or Artificial Opening (ICD-10-PCS; 2018-03-19)
PROC: 5A1955Z Respiratory Ventilation, Greater than 96 Consecutive Hours (ICD-10-PCS; 2018-03-19)
PROC: 02H633Z Insertion of Infusion Device into Right Atrium, Percutaneous Approach (ICD-10-PCS; 2018-03-19)
PROC: 5A1213Z Performance of Cardiac Pacing, Intermittent (ICD-10-PCS; 2018-03-19)
PROC: 0B110F4 Bypass Trachea to Cutaneous with Tracheostomy Device, Open Approach (ICD-10-PCS; principal; 2018-03-22)
PROC: 0DH68UZ Insertion of Feeding Device into Stomach, Via Natural or Artificial Opening Endoscopic (ICD-10-PCS; 2018-03-22)
PROC: 02HV33Z Insertion of Infusion Device into Superior Vena Cava, Percutaneous Approach (ICD-10-PCS; 2018-03-27)
PROC: 30233N1 Transfusion of Nonautologous Red Blood Cells into Peripheral Vein, Percutaneous Approach (ICD-10-PCS; 2018-03-27)
DX: A41.9 Sepsis, unspecified organism (principal); J18.0 Bronchopneumonia, unspecified organism; J96.22 Acute and chronic respiratory failure with hypercapnia; J96.21 Acute and chronic respiratory failure with hypoxia; R65.21 Severe sepsis with septic shock; J69.0 Pneumonitis due to inhalation of food and vomit; R09.2 Respiratory arrest; R64 Cachexia; J47.0 Bronchiectasis with acute lower respiratory infection; J93.9 Pneumothorax, unspecified; J84.9 Interstitial pulmonary disease, unspecified; K80.00 Calculus of gallbladder with acute cholecystitis without obstruction; J98.11 Atelectasis; N39.0 Urinary tract infection, site not specified; E63.9 Nutritional deficiency, unspecified; E83.39 Other disorders of phosphorus metabolism; E87.6 Hypokalemia; I11.0 Hypertensive heart disease with heart failure; I50.9 Heart failure, unspecified; J43.9 Emphysema, unspecified; G30.9 Alzheimer's disease, unspecified; E83.42 Hypomagnesemia; E83.51 Hypocalcemia; F02.80 Dementia in other diseases classified elsewhere, unspecified severity, without behavioral disturbance, psychotic disturbance, mood disturbance, and anxiety; B96.89 Other specified bacterial agents as the cause of diseases classified elsewhere; R13.10 Dysphagia, unspecified; Z79.899 Other long term (current) drug therapy; Z87.01 Personal history of pneumonia (recurrent); Z87.891 Personal history of nicotine dependence